=== PATIENT | male | born 1985 | race Caucasian/White ===

== ENCOUNTER 2018-07-03 05:58 | Outpatient (CLI) | payer BC ==
[~2018-07-03] VITALS: Ht 188 cm; Wt 114.9 kg
[~2018-07-03 05:58] MED LIST: AMLO5TAB2 PO; ANTARA PO; ATR20T PO; INSU100I11 SQ; INSU100I16 SQ; MAGN400C PO; MYCO250C4 PO; SLIDING SCALE; TACROLIMUS PO; VALS320T8 PO
[2018-07-03] MEDS ORDERED: OMEG-179 PO (13:29)
[2018-07-03] MEDS ORDERED: MULT-35 PO (13:29)
[2018-07-03] MEDS ORDERED: MYCO250C4 PO (13:29)
[2018-07-03] MEDS ORDERED: INSU100I14 SQ (13:29)
[2018-07-03] MEDS ORDERED: AMLO5TAB9 PO (13:29)
[2018-07-03] MEDS ORDERED: INSU100I29 SQ (13:29)
[2018-07-03] MEDS ORDERED: TACR1CAP8 PO (13:29)
[2018-07-03] MEDS ORDERED: POLY17PO6 PO (13:29)
[2018-07-03] MEDS ORDERED: ATOR40TA70 PO (13:29)
== END 2018-07-03 13:30 | disposition home or self-care (01) ==
LOC: PREOP 05:58
PROVIDERS: ATTEND Surgery
DX: Z01.818 Encounter for other preprocedural examination (principal)

== ENCOUNTER 2018-07-09 09:39 | Day surgery (SDC) | payer BC ==
[~2018-07-09] VITALS: Ht 188 cm; Wt 114.9 kg
[~2018-07-09 09:39] MED LIST changes: +AMLO5TAB9 PO; +ATOR40TA70 PO; +INSU100I14 SQ; +INSU100I29 SQ; +MULT-35 PO; +OMEG-179 PO; +POLY17PO6 PO; +TACR1CAP8 PO
--- OUTSIDE RECORDS SUMMARY | 2018-07-09 09:41 | XMS REPORT | Continuity of Care Document ---
Author Author [facility] Organization [facility] Address Unknown Phone Unavailable Allergies Active Description Code Type Severity Reaction Onset Reported/Identified Relationship to Patient Clinical Status Yes No Known Drug Allergies [id number] Drug Allergy Unknown N/A 07/03/2018 Medications There is no data. Problems Date Dx Coded Attending Type Code Diagnosis Diagnosed By 11/02/2017 MICHEAL LOUIS Ot 571.8 CHRONIC LIVER DIS NEC 11/02/2017 MICHEAL LOUIS RIGGING MAN Ot 599.70 HEMATURIA, UNSPECIFIED 11/02/2017 MICHEAL LOUIS RIGGING MAN Ot 789.04 ABDOMINAL PAIN, LEFT LOWER QUADRANT 11/02/2017 MICHEAL LOUIS RIGGING MAN Ot V42.0 KIDNEY TRANSPLANT STATUS 07/03/2018 ALEXANDRIA CORTES, MATTHEW Esposito Ot Z01.818 ENCOUNTER FOR OTHER PREPROCEDURAL EXAMIN 07/04/2018 ALEX[place]RI[place] CORTES, MATTHEW Esposito Ot Z01.818 ENCOUNTER FOR OTHER PREPROCEDURAL EXAMIN 07/05/2018 MICHEAL LOUIS Ot 571.8 CHRONIC LIVER DIS NEC 07/05/2018 MICHEAL OLUISP Ot 599.70 HEMATURIA, UNSPECIFIED 07/05/2018 MICHEAL LOUIS RIGGING MAN Ot 789.04 ABDOMINAL PAIN, LEFT LOWER QUADRANT 07/05/2018 MICHEAL LOUIS RIGGING MAN Ot V42.0 KIDNEY TRANSPLANT STATUS Procedures There is no data. Results There is no data. Encounters ACCT No. Visit Date/Time Discharge Status Pt. Type Provider Facility Loc./Unit Complaint [id number] 07/03/2018 05:58:00 07/03/2018 13:30:00 DIS Outpatient MATTHEW IBRAHIM MD [facility] PREOP EGD [id number] 07/30/2013 11:34:00 07/30/2013 23:59:59 CLS Outpatient MICHEAL LOUIS [facility] RAD ABD PAIN [id number] 07/09/2018 11:15:00 PEN Preadmit A[place]RI[place] CORTES, MATTHEW Esposito [facility] ENDO R10.13/K21.0 06/201607/03/2018 10:43:02 07/03/2018 23:59:59 CLS Outpatient Galina Smith
--- NOTE | 2018-07-09 09:50 | Conscious Sedation/ASA ---
Conscious Sedation Pre-Proced Time 09:50 ASA Score 2 For ASA 3 and 4: Consider anesthesia and medical clearance. Also, for patients with a history of failed moderate sedation consider anesthesia. Airway Lungs Heart ASA score ASA 1: a normal healthy patient ASA 2: a patient with a mild systemic disease (mid diabetes, controlled hypertension, obesity ASA 3: a patient with a severe systemic disease that limits activity (angina , COPD, prior Myocardial infarction) ASA 4: a patient with an incapacitating disease that is a constant threat to life (CHF, renal failure) ASA 5: a moribund patient not expected to survive 24 hrs. (ruptured aneurysm) ASA 6: a declared brain patient whose organs are being harvested. For emergent operations, add the letter E after the classification Mallampati Classification Grade 1 Sedation Plan Discussed options with patient/fam The patient is an appropriate candidate to undergo the planned procedure, sedation, and anesthesia. The patient immediately re-assessed prior to indication. MATTHEW IBRAHIM MD Jul 09, 2018 09:50
--- NOTE | 2018-07-09 09:50 | History & Physicial ---
History of Present Illness History of Present Illness Reason for visit/HPI To undergo an upper endoscopy to investigate epigastric pain and symptoms of GERD Date of Admission 07/09/18 Date Seen by a Provider: Jul 09, 2018 Time Seen by a Provider: 09:48 I consulted on this patient on 07/09/18 09:48 Attending Physician Matthew Stout MD Admitting Physician Galina Smith DO Consult Allergies and Home Medications Allergies Coded Allergies: No Known Drug Allergies (Unverified , 07/03/18) Home Medications Amlodipine Besylate 5 Mg Tablet, 5 MG PO DAILY, (Reported) Atorvastatin Calcium 40 Mg Tablet, 40 MG PO HS, (Reported) Insulin Aspart 300 Units/3 Ml Solution, 0-12 UNITS SQ AC, (Reported) Insulin Detemir 100 Unit/1 Ml Insuln.pen, 80 UNIT SQ BID, (Reported) Multivitamin 1 Each Tablet, 1 EACH PO DAILY, (Reported) Mycophenolate Mofetil 250 Mg Capsule, 1,000 MG PO BID, (Reported) [place]-3S/Dha/Epa/Fish Oil 1 Each Capsule, 1 EACH PO DAILY, (Reported) Polyethylene Glycol 3350 17 Gm Powd.pack, 17 GM PO DAILY, (Reported) Tacrolimus 1 Mg Capsule, 2 MG PO BID, (Reported) Patient Home Medication List Home Medication List Reviewed: Yes Past Mxongeq-Hbrook-Zgsxpc Hx Patient Social History Marrital Status: Employed/Student: employed 2nd Hand Smoke Exposure: No Recent Foreign Travel: No Contact w/other who traveled: No Recent Hopitalizations: No Immunizations Up To Date Date of Pneumonia Vaccine: Jun 12, 2008 Date of Influenza Vaccine: Mar 19, 2018 Seasonal Allergies Seasonal Allergies: No Surgeries Yes (KIDNEY TRANSPLANT 2009, LEFT KNEE SURGERY,SHOULDER) Respiratory No Cardiovascular Yes High Cholesterol, Hypertension Neurological No Reproductive System Hx Reproductive Disorders: No Sexually Transmitted Disease: No HIV/AIDS: No Genitourinary Yes (KIDNEY TRANSPLANT) Gastrointestinal Yes Gastroesophageal Reflux, Chronic Constipation Musculoskeletal No Endocrine History of Endocrine Disorders: Yes Endocrine Disorders: Diabetes, Insulin dep HEENT History of HEENT Disorders: No (GLASSES) Loss of Vision: Bilateral Hearing Impairment: Denies Cancer No Psychosocial History of Psychiatric Problem: No Integumentary History of Skin or Integumenta: No Blood Transfusions History of Blood Disorders: No Adverse Reaction to a Blood Tr: No (N/A) Review of Systems Constitutional: no symptoms reported EENTM: no symptoms reported Respiratory: no symptoms reported Cardiovascular: no symptoms reported Gastrointestinal: see HPI Genitourinary: no symptoms reported Skin: no symptoms reported Psychiatric/Neurological: No Symptoms Reported Physical Exam Vital Signs Capillary Refill : Height, Weight, BMI Height: 6'2.00" Weight: 253lbs. 4.0oz. 114.203811ql; 32.5 BMI Method: General Appearance: No Apparent Distress Neck: Normal Inspection Respiratory: Lungs Clear Cardiovascular: Regular Rate, Rhythm Gastrointestinal: Non Tender, Soft Neurologic/Psychiatric: Alert, Oriented x3 Skin: Warm/Dry Assessment/Plan Assessment and Plan Tillmon with epigastric pain and symptoms of reflux. For upper endoscopy. Admission Diagnosis Admission Status: Other (Outpt Proc) MATTHEW STOUT MD Jul 09, 2018 09:50
[2018-07-09] MEDS ORDERED: NS IV 500 ML 500 ML ONE (09:56)
[2018-07-09] MEDS ORDERED: NS IV 500 ML 500 ML IV PRN (10:19)
[2018-07-09 10:22] VITALS: BP 127/96
[2018-07-09] MEDS ORDERED: fentaNYL INJECTION 100 MCG/2 ML AMP ONE (10:29)
[2018-07-09] MEDS ORDERED: fentaNYL INJECTION 100 MCG/2 ML AMP IVP ONE (10:30)
[2018-07-09] MEDS ORDERED: HURRICAINE EXT TUBE (BENZOCAINE) XX PRN (10:30)
[2018-07-09] MEDS ORDERED: MIDAZOLAM 2 MG/2 ML (VERSED) VIAL ONE ×4 (10:30)
[2018-07-09] MEDS ORDERED: MIDAZOLAM 2 MG/2 ML (VERSED) VIAL IVP ONE (10:30)
[2018-07-09] MEDS ORDERED: HURRICAINE EXT TUBE (BENZOCAINE) ONE (10:30)
--- NOTE | 2018-07-09 11:10 | Endo Procedure Record ---
Endo Procedure Report Date of Procedure Last Colonoscopy: No Jul 09, 2018 Surgeon (s) MATTHEW IBRAHIM MD Post Procedure/Op Diagnosis hiatal hernia with grade 2 esophagitis 2 mm ulcer at the distal stomach Duodenitis Procedure Performed EGD with biopsy of gastric ulcer Description of Procedure Anesthesia Type: Conscious Sedation Specimen(s) collected/removed tissue from gastric ulcer Description of the Procedure Indication for the procedure: This gentleman came in for an upper endoscopy to evaluate epigastric pain and symptoms of reflux. Informed consent was obtained after reviewing the procedure in detail. Description of procedure: He was placed in left lateral decubitus position and his vital signs were monitored. Conscious sedation was achieved using Versed and fentanyl. The flexible gastroscope was then introduced down the esophagus, past the stomach, into the proximal duodenum. Findings: Esophagus: A long hiatal hernia with grade 2 esophagitis. There was no stricture. Stomach: A 2 mm ulcer with raised mucosa at the distal stomach. Biopsy was obtained from the edges of the ulcer. Duodenum: Changes of mild duodenitis were found along the first part He tolerated the procedure well and was taken back to the nursing area in a stable condition. Impression: Epigastric pain and symptoms of reflux disease. Grade 2 esophagitis. Gastric ulcer. Histology pending. Note: An ultrasound of the gallbladder has been requested as an outpatient to rule out gallstones. Copy Copies To 1: ELIF CAI XAVIER M MD Jul 09, 2018 11:10
--- NOTE | 2018-07-09 11:11 | Discharge Inst-Simple/Standard ---
Discharge Inst-Standard Discharge Medications New, Converted or Re-Newed RX: Other Patient Instructions/Follow Up Plan of Care/Instructions/FU: please call for Protonix 40 [place] daily for 30 days with 5 refills to his pharmacy. Please schedule a gallbladder ultrasound as an outpatient Activity as Tolerated: Yes Discharge Diet: ADA MATTHEW Gaytan MD Jul 09, 2018 11:11
[2018-07-09 11:35] VITALS: BP 122/71
[2018-07-09 12:05] VITALS: BP 138/98
[2018-07-09 12:22] VITALS: BP 138/98
== END 2018-07-09 12:15 | disposition home or self-care (01) ==
LOC: ENDO 09:39
PROVIDERS: ATTEND Surgery
DX: K21.0 Gastro-esophageal reflux disease with esophagitis (principal); K29.50 Unspecified chronic gastritis without bleeding; K25.9 Gastric ulcer, unspecified as acute or chronic, without hemorrhage or perforation; K29.80 Duodenitis without bleeding; K44.9 Diaphragmatic hernia without obstruction or gangrene; E78.00 Pure hypercholesterolemia, unspecified; I10 Essential (primary) hypertension; K59.09 Other constipation; E11.9 Type 2 diabetes mellitus without complications; Z79.4 Long term (current) use of insulin; Z79.899 Other long term (current) drug therapy

== ENCOUNTER → 2018-07-12 | Outpatient (CLI) | payer BC ==
--- NOTE | 2018-07-12 09:50 | Diagnostic Imaging Report ---
PROCEDURE: US Gallbladder. TECHNIQUE: Multiple real-time grayscale images were obtained over the right upper quadrant in various projections. INDICATION: Right upper quadrant pain. FINDINGS: The liver is normal in size without focal lesions. Common bile duct is not well visualized. There is no intrahepatic biliary ductal dilatation. There is no cholelithiasis, gallbladder wall thickening or pericholecystic fluid. Pancreas is largely obscured by bowel gas. There is atrophy of the right kidney. There is a right renal transplant in the pelvis. There is no ascites. IMPRESSION: Unremarkable right upper quadrant ultrasound apart from nonvisualization of the common bile duct likely due to bowel gas. Atrophy of right kidney with right renal transplant in the pelvis. Dictated by: Dictated on workstation # [id number]
== END ==
LOC: RAD 07:56
PROVIDERS: ATTEND Surgery
DX: N26.1 Atrophy of kidney (terminal) (principal); Z94.0 Kidney transplant status
CPT/HCPCS: 76705

== ENCOUNTER → 2018-09-24 | Outpatient (CLI) | payer BC ==
[2018-09-24 09:35] LABS: CALCIUM 10.7 MG/DL (8.5-10.1); CREATININE SERUM 1.84 MG/DL (0.60-1.30); POTASSIUM 4.1 MMOL/L (3.6-5.0)
== END ==
LOC: LAB 09:06
PROVIDERS: ATTEND Anesthesiology
DX: Z01.812 Encounter for preprocedural laboratory examination (principal)
CPT/HCPCS: 36415; 80048

== ENCOUNTER → 2019-04-12 | Outpatient (CLI) | payer BC ==
[2019-04-12 13:21] LABS: HEMOGLOBIN 16.4 G/DL (13.3-17.7); MEAN PLATELET VOLUME 11.6 FL (7.4-10.4); RED CELL DISTRIBUTION WIDTH 13.7 % (10.0-14.5); WHITE BLOOD COUNT 7.1 10^3/uL (4.3-11.0)
[2019-04-12 13:38] LABS: CALCIUM 9.7 MG/DL (8.5-10.1); CREATININE SERUM 2.2 MG/DL (0.60-1.30); MAGNESIUM 1.8 MG/DL (1.6-2.4); PHOSPHORUS 3.4 MG/DL (2.3-4.7); POTASSIUM 4.9 MMOL/L (3.6-5.0)
== END ==
LOC: LAB 12:21
PROVIDERS: ATTEND Internal Medicine Nephrology
DX: Z48.298 Encounter for aftercare following other organ transplant (principal); Z94.0 Kidney transplant status; Z94.83 Pancreas transplant status; Z79.899 Other long term (current) drug therapy
CPT/HCPCS: 36415; 80048; 83735; 84100; 85027

== ENCOUNTER → 2019-05-20 | Outpatient (CLI) | payer BC ==
[2019-05-20 15:57] LABS: BASOPHILS % (AUTO) 0 % (0-10); EOSINOPHILS # (AUTO) 0.1 10^3/uL (0.0-0.3); EOSINOPHILS % (AUTO) 1 % (0-10); HEMATOCRIT 44 % (40-54); HEMOGLOBIN 15.5 G/DL (13.3-17.7); LYMPHOCYTES # (AUTO) 1.4 X 10^3 (1.0-4.0); LYMPHOCYTES % (AUTO) 13 % (12-44); MEAN CORPUSCULAR HEMOGLOBIN 27 PG (25-34); MEAN CORPUSCULAR HGB CONC 35 G/DL (32-36); MEAN CORPUSCULAR VOLUME 78 FL (80-99); MEAN PLATELET VOLUME 11.6 FL (7.4-10.4); MONOCYTES # (AUTO) 0.8 X 10^3 (0.0-1.0); MONOCYTES % (AUTO) 7 % (0-12); NEUTROPHILS % (AUTO) 79 % (42-75); PLATELET COUNT 189 10^3/uL (130-400); RED CELL DISTRIBUTION WIDTH 13.3 % (10.0-14.5); WHITE BLOOD COUNT 11.3 10^3/uL (4.3-11.0)
[2019-05-20 16:16] LABS: CALCIUM 9.2 MG/DL (8.5-10.1); CREATININE SERUM 2.92 MG/DL (0.60-1.30); POTASSIUM 4.4 MMOL/L (3.6-5.0)
[2019-05-20 16:20] LABS: BILIRUBIN,URINE NEGATIVE (NEGATIVE); CLARITY,URINE CLEAR; COLOR,URINE YELLOW; GLUCOSE, URINE (UA) 1+ (NEGATIVE); KETONES,URINE NEGATIVE (NEGATIVE); LEUKOCYTE ESTERASE ,URINE NEGATIVE (NEGATIVE); NITRITE,URINE NEGATIVE (NEGATIVE); PROTEIN,URINE 3+ (NEGATIVE)
[2019-05-20 16:32] LABS: ERYTHROCYTE SEDIMENTATION RATE 3 MM/HR (0-15)
[2019-05-20 16:37] LABS: AMORPHOUS SEDIMENT,UR MOD AMOR URATES /LPF
[2019-05-20 16:45] LABS: BACTERIA,URINE FEW /HPF
== END ==
LOC: LAB 15:29
PROVIDERS: ATTEND Family Medicine
DX: R10.31 Right lower quadrant pain (principal)
CPT/HCPCS: 36415; 80048; 81000; 85025; 85652; 87088

== ENCOUNTER 2019-08-17 11:30 | Emergency (ER) | payer BC ==
[~2019-08-17] VITALS: Ht 182.8 cm; Wt 118.4 kg
--- NOTE | 2019-08-17 12:29 | Diagnostic Imaging Report ---
INDICATION: Pain and swelling COMPARISON: 08/16/2007 TECHNIQUE: 3 radiographs of the left foot dated 08/27/2019 FINDINGS: No acute fracture or dislocation. No destructive osseous process. Moderate degenerative changes of the 1st MTP joint are noted with joint space narrowing and slight sclerosis of articular surfaces without significant erosive changes. The Lisfranc joint is well aligned. No suspicious radiopaque foreign body. IMPRESSION: No acute osseous abnormality with scattered degenerative changes, greatest involving the 1st MTP joint. Dictated by: Dictated on workstation # [id number]
--- NOTE | 2019-08-17 12:35 | ED Lower Extremity ---
General Chief Complaint: Lower Extremity Stated Complaint: L FOOT PAIN /SWELLING Nursing Triage Note: PT AMB TO RM 8 WITH COMPLAINT OF LEFT FOOT PAIN AFTER STEPPING ON A ROCK MONDAY. Nursing Sepsis Screen: No Definite Risk Source: patient Exam Limitations: no limitations History of Present Illness Date Seen by Provider: Aug 17, 2019 Time Seen by Provider: 12:34 Initial Comments 34-year-old male patient presents with complaints of left foot pain after stepping on a rock on Monday and pain began Monday. Patient does have a history of gout and states this feels similar to his usual gout pain. Patient does have diabetes and states blood sugars have been ranging in the 130-140 range. Also states he has one kidney which is a transplant. Onset: other (Monday onset.) Severity: moderate Pain/Injury Location: left foot Method of Injury: other (see HPI) Modifying Factors: Worse With Movement, Worse With Other (ambulation) Allergies and Home Medications Allergies Coded Allergies: No Known Drug Allergies (Unverified , 07/03/18) Home Medications Amlodipine Besylate 5 Mg Tablet, 5 MG PO DAILY, (Reported) Atorvastatin Calcium 40 Mg Tablet, 40 MG PO HS, (Reported) Hydrocodone/Acetaminophen 1 Each Tablet, 1 TAB PO Q6H PRN for pain Prescribed by: MANOHAR AGUILAR on 08/17/19 1248 Insulin Aspart 300 Units/3 Ml Solution, 0-12 UNITS SQ AC, (Reported) Insulin Detemir 100 Unit/1 Ml Insuln.pen, 80 UNIT SQ BID, (Reported) Multivitamin 1 Each Tablet, 1 EACH PO DAILY, (Reported) Mycophenolate Mofetil 250 Mg Capsule, 1,000 MG PO BID, (Reported) [place]-3S/Dha/Epa/Fish Oil 1 Each Capsule, 1 EACH PO DAILY, (Reported) Polyethylene Glycol 3350 17 Gm Powd.pack, 17 GM PO DAILY, (Reported) Prednisone 20 Mg Tab, 20 MG PO BID Prescribed by: MANOHAR AGUILAR on 08/17/19 1248 Tacrolimus 1 Mg Capsule, 2 MG PO BID, (Reported) Patient Home Medication List Home Medication List Reviewed: Yes Review of Systems Constitutional: No chills, No fever, No malaise EENTM: no symptoms reported Respiratory: no symptoms reported Cardiovascular: no symptoms reported Musculoskeletal: see HPI, joint pain (left foot pain), joint swelling (left foot) Skin: no symptoms reported Psychiatric/Neurological: No Symptoms Reported All Other Systems Reviewed Negative Unless Noted: Yes (Negative excepted noted.) Past Wnmevhv-Dqayma-Tuauiz Hx Past Med/Social Hx: Reviewed Nursing Past Med/Soc Hx Patient Social History Alcohol Use: Denies Use Recreational Drug Use: No Smoking Status: Never a Smoker Type Used: Smokeless Tobacco 2nd Hand Smoke Exposure: No Recent Foreign Travel: No Contact w/Someone Who Travel: No Recent Infectious Disease Expo: No Recent Hopitalizations: No Immunizations Up To Date Tetanus Booster (TDap): Unknown Date of Pneumonia Vaccine: Jun 12, 2008 Date of Influenza Vaccine: Mar 19, 2018 Seasonal Allergies Seasonal Allergies: No Past Medical History Surgeries: Yes (KIDNEY TRANSPLANT 2010, LEFT KNEE SURGERY,SHOULDER) Respiratory: No Cardiac: Yes High Cholesterol, Hypertension Neurological: No Reproductive Disorders: No Sexually Transmitted Disease: No HIV/AIDS: No Genitourinary: Yes (KIDNEY TRANSPLANT) Gastrointestinal: Yes Gastroesophageal Reflux, Chronic Constipation Musculoskeletal: No Endocrine: Yes Diabetes, Insulin dep HEENT: No (GLASSES) Loss of Vision: Bilateral Hearing Impairment: Denies Cancer: No Psychosocial: No Integumentary: No Blood Disorders: No Adverse Reaction/Blood Tranf: No (N/A) Family Medical History Reviewed Nursing Family Hx No Pertinent Family Hx Physical Exam Vital Signs Vital Signs - First Documented 08/17/19 12:08 Temp 35.5 Pulse 84 Resp 18 B/P (MAP) 172/88 (116) Pulse Ox 96 O2 Delivery Room Air Capillary Refill : Less Than 3 Seconds Height, Weight, BMI Height: 6'2.00" Weight: 253lbs. 4.0oz. 114.546173mb; 35.00 BMI Method: General Appearance: WD/WN, no apparent distress Cardiovascular: normal peripheral pulses, regular rate, rhythm, no murmur Respiratory: lungs clear, normal breath sounds, no respiratory distress, no accessory muscle use Legs: bilateral leg non-tender, bilateral leg normal inspection, bilateral leg normal range of motion, bilateral leg no evidence of injury Knees: bilateral knee non-tender, bilateral knee normal inspection, bilateral knee normal range of motion, bilateral knee no evidence of injury; left knee other (well-healed surgical scar to the left anterior knee consistent with past surgical history) Ankles: bilateral ankle non-tender, bilateral ankle normal inspection, bilateral ankle normal range of motion, bilateral ankle no evidence of injury Feet: right foot non-tender, right foot normal inspection; bilateral foot normal range of motion, bilateral foot no evidence of injury; left foot bone tenderness (dorsal left mid foot tenderness), left foot soft tissue tenderness (dorsal left mid foot tenderness), left foot swelling (mild swelling to the dorsal left mid foot) Neurologic/Tendon: normal sensation, normal motor functions, normal tendon functions, responds to pain, no evidence tendon injury Neurologic/Psychiatric: no motor/sensory deficits, alert, normal mood/affect, oriented x 3 Skin: normal color, warm/dry; No cyanosis, No cool, No diaphoresis, No ecchymosis, No mottled Progress/Results/Core Measures Results/Orders My Orders Orders - MANOHAR AGUILAR Foot, Left, 3 Views (08/17/19 12:06) Vital Signs/I&O 08/17/19 12:08 Temp 35.5 Pulse 84 Resp 18 B/P (MAP) 172/88 (116) Pulse Ox 96 O2 Delivery Room Air Blood Pressure Mean: 116 Diagnostic Imaging Diagonstic Imaging: Xray Plain Films/CT/US/NM/MRI: other (foot) Comments FOOT, LEFT, 3 VIEWS INDICATION: Pain and swelling COMPARISON: 08/16/2007 TECHNIQUE: 3 radiographs of the left foot dated 08/27/2019 FINDINGS: No acute fracture or dislocation. No destructive osseous process. Moderate degenerative changes of the 1st MTP joint are noted with joint space narrowing and slight sclerosis of articular surfaces without significant erosive changes. The Lisfranc joint is well aligned. No suspicious radiopaque foreign body. IMPRESSION: No acute osseous abnormality with scattered degenerative changes, greatest involving the 1st MTP joint. Dictated on workstation # [id number] Reviewed: Reviewed by Me (radiology report reviewed by me) Departure Communication (Admissions) Patient seen and evaluated. Plain radiographs of the left foot are negative for acute findings. Patient is driving himself home. We will plan for discharge with prescriptions for prednisone and hydrocodone. Patient to follow-up with his primary care provider if no improvement in symptoms. Impression Primary Impression: Gout of left foot Qualified Codes: M10.472 - Other secondary gout, left ankle and foot Disposition: HOME, SELF-CARE Condition: Improved Departure-Patient Inst. Decision time for Depature: 12:46 Referrals: ELIF CAI DO (PCP/Family) Primary Care Physician Patient Instructions: Gout (DC) Add. Discharge Instructions: All discharge instructions reviewed with patient and/or family. Voiced understanding. Medications as instructed. Tylenol pjhs-[id number]-gymwruz as directed for pain. Elevate the left foot on pillows. Ice pack for 20 minute intervals as needed. Monitor your blood sugars closely. Follow-up with Dr. Cai if no improvement in symptoms. Return to the emergency department for worsened symptoms or any other concerns. Scripts Hydrocodone/Acetaminophen (Hydrocodone/Acetaminophen 5 MG/325 MG TAB) 1 Each Tablet 1 TAB PO Q6H PRN for pain MDD 10 TABS, #10 TAB 0 Refills Prov: MANOHAR AGUILAR 08/17/19 Prednisone (Prednisone) 20 Mg Tab 20 MG PO BID, #10 TAB 0 Refills Prov: MANOHAR AGUILAR 08/17/19 Images Extremities-Lower 1 - Swelling, Tenderness MANOHAR AGUILAR Aug 17, 2019 12:35
[2019-08-17] MEDS ORDERED: PRD20T PO (12:48)
[2019-08-17] MEDS ORDERED: HYDR-4226 PO (12:48)
[2019-08-17 13:02] VITALS: BP 155/87
--- OUTSIDE RECORDS SUMMARY | 2019-08-21 00:05 | XMS REPORT | CCD ---
Author Author Cuauhtemoc Smith D.O. Organization [facility] Address [address] [place] [address] Phone Care Team Providers Care Gis Analyst Name Role Phone [facility] D.O[facility] PP Unavailable CCM Unavailable Summary Purpose Interface Exchange Insurance Providers Payer name Policy type / Coverage type Covered alliance party ID Effective Begin Date Effective End Date Blue Cross Blue Shield Blue Cross/Blue Shield [id number] 2017 Unknown Family History Family History data not found Social History Social History Element Codes Description Effective Dates Tobacco history SNOMED CT: 543659905 Currently uses smokeless to bacco 06/14/2011 Allergies, Adverse Reactions, Alerts Substance Reaction Codes Entered Date Inactivated Date Status * NO KNOWN ENVIRONMENTAL ALLERGIES Unknown 12/02/2010 N o Inactive Date Active * NO KNOWN FOOD ALLERGIES Unknown 12/02/2010 No Inactiv e Date Active * NO KNOWN DRUG ALLERGIES Unknown 12/02/2010 No Inactiv e Date Active Problems Condition Codes Effective Dates Condition Status Diarrhea ICD-9: 787.91 ICD-10: R19.7 05/20/2019 Active Right lower quadrant pain ICD-9: 789.03 ICD-10: R10.31 02/06/2018 Active Chronic kidney disease, stage 3 (moderate) ICD-9: 585. 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, 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 ICD-10: E10.9 06/19/2016 Active Essential (primary) hypertension ICD-9: 401.9 ICD-10: I10 10/31/2013 Active Kidney transplant status ICD-9: V42.0 ICD-10: Z94.0 08/24/2018 Active Mixed hyperlipidemia ICD-9: 272.4 ICD-10: E78.2 07/17/2014 Active Other specified hypothyroidism ICD-9: 244.9 ICD-10: E03.8 02/19/2019 Active Encounter for aftercare following other organ transpla nt ICD-9: V58.44 ICD-10: Z48.298 08/24/2018 Active Other penitentiary (current) drug therapy ICD-9: V58.69 ICD-10: Z79.899 08/24/2018 Active 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 08/24/2018 Active Type 2 diabetes mellitus with other circulatory compli cations ICD-9: 250.80 ICD-10: E11.59 04/05/2017 Active Type 2 diabetes mellitus with diabetic neuropathy, uns pecified ICD-9: 250.60 ICD-10: E11.40 06/23/2015 Active Type 2 diabetes mellitus with hyperglycemia ICD-9: 250 .02 ICD-10: E11.65 05/30/2012 Active Epigastric pain ICD-9: 789.06 ICD-10: R10.13 06/26/2018 Active Slow transit constipation ICD-9: 564.01 ICD-10: K59.01 06/26/2018 Active Abrasion of right hand, initial encounter ICD-9: 914.0 ICD-10: S60.511A 07/27/2017 Active Encounter for general adult medical examination with a bnormal findings ICD-9: V70.0 ICD-10: Z00.01 07/27/2017 Active Tinea pedis ICD-9: 110.4 ICD-10: B35.3 04/05/2017 Active Urinary tract infection, site not specified ICD-9: 599 .0 ICD-10: N39.0 02/15/2016 Active Cramp and spasm ICD-9: 729.82 ICD-10: R25.2 12/02/2015 Active Hematuria, unspecified ICD-9: 599.70 ICD-10: R31.9 07/30/2013 Active Acute sinusitis, unspecified ICD-9: 461.9 ICD-10: J01.90 06/11/2015 Active Otitis media, unspecified, bilateral ICD-9: 382.9 ICD-10: H66.93 06/10/2015 Active 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I ICD-9: 250.00 09/03/2014 Acti ve HYPOTHYROIDISM ICD-9: 244.9 09/03/2014 Active HYPERLIPIDEMIA NEC/NOS ICD-9: 272.4 07/17/2014 Active KIDNEY TRANSPLANT STATUS ICD-9: V42.0 07/17/2014 Active 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 ICD-9: 250.01 10/31/2013 Activ e HYPERTENSION ICD-9: 401.9 10/31/2013 Active Abdominal pain, acute, right lower quadrant ICD-9: 789.03 07/13 Active HEMATURIA NOS ICD-9: 599.70 07/30/2013 Active Anticipatory grieving ICD-9: 309.0 04/29/2013 Active ONYCHOMYCOSIS ICD-9: 110.1 01/01/2013 Active Paronychia ICD-9: 681.9 01/01/2013 Active 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I, UNCONTROLLED ICD-9: 250.02 2011 Active VISUAL DISTURBANCE ICD-9: 368.9 05/21/2012 Active DIZZINESS/VERTIGO ICD-9: 780.4 09/21/2011 Active CEPHALGIA ICD-9: 784.0 06/14/2011 Active PHARYNGITIS, ACUTE ICD-9: 462 03/03/2011 Active Hypertension Unknown 01/27/2011 Active SINUSITIS, ACUTE ICD-9: 461.9 01/27/2011 Active Hyperlipidemia Unknown 12/02/2010 Active Kidney disease Unknown 12/02/2010 Active Medications Medication Codes Instructions Start Date Stop Date Status Fill Instructions Pen Needle 31 gauge x 5/16" RxNorm: DIRECTED 07/29/2019 0 Active Levemir FlexTouch U-100 Insulin 100 unit/mL (3 mL) sub cutaneous pen RxNorm: 227761 INJECT 90 UNITS SUBCUTANEOUSLY TWICE DAILY 07/29/2019 12/11/2019 Active Levemir FlexTouch U-100 Insulin 100 unit/mL (3 mL) sub cutaneous pen RxNorm: 843294 INJECT 90 UNITS SUBCUTANEOUSLY TWICE DAILY 06/25/201907/28 Inactive Prograf 0.5 mg capsule RxNorm: 507896 4 Capsule(s) Oral two skinny es a day 05/20/2019 No Stop Date Active pantoprazole 40 mg tablet,delayed release RxNorm: 040041 1 Tablet(s) Oral QD for stomach 05/20/2019 09/17/2019 Active CellCept 500 mg tablet RxNorm: 925021 2 Tablet(s) Oral two time s a day 05/20/2019 No Stop Date Active cephalexin 500 mg capsule RxNorm: 210388 1 Capsule(s) Oral thre e times a day 05/20/2019 05/19/2019 Inactive cephalexin 500 mg capsule RxNorm: 171245 1 Capsule(s) Oral thre e times a day 05/20/2019 05/26/2019 Inactive Levemir FlexTouch U-100 Insulin 100 unit/mL (3 mL) sub cutaneous pen RxNorm: 373572 INJECT 90 UNITS SUBCUTANEOUSLY TWICE DAILY 05/11/201906/24 Inactive Levemir FlexTouch U-100 Insulin 100 unit/mL (3 mL) sub cutaneous pen RxNorm: 476227 100 Unit(s) Subcutaneous two times a day 03/04/2019 06/02/2019 Inactive Levemir FlexTouch U-100 Insulin 100 unit/mL (3 mL) sub cutaneous pen RxNorm: 154208 90 Unit(s) SQ BID 100 Unit(s) Subcutaneous two times a day 0 03/04/2019 03/04/2019 Inactive amlodipine 5 mg tablet RxNorm: 940343 1 Tablet(s) PO QD for BP 02/1008/24/2019 Active atorvastatin 80 mg tablet RxNorm: 150814 1 Tablet(s) PO QD 02/27/2005/26/2019 Inactive Novolog Flexpen U-100 Insulin aspart 100 unit/mL (3 mL ) subcutaneous RxNorm: 5059420 INJECT SUBCUTANEOUSLY NEEDED PER SLIDING SCALE 02/22/2019 No Stop Date Active Levemir FlexTouch U-100 Insulin 100 unit/mL (3 mL) sub cutaneous pen RxNorm: 745133 90 Unit(s) SQ BID 01/08/2019 03/03/2019 Inactive Levemir FlexTouch U-100 Insulin 100 unit/mL (3 mL) sub cutaneous pen RxNorm: 478147 90 Unit(s) SQ BID 12/04/2018 12/03/2018 Inactive Levemir FlexTouch U-100 Insulin 100 unit/mL (3 mL) sub cutaneous pen RxNorm: 255736 90 Unit(s) SQ BID 12/04/2018 01/07/2019 Inactive Levemir FlexTouch U-100 Insulin 100 unit/mL (3 mL) sub cutaneous pen RxNorm: 402812 70 Unit(s) SQ BID 10/26/2018 12/04/2018 Inactive Levemir FlexTouch U-100 Insulin 100 unit/mL (3 mL) sub cutaneous pen RxNorm: 847453 GIVE 90 UNITS SUBCUTANEOUSLY TWICE DAILY 10/08/2018 10/26/2018 Inactive Levemir FlexTouch U-100 Insulin 100 unit/mL (3 mL) sub cutaneous pen RxNorm: 083659 90 Unit(s) SQ BID 07/30/2018 10/07/2018 Inactive Levemir FlexTouch U-100 Insulin 100 unit/mL (3 mL) sub cutaneous pen RxNorm: 933859 90 Unit(s) SQ BID 07/06/2018 07/29/2018 Inactive Pen Needle 31 gauge x 5/16" RxNorm: USE DIRECTED 03/21/2018 Inactive Levemir FlexTouch U-100 Insulin 100 unit/mL (3 mL) sub cutaneous pen RxNorm: 525790 80 Unit(s) SQ BID 02/15/2018 07/06/2018 Inactive Levemir FlexTouch U-100 Insulin 100 unit/mL (3 mL) sub cutaneous pen RxNorm: 697489 INJECT 105 UNITS SUBCUTANEOUSLY IN THE EVENING 01/24/2018 0 02/15/2018 Inactive Levemir FlexTouch U-100 Insulin 100 unit/mL (3 mL) sub cutaneous pen RxNorm: 755370 INJECT 105 UNITS SUBCUTANEOUSLY IN THE EVENING 12/26/2017 0 01/23/2018 Inactive Novolog Flexpen U-100 Insulin aspart 100 unit/mL (3 mL ) subcutaneous RxNorm: 0609655 INJECT SUBCUTANEOUSLY NEEDED PER SLIDING SCALE 12/25/2017 02/21/2019 Inactive Levemir FlexTouch U-100 Insulin 100 unit/mL (3 mL) sub cutaneous pen RxNorm: 234789 70 Unit(s) SQ BID 11/03/2017 11/03/2017 Inactive Levemir FlexTouch U-100 Insulin 100 unit/mL (3 mL) sub cutaneous pen RxNorm: 721965 105 Unit(s) SQ QPM 11/02/2017 11/02/2017 Inactive Levemir FlexTouch U-100 Insulin 100 unit/mL (3 mL) sub cutaneous pen RxNorm: 264955 105 Unit(s) SQ QPM Needs updated labs 11/01/2017 11/01/2017 Amy ctive Levemir FlexTouch U-100 Insulin 100 unit/mL (3 mL) sub cutaneous pen RxNorm: 325448 Unit(s) 105 Unit(s) SQ QPM 09/18/2017 09/18/2017 Inactive Levemir FlexTouch U-100 Insulin 100 unit/mL (3 mL) sub cutaneous pen RxNorm: 053017 105 Unit(s) SQ QPM 08/07/2017 09/18/2017 Inactive cephalexin 500 mg capsule RxNorm: 700744 1 Capsule(s) PO BID 201708/02/2017 Inactive Levemir FlexTouch U-100 Insulin 100 unit/mL (3 mL) sub cutaneous pen RxNorm: 542655 105 Unit(s) SQ QPM 06/07/2017 06/07/2017 Inactive Levemir FlexTouch 100 unit/mL (3 mL) subcutaneous insulin pe n RxNorm: 258385 105 Unit(s) SQ QPM 05/11/2017 06/07/2017 Inactive Lipitor 40 mg tablet RxNorm: 593272 1 Tablet(s) PO QD 04/05/201703/13 Inactive nystatin 100,000 unit/gram topical ointment RxNorm: 656487 1 Gr am(s) TOP BID 04/05/2017 05/02/2017 Inactive Lipitor 40 mg tablet RxNorm: 925860 1.5 Tablet(s) PO QD 04/05/2017 Inactive Diovan 320 mg tablet RxNorm: 660823 1 Tablet(s) PO QD 04/05/201702/10 Inactive Levemir FlexTouch 100 unit/mL (3 mL) subcutaneous insulin pe n RxNorm: 027142 105 Unit(s) SQ QPM 04/05/2017 04/05/2017 Inactive Levemir FlexTouch 100 unit/mL (3 mL) subcutaneous insulin pe n RxNorm: 064438 90 Unit(s) SQ QPM LAST REFILL UNTIL LABS AND APPOINTMENT!!!! 04/05/2017 Inactive Novolog Flexpen 100 unit/mL subcutaneous RxNorm: 1477075 Unit(s) INJECT SUBCUTANEOUSLY NEEDED PER SLIDING SCALE---NEEDS UPDATED LABS 03/07/2017 12/03/2018 Inactive Levemir FlexTouch 100 unit/mL (3 mL) subcutaneous insulin pe n RxNorm: 010400 90 Unit(s) SQ QPM LAST REFILL UNTIL LABS AND APPOINTMENT!!!! 02/17/2017 Inactive Levemir FlexTouch 100 unit/mL (3 mL) subcutaneous insulin pe n RxNorm: 169261 90 Unit(s) SQ QPM NEEDS FASTING LABS AND APPOINTMENT BEFORE FURTHER REFILLS 12/22/2016 02/17/2017 Inactive Novolog Flexpen U-100 Insulin aspart 100 unit/mL subcutaneou s RxNorm: 6036713 Unit(s) INJECT SUBCUTANEOUSLY NEEDED PER SLIDING SCALE---NEEDS UPDATED LABS 11/28/2016 03/07/2017 Inactive Levemir FlexTouch 100 unit/mL (3 mL) subcutaneous insulin pe n RxNorm: 135964 90 Unit(s) VAG QPM 11/08/2016 12/22/2016 Inactive Levemir FlexTouch 100 unit/mL (3 mL) subcutaneous insulin pe n RxNorm: 822646 90 Unit(s) VAG QPM 11/08/2016 12/21/2016 Inactive Levemir FlexTouch 100 unit/mL (3 mL) subcutaneous insulin pe n RxNorm: 021780 80 Unit(s) VAG QPM 09/05/2016 11/08/2016 Inactive Levemir FlexTouch 100 unit/mL (3 mL) subcutaneous insulin pe n RxNorm: 930251 85 Unit(s) SQ QD 07/22/2016 09/05/2016 Inactive Levemir FlexTouch 100 unit/mL (3 mL) subcutaneous insulin pe n RxNorm: 030471 85 Unit(s) SQ QD 07/04/2016 07/21/2016 Inactive Levemir FlexTouch 100 unit/mL (3 mL) subcutaneous insulin pe n RxNorm: 760942 85 Unit(s) SQ QD 06/14/2016 06/19/2016 Inactive Levemir FlexTouch 100 unit/mL (3 mL) subcutaneous insulin pe n RxNorm: 598378 85 Unit(s) SQ QD 05/03/2016 05/22/2016 Inactive Levemir FlexTouch 100 unit/mL (3 mL) subcutaneous insulin pe n RxNorm: 639351 85 Unit(s) SQ QD 05/03/2016 05/02/2016 Inactive Levemir FlexTouch 100 unit/mL (3 mL) subcutaneous insulin pe n RxNorm: 120915 85 Unit(s) SQ QD 03/14/2016 04/22/2016 Inactive cefuroxime axetil 250 mg tablet RxNorm: 943629 1 Tablet(s) PO BID 0 02/16/2016 02/25/2016 Inactive Levemir FlexTouch 100 unit/mL (3 mL) subcutaneous insulin pe n RxNorm: 384551 85 Unit(s) SQ QD 02/03/2016 03/13/2016 Inactive Levemir FlexTouch 100 unit/mL (3 mL) subcutaneous insulin pe n RxNorm: 404260 85 Unit(s) SQ QD 12/07/2015 02/02/2016 Inactive Pen Needle 31 gauge x 5/16" RxNorm: USE DIRECTED 11/19/201510/2015 Inactive Levemir FlexTouch 100 unit/mL (3 mL) subcutaneous insulin pe n RxNorm: 366933 INJECT 75 UNITS SUBCUTANEOUSLY ONCE DAILY; NEED LABS AND APPT 10/06/2015 12/04/2015 Inactive Novolog Flexpen 100 unit/mL subcutaneous RxNorm: 7335465 INJECT SUBCUTANEOUSLY NEEDED PER SLIDING SCALE 09/15/2015 11/28/2016 Inactive Levemir FlexTouch 100 unit/mL (3 mL) subcutaneous insulin pe n RxNorm: 596693 75 Unit(s) SQ QD Needs lab and appointment 07/13/2015 10/05/2015 Inactive Lyrica 75 mg capsule RxNorm: 729320 1 Capsule(s) PO BID 06/24/2015 Inactive Levemir FlexTouch 100 unit/mL (3 mL) subcutaneous insulin pe n RxNorm: 860047 75 Unit(s) SQ QD Needs lab and appointment 06/23/2015 07/12/2015 Inactive Novolog Flexpen 100 unit/mL subcutaneous RxNorm: 0705455 Unit(s) SQ as needed Sliding scale 06/15/2015 09/14/2015 Inactive Flonase Allergy Relief 50 mcg/actuation nasal spray,suspensi on RxNorm: 2 [place] NASAL QHS 06/11/2015 12/02/2015 Inactive prednisone 20 mg tablet RxNorm: 676745 1 Tablet(s) PO T ID for 3 days then 1 po BID for 3 days then one daily for 3 days 06/11/2015 12/02/2015 Inactiv e cefdinir 300 mg capsule RxNorm: 231331 2 Capsule(s) PO QD 06/11/2015 06/24/2015 Inactive Levemir FlexTouch 100 unit/mL (3 mL) subcutaneous insulin pe n RxNorm: 354795 75 Unit(s) SQ QD Needs lab and appointment 05/29/2015 06/22/2015 Inactive Novolog 100 unit/mL subcutaneous solution RxNorm: 995267 Unit(s) SQ Inject as directed using sliding scale B 05/29/2015 12/03/2018 Inactive Levemir Flexpen 100 unit/mL (3 mL) solution subcutaneo us insulin pen RxNorm: 880466 INJECT 75 UNITS SUBCUTANEOUSLY EVERY DAY 05/11/2015 05/29/2015 Inactive Levemir FlexTouch 100 unit/mL (3 mL) subcutaneous insulin pe n RxNorm: 050957 75 Unit(s) SQ QHS 03/30/2015 12/03/2018 Inactive Levemir FlexTouch 100 unit/mL (3 mL) subcutaneous insulin pe n RxNorm: 607092 75 Unit(s) SQ QHS 03/09/2015 03/29/2015 Inactive Contour Test Strips RxNorm: Miscellaneous 01/27/2015 No Stop Date Ac tive Novolog 100 unit/mL subcutaneous solution RxNorm: 516094 Unit(s) SQ Inject as directed using sliding scale B 01/27/2015 05/29/2015 Inactive Levemir Flexpen 100 unit/mL (3 mL) solution subcutaneo us insulin pen RxNorm: 736632 INJECT 75 UNITS SUBCUTANEOUSLY EVERY DAY 11/05/2014 03/09/2015 Inactive Levemir Flexpen 100 unit/mL (3 mL) solution subcutaneo us insulin pen RxNorm: 856180 INJECT 75 UNITS SUBCUTANEOUSLY EVERY DAY 08/13/2014 10/31/2014 Inactive Novolog 100 unit/mL subcutaneous solution RxNorm: 545342 Unit(s) SQ Inject as directed using sliding scale B 07/15/2014 01/26/2015 Inactive Apidra SoloStar 100 unit/mL subcutaneous insulin pen RxNorm: 107656 Unit(s) SQ INJECT DIRECTED USING SLIDING SCALE B 07/11/2014 07/14/2014 Inactiv e Diovan 320 mg tablet RxNorm: 241976 1 Tablet(s) PO QD 06/10/201405/13 Inactive Apidra SoloStar 100 unit/mL subcutaneous insulin pen RxNorm: 432058 Unit(s) SQ INJECT DIRECTED USING SLIDING SCALE B 04/18/2014 07/10/2014 Inactiv e Levemir Flexpen 100 unit/mL (3 mL) solution subcutaneo us insulin pen RxNorm: 131537 Unit(s) SQ INJECT 75 UNITS SUBCUTANEOUSLY EVERY DAY 02/29/20 14 02/27/2014 Inactive [SAVINGS FOR UNINSURED PATIE NTS -- BIN:[id number], PCN: [id number], Group: [id number], ID# [id number], Process claim through [employer], for questions: . THIS IS NOT INSURANCE.] Apidra SoloStar 100 unit/mL subcutaneous insulin pen RxNorm: 551219 Unit(s) SQ INJECT DIRECTED USING SLIDING SCALE B 09/05/2013 04/17/2014 Inactiv e Pen Needle 31 gauge x 5/16" RxNorm: Miscellaneou s USE DIRECTED WITH LEVEMIR AND APIDRA 08/23/2013 11/18/2015 Inactive Prograf 1 mg capsule RxNorm: 011895 2 Capsule(s) PO BID Generic OK to fill 08/21/2013 05/19/2019 Inactive Diovan 320 mg tablet RxNorm: 179642 1 Tablet(s) PO QD 05/30/201305/12 Inactive fluoxetine 20 mg tablet RxNorm: 092841 1 Tablet(s) PO QAM 05/30/2013 07/31/2013 Inactive fluoxetine 20 mg tablet RxNorm: 408351 1 Tablet(s) PO QAM 04/29/2013 05/29/2013 Inactive amlodipine 5 mg tablet RxNorm: 897378 1 Tablet(s) PO QD 04/29/2013 Inactive ketoconazole 2 % topical cream RxNorm: 926112 Application TOP B ID for 2-4wks 04/29/2013 05/12/2013 Inactive Diovan 320 mg tablet RxNorm: 629402 1 Tablet(s) PO QD 04/29/201305/14 Inactive Apidra SoloStar 100 unit/mL subcutaneous insulin pen RxNorm: 956211 Unit(s) SQ Sliding Scale B 02/19/2013 09/05/2013 Inactive Levemir Flexpen 100 unit/mL (3 mL) solution subcutaneo us insulin pen RxNorm: 126467 Insulin Pen SQ INJECT 75 UNITS SUBCUTANEOUSLY EVERY DAY 01/1002/28/2014 Inactive Septra DS 800 mg-160 mg tablet RxNorm: 870609 1 Tablet(s) PO BI D antibiotic 01/01/2013 01/07/2013 Inactive ketoconazole 2 % topical cream RxNorm: 715937 1 Application TOP BID 01/01/2013 01/14/2013 Inactive Levemir Flexpen 100 unit/mL (3 mL) Sub-Q Insulin Pen RxNorm: 296569 Unit(s) SQ INJECT 75 UNITS SUB-Q ONCE A DAY 12/07/2012 No Stop Date Active Levemir Flexpen 100 unit/mL (3 mL) Sub-Q Insulin Pen RxNorm: 641719 Unit(s) SQ INJECT 75 UNITS SUB-Q ONCE A DAY 10/22/2012 12/07/2012 Inactive Levemir Flexpen 100 unit/mL (3 mL) Sub-Q Insulin Pen RxNorm: 795644 75 Unit(s) SQ QHS 08/20/2012 10/22/2012 Inactive Diovan 320 mg tablet RxNorm: 427096 1 Tablet(s) PO QD 07/30/201204/12 Inactive Levemir Flexpen 100 unit/mL (3 mL) Sub-Q Insulin Pen RxNorm: 151367 Insulin Pen SQ INJECT 75 UNITS SUB-Q ONCE A DAY 07/30/2012 10/21/2012 Inactive Levemir Flexpen 100 unit/mL (3 mL) Sub-Q Insulin Pen RxNorm: 856022 75 Unit(s) SQ QHS 07/30/2012 08/19/2012 Inactive Levemir Flexpen 100 unit/mL (3 mL) Sub-Q Insulin Pen RxNorm: 187621 75 Unit(s) SQ QHS 07/30/2012 07/29/2012 Inactive Diovan 320 mg tablet RxNorm: 685116 1 Tablet(s) PO QD 06/21/201202/2013 Inactive Diovan 320 mg tablet RxNorm: 344496 1 Tablet(s) PO QD 06/21/201202/2013 Inactive Diovan 320 mg tablet RxNorm: 495687 1 Tablet(s) PO QD 06/21/201207/13 Inactive CellCept 250 mg capsule RxNorm: 792829 4 Capsule(s) PO BID 06/14/19 13 05/19/2019 Inactive Prograf 1 mg capsule RxNorm: 440881 2 Capsule(s) PO BID Generic OK to fill 06/14/2012 06/20/2012 Inactive Apidra SoloStar 100 unit/mL Sub-Q Insulin Pen RxNorm: 745150 Unit(s) SQ Sliding Scale B 06/13/2012 12/03/2018 Inactive Levemir Flexpen 100 unit/mL (3 mL) Sub-Q Insulin Pen RxNorm: 405984 75 Unit(s) SQ QD 06/13/2012 No Stop Date Active Apidra SoloStar 100 unit/mL Sub-Q Insulin Pen RxNorm: 364444 Unit(s) SQ Sliding Scale B 06/13/2012 No Stop Date Active One Touch Delica Lancets RxNorm: Miscellaneous 06/13/2012 04/04/2017 Inactive Lipitor 40 mg tablet RxNorm: 881290 1 Tablet(s) PO QD 05/30/201208/10 Inactive Diovan 320 mg tablet RxNorm: 561433 1 Tablet(s) PO QD 05/30/201202/2013 Inactive Tricor 145 mg tablet RxNorm: 832399 1 Tablet(s) PO QD 05/30/201208/10 Inactive Lipitor 20 mg Tab RxNorm: 372417 1 Tablet(s) PO QD 09/12/2011 012 Inactive Synthroid 50 mcg Tab RxNorm: 580483 1 Tablet(s) PO QD 09/12/201111/11 Inactive Diovan 320 mg tablet RxNorm: 491489 1 Tablet(s) PO QD 09/12/201102/11 Inactive amlodipine 5 mg tablet RxNorm: 102599 1 Tablet(s) PO QD 09/12/2011 Inactive Diovan 320 mg Tab RxNorm: 630074 1 Tablet(s) PO QD 06/14/2011 012 Inactive Diovan 160 mg Tab RxNorm: 234270 1 Tablet(s) PO QD 03/03/2011 012 Inactive cefdinir 300 mg Cap RxNorm: 433436 2 Capsule(s) PO QD 01/27/201101/11 Inactive Synthroid 50 mcg Tab RxNorm: 883149 1 Tablet(s) PO QD 12/02/201001/11 Inactive Multivitamin & Mineral Formula Tab RxNorm: 1 Tablet(s) PO QD No St art Active Miralax 17 gram/dose oral powder RxNorm: 850719 PO BID in 6-8 o unces of water No Start Date Active Tylenol Extra Strength 500 mg tablet RxNorm: 258003 Tablet(s) P O as needed No Start Date Active Tricor Oral RxNorm: Oral No Start Date 05/29/2012 Inactive MagOx 400 mg tablet RxNorm: 612246 1 Tablet(s) PO QD No Start Date Inactive sodium bicarbonate Oral RxNorm: Oral No Start Date 06/19/2016 I nactive Fish Oil 1,000 mg capsule RxNorm: 1 Capsule(s) PO QD No Start Date 04/04/2017 Inactive Novofine Misc RxNorm: Miscellaneous No Start Date 06/12/2012 Inactiv e Percocet 5 mg-325 mg tablet RxNorm: 4782796 Tablet(s) PO as need ed Dr Parson No Start Date 04/04/2017 Inactive Contour Test Strips RxNorm: miscellaneous No Start Date 01/26/2015 I nactive Prograf 1 mg capsule RxNorm: 638344 2 Capsule(s) PO BID No Start Da te 06/13/2012 Inactive Zantac 150 mg Tab RxNorm: 231942 Tablet(s) PO PRN No Start Date 12/01 Inactive Levemir FlexTouch 100 unit/mL (3 mL) subcutaneous insulin pe n RxNorm: 857283 75 Unit(s) SQ QHS No Start Date 03/08/2015 Inactive CellCept 250 mg capsule RxNorm: 745353 4 Capsule(s) PO BID No Start Date 06/13/2012 Inactive Novolog 100 unit/mL subcutaneous solution RxNorm: 671987 Unit(s) SQ Inject as directed using sliding scale B No Start Date 07/14/2014 Inactive Novolog Flexpen 100 unit/mL subcutaneous RxNorm: 6548202 Unit(s) SQ as needed Sliding scale No Start Date 06/14/2015 Inactive Apidra SoloStar 100 unit/mL Sub-Q Insulin Pen RxNorm: 045352 Unit(s) SQ Sliding Scale B No Start Date 06/12/2012 Inactive Levemir FlexTouch U-100 Insulin 100 unit/mL (3 mL) sub cutaneous pen RxNorm: 312242 70 Unit(s) SQ BID No Start Date 02/06/2018 Inactive Pen Needle 31 X 5/16" RxNorm: Miscellaneous No Start Date 08/23/2013 Inactive Synthroid 50 mcg Tab RxNorm: 498024 1 Tablet(s) PO QD No Start Date 0 09/11/2011 Inactive Levemir Flexpen 100 unit/mL (3 mL) Sub-Q Insulin Pen RxNorm: 110810 70 Unit(s) SQ QHS No Start Date 07/29/2012 Inactive Levemir FlexTouch U-100 Insulin 100 unit/mL (3 mL) sub cutaneous pen RxNorm: 594524 80 Unit(s) SQ BID No Start Date 02/14/2018 Inactive Levemir FlexTouch 100 unit/mL (3 mL) subcutaneous insulin pe n RxNorm: 685549 80 Unit(s) SQ QPM No Start Date 09/04/2016 Inactive Lipitor 40 mg tablet RxNorm: 989144 1 Tablet(s) PO QD No Start Date 1 Inactive Ultram 50 mg tablet RxNorm: 181084 2 Tablet(s) PO TID as needed for pain No Start Date 06/10/2015 Inactive Prograf 1 mg Cap RxNorm: 321554 2 Capsule(s) PO BID No Start Date 02/2012 Inactive insulin needles (disposable) 32 x 5/16" RxNorm: Miscellaneous for use with flex pen No Start Date 04/04/2017 Inactive Levemir FlexTouch U-100 Insulin 100 unit/mL (3 mL) sub cutaneous pen RxNorm: 531064 90 Unit(s) SQ BID No Start Date 07/05/2018 Inactive Levemir Flexpen 100 unit/mL (3 mL) Sub-Q Insulin Pen RxNorm: 962182 65 Unit(s) SQ QD No Start Date 06/12/2012 Inactive pantoprazole 40 mg tablet,delayed release RxNorm: 525347 1 Tabl et(s) PO QD No Start Date 05/19/2019 Inactive Zithromax Z-Mateus 250 mg Tab RxNorm: 076989 Tablet(s) PO No Start Date 06/13/2011 Inactive as directed Lipitor 20 mg Tab RxNorm: 737001 1 Tablet(s) PO QD No Start Date 06/2011 Inactive One Touch UltraSoft Lancets RxNorm: Miscellaneou s for blood sugar testing as directed No Start Date 06/12/2012 Inactive Fish Oil 1,000 mg Cap RxNorm: 1 Capsule(s) PO QD No Start Date Inactive Medication Administered No Medication Administered data Immunizations Vaccine Codes Date Status Tetanus, Diptheria, Pertussis CVX: 115 07/27/2017 Co mplete Results Observation Observation Code Item Item Code Result Date S ervice Location GLYCOSYLATED HEMOGLOBIN TEST 74763 Hgb A1c 27173-1 13.9 % 0 02/27/2019 Unknown MEAN GLUC 2148392 Calc Mean Gluc 352 mg/dL 02/27/2019 Unkn own MICROALBUMIN URINE RANDOM 58970 U Microalbumin 2259.0 mg /L 02/26/2019 Unknown MICROALBUMIN URINE RANDOM 08618 U Creatinine 143 mg/dL 0 02/26/2019 Unknown MICROALBUMIN URINE RANDOM 26881 ALB/CR Ratio 1579.7 mg/g CR 02/26/2019 Unknown MAGNESIUM 91677 MAGNESIUM 1.4 mEq/L 02/19/2019 Unknown GFR CALC 1737866 GFR Non Afr Amr 37 mL/min 02/19/2019 Unk nown GFR CALC 1298085 GFR Afr Amr 45 mL/min 02/19/2019 Unknown [facility] 50044 Cholesterol 250 mg/dL 02/19/2019 Unkno wn LIP[facility] GROUP 38224 Triglyceride 465 mg/dL 02/19/2019 Unkn own L[facility] GROUP 19035 HDL CHOLESTEROL 30 mg/dL 02/19/2019 U nknown LIP[facility] GROUP 10652 Chol/HDL Ratio 8.33 ratio 02/19/2019 U nknown LIPID GROUP 04489 NON-HDL Chol 220 mg/dL 02/19/2019 Unkn own LIP[facility] GROUP 88778 LDL Cholesterol N/A Trig >400 019 Unknown LIP[facility] GROUP 38326 Fasting Unknown 02/19/2019 Unknown COMPREHENSIVE METABOLIC 38617 AST 20 U/L 2018 Unknown COMPREHENSIVE METABOLIC 09724 ALT 30 U/L 2018 Unknown COMPREHENSIVE METABOLIC 69838 BUN 27 mg/dL 2018 Unknown COMPREHENSIVE METABOLIC 95456 ALBUMIN 3.7 g/dL 2018 Unknown COMPREHENSIVE METABOLIC 21166 CHLORIDE 105 mmol/L 02/19 Unknown COMPREHENSIVE METABOLIC 22824 Bili Total 0.5 mg/dL 02/19 Unknown COMPREHENSIVE METABOLIC 58503 ALK PHOS 79 U/L 2018 Unknown COMPREHENSIVE METABOLIC 16373 SODIUM 137 mmol/L 02/19 Unknown COMPREHENSIVE METABOLIC 22843 CREATININE 2.10 mg/dL 02/10 Unknown COMPREHENSIVE METABOLIC 69771 CALCIUM 9.5 mg/dL 2018 Unknown COMPREHENSIVE METABOLIC 94724 POTASSIUM 4.2 mmol/L 02/19 Unknown COMPREHENSIVE METABOLIC 73879 Total Protein 6.5 g/dL Unknown COMPREHENSIVE METABOLIC 40089 Glucose 202 mg/dL 2018 Unknown COMPREHENSIVE METABOLIC 92224 Bicarbonate 22 mmol/L 02/10 Unknown COMPREHENSIVE METABOLIC 88390 AGAP 10 mmol/L 2018 Unknown LIPID GROUP 86393 Cholesterol 320 mg/dL 08/27/2018 Unkno wn LIPID GROUP 90912 Triglyceride 444 mg/dL 08/27/2018 Unkn own LIPID GROUP 73015 HDL CHOLESTEROL 39 mg/dL 08/27/2018 U nknown LIPID GROUP 58713 Chol/HDL Ratio 8.21 ratio 08/27/2018 U nknown LIPID GROUP 98229 NON-HDL Chol 281 mg/dL 08/27/2018 Unkn own LIPID GROUP 96532 LDL Cholesterol N/A Trig >400 019 Unknown LIPID GROUP 86743 Fasting Unknown 08/27/2018 Unknown PHOSPHORUS [id number] PHOSPHORUS 2.1 mg/dL 08/24/2018 Unknown PROTEIN/CREAT URINE WITH RATIO 25435|98051 U Protein 515 mg/ dL 08/24/2018 Unknown PROTEIN/CREAT URINE WITH RATIO 72035|56216 U Creatinine 116 mg/dL 08/24/2018 Unknown PROTEIN/CREAT URINE WITH RATIO 34335|81176 Prot:Creat Rat 4440 mg/g 08/24/2018 Unknown MAGNESIUM 05013 MAGNESIUM 1.4 mEq/L 08/24/2018 Unknown GFR CALC 1209642 GFR Non Afr Amr 44 mL/min 08/24/2018 Unk nown GFR CALC 9903298 GFR Afr Amr 53 mL/min 08/24/2018 [place] [address] Glucose TNP:Unknown Can shaw Reason 08/24/2018 [place] [address] CREATININE TNP:Unknown Cancel Reason 08/24/2018 [place] [address] BUN TNP:Unknown Can shaw Reason 08/24/2018 [place] [address] SODIUM TNP:Unknown Can shaw Reason 08/24/2018 [place] [address] POTASSIUM TNP:Unknown Cancel Reason 08/24/2018 [place] [address] CHLORIDE TNP:Unknown Can shaw Reason 08/24/2018 [place] [address] Bicarbonate TNP:Unknow n Cancel Reason 08/24/2018 [place] [address] AGAP TNP:Unknown Can shaw Reason 08/24/2018 [place] [address] CALCIUM TNP:Unknown Can shaw Reason 08/24/2018 Unknown COMPREHENSIVE METABOLIC 09035 AST 21 U/L 2018 Unknown COMPREHENSIVE METABOLIC 97449 ALT 35 U/L 2018 Unknown COMPREHENSIVE METABOLIC 40765 BUN 25 mg/dL 2018 Unknown COMPREHENSIVE METABOLIC 85511 ALBUMIN 4.5 g/dL 2018 Unknown COMPREHENSIVE METABOLIC 15335 CHLORIDE 106 mmol/L 08/24 Unknown COMPREHENSIVE METABOLIC 07301 Bili Total 0.4 mg/dL 08/24 Unknown COMPREHENSIVE METABOLIC 09077 ALK PHOS 64 U/L 2018 Unknown COMPREHENSIVE METABOLIC 58100 SODIUM 141 mmol/L 08/24 Unknown COMPREHENSIVE METABOLIC 81289 CREATININE 1.81 mg/dL 08/10 Unknown COMPREHENSIVE METABOLIC 11756 CALCIUM 10.3 mg/dL 08/24 Unknown COMPREHENSIVE METABOLIC 50564 POTASSIUM 3.4 mmol/L 08/24 Unknown COMPREHENSIVE METABOLIC 58463 Total Protein 7.2 g/dL Unknown COMPREHENSIVE METABOLIC 99426 Glucose 101 mg/dL 2018 Unknown COMPREHENSIVE METABOLIC 01430 Bicarbonate 23 mmol/L 08/10 Unknown COMPREHENSIVE METABOLIC 50450 AGAP 12 mmol/L 2018 Unknown UA W/MICR 62747 UA Urine Appear Normal 08/24/2018 Unk nown UA W/MICR 91665 UA Protein 3+ 08/24/2018 Unknown UA W/MICR 16700 UA Hemoglobin Trace 08/24/2018 Unkno wn UA W/MICR 35388 UA Glucose 3+ 08/24/2018 Unknown UA W/MICR 12676 UA Ketones Negative 08/24/2018 Unknown UA W/MICR 80831 UA pH 6.0 08/24/2018 Unknown UA W/MICR 45357 U Spec Hudson 1.025 08/24/2018 Unkn own UA W/MICR 71023 UA Bilirubin Negative 08/24/2018 Unknow n UA W/MICR 16872 UA Leuk Esteras Negative 08/24/2018 Unk nown UA W/MICR 55605 UA Nitrite NEG 08/24/2018 Unknown UA W/MICR 04728 UA WBC/hpf 1 08/24/2018 Unknown UA W/MICR 04267 UA RBC auto 12.9 /uL 08/24/2018 Unknown UA W/MICR 75093 UA RBC hpf 2 08/24/2018 Unknown UA W/MICR 99362 UA WBC auto 5.9 /uL 08/24/2018 Unknown UA W/MICR 81264 UA SQ EPI auto 5.2 /uL 08/24/2018 Unkn own UA W/MICR 06224 UA H Cast auto 0.10 /uL 08/24/2018 Unkn own PROGRAF 0498608 Prograf 7.3 ng/mL 08/24/2018 Unknown MICROALBUMIN URINE RANDOM 12706 U Microalbumin 3485.2 mg /L 08/24/2018 Unknown MICROALBUMIN URINE RANDOM 91024 U Creatinine 116 mg/dL 0 08/24/2018 Unknown MICROALBUMIN URINE RANDOM 31666 ALB/CR Ratio 3004.5 mg/g CR 08/24/2018 Unknown GLYCOSYLATED HEMOGLOBIN TEST 58204 Hgb A1c 20406-7 13.3 % 0 06/29/2018 Unknown MEAN GLUC 0564097 Calc Mean Gluc 335 mg/dL 06/29/2018 Unkn own COMPREHENSIVE METABOLIC 95155 AST 17 U/L 2017 Unknown COMPREHENSIVE METABOLIC 83305 ALT 24 U/L 2017 Unknown COMPREHENSIVE METABOLIC 16637 BUN 24 mg/dL 2017 Unknown COMPREHENSIVE METABOLIC 54139 ALBUMIN 3.9 g/dL 2017 Unknown COMPREHENSIVE METABOLIC 73604 CHLORIDE 108 mmol/L 02/06 Unknown COMPREHENSIVE METABOLIC 02882 Bili Total 0.6 mg/dL 02/06 Unknown COMPREHENSIVE METABOLIC 57014 ALK PHOS 67 U/L 2017 Unknown COMPREHENSIVE METABOLIC 04912 SODIUM 140 mmol/L 02/06 Unknown COMPREHENSIVE METABOLIC 67563 CREATININE 1.75 mg/dL 01/11 Unknown COMPREHENSIVE METABOLIC 65692 CALCIUM 9.6 mg/dL 2017 Unknown COMPREHENSIVE METABOLIC 96744 POTASSIUM 3.8 mmol/L 02/06 Unknown COMPREHENSIVE METABOLIC 59319 Total Protein 7.1 g/dL Unknown COMPREHENSIVE METABOLIC 12953 Glucose 62 mg/dL 2017 Unknown COMPREHENSIVE METABOLIC 18537 Bicarbonate 23 mmol/L 01/11 Unknown COMPREHENSIVE METABOLIC 75361 AGAP 9 mmol/L 2017 Unknown GLYCOSYLATED HEMOGLOBIN TEST 47200 Hgb A1c 48972-9 13.0 % 0 02/06/2018 Unknown GFR CALC 9792668 GFR Non Afr Amr 46 mL/min 02/06/2018 Unk nown GFR CALC 9290530 GFR Afr Amr 55 mL/min 02/06/2018 Unknown MICROALBUMIN URINE RANDOM 24588 U Microalbumin 669.0 mg/ L 02/06/2018 Unknown MICROALBUMIN URINE RANDOM 56068 U Creatinine 92 mg/dL 0 02/06/2018 Unknown MICROALBUMIN URINE RANDOM 72488 ALB/CR Ratio 727.2 mg/gC R 02/06/2018 Unknown MEAN GLUC 0140803 Calc Mean Gluc 326 mg/dL 02/06/2018 Unkn own GLYCOSYLATED HEMOGLOBIN TEST 52703 Hgb A1c 44351-1 14.3 % 0 12/03/2015 Unknown THYROID STIMULATING HORMONE 23904 TSH 1.909 uIU/mL 12/03/2015 Unknown MAGNESIUM 81314 MAGNESIUM 1.5 mEq/L 12/03/2015 Unknown GFR CALC 9217994 GFR Non Afr Amr 39 mL/min 12/03/2015 Unk nown GFR CALC 8853986 GFR Afr Amr 48 mL/min 12/03/2015 Unknown MEAN GLUC 6410660 Mean Glucose 364 mg/dL 12/03/2015 Unknow n COMPREHENSIVE METABOLIC 65960 AST 34 U/L 2015 Unknown COMPREHENSIVE METABOLIC 02010 ALT 78 U/L 2015 Unknown COMPREHENSIVE METABOLIC 48934 BUN 29 mg/dL 2015 Unknown COMPREHENSIVE METABOLIC 42009 ALBUMIN 4.3 g/dL 2015 Unknown COMPREHENSIVE METABOLIC 25192 CHLORIDE 93 mmol/L 2015 Unknown COMPREHENSIVE METABOLIC 75923 Bili Total 0.7 mg/dL 12/02 Unknown COMPREHENSIVE METABOLIC 33239 ALK PHOS 83 U/L 2015 Unknown COMPREHENSIVE METABOLIC 50252 SODIUM 125 mmol/L 12/02 Unknown COMPREHENSIVE METABOLIC 01489 CREATININE 2.01 mg/dL 11/11 Unknown COMPREHENSIVE METABOLIC 86187 CALCIUM 9.8 mg/dL 2015 Unknown COMPREHENSIVE METABOLIC 68117 POTASSIUM 4.3 mmol/L 12/02 Unknown COMPREHENSIVE METABOLIC 64072 Total Protein 7.3 g/dL Unknown COMPREHENSIVE METABOLIC 38071 Glucose 542 mg/dL 2015 Unknown COMPREHENSIVE METABOLIC 34548 Bicarbonate 23 mmol/L 11/11 Unknown COMPREHENSIVE METABOLIC 78314 AGAP 9 mmol/L 2015 Unknown COMPREHENSIVE METABOLIC 44276 AST 31 U/L 2013 Unknown COMPREHENSIVE METABOLIC 25297 ALT 52 IU/L 2013 Unknown COMPREHENSIVE METABOLIC 82923 BUN 26 MG/DL 2013 Unknown COMPREHENSIVE METABOLIC 26565 ALBUMIN 4.9 GM/DL 2013 Unknown COMPREHENSIVE METABOLIC 79668 CHLORIDE 108 MMOL/L 07/30 Unknown COMPREHENSIVE METABOLIC 88482 BILI TOT 0.4 MG/DL 2013 Unknown COMPREHENSIVE METABOLIC 23345 ALK PHOS 68 U/L 2013 Unknown COMPREHENSIVE METABOLIC 18954 SODIUM 138 MMOL/L 07/30 Unknown COMPREHENSIVE METABOLIC 76341 CREATININE 2.02 MG/DL 07/13 Unknown COMPREHENSIVE METABOLIC 44355 CALCIUM 10.3 MG/DL 07/30 Unknown COMPREHENSIVE METABOLIC 48610 POTASSIUM 5.0 MMOL/L 07/30 Unknown COMPREHENSIVE METABOLIC 99306 PROT TOT 7.3 GM/DL 2013 Unknown COMPREHENSIVE METABOLIC 92517 Glucose 89 MG/DL 2013 Unknown COMPREHENSIVE METABOLIC 23270 BICARB 24 MMOL/L 2013 Unknown COMPREHENSIVE METABOLIC 98165 ANION GAP 6 MEQ/L 2013 Unknown GFR CALC 1714203 GFR AA 48.0L ML/MIN 07/30/2013 Unknow n GFR CALC 0745689 GFR NON-AA 40.0L ML/MIN 07/30/2013 Unkno wn COMPLETE BLOOD COUNT 5568524 WBC 7.9 10e9/L 07/30/19 14 Unknown COMPLETE BLOOD COUNT 5577977 RBC 4.94 10e12/L 2013 Unknown COMPLETE BLOOD COUNT 7784650 HGB 14.0 g/dL 4 Unknown COMPLETE BLOOD COUNT 7946061 HCT DET 41.5 % 4 Unknown COMPLETE BLOOD COUNT 8034554 MCV 84.0 fL 4 Unknown COMPLETE BLOOD COUNT 8169992 MCH 28.3 pg 4 Unknown COMPLETE BLOOD COUNT 1217946 MCHC 33.7 g/dL 4 Unknown COMPLETE BLOOD COUNT 3458147 PLT 176 10e9/L 07/30/19 14 Unknown COMPLETE BLOOD COUNT 5153059 MPV 11.8 fL 4 Unknown COMPLETE BLOOD COUNT 5147010 [place] % 75.4 % 4 Unknown COMPLETE BLOOD COUNT 5224565 LY % 13.7 % 4 Unknown COMPLETE BLOOD COUNT 4808566 MON % 8.9 % 4 Unknown COMPLETE BLOOD COUNT 3432015 EOS % 1.7 % 4 Unknown COMPLETE BLOOD COUNT 2836243 BASO % 0.3 % 4 Unknown COMPLETE BLOOD COUNT 3335279 RDW 13.4 % 4 Unknown COMPLETE BLOOD COUNT 8815695 ABS [place]TON 5.96 10e9/L 014 Unknown COMPLETE BLOOD COUNT 4153084 ABS LYMPH 1.08 10e9/L 014 Unknown COMPLETE BLOOD COUNT 3284996 ABS MONO 0.70 10e9/L 014 Unknown COMPLETE BLOOD COUNT 0264373 ABS EOS 0.13 10e9/L 014 Unknown COMPLETE BLOOD COUNT 1404079 ABS BASO 0.02 10e9/L 014 Unknown COMPLETE BLOOD COUNT 9388923 RDW-SD 40.2 fL 4 Unknown C-REACTIVE PROTEIN (CRP) QUANT 35363 CRP 0.2 MG/DL 07/30/2013 Unknown CANCEL 8950544 CANCEL FOOTNOTE 05/23/2012 Unknown PEND CHEM PEND CHEM FOOTNOTE 05/22/2012 Unknown COMPREHENSIVE METABOLIC 54617 AST 61 U/L 2011 Unknown COMPREHENSIVE METABOLIC 22321 ALT 106 U/L 2011 Unknown COMPREHENSIVE METABOLIC 77083 BUN 33 MG/DL 2011 Unknown COMPREHENSIVE METABOLIC 56550 ALBUMIN 5.0 GM/DL 2011 Unknown COMPREHENSIVE METABOLIC 32245 CHLORIDE 89 MMOL/L 2011 Unknown COMPREHENSIVE METABOLIC 19265 BILI TOT 0.6 MG/DL 2011 Unknown COMPREHENSIVE METABOLIC 07042 ALK PHOS 129 U/L 2011 Unknown COMPREHENSIVE METABOLIC 28638 SODIUM 120 MMOL/L 05/21 Unknown COMPREHENSIVE METABOLIC 85192 CREATININE 2.23 MG/DL 05/12 Unknown COMPREHENSIVE METABOLIC 38966 CALCIUM 9.8 MG/DL 2011 Unknown COMPREHENSIVE METABOLIC 24596 POTASSIUM 5.3 MMOL/L 05/21 Unknown COMPREHENSIVE METABOLIC 19466 PROT TOT 7.8 GM/DL 2011 Unknown COMPREHENSIVE METABOLIC 02873 Glucose 789 MG/DL 2011 Unknown COMPREHENSIVE METABOLIC 40716 BICARB 20 MMOL/L 2011 Unknown COMPREHENSIVE METABOLIC 64134 ANION GAP 11 MMOL/L 2011 Unknown GFR CALC 1194340 GFR AA 43.0L ML/MIN 05/21/2012 Unknow n GFR CALC 8086975 GFR NON-AA 36.0L ML/MIN 05/21/2012 Unkno wn THYROID STIMULATING HORMONE 12241 TSH 1.499 uIU/ML 01/27/2011 Unknown FREE T4 41083 FREE T4 1.15 NG/DL 01/27/2011 Unknown Procedures Procedure Codes Date ROUTINE VENIPUNCTURE CPT-4: 21135 02/26/2019 A1C HPLC CPT-4: 78617 02/26/2019 MICROALBUMIN QUANTITATIVE CPT-4: 93682 02/26/2019 ROUTINE VENIPUNCTURE CPT-4: 73856 02/19/2019 METABOLIC PANEL TOTAL CA CPT-4: 63284 02/19/2019 MICROALBUMIN, QUANTITATIVE CPT-4: 49357 02/19/2019 LIPID PANEL CPT-4: 23769 02/19/2019 COMPREHEN METABOLIC PANEL CPT-4: 27748 02/19/2019 ASSAY OF MAGNESIUM CPT-4: 20572 02/19/2019 METABOLIC PANEL TOTAL CA CPT-4: 03716 08/24/2018 COMPREHEN METABOLIC PANEL CPT-4: 77723 08/24/2018 ASSAY OF MAGNESIUM CPT-4: 14104 08/24/2018 MICROALBUMIN QUANTITATIVE CPT-4: 48967 08/24/2018 PROTEIN/CREAT URINE WITH RATIO CPT-4: 06527|88193 9 PHOSPHORUS CPT-4: 7999218 08/24/2018 LIPID PANEL CPT-4: 90175 08/24/2018 ROUTINE VENIPUNCTURE CPT-4: 33892 06/29/2018 A1C HPLC CPT-4: 17419 06/29/2018 URINALYSIS NONAUTO W/O SCOPE CPT-4: 74863 02/06/2018 URINE CULTURE/ COLONY COUNT CPT-4: 78759 02/06/2018 MICROALBUMIN QUANTITATIVE CPT-4: 87156 02/06/2018 ROUTINE VENIPUNCTURE CPT-4: 16792 02/06/2018 COMPREHEN METABOLIC PANEL CPT-4: 26678 02/06/2018 A1C HPLC CPT-4: 43792 02/06/2018 ROUTINE VENIPUNCTURE CPT-4: 18398 11/02/2017 COMPREHEN METABOLIC PANEL CPT-4: 11006 11/02/2017 A1C HPLC CPT-4: 65122 11/02/2017 TDAP VACCINE 7 YRS/> IM CPT-4: 68490 07/27/2017 IMMUNIZATION ADMIN CPT-4: 27870 07/27/2017 URINALYSIS NONAUTO W/O SCOPE CPT-4: 35281 02/16/2016 URINE CULTURE/ COLONY COUNT CPT-4: 19836 02/16/2016 PRESCRIP TRANSMIT VIA ERX SY CPT-4: G8553 02/16/2016 ROUTINE VENIPUNCTURE CPT-4: 92911 12/03/2015 ASSAY THYROID STIM HORMONE CPT-4: 01123 12/03/2015 COMPREHEN METABOLIC PANEL CPT-4: 68807 12/03/2015 A1C HPLC CPT-4: 32176 12/03/2015 ASSAY OF MAGNESIUM CPT-4: 00704 12/03/2015 URINALYSIS NONAUTO W/O SCOPE CPT-4: 81344 12/03/2015 URINE CULTURE/ COLONY COUNT CPT-4: 59806 12/03/2015 URINALYSIS NONAUTO W/O SCOPE CPT-4: 84349 07/30/2013 URINE CULTURE/ COLONY COUNT CPT-4: 62152 07/30/2013 ROUTINE VENIPUNCTURE CPT-4: 84347 07/30/2013 COMPLETE CBC W/AUTO DIFF WBC CPT-4: 91712 07/30/2013 COMPREHEN METABOLIC PANEL CPT-4: 43417 07/30/2013 C-REACTIVE PROTEIN CPT-4: 44242 07/30/2013 ROUTINE VENIPUNCTURE CPT-4: 16343 08/20/2012 ASSAY OF FREE THYROXINE CPT-4: 94586 08/20/2012 ASSAY THYROID STIM HORMONE CPT-4: 15986 08/20/2012 COMPREHEN METABOLIC PANEL CPT-4: 79149 08/20/2012 COMPLETE CBC W/AUTO DIFF WBC CPT-4: 08307 08/20/2012 LIPID PANEL CPT-4: 72195 08/20/2012 A1C GLYCOSYLATED HEMOGLOBIN TEST CPT-4: 15803 013 ASSAY, GLUCOSE, BLOOD QUANT CPT-4: 79677 06/21/2012 ASSAY, GLUCOSE, BLOOD QUANT CPT-4: 21147 05/21/2012 ROUTINE VENIPUNCTURE CPT-4: 15802 05/21/2012 COMPREHEN METABOLIC PANEL CPT-4: 34123 05/21/2012 A1C GLYCOSYLATED HEMOGLOBIN TEST CPT-4: 27632 012 CURRENT SMKLESS TOBACCO USER CPT-4: G8456 06/14/2011 PT VIS DOC USE EHR CER ATCB CPT-4: G8447 06/14/2011 PRESCRIP TRANSMIT VIA ERX SY CPT-4: G8553 06/14/2011 PT VIS DOC USE EHR CER ATCB CPT-4: G8447 03/03/2011 PRESCRIP TRANSMIT VIA ERX SY CPT-4: G8553 03/03/2011 ROUTINE VENIPUNCTURE CPT-4: 14990 01/27/2011 ASSAY OF FREE THYROXINE CPT-4: 78703 01/27/2011 ASSAY THYROID STIM HORMONE CPT-4: 35564 01/27/2011 PT VIS DOC USE EHR CER ATCB CPT-4: G8447 01/27/2011 PRESCRIP TRANSMIT VIA ERX SY CPT-4: G8553 01/27/2011 TOBACCO USE ASSESSED CPT-4: 1000F 12/02/2010 INCOMPLETE DOC PT ON MEDS CPT-4: G8429 12/02/2010 PT VIS DOC USE EHR CER ATCB CPT-4: G8447 12/02/2010 PRESCRIP TRANSMIT VIA ERX SY CPT-4: G8553 12/02/2010 Vital Signs Date Vital 05/20/2019 Blood Pressure 1: 136/92 Code: 8480-6 Heart Rate 1: 80 bpm Respiratory Rate: 20 bpm SpO2: 96% Temperature: 36.8 (C) / 98.2 (F) We ight: 261 lbs 02/26/2019 Blood Pressure 1: 136/94 Code: 8480-6 Heart Rate 1: 76 bpm SpO2: 98% Temperature: 36.8 (C) / 98.2 (F) Weight: 255 lbs 06/26/2018 Blood Pressure 1: 140/90 Code: 8480-6 Heart Rate 1: 83 bpm Respiratory Rate: 18 bpm SpO2: 97% Temperature: 36.4 (C) / 97.5 (F) We ight: 259 lbs 02/06/2018 Blood Pressure 1: 158/90 Code: 8480-6 BMI: 34.3 Code: 32941-3 Heart Rate 1: 78 bpm Height: 6'1" Respiratory Rate: 20 bpm SpO2: 98% Tempera ture: 36.6 (C) / 97.8 (F) Weight: 260 lbs 11/02/2017 Blood Pressure 1: 134/92 Code: 8480-6 BMI: 32.3 Code: 44175-1 Heart Rate 1: 72 bpm Height: 6'1" SpO2: 98% Temperature: 36.4 (C) / 97.5 (F) Weight: 245 lbs 07/27/2017 Blood Pressure 1: 136/64 Code: 8480-6 BMI: 30.9 Code: 18962-4 Heart Rate 1: 78 bpm Height: 6'1" Respiratory Rate: 22 bpm SpO2: 98% Tempera ture: 36.4 (C) / 97.6 (F) Weight: 234 lbs 04/05/2017 Blood Pressure 1: 126/90 Code: 8480-6 BMI: 33.5 Code: 28237-5 Heart Rate 1: 76 bpm Height: 6'1" Respiratory Rate: 20 bpm SpO2: 97% Tempera ture: 37.0 (C) / 98.6 (F) Weight: 254 lbs 06/20/2016 Blood Pressure 1: 122/74 Code: 8480-6 BMI: 35.2 Code: 68236-2 Heart Rate 1: 80 bpm Height: 6'1" Respiratory Rate: 20 bpm SpO2: 97% Tempera ture: 36.9 (C) / 98.5 (F) Weight: 267 lbs 02/16/2016 Blood Pressure 1: 136/82 Code: 8480-6 BMI: 36.4 Code: 08769-2 Heart Rate 1: 66 bpm Height: 6'1" Respiratory Rate: 18 bpm SpO2: 96% Tempera ture: 36.4 (C) / 97.6 (F) Weight: 276 lbs 12/03/2015 Blood Pressure 1: 122/86 Code: 8480-6 BMI: 39.2 Code: 57833-8 Heart Rate 1: 76 bpm Height: 6' Respiratory Rate: 20 bpm Temperature: 37 .1 (C) / 98.7 (F) Weight: 289 lbs 06/24/2015 Blood Pressure 1: 136/84 Code: 8480-6 BMI: 40.7 Code: 07038-1 Heart Rate 1: 84 bpm Height: 6' Respiratory Rate: 20 bpm Temperature: 36 .9 (C) / 98.4 (F) Weight: 300 lbs 06/11/2015 Blood Pressure 1: 160/82 Code: 8480-6 BMI: 40.4 Code: 05587-7 Heart Rate 1: 82 bpm Height: 6' Respiratory Rate: 22 bpm Temperature: 36 .5 (C) / 97.7 (F) Weight: 298 lbs 07/17/2014 Blood Pressure 1: 132/84 Code: 8480-6 BMI: 41.0 Code: 35511-3 Heart Rate 1: 76 bpm Height: 6'1" Respiratory Rate: 20 bpm Temperature: 36 .9 (C) / 98.4 (F) Weight: 311 lbs 10/31/2013 Blood Pressure 1: 132/80 Code: 8480-6 BMI: 41.2 Code: 36137-8 Heart Rate 1: 84 bpm Height: 6'1" Respiratory Rate: 22 bpm Temperature: 36 .1 (C) / 97.0 (F) Weight: 312 lbs 08/01/2013 Blood Pressure 1: 142/86 Code: 8480-6 BMI: 42.4 Code: 36364-3 Heart Rate 1: 84 bpm Height: 6' Respiratory Rate: 20 bpm Temperature: 36 .7 (C) / 98.1 (F) Weight: 313 lbs 07/30/2013 Blood Pressure 1: 128/88 Code: 8480-6 Heart Rate 1: 82 bpm Respiratory Rate: 20 bpm Temperature: 36.7 (C) / 98.0 (F) Weight: 313 lbs 05/30/2013 Blood Pressure 1: 158/102 Code: 8480-6 Heart Rat e 1: 88 bpm Respiratory Rate: 20 bpm Temperature: 36.7 (C) / 98.0 (F) Weight: 309 lbs 04/29/2013 Blood Pressure 1: 156/108 Code: 8480-6 BMI: 41.9 Code: 12339-1 Heart Rate 1: 92 bpm Height: 6' Respiratory Rate: 20 bpm Temperature: 36 .9 (C) / 98.4 (F) Weight: 309 lbs 02/27/2013 Blood Pressure 1: 162/114 Code: 8480-6 BMI: 41.0 Code: 03291-7 Heart Rate 1: 84 bpm Height: 6' Respiratory Rate: 20 bpm Temperature: 36 .7 (C) / 98.0 (F) Weight: 302 lbs 01/01/2013 Blood Pressure 1: 138/86 Code: 8480-6 BMI: 41.0 Code: 47106-1 Heart Rate 1: 76 bpm Height: 6' Respiratory Rate: 20 bpm Temperature: 36 .7 (C) / 98.0 (F) Weight: 302 lbs 11/27/2012 Blood Pressure 1: 136/92 Code: 8480-6 BMI: 41.2 Code: 22095-8 Heart Rate 1: 80 bpm Height: 6' Respiratory Rate: 20 bpm Temperature: 36 .6 (C) / 97.8 (F) Weight: 304 lbs 08/28/2012 Blood Pressure 1: 126/80 Code: 8480-6 BMI: 41.8 Code: 23347-7 Heart Rate 1: 80 bpm Height: 6' Respiratory Rate: 20 bpm Temperature: 36 .4 (C) / 97.6 (F) Weight: 308 lbs 07/03/2012 Blood Pressure 1: 114/80 Code: 8480-6 BMI: 42.3 Code: 94174-5 Heart Rate 1: 72 bpm Height: 6' Respiratory Rate: 20 bpm Temperature: 36 .6 (C) / 97.9 (F) Weight: 312 lbs 06/21/2012 Blood Pressure 1: 152/100 Code: 8480-6 BMI: 43.3 Code: 53883-8 Heart Rate 1: 72 bpm Height: 6' Temperature: 36.8 (C) / 98.2 (F) Weight: 319 lbs 05/30/2012 Blood Pressure 1: 122/78 Code: 8480-6 BMI: 43.0 Code: 83543-0 Heart Rate 1: 72 bpm Height: 6' Respiratory Rate: 20 bpm Temperature: 36 .7 (C) / 98.0 (F) Weight: 317 lbs 05/21/2012 Blood Pressure 1: 126/94 Code: 8480-6 BMI: 44.2 Code: 39032-4 Heart Rate 1: 92 bpm Height: 6' Respiratory Rate: 20 bpm Temperature: 36 .6 (C) / 97.9 (F) Weight: 326 lbs 01/24/2012 Blood Pressure 1: 122/90 Code: 8480-6 BMI: 44.5 Code: 34189-3 Heart Rate 1: 76 bpm Height: 6' Respiratory Rate: 20 bpm Temperature: 36 .8 (C) / 98.2 (F) Weight: 328 lbs 09/21/2011 Blood Pressure 1: 116/80 Code: 8480-6 BMI: 44.1 Code: 63801-5 Heart Rate 1: 92 bpm Height: 6' Respiratory Rate: 20 bpm Temperature: 36 .7 (C) / 98.1 (F) Weight: 325 lbs 09/12/2011 Blood Pressure 1: 166/110 Code: 8480-6 BMI: 45.0 Code: 92623-8 Heart Rate 1: 80 bpm Height: 6' Respiratory Rate: 20 bpm Temperature: 36 .5 (C) / 97.7 (F) Weight: 332 lbs 06/14/2011 Blood Pressure 1: 142/84 Code: 8480-6 BMI: 45.6 Code: 65086-8 Heart Rate 1: 104 bpm Height: 6' Respiratory Rate: 20 bpm Temperature: 36 .4 (C) / 97.5 (F) Weight: 336 lbs 03/03/2011 Blood Pressure 1: 130/96 Code: 8480-6 Heart Rate 1: 86 bpm Temperature: 36.1 (C) / 97.0 (F) Weight: 327 lbs 01/27/2011 Blood Pressure 1: 142/96 Code: 8480-6 BMI: 42.0 Code: 57842-1 Heart Rate 1: 72 bpm Height: 6'2" Respiratory Rate: 20 bpm Temperature: 36 .7 (C) / 98.0 (F) Weight: 327 lbs 12/02/2010 Blood Pressure 1: 134/86 Code: 8480-6 Heart Rate 1: 72 bpm Temperature: 36.7 (C) / 98.1 (F) Weight: 323 lbs Functional Status No Functional Status data Reason For Visit Reason For Visit Effective Dates Notes abdominal pain 05/20/2019 follow up 02/26/2019 Patient needs Diovan HCT refilled lab draw 02/19/2019 lab draw 08/24/2018 lab draw 06/29/2018 constipation 06/26/2018 is going through [facility] les of this lately, was able to have a bm today abdominal pain 02/06/2018 follow up 11/02/2017 diabetes. well man exam (18-39 years) 07/27/2017 Wellness follow up 04/05/2017 Refill Diovan follow up 06/20/2016 blood in urine 02/16/2016 Patient had right [facility] Transplant in 2009- Patient called transplant center and is still waiting on return phone call pain, limb 12/03/2015 foot pain 06/24/2015 well man exam (18-39 years) 06/11/2015 Wellness diabetes mellitus 07/17/2014 follow up 10/31/2013 3 month follow up 08/01/2013 2mo fwup abdominal pain 07/30/2013 follow up 05/30/2013 1mo fwup depression 04/29/2013 Needs medications re filled follow up 02/27/2013 No recent labs due t o work schedule toe pain due to infection 01/01/2013 follow up 11/27/2012 Doing labs next week follow up 08/28/2012 2mo fwup/discuss lab s lab draw 08/20/2012 follow up 07/03/2012 diabetes mellitus 06/21/2012 follow up 05/30/2012 hospital fwup vision change 05/21/2012 follow up 01/24/2012 4mo fwup--due for la bs dizziness 09/21/2011 follow up 09/12/2011 3mo fwup hypothyroid 06/14/2011 high blood pressure 03/03/2011 follow up 01/27/2011 2mo fwup follow up 12/02/2010 Post-op wound 10/20/2009 dexter removal---cl eansed with alcohol, removed dexter x10, tolerated well. 1 staple had already fallen out. 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] Diagnosis: Kidney transplant status[ICD10: Z94.0] Diagnosis: Chronic kidney disease, stage 3 (moderate)[ICD10: N18.3] Diagnosis: Mixed hyperlipidemia[ICD10: E78.2] Galina LEAL BRIANA [facility] CPT-4: 41601 02/26/2019 ([id number]) NURSE/OUTPATIENT VISIT EST Diagnosis: 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, 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] Diagnosis: Essential (primary) hypertension[ICD10: I10] Diagnosis: Other specified hypothyroidism[ICD10: E03.8] Diagnosis: Mixed hyperlipidemia[ICD10: E78.2] Galina WARREN [email or web address] CPT-4: 65484 02/19/2019 ([id number]) NURSE/OUTPATIENT VISIT EST Diagnosis: Kidney transplant status[ICD10: Z94.0] 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] Diagnosis: 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[ICD10: Z79.899] Diagnosis: Encounter for aftercare following other organ transplant[ICD10: Z48.298] Diagnosis: Mixed hyperlipidemia[ICD10: E78.2] Galina LEAL BRIANA [facility] CPT-4: 79013 08/24/2018 ([id number]) NURSE/OUTPATIENT VISIT EST Diagnosis: Type 2 diabetes mellitus with diabetic neuropathy, unspecified[ICD10: E11.40] Diagnosis: Type 2 diabetes mellitus with hyperglycemia[ICD10: E11.65] 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] Diagnosis: Essential (primary) hypertension[ICD10: I10] Galina ASENCIO [email or web address] CPT-4: 36136 06/29/2018 ([id number]) OFFICE/OUTPATIENT VISIT EST Diagnosis: Slow transit constipation[ICD10: K59.01] Diagnosis: Epigastric pain[ICD10: R10.13] Diagnosis: Type 2 diabetes mellitus with hyperglycemia[ICD10: E11.65] Coleen DENNISONQUELINE [facility] CPT-4: 80196 06/26/2018 ([id number]) OFFICE/OUTPATIENT VISIT EST Diagnosis: Right lower quadrant pain[ICD10: R10.31] Diagnosis: Type 2 diabetes mellitus with diabetic neuropathy, unspecified[ICD10: E11.40] Coleen SMITH [employer] [facility] CPT-4: 06959 ([id number]) OFFICE/OUTPATIENT VISIT EST Diagnosis: Type 2 diabetes mellitus with hyperglycemia[ICD10: E11.65] Diagnosis: Mixed hyperlipidemia[ICD10: E78.2] Diagnosis: Essential (primary) hypertension[ICD10: I10] Coleen SMITH [employer] [facility] CPT-4: 45909 11/02/2017 ([id number]) PREV VISIT EST AGE 18-39 Diagnosis: Encounter for general adult medical examination with abnormal findings[ICD10: Z00.01] Diagnosis: Abrasion of right hand, initial encounter[ICD10: S60.511A] 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] Coleen SMITH [employer] [facility] CPT-4: 91082 OFFICE/OUTPATIENT VISIT EST 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] Diagnosis: Tinea pedis[ICD10: B35.3] Coleen ARTEAGA [employer] [facility] CPT-4: 39702 04/05/2017 ([id number]) OFFICE/OUTPATIENT VISIT EST Diagnosis: 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, 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] Diagnosis: Mixed hyperlipidemia[ICD10: E78.2] Diagnosis: Essential (primary) hypertension[ICD10: I10] Galina SMITH [employer] [facility] CPT-4: 06706 06/20/2016 ([id number]) OFFICE/OUTPATIENT VISIT EST Diagnosis: Urinary tract infection, site not specified[ICD10: N39.0] MissyCatrachito SMITH [employer] [facility] CPT-4: 65885 02/16/2016 ([id number]) OFFICE/OUTPATIENT VISIT EST Diagnosis: Type 2 diabetes mellitus with hyperglycemia[ICD10: E11.65] Diagnosis: Cramp and spasm[ICD10: R25.2] Diagnosis: Hematuria, unspecified[ICD10: R31.9] Galina SMITH [facility] CPT-4: 91376 12/03/2015 OFFICE/OUTPATIENT VISIT EST Diagnosis: Type 2 diabetes mellitus with diabetic neuropathy, unspecified[ICD10: E11.40] Alejandra SMITH DO [facility] CPT-4: 22386 06/24/2015 ([id number]) OFFICE/OUTPATIENT VISIT EST Diagnosis: Acute sinusitis, unspecified[ICD10: J01.90] Diagnosis: Otitis media, unspecified, bilateral[ICD10: H66.93] Galina SMITH [facility] CPT-4: 34893 06/11/2015 ([id number]) OFFICE/OUTPATIENT VISIT EST Diagnosis: 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[ICD9: 250.01] Diagnosis: HYPERTENSION[ICD9: 401.9] Diagnosis: HYPERLIPIDEMIA NEC/NOS[ICD9: 272.4] Diagnosis: KIDNEY TRANSPLANT STATUS[ICD9: V42.0] [facility]: 69805 07/17/2014 ([id number]) OFFICE/OUTPATIENT VISIT EST Diagnosis: 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[ICD9: 250.01] Diagnosis: HYPERTENSION[ICD9: 401.9] Galina ARTEAGA [facility] CPT-4: 21498 10/31/2013 ([id number]) OFFICE/OUTPATIENT VISIT EST Diagnosis: 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I[ICD9: 250.00] Diagnosis: HYPERTENSION[ICD9: 401.9] Diagnosis: HYPERLIPIDEMIA NEC/NOS[ICD9: 272.4] Galina LAWTON LUMA Meron [facility] CPT-4: 13721 08/01/2013 OFFICE/OUTPATIENT VISIT EST Diagnosis: HEMATURIA NOS[ICD9: 599.70] Diagnosis: Abdominal pain, acute, right lower quadrant[ICD9: 789.03] Diagnosis: KIDNEY TRANSPLANT STATUS[ICD9: V42.0] Alejandra SMITH [facility] CPT-4: 53634 07/30/2013 ([id number]) OFFICE/OUTPATIENT VISIT EST Diagnosis: Uncontrolled hypertension[ICD9: 401.9] Diagnosis: BRIEF DEPRESSIVE REACT[ICD9: 309.0] Galina MEJIAMary [facility]MA [facility] CPT-4: 34466 05/30/2013 ([id number]) OFFICE/OUTPATIENT VISIT EST Diagnosis: HYPERTENSION[ICD9: 401.9] Diagnosis: Anticipatory grieving[ICD9: 309.0] Galina MEJIAMARILUZ [facility]RIANA [facility] CPT-4: 03004 04/29/2013 ([id number]) OFFICE/OUTPATIENT VISIT EST Diagnosis: 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I, UNCONTROLLED[ICD9: 250.02] Diagnosis: HYPERTENSION[ICD9: 401.9] Diagnosis: HYPOTHYROIDISM[ICD9: 244.9] Diagnosis: KIDNEY TRANSPLANT STATUS[ICD9: V42.0] Galina THRASHER ERLIN SKarol [facility] CPT-4: 24241 02/27/2013 OFFICE/OUTPATIENT VISIT EST Diagnosis: Paronychia[ICD9: 681.9] Diagnosis: ONYCHOMYCOSIS[ICD9: 110.1] Viky ASENCIO S. OR [facility] CPT-[facility]: 66235 01/01/2013 ([id number]) OFFICE/OUTPATIENT VISIT EST Diagnosis: 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I, UNCONTROLLED[ICD9: 250.02] Diagnosis: HYPERLIPIDEMIA NEC/NOS[ICD9: 272.4] Diagnosis: HYPERTENSION[ICD9: 401.9] Diagnosis: KIDNEY TRANSPLANT STATUS[ICD9: V42.0] Diagnosis: HYPOTHYROIDISM[ICD9: 244.9] Galina Cristobal. O RENDER [facility] CPT-4: 28568 11/27/2012 ([id number]) OFFICE/OUTPATIENT VISIT EST Diagnosis: 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I[ICD9: 250.00] Diagnosis: HYPOTHYROIDISM[ICD9: 244.9] Diagnosis: HYPERLIPIDEMIA NEC/NOS[ICD9: 272.4] Diagnosis: HYPERTENSION[ICD9: 401.9] Galina ASENCIO SusuKarol ORE NDER [facility] CPT-4: 57378 08/28/2012 ([id number]) OFFICE/OUTPATIENT VISIT EST Diagnosis: HYPOTHYROIDISM[ICD9: 244.9] Diagnosis: 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I, UNCONTROLLED[ICD9: 250.02] Diagnosis: HYPERLIPIDEMIA NEC/NOS[ICD9: 272.4] Diagnosis: KIDNEY TRANSPLANT STATUS[ICD9: V42.0] Diagnosis: HYPERTENSION[ICD9: 401.9] Galina ARTEAGA [facility] CPT-4: 43115 08/20/2012 OFFICE/OUTPATIENT VISIT EST Diagnosis: 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I, UNCONTROLLED[ICD9: 250.02] Diagnosis: HYPERTENSION[ICD9: 401.9] Galina ARTEAGA [facility] CPT-4: 15596 07/03/2012 OFFICE/OUTPATIENT VISIT EST Diagnosis: 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I, UNCONTROLLED[ICD9: 250.02] Diagnosis: HYPERTENSION[ICD9: 401.9] Galina ARTEAGA [facility] CPT-4: 58076 06/21/2012 OFFICE/OUTPATIENT VISIT EST Diagnosis: 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I, UNCONTROLLED[ICD9: 250.02] Diagnosis: HYPERTENSION[ICD9: 401.9] Diagnosis: HYPERLIPIDEMIA NEC/NOS[ICD9: 272.4] Diagnosis: KIDNEY TRANSPLANT STATUS[ICD9: V42.0] Galina SMITH [facility] CPT-4: 95241 05/30/2012 ([id number]) OFFICE/OUTPATIENT VISIT EST Diagnosis: HYPERTENSION[ICD9: 401.9] Diagnosis: VISUAL DISTURBANCE[ICD9: 368.9] Galina SMITH [facility] CPT-4: 62987 05/21/2012 ([id number]) OFFICE/OUTPATIENT VISIT EST Diagnosis: HYPERTENSION[ICD9: 401.9] Diagnosis: HYPOTHYROIDISM[ICD9: 244.9] Diagnosis: KIDNEY TRANSPLANT STATUS[ICD9: V42.0] Galina SMITH [facility] CPT-4: 50893 01/24/2012 OFFICE/OUTPATIENT VISIT EST Diagnosis: DIZZINESS/VERTIGO[ICD9: 780.4] Diagnosis: HYPERTENSION[ICD9: 401.9] Galina ARTEAGA [facility] CPT-4: 78257 09/21/2011 ([id number]) OFFICE/OUTPATIENT VISIT EST Diagnosis: HYPERTENSION[ICD9: 401.9] Diagnosis: HYPOTHYROIDISM[ICD9: 244.9] Diagnosis: HYPERLIPIDEMIA NEC/NOS[ICD9: 272.4] Diagnosis: KIDNEY TRANSPLANT STATUS[ICD9: V42.0] Galinamarino CristobalKarol LUIS [facility] CPT-4: 79332 09/12/2011 OFFICE/OUTPATIENT VISIT EST Diagnosis: HYPOTHYROIDISM[ICD9: 244.9] Diagnosis: HYPERTENSION[ICD9: 401.9] Diagnosis: CEPHALGIA[ICD9: 784.0] Galina Velascoranjanatorri DENNISONGALINA SusuKarol [facility] CPT-4: 89067 06/14/2011 OFFICE/OUTPATIENT VISIT EST Diagnosis: HYPERTENSION[ICD9: 401.9] Diagnosis: PHARYNGITIS, ACUTE[ICD9: 462] Diagnosis: HYPOTHYROIDISM[ICD9: 244.9] Galina Rodranjanatorri GALINA RIVAS [facility] CPT-4: 17905 03/03/2011 OFFICE/OUTPATIENT VISIT EST Diagnosis: HYPOTHYROIDISM[ICD9: 244.9] Diagnosis: KIDNEY TRANSPLANT STATUS[ICD9: V42.0] Diagnosis: HYPERTENSION[ICD9: 401.9] Diagnosis: SINUSITIS, ACUTE[ICD9: 461.9] Galina Rodranjanatorri DENNISONGALINA SusuKarol [facility] CPT-4: 60337 01/27/2011 ([id number]) OFFICE/OUTPATIENT VISIT EST Galina Rodranjanatorri SnyderERLIN SusuKarol [facility] CPT-4: 00251 12/02/2010 Plan of Care Planned Activity Notes Codes Status Date Visit Diagnosis Plan: Right lower quadrant pain Discus sal: Check Stat UA, CBC, ESR, CMP Stay NPO If WBC or ESR elevated will need to proceed with CT scan of abdomen/pelvis ICD-9 : 789.03 ICD-10 : R10.31 05/20/2019 Appointment: Gal[facility] [phone] [id number] [facility] 05/20/2019 Visit Diagnosis Plan: Essential (primary) hypertension Discussion: Noncompliant Start amlodopine 5mg daily ICD-9 : 401.9 ICD-10 : I10 02/26/2019 Visit Diagnosis Plan: Mixed hyperlipidemia Discussion: Start atorvastatin 80mg daily ICD-9 : 272.4 ICD-10 : E78.2 02/26/2019 Visit Diagnosis Plan: 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, UNCO NTROLLED Discussion: Check HbA1C ICD-9 : 250.03 ICD-10 : E10.9 02/26/2019 Appointment: Galina Smith WPtel: [address] [place] [address] FOLLOW UP 02/26/2019 Patient Education: atorvastatin- [employer] C[employer]on [phone] [email or web address] Completed 02/26/2019 Appointment: Galina Smith WPtel: [address] [place] [address] LAB 02/19/2019 Appointment: Coleen Frey [address] had 2 flat tires this morning. NO SHOW - FORGIVE N 02/19/2019 Appointment: Galina Smith WPtel: [address] [place] [address] LAB 08/24/2018 Appointment: Galina Smith WPtel: [address] [place] [address] LAB 06/29/2018 Visit Diagnosis Plan: Epigastric pain Discussion: will refer to dr. segura for possible hiatal hernia based on symptoms and symptom relief. ICD-9 : 789.06 ICD-10 : R10.13 06/26/2018 Visit Diagnosis Plan: Slow transit constipation Discus sal: continue with miralax bid until symptoms resolve. once resolved, take daily as maintenance. discussed with patient that miralax can take 3-4 days for full effect. if still having issues later this week, call clinic. ICD-9 : 564.01 ICD-10 : K59.01 06/26/2018 Visit Diagnosis Plan: Type 2 diabetes mellitus with hy perglycemia Discussion: informed patient he is due for a1c, cmp but he had labs done in dec at [facility]. will obtain lab results and order additional labs as needed. ICD-9 : 250.02 ICD-10 : E11.65 06/26/2018 Appointment: Coleen Frey [address] [place], [place] [phone] ACUTE ILLNESS 06/26/2018 Visit Diagnosis Plan: Right lower quadrant pain Discus sal: urine to be sent off for culture and will start antibiotics if needed. samples of miralax given to patient and instructed to take daily. discussed with patient that if no improvement with miralax, culture negative, then will need to have updated ultrasound of transplant and patient verbalized understanding. ICD-9 : 789.03 ICD-10 : R10.31 02/06/2018 Visit Diagnosis Plan: Type 2 diabetes me llitus with diabetic neuropathy, unspecified Discussion: cmp, microalbumin, and a1c o rdered to be completed today. ICD-9 : 250.60 ICD-10 : E11.40 02/06/2018 Appointment: Coleen Frey [address] [place] [address] ACUTE ILLNESS 02/06/2018 Patient Education: Patient Medication Summary Completed 02/06/2018 Visit Diagnosis Plan: Type 2 diabetes mellitus with hy perglycemia Discussion: a1c, cmp drawn today. patient only had tea today and was unsweetened. continue with current dose of medications until labs return. patient had just used the restroom so microalbumin will be completed at next visit. follow up in 3 months or sooner if needed. ICD-9 : 250.02 ICD-10 : E11.65 11/02/2017 Visit Diagnosis Plan: Essential (primary) hypertension Discussion: patient had just left the ER due to an injury with someone in his family so elevated bp most likely r/t stress and anxiety. will recheck at next visit but instructed to monitor at home as well and to call us with worsening symptoms. ICD-9 : 401.9 ICD-10 : I10 11/02/2017 Appointment: Coleen Frey [address] [place], [place] [phone] FOLLOW UP 11/02/2017 Patient Education: Patient Medication Summary Completed 11/02/2017 Visit Diagnosis Plan: Abrasion of right hand, initial encounter Discussion: keflex prescribed for infection. instructed patient to call or rtc next week if no improvement. keep area clean and dry. ICD-9 : 914.0 ICD-10 : S60.511A 07/27/2017 Visit Diagnosis Plan: Type 2 diabetes me llitus with other circulatory complications Discussion: instructed to keep an eye on his feet and to keep them clean and dry. assess feet often for abrasions. will review a1c. ICD-9 : 250.80 ICD-10 : E11.59 07/27/2017 Visit Diagnosis Plan: Encounter for [facility] adult medical examination with abnormal findings Discussion: patient deferred influenza v accine at this time, received tdap shot. routine labs performed earlier today so will obtain results from [facility]. ICD-9 : V70.0 ICD-10 : Z00.01 07/27/2017 Appointment: Coleen Frey [address] [place], [place] [phone] Annual Well Visit 07/27/2017 Patient Education: Patient Medication Summary Completed 07/27/2017 Visit Diagnosis Plan: Type 2 diabetes me llitus with other circulatory complications Recommendations: obtain a1c, lipid panel from [facility] from earlier today. follow up in 3 months with labs. check blood sugars in the am while fasting. Based on a1c, instructed patient to increase levemir to 105 units daily. also, to take 1.5 tablets of lipitor to assist with lowering lipid panel. patient has been losing weight throughout the year and is continuing to work on it. ICD-9 : 250.80 ICD-10 : E11.59 04/05/2017 Visit Diagnosis Plan: Tinea pedis Discussion: nystatin ointment ordered to be placed on foot bid for 10 days. instructed to keep feet clean and dry. ICD-9 : 110.4 ICD-10 : B35.3 04/05/2017 Appointment: [facility] [facility] 04/05/2017 Patient Education: Patient Medication Summary Completed 04/05/2017 Patient Education: Patient Medication Summary Completed 04/05/2017 Care Plan: CBC Pending 04/05/2017 Care Plan: LIPID PANEL LOINC : 06066-3 Pending 04/05/2017 Care Plan: COMPREH[place]AB[place] : 18980-4 Pending 04/05/2017 Visit Plan: Patient admits that has not been watching diet--was drinking pop and eating sugar and anything her wanted up until recent shoulder surgery and would not answer question of if was taking his insulin or not Increase levemir to 90 units daily and call in 1 week with fasting blood sugars Has only been doing 5u of novolog with meals because lost sliding scale--new sliding scale given 06/20/2016 Appointment: Galina Smith WPtel: [address] [place] [address] 06/16 lm-sp 06/20 lm ~sl FOLLOW UP 06/20/2016 Patient Education: Patient Medication Summary Completed 06/20/2016 Patient Education: Patient Medication Summary Completed 05/04/2016 Care Plan: COMPREH[place]ABOL[place] PANEL [place] NC : 67818-1 Pending 05/04/2016 Care Plan: CBC Pending 05/04/2016 Care Plan: LIPID PANEL LOINC : 47103-1 Pending 05/04/2016 Care Plan: A1C HPLC LOINC : 40223-3 Pending 05/04/2016 Visit Plan: Discussed with Dr Luis stephens as above while awaiting specialist to return his call Push fluids Follow up celine if not improving 02/16/2016 Appointment: Missy Dc [address] [place] [address] ACUTE ILLNESS 02/16/2016 Patient Education: Patient Medication Summary Completed 02/16/2016 Visit Plan: Check CMP, TSH, HbA1C, magne sium, UA now Hydrate and monitor blood sugar Use powerade zero in conjunction with water to stay hydrated Discussed elevated blood sugar can cause cramping as well 12/03/2015 Appointment: Galina Smith WPtel: [address] [place] [address] ACUTE ILLNESS 12/03/2015 Patient Education: Patient Medication Summary Completed 12/03/2015 Visit Plan: Labs completed this am in [facility] but do not have results yet. Start Lyrica 75mg PO bid Will Call in a week and let know if pain is improved. 06/24/2015 Appointment: Alejandra Billy WPtel: [address] [place] [address] ACUTE ILLNESS 06/24/2015 Patient Education: Patient Medication Summary Completed 06/24/2015 Patient Education: Lyrica - 18+ - No MA [place] Completed 06/24/2015 Visit Plan: Saline nasal flushes prn. Ty lenol/Motrin prn headache. Notify if persists/symptoms worsening. Obtain most recent lab Warned of increased BS with prednisone--has sliding scale to use 06/11/2015 Appointment: Galina Smith WPtel: [address] [place], [place] [phone] 06/10/15 vm cn....06/10/15 appt confirmed cn Cara ual Well Visit 06/11/2015 Patient Education: Patient Medication Summary Completed 06/11/2015 Appointment: Galina Smith WPtel: [address] [place] [address] FOLLOW UP 10/15/2014 Patient Education: Patient Medication Summary Completed 09/03/2014 Care Plan: COMPREH[place]AB[place] : 611[address]-5 Ordered 09/03/2014 Visit Plan: Obtain most recent lab resul ts Will likely need HbA1C and Lipids if were not done Accuchecks q AC and HS 07/17/2014 Appointment: Galina Smith WPtel: [address] [place], [place] [phone] FOLLOW UP 07/17/2014 Patient Education: Patient Medication Summary Completed 07/17/2014 Appointment: Galina Smith WPtel: [address] [place], [place] [phone] 01/29 01/30 NO SHOW FOLLOW UP 01/30/2014 Visit Plan: Check CMP, HbA1C, CBC, Lipid s Pt sees transplant doctor next month Pt is currently just using insulin prn and monitering BS 10/31/2013 Appointment: Galina Smith WPtel: [address] [place], [place] [phone] [place] FOLLOW UP 10/31/2013 Patient Education: Patient Medication Summary Completed 10/31/2013 Visit Plan: Continue current meds and ac uchecks 08/01/2013 Appointment: Galina Smith WPtel: [address] [place], [place] [phone] 07/31 FOLLOW UP 08/01/2013 Patient Education: Patient Medication Summary Completed 08/01/2013 Appointment: Alejandra Billy WPtel: [address] [place] [address] ACUTE ILLNESS 07/30/2013 Patient Education: Patient Medication Summary Completed 07/30/2013 Visit Plan: Restart Diovan--pt says need s PA Continue fluoxetine at 20mg daily 05/30/2013 Appointment: Galina Smith WPtel: [address] [place] [address] FOLLOW UP 05/30/2013 Patient Education: Patient Medication Summary Completed 05/30/2013 Appointment: Galina Smith WPtel: [address] [place] [address] has appt following day FOLLOW UP 3 Visit Plan: Restart Diovan and Amlodopin e as has been out--new rx sent out Trial of Fluoxetine 20mg q AM Stress Reducers 04/29/2013 Appointment: Galina Smith WPtel: [address] [place] [address] 04/26 MOM made appt. confirmed monday ACUTE ILL NESS 04/29/2013 Patient Education: Patient Medication Summary Completed 04/29/2013 Visit Plan: Continue current meds and ac cuchecks Pt going for fasting lab next month 02/27/2013 Appointment: Galina Smith WPtel: [address] [place], [place] [address] FOLLOW UP 02/27/2013 Patient Education: Patient Medication Summary Completed 02/27/2013 Appointment: Viky Acosta WPtel: [address] [place] [address] ACUTE ILLNESS 01/01/2013 Patient Education: Patient Medication Summary Completed 01/01/2013 Visit Plan: Continue current meds Check fasting lab next week 11/27/2012 Appointment: Galina Smith WPtel: [address] [place] [id number] FOLLOW UP 11/27/2012 Patient Education: Patient Medication Summary Completed 11/27/2012 Visit Plan: Lab discussed Continue curre nt meds and accuchecks Pt sees transplant doctor in in October Check fasting lab and fwup in 3mos 08/28/2012 Appointment: Galina Smith WPtel: [address] [place], [place] [phone] 08/27 FOLLOW UP 08/28/2012 Patient Education: Patient Medication Summary Completed 08/28/2012 Appointment: Galina Smith WPtel: [address] [place], [place] [phone] LAB 08/20/2012 Patient Education: Patient Medication Summary Completed 08/20/2012 Visit Plan: Continue levemir at current dose with accuchecks Use apidra with sliding scale Check Chem 7 and HbA1C in 2mos 07/03/2012 Appointment: Galina Smith WPtel: [address] [place], [place] [phone] 07/02 FOLLOW UP 07/03/2012 Patient Education: Patient Medication Summary Completed 07/03/2012 Visit Plan: Decrease Levemir to 70u q PM Use Apidra sliding scale as ordered with meals Explained to pt that BS is not too low, but due to the fact that his body is used to BS of 500-700, low 100s feels low to him Restart Diovan 320mg daily 06/21/2012 Appointment: Galina Smith WPtel: [address] [place], [place] [phone] ACUTE ILLNESS 06/21/2012 Patient Education: Patient Medication Summary Completed 06/21/2012 Visit Plan: Increase Levemir to 75 u sc q PM Continue sliding scale insulin with accuchecks q AC and HS Call in 1wk with BS readings 05/30/2012 Appointment: Galina Smith WPtel: [address] [place], [place] [phone] Hospital Follow Up 05/30/2012 Patient Education: Patient Medication Summary Completed 05/30/2012 Appointment: Galina Smith WPtel: [address] [place], [place] [phone] 05/21 - cancelled appointment for 05/22 because PT was worke d in on 05/21 FOLLOW UP 05/22/2012 Appointment: Galina Smith WPtel: [address] [place], [place] [phone] WORK IN 05/21/2012 Appointment: Galina Smith WPtel: [address] [place], [place] [phone] [place] LAB 05/21/2012 Patient Education: Patient Medication Summary Completed 05/21/2012 Visit Plan: Continue current meds Obtain most recent lab done at [facility] 01/24/2012 Appointment: Galina Smith WPtel: [address] [place], [place] [phone] voicemail FOLLOW UP 01/24/2012 Patient Education: Patient Medication Summary Completed 01/24/2012 Visit Plan: Decrease Norvasc to 2.5mg da anne marie Check CBC, CMP, TSH, Free T4 09/21/2011 Appointment: Galina Smith WPtel: [address] [place], [place] [phone] ACUTE ILLNESS 09/21/2011 Patient Education: Patient Medication Summary Completed 09/21/2011 Visit Plan: Continue Diovan at current d ose Add amlodopine Check Lipids/LFTs with next lab 09/12/2011 Appointment: Galina Smith WPtel: [address] [place], [place] [phone] [place] FOLLOW UP 09/12/2011 Patient Education: Patient Medication Summary Completed 09/12/2011 Visit Plan: Increase Diovan to 320mg po daily Check TSH and Free T4 with kidney lab next week 06/14/2011 Appointment: Galina Smith WPtel: [address] [place], [place] [phone] [place] FOLLOW UP 06/14/2011 Patient Education: Patient Medication Summary Completed 06/14/2011 Visit Plan: Z-pack then new toothebrush Start Diovan 03/03/2011 Appointment: Galina Smith WPtel: [address] [place] [address] ACUTE ILLNESS 03/03/2011 Patient Education: Patient Medication Summary Completed 03/03/2011 Appointment: Galina Smith WPtel: [address] [place] [address] FOLLOW UP 01/27/2011 Patient Education: Patient Medication Summary Completed 01/27/2011 Visit Plan: Continue current meds and pr oceed with lab per kidney transplant doctor Start Synthroid at 50mcg po daily 12/02/2010 Appointment: Galina Smith WPtel: [address] [place] [address] FOLLOW UP 12/02/2010 Patient Education: Patient Medication Summary Completed 12/02/2010 Appointment: Galina Smith WPtel: [address] [place] [address] Suture Removal 10/20/2009 Patient Education: Patient Medication Summary Completed 10/20/2009 Referral: Rudolph Núñez WPtel: [address] [facility] [address] [place], [place] [id number] Referral Initiated Instructions Comment . Patient admits that has not been watch ing diet--was drinking pop and eating sugar and anything her wanted up until recent shoulder surgery and would not answer question of if was taking his insulin or not Increase levemir to 90 units daily and call in 1 week with fasting blood sugars Has only been doing 5u of novolog with meals because lost sliding scale--new sliding scale given . Discussed with Dr Smith Treatment as above while awaiting specialist to return his call Push fluids Follow up celine if not improving . Check CMP, TSH, HbA1C, magnesium, UA n ow Hydrate and monitor blood sugar Use powerade zero in conjunction with water to stay hydrated Discussed elevated blood sugar can cause cramping as well . Labs completed this am in [facility] do not have results yet. Start Lyrica 75mg PO bid Will Call in a week and let know if pain is improved. . Saline nasal flushes prn. Tylenol/Motr in prn headache. Notify if persists/symptoms worsening. Obtain most recent lab Warned of increased BS with prednisone--has sliding scale to use . Obtain most recent lab results Will likely need HbA1C and Lipids if were not done Accuchecks q AC and HS . Check CMP, HbA1C, CBC, Lipids Pt sees transplant doctor next month Pt is currently just using insulin prn and monitering BS . Continue current meds and acuchecks . Restart Diovan--pt says needs PA Continue fluoxetine at 20mg daily . Restart Diovan and Amlodopine as has b een out--new rx sent out Trial of Fluoxetine 20mg q AM Stress Reducers . Continue current meds and accuchecks Pt going for fasting lab next month . Continue current meds Check fasting lab next week . Lab discussed Continue current meds and accuchecks Pt sees transplant doctor in in October Check fasting lab and fwup in 3mos . Continue levemir at current dose with accuchecks Use apidra with sliding scale Check Chem 7 and HbA1C in 2mos . Decrease Levemir to 70u q PM Use Apidra sliding scale as ordered with meals Explained to pt that BS is not too low, but due to the fact that his body is used to BS of 500-700, low 100s feels low to him Restart Diovan 320mg daily . Increase Levemir to 75 u sc q PM Continue sliding scale insulin with accuchecks q AC and HS Call in 1wk with BS readings . Continue current meds Obtain most recent lab done at [facility] . Decrease Norvasc to 2.5mg daily Check CBC, CMP, TSH, Free T4 . Continue Diovan at current dose Add amlodopine Check Lipids/LFTs with next lab . Increase Diovan to 320mg po daily Check TSH and Free T4 with kidney lab next week . Z-pack then new toothebrush Start Diovan . Continue current meds and proceed with lab per kidney transplant doctor Start Synthroid at 50mcg po daily Medical Equipment No Medical Equipment data Health Concerns Section Health Concerns data not found Goals Section Goals data not found Interventions Section Interventions data not found Health Status Evaluations/Outcomes Section Health Status Evaluations/Outcomes data not found Advance Directives No Advance Directive data
--- OUTSIDE RECORDS SUMMARY | 2019-08-21 00:06 | XMS REPORT | CCD ---
Author Author Cuauhtemoc Smith D.O. Organization [facility] Address [address] [place] [address] Phone Care Team Providers Care Field Ring Assembler Name Role Phone Galina Smith D.O., PP Unavailable CCM Unavailable Summary Purpose Interface Exchange Insurance Providers Payer name Policy type / Coverage type Covered democrat ID Effective Begin Date Effective End Date Blue Cross Blue Shield Blue Cross/Blue Shield [id number] 2017 Unknown Family History Family History data not found Social History Social History Element Codes Description Effective Dates Tobacco history SNOMED CT: [id number] Currently uses smokeless to bacco 06/14/2011 Allergies, [...] ICD-9: V58.44 ICD-10: Z48.298 08/24/2018 Active Other senior care (current) drug therapy ICD-9: V58.69 ICD-10: Z79.899 [...] unit/mL (3 mL) sub cutaneous pen RxNorm: 912293 INJECT 90 UNITS SUBCUTANEOUSLY TWICE DAILY 07/29/2019 12/11/2019 Active Levemir FlexTouch U-100 Insulin 100 unit/mL (3 mL) sub cutaneous pen RxNorm: 761193 INJECT 90 UNITS SUBCUTANEOUSLY TWICE DAILY 06/25/201907/28 Inactive Prograf 0.5 mg capsule RxNorm: 903072 4 Capsule(s) Oral two skinny es a day 05/20/2019 No Stop Date Active pantoprazole 40 mg tablet,delayed release RxNorm: 199494 1 Tablet(s) Oral QD for stomach 05/20/2019 09/17/2019 Active CellCept 500 mg tablet RxNorm: 749692 2 Tablet(s) Oral two time s a day 05/20/2019 No Stop Date Active cephalexin 500 mg capsule RxNorm: 808324 1 Capsule(s) Oral thre e times a day 05/20/2019 05/19/2019 Inactive cephalexin 500 mg capsule RxNorm: 929828 1 Capsule(s) Oral thre e times a day 05/20/2019 05/26/2019 Inactive Levemir FlexTouch U-100 Insulin 100 unit/mL (3 mL) sub cutaneous pen RxNorm: 258477 INJECT 90 UNITS SUBCUTANEOUSLY TWICE DAILY 05/11/201906/24 Inactive Levemir FlexTouch U-100 Insulin 100 unit/mL (3 mL) sub cutaneous pen RxNorm: 066606 100 Unit(s) Subcutaneous two times a day 03/04/2019 06/02/2019 Inactive Levemir FlexTouch U-100 Insulin 100 unit/mL (3 mL) sub cutaneous pen RxNorm: 260056 90 Unit(s) SQ BID 100 Unit(s) Subcutaneous two times a day 0 03/04/2019 03/04/2019 Inactive amlodipine 5 mg tablet RxNorm: 139104 1 Tablet(s) PO QD for BP 02/1008/24/2019 Active atorvastatin 80 mg tablet RxNorm: 662891 1 Tablet(s) PO QD 02/27/2005/26/2019 Inactive Novolog Flexpen U-100 Insulin aspart 100 unit/mL (3 mL ) subcutaneous RxNorm: 1220886 INJECT SUBCUTANEOUSLY NEEDED PER SLIDING SCALE 02/22/2019 No Stop Date Active Levemir FlexTouch U-100 Insulin 100 unit/mL (3 mL) sub cutaneous pen RxNorm: 019763 90 Unit(s) SQ BID 01/08/2019 03/03/2019 Inactive Levemir FlexTouch U-100 Insulin 100 unit/mL (3 mL) sub cutaneous pen RxNorm: 512050 90 Unit(s) SQ BID 12/04/2018 12/03/2018 Inactive Levemir FlexTouch U-100 Insulin 100 unit/mL (3 mL) sub cutaneous pen RxNorm: 126270 90 Unit(s) SQ BID 12/04/2018 01/07/2019 Inactive Levemir FlexTouch U-100 Insulin 100 unit/mL (3 mL) sub cutaneous pen RxNorm: 642555 70 Unit(s) SQ BID 10/26/2018 12/04/2018 Inactive Levemir FlexTouch U-100 Insulin 100 unit/mL (3 mL) sub cutaneous pen RxNorm: 027967 GIVE 90 UNITS SUBCUTANEOUSLY TWICE DAILY 10/08/2018 10/26/2018 Inactive Levemir FlexTouch U-100 Insulin 100 unit/mL (3 mL) sub cutaneous pen RxNorm: 943305 90 Unit(s) SQ BID 07/30/2018 10/07/2018 Inactive Levemir FlexTouch U-100 Insulin 100 unit/mL (3 mL) sub cutaneous pen RxNorm: 622826 90 Unit(s) SQ BID 07/06/2018 07/29/2018 Inactive Pen Needle 31 gauge x 5/16" RxNorm: USE DIRECTED 03/21/2018 Inactive Levemir FlexTouch U-100 Insulin 100 unit/mL (3 mL) sub cutaneous pen RxNorm: 908755 80 Unit(s) SQ BID 02/15/2018 07/06/2018 Inactive Levemir FlexTouch U-100 Insulin 100 unit/mL (3 mL) sub cutaneous pen RxNorm: 151839 INJECT 105 UNITS SUBCUTANEOUSLY IN THE EVENING 01/24/2018 0 02/15/2018 Inactive Levemir FlexTouch U-100 Insulin 100 unit/mL (3 mL) sub cutaneous pen RxNorm: 042307 INJECT 105 UNITS SUBCUTANEOUSLY IN THE EVENING 12/26/2017 0 01/23/2018 Inactive Novolog Flexpen U-100 Insulin aspart 100 unit/mL (3 mL ) subcutaneous RxNorm: 5776267 INJECT SUBCUTANEOUSLY NEEDED PER SLIDING SCALE 12/25/2017 02/21/2019 Inactive Levemir FlexTouch U-100 Insulin 100 unit/mL (3 mL) sub cutaneous pen RxNorm: 265734 70 Unit(s) SQ BID 11/03/2017 11/03/2017 Inactive Levemir FlexTouch U-100 Insulin 100 unit/mL (3 mL) sub cutaneous pen RxNorm: 365573 105 Unit(s) SQ QPM 11/02/2017 11/02/2017 Inactive Levemir FlexTouch U-100 Insulin 100 unit/mL (3 mL) sub cutaneous pen RxNorm: 184193 105 Unit(s) SQ QPM Needs updated labs 11/01/2017 11/01/2017 Amy ctive Levemir FlexTouch U-100 Insulin 100 unit/mL (3 mL) sub cutaneous pen RxNorm: 047753 Unit(s) 105 Unit(s) SQ QPM 09/18/2017 09/18/2017 Inactive Levemir FlexTouch U-100 Insulin 100 unit/mL (3 mL) sub cutaneous pen RxNorm: 859030 105 Unit(s) SQ QPM 08/07/2017 09/18/2017 Inactive cephalexin 500 mg capsule RxNorm: 884947 1 Capsule(s) PO BID 201708/02/2017 Inactive Levemir FlexTouch U-100 Insulin 100 unit/mL (3 mL) sub cutaneous pen RxNorm: 171222 105 Unit(s) SQ QPM 06/07/2017 06/07/2017 Inactive Levemir FlexTouch 100 unit/mL (3 mL) subcutaneous insulin pe n RxNorm: 810956 105 Unit(s) SQ QPM 05/11/2017 06/07/2017 Inactive Lipitor 40 mg tablet RxNorm: 315259 1 Tablet(s) PO QD 04/05/201703/13 Inactive nystatin 100,000 unit/gram topical ointment RxNorm: 002391 1 Gr am(s) TOP BID 04/05/2017 05/02/2017 Inactive Lipitor 40 mg tablet RxNorm: 117092 1.5 Tablet(s) PO QD 04/05/2017 Inactive Diovan 320 mg tablet RxNorm: 777196 1 Tablet(s) PO QD 04/05/201702/10 Inactive Levemir FlexTouch 100 unit/mL (3 mL) subcutaneous insulin pe n RxNorm: 455687 105 Unit(s) SQ QPM 04/05/2017 04/05/2017 Inactive Levemir FlexTouch 100 unit/mL (3 mL) subcutaneous insulin pe n RxNorm: 717468 90 Unit(s) SQ QPM LAST REFILL UNTIL LABS AND APPOINTMENT!!!! 04/05/2017 Inactive Novolog Flexpen 100 unit/mL subcutaneous RxNorm: 9227301 Unit(s) INJECT SUBCUTANEOUSLY NEEDED PER SLIDING SCALE---NEEDS UPDATED LABS 03/07/2017 12/03/2018 Inactive Levemir FlexTouch 100 unit/mL (3 mL) subcutaneous insulin pe n RxNorm: 218170 90 Unit(s) SQ QPM LAST REFILL UNTIL LABS AND APPOINTMENT!!!! 02/17/2017 Inactive Levemir FlexTouch 100 unit/mL (3 mL) subcutaneous insulin pe n RxNorm: 975998 90 Unit(s) SQ QPM NEEDS FASTING LABS AND APPOINTMENT BEFORE FURTHER REFILLS 12/22/2016 02/17/2017 Inactive Novolog Flexpen U-100 Insulin aspart 100 unit/mL subcutaneou s RxNorm: 3831744 Unit(s) INJECT SUBCUTANEOUSLY NEEDED PER SLIDING SCALE---NEEDS UPDATED LABS 11/28/2016 03/07/2017 Inactive Levemir FlexTouch 100 unit/mL (3 mL) subcutaneous insulin pe n RxNorm: 200731 90 Unit(s) VAG QPM 11/08/2016 12/22/2016 Inactive Levemir FlexTouch 100 unit/mL (3 mL) subcutaneous insulin pe n RxNorm: 748504 90 Unit(s) VAG QPM 11/08/2016 12/21/2016 Inactive Levemir FlexTouch 100 unit/mL (3 mL) subcutaneous insulin pe n RxNorm: 420041 80 Unit(s) VAG QPM 09/05/2016 11/08/2016 Inactive Levemir FlexTouch 100 unit/mL (3 mL) subcutaneous insulin pe n RxNorm: 500671 85 Unit(s) SQ QD 07/22/2016 09/05/2016 Inactive Levemir FlexTouch 100 unit/mL (3 mL) subcutaneous insulin pe n RxNorm: 620458 85 Unit(s) SQ QD 07/04/2016 07/21/2016 Inactive Levemir FlexTouch 100 unit/mL (3 mL) subcutaneous insulin pe n RxNorm: 815621 85 Unit(s) SQ QD 06/14/2016 06/19/2016 Inactive Levemir FlexTouch 100 unit/mL (3 mL) subcutaneous insulin pe n RxNorm: 604356 85 Unit(s) SQ QD 05/03/2016 05/22/2016 Inactive Levemir FlexTouch 100 unit/mL (3 mL) subcutaneous insulin pe n RxNorm: 271207 85 Unit(s) SQ QD 05/03/2016 05/02/2016 Inactive Levemir FlexTouch 100 unit/mL (3 mL) subcutaneous insulin pe n RxNorm: 216759 85 Unit(s) SQ QD 03/14/2016 04/22/2016 Inactive cefuroxime axetil 250 mg tablet RxNorm: 248854 1 Tablet(s) PO BID 0 02/16/2016 02/25/2016 Inactive Levemir FlexTouch 100 unit/mL (3 mL) subcutaneous insulin pe n RxNorm: 373668 85 Unit(s) SQ QD 02/03/2016 03/13/2016 Inactive Levemir FlexTouch 100 unit/mL (3 mL) subcutaneous insulin pe n RxNorm: 205528 85 Unit(s) SQ QD 12/07/2015 02/02/2016 Inactive Pen Needle 31 gauge x 5/16" RxNorm: USE DIRECTED 11/19/201510/2015 Inactive Levemir FlexTouch 100 unit/mL (3 mL) subcutaneous insulin pe n RxNorm: 847000 INJECT 75 UNITS SUBCUTANEOUSLY ONCE DAILY; NEED LABS AND APPT 10/06/2015 12/04/2015 Inactive Novolog Flexpen 100 unit/mL subcutaneous RxNorm: 7804410 INJECT SUBCUTANEOUSLY NEEDED PER SLIDING SCALE 09/15/2015 11/28/2016 Inactive Levemir FlexTouch 100 unit/mL (3 mL) subcutaneous insulin pe n RxNorm: 631583 75 Unit(s) SQ QD Needs lab and appointment 07/13/2015 10/05/2015 Inactive Lyrica 75 mg capsule RxNorm: 240814 1 Capsule(s) PO BID 06/24/2015 Inactive Levemir FlexTouch 100 unit/mL (3 mL) subcutaneous insulin pe n RxNorm: 335637 75 Unit(s) SQ QD Needs lab and appointment 06/23/2015 07/12/2015 Inactive Novolog Flexpen 100 unit/mL subcutaneous RxNorm: 8511608 Unit(s) SQ as needed Sliding scale 06/15/2015 09/14/2015 Inactive Flonase Allergy Relief 50 mcg/actuation nasal spray,suspensi on RxNorm: 2 [place] NASAL QHS 06/11/2015 12/02/2015 Inactive prednisone 20 mg tablet RxNorm: 582643 1 Tablet(s) PO T ID for 3 days then 1 po BID for 3 days then one daily for 3 days 06/11/2015 12/02/2015 Inactiv e cefdinir 300 mg capsule RxNorm: 685756 2 Capsule(s) PO QD 06/11/2015 06/24/2015 Inactive Levemir FlexTouch 100 unit/mL (3 mL) subcutaneous insulin pe n RxNorm: 202177 75 Unit(s) SQ QD Needs lab and appointment 05/29/2015 06/22/2015 Inactive Novolog 100 unit/mL subcutaneous solution RxNorm: 721559 Unit(s) SQ Inject as directed using sliding scale B 05/29/2015 12/03/2018 Inactive Levemir Flexpen 100 unit/mL (3 mL) solution subcutaneo us insulin pen RxNorm: 598326 INJECT 75 UNITS SUBCUTANEOUSLY EVERY DAY 05/11/2015 05/29/2015 Inactive Levemir FlexTouch 100 unit/mL (3 mL) subcutaneous insulin pe n RxNorm: 752511 75 Unit(s) SQ QHS 03/30/2015 12/03/2018 Inactive Levemir FlexTouch 100 unit/mL (3 mL) subcutaneous insulin pe n RxNorm: 106785 75 Unit(s) SQ QHS 03/09/2015 03/29/2015 Inactive Contour Test Strips RxNorm: Miscellaneous 01/27/2015 No Stop Date Ac tive Novolog 100 unit/mL subcutaneous solution RxNorm: 167778 Unit(s) SQ Inject as directed using sliding scale B 01/27/2015 05/29/2015 Inactive Levemir Flexpen 100 unit/mL (3 mL) solution subcutaneo us insulin pen RxNorm: 783609 INJECT 75 UNITS SUBCUTANEOUSLY EVERY DAY 11/05/2014 03/09/2015 Inactive Levemir Flexpen 100 unit/mL (3 mL) solution subcutaneo us insulin pen RxNorm: 846374 INJECT 75 UNITS SUBCUTANEOUSLY EVERY DAY 08/13/2014 10/31/2014 Inactive Novolog 100 unit/mL subcutaneous solution RxNorm: 444668 Unit(s) SQ Inject as directed using sliding scale B 07/15/2014 01/26/2015 Inactive Apidra SoloStar 100 unit/mL subcutaneous insulin pen RxNorm: 088477 Unit(s) SQ INJECT DIRECTED USING SLIDING SCALE B 07/11/2014 07/14/2014 Inactiv e Diovan 320 mg tablet RxNorm: 696228 1 Tablet(s) PO QD 06/10/201405/13 Inactive Apidra SoloStar 100 unit/mL subcutaneous insulin pen RxNorm: 860740 Unit(s) SQ INJECT DIRECTED USING SLIDING SCALE B 04/18/2014 07/10/2014 Inactiv e Levemir Flexpen 100 unit/mL (3 mL) solution subcutaneo us insulin pen RxNorm: 407529 Unit(s) SQ INJECT 75 UNITS SUBCUTANEOUSLY EVERY DAY 02/29/20 14 02/27/2014 Inactive [SAVINGS FOR UNINSURED PATIE NTS -- BIN:[id number], PCN: [id number], Group: [id number], ID# [id number], Process claim through [employer], for questions: . THIS IS NOT INSURANCE.] Apidra SoloStar 100 unit/mL subcutaneous insulin pen RxNorm: 798791 Unit(s) SQ INJECT DIRECTED USING SLIDING SCALE B 09/05/2013 04/17/2014 Inactiv e Pen Needle 31 gauge x 5/16" RxNorm: Miscellaneou s USE DIRECTED WITH LEVEMIR AND APIDRA 08/23/2013 11/18/2015 Inactive Prograf 1 mg capsule RxNorm: 471670 2 Capsule(s) PO BID Generic OK to fill 08/21/2013 05/19/2019 Inactive Diovan 320 mg tablet RxNorm: 554958 1 Tablet(s) PO QD 05/30/201305/12 Inactive fluoxetine 20 mg tablet RxNorm: 813919 1 Tablet(s) PO QAM 05/30/2013 07/31/2013 Inactive fluoxetine 20 mg tablet RxNorm: 692960 1 Tablet(s) PO QAM 04/29/2013 05/29/2013 Inactive amlodipine 5 mg tablet RxNorm: 641319 1 Tablet(s) PO QD 04/29/2013 Inactive ketoconazole 2 % topical cream RxNorm: 090171 Application TOP B ID for 2-4wks 04/29/2013 05/12/2013 Inactive Diovan 320 mg tablet RxNorm: 960933 1 Tablet(s) PO QD 04/29/201305/14 Inactive Apidra SoloStar 100 unit/mL subcutaneous insulin pen RxNorm: 899708 Unit(s) SQ Sliding Scale B 02/19/2013 09/05/2013 Inactive Levemir Flexpen 100 unit/mL (3 mL) solution subcutaneo us insulin pen RxNorm: 661445 Insulin Pen SQ INJECT 75 UNITS SUBCUTANEOUSLY EVERY DAY 01/1002/28/2014 Inactive Septra DS 800 mg-160 mg tablet RxNorm: 228033 1 Tablet(s) PO BI D antibiotic 01/01/2013 01/07/2013 Inactive ketoconazole 2 % topical cream RxNorm: 446717 1 Application TOP BID 01/01/2013 01/14/2013 Inactive Levemir Flexpen 100 unit/mL (3 mL) Sub-Q Insulin Pen RxNorm: 369896 Unit(s) SQ INJECT 75 UNITS SUB-Q ONCE A DAY 12/07/2012 No Stop Date Active Levemir Flexpen 100 unit/mL (3 mL) Sub-Q Insulin Pen RxNorm: 967186 Unit(s) SQ INJECT 75 UNITS SUB-Q ONCE A DAY 10/22/2012 12/07/2012 Inactive Levemir Flexpen 100 unit/mL (3 mL) Sub-Q Insulin Pen RxNorm: 994553 75 Unit(s) SQ QHS 08/20/2012 10/22/2012 Inactive Diovan 320 mg tablet RxNorm: 733985 1 Tablet(s) PO QD 07/30/201204/12 Inactive Levemir Flexpen 100 unit/mL (3 mL) Sub-Q Insulin Pen RxNorm: 501142 Insulin Pen SQ INJECT 75 UNITS SUB-Q ONCE A DAY 07/30/2012 10/21/2012 Inactive Levemir Flexpen 100 unit/mL (3 mL) Sub-Q Insulin Pen RxNorm: 919798 75 Unit(s) SQ QHS 07/30/2012 08/19/2012 Inactive Levemir Flexpen 100 unit/mL (3 mL) Sub-Q Insulin Pen RxNorm: 303684 75 Unit(s) SQ QHS 07/30/2012 07/29/2012 Inactive Diovan 320 mg tablet RxNorm: 256594 1 Tablet(s) PO QD 06/21/201202/2013 Inactive Diovan 320 mg tablet RxNorm: 612206 1 Tablet(s) PO QD 06/21/201202/2013 Inactive Diovan 320 mg tablet RxNorm: 668942 1 Tablet(s) PO QD 06/21/201207/13 Inactive CellCept 250 mg capsule RxNorm: 053812 4 Capsule(s) PO BID 06/14/19 13 05/19/2019 Inactive Prograf 1 mg capsule RxNorm: 445128 2 Capsule(s) PO BID Generic OK to fill 06/14/2012 06/20/2012 Inactive Apidra SoloStar 100 unit/mL Sub-Q Insulin Pen RxNorm: 352673 Unit(s) SQ Sliding Scale B 06/13/2012 12/03/2018 Inactive Levemir Flexpen 100 unit/mL (3 mL) Sub-Q Insulin Pen RxNorm: 563335 75 Unit(s) SQ QD 06/13/2012 No Stop Date Active Apidra SoloStar 100 unit/mL Sub-Q Insulin Pen RxNorm: 306389 Unit(s) SQ Sliding Scale B 06/13/2012 No Stop Date Active One Touch Delica Lancets RxNorm: Miscellaneous 06/13/2012 04/04/2017 Inactive Lipitor 40 mg tablet RxNorm: 610288 1 Tablet(s) PO QD 05/30/201208/10 Inactive Diovan 320 mg tablet RxNorm: 484696 1 Tablet(s) PO QD 05/30/201202/2013 Inactive Tricor 145 mg tablet RxNorm: 375840 1 Tablet(s) PO QD 05/30/201208/10 Inactive Lipitor 20 mg Tab RxNorm: 224010 1 Tablet(s) PO QD 09/12/2011 012 Inactive Synthroid 50 mcg Tab RxNorm: 250556 1 Tablet(s) PO QD 09/12/201111/11 Inactive Diovan 320 mg tablet RxNorm: 903311 1 Tablet(s) PO QD 09/12/201102/11 Inactive amlodipine 5 mg tablet RxNorm: 211166 1 Tablet(s) PO QD 09/12/2011 Inactive Diovan 320 mg Tab RxNorm: 545850 1 Tablet(s) PO QD 06/14/2011 012 Inactive Diovan 160 mg Tab RxNorm: 980241 1 Tablet(s) PO QD 03/03/2011 012 Inactive cefdinir 300 mg Cap RxNorm: 184658 2 Capsule(s) PO QD 01/27/201101/11 Inactive Synthroid 50 mcg Tab RxNorm: 005538 1 Tablet(s) PO QD 12/02/201001/11 Inactive Multivitamin & Mineral Formula Tab RxNorm: 1 Tablet(s) PO QD No St art Active Miralax 17 gram/dose oral powder RxNorm: 202915 PO BID in 6-8 o unces of water No Start Date Active Tylenol Extra Strength 500 mg tablet RxNorm: 236234 Tablet(s) P O as needed No Start Date Active Tricor Oral RxNorm: Oral No Start Date 05/29/2012 Inactive MagOx 400 mg tablet RxNorm: 003752 1 Tablet(s) PO QD No Start Date Inactive sodium bicarbonate Oral RxNorm: Oral No Start Date 06/19/2016 I nactive Fish Oil 1,000 mg capsule RxNorm: 1 Capsule(s) PO QD No Start Date 04/04/2017 Inactive Novofine Misc RxNorm: Miscellaneous No Start Date 06/12/2012 Inactiv e Percocet 5 mg-325 mg tablet RxNorm: 0595671 Tablet(s) PO as need ed Dr Parson No Start Date 04/04/2017 Inactive Contour Test Strips RxNorm: miscellaneous No Start Date 01/26/2015 I nactive Prograf 1 mg capsule RxNorm: 514452 2 Capsule(s) PO BID No Start Da te 06/13/2012 Inactive Zantac 150 mg Tab RxNorm: 051484 Tablet(s) PO PRN No Start Date 12/01 Inactive Levemir FlexTouch 100 unit/mL (3 mL) subcutaneous insulin pe n RxNorm: 405501 75 Unit(s) SQ QHS No Start Date 03/08/2015 Inactive CellCept 250 mg capsule RxNorm: 607671 4 Capsule(s) PO BID No Start Date 06/13/2012 Inactive Novolog 100 unit/mL subcutaneous solution RxNorm: 205822 Unit(s) SQ Inject as directed using sliding scale B No Start Date 07/14/2014 Inactive Novolog Flexpen 100 unit/mL subcutaneous RxNorm: 7670907 Unit(s) SQ as needed Sliding scale No Start Date 06/14/2015 Inactive Apidra SoloStar 100 unit/mL Sub-Q Insulin Pen RxNorm: 685958 Unit(s) SQ Sliding Scale B No Start Date 06/12/2012 Inactive Levemir FlexTouch U-100 Insulin 100 unit/mL (3 mL) sub cutaneous pen RxNorm: 168168 70 Unit(s) SQ BID No Start Date 02/06/2018 Inactive Pen Needle 31 X 5/16" RxNorm: Miscellaneous No Start Date 08/23/2013 Inactive Synthroid 50 mcg Tab RxNorm: 137026 1 Tablet(s) PO QD No Start Date 0 09/11/2011 Inactive Levemir Flexpen 100 unit/mL (3 mL) Sub-Q Insulin Pen RxNorm: 216393 70 Unit(s) SQ QHS No Start Date 07/29/2012 Inactive Levemir FlexTouch U-100 Insulin 100 unit/mL (3 mL) sub cutaneous pen RxNorm: 905505 80 Unit(s) SQ BID No Start Date 02/14/2018 Inactive Levemir FlexTouch 100 unit/mL (3 mL) subcutaneous insulin pe n RxNorm: 445152 80 Unit(s) SQ QPM No Start Date 09/04/2016 Inactive Lipitor 40 mg tablet RxNorm: 096361 1 Tablet(s) PO QD No Start Date 1 Inactive Ultram 50 mg tablet RxNorm: 163677 2 Tablet(s) PO TID as needed for pain No Start Date 06/10/2015 Inactive Prograf 1 mg Cap RxNorm: 960535 2 Capsule(s) PO BID No Start Date 02/2012 Inactive insulin needles (disposable) 32 x 5/16" RxNorm: Miscellaneous for use with flex pen No Start Date 04/04/2017 Inactive Levemir FlexTouch U-100 Insulin 100 unit/mL (3 mL) sub cutaneous pen RxNorm: 655755 90 Unit(s) SQ BID No Start Date 07/05/2018 Inactive Levemir Flexpen 100 unit/mL (3 mL) Sub-Q Insulin Pen RxNorm: 386178 65 Unit(s) SQ QD No Start Date 06/12/2012 Inactive pantoprazole 40 mg tablet,delayed release RxNorm: 239684 1 Tabl et(s) PO QD No Start Date 05/19/2019 Inactive Zithromax Z-Mateus 250 mg Tab RxNorm: 214591 Tablet(s) PO No Start Date 06/13/2011 Inactive as directed Lipitor 20 mg Tab RxNorm: 352188 1 Tablet(s) PO QD No Start Date [...] Date S ervice Location GLYCOSYLATED HEMOGLOBIN TEST 53572 Hgb A1c 49418-7 13.9 % 0 02/27/2019 Unknown MEAN GLUC 1386520 Calc Mean Gluc 352 mg/dL 02/27/2019 Unkn own MICROALBUMIN URINE RANDOM 25961 U Microalbumin 2259.0 mg /L 02/26/2019 Unknown MICROALBUMIN URINE RANDOM 21970 U Creatinine 143 mg/dL 0 02/26/2019 Unknown MICROALBUMIN URINE RANDOM 26564 ALB/CR Ratio 1579.7 mg/g CR 02/26/2019 Unknown MAGNESIUM 69323 MAGNESIUM 1.4 mEq/L 02/19/2019 Unknown GFR CALC 4464959 GFR Afr Amr 45 mL/min 02/19/2019 Unknown GFR CALC 4235483 GFR Non Afr Amr 37 mL/min 02/19/2019 Unk nown [facility] 76236 Cholesterol 250 mg/dL 02/19/2019 Unkno wn [facility] 52159 Triglyceride 465 mg/dL 02/19/2019 Unkn own [facility] 73305 HDL CHOLESTEROL 30 mg/dL 02/19/2019 U nknown [facility] 86919 Chol/HDL Ratio 8.33 ratio 02/19/2019 U nknown [facility] 47436 NON-HDL Chol 220 mg/dL 02/19/2019 Unkn own [facility] 84371 LDL Cholesterol N/A Trig >400 019 Unknown [facility] 75196 Fasting Unknown 02/19/2019 Unknown COMPREHENSIVE METABOLIC 99469 AST 20 U/L 2018 Unknown COMPREHENSIVE METABOLIC 83813 ALT 30 U/L 2018 Unknown COMPREHENSIVE METABOLIC 40408 BUN 27 mg/dL 2018 Unknown COMPREHENSIVE METABOLIC 96052 ALBUMIN 3.7 g/dL 2018 Unknown COMPREHENSIVE METABOLIC 95409 CHLORIDE 105 mmol/L 02/19 Unknown COMPREHENSIVE METABOLIC 46493 Bili Total 0.5 mg/dL 02/19 Unknown COMPREHENSIVE METABOLIC 86053 ALK PHOS 79 U/L 2018 Unknown COMPREHENSIVE METABOLIC 86317 SODIUM 137 mmol/L 02/19 Unknown COMPREHENSIVE METABOLIC 61151 CREATININE 2.10 mg/dL 02/10 Unknown COMPREHENSIVE METABOLIC 71371 CALCIUM 9.5 mg/dL 2018 Unknown COMPREHENSIVE METABOLIC 88192 POTASSIUM 4.2 mmol/L 02/19 Unknown COMPREHENSIVE METABOLIC 25761 Total Protein 6.5 g/dL Unknown COMPREHENSIVE METABOLIC 97121 Glucose 202 mg/dL 2018 Unknown COMPREHENSIVE METABOLIC 23305 Bicarbonate 22 mmol/L 02/10 Unknown COMPREHENSIVE METABOLIC 85417 AGAP 10 mmol/L 2018 Unknown L[facility] GROUP 25259 Cholesterol 320 mg/dL 08/27/2018 Unkno wn LIPID GROUP 00538 Triglyceride 444 mg/dL 08/27/2018 Unkn own LIPID GROUP 99316 HDL CHOLESTEROL 39 mg/dL 08/27/2018 U nknown LIPID GROUP 32251 Chol/HDL Ratio 8.21 ratio 08/27/2018 U nknown LIPID GROUP 96389 NON-HDL Chol 281 mg/dL 08/27/2018 Unkn own LIPID GROUP 59418 LDL Cholesterol N/A Trig >400 019 Unknown LIP[facility] GROUP 74018 Fasting Unknown 08/27/2018 Unknown PHOSPHORUS 9737924 PHOSPHORUS 2.1 mg/dL 08/24/2018 Unknown PROTEIN/CREAT URINE WITH RATIO 70739|26956 U Protein 515 mg/ dL 08/24/2018 Unknown PROTEIN/CREAT URINE WITH RATIO 45558|39458 U Creatinine 116 mg/dL 08/24/2018 Unknown PROTEIN/CREAT URINE WITH RATIO 57674|00546 Prot:Creat Rat 4440 mg/g 08/24/2018 Unknown MAGNESIUM 64142 MAGNESIUM 1.4 mEq/L 08/24/2018 Unknown GFR CALC 9682094 GFR Afr Amr 53 mL/min 08/24/2018 Unknown GFR CALC 0447474 GFR Non Afr Amr 44 mL/min 08/24/2018 [place] [address] Glucose TNP:Unknown Can shaw Reason 08/24/2018 [place] [address] CREATININE TNP:Unknown Cancel Reason 08/24/2018 [place] [address] BUN TNP:Unknown Can shaw Reason 08/24/2018 [place] [address] SODIUM TNP:Unknown Can shaw Reason 08/24/2018 [place] [address] POTASSIUM TNP:Unknown Cancel Reason 08/24/2018 [place] [address] CHLORIDE TNP:Unknown Can shaw Reason 08/24/2018 [place] [address] Bicarbonate TNP:Unknow n Cancel Reason 08/24/2018 [place] [address] AGAP TNP:Unknown Can shaw Reason 08/24/2018 [place] [address] CALCIUM TNP:Unknown Can shaw Reason 08/24/2018 Unknown COMPREHENSIVE METABOLIC 78006 AST 21 U/L 2018 Unknown COMPREHENSIVE METABOLIC 56884 ALT 35 U/L 2018 Unknown COMPREHENSIVE METABOLIC 25467 BUN 25 mg/dL 2018 Unknown COMPREHENSIVE METABOLIC 55049 ALBUMIN 4.5 g/dL 2018 Unknown COMPREHENSIVE METABOLIC 15522 CHLORIDE 106 mmol/L 08/24 Unknown COMPREHENSIVE METABOLIC 93905 Bili Total 0.4 mg/dL 08/24 Unknown COMPREHENSIVE METABOLIC 61280 ALK PHOS 64 U/L 2018 Unknown COMPREHENSIVE METABOLIC 12490 SODIUM 141 mmol/L 08/24 Unknown COMPREHENSIVE METABOLIC 31364 CREATININE 1.81 mg/dL 08/10 Unknown COMPREHENSIVE METABOLIC 34919 CALCIUM 10.3 mg/dL 08/24 Unknown COMPREHENSIVE METABOLIC 50451 POTASSIUM 3.4 mmol/L 08/24 Unknown COMPREHENSIVE METABOLIC 34620 Total Protein 7.2 g/dL Unknown COMPREHENSIVE METABOLIC 99467 Glucose 101 mg/dL 2018 Unknown COMPREHENSIVE METABOLIC 55043 Bicarbonate 23 mmol/L 08/10 Unknown COMPREHENSIVE METABOLIC 70785 AGAP 12 mmol/L 2018 Unknown UA W/MICR 22305 UA Urine Appear Normal 08/24/2018 Unk nown UA W/MICR 63028 UA Protein 3+ 08/24/2018 Unknown UA W/MICR 07803 UA Hemoglobin Trace 08/24/2018 Unkno wn UA W/MICR 73219 UA Glucose 3+ 08/24/2018 Unknown UA W/MICR 03170 UA Ketones Negative 08/24/2018 Unknown UA W/MICR 90350 UA pH 6.0 08/24/2018 Unknown UA W/MICR 81778 U Spec [place] 1.025 08/24/2018 Unkn own UA W/MICR 02198 UA Bilirubin Negative 08/24/2018 Unknow n UA W/MICR 57877 UA Leuk Esteras Negative 08/24/2018 Unk nown UA W/MICR 60213 UA Nitrite NEG 08/24/2018 Unknown UA W/MICR 34638 UA WBC/hpf 1 08/24/2018 Unknown UA W/MICR 46355 UA RBC auto 12.9 /uL 08/24/2018 Unknown UA W/MICR 55240 UA RBC hpf 2 08/24/2018 Unknown UA W/MICR 77964 UA WBC auto 5.9 /uL 08/24/2018 Unknown UA W/MICR 12526 UA SQ EPI auto 5.2 /uL 08/24/2018 Unkn own UA W/MICR 14116 UA H Cast auto 0.10 /uL 08/24/2018 Unkn own PROGRAF [id number] Prograf 7.3 ng/mL 08/24/2018 Unknown MICROALBUMIN URINE RANDOM 23050 U Microalbumin 3485.2 mg /L 08/24/2018 Unknown MICROALBUMIN URINE RANDOM 02205 U Creatinine 116 mg/dL 0 08/24/2018 Unknown MICROALBUMIN URINE RANDOM 54924 ALB/CR Ratio 3004.5 mg/g CR 08/24/2018 Unknown GLYCOSYLATED HEMOGLOBIN TEST 30040 Hgb A1c 61644-1 13.3 % 0 06/29/2018 Unknown MEAN GLUC [id number] Calc Mean Gluc 335 mg/dL 06/29/2018 Unkn own COMPREHENSIVE METABOLIC 80068 AST 17 U/L 2017 Unknown COMPREHENSIVE METABOLIC 54266 ALT 24 U/L 2017 Unknown COMPREHENSIVE METABOLIC 13074 BUN 24 mg/dL 2017 Unknown COMPREHENSIVE METABOLIC 51044 ALBUMIN 3.9 g/dL 2017 Unknown COMPREHENSIVE METABOLIC 81137 CHLORIDE 108 mmol/L 02/06 Unknown COMPREHENSIVE METABOLIC 44848 Bili Total 0.6 mg/dL 02/06 Unknown COMPREHENSIVE METABOLIC 97460 ALK PHOS 67 U/L 2017 Unknown COMPREHENSIVE METABOLIC 35292 SODIUM 140 mmol/L 02/06 Unknown COMPREHENSIVE METABOLIC 31147 CREATININE 1.75 mg/dL 01/11 Unknown COMPREHENSIVE METABOLIC 49085 CALCIUM 9.6 mg/dL 2017 Unknown COMPREHENSIVE METABOLIC 10553 POTASSIUM 3.8 mmol/L 02/06 Unknown COMPREHENSIVE METABOLIC 30841 Total Protein 7.1 g/dL Unknown COMPREHENSIVE METABOLIC 27083 Glucose 62 mg/dL 2017 Unknown COMPREHENSIVE METABOLIC 54801 Bicarbonate 23 mmol/L 01/11 Unknown COMPREHENSIVE METABOLIC 11356 AGAP 9 mmol/L 2017 Unknown GLYCOSYLATED HEMOGLOBIN TEST 08483 Hgb A1c 52129-8 13.0 % 0 02/06/2018 Unknown GFR CALC [id number] GFR Non Afr Amr 46 mL/min 02/06/2018 Unk nown GFR CALC 0613519 GFR Afr Amr 55 mL/min 02/06/2018 Unknown MICROALBUMIN URINE RANDOM 63699 U Microalbumin 669.0 mg/ L 02/06/2018 Unknown MICROALBUMIN URINE RANDOM 36856 U Creatinine 92 mg/dL 0 02/06/2018 Unknown MICROALBUMIN URINE RANDOM 01176 ALB/CR Ratio 727.2 mg/gC R 02/06/2018 Unknown MEAN GLUC 8107694 Calc Mean Gluc 326 mg/dL 02/06/2018 Unkn own GLYCOSYLATED HEMOGLOBIN TEST 73131 Hgb A1c 46386-0 14.3 % 0 12/03/2015 Unknown THYROID STIMULATING HORMONE 86953 TSH 1.909 uIU/mL 12/03/2015 Unknown MAGNESIUM 78492 MAGNESIUM 1.5 mEq/L 12/03/2015 Unknown GFR CALC 5450008 GFR Non Afr Amr 39 mL/min 12/03/2015 Unk nown GFR CALC 0428794 GFR Afr Amr 48 mL/min 12/03/2015 Unknown MEAN GLUC 9323727 Mean Glucose 364 mg/dL 12/03/2015 Unknow n COMPREHENSIVE METABOLIC 52963 AST 34 U/L 2015 Unknown COMPREHENSIVE METABOLIC 05953 ALT 78 U/L 2015 Unknown COMPREHENSIVE METABOLIC 99846 BUN 29 mg/dL 2015 Unknown COMPREHENSIVE METABOLIC 31038 ALBUMIN 4.3 g/dL 2015 Unknown COMPREHENSIVE METABOLIC 92382 CHLORIDE 93 mmol/L 2015 Unknown COMPREHENSIVE METABOLIC 50077 Bili Total 0.7 mg/dL 12/02 Unknown COMPREHENSIVE METABOLIC 96746 ALK PHOS 83 U/L 2015 Unknown COMPREHENSIVE METABOLIC 66517 SODIUM 125 mmol/L 12/02 Unknown COMPREHENSIVE METABOLIC 75913 CREATININE 2.01 mg/dL 11/11 Unknown COMPREHENSIVE METABOLIC 98945 CALCIUM 9.8 mg/dL 2015 Unknown COMPREHENSIVE METABOLIC 90775 POTASSIUM 4.3 mmol/L 12/02 Unknown COMPREHENSIVE METABOLIC 25481 Total Protein 7.3 g/dL Unknown COMPREHENSIVE METABOLIC 43333 Glucose 542 mg/dL 2015 Unknown COMPREHENSIVE METABOLIC 34999 Bicarbonate 23 mmol/L 11/11 Unknown COMPREHENSIVE METABOLIC 93214 AGAP 9 mmol/L 2015 Unknown COMPREHENSIVE METABOLIC 75299 AST 31 U/L 2013 Unknown COMPREHENSIVE METABOLIC 24094 ALT 52 IU/L 2013 Unknown COMPREHENSIVE METABOLIC 49579 BUN 26 MG/DL 2013 Unknown COMPREHENSIVE METABOLIC 50882 ALBUMIN 4.9 GM/DL 2013 Unknown COMPREHENSIVE METABOLIC 72998 CHLORIDE 108 MMOL/L 07/30 Unknown COMPREHENSIVE METABOLIC 90884 BILI TOT 0.4 MG/DL 2013 Unknown COMPREHENSIVE METABOLIC 17519 ALK PHOS 68 U/L 2013 Unknown COMPREHENSIVE METABOLIC 67460 SODIUM 138 MMOL/L 07/30 Unknown COMPREHENSIVE METABOLIC 08760 CREATININE 2.02 MG/DL 07/13 Unknown COMPREHENSIVE METABOLIC 07743 CALCIUM 10.3 MG/DL 07/30 Unknown COMPREHENSIVE METABOLIC 31593 POTASSIUM 5.0 MMOL/L 07/30 Unknown COMPREHENSIVE METABOLIC 76812 PROT TOT 7.3 GM/DL 2013 Unknown COMPREHENSIVE METABOLIC 70863 Glucose 89 MG/DL 2013 Unknown COMPREHENSIVE METABOLIC 37096 BICARB 24 MMOL/L 2013 Unknown COMPREHENSIVE METABOLIC 63177 ANION GAP 6 MEQ/L 2013 Unknown GFR CALC 4157350 GFR AA 48.0L ML/MIN 07/30/2013 Unknow n GFR CALC 8169716 GFR NON-AA 40.0L ML/MIN 07/30/2013 Unkno wn COMPLETE BLOOD COUNT 0489507 WBC 7.9 10e9/L 07/30/19 14 Unknown COMPLETE BLOOD COUNT 6114529 RBC 4.94 10e12/L 2013 Unknown COMPLETE BLOOD COUNT 1215179 HGB 14.0 g/dL 4 Unknown COMPLETE BLOOD COUNT 2923450 HCT DET 41.5 % 4 Unknown COMPLETE BLOOD COUNT 9413281 MCV 84.0 fL 4 Unknown COMPLETE BLOOD COUNT 0479916 MCH 28.3 pg 4 Unknown COMPLETE BLOOD COUNT 6033023 MCHC 33.7 g/dL 4 Unknown COMPLETE BLOOD COUNT 7395519 PLT 176 10e9/L 07/30/19 14 Unknown COMPLETE BLOOD COUNT 6247761 MPV 11.8 fL 4 Unknown COMPLETE BLOOD COUNT 8478048 CLAYTON % 75.4 % 4 Unknown COMPLETE BLOOD COUNT 5974989 LY % 13.7 % 4 Unknown COMPLETE BLOOD COUNT 9793581 MON % 8.9 % 4 Unknown COMPLETE BLOOD COUNT 8016902 EOS % 1.7 % 4 Unknown COMPLETE BLOOD COUNT 5342399 BASO % 0.3 % 4 Unknown COMPLETE BLOOD COUNT 0065066 RDW 13.4 % 4 Unknown COMPLETE BLOOD COUNT 8258945 ABS CLAYTON 5.96 10e9/L 014 Unknown COMPLETE BLOOD COUNT [id number] ABS LYMPH 1.08 10e9/L 014 Unknown COMPLETE BLOOD COUNT [id number] ABS MONO 0.70 10e9/L 014 Unknown COMPLETE BLOOD COUNT [id number] ABS EOS 0.13 10e9/L 014 Unknown COMPLETE BLOOD COUNT 9753922 ABS BASO 0.02 10e9/L 014 Unknown COMPLETE BLOOD COUNT 9688417 RDW-SD 40.2 fL 4 Unknown C-REACTIVE PROTEIN (CRP) QUANT 50861 CRP 0.2 MG/DL 07/30/2013 Unknown CANCEL 6810035 CANCEL FOOTNOTE 05/23/2012 Unknown PEND CHEM PEND CHEM FOOTNOTE 05/22/2012 Unknown COMPREHENSIVE METABOLIC 90089 AST 61 U/L 2011 Unknown COMPREHENSIVE METABOLIC 69091 ALT 106 U/L 2011 Unknown COMPREHENSIVE METABOLIC 85057 BUN 33 MG/DL 2011 Unknown COMPREHENSIVE METABOLIC 80215 ALBUMIN 5.0 GM/DL 2011 Unknown COMPREHENSIVE METABOLIC 93697 CHLORIDE 89 MMOL/L 2011 Unknown COMPREHENSIVE METABOLIC 28970 BILI TOT 0.6 MG/DL 2011 Unknown COMPREHENSIVE METABOLIC 41267 ALK PHOS 129 U/L 2011 Unknown COMPREHENSIVE METABOLIC 04871 SODIUM 120 MMOL/L 05/21 Unknown COMPREHENSIVE METABOLIC 44461 CREATININE 2.23 MG/DL 05/12 Unknown COMPREHENSIVE METABOLIC 49126 CALCIUM 9.8 MG/DL 2011 Unknown COMPREHENSIVE METABOLIC 05936 POTASSIUM 5.3 MMOL/L 05/21 Unknown COMPREHENSIVE METABOLIC 82685 PROT TOT 7.8 GM/DL 2011 Unknown COMPREHENSIVE METABOLIC 14880 Glucose 789 MG/DL 2011 Unknown COMPREHENSIVE METABOLIC 71675 BICARB 20 MMOL/L 2011 Unknown COMPREHENSIVE METABOLIC 49169 ANION GAP 11 MMOL/L 2011 Unknown GFR CALC 3323198 GFR AA 43.0L ML/MIN 05/21/2012 Unknow n GFR CALC 4511126 GFR NON-AA 36.0L ML/MIN 05/21/2012 Unkno wn THYROID STIMULATING HORMONE 61565 TSH 1.499 uIU/ML 01/27/2011 Unknown FREE T4 84152 FREE T4 1.15 NG/DL 01/27/2011 Unknown Procedures Procedure Codes Date ROUTINE VENIPUNCTURE CPT-4: 68419 02/26/2019 A1C HPLC CPT-4: 96234 02/26/2019 MICROALBUMIN QUANTITATIVE CPT-4: 44891 02/26/2019 ROUTINE VENIPUNCTURE CPT-4: 90546 02/19/2019 METABOLIC PANEL TOTAL CA CPT-4: 98756 02/19/2019 MICROALBUMIN, QUANTITATIVE CPT-4: 23712 02/19/2019 LIPID PANEL CPT-4: 96573 02/19/2019 COMPREHEN METABOLIC PANEL CPT-4: 25053 02/19/2019 ASSAY OF MAGNESIUM CPT-4: 64374 02/19/2019 METABOLIC PANEL TOTAL CA CPT-4: 90755 08/24/2018 COMPREHEN METABOLIC PANEL CPT-4: 25351 08/24/2018 ASSAY OF MAGNESIUM CPT-4: 27948 08/24/2018 MICROALBUMIN QUANTITATIVE CPT-4: 26015 08/24/2018 PROTEIN/CREAT URINE WITH RATIO CPT-4: 26963|48564 9 PHOSPHORUS CPT-4: 8893162 08/24/2018 LIPID PANEL CPT-4: 57944 08/24/2018 ROUTINE VENIPUNCTURE CPT-4: 73926 06/29/2018 A1C HPLC CPT-4: 47949 06/29/2018 URINALYSIS NONAUTO W/O SCOPE CPT-4: 40750 02/06/2018 URINE CULTURE/ COLONY COUNT CPT-4: 28887 02/06/2018 MICROALBUMIN QUANTITATIVE CPT-4: 75595 02/06/2018 ROUTINE VENIPUNCTURE CPT-4: 82942 02/06/2018 COMPREHEN METABOLIC PANEL CPT-4: 21574 02/06/2018 A1C HPLC CPT-4: 52729 02/06/2018 ROUTINE VENIPUNCTURE CPT-4: 41077 11/02/2017 COMPREHEN METABOLIC PANEL CPT-4: 65871 11/02/2017 A1C HPLC CPT-4: 58640 11/02/2017 TDAP VACCINE 7 YRS/> IM CPT-4: 58881 07/27/2017 IMMUNIZATION ADMIN CPT-4: 06835 07/27/2017 URINALYSIS NONAUTO W/O SCOPE CPT-4: 76344 02/16/2016 URINE CULTURE/ COLONY COUNT CPT-4: 47445 02/16/2016 PRESCRIP TRANSMIT VIA ERX SY CPT-4: G8553 02/16/2016 ROUTINE VENIPUNCTURE CPT-4: 65510 12/03/2015 ASSAY THYROID STIM HORMONE CPT-4: 59335 12/03/2015 COMPREHEN METABOLIC PANEL CPT-4: 03340 12/03/2015 A1C HPLC CPT-4: 98613 12/03/2015 ASSAY OF MAGNESIUM CPT-4: 45154 12/03/2015 URINALYSIS NONAUTO W/O SCOPE CPT-4: 16321 12/03/2015 URINE CULTURE/ COLONY COUNT CPT-4: 75639 12/03/2015 URINALYSIS NONAUTO W/O SCOPE CPT-4: 18095 07/30/2013 URINE CULTURE/ COLONY COUNT CPT-4: 13907 07/30/2013 ROUTINE VENIPUNCTURE CPT-4: 63650 07/30/2013 COMPLETE CBC W/AUTO DIFF WBC CPT-4: 80340 07/30/2013 COMPREHEN METABOLIC PANEL CPT-4: 54916 07/30/2013 C-REACTIVE PROTEIN CPT-4: 28308 07/30/2013 ROUTINE VENIPUNCTURE CPT-4: 27862 08/20/2012 ASSAY OF FREE THYROXINE CPT-4: 32866 08/20/2012 ASSAY THYROID STIM HORMONE CPT-4: 56983 08/20/2012 COMPREHEN METABOLIC PANEL CPT-4: 25969 08/20/2012 COMPLETE CBC W/AUTO DIFF WBC CPT-4: 25548 08/20/2012 LIPID PANEL CPT-4: 94431 08/20/2012 A1C GLYCOSYLATED HEMOGLOBIN TEST CPT-4: 93945 013 ASSAY, GLUCOSE, BLOOD QUANT CPT-4: 86764 06/21/2012 ASSAY, GLUCOSE, BLOOD QUANT CPT-4: 87995 05/21/2012 ROUTINE VENIPUNCTURE CPT-4: 64116 05/21/2012 COMPREHEN METABOLIC PANEL CPT-4: 81447 05/21/2012 A1C GLYCOSYLATED HEMOGLOBIN TEST CPT-4: 57832 012 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 SMKLESS 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 USER CPT-4: G8456 06/14/2011 PT VIS DOC USE EHR CER ATCB CPT-4: G8447 06/14/2011 PRESCRIP TRANSMIT VIA ERX SY CPT-4: G8553 06/14/2011 PT VIS DOC USE EHR CER ATCB CPT-4: G8447 03/03/2011 PRESCRIP TRANSMIT VIA ERX SY CPT-4: G8553 03/03/2011 ROUTINE VENIPUNCTURE CPT-4: 31943 01/27/2011 ASSAY OF FREE THYROXINE CPT-4: 77481 01/27/2011 ASSAY THYROID STIM HORMONE CPT-4: 35710 01/27/2011 PT VIS DOC USE EHR CER [...] 1: 158/90 Code: 8480-6 BMI: 34.3 Code: 82508-6 Heart Rate 1: 78 bpm Height: 6'1" Respiratory Rate: 20 bpm SpO2: 98% Tempera ture: 36.6 (C) / 97.8 (F) Weight: 260 lbs 11/02/2017 Blood Pressure 1: 134/92 Code: 8480-6 BMI: 32.3 Code: 89414-9 Heart Rate 1: 72 bpm Height: 6'1" SpO2: 98% Temperature: 36.4 (C) / 97.5 (F) Weight: 245 lbs 07/27/2017 Blood Pressure 1: 136/64 Code: 8480-6 BMI: 30.9 Code: 87521-3 Heart Rate 1: 78 bpm Height: 6'1" Respiratory Rate: 22 bpm SpO2: 98% Tempera ture: 36.4 (C) / 97.6 (F) Weight: 234 lbs 04/05/2017 Blood Pressure 1: 126/90 Code: 8480-6 BMI: 33.5 Code: 09057-0 Heart Rate 1: 76 bpm Height: 6'1" Respiratory Rate: 20 bpm SpO2: 97% Tempera ture: 37.0 (C) / 98.6 (F) Weight: 254 lbs 06/20/2016 Blood Pressure 1: 122/74 Code: 8480-6 BMI: 35.2 Code: 49488-4 Heart Rate 1: 80 bpm Height: 6'1" Respiratory Rate: 20 bpm SpO2: 97% Tempera ture: 36.9 (C) / 98.5 (F) Weight: 267 lbs 02/16/2016 Blood Pressure 1: 136/82 Code: 8480-6 BMI: 36.4 Code: 87118-4 Heart Rate 1: 66 bpm Height: 6'1" Respiratory Rate: 18 bpm SpO2: 96% Tempera ture: 36.4 (C) / 97.6 (F) Weight: 276 lbs 12/03/2015 Blood Pressure 1: 122/86 Code: 8480-6 BMI: 39.2 Code: 29497-9 Heart Rate 1: 76 bpm Height: 6' Respiratory Rate: 20 bpm Temperature: 37 .1 (C) / 98.7 (F) Weight: 289 lbs 06/24/2015 Blood Pressure 1: 136/84 Code: 8480-6 BMI: 40.7 Code: 90301-8 Heart Rate 1: 84 bpm Height: 6' Respiratory Rate: 20 bpm Temperature: 36 .9 (C) / 98.4 (F) Weight: 300 lbs 06/11/2015 Blood Pressure 1: 160/82 Code: 8480-6 BMI: 40.4 Code: 28311-3 Heart Rate 1: 82 bpm Height: 6' Respiratory Rate: 22 bpm Temperature: 36 .5 (C) / 97.7 (F) Weight: 298 lbs 07/17/2014 Blood Pressure 1: 132/84 Code: 8480-6 BMI: 41.0 Code: 34916-0 Heart Rate 1: 76 bpm Height: 6'1" Respiratory Rate: 20 bpm Temperature: 36 .9 (C) / 98.4 (F) Weight: 311 lbs 10/31/2013 Blood Pressure 1: 132/80 Code: 8480-6 BMI: 41.2 Code: 05816-8 Heart Rate 1: 84 bpm Height: 6'1" Respiratory Rate: 22 bpm Temperature: 36 .1 (C) / 97.0 (F) Weight: 312 lbs 08/01/2013 Blood Pressure 1: 142/86 Code: 8480-6 BMI: 42.4 Code: 44402-3 Heart Rate 1: 84 bpm Height: 6' [...] 1: 156/108 Code: 8480-6 BMI: 41.9 Code: 21254-7 Heart Rate 1: 92 bpm Height: 6' Respiratory Rate: 20 bpm Temperature: 36 .9 (C) / 98.4 (F) Weight: 309 lbs 02/27/2013 Blood Pressure 1: 162/114 Code: 8480-6 BMI: 41.0 Code: 10193-7 Heart Rate 1: 84 bpm Height: 6' Respiratory Rate: 20 bpm Temperature: 36 .7 (C) / 98.0 (F) Weight: 302 lbs 01/01/2013 Blood Pressure 1: 138/86 Code: 8480-6 BMI: 41.0 Code: 97198-7 Heart Rate 1: 76 bpm Height: 6' Respiratory Rate: 20 bpm Temperature: 36 .7 (C) / 98.0 (F) Weight: 302 lbs 11/27/2012 Blood Pressure 1: 136/92 Code: 8480-6 BMI: 41.2 Code: 86222-7 Heart Rate 1: 80 bpm Height: 6' Respiratory Rate: 20 bpm Temperature: 36 .6 (C) / 97.8 (F) Weight: 304 lbs 08/28/2012 Blood Pressure 1: 126/80 Code: 8480-6 BMI: 41.8 Code: 92735-2 Heart Rate 1: 80 bpm Height: 6' Respiratory Rate: 20 bpm Temperature: 36 .4 (C) / 97.6 (F) Weight: 308 lbs 07/03/2012 Blood Pressure 1: 114/80 Code: 8480-6 BMI: 42.3 Code: 73525-6 Heart Rate 1: 72 bpm Height: 6' Respiratory Rate: 20 bpm Temperature: 36 .6 (C) / 97.9 (F) Weight: 312 lbs 06/21/2012 Blood Pressure 1: 152/100 Code: 8480-6 BMI: 43.3 Code: 41921-8 Heart Rate 1: 72 bpm Height: 6' Temperature: 36.8 (C) / 98.2 (F) Weight: 319 lbs 05/30/2012 Blood Pressure 1: 122/78 Code: 8480-6 BMI: 43.0 Code: 71050-4 Heart Rate 1: 72 bpm Height: 6' Respiratory Rate: 20 bpm Temperature: 36 .7 (C) / 98.0 (F) Weight: 317 lbs 05/21/2012 Blood Pressure 1: 126/94 Code: 8480-6 BMI: 44.2 Code: 47776-4 Heart Rate 1: 92 bpm Height: 6' Respiratory Rate: 20 bpm Temperature: 36 .6 (C) / 97.9 (F) Weight: 326 lbs 01/24/2012 Blood Pressure 1: 122/90 Code: 8480-6 BMI: 44.5 Code: 17563-7 Heart Rate 1: 76 bpm Height: 6' Respiratory Rate: 20 bpm Temperature: 36 .8 (C) / 98.2 (F) Weight: 328 lbs 09/21/2011 Blood Pressure 1: 116/80 Code: 8480-6 BMI: 44.1 Code: 91148-5 Heart Rate 1: 92 bpm Height: 6' Respiratory Rate: 20 bpm Temperature: 36 .7 (C) / 98.1 (F) Weight: 325 lbs 09/12/2011 Blood Pressure 1: 166/110 Code: 8480-6 BMI: 45.0 Code: 04001-9 Heart Rate 1: 80 bpm Height: 6' Respiratory Rate: 20 bpm Temperature: 36 .5 (C) / 97.7 (F) Weight: 332 lbs 06/14/2011 Blood Pressure 1: 142/84 Code: 8480-6 BMI: 45.6 Code: 84413-1 Heart Rate 1: 104 bpm Height: 6' Respiratory Rate: 20 bpm Temperature: 36 .4 (C) / 97.5 (F) Weight: 336 lbs 03/03/2011 Blood Pressure 1: 130/96 Code: 8480-6 Heart Rate 1: 86 bpm Temperature: 36.1 (C) / 97.0 (F) Weight: 327 lbs 01/27/2011 Blood Pressure 1: 142/96 Code: 8480-6 BMI: 42.0 Code: 85261-0 Heart Rate 1: 72 bpm Height: 6'2" [...] lower quadrant pain[ICD10: R10.31] Galina SMITH DO [facility] CPT-4: 79086 05/20/2019 ([id number]) OFFICE/OUTPATIENT VISIT EST Diagnosis: Essential (primary) hypertension[ICD10: I10] Diagnosis: 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, 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] Diagnosis: Kidney transplant status[ICD10: Z94.0] Diagnosis: Chronic kidney disease, stage 3 (moderate)[ICD10: N18.3] Diagnosis: Mixed hyperlipidemia[ICD10: E78.2] Galina LEAL BRIANA [employer] CPT-4: 51709 02/26/2019 ([id number]) NURSE/OUTPATIENT VISIT EST Diagnosis: 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2] Galina LEAL BRIANA [employer] CPT-4: 15905 08/24/2018 ([id number]) NURSE/OUTPATIENT VISIT EST Diagnosis: Type 2 diabetes mellitus with diabetic neuropathy, unspecified[ICD10: E11.40] Diagnosis: Type 2 diabetes mellitus with hyperglycemia[ICD10: E11.65] 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] Diagnosis: Essential (primary) hypertension[ICD10: I10] Galina ASENCIO [employer] CPT-4: 48625 06/29/2018 ([id number]) OFFICE/OUTPATIENT VISIT EST Diagnosis: Slow transit constipation[ICD10: K59.01] Diagnosis: Epigastric pain[ICD10: R10.13] Diagnosis: Type 2 diabetes mellitus with hyperglycemia[ICD10: E11.65] Coleen DENNISONQUELINE [employer] CPT-4: 78476 06/26/2018 ([id number]) OFFICE/OUTPATIENT VISIT EST Diagnosis: Right lower quadrant pain[ICD10: R10.31] Diagnosis: Type 2 diabetes mellitus with diabetic neuropathy, unspecified[ICD10: E11.40] Coleen SMITH [employer] [facility] CPT-4: 61732 ([id number]) OFFICE/OUTPATIENT VISIT EST Diagnosis: Type 2 diabetes mellitus with hyperglycemia[ICD10: E11.65] Diagnosis: Mixed hyperlipidemia[ICD10: E78.2] Diagnosis: Essential (primary) hypertension[ICD10: I10] Coleen SMITH [employer] [facility] CPT-4: 33075 11/02/2017 ([id number]) PREV VISIT EST AGE 18-39 Diagnosis: Encounter for general adult medical examination with abnormal findings[ICD10: Z00.01] Diagnosis: Abrasion of right hand, initial encounter[ICD10: S60.511A] 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] Coleen SMITH [employer] [facility] CPT-4: 49686 OFFICE/OUTPATIENT VISIT EST 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] Diagnosis: Tinea pedis[ICD10: B35.3] Coleen ARTEAGA [employer] [facility] CPT-4: 54071 04/05/2017 ([id number]) OFFICE/OUTPATIENT VISIT EST Diagnosis: 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, 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] Diagnosis: Mixed hyperlipidemia[ICD10: E78.2] Diagnosis: Essential (primary) hypertension[ICD10: I10] Galina SMITH [employer] [facility] CPT-4: 79837 06/20/2016 ([id number]) OFFICE/OUTPATIENT VISIT EST Diagnosis: Urinary tract infection, site not specified[ICD10: N39.0] MissyCatrachito SMITH [employer] [facility] CPT-4: 28289 02/16/2016 ([id number]) OFFICE/OUTPATIENT VISIT EST Diagnosis: Type 2 diabetes mellitus with hyperglycemia[ICD10: E11.65] Diagnosis: Cramp and spasm[ICD10: R25.2] Diagnosis: Hematuria, unspecified[ICD10: R31.9] Galina SMITH [facility] CPT-4: 01321 12/03/2015 OFFICE/OUTPATIENT VISIT EST Diagnosis: Type 2 diabetes mellitus with diabetic neuropathy, unspecified[ICD10: E11.40] Alejandra SMITH DO [facility] CPT-4: 19042 06/24/2015 ([id number]) OFFICE/OUTPATIENT VISIT EST Diagnosis: Acute sinusitis, unspecified[ICD10: J01.90] Diagnosis: Otitis media, unspecified, bilateral[ICD10: H66.93] Galina SMITH [facility] CPT-4: 76667 06/11/2015 ([id number]) OFFICE/OUTPATIENT VISIT EST Diagnosis: 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[ICD9: 250.01] Diagnosis: HYPERTENSION[ICD9: 401.9] Diagnosis: HYPERLIPIDEMIA NEC/NOS[ICD9: 272.4] Diagnosis: KIDNEY TRANSPLANT STATUS[ICD9: V42.0] [facility] 06282 07/17/2014 ([id number]) OFFICE/OUTPATIENT VISIT EST Diagnosis: 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[ICD9: 250.01] Diagnosis: HYPERTENSION[ICD9: 401.9] Galina ARTEAGA [facility] CPT-4: 88637 10/31/2013 ([id number]) OFFICE/OUTPATIENT VISIT EST Diagnosis: 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I[ICD9: 250.00] Diagnosis: HYPERTENSION[ICD9: 401.9] Diagnosis: HYPERLIPIDEMIA NEC/NOS[ICD9: 272.4] Galina LAWTON LUMA Meron [facility] CPT-[facility]: 20727 08/01/2013 OFFICE/OUTPATIENT VISIT EST Diagnosis: HEMATURIA NOS[ICD9: 599.70] Diagnosis: Abdominal pain, acute, right lower quadrant[ICD9: 789.03] Diagnosis: KIDNEY TRANSPLANT STATUS[ICD9: V42.0] Alejandra SMITH [facility] CPT-4: 10237 07/30/2013 ([id number]) OFFICE/OUTPATIENT VISIT EST Diagnosis: Uncontrolled hypertension[ICD9: 401.9] Diagnosis: BRIEF DEPRESSIVE REACT[ICD9: 309.0] Galina MEJIAMary [facility] CPT-[facility]: 77518 05/30/2013 ([id number]) OFFICE/OUTPATIENT VISIT EST Diagnosis: HYPERTENSION[ICD9: 401.9] Diagnosis: Anticipatory grieving[ICD9: 309.0] Galina MEJIAMARILUZ [facility]ANA [facility] CPT-[facility]: 29928 04/29/2013 ([id number]) OFFICE/OUTPATIENT VISIT EST Diagnosis: 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I, UNCONTROLLED[ICD9: 250.02] Diagnosis: HYPERTENSION[ICD9: 401.9] Diagnosis: HYPOTHYROIDISM[ICD9: 244.9] Diagnosis: KIDNEY TRANSPLANT STATUS[ICD9: V42.0] Galina THRASHER ERLIN [facility]arol [facility] CPT-[facility]: 30177 02/27/2013 OFFICE/OUTPATIENT VISIT EST Diagnosis: Paronychia[ICD9: 681.9] Diagnosis: ONYCHOMYCOSIS[ICD9: 110.1] Viky ASENCIO [facility] CPT-[facility]: 29038 01/01/2013 ([id number]) OFFICE/OUTPATIENT VISIT EST Diagnosis: 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I, UNCONTROLLED[ICD9: 250.02] Diagnosis: HYPERLIPIDEMIA NEC/NOS[ICD9: 272.4] Diagnosis: HYPERTENSION[ICD9: 401.9] Diagnosis: KIDNEY TRANSPLANT STATUS[ICD9: V42.0] Diagnosis: HYPOTHYROIDISM[ICD9: 244.9] Galina Cristobal. O RENDER [facility] CPT-4: 15280 11/27/2012 ([id number]) OFFICE/OUTPATIENT VISIT EST Diagnosis: 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I[ICD9: 250.00] Diagnosis: HYPOTHYROIDISM[ICD9: 244.9] Diagnosis: HYPERLIPIDEMIA NEC/NOS[ICD9: 272.4] Diagnosis: HYPERTENSION[ICD9: 401.9] Galina ASENCIO SusuKarol ORE NDER [facility] CPT-4: 40155 08/28/2012 ([id number]) OFFICE/OUTPATIENT VISIT EST Diagnosis: HYPOTHYROIDISM[ICD9: 244.9] Diagnosis: 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I, UNCONTROLLED[ICD9: 250.02] Diagnosis: HYPERLIPIDEMIA NEC/NOS[ICD9: 272.4] Diagnosis: KIDNEY TRANSPLANT STATUS[ICD9: V42.0] Diagnosis: HYPERTENSION[ICD9: 401.9] Galina ARTEAGA [facility] CPT-4: 40688 08/20/2012 OFFICE/OUTPATIENT VISIT EST Diagnosis: 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I, UNCONTROLLED[ICD9: 250.02] Diagnosis: HYPERTENSION[ICD9: 401.9] Galina ARTEAGA [facility] CPT-4: 78285 07/03/2012 OFFICE/OUTPATIENT VISIT EST Diagnosis: 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I, UNCONTROLLED[ICD9: 250.02] Diagnosis: HYPERTENSION[ICD9: 401.9] Galina ARTEAGA [facility] CPT-4: 01161 06/21/2012 OFFICE/OUTPATIENT VISIT EST Diagnosis: 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I, UNCONTROLLED[ICD9: 250.02] Diagnosis: HYPERTENSION[ICD9: 401.9] Diagnosis: HYPERLIPIDEMIA NEC/NOS[ICD9: 272.4] Diagnosis: KIDNEY TRANSPLANT STATUS[ICD9: V42.0] Galina SMITH [facility] CPT-4: 00782 05/30/2012 ([id number]) OFFICE/OUTPATIENT VISIT EST Diagnosis: HYPERTENSION[ICD9: 401.9] Diagnosis: VISUAL DISTURBANCE[ICD9: 368.9] Galina SMITH [facility] CPT-4: 42004 05/21/2012 ([id number]) OFFICE/OUTPATIENT VISIT EST Diagnosis: HYPERTENSION[ICD9: 401.9] Diagnosis: HYPOTHYROIDISM[ICD9: 244.9] Diagnosis: KIDNEY TRANSPLANT STATUS[ICD9: V42.0] Galina SMITH [facility] CPT-4: 55426 01/24/2012 OFFICE/OUTPATIENT VISIT EST Diagnosis: DIZZINESS/VERTIGO[ICD9: 780.4] Diagnosis: HYPERTENSION[ICD9: 401.9] Galina ARTEAGA [facility] CPT-4: 20581 09/21/2011 ([id number]) OFFICE/OUTPATIENT VISIT EST Diagnosis: HYPERTENSION[ICD9: 401.9] Diagnosis: HYPOTHYROIDISM[ICD9: 244.9] Diagnosis: HYPERLIPIDEMIA NEC/NOS[ICD9: 272.4] Diagnosis: KIDNEY TRANSPLANT STATUS[ICD9: V42.0] Galinamarino CristobalKarol LUIS [facility] CPT-4: 19030 09/12/2011 OFFICE/OUTPATIENT VISIT EST Diagnosis: HYPOTHYROIDISM[ICD9: 244.9] Diagnosis: HYPERTENSION[ICD9: 401.9] Diagnosis: CEPHALGIA[ICD9: 784.0] Galina Velascoranjanatorri DENNISONGALINA SusuKarol [facility] CPT-4: 79293 06/14/2011 OFFICE/OUTPATIENT VISIT EST Diagnosis: HYPERTENSION[ICD9: 401.9] Diagnosis: PHARYNGITIS, ACUTE[ICD9: 462] Diagnosis: HYPOTHYROIDISM[ICD9: 244.9] Galina Rodranjanatorri GALINA RIVAS [facility] CPT-4: 45022 03/03/2011 OFFICE/OUTPATIENT VISIT EST Diagnosis: HYPOTHYROIDISM[ICD9: 244.9] Diagnosis: KIDNEY TRANSPLANT STATUS[ICD9: V42.0] Diagnosis: HYPERTENSION[ICD9: 401.9] Diagnosis: SINUSITIS, ACUTE[ICD9: 461.9] Galina Rodranjanatorri DENNISONGALINA [facility]Karol [facility]: 25056 01/27/2011 ([id number]) OFFICE/OUTPATIENT VISIT EST Galina Rodranjanatorri SnyderERLIN SusuKarol [facility] CPT[facility]: 17446 12/02/2010 Plan of Care Planned Activity Notes Codes Status Date Visit Diagnosis Plan: Right lower quadrant pain Discus sal: Check Stat UA, CBC, ESR, CMP Stay NPO If WBC or ESR elevated will need to proceed with CT scan of abdomen/pelvis ICD-9 : 789.03 ICD-10 : R10.31 05/20/2019 Appointment: Galina Smtih [facility]Ptel[facility] [phone] [id number] [facility] 05/20/2019 Visit Diagnosis Plan: Essential (primary) hypertension Discussion: Noncompliant Start amlodopine 5mg daily ICD-9 : 401.9 ICD-10 : I10 02/26/2019 Visit Diagnosis Plan: Mixed hyperlipidemia Discussion: Start atorvastatin 80mg daily ICD-9 : 272.4 ICD-10 : E78.2 02/26/2019 Visit Diagnosis Plan: 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, UNCO NTROLLED Discussion: Check HbA1C ICD-9 : 250.03 ICD-10 : E10.9 02/26/2019 Appointment: Galina Smith WPtel: [address] [place] [address] FOLLOW UP 02/26/2019 Patient Education: atorvastatin- OptimizeRX Coupon [phone] [email or web address] Completed 02/26/2019 Appointment: Galina Smith WPtel: [address] [place] [address] LAB 02/19/2019 Appointment: Coleen Frey [address] had 2 flat tires this morning. NO SHOW - FORGIVE N 02/19/2019 Appointment: Galina Smith WPtel: [address] [place] [address] LAB 08/24/2018 Appointment: Galina Smith WPtel: [address] [place] [address] LAB 06/29/2018 Visit Diagnosis Plan: Epigastric pain [...] he had labs done in dec at [facility]. will obtain lab results and order additional labs as needed. ICD-9 : 250.02 ICD-10 : E11.65 06/26/2018 Appointment: Coleen Frey [address] [place], [place] [phone] ACUTE ILLNESS 06/26/2018 Visit Diagnosis Plan: Right [...] ICD-10 : E11.40 02/06/2018 Appointment: Coleen Frey [address] [place] [address] ACUTE ILLNESS 02/06/2018 Patient Education: Patient Medication [...] ICD-10 : I10 11/02/2017 Appointment: Coleen Frey [address] [place], [place] [phone] FOLLOW UP 11/02/2017 Patient Education: Patient Medication [...] E11.59 07/27/2017 Visit Diagnosis Plan: Encounter for [facility] adult medical examination with abnormal findings Discussion: patient deferred influenza v accine at this time, received tdap shot. routine labs performed earlier today so will obtain results from [facility]. ICD-9 : V70.0 ICD-10 : Z00.01 07/27/2017 Appointment: Coleen Frey [address] [place], [place] [phone] Annual Well Visit 07/27/2017 Patient Education: Patient [...] : B35.3 04/05/2017 App[facility]ment: [facility] [facility] 04/05/2017 Patient Education: Patient Medication Summary Completed 04/05/2017 Patient Education: Patient Medication Summary Completed 04/05/2017 Care Plan: CBC Pending 04/05/2017 Care Plan: LIPID PANEL LOINC : 33773-7 Pending 04/05/2017 Care Plan: COMPREH[place]AB[place] : 95478-1 Pending 04/05/2017 Visit Plan: Patient admits that [...] scale given 06/20/2016 Appointment: Galina Smith WPtel: [address] [place] [address] 06/16 lm-sp 06/20 lm ~sl FOLLOW UP 06/20/2016 Patient Education: Patient Medication Summary Completed 06/20/2016 Patient Education: Patient Medication Summary Completed 05/04/2016 Care Plan: COMPREH[place]AB[place] : 463[address]-6 Pending 05/04/2016 Care Plan: CBC Pending 05/04/2016 Care Plan: LIPID PANEL LOINC : 28564-1 Pending 05/04/2016 Care Plan: A1C HPLC LOINC : 89004-2 Pending 05/04/2016 Visit Plan: Discussed with Dr Luis stephens as above while awaiting specialist to return his call Push fluids Follow up celine if not improving 02/16/2016 Appointment: Missy Dc [address] [place] [address] ACUTE ILLNESS 02/16/2016 Patient Education: Patient Medication Summary Completed 02/16/2016 Visit Plan: Check CMP, TSH, HbA1C, magne sium, UA now Hydrate and monitor blood sugar Use powerade zero in conjunction with water to stay hydrated Discussed elevated blood sugar can cause cramping as well 12/03/2015 Appointment: Galina Smith WPtel: [address] [place] [address] ACUTE ILLNESS 12/03/2015 Patient Education: Patient Medication Summary Completed 12/03/2015 Visit Plan: Labs completed this am in [place] but do not have results yet. Start Lyrica 75mg PO bid Will Call in a week and let know if pain is improved. 06/24/2015 Appointment: Alejandra Billy WPtel: [address] [place] [address] ACUTE ILLNESS 06/24/2015 Patient Education: Patient Medication Summary Completed 06/24/2015 Patient Education: Lyrica - 18+ - No [place] Completed 06/24/2015 Visit Plan: Saline nasal flushes prn. Ty lenol/Motrin prn headache. Notify if persists/symptoms worsening. Obtain most recent lab Warned of increased BS with prednisone--has sliding scale to use 06/11/2015 Appointment: Galina Smith WPtel: [address] [place], [place] [phone] 06/10/15 vm cn....06/10/15 appt confirmed cn Cara ual Well Visit 06/11/2015 Patient Education: Patient Medication Summary Completed 06/11/2015 Appointment: Galina Smith WPtel: [address] [place] [address] FOLLOW UP 10/15/2014 Patient Education: Patient Medication Summary Completed 09/03/2014 Care Plan: COMPREH[place] : [address]-8 Ordered 09/03/2014 Visit Plan: Obtain most recent lab resul ts Will likely need HbA1C and Lipids if were not done Accuchecks q AC and HS 07/17/2014 Appointment: Galina Smith WPtel: [address] [place], [place] [phone] FOLLOW UP 07/17/2014 Patient Education: Patient Medication Summary Completed 07/17/2014 Appointment: Galina Smith WPtel: [address] [place], [place] [phone] 01/29 01/30 NO SHOW FOLLOW UP 01/30/2014 Visit Plan: Check CMP, HbA1C, CBC, Lipid s Pt sees transplant doctor next month Pt is currently just using insulin prn and monitering BS 10/31/2013 Appointment: Galina Smith WPtel: [address] [place], [place] [phone] US FOLLOW UP 10/31/2013 Patient Education: Patient Medication Summary Completed 10/31/2013 Visit Plan: Continue current meds and ac uchecks 08/01/2013 Appointment: Galina Smith WPtel: [address] [place], [place] [phone] 07/31 FOLLOW UP 08/01/2013 Patient Education: Patient Medication Summary Completed 08/01/2013 Appointment: Alejandra Billy WPtel: [address] [place] [address] ACUTE ILLNESS 07/30/2013 Patient Education: Patient Medication Summary Completed 07/30/2013 Visit Plan: Restart Diovan--pt says need s PA Continue fluoxetine at 20mg daily 05/30/2013 Appointment: Galina Smith WPtel: [address] [place] [address] FOLLOW UP 05/30/2013 Patient Education: Patient Medication Summary Completed 05/30/2013 Appointment: Galina Smith WPtel: [address] [place] [address] has appt following day FOLLOW UP 3 Visit Plan: Restart Diovan and Amlodopin e as has been out--new rx sent out Trial of Fluoxetine 20mg q AM Stress Reducers 04/29/2013 Appointment: Galina Smith WPtel: [address] [place] [address] 04/26 MOM made appt. confirmed monday ACUTE ILL NESS 04/29/2013 Patient Education: Patient Medication Summary Completed 04/29/2013 Visit Plan: Continue current meds and ac cuchecks Pt going for fasting lab next month 02/27/2013 Appointment: Galina Smith WPtel: [address] [place], [place] [phone] FOLLOW UP 02/27/2013 Patient Education: Patient Medication Summary Completed 02/27/2013 Appointment: Viky Acosta WPtel: [address] [place] [address] ACUTE ILLNESS 01/01/2013 Patient Education: Patient Medication Summary Completed 01/01/2013 Visit Plan: Continue current meds Check fasting lab next week 11/27/2012 Appointment: Galina Smith WPtel: [address] [place], [place] [id number] FOLLOW UP 11/27/2012 Patient Education: Patient Medication Summary Completed 11/27/2012 Visit Plan: Lab discussed Continue curre nt meds and accuchecks Pt sees transplant doctor in in October Check fasting lab and fwup in 3mos 08/28/2012 Appointment: Galina Smith WPtel: [address] [place], [place] [phone] 08/27 FOLLOW UP 08/28/2012 Patient Education: Patient Medication Summary Completed 08/28/2012 Appointment: Galina Smith WPtel: [address] [place], [place] [phone] LAB 08/20/2012 Patient Education: Patient Medication Summary Completed 08/20/2012 Visit Plan: Continue levemir at current dose with accuchecks Use apidra with sliding scale Check Chem 7 and HbA1C in 2mos 07/03/2012 Appointment: Galina Smith WPtel: [address] [place], [place] [phone] 07/02 FOLLOW UP 07/03/2012 Patient Education: Patient Medication Summary Completed 07/03/2012 Visit Plan: Decrease Levemir to 70u q PM Use Apidra sliding scale as ordered with meals Explained to pt that BS is not too low, but due to the fact that his body is used to BS of 500-700, low 100s feels low to him Restart Diovan 320mg daily 06/21/2012 Appointment: Galnia Smith WPtel: [address] [place], [place] [phone] ACUTE ILLNESS 06/21/2012 Patient Education: Patient Medication Summary Completed 06/21/2012 Visit Plan: Increase Levemir to 75 u sc q PM Continue sliding scale insulin with accuchecks q AC and HS Call in 1wk with BS readings 05/30/2012 Appointment: Galina Smith WPtel: [address] [place], [place] [phone] Hospital Follow Up 05/30/2012 Patient Education: Patient Medication Summary Completed 05/30/2012 Appointment: Galina Smith WPtel: [address] [place], [place] [phone] 05/21 - cancelled appointment for 05/22 because PT was worke d in on 05/21 FOLLOW UP 05/22/2012 Appointment: Galina Smith WPtel: [address] [place], [place] [phone] WORK IN 05/21/2012 Appointment: Galina Smith WPtel: [address] [place], [place] [phone] US LAB 05/21/2012 Patient Education: Patient Medication Summary Completed 05/21/2012 Visit Plan: Continue current meds Obtain most recent lab done at [facility] 01/24/2012 Appointment: Galina Smith WPtel: [address] [place], [place] [phone] voicemail FOLLOW UP 01/24/2012 Patient Education: Patient Medication Summary Completed 01/24/2012 Visit Plan: Decrease Norvasc to 2.5mg da anne marie Check CBC, CMP, TSH, Free T4 09/21/2011 Appointment: Galina Smith WPtel: [address] [place], [place] [phone] ACUTE ILLNESS 09/21/2011 Patient Education: Patient Medication Summary Completed 09/21/2011 Visit Plan: Continue Diovan at current d ose Add amlodopine Check Lipids/LFTs with next lab 09/12/2011 Appointment: Galnia Smith WPtel: [address] [place], [place] [phone] [place] FOLLOW UP 09/12/2011 Patient Education: Patient Medication Summary Completed 09/12/2011 Visit Plan: Increase Diovan to 320mg po daily Check TSH and Free T4 with kidney lab next week 06/14/2011 Appointment: Galina Smith WPtel: [address] [place], [place] [phone] [place] FOLLOW UP 06/14/2011 Patient Education: Patient Medication Summary Completed 06/14/2011 Visit Plan: Z-pack then new toothebrush Start Diovan 03/03/2011 Appointment: Galina Smith WPtel: [address] [place] [address] ACUTE ILLNESS 03/03/2011 Patient Education: Patient Medication Summary Completed 03/03/2011 Appointment: Galina Smith WPtel: [address] [place] [address] FOLLOW UP 01/27/2011 Patient Education: Patient Medication Summary Completed 01/27/2011 Visit Plan: Continue current meds and pr oceed with lab per kidney transplant doctor Start Synthroid at 50mcg po daily 12/02/2010 Appointment: Galina Smith WPtel: [address] [place] [address] FOLLOW UP 12/02/2010 Patient Education: Patient Medication Summary Completed 12/02/2010 Appointment: Galina Smith WPtel: [address] [place] [address] Suture Removal 10/20/2009 Patient Education: Patient Medication Summary Completed 10/20/2009 Referral: Rudolph Núñez WPtel: [address] [facility] [address] [place], [place] [id number] Referral Initiated Instructions Comment . Patient admits [...] . Labs completed this am [facility] do not have results yet. Start [...] meds Obtain most recent lab done at [facility] . Decrease Norvasc to 2.5mg daily Check [...]
--- OUTSIDE RECORDS SUMMARY | 2019-08-21 00:07 | XMS REPORT | CCD ---
Author Author Cuauhtemoc Smith D.O. Organization [facility] Address [address] [place] [address] Phone Care Team Providers Care Postal Service Clerk Name Role Phone Galina Smith D.O., PP Unavailable CCM Unavailable Summary Purpose Interface Exchange Insurance Providers Payer name Policy type / Coverage type Covered constitution party ID Effective Begin Date Effective End Date Blue Cross Blue Shield Blue Cross/Blue Shield [id number] 2017 Unknown Family History Family History data not found Social History Social History Element Codes Description Effective Dates Tobacco history SNOMED CT: [id number] Currently uses smokeless to bacco 06/14/2011 Allergies, [...] ICD-9: V58.44 ICD-10: Z48.298 08/24/2018 Active Other usp (current) drug therapy ICD-9: V58.69 ICD-10: Z79.899 [...] Start Date Stop Date Status Fill Instructions Levemir FlexTouch U-100 Insulin 100 unit/mL (3 mL) sub cutaneous pen RxNorm: 013619 INJECT 90 UNITS SUBCUTANEOUSLY TWICE DAILY 06/25/2019 07/28/2019 Active Prograf 0.5 mg capsule RxNorm: 711231 4 Capsule(s) Oral two skinny es a day 05/20/2019 No Stop Date Active pantoprazole 40 mg tablet,delayed release RxNorm: 992451 1 Tablet(s) Oral QD for stomach 05/20/2019 09/17/2019 Active CellCept 500 mg tablet RxNorm: 176497 2 Tablet(s) Oral two time s a day 05/20/2019 No Stop Date Active cephalexin 500 mg capsule RxNorm: 915452 1 Capsule(s) Oral thre e times a day 05/20/2019 05/19/2019 Inactive cephalexin 500 mg capsule RxNorm: 448126 1 Capsule(s) Oral thre e times a day 05/20/2019 05/26/2019 Inactive Levemir FlexTouch U-100 Insulin 100 unit/mL (3 mL) sub cutaneous pen RxNorm: 539259 INJECT 90 UNITS SUBCUTANEOUSLY TWICE DAILY 05/11/201906/24 Inactive Levemir FlexTouch U-100 Insulin 100 unit/mL (3 mL) sub cutaneous pen RxNorm: 986838 100 Unit(s) Subcutaneous two times a day 03/04/2019 06/02/2019 Inactive Levemir FlexTouch U-100 Insulin 100 unit/mL (3 mL) sub cutaneous pen RxNorm: 297984 90 Unit(s) SQ BID 100 Unit(s) Subcutaneous two times a day 0 03/04/2019 03/04/2019 Inactive amlodipine 5 mg tablet RxNorm: 846167 1 Tablet(s) PO QD for BP 02/1008/24/2019 Active atorvastatin 80 mg tablet RxNorm: 503093 1 Tablet(s) PO QD 02/27/2005/26/2019 Inactive Novolog Flexpen U-100 Insulin aspart 100 unit/mL (3 mL ) subcutaneous RxNorm: 3377939 INJECT SUBCUTANEOUSLY NEEDED PER SLIDING SCALE 02/22/2019 No Stop Date Active Levemir FlexTouch U-100 Insulin 100 unit/mL (3 mL) sub cutaneous pen RxNorm: 851896 90 Unit(s) SQ BID 01/08/2019 03/03/2019 Inactive Levemir FlexTouch U-100 Insulin 100 unit/mL (3 mL) sub cutaneous pen RxNorm: 675860 90 Unit(s) SQ BID 12/04/2018 12/03/2018 Inactive Levemir FlexTouch U-100 Insulin 100 unit/mL (3 mL) sub cutaneous pen RxNorm: 918756 90 Unit(s) SQ BID 12/04/2018 01/07/2019 Inactive Levemir FlexTouch U-100 Insulin 100 unit/mL (3 mL) sub cutaneous pen RxNorm: 082265 70 Unit(s) SQ BID 10/26/2018 12/04/2018 Inactive Levemir FlexTouch U-100 Insulin 100 unit/mL (3 mL) sub cutaneous pen RxNorm: 362394 GIVE 90 UNITS SUBCUTANEOUSLY TWICE DAILY 10/08/2018 10/26/2018 Inactive Levemir FlexTouch U-100 Insulin 100 unit/mL (3 mL) sub cutaneous pen RxNorm: 830680 90 Unit(s) SQ BID 07/30/2018 10/07/2018 Inactive Levemir FlexTouch U-100 Insulin 100 unit/mL (3 mL) sub cutaneous pen RxNorm: 368113 90 Unit(s) SQ BID 07/06/2018 07/29/2018 Inactive Pen Needle 31 gauge x 5/16" RxNorm: USE DIRECTED 03/21/2018 No Stop Date Active Levemir FlexTouch U-100 Insulin 100 unit/mL (3 mL) sub cutaneous pen RxNorm: 003082 80 Unit(s) SQ BID 02/15/2018 07/06/2018 Inactive Levemir FlexTouch U-100 Insulin 100 unit/mL (3 mL) sub cutaneous pen RxNorm: 469893 INJECT 105 UNITS SUBCUTANEOUSLY IN THE EVENING 01/24/2018 0 02/15/2018 Inactive Levemir FlexTouch U-100 Insulin 100 unit/mL (3 mL) sub cutaneous pen RxNorm: 228477 INJECT 105 UNITS SUBCUTANEOUSLY IN THE EVENING 12/26/2017 0 01/23/2018 Inactive Novolog Flexpen U-100 Insulin aspart 100 unit/mL (3 mL ) subcutaneous RxNorm: 8357663 INJECT SUBCUTANEOUSLY NEEDED PER SLIDING SCALE 12/25/2017 02/21/2019 Inactive Levemir FlexTouch U-100 Insulin 100 unit/mL (3 mL) sub cutaneous pen RxNorm: 049243 70 Unit(s) SQ BID 11/03/2017 11/03/2017 Inactive Levemir FlexTouch U-100 Insulin 100 unit/mL (3 mL) sub cutaneous pen RxNorm: 721625 105 Unit(s) SQ QPM 11/02/2017 11/02/2017 Inactive Levemir FlexTouch U-100 Insulin 100 unit/mL (3 mL) sub cutaneous pen RxNorm: 007409 105 Unit(s) SQ QPM Needs updated labs 11/01/2017 11/01/[address] [place] Levemir FlexTouch U-100 Insulin 100 unit/mL (3 mL) sub cutaneous pen RxNorm: 805932 Unit(s) 105 Unit(s) SQ QPM 09/18/2017 09/18/2017 Inactive Levemir FlexTouch U-100 Insulin 100 unit/mL (3 mL) sub cutaneous pen RxNorm: 641840 105 Unit(s) SQ QPM 08/07/2017 09/18/2017 Inactive cephalexin 500 mg capsule RxNorm: 636046 1 Capsule(s) PO BID 201708/02/2017 Inactive Levemir FlexTouch U-100 Insulin 100 unit/mL (3 mL) sub cutaneous pen RxNorm: 848427 105 Unit(s) SQ QPM 06/07/2017 06/07/2017 Inactive Levemir FlexTouch 100 unit/mL (3 mL) subcutaneous insulin pe n RxNorm: 088698 105 Unit(s) SQ QPM 05/11/2017 06/07/2017 Inactive Lipitor 40 mg tablet RxNorm: 299560 1 Tablet(s) PO QD 04/05/201703/13 Inactive nystatin 100,000 unit/gram topical ointment RxNorm: 383592 1 Gr am(s) TOP BID 04/05/2017 05/02/2017 Inactive Lipitor 40 mg tablet RxNorm: 079490 1.5 Tablet(s) PO QD 04/05/2017 Inactive Diovan 320 mg tablet RxNorm: 842963 1 Tablet(s) PO QD 04/05/201702/10 Inactive Levemir FlexTouch 100 unit/mL (3 mL) subcutaneous insulin pe n RxNorm: 895194 105 Unit(s) SQ QPM 04/05/2017 04/05/2017 Inactive Levemir FlexTouch 100 unit/mL (3 mL) subcutaneous insulin pe n RxNorm: 273436 90 Unit(s) SQ QPM LAST REFILL UNTIL LABS AND APPOINTMENT!!!! 04/05/2017 Inactive Novolog Flexpen 100 unit/mL subcutaneous RxNorm: 1855923 Unit(s) INJECT SUBCUTANEOUSLY NEEDED PER SLIDING SCALE---NEEDS UPDATED LABS 03/07/2017 12/03/2018 Inactive Levemir FlexTouch 100 unit/mL (3 mL) subcutaneous insulin pe n RxNorm: 764825 90 Unit(s) SQ QPM LAST REFILL UNTIL LABS AND APPOINTMENT!!!! 02/17/2017 Inactive Levemir FlexTouch 100 unit/mL (3 mL) subcutaneous insulin pe n RxNorm: 410155 90 Unit(s) SQ QPM NEEDS FASTING LABS AND APPOINTMENT BEFORE FURTHER REFILLS 12/22/2016 02/17/2017 Inactive Novolog Flexpen U-100 Insulin aspart 100 unit/mL subcutaneou s RxNorm: 0323770 Unit(s) INJECT SUBCUTANEOUSLY NEEDED PER SLIDING SCALE---NEEDS UPDATED LABS 11/28/2016 03/07/2017 Inactive Levemir FlexTouch 100 unit/mL (3 mL) subcutaneous insulin pe n RxNorm: 821777 90 Unit(s) VAG QPM 11/08/2016 12/22/2016 Inactive Levemir FlexTouch 100 unit/mL (3 mL) subcutaneous insulin pe n RxNorm: 979130 90 Unit(s) VAG QPM 11/08/2016 12/21/2016 Inactive Levemir FlexTouch 100 unit/mL (3 mL) subcutaneous insulin pe n RxNorm: 662815 80 Unit(s) VAG QPM 09/05/2016 11/08/2016 Inactive Levemir FlexTouch 100 unit/mL (3 mL) subcutaneous insulin pe n RxNorm: 772543 85 Unit(s) SQ QD 07/22/2016 09/05/2016 Inactive Levemir FlexTouch 100 unit/mL (3 mL) subcutaneous insulin pe n RxNorm: 696614 85 Unit(s) SQ QD 07/04/2016 07/21/2016 Inactive Levemir FlexTouch 100 unit/mL (3 mL) subcutaneous insulin pe n RxNorm: 136095 85 Unit(s) SQ QD 06/14/2016 06/19/2016 Inactive Levemir FlexTouch 100 unit/mL (3 mL) subcutaneous insulin pe n RxNorm: 831176 85 Unit(s) SQ QD 05/03/2016 05/22/2016 Inactive Levemir FlexTouch 100 unit/mL (3 mL) subcutaneous insulin pe n RxNorm: 814079 85 Unit(s) SQ QD 05/03/2016 05/02/2016 Inactive Levemir FlexTouch 100 unit/mL (3 mL) subcutaneous insulin pe n RxNorm: 616647 85 Unit(s) SQ QD 03/14/2016 04/22/2016 Inactive cefuroxime axetil 250 mg tablet RxNorm: 948958 1 Tablet(s) PO BID 0 02/16/2016 02/25/2016 Inactive Levemir FlexTouch 100 unit/mL (3 mL) subcutaneous insulin pe n RxNorm: 056009 85 Unit(s) SQ QD 02/03/2016 03/13/2016 Inactive Levemir FlexTouch 100 unit/mL (3 mL) subcutaneous insulin pe n RxNorm: 078285 85 Unit(s) SQ QD 12/07/2015 02/02/2016 Inactive Pen Needle 31 gauge x 5/16" RxNorm: USE DIRECTED 11/19/201510/2015 Inactive Levemir FlexTouch 100 unit/mL (3 mL) subcutaneous insulin pe n RxNorm: 632001 INJECT 75 UNITS SUBCUTANEOUSLY ONCE DAILY; NEED LABS AND APPT 10/06/2015 12/04/2015 Inactive Novolog Flexpen 100 unit/mL subcutaneous RxNorm: 1199888 INJECT SUBCUTANEOUSLY NEEDED PER SLIDING SCALE 09/15/2015 11/28/2016 Inactive Levemir FlexTouch 100 unit/mL (3 mL) subcutaneous insulin pe n RxNorm: 883122 75 Unit(s) SQ QD Needs lab and appointment 07/13/2015 10/05/2015 Inactive Lyrica 75 mg capsule RxNorm: 575999 1 Capsule(s) PO BID 06/24/2015 Inactive Levemir FlexTouch 100 unit/mL (3 mL) subcutaneous insulin pe n RxNorm: 690391 75 Unit(s) SQ QD Needs lab and appointment 06/23/2015 07/12/2015 Inactive Novolog Flexpen 100 unit/mL subcutaneous RxNorm: 4328372 Unit(s) SQ as needed Sliding scale 06/15/2015 09/14/2015 Inactive Flonase Allergy Relief 50 mcg/actuation nasal spray,suspensi on RxNorm: 2 [place] NASAL QHS 06/11/2015 12/02/2015 Inactive prednisone 20 mg tablet RxNorm: 360224 1 Tablet(s) PO T ID for 3 days then 1 po BID for 3 days then one daily for 3 days 06/11/2015 12/02/2015 Inactiv e cefdinir 300 mg capsule RxNorm: 667410 2 Capsule(s) PO QD 06/11/2015 06/24/2015 Inactive Levemir FlexTouch 100 unit/mL (3 mL) subcutaneous insulin pe n RxNorm: 122601 75 Unit(s) SQ QD Needs lab and appointment 05/29/2015 06/22/2015 Inactive Novolog 100 unit/mL subcutaneous solution RxNorm: 613165 Unit(s) SQ Inject as directed using sliding scale B 05/29/2015 12/03/2018 Inactive Levemir Flexpen 100 unit/mL (3 mL) solution subcutaneo us insulin pen RxNorm: 669221 INJECT 75 UNITS SUBCUTANEOUSLY EVERY DAY 05/11/2015 05/29/2015 Inactive Levemir FlexTouch 100 unit/mL (3 mL) subcutaneous insulin pe n RxNorm: 121146 75 Unit(s) SQ QHS 03/30/2015 12/03/2018 Inactive Levemir FlexTouch 100 unit/mL (3 mL) subcutaneous insulin pe n RxNorm: 941673 75 Unit(s) SQ QHS 03/09/2015 03/29/2015 Inactive Contour Test Strips RxNorm: Miscellaneous 01/27/2015 No Stop Date Ac tive Novolog 100 unit/mL subcutaneous solution RxNorm: 882545 Unit(s) SQ Inject as directed using sliding scale B 01/27/2015 05/29/2015 Inactive Levemir Flexpen 100 unit/mL (3 mL) solution subcutaneo us insulin pen RxNorm: 633993 INJECT 75 UNITS SUBCUTANEOUSLY EVERY DAY 11/05/2014 03/09/2015 Inactive Levemir Flexpen 100 unit/mL (3 mL) solution subcutaneo us insulin pen RxNorm: 502759 INJECT 75 UNITS SUBCUTANEOUSLY EVERY DAY 08/13/2014 10/31/2014 Inactive Novolog 100 unit/mL subcutaneous solution RxNorm: 340728 Unit(s) SQ Inject as directed using sliding scale B 07/15/2014 01/26/2015 Inactive Apidra SoloStar 100 unit/mL subcutaneous insulin pen RxNorm: 647064 Unit(s) SQ INJECT DIRECTED USING SLIDING SCALE B 07/11/2014 07/14/2014 Inactiv e Diovan 320 mg tablet RxNorm: 411859 1 Tablet(s) PO QD 06/10/201405/13 Inactive Apidra SoloStar 100 unit/mL subcutaneous insulin pen RxNorm: 308385 Unit(s) SQ INJECT DIRECTED USING SLIDING SCALE B 04/18/2014 07/10/2014 Inactiv e Levemir Flexpen 100 unit/mL (3 mL) solution subcutaneo us insulin pen RxNorm: 846999 Unit(s) SQ INJECT 75 UNITS SUBCUTANEOUSLY EVERY DAY 02/29/20 14 02/27/2014 Inactive [SAVINGS FOR UNINSURED PATIE NTS -- BIN:[id number], PCN: [id number], Group: [id number], ID# [id number], Process claim through [employer], for questions: . THIS IS NOT INSURANCE.] Apidra SoloStar 100 unit/mL subcutaneous insulin pen RxNorm: 217841 Unit(s) SQ INJECT DIRECTED USING SLIDING SCALE B 09/05/2013 04/17/2014 Inactiv e Pen Needle 31 gauge x 5/16" RxNorm: Miscellaneou s USE DIRECTED WITH LEVEMIR AND APIDRA 08/23/2013 11/18/2015 Inactive Prograf 1 mg capsule RxNorm: 365734 2 Capsule(s) PO BID Generic OK to fill 08/21/2013 05/19/2019 Inactive Diovan 320 mg tablet RxNorm: 091687 1 Tablet(s) PO QD 05/30/201305/12 Inactive fluoxetine 20 mg tablet RxNorm: 580733 1 Tablet(s) PO QAM 05/30/2013 07/31/2013 Inactive fluoxetine 20 mg tablet RxNorm: 183321 1 Tablet(s) PO QAM 04/29/2013 05/29/2013 Inactive amlodipine 5 mg tablet RxNorm: 776187 1 Tablet(s) PO QD 04/29/2013 Inactive ketoconazole 2 % topical cream RxNorm: 649056 Application TOP B ID for 2-4wks 04/29/2013 05/12/2013 Inactive Diovan 320 mg tablet RxNorm: 694923 1 Tablet(s) PO QD 04/29/201305/14 Inactive Apidra SoloStar 100 unit/mL subcutaneous insulin pen RxNorm: 317194 Unit(s) SQ Sliding Scale B 02/19/2013 09/05/2013 Inactive Levemir Flexpen 100 unit/mL (3 mL) solution subcutaneo us insulin pen RxNorm: 116926 Insulin Pen SQ INJECT 75 UNITS SUBCUTANEOUSLY EVERY DAY 01/1002/28/2014 Inactive Septra DS 800 mg-160 mg tablet RxNorm: 932081 1 Tablet(s) PO BI D antibiotic 01/01/2013 01/07/2013 Inactive ketoconazole 2 % topical cream RxNorm: 098340 1 Application TOP BID 01/01/2013 01/14/2013 Inactive Levemir Flexpen 100 unit/mL (3 mL) Sub-Q Insulin Pen RxNorm: 046378 Unit(s) SQ INJECT 75 UNITS SUB-Q ONCE A DAY 12/07/2012 No Stop Date Active Levemir Flexpen 100 unit/mL (3 mL) Sub-Q Insulin Pen RxNorm: 351745 Unit(s) SQ INJECT 75 UNITS SUB-Q ONCE A DAY 10/22/2012 12/07/2012 Inactive Levemir Flexpen 100 unit/mL (3 mL) Sub-Q Insulin Pen RxNorm: 200116 75 Unit(s) SQ QHS 08/20/2012 10/22/2012 Inactive Diovan 320 mg tablet RxNorm: 837922 1 Tablet(s) PO QD 07/30/201204/12 Inactive Levemir Flexpen 100 unit/mL (3 mL) Sub-Q Insulin Pen RxNorm: 235022 Insulin Pen SQ INJECT 75 UNITS SUB-Q ONCE A DAY 07/30/2012 10/21/2012 Inactive Levemir Flexpen 100 unit/mL (3 mL) Sub-Q Insulin Pen RxNorm: 074945 75 Unit(s) SQ QHS 07/30/2012 08/19/2012 Inactive Levemir Flexpen 100 unit/mL (3 mL) Sub-Q Insulin Pen RxNorm: 917002 75 Unit(s) SQ QHS 07/30/2012 07/29/2012 Inactive Diovan 320 mg tablet RxNorm: 932173 1 Tablet(s) PO QD 06/21/201202/2013 Inactive Diovan 320 mg tablet RxNorm: 738679 1 Tablet(s) PO QD 06/21/201202/2013 Inactive Diovan 320 mg tablet RxNorm: 431386 1 Tablet(s) PO QD 06/21/201207/13 Inactive CellCept 250 mg capsule RxNorm: 021089 4 Capsule(s) PO BID 06/14/19 13 05/19/2019 Inactive Prograf 1 mg capsule RxNorm: 392461 2 Capsule(s) PO BID Generic OK to fill 06/14/2012 06/20/2012 Inactive Apidra SoloStar 100 unit/mL Sub-Q Insulin Pen RxNorm: 096439 Unit(s) SQ Sliding Scale B 06/13/2012 12/03/2018 Inactive Levemir Flexpen 100 unit/mL (3 mL) Sub-Q Insulin Pen RxNorm: 906431 75 Unit(s) SQ QD 06/13/2012 No Stop Date Active Apidra SoloStar 100 unit/mL Sub-Q Insulin Pen RxNorm: 663516 Unit(s) SQ Sliding Scale B 06/13/2012 No Stop Date Active One Touch Delica Lancets RxNorm: Miscellaneous 06/13/2012 04/04/2017 Inactive Lipitor 40 mg tablet RxNorm: 415376 1 Tablet(s) PO QD 05/30/201208/10 Inactive Diovan 320 mg tablet RxNorm: 347327 1 Tablet(s) PO QD 05/30/201202/2013 Inactive Tricor 145 mg tablet RxNorm: 220878 1 Tablet(s) PO QD 05/30/201208/10 Inactive Lipitor 20 mg Tab RxNorm: 128366 1 Tablet(s) PO QD 09/12/2011 012 Inactive Synthroid 50 mcg Tab RxNorm: 077099 1 Tablet(s) PO QD 09/12/201111/11 Inactive Diovan 320 mg tablet RxNorm: 027289 1 Tablet(s) PO QD 09/12/201102/11 Inactive amlodipine 5 mg tablet RxNorm: 216021 1 Tablet(s) PO QD 09/12/2011 Inactive Diovan 320 mg Tab RxNorm: 648849 1 Tablet(s) PO QD 06/14/2011 012 Inactive Diovan 160 mg Tab RxNorm: 054354 1 Tablet(s) PO QD 03/03/2011 012 Inactive cefdinir 300 mg Cap RxNorm: 495194 2 Capsule(s) PO QD 01/27/201101/11 Inactive Synthroid 50 mcg Tab RxNorm: 853850 1 Tablet(s) PO QD 12/02/2010/2 06/2010 Inactive Multivitamin & Mineral Formula Tab RxNorm: 1 Tablet(s) PO QD No art Active Miralax 17 gram/dose oral powder RxNorm: 024117 PO BID in 6-8 o unces of water No Start Date Active Tylenol Extra Strength 500 mg tablet RxNorm: 621234 Tablet(s) P O as needed No Start Date Active Tricor Oral RxNorm: Oral No Start Date 05/29/2012 Inactive MagOx 400 mg tablet RxNorm: 313881 1 Tablet(s) PO QD No Start Date Inactive sodium bicarbonate Oral RxNorm: Oral No Start Date 06/19/2016 I nactive Fish Oil 1,000 mg capsule RxNorm: 1 Capsule(s) PO QD No Start Date 04/04/2017 Inactive Novofine Misc RxNorm: Miscellaneous No Start Date 06/12/2012 Inactiv e Percocet 5 mg-325 mg tablet RxNorm: 7141644 Tablet(s) PO as need ed Dr Parson No Start Date 04/04/2017 Inactive Contour Test Strips RxNorm: miscellaneous No Start Date 01/26/2015 I nactive Prograf 1 mg capsule RxNorm: 223566 2 Capsule(s) PO BID No Start Da te 06/13/2012 Inactive Zantac 150 mg Tab RxNorm: 802211 Tablet(s) PO PRN No Start Date 12/01 Inactive Levemir FlexTouch 100 unit/mL (3 mL) subcutaneous insulin pe n RxNorm: 786408 75 Unit(s) SQ QHS No Start Date 03/08/2015 Inactive CellCept 250 mg capsule RxNorm: 380503 4 Capsule(s) PO BID No Start Date 06/13/2012 Inactive Novolog 100 unit/mL subcutaneous solution RxNorm: 296661 Unit(s) SQ Inject as directed using sliding scale B No Start Date 07/14/2014 Inactive Novolog Flexpen 100 unit/mL subcutaneous RxNorm: 5145172 Unit(s) SQ as needed Sliding scale No Start Date 06/14/2015 Inactive Apidra SoloStar 100 unit/mL Sub-Q Insulin Pen RxNorm: 369982 Unit(s) SQ Sliding Scale B No Start Date 06/12/2012 Inactive Levemir FlexTouch U-100 Insulin 100 unit/mL (3 mL) sub cutaneous pen RxNorm: 819390 70 Unit(s) SQ BID No Start Date 02/06/2018 Inactive Pen Needle 31 X 5/16" RxNorm: Miscellaneous No Start Date 08/23/2013 Inactive Synthroid 50 mcg Tab RxNorm: 927664 1 Tablet(s) PO QD No Start Date 0 09/11/2011 Inactive Levemir Flexpen 100 unit/mL (3 mL) Sub-Q Insulin Pen RxNorm: 226845 70 Unit(s) SQ QHS No Start Date 07/29/2012 Inactive Levemir FlexTouch U-100 Insulin 100 unit/mL (3 mL) sub cutaneous pen RxNorm: 581594 80 Unit(s) SQ BID No Start Date 02/14/2018 Inactive Levemir FlexTouch 100 unit/mL (3 mL) subcutaneous insulin pe n RxNorm: 941709 80 Unit(s) SQ QPM No Start Date 09/04/2016 Inactive Lipitor 40 mg tablet RxNorm: 323604 1 Tablet(s) PO QD No Start Date 1 Inactive Ultram 50 mg tablet RxNorm: 794793 2 Tablet(s) PO TID as needed for pain No Start Date 06/10/2015 Inactive Prograf 1 mg Cap RxNorm: 924880 2 Capsule(s) PO BID No Start Date 02/2012 Inactive insulin needles (disposable) 32 x 5/16" RxNorm: Miscellaneous for use with flex pen No Start Date 04/04/2017 Inactive Levemir FlexTouch U-100 Insulin 100 unit/mL (3 mL) sub cutaneous pen RxNorm: 316087 90 Unit(s) SQ BID No Start Date 07/05/2018 Inactive Levemir Flexpen 100 unit/mL (3 mL) Sub-Q Insulin Pen RxNorm: 495367 65 Unit(s) SQ QD No Start Date 06/12/2012 Inactive pantoprazole 40 mg tablet,delayed release RxNorm: 172682 1 Tabl et(s) PO QD No Start Date 05/19/2019 Inactive Zithromax Z-Mateus 250 mg Tab RxNorm: 661128 Tablet(s) PO No Start Date 06/13/2011 Inactive as directed Lipitor 20 mg Tab RxNorm: 734724 1 Tablet(s) PO QD No Start Date [...] Date S ervice Location GLYCOSYLATED HEMOGLOBIN TEST 58207 Hgb A1c 85161-9 13.9 % 0 02/27/2019 Unknown MEAN GLUC 5851631 Calc Mean Gluc 352 mg/dL 02/27/2019 Unkn own MICROALBUMIN URINE RANDOM 01646 U Microalbumin 2259.0 mg /L 02/26/2019 Unknown MICROALBUMIN URINE RANDOM 11476 U Creatinine 143 mg/dL 0 02/26/2019 Unknown MICROALBUMIN URINE RANDOM 07032 ALB/CR Ratio 1579.7 mg/g CR 02/26/2019 Unknown MAGNESIUM 66463 MAGNESIUM 1.4 mEq/L 02/19/2019 Unknown GFR CALC 0643768 GFR Non Afr Amr 37 mL/min 02/19/2019 Unk nown GFR CALC 8801984 GFR Afr Amr 45 mL/min 02/19/2019 Unknown [facility] 32736 Cholesterol 250 mg/dL 02/19/2019 Unkno wn LIPID GROUP 86060 Triglyceride 465 mg/dL 02/19/2019 Unkn own L[facility] GROUP 89647 HDL CHOLESTEROL 30 mg/dL 02/19/2019 U nknown L[facility] GROUP 22107 Chol/HDL Ratio 8.33 ratio 02/19/2019 U nknown LIP[facility] GROUP 17346 NON-HDL Chol 220 mg/dL 02/19/2019 Unkn own L[facility] GROUP 88398 LDL Cholesterol N/A Trig >400 019 Unknown LIP[facility] GROUP 61801 Fasting Unknown 02/19/2019 Unknown COMPREHENSIVE METABOLIC 19187 AST 20 U/L 2018 Unknown COMPREHENSIVE METABOLIC 90139 ALT 30 U/L 2018 Unknown COMPREHENSIVE METABOLIC 42658 BUN 27 mg/dL 2018 Unknown COMPREHENSIVE METABOLIC 79905 ALBUMIN 3.7 g/dL 2018 Unknown COMPREHENSIVE METABOLIC 86775 CHLORIDE 105 mmol/L 02/19 Unknown COMPREHENSIVE METABOLIC 05831 Bili Total 0.5 mg/dL 02/19 Unknown COMPREHENSIVE METABOLIC 28938 ALK PHOS 79 U/L 2018 Unknown COMPREHENSIVE METABOLIC 26812 SODIUM 137 mmol/L 02/19 Unknown COMPREHENSIVE METABOLIC 87349 CREATININE 2.10 mg/dL 02/10 Unknown COMPREHENSIVE METABOLIC 14219 CALCIUM 9.5 mg/dL 2018 Unknown COMPREHENSIVE METABOLIC 84853 POTASSIUM 4.2 mmol/L 02/19 Unknown COMPREHENSIVE METABOLIC 47095 Total Protein 6.5 g/dL Unknown COMPREHENSIVE METABOLIC 94015 Glucose 202 mg/dL 2018 Unknown COMPREHENSIVE METABOLIC 16069 Bicarbonate 22 mmol/L 02/10 Unknown COMPREHENSIVE METABOLIC 55214 AGAP 10 mmol/L 2018 Unknown LIPID GROUP 30539 Cholesterol 320 mg/dL 08/27/2018 Unkno wn LIPID GROUP 75033 Triglyceride 444 mg/dL 08/27/2018 Unkn own LIPID GROUP 56541 HDL CHOLESTEROL 39 mg/dL 08/27/2018 U nknown LIPID GROUP 27688 Chol/HDL Ratio 8.21 ratio 08/27/2018 U nknown LIPID GROUP 55340 NON-HDL Chol 281 mg/dL 08/27/2018 Unkn own LIPID GROUP 38821 LDL Cholesterol N/A Trig >400 019 Unknown LIPID GROUP 02901 Fasting Unknown 08/27/2018 Unknown PHOSPHORUS 0537519 PHOSPHORUS 2.1 mg/dL 08/24/2018 Unknown PROTEIN/CREAT URINE WITH RATIO 99983|01076 U Protein 515 mg/ dL 08/24/2018 Unknown PROTEIN/CREAT URINE WITH RATIO 40353|72751 U Creatinine 116 mg/dL 08/24/2018 Unknown PROTEIN/CREAT URINE WITH RATIO 45439|39183 Prot:Creat Rat 4440 mg/g 08/24/2018 Unknown MAGNESIUM 77177 MAGNESIUM 1.4 mEq/L 08/24/2018 Unknown GFR CALC 1062234 GFR Non Afr Amr 44 mL/min 08/24/2018 Unk nown GFR CALC 3593590 GFR Afr Amr 53 mL/min 08/24/2018 [place] [address] Glucose TNP:Unknown Can shaw Reason 08/24/2018 [place] [address] CREATININE TNP:Unknown Cancel Reason 08/24/2018 [place] [address] BUN TNP:Unknown Can shaw Reason 08/24/2018 [place] [address] SODIUM TNP:Unknown Can shaw Reason 08/24/2018 [place] [address] POTASSIUM TNP:Unknown Cancel Reason 08/24/2018 [place] [address] CHLORIDE TNP:Unknown Can shaw Reason 08/24/2018 [place] [address] Bicarbonate TNP:Unknow n Cancel Reason 08/24/2018 [place] [address] AGAP TNP:Unknown Can shaw Reason 08/24/2018 [place] [address] CALCIUM TNP:Unknown Can shaw Reason 08/24/2018 Unknown COMPREHENSIVE METABOLIC 30333 AST 21 U/L 2018 Unknown COMPREHENSIVE METABOLIC 19371 ALT 35 U/L 2018 Unknown COMPREHENSIVE METABOLIC 53583 BUN 25 mg/dL 2018 Unknown COMPREHENSIVE METABOLIC 73042 ALBUMIN 4.5 g/dL 2018 Unknown COMPREHENSIVE METABOLIC 18913 CHLORIDE 106 mmol/L 08/24 Unknown COMPREHENSIVE METABOLIC 83861 Bili Total 0.4 mg/dL 08/24 Unknown COMPREHENSIVE METABOLIC 96687 ALK PHOS 64 U/L 2018 Unknown COMPREHENSIVE METABOLIC 69177 SODIUM 141 mmol/L 08/24 Unknown COMPREHENSIVE METABOLIC 32135 CREATININE 1.81 mg/dL 08/10 Unknown COMPREHENSIVE METABOLIC 12220 CALCIUM 10.3 mg/dL 08/24 Unknown COMPREHENSIVE METABOLIC 64051 POTASSIUM 3.4 mmol/L 08/24 Unknown COMPREHENSIVE METABOLIC 13465 Total Protein 7.2 g/dL Unknown COMPREHENSIVE METABOLIC 30084 Glucose 101 mg/dL 2018 Unknown COMPREHENSIVE METABOLIC 52352 Bicarbonate 23 mmol/L 08/10 Unknown COMPREHENSIVE METABOLIC 50085 AGAP 12 mmol/L 2018 Unknown UA W/MICR 15720 UA Urine Appear Normal 08/24/2018 Unk nown UA W/MICR 12944 UA Protein 3+ 08/24/2018 Unknown UA W/MICR 24134 UA Hemoglobin Trace 08/24/2018 Unkno wn UA W/MICR 87704 UA Glucose 3+ 08/24/2018 Unknown UA W/MICR 66532 UA Ketones Negative 08/24/2018 Unknown UA W/MICR 15392 UA pH 6.0 08/24/2018 Unknown UA W/MICR 44132 U Spec [place] 1.025 08/24/2018 Unkn own UA W/MICR 91526 UA Bilirubin Negative 08/24/2018 Unknow n UA W/MICR 60117 UA Leuk Esteras Negative 08/24/2018 Unk nown UA W/MICR 91474 UA Nitrite NEG 08/24/2018 Unknown UA W/MICR 15036 UA WBC/hpf 1 08/24/2018 Unknown UA W/MICR 57138 UA RBC auto 12.9 /uL 08/24/2018 Unknown UA W/MICR 49181 UA RBC hpf 2 08/24/2018 Unknown UA W/MICR 22608 UA WBC auto 5.9 /uL 08/24/2018 Unknown UA W/MICR 09203 UA SQ EPI auto 5.2 /uL 08/24/2018 Unkn own UA W/MICR 87844 UA H Cast auto 0.10 /uL 08/24/2018 Unkn own PROGRAF [id number] Prograf 7.3 ng/mL 08/24/2018 Unknown MICROALBUMIN URINE RANDOM 77987 U Microalbumin 3485.2 mg /L 08/24/2018 Unknown MICROALBUMIN URINE RANDOM 26273 U Creatinine 116 mg/dL 0 08/24/2018 Unknown MICROALBUMIN URINE RANDOM 70826 ALB/CR Ratio 3004.5 mg/g CR 08/24/2018 Unknown GLYCOSYLATED HEMOGLOBIN TEST 89434 Hgb A1c 06418-5 13.3 % 0 06/29/2018 Unknown MEAN GLUC 0395455 Calc Mean Gluc 335 mg/dL 06/29/2018 Unkn own COMPREHENSIVE METABOLIC 83292 AST 17 U/L 2017 Unknown COMPREHENSIVE METABOLIC 03887 ALT 24 U/L 2017 Unknown COMPREHENSIVE METABOLIC 40948 BUN 24 mg/dL 2017 Unknown COMPREHENSIVE METABOLIC 92678 ALBUMIN 3.9 g/dL 2017 Unknown COMPREHENSIVE METABOLIC 77854 CHLORIDE 108 mmol/L 02/06 Unknown COMPREHENSIVE METABOLIC 97196 Bili Total 0.6 mg/dL 02/06 Unknown COMPREHENSIVE METABOLIC 85220 ALK PHOS 67 U/L 2017 Unknown COMPREHENSIVE METABOLIC 33623 SODIUM 140 mmol/L 02/06 Unknown COMPREHENSIVE METABOLIC 87692 CREATININE 1.75 mg/dL 01/11 Unknown COMPREHENSIVE METABOLIC 29763 CALCIUM 9.6 mg/dL 2017 Unknown COMPREHENSIVE METABOLIC 05641 POTASSIUM 3.8 mmol/L 02/06 Unknown COMPREHENSIVE METABOLIC 38856 Total Protein 7.1 g/dL Unknown COMPREHENSIVE METABOLIC 31472 Glucose 62 mg/dL 2017 Unknown COMPREHENSIVE METABOLIC 09861 Bicarbonate 23 mmol/L 01/11 Unknown COMPREHENSIVE METABOLIC 39622 AGAP 9 mmol/L 2017 Unknown GLYCOSYLATED HEMOGLOBIN TEST 81550 Hgb A1c 29568-2 13.0 % 0 02/06/2018 Unknown GFR CALC 6594040 GFR Non Afr Amr 46 mL/min 02/06/2018 Unk nown GFR CALC 7318692 GFR Afr Amr 55 mL/min 02/06/2018 Unknown MICROALBUMIN URINE RANDOM 92642 U Microalbumin 669.0 mg/ L 02/06/2018 Unknown MICROALBUMIN URINE RANDOM 06032 U Creatinine 92 mg/dL 0 02/06/2018 Unknown MICROALBUMIN URINE RANDOM 73425 ALB/CR Ratio 727.2 mg/gC R 02/06/2018 Unknown MEAN GLUC 3675384 Calc Mean Gluc 326 mg/dL 02/06/2018 Unkn own GLYCOSYLATED HEMOGLOBIN TEST 83452 Hgb A1c 02923-3 14.3 % 0 12/03/2015 Unknown THYROID STIMULATING HORMONE 01204 TSH 1.909 uIU/mL 12/03/2015 Unknown MAGNESIUM 47604 MAGNESIUM 1.5 mEq/L 12/03/2015 Unknown GFR CALC 4975587 GFR Non Afr Amr 39 mL/min 12/03/2015 Unk nown GFR CALC 5945605 GFR Afr Amr 48 mL/min 12/03/2015 Unknown MEAN GLUC 9325898 Mean Glucose 364 mg/dL 12/03/2015 Unknow n COMPREHENSIVE METABOLIC 30065 AST 34 U/L 2015 Unknown COMPREHENSIVE METABOLIC 98628 ALT 78 U/L 2015 Unknown COMPREHENSIVE METABOLIC 44277 BUN 29 mg/dL 2015 Unknown COMPREHENSIVE METABOLIC 46155 ALBUMIN 4.3 g/dL 2015 Unknown COMPREHENSIVE METABOLIC 59521 CHLORIDE 93 mmol/L 2015 Unknown COMPREHENSIVE METABOLIC 10104 Bili Total 0.7 mg/dL 12/02 Unknown COMPREHENSIVE METABOLIC 67050 ALK PHOS 83 U/L 2015 Unknown COMPREHENSIVE METABOLIC 43976 SODIUM 125 mmol/L 12/02 Unknown COMPREHENSIVE METABOLIC 19481 CREATININE 2.01 mg/dL 11/11 Unknown COMPREHENSIVE METABOLIC 35834 CALCIUM 9.8 mg/dL 2015 Unknown COMPREHENSIVE METABOLIC 10901 POTASSIUM 4.3 mmol/L 12/02 Unknown COMPREHENSIVE METABOLIC 36150 Total Protein 7.3 g/dL Unknown COMPREHENSIVE METABOLIC 61638 Glucose 542 mg/dL 2015 Unknown COMPREHENSIVE METABOLIC 83194 Bicarbonate 23 mmol/L 11/11 Unknown COMPREHENSIVE METABOLIC 69592 AGAP 9 mmol/L 2015 Unknown COMPREHENSIVE METABOLIC 90169 AST 31 U/L 2013 Unknown COMPREHENSIVE METABOLIC 30509 ALT 52 IU/L 2013 Unknown COMPREHENSIVE METABOLIC 57558 BUN 26 MG/DL 2013 Unknown COMPREHENSIVE METABOLIC 26121 ALBUMIN 4.9 GM/DL 2013 Unknown COMPREHENSIVE METABOLIC 06624 CHLORIDE 108 MMOL/L 07/30 Unknown COMPREHENSIVE METABOLIC 20054 BILI TOT 0.4 MG/DL 2013 Unknown COMPREHENSIVE METABOLIC 95145 ALK PHOS 68 U/L 2013 Unknown COMPREHENSIVE METABOLIC 18901 SODIUM 138 MMOL/L 07/30 Unknown COMPREHENSIVE METABOLIC 46933 CREATININE 2.02 MG/DL 07/13 Unknown COMPREHENSIVE METABOLIC 69291 CALCIUM 10.3 MG/DL 07/30 Unknown COMPREHENSIVE METABOLIC 14976 POTASSIUM 5.0 MMOL/L 07/30 Unknown COMPREHENSIVE METABOLIC 40279 PROT TOT 7.3 GM/DL 2013 Unknown COMPREHENSIVE METABOLIC 74284 Glucose 89 MG/DL 2013 Unknown COMPREHENSIVE METABOLIC 93535 BICARB 24 MMOL/L 2013 Unknown COMPREHENSIVE METABOLIC 42791 ANION GAP 6 MEQ/L 2013 Unknown GFR CALC 2175254 GFR AA 48.0L ML/MIN 07/30/2013 Unknow n GFR CALC 0655676 GFR NON-AA 40.0L ML/MIN 07/30/2013 Unkno wn COMPLETE BLOOD COUNT 7128054 WBC 7.9 10e9/L 07/30/19 14 Unknown COMPLETE BLOOD COUNT 2383879 RBC 4.94 10e12/L 2013 Unknown COMPLETE BLOOD COUNT 0500617 HGB 14.0 g/dL 4 Unknown COMPLETE BLOOD COUNT 4509999 HCT DET 41.5 % 4 Unknown COMPLETE BLOOD COUNT 0598108 MCV 84.0 fL 4 Unknown COMPLETE BLOOD COUNT 6875087 MCH 28.3 pg 4 Unknown COMPLETE BLOOD COUNT 6444237 MCHC 33.7 g/dL 4 Unknown COMPLETE BLOOD COUNT 7569350 PLT 176 10e9/L 07/30/19 14 Unknown COMPLETE BLOOD COUNT 8298840 MPV 11.8 fL 4 Unknown COMPLETE BLOOD COUNT [id number] CLAYTON % 75.4 % 4 Unknown COMPLETE BLOOD COUNT 8816929 LY % 13.7 % 4 Unknown COMPLETE BLOOD COUNT 2626508 MON % 8.9 % 4 Unknown COMPLETE BLOOD COUNT 4317712 EOS % 1.7 % 4 Unknown COMPLETE BLOOD COUNT 9735061 BASO % 0.3 % 4 Unknown COMPLETE BLOOD COUNT 8974643 RDW 13.4 % 4 Unknown COMPLETE BLOOD COUNT 8777275 ABS CLAYTON 5.96 10e9/L 014 Unknown COMPLETE BLOOD COUNT 2236018 ABS LYMPH 1.08 10e9/L 014 Unknown COMPLETE BLOOD COUNT 4285025 ABS MONO 0.70 10e9/L 014 Unknown COMPLETE BLOOD COUNT 1182769 ABS EOS 0.13 10e9/L 014 Unknown COMPLETE BLOOD COUNT 7921545 ABS BASO 0.02 10e9/L 014 Unknown COMPLETE BLOOD COUNT 2298801 RDW-SD 40.2 fL 4 Unknown C-REACTIVE PROTEIN (CRP) QUANT 58960 CRP 0.2 MG/DL 07/30/2013 Unknown CANCEL 8602017 CANCEL FOOTNOTE 05/23/2012 Unknown PEND CHEM PEND CHEM FOOTNOTE 05/22/2012 Unknown COMPREHENSIVE METABOLIC 03785 AST 61 U/L 2011 Unknown COMPREHENSIVE METABOLIC 90210 ALT 106 U/L 2011 Unknown COMPREHENSIVE METABOLIC 22872 BUN 33 MG/DL 2011 Unknown COMPREHENSIVE METABOLIC 50209 ALBUMIN 5.0 GM/DL 2011 Unknown COMPREHENSIVE METABOLIC 29650 CHLORIDE 89 MMOL/L 2011 Unknown COMPREHENSIVE METABOLIC 54912 BILI TOT 0.6 MG/DL 2011 Unknown COMPREHENSIVE METABOLIC 42422 ALK PHOS 129 U/L 2011 Unknown COMPREHENSIVE METABOLIC 00786 SODIUM 120 MMOL/L 05/21 Unknown COMPREHENSIVE METABOLIC 41825 CREATININE 2.23 MG/DL 05/12 Unknown COMPREHENSIVE METABOLIC 46805 CALCIUM 9.8 MG/DL 2011 Unknown COMPREHENSIVE METABOLIC 37055 POTASSIUM 5.3 MMOL/L 05/21 Unknown COMPREHENSIVE METABOLIC 68604 PROT TOT 7.8 GM/DL 2011 Unknown COMPREHENSIVE METABOLIC 88128 Glucose 789 MG/DL 2011 Unknown COMPREHENSIVE METABOLIC 56149 BICARB 20 MMOL/L 2011 Unknown COMPREHENSIVE METABOLIC 96074 ANION GAP 11 MMOL/L 2011 Unknown GFR CALC 9400626 GFR AA 43.0L ML/MIN 05/21/2012 Unknow n GFR CALC 6711970 GFR NON-AA 36.0L ML/MIN 05/21/2012 Unkno wn THYROID STIMULATING HORMONE 22315 TSH 1.499 uIU/ML 01/27/2011 Unknown FREE T4 88559 FREE T4 1.15 NG/DL 01/27/2011 Unknown Procedures Procedure Codes Date ROUTINE VENIPUNCTURE CPT-4: 02230 02/26/2019 A1C HPLC CPT-4: 67139 02/26/2019 MICROALBUMIN QUANTITATIVE CPT-4: 34073 02/26/2019 ROUTINE VENIPUNCTURE CPT-4: 50874 02/19/2019 METABOLIC PANEL TOTAL CA CPT-4: 50609 02/19/2019 MICROALBUMIN, QUANTITATIVE CPT-4: 02736 02/19/2019 LIPID PANEL CPT-4: 06346 02/19/2019 COMPREHEN METABOLIC PANEL CPT-4: 71535 02/19/2019 ASSAY OF MAGNESIUM CPT-4: 10639 02/19/2019 METABOLIC PANEL TOTAL CA CPT-4: 94032 08/24/2018 COMPREHEN METABOLIC PANEL CPT-4: 80309 08/24/2018 ASSAY OF MAGNESIUM CPT-4: 65391 08/24/2018 MICROALBUMIN QUANTITATIVE CPT-4: 66831 08/24/2018 PROTEIN/CREAT URINE WITH RATIO CPT-4: 39760|57130 9 PHOSPHORUS CPT-4: 6366539 08/24/2018 LIPID PANEL CPT-4: 35894 08/24/2018 ROUTINE VENIPUNCTURE CPT-4: 43395 06/29/2018 A1C HPLC CPT-4: 15518 06/29/2018 URINALYSIS NONAUTO W/O SCOPE CPT-4: 64380 02/06/2018 URINE CULTURE/ COLONY COUNT CPT-4: 22507 02/06/2018 MICROALBUMIN QUANTITATIVE CPT-4: 94255 02/06/2018 ROUTINE VENIPUNCTURE CPT-4: 93153 02/06/2018 COMPREHEN METABOLIC PANEL CPT-4: 60535 02/06/2018 A1C HPLC CPT-4: 81458 02/06/2018 ROUTINE VENIPUNCTURE CPT-4: 19950 11/02/2017 COMPREHEN METABOLIC PANEL CPT-4: 10097 11/02/2017 A1C HPLC CPT-4: 63139 11/02/2017 TDAP VACCINE 7 YRS/> IM CPT-4: 91466 07/27/2017 IMMUNIZATION ADMIN CPT-4: 76038 07/27/2017 URINALYSIS NONAUTO W/O SCOPE CPT-4: 33352 02/16/2016 URINE CULTURE/ COLONY COUNT CPT-4: 78334 02/16/2016 PRESCRIP TRANSMIT VIA ERX SY CPT-4: G8553 02/16/2016 ROUTINE VENIPUNCTURE CPT-4: 63326 12/03/2015 ASSAY THYROID STIM HORMONE CPT-4: 51767 12/03/2015 COMPREHEN METABOLIC PANEL CPT-4: 82256 12/03/2015 A1C HPLC CPT-4: 46906 12/03/2015 ASSAY OF MAGNESIUM CPT-4: 41843 12/03/2015 URINALYSIS NONAUTO W/O SCOPE CPT-4: 24328 12/03/2015 URINE CULTURE/ COLONY COUNT CPT-4: 79145 12/03/2015 URINALYSIS NONAUTO W/O SCOPE CPT-4: 82676 07/30/2013 URINE CULTURE/ COLONY COUNT CPT-4: 77100 07/30/2013 ROUTINE VENIPUNCTURE CPT-4: 30852 07/30/2013 COMPLETE CBC W/AUTO DIFF WBC CPT-4: 12502 07/30/2013 COMPREHEN METABOLIC PANEL CPT-4: 99827 07/30/2013 C-REACTIVE PROTEIN CPT-4: 56915 07/30/2013 ROUTINE VENIPUNCTURE CPT-4: 66833 08/20/2012 ASSAY OF FREE THYROXINE CPT-4: 07150 08/20/2012 ASSAY THYROID STIM HORMONE CPT-4: 63514 08/20/2012 COMPREHEN METABOLIC PANEL CPT-4: 66617 08/20/2012 COMPLETE CBC W/AUTO DIFF WBC CPT-4: 12581 08/20/2012 LIPID PANEL CPT-4: 54970 08/20/2012 A1C GLYCOSYLATED HEMOGLOBIN TEST CPT-4: 01156 013 ASSAY, GLUCOSE, BLOOD QUANT CPT-4: 84260 06/21/2012 ASSAY, GLUCOSE, BLOOD QUANT CPT-4: 33416 05/21/2012 ROUTINE VENIPUNCTURE CPT-4: 40179 05/21/2012 COMPREHEN METABOLIC PANEL CPT-4: 78769 05/21/2012 A1C GLYCOSYLATED HEMOGLOBIN TEST CPT-4: 29221 012 CURRENT SMKLESS TOBACCO USER CPT-4: G8456 06/14/2011 PT VIS DOC USE EHR CER ATCB CPT-4: G8447 06/14/2011 PRESCRIP TRANSMIT VIA ERX SY CPT-4: G8553 06/14/2011 PT VIS DOC USE EHR CER ATCB CPT-4: G8447 03/03/2011 PRESCRIP TRANSMIT VIA ERX SY CPT-4: G8553 03/03/2011 ROUTINE VENIPUNCTURE CPT-4: 22367 01/27/2011 ASSAY OF FREE THYROXINE CPT-4: 06591 01/27/2011 ASSAY THYROID STIM HORMONE CPT-4: 70806 01/27/2011 PT VIS DOC USE EHR CER [...] 1: 158/90 Code: 8480-6 BMI: 34.3 Code: 92317-5 Heart Rate 1: 78 bpm Height: 6'1" Respiratory Rate: 20 bpm SpO2: 98% Tempera ture: 36.6 (C) / 97.8 (F) Weight: 260 lbs 11/02/2017 Blood Pressure 1: 134/92 Code: 8480-6 BMI: 32.3 Code: 22472-6 Heart Rate 1: 72 bpm Height: 6'1" SpO2: 98% Temperature: 36.4 (C) / 97.5 (F) Weight: 245 lbs 07/27/2017 Blood Pressure 1: 136/64 Code: 8480-6 BMI: 30.9 Code: 08315-2 Heart Rate 1: 78 bpm Height: 6'1" Respiratory Rate: 22 bpm SpO2: 98% Tempera ture: 36.4 (C) / 97.6 (F) Weight: 234 lbs 04/05/2017 Blood Pressure 1: 126/90 Code: 8480-6 BMI: 33.5 Code: 30922-3 Heart Rate 1: 76 bpm Height: 6'1" Respiratory Rate: 20 bpm SpO2: 97% Tempera ture: 37.0 (C) / 98.6 (F) Weight: 254 lbs 06/20/2016 Blood Pressure 1: 122/74 Code: 8480-6 BMI: 35.2 Code: 05209-3 Heart Rate 1: 80 bpm Height: 6'1" Respiratory Rate: 20 bpm SpO2: 97% Tempera ture: 36.9 (C) / 98.5 (F) Weight: 267 lbs 02/16/2016 Blood Pressure 1: 136/82 Code: 8480-6 BMI: 36.4 Code: 04014-8 Heart Rate 1: 66 bpm Height: 6'1" Respiratory Rate: 18 bpm SpO2: 96% Tempera ture: 36.4 (C) / 97.6 (F) Weight: 276 lbs 12/03/2015 Blood Pressure 1: 122/86 Code: 8480-6 BMI: 39.2 Code: 65664-5 Heart Rate 1: 76 bpm Height: 6' Respiratory Rate: 20 bpm Temperature: 37 .1 (C) / 98.7 (F) Weight: 289 lbs 06/24/2015 Blood Pressure 1: 136/84 Code: 8480-6 BMI: 40.7 Code: 49301-4 Heart Rate 1: 84 bpm Height: 6' Respiratory Rate: 20 bpm Temperature: 36 .9 (C) / 98.4 (F) Weight: 300 lbs 06/11/2015 Blood Pressure 1: 160/82 Code: 8480-6 BMI: 40.4 Code: 58368-6 Heart Rate 1: 82 bpm Height: 6' Respiratory Rate: 22 bpm Temperature: 36 .5 (C) / 97.7 (F) Weight: 298 lbs 07/17/2014 Blood Pressure 1: 132/84 Code: 8480-6 BMI: 41.0 Code: 05078-0 Heart Rate 1: 76 bpm Height: 6'1" Respiratory Rate: 20 bpm Temperature: 36 .9 (C) / 98.4 (F) Weight: 311 lbs 10/31/2013 Blood Pressure 1: 132/80 Code: 8480-6 BMI: 41.2 Code: 94062-8 Heart Rate 1: 84 bpm Height: 6'1" Respiratory Rate: 22 bpm Temperature: 36 .1 (C) / 97.0 (F) Weight: 312 lbs 08/01/2013 Blood Pressure 1: 142/86 Code: 8480-6 BMI: 42.4 Code: 24884-8 Heart Rate 1: 84 bpm Height: 6' [...] 1: 156/108 Code: 8480-6 BMI: 41.9 Code: 70854-5 Heart Rate 1: 92 bpm Height: 6' Respiratory Rate: 20 bpm Temperature: 36 .9 (C) / 98.4 (F) Weight: 309 lbs 02/27/2013 Blood Pressure 1: 162/114 Code: 8480-6 BMI: 41.0 Code: 21046-8 Heart Rate 1: 84 bpm Height: 6' Respiratory Rate: 20 bpm Temperature: 36 .7 (C) / 98.0 (F) Weight: 302 lbs 01/01/2013 Blood Pressure 1: 138/86 Code: 8480-6 BMI: 41.0 Code: 22873-4 Heart Rate 1: 76 bpm Height: 6' Respiratory Rate: 20 bpm Temperature: 36 .7 (C) / 98.0 (F) Weight: 302 lbs 11/27/2012 Blood Pressure 1: 136/92 Code: 8480-6 BMI: 41.2 Code: 02383-0 Heart Rate 1: 80 bpm Height: 6' Respiratory Rate: 20 bpm Temperature: 36 .6 (C) / 97.8 (F) Weight: 304 lbs 08/28/2012 Blood Pressure 1: 126/80 Code: 8480-6 BMI: 41.8 Code: 90108-1 Heart Rate 1: 80 bpm Height: 6' Respiratory Rate: 20 bpm Temperature: 36 .4 (C) / 97.6 (F) Weight: 308 lbs 07/03/2012 Blood Pressure 1: 114/80 Code: 8480-6 BMI: 42.3 Code: 71610-8 Heart Rate 1: 72 bpm Height: 6' Respiratory Rate: 20 bpm Temperature: 36 .6 (C) / 97.9 (F) Weight: 312 lbs 06/21/2012 Blood Pressure 1: 152/100 Code: 8480-6 BMI: 43.3 Code: 86517-6 Heart Rate 1: 72 bpm Height: 6' Temperature: 36.8 (C) / 98.2 (F) Weight: 319 lbs 05/30/2012 Blood Pressure 1: 122/78 Code: 8480-6 BMI: 43.0 Code: 23523-2 Heart Rate 1: 72 bpm Height: 6' Respiratory Rate: 20 bpm Temperature: 36 .7 (C) / 98.0 (F) Weight: 317 lbs 05/21/2012 Blood Pressure 1: 126/94 Code: 8480-6 BMI: 44.2 Code: 53239-2 Heart Rate 1: 92 bpm Height: 6' Respiratory Rate: 20 bpm Temperature: 36 .6 (C) / 97.9 (F) Weight: 326 lbs 01/24/2012 Blood Pressure 1: 122/90 Code: 8480-6 BMI: 44.5 Code: 75480-2 Heart Rate 1: 76 bpm Height: 6' Respiratory Rate: 20 bpm Temperature: 36 .8 (C) / 98.2 (F) Weight: 328 lbs 09/21/2011 Blood Pressure 1: 116/80 Code: 8480-6 BMI: 44.1 Code: 81130-8 Heart Rate 1: 92 bpm Height: 6' Respiratory Rate: 20 bpm Temperature: 36 .7 (C) / 98.1 (F) Weight: 325 lbs 09/12/2011 Blood Pressure 1: 166/110 Code: 8480-6 BMI: 45.0 Code: 51731-1 Heart Rate 1: 80 bpm Height: 6' Respiratory Rate: 20 bpm Temperature: 36 .5 (C) / 97.7 (F) Weight: 332 lbs 06/14/2011 Blood Pressure 1: 142/84 Code: 8480-6 BMI: 45.6 Code: 71363-9 Heart Rate 1: 104 bpm Height: 6' Respiratory Rate: 20 bpm Temperature: 36 .4 (C) / 97.5 (F) Weight: 336 lbs 03/03/2011 Blood Pressure 1: 130/96 Code: 8480-6 Heart Rate 1: 86 bpm Temperature: 36.1 (C) / 97.0 (F) Weight: 327 lbs 01/27/2011 Blood Pressure 1: 142/96 Code: 8480-6 BMI: 42.0 Code: 88696-6 Heart Rate 1: 72 bpm Height: 6'2" [...] lower quadrant pain[ICD10: R10.31] Galina SMITH DO [facility] CPT-4: 06933 05/20/2019 ([id number]) OFFICE/OUTPATIENT VISIT EST Diagnosis: Essential (primary) hypertension[ICD10: I10] Diagnosis: 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) drug therapy[ICD10: Z79.899] Diagnosis: Encounter for aftercare following other organ transplant[ICD10: Z48.298] Diagnosis: Mixed hyperlipidemia[ICD10: E78.2] Galina WARREN [employer] CPT-4: 00836 08/24/2018 ([id number]) NURSE/OUTPATIENT VISIT EST Diagnosis: Type 2 diabetes mellitus with diabetic neuropathy, unspecified[ICD10: E11.40] Diagnosis: Type 2 diabetes mellitus with hyperglycemia[ICD10: E11.65] 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] Diagnosis: Essential (primary) hypertension[ICD10: I10] Galinamaria luisa Smith GALINA Meron SM[facility] [employer] CPT-4: 64360 06/29/2018 ([id number]) OFFICE/OUTPATIENT VISIT EST Diagnosis: Slow transit constipation[ICD10: K59.01] Diagnosis: Epigastric pain[ICD10: R10.13] Diagnosis: Type 2 diabetes mellitus with hyperglycemia[ICD10: E11.65] Coleen Peacockdi GALINA Meron SMITH [employer] CPT-4: 55013 06/26/2018 ([id number]) OFFICE/OUTPATIENT VISIT EST Diagnosis: Right lower quadrant pain[ICD10: R10.31] Diagnosis: Type 2 diabetes mellitus with diabetic neuropathy, unspecified[ICD10: E11.40] Coleen Tkedith DENNISONQUELINE Meron [facility] [employer] CPT-4: 03550 ([id number]) OFFICE/OUTPATIENT VISIT EST Diagnosis: Type 2 diabetes mellitus with hyperglycemia[ICD10: E11.65] Diagnosis: Mixed hyperlipidemia[ICD10: E78.2] Diagnosis: Essential (primary) hypertension[ICD10: I10] Coleen SMITH [facility] CPT-4: 70014 11/02/2017 ([id number]) PREV VISIT EST AGE 18-39 Diagnosis: Encounter for general adult medical examination with abnormal findings[ICD10: Z00.01] Diagnosis: Abrasion of right hand, initial encounter[ICD10: S60.511A] 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] Coleen SMITH [employer] [facility] CPT-4: 57610 OFFICE/OUTPATIENT VISIT EST 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] Diagnosis: Tinea pedis[ICD10: B35.3] [facility] 82325 04/05/2017 ([id number]) OFFICE/OUTPATIENT VISIT EST Diagnosis: 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, 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] Diagnosis: Mixed hyperlipidemia[ICD10: E78.2] Diagnosis: Essential (primary) hypertension[ICD10: I10] Galina ASENCIO [facility] C[facility]: 06862 06/20/2016 ([id number]) OFFICE/OUTPATIENT VISIT EST Diagnosis: Urinary tract infection, site not specified[ICD10: N39.0] Missy Dao GALINA [facility]Karol [facility] CPT-4: 73025 02/16/2016 ([id number]) OFFICE/OUTPATIENT VISIT EST Diagnosis: Type 2 diabetes mellitus with hyperglycemia[ICD10: E11.65] Diagnosis: Cramp and spasm[ICD10: R25.2] Diagnosis: Hematuria, unspecified[ICD10: R31.9] Galina Chance [facility] CPT-4: 72873 12/03/2015 OFFICE/OUTPATIENT VISIT EST Diagnosis: Type 2 diabetes mellitus with diabetic neuropathy, unspecified[ICD10: E11.40] Alejandrasa Wenceslao SMITH [facility] CPT-4: 66520 06/24/2015 ([id number]) OFFICE/OUTPATIENT VISIT EST Diagnosis: Acute sinusitis, unspecified[ICD10: J01.90] Diagnosis: Otitis media, unspecified, bilateral[ICD10: H66.93] Galina SMITH [facility] CPT-4: 49713 06/11/2015 ([id number]) OFFICE/OUTPATIENT VISIT EST Diagnosis: 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[ICD9: 250.01] Diagnosis: HYPERTENSION[ICD9: 401.9] Diagnosis: HYPERLIPIDEMIA NEC/NOS[ICD9: 272.4] Diagnosis: KIDNEY TRANSPLANT STATUS[ICD9: V42.0] Galina SMITH [facility] CPT-4: 57880 07/17/2014 ([id number]) OFFICE/OUTPATIENT VISIT EST Diagnosis: 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[ICD9: 250.01] Diagnosis: HYPERTENSION[ICD9: 401.9] Galina ARTEAGA [facility] CPT-4: 79697 10/31/2013 ([id number]) OFFICE/OUTPATIENT VISIT EST Diagnosis: 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I[ICD9: 250.00] Diagnosis: HYPERTENSION[ICD9: 401.9] Diagnosis: HYPERLIPIDEMIA NEC/NOS[ICD9: 272.4] Galina SMITH [facility] CPT-4: 64447 08/01/2013 OFFICE/OUTPATIENT VISIT EST Diagnosis: HEMATURIA NOS[ICD9: 599.70] Diagnosis: Abdominal pain, acute, right lower quadrant[ICD9: 789.03] Diagnosis: KIDNEY TRANSPLANT STATUS[ICD9: V42.0] Alejandra SMITH [facility] CPT-4: 03627 07/30/2013 ([id number]) OFFICE/OUTPATIENT VISIT EST Diagnosis: Uncontrolled hypertension[ICD9: 401.9] Diagnosis: BRIEF DEPRESSIVE REACT[ICD9: 309.0] Galina SMITH [facility] CPT-4: 46446 05/30/2013 ([id number]) OFFICE/OUTPATIENT VISIT EST Diagnosis: HYPERTENSION[ICD9: 401.9] Diagnosis: Anticipatory grieving[ICD9: 309.0] Galina MEJIAMARILUZ BRIANA SKarol RODNDER [facility] CPT-4: 76745 04/29/2013 ([id number]) OFFICE/OUTPATIENT VISIT EST Diagnosis: 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I, UNCONTROLLED[ICD9: 250.02] Diagnosis: HYPERTENSION[ICD9: 401.9] Diagnosis: HYPOTHYROIDISM[ICD9: 244.9] Diagnosis: KIDNEY TRANSPLANT STATUS[ICD9: V42.0] Galina THRASHER ERLIN [facility] CPT-[facility]: 05749 02/27/2013 OFFICE/OUTPATIENT VISIT EST Diagnosis: Paronychia[ICD9: 681.9] Diagnosis: ONYCHOMYCOSIS[ICD9: 110.1] [facility]y [facility]: 63657 01/01/2013 ([id number]) OFFICE/OUTPATIENT VISIT EST Diagnosis: 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I, UNCONTROLLED[ICD9: 250.02] Diagnosis: HYPERLIPIDEMIA NEC/NOS[ICD9: 272.4] Diagnosis: HYPERTENSION[ICD9: 401.9] Diagnosis: KIDNEY TRANSPLANT STATUS[ICD9: V42.0] Diagnosis: HYPOTHYROIDISM[ICD9: 244.9] Galina ASENCIO SusuKarol O ROB [facility] CPT-4: 54892 11/27/2012 ([id number]) OFFICE/OUTPATIENT VISIT EST Diagnosis: 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I[ICD9: 250.00] Diagnosis: HYPOTHYROIDISM[ICD9: 244.9] Diagnosis: HYPERLIPIDEMIA NEC/NOS[ICD9: 272.4] Diagnosis: HYPERTENSION[ICD9: 401.9] Galina ASENCIO SusuKarol ORE NDER [facility] CPT-4: 04477 08/28/2012 ([id number]) OFFICE/OUTPATIENT VISIT EST Diagnosis: HYPOTHYROIDISM[ICD9: 244.9] Diagnosis: 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I, UNCONTROLLED[ICD9: 250.02] Diagnosis: HYPERLIPIDEMIA NEC/NOS[ICD9: 272.4] Diagnosis: KIDNEY TRANSPLANT STATUS[ICD9: V42.0] Diagnosis: HYPERTENSION[ICD9: 401.9] Galina ASENCIO SusuKarol ORE NDER [facility] CPT-4: 38940 08/20/2012 OFFICE/OUTPATIENT VISIT EST Diagnosis: 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I, UNCONTROLLED[ICD9: 250.02] Diagnosis: HYPERTENSION[ICD9: 401.9] Galina ARTEAGA [facility] CPT-4: 52722 07/03/2012 OFFICE/OUTPATIENT VISIT EST Diagnosis: 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I, UNCONTROLLED[ICD9: 250.02] Diagnosis: HYPERTENSION[ICD9: 401.9] Galina ARTEAGA [facility] CPT-4: 08687 06/21/2012 OFFICE/OUTPATIENT VISIT EST Diagnosis: 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I, UNCONTROLLED[ICD9: 250.02] Diagnosis: HYPERTENSION[ICD9: 401.9] Diagnosis: HYPERLIPIDEMIA NEC/NOS[ICD9: 272.4] Diagnosis: KIDNEY TRANSPLANT STATUS[ICD9: V42.0] Galina SMITH [facility] CPT-4: 31618 05/30/2012 ([id number]) OFFICE/OUTPATIENT VISIT EST Diagnosis: HYPERTENSION[ICD9: 401.9] Diagnosis: VISUAL DISTURBANCE[ICD9: 368.9] Galina SMITH [facility] CPT-4: 31912 05/21/2012 ([id number]) OFFICE/OUTPATIENT VISIT EST Diagnosis: HYPERTENSION[ICD9: 401.9] Diagnosis: HYPOTHYROIDISM[ICD9: 244.9] Diagnosis: KIDNEY TRANSPLANT STATUS[ICD9: V42.0] Galina SMITH [facility] CPT-4: 02203 01/24/2012 OFFICE/OUTPATIENT VISIT EST Diagnosis: DIZZINESS/VERTIGO[ICD9: 780.4] Diagnosis: HYPERTENSION[ICD9: 401.9] Galina ARTEAGA [facility] CPT-4: 24276 09/21/2011 ([id number]) OFFICE/OUTPATIENT VISIT EST Diagnosis: HYPERTENSION[ICD9: 401.9] Diagnosis: HYPOTHYROIDISM[ICD9: 244.9] Diagnosis: HYPERLIPIDEMIA NEC/NOS[ICD9: 272.4] Diagnosis: KIDNEY TRANSPLANT STATUS[ICD9: V42.0] Galina SMITH [facility] CPT-4: 77001 09/12/2011 OFFICE/OUTPATIENT VISIT EST Diagnosis: HYPOTHYROIDISM[ICD9: 244.9] Diagnosis: HYPERTENSION[ICD9: 401.9] Diagnosis: CEPHALGIA[ICD9: 784.0] Galina Oremateus ASENCIO SusuKarol RICK Augustine [facility] CPT-4: 94206 06/14/2011 OFFICE/OUTPATIENT VISIT EST Diagnosis: HYPERTENSION[ICD9: 401.9] Diagnosis: PHARYNGITIS, ACUTE[ICD9: 462] Diagnosis: HYPOTHYROIDISM[ICD9: 244.9] Galinamaria luisa ASENCIO SusuKarol Dank [facility] CPT-4: 91612 03/03/2011 OFFICE/OUTPATIENT VISIT EST Diagnosis: HYPOTHYROIDISM[ICD9: 244.9] Diagnosis: KIDNEY TRANSPLANT STATUS[ICD9: V42.0] Diagnosis: HYPERTENSION[ICD9: 401.9] Diagnosis: SINUSITIS, ACUTE[ICD9: 461.9] Galina Rodmateus GALINA [facility]: 38637 01/27/2011 ([id number]) OFFICE/OUTPATIENT VISIT EST Galina MCCLELLAN [facility]ol [facility] CPT[facility]: 46700 12/02/2010 Plan of Care Planned Activity Notes Codes Status Date Visit Diagnosis Plan: Right lower quadrant pain Discus sal: Check Stat UA, CBC, ESR, CMP Stay NPO If WBC or ESR elevated will need to proceed with CT scan of abdomen/pelvis ICD-9 : 789.03 ICD-10 : R10.31 05/20/2019 Appointment: Galina Smithl: [address] [facility] [facility] 05/20/2019 Visit Diagnosis Plan: Essential (primary) hypertension Discussion: Noncompliant Start amlodopine 5mg daily ICD-9 : 401.9 ICD-10 : I10 02/26/2019 Visit Diagnosis Plan: Mixed hyperlipidemia Discussion: Start atorvastatin 80mg daily ICD-9 : 272.4 ICD-10 : E78.2 02/26/2019 Visit Diagnosis Plan: 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, UNCO NTROLLED Discussion: Check HbA1C ICD-9 : 250.03 ICD-10 : E10.9 02/26/2019 Appointment: Galina Smithl: [address] [place] [address] FOLLOW UP 02/26/2019 Patient Education: atorvastatin- [employer] C[employer] [id number] [email or web address] Completed 02/26/2019 Appointment: Galina Smith WPtel: [address] [place] [address] [place] LAB 02/19/2019 Appointment: Coleen Frey [facility] [address] [place] [address] [place] had 2 flat tires this morning. NO SHOW - FORGIVE N 02/19/2019 Appointment: Galina Smith WPtel: [address] [facility]66[facility] 08/24/2018 Appointment: Galina Smith WPtel: [address] [place], [place] [id number] 06/29/2018 Visit Diagnosis Plan: Epigastric pain [...] he had labs done in dec at [facility]. will obtain lab results and order additional labs as needed. ICD-9 : 250.02 ICD-10 : E11.65 06/26/2018 Appointment: Coleen Frey [address] ACUTE ILLNESS 06/26/2018 Visit Diagnosis Plan: Right [...] ICD-10 : E11.40 02/06/2018 Appointment: Coleen Frey [address] [place], [place] [id number] ACUTE ILLNESS 02/06/2018 Patient Education: Patient Medication [...] ICD-10 : I10 11/02/2017 Appointment: Coleen Frey [address] [place], [place] [id number] FOLLOW UP 11/02/2017 Patient Education: Patient Medication [...] E11.59 07/27/2017 Visit Diagnosis Plan: Encounter for [facility] adult medical examination with abnormal findings Discussion: patient deferred influenza v accine at this time, received tdap shot. routine labs performed earlier today so will obtain results from [facility]. 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 follow up in [...] ICD-10 : B35.3 04/05/2017 Appointment: Coleen Frey [address] [place], [place] [phone] FOLLOW UP 04/05/2017 Patient Education: Patient Medication Summary Completed 04/05/2017 Patient Education: Patient Medication Summary Completed 04/05/2017 Care Plan: CBC Pending 04/05/2017 Care Plan: LIPID PANEL LOINC : 98636-1 Pending 04/05/2017 Care Plan: COMPREHEN METABOLIC PANEL [place] : 66461-2 Pending 04/05/2017 Visit Plan: Patient admits that [...] scale given 06/20/2016 Appointment: Galina Smith WPtel: [address] [place], [place] [id number] / lm-sp / lm ~sl FOLLOW UP 06/20/2016 Patient Education: Patient Medication Summary Completed 06/20/2016 Patient Education: Patient Medication Summary Completed 05/04/2016 Care Plan: COMPREHEN METABOLIC PANEL [place] : 89851-8 Pending 05/04/2016 Care Plan: CBC Pending 05/04/2016 Care Plan: LIPID PANEL LOINC : 43829-5 Pending 05/04/2016 Care Plan: A1C HPLC LOINC : 90072-9 Pending 05/04/2016 Visit Plan: Discussed with Dr Luis stephens as above while awaiting specialist to return his call Push fluids Follow up celine if not improving 02/16/2016 Appointment: Missy Dc [address] [place] [address] ACUTE ILLNESS 02/16/2016 Patient Education: Patient Medication Summary Completed 02/16/2016 Visit Plan: Check CMP, TSH, HbA1C, magne sium, UA now Hydrate and monitor blood sugar Use powerade zero in conjunction with water to stay hydrated Discussed elevated blood sugar can cause cramping as well 12/03/2015 Appointment: Galina Smith WPtel: [address] [place] [address] ACUTE ILLNESS 12/03/2015 Patient Education: Patient Medication Summary Completed 12/03/2015 Visit Plan: Labs completed this am in [facility] but do not have results yet. Start Lyrica 75mg PO bid Will Call in a week and let know if pain is improved. 06/24/2015 Appointment: Alejandra Billy WPtel: [address] [place], [place] [phone] ACUTE ILLNESS 06/24/2015 Patient Education: Patient Medication Summary Completed 06/24/2015 Patient Education: Lyrica - 18+ - No [place] Completed 06/24/2015 Visit Plan: Saline nasal flushes prn. Ty lenol/Motrin prn headache. Notify if persists/symptoms worsening. Obtain most recent lab Warned of increased BS with prednisone--has sliding scale to use 06/11/2015 Appointment: Galina Smith WPtel: [address] [place], [place] [id number] 06/10/15 vm cn....06/10/15 appt confirmed cn Cara ual Well Visit 06/11/2015 Patient Education: Patient Medication Summary Completed 06/11/2015 Appointment: Galina Smith WPtel: [address] [place], [place] [phone] FOLLOW UP 10/15/2014 Patient Education: Patient Medication Summary Completed 09/03/2014 Care Plan: COM[facility]HEN [facility]ABOLIC [facility]EL [facility] 71857-6 Ordered 09/03/2014 Visit Plan: Obtain most recent lab resul ts Will likely need HbA1C and Lipids if were not done Accuchecks q AC and HS 07/17/2014 Appointment: Galina Smith WPtel: [address] [place], [place] [phone] FOLLOW UP 07/17/2014 Patient Education: Patient Medication Summary Completed 07/17/2014 Appointment: Galina Smith WPtel: [address] [place], [place] [phone] 01/29 01/30 NO SHOW FOLLOW UP 01/30/2014 Visit Plan: Check CMP, HbA1C, CBC, Lipid s Pt sees transplant doctor next month Pt is currently just using insulin prn and monitering BS 10/31/2013 Appointment: Galina Smith WPtel: [address] [place], [place] [phone] FOLLOW UP 10/31/2013 Patient Education: Patient Medication Summary Completed 10/31/2013 Visit Plan: Continue current meds and ac uchecks 08/01/2013 Appointment: Galina Smith WPtel: [address] [place], [place] [phone] 07/31 VM FOLLOW UP 08/01/2013 Patient Education: Patient Medication Summary Completed 08/01/2013 Appointment: Alejandra Billy WPtel: [address] [place], [place] [id number] ACUTE ILLNESS 07/30/2013 Patient Education: Patient Medication Summary Completed 07/30/2013 Visit Plan: Restart Diovan--pt says need s PA Continue fluoxetine at 20mg daily 05/30/2013 Appointment: Galina Smith WPtel: [address] [place] [address] FOLLOW UP 05/30/2013 Patient Education: Patient Medication Summary Completed 05/30/2013 Appointment: Galina Smith WPtel: [address] [place] [address] [place] has appt following day FOLLOW UP 3 Visit Plan: Restart Diovan and Amlodopin e as has been out--new rx sent out Trial of Fluoxetine 20mg q AM Stress Reducers 04/29/2013 Appointment: Galina Smith WPtel: [address] [place] [address] 04/26 MOM made appt. confirmed monday ACUTE ILL NESS 04/29/2013 Patient Education: Patient Medication Summary Completed 04/29/2013 Visit Plan: Continue current meds and ac cuchecks Pt going for fasting lab next month 02/27/2013 Appointment: Galina Smith WPtel: [address] [place] [address] FOLLOW UP 02/27/2013 Patient Education: Patient Medication Summary Completed 02/27/2013 Appointment: Viky Acosta WPtel: [address] [place] [address] ACUTE ILLNESS 01/01/2013 Patient Education: Patient Medication Summary Completed 01/01/2013 Visit Plan: Continue current meds Check fasting lab next week 11/27/2012 Appointment: Galina Smith WPtel: [address] [place] [address] FOLLOW UP 11/27/2012 Patient Education: Patient Medication Summary Completed 11/27/2012 Visit Plan: Lab discussed Continue curre nt meds and accuchecks Pt sees transplant doctor in in October Check fasting lab and fwup in 3mos 08/28/2012 Appointment: Galina Smith WPtel: [address] [place], [place] [phone] 08/27 FOLLOW UP 08/28/2012 Patient Education: Patient Medication Summary Completed 08/28/2012 Appointment: Galina Smith WPtel: [address] [place], [place] [phone] [place] [address] 08/20/2012 Patient Education: Patient Medication Summary Completed 08/20/2012 Visit Plan: Continue levemir at current dose with accuchecks Use apidra with sliding scale Check Chem 7 and HbA1C in 2mos 07/03/2012 Appointment: Galina Smith WPtel: [address] [place] [address] 07/02 FOLLOW UP 07/03/2012 Patient Education: Patient [...] 320mg daily 06/21/2012 Appointment: Galina Smith WPtel: [address] [place] [address] ACUTE ILLNESS 06/21/2012 Patient Education: Patient Medication Summary Completed 06/21/2012 Visit Plan: Increase Levemir to 75 u sc q PM Continue sliding scale insulin with accuchecks q AC and HS Call in 1wk with BS readings 05/30/2012 Appointment: Galina Smith WPtel: [address] [place], [place] [phone] [place] [address] Follow Up 05/30/2012 Patient Education: Patient Medication Summary Completed 05/30/2012 Appointment: Galina Smith WPtel: [address] [place], [place] [phone] 05/21 - cancelled appointment for 05/22 because PT was worke d in on 12/10 FOLLOW UP 05/22/2012 Appointment: Galina Smith WPtel: [address] [place], [place] [phone] [place] WORK IN 05/21/2012 Appointment: Galina Smith WPtel: [address] [place], [place] [phone] [place] LAB 05/21/2012 Patient Education: Patient Medication Summary Completed 05/21/2012 Visit Plan: Continue current meds Obtain most recent lab done at [facility] 01/24/2012 Appointment: Galina Smith WPtel: [address] [place], [place] [id number] voicemail FOLLOW UP 01/24/2012 Patient Education: Patient Medication Summary Completed 01/24/2012 Visit Plan: Decrease Norvasc to 2.5mg da anne marie Check CBC, CMP, TSH, Free T4 09/21/2011 Appointment: Galina Smith WPtel: [address] [place] [address] ACUTE ILLNESS 09/21/2011 Patient Education: Patient Medication Summary Completed 09/21/2011 Visit Plan: Continue Diovan at current d ose Add amlodopine Check Lipids/LFTs with next lab 09/12/2011 Appointment: Galina Smith WPtel: [address] [place] [address] FOLLOW UP 09/12/2011 Patient Education: Patient Medication Summary Completed 09/12/2011 Visit Plan: Increase Diovan to 320mg po daily Check TSH and Free T4 with kidney lab next week 06/14/2011 Appointment: Galina Smith WPtel: [address] [place] [address] [place] FOLLOW UP 06/14/2011 Patient Education: Patient Medication Summary Completed 06/14/2011 Visit Plan: Z-pack then new toothebrush Start Diovan 03/03/2011 Appointment: Galina Smith WPtel: [address] [place] [address] ACUTE ILLNESS 03/03/2011 Patient Education: Patient Medication Summary Completed 03/03/2011 Appointment: Galina Smith WPtel: [address] [place], [place] [phone] FOLLOW UP 01/27/2011 Patient Education: Patient Medication Summary Completed 01/27/2011 Visit Plan: Continue current meds and pr oceed with lab per kidney transplant doctor Start Synthroid at 50mcg po daily 12/02/2010 Appointment: Galina Smith WPtel: [address] [place], [place] [phone] FOLLOW UP 12/02/2010 Patient Education: Patient Medication Summary Completed 12/02/2010 Appointment: Galina Smith WPtel: [address] [place], [place] [phone] Suture Removal 10/20/2009 Patient Education: Patient Medication Summary Completed 10/20/2009 Referral: Rudolph Núñez WPtel: [address] [facility] [address] [id number] [place] Referral Initiated Instructions Comment . Patient admits [...] well . Labs completed this am in [place] do not have results yet. Start Lyrica [...] and accuchecks Pt sees transplant doctor in [place] in October Check fasting lab and fwup [...] meds Obtain most recent lab done at [facility] . Decrease Norvasc to 2.5mg daily Check [...]
--- OUTSIDE RECORDS SUMMARY | 2019-08-21 00:08 | XMS REPORT | CCD ---
Author Author Cuauhtemoc Smith D.O. Organization [facility] Address [address] [place] [address] Phone Care Team Providers Care Plastic Boat Buffer Name Role Phone [facility] D.O., PP Unavailable CCM Unavailable Summary Purpose Interface Exchange Insurance Providers Payer name Policy type / Coverage type Covered democrat ID Effective Begin Date Effective End Date Blue Cross Blue Shield Blue Cross/Blue Shield [id number] 2017 Unknown Family History Family History data not found Social History Social History Element Codes Description Effective Dates Tobacco history SNOMED CT: [id number] Currently uses smokeless to bacco 06/14/2011 Allergies, [...] ICD-9: V58.44 ICD-10: Z48.298 08/24/2018 Active Other group home (current) drug therapy ICD-9: V58.69 ICD-10: Z79.899 [...] Start Date Stop Date Status Fill Instructions cephalexin 500 mg capsule RxNorm: 457871 1 Capsule(s) Oral thre e times a day 05/20/2019 05/26/2019 Active Prograf 0.5 mg capsule RxNorm: 357742 4 Capsule(s) Oral two skinny es a day 05/20/2019 No Stop Date Active pantoprazole 40 mg tablet,delayed release RxNorm: 365838 1 Tablet(s) Oral QD for stomach 05/20/2019 09/17/2019 Active CellCept 500 mg tablet RxNorm: 029043 2 Tablet(s) Oral two time s a day 05/20/2019 No Stop Date Active cephalexin 500 mg capsule RxNorm: 812337 1 Capsule(s) Oral thre e times a day 05/20/2019 05/19/2019 Inactive Levemir FlexTouch U-100 Insulin 100 unit/mL (3 mL) sub cutaneous pen RxNorm: 865741 INJECT 90 UNITS SUBCUTANEOUSLY TWICE DAILY 05/11/[address] op Date Active Levemir FlexTouch U-100 Insulin 100 unit/mL (3 mL) sub cutaneous pen RxNorm: 958859 100 Unit(s) Subcutaneous two times a day 03/04/2019 06/02/2019 Active Levemir FlexTouch U-100 Insulin 100 unit/mL (3 mL) sub cutaneous pen RxNorm: 299477 90 Unit(s) SQ BID 100 Unit(s) Subcutaneous two times a day 0 03/04/2019 03/04/2019 Inactive amlodipine 5 mg tablet RxNorm: 799689 1 Tablet(s) PO QD for BP 02/1008/24/2019 Active atorvastatin 80 mg tablet RxNorm: 326664 1 Tablet(s) PO QD 02/27/2005/26/2019 Active Novolog Flexpen U-100 Insulin aspart 100 unit/mL (3 mL ) subcutaneous RxNorm: 2906867 INJECT SUBCUTANEOUSLY NEEDED PER SLIDING SCALE 02/22/2019 No Stop Date Active Levemir FlexTouch U-100 Insulin 100 unit/mL (3 mL) sub cutaneous pen RxNorm: 714375 90 Unit(s) SQ BID 01/08/2019 03/03/2019 Inactive Levemir FlexTouch U-100 Insulin 100 unit/mL (3 mL) sub cutaneous pen RxNorm: 594832 90 Unit(s) SQ BID 12/04/2018 12/03/2018 Inactive Levemir FlexTouch U-100 Insulin 100 unit/mL (3 mL) sub cutaneous pen RxNorm: 893903 90 Unit(s) SQ BID 12/04/2018 01/07/2019 Inactive Levemir FlexTouch U-100 Insulin 100 unit/mL (3 mL) sub cutaneous pen RxNorm: 080852 70 Unit(s) SQ BID 10/26/2018 12/04/2018 Inactive Levemir FlexTouch U-100 Insulin 100 unit/mL (3 mL) sub cutaneous pen RxNorm: 360654 GIVE 90 UNITS SUBCUTANEOUSLY TWICE DAILY 10/08/2018 10/26/2018 Inactive Levemir FlexTouch U-100 Insulin 100 unit/mL (3 mL) sub cutaneous pen RxNorm: 023920 90 Unit(s) SQ BID 07/30/2018 10/07/2018 Inactive Levemir FlexTouch U-100 Insulin 100 unit/mL (3 mL) sub cutaneous pen RxNorm: 343300 90 Unit(s) SQ BID 07/06/2018 07/29/2018 Inactive Pen Needle 31 gauge x 5/16" RxNorm: USE DIRECTED 03/21/2018 No Stop Date Active Levemir FlexTouch U-100 Insulin 100 unit/mL (3 mL) sub cutaneous pen RxNorm: 715507 80 Unit(s) SQ BID 02/15/2018 07/06/2018 Inactive Levemir FlexTouch U-100 Insulin 100 unit/mL (3 mL) sub cutaneous pen RxNorm: 394746 INJECT 105 UNITS SUBCUTANEOUSLY IN THE EVENING 01/24/2018 0 02/15/2018 Inactive Levemir FlexTouch U-100 Insulin 100 unit/mL (3 mL) sub cutaneous pen RxNorm: 944091 INJECT 105 UNITS SUBCUTANEOUSLY IN THE EVENING 12/26/2017 0 01/23/2018 Inactive Novolog Flexpen U-100 Insulin aspart 100 unit/mL (3 mL ) subcutaneous RxNorm: 3617997 INJECT SUBCUTANEOUSLY NEEDED PER SLIDING SCALE 12/25/2017 02/21/2019 Inactive Levemir FlexTouch U-100 Insulin 100 unit/mL (3 mL) sub cutaneous pen RxNorm: 453130 70 Unit(s) SQ BID 11/03/2017 11/03/2017 Inactive Levemir FlexTouch U-100 Insulin 100 unit/mL (3 mL) sub cutaneous pen RxNorm: 912049 105 Unit(s) SQ QPM 11/02/2017 11/02/2017 Inactive Levemir FlexTouch U-100 Insulin 100 unit/mL (3 mL) sub cutaneous pen RxNorm: 549596 105 Unit(s) SQ QPM Needs updated labs 11/01/2017 11/01/2017 [place] ctive Levemir FlexTouch U-100 Insulin 100 unit/mL (3 mL) sub cutaneous pen RxNorm: 541867 Unit(s) 105 Unit(s) SQ QPM 09/18/2017 09/18/2017 Inactive Levemir FlexTouch U-100 Insulin 100 unit/mL (3 mL) sub cutaneous pen RxNorm: 455125 105 Unit(s) SQ QPM 08/07/2017 09/18/2017 Inactive cephalexin 500 mg capsule RxNorm: 022943 1 Capsule(s) PO BID 201708/02/2017 Inactive Levemir FlexTouch U-100 Insulin 100 unit/mL (3 mL) sub cutaneous pen RxNorm: 016917 105 Unit(s) SQ QPM 06/07/2017 06/07/2017 Inactive Levemir FlexTouch 100 unit/mL (3 mL) subcutaneous insulin pe n RxNorm: 373455 105 Unit(s) SQ QPM 05/11/2017 06/07/2017 Inactive Lipitor 40 mg tablet RxNorm: 115245 1 Tablet(s) PO QD 04/05/201703/13 Inactive nystatin 100,000 unit/gram topical ointment RxNorm: 471391 1 Gr am(s) TOP BID 04/05/2017 05/02/2017 Inactive Lipitor 40 mg tablet RxNorm: 416080 1.5 Tablet(s) PO QD 04/05/2017 Inactive Diovan 320 mg tablet RxNorm: 829863 1 Tablet(s) PO QD 04/05/201702/10 Inactive Levemir FlexTouch 100 unit/mL (3 mL) subcutaneous insulin pe n RxNorm: 092315 105 Unit(s) SQ QPM 04/05/2017 04/05/2017 Inactive Levemir FlexTouch 100 unit/mL (3 mL) subcutaneous insulin pe n RxNorm: 128948 90 Unit(s) SQ QPM LAST REFILL UNTIL LABS AND APPOINTMENT!!!! 04/05/2017 Inactive Novolog Flexpen 100 unit/mL subcutaneous RxNorm: 6500086 Unit(s) INJECT SUBCUTANEOUSLY NEEDED PER SLIDING SCALE---NEEDS UPDATED LABS 03/07/2017 12/03/2018 Inactive Levemir FlexTouch 100 unit/mL (3 mL) subcutaneous insulin pe n RxNorm: 852382 90 Unit(s) SQ QPM LAST REFILL UNTIL LABS AND APPOINTMENT!!!! 02/17/2017 Inactive Levemir FlexTouch 100 unit/mL (3 mL) subcutaneous insulin pe n RxNorm: 495278 90 Unit(s) SQ QPM NEEDS FASTING LABS AND APPOINTMENT BEFORE FURTHER REFILLS 12/22/2016 02/17/2017 Inactive Novolog Flexpen U-100 Insulin aspart 100 unit/mL subcutaneou s RxNorm: 3313586 Unit(s) INJECT SUBCUTANEOUSLY NEEDED PER SLIDING SCALE---NEEDS UPDATED LABS 11/28/2016 03/07/2017 Inactive Levemir FlexTouch 100 unit/mL (3 mL) subcutaneous insulin pe n RxNorm: 506580 90 Unit(s) VAG QPM 11/08/2016 12/22/2016 Inactive Levemir FlexTouch 100 unit/mL (3 mL) subcutaneous insulin pe n RxNorm: 281478 90 Unit(s) VAG QPM 11/08/2016 12/21/2016 Inactive Levemir FlexTouch 100 unit/mL (3 mL) subcutaneous insulin pe n RxNorm: 691431 80 Unit(s) VAG QPM 09/05/2016 11/08/2016 Inactive Levemir FlexTouch 100 unit/mL (3 mL) subcutaneous insulin pe n RxNorm: 851784 85 Unit(s) SQ QD 07/22/2016 09/05/2016 Inactive Levemir FlexTouch 100 unit/mL (3 mL) subcutaneous insulin pe n RxNorm: 210617 85 Unit(s) SQ QD 07/04/2016 07/21/2016 Inactive Levemir FlexTouch 100 unit/mL (3 mL) subcutaneous insulin pe n RxNorm: 142496 85 Unit(s) SQ QD 06/14/2016 06/19/2016 Inactive Levemir FlexTouch 100 unit/mL (3 mL) subcutaneous insulin pe n RxNorm: 634184 85 Unit(s) SQ QD 05/03/2016 05/22/2016 Inactive Levemir FlexTouch 100 unit/mL (3 mL) subcutaneous insulin pe n RxNorm: 952284 85 Unit(s) SQ QD 05/03/2016 05/02/2016 Inactive Levemir FlexTouch 100 unit/mL (3 mL) subcutaneous insulin pe n RxNorm: 641019 85 Unit(s) SQ QD 03/14/2016 04/22/2016 Inactive cefuroxime axetil 250 mg tablet RxNorm: 048568 1 Tablet(s) PO BID 0 02/16/2016 02/25/2016 Inactive Levemir FlexTouch 100 unit/mL (3 mL) subcutaneous insulin pe n RxNorm: 981887 85 Unit(s) SQ QD 02/03/2016 03/13/2016 Inactive Levemir FlexTouch 100 unit/mL (3 mL) subcutaneous insulin pe n RxNorm: 407698 85 Unit(s) SQ QD 12/07/2015 02/02/2016 Inactive Pen Needle 31 gauge x 5/16" RxNorm: USE DIRECTED 11/19/201510/2015 Inactive Levemir FlexTouch 100 unit/mL (3 mL) subcutaneous insulin pe n RxNorm: 384238 INJECT 75 UNITS SUBCUTANEOUSLY ONCE DAILY; NEED LABS AND APPT 10/06/2015 12/04/2015 Inactive Novolog Flexpen 100 unit/mL subcutaneous RxNorm: 3242213 INJECT SUBCUTANEOUSLY NEEDED PER SLIDING SCALE 09/15/2015 11/28/2016 Inactive Levemir FlexTouch 100 unit/mL (3 mL) subcutaneous insulin pe n RxNorm: 937535 75 Unit(s) SQ QD Needs lab and appointment 07/13/2015 10/05/2015 Inactive Lyrica 75 mg capsule RxNorm: 879992 1 Capsule(s) PO BID 06/24/2015 Inactive Levemir FlexTouch 100 unit/mL (3 mL) subcutaneous insulin pe n RxNorm: 089003 75 Unit(s) SQ QD Needs lab and appointment 06/23/2015 07/12/2015 Inactive Novolog Flexpen 100 unit/mL subcutaneous RxNorm: 4322615 Unit(s) SQ as needed Sliding scale 06/15/2015 09/14/2015 Inactive Flonase Allergy Relief 50 mcg/actuation nasal spray,suspensi on RxNorm: 2 [place] NASAL QHS 06/11/2015 12/02/2015 Inactive prednisone 20 mg tablet RxNorm: 300725 1 Tablet(s) PO T ID for 3 days then 1 po BID for 3 days then one daily for 3 days 06/11/2015 12/02/2015 Inactiv e cefdinir 300 mg capsule RxNorm: 945507 2 Capsule(s) PO QD 06/11/2015 06/24/2015 Inactive Levemir FlexTouch 100 unit/mL (3 mL) subcutaneous insulin pe n RxNorm: 392342 75 Unit(s) SQ QD Needs lab and appointment 05/29/2015 06/22/2015 Inactive Novolog 100 unit/mL subcutaneous solution RxNorm: 219534 Unit(s) SQ Inject as directed using sliding scale B 05/29/2015 12/03/2018 Inactive Levemir Flexpen 100 unit/mL (3 mL) solution subcutaneo us insulin pen RxNorm: 985828 INJECT 75 UNITS SUBCUTANEOUSLY EVERY DAY 05/11/2015 05/29/2015 Inactive Levemir FlexTouch 100 unit/mL (3 mL) subcutaneous insulin pe n RxNorm: 431895 75 Unit(s) SQ QHS 03/30/2015 12/03/2018 Inactive Levemir FlexTouch 100 unit/mL (3 mL) subcutaneous insulin pe n RxNorm: 881370 75 Unit(s) SQ QHS 03/09/2015 03/29/2015 Inactive Contour Test Strips RxNorm: Miscellaneous 01/27/2015 No Stop Date Ac tive Novolog 100 unit/mL subcutaneous solution RxNorm: 715471 Unit(s) SQ Inject as directed using sliding scale B 01/27/2015 05/29/2015 Inactive Levemir Flexpen 100 unit/mL (3 mL) solution subcutaneo us insulin pen RxNorm: 375636 INJECT 75 UNITS SUBCUTANEOUSLY EVERY DAY 11/05/2014 03/09/2015 Inactive Levemir Flexpen 100 unit/mL (3 mL) solution subcutaneo us insulin pen RxNorm: 078397 INJECT 75 UNITS SUBCUTANEOUSLY EVERY DAY 08/13/2014 10/31/2014 Inactive Novolog 100 unit/mL subcutaneous solution RxNorm: 996146 Unit(s) SQ Inject as directed using sliding scale B 07/15/2014 01/26/2015 Inactive Apidra SoloStar 100 unit/mL subcutaneous insulin pen RxNorm: 473198 Unit(s) SQ INJECT DIRECTED USING SLIDING SCALE B 07/11/2014 07/14/2014 Inactiv e Diovan 320 mg tablet RxNorm: 275152 1 Tablet(s) PO QD 06/10/201405/13 Inactive Apidra SoloStar 100 unit/mL subcutaneous insulin pen RxNorm: 758361 Unit(s) SQ INJECT DIRECTED USING SLIDING SCALE B 04/18/2014 07/10/2014 Inactiv e Levemir Flexpen 100 unit/mL (3 mL) solution subcutaneo us insulin pen RxNorm: 428664 Unit(s) SQ INJECT 75 UNITS SUBCUTANEOUSLY EVERY DAY 09/02/27/2014 Inactive [SAVINGS FOR UNINSURED PATIE NTS -- BIN:[id number], PCN: [id number], Group: [id number], ID# [id number], Process claim through [employer], for questions: . THIS IS NOT INSURANCE.] Apidra SoloStar 100 unit/mL subcutaneous insulin pen RxNorm: 310565 Unit(s) SQ INJECT DIRECTED USING SLIDING SCALE B 09/05/2013 04/17/2014 Inactiv e Pen Needle 31 gauge x 5/16" RxNorm: Miscellaneou s USE DIRECTED WITH LEVEMIR AND APIDRA 08/23/2013 11/18/2015 Inactive Prograf 1 mg capsule RxNorm: 228291 2 Capsule(s) PO BID Generic OK to fill 08/21/2013 05/19/2019 Inactive Diovan 320 mg tablet RxNorm: 749270 1 Tablet(s) PO QD 05/30/201305/12 Inactive fluoxetine 20 mg tablet RxNorm: 500422 1 Tablet(s) PO QAM 05/30/2013 07/31/2013 Inactive fluoxetine 20 mg tablet RxNorm: 170533 1 Tablet(s) PO QAM 04/29/2013 05/29/2013 Inactive amlodipine 5 mg tablet RxNorm: 193434 1 Tablet(s) PO QD 04/29/2013 Inactive ketoconazole 2 % topical cream RxNorm: 957893 Application TOP B ID for 2-4wks 04/29/2013 05/12/2013 Inactive Diovan 320 mg tablet RxNorm: 156615 1 Tablet(s) PO QD 04/29/201305/14 Inactive Apidra SoloStar 100 unit/mL subcutaneous insulin pen RxNorm: 789336 Unit(s) SQ Sliding Scale B 02/19/2013 09/05/2013 Inactive Levemir Flexpen 100 unit/mL (3 mL) solution subcutaneo us insulin pen RxNorm: 437163 Insulin Pen SQ INJECT 75 UNITS SUBCUTANEOUSLY EVERY DAY 01/1002/28/2014 Inactive Septra DS 800 mg-160 mg tablet RxNorm: 240594 1 Tablet(s) PO BI D antibiotic 01/01/2013 01/07/2013 Inactive ketoconazole 2 % topical cream RxNorm: 182247 1 Application TOP BID 01/01/2013 01/14/2013 Inactive Levemir Flexpen 100 unit/mL (3 mL) Sub-Q Insulin Pen RxNorm: 303954 Unit(s) SQ INJECT 75 UNITS SUB-Q ONCE A DAY 12/07/2012 No Stop Date Active Levemir Flexpen 100 unit/mL (3 mL) Sub-Q Insulin Pen RxNorm: 607855 Unit(s) SQ INJECT 75 UNITS SUB-Q ONCE A DAY 10/22/2012 12/07/2012 Inactive Levemir Flexpen 100 unit/mL (3 mL) Sub-Q Insulin Pen RxNorm: 677673 75 Unit(s) SQ QHS 08/20/2012 10/22/2012 Inactive Diovan 320 mg tablet RxNorm: 083873 1 Tablet(s) PO QD 07/30/201204/12 Inactive Levemir Flexpen 100 unit/mL (3 mL) Sub-Q Insulin Pen RxNorm: 728163 Insulin Pen SQ INJECT 75 UNITS SUB-Q ONCE A DAY 07/30/2012 10/21/2012 Inactive Levemir Flexpen 100 unit/mL (3 mL) Sub-Q Insulin Pen RxNorm: 050193 75 Unit(s) SQ QHS 07/30/2012 08/19/2012 Inactive Levemir Flexpen 100 unit/mL (3 mL) Sub-Q Insulin Pen RxNorm: 546878 75 Unit(s) SQ QHS 07/30/2012 07/29/2012 Inactive Diovan 320 mg tablet RxNorm: 573393 1 Tablet(s) PO QD 06/21/201202/2013 Inactive Diovan 320 mg tablet RxNorm: 599844 1 Tablet(s) PO QD 06/21/201202/2013 Inactive Diovan 320 mg tablet RxNorm: 499681 1 Tablet(s) PO QD 06/21/201207/13 Inactive CellCept 250 mg capsule RxNorm: 010479 4 Capsule(s) PO BID 06/14/19 13 05/19/2019 Inactive Prograf 1 mg capsule RxNorm: 685956 2 Capsule(s) PO BID Generic OK to fill 06/14/2012 06/20/2012 Inactive Apidra SoloStar 100 unit/mL Sub-Q Insulin Pen RxNorm: 118483 Unit(s) SQ Sliding Scale B 06/13/2012 12/03/2018 Inactive Levemir Flexpen 100 unit/mL (3 mL) Sub-Q Insulin Pen RxNorm: 521752 75 Unit(s) SQ QD 06/13/2012 No Stop Date Active Apidra SoloStar 100 unit/mL Sub-Q Insulin Pen RxNorm: 936093 Unit(s) SQ Sliding Scale B 06/13/2012 No Stop Date Active One Touch Delica Lancets RxNorm: Miscellaneous 06/13/2012 04/04/2017 Inactive Lipitor 40 mg tablet RxNorm: 391639 1 Tablet(s) PO QD 05/30/201208/10 Inactive Diovan 320 mg tablet RxNorm: 860482 1 Tablet(s) PO QD 05/30/201202/2013 Inactive Tricor 145 mg tablet RxNorm: 437389 1 Tablet(s) PO QD 05/30/201208/10 Inactive Lipitor 20 mg Tab RxNorm: 489688 1 Tablet(s) PO QD 09/12/2011 012 Inactive Synthroid 50 mcg Tab RxNorm: 683381 1 Tablet(s) PO QD 09/12/201111/11 Inactive Diovan 320 mg tablet RxNorm: 419834 1 Tablet(s) PO QD 09/12/201102/11 Inactive amlodipine 5 mg tablet RxNorm: 053951 1 Tablet(s) PO QD 09/12/2011 Inactive Diovan 320 mg Tab RxNorm: 632771 1 Tablet(s) PO QD 06/14/2011 012 Inactive Diovan 160 mg Tab RxNorm: 303657 1 Tablet(s) PO QD 03/03/2011 012 Inactive cefdinir 300 mg Cap RxNorm: 800752 2 Capsule(s) PO QD 01/27/201101/11 Inactive Synthroid 50 mcg Tab RxNorm: 624913 1 Tablet(s) PO QD 12/02/201001/11 Inactive Multivitamin & Mineral Formula Tab RxNorm: 1 Tablet(s) PO QD No St art Date Active Miralax 17 gram/dose oral powder RxNorm: 590535 PO BID in 6-8 o unces of water No Start Date Active Tylenol Extra Strength 500 mg tablet RxNorm: 176702 Tablet(s) P O as needed No Start Date Active Tricor Oral RxNorm: Oral No Start Date 05/29/2012 Inactive MagOx 400 mg tablet RxNorm: 062623 1 Tablet(s) PO QD No Start Date Inactive sodium bicarbonate Oral RxNorm: Oral No Start Date 06/19/2016 I nactive Fish Oil 1,000 mg capsule RxNorm: 1 Capsule(s) PO QD No Start Date 04/04/2017 Inactive Novofine Misc RxNorm: Miscellaneous No Start Date 06/12/2012 Inactiv e Percocet 5 mg-325 mg tablet RxNorm: 1262039 Tablet(s) PO as need ed Dr Parson No Start Date 04/04/2017 Inactive Contour Test Strips RxNorm: miscellaneous No Start Date 01/26/2015 I nactive Prograf 1 mg capsule RxNorm: 317677 2 Capsule(s) PO BID No Start Da te 06/13/2012 Inactive Zantac 150 mg Tab RxNorm: 278571 Tablet(s) PO PRN No Start Date 12/01 Inactive Levemir FlexTouch 100 unit/mL (3 mL) subcutaneous insulin pe n RxNorm: 031738 75 Unit(s) SQ QHS No Start Date 03/08/2015 Inactive CellCept 250 mg capsule RxNorm: 292112 4 Capsule(s) PO BID No Start Date 06/13/2012 Inactive Novolog 100 unit/mL subcutaneous solution RxNorm: 260911 Unit(s) SQ Inject as directed using sliding scale B No Start Date 07/14/2014 Inactive Novolog Flexpen 100 unit/mL subcutaneous RxNorm: 6128652 Unit(s) SQ as needed Sliding scale No Start Date 06/14/2015 Inactive Apidra SoloStar 100 unit/mL Sub-Q Insulin Pen RxNorm: 764799 Unit(s) SQ Sliding Scale B No Start Date 06/12/2012 Inactive Levemir FlexTouch U-100 Insulin 100 unit/mL (3 mL) sub cutaneous pen RxNorm: 606810 70 Unit(s) SQ BID No Start Date 02/06/2018 Inactive Pen Needle 31 X 5/16" RxNorm: Miscellaneous No Start Date 08/23/2013 Inactive Synthroid 50 mcg Tab RxNorm: 056108 1 Tablet(s) PO QD No Start Date 0 09/11/2011 Inactive Levemir Flexpen 100 unit/mL (3 mL) Sub-Q Insulin Pen RxNorm: 487367 70 Unit(s) SQ QHS No Start Date 07/29/2012 Inactive Levemir FlexTouch U-100 Insulin 100 unit/mL (3 mL) sub cutaneous pen RxNorm: 898976 80 Unit(s) SQ BID No Start Date 02/14/2018 Inactive Levemir FlexTouch 100 unit/mL (3 mL) subcutaneous insulin pe n RxNorm: 113048 80 Unit(s) SQ QPM No Start Date 09/04/2016 Inactive Lipitor 40 mg tablet RxNorm: 208341 1 Tablet(s) PO QD No Start Date 1 Inactive Ultram 50 mg tablet RxNorm: 084339 2 Tablet(s) PO TID as needed for pain No Start Date 06/10/2015 Inactive Prograf 1 mg Cap RxNorm: 319446 2 Capsule(s) PO BID No Start Date 02/2012 Inactive insulin needles (disposable) 32 x 5/16" RxNorm: Miscellaneous for use with flex pen No Start Date 04/04/2017 Inactive Levemir FlexTouch U-100 Insulin 100 unit/mL (3 mL) sub cutaneous pen RxNorm: 992935 90 Unit(s) SQ BID No Start Date 07/05/2018 Inactive Levemir Flexpen 100 unit/mL (3 mL) Sub-Q Insulin Pen RxNorm: 022020 65 Unit(s) SQ QD No Start Date 06/12/2012 Inactive pantoprazole 40 mg tablet,delayed release RxNorm: 390443 1 Tabl et(s) PO QD No Start Date 05/19/2019 Inactive Zithromax Z-Mateus 250 mg Tab RxNorm: 666282 Tablet(s) PO No Start Date 06/13/2011 Inactive as directed Lipitor 20 mg Tab RxNorm: 549359 1 Tablet(s) PO QD No Start Date [...] Code Item Item Code Result Date S vice Location GLYCOSYLATED HEMOGLOBIN TEST 50540 Hgb A1c 62772-4 13.9 % 0 02/27/2019 Unknown MEAN GLUC 4468410 Calc Mean Gluc 352 mg/dL 02/27/2019 Unkn own MICROALBUMIN URINE RANDOM 58038 U Microalbumin 2259.0 mg /L 02/26/2019 Unknown MICROALBUMIN URINE RANDOM 58385 U Creatinine 143 mg/dL 0 02/26/2019 Unknown MICROALBUMIN URINE RANDOM 75983 ALB/CR Ratio 1579.7 mg/g CR 02/26/2019 Unknown MAGNESIUM 69436 MAGNESIUM 1.4 mEq/L 02/19/2019 Unknown GFR CALC 8816788 GFR Non Afr Amr 37 mL/min 02/19/2019 Unk nown GFR CALC 6103627 GFR Afr Amr 45 mL/min 02/19/2019 Unknown [facility] 39240 Cholesterol 250 mg/dL 02/19/2019 Unkno wn LIP[facility] GROUP 65478 Triglyceride 465 mg/dL 02/19/2019 Unkn own [facility] GROUP 73821 HDL CHOLESTEROL 30 mg/dL 02/19/2019 U nknown LIP[facility] GROUP 05996 Chol/HDL Ratio 8.33 ratio 02/19/2019 U nknown L[facility] GROUP 01950 NON-HDL Chol 220 mg/dL 02/19/2019 Unkn own [facility] GROUP 76632 LDL Cholesterol N/A Trig >400 019 Unknown LIP[facility] GROUP 37829 Fasting Unknown 02/19/2019 Unknown COMPREHENSIVE METABOLIC 93602 AST 20 U/L 2018 Unknown COMPREHENSIVE METABOLIC 35655 ALT 30 U/L 2018 Unknown COMPREHENSIVE METABOLIC 53190 BUN 27 mg/dL 2018 Unknown COMPREHENSIVE METABOLIC 99373 ALBUMIN 3.7 g/dL 2018 Unknown COMPREHENSIVE METABOLIC 75490 CHLORIDE 105 mmol/L 02/19 Unknown COMPREHENSIVE METABOLIC 11148 Bili Total 0.5 mg/dL 02/19 Unknown COMPREHENSIVE METABOLIC 66141 ALK PHOS 79 U/L 2018 Unknown COMPREHENSIVE METABOLIC 99648 SODIUM 137 mmol/L 02/19 Unknown COMPREHENSIVE METABOLIC 63168 CREATININE 2.10 mg/dL 02/10 Unknown COMPREHENSIVE METABOLIC 36009 CALCIUM 9.5 mg/dL 2018 Unknown COMPREHENSIVE METABOLIC 79715 POTASSIUM 4.2 mmol/L 02/19 Unknown COMPREHENSIVE METABOLIC 40414 Total Protein 6.5 g/dL Unknown COMPREHENSIVE METABOLIC 83433 Glucose 202 mg/dL 2018 Unknown COMPREHENSIVE METABOLIC 04751 Bicarbonate 22 mmol/L 02/10 Unknown COMPREHENSIVE METABOLIC 47601 AGAP 10 mmol/L 2018 Unknown LIPID GROUP 31429 Cholesterol 320 mg/dL 08/27/2018 Unkno wn LIPID GROUP 61222 Triglyceride 444 mg/dL 08/27/2018 Unkn own LIPID GROUP 88273 HDL CHOLESTEROL 39 mg/dL 08/27/2018 U nknown LIPID GROUP 87143 Chol/HDL Ratio 8.21 ratio 08/27/2018 U nknown LIPID GROUP 62687 NON-HDL Chol 281 mg/dL 08/27/2018 Unkn own LIPID GROUP 60919 LDL Cholesterol N/A Trig >400 019 Unknown LIPID GROUP 54864 Fasting Unknown 08/27/2018 Unknown PHOSPHORUS 2749330 PHOSPHORUS 2.1 mg/dL 08/24/2018 Unknown PROTEIN/CREAT URINE WITH RATIO 46721|88220 U Protein 515 mg/ dL 08/24/2018 Unknown PROTEIN/CREAT URINE WITH RATIO 50207|78937 U Creatinine 116 mg/dL 08/24/2018 Unknown PROTEIN/CREAT URINE WITH RATIO 16178|89215 Prot:Creat Rat 4440 mg/g 08/24/2018 Unknown MAGNESIUM 44163 MAGNESIUM 1.4 mEq/L 08/24/2018 Unknown GFR CALC 6650155 GFR Non Afr Amr 44 mL/min 08/24/2018 Unk nown GFR CALC 8583824 GFR Afr Amr 53 mL/min 08/24/2018 [place] [address] Glucose TNP:Unknown Can shaw Reason 08/24/2018 [place] [address] CREATININE TNP:Unknown Cancel Reason 08/24/2018 [place] [address] BUN TNP:Unknown Can shaw Reason 08/24/2018 [place] [address] SODIUM TNP:Unknown Can shaw Reason 08/24/2018 [place] [address] POTASSIUM TNP:Unknown Cancel Reason 08/24/2018 [place] [address] CHLORIDE TNP:Unknown Can shaw Reason 08/24/2018 [place] [address] Bicarbonate TNP:Unknow n Cancel Reason 08/24/2018 [place] [address] AGAP TNP:Unknown Can shaw Reason 08/24/2018 [place] [address] CALCIUM TNP:Unknown Can shaw Reason 08/24/2018 Unknown COMPREHENSIVE METABOLIC 60248 AST 21 U/L 2018 Unknown COMPREHENSIVE METABOLIC 34842 ALT 35 U/L 2018 Unknown COMPREHENSIVE METABOLIC 63427 BUN 25 mg/dL 2018 Unknown COMPREHENSIVE METABOLIC 07864 ALBUMIN 4.5 g/dL 2018 Unknown COMPREHENSIVE METABOLIC 19748 CHLORIDE 106 mmol/L 08/24 Unknown COMPREHENSIVE METABOLIC 57483 Bili Total 0.4 mg/dL 08/24 Unknown COMPREHENSIVE METABOLIC 82107 ALK PHOS 64 U/L 2018 Unknown COMPREHENSIVE METABOLIC 78087 SODIUM 141 mmol/L 08/24 Unknown COMPREHENSIVE METABOLIC 74564 CREATININE 1.81 mg/dL 08/10 Unknown COMPREHENSIVE METABOLIC 50561 CALCIUM 10.3 mg/dL 08/24 Unknown COMPREHENSIVE METABOLIC 72846 POTASSIUM 3.4 mmol/L 08/24 Unknown COMPREHENSIVE METABOLIC 58852 Total Protein 7.2 g/dL Unknown COMPREHENSIVE METABOLIC 69147 Glucose 101 mg/dL 2018 Unknown COMPREHENSIVE METABOLIC 41155 Bicarbonate 23 mmol/L 08/10 Unknown COMPREHENSIVE METABOLIC 57734 AGAP 12 mmol/L 2018 Unknown UA W/MICR 57826 UA Urine Appear Normal 08/24/2018 Unk nown UA W/MICR 17715 UA Protein 3+ 08/24/2018 Unknown UA W/MICR 41148 UA Hemoglobin Trace 08/24/2018 Unkno wn UA W/MICR 07461 UA Glucose 3+ 08/24/2018 Unknown UA W/MICR 45395 UA Ketones Negative 08/24/2018 Unknown UA W/MICR 20609 UA pH 6.0 08/24/2018 Unknown UA W/MICR 34123 U Spec Sugar Run 1.025 08/24/2018 Unkn own UA W/MICR 42988 UA Bilirubin Negative 08/24/2018 Unknow n UA W/MICR 34479 UA Leuk Esteras Negative 08/24/2018 Unk nown UA W/MICR 98402 UA Nitrite NEG 08/24/2018 Unknown UA W/MICR 04783 UA WBC/hpf 1 08/24/2018 Unknown UA W/MICR 62456 UA RBC auto 12.9 /uL 08/24/2018 Unknown UA W/MICR 03475 UA RBC hpf 2 08/24/2018 Unknown UA W/MICR 04911 UA WBC auto 5.9 /uL 08/24/2018 Unknown UA W/MICR 96578 UA SQ EPI auto 5.2 /uL 08/24/2018 Unkn own UA W/MICR 87985 UA H Cast auto 0.10 /uL 08/24/2018 Unkn own PROGRAF [id number] Prograf 7.3 ng/mL 08/24/2018 Unknown MICROALBUMIN URINE RANDOM 58294 U Microalbumin 3485.2 mg /L 08/24/2018 Unknown MICROALBUMIN URINE RANDOM 75101 U Creatinine 116 mg/dL 0 08/24/2018 Unknown MICROALBUMIN URINE RANDOM 76130 ALB/CR Ratio 3004.5 mg/g CR 08/24/2018 Unknown GLYCOSYLATED HEMOGLOBIN TEST 87817 Hgb A1c 02391-0 13.3 % 0 06/29/2018 Unknown MEAN GLUC [id number] Calc Mean Gluc 335 mg/dL 06/29/2018 Unkn own COMPREHENSIVE METABOLIC 37991 AST 17 U/L 2017 Unknown COMPREHENSIVE METABOLIC 27818 ALT 24 U/L 2017 Unknown COMPREHENSIVE METABOLIC 61284 BUN 24 mg/dL 2017 Unknown COMPREHENSIVE METABOLIC 55812 ALBUMIN 3.9 g/dL 2017 Unknown COMPREHENSIVE METABOLIC 41348 CHLORIDE 108 mmol/L 02/06 Unknown COMPREHENSIVE METABOLIC 92895 Bili Total 0.6 mg/dL 02/06 Unknown COMPREHENSIVE METABOLIC 36312 ALK PHOS 67 U/L 2017 Unknown COMPREHENSIVE METABOLIC 86581 SODIUM 140 mmol/L 02/06 Unknown COMPREHENSIVE METABOLIC 01748 CREATININE 1.75 mg/dL 01/11 Unknown COMPREHENSIVE METABOLIC 03239 CALCIUM 9.6 mg/dL 2017 Unknown COMPREHENSIVE METABOLIC 27953 POTASSIUM 3.8 mmol/L 02/06 Unknown COMPREHENSIVE METABOLIC 37391 Total Protein 7.1 g/dL Unknown COMPREHENSIVE METABOLIC 05197 Glucose 62 mg/dL 2017 Unknown COMPREHENSIVE METABOLIC 06624 Bicarbonate 23 mmol/L 01/11 Unknown COMPREHENSIVE METABOLIC 42995 AGAP 9 mmol/L 2017 Unknown GLYCOSYLATED HEMOGLOBIN TEST 20392 Hgb A1c 01171-1 13.0 % 0 02/06/2018 Unknown GFR CALC 8329736 GFR Non Afr Amr 46 mL/min 02/06/2018 Unk nown GFR CALC 4893734 GFR Afr Amr 55 mL/min 02/06/2018 Unknown MICROALBUMIN URINE RANDOM 37981 U Microalbumin 669.0 mg/ L 02/06/2018 Unknown MICROALBUMIN URINE RANDOM 71660 U Creatinine 92 mg/dL 0 02/06/2018 Unknown MICROALBUMIN URINE RANDOM 02221 ALB/CR Ratio 727.2 mg/gC R 02/06/2018 Unknown MEAN GLUC 7649766 Calc Mean Gluc 326 mg/dL 02/06/2018 Unkn own GLYCOSYLATED HEMOGLOBIN TEST 10409 Hgb A1c 34306-6 14.3 % 0 12/03/2015 Unknown THYROID STIMULATING HORMONE 13515 TSH 1.909 uIU/mL 12/03/2015 Unknown MAGNESIUM 56366 MAGNESIUM 1.5 mEq/L 12/03/2015 Unknown GFR CALC 2203512 GFR Non Afr Amr 39 mL/min 12/03/2015 Unk nown GFR CALC 1016032 GFR Afr Amr 48 mL/min 12/03/2015 Unknown MEAN GLUC 9444082 Mean Glucose 364 mg/dL 12/03/2015 Unknow n COMPREHENSIVE METABOLIC 25143 AST 34 U/L 2015 Unknown COMPREHENSIVE METABOLIC 19757 ALT 78 U/L 2015 Unknown COMPREHENSIVE METABOLIC 19786 BUN 29 mg/dL 2015 Unknown COMPREHENSIVE METABOLIC 93842 ALBUMIN 4.3 g/dL 2015 Unknown COMPREHENSIVE METABOLIC 65769 CHLORIDE 93 mmol/L 2015 Unknown COMPREHENSIVE METABOLIC 36867 Bili Total 0.7 mg/dL 12/02 Unknown COMPREHENSIVE METABOLIC 24999 ALK PHOS 83 U/L 2015 Unknown COMPREHENSIVE METABOLIC 85352 SODIUM 125 mmol/L 12/02 Unknown COMPREHENSIVE METABOLIC 50854 CREATININE 2.01 mg/dL 11/11 Unknown COMPREHENSIVE METABOLIC 70945 CALCIUM 9.8 mg/dL 2015 Unknown COMPREHENSIVE METABOLIC 70697 POTASSIUM 4.3 mmol/L 12/02 Unknown COMPREHENSIVE METABOLIC 92291 Total Protein 7.3 g/dL Unknown COMPREHENSIVE METABOLIC 26714 Glucose 542 mg/dL 2015 Unknown COMPREHENSIVE METABOLIC 50013 Bicarbonate 23 mmol/L 11/11 Unknown COMPREHENSIVE METABOLIC 52196 AGAP 9 mmol/L 2015 Unknown COMPREHENSIVE METABOLIC 95234 AST 31 U/L 2013 Unknown COMPREHENSIVE METABOLIC 99146 ALT 52 IU/L 2013 Unknown COMPREHENSIVE METABOLIC 95403 BUN 26 MG/DL 2013 Unknown COMPREHENSIVE METABOLIC 47530 ALBUMIN 4.9 GM/DL 2013 Unknown COMPREHENSIVE METABOLIC 92514 CHLORIDE 108 MMOL/L 07/30 Unknown COMPREHENSIVE METABOLIC 37943 BILI TOT 0.4 MG/DL 2013 Unknown COMPREHENSIVE METABOLIC 22510 ALK PHOS 68 U/L 2013 Unknown COMPREHENSIVE METABOLIC 85988 SODIUM 138 MMOL/L 07/30 Unknown COMPREHENSIVE METABOLIC 80968 CREATININE 2.02 MG/DL 07/13 Unknown COMPREHENSIVE METABOLIC 23473 CALCIUM 10.3 MG/DL 07/30 Unknown COMPREHENSIVE METABOLIC 60584 POTASSIUM 5.0 MMOL/L 07/30 Unknown COMPREHENSIVE METABOLIC 47691 PROT TOT 7.3 GM/DL 2013 Unknown COMPREHENSIVE METABOLIC 37997 Glucose 89 MG/DL 2013 Unknown COMPREHENSIVE METABOLIC 78552 BICARB 24 MMOL/L 2013 Unknown COMPREHENSIVE METABOLIC 97048 ANION GAP 6 MEQ/L 2013 Unknown GFR CALC 5314975 GFR AA 48.0L ML/MIN 07/30/2013 Unknow n GFR CALC 9490201 GFR NON-AA 40.0L ML/MIN 07/30/2013 Unkno wn COMPLETE BLOOD COUNT 8031662 WBC 7.9 10e9/L 07/30/19 14 Unknown COMPLETE BLOOD COUNT [id number] RBC 4.94 10e12/L 2013 Unknown COMPLETE BLOOD COUNT 7669659 HGB 14.0 g/dL 4 Unknown COMPLETE BLOOD COUNT 9564044 HCT DET 41.5 % 4 Unknown COMPLETE BLOOD COUNT 2648033 MCV 84.0 fL 4 Unknown COMPLETE BLOOD COUNT 4951508 MCH 28.3 pg 4 Unknown COMPLETE BLOOD COUNT 1529671 MCHC 33.7 g/dL 4 Unknown COMPLETE BLOOD COUNT 7520682 PLT 176 10e9/L 07/30/19 14 Unknown COMPLETE BLOOD COUNT 1661202 MPV 11.8 fL 4 Unknown COMPLETE BLOOD COUNT 2363695 CLAYTON % 75.4 % 4 Unknown COMPLETE BLOOD COUNT 5995776 LY % 13.7 % 4 Unknown COMPLETE BLOOD COUNT 0998113 MON % 8.9 % 4 Unknown COMPLETE BLOOD COUNT 6095798 EOS % 1.7 % 4 Unknown COMPLETE BLOOD COUNT 4186352 BASO % 0.3 % 4 Unknown COMPLETE BLOOD COUNT 5834434 RDW 13.4 % 4 Unknown COMPLETE BLOOD COUNT [id number] ABS CLAYTON 5.96 10e9/L 014 Unknown COMPLETE BLOOD COUNT 7885562 ABS LYMPH 1.08 10e9/L 014 Unknown COMPLETE BLOOD COUNT 7650520 ABS MONO 0.70 10e9/L 014 Unknown COMPLETE BLOOD COUNT [id number] ABS EOS 0.13 10e9/L 014 Unknown COMPLETE BLOOD COUNT 8965617 ABS BASO 0.02 10e9/L 014 Unknown COMPLETE BLOOD COUNT [id number] RDW-SD 40.2 fL 4 Unknown C-REACTIVE PROTEIN (CRP) QUANT 16319 CRP 0.2 MG/DL 07/30/2013 Unknown CANCEL 7838186 CANCEL FOOTNOTE 05/23/2012 Unknown PEND CHEM PEND CHEM FOOTNOTE 05/22/2012 Unknown COMPREHENSIVE METABOLIC 00356 AST 61 U/L 2011 Unknown COMPREHENSIVE METABOLIC 62954 ALT 106 U/L 2011 Unknown COMPREHENSIVE METABOLIC 77740 BUN 33 MG/DL 2011 Unknown COMPREHENSIVE METABOLIC 61906 ALBUMIN 5.0 GM/DL 2011 Unknown COMPREHENSIVE METABOLIC 85308 CHLORIDE 89 MMOL/L 2011 Unknown COMPREHENSIVE METABOLIC 79207 BILI TOT 0.6 MG/DL 2011 Unknown COMPREHENSIVE METABOLIC 16504 ALK PHOS 129 U/L 2011 Unknown COMPREHENSIVE METABOLIC 90542 SODIUM 120 MMOL/L 05/21 Unknown COMPREHENSIVE METABOLIC 70534 CREATININE 2.23 MG/DL 05/12 Unknown COMPREHENSIVE METABOLIC 41213 CALCIUM 9.8 MG/DL 2011 Unknown COMPREHENSIVE METABOLIC 15769 POTASSIUM 5.3 MMOL/L 05/21 Unknown COMPREHENSIVE METABOLIC 44626 PROT TOT 7.8 GM/DL 2011 Unknown COMPREHENSIVE METABOLIC 01948 Glucose 789 MG/DL 2011 Unknown COMPREHENSIVE METABOLIC 00081 BICARB 20 MMOL/L 2011 Unknown COMPREHENSIVE METABOLIC 48157 ANION GAP 11 MMOL/L 2011 Unknown GFR CALC 3363684 GFR AA 43.0L ML/MIN 05/21/2012 Unknow n GFR CALC 9637604 GFR NON-AA 36.0L ML/MIN 05/21/2012 Unkno wn THYROID STIMULATING HORMONE 63489 TSH 1.499 uIU/ML 01/27/2011 Unknown FREE T4 80138 FREE T4 1.15 NG/DL 01/27/2011 Unknown Procedures Procedure Codes Date ROUTINE VENIPUNCTURE CPT-4: 58098 02/26/2019 A1C HPLC CPT-4: 09193 02/26/2019 MICROALBUMIN QUANTITATIVE CPT-4: 41254 02/26/2019 ROUTINE VENIPUNCTURE CPT-4: 66630 02/19/2019 METABOLIC PANEL TOTAL CA CPT-4: 74561 02/19/2019 MICROALBUMIN, QUANTITATIVE CPT-4: 88678 02/19/2019 LIPID PANEL CPT-4: 09545 02/19/2019 COMPREHEN METABOLIC PANEL CPT-4: 49434 02/19/2019 ASSAY OF MAGNESIUM CPT-4: 11878 02/19/2019 METABOLIC PANEL TOTAL CA CPT-4: 93794 08/24/2018 COMPREHEN METABOLIC PANEL CPT-4: 19781 08/24/2018 ASSAY OF MAGNESIUM CPT-4: 50796 08/24/2018 MICROALBUMIN QUANTITATIVE CPT-4: 56658 08/24/2018 PROTEIN/CREAT URINE WITH RATIO CPT-4: 28928|63911 9 PHOSPHORUS CPT-4: 8702829 08/24/2018 LIPID PANEL CPT-4: 02304 08/24/2018 ROUTINE VENIPUNCTURE CPT-4: 45497 06/29/2018 A1C HPLC CPT-4: 57495 06/29/2018 URINALYSIS NONAUTO W/O SCOPE CPT-4: 24787 02/06/2018 URINE CULTURE/ COLONY COUNT CPT-4: 04603 02/06/2018 MICROALBUMIN QUANTITATIVE CPT-4: 23774 02/06/2018 ROUTINE VENIPUNCTURE CPT-4: 99562 02/06/2018 COMPREHEN METABOLIC PANEL CPT-4: 21552 02/06/2018 A1C HPLC CPT-4: 71767 02/06/2018 ROUTINE VENIPUNCTURE CPT-4: 62237 11/02/2017 COMPREHEN METABOLIC PANEL CPT-4: 56225 11/02/2017 A1C HPLC CPT-4: 30684 11/02/2017 TDAP VACCINE 7 YRS/> IM CPT-4: 23462 07/27/2017 IMMUNIZATION ADMIN CPT-4: 18595 07/27/2017 URINALYSIS NONAUTO W/O SCOPE CPT-4: 67395 02/16/2016 URINE CULTURE/ COLONY COUNT CPT-4: 10447 02/16/2016 PRESCRIP TRANSMIT VIA ERX SY CPT-4: G8553 02/16/2016 ROUTINE VENIPUNCTURE CPT-4: 25775 12/03/2015 ASSAY THYROID STIM HORMONE CPT-4: 79586 12/03/2015 COMPREHEN METABOLIC PANEL CPT-4: 52516 12/03/2015 A1C HPLC CPT-4: 32373 12/03/2015 ASSAY OF MAGNESIUM CPT-4: 26823 12/03/2015 URINALYSIS NONAUTO W/O SCOPE CPT-4: 80100 12/03/2015 URINE CULTURE/ COLONY COUNT CPT-4: 30376 12/03/2015 URINALYSIS NONAUTO W/O SCOPE CPT-4: 15415 07/30/2013 URINE CULTURE/ COLONY COUNT CPT-4: 90829 07/30/2013 ROUTINE VENIPUNCTURE CPT-4: 18876 07/30/2013 COMPLETE CBC W/AUTO DIFF WBC CPT-4: 10398 07/30/2013 COMPREHEN METABOLIC PANEL CPT-4: 49334 07/30/2013 C-REACTIVE PROTEIN CPT-4: 68735 07/30/2013 ROUTINE VENIPUNCTURE CPT-4: 48696 08/20/2012 ASSAY OF FREE THYROXINE CPT-4: 07973 08/20/2012 ASSAY THYROID STIM HORMONE CPT-4: 20177 08/20/2012 COMPREHEN METABOLIC PANEL CPT-4: 59037 08/20/2012 COMPLETE CBC W/AUTO DIFF WBC CPT-4: 42748 08/20/2012 LIPID PANEL CPT-4: 60024 08/20/2012 A1C GLYCOSYLATED HEMOGLOBIN TEST CPT-4: 13216 013 ASSAY, GLUCOSE, BLOOD QUANT CPT-4: 89983 06/21/2012 ASSAY, GLUCOSE, BLOOD QUANT CPT-4: 10509 05/21/2012 ROUTINE VENIPUNCTURE CPT-4: 13849 05/21/2012 COMPREHEN METABOLIC PANEL CPT-4: 07620 05/21/2012 A1C GLYCOSYLATED HEMOGLOBIN TEST CPT-4: 26200 012 CURRENT SMKLESS TOBACCO USER CPT-4: G8456 06/14/2011 PT VIS DOC USE EHR CER ATCB CPT-4: G8447 06/14/2011 PRESCRIP TRANSMIT VIA ERX SY CPT-4: G8553 06/14/2011 PT VIS DOC USE EHR CER ATCB CPT-4: G8447 03/03/2011 PRESCRIP TRANSMIT VIA ERX SY CPT-4: G8553 03/03/2011 ROUTINE VENIPUNCTURE CPT-4: 09554 01/27/2011 ASSAY OF FREE THYROXINE CPT-4: 20679 01/27/2011 ASSAY THYROID STIM HORMONE CPT-4: 12088 01/27/2011 PT VIS DOC USE EHR CER [...] 1: 158/90 Code: 8480-6 BMI: 34.3 Code: 97407-4 Heart Rate 1: 78 bpm Height: 6'1" Respiratory Rate: 20 bpm SpO2: 98% Tempera ture: 36.6 (C) / 97.8 (F) Weight: 260 lbs 11/02/2017 Blood Pressure 1: 134/92 Code: 8480-6 BMI: 32.3 Code: 07078-7 Heart Rate 1: 72 bpm Height: 6'1" SpO2: 98% Temperature: 36.4 (C) / 97.5 (F) Weight: 245 lbs 07/27/2017 Blood Pressure 1: 136/64 Code: 8480-6 BMI: 30.9 Code: 74038-9 Heart Rate 1: 78 bpm Height: 6'1" Respiratory Rate: 22 bpm SpO2: 98% Tempera ture: 36.4 (C) / 97.6 (F) Weight: 234 lbs 04/05/2017 Blood Pressure 1: 126/90 Code: 8480-6 BMI: 33.5 Code: 79568-5 Heart Rate 1: 76 bpm Height: 6'1" Respiratory Rate: 20 bpm SpO2: 97% Tempera ture: 37.0 (C) / 98.6 (F) Weight: 254 lbs 06/20/2016 Blood Pressure 1: 122/74 Code: 8480-6 BMI: 35.2 Code: 92346-9 Heart Rate 1: 80 bpm Height: 6'1" Respiratory Rate: 20 bpm SpO2: 97% Tempera ture: 36.9 (C) / 98.5 (F) Weight: 267 lbs 02/16/2016 Blood Pressure 1: 136/82 Code: 8480-6 BMI: 36.4 Code: 49273-9 Heart Rate 1: 66 bpm Height: 6'1" Respiratory Rate: 18 bpm SpO2: 96% Tempera ture: 36.4 (C) / 97.6 (F) Weight: 276 lbs 12/03/2015 Blood Pressure 1: 122/86 Code: 8480-6 BMI: 39.2 Code: 96253-3 Heart Rate 1: 76 bpm Height: 6' Respiratory Rate: 20 bpm Temperature: 37 .1 (C) / 98.7 (F) Weight: 289 lbs 06/24/2015 Blood Pressure 1: 136/84 Code: 8480-6 BMI: 40.7 Code: 59891-7 Heart Rate 1: 84 bpm Height: 6' Respiratory Rate: 20 bpm Temperature: 36 .9 (C) / 98.4 (F) Weight: 300 lbs 06/11/2015 Blood Pressure 1: 160/82 Code: 8480-6 BMI: 40.4 Code: 58921-3 Heart Rate 1: 82 bpm Height: 6' Respiratory Rate: 22 bpm Temperature: 36 .5 (C) / 97.7 (F) Weight: 298 lbs 07/17/2014 Blood Pressure 1: 132/84 Code: 8480-6 BMI: 41.0 Code: 66951-8 Heart Rate 1: 76 bpm Height: 6'1" Respiratory Rate: 20 bpm Temperature: 36 .9 (C) / 98.4 (F) Weight: 311 lbs 10/31/2013 Blood Pressure 1: 132/80 Code: 8480-6 BMI: 41.2 Code: 82261-1 Heart Rate 1: 84 bpm Height: 6'1" Respiratory Rate: 22 bpm Temperature: 36 .1 (C) / 97.0 (F) Weight: 312 lbs 08/01/2013 Blood Pressure 1: 142/86 Code: 8480-6 BMI: 42.4 Code: 80114-1 Heart Rate 1: 84 bpm Height: 6' [...] 1: 156/108 Code: 8480-6 BMI: 41.9 Code: 18483-8 Heart Rate 1: 92 bpm Height: 6' Respiratory Rate: 20 bpm Temperature: 36 .9 (C) / 98.4 (F) Weight: 309 lbs 02/27/2013 Blood Pressure 1: 162/114 Code: 8480-6 BMI: 41.0 Code: 86398-0 Heart Rate 1: 84 bpm Height: 6' Respiratory Rate: 20 bpm Temperature: 36 .7 (C) / 98.0 (F) Weight: 302 lbs 01/01/2013 Blood Pressure 1: 138/86 Code: 8480-6 BMI: 41.0 Code: 59306-9 Heart Rate 1: 76 bpm Height: 6' Respiratory Rate: 20 bpm Temperature: 36 .7 (C) / 98.0 (F) Weight: 302 lbs 11/27/2012 Blood Pressure 1: 136/92 Code: 8480-6 BMI: 41.2 Code: 00176-3 Heart Rate 1: 80 bpm Height: 6' Respiratory Rate: 20 bpm Temperature: 36 .6 (C) / 97.8 (F) Weight: 304 lbs 08/28/2012 Blood Pressure 1: 126/80 Code: 8480-6 BMI: 41.8 Code: 69418-0 Heart Rate 1: 80 bpm Height: 6' Respiratory Rate: 20 bpm Temperature: 36 .4 (C) / 97.6 (F) Weight: 308 lbs 07/03/2012 Blood Pressure 1: 114/80 Code: 8480-6 BMI: 42.3 Code: 07371-3 Heart Rate 1: 72 bpm Height: 6' Respiratory Rate: 20 bpm Temperature: 36 .6 (C) / 97.9 (F) Weight: 312 lbs 06/21/2012 Blood Pressure 1: 152/100 Code: 8480-6 BMI: 43.3 Code: 70514-7 Heart Rate 1: 72 bpm Height: 6' Temperature: 36.8 (C) / 98.2 (F) Weight: 319 lbs 05/30/2012 Blood Pressure 1: 122/78 Code: 8480-6 BMI: 43.0 Code: 44298-1 Heart Rate 1: 72 bpm Height: 6' Respiratory Rate: 20 bpm Temperature: 36 .7 (C) / 98.0 (F) Weight: 317 lbs 05/21/2012 Blood Pressure 1: 126/94 Code: 8480-6 BMI: 44.2 Code: 98727-2 Heart Rate 1: 92 bpm Height: 6' Respiratory Rate: 20 bpm Temperature: 36 .6 (C) / 97.9 (F) Weight: 326 lbs 01/24/2012 Blood Pressure 1: 122/90 Code: 8480-6 BMI: 44.5 Code: 39304-5 Heart Rate 1: 76 bpm Height: 6' Respiratory Rate: 20 bpm Temperature: 36 .8 (C) / 98.2 (F) Weight: 328 lbs 09/21/2011 Blood Pressure 1: 116/80 Code: 8480-6 BMI: 44.1 Code: 68533-2 Heart Rate 1: 92 bpm Height: 6' Respiratory Rate: 20 bpm Temperature: 36 .7 (C) / 98.1 (F) Weight: 325 lbs 09/12/2011 Blood Pressure 1: 166/110 Code: 8480-6 BMI: 45.0 Code: 17655-8 Heart Rate 1: 80 bpm Height: 6' Respiratory Rate: 20 bpm Temperature: 36 .5 (C) / 97.7 (F) Weight: 332 lbs 06/14/2011 Blood Pressure 1: 142/84 Code: 8480-6 BMI: 45.6 Code: 83568-7 Heart Rate 1: 104 bpm Height: 6' Respiratory Rate: 20 bpm Temperature: 36 .4 (C) / 97.5 (F) Weight: 336 lbs 03/03/2011 Blood Pressure 1: 130/96 Code: 8480-6 Heart Rate 1: 86 bpm Temperature: 36.1 (C) / 97.0 (F) Weight: 327 lbs 01/27/2011 Blood Pressure 1: 142/96 Code: 8480-6 BMI: 42.0 Code: 53985-2 Heart Rate 1: 72 bpm Height: 6'2" [...] diabetes mellitus 06/21/2012 follow up 05/30/2012 hospital fw vision change 05/21/2012 follow up 01/24/2012 4mo [...] Diagnosis: Right lower quadrant pain[ICD10: R10.31] Galina Chance Suo Yi CPT-4: 22474 05/20/2019 ([id number]) OFFICE/OUTPATIENT VISIT EST Diagnosis: Essential (primary) hypertension[ICD10: I10] Diagnosis: 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, 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] Diagnosis: Kidney transplant status[ICD10: Z94.0] Diagnosis: Chronic kidney disease, stage 3 (moderate)[ICD10: N18.3] Diagnosis: Mixed hyperlipidemia[ICD10: E78.2] Galina Chance Suo Yi CPT-4: 49438 02/26/2019 ([id number]) NURSE/OUTPATIENT VISIT EST Diagnosis: 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, 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] Diagnosis: Essential (primary) hypertension[ICD10: I10] Diagnosis: Other specified hypothyroidism[ICD10: E03.8] Diagnosis: Mixed hyperlipidemia[ICD10: E78.2] Galina SMITH [facility] CPT-4: 15580 02/19/2019 ([id number]) NURSE/OUTPATIENT VISIT EST Diagnosis: Kidney transplant status[ICD10: Z94.0] 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] Diagnosis: Other intermediate manager (current) drug therapy[ICD10: Z79.899] Diagnosis: Encounter for aftercare following other organ transplant[ICD10: Z48.298] Diagnosis: Mixed hyperlipidemia[ICD10: E78.2] Galina WARREN Clar[employer]Karol SMITH [facility] CPT-4: 86936 08/24/2018 ([id number]) NURSE/OUTPATIENT VISIT EST Diagnosis: Type 2 diabetes mellitus with diabetic neuropathy, unspecified[ICD10: E11.40] Diagnosis: Type 2 diabetes mellitus with hyperglycemia[ICD10: E11.65] 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] Diagnosis: Essential (primary) hypertension[ICD10: I10] Galina [facility] CPT-4: 52707 06/29/2018 ([id number]) OFFICE/OUTPATIENT VISIT EST Diagnosis: Slow transit constipation[ICD10: K59.01] Diagnosis: Epigastric pain[ICD10: R10.13] Diagnosis: Type 2 diabetes mellitus with hyperglycemia[ICD10: E11.65] Coleen SMITH [facility] CPT-4: 45288 06/26/2018 ([id number]) OFFICE/OUTPATIENT VISIT EST Diagnosis: Right lower quadrant pain[ICD10: R10.31] Diagnosis: Type 2 diabetes mellitus with diabetic neuropathy, unspecified[ICD10: E11.40] Coleen SMITH [facility] CPT-4: 09375 ([id number]) OFFICE/OUTPATIENT VISIT EST Diagnosis: Type 2 diabetes mellitus with hyperglycemia[ICD10: E11.65] Diagnosis: Mixed hyperlipidemia[ICD10: E78.2] Diagnosis: Essential (primary) hypertension[ICD10: I10] Coleen SMITH 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 CPT-4: 60575 04/05/2017 ([id number]) OFFICE/OUTPATIENT VISIT EST Diagnosis: 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, 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] Diagnosis: Mixed hyperlipidemia[ICD10: E78.2] Diagnosis: Essential (primary) hypertension[ICD10: I10] [facility] 46495 06/20/2016 ([id number]) OFFICE/OUTPATIENT VISIT EST Diagnosis: Urinary tract infection, site not specified[ICD10: N39.0] Missy SMITH [facility] CPT-4: 77521 02/16/2016 ([id number]) OFFICE/OUTPATIENT VISIT EST Diagnosis: Type 2 diabetes mellitus with hyperglycemia[ICD10: E11.65] Diagnosis: Cramp and spasm[ICD10: R25.2] Diagnosis: Hematuria, unspecified[ICD10: R31.9] [facility]: 68520 12/03/2015 OFFICE/OUTPATIENT VISIT EST Diagnosis: Type 2 diabetes mellitus with diabetic neuropathy, unspecified[ICD10: E11.40] Alejandra Billy [facility]: 40573 06/24/2015 ([id number]) OFFICE/OUTPATIENT VISIT EST Diagnosis: Acute sinusitis, unspecified[ICD10: J01.90] Diagnosis: Otitis media, unspecified, bilateral[ICD10: H66.93] Galina DENNISONQUELINE SusuKarol [facility]IS [facility] CPT-4: 91738 06/11/2015 ([id number]) OFFICE/OUTPATIENT VISIT EST Diagnosis: 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[ICD9: 250.01] Diagnosis: HYPERTENSION[ICD9: 401.9] Diagnosis: HYPERLIPIDEMIA NEC/NOS[ICD9: 272.4] Diagnosis: KIDNEY TRANSPLANT STATUS[ICD9: V42.0] Galina KERN SusuKarol [facility] CPT-4: 55163 07/17/2014 ([id number]) OFFICE/OUTPATIENT VISIT EST Diagnosis: 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[ICD9: 250.01] Diagnosis: HYPERTENSION[ICD9: 401.9] Galina Luis DENNISONQUELINE SusuKarol ROD [facility] CPT-4: 71539 10/31/2013 ([id number]) OFFICE/OUTPATIENT VISIT EST Diagnosis: 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I[ICD9: 250.00] Diagnosis: HYPERTENSION[ICD9: 401.9] Diagnosis: HYPERLIPIDEMIA NEC/NOS[ICD9: 272.4] Galina GE SKarol LUIS [employer] CPT-4: 72276 08/01/2013 OFFICE/OUTPATIENT VISIT EST Diagnosis: HEMATURIA NOS[ICD9: 599.70] Diagnosis: Abdominal pain, acute, right lower quadrant[ICD9: 789.03] Diagnosis: KIDNEY TRANSPLANT STATUS[ICD9: V42.0] Alejandra KERN SusuKarol [facility] CPT-4: 02482 07/30/2013 ([id number]) OFFICE/OUTPATIENT VISIT EST Diagnosis: Uncontrolled hypertension[ICD9: 401.9] Diagnosis: BRIEF DEPRESSIVE REACT[ICD9: 309.0] Galina GE SKarol LUIS [employer] CPT-4: 07383 05/30/2013 ([id number]) OFFICE/OUTPATIENT VISIT EST Diagnosis: HYPERTENSION[ICD9: 401.9] Diagnosis: Anticipatory grieving[ICD9: 309.0] Galina WARREN SusuKarol [facility]RA[facility] [employer] CPT-4: 28054 04/29/2013 ([id number]) OFFICE/OUTPATIENT VISIT EST Diagnosis: 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I, UNCONTROLLED[ICD9: 250.02] Diagnosis: HYPERTENSION[ICD9: 401.9] Diagnosis: HYPOTHYROIDISM[ICD9: 244.9] Diagnosis: KIDNEY TRANSPLANT STATUS[ICD9: V42.0] Galina Rodmateus THRASHER ERLIN [facility] CPT-[facility]: 93482 02/27/2013 OFFICE/OUTPATIENT VISIT EST Diagnosis: Paronychia[ICD9: 681.9] Diagnosis: ONYCHOMYCOSIS[ICD9: 110.1] Viky Chance [facility] C[facility]: 38214 01/01/2013 ([id number]) OFFICE/OUTPATIENT VISIT EST Diagnosis: 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I, UNCONTROLLED[ICD9: 250.02] Diagnosis: HYPERLIPIDEMIA NEC/NOS[ICD9: 272.4] Diagnosis: HYPERTENSION[ICD9: 401.9] Diagnosis: KIDNEY TRANSPLANT STATUS[ICD9: V42.0] Diagnosis: HYPOTHYROIDISM[ICD9: 244.9] Galina ASENCIO SusuKarol O [facility] CPT-4: 53131 11/27/2012 ([id number]) OFFICE/OUTPATIENT VISIT EST Diagnosis: 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I[ICD9: 250.00] Diagnosis: HYPOTHYROIDISM[ICD9: 244.9] Diagnosis: HYPERLIPIDEMIA NEC/NOS[ICD9: 272.4] Diagnosis: HYPERTENSION[ICD9: 401.9] Galina Chance [facility] CPT-4: 50803 08/28/2012 ([id number]) OFFICE/OUTPATIENT VISIT EST Diagnosis: HYPOTHYROIDISM[ICD9: 244.9] Diagnosis: 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I, UNCONTROLLED[ICD9: 250.02] Diagnosis: HYPERLIPIDEMIA NEC/NOS[ICD9: 272.4] Diagnosis: KIDNEY TRANSPLANT STATUS[ICD9: V42.0] Diagnosis: HYPERTENSION[ICD9: 401.9] Galina Chance [facility] CPT-4: 10126 08/20/2012 OFFICE/OUTPATIENT VISIT EST Diagnosis: 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I, UNCONTROLLED[ICD9: 250.02] Diagnosis: HYPERTENSION[ICD9: 401.9] Galina Chance [facility] CPT-4: 58025 07/03/2012 OFFICE/OUTPATIENT VISIT EST Diagnosis: 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I, UNCONTROLLED[ICD9: 250.02] Diagnosis: HYPERTENSION[ICD9: 401.9] Galina [facility] CPT-4: 47529 06/21/2012 OFFICE/OUTPATIENT VISIT EST Diagnosis: 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I, UNCONTROLLED[ICD9: 250.02] Diagnosis: HYPERTENSION[ICD9: 401.9] Diagnosis: HYPERLIPIDEMIA NEC/NOS[ICD9: 272.4] Diagnosis: KIDNEY TRANSPLANT STATUS[ICD9: V42.0] [facility] 92786 05/30/2012 ([id number]) OFFICE/OUTPATIENT VISIT EST Diagnosis: HYPERTENSION[ICD9: 401.9] Diagnosis: VISUAL DISTURBANCE[ICD9: 368.9] [facility] 62685 05/21/2012 ([id number]) OFFICE/OUTPATIENT VISIT EST Diagnosis: HYPERTENSION[ICD9: 401.9] Diagnosis: HYPOTHYROIDISM[ICD9: 244.9] Diagnosis: KIDNEY TRANSPLANT STATUS[ICD9: V42.0] [facility]: 05984 01/24/2012 OFFICE/OUTPATIENT VISIT EST Diagnosis: DIZZINESS/VERTIGO[ICD9: 780.4] Diagnosis: HYPERTENSION[ICD9: 401.9] [facility] CPT[facility]: 67858 09/21/2011 ([id number]) OFFICE/OUTPATIENT VISIT EST Diagnosis: HYPERTENSION[ICD9: 401.9] Diagnosis: HYPOTHYROIDISM[ICD9: 244.9] Diagnosis: HYPERLIPIDEMIA NEC/NOS[ICD9: 272.4] Diagnosis: KIDNEY TRANSPLANT STATUS[ICD9: V42.0] [facility] 17095 09/12/2011 OFFICE/OUTPATIENT VISIT EST Diagnosis: HYPOTHYROIDISM[ICD9: 244.9] Diagnosis: HYPERTENSION[ICD9: 401.9] Diagnosis: CEPHALGIA[ICD9: 784.0] Galina Augustine DO [facility] CPT-4: 96509 06/14/2011 OFFICE/OUTPATIENT VISIT EST Diagnosis: HYPERTENSION[ICD9: 401.9] Diagnosis: PHARYNGITIS, ACUTE[ICD9: 462] Diagnosis: HYPOTHYROIDISM[ICD9: 244.9] Galina DENNISONQUEMARINO RIVAS DO [facility] CPT-4: 30645 03/03/2011 OFFICE/OUTPATIENT VISIT EST Diagnosis: HYPOTHYROIDISM[ICD9: 244.9] Diagnosis: KIDNEY TRANSPLANT STATUS[ICD9: V42.0] Diagnosis: HYPERTENSION[ICD9: 401.9] Diagnosis: SINUSITIS, ACUTE[ICD9: 461.9] Galina SMITH [facility] CPT-4: 13064 01/27/2011 ([id number]) OFFICE/OUTPATIENT VISIT EST Galinamarino MCCLELLNA SKarol BERNAL Noxilizer [facility] CPT-4: 17153 12/02/2010 Plan of Care Planned Activity Notes Codes Status Date Visit Diagnosis Plan: Right lower quadrant pain Discus sal: Check Stat UA, CBC, ESR, CMP Stay NPO If WBC or ESR elevated will need to proceed with CT scan of abdomen/pelvis ICD-9 : 789.03 ICD-10 : R10.31 05/20/2019 Appointment: Galina Smith WPtel: [id number] [facility] ILLNESS 05/20/2019 Visit Diagnosis Plan: 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, UNCO NTROLLED Discussion: Check HbA1C ICD-9 : 250.03 ICD-10 : E10.9 02/26/2019 Visit Diagnosis Plan: Essential (primary) hypertension Discussion: Noncompliant Start amlodopine 5mg daily ICD-9 : 401.9 ICD-10 : I10 02/26/2019 Visit Diagnosis Plan: Mixed hyperlipidemia Discussion: Start atorvastatin 80mg daily ICD-9 : 272.4 ICD-10 : E78.2 02/26/2019 Appointment: Galina Smith [facility]el[facility] [phone] [id number] FO[facility] UP 02/26/2019 Patient Education: atorvastatin- Optimize[employer] Coupon [phone] [email or web address] Completed 02/26/2019 Appointment: Galina Smith WPtel: [address] [place] [address] LAB 02/19/2019 Appointment: Coleen Frey [address] [place] [address] had 2 flat tires this morning. NO SHOW - FORGIVE N 02/19/2019 Appointment: Galina Smith WPtel: [address] [place] [address] LAB 08/24/2018 Appointment: Galina Smith WPtel: [address] [place] [address] LAB 06/29/2018 Visit Diagnosis Plan: Epigastric pain [...] he had labs done in dec at [facility]. will obtain lab results and order additional labs as needed. ICD-9 : 250.02 ICD-10 : E11.65 06/26/2018 Appointment: Coleen Frey [address] [place] [address] ACUTE ILLNESS 06/26/2018 Visit Diagnosis Plan: Type 2 diabetes me llitus with diabetic neuropathy, unspecified Discussion: cmp, microalbumin, and a1c o rdered to be completed today. ICD-9 : 250.60 ICD-10 : E11.40 02/06/2018 Visit Diagnosis Plan: Right lower quadrant pain [...] ICD-9 : 789.03 ICD-10 : R10.31 02/06/2018 Appointment: Coleen Frey [address] [place], [place] [phone] ACUTE ILLNESS 02/06/2018 Patient Education: Patient Medication [...] ICD-10 : I10 11/02/2017 Appointment: Coleen Frey [address] [place], [place] [phone] FOLLOW UP 11/02/2017 Patient Education: Patient Medication [...] E11.59 07/27/2017 Visit Diagnosis Plan: Encounter for [facility] adult medical examination with abnormal findings Discussion: patient deferred influenza v accine at this time, received tdap shot. routine labs performed earlier today so will obtain results from gabriel osorio. ICD-9 : V70.0 ICD-10 : Z00.01 07/27/2017 Appointment: Coleen Frey [address] [place], [place] [phone] Annual Well Visit 07/27/2017 Patient Education: Patient Medication Summary Completed 07/27/2017 Visit Diagnosis Plan: Tinea pedis Discussion: nystatin ointment ordered to be placed on foot bid for 10 days. instructed to keep feet clean and dry. ICD-9 : 110.4 ICD-10 : B35.3 04/05/2017 Visit Diagnosis Plan: Type 2 diabetes me [...] ICD-9 : 250.80 ICD-10 : E11.59 04/05/2017 Appointment: [facility]rey [address] [facility] FO[facility] 04/05/2017 Patient Education: Patient Medication Summary Completed 04/05/2017 Patient Education: Patient Medication Summary Completed 04/05/2017 Care Plan: CBC Pending 04/05/2017 Care Plan: LIPID PANEL LOINC : 20313-3 Pending 04/05/2017 Care Plan: COM[place] : 66455-5 Pending 04/05/2017 Visit Plan: Patient admits that [...] scale given 06/20/2016 Appointment: Galina Smith WPtel: [phone] [id number] [place] 06/16 lm-sp 06/20 lm ~sl FOLLOW UP 06/20/2016 Patient Education: Patient Medication Summary Completed 06/20/2016 Patient Education: Patient Medication Summary Completed 05/04/2016 Care Plan: COMPREH[place]AB[place] : 26689-5 Pending 05/04/2016 Care Plan: CBC Pending 05/04/2016 Care Plan: LIPID PANEL LOINC : 42021-3 Pending 05/04/2016 Care Plan: A1C HPLC LOINC : 70135-9 Pending 05/04/2016 Visit Plan: Discussed with Dr Luis stephens as above while awaiting specialist to return his call Push fluids Follow up celine if not improving 02/16/2016 Appointment: Missy Dc [address] [place] [address] ACUTE ILLNESS 02/16/2016 Patient Education: Patient Medication Summary Completed 02/16/2016 Visit Plan: Check CMP, TSH, HbA1C, magne sium, UA now Hydrate and monitor blood sugar Use powerade zero in conjunction with water to stay hydrated Discussed elevated blood sugar can cause cramping as well 12/03/2015 Appointment: Galina Smith WPtel: [address] [place] [address] ACUTE ILLNESS 12/03/2015 Patient Education: Patient Medication Summary Completed 12/03/2015 Visit Plan: Labs completed this am in [facility] but do not have results yet. Start Lyrica 75mg PO bid Will Call in a week and let know if pain is improved. 06/24/2015 Appointment: Alejandra Billy WPtel: [address] [place] [address] ACUTE ILLNESS 06/24/2015 Patient Education: Patient Medication Summary Completed 06/24/2015 Patient Education: Lyrica - 18+ - No MA NE Completed 06/24/2015 Visit Plan: Saline nasal flushes prn. Ty lenol/Motrin prn headache. Notify if persists/symptoms worsening. Obtain most recent lab Warned of increased BS with prednisone--has sliding scale to use 06/11/2015 Appointment: Galina Smith WPtel: [address] [place] [address] 06/10/15 vm cn....06/10/15 appt confirmed cn Cara ual Well Visit 06/11/2015 Patient Education: Patient Medication Summary Completed 06/11/2015 Appointment: Galina Smith WPtel: [address] [place] [address] FOLLOW UP 10/15/2014 Patient Education: Patient Medication Summary Completed 09/03/2014 Care Plan: COMPREH[place] : 65[address]-9 Ordered 09/03/2014 Visit Plan: Obtain most recent lab resul ts Will likely need HbA1C and Lipids if were not done Accuchecks q AC and HS 07/17/2014 Appointment: Galina Smith WPtel: [address] [place] [address] FOLLOW UP 07/17/2014 Patient Education: Patient Medication Summary Completed 07/17/2014 Appointment: Galina Smith WPtel: [address] [place] [address] 01/29 01/30 NO SHOW FOLLOW UP 01/30/2014 Visit Plan: Check CMP, HbA1C, CBC, Lipid s Pt sees transplant doctor next month Pt is currently just using insulin prn and monitering BS 10/31/2013 Appointment: Galina Smith WPtel: [address] [place] [address] FOLLOW UP 10/31/2013 Patient Education: Patient Medication Summary Completed 10/31/2013 Visit Plan: Continue current meds and ac uchecks 08/01/2013 Appointment: Galina Smith WPtel: [address] [place], [place] [phone] 07/31 VM FOLLOW UP 08/01/2013 Patient Education: Patient Medication Summary Completed 08/01/2013 Appointment: Alejandra Billy WPtel: [address] [place] [address] ACUTE ILLNESS 07/30/2013 Patient Education: Patient Medication Summary Completed 07/30/2013 Visit Plan: Restart Diovan--pt says need s PA Continue fluoxetine at 20mg daily 05/30/2013 Appointment: Galina Smith WPtel: [address] [place], [place] [phone] FOLLOW UP 05/30/2013 Patient Education: Patient Medication Summary Completed 05/30/2013 Appointment: Galina Smith WPtel: [address] [place], [place] [phone] [place] has appt following day FOLLOW UP 3 Visit Plan: Restart Diovan and Amlodopin e as has been out--new rx sent out Trial of Fluoxetine 20mg q AM Stress [employer]ucers 04/29/2013 Appointment: Galina Smith WPtel: [address] [place] [address] 04/26 MOM made appt. confirmed monday ACUTE ILL NESS 04/29/2013 Patient Education: Patient Medication Summary Completed 04/29/2013 Visit Plan: Continue current meds and ac cuchecks Pt going for fasting lab next month 02/27/2013 Appointment: Galina Smith WPtel: [address] [place], [place] [phone] FOLLOW UP 02/27/2013 Patient Education: Patient Medication Summary Completed 02/27/2013 Appointment: Viky Acosta WPtel: [address] [place], [place] [phone] ACUTE ILLNESS 01/01/2013 Patient Education: Patient Medication Summary Completed 01/01/2013 Visit Plan: Continue current meds Check fasting lab next week 11/27/2012 Appointment: Galina Smith WPtel: [address] [place], [place] [phone] FOLLOW UP 11/27/2012 Patient Education: Patient Medication Summary Completed 11/27/2012 Visit Plan: Lab discussed Continue curre nt meds and accuchecks Pt sees transplant doctor in in October Check fasting lab and fwup in 3mos 08/28/2012 Appointment: Galina Smith WPtel: [address] [place], [place] [phone] 08/27 FOLLOW UP 08/28/2012 Patient Education: Patient Medication Summary Completed 08/28/2012 Appointment: Galina Smith WPtel: [address] [place], [place] [phone] [facility] 08/20/2012 Patient Education: Patient Medication Summary Completed 08/20/2012 Visit Plan: Continue levemir at current dose with accuchecks Use apidra with sliding scale Check Chem 7 and HbA1C in 2mos 07/03/2012 Appointment: Galina Smith WPtel: [address] [place], [place] [phone] 07/02 FOLLOW UP 07/03/2012 Patient Education: Patient [...] 320mg daily 06/21/2012 Appointment: Galina Smith WPtel: [address] [place], [place] [phone] ACUTE ILLNESS 06/21/2012 Patient Education: Patient Medication Summary Completed 06/21/2012 Visit Plan: Increase Levemir to 75 u sc q PM Continue sliding scale insulin with accuchecks q AC and HS Call in 1wk with BS readings 05/30/2012 Appointment: Galina Smith WPtel: [address] [place], [place] [phone] [place] [address] Follow Up 05/30/2012 Patient Education: Patient Medication Summary Completed 05/30/2012 Appointment: Galina Smith WPtel: [address] [place], [place] [phone] 05/21 - cancelled appointment for 05/22 because PT was worke d in on 05/21 FOLLOW UP 05/22/2012 Appointment: Galina Smith WPtel: [address] [place], [place] [phone] WORK IN 05/21/2012 Appointment: Galina Smith WPtel: [address] [place] [address] [place] LAB 05/21/2012 Patient Education: Patient Medication Summary Completed 05/21/2012 Visit Plan: Continue current meds Obtain most recent lab done at [facility] 01/24/2012 Appointment: Galina Smith WPtel: [address] [place] [address] voicemail FOLLOW UP 01/24/2012 Patient Education: Patient Medication Summary Completed 01/24/2012 Visit Plan: Decrease Norvasc to 2.5mg da anne marie Check CBC, CMP, TSH, Free T4 09/21/2011 Appointment: Galina Smith WPtel: [address] [place] [address] ACUTE ILLNESS 09/21/2011 Patient Education: Patient Medication Summary Completed 09/21/2011 Visit Plan: Continue Diovan at current d ose Add amlodopine Check Lipids/LFTs with next lab 09/12/2011 Appointment: Galina Smith WPtel: [address] [place] [address] FOLLOW UP 09/12/2011 Patient Education: Patient Medication Summary Completed 09/12/2011 Visit Plan: Increase Diovan to 320mg po daily Check TSH and Free T4 with kidney lab next week 06/14/2011 Appointment: Galina Smith WPtel: [address] [place] [address] FOLLOW UP 06/14/2011 Patient Education: Patient Medication Summary Completed 06/14/2011 Visit Plan: Z-pack then new toothebrush Start Diovan 03/03/2011 Appointment: Galina Smith WPtel: [address] [place] [address] ACUTE ILLNESS 03/03/2011 Patient Education: Patient Medication Summary Completed 03/03/2011 Appointment: Galina Smith WPtel: [address] [place], [place] [phone] [place] FOLLOW UP 01/27/2011 Patient Education: Patient Medication Summary Completed 01/27/2011 Visit Plan: Continue current meds and pr oceed with lab per kidney transplant doctor Start Synthroid at 50mcg po daily 12/02/2010 Appointment: Gal[facility] Smith [facility]el[facility] [id number] FO[facility] UP 12/02/2010 Patient Education: Patient Medication Summary Completed 12/02/2010 Appointment: Galina Smith WPtel: [phone] [facility] Suture Removal 10/20/2009 Patient Education: Patient Medication Summary Completed 10/20/2009 Referral: Rudolph Núñez WPtel: [address] [id number] [place] Referral Initiated Instructions Comment . Patient [...] well . Labs completed this am in [facility] do not have results yet. Start Lyrica [...] . Restart Diovan and Amlodopine as has loki castaneda out--new rx sent out Trial of Fluoxetine [...] meds Obtain most recent lab done at [facility] . Decrease Norvasc to 2.5mg daily Check [...]
--- OUTSIDE RECORDS SUMMARY | 2019-08-21 00:09 | XMS REPORT | CCD ---
Author Author Cuauhtemoc Smith D.O. Organization [facility] Address [address] [place] [address] Phone Care Team Providers Care Soil Conservationist Name Role Phone [facility] D.O., PP Unavailable CCM Unavailable Summary Purpose Interface Exchange Insurance Providers Payer name Policy type / Coverage type Covered alliance party ID Effective Begin Date Effective End Date Blue Cross Blue Shield Blue Cross/Blue Shield [id number] 2017 Unknown Family History Family History data not found Social History Social History Element Codes Description Effective Dates Tobacco history SNOMED CT: [id number] Currently uses smokeless to bacco 06/14/2011 Allergies, [...] ICD-9: V58.44 ICD-10: Z48.298 08/24/2018 Active Other shelter (current) drug therapy ICD-9: V58.69 ICD-10: Z79.899 [...] Fill Instructions cephalexin 500 mg capsule RxNorm: 232162 1 Capsule(s) Oral thre e times a day 05/20/2019 05/26/2019 Active Prograf 0.5 mg capsule RxNorm: 191800 4 Capsule(s) Oral two skinny es a day 05/20/2019 No Stop Date Active pantoprazole 40 mg tablet,delayed release RxNorm: 945460 1 Tablet(s) Oral QD for stomach 05/20/2019 09/17/2019 Active CellCept 500 mg tablet RxNorm: 043880 2 Tablet(s) Oral two time s a day 05/20/2019 No Stop Date Active cephalexin 500 mg capsule RxNorm: 282040 1 Capsule(s) Oral thre e times a day 05/20/2019 05/19/2019 Inactive Levemir FlexTouch U-100 Insulin 100 unit/mL (3 mL) sub cutaneous pen RxNorm: 968739 INJECT 90 UNITS SUBCUTANEOUSLY TWICE DAILY 05/11/[address] op Date Active Levemir FlexTouch U-100 Insulin 100 unit/mL (3 mL) sub cutaneous pen RxNorm: 628375 100 Unit(s) Subcutaneous two times a day 03/04/2019 06/02/2019 Active Levemir FlexTouch U-100 Insulin 100 unit/mL (3 mL) sub cutaneous pen RxNorm: 578547 90 Unit(s) SQ BID 100 Unit(s) Subcutaneous two times a day 0 03/04/2019 03/04/2019 Inactive amlodipine 5 mg tablet RxNorm: 694323 1 Tablet(s) PO QD for BP 02/1008/24/2019 Active atorvastatin 80 mg tablet RxNorm: 022497 1 Tablet(s) PO QD 02/27/2005/26/2019 Active Novolog Flexpen U-100 Insulin aspart 100 unit/mL (3 mL ) subcutaneous RxNorm: 8844735 INJECT SUBCUTANEOUSLY NEEDED PER SLIDING SCALE 02/22/2019 No Stop Date Active Levemir FlexTouch U-100 Insulin 100 unit/mL (3 mL) sub cutaneous pen RxNorm: 740281 90 Unit(s) SQ BID 01/08/2019 03/03/2019 Inactive Levemir FlexTouch U-100 Insulin 100 unit/mL (3 mL) sub cutaneous pen RxNorm: 378303 90 Unit(s) SQ BID 12/04/2018 12/03/2018 Inactive Levemir FlexTouch U-100 Insulin 100 unit/mL (3 mL) sub cutaneous pen RxNorm: 141423 90 Unit(s) SQ BID 12/04/2018 01/07/2019 Inactive Levemir FlexTouch U-100 Insulin 100 unit/mL (3 mL) sub cutaneous pen RxNorm: 566432 70 Unit(s) SQ BID 10/26/2018 12/04/2018 Inactive Levemir FlexTouch U-100 Insulin 100 unit/mL (3 mL) sub cutaneous pen RxNorm: 182525 GIVE 90 UNITS SUBCUTANEOUSLY TWICE DAILY 10/08/2018 10/26/2018 Inactive Levemir FlexTouch U-100 Insulin 100 unit/mL (3 mL) sub cutaneous pen RxNorm: 104220 90 Unit(s) SQ BID 07/30/2018 10/07/2018 Inactive Levemir FlexTouch U-100 Insulin 100 unit/mL (3 mL) sub cutaneous pen RxNorm: 189480 90 Unit(s) SQ BID 07/06/2018 07/29/2018 Inactive Pen Needle 31 gauge x 5/16" RxNorm: USE DIRECTED 03/21/2018 No Stop Date Active Levemir FlexTouch U-100 Insulin 100 unit/mL (3 mL) sub cutaneous pen RxNorm: 791937 80 Unit(s) SQ BID 02/15/2018 07/06/2018 Inactive Levemir FlexTouch U-100 Insulin 100 unit/mL (3 mL) sub cutaneous pen RxNorm: 896332 INJECT 105 UNITS SUBCUTANEOUSLY IN THE EVENING 01/24/2018 0 02/15/2018 Inactive Levemir FlexTouch U-100 Insulin 100 unit/mL (3 mL) sub cutaneous pen RxNorm: 609121 INJECT 105 UNITS SUBCUTANEOUSLY IN THE EVENING 12/26/2017 0 01/23/2018 Inactive Novolog Flexpen U-100 Insulin aspart 100 unit/mL (3 mL ) subcutaneous RxNorm: 0776127 INJECT SUBCUTANEOUSLY NEEDED PER SLIDING SCALE 12/25/2017 02/21/2019 Inactive Levemir FlexTouch U-100 Insulin 100 unit/mL (3 mL) sub cutaneous pen RxNorm: 758222 70 Unit(s) SQ BID 11/03/2017 11/03/2017 Inactive Levemir FlexTouch U-100 Insulin 100 unit/mL (3 mL) sub cutaneous pen RxNorm: 894294 105 Unit(s) SQ QPM 11/02/2017 11/02/2017 Inactive Levemir FlexTouch U-100 Insulin 100 unit/mL (3 mL) sub cutaneous pen RxNorm: 437048 105 Unit(s) SQ QPM Needs updated labs 11/01/2017 11/01/2017 [place] [facility] Levemir FlexTouch U-100 Insulin 100 unit/mL (3 mL) sub cutaneous pen RxNorm: 521959 Unit(s) 105 Unit(s) SQ QPM 09/18/2017 09/18/2017 Inactive Levemir FlexTouch U-100 Insulin 100 unit/mL (3 mL) sub cutaneous pen RxNorm: 924953 105 Unit(s) SQ QPM 08/07/2017 09/18/2017 Inactive cephalexin 500 mg capsule RxNorm: 747813 1 Capsule(s) PO BID 201708/02/2017 Inactive Levemir FlexTouch U-100 Insulin 100 unit/mL (3 mL) sub cutaneous pen RxNorm: 204371 105 Unit(s) SQ QPM 06/07/2017 06/07/2017 Inactive Levemir FlexTouch 100 unit/mL (3 mL) subcutaneous insulin pe n RxNorm: 007207 105 Unit(s) SQ QPM 05/11/2017 06/07/2017 Inactive Lipitor 40 mg tablet RxNorm: 038150 1 Tablet(s) PO QD 04/05/201703/13 Inactive nystatin 100,000 unit/gram topical ointment RxNorm: 234686 1 Gr am(s) TOP BID 04/05/2017 05/02/2017 Inactive Lipitor 40 mg tablet RxNorm: 984095 1.5 Tablet(s) PO QD 04/05/2017 Inactive Diovan 320 mg tablet RxNorm: 806829 1 Tablet(s) PO QD 04/05/201702/10 Inactive Levemir FlexTouch 100 unit/mL (3 mL) subcutaneous insulin pe n RxNorm: 851913 105 Unit(s) SQ QPM 04/05/2017 04/05/2017 Inactive Levemir FlexTouch 100 unit/mL (3 mL) subcutaneous insulin pe n RxNorm: 691455 90 Unit(s) SQ QPM LAST REFILL UNTIL LABS AND APPOINTMENT!!!! 04/05/2017 Inactive Novolog Flexpen 100 unit/mL subcutaneous RxNorm: 9240514 Unit(s) INJECT SUBCUTANEOUSLY NEEDED PER SLIDING SCALE---NEEDS UPDATED LABS 03/07/2017 12/03/2018 Inactive Levemir FlexTouch 100 unit/mL (3 mL) subcutaneous insulin pe n RxNorm: 522528 90 Unit(s) SQ QPM LAST REFILL UNTIL LABS AND APPOINTMENT!!!! 02/17/2017 Inactive Levemir FlexTouch 100 unit/mL (3 mL) subcutaneous insulin pe n RxNorm: 058645 90 Unit(s) SQ QPM NEEDS FASTING LABS AND APPOINTMENT BEFORE FURTHER REFILLS 12/22/2016 02/17/2017 Inactive Novolog Flexpen U-100 Insulin aspart 100 unit/mL subcutaneou s RxNorm: 6216293 Unit(s) INJECT SUBCUTANEOUSLY NEEDED PER SLIDING SCALE---NEEDS UPDATED LABS 11/28/2016 03/07/2017 Inactive Levemir FlexTouch 100 unit/mL (3 mL) subcutaneous insulin pe n RxNorm: 004953 90 Unit(s) VAG QPM 11/08/2016 12/22/2016 Inactive Levemir FlexTouch 100 unit/mL (3 mL) subcutaneous insulin pe n RxNorm: 146893 90 Unit(s) VAG QPM 11/08/2016 12/21/2016 Inactive Levemir FlexTouch 100 unit/mL (3 mL) subcutaneous insulin pe n RxNorm: 737125 80 Unit(s) VAG QPM 09/05/2016 11/08/2016 Inactive Levemir FlexTouch 100 unit/mL (3 mL) subcutaneous insulin pe n RxNorm: 766780 85 Unit(s) SQ QD 07/22/2016 09/05/2016 Inactive Levemir FlexTouch 100 unit/mL (3 mL) subcutaneous insulin pe n RxNorm: 181007 85 Unit(s) SQ QD 07/04/2016 07/21/2016 Inactive Levemir FlexTouch 100 unit/mL (3 mL) subcutaneous insulin pe n RxNorm: 533440 85 Unit(s) SQ QD 06/14/2016 06/19/2016 Inactive Levemir FlexTouch 100 unit/mL (3 mL) subcutaneous insulin pe n RxNorm: 923899 85 Unit(s) SQ QD 05/03/2016 05/22/2016 Inactive Levemir FlexTouch 100 unit/mL (3 mL) subcutaneous insulin pe n RxNorm: 784356 85 Unit(s) SQ QD 05/03/2016 05/02/2016 Inactive Levemir FlexTouch 100 unit/mL (3 mL) subcutaneous insulin pe n RxNorm: 345328 85 Unit(s) SQ QD 03/14/2016 04/22/2016 Inactive cefuroxime axetil 250 mg tablet RxNorm: 374980 1 Tablet(s) PO BID 0 02/16/2016 02/25/2016 Inactive Levemir FlexTouch 100 unit/mL (3 mL) subcutaneous insulin pe n RxNorm: 333131 85 Unit(s) SQ QD 02/03/2016 03/13/2016 Inactive Levemir FlexTouch 100 unit/mL (3 mL) subcutaneous insulin pe n RxNorm: 527789 85 Unit(s) SQ QD 12/07/2015 02/02/2016 Inactive Pen Needle 31 gauge x 5/16" RxNorm: USE DIRECTED 11/19/201510/2015 Inactive Levemir FlexTouch 100 unit/mL (3 mL) subcutaneous insulin pe n RxNorm: 391680 INJECT 75 UNITS SUBCUTANEOUSLY ONCE DAILY; NEED LABS AND APPT 10/06/2015 12/04/2015 Inactive Novolog Flexpen 100 unit/mL subcutaneous RxNorm: 8243969 INJECT SUBCUTANEOUSLY NEEDED PER SLIDING SCALE 09/15/2015 11/28/2016 Inactive Levemir FlexTouch 100 unit/mL (3 mL) subcutaneous insulin pe n RxNorm: 099698 75 Unit(s) SQ QD Needs lab and appointment 07/13/2015 10/05/2015 Inactive Lyrica 75 mg capsule RxNorm: 518303 1 Capsule(s) PO BID 06/24/2015 Inactive Levemir FlexTouch 100 unit/mL (3 mL) subcutaneous insulin pe n RxNorm: 833620 75 Unit(s) SQ QD Needs lab and appointment 06/23/2015 07/12/2015 Inactive Novolog Flexpen 100 unit/mL subcutaneous RxNorm: 6083549 Unit(s) SQ as needed Sliding scale 06/15/2015 09/14/2015 Inactive Flonase Allergy Relief 50 mcg/actuation nasal spray,suspensi on RxNorm: 2 [place] NASAL QHS 06/11/2015 12/02/2015 Inactive prednisone 20 mg tablet RxNorm: 589033 1 Tablet(s) PO T ID for 3 days then 1 po BID for 3 days then one daily for 3 days 06/11/2015 12/02/2015 Inactiv e cefdinir 300 mg capsule RxNorm: 608331 2 Capsule(s) PO QD 06/11/2015 06/24/2015 Inactive Levemir FlexTouch 100 unit/mL (3 mL) subcutaneous insulin pe n RxNorm: 322322 75 Unit(s) SQ QD Needs lab and appointment 05/29/2015 06/22/2015 Inactive Novolog 100 unit/mL subcutaneous solution RxNorm: 163177 Unit(s) SQ Inject as directed using sliding scale B 05/29/2015 12/03/2018 Inactive Levemir Flexpen 100 unit/mL (3 mL) solution subcutaneo us insulin pen RxNorm: 799022 INJECT 75 UNITS SUBCUTANEOUSLY EVERY DAY 05/11/2015 05/29/2015 Inactive Levemir FlexTouch 100 unit/mL (3 mL) subcutaneous insulin pe n RxNorm: 180569 75 Unit(s) SQ QHS 03/30/2015 12/03/2018 Inactive Levemir FlexTouch 100 unit/mL (3 mL) subcutaneous insulin pe n RxNorm: 071812 75 Unit(s) SQ QHS 03/09/2015 03/29/2015 Inactive Contour Test Strips RxNorm: Miscellaneous 01/27/2015 No Stop Date Ac tive Novolog 100 unit/mL subcutaneous solution RxNorm: 974015 Unit(s) SQ Inject as directed using sliding scale B 01/27/2015 05/29/2015 Inactive Levemir Flexpen 100 unit/mL (3 mL) solution subcutaneo us insulin pen RxNorm: 184269 INJECT 75 UNITS SUBCUTANEOUSLY EVERY DAY 11/05/2014 03/09/2015 Inactive Levemir Flexpen 100 unit/mL (3 mL) solution subcutaneo us insulin pen RxNorm: 407743 INJECT 75 UNITS SUBCUTANEOUSLY EVERY DAY 08/13/2014 10/31/2014 Inactive Novolog 100 unit/mL subcutaneous solution RxNorm: 238358 Unit(s) SQ Inject as directed using sliding scale B 07/15/2014 01/26/2015 Inactive Apidra SoloStar 100 unit/mL subcutaneous insulin pen RxNorm: 532696 Unit(s) SQ INJECT DIRECTED USING SLIDING SCALE B 07/11/2014 07/14/2014 Inactiv e Diovan 320 mg tablet RxNorm: 181270 1 Tablet(s) PO QD 06/10/201405/13 Inactive Apidra SoloStar 100 unit/mL subcutaneous insulin pen RxNorm: 869079 Unit(s) SQ INJECT DIRECTED USING SLIDING SCALE B 04/18/2014 07/10/2014 Inactiv e Levemir Flexpen 100 unit/mL (3 mL) solution subcutaneo us insulin pen RxNorm: 249557 Unit(s) SQ INJECT 75 UNITS SUBCUTANEOUSLY EVERY DAY 09/02/27/2014 Inactive [SAVINGS FOR UNINSURED PATIE NTS -- BIN:[id number], PCN: [id number], Group: [id number], ID# [id number], Process claim through medidametrics, for questions: . THIS IS NOT INSURANCE.] Apidra SoloStar 100 unit/mL subcutaneous insulin pen RxNorm: 783901 Unit(s) SQ INJECT DIRECTED USING SLIDING SCALE B 09/05/2013 04/17/2014 Inactiv e Pen Needle 31 gauge x 5/16" RxNorm: Miscellaneou s USE DIRECTED WITH LEVEMIR AND APIDRA 08/23/2013 11/18/2015 Inactive Prograf 1 mg capsule RxNorm: 746705 2 Capsule(s) PO BID Generic OK to fill 08/21/2013 05/19/2019 Inactive Diovan 320 mg tablet RxNorm: 363646 1 Tablet(s) PO QD 05/30/201305/12 Inactive fluoxetine 20 mg tablet RxNorm: 245856 1 Tablet(s) PO QAM 05/30/2013 07/31/2013 Inactive fluoxetine 20 mg tablet RxNorm: 881302 1 Tablet(s) PO QAM 04/29/2013 05/29/2013 Inactive amlodipine 5 mg tablet RxNorm: 400179 1 Tablet(s) PO QD 04/29/2013 Inactive ketoconazole 2 % topical cream RxNorm: 543522 Application TOP B ID for 2-4wks 04/29/2013 05/12/2013 Inactive Diovan 320 mg tablet RxNorm: 121441 1 Tablet(s) PO QD 04/29/201305/14 Inactive Apidra SoloStar 100 unit/mL subcutaneous insulin pen RxNorm: 358566 Unit(s) SQ Sliding Scale B 02/19/2013 09/05/2013 Inactive Levemir Flexpen 100 unit/mL (3 mL) solution subcutaneo us insulin pen RxNorm: 876983 Insulin Pen SQ INJECT 75 UNITS SUBCUTANEOUSLY EVERY DAY 01/1002/28/2014 Inactive Septra DS 800 mg-160 mg tablet RxNorm: 221864 1 Tablet(s) PO BI D antibiotic 01/01/2013 01/07/2013 Inactive ketoconazole 2 % topical cream RxNorm: 792318 1 Application TOP BID 01/01/2013 01/14/2013 Inactive Levemir Flexpen 100 unit/mL (3 mL) Sub-Q Insulin Pen RxNorm: 706748 Unit(s) SQ INJECT 75 UNITS SUB-Q ONCE A DAY 12/07/2012 No Stop Date Active Levemir Flexpen 100 unit/mL (3 mL) Sub-Q Insulin Pen RxNorm: 317829 Unit(s) SQ INJECT 75 UNITS SUB-Q ONCE A DAY 10/22/2012 12/07/2012 Inactive Levemir Flexpen 100 unit/mL (3 mL) Sub-Q Insulin Pen RxNorm: 076857 75 Unit(s) SQ QHS 08/20/2012 10/22/2012 Inactive Diovan 320 mg tablet RxNorm: 334342 1 Tablet(s) PO QD 07/30/201204/12 Inactive Levemir Flexpen 100 unit/mL (3 mL) Sub-Q Insulin Pen RxNorm: 495124 Insulin Pen SQ INJECT 75 UNITS SUB-Q ONCE A DAY 07/30/2012 10/21/2012 Inactive Levemir Flexpen 100 unit/mL (3 mL) Sub-Q Insulin Pen RxNorm: 694977 75 Unit(s) SQ QHS 07/30/2012 08/19/2012 Inactive Levemir Flexpen 100 unit/mL (3 mL) Sub-Q Insulin Pen RxNorm: 561149 75 Unit(s) SQ QHS 07/30/2012 07/29/2012 Inactive Diovan 320 mg tablet RxNorm: 022522 1 Tablet(s) PO QD 06/21/201202/2013 Inactive Diovan 320 mg tablet RxNorm: 932755 1 Tablet(s) PO QD 06/21/201202/2013 Inactive Diovan 320 mg tablet RxNorm: 914729 1 Tablet(s) PO QD 06/21/201207/13 Inactive CellCept 250 mg capsule RxNorm: 826983 4 Capsule(s) PO BID 06/14/19 13 05/19/2019 Inactive Prograf 1 mg capsule RxNorm: 492160 2 Capsule(s) PO BID Generic OK to fill 06/14/2012 06/20/2012 Inactive Apidra SoloStar 100 unit/mL Sub-Q Insulin Pen RxNorm: 198337 Unit(s) SQ Sliding Scale B 06/13/2012 12/03/2018 Inactive Levemir Flexpen 100 unit/mL (3 mL) Sub-Q Insulin Pen RxNorm: 338138 75 Unit(s) SQ QD 06/13/2012 No Stop Date Active Apidra SoloStar 100 unit/mL Sub-Q Insulin Pen RxNorm: 879510 Unit(s) SQ Sliding Scale B 06/13/2012 No Stop Date Active One Touch Delica Lancets RxNorm: Miscellaneous 06/13/2012 04/04/2017 Inactive Lipitor 40 mg tablet RxNorm: 670962 1 Tablet(s) PO QD 05/30/201208/10 Inactive Diovan 320 mg tablet RxNorm: 009596 1 Tablet(s) PO QD 05/30/201202/2013 Inactive Tricor 145 mg tablet RxNorm: 974920 1 Tablet(s) PO QD 05/30/201208/10 Inactive Lipitor 20 mg Tab RxNorm: 365766 1 Tablet(s) PO QD 09/12/2011 012 Inactive Synthroid 50 mcg Tab RxNorm: 729322 1 Tablet(s) PO QD 09/12/201111/11 Inactive Diovan 320 mg tablet RxNorm: 535704 1 Tablet(s) PO QD 09/12/201102/11 Inactive amlodipine 5 mg tablet RxNorm: 944518 1 Tablet(s) PO QD 09/12/2011 Inactive Diovan 320 mg Tab RxNorm: 023982 1 Tablet(s) PO QD 06/14/2011 012 Inactive Diovan 160 mg Tab RxNorm: 667321 1 Tablet(s) PO QD 03/03/2011 012 Inactive cefdinir 300 mg Cap RxNorm: 737220 2 Capsule(s) PO QD 01/27/201101/11 Inactive Synthroid 50 mcg Tab RxNorm: 082778 1 Tablet(s) PO QD 12/02/201001/11 Inactive Multivitamin & Mineral Formula Tab RxNorm: 1 Tablet(s) PO QD No St art Date Active Miralax 17 gram/dose oral powder RxNorm: 759711 PO BID in 6-8 o unces of water No Start Date Active Tylenol Extra Strength 500 mg tablet RxNorm: 182091 Tablet(s) P O as needed No Start Date Active Tricor Oral RxNorm: Oral No Start Date 05/29/2012 Inactive MagOx 400 mg tablet RxNorm: 524207 1 Tablet(s) PO QD No Start Date Inactive sodium bicarbonate Oral RxNorm: Oral No Start Date 06/19/2016 I nactive Fish Oil 1,000 mg capsule RxNorm: 1 Capsule(s) PO QD No Start Date 04/04/2017 Inactive Novofine Misc RxNorm: Miscellaneous No Start Date 06/12/2012 Inactiv e Percocet 5 mg-325 mg tablet RxNorm: 5244480 Tablet(s) PO as need ed Dr Parson No Start Date 04/04/2017 Inactive Contour Test Strips RxNorm: miscellaneous No Start Date 01/26/2015 I nactive Prograf 1 mg capsule RxNorm: 383258 2 Capsule(s) PO BID No Start Da te 06/13/2012 Inactive Zantac 150 mg Tab RxNorm: 787784 Tablet(s) PO PRN No Start Date 12/01 Inactive Levemir FlexTouch 100 unit/mL (3 mL) subcutaneous insulin pe n RxNorm: 511438 75 Unit(s) SQ QHS No Start Date 03/08/2015 Inactive CellCept 250 mg capsule RxNorm: 277400 4 Capsule(s) PO BID No Start Date 06/13/2012 Inactive Novolog 100 unit/mL subcutaneous solution RxNorm: 182141 Unit(s) SQ Inject as directed using sliding scale B No Start Date 07/14/2014 Inactive Novolog Flexpen 100 unit/mL subcutaneous RxNorm: 0413343 Unit(s) SQ as needed Sliding scale No Start Date 06/14/2015 Inactive Apidra SoloStar 100 unit/mL Sub-Q Insulin Pen RxNorm: 653434 Unit(s) SQ Sliding Scale B No Start Date 06/12/2012 Inactive Levemir FlexTouch U-100 Insulin 100 unit/mL (3 mL) sub cutaneous pen RxNorm: 144139 70 Unit(s) SQ BID No Start Date 02/06/2018 Inactive Pen Needle 31 X 5/16" RxNorm: Miscellaneous No Start Date 08/23/2013 Inactive Synthroid 50 mcg Tab RxNorm: 982610 1 Tablet(s) PO QD No Start Date 0 09/11/2011 Inactive Levemir Flexpen 100 unit/mL (3 mL) Sub-Q Insulin Pen RxNorm: 875542 70 Unit(s) SQ QHS No Start Date 07/29/2012 Inactive Levemir FlexTouch U-100 Insulin 100 unit/mL (3 mL) sub cutaneous pen RxNorm: 569036 80 Unit(s) SQ BID No Start Date 02/14/2018 Inactive Levemir FlexTouch 100 unit/mL (3 mL) subcutaneous insulin pe n RxNorm: 701497 80 Unit(s) SQ QPM No Start Date 09/04/2016 Inactive Lipitor 40 mg tablet RxNorm: 315575 1 Tablet(s) PO QD No Start Date 1 Inactive Ultram 50 mg tablet RxNorm: 151875 2 Tablet(s) PO TID as needed for pain No Start Date 06/10/2015 Inactive Prograf 1 mg Cap RxNorm: 315395 2 Capsule(s) PO BID No Start Date 02/2012 Inactive insulin needles (disposable) 32 x 5/16" RxNorm: Miscellaneous for use with flex pen No Start Date 04/04/2017 Inactive Levemir FlexTouch U-100 Insulin 100 unit/mL (3 mL) sub cutaneous pen RxNorm: 306587 90 Unit(s) SQ BID No Start Date 07/05/2018 Inactive Levemir Flexpen 100 unit/mL (3 mL) Sub-Q Insulin Pen RxNorm: 159950 65 Unit(s) SQ QD No Start Date 06/12/2012 Inactive pantoprazole 40 mg tablet,delayed release RxNorm: 120507 1 Tabl et(s) PO QD No Start Date 05/19/2019 Inactive Zithromax Z-Mateus 250 mg Tab RxNorm: 894780 Tablet(s) PO No Start Date 06/13/2011 Inactive as directed Lipitor 20 mg Tab RxNorm: 084065 1 Tablet(s) PO QD No Start Date [...] Date S vice Location GLYCOSYLATED HEMOGLOBIN TEST 33854 Hgb A1c 31290-7 13.9 % 0 02/27/2019 Unknown MEAN GLUC 9547719 Calc Mean Gluc 352 mg/dL 02/27/2019 Unkn own MICROALBUMIN URINE RANDOM 54372 U Microalbumin 2259.0 mg /L 02/26/2019 Unknown MICROALBUMIN URINE RANDOM 56119 U Creatinine 143 mg/dL 0 02/26/2019 Unknown MICROALBUMIN URINE RANDOM 24316 ALB/CR Ratio 1579.7 mg/g CR 02/26/2019 Unknown MAGNESIUM 72551 MAGNESIUM 1.4 mEq/L 02/19/2019 Unknown GFR CALC 3938504 GFR Non Afr Amr 37 mL/min 02/19/2019 Unk nown GFR CALC 1089025 GFR Afr Amr 45 mL/min 02/19/2019 Unknown LIPID GROUP 69396 Cholesterol 250 mg/dL 02/19/2019 Unkno wn LIPID GROUP 14623 Triglyceride 465 mg/dL 02/19/2019 Unkn own LIPID GROUP 24700 HDL CHOLESTEROL 30 mg/dL 02/19/2019 U nknown LIPID GROUP 94305 Chol/HDL Ratio 8.33 ratio 02/19/2019 U nknown LIPID GROUP 41744 NON-HDL Chol 220 mg/dL 02/19/2019 Unkn own LIPID GROUP 60885 LDL Cholesterol N/A Trig >400 019 Unknown LIPID GROUP 73835 Fasting Unknown 02/19/2019 Unknown COMPREHENSIVE METABOLIC 69599 AST 20 U/L 2018 Unknown COMPREHENSIVE METABOLIC 74303 ALT 30 U/L 2018 Unknown COMPREHENSIVE METABOLIC 03135 BUN 27 mg/dL 2018 Unknown COMPREHENSIVE METABOLIC 01829 ALBUMIN 3.7 g/dL 2018 Unknown COMPREHENSIVE METABOLIC 71697 CHLORIDE 105 mmol/L 02/19 Unknown COMPREHENSIVE METABOLIC 29373 Bili Total 0.5 mg/dL 02/19 Unknown COMPREHENSIVE METABOLIC 00585 ALK PHOS 79 U/L 2018 Unknown COMPREHENSIVE METABOLIC 91564 SODIUM 137 mmol/L 02/19 Unknown COMPREHENSIVE METABOLIC 36141 CREATININE 2.10 mg/dL 02/10 Unknown COMPREHENSIVE METABOLIC 88164 CALCIUM 9.5 mg/dL 2018 Unknown COMPREHENSIVE METABOLIC 53516 POTASSIUM 4.2 mmol/L 02/19 Unknown COMPREHENSIVE METABOLIC 21925 Total Protein 6.5 g/dL Unknown COMPREHENSIVE METABOLIC 43042 Glucose 202 mg/dL 2018 Unknown COMPREHENSIVE METABOLIC 33935 Bicarbonate 22 mmol/L 02/10 Unknown COMPREHENSIVE METABOLIC 37064 AGAP 10 mmol/L 2018 Unknown LIPID GROUP 66164 Cholesterol 320 mg/dL 08/27/2018 Unkno wn LIPID GROUP 24029 Triglyceride 444 mg/dL 08/27/2018 Unkn own LIPID GROUP 55968 HDL CHOLESTEROL 39 mg/dL 08/27/2018 U nknown LIPID GROUP 18654 Chol/HDL Ratio 8.21 ratio 08/27/2018 U nknown LIPID GROUP 93890 NON-HDL Chol 281 mg/dL 08/27/2018 Unkn own LIPID GROUP 26658 LDL Cholesterol N/A Trig >400 019 Unknown LIPID GROUP 28330 Fasting Unknown 08/27/2018 Unknown PHOSPHORUS 5642402 PHOSPHORUS 2.1 mg/dL 08/24/2018 Unknown PROTEIN/CREAT URINE WITH RATIO 42232|42500 U Protein 515 mg/ dL 08/24/2018 Unknown PROTEIN/CREAT URINE WITH RATIO 82979|50633 U Creatinine 116 mg/dL 08/24/2018 Unknown PROTEIN/CREAT URINE WITH RATIO 16906|02164 Prot:Creat Rat 4440 mg/g 08/24/2018 Unknown MAGNESIUM 53500 MAGNESIUM 1.4 mEq/L 08/24/2018 Unknown GFR CALC 6300112 GFR Afr Amr 53 mL/min 08/24/2018 Unknown GFR CALC 0820256 GFR Non Afr Amr 44 mL/min 08/24/2018 [place] [address] Glucose TNP:Unknown Can shaw Reason 08/24/2018 [place] [address] CREATININE TNP:Unknown Cancel Reason 08/24/2018 [place] [address] BUN TNP:Unknown Can shaw Reason 08/24/2018 [place] [address] SODIUM TNP:Unknown Can shaw Reason 08/24/2018 [place] [address] POTASSIUM TNP:Unknown Cancel Reason 08/24/2018 [place] [address] CHLORIDE TNP:Unknown Can shaw Reason 08/24/2018 [place] [address] Bicarbonate TNP:Unknow n Cancel Reason 08/24/2018 [place] [address] AGAP TNP:Unknown Can shaw Reason 08/24/2018 [place] [address] CALCIUM TNP:Unknown Can shaw Reason 08/24/2018 Unknown COMPREHENSIVE METABOLIC 08298 AST 21 U/L 2018 Unknown COMPREHENSIVE METABOLIC 45338 ALT 35 U/L 2018 Unknown COMPREHENSIVE METABOLIC 20438 BUN 25 mg/dL 2018 Unknown COMPREHENSIVE METABOLIC 44932 ALBUMIN 4.5 g/dL 2018 Unknown COMPREHENSIVE METABOLIC 05964 CHLORIDE 106 mmol/L 08/24 Unknown COMPREHENSIVE METABOLIC 21203 Bili Total 0.4 mg/dL 08/24 Unknown COMPREHENSIVE METABOLIC 74970 ALK PHOS 64 U/L 2018 Unknown COMPREHENSIVE METABOLIC 48038 SODIUM 141 mmol/L 08/24 Unknown COMPREHENSIVE METABOLIC 37925 CREATININE 1.81 mg/dL 08/10 Unknown COMPREHENSIVE METABOLIC 30519 CALCIUM 10.3 mg/dL 08/24 Unknown COMPREHENSIVE METABOLIC 38607 POTASSIUM 3.4 mmol/L 08/24 Unknown COMPREHENSIVE METABOLIC 03195 Total Protein 7.2 g/dL Unknown COMPREHENSIVE METABOLIC 34101 Glucose 101 mg/dL 2018 Unknown COMPREHENSIVE METABOLIC 57205 Bicarbonate 23 mmol/L 08/10 Unknown COMPREHENSIVE METABOLIC 47325 AGAP 12 mmol/L 2018 Unknown UA W/MICR 08738 UA Urine Appear Normal 08/24/2018 Unk nown UA W/MICR 66822 UA Protein 3+ 08/24/2018 Unknown UA W/MICR 29145 UA Hemoglobin Trace 08/24/2018 Unkno wn UA W/MICR 27921 UA Glucose 3+ 08/24/2018 Unknown UA W/MICR 12866 UA Ketones Negative 08/24/2018 Unknown UA W/MICR 27053 UA pH 6.0 08/24/2018 Unknown UA W/MICR 78948 U Spec [place] 1.025 08/24/2018 Unkn own UA W/MICR 74959 UA Bilirubin Negative 08/24/2018 Unknow n UA W/MICR 30145 UA Leuk Esteras Negative 08/24/2018 Unk nown UA W/MICR 15145 UA Nitrite NEG 08/24/2018 Unknown UA W/MICR 24137 UA RBC auto 12.9 /uL 08/24/2018 Unknown UA W/MICR 18965 UA WBC/hpf 1 08/24/2018 Unknown UA W/MICR 28009 UA RBC hpf 2 08/24/2018 Unknown UA W/MICR 91783 UA WBC auto 5.9 /uL 08/24/2018 Unknown UA W/MICR 52903 UA SQ EPI auto 5.2 /uL 08/24/2018 Unkn own UA W/MICR 26015 UA H Cast auto 0.10 /uL 08/24/2018 Unkn own PROGRAF [id number] Prograf 7.3 ng/mL 08/24/2018 Unknown MICROALBUMIN URINE RANDOM 07290 U Microalbumin 3485.2 mg /L 08/24/2018 Unknown MICROALBUMIN URINE RANDOM 81725 U Creatinine 116 mg/dL 0 08/24/2018 Unknown MICROALBUMIN URINE RANDOM 37527 ALB/CR Ratio 3004.5 mg/g CR 08/24/2018 Unknown GLYCOSYLATED HEMOGLOBIN TEST 91739 Hgb A1c 68566-3 13.3 % 0 06/29/2018 Unknown MEAN GLUC [id number] Calc Mean Gluc 335 mg/dL 06/29/2018 Unkn own COMPREHENSIVE METABOLIC 85830 AST 17 U/L 2017 Unknown COMPREHENSIVE METABOLIC 46091 ALT 24 U/L 2017 Unknown COMPREHENSIVE METABOLIC 29629 BUN 24 mg/dL 2017 Unknown COMPREHENSIVE METABOLIC 96351 ALBUMIN 3.9 g/dL 2017 Unknown COMPREHENSIVE METABOLIC 92628 CHLORIDE 108 mmol/L 02/06 Unknown COMPREHENSIVE METABOLIC 66026 Bili Total 0.6 mg/dL 02/06 Unknown COMPREHENSIVE METABOLIC 12191 ALK PHOS 67 U/L 2017 Unknown COMPREHENSIVE METABOLIC 80155 SODIUM 140 mmol/L 02/06 Unknown COMPREHENSIVE METABOLIC 42935 CREATININE 1.75 mg/dL 01/11 Unknown COMPREHENSIVE METABOLIC 21242 CALCIUM 9.6 mg/dL 2017 Unknown COMPREHENSIVE METABOLIC 02093 POTASSIUM 3.8 mmol/L 02/06 Unknown COMPREHENSIVE METABOLIC 15027 Total Protein 7.1 g/dL Unknown COMPREHENSIVE METABOLIC 10449 Glucose 62 mg/dL 2017 Unknown COMPREHENSIVE METABOLIC 18154 Bicarbonate 23 mmol/L 01/11 Unknown COMPREHENSIVE METABOLIC 84878 AGAP 9 mmol/L 2017 Unknown GLYCOSYLATED HEMOGLOBIN TEST 46713 Hgb A1c 15353-7 13.0 % 0 02/06/2018 Unknown GFR CALC 7410939 GFR Non Afr Amr 46 mL/min 02/06/2018 Unk nown GFR CALC 1208653 GFR Afr Amr 55 mL/min 02/06/2018 Unknown MICROALBUMIN URINE RANDOM 41524 U Microalbumin 669.0 mg/ L 02/06/2018 Unknown MICROALBUMIN URINE RANDOM 64296 U Creatinine 92 mg/dL 0 02/06/2018 Unknown MICROALBUMIN URINE RANDOM 78573 ALB/CR Ratio 727.2 mg/gC R 02/06/2018 Unknown MEAN GLUC 1255373 Calc Mean Gluc 326 mg/dL 02/06/2018 Unkn own GLYCOSYLATED HEMOGLOBIN TEST 74831 Hgb A1c 66503-6 14.3 % 0 12/03/2015 Unknown THYROID STIMULATING HORMONE 12126 TSH 1.909 uIU/mL 12/03/2015 Unknown MAGNESIUM 94976 MAGNESIUM 1.5 mEq/L 12/03/2015 Unknown GFR CALC 8143968 GFR Non Afr Amr 39 mL/min 12/03/2015 Unk nown GFR CALC 9459434 GFR Afr Amr 48 mL/min 12/03/2015 Unknown MEAN GLUC 7498509 Mean Glucose 364 mg/dL 12/03/2015 Unknow n COMPREHENSIVE METABOLIC 72977 AST 34 U/L 2015 Unknown COMPREHENSIVE METABOLIC 77353 ALT 78 U/L 2015 Unknown COMPREHENSIVE METABOLIC 74817 BUN 29 mg/dL 2015 Unknown COMPREHENSIVE METABOLIC 05154 ALBUMIN 4.3 g/dL 2015 Unknown COMPREHENSIVE METABOLIC 54083 CHLORIDE 93 mmol/L 2015 Unknown COMPREHENSIVE METABOLIC 42929 Bili Total 0.7 mg/dL 12/02 Unknown COMPREHENSIVE METABOLIC 02109 ALK PHOS 83 U/L 2015 Unknown COMPREHENSIVE METABOLIC 62953 SODIUM 125 mmol/L 12/02 Unknown COMPREHENSIVE METABOLIC 54035 CREATININE 2.01 mg/dL 11/11 Unknown COMPREHENSIVE METABOLIC 88778 CALCIUM 9.8 mg/dL 2015 Unknown COMPREHENSIVE METABOLIC 53704 POTASSIUM 4.3 mmol/L 12/02 Unknown COMPREHENSIVE METABOLIC 67876 Total Protein 7.3 g/dL Unknown COMPREHENSIVE METABOLIC 36106 Glucose 542 mg/dL 2015 Unknown COMPREHENSIVE METABOLIC 17077 Bicarbonate 23 mmol/L 11/11 Unknown COMPREHENSIVE METABOLIC 68882 AGAP 9 mmol/L 2015 Unknown COMPREHENSIVE METABOLIC 49395 AST 31 U/L 2013 Unknown COMPREHENSIVE METABOLIC 14970 ALT 52 IU/L 2013 Unknown COMPREHENSIVE METABOLIC 56311 BUN 26 MG/DL 2013 Unknown COMPREHENSIVE METABOLIC 08543 ALBUMIN 4.9 GM/DL 2013 Unknown COMPREHENSIVE METABOLIC 38289 CHLORIDE 108 MMOL/L 07/30 Unknown COMPREHENSIVE METABOLIC 66706 BILI TOT 0.4 MG/DL 2013 Unknown COMPREHENSIVE METABOLIC 87440 ALK PHOS 68 U/L 2013 Unknown COMPREHENSIVE METABOLIC 01630 SODIUM 138 MMOL/L 07/30 Unknown COMPREHENSIVE METABOLIC 41632 CREATININE 2.02 MG/DL 07/13 Unknown COMPREHENSIVE METABOLIC 08769 CALCIUM 10.3 MG/DL 07/30 Unknown COMPREHENSIVE METABOLIC 63061 POTASSIUM 5.0 MMOL/L 07/30 Unknown COMPREHENSIVE METABOLIC 84873 PROT TOT 7.3 GM/DL 2013 Unknown COMPREHENSIVE METABOLIC 14216 Glucose 89 MG/DL 2013 Unknown COMPREHENSIVE METABOLIC 03155 BICARB 24 MMOL/L 2013 Unknown COMPREHENSIVE METABOLIC 99648 ANION GAP 6 MEQ/L 2013 Unknown GFR CALC 8320640 GFR AA 48.0L ML/MIN 07/30/2013 Unknow n GFR CALC 3736869 GFR NON-AA 40.0L ML/MIN 07/30/2013 Unkno wn COMPLETE BLOOD COUNT 1914704 WBC 7.9 10e9/L 07/30/19 14 Unknown COMPLETE BLOOD COUNT 5200059 RBC 4.94 10e12/L 2013 Unknown COMPLETE BLOOD COUNT 0661790 HGB 14.0 g/dL 4 Unknown COMPLETE BLOOD COUNT 4301362 HCT DET 41.5 % 4 Unknown COMPLETE BLOOD COUNT 4223442 MCV 84.0 fL 4 Unknown COMPLETE BLOOD COUNT 2683316 MCH 28.3 pg 4 Unknown COMPLETE BLOOD COUNT 8258587 MCHC 33.7 g/dL 4 Unknown COMPLETE BLOOD COUNT 5411641 PLT 176 10e9/L 07/30/19 14 Unknown COMPLETE BLOOD COUNT 1711318 MPV 11.8 fL 4 Unknown COMPLETE BLOOD COUNT [id number] CLAYTON % 75.4 % 4 Unknown COMPLETE BLOOD COUNT 1526443 LY % 13.7 % 4 Unknown COMPLETE BLOOD COUNT 5560475 MON % 8.9 % 4 Unknown COMPLETE BLOOD COUNT 7844378 EOS % 1.7 % 4 Unknown COMPLETE BLOOD COUNT [id number] BASO % 0.3 % 4 Unknown COMPLETE BLOOD COUNT 4196352 RDW 13.4 % 4 Unknown COMPLETE BLOOD COUNT 7101495 ABS CLAYTON 5.96 10e9/L 014 Unknown COMPLETE BLOOD COUNT 3148148 ABS LYMPH 1.08 10e9/L 014 Unknown COMPLETE BLOOD COUNT 4772784 ABS MONO 0.70 10e9/L 014 Unknown COMPLETE BLOOD COUNT [id number] ABS EOS 0.13 10e9/L 014 Unknown COMPLETE BLOOD COUNT [id number] ABS BASO 0.02 10e9/L 014 Unknown COMPLETE BLOOD COUNT 8372355 RDW-SD 40.2 fL 4 Unknown C-REACTIVE PROTEIN (CRP) QUANT 29830 CRP 0.2 MG/DL 07/30/2013 Unknown CANCEL 4776630 CANCEL FOOTNOTE 05/23/2012 Unknown PEND CHEM PEND CHEM FOOTNOTE 05/22/2012 Unknown COMPREHENSIVE METABOLIC 07591 AST 61 U/L 2011 Unknown COMPREHENSIVE METABOLIC 55737 ALT 106 U/L 2011 Unknown COMPREHENSIVE METABOLIC 15652 BUN 33 MG/DL 2011 Unknown COMPREHENSIVE METABOLIC 50063 ALBUMIN 5.0 GM/DL 2011 Unknown COMPREHENSIVE METABOLIC 67412 CHLORIDE 89 MMOL/L 2011 Unknown COMPREHENSIVE METABOLIC 52888 BILI TOT 0.6 MG/DL 2011 Unknown COMPREHENSIVE METABOLIC 82121 ALK PHOS 129 U/L 2011 Unknown COMPREHENSIVE METABOLIC 38043 SODIUM 120 MMOL/L 05/21 Unknown COMPREHENSIVE METABOLIC 45692 CREATININE 2.23 MG/DL 05/12 Unknown COMPREHENSIVE METABOLIC 66221 CALCIUM 9.8 MG/DL 2011 Unknown COMPREHENSIVE METABOLIC 87148 POTASSIUM 5.3 MMOL/L 05/21 Unknown COMPREHENSIVE METABOLIC 06581 PROT TOT 7.8 GM/DL 2011 Unknown COMPREHENSIVE METABOLIC 49543 Glucose 789 MG/DL 2011 Unknown COMPREHENSIVE METABOLIC 89467 BICARB 20 MMOL/L 2011 Unknown COMPREHENSIVE METABOLIC 25528 ANION GAP 11 MMOL/L 2011 Unknown GFR CALC 8269755 GFR AA 43.0L ML/MIN 05/21/2012 Unknow n GFR CALC 7128475 GFR NON-AA 36.0L ML/MIN 05/21/2012 Unkno wn THYROID STIMULATING HORMONE 10956 TSH 1.499 uIU/ML 01/27/2011 Unknown FREE T4 63206 FREE T4 1.15 NG/DL 01/27/2011 Unknown Procedures Procedure Codes Date ROUTINE VENIPUNCTURE CPT-4: 44540 02/26/2019 A1C HPLC CPT-4: 74432 02/26/2019 MICROALBUMIN QUANTITATIVE CPT-4: 20839 02/26/2019 ROUTINE VENIPUNCTURE CPT-4: 15290 02/19/2019 METABOLIC PANEL TOTAL CA CPT-4: 01893 02/19/2019 MICROALBUMIN, QUANTITATIVE CPT-4: 65552 02/19/2019 LIPID PANEL CPT-4: 93110 02/19/2019 COMPREHEN METABOLIC PANEL CPT-4: 88237 02/19/2019 ASSAY OF MAGNESIUM CPT-4: 48346 02/19/2019 METABOLIC PANEL TOTAL CA CPT-4: 51319 08/24/2018 COMPREHEN METABOLIC PANEL CPT-4: 58893 08/24/2018 ASSAY OF MAGNESIUM CPT-4: 94059 08/24/2018 MICROALBUMIN QUANTITATIVE CPT-4: 86958 08/24/2018 PROTEIN/CREAT URINE WITH RATIO CPT-4: 06987|95777 9 PHOSPHORUS CPT-4: 7896308 08/24/2018 LIPID PANEL CPT-4: 20242 08/24/2018 ROUTINE VENIPUNCTURE CPT-4: 96141 06/29/2018 A1C HPLC CPT-4: 56695 06/29/2018 URINALYSIS NONAUTO W/O SCOPE CPT-4: 04067 02/06/2018 URINE CULTURE/ COLONY COUNT CPT-4: 19171 02/06/2018 MICROALBUMIN QUANTITATIVE CPT-4: 69519 02/06/2018 ROUTINE VENIPUNCTURE CPT-4: 51368 02/06/2018 COMPREHEN METABOLIC PANEL CPT-4: 15844 02/06/2018 A1C HPLC CPT-4: 11759 02/06/2018 ROUTINE VENIPUNCTURE CPT-4: 65051 11/02/2017 COMPREHEN METABOLIC PANEL CPT-4: 88954 11/02/2017 A1C HPLC CPT-4: 24152 11/02/2017 TDAP VACCINE 7 YRS/> IM CPT-4: 72383 07/27/2017 IMMUNIZATION ADMIN CPT-4: 42334 07/27/2017 URINALYSIS NONAUTO W/O SCOPE CPT-4: 82118 02/16/2016 URINE CULTURE/ COLONY COUNT CPT-4: 45617 02/16/2016 PRESCRIP TRANSMIT VIA ERX SY CPT-4: G8553 02/16/2016 ROUTINE VENIPUNCTURE CPT-4: 53381 12/03/2015 ASSAY THYROID STIM HORMONE CPT-4: 46120 12/03/2015 COMPREHEN METABOLIC PANEL CPT-4: 28026 12/03/2015 A1C HPLC CPT-4: 05847 12/03/2015 ASSAY OF MAGNESIUM CPT-4: 23326 12/03/2015 URINALYSIS NONAUTO W/O SCOPE CPT-4: 56584 12/03/2015 URINE CULTURE/ COLONY COUNT CPT-4: 64147 12/03/2015 URINALYSIS NONAUTO W/O SCOPE CPT-4: 75908 07/30/2013 URINE CULTURE/ COLONY COUNT CPT-4: 07867 07/30/2013 ROUTINE VENIPUNCTURE CPT-4: 94393 07/30/2013 COMPLETE CBC W/AUTO DIFF WBC CPT-4: 04509 07/30/2013 COMPREHEN METABOLIC PANEL CPT-4: 12285 07/30/2013 C-REACTIVE PROTEIN CPT-4: 44851 07/30/2013 ROUTINE VENIPUNCTURE CPT-4: 31284 08/20/2012 ASSAY OF FREE THYROXINE CPT-4: 63561 08/20/2012 ASSAY THYROID STIM HORMONE CPT-4: 77949 08/20/2012 COMPREHEN METABOLIC PANEL CPT-4: 57434 08/20/2012 COMPLETE CBC W/AUTO DIFF WBC CPT-4: 93757 08/20/2012 LIPID PANEL CPT-4: 49763 08/20/2012 A1C GLYCOSYLATED HEMOGLOBIN TEST CPT-4: 19288 013 ASSAY, GLUCOSE, BLOOD QUANT CPT-4: 36272 06/21/2012 ASSAY, GLUCOSE, BLOOD QUANT CPT-4: 17835 05/21/2012 ROUTINE VENIPUNCTURE CPT-4: 81966 05/21/2012 COMPREHEN METABOLIC PANEL CPT-4: 59658 05/21/2012 A1C GLYCOSYLATED HEMOGLOBIN TEST CPT-4: 94892 012 CURRENT SMKLESS TOBACCO USER CPT-4: G8456 06/14/2011 PT VIS DOC USE EHR CER ATCB CPT-4: G8447 06/14/2011 PRESCRIP TRANSMIT VIA ERX SY CPT-4: G8553 06/14/2011 PT VIS DOC USE EHR CER ATCB CPT-4: G8447 03/03/2011 PRESCRIP TRANSMIT VIA ERX SY CPT-4: G8553 03/03/2011 ROUTINE VENIPUNCTURE CPT-4: 10861 01/27/2011 ASSAY OF FREE THYROXINE CPT-4: 93827 01/27/2011 ASSAY THYROID STIM HORMONE CPT-4: 36555 01/27/2011 PT VIS DOC USE EHR CER [...] 1: 158/90 Code: 8480-6 BMI: 34.3 Code: 00890-8 Heart Rate 1: 78 bpm Height: 6'1" Respiratory Rate: 20 bpm SpO2: 98% Tempera ture: 36.6 (C) / 97.8 (F) Weight: 260 lbs 11/02/2017 Blood Pressure 1: 134/92 Code: 8480-6 BMI: 32.3 Code: 77942-6 Heart Rate 1: 72 bpm Height: 6'1" SpO2: 98% Temperature: 36.4 (C) / 97.5 (F) Weight: 245 lbs 07/27/2017 Blood Pressure 1: 136/64 Code: 8480-6 BMI: 30.9 Code: 02867-7 Heart Rate 1: 78 bpm Height: 6'1" Respiratory Rate: 22 bpm SpO2: 98% Tempera ture: 36.4 (C) / 97.6 (F) Weight: 234 lbs 04/05/2017 Blood Pressure 1: 126/90 Code: 8480-6 BMI: 33.5 Code: 02678-3 Heart Rate 1: 76 bpm Height: 6'1" Respiratory Rate: 20 bpm SpO2: 97% Tempera ture: 37.0 (C) / 98.6 (F) Weight: 254 lbs 06/20/2016 Blood Pressure 1: 122/74 Code: 8480-6 BMI: 35.2 Code: 61302-0 Heart Rate 1: 80 bpm Height: 6'1" Respiratory Rate: 20 bpm SpO2: 97% Tempera ture: 36.9 (C) / 98.5 (F) Weight: 267 lbs 02/16/2016 Blood Pressure 1: 136/82 Code: 8480-6 BMI: 36.4 Code: 12035-6 Heart Rate 1: 66 bpm Height: 6'1" Respiratory Rate: 18 bpm SpO2: 96% Tempera ture: 36.4 (C) / 97.6 (F) Weight: 276 lbs 12/03/2015 Blood Pressure 1: 122/86 Code: 8480-6 BMI: 39.2 Code: 68860-1 Heart Rate 1: 76 bpm Height: 6' Respiratory Rate: 20 bpm Temperature: 37 .1 (C) / 98.7 (F) Weight: 289 lbs 06/24/2015 Blood Pressure 1: 136/84 Code: 8480-6 BMI: 40.7 Code: 86605-9 Heart Rate 1: 84 bpm Height: 6' Respiratory Rate: 20 bpm Temperature: 36 .9 (C) / 98.4 (F) Weight: 300 lbs 06/11/2015 Blood Pressure 1: 160/82 Code: 8480-6 BMI: 40.4 Code: 63621-4 Heart Rate 1: 82 bpm Height: 6' Respiratory Rate: 22 bpm Temperature: 36 .5 (C) / 97.7 (F) Weight: 298 lbs 07/17/2014 Blood Pressure 1: 132/84 Code: 8480-6 BMI: 41.0 Code: 95291-7 Heart Rate 1: 76 bpm Height: 6'1" Respiratory Rate: 20 bpm Temperature: 36 .9 (C) / 98.4 (F) Weight: 311 lbs 10/31/2013 Blood Pressure 1: 132/80 Code: 8480-6 BMI: 41.2 Code: 83529-9 Heart Rate 1: 84 bpm Height: 6'1" Respiratory Rate: 22 bpm Temperature: 36 .1 (C) / 97.0 (F) Weight: 312 lbs 08/01/2013 Blood Pressure 1: 142/86 Code: 8480-6 BMI: 42.4 Code: 57469-8 Heart Rate 1: 84 bpm Height: 6' [...] 1: 156/108 Code: 8480-6 BMI: 41.9 Code: 89398-5 Heart Rate 1: 92 bpm Height: 6' Respiratory Rate: 20 bpm Temperature: 36 .9 (C) / 98.4 (F) Weight: 309 lbs 02/27/2013 Blood Pressure 1: 162/114 Code: 8480-6 BMI: 41.0 Code: 18170-9 Heart Rate 1: 84 bpm Height: 6' Respiratory Rate: 20 bpm Temperature: 36 .7 (C) / 98.0 (F) Weight: 302 lbs 01/01/2013 Blood Pressure 1: 138/86 Code: 8480-6 BMI: 41.0 Code: 05001-2 Heart Rate 1: 76 bpm Height: 6' Respiratory Rate: 20 bpm Temperature: 36 .7 (C) / 98.0 (F) Weight: 302 lbs 11/27/2012 Blood Pressure 1: 136/92 Code: 8480-6 BMI: 41.2 Code: 81491-2 Heart Rate 1: 80 bpm Height: 6' Respiratory Rate: 20 bpm Temperature: 36 .6 (C) / 97.8 (F) Weight: 304 lbs 08/28/2012 Blood Pressure 1: 126/80 Code: 8480-6 BMI: 41.8 Code: 48891-1 Heart Rate 1: 80 bpm Height: 6' Respiratory Rate: 20 bpm Temperature: 36 .4 (C) / 97.6 (F) Weight: 308 lbs 07/03/2012 Blood Pressure 1: 114/80 Code: 8480-6 BMI: 42.3 Code: 67152-9 Heart Rate 1: 72 bpm Height: 6' Respiratory Rate: 20 bpm Temperature: 36 .6 (C) / 97.9 (F) Weight: 312 lbs 06/21/2012 Blood Pressure 1: 152/100 Code: 8480-6 BMI: 43.3 Code: 72274-1 Heart Rate 1: 72 bpm Height: 6' Temperature: 36.8 (C) / 98.2 (F) Weight: 319 lbs 05/30/2012 Blood Pressure 1: 122/78 Code: 8480-6 BMI: 43.0 Code: 09183-2 Heart Rate 1: 72 bpm Height: 6' Respiratory Rate: 20 bpm Temperature: 36 .7 (C) / 98.0 (F) Weight: 317 lbs 05/21/2012 Blood Pressure 1: 126/94 Code: 8480-6 BMI: 44.2 Code: 79932-6 Heart Rate 1: 92 bpm Height: 6' Respiratory Rate: 20 bpm Temperature: 36 .6 (C) / 97.9 (F) Weight: 326 lbs 01/24/2012 Blood Pressure 1: 122/90 Code: 8480-6 BMI: 44.5 Code: 70429-9 Heart Rate 1: 76 bpm Height: 6' Respiratory Rate: 20 bpm Temperature: 36 .8 (C) / 98.2 (F) Weight: 328 lbs 09/21/2011 Blood Pressure 1: 116/80 Code: 8480-6 BMI: 44.1 Code: 88564-6 Heart Rate 1: 92 bpm Height: 6' Respiratory Rate: 20 bpm Temperature: 36 .7 (C) / 98.1 (F) Weight: 325 lbs 09/12/2011 Blood Pressure 1: 166/110 Code: 8480-6 BMI: 45.0 Code: 05542-6 Heart Rate 1: 80 bpm Height: 6' Respiratory Rate: 20 bpm Temperature: 36 .5 (C) / 97.7 (F) Weight: 332 lbs 06/14/2011 Blood Pressure 1: 142/84 Code: 8480-6 BMI: 45.6 Code: 90502-0 Heart Rate 1: 104 bpm Height: 6' Respiratory Rate: 20 bpm Temperature: 36 .4 (C) / 97.5 (F) Weight: 336 lbs 03/03/2011 Blood Pressure 1: 130/96 Code: 8480-6 Heart Rate 1: 86 bpm Temperature: 36.1 (C) / 97.0 (F) Weight: 327 lbs 01/27/2011 Blood Pressure 1: 142/96 Code: 8480-6 BMI: 42.0 Code: 56750-7 Heart Rate 1: 72 bpm Height: 6'2" [...] Right lower quadrant pain[ICD10: R10.31] Galina [employer] CPT-4: 03322 05/20/2019 ([id number]) OFFICE/OUTPATIENT VISIT EST Diagnosis: Essential (primary) hypertension[ICD10: I10] Diagnosis: 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, 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] Diagnosis: Kidney transplant status[ICD10: Z94.0] Diagnosis: Chronic kidney disease, stage 3 (moderate)[ICD10: N18.3] Diagnosis: Mixed hyperlipidemia[ICD10: E78.2] Galina [employer] CPT-4: 01194 02/26/2019 ([id number]) NURSE/OUTPATIENT VISIT EST Diagnosis: 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, 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] Diagnosis: Essential (primary) hypertension[ICD10: I10] Diagnosis: Other specified hypothyroidism[ICD10: E03.8] Diagnosis: Mixed hyperlipidemia[ICD10: E78.2] Galina SMITH [employer] CPT-4: 59343 02/19/2019 ([id number]) NURSE/OUTPATIENT VISIT EST Diagnosis: Kidney transplant status[ICD10: Z94.0] 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] Diagnosis: Other legal word processor (current) drug therapy[ICD10: Z79.899] Diagnosis: Encounter for aftercare following other organ transplant[ICD10: Z48.298] Diagnosis: Mixed hyperlipidemia[ICD10: E78.2] Galina WARREN [employer] SMITH [employer] CPT-4: 31127 08/24/2018 ([id number]) NURSE/OUTPATIENT VISIT EST Diagnosis: Type 2 diabetes mellitus with diabetic neuropathy, unspecified[ICD10: E11.40] Diagnosis: Type 2 diabetes mellitus with hyperglycemia[ICD10: E11.65] 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] Diagnosis: Essential (primary) hypertension[ICD10: I10] Galina [employer] CPT-4: 82562 06/29/2018 ([id number]) OFFICE/OUTPATIENT VISIT EST Diagnosis: Slow transit constipation[ICD10: K59.01] Diagnosis: Epigastric pain[ICD10: R10.13] Diagnosis: Type 2 diabetes mellitus with hyperglycemia[ICD10: E11.65] Coleen SMITH [employer] CPT-4: 88221 06/26/2018 ([id number]) OFFICE/OUTPATIENT VISIT EST Diagnosis: Right lower quadrant pain[ICD10: R10.31] Diagnosis: Type 2 diabetes mellitus with diabetic neuropathy, unspecified[ICD10: E11.40] Coleen SMITH [employer] CPT-4: 22580 ([id number]) OFFICE/OUTPATIENT VISIT EST Diagnosis: Type 2 diabetes mellitus with hyperglycemia[ICD10: E11.65] Diagnosis: Mixed hyperlipidemia[ICD10: E78.2] Diagnosis: Essential (primary) hypertension[ICD10: I10] Coleen SMITH [facility] CPT-4: 59460 11/02/2017 ([id number]) PREV VISIT EST AGE 18-39 Diagnosis: Encounter for general adult medical examination with abnormal findings[ICD10: Z00.01] Diagnosis: Abrasion of right hand, initial encounter[ICD10: S60.511A] 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] Coleen SMITH [facility] CPT-4: 65095 OFFICE/OUTPATIENT VISIT EST 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] Diagnosis: Tinea pedis[ICD10: B35.3] Coleen ARTEAGA [facility] CPT-4: 17445 04/05/2017 ([id number]) OFFICE/OUTPATIENT VISIT EST Diagnosis: 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, 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] Diagnosis: Mixed hyperlipidemia[ICD10: E78.2] Diagnosis: Essential (primary) hypertension[ICD10: I10] [facility]: 41874 06/20/2016 ([id number]) OFFICE/OUTPATIENT VISIT EST Diagnosis: Urinary tract infection, site not specified[ICD10: N39.0] Missy SMITH [facility] CPT-4: 79697 02/16/2016 ([id number]) OFFICE/OUTPATIENT VISIT EST Diagnosis: Type 2 diabetes mellitus with hyperglycemia[ICD10: E11.65] Diagnosis: Cramp and spasm[ICD10: R25.2] Diagnosis: Hematuria, unspecified[ICD10: R31.9] [facility] CPT-[facility]: 60584 12/03/2015 OFFICE/OUTPATIENT VISIT EST Diagnosis: Type 2 diabetes mellitus with diabetic neuropathy, unspecified[ICD10: E11.40] Alejandra Billy [facility] CPT-4: 72361 06/24/2015 ([id number]) OFFICE/OUTPATIENT VISIT EST Diagnosis: Acute sinusitis, unspecified[ICD10: J01.90] Diagnosis: Otitis media, unspecified, bilateral[ICD10: H66.93] Galina DENNISONQUELINE SusuKarol LUIS [facility] CPT-4: 74456 06/11/2015 ([id number]) OFFICE/OUTPATIENT VISIT EST Diagnosis: 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[ICD9: 250.01] Diagnosis: HYPERTENSION[ICD9: 401.9] Diagnosis: HYPERLIPIDEMIA NEC/NOS[ICD9: 272.4] Diagnosis: KIDNEY TRANSPLANT STATUS[ICD9: V42.0] Galina KERN SusuKarol LUIS [facility] CPT-4: 10970 07/17/2014 ([id number]) OFFICE/OUTPATIENT VISIT EST Diagnosis: 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[ICD9: 250.01] Diagnosis: HYPERTENSION[ICD9: 401.9] Galina Luis DENNISONQUELINE SusuKarol ROD ARTEAGA [facility] CPT-4: 98377 10/31/2013 ([id number]) OFFICE/OUTPATIENT VISIT EST Diagnosis: 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I[ICD9: 250.00] Diagnosis: HYPERTENSION[ICD9: 401.9] Diagnosis: HYPERLIPIDEMIA NEC/NOS[ICD9: 272.4] Galina GE SKarol LUIS [facility] CPT-4: 26128 08/01/2013 OFFICE/OUTPATIENT VISIT EST Diagnosis: HEMATURIA NOS[ICD9: 599.70] Diagnosis: Abdominal pain, acute, right lower quadrant[ICD9: 789.03] Diagnosis: KIDNEY TRANSPLANT STATUS[ICD9: V42.0] Alejandra KERN SusuKarol LUIS [facility] CPT-4: 00066 07/30/2013 ([id number]) OFFICE/OUTPATIENT VISIT EST Diagnosis: Uncontrolled hypertension[ICD9: 401.9] Diagnosis: BRIEF DEPRESSIVE REACT[ICD9: 309.0] Galina GE SKarol LUIS [employer] [facility] CPT-4: 09508 05/30/2013 ([id number]) OFFICE/OUTPATIENT VISIT EST Diagnosis: HYPERTENSION[ICD9: 401.9] Diagnosis: Anticipatory grieving[ICD9: 309.0] Galina WARREN SusuKarol RODNDSHRAVAN [employer] [facility] CPT-4: 26863 04/29/2013 ([id number]) OFFICE/OUTPATIENT VISIT EST Diagnosis: 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I, UNCONTROLLED[ICD9: 250.02] Diagnosis: HYPERTENSION[ICD9: 401.9] Diagnosis: HYPOTHYROIDISM[ICD9: 244.9] Diagnosis: KIDNEY TRANSPLANT STATUS[ICD9: V42.0] Galina Rodmateus THRASHER ELRIN [facility] CPT-[facility]: 30247 02/27/2013 OFFICE/OUTPATIENT VISIT EST Diagnosis: Paronychia[ICD9: 681.9] Diagnosis: ONYCHOMYCOSIS[ICD9: 110.1] Viky Chance [facility] CPT-[facility]: 75661 01/01/2013 ([id number]) OFFICE/OUTPATIENT VISIT EST Diagnosis: 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I, UNCONTROLLED[ICD9: 250.02] Diagnosis: HYPERLIPIDEMIA NEC/NOS[ICD9: 272.4] Diagnosis: HYPERTENSION[ICD9: 401.9] Diagnosis: KIDNEY TRANSPLANT STATUS[ICD9: V42.0] Diagnosis: HYPOTHYROIDISM[ICD9: 244.9] Galina ASENCIO SusuKarol [facility] CPT-4: 43456 11/27/2012 ([id number]) OFFICE/OUTPATIENT VISIT EST Diagnosis: 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I[ICD9: 250.00] Diagnosis: HYPOTHYROIDISM[ICD9: 244.9] Diagnosis: HYPERLIPIDEMIA NEC/NOS[ICD9: 272.4] Diagnosis: HYPERTENSION[ICD9: 401.9] Galina Chance ROD NDER [facility] CPT-4: 36090 08/28/2012 ([id number]) OFFICE/OUTPATIENT VISIT EST Diagnosis: HYPOTHYROIDISM[ICD9: 244.9] Diagnosis: 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I, UNCONTROLLED[ICD9: 250.02] Diagnosis: HYPERLIPIDEMIA NEC/NOS[ICD9: 272.4] Diagnosis: KIDNEY TRANSPLANT STATUS[ICD9: V42.0] Diagnosis: HYPERTENSION[ICD9: 401.9] Galina Chance ROD NDER [facility] CPT-4: 79250 08/20/2012 OFFICE/OUTPATIENT VISIT EST Diagnosis: 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I, UNCONTROLLED[ICD9: 250.02] Diagnosis: HYPERTENSION[ICD9: 401.9] Galina Chance ROD NDER [facility] CPT-4: 95131 07/03/2012 OFFICE/OUTPATIENT VISIT EST Diagnosis: 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I, UNCONTROLLED[ICD9: 250.02] Diagnosis: HYPERTENSION[ICD9: 401.9] Galina ARTEAGA [facility] CPT-4: 01759 06/21/2012 OFFICE/OUTPATIENT VISIT EST Diagnosis: 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I, UNCONTROLLED[ICD9: 250.02] Diagnosis: HYPERTENSION[ICD9: 401.9] Diagnosis: HYPERLIPIDEMIA NEC/NOS[ICD9: 272.4] Diagnosis: KIDNEY TRANSPLANT STATUS[ICD9: V42.0] [facility] 808[facility] 05/30/2012 ([id number]) OFFICE/OUTPATIENT VISIT EST Diagnosis: HYPERTENSION[ICD9: 401.9] Diagnosis: VISUAL DISTURBANCE[ICD9: 368.9] [facility] 81509 05/21/2012 ([id number]) OFFICE/OUTPATIENT VISIT EST Diagnosis: HYPERTENSION[ICD9: 401.9] Diagnosis: HYPOTHYROIDISM[ICD9: 244.9] Diagnosis: KIDNEY TRANSPLANT STATUS[ICD9: V42.0] [facility] 67941 01/24/2012 OFFICE/OUTPATIENT VISIT EST Diagnosis: DIZZINESS/VERTIGO[ICD9: 780.4] Diagnosis: HYPERTENSION[ICD9: 401.9] Galina VELASCO [facility] CPT-4: 55184 09/21/2011 ([id number]) OFFICE/OUTPATIENT VISIT EST Diagnosis: HYPERTENSION[ICD9: 401.9] Diagnosis: HYPOTHYROIDISM[ICD9: 244.9] Diagnosis: HYPERLIPIDEMIA NEC/NOS[ICD9: 272.4] Diagnosis: KIDNEY TRANSPLANT STATUS[ICD9: V42.0] [facility] 34076 09/12/2011 OFFICE/OUTPATIENT VISIT EST Diagnosis: HYPOTHYROIDISM[ICD9: 244.9] Diagnosis: HYPERTENSION[ICD9: 401.9] Diagnosis: CEPHALGIA[ICD9: 784.0] Galina CristobalKarol RICK R DO [facility] CPT-4: 23275 06/14/2011 OFFICE/OUTPATIENT VISIT EST Diagnosis: HYPERTENSION[ICD9: 401.9] Diagnosis: PHARYNGITIS, ACUTE[ICD9: 462] Diagnosis: HYPOTHYROIDISM[ICD9: 244.9] Galina DENNISONQUEMARINO RIVAS DO [facility] CPT-4: 24338 03/03/2011 OFFICE/OUTPATIENT VISIT EST Diagnosis: HYPOTHYROIDISM[ICD9: 244.9] Diagnosis: KIDNEY TRANSPLANT STATUS[ICD9: V42.0] Diagnosis: HYPERTENSION[ICD9: 401.9] Diagnosis: SINUSITIS, ACUTE[ICD9: 461.9] Galina CristobalKarol LUIS [facility] CPT-4: 71822 01/27/2011 ([id number]) OFFICE/OUTPATIENT VISIT EST Galina Oreranjanashravan MCCLELLAN SKarol DOLORES [employer] [facility] CPT-4: 43140 12/02/2010 Plan of Care Planned Activity Notes Codes Status Date Visit Diagnosis Plan: Right lower quadrant pain Discus sal: Check Stat UA, CBC, ESR, CMP Stay NPO If WBC or ESR elevated will need to proceed with CT scan of abdomen/pelvis ICD-9 : 789.03 ICD-10 : R10.31 05/20/2019 Appointment: Galina Smith [facility]Ptel[phone] [id number] [facility] 05/20/2019 Visit Diagnosis Plan: Essential (primary) hypertension Discussion: Noncompliant Start amlodopine 5mg daily ICD-9 : 401.9 ICD-10 : I10 02/26/2019 Visit Diagnosis Plan: Mixed hyperlipidemia Discussion: Start atorvastatin 80mg daily ICD-9 : 272.4 ICD-10 : E78.2 02/26/2019 Visit Diagnosis Plan: 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 NO SHOW - FORGIVE N 02/19/2019 Appointment: Galina Smith WPtel: [address] [place] [address] LAB 08/24/2018 Appointment: Galina Smith WPtel: [address] [place] [address] LAB 06/29/2018 Visit Diagnosis Plan: Epigastric pain [...] he had labs done in dec at [facility]. will obtain lab results and order additional labs as needed. ICD-9 : 250.02 ICD-10 : E11.65 06/26/2018 Appointment: Coleen Frey [address] [place] [address] ACUTE ILLNESS 06/26/2018 Visit Diagnosis Plan: Right [...] ICD-10 : E11.40 02/06/2018 Appointment: Coleen Frey [address] [place], [place] [phone] ACUTE ILLNESS 02/06/2018 Patient Education: Patient Medication [...] ICD-10 : I10 11/02/2017 Appointment: Coleen Frey [address] [place], [place] [phone] FOLLOW UP 11/02/2017 Patient Education: Patient Medication [...] E11.59 07/27/2017 Visit Diagnosis Plan: Encounter for [facility] adult medical examination with abnormal findings Discussion: patient deferred influenza v accine at this time, received tdap shot. routine labs performed earlier today so will obtain results from gabriel osorio. ICD-9 : V70.0 ICD-10 : Z00.01 07/27/2017 Appointment: Coleen Frey [address] [place], [place] [phone] Annual Well Visit 07/27/2017 Patient Education: Patient [...] : B35.3 04/05/2017 Appointment: [facility]rey [address] [facility] [facility] 04/05/2017 Patient Education: Patient Medication Summary Completed 04/05/2017 Patient Education: Patient Medication Summary Completed 04/05/2017 Care Plan: CBC Pending 04/05/2017 Care Plan: LIPID PANEL LOINC : 69581-8 Pending 04/05/2017 Care Plan: COMPREH[place]AB[place] : [address]4546-1 Pending 04/05/2017 Visit Plan: Patient admits that [...] Appointment: Galina Smith WPtel: [phone] [id number] 06/16 lm-sp 06/20 lm ~sl FOLLOW UP 06/20/2016 Patient Education: Patient Medication Summary Completed 06/20/2016 Patient Education: Patient Medication Summary Completed 05/04/2016 Care Plan: COMPREH[place]AB[place] : 63235-7 Pending 05/04/2016 Care Plan: CBC Pending 05/04/2016 Care Plan: LIPID PANEL LOINC : 33290-0 Pending 05/04/2016 Care Plan: A1C HPLC LOINC : 77928-1 Pending 05/04/2016 Visit Plan: Discussed with Dr Luis stephens as above while awaiting specialist to return his call Push fluids Follow up celine if not improving 02/16/2016 Appointment: Missy Dc [address] [place] [address] ACUTE ILLNESS 02/16/2016 Patient Education: Patient Medication Summary Completed 02/16/2016 Visit Plan: Check CMP, TSH, HbA1C, magne sium, UA now Hydrate and monitor blood sugar Use powerade zero in conjunction with water to stay hydrated Discussed elevated blood sugar can cause cramping as well 12/03/2015 Appointment: Galina Smith WPtel: [address] [place] [address] ACUTE ILLNESS 12/03/2015 Patient Education: Patient Medication Summary Completed 12/03/2015 Visit Plan: Labs completed this am in [facility] but do not have results yet. Start Lyrica 75mg PO bid Will Call in a week and let know if pain is improved. 06/24/2015 Appointment: Alejandra Billy WPtel: [address] [place] [address] ACUTE ILLNESS 06/24/2015 Patient Education: Patient Medication Summary Completed 06/24/2015 Patient Education: Lyrica - 18+ - No MA NE Completed 06/24/2015 Visit Plan: Saline nasal flushes prn. Ty lenol/Motrin prn headache. Notify if persists/symptoms worsening. Obtain most recent lab Warned of increased BS with prednisone--has sliding scale to use 06/11/2015 Appointment: Galina Smith WPtel: [address] [place] [address] 06/10/15 vm cn....06/10/15 appt confirmed cn Cara ual Well Visit 06/11/2015 Patient Education: Patient Medication Summary Completed 06/11/2015 Appointment: Galina Smith WPtel: [address] [place] [address] FOLLOW UP 10/15/2014 Patient Education: Patient Medication Summary Completed 09/03/2014 Care Plan: COMPREH[place]AB[place] : [address]-2 Ordered 09/03/2014 Visit Plan: Obtain most recent lab resul ts Will likely need HbA1C and Lipids if were not done Accuchecks q AC and HS 07/17/2014 Appointment: Galina Smith WPtel: [address] [place] [address] FOLLOW UP 07/17/2014 Patient Education: Patient Medication Summary Completed 07/17/2014 Appointment: Galina Smith WPtel: [address] [place] [address] 01/29 01/30 NO SHOW FOLLOW UP 01/30/2014 Visit Plan: Check CMP, HbA1C, CBC, Lipid s Pt sees transplant doctor next month Pt is currently just using insulin prn and monitering BS 10/31/2013 Appointment: Galina Smith WPtel: [address] [place] [address] FOLLOW UP 10/31/2013 Patient Education: Patient Medication Summary Completed 10/31/2013 Visit Plan: Continue current meds and ac uchecks 08/01/2013 Appointment: Galina Smith WPtel: [address] [place], [place] [phone] 07/31 VM FOLLOW UP 08/01/2013 Patient Education: Patient Medication Summary Completed 08/01/2013 Appointment: Alejandra Billy WPtel: [address] [place] [address] ACUTE ILLNESS 07/30/2013 Patient Education: Patient Medication Summary Completed 07/30/2013 Visit Plan: Restart Diovan--pt says need s PA Continue fluoxetine at 20mg daily 05/30/2013 Appointment: Galina Smith WPtel: [address] [place], [place] [phone] FOLLOW UP 05/30/2013 Patient Education: Patient Medication Summary Completed 05/30/2013 Appointment: Galina Smith WPtel: [address] [place], [place] [phone] [place] has appt following day FOLLOW UP 3 Visit Plan: Restart Diovan and Amlodopin e as has been out--new rx sent out Trial of Fluoxetine 20mg q AM Stress [employer]ucers 04/29/2013 Appointment: Galina Smith WPtel: [address] [place] [address] 04/26 MOM made appt. confirmed monday ACUTE ILL NESS 04/29/2013 Patient Education: Patient Medication Summary Completed 04/29/2013 Visit Plan: Continue current meds and ac cuchecks Pt going for fasting lab next month 02/27/2013 Appointment: Galina Smith WPtel: [address] [place], [place] [phone] 02/27/2013 Patient Education: Patient Medication Summary Completed 02/27/2013 Appointment: Viky Acosta WPtel: [address] [place], [place] [phone] 01/01/2013 Patient Education: Patient Medication Summary Completed 01/01/2013 Visit Plan: Continue current meds Check fasting lab next week 11/27/2012 Appointment: Galina Smith WPtel: [address] [place], [place] [phone] FOLLOW UP 11/27/2012 Patient Education: Patient Medication Summary Completed 11/27/2012 Visit Plan: Lab discussed Continue curre nt meds and accuchecks Pt sees transplant doctor in in October Check fasting lab and fwup in 3mos 08/28/2012 Appointment: Galina Smith WPtel: [address] [place], [place] [phone] 08/27 FOLLOW UP 08/28/2012 Patient Education: Patient Medication Summary Completed 08/28/2012 Appointment: Galina Smith WPtel: [address] [place], [place] [phone] [facility] 08/20/2012 Patient Education: Patient Medication Summary Completed 08/20/2012 Visit Plan: Continue levemir at current dose with accuchecks Use apidra with sliding scale Check Chem 7 and HbA1C in 2mos 07/03/2012 Appointment: Galina Smith WPtel: [address] [place], [place] [phone] 07/02 FOLLOW UP 07/03/2012 Patient Education: Patient [...] 320mg daily 06/21/2012 Appointment: Galina Smith WPtel: [address] [place], [place] [phone] ACUTE ILLNESS 06/21/2012 Patient Education: Patient Medication Summary Completed 06/21/2012 Visit Plan: Increase Levemir to 75 u sc q PM Continue sliding scale insulin with accuchecks q AC and HS Call in 1wk with BS readings 05/30/2012 Appointment: Galina Smith WPtel: [address] [place], [place] [phone] [place] [address] Follow Up 05/30/2012 Patient Education: Patient Medication Summary Completed 05/30/2012 Appointment: Galina Smith WPtel: [address] [place], [place] [phone] 05/21 - cancelled appointment for 05/22 because PT was worke d in on 05/21 FOLLOW UP 05/22/2012 Appointment: Galina Smith WPtel: [address] [place], [place] [phone] WORK IN 05/21/2012 Appointment: Galina Smith WPtel: [address] [place] [address] [place] LAB 05/21/2012 Patient Education: Patient Medication Summary Completed 05/21/2012 Visit Plan: Continue current meds Obtain most recent lab done at [facility] 01/24/2012 Appointment: Galina Smith WPtel: [address] [place] [address] voicemail FOLLOW UP 01/24/2012 Patient Education: Patient Medication Summary Completed 01/24/2012 Visit Plan: Decrease Norvasc to 2.5mg da anne marie Check CBC, CMP, TSH, Free T4 09/21/2011 Appointment: Galina Smith WPtel: [address] [place] [address] ACUTE ILLNESS 09/21/2011 Patient Education: Patient Medication Summary Completed 09/21/2011 Visit Plan: Continue Diovan at current d ose Add amlodopine Check Lipids/LFTs with next lab 09/12/2011 Appointment: Galina Smith WPtel: [address] [place] [address] FOLLOW UP 09/12/2011 Patient Education: Patient Medication Summary Completed 09/12/2011 Visit Plan: Increase Diovan to 320mg po daily Check TSH and Free T4 with kidney lab next week 06/14/2011 Appointment: Galina Smith WPtel: [address] [place] [address] FOLLOW UP 06/14/2011 Patient Education: Patient Medication Summary Completed 06/14/2011 Visit Plan: Z-pack then new toothebrush Start Diovan 03/03/2011 Appointment: Galina Smith WPtel: [address] [place] [address] ACUTE ILLNESS 03/03/2011 Patient Education: Patient Medication Summary Completed 03/03/2011 Appointment: Galina Smith WPtel: [address] [place], [place] [phone] [place] FOLLOW UP 01/27/2011 Patient Education: Patient Medication Summary Completed 01/27/2011 Visit Plan: Continue current meds and pr oceed with lab per kidney transplant doctor Start Synthroid at 50mcg po daily 12/02/2010 Appointment: Gal[facility] Smith [facility]Ptel[facility] [phone] [facility] [facility] 12/02/2010 Patient Education: Patient Medication Summary Completed 12/02/2010 Appointment: Galina Smith WPtel: [phone] [facility] Suture Removal 10/20/2009 Patient Education: Patient Medication Summary Completed 10/20/2009 Referral: Rudolph Núñez WPtel: [address] [id number] [place] Referral Initiated Instructions Comment . Patient [...] well . [facility] completed [facility] do not have results yet. Start [...] meds Obtain most recent lab done at [facility] . Decrease Norvasc to 2.5mg daily [...]
--- OUTSIDE RECORDS SUMMARY | 2019-08-21 00:10 | XMS REPORT | CCD ---
Author Author Cuauhtemoc Smith D.O. Organization [facility] Address [address] [place] [address] Phone Care Team Providers Care Carpenter'S Assistant Name Role Phone Galina Smith D.O., PP Unavailable CCM Unavailable Summary Purpose Interface Exchange Insurance Providers Payer name Policy type / Coverage type Covered libertarian ID Effective Begin Date Effective End Date Blue Cross Blue Shield Blue Cross/Blue Shield [id number] 2017 Unknown Family History Family History data not found Social History Social History Element Codes Description Effective Dates Tobacco history SNOMED CT: [id number] Currently uses smokeless to bacco 06/14/2011 Allergies, [...] ICD-9: V58.44 ICD-10: Z48.298 08/24/2018 Active Other custodial (current) drug therapy ICD-9: V58.69 ICD-10: Z79.899 [...] Fill Instructions cephalexin 500 mg capsule RxNorm: 048016 1 Capsule(s) Oral thre e times a day 05/20/2019 05/26/2019 Active Prograf 0.5 mg capsule RxNorm: 118041 4 Capsule(s) Oral two skinny es a day 05/20/2019 No Stop Date Active pantoprazole 40 mg tablet,delayed release RxNorm: 096016 1 Tablet(s) Oral QD for stomach 05/20/2019 09/17/2019 Active CellCept 500 mg tablet RxNorm: 850704 2 Tablet(s) Oral two time s a day 05/20/2019 No Stop Date Active cephalexin 500 mg capsule RxNorm: 053117 1 Capsule(s) Oral thre e times a day 05/20/2019 05/19/2019 Inactive Levemir FlexTouch U-100 Insulin 100 unit/mL (3 mL) sub cutaneous pen RxNorm: 914997 INJECT 90 UNITS SUBCUTANEOUSLY TWICE DAILY 05/11/[address] op Date Active Levemir FlexTouch U-100 Insulin 100 unit/mL (3 mL) sub cutaneous pen RxNorm: 633563 100 Unit(s) Subcutaneous two times a day 03/04/2019 06/02/2019 Active Levemir FlexTouch U-100 Insulin 100 unit/mL (3 mL) sub cutaneous pen RxNorm: 129693 90 Unit(s) SQ BID 100 Unit(s) Subcutaneous two times a day 0 03/04/2019 03/04/2019 Inactive amlodipine 5 mg tablet RxNorm: 660819 1 Tablet(s) PO QD for BP 02/1008/24/2019 Active atorvastatin 80 mg tablet RxNorm: 622311 1 Tablet(s) PO QD 02/27/2005/26/2019 Active Novolog Flexpen U-100 Insulin aspart 100 unit/mL (3 mL ) subcutaneous RxNorm: 1251194 INJECT SUBCUTANEOUSLY NEEDED PER SLIDING SCALE 02/22/2019 No Stop Date Active Levemir FlexTouch U-100 Insulin 100 unit/mL (3 mL) sub cutaneous pen RxNorm: 325939 90 Unit(s) SQ BID 01/08/2019 03/03/2019 Inactive Levemir FlexTouch U-100 Insulin 100 unit/mL (3 mL) sub cutaneous pen RxNorm: 666764 90 Unit(s) SQ BID 12/04/2018 12/03/2018 Inactive Levemir FlexTouch U-100 Insulin 100 unit/mL (3 mL) sub cutaneous pen RxNorm: 160451 90 Unit(s) SQ BID 12/04/2018 01/07/2019 Inactive Levemir FlexTouch U-100 Insulin 100 unit/mL (3 mL) sub cutaneous pen RxNorm: 393527 70 Unit(s) SQ BID 10/26/2018 12/04/2018 Inactive Levemir FlexTouch U-100 Insulin 100 unit/mL (3 mL) sub cutaneous pen RxNorm: 809734 GIVE 90 UNITS SUBCUTANEOUSLY TWICE DAILY 10/08/2018 10/26/2018 Inactive Levemir FlexTouch U-100 Insulin 100 unit/mL (3 mL) sub cutaneous pen RxNorm: 427913 90 Unit(s) SQ BID 07/30/2018 10/07/2018 Inactive Levemir FlexTouch U-100 Insulin 100 unit/mL (3 mL) sub cutaneous pen RxNorm: 897447 90 Unit(s) SQ BID 07/06/2018 07/29/2018 Inactive Pen Needle 31 gauge x 5/16" RxNorm: USE DIRECTED 03/21/2018 No Stop Date Active Levemir FlexTouch U-100 Insulin 100 unit/mL (3 mL) sub cutaneous pen RxNorm: 138521 80 Unit(s) SQ BID 02/15/2018 07/06/2018 Inactive Levemir FlexTouch U-100 Insulin 100 unit/mL (3 mL) sub cutaneous pen RxNorm: 545061 INJECT 105 UNITS SUBCUTANEOUSLY IN THE EVENING 01/24/2018 0 02/15/2018 Inactive Levemir FlexTouch U-100 Insulin 100 unit/mL (3 mL) sub cutaneous pen RxNorm: 900517 INJECT 105 UNITS SUBCUTANEOUSLY IN THE EVENING 12/26/2017 0 01/23/2018 Inactive Novolog Flexpen U-100 Insulin aspart 100 unit/mL (3 mL ) subcutaneous RxNorm: 3591544 INJECT SUBCUTANEOUSLY NEEDED PER SLIDING SCALE 12/25/2017 02/21/2019 Inactive Levemir FlexTouch U-100 Insulin 100 unit/mL (3 mL) sub cutaneous pen RxNorm: 524900 70 Unit(s) SQ BID 11/03/2017 11/03/2017 Inactive Levemir FlexTouch U-100 Insulin 100 unit/mL (3 mL) sub cutaneous pen RxNorm: 972276 105 Unit(s) SQ QPM 11/02/2017 11/02/2017 Inactive Levemir FlexTouch U-100 Insulin 100 unit/mL (3 mL) sub cutaneous pen RxNorm: 496197 105 Unit(s) SQ QPM Needs updated labs 11/01/2017 11/01/2017 [place] Levemir FlexTouch U-100 Insulin 100 unit/mL (3 mL) sub cutaneous pen RxNorm: 077159 Unit(s) 105 Unit(s) SQ QPM 09/18/2017 09/18/2017 Inactive Levemir FlexTouch U-100 Insulin 100 unit/mL (3 mL) sub cutaneous pen RxNorm: 260119 105 Unit(s) SQ QPM 08/07/2017 09/18/2017 Inactive cephalexin 500 mg capsule RxNorm: 319235 1 Capsule(s) PO BID 201708/02/2017 Inactive Levemir FlexTouch U-100 Insulin 100 unit/mL (3 mL) sub cutaneous pen RxNorm: 587896 105 Unit(s) SQ QPM 06/07/2017 06/07/2017 Inactive Levemir FlexTouch 100 unit/mL (3 mL) subcutaneous insulin pe n RxNorm: 976301 105 Unit(s) SQ QPM 05/11/2017 06/07/2017 Inactive Lipitor 40 mg tablet RxNorm: 031188 1 Tablet(s) PO QD 04/05/201703/13 Inactive nystatin 100,000 unit/gram topical ointment RxNorm: 667063 1 Gr am(s) TOP BID 04/05/2017 05/02/2017 Inactive Lipitor 40 mg tablet RxNorm: 674720 1.5 Tablet(s) PO QD 04/05/2017 Inactive Diovan 320 mg tablet RxNorm: 976818 1 Tablet(s) PO QD 04/05/201702/10 Inactive Levemir FlexTouch 100 unit/mL (3 mL) subcutaneous insulin pe n RxNorm: 953351 105 Unit(s) SQ QPM 04/05/2017 04/05/2017 Inactive Levemir FlexTouch 100 unit/mL (3 mL) subcutaneous insulin pe n RxNorm: 333488 90 Unit(s) SQ QPM LAST REFILL UNTIL LABS AND APPOINTMENT!!!! 04/05/2017 Inactive Novolog Flexpen 100 unit/mL subcutaneous RxNorm: 1603236 Unit(s) INJECT SUBCUTANEOUSLY NEEDED PER SLIDING SCALE---NEEDS UPDATED LABS 03/07/2017 12/03/2018 Inactive Levemir FlexTouch 100 unit/mL (3 mL) subcutaneous insulin pe n RxNorm: 812359 90 Unit(s) SQ QPM LAST REFILL UNTIL LABS AND APPOINTMENT!!!! 02/17/2017 Inactive Levemir FlexTouch 100 unit/mL (3 mL) subcutaneous insulin pe n RxNorm: 752961 90 Unit(s) SQ QPM NEEDS FASTING LABS AND APPOINTMENT BEFORE FURTHER REFILLS 12/22/2016 02/17/2017 Inactive Novolog Flexpen U-100 Insulin aspart 100 unit/mL subcutaneou s RxNorm: 4125357 Unit(s) INJECT SUBCUTANEOUSLY NEEDED PER SLIDING SCALE---NEEDS UPDATED LABS 11/28/2016 03/07/2017 Inactive Levemir FlexTouch 100 unit/mL (3 mL) subcutaneous insulin pe n RxNorm: 059886 90 Unit(s) VAG QPM 11/08/2016 12/22/2016 Inactive Levemir FlexTouch 100 unit/mL (3 mL) subcutaneous insulin pe n RxNorm: 928304 90 Unit(s) VAG QPM 11/08/2016 12/21/2016 Inactive Levemir FlexTouch 100 unit/mL (3 mL) subcutaneous insulin pe n RxNorm: 957936 80 Unit(s) VAG QPM 09/05/2016 11/08/2016 Inactive Levemir FlexTouch 100 unit/mL (3 mL) subcutaneous insulin pe n RxNorm: 310462 85 Unit(s) SQ QD 07/22/2016 09/05/2016 Inactive Levemir FlexTouch 100 unit/mL (3 mL) subcutaneous insulin pe n RxNorm: 098093 85 Unit(s) SQ QD 07/04/2016 07/21/2016 Inactive Levemir FlexTouch 100 unit/mL (3 mL) subcutaneous insulin pe n RxNorm: 165651 85 Unit(s) SQ QD 06/14/2016 06/19/2016 Inactive Levemir FlexTouch 100 unit/mL (3 mL) subcutaneous insulin pe n RxNorm: 054137 85 Unit(s) SQ QD 05/03/2016 05/22/2016 Inactive Levemir FlexTouch 100 unit/mL (3 mL) subcutaneous insulin pe n RxNorm: 261311 85 Unit(s) SQ QD 05/03/2016 05/02/2016 Inactive Levemir FlexTouch 100 unit/mL (3 mL) subcutaneous insulin pe n RxNorm: 455622 85 Unit(s) SQ QD 03/14/2016 04/22/2016 Inactive cefuroxime axetil 250 mg tablet RxNorm: 003709 1 Tablet(s) PO BID 0 02/16/2016 02/25/2016 Inactive Levemir FlexTouch 100 unit/mL (3 mL) subcutaneous insulin pe n RxNorm: 537822 85 Unit(s) SQ QD 02/03/2016 03/13/2016 Inactive Levemir FlexTouch 100 unit/mL (3 mL) subcutaneous insulin pe n RxNorm: 342197 85 Unit(s) SQ QD 12/07/2015 02/02/2016 Inactive Pen Needle 31 gauge x 5/16" RxNorm: USE DIRECTED 11/19/201510/2015 Inactive Levemir FlexTouch 100 unit/mL (3 mL) subcutaneous insulin pe n RxNorm: 228576 INJECT 75 UNITS SUBCUTANEOUSLY ONCE DAILY; NEED LABS AND APPT 10/06/2015 12/04/2015 Inactive Novolog Flexpen 100 unit/mL subcutaneous RxNorm: 2581092 INJECT SUBCUTANEOUSLY NEEDED PER SLIDING SCALE 09/15/2015 11/28/2016 Inactive Levemir FlexTouch 100 unit/mL (3 mL) subcutaneous insulin pe n RxNorm: 933268 75 Unit(s) SQ QD Needs lab and appointment 07/13/2015 10/05/2015 Inactive Lyrica 75 mg capsule RxNorm: 068019 1 Capsule(s) PO BID 06/24/2015 Inactive Levemir FlexTouch 100 unit/mL (3 mL) subcutaneous insulin pe n RxNorm: 539504 75 Unit(s) SQ QD Needs lab and appointment 06/23/2015 07/12/2015 Inactive Novolog Flexpen 100 unit/mL subcutaneous RxNorm: 2713798 Unit(s) SQ as needed Sliding scale 06/15/2015 09/14/2015 Inactive Flonase Allergy Relief 50 mcg/actuation nasal spray,suspensi on RxNorm: 2 [place] NASAL QHS 06/11/2015 12/02/2015 Inactive prednisone 20 mg tablet RxNorm: 326849 1 Tablet(s) PO T ID for 3 days then 1 po BID for 3 days then one daily for 3 days 06/11/2015 12/02/2015 Inactiv e cefdinir 300 mg capsule RxNorm: 627776 2 Capsule(s) PO QD 06/11/2015 06/24/2015 Inactive Levemir FlexTouch 100 unit/mL (3 mL) subcutaneous insulin pe n RxNorm: 696639 75 Unit(s) SQ QD Needs lab and appointment 05/29/2015 06/22/2015 Inactive Novolog 100 unit/mL subcutaneous solution RxNorm: 958749 Unit(s) SQ Inject as directed using sliding scale B 05/29/2015 12/03/2018 Inactive Levemir Flexpen 100 unit/mL (3 mL) solution subcutaneo us insulin pen RxNorm: 969785 INJECT 75 UNITS SUBCUTANEOUSLY EVERY DAY 05/11/2015 05/29/2015 Inactive Levemir FlexTouch 100 unit/mL (3 mL) subcutaneous insulin pe n RxNorm: 528865 75 Unit(s) SQ QHS 03/30/2015 12/03/2018 Inactive Levemir FlexTouch 100 unit/mL (3 mL) subcutaneous insulin pe n RxNorm: 108016 75 Unit(s) SQ QHS 03/09/2015 03/29/2015 Inactive Contour Test Strips RxNorm: Miscellaneous 01/27/2015 No Stop Date Ac tive Novolog 100 unit/mL subcutaneous solution RxNorm: 196923 Unit(s) SQ Inject as directed using sliding scale B 01/27/2015 05/29/2015 Inactive Levemir Flexpen 100 unit/mL (3 mL) solution subcutaneo us insulin pen RxNorm: 173985 INJECT 75 UNITS SUBCUTANEOUSLY EVERY DAY 11/05/2014 03/09/2015 Inactive Levemir Flexpen 100 unit/mL (3 mL) solution subcutaneo us insulin pen RxNorm: 558044 INJECT 75 UNITS SUBCUTANEOUSLY EVERY DAY 08/13/2014 10/31/2014 Inactive Novolog 100 unit/mL subcutaneous solution RxNorm: 432229 Unit(s) SQ Inject as directed using sliding scale B 07/15/2014 01/26/2015 Inactive Apidra SoloStar 100 unit/mL subcutaneous insulin pen RxNorm: 304271 Unit(s) SQ INJECT DIRECTED USING SLIDING SCALE B 07/11/2014 07/14/2014 Inactiv e Diovan 320 mg tablet RxNorm: 915060 1 Tablet(s) PO QD 06/10/201405/13 Inactive Apidra SoloStar 100 unit/mL subcutaneous insulin pen RxNorm: 851603 Unit(s) SQ INJECT DIRECTED USING SLIDING SCALE B 04/18/2014 07/10/2014 Inactiv e Levemir Flexpen 100 unit/mL (3 mL) solution subcutaneo us insulin pen RxNorm: 606253 Unit(s) SQ INJECT 75 UNITS SUBCUTANEOUSLY EVERY DAY 09/02/27/2014 Inactive [SAVINGS FOR UNINSURED PATIE NTS -- BIN:[id number], PCN: [id number], Group: [id number], ID# [id number], Process claim through [employer], for questions: . THIS IS NOT INSURANCE.] Apidra SoloStar 100 unit/mL subcutaneous insulin pen RxNorm: 685473 Unit(s) SQ INJECT DIRECTED USING SLIDING SCALE B 09/05/2013 04/17/2014 Inactiv e Pen Needle 31 gauge x 5/16" RxNorm: Miscellaneou s USE DIRECTED WITH LEVEMIR AND APIDRA 08/23/2013 11/18/2015 Inactive Prograf 1 mg capsule RxNorm: 273992 2 Capsule(s) PO BID Generic OK to fill 08/21/2013 05/19/2019 Inactive Diovan 320 mg tablet RxNorm: 323928 1 Tablet(s) PO QD 05/30/201305/12 Inactive fluoxetine 20 mg tablet RxNorm: 810542 1 Tablet(s) PO QAM 05/30/2013 07/31/2013 Inactive fluoxetine 20 mg tablet RxNorm: 248931 1 Tablet(s) PO QAM 04/29/2013 05/29/2013 Inactive amlodipine 5 mg tablet RxNorm: 167644 1 Tablet(s) PO QD 04/29/2013 Inactive ketoconazole 2 % topical cream RxNorm: 282199 Application TOP B ID for 2-4wks 04/29/2013 05/12/2013 Inactive Diovan 320 mg tablet RxNorm: 687744 1 Tablet(s) PO QD 04/29/201305/14 Inactive Apidra SoloStar 100 unit/mL subcutaneous insulin pen RxNorm: 818650 Unit(s) SQ Sliding Scale B 02/19/2013 09/05/2013 Inactive Levemir Flexpen 100 unit/mL (3 mL) solution subcutaneo us insulin pen RxNorm: 181005 Insulin Pen SQ INJECT 75 UNITS SUBCUTANEOUSLY EVERY DAY 01/1002/28/2014 Inactive Septra DS 800 mg-160 mg tablet RxNorm: 282266 1 Tablet(s) PO BI D antibiotic 01/01/2013 01/07/2013 Inactive ketoconazole 2 % topical cream RxNorm: 364170 1 Application TOP BID 01/01/2013 01/14/2013 Inactive Levemir Flexpen 100 unit/mL (3 mL) Sub-Q Insulin Pen RxNorm: 638660 Unit(s) SQ INJECT 75 UNITS SUB-Q ONCE A DAY 12/07/2012 No Stop Date Active Levemir Flexpen 100 unit/mL (3 mL) Sub-Q Insulin Pen RxNorm: 950851 Unit(s) SQ INJECT 75 UNITS SUB-Q ONCE A DAY 10/22/2012 12/07/2012 Inactive Levemir Flexpen 100 unit/mL (3 mL) Sub-Q Insulin Pen RxNorm: 252579 75 Unit(s) SQ QHS 08/20/2012 10/22/2012 Inactive Diovan 320 mg tablet RxNorm: 624284 1 Tablet(s) PO QD 07/30/201204/12 Inactive Levemir Flexpen 100 unit/mL (3 mL) Sub-Q Insulin Pen RxNorm: 690969 Insulin Pen SQ INJECT 75 UNITS SUB-Q ONCE A DAY 07/30/2012 10/21/2012 Inactive Levemir Flexpen 100 unit/mL (3 mL) Sub-Q Insulin Pen RxNorm: 283944 75 Unit(s) SQ QHS 07/30/2012 08/19/2012 Inactive Levemir Flexpen 100 unit/mL (3 mL) Sub-Q Insulin Pen RxNorm: 106611 75 Unit(s) SQ QHS 07/30/2012 07/29/2012 Inactive Diovan 320 mg tablet RxNorm: 637263 1 Tablet(s) PO QD 06/21/201202/2013 Inactive Diovan 320 mg tablet RxNorm: 465970 1 Tablet(s) PO QD 06/21/201202/2013 Inactive Diovan 320 mg tablet RxNorm: 387474 1 Tablet(s) PO QD 06/21/201207/13 Inactive CellCept 250 mg capsule RxNorm: 521447 4 Capsule(s) PO BID 06/14/19 13 05/19/2019 Inactive Prograf 1 mg capsule RxNorm: 356942 2 Capsule(s) PO BID Generic OK to fill 06/14/2012 06/20/2012 Inactive Apidra SoloStar 100 unit/mL Sub-Q Insulin Pen RxNorm: 152101 Unit(s) SQ Sliding Scale B 06/13/2012 12/03/2018 Inactive Levemir Flexpen 100 unit/mL (3 mL) Sub-Q Insulin Pen RxNorm: 464917 75 Unit(s) SQ QD 06/13/2012 No Stop Date Active Apidra SoloStar 100 unit/mL Sub-Q Insulin Pen RxNorm: 506573 Unit(s) SQ Sliding Scale B 06/13/2012 No Stop Date Active One Touch Delica Lancets RxNorm: Miscellaneous 06/13/2012 04/04/2017 Inactive Lipitor 40 mg tablet RxNorm: 319222 1 Tablet(s) PO QD 05/30/201208/10 Inactive Diovan 320 mg tablet RxNorm: 215777 1 Tablet(s) PO QD 05/30/201202/2013 Inactive Tricor 145 mg tablet RxNorm: 844814 1 Tablet(s) PO QD 05/30/201208/10 Inactive Lipitor 20 mg Tab RxNorm: 574109 1 Tablet(s) PO QD 09/12/2011 012 Inactive Synthroid 50 mcg Tab RxNorm: 223486 1 Tablet(s) PO QD 09/12/201111/11 Inactive Diovan 320 mg tablet RxNorm: 110982 1 Tablet(s) PO QD 09/12/201102/11 Inactive amlodipine 5 mg tablet RxNorm: 385409 1 Tablet(s) PO QD 09/12/2011 Inactive Diovan 320 mg Tab RxNorm: 657804 1 Tablet(s) PO QD 06/14/2011 012 Inactive Diovan 160 mg Tab RxNorm: 563773 1 Tablet(s) PO QD 03/03/2011 012 Inactive cefdinir 300 mg Cap RxNorm: 090313 2 Capsule(s) PO QD 01/27/201101/11 Inactive Synthroid 50 mcg Tab RxNorm: 023708 1 Tablet(s) PO QD 12/02/201001/11 Inactive Multivitamin & Mineral Formula Tab RxNorm: 1 Tablet(s) PO QD No St art Date Active Miralax 17 gram/dose oral powder RxNorm: 954713 PO BID in 6-8 o unces of water No Start Date Active Tylenol Extra Strength 500 mg tablet RxNorm: 484460 Tablet(s) P O as needed No Start Date Active Tricor Oral RxNorm: Oral No Start Date 05/29/2012 Inactive MagOx 400 mg tablet RxNorm: 363259 1 Tablet(s) PO QD No Start Date Inactive sodium bicarbonate Oral RxNorm: Oral No Start Date 06/19/2016 I nactive Fish Oil 1,000 mg capsule RxNorm: 1 Capsule(s) PO QD No Start Date 04/04/2017 Inactive Novofine Misc RxNorm: Miscellaneous No Start Date 06/12/2012 Inactiv e Percocet 5 mg-325 mg tablet RxNorm: 7703857 Tablet(s) PO as need ed Dr Parson No Start Date 04/04/2017 Inactive Contour Test Strips RxNorm: miscellaneous No Start Date 01/26/2015 I nactive Prograf 1 mg capsule RxNorm: 806700 2 Capsule(s) PO BID No Start Da te 06/13/2012 Inactive Zantac 150 mg Tab RxNorm: 248612 Tablet(s) PO PRN No Start Date 12/01 Inactive Levemir FlexTouch 100 unit/mL (3 mL) subcutaneous insulin pe n RxNorm: 397960 75 Unit(s) SQ QHS No Start Date 03/08/2015 Inactive CellCept 250 mg capsule RxNorm: 266515 4 Capsule(s) PO BID No Start Date 06/13/2012 Inactive Novolog 100 unit/mL subcutaneous solution RxNorm: 883784 Unit(s) SQ Inject as directed using sliding scale B No Start Date 07/14/2014 Inactive Novolog Flexpen 100 unit/mL subcutaneous RxNorm: 1307732 Unit(s) SQ as needed Sliding scale No Start Date 06/14/2015 Inactive Apidra SoloStar 100 unit/mL Sub-Q Insulin Pen RxNorm: 543646 Unit(s) SQ Sliding Scale B No Start Date 06/12/2012 Inactive Levemir FlexTouch U-100 Insulin 100 unit/mL (3 mL) sub cutaneous pen RxNorm: 947206 70 Unit(s) SQ BID No Start Date 02/06/2018 Inactive Pen Needle 31 X 5/16" RxNorm: Miscellaneous No Start Date 08/23/2013 Inactive Synthroid 50 mcg Tab RxNorm: 114929 1 Tablet(s) PO QD No Start Date 0 09/11/2011 Inactive Levemir Flexpen 100 unit/mL (3 mL) Sub-Q Insulin Pen RxNorm: 223337 70 Unit(s) SQ QHS No Start Date 07/29/2012 Inactive Levemir FlexTouch U-100 Insulin 100 unit/mL (3 mL) sub cutaneous pen RxNorm: 618527 80 Unit(s) SQ BID No Start Date 02/14/2018 Inactive Levemir FlexTouch 100 unit/mL (3 mL) subcutaneous insulin pe n RxNorm: 074750 80 Unit(s) SQ QPM No Start Date 09/04/2016 Inactive Lipitor 40 mg tablet RxNorm: 244716 1 Tablet(s) PO QD No Start Date 1 Inactive Ultram 50 mg tablet RxNorm: 161746 2 Tablet(s) PO TID as needed for pain No Start Date 06/10/2015 Inactive Prograf 1 mg Cap RxNorm: 065697 2 Capsule(s) PO BID No Start Date 02/2012 Inactive insulin needles (disposable) 32 x 5/16" RxNorm: Miscellaneous for use with flex pen No Start Date 04/04/2017 Inactive Levemir FlexTouch U-100 Insulin 100 unit/mL (3 mL) sub cutaneous pen RxNorm: 206642 90 Unit(s) SQ BID No Start Date 07/05/2018 Inactive Levemir Flexpen 100 unit/mL (3 mL) Sub-Q Insulin Pen RxNorm: 966360 65 Unit(s) SQ QD No Start Date 06/12/2012 Inactive pantoprazole 40 mg tablet,delayed release RxNorm: 699804 1 Tabl et(s) PO QD No Start Date 05/19/2019 Inactive Zithromax Z-Mateus 250 mg Tab RxNorm: 297336 Tablet(s) PO No Start Date 06/13/2011 Inactive as directed Lipitor 20 mg Tab RxNorm: 348451 1 Tablet(s) PO QD No Start Date [...] Date S vice Location GLYCOSYLATED HEMOGLOBIN TEST 45761 Hgb A1c 86246-7 13.9 % 0 02/27/2019 Unknown MEAN GLUC 0009488 Calc Mean Gluc 352 mg/dL 02/27/2019 Unkn own MICROALBUMIN URINE RANDOM 62174 U Microalbumin 2259.0 mg /L 02/26/2019 Unknown MICROALBUMIN URINE RANDOM 82182 U Creatinine 143 mg/dL 0 02/26/2019 Unknown MICROALBUMIN URINE RANDOM 46161 ALB/CR Ratio 1579.7 mg/g CR 02/26/2019 Unknown MAGNESIUM 10187 MAGNESIUM 1.4 mEq/L 02/19/2019 Unknown GFR CALC 2202469 GFR Non Afr Amr 37 mL/min 02/19/2019 Unk nown GFR CALC 0470479 GFR Afr Amr 45 mL/min 02/19/2019 Unknown LIPID GROUP 79901 Cholesterol 250 mg/dL 02/19/2019 Unkno wn LIPID GROUP 53000 Triglyceride 465 mg/dL 02/19/2019 Unkn own LIPID GROUP 86234 HDL CHOLESTEROL 30 mg/dL 02/19/2019 U nknown LIPID GROUP 83638 Chol/HDL Ratio 8.33 ratio 02/19/2019 U nknown LIPID GROUP 68584 NON-HDL Chol 220 mg/dL 02/19/2019 Unkn own LIPID GROUP 78118 LDL Cholesterol N/A Trig >400 019 Unknown LIPID GROUP 96240 Fasting Unknown 02/19/2019 Unknown COMPREHENSIVE METABOLIC 25155 AST 20 U/L 2018 Unknown COMPREHENSIVE METABOLIC 03196 ALT 30 U/L 2018 Unknown COMPREHENSIVE METABOLIC 24317 BUN 27 mg/dL 2018 Unknown COMPREHENSIVE METABOLIC 79942 ALBUMIN 3.7 g/dL 2018 Unknown COMPREHENSIVE METABOLIC 78468 CHLORIDE 105 mmol/L 02/19 Unknown COMPREHENSIVE METABOLIC 48265 Bili Total 0.5 mg/dL 02/19 Unknown COMPREHENSIVE METABOLIC 83244 ALK PHOS 79 U/L 2018 Unknown COMPREHENSIVE METABOLIC 24539 SODIUM 137 mmol/L 02/19 Unknown COMPREHENSIVE METABOLIC 33538 CREATININE 2.10 mg/dL 02/10 Unknown COMPREHENSIVE METABOLIC 26264 CALCIUM 9.5 mg/dL 2018 Unknown COMPREHENSIVE METABOLIC 48929 POTASSIUM 4.2 mmol/L 02/19 Unknown COMPREHENSIVE METABOLIC 71608 Total Protein 6.5 g/dL Unknown COMPREHENSIVE METABOLIC 44268 Glucose 202 mg/dL 2018 Unknown COMPREHENSIVE METABOLIC 61657 Bicarbonate 22 mmol/L 02/10 Unknown COMPREHENSIVE METABOLIC 28959 AGAP 10 mmol/L 2018 Unknown LIPID GROUP 72025 Cholesterol 320 mg/dL 08/27/2018 Unkno wn LIPID GROUP 11624 Triglyceride 444 mg/dL 08/27/2018 Unkn own LIPID GROUP 32832 HDL CHOLESTEROL 39 mg/dL 08/27/2018 U nknown LIPID GROUP 90308 Chol/HDL Ratio 8.21 ratio 08/27/2018 U nknown LIPID GROUP 62736 NON-HDL Chol 281 mg/dL 08/27/2018 Unkn own LIPID GROUP 69495 LDL Cholesterol N/A Trig >400 019 Unknown LIPID GROUP 20474 Fasting Unknown 08/27/2018 Unknown PHOSPHORUS [id number] PHOSPHORUS 2.1 mg/dL 08/24/2018 Unknown PROTEIN/CREAT URINE WITH RATIO 96495|20076 U Protein 515 mg/ dL 08/24/2018 Unknown PROTEIN/CREAT URINE WITH RATIO 17251|58369 U Creatinine 116 mg/dL 08/24/2018 Unknown PROTEIN/CREAT URINE WITH RATIO 96838|91568 Prot:Creat Rat 4440 mg/g 08/24/2018 Unknown MAGNESIUM 22113 MAGNESIUM 1.4 mEq/L 08/24/2018 Unknown GFR CALC 9845937 GFR Non Afr Amr 44 mL/min 08/24/2018 Unk nown GFR CALC 1611724 GFR Afr Amr 53 mL/min 08/24/2018 [place] [address] Glucose TNP:Unknown Can shaw Reason 08/24/2018 [place] [address] CREATININE TNP:Unknown Cancel Reason 08/24/2018 [place] [address] BUN TNP:Unknown Can shaw Reason 08/24/2018 [place] [address] SODIUM TNP:Unknown Can shaw Reason 08/24/2018 [place] [address] POTASSIUM TNP:Unknown Cancel Reason 08/24/2018 [place] [address] CHLORIDE TNP:Unknown Can shaw Reason 08/24/2018 [place] [address] Bicarbonate TNP:Unknow n Cancel Reason 08/24/2018 [place] [address] AGAP TNP:Unknown Can shaw Reason 08/24/2018 [place] [address] CALCIUM TNP:Unknown Can shaw Reason 08/24/2018 Unknown COMPREHENSIVE METABOLIC 45212 AST 21 U/L 2018 Unknown COMPREHENSIVE METABOLIC 44099 ALT 35 U/L 2018 Unknown COMPREHENSIVE METABOLIC 26526 BUN 25 mg/dL 2018 Unknown COMPREHENSIVE METABOLIC 21510 ALBUMIN 4.5 g/dL 2018 Unknown COMPREHENSIVE METABOLIC 24489 CHLORIDE 106 mmol/L 08/24 Unknown COMPREHENSIVE METABOLIC 06071 Bili Total 0.4 mg/dL 08/24 Unknown COMPREHENSIVE METABOLIC 74327 ALK PHOS 64 U/L 2018 Unknown COMPREHENSIVE METABOLIC 17455 SODIUM 141 mmol/L 08/24 Unknown COMPREHENSIVE METABOLIC 96046 CREATININE 1.81 mg/dL 08/10 Unknown COMPREHENSIVE METABOLIC 11681 CALCIUM 10.3 mg/dL 08/24 Unknown COMPREHENSIVE METABOLIC 85710 POTASSIUM 3.4 mmol/L 08/24 Unknown COMPREHENSIVE METABOLIC 14647 Total Protein 7.2 g/dL Unknown COMPREHENSIVE METABOLIC 25049 Glucose 101 mg/dL 2018 Unknown COMPREHENSIVE METABOLIC 73524 Bicarbonate 23 mmol/L 08/10 Unknown COMPREHENSIVE METABOLIC 65878 AGAP 12 mmol/L 2018 Unknown UA W/MICR 68132 UA Urine Appear Normal 08/24/2018 Unk nown UA W/MICR 85008 UA Protein 3+ 08/24/2018 Unknown UA W/MICR 53165 UA Hemoglobin Trace 08/24/2018 Unkno wn UA W/MICR 01467 UA Glucose 3+ 08/24/2018 Unknown UA W/MICR 91690 UA Ketones Negative 08/24/2018 Unknown UA W/MICR 23334 UA pH 6.0 08/24/2018 Unknown UA W/MICR 35368 U Spec [place] 1.025 08/24/2018 Unkn own UA W/MICR 09706 UA Bilirubin Negative 08/24/2018 Unknow n UA W/MICR 31193 UA Leuk Esteras Negative 08/24/2018 Unk nown UA W/MICR 76085 UA Nitrite NEG 08/24/2018 Unknown UA W/MICR 70559 UA WBC/hpf 1 08/24/2018 Unknown UA W/MICR 59937 UA RBC auto 12.9 /uL 08/24/2018 Unknown UA W/MICR 97407 UA RBC hpf 2 08/24/2018 Unknown UA W/MICR 18414 UA WBC auto 5.9 /uL 08/24/2018 Unknown UA W/MICR 32964 UA SQ EPI auto 5.2 /uL 08/24/2018 Unkn own UA W/MICR 92992 UA H Cast auto 0.10 /uL 08/24/2018 Unkn own PROGRAF [id number] Prograf 7.3 ng/mL 08/24/2018 Unknown MICROALBUMIN URINE RANDOM 85085 U Microalbumin 3485.2 mg /L 08/24/2018 Unknown MICROALBUMIN URINE RANDOM 38727 U Creatinine 116 mg/dL 0 08/24/2018 Unknown MICROALBUMIN URINE RANDOM 39258 ALB/CR Ratio 3004.5 mg/g CR 08/24/2018 Unknown GLYCOSYLATED HEMOGLOBIN TEST 78020 Hgb A1c 00255-2 13.3 % 0 06/29/2018 Unknown MEAN GLUC [id number] Calc Mean Gluc 335 mg/dL 06/29/2018 Unkn own COMPREHENSIVE METABOLIC 66374 AST 17 U/L 2017 Unknown COMPREHENSIVE METABOLIC 38738 ALT 24 U/L 2017 Unknown COMPREHENSIVE METABOLIC 80792 BUN 24 mg/dL 2017 Unknown COMPREHENSIVE METABOLIC 80817 ALBUMIN 3.9 g/dL 2017 Unknown COMPREHENSIVE METABOLIC 39026 CHLORIDE 108 mmol/L 02/06 Unknown COMPREHENSIVE METABOLIC 67933 Bili Total 0.6 mg/dL 02/06 Unknown COMPREHENSIVE METABOLIC 83616 ALK PHOS 67 U/L 2017 Unknown COMPREHENSIVE METABOLIC 01126 SODIUM 140 mmol/L 02/06 Unknown COMPREHENSIVE METABOLIC 97247 CREATININE 1.75 mg/dL 01/11 Unknown COMPREHENSIVE METABOLIC 15401 CALCIUM 9.6 mg/dL 2017 Unknown COMPREHENSIVE METABOLIC 83251 POTASSIUM 3.8 mmol/L 02/06 Unknown COMPREHENSIVE METABOLIC 94445 Total Protein 7.1 g/dL Unknown COMPREHENSIVE METABOLIC 76964 Glucose 62 mg/dL 2017 Unknown COMPREHENSIVE METABOLIC 06072 Bicarbonate 23 mmol/L 01/11 Unknown COMPREHENSIVE METABOLIC 64575 AGAP 9 mmol/L 2017 Unknown GLYCOSYLATED HEMOGLOBIN TEST 00514 Hgb A1c 53593-2 13.0 % 0 02/06/2018 Unknown GFR CALC 6132105 GFR Non Afr Amr 46 mL/min 02/06/2018 Unk nown GFR CALC 5881166 GFR Afr Amr 55 mL/min 02/06/2018 Unknown MICROALBUMIN URINE RANDOM 49384 U Microalbumin 669.0 mg/ L 02/06/2018 Unknown MICROALBUMIN URINE RANDOM 72167 U Creatinine 92 mg/dL 0 02/06/2018 Unknown MICROALBUMIN URINE RANDOM 21906 ALB/CR Ratio 727.2 mg/gC R 02/06/2018 Unknown MEAN GLUC 6380986 Calc Mean Gluc 326 mg/dL 02/06/2018 Unkn own GLYCOSYLATED HEMOGLOBIN TEST 30828 Hgb A1c 47077-0 14.3 % 0 12/03/2015 Unknown THYROID STIMULATING HORMONE 02864 TSH 1.909 uIU/mL 12/03/2015 Unknown MAGNESIUM 81506 MAGNESIUM 1.5 mEq/L 12/03/2015 Unknown GFR CALC 6715101 GFR Non Afr Amr 39 mL/min 12/03/2015 Unk nown GFR CALC 3233034 GFR Afr Amr 48 mL/min 12/03/2015 Unknown MEAN GLUC 3312295 Mean Glucose 364 mg/dL 12/03/2015 Unknow n COMPREHENSIVE METABOLIC 03189 AST 34 U/L 2015 Unknown COMPREHENSIVE METABOLIC 56293 ALT 78 U/L 2015 Unknown COMPREHENSIVE METABOLIC 62369 BUN 29 mg/dL 2015 Unknown COMPREHENSIVE METABOLIC 64387 ALBUMIN 4.3 g/dL 2015 Unknown COMPREHENSIVE METABOLIC 81902 CHLORIDE 93 mmol/L 2015 Unknown COMPREHENSIVE METABOLIC 29348 Bili Total 0.7 mg/dL 12/02 Unknown COMPREHENSIVE METABOLIC 17251 ALK PHOS 83 U/L 2015 Unknown COMPREHENSIVE METABOLIC 51406 SODIUM 125 mmol/L 12/02 Unknown COMPREHENSIVE METABOLIC 49963 CREATININE 2.01 mg/dL 11/11 Unknown COMPREHENSIVE METABOLIC 28895 CALCIUM 9.8 mg/dL 2015 Unknown COMPREHENSIVE METABOLIC 81698 POTASSIUM 4.3 mmol/L 12/02 Unknown COMPREHENSIVE METABOLIC 45700 Total Protein 7.3 g/dL Unknown COMPREHENSIVE METABOLIC 36063 Glucose 542 mg/dL 2015 Unknown COMPREHENSIVE METABOLIC 56658 Bicarbonate 23 mmol/L 11/11 Unknown COMPREHENSIVE METABOLIC 34363 AGAP 9 mmol/L 2015 Unknown COMPREHENSIVE METABOLIC 31996 AST 31 U/L 2013 Unknown COMPREHENSIVE METABOLIC 87036 ALT 52 IU/L 2013 Unknown COMPREHENSIVE METABOLIC 97433 BUN 26 MG/DL 2013 Unknown COMPREHENSIVE METABOLIC 19485 ALBUMIN 4.9 GM/DL 2013 Unknown COMPREHENSIVE METABOLIC 89652 CHLORIDE 108 MMOL/L 07/30 Unknown COMPREHENSIVE METABOLIC 20879 BILI TOT 0.4 MG/DL 2013 Unknown COMPREHENSIVE METABOLIC 51021 ALK PHOS 68 U/L 2013 Unknown COMPREHENSIVE METABOLIC 48362 SODIUM 138 MMOL/L 07/30 Unknown COMPREHENSIVE METABOLIC 29393 CREATININE 2.02 MG/DL 07/13 Unknown COMPREHENSIVE METABOLIC 29442 CALCIUM 10.3 MG/DL 07/30 Unknown COMPREHENSIVE METABOLIC 30572 POTASSIUM 5.0 MMOL/L 07/30 Unknown COMPREHENSIVE METABOLIC 64178 PROT TOT 7.3 GM/DL 2013 Unknown COMPREHENSIVE METABOLIC 14259 Glucose 89 MG/DL 2013 Unknown COMPREHENSIVE METABOLIC 28714 BICARB 24 MMOL/L 2013 Unknown COMPREHENSIVE METABOLIC 28558 ANION GAP 6 MEQ/L 2013 Unknown GFR CALC 8054055 GFR AA 48.0L ML/MIN 07/30/2013 Unknow n GFR CALC 3596334 GFR NON-AA 40.0L ML/MIN 07/30/2013 Unkno wn COMPLETE BLOOD COUNT 4889277 WBC 7.9 10e9/L 07/30/19 14 Unknown COMPLETE BLOOD COUNT 0688730 RBC 4.94 10e12/L 2013 Unknown COMPLETE BLOOD COUNT 4866287 HGB 14.0 g/dL 4 Unknown COMPLETE BLOOD COUNT 1831001 HCT DET 41.5 % 4 Unknown COMPLETE BLOOD COUNT 2042993 MCV 84.0 fL 4 Unknown COMPLETE BLOOD COUNT 5097644 MCH 28.3 pg 4 Unknown COMPLETE BLOOD COUNT 1045479 MCHC 33.7 g/dL 4 Unknown COMPLETE BLOOD COUNT 7659685 PLT 176 10e9/L 07/30/19 14 Unknown COMPLETE BLOOD COUNT 6422046 MPV 11.8 fL 4 Unknown COMPLETE BLOOD COUNT 4041925 CLAYTON % 75.4 % 4 Unknown COMPLETE BLOOD COUNT 2520920 LY % 13.7 % 4 Unknown COMPLETE BLOOD COUNT 1281782 MON % 8.9 % 4 Unknown COMPLETE BLOOD COUNT 9051616 EOS % 1.7 % 4 Unknown COMPLETE BLOOD COUNT 5322598 BASO % 0.3 % 4 Unknown COMPLETE BLOOD COUNT 2390890 RDW 13.4 % 4 Unknown COMPLETE BLOOD COUNT 2273068 ABS CLAYTON 5.96 10e9/L 014 Unknown COMPLETE BLOOD COUNT 6309869 ABS LYMPH 1.08 10e9/L 014 Unknown COMPLETE BLOOD COUNT 3900546 ABS MONO 0.70 10e9/L 014 Unknown COMPLETE BLOOD COUNT 1769206 ABS EOS 0.13 10e9/L 014 Unknown COMPLETE BLOOD COUNT 4633069 ABS BASO 0.02 10e9/L 014 Unknown COMPLETE BLOOD COUNT 4748212 RDW-SD 40.2 fL 4 Unknown C-REACTIVE PROTEIN (CRP) QUANT 14926 CRP 0.2 MG/DL 07/30/2013 Unknown CANCEL 6487562 CANCEL FOOTNOTE 05/23/2012 Unknown PEND CHEM PEND CHEM FOOTNOTE 05/22/2012 Unknown COMPREHENSIVE METABOLIC 64039 AST 61 U/L 2011 Unknown COMPREHENSIVE METABOLIC 02385 ALT 106 U/L 2011 Unknown COMPREHENSIVE METABOLIC 51675 BUN 33 MG/DL 2011 Unknown COMPREHENSIVE METABOLIC 12847 ALBUMIN 5.0 GM/DL 2011 Unknown COMPREHENSIVE METABOLIC 98316 CHLORIDE 89 MMOL/L 2011 Unknown COMPREHENSIVE METABOLIC 26115 BILI TOT 0.6 MG/DL 2011 Unknown COMPREHENSIVE METABOLIC 45245 ALK PHOS 129 U/L 2011 Unknown COMPREHENSIVE METABOLIC 64858 SODIUM 120 MMOL/L 05/21 Unknown COMPREHENSIVE METABOLIC 45619 CREATININE 2.23 MG/DL 05/12 Unknown COMPREHENSIVE METABOLIC 64504 CALCIUM 9.8 MG/DL 2011 Unknown COMPREHENSIVE METABOLIC 20867 POTASSIUM 5.3 MMOL/L 05/21 Unknown COMPREHENSIVE METABOLIC 48946 PROT TOT 7.8 GM/DL 2011 Unknown COMPREHENSIVE METABOLIC 57512 Glucose 789 MG/DL 2011 Unknown COMPREHENSIVE METABOLIC 09061 BICARB 20 MMOL/L 2011 Unknown COMPREHENSIVE METABOLIC 36807 ANION GAP 11 MMOL/L 2011 Unknown GFR CALC 7933102 GFR AA 43.0L ML/MIN 05/21/2012 Unknow n GFR CALC 7270280 GFR NON-AA 36.0L ML/MIN 05/21/2012 Unkno wn THYROID STIMULATING HORMONE 02648 TSH 1.499 uIU/ML 01/27/2011 Unknown FREE T4 21818 FREE T4 1.15 NG/DL 01/27/2011 Unknown Procedures Procedure Codes Date ROUTINE VENIPUNCTURE CPT-4: 17810 02/26/2019 A1C HPLC CPT-4: 89827 02/26/2019 MICROALBUMIN QUANTITATIVE CPT-4: 32817 02/26/2019 ROUTINE VENIPUNCTURE CPT-4: 62712 02/19/2019 METABOLIC PANEL TOTAL CA CPT-4: 50451 02/19/2019 MICROALBUMIN, QUANTITATIVE CPT-4: 66994 02/19/2019 LIPID PANEL CPT-4: 04816 02/19/2019 COMPREHEN METABOLIC PANEL CPT-4: 57084 02/19/2019 ASSAY OF MAGNESIUM CPT-4: 41119 02/19/2019 METABOLIC PANEL TOTAL CA CPT-4: 32522 08/24/2018 COMPREHEN METABOLIC PANEL CPT-4: 00440 08/24/2018 ASSAY OF MAGNESIUM CPT-4: 35510 08/24/2018 MICROALBUMIN QUANTITATIVE CPT-4: 64899 08/24/2018 PROTEIN/CREAT URINE WITH RATIO CPT-4: 53980|83914 9 PHOSPHORUS CPT-4: 9962317 08/24/2018 LIPID PANEL CPT-4: 06201 08/24/2018 ROUTINE VENIPUNCTURE CPT-4: 07487 06/29/2018 A1C HPLC CPT-4: 51668 06/29/2018 URINALYSIS NONAUTO W/O SCOPE CPT-4: 62969 02/06/2018 URINE CULTURE/ COLONY COUNT CPT-4: 83539 02/06/2018 MICROALBUMIN QUANTITATIVE CPT-4: 80842 02/06/2018 ROUTINE VENIPUNCTURE CPT-4: 31714 02/06/2018 COMPREHEN METABOLIC PANEL CPT-4: 67870 02/06/2018 A1C HPLC CPT-4: 79943 02/06/2018 ROUTINE VENIPUNCTURE CPT-4: 31312 11/02/2017 COMPREHEN METABOLIC PANEL CPT-4: 44272 11/02/2017 A1C HPLC CPT-4: 30134 11/02/2017 TDAP VACCINE 7 YRS/> IM CPT-4: 44272 07/27/2017 IMMUNIZATION ADMIN CPT-4: 50921 07/27/2017 URINALYSIS NONAUTO W/O SCOPE CPT-4: 75102 02/16/2016 URINE CULTURE/ COLONY COUNT CPT-4: 77167 02/16/2016 PRESCRIP TRANSMIT VIA ERX SY CPT-4: G8553 02/16/2016 ROUTINE VENIPUNCTURE CPT-4: 07824 12/03/2015 ASSAY THYROID STIM HORMONE CPT-4: 44420 12/03/2015 COMPREHEN METABOLIC PANEL CPT-4: 43266 12/03/2015 A1C HPLC CPT-4: 32780 12/03/2015 ASSAY OF MAGNESIUM CPT-4: 84473 12/03/2015 URINALYSIS NONAUTO W/O SCOPE CPT-4: 35988 12/03/2015 URINE CULTURE/ COLONY COUNT CPT-4: 43757 12/03/2015 URINALYSIS NONAUTO W/O SCOPE CPT-4: 44095 07/30/2013 URINE CULTURE/ COLONY COUNT CPT-4: 05352 07/30/2013 ROUTINE VENIPUNCTURE CPT-4: 91899 07/30/2013 COMPLETE CBC W/AUTO DIFF WBC CPT-4: 58395 07/30/2013 COMPREHEN METABOLIC PANEL CPT-4: 98697 07/30/2013 C-REACTIVE PROTEIN CPT-4: 21813 07/30/2013 ROUTINE VENIPUNCTURE CPT-4: 64232 08/20/2012 ASSAY OF FREE THYROXINE CPT-4: 68945 08/20/2012 ASSAY THYROID STIM HORMONE CPT-4: 89267 08/20/2012 COMPREHEN METABOLIC PANEL CPT-4: 68088 08/20/2012 COMPLETE CBC W/AUTO DIFF WBC CPT-4: 26209 08/20/2012 LIPID PANEL CPT-4: 72225 08/20/2012 A1C GLYCOSYLATED HEMOGLOBIN TEST CPT-4: 30661 013 ASSAY, GLUCOSE, BLOOD QUANT CPT-4: 45783 06/21/2012 ASSAY, GLUCOSE, BLOOD QUANT CPT-4: 41751 05/21/2012 ROUTINE VENIPUNCTURE CPT-4: 83378 05/21/2012 COMPREHEN METABOLIC PANEL CPT-4: 65265 05/21/2012 A1C GLYCOSYLATED HEMOGLOBIN TEST CPT-4: 78361 012 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 SMKLESS 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 USER CPT-4: G8456 06/14/2011 PT VIS DOC USE EHR CER ATCB CPT-4: G8447 06/14/2011 PRESCRIP TRANSMIT VIA ERX SY CPT-4: G8553 06/14/2011 PT VIS DOC USE EHR CER ATCB CPT-4: G8447 03/03/2011 PRESCRIP TRANSMIT VIA ERX SY CPT-4: G8553 03/03/2011 ROUTINE VENIPUNCTURE CPT-4: 60896 01/27/2011 ASSAY OF FREE THYROXINE CPT-4: 12420 01/27/2011 ASSAY THYROID STIM HORMONE CPT-4: 65804 01/27/2011 PT VIS DOC USE EHR CER [...] 1: 158/90 Code: 8480-6 BMI: 34.3 Code: 60997-3 Heart Rate 1: 78 bpm Height: 6'1" Respiratory Rate: 20 bpm SpO2: 98% Tempera ture: 36.6 (C) / 97.8 (F) Weight: 260 lbs 11/02/2017 Blood Pressure 1: 134/92 Code: 8480-6 BMI: 32.3 Code: 28529-1 Heart Rate 1: 72 bpm Height: 6'1" SpO2: 98% Temperature: 36.4 (C) / 97.5 (F) Weight: 245 lbs 07/27/2017 Blood Pressure 1: 136/64 Code: 8480-6 BMI: 30.9 Code: 76503-2 Heart Rate 1: 78 bpm Height: 6'1" Respiratory Rate: 22 bpm SpO2: 98% Tempera ture: 36.4 (C) / 97.6 (F) Weight: 234 lbs 04/05/2017 Blood Pressure 1: 126/90 Code: 8480-6 BMI: 33.5 Code: 22566-8 Heart Rate 1: 76 bpm Height: 6'1" Respiratory Rate: 20 bpm SpO2: 97% Tempera ture: 37.0 (C) / 98.6 (F) Weight: 254 lbs 06/20/2016 Blood Pressure 1: 122/74 Code: 8480-6 BMI: 35.2 Code: 97983-6 Heart Rate 1: 80 bpm Height: 6'1" Respiratory Rate: 20 bpm SpO2: 97% Tempera ture: 36.9 (C) / 98.5 (F) Weight: 267 lbs 02/16/2016 Blood Pressure 1: 136/82 Code: 8480-6 BMI: 36.4 Code: 51142-2 Heart Rate 1: 66 bpm Height: 6'1" Respiratory Rate: 18 bpm SpO2: 96% Tempera ture: 36.4 (C) / 97.6 (F) Weight: 276 lbs 12/03/2015 Blood Pressure 1: 122/86 Code: 8480-6 BMI: 39.2 Code: 46933-3 Heart Rate 1: 76 bpm Height: 6' Respiratory Rate: 20 bpm Temperature: 37 .1 (C) / 98.7 (F) Weight: 289 lbs 06/24/2015 Blood Pressure 1: 136/84 Code: 8480-6 BMI: 40.7 Code: 14168-1 Heart Rate 1: 84 bpm Height: 6' Respiratory Rate: 20 bpm Temperature: 36 .9 (C) / 98.4 (F) Weight: 300 lbs 06/11/2015 Blood Pressure 1: 160/82 Code: 8480-6 BMI: 40.4 Code: 33269-6 Heart Rate 1: 82 bpm Height: 6' Respiratory Rate: 22 bpm Temperature: 36 .5 (C) / 97.7 (F) Weight: 298 lbs 07/17/2014 Blood Pressure 1: 132/84 Code: 8480-6 BMI: 41.0 Code: 13804-2 Heart Rate 1: 76 bpm Height: 6'1" Respiratory Rate: 20 bpm Temperature: 36 .9 (C) / 98.4 (F) Weight: 311 lbs 10/31/2013 Blood Pressure 1: 132/80 Code: 8480-6 BMI: 41.2 Code: 88112-2 Heart Rate 1: 84 bpm Height: 6'1" Respiratory Rate: 22 bpm Temperature: 36 .1 (C) / 97.0 (F) Weight: 312 lbs 08/01/2013 Blood Pressure 1: 142/86 Code: 8480-6 BMI: 42.4 Code: 24809-2 Heart Rate 1: 84 bpm Height: 6' [...] 1: 156/108 Code: 8480-6 BMI: 41.9 Code: 36549-1 Heart Rate 1: 92 bpm Height: 6' Respiratory Rate: 20 bpm Temperature: 36 .9 (C) / 98.4 (F) Weight: 309 lbs 02/27/2013 Blood Pressure 1: 162/114 Code: 8480-6 BMI: 41.0 Code: 04131-0 Heart Rate 1: 84 bpm Height: 6' Respiratory Rate: 20 bpm Temperature: 36 .7 (C) / 98.0 (F) Weight: 302 lbs 01/01/2013 Blood Pressure 1: 138/86 Code: 8480-6 BMI: 41.0 Code: 94824-5 Heart Rate 1: 76 bpm Height: 6' Respiratory Rate: 20 bpm Temperature: 36 .7 (C) / 98.0 (F) Weight: 302 lbs 11/27/2012 Blood Pressure 1: 136/92 Code: 8480-6 BMI: 41.2 Code: 74354-7 Heart Rate 1: 80 bpm Height: 6' Respiratory Rate: 20 bpm Temperature: 36 .6 (C) / 97.8 (F) Weight: 304 lbs 08/28/2012 Blood Pressure 1: 126/80 Code: 8480-6 BMI: 41.8 Code: 29278-9 Heart Rate 1: 80 bpm Height: 6' Respiratory Rate: 20 bpm Temperature: 36 .4 (C) / 97.6 (F) Weight: 308 lbs 07/03/2012 Blood Pressure 1: 114/80 Code: 8480-6 BMI: 42.3 Code: 54074-6 Heart Rate 1: 72 bpm Height: 6' Respiratory Rate: 20 bpm Temperature: 36 .6 (C) / 97.9 (F) Weight: 312 lbs 06/21/2012 Blood Pressure 1: 152/100 Code: 8480-6 BMI: 43.3 Code: 50322-2 Heart Rate 1: 72 bpm Height: 6' Temperature: 36.8 (C) / 98.2 (F) Weight: 319 lbs 05/30/2012 Blood Pressure 1: 122/78 Code: 8480-6 BMI: 43.0 Code: 87489-3 Heart Rate 1: 72 bpm Height: 6' Respiratory Rate: 20 bpm Temperature: 36 .7 (C) / 98.0 (F) Weight: 317 lbs 05/21/2012 Blood Pressure 1: 126/94 Code: 8480-6 BMI: 44.2 Code: 43656-9 Heart Rate 1: 92 bpm Height: 6' Respiratory Rate: 20 bpm Temperature: 36 .6 (C) / 97.9 (F) Weight: 326 lbs 01/24/2012 Blood Pressure 1: 122/90 Code: 8480-6 BMI: 44.5 Code: 74450-6 Heart Rate 1: 76 bpm Height: 6' Respiratory Rate: 20 bpm Temperature: 36 .8 (C) / 98.2 (F) Weight: 328 lbs 09/21/2011 Blood Pressure 1: 116/80 Code: 8480-6 BMI: 44.1 Code: 07965-0 Heart Rate 1: 92 bpm Height: 6' Respiratory Rate: 20 bpm Temperature: 36 .7 (C) / 98.1 (F) Weight: 325 lbs 09/12/2011 Blood Pressure 1: 166/110 Code: 8480-6 BMI: 45.0 Code: 96811-6 Heart Rate 1: 80 bpm Height: 6' Respiratory Rate: 20 bpm Temperature: 36 .5 (C) / 97.7 (F) Weight: 332 lbs 06/14/2011 Blood Pressure 1: 142/84 Code: 8480-6 BMI: 45.6 Code: 30771-0 Heart Rate 1: 104 bpm Height: 6' Respiratory Rate: 20 bpm Temperature: 36 .4 (C) / 97.5 (F) Weight: 336 lbs 03/03/2011 Blood Pressure 1: 130/96 Code: 8480-6 Heart Rate 1: 86 bpm Temperature: 36.1 (C) / 97.0 (F) Weight: 327 lbs 01/27/2011 Blood Pressure 1: 142/96 Code: 8480-6 BMI: 42.0 Code: 59288-3 Heart Rate 1: 72 bpm Height: 6'2" [...] Right lower quadrant pain[ICD10: R10.31] Galina Chance [employer] CPT-4: 70839 05/20/2019 ([id number]) OFFICE/OUTPATIENT VISIT EST Diagnosis: Essential (primary) hypertension[ICD10: I10] Diagnosis: 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, 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] Diagnosis: Kidney transplant status[ICD10: Z94.0] Diagnosis: Chronic kidney disease, stage 3 (moderate)[ICD10: N18.3] Diagnosis: Mixed hyperlipidemia[ICD10: E78.2] Galina Chance [employer] CPT-4: 90460 02/26/2019 ([id number]) NURSE/OUTPATIENT VISIT EST Diagnosis: 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, 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] Diagnosis: Essential (primary) hypertension[ICD10: I10] Diagnosis: Other specified hypothyroidism[ICD10: E03.8] Diagnosis: Mixed hyperlipidemia[ICD10: E78.2] Galina SMITH [employer] CPT-4: 43401 02/19/2019 ([id number]) NURSE/OUTPATIENT VISIT EST Diagnosis: Kidney transplant status[ICD10: Z94.0] 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] 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] Diagnosis: Encounter for aftercare following other organ transplant[ICD10: Z48.298] Diagnosis: Mixed hyperlipidemia[ICD10: E78.2] Galina WARREN [employer] SM[employer] CPT-4: 07021 08/24/2018 ([id number]) NURSE/OUTPATIENT VISIT EST Diagnosis: Type 2 diabetes mellitus with diabetic neuropathy, unspecified[ICD10: E11.40] Diagnosis: Type 2 diabetes mellitus with hyperglycemia[ICD10: E11.65] 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] Diagnosis: Essential (primary) hypertension[ICD10: I10] Galina [employer] CPT-4: 19673 06/29/2018 ([id number]) OFFICE/OUTPATIENT VISIT EST Diagnosis: Slow transit constipation[ICD10: K59.01] Diagnosis: Epigastric pain[ICD10: R10.13] Diagnosis: Type 2 diabetes mellitus with hyperglycemia[ICD10: E11.65] Coleen SMITH [employer] CPT-4: 33591 06/26/2018 ([id number]) OFFICE/OUTPATIENT VISIT EST Diagnosis: Right lower quadrant pain[ICD10: R10.31] Diagnosis: Type 2 diabetes mellitus with diabetic neuropathy, unspecified[ICD10: E11.40] Coleen SMITH [employer] CPT-4: 18982 ([id number]) OFFICE/OUTPATIENT VISIT EST Diagnosis: Type 2 diabetes mellitus with hyperglycemia[ICD10: E11.65] Diagnosis: Mixed hyperlipidemia[ICD10: E78.2] Diagnosis: Essential (primary) hypertension[ICD10: I10] Coleen SMITH [facility] CPT-4: 53132 11/02/2017 ([id number]) PREV VISIT EST AGE 18-39 Diagnosis: Encounter for general adult medical examination with abnormal findings[ICD10: Z00.01] Diagnosis: Abrasion of right hand, initial encounter[ICD10: S60.511A] 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] Coleen SMITH [facility] CPT-4: 87177 OFFICE/OUTPATIENT VISIT EST 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] Diagnosis: Tinea pedis[ICD10: B35.3] Coleen ARTEAGA [facility] CPT-4: 70036 04/05/2017 ([id number]) OFFICE/OUTPATIENT VISIT EST Diagnosis: 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, 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] Diagnosis: Mixed hyperlipidemia[ICD10: E78.2] Diagnosis: Essential (primary) hypertension[ICD10: I10] [facility]: 62958 06/20/2016 ([id number]) OFFICE/OUTPATIENT VISIT EST Diagnosis: Urinary tract infection, site not specified[ICD10: N39.0] Missy SMITH [facility] CPT-4: 55139 02/16/2016 ([id number]) OFFICE/OUTPATIENT VISIT EST Diagnosis: Type 2 diabetes mellitus with hyperglycemia[ICD10: E11.65] Diagnosis: Cramp and spasm[ICD10: R25.2] Diagnosis: Hematuria, unspecified[ICD10: R31.9] Gal[facility] CPT-4: 90092 12/03/2015 OFFICE/OUTPATIENT VISIT EST Diagnosis: Type 2 diabetes mellitus with diabetic neuropathy, unspecified[ICD10: E11.40] Alejandra Billy GALINA [facility] CPT-4: 46716 06/24/2015 ([id number]) OFFICE/OUTPATIENT VISIT EST Diagnosis: Acute sinusitis, unspecified[ICD10: J01.90] Diagnosis: Otitis media, unspecified, bilateral[ICD10: H66.93] Galina DENNISONQUELINE SusuKarol LUIS [facility] CPT-4: 41191 06/11/2015 ([id number]) OFFICE/OUTPATIENT VISIT EST Diagnosis: 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[ICD9: 250.01] Diagnosis: HYPERTENSION[ICD9: 401.9] Diagnosis: HYPERLIPIDEMIA NEC/NOS[ICD9: 272.4] Diagnosis: KIDNEY TRANSPLANT STATUS[ICD9: V42.0] Galina KERN [employer] LUIS [facility] CPT-4: 42111 07/17/2014 ([id number]) OFFICE/OUTPATIENT VISIT EST Diagnosis: 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[ICD9: 250.01] Diagnosis: HYPERTENSION[ICD9: 401.9] Galina Luis DENNISONQUELINE SusuKarol ROD ARTEAGA [facility] CPT-4: 37322 10/31/2013 ([id number]) OFFICE/OUTPATIENT VISIT EST Diagnosis: 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I[ICD9: 250.00] Diagnosis: HYPERTENSION[ICD9: 401.9] Diagnosis: HYPERLIPIDEMIA NEC/NOS[ICD9: 272.4] Galina GE SKarol LUIS [employer] [facility] CPT-4: 02454 08/01/2013 OFFICE/OUTPATIENT VISIT EST Diagnosis: HEMATURIA NOS[ICD9: 599.70] Diagnosis: Abdominal pain, acute, right lower quadrant[ICD9: 789.03] Diagnosis: KIDNEY TRANSPLANT STATUS[ICD9: V42.0] Alejandra KERN [employer] LUIS [facility] CPT-4: 69117 07/30/2013 ([id number]) OFFICE/OUTPATIENT VISIT EST Diagnosis: Uncontrolled hypertension[ICD9: 401.9] Diagnosis: BRIEF DEPRESSIVE REACT[ICD9: 309.0] Galina GE SKarol LUIS [employer] [facility] CPT-4: 93855 05/30/2013 ([id number]) OFFICE/OUTPATIENT VISIT EST Diagnosis: HYPERTENSION[ICD9: 401.9] Diagnosis: Anticipatory grieving[ICD9: 309.0] Galina WARREN SuusKarol RODNDSHRAVAN [employer] [facility] CPT-4: 06754 04/29/2013 ([id number]) OFFICE/OUTPATIENT VISIT EST Diagnosis: 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I, UNCONTROLLED[ICD9: 250.02] Diagnosis: HYPERTENSION[ICD9: 401.9] Diagnosis: HYPOTHYROIDISM[ICD9: 244.9] Diagnosis: KIDNEY TRANSPLANT STATUS[ICD9: V42.0] Galina Rodmateus THRSAHER ERLIN [facility] CPT-[facility]: 06995 02/27/2013 OFFICE/OUTPATIENT VISIT EST Diagnosis: Paronychia[ICD9: 681.9] Diagnosis: ONYCHOMYCOSIS[ICD9: 110.1] Viky Chance [facility]IA [facility] CPT-4: 94103 01/01/2013 ([id number]) OFFICE/OUTPATIENT VISIT EST Diagnosis: 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I, UNCONTROLLED[ICD9: 250.02] Diagnosis: HYPERLIPIDEMIA NEC/NOS[ICD9: 272.4] Diagnosis: HYPERTENSION[ICD9: 401.9] Diagnosis: KIDNEY TRANSPLANT STATUS[ICD9: V42.0] Diagnosis: HYPOTHYROIDISM[ICD9: 244.9] Galina ASENCIO SusuKarlo O [facility] CPT-4: 70739 11/27/2012 ([id number]) OFFICE/OUTPATIENT VISIT EST Diagnosis: 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I[ICD9: 250.00] Diagnosis: HYPOTHYROIDISM[ICD9: 244.9] Diagnosis: HYPERLIPIDEMIA NEC/NOS[ICD9: 272.4] Diagnosis: HYPERTENSION[ICD9: 401.9] Galina Chance ROD NDER [facility] CPT-4: 44393 08/28/2012 ([id number]) OFFICE/OUTPATIENT VISIT EST Diagnosis: HYPOTHYROIDISM[ICD9: 244.9] Diagnosis: 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I, UNCONTROLLED[ICD9: 250.02] Diagnosis: HYPERLIPIDEMIA NEC/NOS[ICD9: 272.4] Diagnosis: KIDNEY TRANSPLANT STATUS[ICD9: V42.0] Diagnosis: HYPERTENSION[ICD9: 401.9] Galina Chance ROD NDER [facility] CPT-4: 24698 08/20/2012 OFFICE/OUTPATIENT VISIT EST Diagnosis: 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I, UNCONTROLLED[ICD9: 250.02] Diagnosis: HYPERTENSION[ICD9: 401.9] Galina Chance ROD [facility] CPT-4: 91067 07/03/2012 OFFICE/OUTPATIENT VISIT EST Diagnosis: 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I, UNCONTROLLED[ICD9: 250.02] Diagnosis: HYPERTENSION[ICD9: 401.9] Galina ARTEAGA [facility] CPT-4: 35452 06/21/2012 OFFICE/OUTPATIENT VISIT EST Diagnosis: 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I, UNCONTROLLED[ICD9: 250.02] Diagnosis: HYPERTENSION[ICD9: 401.9] Diagnosis: HYPERLIPIDEMIA NEC/NOS[ICD9: 272.4] Diagnosis: KIDNEY TRANSPLANT STATUS[ICD9: V42.0] [facility] 37405 05/30/2012 ([id number]) OFFICE/OUTPATIENT VISIT EST Diagnosis: HYPERTENSION[ICD9: 401.9] Diagnosis: VISUAL DISTURBANCE[ICD9: 368.9] [facility] 20824 05/21/2012 ([id number]) OFFICE/OUTPATIENT VISIT EST Diagnosis: HYPERTENSION[ICD9: 401.9] Diagnosis: HYPOTHYROIDISM[ICD9: 244.9] Diagnosis: KIDNEY TRANSPLANT STATUS[ICD9: V42.0] [facility] 01451 01/24/2012 OFFICE/OUTPATIENT VISIT EST Diagnosis: DIZZINESS/VERTIGO[ICD9: 780.4] Diagnosis: HYPERTENSION[ICD9: 401.9] Galina ROD [facility] CPT-4: 23436 09/21/2011 ([id number]) OFFICE/OUTPATIENT VISIT EST Diagnosis: HYPERTENSION[ICD9: 401.9] Diagnosis: HYPOTHYROIDISM[ICD9: 244.9] Diagnosis: HYPERLIPIDEMIA NEC/NOS[ICD9: 272.4] Diagnosis: KIDNEY TRANSPLANT STATUS[ICD9: V42.0] [facility]: 01694 09/12/2011 OFFICE/OUTPATIENT VISIT EST Diagnosis: HYPOTHYROIDISM[ICD9: 244.9] Diagnosis: HYPERTENSION[ICD9: 401.9] Diagnosis: CEPHALGIA[ICD9: 784.0] Galina Augustine DO [facility] CPT-4: 91379 06/14/2011 OFFICE/OUTPATIENT VISIT EST Diagnosis: HYPERTENSION[ICD9: 401.9] Diagnosis: PHARYNGITIS, ACUTE[ICD9: 462] Diagnosis: HYPOTHYROIDISM[ICD9: 244.9] Galina RIVAS DO [facility] CPT-4: 36221 03/03/2011 OFFICE/OUTPATIENT VISIT EST Diagnosis: HYPOTHYROIDISM[ICD9: 244.9] Diagnosis: KIDNEY TRANSPLANT STATUS[ICD9: V42.0] Diagnosis: HYPERTENSION[ICD9: 401.9] Diagnosis: SINUSITIS, ACUTE[ICD9: 461.9] Galina SMITH [facility] CPT-4: 09051 01/27/2011 ([id number]) OFFICE/OUTPATIENT VISIT EST Galina [facility] CPT-4: 01707 12/02/2010 Plan of Care Planned Activity Notes Codes Status Date Visit Diagnosis Plan: Right lower quadrant pain Discus sal: Check Stat UA, CBC, ESR, CMP Stay NPO If WBC or ESR elevated will need to proceed with CT scan of abdomen/pelvis ICD-9 : 789.03 ICD-10 : R10.31 05/20/2019 Visit Diagnosis Plan: Essential (primary) hypertension Discussion: Noncompliant Start amlodopine 5mg daily ICD-9 : 401.9 ICD-10 : I10 02/26/2019 Visit Diagnosis Plan: Mixed hyperlipidemia Discussion: Start atorvastatin 80mg daily ICD-9 : 272.4 ICD-10 : E78.2 02/26/2019 Visit Diagnosis Plan: 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 NO SHOW - FORGIVE N 02/19/2019 Appointment: Galina Smith WPtel: [address] [place], [place] [phone] LAB 08/24/2018 Appointment: Galina Smith WPtel: [phone] [facility]66[facility] LAB 06/29/2018 Visit Diagnosis Plan: Epigastric pain [...] he had labs done in dec at [facility]. will obtain lab results and order additional labs as needed. ICD-9 : 250.02 ICD-10 : E11.65 06/26/2018 Appointment: Coleen Frey [address] [place], [place] [phone] ACUTE ILLNESS 06/26/2018 Visit Diagnosis Plan: Right [...] ICD-10 : E11.40 02/06/2018 Appointment: Coleen Frey [address] [place], [place] [phone] ACUTE ILLNESS 02/06/2018 Patient Education: Patient Medication [...] ICD-10 : I10 11/02/2017 Appointment: Coleen Frey [address] [facility] FOLLOW UP 11/02/2017 Patient Education: Patient Medication [...] E11.59 07/27/2017 Visit Diagnosis Plan: Encounter for [facility] adult medical examination with abnormal findings Discussion: patient deferred influenza v accine at this time, received tdap shot. routine labs performed earlier today so will obtain results from gabriel osorio. 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 follow up in [...] : B35.3 04/05/2017 Appointment: Coleen Frey [address] [facility] FOLLOW UP 04/05/2017 Patient Education: Patient Medication Summary Completed 04/05/2017 Patient Education: Patient Medication Summary Completed 04/05/2017 Care Plan: CBC Pending 04/05/2017 Care Plan: LIPID PANEL LOINC : 51169-6 Pending 04/05/2017 Care Plan: COMPREHEN METABOLIC PANEL [place] : 27909-9 Pending 04/05/2017 Visit Plan: Patient admits that [...] given 06/20/2016 Appointment: Galina Smith WPtel: [phone] [facility] [facility] [id number] 06/16 lm-sp 06/20 lm ~sl FOLLOW UP 06/20/2016 Patient Education: Patient Medication Summary Completed 06/20/2016 Patient Education: Patient Medication Summary Completed 05/04/2016 Care Plan: COMPREHEN METABOLIC PANEL NAMITA NC : 98842-7 Pending 05/04/2016 Care Plan: CBC Pending 05/04/2016 Care Plan: LIPID PANEL LOINC : 97483-3 Pending 05/04/2016 Care Plan: A1C HPLC LOINC : 85643-6 Pending 05/04/2016 Visit Plan: Discussed with Dr Luis stephens as above while awaiting specialist to return his call Push fluids Follow up celine if not improving 02/16/2016 Appointment: Dao Missy [address] [place] [address] ACUTE ILLNESS 02/16/2016 Patient Education: Patient Medication Summary Completed 02/16/2016 Visit Plan: Check CMP, TSH, HbA1C, magne sium, UA now Hydrate and monitor blood sugar Use powerade zero in conjunction with water to stay hydrated Discussed elevated blood sugar can cause cramping as well 12/03/2015 Appointment: Galina Smith WPtel: [address] [place] [address] ACUTE ILLNESS 12/03/2015 Patient Education: Patient Medication Summary Completed 12/03/2015 Visit Plan: Labs completed this am in [facility] but do not have results yet. Start Lyrica 75mg PO bid Will Call in a week and let know if pain is improved. 06/24/2015 Appointment: Alejandra Billy WPtel: [address] [place] [address] ACUTE ILLNESS 06/24/2015 Patient Education: Patient Medication Summary Completed 06/24/2015 Patient Education: Lyrica - 18+ - No MA NE Completed 06/24/2015 Visit Plan: Saline nasal flushes prn. Ty lenol/Motrin prn headache. Notify if persists/symptoms worsening. Obtain most recent lab Warned of increased BS with prednisone--has sliding scale to use 06/11/2015 Appointment: Galina Smith WPtel: [address] [place] [address] 06/10/15 vm cn....06/10/15 appt confirmed ophelia Marroquin ual Well Visit 06/11/2015 Patient Education: Patient Medication Summary Completed 06/11/2015 Appointment: Galina Smith WPtel: [address] [place] [address] FOLLOW UP 10/15/2014 Patient Education: Patient Medication Summary Completed 09/03/2014 Care Plan: [place] : 31[address]-1 Ordered 09/03/2014 Visit Plan: Obtain most recent lab resul ts Will likely need HbA1C and Lipids if were not done Accuchecks q AC and HS 07/17/2014 Appointment: Galina Smith WPtel: [address] [place], [place] [phone] FOLLOW UP 07/17/2014 Patient Education: Patient Medication Summary Completed 07/17/2014 Appointment: Galina Smith WPtel: [address] [place] [address] 01/29 01/30 NO SHOW FOLLOW UP 01/30/2014 Visit Plan: Check CMP, HbA1C, CBC, Lipid s Pt sees transplant doctor next month Pt is currently just using insulin prn and monitering BS 10/31/2013 Appointment: Galina Smith WPtel: [address] [place] [address] FOLLOW UP 10/31/2013 Patient Education: Patient Medication Summary Completed 10/31/2013 Visit Plan: Continue current meds and ac uchecks 08/01/2013 Appointment: Galina Smith WPtel: [address] [place], [place] [phone] 07/31 FOLLOW UP 08/01/2013 Patient Education: Patient Medication Summary Completed 08/01/2013 Appointment: Alejandra Billy WPtel: [address] [place], [place] [phone] ACUTE ILLNESS 07/30/2013 Patient Education: Patient Medication Summary Completed 07/30/2013 Visit Plan: Restart Diovan--pt says need s PA Continue fluoxetine at 20mg daily 05/30/2013 Appointment: Galina Smith WPtel: [address] [place], [place] [phone] FOLLOW UP 05/30/2013 Patient Education: Patient Medication Summary Completed 05/30/2013 Appointment: Galina Smith WPtel: [address] [place] [address] [place] has appt following day FOLLOW UP 3 Visit Plan: Restart Diovan and Amlodopin e as has been out--new rx sent out Trial of Fluoxetine 20mg q AM Stress Reducers 04/29/2013 Appointment: Galina Smith WPtel: [address] [place] [address] 04/26 MOM made appt. confirmed monday ACUTE ILL NESS 04/29/2013 Patient Education: Patient Medication Summary Completed 04/29/2013 Visit Plan: Continue current meds and ac cuchecks Pt going for fasting lab next month 02/27/2013 Appointment: Galina Smith WPtel: [address] [place] [address] FOLLOW UP 02/27/2013 Patient Education: Patient Medication Summary Completed 02/27/2013 Appointment: Viky Acosta WPtel: [address] [place] [address] ACUTE ILLNESS 01/01/2013 Patient Education: Patient Medication Summary Completed 01/01/2013 Visit Plan: Continue current meds Check fasting lab next week 11/27/2012 Appointment: Galina Smith WPtel: [address] [place] [address] FOLLOW UP 11/27/2012 Patient Education: Patient Medication Summary Completed 11/27/2012 Visit Plan: Lab discussed Continue curre nt meds and accuchecks Pt sees transplant doctor in in October Check fasting lab and fwup in 3mos 08/28/2012 Appointment: Galina Smith WPtel: [address] [place] [address] 08/27 FOLLOW UP 08/28/2012 Patient Education: Patient Medication Summary Completed 08/28/2012 Appointment: Galina Smith WPtel: [address] [place], [place] [phone] LAB 08/20/2012 Patient Education: Patient Medication Summary Completed 08/20/2012 Visit Plan: Continue levemir at current dose with accuchecks Use apidra with sliding scale Check Chem 7 and HbA1C in 2mos 07/03/2012 Appointment: Galina Smithtel: [address] [place], [place] [phone] 07/02 FOLLOW UP 07/03/2012 Patient Education: Patient [...] 320mg daily 06/21/2012 Appointment: Galina Smith WPtel: [address] [place] [address] ACUTE ILLNESS 06/21/2012 Patient Education: Patient Medication Summary Completed 06/21/2012 Visit Plan: Increase Levemir to 75 u sc q PM Continue sliding scale insulin with accuchecks q AC and HS Call in 1wk with BS readings 05/30/2012 Appointment: Galina Smithtel: [address] [place], [place] [phone] [place] [address] Follow Up 05/30/2012 Patient Education: Patient Medication Summary Completed 05/30/2012 Appointment: Galina Smith WPtel: [address] [place], [place] [phone] 05/21 - cancelled appointment for 05/22 because PT was worke d in on 05/21 FOLLOW UP 05/22/2012 Appointment: Galina Smith WPtel: [address] [place], [place] [phone] WORK IN 05/21/2012 Appointment: Galina Smith WPtel: [address] [place], [place] [phone] LAB 05/21/2012 Patient Education: Patient Medication Summary Completed 05/21/2012 Visit Plan: Continue current meds Obtain most recent lab done at [facility] 01/24/2012 Appointment: Galina Smith WPtel: [address] [place] [address] voicemail FOLLOW UP 01/24/2012 Patient Education: Patient Medication Summary Completed 01/24/2012 Visit Plan: Decrease Norvasc to 2.5mg da anne marie Check CBC, CMP, TSH, Free T4 09/21/2011 Appointment: Galina Smith WPtel: [address] [place] [address] ACUTE ILLNESS 09/21/2011 Patient Education: Patient Medication Summary Completed 09/21/2011 Visit Plan: Continue Diovan at current d ose Add amlodopine Check Lipids/LFTs with next lab 09/12/2011 Appointment: Galina Smith WPtel: [address] [place] [address] FOLLOW UP 09/12/2011 Patient Education: Patient Medication Summary Completed 09/12/2011 Visit Plan: Increase Diovan to 320mg po daily Check TSH and Free T4 with kidney lab next week 06/14/2011 Appointment: Galina Smith WPtel: [address] [place] [address] FOLLOW UP 06/14/2011 Patient Education: Patient Medication Summary Completed 06/14/2011 Visit Plan: Z-pack then new toothebrush Start Diovan 03/03/2011 Appointment: Galina Smith WPtel: [address] [place] [address] ACUTE ILLNESS 03/03/2011 Patient Education: Patient Medication Summary Completed 03/03/2011 Appointment: Galina Smith WPtel: [address] [place] [address] FOLLOW UP 01/27/2011 Patient Education: Patient Medication Summary Completed 01/27/2011 Visit Plan: Continue current meds and pr oceed with lab per kidney [place] doctor [place] [facility] [place] 12/02/2010 App[facility]ment: Gal[facility]el[facility] [address] [facility] [facility] 12/02/2010 Patient Education: Patient Medication Summary Completed 12/02/2010 Appointment: Galina Smith WPtel: [phone] [facility] [place] S[facility] Removal 10/20/2009 Patient Education: Patient Medication Summary Completed 10/20/2009 Referral: Rudolph Núñez WPtel: [address] [id number] [place] Referral Initiated Instructions Comment . Patient [...] well . Labs completed this am in [facility] do not have results yet. Start [...] meds Obtain most recent lab done at [facility] . Decrease Norvasc to 2.5mg [...]
--- OUTSIDE RECORDS SUMMARY | 2019-08-21 00:11 | XMS REPORT | CCD ---
Author Author Cuauhtemoc Smith D.O. Organization [facility] Address [address] [place] [address] Phone Care Team Providers Care Back Panel Padder Name Role Phone Galina Smith D.O., PP Unavailable CCM Unavailable Summary Purpose Interface Exchange Insurance Providers Payer name Policy type / Coverage type Covered alliance party ID Effective Begin Date Effective End Date Blue Cross Blue Shield Blue Cross/Blue Shield [id number] 2017 Unknown Family History Family History data not found Social History Social History Element Codes Description Effective Dates Tobacco history SNOMED CT: 877191520 Currently uses smokeless to bacco 06/14/2011 Allergies, [...] ICD-9: V58.44 ICD-10: Z48.298 08/24/2018 Active Other alf (current) drug therapy ICD-9: V58.69 ICD-10: Z79.899 [...] Fill Instructions cephalexin 500 mg capsule RxNorm: 610647 1 Capsule(s) Oral thre e times a day 05/20/2019 05/26/2019 Active Prograf 0.5 mg capsule RxNorm: 838373 4 Capsule(s) Oral two skinny es a day 05/20/2019 No Stop Date Active pantoprazole 40 mg tablet,delayed release RxNorm: 314063 1 Tablet(s) Oral QD for stomach 05/20/2019 09/17/2019 Active CellCept 500 mg tablet RxNorm: 711925 2 Tablet(s) Oral two time s a day 05/20/2019 No Stop Date Active cephalexin 500 mg capsule RxNorm: 833050 1 Capsule(s) Oral thre e times a day 05/20/2019 05/19/2019 Inactive Levemir FlexTouch U-100 Insulin 100 unit/mL (3 mL) sub cutaneous pen RxNorm: 281920 INJECT 90 UNITS SUBCUTANEOUSLY TWICE DAILY 05/11/[address] op Date Active Levemir FlexTouch U-100 Insulin 100 unit/mL (3 mL) sub cutaneous pen RxNorm: 884594 100 Unit(s) Subcutaneous two times a day 03/04/2019 06/02/2019 Active Levemir FlexTouch U-100 Insulin 100 unit/mL (3 mL) sub cutaneous pen RxNorm: 598860 90 Unit(s) SQ BID 100 Unit(s) Subcutaneous two times a day 0 03/04/2019 03/04/2019 Inactive amlodipine 5 mg tablet RxNorm: 676811 1 Tablet(s) PO QD for BP 02/1008/24/2019 Active atorvastatin 80 mg tablet RxNorm: 634916 1 Tablet(s) PO QD 02/27/2005/26/2019 Active Novolog Flexpen U-100 Insulin aspart 100 unit/mL (3 mL ) subcutaneous RxNorm: 1049209 INJECT SUBCUTANEOUSLY NEEDED PER SLIDING SCALE 02/22/2019 No Stop Date Active Levemir FlexTouch U-100 Insulin 100 unit/mL (3 mL) sub cutaneous pen RxNorm: 698773 90 Unit(s) SQ BID 01/08/2019 03/03/2019 Inactive Levemir FlexTouch U-100 Insulin 100 unit/mL (3 mL) sub cutaneous pen RxNorm: 607297 90 Unit(s) SQ BID 12/04/2018 12/03/2018 Inactive Levemir FlexTouch U-100 Insulin 100 unit/mL (3 mL) sub cutaneous pen RxNorm: 863728 90 Unit(s) SQ BID 12/04/2018 01/07/2019 Inactive Levemir FlexTouch U-100 Insulin 100 unit/mL (3 mL) sub cutaneous pen RxNorm: 281355 70 Unit(s) SQ BID 10/26/2018 12/04/2018 Inactive Levemir FlexTouch U-100 Insulin 100 unit/mL (3 mL) sub cutaneous pen RxNorm: 092646 GIVE 90 UNITS SUBCUTANEOUSLY TWICE DAILY 10/08/2018 10/26/2018 Inactive Levemir FlexTouch U-100 Insulin 100 unit/mL (3 mL) sub cutaneous pen RxNorm: 970860 90 Unit(s) SQ BID 07/30/2018 10/07/2018 Inactive Levemir FlexTouch U-100 Insulin 100 unit/mL (3 mL) sub cutaneous pen RxNorm: 360313 90 Unit(s) SQ BID 07/06/2018 07/29/2018 Inactive Pen Needle 31 gauge x 5/16" RxNorm: USE DIRECTED 03/21/2018 No Stop Date Active Levemir FlexTouch U-100 Insulin 100 unit/mL (3 mL) sub cutaneous pen RxNorm: 328873 80 Unit(s) SQ BID 02/15/2018 07/06/2018 Inactive Levemir FlexTouch U-100 Insulin 100 unit/mL (3 mL) sub cutaneous pen RxNorm: 909733 INJECT 105 UNITS SUBCUTANEOUSLY IN THE EVENING 01/24/2018 0 02/15/2018 Inactive Levemir FlexTouch U-100 Insulin 100 unit/mL (3 mL) sub cutaneous pen RxNorm: 079955 INJECT 105 UNITS SUBCUTANEOUSLY IN THE EVENING 12/26/2017 0 01/23/2018 Inactive Novolog Flexpen U-100 Insulin aspart 100 unit/mL (3 mL ) subcutaneous RxNorm: 3098288 INJECT SUBCUTANEOUSLY NEEDED PER SLIDING SCALE 12/25/2017 02/21/2019 Inactive Levemir FlexTouch U-100 Insulin 100 unit/mL (3 mL) sub cutaneous pen RxNorm: 943903 70 Unit(s) SQ BID 11/03/2017 11/03/2017 Inactive Levemir FlexTouch U-100 Insulin 100 unit/mL (3 mL) sub cutaneous pen RxNorm: 935488 105 Unit(s) SQ QPM 11/02/2017 11/02/2017 Inactive Levemir FlexTouch U-100 Insulin 100 unit/mL (3 mL) sub cutaneous pen RxNorm: 324618 105 Unit(s) SQ QPM Needs updated labs 11/01/2017 11/01/2017 [place] Levemir FlexTouch U-100 Insulin 100 unit/mL (3 mL) sub cutaneous pen RxNorm: 818121 Unit(s) 105 Unit(s) SQ QPM 09/18/2017 09/18/2017 Inactive Levemir FlexTouch U-100 Insulin 100 unit/mL (3 mL) sub cutaneous pen RxNorm: 522269 105 Unit(s) SQ QPM 08/07/2017 09/18/2017 Inactive cephalexin 500 mg capsule RxNorm: 477675 1 Capsule(s) PO BID 201708/02/2017 Inactive Levemir FlexTouch U-100 Insulin 100 unit/mL (3 mL) sub cutaneous pen RxNorm: 892667 105 Unit(s) SQ QPM 06/07/2017 06/07/2017 Inactive Levemir FlexTouch 100 unit/mL (3 mL) subcutaneous insulin pe n RxNorm: 608602 105 Unit(s) SQ QPM 05/11/2017 06/07/2017 Inactive Lipitor 40 mg tablet RxNorm: 432607 1 Tablet(s) PO QD 04/05/201703/13 Inactive nystatin 100,000 unit/gram topical ointment RxNorm: 320901 1 Gr am(s) TOP BID 04/05/2017 05/02/2017 Inactive Lipitor 40 mg tablet RxNorm: 267575 1.5 Tablet(s) PO QD 04/05/2017 Inactive Diovan 320 mg tablet RxNorm: 788058 1 Tablet(s) PO QD 04/05/201702/10 Inactive Levemir FlexTouch 100 unit/mL (3 mL) subcutaneous insulin pe n RxNorm: 809299 105 Unit(s) SQ QPM 04/05/2017 04/05/2017 Inactive Levemir FlexTouch 100 unit/mL (3 mL) subcutaneous insulin pe n RxNorm: 255815 90 Unit(s) SQ QPM LAST REFILL UNTIL LABS AND APPOINTMENT!!!! 04/05/2017 Inactive Novolog Flexpen 100 unit/mL subcutaneous RxNorm: 0716016 Unit(s) INJECT SUBCUTANEOUSLY NEEDED PER SLIDING SCALE---NEEDS UPDATED LABS 03/07/2017 12/03/2018 Inactive Levemir FlexTouch 100 unit/mL (3 mL) subcutaneous insulin pe n RxNorm: 587747 90 Unit(s) SQ QPM LAST REFILL UNTIL LABS AND APPOINTMENT!!!! 02/17/2017 Inactive Levemir FlexTouch 100 unit/mL (3 mL) subcutaneous insulin pe n RxNorm: 082509 90 Unit(s) SQ QPM NEEDS FASTING LABS AND APPOINTMENT BEFORE FURTHER REFILLS 12/22/2016 02/17/2017 Inactive Novolog Flexpen U-100 Insulin aspart 100 unit/mL subcutaneou s RxNorm: 6586744 Unit(s) INJECT SUBCUTANEOUSLY NEEDED PER SLIDING SCALE---NEEDS UPDATED LABS 11/28/2016 03/07/2017 Inactive Levemir FlexTouch 100 unit/mL (3 mL) subcutaneous insulin pe n RxNorm: 291351 90 Unit(s) VAG QPM 11/08/2016 12/22/2016 Inactive Levemir FlexTouch 100 unit/mL (3 mL) subcutaneous insulin pe n RxNorm: 654416 90 Unit(s) VAG QPM 11/08/2016 12/21/2016 Inactive Levemir FlexTouch 100 unit/mL (3 mL) subcutaneous insulin pe n RxNorm: 200932 80 Unit(s) VAG QPM 09/05/2016 11/08/2016 Inactive Levemir FlexTouch 100 unit/mL (3 mL) subcutaneous insulin pe n RxNorm: 783702 85 Unit(s) SQ QD 07/22/2016 09/05/2016 Inactive Levemir FlexTouch 100 unit/mL (3 mL) subcutaneous insulin pe n RxNorm: 333289 85 Unit(s) SQ QD 07/04/2016 07/21/2016 Inactive Levemir FlexTouch 100 unit/mL (3 mL) subcutaneous insulin pe n RxNorm: 423414 85 Unit(s) SQ QD 06/14/2016 06/19/2016 Inactive Levemir FlexTouch 100 unit/mL (3 mL) subcutaneous insulin pe n RxNorm: 155467 85 Unit(s) SQ QD 05/03/2016 05/22/2016 Inactive Levemir FlexTouch 100 unit/mL (3 mL) subcutaneous insulin pe n RxNorm: 116172 85 Unit(s) SQ QD 05/03/2016 05/02/2016 Inactive Levemir FlexTouch 100 unit/mL (3 mL) subcutaneous insulin pe n RxNorm: 868663 85 Unit(s) SQ QD 03/14/2016 04/22/2016 Inactive cefuroxime axetil 250 mg tablet RxNorm: 770350 1 Tablet(s) PO BID 0 02/16/2016 02/25/2016 Inactive Levemir FlexTouch 100 unit/mL (3 mL) subcutaneous insulin pe n RxNorm: 062533 85 Unit(s) SQ QD 02/03/2016 03/13/2016 Inactive Levemir FlexTouch 100 unit/mL (3 mL) subcutaneous insulin pe n RxNorm: 805041 85 Unit(s) SQ QD 12/07/2015 02/02/2016 Inactive Pen Needle 31 gauge x 5/16" RxNorm: USE DIRECTED 11/19/201510/2015 Inactive Levemir FlexTouch 100 unit/mL (3 mL) subcutaneous insulin pe n RxNorm: 640397 INJECT 75 UNITS SUBCUTANEOUSLY ONCE DAILY; NEED LABS AND APPT 10/06/2015 12/04/2015 Inactive Novolog Flexpen 100 unit/mL subcutaneous RxNorm: 6129508 INJECT SUBCUTANEOUSLY NEEDED PER SLIDING SCALE 09/15/2015 11/28/2016 Inactive Levemir FlexTouch 100 unit/mL (3 mL) subcutaneous insulin pe n RxNorm: 892075 75 Unit(s) SQ QD Needs lab and appointment 07/13/2015 10/05/2015 Inactive Lyrica 75 mg capsule RxNorm: 552680 1 Capsule(s) PO BID 06/24/2015 Inactive Levemir FlexTouch 100 unit/mL (3 mL) subcutaneous insulin pe n RxNorm: 686289 75 Unit(s) SQ QD Needs lab and appointment 06/23/2015 07/12/2015 Inactive Novolog Flexpen 100 unit/mL subcutaneous RxNorm: 5900348 Unit(s) SQ as needed Sliding scale 06/15/2015 09/14/2015 Inactive Flonase Allergy Relief 50 mcg/actuation nasal spray,suspensi on RxNorm: 2 Grant NASAL QHS 06/11/2015 12/02/2015 Inactive prednisone 20 mg tablet RxNorm: 406021 1 Tablet(s) PO T ID for 3 days then 1 po BID for 3 days then one daily for 3 days 06/11/2015 12/02/2015 Inactiv e cefdinir 300 mg capsule RxNorm: 710405 2 Capsule(s) PO QD 06/11/2015 06/24/2015 Inactive Levemir FlexTouch 100 unit/mL (3 mL) subcutaneous insulin pe n RxNorm: 092173 75 Unit(s) SQ QD Needs lab and appointment 05/29/2015 06/22/2015 Inactive Novolog 100 unit/mL subcutaneous solution RxNorm: 286752 Unit(s) SQ Inject as directed using sliding scale B 05/29/2015 12/03/2018 Inactive Levemir Flexpen 100 unit/mL (3 mL) solution subcutaneo us insulin pen RxNorm: 300424 INJECT 75 UNITS SUBCUTANEOUSLY EVERY DAY 05/11/2015 05/29/2015 Inactive Levemir FlexTouch 100 unit/mL (3 mL) subcutaneous insulin pe n RxNorm: 137119 75 Unit(s) SQ QHS 03/30/2015 12/03/2018 Inactive Levemir FlexTouch 100 unit/mL (3 mL) subcutaneous insulin pe n RxNorm: 994760 75 Unit(s) SQ QHS 03/09/2015 03/29/2015 Inactive Contour Test Strips RxNorm: Miscellaneous 01/27/2015 No Stop Date Ac tive Novolog 100 unit/mL subcutaneous solution RxNorm: 852471 Unit(s) SQ Inject as directed using sliding scale B 01/27/2015 05/29/2015 Inactive Levemir Flexpen 100 unit/mL (3 mL) solution subcutaneo us insulin pen RxNorm: 657475 INJECT 75 UNITS SUBCUTANEOUSLY EVERY DAY 11/05/2014 03/09/2015 Inactive Levemir Flexpen 100 unit/mL (3 mL) solution subcutaneo us insulin pen RxNorm: 360691 INJECT 75 UNITS SUBCUTANEOUSLY EVERY DAY 08/13/2014 10/31/2014 Inactive Novolog 100 unit/mL subcutaneous solution RxNorm: 305920 Unit(s) SQ Inject as directed using sliding scale B 07/15/2014 01/26/2015 Inactive Apidra SoloStar 100 unit/mL subcutaneous insulin pen RxNorm: 124229 Unit(s) SQ INJECT DIRECTED USING SLIDING SCALE B 07/11/2014 07/14/2014 Inactiv e Diovan 320 mg tablet RxNorm: 055976 1 Tablet(s) PO QD 06/10/201405/13 Inactive Apidra SoloStar 100 unit/mL subcutaneous insulin pen RxNorm: 649123 Unit(s) SQ INJECT DIRECTED USING SLIDING SCALE B 04/18/2014 07/10/2014 Inactiv e Levemir Flexpen 100 unit/mL (3 mL) solution subcutaneo us insulin pen RxNorm: 863831 Unit(s) SQ INJECT 75 UNITS SUBCUTANEOUSLY EVERY DAY 09/02/27/2014 Inactive [SAVINGS FOR UNINSURED PATIE NTS -- BIN:[id number], PCN: [id number], Group: [id number], ID# [id number], Process claim through [employer], for questions: . THIS IS NOT INSURANCE.] Apidra SoloStar 100 unit/mL subcutaneous insulin pen RxNorm: 755616 Unit(s) SQ INJECT DIRECTED USING SLIDING SCALE B 09/05/2013 04/17/2014 Inactiv e Pen Needle 31 gauge x 5/16" RxNorm: Miscellaneou s USE DIRECTED WITH LEVEMIR AND APIDRA 08/23/2013 11/18/2015 Inactive Prograf 1 mg capsule RxNorm: 725473 2 Capsule(s) PO BID Generic OK to fill 08/21/2013 05/19/2019 Inactive Diovan 320 mg tablet RxNorm: 893191 1 Tablet(s) PO QD 05/30/201305/12 Inactive fluoxetine 20 mg tablet RxNorm: 535031 1 Tablet(s) PO QAM 05/30/2013 07/31/2013 Inactive fluoxetine 20 mg tablet RxNorm: 117246 1 Tablet(s) PO QAM 04/29/2013 05/29/2013 Inactive amlodipine 5 mg tablet RxNorm: 821215 1 Tablet(s) PO QD 04/29/2013 Inactive ketoconazole 2 % topical cream RxNorm: 944070 Application TOP B ID for 2-4wks 04/29/2013 05/12/2013 Inactive Diovan 320 mg tablet RxNorm: 610347 1 Tablet(s) PO QD 04/29/201305/14 Inactive Apidra SoloStar 100 unit/mL subcutaneous insulin pen RxNorm: 451478 Unit(s) SQ Sliding Scale B 02/19/2013 09/05/2013 Inactive Levemir Flexpen 100 unit/mL (3 mL) solution subcutaneo us insulin pen RxNorm: 189776 Insulin Pen SQ INJECT 75 UNITS SUBCUTANEOUSLY EVERY DAY 01/1002/28/2014 Inactive Septra DS 800 mg-160 mg tablet RxNorm: 228974 1 Tablet(s) PO BI D antibiotic 01/01/2013 01/07/2013 Inactive ketoconazole 2 % topical cream RxNorm: 727262 1 Application TOP BID 01/01/2013 01/14/2013 Inactive Levemir Flexpen 100 unit/mL (3 mL) Sub-Q Insulin Pen RxNorm: 486007 Unit(s) SQ INJECT 75 UNITS SUB-Q ONCE A DAY 12/07/2012 No Stop Date Active Levemir Flexpen 100 unit/mL (3 mL) Sub-Q Insulin Pen RxNorm: 812746 Unit(s) SQ INJECT 75 UNITS SUB-Q ONCE A DAY 10/22/2012 12/07/2012 Inactive Levemir Flexpen 100 unit/mL (3 mL) Sub-Q Insulin Pen RxNorm: 566093 75 Unit(s) SQ QHS 08/20/2012 10/22/2012 Inactive Diovan 320 mg tablet RxNorm: 020139 1 Tablet(s) PO QD 07/30/201204/12 Inactive Levemir Flexpen 100 unit/mL (3 mL) Sub-Q Insulin Pen RxNorm: 876630 Insulin Pen SQ INJECT 75 UNITS SUB-Q ONCE A DAY 07/30/2012 10/21/2012 Inactive Levemir Flexpen 100 unit/mL (3 mL) Sub-Q Insulin Pen RxNorm: 215141 75 Unit(s) SQ QHS 07/30/2012 08/19/2012 Inactive Levemir Flexpen 100 unit/mL (3 mL) Sub-Q Insulin Pen RxNorm: 007313 75 Unit(s) SQ QHS 07/30/2012 07/29/2012 Inactive Diovan 320 mg tablet RxNorm: 287980 1 Tablet(s) PO QD 06/21/201202/2013 Inactive Diovan 320 mg tablet RxNorm: 605614 1 Tablet(s) PO QD 06/21/201202/2013 Inactive Diovan 320 mg tablet RxNorm: 961642 1 Tablet(s) PO QD 06/21/201207/13 Inactive CellCept 250 mg capsule RxNorm: 173097 4 Capsule(s) PO BID 06/14/19 13 05/19/2019 Inactive Prograf 1 mg capsule RxNorm: 019360 2 Capsule(s) PO BID Generic OK to fill 06/14/2012 06/20/2012 Inactive Apidra SoloStar 100 unit/mL Sub-Q Insulin Pen RxNorm: 928482 Unit(s) SQ Sliding Scale B 06/13/2012 12/03/2018 Inactive Levemir Flexpen 100 unit/mL (3 mL) Sub-Q Insulin Pen RxNorm: 666180 75 Unit(s) SQ QD 06/13/2012 No Stop Date Active Apidra SoloStar 100 unit/mL Sub-Q Insulin Pen RxNorm: 401425 Unit(s) SQ Sliding Scale B 06/13/2012 No Stop Date Active One Touch Delica Lancets RxNorm: Miscellaneous 06/13/2012 04/04/2017 Inactive Lipitor 40 mg tablet RxNorm: 785078 1 Tablet(s) PO QD 05/30/201208/10 Inactive Diovan 320 mg tablet RxNorm: 046313 1 Tablet(s) PO QD 05/30/201202/2013 Inactive Tricor 145 mg tablet RxNorm: 210399 1 Tablet(s) PO QD 05/30/201208/10 Inactive Lipitor 20 mg Tab RxNorm: 034205 1 Tablet(s) PO QD 09/12/2011 012 Inactive Synthroid 50 mcg Tab RxNorm: 428138 1 Tablet(s) PO QD 09/12/201111/11 Inactive Diovan 320 mg tablet RxNorm: 502087 1 Tablet(s) PO QD 09/12/201102/11 Inactive amlodipine 5 mg tablet RxNorm: 514541 1 Tablet(s) PO QD 09/12/2011 Inactive Diovan 320 mg Tab RxNorm: 887945 1 Tablet(s) PO QD 06/14/2011 012 Inactive Diovan 160 mg Tab RxNorm: 475116 1 Tablet(s) PO QD 03/03/2011 012 Inactive cefdinir 300 mg Cap RxNorm: 067207 2 Capsule(s) PO QD 01/27/201101/11 Inactive Synthroid 50 mcg Tab RxNorm: 015778 1 Tablet(s) PO QD 12/02/201001/11 Inactive Multivitamin & Mineral Formula Tab RxNorm: 1 Tablet(s) PO QD No St art Date Active Miralax 17 gram/dose oral powder RxNorm: 778532 PO BID in 6-8 o unces of water No Start Date Active Tylenol Extra Strength 500 mg tablet RxNorm: 556001 Tablet(s) P O as needed No Start Date Active Tricor Oral RxNorm: Oral No Start Date 05/29/2012 Inactive MagOx 400 mg tablet RxNorm: 892121 1 Tablet(s) PO QD No Start Date Inactive sodium bicarbonate Oral RxNorm: Oral No Start Date 06/19/2016 I nactive Fish Oil 1,000 mg capsule RxNorm: 1 Capsule(s) PO QD No Start Date 04/04/2017 Inactive Novofine Misc RxNorm: Miscellaneous No Start Date 06/12/2012 Inactiv e Percocet 5 mg-325 mg tablet RxNorm: 4481840 Tablet(s) PO as need ed Dr Parson No Start Date 04/04/2017 Inactive Contour Test Strips RxNorm: miscellaneous No Start Date 01/26/2015 I nactive Prograf 1 mg capsule RxNorm: 399548 2 Capsule(s) PO BID No Start Da te 06/13/2012 Inactive Zantac 150 mg Tab RxNorm: 739356 Tablet(s) PO PRN No Start Date 12/01 Inactive Levemir FlexTouch 100 unit/mL (3 mL) subcutaneous insulin pe n RxNorm: 655370 75 Unit(s) SQ QHS No Start Date 03/08/2015 Inactive CellCept 250 mg capsule RxNorm: 707554 4 Capsule(s) PO BID No Start Date 06/13/2012 Inactive Novolog 100 unit/mL subcutaneous solution RxNorm: 958834 Unit(s) SQ Inject as directed using sliding scale B No Start Date 07/14/2014 Inactive Novolog Flexpen 100 unit/mL subcutaneous RxNorm: 1440791 Unit(s) SQ as needed Sliding scale No Start Date 06/14/2015 Inactive Apidra SoloStar 100 unit/mL Sub-Q Insulin Pen RxNorm: 296134 Unit(s) SQ Sliding Scale B No Start Date 06/12/2012 Inactive Levemir FlexTouch U-100 Insulin 100 unit/mL (3 mL) sub cutaneous pen RxNorm: 322736 70 Unit(s) SQ BID No Start Date 02/06/2018 Inactive Pen Needle 31 X 5/16" RxNorm: Miscellaneous No Start Date 08/23/2013 Inactive Synthroid 50 mcg Tab RxNorm: 453106 1 Tablet(s) PO QD No Start Date 0 09/11/2011 Inactive Levemir Flexpen 100 unit/mL (3 mL) Sub-Q Insulin Pen RxNorm: 773433 70 Unit(s) SQ QHS No Start Date 07/29/2012 Inactive Levemir FlexTouch U-100 Insulin 100 unit/mL (3 mL) sub cutaneous pen RxNorm: 370233 80 Unit(s) SQ BID No Start Date 02/14/2018 Inactive Levemir FlexTouch 100 unit/mL (3 mL) subcutaneous insulin pe n RxNorm: 552596 80 Unit(s) SQ QPM No Start Date 09/04/2016 Inactive Lipitor 40 mg tablet RxNorm: 680080 1 Tablet(s) PO QD No Start Date 1 Inactive Ultram 50 mg tablet RxNorm: 409732 2 Tablet(s) PO TID as needed for pain No Start Date 06/10/2015 Inactive Prograf 1 mg Cap RxNorm: 098335 2 Capsule(s) PO BID No Start Date 02/2012 Inactive insulin needles (disposable) 32 x 5/16" RxNorm: Miscellaneous for use with flex pen No Start Date 04/04/2017 Inactive Levemir FlexTouch U-100 Insulin 100 unit/mL (3 mL) sub cutaneous pen RxNorm: 348647 90 Unit(s) SQ BID No Start Date 07/05/2018 Inactive Levemir Flexpen 100 unit/mL (3 mL) Sub-Q Insulin Pen RxNorm: 612779 65 Unit(s) SQ QD No Start Date 06/12/2012 Inactive pantoprazole 40 mg tablet,delayed release RxNorm: 734332 1 Tabl et(s) PO QD No Start Date 05/19/2019 Inactive Zithromax Z-Mateus 250 mg Tab RxNorm: 641830 Tablet(s) PO No Start Date 06/13/2011 Inactive as directed Lipitor 20 mg Tab RxNorm: 676927 1 Tablet(s) PO QD No Start Date [...] Date S vice Location GLYCOSYLATED HEMOGLOBIN TEST 56294 Hgb A1c 35304-4 13.9 % 0 02/27/2019 Unknown MEAN GLUC 4809043 Calc Mean Gluc 352 mg/dL 02/27/2019 Unkn own MICROALBUMIN URINE RANDOM 14479 U Microalbumin 2259.0 mg /L 02/26/2019 Unknown MICROALBUMIN URINE RANDOM 96815 U Creatinine 143 mg/dL 0 02/26/2019 Unknown MICROALBUMIN URINE RANDOM 31844 ALB/CR Ratio 1579.7 mg/g CR 02/26/2019 Unknown MAGNESIUM 34459 MAGNESIUM 1.4 mEq/L 02/19/2019 Unknown GFR CALC 3160689 GFR Non Afr Amr 37 mL/min 02/19/2019 Unk nown GFR CALC 5451676 GFR Afr Amr 45 mL/min 02/19/2019 Unknown LIPID GROUP 58100 Cholesterol 250 mg/dL 02/19/2019 Unkno wn LIPID GROUP 18560 Triglyceride 465 mg/dL 02/19/2019 Unkn own LIPID GROUP 55638 HDL CHOLESTEROL 30 mg/dL 02/19/2019 U nknown LIPID GROUP 86277 Chol/HDL Ratio 8.33 ratio 02/19/2019 U nknown LIPID GROUP 20732 NON-HDL Chol 220 mg/dL 02/19/2019 Unkn own LIPID GROUP 72096 LDL Cholesterol N/A Trig >400 019 Unknown LIPID GROUP 80802 Fasting Unknown 02/19/2019 Unknown COMPREHENSIVE METABOLIC 32310 AST 20 U/L 2018 Unknown COMPREHENSIVE METABOLIC 44350 ALT 30 U/L 2018 Unknown COMPREHENSIVE METABOLIC 06870 BUN 27 mg/dL 2018 Unknown COMPREHENSIVE METABOLIC 96264 ALBUMIN 3.7 g/dL 2018 Unknown COMPREHENSIVE METABOLIC 11936 CHLORIDE 105 mmol/L 02/19 Unknown COMPREHENSIVE METABOLIC 34058 Bili Total 0.5 mg/dL 02/19 Unknown COMPREHENSIVE METABOLIC 19472 ALK PHOS 79 U/L 2018 Unknown COMPREHENSIVE METABOLIC 61433 SODIUM 137 mmol/L 02/19 Unknown COMPREHENSIVE METABOLIC 86946 CREATININE 2.10 mg/dL 02/10 Unknown COMPREHENSIVE METABOLIC 26165 CALCIUM 9.5 mg/dL 2018 Unknown COMPREHENSIVE METABOLIC 76577 POTASSIUM 4.2 mmol/L 02/19 Unknown COMPREHENSIVE METABOLIC 22278 Total Protein 6.5 g/dL Unknown COMPREHENSIVE METABOLIC 58531 Glucose 202 mg/dL 2018 Unknown COMPREHENSIVE METABOLIC 52156 Bicarbonate 22 mmol/L 02/10 Unknown COMPREHENSIVE METABOLIC 92865 AGAP 10 mmol/L 2018 Unknown LIPID GROUP 56679 Cholesterol 320 mg/dL 08/27/2018 Unkno wn LIPID GROUP 32807 Triglyceride 444 mg/dL 08/27/2018 Unkn own LIPID GROUP 66769 HDL CHOLESTEROL 39 mg/dL 08/27/2018 U nknown LIPID GROUP 27781 Chol/HDL Ratio 8.21 ratio 08/27/2018 U nknown LIPID GROUP 15624 NON-HDL Chol 281 mg/dL 08/27/2018 Unkn own LIPID GROUP 21287 LDL Cholesterol N/A Trig >400 019 Unknown LIPID GROUP 41056 Fasting Unknown 08/27/2018 Unknown PHOSPHORUS 5407788 PHOSPHORUS 2.1 mg/dL 08/24/2018 Unknown PROTEIN/CREAT URINE WITH RATIO 66921|45068 U Protein 515 mg/ dL 08/24/2018 Unknown PROTEIN/CREAT URINE WITH RATIO 41441|31725 U Creatinine 116 mg/dL 08/24/2018 Unknown PROTEIN/CREAT URINE WITH RATIO 58890|60204 Prot:Creat Rat 4440 mg/g 08/24/2018 Unknown MAGNESIUM 02649 MAGNESIUM 1.4 mEq/L 08/24/2018 Unknown GFR CALC 6976844 GFR Non Afr Amr 44 mL/min 08/24/2018 Unk nown GFR CALC 8555744 GFR Afr Amr 53 mL/min 08/24/2018 [place] [address] Glucose TNP:Unknown Can shaw Reason 08/24/2018 [place] [address] CREATININE TNP:Unknown Cancel Reason 08/24/2018 [place] [address] BUN TNP:Unknown Can shaw Reason 08/24/2018 [place] [address] SODIUM TNP:Unknown Can shaw Reason 08/24/2018 [place] [address] POTASSIUM TNP:Unknown Cancel Reason 08/24/2018 [place] [address] CHLORIDE TNP:Unknown Can shaw Reason 08/24/2018 [place] [address] Bicarbonate TNP:Unknow n Cancel Reason 08/24/2018 [place] [address] AGAP TNP:Unknown Can shaw Reason 08/24/2018 [place] [address] CALCIUM TNP:Unknown Can shaw Reason 08/24/2018 Unknown COMPREHENSIVE METABOLIC 54639 AST 21 U/L 2018 Unknown COMPREHENSIVE METABOLIC 58583 ALT 35 U/L 2018 Unknown COMPREHENSIVE METABOLIC 25130 BUN 25 mg/dL 2018 Unknown COMPREHENSIVE METABOLIC 96528 ALBUMIN 4.5 g/dL 2018 Unknown COMPREHENSIVE METABOLIC 32630 CHLORIDE 106 mmol/L 08/24 Unknown COMPREHENSIVE METABOLIC 74689 Bili Total 0.4 mg/dL 08/24 Unknown COMPREHENSIVE METABOLIC 81082 ALK PHOS 64 U/L 2018 Unknown COMPREHENSIVE METABOLIC 30289 SODIUM 141 mmol/L 08/24 Unknown COMPREHENSIVE METABOLIC 80116 CREATININE 1.81 mg/dL 08/10 Unknown COMPREHENSIVE METABOLIC 53599 CALCIUM 10.3 mg/dL 08/24 Unknown COMPREHENSIVE METABOLIC 13957 POTASSIUM 3.4 mmol/L 08/24 Unknown COMPREHENSIVE METABOLIC 13741 Total Protein 7.2 g/dL Unknown COMPREHENSIVE METABOLIC 92850 Glucose 101 mg/dL 2018 Unknown COMPREHENSIVE METABOLIC 97838 Bicarbonate 23 mmol/L 08/10 Unknown COMPREHENSIVE METABOLIC 81013 AGAP 12 mmol/L 2018 Unknown UA W/MICR 29542 UA Urine Appear Normal 08/24/2018 Unk nown UA W/MICR 11199 UA Protein 3+ 08/24/2018 Unknown UA W/MICR 29546 UA Hemoglobin Trace 08/24/2018 Unkno wn UA W/MICR 91521 UA Glucose 3+ 08/24/2018 Unknown UA W/MICR 86286 UA Ketones Negative 08/24/2018 Unknown UA W/MICR 04234 UA pH 6.0 08/24/2018 Unknown UA W/MICR 07985 U Spec [place] 1.025 08/24/2018 Unkn own UA W/MICR 15244 UA Bilirubin Negative 08/24/2018 Unknow n UA W/MICR 00479 UA Leuk Esteras Negative 08/24/2018 Unk nown UA W/MICR 41367 UA Nitrite NEG 08/24/2018 Unknown UA W/MICR 20625 UA WBC/hpf 1 08/24/2018 Unknown UA W/MICR 78283 UA RBC auto 12.9 /uL 08/24/2018 Unknown UA W/MICR 53197 UA RBC hpf 2 08/24/2018 Unknown UA W/MICR 82672 UA WBC auto 5.9 /uL 08/24/2018 Unknown UA W/MICR 50549 UA SQ EPI auto 5.2 /uL 08/24/2018 Unkn own UA W/MICR 20768 UA H Cast auto 0.10 /uL 08/24/2018 Unkn own PROGRAF [id number] Prograf 7.3 ng/mL 08/24/2018 Unknown MICROALBUMIN URINE RANDOM 64217 U Microalbumin 3485.2 mg /L 08/24/2018 Unknown MICROALBUMIN URINE RANDOM 73722 U Creatinine 116 mg/dL 0 08/24/2018 Unknown MICROALBUMIN URINE RANDOM 38057 ALB/CR Ratio 3004.5 mg/g CR 08/24/2018 Unknown GLYCOSYLATED HEMOGLOBIN TEST 82121 Hgb A1c 62722-8 13.3 % 0 06/29/2018 Unknown MEAN GLUC 5660603 Calc Mean Gluc 335 mg/dL 06/29/2018 Unkn own COMPREHENSIVE METABOLIC 35768 AST 17 U/L 2017 Unknown COMPREHENSIVE METABOLIC 22656 ALT 24 U/L 2017 Unknown COMPREHENSIVE METABOLIC 15226 BUN 24 mg/dL 2017 Unknown COMPREHENSIVE METABOLIC 02641 ALBUMIN 3.9 g/dL 2017 Unknown COMPREHENSIVE METABOLIC 47280 CHLORIDE 108 mmol/L 02/06 Unknown COMPREHENSIVE METABOLIC 58179 Bili Total 0.6 mg/dL 02/06 Unknown COMPREHENSIVE METABOLIC 72430 ALK PHOS 67 U/L 2017 Unknown COMPREHENSIVE METABOLIC 49891 SODIUM 140 mmol/L 02/06 Unknown COMPREHENSIVE METABOLIC 02795 CREATININE 1.75 mg/dL 01/11 Unknown COMPREHENSIVE METABOLIC 96449 CALCIUM 9.6 mg/dL 2017 Unknown COMPREHENSIVE METABOLIC 35502 POTASSIUM 3.8 mmol/L 02/06 Unknown COMPREHENSIVE METABOLIC 34940 Total Protein 7.1 g/dL Unknown COMPREHENSIVE METABOLIC 58080 Glucose 62 mg/dL 2017 Unknown COMPREHENSIVE METABOLIC 12741 Bicarbonate 23 mmol/L 01/11 Unknown COMPREHENSIVE METABOLIC 26305 AGAP 9 mmol/L 2017 Unknown GLYCOSYLATED HEMOGLOBIN TEST 84291 Hgb A1c 16905-5 13.0 % 0 02/06/2018 Unknown GFR CALC 9894045 GFR Non Afr Amr 46 mL/min 02/06/2018 Unk nown GFR CALC 4718095 GFR Afr Amr 55 mL/min 02/06/2018 Unknown MICROALBUMIN URINE RANDOM 59106 U Microalbumin 669.0 mg/ L 02/06/2018 Unknown MICROALBUMIN URINE RANDOM 19843 U Creatinine 92 mg/dL 0 02/06/2018 Unknown MICROALBUMIN URINE RANDOM 15022 ALB/CR Ratio 727.2 mg/gC R 02/06/2018 Unknown MEAN GLUC 6653871 Calc Mean Gluc 326 mg/dL 02/06/2018 Unkn own GLYCOSYLATED HEMOGLOBIN TEST 19960 Hgb A1c 60458-0 14.3 % 0 12/03/2015 Unknown THYROID STIMULATING HORMONE 32939 TSH 1.909 uIU/mL 12/03/2015 Unknown MAGNESIUM 53592 MAGNESIUM 1.5 mEq/L 12/03/2015 Unknown GFR CALC 1555744 GFR Non Afr Amr 39 mL/min 12/03/2015 Unk nown GFR CALC 2853161 GFR Afr Amr 48 mL/min 12/03/2015 Unknown MEAN GLUC 5117642 Mean Glucose 364 mg/dL 12/03/2015 Unknow n COMPREHENSIVE METABOLIC 56017 AST 34 U/L 2015 Unknown COMPREHENSIVE METABOLIC 40952 ALT 78 U/L 2015 Unknown COMPREHENSIVE METABOLIC 24509 BUN 29 mg/dL 2015 Unknown COMPREHENSIVE METABOLIC 26285 ALBUMIN 4.3 g/dL 2015 Unknown COMPREHENSIVE METABOLIC 23226 CHLORIDE 93 mmol/L 2015 Unknown COMPREHENSIVE METABOLIC 65334 Bili Total 0.7 mg/dL 12/02 Unknown COMPREHENSIVE METABOLIC 48043 ALK PHOS 83 U/L 2015 Unknown COMPREHENSIVE METABOLIC 94843 SODIUM 125 mmol/L 12/02 Unknown COMPREHENSIVE METABOLIC 28573 CREATININE 2.01 mg/dL 11/11 Unknown COMPREHENSIVE METABOLIC 20890 CALCIUM 9.8 mg/dL 2015 Unknown COMPREHENSIVE METABOLIC 72373 POTASSIUM 4.3 mmol/L 12/02 Unknown COMPREHENSIVE METABOLIC 17612 Total Protein 7.3 g/dL Unknown COMPREHENSIVE METABOLIC 61218 Glucose 542 mg/dL 2015 Unknown COMPREHENSIVE METABOLIC 23842 Bicarbonate 23 mmol/L 11/11 Unknown COMPREHENSIVE METABOLIC 49882 AGAP 9 mmol/L 2015 Unknown COMPREHENSIVE METABOLIC 64373 AST 31 U/L 2013 Unknown COMPREHENSIVE METABOLIC 81936 ALT 52 IU/L 2013 Unknown COMPREHENSIVE METABOLIC 31064 BUN 26 MG/DL 2013 Unknown COMPREHENSIVE METABOLIC 12830 ALBUMIN 4.9 GM/DL 2013 Unknown COMPREHENSIVE METABOLIC 48955 CHLORIDE 108 MMOL/L 07/30 Unknown COMPREHENSIVE METABOLIC 91690 BILI TOT 0.4 MG/DL 2013 Unknown COMPREHENSIVE METABOLIC 80520 ALK PHOS 68 U/L 2013 Unknown COMPREHENSIVE METABOLIC 07566 SODIUM 138 MMOL/L 07/30 Unknown COMPREHENSIVE METABOLIC 49025 CREATININE 2.02 MG/DL 07/13 Unknown COMPREHENSIVE METABOLIC 53302 CALCIUM 10.3 MG/DL 07/30 Unknown COMPREHENSIVE METABOLIC 11048 POTASSIUM 5.0 MMOL/L 07/30 Unknown COMPREHENSIVE METABOLIC 90546 PROT TOT 7.3 GM/DL 2013 Unknown COMPREHENSIVE METABOLIC 08867 Glucose 89 MG/DL 2013 Unknown COMPREHENSIVE METABOLIC 01335 BICARB 24 MMOL/L 2013 Unknown COMPREHENSIVE METABOLIC 27933 ANION GAP 6 MEQ/L 2013 Unknown GFR CALC 4838446 GFR AA 48.0L ML/MIN 07/30/2013 Unknow n GFR CALC 6810077 GFR NON-AA 40.0L ML/MIN 07/30/2013 Unkno wn COMPLETE BLOOD COUNT 9054379 WBC 7.9 10e9/L 07/30/19 14 Unknown COMPLETE BLOOD COUNT 2425063 RBC 4.94 10e12/L 2013 Unknown COMPLETE BLOOD COUNT 2162194 HGB 14.0 g/dL 4 Unknown COMPLETE BLOOD COUNT 6329773 HCT DET 41.5 % 4 Unknown COMPLETE BLOOD COUNT 6368543 MCV 84.0 fL 4 Unknown COMPLETE BLOOD COUNT 8433373 MCH 28.3 pg 4 Unknown COMPLETE BLOOD COUNT 6028355 MCHC 33.7 g/dL 4 Unknown COMPLETE BLOOD COUNT 9536929 PLT 176 10e9/L 07/30/19 14 Unknown COMPLETE BLOOD COUNT 7491588 MPV 11.8 fL 4 Unknown COMPLETE BLOOD COUNT 8137328 CLAYTON % 75.4 % 4 Unknown COMPLETE BLOOD COUNT 7292592 LY % 13.7 % 4 Unknown COMPLETE BLOOD COUNT 4210964 MON % 8.9 % 4 Unknown COMPLETE BLOOD COUNT 9539533 EOS % 1.7 % 4 Unknown COMPLETE BLOOD COUNT 2213398 BASO % 0.3 % 4 Unknown COMPLETE BLOOD COUNT 1022487 RDW 13.4 % 4 Unknown COMPLETE BLOOD COUNT 1303634 ABS CLAYTON 5.96 10e9/L 014 Unknown COMPLETE BLOOD COUNT 2294957 ABS LYMPH 1.08 10e9/L 014 Unknown COMPLETE BLOOD COUNT 1880473 ABS MONO 0.70 10e9/L 014 Unknown COMPLETE BLOOD COUNT 4546214 ABS EOS 0.13 10e9/L 014 Unknown COMPLETE BLOOD COUNT 2851733 ABS BASO 0.02 10e9/L 014 Unknown COMPLETE BLOOD COUNT 1183166 RDW-SD 40.2 fL 4 Unknown C-REACTIVE PROTEIN (CRP) QUANT 26270 CRP 0.2 MG/DL 07/30/2013 Unknown CANCEL 2255713 CANCEL FOOTNOTE 05/23/2012 Unknown PEND CHEM PEND CHEM FOOTNOTE 05/22/2012 Unknown COMPREHENSIVE METABOLIC 70082 AST 61 U/L 2011 Unknown COMPREHENSIVE METABOLIC 51285 ALT 106 U/L 2011 Unknown COMPREHENSIVE METABOLIC 62944 BUN 33 MG/DL 2011 Unknown COMPREHENSIVE METABOLIC 98741 ALBUMIN 5.0 GM/DL 2011 Unknown COMPREHENSIVE METABOLIC 36267 CHLORIDE 89 MMOL/L 2011 Unknown COMPREHENSIVE METABOLIC 85378 BILI TOT 0.6 MG/DL 2011 Unknown COMPREHENSIVE METABOLIC 63339 ALK PHOS 129 U/L 2011 Unknown COMPREHENSIVE METABOLIC 22627 SODIUM 120 MMOL/L 05/21 Unknown COMPREHENSIVE METABOLIC 87778 CREATININE 2.23 MG/DL 05/12 Unknown COMPREHENSIVE METABOLIC 82908 CALCIUM 9.8 MG/DL 2011 Unknown COMPREHENSIVE METABOLIC 69465 POTASSIUM 5.3 MMOL/L 05/21 Unknown COMPREHENSIVE METABOLIC 32836 PROT TOT 7.8 GM/DL 2011 Unknown COMPREHENSIVE METABOLIC 62080 Glucose 789 MG/DL 2011 Unknown COMPREHENSIVE METABOLIC 51558 BICARB 20 MMOL/L 2011 Unknown COMPREHENSIVE METABOLIC 72448 ANION GAP 11 MMOL/L 2011 Unknown GFR CALC 9479074 GFR AA 43.0L ML/MIN 05/21/2012 Unknow n GFR CALC 6159104 GFR NON-AA 36.0L ML/MIN 05/21/2012 Unkno wn THYROID STIMULATING HORMONE 52470 TSH 1.499 uIU/ML 01/27/2011 Unknown FREE T4 73292 FREE T4 1.15 NG/DL 01/27/2011 Unknown Procedures Procedure Codes Date ROUTINE VENIPUNCTURE CPT-4: 30409 02/26/2019 A1C HPLC CPT-4: 85347 02/26/2019 MICROALBUMIN QUANTITATIVE CPT-4: 55175 02/26/2019 ROUTINE VENIPUNCTURE CPT-4: 82729 02/19/2019 METABOLIC PANEL TOTAL CA CPT-4: 80596 02/19/2019 MICROALBUMIN, QUANTITATIVE CPT-4: 04855 02/19/2019 LIPID PANEL CPT-4: 26111 02/19/2019 COMPREHEN METABOLIC PANEL CPT-4: 15807 02/19/2019 ASSAY OF MAGNESIUM CPT-4: 82915 02/19/2019 METABOLIC PANEL TOTAL CA CPT-4: 36120 08/24/2018 COMPREHEN METABOLIC PANEL CPT-4: 54826 08/24/2018 ASSAY OF MAGNESIUM CPT-4: 16212 08/24/2018 MICROALBUMIN QUANTITATIVE CPT-4: 19472 08/24/2018 PROTEIN/CREAT URINE WITH RATIO CPT-4: 49279|42235 9 PHOSPHORUS CPT-4: 9371857 08/24/2018 LIPID PANEL CPT-4: 33993 08/24/2018 ROUTINE VENIPUNCTURE CPT-4: 82245 06/29/2018 A1C HPLC CPT-4: 63054 06/29/2018 URINALYSIS NONAUTO W/O SCOPE CPT-4: 60622 02/06/2018 URINE CULTURE/ COLONY COUNT CPT-4: 83095 02/06/2018 MICROALBUMIN QUANTITATIVE CPT-4: 88524 02/06/2018 ROUTINE VENIPUNCTURE CPT-4: 62939 02/06/2018 COMPREHEN METABOLIC PANEL CPT-4: 16388 02/06/2018 A1C HPLC CPT-4: 36520 02/06/2018 ROUTINE VENIPUNCTURE CPT-4: 44409 11/02/2017 COMPREHEN METABOLIC PANEL CPT-4: 58954 11/02/2017 A1C HPLC CPT-4: 20872 11/02/2017 TDAP VACCINE 7 YRS/> IM CPT-4: 61870 07/27/2017 IMMUNIZATION ADMIN CPT-4: 65768 07/27/2017 URINALYSIS NONAUTO W/O SCOPE CPT-4: 20234 02/16/2016 URINE CULTURE/ COLONY COUNT CPT-4: 03423 02/16/2016 PRESCRIP TRANSMIT VIA ERX SY CPT-4: G8553 02/16/2016 ROUTINE VENIPUNCTURE CPT-4: 45978 12/03/2015 ASSAY THYROID STIM HORMONE CPT-4: 58216 12/03/2015 COMPREHEN METABOLIC PANEL CPT-4: 43661 12/03/2015 A1C HPLC CPT-4: 16528 12/03/2015 ASSAY OF MAGNESIUM CPT-4: 88651 12/03/2015 URINALYSIS NONAUTO W/O SCOPE CPT-4: 42429 12/03/2015 URINE CULTURE/ COLONY COUNT CPT-4: 84712 12/03/2015 URINALYSIS NONAUTO W/O SCOPE CPT-4: 82770 07/30/2013 URINE CULTURE/ COLONY COUNT CPT-4: 20467 07/30/2013 ROUTINE VENIPUNCTURE CPT-4: 46516 07/30/2013 COMPLETE CBC W/AUTO DIFF WBC CPT-4: 55964 07/30/2013 COMPREHEN METABOLIC PANEL CPT-4: 92723 07/30/2013 C-REACTIVE PROTEIN CPT-4: 19087 07/30/2013 ROUTINE VENIPUNCTURE CPT-4: 13538 08/20/2012 ASSAY OF FREE THYROXINE CPT-4: 45143 08/20/2012 ASSAY THYROID STIM HORMONE CPT-4: 49407 08/20/2012 COMPREHEN METABOLIC PANEL CPT-4: 78886 08/20/2012 COMPLETE CBC W/AUTO DIFF WBC CPT-4: 83913 08/20/2012 LIPID PANEL CPT-4: 86218 08/20/2012 A1C GLYCOSYLATED HEMOGLOBIN TEST CPT-4: 26308 013 ASSAY, GLUCOSE, BLOOD QUANT CPT-4: 31271 06/21/2012 ASSAY, GLUCOSE, BLOOD QUANT CPT-4: 59011 05/21/2012 ROUTINE VENIPUNCTURE CPT-4: 63910 05/21/2012 COMPREHEN METABOLIC PANEL CPT-4: 05653 05/21/2012 A1C GLYCOSYLATED HEMOGLOBIN TEST CPT-4: 85288 012 CURRENT SMKLESS TOBACCO USER CPT-4: G8456 06/14/2011 PT VIS DOC USE EHR CER ATCB CPT-4: G8447 06/14/2011 PRESCRIP TRANSMIT VIA ERX SY CPT-4: G8553 06/14/2011 PT VIS DOC USE EHR CER ATCB CPT-4: G8447 03/03/2011 PRESCRIP TRANSMIT VIA ERX SY CPT-4: G8553 03/03/2011 ROUTINE VENIPUNCTURE CPT-4: 99107 01/27/2011 ASSAY OF FREE THYROXINE CPT-4: 00394 01/27/2011 ASSAY THYROID STIM HORMONE CPT-4: 10929 01/27/2011 PT VIS DOC USE EHR CER [...] 1: 158/90 Code: 8480-6 BMI: 34.3 Code: 39933-6 Heart Rate 1: 78 bpm Height: 6'1" Respiratory Rate: 20 bpm SpO2: 98% Tempera ture: 36.6 (C) / 97.8 (F) Weight: 260 lbs 11/02/2017 Blood Pressure 1: 134/92 Code: 8480-6 BMI: 32.3 Code: 27488-1 Heart Rate 1: 72 bpm Height: 6'1" SpO2: 98% Temperature: 36.4 (C) / 97.5 (F) Weight: 245 lbs 07/27/2017 Blood Pressure 1: 136/64 Code: 8480-6 BMI: 30.9 Code: 18471-8 Heart Rate 1: 78 bpm Height: 6'1" Respiratory Rate: 22 bpm SpO2: 98% Tempera ture: 36.4 (C) / 97.6 (F) Weight: 234 lbs 04/05/2017 Blood Pressure 1: 126/90 Code: 8480-6 BMI: 33.5 Code: 83590-6 Heart Rate 1: 76 bpm Height: 6'1" Respiratory Rate: 20 bpm SpO2: 97% Tempera ture: 37.0 (C) / 98.6 (F) Weight: 254 lbs 06/20/2016 Blood Pressure 1: 122/74 Code: 8480-6 BMI: 35.2 Code: 32713-7 Heart Rate 1: 80 bpm Height: 6'1" Respiratory Rate: 20 bpm SpO2: 97% Tempera ture: 36.9 (C) / 98.5 (F) Weight: 267 lbs 02/16/2016 Blood Pressure 1: 136/82 Code: 8480-6 BMI: 36.4 Code: 88191-8 Heart Rate 1: 66 bpm Height: 6'1" Respiratory Rate: 18 bpm SpO2: 96% Tempera ture: 36.4 (C) / 97.6 (F) Weight: 276 lbs 12/03/2015 Blood Pressure 1: 122/86 Code: 8480-6 BMI: 39.2 Code: 07127-2 Heart Rate 1: 76 bpm Height: 6' Respiratory Rate: 20 bpm Temperature: 37 .1 (C) / 98.7 (F) Weight: 289 lbs 06/24/2015 Blood Pressure 1: 136/84 Code: 8480-6 BMI: 40.7 Code: 11148-7 Heart Rate 1: 84 bpm Height: 6' Respiratory Rate: 20 bpm Temperature: 36 .9 (C) / 98.4 (F) Weight: 300 lbs 06/11/2015 Blood Pressure 1: 160/82 Code: 8480-6 BMI: 40.4 Code: 04915-5 Heart Rate 1: 82 bpm Height: 6' Respiratory Rate: 22 bpm Temperature: 36 .5 (C) / 97.7 (F) Weight: 298 lbs 07/17/2014 Blood Pressure 1: 132/84 Code: 8480-6 BMI: 41.0 Code: 25766-8 Heart Rate 1: 76 bpm Height: 6'1" Respiratory Rate: 20 bpm Temperature: 36 .9 (C) / 98.4 (F) Weight: 311 lbs 10/31/2013 Blood Pressure 1: 132/80 Code: 8480-6 BMI: 41.2 Code: 89453-7 Heart Rate 1: 84 bpm Height: 6'1" Respiratory Rate: 22 bpm Temperature: 36 .1 (C) / 97.0 (F) Weight: 312 lbs 08/01/2013 Blood Pressure 1: 142/86 Code: 8480-6 BMI: 42.4 Code: 63488-4 Heart Rate 1: 84 bpm Height: 6' [...] 1: 156/108 Code: 8480-6 BMI: 41.9 Code: 75600-3 Heart Rate 1: 92 bpm Height: 6' Respiratory Rate: 20 bpm Temperature: 36 .9 (C) / 98.4 (F) Weight: 309 lbs 02/27/2013 Blood Pressure 1: 162/114 Code: 8480-6 BMI: 41.0 Code: 17435-2 Heart Rate 1: 84 bpm Height: 6' Respiratory Rate: 20 bpm Temperature: 36 .7 (C) / 98.0 (F) Weight: 302 lbs 01/01/2013 Blood Pressure 1: 138/86 Code: 8480-6 BMI: 41.0 Code: 38843-1 Heart Rate 1: 76 bpm Height: 6' Respiratory Rate: 20 bpm Temperature: 36 .7 (C) / 98.0 (F) Weight: 302 lbs 11/27/2012 Blood Pressure 1: 136/92 Code: 8480-6 BMI: 41.2 Code: 47333-4 Heart Rate 1: 80 bpm Height: 6' Respiratory Rate: 20 bpm Temperature: 36 .6 (C) / 97.8 (F) Weight: 304 lbs 08/28/2012 Blood Pressure 1: 126/80 Code: 8480-6 BMI: 41.8 Code: 72100-1 Heart Rate 1: 80 bpm Height: 6' Respiratory Rate: 20 bpm Temperature: 36 .4 (C) / 97.6 (F) Weight: 308 lbs 07/03/2012 Blood Pressure 1: 114/80 Code: 8480-6 BMI: 42.3 Code: 01865-0 Heart Rate 1: 72 bpm Height: 6' Respiratory Rate: 20 bpm Temperature: 36 .6 (C) / 97.9 (F) Weight: 312 lbs 06/21/2012 Blood Pressure 1: 152/100 Code: 8480-6 BMI: 43.3 Code: 21689-3 Heart Rate 1: 72 bpm Height: 6' Temperature: 36.8 (C) / 98.2 (F) Weight: 319 lbs 05/30/2012 Blood Pressure 1: 122/78 Code: 8480-6 BMI: 43.0 Code: 35772-0 Heart Rate 1: 72 bpm Height: 6' Respiratory Rate: 20 bpm Temperature: 36 .7 (C) / 98.0 (F) Weight: 317 lbs 05/21/2012 Blood Pressure 1: 126/94 Code: 8480-6 BMI: 44.2 Code: 46688-4 Heart Rate 1: 92 bpm Height: 6' Respiratory Rate: 20 bpm Temperature: 36 .6 (C) / 97.9 (F) Weight: 326 lbs 01/24/2012 Blood Pressure 1: 122/90 Code: 8480-6 BMI: 44.5 Code: 14322-4 Heart Rate 1: 76 bpm Height: 6' Respiratory Rate: 20 bpm Temperature: 36 .8 (C) / 98.2 (F) Weight: 328 lbs 09/21/2011 Blood Pressure 1: 116/80 Code: 8480-6 BMI: 44.1 Code: 42531-4 Heart Rate 1: 92 bpm Height: 6' Respiratory Rate: 20 bpm Temperature: 36 .7 (C) / 98.1 (F) Weight: 325 lbs 09/12/2011 Blood Pressure 1: 166/110 Code: 8480-6 BMI: 45.0 Code: 13260-1 Heart Rate 1: 80 bpm Height: 6' Respiratory Rate: 20 bpm Temperature: 36 .5 (C) / 97.7 (F) Weight: 332 lbs 06/14/2011 Blood Pressure 1: 142/84 Code: 8480-6 BMI: 45.6 Code: 23842-5 Heart Rate 1: 104 bpm Height: 6' Respiratory Rate: 20 bpm Temperature: 36 .4 (C) / 97.5 (F) Weight: 336 lbs 03/03/2011 Blood Pressure 1: 130/96 Code: 8480-6 Heart Rate 1: 86 bpm Temperature: 36.1 (C) / 97.0 (F) Weight: 327 lbs 01/27/2011 Blood Pressure 1: 142/96 Code: 8480-6 BMI: 42.0 Code: 42180-4 Heart Rate 1: 72 bpm Height: 6'2" [...] Right lower quadrant pain[ICD10: R10.31] [facility] CPT[facility]: 86891 05/20/2019 ([id number]) OFFICE/OUTPATIENT VISIT EST Diagnosis: Essential (primary) hypertension[ICD10: I10] Diagnosis: 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, 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] Diagnosis: Kidney transplant status[ICD10: Z94.0] Diagnosis: Chronic kidney disease, stage 3 (moderate)[ICD10: N18.3] Diagnosis: Mixed hyperlipidemia[ICD10: E78.2] [facility] CPT-4: 14225 02/26/2019 ([id number]) NURSE/OUTPATIENT VISIT EST Diagnosis: 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, 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] Diagnosis: Essential (primary) hypertension[ICD10: I10] Diagnosis: Other specified hypothyroidism[ICD10: E03.8] Diagnosis: Mixed hyperlipidemia[ICD10: E78.2] Galina SMITH [employer] CPT-4: 29708 02/19/2019 ([id number]) NURSE/OUTPATIENT VISIT EST Diagnosis: Kidney transplant status[ICD10: Z94.0] 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] Diagnosis: Other manager terminal (current) drug therapy[ICD10: Z79.899] Diagnosis: Encounter for aftercare following other organ transplant[ICD10: Z48.298] Diagnosis: Mixed hyperlipidemia[ICD10: E78.2] Galina WARREN SAFCellKarol SMITH [employer] CPT-4: 28057 08/24/2018 ([id number]) NURSE/OUTPATIENT VISIT EST Diagnosis: Type 2 diabetes mellitus with diabetic neuropathy, unspecified[ICD10: E11.40] Diagnosis: Type 2 diabetes mellitus with hyperglycemia[ICD10: E11.65] 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] Diagnosis: Essential (primary) hypertension[ICD10: I10] Galina [employer] CPT-4: 55392 06/29/2018 ([id number]) OFFICE/OUTPATIENT VISIT EST Diagnosis: Slow transit constipation[ICD10: K59.01] Diagnosis: Epigastric pain[ICD10: R10.13] Diagnosis: Type 2 diabetes mellitus with hyperglycemia[ICD10: E11.65] Coleen SMITH [employer] CPT-4: 27306 06/26/2018 ([id number]) OFFICE/OUTPATIENT VISIT EST Diagnosis: Right lower quadrant pain[ICD10: R10.31] Diagnosis: Type 2 diabetes mellitus with diabetic neuropathy, unspecified[ICD10: E11.40] Coleen SMITH [employer] CPT-4: 65398 ([id number]) OFFICE/OUTPATIENT VISIT EST Diagnosis: Type 2 diabetes mellitus with hyperglycemia[ICD10: E11.65] Diagnosis: Mixed hyperlipidemia[ICD10: E78.2] Diagnosis: Essential (primary) hypertension[ICD10: I10] Coleen SMITH [facility] CPT-4: 63099 11/02/2017 ([id number]) PREV VISIT EST AGE 18-39 Diagnosis: Encounter for general adult medical examination with abnormal findings[ICD10: Z00.01] Diagnosis: Abrasion of right hand, initial encounter[ICD10: S60.511A] 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] Coleen SMITH [facility] CPT-4: 68234 OFFICE/OUTPATIENT VISIT EST 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] Diagnosis: Tinea pedis[ICD10: B35.3] Coleen ARTEAGA [facility] CPT-4: 64120 04/05/2017 ([id number]) OFFICE/OUTPATIENT VISIT EST Diagnosis: 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, 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] Diagnosis: Mixed hyperlipidemia[ICD10: E78.2] Diagnosis: Essential (primary) hypertension[ICD10: I10] [facility] 05322 06/20/2016 ([id number]) OFFICE/OUTPATIENT VISIT EST Diagnosis: Urinary tract infection, site not specified[ICD10: N39.0] Missy SMITH [facility] CPT-4: 10806 02/16/2016 ([id number]) OFFICE/OUTPATIENT VISIT EST Diagnosis: Type 2 diabetes mellitus with hyperglycemia[ICD10: E11.65] Diagnosis: Cramp and spasm[ICD10: R25.2] Diagnosis: Hematuria, unspecified[ICD10: R31.9] [facility]: 36845 12/03/2015 OFFICE/OUTPATIENT VISIT EST Diagnosis: Type 2 diabetes mellitus with diabetic neuropathy, unspecified[ICD10: E11.40] Alejandra Billy GALINA [facility] C[facility]: 01316 06/24/2015 ([id number]) OFFICE/OUTPATIENT VISIT EST Diagnosis: Acute sinusitis, unspecified[ICD10: J01.90] Diagnosis: Otitis media, unspecified, bilateral[ICD10: H66.93] Galina DENNISONQUELINE SusuKarol LUIS [facility] CPT-4: 34596 06/11/2015 ([id number]) OFFICE/OUTPATIENT VISIT EST Diagnosis: 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[ICD9: 250.01] Diagnosis: HYPERTENSION[ICD9: 401.9] Diagnosis: HYPERLIPIDEMIA NEC/NOS[ICD9: 272.4] Diagnosis: KIDNEY TRANSPLANT STATUS[ICD9: V42.0] Galina KERN SusuKarol LUIS [facility] CPT-4: 98780 07/17/2014 ([id number]) OFFICE/OUTPATIENT VISIT EST Diagnosis: 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[ICD9: 250.01] Diagnosis: HYPERTENSION[ICD9: 401.9] Galina Luis DENNISONQUELINE SusuKarol ROD ARTEAGA [facility] CPT-4: 45214 10/31/2013 ([id number]) OFFICE/OUTPATIENT VISIT EST Diagnosis: 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I[ICD9: 250.00] Diagnosis: HYPERTENSION[ICD9: 401.9] Diagnosis: HYPERLIPIDEMIA NEC/NOS[ICD9: 272.4] Galina GE SKarol LUIS [facility] CPT-4: 79784 08/01/2013 OFFICE/OUTPATIENT VISIT EST Diagnosis: HEMATURIA NOS[ICD9: 599.70] Diagnosis: Abdominal pain, acute, right lower quadrant[ICD9: 789.03] Diagnosis: KIDNEY TRANSPLANT STATUS[ICD9: V42.0] Alejandra KERN SusuKarol LUIS [facility] CPT-4: 78847 07/30/2013 ([id number]) OFFICE/OUTPATIENT VISIT EST Diagnosis: Uncontrolled hypertension[ICD9: 401.9] Diagnosis: BRIEF DEPRESSIVE REACT[ICD9: 309.0] Galina GE SKarol LUIS [facility] CPT-4: 10613 05/30/2013 ([id number]) OFFICE/OUTPATIENT VISIT EST Diagnosis: HYPERTENSION[ICD9: 401.9] Diagnosis: Anticipatory grieving[ICD9: 309.0] Galina WARREN SusuKarol RODNDSHRAVAN [facility] CPT-4: 89217 04/29/2013 ([id number]) OFFICE/OUTPATIENT VISIT EST Diagnosis: 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I, UNCONTROLLED[ICD9: 250.02] Diagnosis: HYPERTENSION[ICD9: 401.9] Diagnosis: HYPOTHYROIDISM[ICD9: 244.9] Diagnosis: KIDNEY TRANSPLANT STATUS[ICD9: V42.0] Galina Rodmateus THRASHER ERLIN SusuKarol [facility] CPT-[facility]: 08530 02/27/2013 OFFICE/OUTPATIENT VISIT EST Diagnosis: Paronychia[ICD9: 681.9] Diagnosis: ONYCHOMYCOSIS[ICD9: 110.1] Viky Chance MARIA [facility] C[facility]: 44361 01/01/2013 ([id number]) OFFICE/OUTPATIENT VISIT EST Diagnosis: 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I, UNCONTROLLED[ICD9: 250.02] Diagnosis: HYPERLIPIDEMIA NEC/NOS[ICD9: 272.4] Diagnosis: HYPERTENSION[ICD9: 401.9] Diagnosis: KIDNEY TRANSPLANT STATUS[ICD9: V42.0] Diagnosis: HYPOTHYROIDISM[ICD9: 244.9] Galina ASENCIO SusuKarol O [facility] CPT-4: 82869 11/27/2012 ([id number]) OFFICE/OUTPATIENT VISIT EST Diagnosis: 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I[ICD9: 250.00] Diagnosis: HYPOTHYROIDISM[ICD9: 244.9] Diagnosis: HYPERLIPIDEMIA NEC/NOS[ICD9: 272.4] Diagnosis: HYPERTENSION[ICD9: 401.9] Galina Chance ROD NDER [facility] CPT-4: 04221 08/28/2012 ([id number]) OFFICE/OUTPATIENT VISIT EST Diagnosis: HYPOTHYROIDISM[ICD9: 244.9] Diagnosis: 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I, UNCONTROLLED[ICD9: 250.02] Diagnosis: HYPERLIPIDEMIA NEC/NOS[ICD9: 272.4] Diagnosis: KIDNEY TRANSPLANT STATUS[ICD9: V42.0] Diagnosis: HYPERTENSION[ICD9: 401.9] Galina Chance [facility] CPT-4: 28370 08/20/2012 OFFICE/OUTPATIENT VISIT EST Diagnosis: 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I, UNCONTROLLED[ICD9: 250.02] Diagnosis: HYPERTENSION[ICD9: 401.9] Galina Chance [facility] CPT-4: 71544 07/03/2012 OFFICE/OUTPATIENT VISIT EST Diagnosis: 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I, UNCONTROLLED[ICD9: 250.02] Diagnosis: HYPERTENSION[ICD9: 401.9] Galina ARTEAGA [facility] CPT-4: 40060 06/21/2012 OFFICE/OUTPATIENT VISIT EST Diagnosis: 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I, UNCONTROLLED[ICD9: 250.02] Diagnosis: HYPERTENSION[ICD9: 401.9] Diagnosis: HYPERLIPIDEMIA NEC/NOS[ICD9: 272.4] Diagnosis: KIDNEY TRANSPLANT STATUS[ICD9: V42.0] [facility] 45563 05/30/2012 ([id number]) OFFICE/OUTPATIENT VISIT EST Diagnosis: HYPERTENSION[ICD9: 401.9] Diagnosis: VISUAL DISTURBANCE[ICD9: 368.9] [facility]: 19174 05/21/2012 ([id number]) OFFICE/OUTPATIENT VISIT EST Diagnosis: HYPERTENSION[ICD9: 401.9] Diagnosis: HYPOTHYROIDISM[ICD9: 244.9] Diagnosis: KIDNEY TRANSPLANT STATUS[ICD9: V42.0] [facility]: 83095 01/24/2012 OFFICE/OUTPATIENT VISIT EST Diagnosis: DIZZINESS/VERTIGO[ICD9: 780.4] Diagnosis: HYPERTENSION[ICD9: 401.9] Galina [facility] CPT-4: 52347 09/21/2011 ([id number]) OFFICE/OUTPATIENT VISIT EST Diagnosis: HYPERTENSION[ICD9: 401.9] Diagnosis: HYPOTHYROIDISM[ICD9: 244.9] Diagnosis: HYPERLIPIDEMIA NEC/NOS[ICD9: 272.4] Diagnosis: KIDNEY TRANSPLANT STATUS[ICD9: V42.0] [facility] 55040 09/12/2011 OFFICE/OUTPATIENT VISIT EST Diagnosis: HYPOTHYROIDISM[ICD9: 244.9] Diagnosis: HYPERTENSION[ICD9: 401.9] Diagnosis: CEPHALGIA[ICD9: 784.0] Galina Augustine DO [facility] CPT-4: 96788 06/14/2011 OFFICE/OUTPATIENT VISIT EST Diagnosis: HYPERTENSION[ICD9: 401.9] Diagnosis: PHARYNGITIS, ACUTE[ICD9: 462] Diagnosis: HYPOTHYROIDISM[ICD9: 244.9] Galina RIVAS DO [facility] CPT-4: 58243 03/03/2011 OFFICE/OUTPATIENT VISIT EST Diagnosis: HYPOTHYROIDISM[ICD9: 244.9] Diagnosis: KIDNEY TRANSPLANT STATUS[ICD9: V42.0] Diagnosis: HYPERTENSION[ICD9: 401.9] Diagnosis: SINUSITIS, ACUTE[ICD9: 461.9] Galina SMITH [facility] CPT-4: 37736 01/27/2011 ([id number]) OFFICE/OUTPATIENT VISIT EST Galina SMITH [facility] CPT-4: 31364 12/02/2010 Plan of Care Planned Activity Notes Codes Status Date Visit Diagnosis Plan: Right lower quadrant pain Discus sal: Check Stat UA, CBC, ESR, CMP Stay NPO If WBC or ESR elevated will need to proceed with CT scan of abdomen/pelvis ICD-9 : 789.03 ICD-10 : R10.31 05/20/2019 Visit Diagnosis Plan: 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, UNCO NTROLLED Discussion: Check HbA1C ICD-9 : 250.03 ICD-10 : E10.9 02/26/2019 Visit Diagnosis Plan: Essential (primary) hypertension Discussion: Noncompliant Start amlodopine 5mg daily ICD-9 : 401.9 ICD-10 : I10 02/26/2019 Visit Diagnosis Plan: Mixed hyperlipidemia Discussion: Start atorvastatin 80mg daily ICD-9 : 272.4 ICD-10 : E78.2 02/26/2019 Appointment: Galina Smith [facility]Ptel[facility] [phone] [facility] FO[facility] 02/26/2019 Patient Education: atorvastatin- OptimizeRX Coupon [phone] [email or web address] Completed 02/26/2019 Appointment: Galina Smith WPtel: [address] [place], [place] [phone] [place] LAB 02/19/2019 Appointment: Coleen Frey [address] [place] [address] had 2 flat tires this morning. NO SHOW - FORGIVE N 02/19/2019 Appointment: Galina Smith WPtel: [address] [place], [place] [phone] LAB 08/24/2018 Appointment: Galina Smith WPtel: [address] [place], [place] [address] LAB 06/29/2018 Visit Diagnosis Plan: Epigastric [...] he had labs done in dec at [facility]. will obtain lab results and order additional labs as needed. ICD-9 : 250.02 ICD-10 : E11.65 06/26/2018 Appointment: Coleen Frey [address] [place], [place] [phone] ACUTE ILLNESS 06/26/2018 Visit Diagnosis Plan: Type [...] ICD-10 : R10.31 02/06/2018 Appointment: Coleen Frey [address] [facility] ACUTE ILLNESS 02/06/2018 Patient Education: Patient Medication [...] : I10 11/02/2017 Appointment: Coleen Frey [address] [facility] FOLLOW UP 11/02/2017 Patient Education: [...] E11.59 07/27/2017 Visit Diagnosis Plan: Encounter for [facility] adult medical examination with abnormal findings Discussion: patient deferred influenza v accine at this time, received tdap shot. routine labs performed earlier today so will obtain results from gabriel osorio. ICD-9 : V70.0 ICD-10 : Z00.01 07/27/2017 Appointment: Coleen Frey [address] [facility] Annual Well Visit 07/27/2017 Patient Education: Patient Medication Summary Completed 07/27/2017 Visit Diagnosis Plan: Tinea pedis Discussion: nystatin ointment ordered to be placed on foot bid for 10 days. instructed to keep feet clean and dry. 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 follow up in [...] : E11.59 04/05/2017 Appointment: [facility]rey [facility] FO[facility] UP 04/05/2017 Patient Education: Patient Medication Summary Completed 04/05/2017 Patient Education: Patient Medication Summary Completed 04/05/2017 Care Plan: CBC Pending 04/05/2017 Care Plan: LIPID PANEL LOINC : 01297-9 Pending 04/05/2017 Care Plan: COMPREH[place]AB[place] : 74904-9 Pending 04/05/2017 Visit Plan: Patient admits that [...] given 06/20/2016 Appointment: Galina Smith [facility]el[phone] [id number] 06/16 lm-sp 06/20 lm ~sl FOLLOW UP 06/20/2016 Patient Education: Patient Medication Summary Completed 06/20/2016 Patient Education: Patient Medication Summary Completed 05/04/2016 Care Plan: COM[place]AB[place] : 30811-7 Pending 05/04/2016 Care Plan: CBC Pending 05/04/2016 Care Plan: LIPID PANEL LOINC : 89402-4 Pending 05/04/2016 Care Plan: A1C HPLC LOINC : 50517-7 Pending 05/04/2016 Visit Plan: Discussed with Dr Luis stephens as above while awaiting specialist to return his call Push fluids Follow up celine if not improving 02/16/2016 Appointment: Dao Missy [address] [place] [address] ACUTE ILLNESS 02/16/2016 Patient Education: Patient Medication Summary Completed 02/16/2016 Visit Plan: Check CMP, TSH, HbA1C, magne sium, UA now Hydrate and monitor blood sugar Use powerade zero in conjunction with water to stay hydrated Discussed elevated blood sugar can cause cramping as well 12/03/2015 Appointment: Galina Smith WPtel: [address] [place] [address] ACUTE ILLNESS 12/03/2015 Patient Education: Patient Medication Summary Completed 12/03/2015 Visit Plan: Labs completed this am in [facility] but do not have results yet. Start Lyrica 75mg PO bid Will Call in a week and let know if pain is improved. 06/24/2015 Appointment: Alejandra Billy WPtel: [address] [place] [address] ACUTE ILLNESS 06/24/2015 Patient Education: Patient Medication Summary Completed 06/24/2015 Patient Education: Lyrica - 18+ - No MA NE Completed 06/24/2015 Visit Plan: Saline nasal flushes prn. Ty lenol/Motrin prn headache. Notify if persists/symptoms worsening. Obtain most recent lab Warned of increased BS with prednisone--has sliding scale to use 06/11/2015 Appointment: Galina Smith WPtel: [address] [place] [address] 06/10/15 vm cn....06/10/15 appt confirmed ophelia Marroquin ual Well Visit 06/11/2015 Patient Education: Patient Medication Summary Completed 06/11/2015 Appointment: Galina Smith WPtel: [address] [place] [address] FOLLOW UP 10/15/2014 Patient Education: Patient Medication Summary Completed 09/03/2014 Care Plan: [place] : [address]-1 Ordered 09/03/2014 Visit Plan: Obtain most recent lab resul ts Will likely need HbA1C and Lipids if were not done Accuchecks q AC and HS 07/17/2014 Appointment: Galina Smith WPtel: [address] [place], [place] [address] FOLLOW UP 07/17/2014 Patient Education: Patient Medication Summary Completed 07/17/2014 Appointment: Galina Smith WPtel: [address] [place] [address] 01/29 01/30 NO SHOW FOLLOW UP 01/30/2014 Visit Plan: Check CMP, HbA1C, CBC, Lipid s Pt sees transplant doctor next month Pt is currently just using insulin prn and monitering BS 10/31/2013 Appointment: Galina Smith WPtel: [address] [place] [address] FOLLOW UP 10/31/2013 Patient Education: Patient Medication Summary Completed 10/31/2013 Visit Plan: Continue current meds and ac uchecks 08/01/2013 Appointment: Galina Smith WPtel: [address] [place], [place] [phone] 07/31 FOLLOW UP 08/01/2013 Patient Education: Patient Medication Summary Completed 08/01/2013 Appointment: Alejandra Billy WPtel: [address] [place], [place] [phone] ACUTE ILLNESS 07/30/2013 Patient Education: Patient Medication Summary Completed 07/30/2013 Visit Plan: Restart Diovan--pt says need s PA Continue fluoxetine at 20mg daily 05/30/2013 Appointment: Galina Smith WPtel: [address] [place], [place] [phone] FOLLOW UP 05/30/2013 Patient Education: Patient Medication Summary Completed 05/30/2013 Appointment: Galina Smith WPtel: [address] [place] [address] [place] has appt following day FOLLOW UP 3 Visit Plan: Restart Diovan and Amlodopin e as has been out--new rx sent out Trial of Fluoxetine 20mg q AM Stress Reducers 04/29/2013 Appointment: Galina Smith WPtel: [address] [place] [address] 04/26 MOM made appt. confirmed monday ACUTE ILL NESS 04/29/2013 Patient Education: Patient Medication Summary Completed 04/29/2013 Visit Plan: Continue current meds and ac cuchecks Pt going for fasting lab next month 02/27/2013 Appointment: Galina Smith WPtel: [address] [place] [address] FOLLOW UP 02/27/2013 Patient Education: Patient Medication Summary Completed 02/27/2013 Appointment: Viky Acosta WPtel: [address] [place] [address] ACUTE ILLNESS 01/01/2013 Patient Education: Patient Medication Summary Completed 01/01/2013 Visit Plan: Continue current meds Check fasting lab next week 11/27/2012 Appointment: Galina Smith WPtel: [address] [place] [address] FOLLOW UP 11/27/2012 Patient Education: Patient Medication Summary Completed 11/27/2012 Visit Plan: Lab discussed Continue curre nt meds and accuchecks Pt sees transplant doctor in in October Check fasting lab and fwup in 3mos 08/28/2012 Appointment: Galina Smith WPtel: [address] [place] [address] 08/27 FOLLOW UP 08/28/2012 Patient Education: Patient Medication Summary Completed 08/28/2012 Appointment: Galina Smith WPtel: [address] [place], [place] [phone] LAB 08/20/2012 Patient Education: Patient Medication Summary Completed 08/20/2012 Visit Plan: Continue levemir at current dose with accuchecks Use apidra with sliding scale Check Chem 7 and HbA1C in 2mos 07/03/2012 Appointment: Galina Smithtel: [address] [place], [place] [phone] 07/02 FOLLOW UP 07/03/2012 Patient Education: [...] 320mg daily 06/21/2012 Appointment: Galina Smith WPtel: [address] [place] [address] ACUTE ILLNESS 06/21/2012 Patient Education: Patient Medication Summary Completed 06/21/2012 Visit Plan: Increase Levemir to 75 u sc q PM Continue sliding scale insulin with accuchecks q AC and HS Call in 1wk with BS readings 05/30/2012 Appointment: Galina Smithtel: [address] [place], [place] [phone] [place] [address] Follow Up 05/30/2012 Patient Education: Patient Medication Summary Completed 05/30/2012 Appointment: Galina Smith WPtel: [address] [place], [place] [phone] 05/21 - cancelled appointment for 05/22 because PT was worke d in on 05/21 FOLLOW UP 05/22/2012 Appointment: Galina Smith WPtel: [address] [place], [place] [phone] WORK IN 05/21/2012 Appointment: Galina Smith WPtel: [address] [place], [place] [phone] LAB 05/21/2012 Patient Education: Patient Medication Summary Completed 05/21/2012 Visit Plan: Continue current meds Obtain most recent lab done at [facility] 01/24/2012 Appointment: Galina Smith WPtel: [address] [place] [address] voicemail FOLLOW UP 01/24/2012 Patient Education: Patient Medication Summary Completed 01/24/2012 Visit Plan: Decrease Norvasc to 2.5mg da anne marie Check CBC, CMP, TSH, Free T4 09/21/2011 Appointment: Galina Smith WPtel: [address] [place] [address] ACUTE ILLNESS 09/21/2011 Patient Education: Patient Medication Summary Completed 09/21/2011 Visit Plan: Continue Diovan at current d ose Add amlodopine Check Lipids/LFTs with next lab 09/12/2011 Appointment: Galina Smith WPtel: [address] [place] [address] FOLLOW UP 09/12/2011 Patient Education: Patient Medication Summary Completed 09/12/2011 Visit Plan: Increase Diovan to 320mg po daily Check TSH and Free T4 with kidney lab next week 06/14/2011 Appointment: Galina Smith WPtel: [address] [place] [address] FOLLOW UP 06/14/2011 Patient Education: Patient Medication Summary Completed 06/14/2011 Visit Plan: Z-pack then new toothebrush Start Diovan 03/03/2011 Appointment: Galina Smith WPtel: [address] [place] [address] ACUTE ILLNESS 03/03/2011 Patient Education: Patient Medication Summary Completed 03/03/2011 Appointment: Galina Smith WPtel: [address] [place] [address] FOLLOW UP 01/27/2011 Patient Education: Patient Medication Summary Completed 01/27/2011 Visit Plan: Continue current meds and pr oceed with lab per kidney transplant doctor Start Synthroid [facility] [place] daily 12/02/2010 Appointment: Gal[facility]Ptel[facility] [phone] [facility] [facility] 12/02/2010 Patient Education: Patient Medication Summary Completed 12/02/2010 Appointment: Galina Smith WPtel: [phone] [facility] [facility] Suture Removal 10/20/2009 Patient Education: Patient Medication Summary Completed 10/20/2009 Referral: Rudolph Núñez WPtel: [address] [id number] [place] Referral Initiated Instructions Comment . Patient [...] well . Labs completed this am in [facility] do not have results yet. Start [...] meds Obtain most recent lab done at [facility] . Decrease Norvasc to 2.5mg daily [...]
--- OUTSIDE RECORDS SUMMARY | 2019-08-21 00:12 | XMS REPORT | CCD ---
Author Author Cuauhtemoc Smith D.O. Organization [facility] Address [address] [place] [address] Phone Care Team Providers Care Coding Tech Name Role Phone [facility] D.O., PP Unavailable CCM Unavailable Summary Purpose Interface Exchange Insurance Providers Payer name Policy type / Coverage type Covered alliance party ID Effective Begin Date Effective End Date Blue Cross Blue Shield Blue Cross/Blue Shield [id number] 2017 Unknown Family History Family History data not found Social History Social History Element Codes Description Effective Dates Tobacco history SNOMED CT: [id number] Currently uses smokeless to bacco 06/14/2011 Allergies, [...] Fill Instructions cephalexin 500 mg capsule RxNorm: 715890 1 Capsule(s) Oral thre e times a day 05/20/2019 05/26/2019 Active Prograf 0.5 mg capsule RxNorm: 426025 4 Capsule(s) Oral two skinny es a day 05/20/2019 No Stop Date Active pantoprazole 40 mg tablet,delayed release RxNorm: 163565 1 Tablet(s) Oral QD for stomach 05/20/2019 09/17/2019 Active CellCept 500 mg tablet RxNorm: 541570 2 Tablet(s) Oral two time s a day 05/20/2019 No Stop Date Active cephalexin 500 mg capsule RxNorm: 603440 1 Capsule(s) Oral thre e times a day 05/20/2019 05/19/2019 Inactive Levemir FlexTouch U-100 Insulin 100 unit/mL (3 mL) sub cutaneous pen RxNorm: 642117 INJECT 90 UNITS SUBCUTANEOUSLY TWICE DAILY 05/11/[address] op Date Active Levemir FlexTouch U-100 Insulin 100 unit/mL (3 mL) sub cutaneous pen RxNorm: 927121 100 Unit(s) Subcutaneous two times a day 03/04/2019 06/02/2019 Active Levemir FlexTouch U-100 Insulin 100 unit/mL (3 mL) sub cutaneous pen RxNorm: 253800 90 Unit(s) SQ BID 100 Unit(s) Subcutaneous two times a day 0 03/04/2019 03/04/2019 Inactive amlodipine 5 mg tablet RxNorm: 156411 1 Tablet(s) PO QD for BP 02/1008/24/2019 Active atorvastatin 80 mg tablet RxNorm: 937199 1 Tablet(s) PO QD 02/27/2005/26/2019 Active Novolog Flexpen U-100 Insulin aspart 100 unit/mL (3 mL ) subcutaneous RxNorm: 1095868 INJECT SUBCUTANEOUSLY NEEDED PER SLIDING SCALE 02/22/2019 No Stop Date Active Levemir FlexTouch U-100 Insulin 100 unit/mL (3 mL) sub cutaneous pen RxNorm: 230113 90 Unit(s) SQ BID 01/08/2019 03/03/2019 Inactive Levemir FlexTouch U-100 Insulin 100 unit/mL (3 mL) sub cutaneous pen RxNorm: 150610 90 Unit(s) SQ BID 12/04/2018 12/03/2018 Inactive Levemir FlexTouch U-100 Insulin 100 unit/mL (3 mL) sub cutaneous pen RxNorm: 087954 90 Unit(s) SQ BID 12/04/2018 01/07/2019 Inactive Levemir FlexTouch U-100 Insulin 100 unit/mL (3 mL) sub cutaneous pen RxNorm: 763107 70 Unit(s) SQ BID 10/26/2018 12/04/2018 Inactive Levemir FlexTouch U-100 Insulin 100 unit/mL (3 mL) sub cutaneous pen RxNorm: 947345 GIVE 90 UNITS SUBCUTANEOUSLY TWICE DAILY 10/08/2018 10/26/2018 Inactive Levemir FlexTouch U-100 Insulin 100 unit/mL (3 mL) sub cutaneous pen RxNorm: 590348 90 Unit(s) SQ BID 07/30/2018 10/07/2018 Inactive Levemir FlexTouch U-100 Insulin 100 unit/mL (3 mL) sub cutaneous pen RxNorm: 470318 90 Unit(s) SQ BID 07/06/2018 07/29/2018 Inactive Pen Needle 31 gauge x 5/16" RxNorm: USE DIRECTED 03/21/2018 No Stop Date Active Levemir FlexTouch U-100 Insulin 100 unit/mL (3 mL) sub cutaneous pen RxNorm: 364829 80 Unit(s) SQ BID 02/15/2018 07/06/2018 Inactive Levemir FlexTouch U-100 Insulin 100 unit/mL (3 mL) sub cutaneous pen RxNorm: 462762 INJECT 105 UNITS SUBCUTANEOUSLY IN THE EVENING 01/24/2018 0 02/15/2018 Inactive Levemir FlexTouch U-100 Insulin 100 unit/mL (3 mL) sub cutaneous pen RxNorm: 629601 INJECT 105 UNITS SUBCUTANEOUSLY IN THE EVENING 12/26/2017 0 01/23/2018 Inactive Novolog Flexpen U-100 Insulin aspart 100 unit/mL (3 mL ) subcutaneous RxNorm: 6264793 INJECT SUBCUTANEOUSLY NEEDED PER SLIDING SCALE 12/25/2017 02/21/2019 Inactive Levemir FlexTouch U-100 Insulin 100 unit/mL (3 mL) sub cutaneous pen RxNorm: 127168 70 Unit(s) SQ BID 11/03/2017 11/03/2017 Inactive Levemir FlexTouch U-100 Insulin 100 unit/mL (3 mL) sub cutaneous pen RxNorm: 962126 105 Unit(s) SQ QPM 11/02/2017 11/02/2017 Inactive Levemir FlexTouch U-100 Insulin 100 unit/mL (3 mL) sub cutaneous pen RxNorm: 469812 105 Unit(s) SQ QPM Needs updated labs 11/01/2017 11/01/[address] [place] [address] Levemir FlexTouch U-100 Insulin 100 unit/mL (3 mL) sub cutaneous pen RxNorm: 834447 Unit(s) 105 Unit(s) SQ QPM 09/18/2017 09/18/2017 Inactive Levemir FlexTouch U-100 Insulin 100 unit/mL (3 mL) sub cutaneous pen RxNorm: 446322 105 Unit(s) SQ QPM 08/07/2017 09/18/2017 Inactive cephalexin 500 mg capsule RxNorm: 903907 1 Capsule(s) PO BID 201708/02/2017 Inactive Levemir FlexTouch U-100 Insulin 100 unit/mL (3 mL) sub cutaneous pen RxNorm: 324199 105 Unit(s) SQ QPM 06/07/2017 06/07/2017 Inactive Levemir FlexTouch 100 unit/mL (3 mL) subcutaneous insulin pe n RxNorm: 739634 105 Unit(s) SQ QPM 05/11/2017 06/07/2017 Inactive Lipitor 40 mg tablet RxNorm: 809497 1 Tablet(s) PO QD 04/05/201703/13 Inactive nystatin 100,000 unit/gram topical ointment RxNorm: 500201 1 Gr am(s) TOP BID 04/05/2017 05/02/2017 Inactive Lipitor 40 mg tablet RxNorm: 710505 1.5 Tablet(s) PO QD 04/05/2017 Inactive Diovan 320 mg tablet RxNorm: 764649 1 Tablet(s) PO QD 04/05/201702/10 Inactive Levemir FlexTouch 100 unit/mL (3 mL) subcutaneous insulin pe n RxNorm: 059272 105 Unit(s) SQ QPM 04/05/2017 04/05/2017 Inactive Levemir FlexTouch 100 unit/mL (3 mL) subcutaneous insulin pe n RxNorm: 034460 90 Unit(s) SQ QPM LAST REFILL UNTIL LABS AND APPOINTMENT!!!! 04/05/2017 Inactive Novolog Flexpen 100 unit/mL subcutaneous RxNorm: 9258207 Unit(s) INJECT SUBCUTANEOUSLY NEEDED PER SLIDING SCALE---NEEDS UPDATED LABS 03/07/2017 12/03/2018 Inactive Levemir FlexTouch 100 unit/mL (3 mL) subcutaneous insulin pe n RxNorm: 022969 90 Unit(s) SQ QPM LAST REFILL UNTIL LABS AND APPOINTMENT!!!! 02/17/2017 Inactive Levemir FlexTouch 100 unit/mL (3 mL) subcutaneous insulin pe n RxNorm: 826421 90 Unit(s) SQ QPM NEEDS FASTING LABS AND APPOINTMENT BEFORE FURTHER REFILLS 12/22/2016 02/17/2017 Inactive Novolog Flexpen U-100 Insulin aspart 100 unit/mL subcutaneou s RxNorm: 2001459 Unit(s) INJECT SUBCUTANEOUSLY NEEDED PER SLIDING SCALE---NEEDS UPDATED LABS 11/28/2016 03/07/2017 Inactive Levemir FlexTouch 100 unit/mL (3 mL) subcutaneous insulin pe n RxNorm: 876101 90 Unit(s) VAG QPM 11/08/2016 12/22/2016 Inactive Levemir FlexTouch 100 unit/mL (3 mL) subcutaneous insulin pe n RxNorm: 069627 90 Unit(s) VAG QPM 11/08/2016 12/21/2016 Inactive Levemir FlexTouch 100 unit/mL (3 mL) subcutaneous insulin pe n RxNorm: 250071 80 Unit(s) VAG QPM 09/05/2016 11/08/2016 Inactive Levemir FlexTouch 100 unit/mL (3 mL) subcutaneous insulin pe n RxNorm: 326832 85 Unit(s) SQ QD 07/22/2016 09/05/2016 Inactive Levemir FlexTouch 100 unit/mL (3 mL) subcutaneous insulin pe n RxNorm: 268166 85 Unit(s) SQ QD 07/04/2016 07/21/2016 Inactive Levemir FlexTouch 100 unit/mL (3 mL) subcutaneous insulin pe n RxNorm: 199929 85 Unit(s) SQ QD 06/14/2016 06/19/2016 Inactive Levemir FlexTouch 100 unit/mL (3 mL) subcutaneous insulin pe n RxNorm: 075552 85 Unit(s) SQ QD 05/03/2016 05/22/2016 Inactive Levemir FlexTouch 100 unit/mL (3 mL) subcutaneous insulin pe n RxNorm: 854731 85 Unit(s) SQ QD 05/03/2016 05/02/2016 Inactive Levemir FlexTouch 100 unit/mL (3 mL) subcutaneous insulin pe n RxNorm: 263289 85 Unit(s) SQ QD 03/14/2016 04/22/2016 Inactive cefuroxime axetil 250 mg tablet RxNorm: 575082 1 Tablet(s) PO BID 0 02/16/2016 02/25/2016 Inactive Levemir FlexTouch 100 unit/mL (3 mL) subcutaneous insulin pe n RxNorm: 079659 85 Unit(s) SQ QD 02/03/2016 03/13/2016 Inactive Levemir FlexTouch 100 unit/mL (3 mL) subcutaneous insulin pe n RxNorm: 546925 85 Unit(s) SQ QD 12/07/2015 02/02/2016 Inactive Pen Needle 31 gauge x 5/16" RxNorm: USE DIRECTED 11/19/201510/2015 Inactive Levemir FlexTouch 100 unit/mL (3 mL) subcutaneous insulin pe n RxNorm: 257718 INJECT 75 UNITS SUBCUTANEOUSLY ONCE DAILY; NEED LABS AND APPT 10/06/2015 12/04/2015 Inactive Novolog Flexpen 100 unit/mL subcutaneous RxNorm: 9759713 INJECT SUBCUTANEOUSLY NEEDED PER SLIDING SCALE 09/15/2015 11/28/2016 Inactive Levemir FlexTouch 100 unit/mL (3 mL) subcutaneous insulin pe n RxNorm: 631880 75 Unit(s) SQ QD Needs lab and appointment 07/13/2015 10/05/2015 Inactive Lyrica 75 mg capsule RxNorm: 341883 1 Capsule(s) PO BID 06/24/2015 Inactive Levemir FlexTouch 100 unit/mL (3 mL) subcutaneous insulin pe n RxNorm: 444265 75 Unit(s) SQ QD Needs lab and appointment 06/23/2015 07/12/2015 Inactive Novolog Flexpen 100 unit/mL subcutaneous RxNorm: 3501915 Unit(s) SQ as needed Sliding scale 06/15/2015 09/14/2015 Inactive Flonase Allergy Relief 50 mcg/actuation nasal spray,suspensi on RxNorm: 2 Gile NASAL QHS 06/11/2015 12/02/2015 Inactive prednisone 20 mg tablet RxNorm: 731563 1 Tablet(s) PO T ID for 3 days then 1 po BID for 3 days then one daily for 3 days 06/11/2015 12/02/2015 Inactiv e cefdinir 300 mg capsule RxNorm: 187872 2 Capsule(s) PO QD 06/11/2015 06/24/2015 Inactive Levemir FlexTouch 100 unit/mL (3 mL) subcutaneous insulin pe n RxNorm: 019193 75 Unit(s) SQ QD Needs lab and appointment 05/29/2015 06/22/2015 Inactive Novolog 100 unit/mL subcutaneous solution RxNorm: 954058 Unit(s) SQ Inject as directed using sliding scale B 05/29/2015 12/03/2018 Inactive Levemir Flexpen 100 unit/mL (3 mL) solution subcutaneo us insulin pen RxNorm: 622204 INJECT 75 UNITS SUBCUTANEOUSLY EVERY DAY 05/11/2015 05/29/2015 Inactive Levemir FlexTouch 100 unit/mL (3 mL) subcutaneous insulin pe n RxNorm: 108915 75 Unit(s) SQ QHS 03/30/2015 12/03/2018 Inactive Levemir FlexTouch 100 unit/mL (3 mL) subcutaneous insulin pe n RxNorm: 363472 75 Unit(s) SQ QHS 03/09/2015 03/29/2015 Inactive Contour Test Strips RxNorm: Miscellaneous 01/27/2015 No Stop Date Ac tive Novolog 100 unit/mL subcutaneous solution RxNorm: 471752 Unit(s) SQ Inject as directed using sliding scale B 01/27/2015 05/29/2015 Inactive Levemir Flexpen 100 unit/mL (3 mL) solution subcutaneo us insulin pen RxNorm: 448271 INJECT 75 UNITS SUBCUTANEOUSLY EVERY DAY 11/05/2014 03/09/2015 Inactive Levemir Flexpen 100 unit/mL (3 mL) solution subcutaneo us insulin pen RxNorm: 836508 INJECT 75 UNITS SUBCUTANEOUSLY EVERY DAY 08/13/2014 10/31/2014 Inactive Novolog 100 unit/mL subcutaneous solution RxNorm: 183184 Unit(s) SQ Inject as directed using sliding scale B 07/15/2014 01/26/2015 Inactive Apidra SoloStar 100 unit/mL subcutaneous insulin pen RxNorm: 119043 Unit(s) SQ INJECT DIRECTED USING SLIDING SCALE B 07/11/2014 07/14/2014 Inactiv e Diovan 320 mg tablet RxNorm: 224384 1 Tablet(s) PO QD 06/10/201405/13 Inactive Apidra SoloStar 100 unit/mL subcutaneous insulin pen RxNorm: 062980 Unit(s) SQ INJECT DIRECTED USING SLIDING SCALE B 04/18/2014 07/10/2014 Inactiv e Levemir Flexpen 100 unit/mL (3 mL) solution subcutaneo us insulin pen RxNorm: 022405 Unit(s) SQ INJECT 75 UNITS SUBCUTANEOUSLY EVERY DAY 09/02/27/2014 Inactive [SAVINGS FOR UNINSURED PATIE NTS -- BIN:[id number], PCN: [id number], Group: [id number], ID# [id number], Process claim through [employer], for questions: . THIS IS NOT INSURANCE.] Apidra SoloStar 100 unit/mL subcutaneous insulin pen RxNorm: 756914 Unit(s) SQ INJECT DIRECTED USING SLIDING SCALE B 09/05/2013 04/17/2014 Inactiv e Pen Needle 31 gauge x 5/16" RxNorm: Miscellaneou s USE DIRECTED WITH LEVEMIR AND APIDRA 08/23/2013 11/18/2015 Inactive Prograf 1 mg capsule RxNorm: 213523 2 Capsule(s) PO BID Generic OK to fill 08/21/2013 05/19/2019 Inactive Diovan 320 mg tablet RxNorm: 695150 1 Tablet(s) PO QD 05/30/201305/12 Inactive fluoxetine 20 mg tablet RxNorm: 809201 1 Tablet(s) PO QAM 05/30/2013 07/31/2013 Inactive fluoxetine 20 mg tablet RxNorm: 484680 1 Tablet(s) PO QAM 04/29/2013 05/29/2013 Inactive amlodipine 5 mg tablet RxNorm: 593858 1 Tablet(s) PO QD 04/29/2013 Inactive ketoconazole 2 % topical cream RxNorm: 906900 Application TOP B ID for 2-4wks 04/29/2013 05/12/2013 Inactive Diovan 320 mg tablet RxNorm: 067680 1 Tablet(s) PO QD 04/29/201305/14 Inactive Apidra SoloStar 100 unit/mL subcutaneous insulin pen RxNorm: 754139 Unit(s) SQ Sliding Scale B 02/19/2013 09/05/2013 Inactive Levemir Flexpen 100 unit/mL (3 mL) solution subcutaneo us insulin pen RxNorm: 479520 Insulin Pen SQ INJECT 75 UNITS SUBCUTANEOUSLY EVERY DAY 01/1002/28/2014 Inactive Septra DS 800 mg-160 mg tablet RxNorm: 638505 1 Tablet(s) PO BI D antibiotic 01/01/2013 01/07/2013 Inactive ketoconazole 2 % topical cream RxNorm: 513727 1 Application TOP BID 01/01/2013 01/14/2013 Inactive Levemir Flexpen 100 unit/mL (3 mL) Sub-Q Insulin Pen RxNorm: 367090 Unit(s) SQ INJECT 75 UNITS SUB-Q ONCE A DAY 12/07/2012 No Stop Date Active Levemir Flexpen 100 unit/mL (3 mL) Sub-Q Insulin Pen RxNorm: 616186 Unit(s) SQ INJECT 75 UNITS SUB-Q ONCE A DAY 10/22/2012 12/07/2012 Inactive Levemir Flexpen 100 unit/mL (3 mL) Sub-Q Insulin Pen RxNorm: 788597 75 Unit(s) SQ QHS 08/20/2012 10/22/2012 Inactive Diovan 320 mg tablet RxNorm: 546633 1 Tablet(s) PO QD 07/30/201204/12 Inactive Levemir Flexpen 100 unit/mL (3 mL) Sub-Q Insulin Pen RxNorm: 324714 Insulin Pen SQ INJECT 75 UNITS SUB-Q ONCE A DAY 07/30/2012 10/21/2012 Inactive Levemir Flexpen 100 unit/mL (3 mL) Sub-Q Insulin Pen RxNorm: 854093 75 Unit(s) SQ QHS 07/30/2012 08/19/2012 Inactive Levemir Flexpen 100 unit/mL (3 mL) Sub-Q Insulin Pen RxNorm: 487651 75 Unit(s) SQ QHS 07/30/2012 07/29/2012 Inactive Diovan 320 mg tablet RxNorm: 616528 1 Tablet(s) PO QD 06/21/201202/2013 Inactive Diovan 320 mg tablet RxNorm: 397101 1 Tablet(s) PO QD 06/21/201202/2013 Inactive Diovan 320 mg tablet RxNorm: 789579 1 Tablet(s) PO QD 06/21/201207/13 Inactive CellCept 250 mg capsule RxNorm: 256637 4 Capsule(s) PO BID 06/14/19 13 05/19/2019 Inactive Prograf 1 mg capsule RxNorm: 605649 2 Capsule(s) PO BID Generic OK to fill 06/14/2012 06/20/2012 Inactive Apidra SoloStar 100 unit/mL Sub-Q Insulin Pen RxNorm: 395744 Unit(s) SQ Sliding Scale B 06/13/2012 12/03/2018 Inactive Levemir Flexpen 100 unit/mL (3 mL) Sub-Q Insulin Pen RxNorm: 860169 75 Unit(s) SQ QD 06/13/2012 No Stop Date Active Apidra SoloStar 100 unit/mL Sub-Q Insulin Pen RxNorm: 102348 Unit(s) SQ Sliding Scale B 06/13/2012 No Stop Date Active One Touch Delica Lancets RxNorm: Miscellaneous 06/13/2012 04/04/2017 Inactive Lipitor 40 mg tablet RxNorm: 504634 1 Tablet(s) PO QD 05/30/201208/10 Inactive Diovan 320 mg tablet RxNorm: 909100 1 Tablet(s) PO QD 05/30/201202/2013 Inactive Tricor 145 mg tablet RxNorm: 847950 1 Tablet(s) PO QD 05/30/201208/10 Inactive Lipitor 20 mg Tab RxNorm: 469645 1 Tablet(s) PO QD 09/12/2011 012 Inactive Synthroid 50 mcg Tab RxNorm: 693784 1 Tablet(s) PO QD 09/12/201111/11 Inactive Diovan 320 mg tablet RxNorm: 387538 1 Tablet(s) PO QD 09/12/201102/11 Inactive amlodipine 5 mg tablet RxNorm: 535951 1 Tablet(s) PO QD 09/12/2011 Inactive Diovan 320 mg Tab RxNorm: 880492 1 Tablet(s) PO QD 06/14/2011 012 Inactive Diovan 160 mg Tab RxNorm: 871740 1 Tablet(s) PO QD 03/03/2011 012 Inactive cefdinir 300 mg Cap RxNorm: 785558 2 Capsule(s) PO QD 01/27/201101/11 Inactive Synthroid 50 mcg Tab RxNorm: 598037 1 Tablet(s) PO QD 12/02/201001/11 Inactive Multivitamin & Mineral Formula Tab RxNorm: 1 Tablet(s) PO QD No St art Date Active Miralax 17 gram/dose oral powder RxNorm: 640661 PO BID in 6-8 o unces of water No Start Date Active Tylenol Extra Strength 500 mg tablet RxNorm: 007863 Tablet(s) P O as needed No Start Date Active Tricor Oral RxNorm: Oral No Start Date 05/29/2012 Inactive MagOx 400 mg tablet RxNorm: 490959 1 Tablet(s) PO QD No Start Date Inactive sodium bicarbonate Oral RxNorm: Oral No Start Date 06/19/2016 I nactive Fish Oil 1,000 mg capsule RxNorm: 1 Capsule(s) PO QD No Start Date 04/04/2017 Inactive Novofine Misc RxNorm: Miscellaneous No Start Date 06/12/2012 Inactiv e Percocet 5 mg-325 mg tablet RxNorm: 1920126 Tablet(s) PO as need ed Dr Parson No Start Date 04/04/2017 Inactive Contour Test Strips RxNorm: miscellaneous No Start Date 01/26/2015 I nactive Prograf 1 mg capsule RxNorm: 942163 2 Capsule(s) PO BID No Start Da te 06/13/2012 Inactive Zantac 150 mg Tab RxNorm: 853001 Tablet(s) PO PRN No Start Date 12/01 Inactive Levemir FlexTouch 100 unit/mL (3 mL) subcutaneous insulin pe n RxNorm: 963433 75 Unit(s) SQ QHS No Start Date 03/08/2015 Inactive CellCept 250 mg capsule RxNorm: 225217 4 Capsule(s) PO BID No Start Date 06/13/2012 Inactive Novolog 100 unit/mL subcutaneous solution RxNorm: 202608 Unit(s) SQ Inject as directed using sliding scale B No Start Date 07/14/2014 Inactive Novolog Flexpen 100 unit/mL subcutaneous RxNorm: 4145958 Unit(s) SQ as needed Sliding scale No Start Date 06/14/2015 Inactive Apidra SoloStar 100 unit/mL Sub-Q Insulin Pen RxNorm: 782687 Unit(s) SQ Sliding Scale B No Start Date 06/12/2012 Inactive Levemir FlexTouch U-100 Insulin 100 unit/mL (3 mL) sub cutaneous pen RxNorm: 412429 70 Unit(s) SQ BID No Start Date 02/06/2018 Inactive Pen Needle 31 X 5/16" RxNorm: Miscellaneous No Start Date 08/23/2013 Inactive Synthroid 50 mcg Tab RxNorm: 353325 1 Tablet(s) PO QD No Start Date 0 09/11/2011 Inactive Levemir Flexpen 100 unit/mL (3 mL) Sub-Q Insulin Pen RxNorm: 704270 70 Unit(s) SQ QHS No Start Date 07/29/2012 Inactive Levemir FlexTouch U-100 Insulin 100 unit/mL (3 mL) sub cutaneous pen RxNorm: 012800 80 Unit(s) SQ BID No Start Date 02/14/2018 Inactive Levemir FlexTouch 100 unit/mL (3 mL) subcutaneous insulin pe n RxNorm: 465641 80 Unit(s) SQ QPM No Start Date 09/04/2016 Inactive Lipitor 40 mg tablet RxNorm: 375157 1 Tablet(s) PO QD No Start Date 1 Inactive Ultram 50 mg tablet RxNorm: 048070 2 Tablet(s) PO TID as needed for pain No Start Date 06/10/2015 Inactive Prograf 1 mg Cap RxNorm: 185488 2 Capsule(s) PO BID No Start Date 02/2012 Inactive insulin needles (disposable) 32 x 5/16" RxNorm: Miscellaneous for use with flex pen No Start Date 04/04/2017 Inactive Levemir FlexTouch U-100 Insulin 100 unit/mL (3 mL) sub cutaneous pen RxNorm: 100497 90 Unit(s) SQ BID No Start Date 07/05/2018 Inactive Levemir Flexpen 100 unit/mL (3 mL) Sub-Q Insulin Pen RxNorm: 822491 65 Unit(s) SQ QD No Start Date 06/12/2012 Inactive pantoprazole 40 mg tablet,delayed release RxNorm: 689014 1 Tabl et(s) PO QD No Start Date 05/19/2019 Inactive Zithromax Z-Mateus 250 mg Tab RxNorm: 232846 Tablet(s) PO No Start Date 06/13/2011 Inactive as directed Lipitor 20 mg Tab RxNorm: 144079 1 Tablet(s) PO QD No Start Date [...] Date S vice Location GLYCOSYLATED HEMOGLOBIN TEST 90183 Hgb A1c 54164-2 13.9 % 0 02/27/2019 Unknown MEAN GLUC 4793493 Calc Mean Gluc 352 mg/dL 02/27/2019 Unkn own MICROALBUMIN URINE RANDOM 81767 U Microalbumin 2259.0 mg /L 02/26/2019 Unknown MICROALBUMIN URINE RANDOM 49468 U Creatinine 143 mg/dL 0 02/26/2019 Unknown MICROALBUMIN URINE RANDOM 00559 ALB/CR Ratio 1579.7 mg/g CR 02/26/2019 Unknown MAGNESIUM 97675 MAGNESIUM 1.4 mEq/L 02/19/2019 Unknown GFR CALC 5040499 GFR Non Afr Amr 37 mL/min 02/19/2019 Unk nown GFR CALC 0080888 GFR Afr Amr 45 mL/min 02/19/2019 Unknown LIPID GROUP 04113 Cholesterol 250 mg/dL 02/19/2019 Unkno wn LIPID GROUP 24905 Triglyceride 465 mg/dL 02/19/2019 Unkn own LIPID GROUP 32534 HDL CHOLESTEROL 30 mg/dL 02/19/2019 U nknown LIPID GROUP 18414 Chol/HDL Ratio 8.33 ratio 02/19/2019 U nknown LIPID GROUP 01961 NON-HDL Chol 220 mg/dL 02/19/2019 Unkn own LIPID GROUP 80820 LDL Cholesterol N/A Trig >400 019 Unknown LIPID GROUP 85506 Fasting Unknown 02/19/2019 Unknown COMPREHENSIVE METABOLIC 71473 AST 20 U/L 2018 Unknown COMPREHENSIVE METABOLIC 77231 ALT 30 U/L 2018 Unknown COMPREHENSIVE METABOLIC 74647 BUN 27 mg/dL 2018 Unknown COMPREHENSIVE METABOLIC 77141 ALBUMIN 3.7 g/dL 2018 Unknown COMPREHENSIVE METABOLIC 95189 CHLORIDE 105 mmol/L 02/19 Unknown COMPREHENSIVE METABOLIC 63940 Bili Total 0.5 mg/dL 02/19 Unknown COMPREHENSIVE METABOLIC 98442 ALK PHOS 79 U/L 2018 Unknown COMPREHENSIVE METABOLIC 48276 SODIUM 137 mmol/L 02/19 Unknown COMPREHENSIVE METABOLIC 37457 CREATININE 2.10 mg/dL 02/10 Unknown COMPREHENSIVE METABOLIC 62573 CALCIUM 9.5 mg/dL 2018 Unknown COMPREHENSIVE METABOLIC 11266 POTASSIUM 4.2 mmol/L 02/19 Unknown COMPREHENSIVE METABOLIC 12274 Total Protein 6.5 g/dL Unknown COMPREHENSIVE METABOLIC 22360 Glucose 202 mg/dL 2018 Unknown COMPREHENSIVE METABOLIC 12692 Bicarbonate 22 mmol/L 02/10 Unknown COMPREHENSIVE METABOLIC 56279 AGAP 10 mmol/L 2018 Unknown LIPID GROUP 27523 Cholesterol 320 mg/dL 08/27/2018 Unkno wn LIPID GROUP 38203 Triglyceride 444 mg/dL 08/27/2018 Unkn own LIPID GROUP 13736 HDL CHOLESTEROL 39 mg/dL 08/27/2018 U nknown LIPID GROUP 29805 Chol/HDL Ratio 8.21 ratio 08/27/2018 U nknown LIPID GROUP 03133 NON-HDL Chol 281 mg/dL 08/27/2018 Unkn own LIPID GROUP 58616 LDL Cholesterol N/A Trig >400 019 Unknown LIPID GROUP 40034 Fasting Unknown 08/27/2018 Unknown PHOSPHORUS 6320210 PHOSPHORUS 2.1 mg/dL 08/24/2018 Unknown PROTEIN/CREAT URINE WITH RATIO 85992|61049 U Protein 515 mg/ dL 08/24/2018 Unknown PROTEIN/CREAT URINE WITH RATIO 15727|31857 U Creatinine 116 mg/dL 08/24/2018 Unknown PROTEIN/CREAT URINE WITH RATIO 71758|92202 Prot:Creat Rat 4440 mg/g 08/24/2018 Unknown MAGNESIUM 46624 MAGNESIUM 1.4 mEq/L 08/24/2018 Unknown GFR CALC 1845731 GFR Non Afr Amr 44 mL/min 08/24/2018 Unk nown GFR CALC 0428168 GFR Afr Amr 53 mL/min 08/24/2018 [place] [address] Glucose TNP:Unknown Can shaw Reason 08/24/2018 [place] [address] CREATININE TNP:Unknown Cancel Reason 08/24/2018 [place] [address] BUN TNP:Unknown Can shaw Reason 08/24/2018 [place] [address] SODIUM TNP:Unknown Can shaw Reason 08/24/2018 [place] [address] POTASSIUM TNP:Unknown Cancel Reason 08/24/2018 [place] [address] CHLORIDE TNP:Unknown Can shaw Reason 08/24/2018 [place] [address] Bicarbonate TNP:Unknow n Cancel Reason 08/24/2018 [place] [address] AGAP TNP:Unknown Can shaw Reason 08/24/2018 [place] [address] CALCIUM TNP:Unknown Can shaw Reason 08/24/2018 Unknown COMPREHENSIVE METABOLIC 76982 AST 21 U/L 2018 Unknown COMPREHENSIVE METABOLIC 89366 ALT 35 U/L 2018 Unknown COMPREHENSIVE METABOLIC 74991 BUN 25 mg/dL 2018 Unknown COMPREHENSIVE METABOLIC 93303 ALBUMIN 4.5 g/dL 2018 Unknown COMPREHENSIVE METABOLIC 53047 CHLORIDE 106 mmol/L 08/24 Unknown COMPREHENSIVE METABOLIC 68824 Bili Total 0.4 mg/dL 08/24 Unknown COMPREHENSIVE METABOLIC 85575 ALK PHOS 64 U/L 2018 Unknown COMPREHENSIVE METABOLIC 03677 SODIUM 141 mmol/L 08/24 Unknown COMPREHENSIVE METABOLIC 94351 CREATININE 1.81 mg/dL 08/10 Unknown COMPREHENSIVE METABOLIC 27803 CALCIUM 10.3 mg/dL 08/24 Unknown COMPREHENSIVE METABOLIC 70506 POTASSIUM 3.4 mmol/L 08/24 Unknown COMPREHENSIVE METABOLIC 31578 Total Protein 7.2 g/dL Unknown COMPREHENSIVE METABOLIC 14018 Glucose 101 mg/dL 2018 Unknown COMPREHENSIVE METABOLIC 83541 Bicarbonate 23 mmol/L 08/10 Unknown COMPREHENSIVE METABOLIC 18077 AGAP 12 mmol/L 2018 Unknown UA W/MICR 03447 UA Urine Appear Normal 08/24/2018 Unk nown UA W/MICR 67129 UA Protein 3+ 08/24/2018 Unknown UA W/MICR 97998 UA Hemoglobin Trace 08/24/2018 Unkno wn UA W/MICR 40992 UA Glucose 3+ 08/24/2018 Unknown UA W/MICR 76016 UA Ketones Negative 08/24/2018 Unknown UA W/MICR 52994 UA pH 6.0 08/24/2018 Unknown UA W/MICR 22659 U Spec [place] 1.025 08/24/2018 Unkn own UA W/MICR 23019 UA Bilirubin Negative 08/24/2018 Unknow n UA W/MICR 40265 UA Leuk Esteras Negative 08/24/2018 Unk nown UA W/MICR 79966 UA Nitrite NEG 08/24/2018 Unknown UA W/MICR 41847 UA WBC/hpf 1 08/24/2018 Unknown UA W/MICR 91296 UA RBC auto 12.9 /uL 08/24/2018 Unknown UA W/MICR 50483 UA RBC hpf 2 08/24/2018 Unknown UA W/MICR 96925 UA WBC auto 5.9 /uL 08/24/2018 Unknown UA W/MICR 87566 UA SQ EPI auto 5.2 /uL 08/24/2018 Unkn own UA W/MICR 82997 UA H Cast auto 0.10 /uL 08/24/2018 Unkn own PROGRAF [id number] Prograf 7.3 ng/mL 08/24/2018 Unknown MICROALBUMIN URINE RANDOM 71719 U Microalbumin 3485.2 mg /L 08/24/2018 Unknown MICROALBUMIN URINE RANDOM 84785 U Creatinine 116 mg/dL 0 08/24/2018 Unknown MICROALBUMIN URINE RANDOM 87440 ALB/CR Ratio 3004.5 mg/g CR 08/24/2018 Unknown GLYCOSYLATED HEMOGLOBIN TEST 93227 Hgb A1c 78973-2 13.3 % 0 06/29/2018 Unknown MEAN GLUC [id number] Calc Mean Gluc 335 mg/dL 06/29/2018 Unkn own COMPREHENSIVE METABOLIC 59666 AST 17 U/L 2017 Unknown COMPREHENSIVE METABOLIC 03475 ALT 24 U/L 2017 Unknown COMPREHENSIVE METABOLIC 45396 BUN 24 mg/dL 2017 Unknown COMPREHENSIVE METABOLIC 89024 ALBUMIN 3.9 g/dL 2017 Unknown COMPREHENSIVE METABOLIC 58920 CHLORIDE 108 mmol/L 02/06 Unknown COMPREHENSIVE METABOLIC 61552 Bili Total 0.6 mg/dL 02/06 Unknown COMPREHENSIVE METABOLIC 94486 ALK PHOS 67 U/L 2017 Unknown COMPREHENSIVE METABOLIC 17201 SODIUM 140 mmol/L 02/06 Unknown COMPREHENSIVE METABOLIC 68136 CREATININE 1.75 mg/dL 01/11 Unknown COMPREHENSIVE METABOLIC 79983 CALCIUM 9.6 mg/dL 2017 Unknown COMPREHENSIVE METABOLIC 94826 POTASSIUM 3.8 mmol/L 02/06 Unknown COMPREHENSIVE METABOLIC 88288 Total Protein 7.1 g/dL Unknown COMPREHENSIVE METABOLIC 09523 Glucose 62 mg/dL 2017 Unknown COMPREHENSIVE METABOLIC 09438 Bicarbonate 23 mmol/L 01/11 Unknown COMPREHENSIVE METABOLIC 35240 AGAP 9 mmol/L 2017 Unknown GLYCOSYLATED HEMOGLOBIN TEST 31669 Hgb A1c 32049-8 13.0 % 0 02/06/2018 Unknown GFR CALC [id number] GFR Non Afr Amr 46 mL/min 02/06/2018 Unk nown GFR CALC 5198550 GFR Afr Amr 55 mL/min 02/06/2018 Unknown MICROALBUMIN URINE RANDOM 03081 U Microalbumin 669.0 mg/ L 02/06/2018 Unknown MICROALBUMIN URINE RANDOM 07416 U Creatinine 92 mg/dL 0 02/06/2018 Unknown MICROALBUMIN URINE RANDOM 96143 ALB/CR Ratio 727.2 mg/gC R 02/06/2018 Unknown MEAN GLUC 2695909 Calc Mean Gluc 326 mg/dL 02/06/2018 Unkn own GLYCOSYLATED HEMOGLOBIN TEST 62213 Hgb A1c 75807-1 14.3 % 0 12/03/2015 Unknown THYROID STIMULATING HORMONE 46800 TSH 1.909 uIU/mL 12/03/2015 Unknown MAGNESIUM 49899 MAGNESIUM 1.5 mEq/L 12/03/2015 Unknown GFR CALC 0168061 GFR Non Afr Amr 39 mL/min 12/03/2015 Unk nown GFR CALC 4468983 GFR Afr Amr 48 mL/min 12/03/2015 Unknown MEAN GLUC 6357588 Mean Glucose 364 mg/dL 12/03/2015 Unknow n COMPREHENSIVE METABOLIC 67559 AST 34 U/L 2015 Unknown COMPREHENSIVE METABOLIC 33465 ALT 78 U/L 2015 Unknown COMPREHENSIVE METABOLIC 55821 BUN 29 mg/dL 2015 Unknown COMPREHENSIVE METABOLIC 72362 ALBUMIN 4.3 g/dL 2015 Unknown COMPREHENSIVE METABOLIC 97792 CHLORIDE 93 mmol/L 2015 Unknown COMPREHENSIVE METABOLIC 35107 Bili Total 0.7 mg/dL 12/02 Unknown COMPREHENSIVE METABOLIC 95422 ALK PHOS 83 U/L 2015 Unknown COMPREHENSIVE METABOLIC 30155 SODIUM 125 mmol/L 12/02 Unknown COMPREHENSIVE METABOLIC 77756 CREATININE 2.01 mg/dL 11/11 Unknown COMPREHENSIVE METABOLIC 39604 CALCIUM 9.8 mg/dL 2015 Unknown COMPREHENSIVE METABOLIC 54950 POTASSIUM 4.3 mmol/L 12/02 Unknown COMPREHENSIVE METABOLIC 44500 Total Protein 7.3 g/dL Unknown COMPREHENSIVE METABOLIC 16057 Glucose 542 mg/dL 2015 Unknown COMPREHENSIVE METABOLIC 52931 Bicarbonate 23 mmol/L 11/11 Unknown COMPREHENSIVE METABOLIC 90435 AGAP 9 mmol/L 2015 Unknown COMPREHENSIVE METABOLIC 98962 AST 31 U/L 2013 Unknown COMPREHENSIVE METABOLIC 79159 ALT 52 IU/L 2013 Unknown COMPREHENSIVE METABOLIC 33442 BUN 26 MG/DL 2013 Unknown COMPREHENSIVE METABOLIC 79385 ALBUMIN 4.9 GM/DL 2013 Unknown COMPREHENSIVE METABOLIC 89274 CHLORIDE 108 MMOL/L 07/30 Unknown COMPREHENSIVE METABOLIC 17390 BILI TOT 0.4 MG/DL 2013 Unknown COMPREHENSIVE METABOLIC 03809 ALK PHOS 68 U/L 2013 Unknown COMPREHENSIVE METABOLIC 44062 SODIUM 138 MMOL/L 07/30 Unknown COMPREHENSIVE METABOLIC 97570 CREATININE 2.02 MG/DL 07/13 Unknown COMPREHENSIVE METABOLIC 31574 CALCIUM 10.3 MG/DL 07/30 Unknown COMPREHENSIVE METABOLIC 48527 POTASSIUM 5.0 MMOL/L 07/30 Unknown COMPREHENSIVE METABOLIC 73259 PROT TOT 7.3 GM/DL 2013 Unknown COMPREHENSIVE METABOLIC 11957 Glucose 89 MG/DL 2013 Unknown COMPREHENSIVE METABOLIC 96518 BICARB 24 MMOL/L 2013 Unknown COMPREHENSIVE METABOLIC 25943 ANION GAP 6 MEQ/L 2013 Unknown GFR CALC 4040368 GFR AA 48.0L ML/MIN 07/30/2013 Unknow n GFR CALC 6567355 GFR NON-AA 40.0L ML/MIN 07/30/2013 Unkno wn COMPLETE BLOOD COUNT 9343881 WBC 7.9 10e9/L 07/30/19 14 Unknown COMPLETE BLOOD COUNT 1351659 RBC 4.94 10e12/L 2013 Unknown COMPLETE BLOOD COUNT 9862141 HGB 14.0 g/dL 4 Unknown COMPLETE BLOOD COUNT 9577459 HCT DET 41.5 % 4 Unknown COMPLETE BLOOD COUNT 0377489 MCV 84.0 fL 4 Unknown COMPLETE BLOOD COUNT 0252896 MCH 28.3 pg 4 Unknown COMPLETE BLOOD COUNT 5707700 MCHC 33.7 g/dL 4 Unknown COMPLETE BLOOD COUNT 0439191 PLT 176 10e9/L 07/30/19 14 Unknown COMPLETE BLOOD COUNT [id number] MPV 11.8 fL 4 Unknown COMPLETE BLOOD COUNT 4637952 CLAYTON % 75.4 % 4 Unknown COMPLETE BLOOD COUNT 6421735 LY % 13.7 % 4 Unknown COMPLETE BLOOD COUNT 0706078 MON % 8.9 % 4 Unknown COMPLETE BLOOD COUNT [id number] EOS % 1.7 % 4 Unknown COMPLETE BLOOD COUNT 1384953 BASO % 0.3 % 4 Unknown COMPLETE BLOOD COUNT 1529844 RDW 13.4 % 4 Unknown COMPLETE BLOOD COUNT 7363876 ABS CLAYTON 5.96 10e9/L 014 Unknown COMPLETE BLOOD COUNT [id number] ABS LYMPH 1.08 10e9/L 014 Unknown COMPLETE BLOOD COUNT [id number] ABS MONO 0.70 10e9/L 014 Unknown COMPLETE BLOOD COUNT [id number] ABS EOS 0.13 10e9/L 014 Unknown COMPLETE BLOOD COUNT 5672011 ABS BASO 0.02 10e9/L 014 Unknown COMPLETE BLOOD COUNT [id number] RDW-SD 40.2 fL 4 Unknown C-REACTIVE PROTEIN (CRP) QUANT 24366 CRP 0.2 MG/DL 07/30/2013 Unknown CANCEL 0925691 CANCEL FOOTNOTE 05/23/2012 Unknown PEND CHEM PEND CHEM FOOTNOTE 05/22/2012 Unknown COMPREHENSIVE METABOLIC 96325 AST 61 U/L 2011 Unknown COMPREHENSIVE METABOLIC 57328 ALT 106 U/L 2011 Unknown COMPREHENSIVE METABOLIC 63021 BUN 33 MG/DL 2011 Unknown COMPREHENSIVE METABOLIC 71835 ALBUMIN 5.0 GM/DL 2011 Unknown COMPREHENSIVE METABOLIC 32717 CHLORIDE 89 MMOL/L 2011 Unknown COMPREHENSIVE METABOLIC 34668 BILI TOT 0.6 MG/DL 2011 Unknown COMPREHENSIVE METABOLIC 02065 ALK PHOS 129 U/L 2011 Unknown COMPREHENSIVE METABOLIC 16102 SODIUM 120 MMOL/L 05/21 Unknown COMPREHENSIVE METABOLIC 22309 CREATININE 2.23 MG/DL 05/12 Unknown COMPREHENSIVE METABOLIC 36029 CALCIUM 9.8 MG/DL 2011 Unknown COMPREHENSIVE METABOLIC 43062 POTASSIUM 5.3 MMOL/L 05/21 Unknown COMPREHENSIVE METABOLIC 59797 PROT TOT 7.8 GM/DL 2011 Unknown COMPREHENSIVE METABOLIC 82506 Glucose 789 MG/DL 2011 Unknown COMPREHENSIVE METABOLIC 20507 BICARB 20 MMOL/L 2011 Unknown COMPREHENSIVE METABOLIC 99345 ANION GAP 11 MMOL/L 2011 Unknown GFR CALC 0599797 GFR AA 43.0L ML/MIN 05/21/2012 Unknow n GFR CALC 9073061 GFR NON-AA 36.0L ML/MIN 05/21/2012 Unkno wn THYROID STIMULATING HORMONE 27116 TSH 1.499 uIU/ML 01/27/2011 Unknown FREE T4 91790 FREE T4 1.15 NG/DL 01/27/2011 Unknown Procedures Procedure Codes Date ROUTINE VENIPUNCTURE CPT-4: 21448 02/26/2019 A1C HPLC CPT-4: 17596 02/26/2019 MICROALBUMIN QUANTITATIVE CPT-4: 52093 02/26/2019 ROUTINE VENIPUNCTURE CPT-4: 30066 02/19/2019 METABOLIC PANEL TOTAL CA CPT-4: 30511 02/19/2019 MICROALBUMIN, QUANTITATIVE CPT-4: 54926 02/19/2019 LIPID PANEL CPT-4: 87854 02/19/2019 COMPREHEN METABOLIC PANEL CPT-4: 80613 02/19/2019 ASSAY OF MAGNESIUM CPT-4: 70232 02/19/2019 METABOLIC PANEL TOTAL CA CPT-4: 52521 08/24/2018 COMPREHEN METABOLIC PANEL CPT-4: 59543 08/24/2018 ASSAY OF MAGNESIUM CPT-4: 18366 08/24/2018 MICROALBUMIN QUANTITATIVE CPT-4: 61028 08/24/2018 PROTEIN/CREAT URINE WITH RATIO CPT-4: 65663|51995 9 PHOSPHORUS CPT-4: 4370196 08/24/2018 LIPID PANEL CPT-4: 36939 08/24/2018 ROUTINE VENIPUNCTURE CPT-4: 19224 06/29/2018 A1C HPLC CPT-4: 24344 06/29/2018 URINALYSIS NONAUTO W/O SCOPE CPT-4: 72129 02/06/2018 URINE CULTURE/ COLONY COUNT CPT-4: 27987 02/06/2018 MICROALBUMIN QUANTITATIVE CPT-4: 11428 02/06/2018 ROUTINE VENIPUNCTURE CPT-4: 40813 02/06/2018 COMPREHEN METABOLIC PANEL CPT-4: 42956 02/06/2018 A1C HPLC CPT-4: 95456 02/06/2018 ROUTINE VENIPUNCTURE CPT-4: 03771 11/02/2017 COMPREHEN METABOLIC PANEL CPT-4: 24996 11/02/2017 A1C HPLC CPT-4: 37024 11/02/2017 TDAP VACCINE 7 YRS/> IM CPT-4: 94733 07/27/2017 IMMUNIZATION ADMIN CPT-4: 81056 07/27/2017 URINALYSIS NONAUTO W/O SCOPE CPT-4: 92268 02/16/2016 URINE CULTURE/ COLONY COUNT CPT-4: 58658 02/16/2016 PRESCRIP TRANSMIT VIA ERX SY CPT-4: G8553 02/16/2016 ROUTINE VENIPUNCTURE CPT-4: 41264 12/03/2015 ASSAY THYROID STIM HORMONE CPT-4: 66384 12/03/2015 COMPREHEN METABOLIC PANEL CPT-4: 30981 12/03/2015 A1C HPLC CPT-4: 80760 12/03/2015 ASSAY OF MAGNESIUM CPT-4: 39583 12/03/2015 URINALYSIS NONAUTO W/O SCOPE CPT-4: 31453 12/03/2015 URINE CULTURE/ COLONY COUNT CPT-4: 76474 12/03/2015 URINALYSIS NONAUTO W/O SCOPE CPT-4: 17957 07/30/2013 URINE CULTURE/ COLONY COUNT CPT-4: 77646 07/30/2013 ROUTINE VENIPUNCTURE CPT-4: 21587 07/30/2013 COMPLETE CBC W/AUTO DIFF WBC CPT-4: 91556 07/30/2013 COMPREHEN METABOLIC PANEL CPT-4: 28418 07/30/2013 C-REACTIVE PROTEIN CPT-4: 54631 07/30/2013 ROUTINE VENIPUNCTURE CPT-4: 71330 08/20/2012 ASSAY OF FREE THYROXINE CPT-4: 17653 08/20/2012 ASSAY THYROID STIM HORMONE CPT-4: 46766 08/20/2012 COMPREHEN METABOLIC PANEL CPT-4: 13219 08/20/2012 COMPLETE CBC W/AUTO DIFF WBC CPT-4: 56329 08/20/2012 LIPID PANEL CPT-4: 58352 08/20/2012 A1C GLYCOSYLATED HEMOGLOBIN TEST CPT-4: 18114 013 ASSAY, GLUCOSE, BLOOD QUANT CPT-4: 14274 06/21/2012 ASSAY, GLUCOSE, BLOOD QUANT CPT-4: 26417 05/21/2012 ROUTINE VENIPUNCTURE CPT-4: 25753 05/21/2012 COMPREHEN METABOLIC PANEL CPT-4: 12111 05/21/2012 A1C GLYCOSYLATED HEMOGLOBIN TEST CPT-4: 30594 012 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 SMKLESS 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 USER CPT-4: G8456 06/14/2011 PT VIS DOC USE EHR CER ATCB CPT-4: G8447 06/14/2011 PRESCRIP TRANSMIT VIA ERX SY CPT-4: G8553 06/14/2011 PT VIS DOC USE EHR CER ATCB CPT-4: G8447 03/03/2011 PRESCRIP TRANSMIT VIA ERX SY CPT-4: G8553 03/03/2011 ROUTINE VENIPUNCTURE CPT-4: 45818 01/27/2011 ASSAY OF FREE THYROXINE CPT-4: 89686 01/27/2011 ASSAY THYROID STIM HORMONE CPT-4: 63089 01/27/2011 PT VIS DOC USE EHR CER ATCB CPT-4: G8447 01/27/2011 PRESCRIP TRANSMIT VIA ERX SY CPT-4: G8553 01/27/2011 TOBACCO USE ASSESSED CPT-4: 1000F 12/02/2010 INCOMPLETE DOC PT ON MEDS CPT-4: G8429 12/02/2010 PT VIS DOC USE EHR CER ATCB CPT-4: G8447 12/02/2010 PRESCRIP TRANSMIT VIA ERX SY CPT-4: G8553 12/02/2010 Vital Signs Date Vital 02/26/2019 Blood Pressure 1: 136/94 Code: 8480-6 Heart Rate 1: 76 bpm SpO2: 98% Temperature: 36.8 (C) / 98.2 (F) Weight: 255 lbs 06/26/2018 Blood Pressure 1: 140/90 Code: 8480-6 Heart Rate 1: 83 bpm Respiratory Rate: 18 bpm SpO2: 97% Temperature: 36.4 (C) / 97.5 (F) We ight: 259 lbs 02/06/2018 Blood Pressure 1: 158/90 Code: 8480-6 BMI: 34.3 Code: 39059-8 Heart Rate 1: 78 bpm Height: 6'1" Respiratory Rate: 20 bpm SpO2: 98% Tempera ture: 36.6 (C) / 97.8 (F) Weight: 260 lbs 11/02/2017 Blood Pressure 1: 134/92 Code: 8480-6 BMI: 32.3 Code: 25083-3 Heart Rate 1: 72 bpm Height: 6'1" SpO2: 98% Temperature: 36.4 (C) / 97.5 (F) Weight: 245 lbs 07/27/2017 Blood Pressure 1: 136/64 Code: 8480-6 BMI: 30.9 Code: 83702-4 Heart Rate 1: 78 bpm Height: 6'1" Respiratory Rate: 22 bpm SpO2: 98% Tempera ture: 36.4 (C) / 97.6 (F) Weight: 234 lbs 04/05/2017 Blood Pressure 1: 126/90 Code: 8480-6 BMI: 33.5 Code: 86362-7 Heart Rate 1: 76 bpm Height: 6'1" Respiratory Rate: 20 bpm SpO2: 97% Tempera ture: 37.0 (C) / 98.6 (F) Weight: 254 lbs 06/20/2016 Blood Pressure 1: 122/74 Code: 8480-6 BMI: 35.2 Code: 13373-0 Heart Rate 1: 80 bpm Height: 6'1" Respiratory Rate: 20 bpm SpO2: 97% Tempera ture: 36.9 (C) / 98.5 (F) Weight: 267 lbs 02/16/2016 Blood Pressure 1: 136/82 Code: 8480-6 BMI: 36.4 Code: 70859-1 Heart Rate 1: 66 bpm Height: 6'1" Respiratory Rate: 18 bpm SpO2: 96% Tempera ture: 36.4 (C) / 97.6 (F) Weight: 276 lbs 12/03/2015 Blood Pressure 1: 122/86 Code: 8480-6 BMI: 39.2 Code: 15495-7 Heart Rate 1: 76 bpm Height: 6' Respiratory Rate: 20 bpm Temperature: 37 .1 (C) / 98.7 (F) Weight: 289 lbs 06/24/2015 Blood Pressure 1: 136/84 Code: 8480-6 BMI: 40.7 Code: 20061-2 Heart Rate 1: 84 bpm Height: 6' Respiratory Rate: 20 bpm Temperature: 36 .9 (C) / 98.4 (F) Weight: 300 lbs 06/11/2015 Blood Pressure 1: 160/82 Code: 8480-6 BMI: 40.4 Code: 02380-8 Heart Rate 1: 82 bpm Height: 6' Respiratory Rate: 22 bpm Temperature: 36 .5 (C) / 97.7 (F) Weight: 298 lbs 07/17/2014 Blood Pressure 1: 132/84 Code: 8480-6 BMI: 41.0 Code: 12665-9 Heart Rate 1: 76 bpm Height: 6'1" Respiratory Rate: 20 bpm Temperature: 36 .9 (C) / 98.4 (F) Weight: 311 lbs 10/31/2013 Blood Pressure 1: 132/80 Code: 8480-6 BMI: 41.2 Code: 27833-1 Heart Rate 1: 84 bpm Height: 6'1" Respiratory Rate: 22 bpm Temperature: 36 .1 (C) / 97.0 (F) Weight: 312 lbs 08/01/2013 Blood Pressure 1: 142/86 Code: 8480-6 BMI: 42.4 Code: 80601-0 Heart Rate 1: 84 bpm Height: 6' [...] 1: 156/108 Code: 8480-6 BMI: 41.9 Code: 68010-7 Heart Rate 1: 92 bpm Height: 6' Respiratory Rate: 20 bpm Temperature: 36 .9 (C) / 98.4 (F) Weight: 309 lbs 02/27/2013 Blood Pressure 1: 162/114 Code: 8480-6 BMI: 41.0 Code: 82369-4 Heart Rate 1: 84 bpm Height: 6' Respiratory Rate: 20 bpm Temperature: 36 .7 (C) / 98.0 (F) Weight: 302 lbs 01/01/2013 Blood Pressure 1: 138/86 Code: 8480-6 BMI: 41.0 Code: 48150-5 Heart Rate 1: 76 bpm Height: 6' Respiratory Rate: 20 bpm Temperature: 36 .7 (C) / 98.0 (F) Weight: 302 lbs 11/27/2012 Blood Pressure 1: 136/92 Code: 8480-6 BMI: 41.2 Code: 03589-8 Heart Rate 1: 80 bpm Height: 6' Respiratory Rate: 20 bpm Temperature: 36 .6 (C) / 97.8 (F) Weight: 304 lbs 08/28/2012 Blood Pressure 1: 126/80 Code: 8480-6 BMI: 41.8 Code: 70640-6 Heart Rate 1: 80 bpm Height: 6' Respiratory Rate: 20 bpm Temperature: 36 .4 (C) / 97.6 (F) Weight: 308 lbs 07/03/2012 Blood Pressure 1: 114/80 Code: 8480-6 BMI: 42.3 Code: 22402-1 Heart Rate 1: 72 bpm Height: 6' Respiratory Rate: 20 bpm Temperature: 36 .6 (C) / 97.9 (F) Weight: 312 lbs 06/21/2012 Blood Pressure 1: 152/100 Code: 8480-6 BMI: 43.3 Code: 35655-3 Heart Rate 1: 72 bpm Height: 6' Temperature: 36.8 (C) / 98.2 (F) Weight: 319 lbs 05/30/2012 Blood Pressure 1: 122/78 Code: 8480-6 BMI: 43.0 Code: 17182-5 Heart Rate 1: 72 bpm Height: 6' Respiratory Rate: 20 bpm Temperature: 36 .7 (C) / 98.0 (F) Weight: 317 lbs 05/21/2012 Blood Pressure 1: 126/94 Code: 8480-6 BMI: 44.2 Code: 29637-2 Heart Rate 1: 92 bpm Height: 6' Respiratory Rate: 20 bpm Temperature: 36 .6 (C) / 97.9 (F) Weight: 326 lbs 01/24/2012 Blood Pressure 1: 122/90 Code: 8480-6 BMI: 44.5 Code: 92303-5 Heart Rate 1: 76 bpm Height: 6' Respiratory Rate: 20 bpm Temperature: 36 .8 (C) / 98.2 (F) Weight: 328 lbs 09/21/2011 Blood Pressure 1: 116/80 Code: 8480-6 BMI: 44.1 Code: 41330-2 Heart Rate 1: 92 bpm Height: 6' Respiratory Rate: 20 bpm Temperature: 36 .7 (C) / 98.1 (F) Weight: 325 lbs 09/12/2011 Blood Pressure 1: 166/110 Code: 8480-6 BMI: 45.0 Code: 79820-4 Heart Rate 1: 80 bpm Height: 6' Respiratory Rate: 20 bpm Temperature: 36 .5 (C) / 97.7 (F) Weight: 332 lbs 06/14/2011 Blood Pressure 1: 142/84 Code: 8480-6 BMI: 45.6 Code: 44261-5 Heart Rate 1: 104 bpm Height: 6' Respiratory Rate: 20 bpm Temperature: 36 .4 (C) / 97.5 (F) Weight: 336 lbs 03/03/2011 Blood Pressure 1: 130/96 Code: 8480-6 Heart Rate 1: 86 bpm Temperature: 36.1 (C) / 97.0 (F) Weight: 327 lbs 01/27/2011 Blood Pressure 1: 142/96 Code: 8480-6 BMI: 42.0 Code: 01502-1 Heart Rate 1: 72 bpm Height: 6'2" Respiratory Rate: 20 bpm Temperature: 36 .7 (C) / 98.0 (F) Weight: 327 lbs 12/02/2010 Blood Pressure 1: 134/86 Code: 8480-6 Heart Rate 1: 72 bpm Temperature: 36.7 (C) / 98.1 (F) Weight: 323 lbs Functional Status No Functional Status data Reason For Visit Reason For Visit Effective Dates Notes follow up 02/26/2019 Patient needs Diovan HCT [...] Codes Date () OFFICE/OUTPATIENT VISIT EST Diagnosis: Essential (primary) hypertension[ICD10: I10] Diagnosis: 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, 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] Diagnosis: Kidney transplant status[ICD10: Z94.0] Diagnosis: Chronic kidney disease, stage 3 (moderate)[ICD10: N18.3] Diagnosis: Mixed hyperlipidemia[ICD10: E78.2] Galina LEAL Keelvar CPT-4: 74048 02/26/2019 ([id number]) NURSE/OUTPATIENT VISIT EST Diagnosis: 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, 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] Diagnosis: Essential (primary) hypertension[ICD10: I10] Diagnosis: Other specified hypothyroidism[ICD10: E03.8] Diagnosis: Mixed hyperlipidemia[ICD10: E78.2] Galina LEAL Keelvar CPT-4: 80754 02/19/2019 ([id number]) NURSE/OUTPATIENT VISIT EST Diagnosis: Kidney transplant status[ICD10: Z94.0] 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] 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] Diagnosis: Encounter for aftercare following other organ transplant[ICD10: Z48.298] Diagnosis: Mixed hyperlipidemia[ICD10: E78.2] Galina SMITH [employer] CPT-4: 04537 08/24/2018 ([id number]) NURSE/OUTPATIENT VISIT EST Diagnosis: Type 2 diabetes mellitus with diabetic neuropathy, unspecified[ICD10: E11.40] Diagnosis: Type 2 diabetes mellitus with hyperglycemia[ICD10: E11.65] 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] Diagnosis: Essential (primary) hypertension[ICD10: I10] Galina SMITH DO [employer] CPT-4: 90016 06/29/2018 ([id number]) OFFICE/OUTPATIENT VISIT EST Diagnosis: Slow transit constipation[ICD10: K59.01] Diagnosis: Epigastric pain[ICD10: R10.13] Diagnosis: Type 2 diabetes mellitus with hyperglycemia[ICD10: E11.65] Coleen SMITH [employer] CPT-4: 89517 06/26/2018 ([id number]) OFFICE/OUTPATIENT VISIT EST Diagnosis: Right lower quadrant pain[ICD10: R10.31] Diagnosis: Type 2 diabetes mellitus with diabetic neuropathy, unspecified[ICD10: E11.40] Coleen SMITH [employer] CPT-4: 97795 ([id number]) OFFICE/OUTPATIENT VISIT EST Diagnosis: Type 2 diabetes mellitus with hyperglycemia[ICD10: E11.65] Diagnosis: Mixed hyperlipidemia[ICD10: E78.2] Diagnosis: Essential (primary) hypertension[ICD10: I10] Coleen SMITH [employer] CPT-4: 52485 11/02/2017 ([id number]) PREV VISIT EST AGE 18-39 Diagnosis: Encounter for general adult medical examination with abnormal findings[ICD10: Z00.01] Diagnosis: Abrasion of right hand, initial encounter[ICD10: S60.511A] 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] Coleen SMITH [employer] CPT-4: 43488 OFFICE/OUTPATIENT VISIT EST 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] Diagnosis: Tinea pedis[ICD10: B35.3] Coleen Frey GALINA SusuKarol [facility] CPT-4: 70755 04/05/2017 ([id number]) OFFICE/OUTPATIENT VISIT EST Diagnosis: 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, 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] Diagnosis: Mixed hyperlipidemia[ICD10: E78.2] Diagnosis: Essential (primary) hypertension[ICD10: I10] Galina ASENCIO SusuKarol [facility] CPT-4: 84204 06/20/2016 ([id number]) OFFICE/OUTPATIENT VISIT EST Diagnosis: Urinary tract infection, site not specified[ICD10: N39.0] Missy Dc GALINA Chance [facility] CPT-4: 99459 02/16/2016 ([id number]) OFFICE/OUTPATIENT VISIT EST Diagnosis: Type 2 diabetes mellitus with hyperglycemia[ICD10: E11.65] Diagnosis: Cramp and spasm[ICD10: R25.2] Diagnosis: Hematuria, unspecified[ICD10: R31.9] [facility] C[facility]: 43892 12/03/2015 OFFICE/OUTPATIENT VISIT EST Diagnosis: Type 2 diabetes mellitus with diabetic neuropathy, unspecified[ICD10: E11.40] Alejandra [facility] CPT-4: 21206 06/24/2015 ([id number]) OFFICE/OUTPATIENT VISIT EST Diagnosis: Acute sinusitis, unspecified[ICD10: J01.90] Diagnosis: Otitis media, unspecified, bilateral[ICD10: H66.93] Galina [facility] CPT-[facility]: 65138 06/11/2015 ([id number]) OFFICE/OUTPATIENT VISIT EST Diagnosis: 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[ICD9: 250.01] Diagnosis: HYPERTENSION[ICD9: 401.9] Diagnosis: HYPERLIPIDEMIA NEC/NOS[ICD9: 272.4] Diagnosis: KIDNEY TRANSPLANT STATUS[ICD9: V42.0] Galina Chance [facility] CPT-4: 94508 07/17/2014 ([id number]) OFFICE/OUTPATIENT VISIT EST Diagnosis: 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[ICD9: 250.01] Diagnosis: HYPERTENSION[ICD9: 401.9] Galina ASENCIO SusuKarol [facility] CPT-4: 20939 10/31/2013 ([id number]) OFFICE/OUTPATIENT VISIT EST Diagnosis: 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I[ICD9: 250.00] Diagnosis: HYPERTENSION[ICD9: 401.9] Diagnosis: HYPERLIPIDEMIA NEC/NOS[ICD9: 272.4] Galina GE SKarol [facility] CPT-4: 99831 08/01/2013 OFFICE/OUTPATIENT VISIT EST Diagnosis: HEMATURIA NOS[ICD9: 599.70] Diagnosis: Abdominal pain, acute, right lower quadrant[ICD9: 789.03] Diagnosis: KIDNEY TRANSPLANT STATUS[ICD9: V42.0] Alejandra KERN SusuKarol [facility] CPT-4: 65553 07/30/2013 ([id number]) OFFICE/OUTPATIENT VISIT EST Diagnosis: Uncontrolled hypertension[ICD9: 401.9] Diagnosis: BRIEF DEPRESSIVE REACT[ICD9: 309.0] Galina GE SKarol [facility] CPT-4: 91755 05/30/2013 ([id number]) OFFICE/OUTPATIENT VISIT EST Diagnosis: HYPERTENSION[ICD9: 401.9] Diagnosis: Anticipatory grieving[ICD9: 309.0] Galina WARREN SusuKarol [facility] CPT-4: 75346 04/29/2013 ([id number]) OFFICE/OUTPATIENT VISIT EST Diagnosis: 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I, UNCONTROLLED[ICD9: 250.02] Diagnosis: HYPERTENSION[ICD9: 401.9] Diagnosis: HYPOTHYROIDISM[ICD9: 244.9] Diagnosis: KIDNEY TRANSPLANT STATUS[ICD9: V42.0] Galina KERN SusuKarol [facility] CPT-4: 30308 02/27/2013 OFFICE/OUTPATIENT VISIT EST Diagnosis: Paronychia[ICD9: 681.9] Diagnosis: ONYCHOMYCOSIS[ICD9: 110.1] Viky MEJIALINE Meron [facility] CPT-4: 44946 01/01/2013 ([id number]) OFFICE/OUTPATIENT VISIT EST Diagnosis: 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I, UNCONTROLLED[ICD9: 250.02] Diagnosis: HYPERLIPIDEMIA NEC/NOS[ICD9: 272.4] Diagnosis: HYPERTENSION[ICD9: 401.9] Diagnosis: KIDNEY TRANSPLANT STATUS[ICD9: V42.0] Diagnosis: HYPOTHYROIDISM[ICD9: 244.9] Galina Rodranjanashravan GALINA Meron [facility] CPT-4: 22843 11/27/2012 ([id number]) OFFICE/OUTPATIENT VISIT EST Diagnosis: 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I[ICD9: 250.00] Diagnosis: HYPOTHYROIDISM[ICD9: 244.9] Diagnosis: HYPERLIPIDEMIA NEC/NOS[ICD9: 272.4] Diagnosis: HYPERTENSION[ICD9: 401.9] Galina Rodranjanashravan GALINA SusuKarol [facility] CPT-4: 62120 08/28/2012 ([id number]) OFFICE/OUTPATIENT VISIT EST Diagnosis: HYPOTHYROIDISM[ICD9: 244.9] Diagnosis: 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I, UNCONTROLLED[ICD9: 250.02] Diagnosis: HYPERLIPIDEMIA NEC/NOS[ICD9: 272.4] Diagnosis: KIDNEY TRANSPLANT STATUS[ICD9: V42.0] Diagnosis: HYPERTENSION[ICD9: 401.9] Galina Velascoranjanashravan [facility] CPT-4: 99845 08/20/2012 OFFICE/OUTPATIENT VISIT EST Diagnosis: 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I, UNCONTROLLED[ICD9: 250.02] Diagnosis: HYPERTENSION[ICD9: 401.9] Galina ASENCIO [facility] CPT-4: 38334 07/03/2012 OFFICE/OUTPATIENT VISIT EST Diagnosis: 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I, UNCONTROLLED[ICD9: 250.02] Diagnosis: HYPERTENSION[ICD9: 401.9] Galina Bernalshravan GALINA [facility]uKarol [facility] CPT-4: 44226 06/21/2012 OFFICE/OUTPATIENT VISIT EST Diagnosis: 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I, UNCONTROLLED[ICD9: 250.02] Diagnosis: HYPERTENSION[ICD9: 401.9] Diagnosis: HYPERLIPIDEMIA NEC/NOS[ICD9: 272.4] Diagnosis: KIDNEY TRANSPLANT STATUS[ICD9: V42.0] Galina SMITH [facility] CPT-4: 27300 05/30/2012 ([id number]) OFFICE/OUTPATIENT VISIT EST Diagnosis: HYPERTENSION[ICD9: 401.9] Diagnosis: VISUAL DISTURBANCE[ICD9: 368.9] Galina SMITH [facility] CPT-4: 32599 05/21/2012 ([id number]) OFFICE/OUTPATIENT VISIT EST Diagnosis: HYPERTENSION[ICD9: 401.9] Diagnosis: HYPOTHYROIDISM[ICD9: 244.9] Diagnosis: KIDNEY TRANSPLANT STATUS[ICD9: V42.0] [facility] 83233 01/24/2012 OFFICE/OUTPATIENT VISIT EST Diagnosis: DIZZINESS/VERTIGO[ICD9: 780.4] Diagnosis: HYPERTENSION[ICD9: 401.9] Galina VELASCO [facility] CPT-4: 40088 09/21/2011 ([id number]) OFFICE/OUTPATIENT VISIT EST Diagnosis: HYPERTENSION[ICD9: 401.9] Diagnosis: HYPOTHYROIDISM[ICD9: 244.9] Diagnosis: HYPERLIPIDEMIA NEC/NOS[ICD9: 272.4] Diagnosis: KIDNEY TRANSPLANT STATUS[ICD9: V42.0] [facility]: 31467 09/12/2011 OFFICE/OUTPATIENT VISIT EST Diagnosis: HYPOTHYROIDISM[ICD9: 244.9] Diagnosis: HYPERTENSION[ICD9: 401.9] Diagnosis: CEPHALGIA[ICD9: 784.0] Galina Augustine [facility] CPT-4: 58428 06/14/2011 OFFICE/OUTPATIENT VISIT EST Diagnosis: HYPERTENSION[ICD9: 401.9] Diagnosis: PHARYNGITIS, ACUTE[ICD9: 462] Diagnosis: HYPOTHYROIDISM[ICD9: 244.9] Galina MEJIALINE SKarol Dank [facility] CPT-4: 32383 03/03/2011 OFFICE/OUTPATIENT VISIT EST Diagnosis: HYPOTHYROIDISM[ICD9: 244.9] Diagnosis: KIDNEY TRANSPLANT STATUS[ICD9: V42.0] Diagnosis: HYPERTENSION[ICD9: 401.9] Diagnosis: SINUSITIS, ACUTE[ICD9: 461.9] Galina Luis GALINA SMITH DO [employer] CPT-4: 61408 01/27/2011 ([id number]) OFFICE/OUTPATIENT VISIT EST Galina Rodchandler SMITH DO [employer] CPT-4: [id number] 12/02/2010 Plan of Care Planned Activity Notes Codes Status Date Visit Diagnosis Plan: 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, UNCO NTROLLED Discussion: Check HbA1C ICD-9 : 250.03 ICD-10 : E10.9 02/26/2019 Visit Diagnosis Plan: Essential (primary) hypertension Discussion: Noncompliant Start amlodopine 5mg daily ICD-9 : 401.9 ICD-10 : I10 02/26/2019 Visit Diagnosis Plan: Mixed hyperlipidemia Discussion: Start atorvastatin 80mg daily ICD-9 : 272.4 ICD-10 : E78.2 02/26/2019 Appointment: Galina Smith WPtel: [address] [place] [address] FOLLOW UP 02/26/2019 Patient Education: atorvastatin- Opt[employer] Coupon [phone] [email or web address] Completed 02/26/2019 Appointment: Galina Smith WPtel: [address] [place] [address] [place] LAB 02/19/2019 Appointment: Coleen Frey [address] [place] [address] US had 2 flat tires this morning. NO SHOW - FORGIVE N 02/19/2019 Appointment: Galina Smith WPtel: [address] [place] [address] LAB 08/24/2018 Appointment: Galina Smith WPtel: [address] [place] [address] [place] LAB 06/29/2018 Visit Diagnosis Plan: Epigastric pain [...] cmp but he had labs done in [facility] [place] [place]. will obtain lab results and order additional labs as needed. ICD-9 : 250.02 ICD-10 : E11.65 06/26/2018 Appointment: Coleen Frey [address] [place], [place] [phone] ACUTE ILLNESS 06/26/2018 Visit Diagnosis Plan: Type [...] ICD-10 : R10.31 02/06/2018 Appointment: Coleen Frey [address] [place], [place] [phone] ACUTE ILLNESS 02/06/2018 Patient Education: Patient Medication [...] ICD-10 : I10 11/02/2017 Appointment: Coleen Frey [address] [place], [place] [phone] [place] FOLLOW UP 11/02/2017 Patient Education: Patient Medication [...] E11.59 07/27/2017 Visit Diagnosis Plan: Encounter for [facility] medical examination with abnormal findings Discussion: patient deferred influenza v accine at this time, received tdap shot. routine labs performed earlier today so will obtain results from [facility]. ICD-9 : V70.0 ICD-10 : Z00.01 07/27/2017 Appointment: Coleen Frey [address] [place], [place] [id number] Annual Well Visit 07/27/2017 Patient Education: Patient [...] : E11.59 04/05/2017 App[facility]ment[id number] FO[facility] 04/05/2017 Patient Education: Patient Medication Summary Completed 04/05/2017 Patient Education: Patient Medication Summary Completed 04/05/2017 Care Plan: CBC Pending 04/05/2017 Care Plan: LIPID PANEL LOINC : 76529-6 Pending 04/05/2017 Care Plan: COMPREH[place]ABOL[place] : 60921-8 Pending 04/05/2017 Visit Plan: Patient admits that [...] scale given 06/20/2016 Appointment: Galina Smith WPtel: [address] [place], [place] [phone] 06/16 lm-sp 06/20 lm ~sl FOLLOW UP 06/20/2016 Patient Education: Patient Medication Summary Completed 06/20/2016 Patient Education: Patient Medication Summary Completed 05/04/2016 Care Plan: COMPREHEN METABOLIC PANEL [place]AMITA NC : 04609-5 Pending 05/04/2016 Care Plan: CBC Pending 05/04/2016 Care Plan: LIPID PANEL LOINC : 22857-7 Pending 05/04/2016 Care Plan: A1C HPLC LOINC : 62757-4 Pending 05/04/2016 Visit Plan: Discussed with Dr Luis stephens as above while awaiting specialist to return his call Push fluids Follow up celine if not improving 02/16/2016 Appointment: Missy Dc [address] [id number] ACUTE ILLNESS 02/16/2016 Patient Education: Patient Medication Summary Completed 02/16/2016 Visit Plan: Check CMP, TSH, HbA1C, magne sium, UA now Hydrate and monitor blood sugar Use powerade zero in conjunction with water to stay hydrated Discussed elevated blood sugar can cause cramping as well 12/03/2015 Appointment: Galina Smith WPtel: [address] [place], [place] [phone] ACUTE ILLNESS 12/03/2015 Patient Education: Patient Medication Summary Completed 12/03/2015 Visit Plan: Labs completed this am in [place] [facility] but do not have results yet. Start Lyrica 75mg PO bid Will Call in a week and let know if pain is improved. 06/24/2015 Appointment: Alejandra Billy WPtel: [address] [place] [address] ACUTE ILLNESS 06/24/2015 Patient Education: Patient Medication Summary Completed 06/24/2015 Patient Education: Lyrica - 18+ - No MA NE Completed 06/24/2015 Visit Plan: Saline nasal flushes prn. Ty lenol/Motrin prn headache. Notify if persists/symptoms worsening. Obtain most recent lab Warned of increased BS with prednisone--has sliding scale to use 06/11/2015 Appointment: Galina Smith WPtel: [address] [place], [place] [phone] 06/10/15 cn....06/10/15 appt confirmed cn Cara ual Well Visit 06/11/2015 Patient Education: Patient Medication Summary Completed 06/11/2015 Appointment: Galina Smith WPtel: [address] [place], [place] [phone] FOLLOW UP 10/15/2014 Patient Education: Patient Medication Summary Completed 09/03/2014 Care Plan: COMPREHEN METABOLIC PANEL [place]AMITA NC : 39488-8 Ordered 09/03/2014 Visit Plan: Obtain most recent lab resul ts Will likely need HbA1C and Lipids if were not done Accuchecks q AC and HS 07/17/2014 Appointment: Galina Smith WPtel: [address] [place], [place] [phone] [place] FOLLOW UP 07/17/2014 Patient Education: Patient Medication Summary Completed 07/17/2014 Appointment: Galina Smith WPtel: [address] [place], [place] [phone] 01/29 01/30 NO SHOW FOLLOW UP 01/30/2014 Visit Plan: Check CMP, HbA1C, CBC, Lipid s Pt sees transplant doctor next month Pt is currently just using insulin prn and monitering BS 10/31/2013 Appointment: Galina Smith WPtel: [address] [place], [place] [phone] FOLLOW UP 10/31/2013 Patient Education: Patient Medication Summary Completed 10/31/2013 Visit Plan: Continue current meds and ac uchecks 08/01/2013 Appointment: Galina Smith WPtel: [address] [place] [address] 07/31 FOLLOW UP 08/01/2013 Patient Education: Patient Medication Summary Completed 08/01/2013 Appointment: Alejandra Billy WPtel: [address] [place] [address] ACUTE ILLNESS 07/30/2013 Patient Education: Patient Medication Summary Completed 07/30/2013 Visit Plan: Restart Diovan--pt says need s PA Continue fluoxetine at 20mg daily 05/30/2013 Appointment: Galina Smith WPtel: [address] [place] [address] FOLLOW UP 05/30/2013 Patient Education: Patient Medication Summary Completed 05/30/2013 Appointment: Galina Smith WPtel: [address] [place] [address] [place] has appt following day FOLLOW UP 3 Visit Plan: Restart Diovan and Amlodopin e as has been out--new rx sent out Trial of Fluoxetine 20mg q AM Stress Reducers 04/29/2013 Appointment: Galina Smith WPtel: [address] [place] [address] 04/26 MOM made appt. confirmed monday ACUTE ILL NESS 04/29/2013 Patient Education: Patient Medication Summary Completed 04/29/2013 Visit Plan: Continue current meds and ac cuchecks Pt going for fasting lab next month 02/27/2013 Appointment: Galina Smith WPtel: [address] [place], [place] [phone] FOLLOW UP 02/27/2013 Patient Education: Patient Medication Summary Completed 02/27/2013 Appointment: Viky Acosta WPtel: [address] [place], [place] [phone] ACUTE ILLNESS 01/01/2013 Patient Education: Patient Medication Summary Completed 01/01/2013 Visit Plan: Continue current meds Check fasting lab next week 11/27/2012 Appointment: Galina Smith WPtel: [address] [place], [place] [phone] FOLLOW UP 11/27/2012 Patient Education: Patient Medication Summary Completed 11/27/2012 Visit Plan: Lab discussed Continue curre nt meds and accuchecks Pt sees transplant doctor in in October Check fasting lab and fwup in 3mos 08/28/2012 Appointment: Galina Smith WPtel: [address] [place], [place] [phone] 08/27 vm FOLLOW UP 08/28/2012 Patient Education: Patient Medication Summary Completed 08/28/2012 Appointment: Galina Smith WPtel: [address] [place], [place] [phone] US LAB 08/20/2012 Patient Education: Patient Medication Summary Completed 08/20/2012 Visit Plan: Continue levemir at current dose with accuchecks Use apidra with sliding scale Check Chem 7 and HbA1C in 2mos 07/03/2012 Appointment: Galina Smith WPtel: [address] [place], [place] [phone] 07/02 vm FOLLOW UP 07/03/2012 Patient Education: Patient Medication [...] 320mg daily 06/21/2012 Appointment: Galina Smith WPtel: [address] [place] [address] ACUTE ILLNESS 06/21/2012 Patient Education: Patient Medication Summary Completed 06/21/2012 Visit Plan: Increase Levemir to 75 u sc q PM Continue sliding scale insulin with accuchecks q AC and HS Call in 1wk with BS readings 05/30/2012 Appointment: Galina Smith WPtel: [address] [place] [address] Hospital Follow Up 05/30/2012 Patient Education: Patient Medication Summary Completed 05/30/2012 Appointment: Galina Smith WPtel: [address] [place] [address] 05/21 - cancelled appointment for 05/22 because PT was worke d in on 05/21 FOLLOW UP 05/22/2012 Appointment: Galina Smith WPtel: [address] [place] [address] WORK IN 05/21/2012 Appointment: Galina Smith WPtel: [address] [place] [address] LAB 05/21/2012 Patient Education: Patient Medication Summary Completed 05/21/2012 Visit Plan: Continue current meds Obtain most recent lab done at [facility] 01/24/2012 Appointment: Galina Smith WPtel: [address] [place] [address] voicemail FOLLOW UP 01/24/2012 Patient Education: Patient Medication Summary Completed 01/24/2012 Visit Plan: Decrease Norvasc to 2.5mg da anne marie Check CBC, CMP, TSH, Free T4 09/21/2011 Appointment: Galina Smith WPtel: [address] [place] [address] ACUTE ILLNESS 09/21/2011 Patient Education: Patient Medication Summary Completed 09/21/2011 Visit Plan: Continue Diovan at current d ose Add amlodopine Check Lipids/LFTs with next lab 09/12/2011 Appointment: Galina Smith WPtel: [address] [place], [place] [phone] FOLLOW UP 09/12/2011 Patient Education: Patient Medication Summary Completed 09/12/2011 Visit Plan: Increase Diovan to 320mg po daily Check TSH and Free T4 with kidney lab next week 06/14/2011 Appointment: Galina Smith WPtel: [address] [place], [place] [phone] FOLLOW UP 06/14/2011 Patient Education: Patient Medication Summary Completed 06/14/2011 Visit Plan: Z-pack then new toothebrush Start Diovan 03/03/2011 Appointment: Galina Smith WPtel: [address] [place] [address] ACUTE ILLNESS 03/03/2011 Patient Education: Patient Medication Summary Completed 03/03/2011 Appointment: Galina Smith WPtel: [address] [place] [address] FOLLOW UP 01/27/2011 Patient Education: Patient Medication Summary Completed 01/27/2011 Visit Plan: Continue current meds and pr oceed with lab per kidney transplant doctor Start Synthroid at 50mcg po daily 12/02/2010 Appointment: Galina Smith WPtel: [address] [place], [place] [phone] FOLLOW UP 12/02/2010 Patient Education: Patient Medication Summary Completed 12/02/2010 Appointment: Galina Smith WPtel: [address] [place], [place] [phone] Suture Removal 10/20/2009 Patient Education: Patient Medication Summary Completed 10/20/2009 Referral: Rudolph Núñez WPtel: [phone] [id number] [place] Referral Initiated Instructions Comment . Patient [...] well . Labs completed this am in [facility] do not have results yet. Start Lyrica [...] meds Obtain most recent lab done at [facility] . Decrease Norvasc to 2.5mg [...]
--- OUTSIDE RECORDS SUMMARY | 2019-08-21 00:14 | XMS REPORT | CCD ---
Author Author Cuauhtemoc Smith D.O. Organization [facility] Address [address] [place] [address] Phone Care Team Providers Care Crayon Sorting Machine Feeder Name Role Phone Galina Smith D.O., PP Unavailable CCM Unavailable Summary Purpose Interface Exchange Insurance Providers Payer name Policy type / Coverage type Covered democrat ID Effective Begin Date Effective End Date Blue Cross Blue Shield Blue Cross/Bl ue Shield [id number] 2017 Un known Family History Family History data not found Social History Social History Element Codes Description Effective Dates Tobacco history SNOMED CT: 405998537 Currently uses smokeless tobacco 06/14/2011 Allergies, Adverse Reactions, Alerts Substance Reaction Codes Entered Date Inactivated Date Status * NO KNOWN ENVIRONME NTAL ALLERGIES Unknown 12/02/2010 No Inactive Date Active * NO KNOWN FOOD JC RGIES Unknown 12/02/2010 No Inactive Date Active * NO KNOWN DRUG JC RGIES Unknown 12/02/2010 No Inactive Date Active Past Medical History Illness Codes Condition Status Onset Date Resolved Date Chronic kidney disea se, stage 3 (moderate) ICD-9: 585.3 ICD-10: N18.3 Active 02/26/2019 Unknown 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, 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 ICD-10: E10.9 Active 06/19/2016 Unknown Essential (primary) hypertension ICD-9: 401.9 ICD-10: I10 Active 10/31/[address] atus ICD-9: V42.0 ICD-10: Z94.0 Active 08/24/2018 Unknown Mixed hyperlipidemia ICD-9: 272.4 ICD-10: E78.2 Active 07/17/2014 Unknown Other specified hypo thyroidism ICD-9: 244.9 ICD-10: E03.8 Active 02/19/2019 Unknown Encounter for afterc are following other organ transplant ICD-9: V58.44 ICD-10: Z48.298 Active 08/24/2018 Unknown Other termination clerk (cur rent) drug therapy ICD-9: V58.69 ICD-10: Z79.899 Active 08/24/2018 Unknown 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 Active 08/24/2018 Unknown Type 2 diabetes sol itus with hyperglycemia ICD-9: 250.02 ICD-10: E11.65 Active 05/30/2012 Unknown 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 ICD-9: 250.80 ICD-10: E11.59 Active 04/05/2017 Unknown Type 2 diabetes sol itus with diabetic neuropathy, unspecified ICD-9: 250.60 ICD-10: E11.40 Active 06/23/2015 Unknown Epigastric pain ICD-9: 789.06 ICD-10: R10.13 Active 06/26/2018 Unknown Slow transit constip ation ICD-9: 564.01 ICD-10: K59.01 Active 06/26/2018 Unknown Right lower quadrant pain ICD-9: 789.03 ICD-10: R10.31 Active 02/06/2018 Unknown Abrasion of right reaves nd, initial encounter ICD-9: 914.0 ICD-10: S60.511A Active 07/27/2017 Unknown Encounter for genera l adult medical examination with abnormal findings ICD-9: V70.0 ICD-10: Z00.01 Active 07/27/2017 Unknown Tinea pedis ICD-9: 110.4 ICD-10: B35.3 Active 04/05/2017 Unknown Urinary tract infect ion, site not specified ICD-9: 599.0 ICD-10: N39.0 Active 02/15/2016 Unknown Cramp and spasm ICD-9: 729.82 ICD-10: R25.2 Active 12/02/2015 Unknown Hematuria, unspecified ICD-9: 599.70 ICD-10: R31.9 Active 07/30/2013 Unknown Acute sinusitis, uns pecified ICD-9: 461.9 ICD-10: J01.90 Active 06/11/2015 Unknown Otitis media, unspec ified, bilateral ICD-9: 382.9 ICD-10: H66.93 Active 06/10/2015 Unknown 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I ICD-9: 250.00 Active Unknown HYPOTHYROIDISM ICD-9: 244.9 Active 09/03/2014 Unknown HYPERLIPIDEMIA NEC/NOS ICD-9: 272.4 Active 07/17/[address] ATUS ICD-9: V42.0 Active 10/2014 Unknown 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 ICD-9: 250.01 Active Unknown HYPERTENSION ICD-9: 401.9 Active 10/31/2013 Unknown Abdominal pain, acut e, right lower quadrant ICD-9: 789.03 Active 07/30/2013 Unknown HEMATURIA NOS ICD-9: 599.70 Active 07/30/2013 Unknown Anticipatory grieving ICD-9: 309.0 Active 04/29/2013 Unknown ONYCHOMYCOSIS ICD-9: 110.1 Active 01/01/2013 Unknown Paronychia ICD-9: 681.9 Active 01/01/2013 Unknow n 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I, UNCONTROLLED ICD-9: 250.02 Active 05/30/2012 Unknown VISUAL DISTURBANCE ICD- 9: 368.9 Active 05/21/2012 Unknown DIZZINESS/VERTIGO ICD-9: 780.4 Active 09/21/2011 Unknown CEPHALGIA ICD-9: 784.0 Active 06/14/2011 Unknow n PHARYNGITIS, ACUTE ICD- 9: 462 Active 03/03/2011 Unknown Hypertension Unknown Active 01/27/2011 Unknow n SINUSITIS, ACUTE ICD-9: 461.9 Active 01/27/2011 Unknown Hyperlipidemia Unknown Active 12/02/2010 Unknow n Kidney disease Unknown Active 12/02/2010 Unknow n Problems Condition Codes Effectiv e Dates Condition Status Chronic kidney disea se, stage 3 (moderate) ICD-9: 585.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, 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 ICD-10: E10.9 06/19/2016 Active Essential (primary) hypertension ICD-9: 401.9 ICD-10: I10 10/31/[address] atus ICD-9: V42.0 ICD-10: Z94.0 08/24/2018 Active Mixed hyperlipidemia ICD-9: 272.4 ICD-10: E78.2 07/17/2014 Active Other specified hypo thyroidism ICD-9: 244.9 ICD-10: E03.8 02/19/2019 Active Encounter for afterc are following other organ transplant ICD-9: V58.44 ICD-10: Z48.298 08/24/2018 Active Other termination clerk (cur rent) drug therapy ICD-9: V58.69 ICD-10: Z79.899 08/24/2018 Active 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 08/24/2018 Active Type 2 diabetes sol itus with hyperglycemia ICD-9: 250.02 ICD-10: E11.65 05/30/2012 Active 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 ICD-9: 250.80 ICD-10: E11.59 04/05/2017 Active Type 2 diabetes sol itus with diabetic neuropathy, unspecified ICD-9: 250.60 ICD-10: E11.40 06/23/2015 Active Epigastric pain ICD-9: 789.06 ICD-10: R10.13 06/26/2018 Active Slow transit constip ation ICD-9: 564.01 ICD-10: K59.01 06/26/2018 Active Right lower quadrant pain ICD-9: 789.03 ICD-10: R10.31 02/06/2018 Active Abrasion of right reaves nd, initial encounter ICD-9: 914.0 ICD-10: S60.511A 07/27/2017 Active Encounter for genera l adult medical examination with abnormal findings ICD-9: V70.0 ICD-10: Z00.01 07/27/2017 Active Tinea pedis ICD-9: 110.4 ICD-10: B35.3 04/05/2017 Active Urinary tract infect ion, site not specified ICD-9: 599.0 ICD-10: N39.0 02/15/2016 Active Cramp and spasm ICD-9: 729.82 ICD-10: R25.2 12/02/2015 Active Hematuria, unspecified ICD-9: 599.70 ICD-10: R31.9 07/30/2013 Active Acute sinusitis, uns pecified ICD-9: 461.9 ICD-10: J01.90 06/11/2015 Active Otitis media, unspec ified, bilateral ICD-9: 382.9 ICD-10: H66.93 06/10/2015 Active 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I ICD-9: 250.00 09/03/2014 Active HYPOTHYROIDISM ICD-9: 244.9 09/03/2014 Active HYPERLIPIDEMIA NEC/NOS ICD-9: 272.4 07/17/[address] ATUS ICD-9: V42.0 07/17/2014 Active 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 ICD-9: 250.01 10/31/2013 Active HYPERTENSION ICD-9: 401.9 10/31/2013 Active Abdominal pain, acut e, right lower quadrant ICD-9: 789.03 07/30/2013 Active HEMATURIA NOS ICD-9: 599.70 07/30/2013 Active Anticipatory grieving ICD-9: 309.0 04/29/2013 Active ONYCHOMYCOSIS ICD-9: 110.1 01/01/2013 Active Paronychia ICD-9: 681.9 01/01/2013 Active 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I, UNCONTROLLED ICD-9: 250.02 05/30/2012 Active VISUAL DISTURBANCE ICD- 9: 368.9 05/21/2012 Active DIZZINESS/VERTIGO ICD-9: 780.4 09/21/2011 Active CEPHALGIA ICD-9: 784.0 06/14/2011 Active PHARYNGITIS, ACUTE ICD- 9: 462 03/03/2011 Active Hypertension Unknown 01/27/2011 Active SINUSITIS, ACUTE ICD-9: 461.9 01/27/2011 Active Hyperlipidemia Unknown 12/02/2010 Active Kidney disease Unknown 12/02/2010 Active Medications Medication Codes Instruc tions Start Date Stop Date Sta tus Fill Instructions amlodipine 5 mg tablet RxNorm: 866299 1 Tablet(s) PO QD for BP 02/26/2019 08/24/2019 Active atorvastatin 80 mg t ablet RxNorm: 161574 1 Tablet(s) PO QD 02/26/2019 05/26/2019 Active Novolog Flexpen U-10 0 Insulin aspart 100 unit/mL (3 mL) subcutaneous RxNorm: 8942844 INJECT SUBCUTANEOUSLY NEEDED PER SLIDING SCALE 02/22/2019 No Stop Date Active Levemir FlexTouch U- 100 Insulin 100 unit/mL (3 mL) subcutaneous pen RxNorm: 235568 90 Unit(s) SQ BID 01/08/2019 04/07/2019 Active Levemir FlexTouch U- 100 Insulin 100 unit/mL (3 mL) subcutaneous pen RxNorm: 515109 90 Unit(s) SQ BID 12/04/2018 12/03/2018 Inactive Levemir FlexTouch U- 100 Insulin 100 unit/mL (3 mL) subcutaneous pen RxNorm: 689260 90 Unit(s) SQ BID 12/04/2018 01/07/2019 Inactive Levemir FlexTouch U- 100 Insulin 100 unit/mL (3 mL) subcutaneous pen RxNorm: 876773 70 Unit(s) SQ BID 10/26/2018 12/04/2018 Inactive Levemir FlexTouch U- 100 Insulin 100 unit/mL (3 mL) subcutaneous pen RxNorm: 576425 GIVE 90 UNITS SUBCUTANEOUSLY TWICE DAILY 10/08/2018 10/26/2018 Inactive Levemir FlexTouch U- 100 Insulin 100 unit/mL (3 mL) subcutaneous pen RxNorm: 243603 90 Unit(s) SQ BID 07/30/2018 10/07/2018 Inactive Levemir FlexTouch U- 100 Insulin 100 unit/mL (3 mL) subcutaneous pen RxNorm: 015264 90 Unit(s) SQ BID 07/06/2018 07/29/2018 Inactive Pen Needle 31 gauge x 5/16" RxNorm: USE DIRECTED 03/21/2018 No Stop Date Active Levemir FlexTouch U- 100 Insulin 100 unit/mL (3 mL) subcutaneous pen RxNorm: 765656 80 Unit(s) SQ BID 02/15/2018 07/06/2018 Inactive Levemir FlexTouch U- 100 Insulin 100 unit/mL (3 mL) subcutaneous pen RxNorm: 735342 INJECT 105 UNITS SUBCUTANEOUSLY IN THE EVENING 01/24/2018 02/15/2018 Inactive Levemir FlexTouch U- 100 Insulin 100 unit/mL (3 mL) subcutaneous pen RxNorm: 392448 INJECT 105 UNITS SUBCUTANEOUSLY IN THE EVENING 12/26/2017 01/23/2018 Inactive Novolog Flexpen U-10 0 Insulin aspart 100 unit/mL (3 mL) subcutaneous RxNorm: 6497760 INJECT SUBCUTANEOUSLY NEEDED PER SLIDING SCALE 12/25/2017 02/21/2019 Inactive Levemir FlexTouch U- 100 Insulin 100 unit/mL (3 mL) subcutaneous pen RxNorm: 936020 70 Unit(s) SQ BID 11/03/2017 11/03/2017 Inactive Levemir FlexTouch U- 100 Insulin 100 unit/mL (3 mL) subcutaneous pen RxNorm: 840499 105 Unit(s) SQ QPM 11/02/2017 11/02/2017 Inactive Levemir FlexTouch U- 100 Insulin 100 unit/mL (3 mL) subcutaneous pen RxNorm: 058032 105 Unit(s) SQ QPM Needs updated labs 11/01/2017 11/01/2017 Inactive Levemir FlexTouch U- 100 Insulin 100 unit/mL (3 mL) subcutaneous pen RxNorm: 868715 Unit(s) 105 Unit(s) SQ QPM 09/18/2017 09/18/2017 Inactive Levemir FlexTouch U- 100 Insulin 100 unit/mL (3 mL) subcutaneous pen RxNorm: 449280 105 Unit(s) SQ QPM 08/07/2017 09/18/2017 Inactive cephalexin 500 mg ca psule RxNorm: 890391 1 Capsule(s) PO BID 07/27/2017 08/02/2017 Inactive Levemir FlexTouch U- 100 Insulin 100 unit/mL (3 mL) subcutaneous pen RxNorm: 702385 105 Unit(s) SQ QPM 06/07/2017 06/07/2017 Inactive Levemir FlexTouch 10 0 unit/mL (3 mL) subcutaneous insulin pen RxNorm: 228911 105 Unit(s) SQ QPM 05/11/2017 06/07/2017 Inactive Lipitor 40 mg tablet RxNorm: 016993 1 Tablet(s) PO QD 04/05/2017 04/04/2017 Inactive nystatin 100,000 uni t/gram topical ointment RxNorm: 022675 1 Gram(s) TOP BID 04/05/2017 05/02/2017 In active Lipitor 40 mg tablet RxNorm: 069166 1.5 Tablet(s) PO QD 04/05/2017 02/25/2019 Inactive Diovan 320 mg tablet RxNorm: 004889 1 Tablet(s) PO QD 04/05/2017 02/25/2019 Inactive Levemir FlexTouch 10 0 unit/mL (3 mL) subcutaneous insulin pen RxNorm: 547390 105 Unit(s) SQ QPM 04/05/2017 04/05/2017 Inactive Levemir FlexTouch 10 0 unit/mL (3 mL) subcutaneous insulin pen RxNorm: 272063 90 Unit(s) SQ QPM LAST REFILL UNTIL LABS AND APPOINTMENT!!!! 04/05/2017 05/11/2017 Inactive Novolog Flexpen 100 unit/mL subcutaneous RxNorm: 1497973 Unit(s) INJECT SUBCU TANEOUSLY NEEDED PER SLIDING SCALE---NEEDS UPDATED LABS 03/07/2017 12/03/2018 Inactive Levemir FlexTouch 10 0 unit/mL (3 mL) subcutaneous insulin pen RxNorm: 770983 90 Unit(s) SQ QPM LAST REFILL UNTIL LABS AND APPOINTMENT!!!! 02/17/2017 03/18/2017 Inactive Levemir FlexTouch 10 0 unit/mL (3 mL) subcutaneous insulin pen RxNorm: 696200 90 Unit(s) SQ QPM NEEDS FASTING LABS AND APPOINTMENT BEFORE FURTHER REFILLS 12/22/2016 02/17/2017 In active Novolog Flexpen U-10 0 Insulin aspart 100 unit/mL subcutaneous RxNorm: 0697667 Unit(s) INJECT SUBCUTANEOUSLY NEEDED PER SLIDING SCALE---NEEDS UPDATED LABS 11/28/2016 03/07/2017 Inactive Levemir FlexTouch 10 0 unit/mL (3 mL) subcutaneous insulin pen RxNorm: 847598 90 Unit(s) VAG QPM 11/08/2016 12/22/2016 Inactive Levemir FlexTouch 10 0 unit/mL (3 mL) subcutaneous insulin pen RxNorm: 075794 90 Unit(s) VAG QPM 11/08/2016 12/21/2016 Inactive Levemir FlexTouch 10 0 unit/mL (3 mL) subcutaneous insulin pen RxNorm: 490849 80 Unit(s) VAG QPM 09/05/2016 11/08/2016 Inactive Levemir FlexTouch 10 0 unit/mL (3 mL) subcutaneous insulin pen RxNorm: 798433 85 Unit(s) SQ QD 07/22/2016 09/05/2016 Inactive Levemir FlexTouch 10 0 unit/mL (3 mL) subcutaneous insulin pen RxNorm: 977809 85 Unit(s) SQ QD 07/04/2016 07/21/2016 Inactive Levemir FlexTouch 10 0 unit/mL (3 mL) subcutaneous insulin pen RxNorm: 776126 85 Unit(s) SQ QD 06/14/2016 06/19/2016 Inactive Levemir FlexTouch 10 0 unit/mL (3 mL) subcutaneous insulin pen RxNorm: 050022 85 Unit(s) SQ QD 05/03/2016 05/22/2016 Inactive Levemir FlexTouch 10 0 unit/mL (3 mL) subcutaneous insulin pen RxNorm: 328041 85 Unit(s) SQ QD 05/03/2016 05/02/2016 Inactive Levemir FlexTouch 10 0 unit/mL (3 mL) subcutaneous insulin pen RxNorm: 421806 85 Unit(s) SQ QD 03/14/2016 04/22/2016 Inactive cefuroxime axetil 25 0 mg tablet RxNorm: 023339 1 Tablet(s) PO BID 02/16/2016 02/25/2016 Inactive Levemir FlexTouch 10 0 unit/mL (3 mL) subcutaneous insulin pen RxNorm: 300322 85 Unit(s) SQ QD 02/03/2016 03/13/2016 Inactive Levemir FlexTouch 10 0 unit/mL (3 mL) subcutaneous insulin pen RxNorm: 691583 85 Unit(s) SQ QD 12/07/2015 02/02/2016 Inactive Pen Needle 31 gauge x 5/16" RxNorm: USE DIRECTED 11/19/2015 05/16/2016 Inactive Levemir FlexTouch 10 0 unit/mL (3 mL) subcutaneous insulin pen RxNorm: 056020 INJECT 75 UNITS SUBCUTANEOUSLY ONCE DAILY; NEED LABS AND APPT 10/06/2015 12/04/2015 Inactive Novolog Flexpen 100 unit/mL subcutaneous RxNorm: 3640501 INJECT SUBCUTANEOUSL Y NEEDED PER SLIDING SCALE 09/15/2015 11/28/2016 Inactive Levemir FlexTouch 10 0 unit/mL (3 mL) subcutaneous insulin pen RxNorm: 774821 75 Unit(s) SQ QD Needs lab and appointment 07/13/2015 10/05/2015 Inactive Lyrica 75 mg capsule RxNorm: 286938 1 Capsule(s) PO BID 06/24/2015 07/23/2015 Inactive Levemir FlexTouch 10 0 unit/mL (3 mL) subcutaneous insulin pen RxNorm: 237744 75 Unit(s) SQ QD Needs lab and appointment 06/23/2015 07/12/2015 Inactive Novolog Flexpen 100 unit/mL subcutaneous RxNorm: 1577526 Unit(s) SQ as needed Sliding scale 06/15/2015 09/14/2015 Inactive Flonase Allergy Reli ef 50 mcg/actuation nasal spray,suspension RxNorm: 2 Cadet NASAL QHS 06/11/2015 12/02/2015 Inactive prednisone 20 mg tablet RxNorm: 085115 1 Tablet(s) PO TID for 3 days then 1 po BID for 3 days then one daily for 3 days 06/11/2015 12/02/2015 Inactive cefdinir 300 mg capsule RxNorm: 373276 2 Capsule(s) PO QD 06/11/2015 06/24/2015 Inactive Levemir FlexTouch 10 0 unit/mL (3 mL) subcutaneous insulin pen RxNorm: 299248 75 Unit(s) SQ QD Needs lab and appointment 05/29/2015 06/22/2015 Inactive Novolog 100 unit/mL subcutaneous solution RxNorm: 268315 Unit(s) SQ Inject as directed using sliding scale B 05/29/2015 12/03/2018 Inactive Levemir Flexpen 100 unit/mL (3 mL) solution subcutaneous insulin pen RxNorm: 101601 INJECT 75 UNITS SUBCUTANEOUSLY EVERY DAY 05/11/2015 05/29/2015 Inactive Levemir FlexTouch 10 0 unit/mL (3 mL) subcutaneous insulin pen RxNorm: 178471 75 Unit(s) SQ QHS 03/30/2015 12/03/2018 Inactive Levemir FlexTouch 10 0 unit/mL (3 mL) subcutaneous insulin pen RxNorm: 227182 75 Unit(s) SQ QHS 03/09/2015 03/29/2015 Inactive Contour Test Strips RxNorm: Miscellaneous 01/27/2015 No Stop Date Active Novolog 100 unit/mL subcutaneous solution RxNorm: 705918 Unit(s) SQ Inject as directed using sliding scale B 01/27/2015 05/29/2015 Inactive Levemir Flexpen 100 unit/mL (3 mL) solution subcutaneous insulin pen RxNorm: 007665 INJECT 75 UNITS SUBCUTANEOUSLY EVERY DAY 11/05/2014 03/09/2015 Inactive Levemir Flexpen 100 unit/mL (3 mL) solution subcutaneous insulin pen RxNorm: 523566 INJECT 75 UNITS SUBCUTANEOUSLY EVERY DAY 08/13/2014 10/31/2014 Inactive Novolog 100 unit/mL subcutaneous solution RxNorm: 269511 Unit(s) SQ Inject as directed using sliding scale B 07/15/2014 01/26/2015 Inactive Apidra SoloStar 100 unit/mL subcutaneous insulin pen RxNorm: 702896 Unit(s) SQ INJECT DIRECTED USING SLIDING SCALE B 07/11/2014 07/14/2014 Inactive Diovan 320 mg tablet RxNorm: 207995 1 Tablet(s) PO QD 06/10/2014 06/04/2015 Inactive Apidra SoloStar 100 unit/mL subcutaneous insulin pen RxNorm: 596213 Unit(s) SQ INJECT DIRECTED USING SLIDING SCALE B 04/18/2014 07/10/2014 Inactive Levemir Flexpen 100 unit/mL (3 mL) solution subcutaneous insulin pen RxNorm: 720254 Unit(s) SQ INJECT 75 UNITS SUBCUTANEOUSLY EVERY DAY 02/28/2014 02/27/2014 Inactive [SAVINGS FOR UNINSURED PATIENTS -- BIN:[id number], PCN: [id number], Group: [facility], ID# [id number], Process claim through [employer], for questions: . THIS IS NOT INSURANCE.] Apidra SoloStar 100 unit/mL subcutaneous insulin pen RxNorm: 563076 Unit(s) SQ INJECT DIRECTED USING SLIDING SCALE B 09/05/2013 04/17/2014 Inactive Pen Needle 31 gauge x 5/16" RxNorm: Miscellaneous USE DIRECT ED WITH LEVEMIR AND APIDRA 08/23/2013 11/18/2015 Inactive Prograf 1 mg capsule RxNorm: 156215 2 Capsule(s) PO BID Generic OK to fill 08/21/2013 No Stop Date Active Diovan 320 mg tablet RxNorm: 593940 1 Tablet(s) PO QD 05/30/2013 05/24/2014 Inactive fluoxetine 20 mg tablet RxNorm: 924931 1 Tablet(s) PO QAM 05/30/2013 07/31/2013 Inactive fluoxetine 20 mg tablet RxNorm: 455011 1 Tablet(s) PO QAM 04/29/2013 05/29/2013 Inactive amlodipine 5 mg tablet RxNorm: 567710 1 Tablet(s) PO QD 04/29/2013 02/25/2019 Inactive ketoconazole 2 % top ical cream RxNorm: 576938 Application TOP BID f or 2-4wks 04/29/2013 05/12/2013 In active Diovan 320 mg tablet RxNorm: 635527 1 Tablet(s) PO QD 04/29/2013 06/10/2014 Inactive Apidra SoloStar 100 unit/mL subcutaneous insulin pen RxNorm: 891483 Unit(s) SQ Sliding Scale B 02/19/2013 09/05/2013 Inactive Levemir Flexpen 100 unit/mL (3 mL) solution subcutaneous insulin pen RxNorm: 560073 Insulin Pen SQ INJECT 75 UNITS SUBCUTANEOUSLY EVERY DA Y 01/21/2013 02/28/2014 Inactive Septra DS 800 mg-160 mg tablet RxNorm: 324146 1 Tablet(s) PO BID an tibiotic 01/01/2013 01/07/2013 In active ketoconazole 2 % top ical cream RxNorm: 380475 1 Application TOP BID 01/01/2013 01/14/2013 Inactive Levemir Flexpen 100 unit/mL (3 mL) Sub-Q Insulin Pen RxNorm: 655597 Unit(s) SQ INJECT 75 UNITS SUB-Q ONCE A DAY 12/07/2012 No Stop Date Active Levemir Flexpen 100 unit/mL (3 mL) Sub-Q Insulin Pen RxNorm: 834956 Unit(s) SQ INJECT 75 UNITS SUB-Q ONCE A DAY 10/22/2012 12/07/2012 Inactive Levemir Flexpen 100 unit/mL (3 mL) Sub-Q Insulin Pen RxNorm: 979374 75 Unit(s) SQ QHS 08/20/2012 10/22/2012 Inactive Diovan 320 mg tablet RxNorm: 623017 1 Tablet(s) PO QD 07/30/2012 04/28/2013 Inactive Levemir Flexpen 100 unit/mL (3 mL) Sub-Q Insulin Pen RxNorm: 638882 Insulin Pen SQ INJECT 75 UNITS SUB-Q ONCE A DAY 07/30/2012 10/21/2012 Inactive Levemir Flexpen 100 unit/mL (3 mL) Sub-Q Insulin Pen RxNorm: 229626 75 Unit(s) SQ QHS 07/30/2012 08/19/2012 Inactive Levemir Flexpen 100 unit/mL (3 mL) Sub-Q Insulin Pen RxNorm: 383860 75 Unit(s) SQ QHS 07/30/2012 07/29/2012 Inactive Diovan 320 mg tablet RxNorm: 796972 1 Tablet(s) PO QD 06/21/2012 06/20/2012 Inactive Diovan 320 mg tablet RxNorm: 594613 1 Tablet(s) PO QD 06/21/2012 06/20/2012 Inactive Diovan 320 mg tablet RxNorm: 549810 1 Tablet(s) PO QD 06/21/2012 07/29/2012 Inactive CellCept 250 mg capsule RxNorm: 285548 4 Capsule(s) PO BID 06/14/2012 06/20/2012 Inactive Prograf 1 mg capsule RxNorm: 503097 2 Capsule(s) PO BID Generic OK to fill 06/14/2012 06/20/2012 In active Apidra SoloStar 100 unit/mL Sub-Q Insulin Pen RxNorm: 922118 Unit(s) SQ Sliding Sc supriya B 06/13/2012 12/03/2018 Inactive Levemir Flexpen 100 unit/mL (3 mL) Sub-Q Insulin Pen RxNorm: 310437 75 Unit(s) SQ QD 06/13/2012 No Stop Date Active Apidra SoloStar 100 unit/mL Sub-Q Insulin Pen RxNorm: 750896 Unit(s) SQ Sliding Sc supriya B 06/13/2012 No Stop Date Active One Touch Delica Adeel cets RxNorm: Miscellaneous 0 06/13/2012 04/04/2017 Inactive Lipitor 40 mg tablet RxNorm: 919864 1 Tablet(s) PO QD 05/30/2012 08/27/2012 Inactive Diovan 320 mg tablet RxNorm: 449374 1 Tablet(s) PO QD 05/30/2012 06/20/2012 Inactive Tricor 145 mg tablet RxNorm: 455697 1 Tablet(s) PO QD 05/30/2012 08/27/2012 Inactive Lipitor 20 mg Tab RxNorm: 687636 1 Tablet(s) PO QD 09/12/2011 05/29/2012 Inactive Synthroid 50 mcg Tab RxNorm: 935003 1 Tablet(s) PO QD 09/12/2011 12/02/2015 Inactive Diovan 320 mg tablet RxNorm: 653414 1 Tablet(s) PO QD 09/12/2011 03/09/2012 Inactive amlodipine 5 mg tablet RxNorm: 980846 1 Tablet(s) PO QD 09/12/2011 03/09/2012 Inactive Diovan 320 mg Tab RxNorm: 830272 1 Tablet(s) PO QD 06/14/2011 09/11/2011 Inactive Diovan 160 mg Tab RxNorm: 000115 1 Tablet(s) PO QD 03/03/2011 06/13/2011 Inactive cefdinir 300 mg Cap RxNorm: 107976 2 Capsule(s) PO QD 01/27/2011 02/05/2011 Inactive Synthroid 50 mcg Tab RxNorm: 453984 1 Tablet(s) PO QD 12/02/2010 01/30/2011 Inactive Multivitamin & [place] al Formula Tab RxNorm: 1 Tablet(s) PO QD No Start Date Active Miralax 17 gram/dose oral powder RxNorm: 060466 PO BID in 6-8 ounces of water No Start Date Active Tylenol Extra Streng th 500 mg tablet RxNorm: 416147 Tablet(s) PO as neede d No Start Date Active pantoprazole 40 mg t ablet,delayed release RxNorm: 128669 1 Tablet(s) PO QD No Start Date Active Tricor Oral RxNorm: Oral No Start Date 05/29 Inactive MagOx 400 mg tablet RxNorm: 757099 1 Tablet(s) PO QD No Start Date 06/19/2016 Inactive sodium bicarbonate Oral RxNorm: Oral No Start Date 06/19/2016 Inactive Fish Oil 1,000 mg ca psule RxNorm: 1 Capsule(s) PO QD No Start Date 04/04/2017 Inactive Novofine Misc RxNorm: Miscellaneous No Start Date 06/12/2012 Inactive Percocet 5 mg-325 mg tablet RxNorm: 7174315 Tablet(s) PO as need ed Dr Parson No Start Date 04/04/2017 Inactive Contour Test Strips RxNorm: miscellaneous No Start Date 01/26/2015 Inactive Prograf 1 mg capsule RxNorm: 397979 2 Capsule(s) PO BID No Start Date 06/13/2012 Inactive Zantac 150 mg Tab RxNorm: 185221 Tablet(s) PO PRN No Start Date 12/02/2015 Inactive Levemir FlexTouch 10 0 unit/mL (3 mL) subcutaneous insulin pen RxNorm: 869021 75 Unit(s) SQ QHS No Start Date 03/08/2015 Inactive CellCept 250 mg capsule RxNorm: 032881 4 Capsule(s) PO BID No Start Date 06/13/2012 Inactive Novolog 100 unit/mL subcutaneous solution RxNorm: 060352 Unit(s) SQ Inject as directed using sliding scale B No Start Date 07/14/2014 Inactive Novolog Flexpen 100 unit/mL subcutaneous RxNorm: 8002215 Unit(s) SQ as needed Sliding scale No Start Date 06/14/2015 Inactive Apidra SoloStar 100 unit/mL Sub-Q Insulin Pen RxNorm: 161606 Unit(s) SQ Sliding Sc supriya B No Start Date 06/12/2012 Inactive Levemir FlexTouch U- 100 Insulin 100 unit/mL (3 mL) subcutaneous pen RxNorm: 056316 70 Unit(s) SQ BID No Start Date 02/06/2018 Inactive Pen Needle 31 X 5/16" RxNorm: Miscellaneous No Start Date 08/23/2013 Inactive Synthroid 50 mcg Tab RxNorm: 067879 1 Tablet(s) PO QD No Start Date 09/11/2011 Inactive Levemir Flexpen 100 unit/mL (3 mL) Sub-Q Insulin Pen RxNorm: 174678 70 Unit(s) SQ QHS No Start Date 07/29/2012 Inactive Levemir FlexTouch U- 100 Insulin 100 unit/mL (3 mL) subcutaneous pen RxNorm: 283029 80 Unit(s) SQ BID No Start Date 02/14/2018 Inactive Levemir FlexTouch 10 0 unit/mL (3 mL) subcutaneous insulin pen RxNorm: 466914 80 Unit(s) SQ QPM No Start Date 09/04/2016 Inactive Lipitor 40 mg tablet RxNorm: 221645 1 Tablet(s) PO QD No Start Date 04/04/2017 Inactive Ultram 50 mg tablet RxNorm: 982935 2 Tablet(s) PO TID as needed for pain No Start Date 06/10/2015 Inactive Prograf 1 mg Cap RxNorm: 225237 2 Capsule(s) PO BID No Start Date 05/20/2012 Inactive insulin needles (dis posable) 32 x 5/16" RxNorm: Miscellaneous for use with flex pen No Start Date 04/04/2017 Inactive Levemir FlexTouch U- 100 Insulin 100 unit/mL (3 mL) subcutaneous pen RxNorm: 018577 90 Unit(s) SQ BID No Start Date 07/05/2018 Inactive Levemir Flexpen 100 unit/mL (3 mL) Sub-Q Insulin Pen RxNorm: 040431 65 Unit(s) SQ QD No Start Date 06/12/2012 Inactive Zithromax Z-Mateus 250 mg Tab RxNorm: 566898 Tablet(s) PO No Start Date 06/13/2011 Inactive as directed Lipitor 20 mg Tab RxNorm: 731032 1 Tablet(s) PO QD No Start Date 09/11/2011 Inactive One Touch UltraSoft Lancets RxNorm: Miscellaneous for blood sug ar testing as directed No Start Date 06/12/2012 Inactive Fish Oil 1,000 mg Cap RxNorm: 1 Capsule(s) PO QD No Start Date 12/02/2015 Inactive Medication Administered No Medication Administered data Immunizations Vaccine Codes Date Status Tetanus, Diptheria, Pertussis CVX: 115 07/27/2017 completed Assessments Condition Codes Effectiv e Dates Essential (primary) hypertension ICD -10: I10 ICD-9: 401.9 02/26/2019 Chronic kidney disease, stage 3 (moderate) ICD-10: N18.3 ICD-9: 585.3 02/26/2019 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, UNCONTROLLED ICD-10: E10.9 ICD-9: 250.03 02/26/2019 Mixed hyperlipidemia ICD-10: E78.2 ICD-9: 272.4 02/26/2019 Kidney transplant status ICD-10: Z94 .0 ICD-9: V42.0 02/26/2019 Other specified hypothyroidism ICD-1 0: E03.8 ICD-9: 244.9 02/19/2019 Encounter for aftercare following other organ transpla nt ICD- 10: Z48.298 ICD-9: V58.44 08/24/2018 Other fci (current) drug therapy ICD-10: Z79.899 ICD-9: V58.69 08/24/2018 Pancreas transplant status ICD-10: Z 94.83 ICD-9: V42.83 08/24/2018 Type 2 diabetes mellitus with diabetic n europathy, unspecified ICD-10: E11.40 ICD-9: 250.60 06/29/2018 Type 2 diabetes mellitus with hyperglycemia ICD-10: E11.65 ICD-9: 250.02 06/29/2018 Type 2 diabetes mellitus with other circulatory compli cations ICD-10: E11.59 ICD-9: 250.80 06/29/2018 Slow transit constipation ICD-10: K5 9.01 ICD-9: 564.01 06/26/2018 Epigastric pain ICD-10: R10.13 ICD-9: 789.06 06/26/2018 Right lower quadrant pain ICD-10: R1 0.31 ICD-9: 789.03 02/06/2018 Encounter for general adult medical exam ination with abnormal findings ICD-10: Z00.01 ICD-9: V70.0 07/27/2017 Abrasion of right hand, initial encounter ICD-10: S60.511A ICD-9: 914.0 07/27/2017 Tinea pedis ICD-10: B35.3 ICD-9: 110.4 04/05/2017 Urinary tract infection, site not specified ICD-10: N39.0 ICD-9: 599.0 02/16/2016 Hematuria, unspecified ICD-10: R31.9 ICD-9: 599.70 12/03/2015 Cramp and spasm ICD-10: R25.2 ICD-9: 729.82 12/03/2015 Otitis media, unspecified, bilateral ICD-10: H66.93 ICD-9: 382.9 06/11/2015 Acute sinusitis, unspecified ICD-10: J01.90 ICD-9: 461.9 06/11/2015 HYPERLIPIDEMIA NEC/NOS ICD-9: 272.4 09/03/2014 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I ICD-9: 250.00 09/03/2014 HYPOTHYROIDISM ICD-9: 244.9 09/03/2014 HYPERTENSION ICD-9: 401.9 09/03/2014 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 ICD-9: 250.01 07/17/2014 KIDNEY TRANSPLANT STATUS ICD-9: V42.0 07/17/2014 HEMATURIA NOS ICD-9: 599.70 07/30/2013 Abdominal pain, acute, right lower quadrant ICD-9: 789.03 07/30/2013 BRIEF DEPRESSIVE REACT ICD-9: 309.0 05/30/2013 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I, UNCONTROLLED ICD-9: 250.02 02/27/2013 ONYCHOMYCOSIS ICD-9: 110.1 01/01/2013 Paronychia ICD-9: 681.9 01/01/2013 VISUAL DISTURBANCE ICD-9: 368.9 05/21/2012 DIZZINESS/VERTIGO ICD-9: 780.4 09/21/2011 CEPHALGIA ICD-9: 784.0 0 06/14/2011 PHARYNGITIS, ACUTE ICD-9: 462 03/03/2011 SINUSITIS, ACUTE ICD-9: 461.9 01/27/2011 Reason For Visit Reason For Visit Effective Dates Notes follow up 02/26/2019 Pat ient needs Diovan HCT refilled lab draw 02/19/2019 lab draw 08/24/2018 lab draw 06/29/2018 constipation 06/26/2018 is going through cycles of this lately, was able to have a bm today abdominal pain 02/06/2018 follow up 11/02/2017 stephanie padron. well man exam (18-39 years) 07/27/2017 Wellness follow up 04/05/2017 Ref ill Diovan follow up 06/20/2016 blood in urine 02/16/2016 Patient had right Kidney Transplant in 2009- Patient called transplant center and is still waiting on return phone call pain, limb 12/03/2015 foot pain 06/24/2015 well man exam (18-39 years) 06/11/2015 Wellness diabetes mellitus 07/17/2014 follow up 10/31/2013 3 m onth follow up 08/01/2013 2mo fwup abdominal pain 07/30/2013 follow up 05/30/2013 1mo fwup depression 04/29/2013 Ne eds medications refilled follow up 02/27/2013 No recent labs due to work schedule toe pain due to infection 01/01/2013 follow up 11/27/2012 Doi ng labs next week follow up 08/28/2012 2mo fwup/discuss labs lab draw 08/20/2012 follow up 07/03/2012 diabetes mellitus 06/21/2012 follow up 05/30/2012 hos pital fwup vision change 05/21/2012 follow up 01/24/2012 4mo fwup--due for labs dizziness 09/21/2011 follow up 09/12/2011 3mo fwup hypothyroid 06/14/2011 high blood pressure 03/03/2011 follow up 01/27/2011 2mo fwup follow up 12/02/2010 Post-op wound 10/20/2009 dexter removal---cleansed with alcohol, removed dexter x10, tolerated well. 1 staple had already fallen out. surger 10/07/09 Results Observation Observation Code Item Item Code Result Date MICROALBUMIN URINE RANDOM 19535 U Microalbumin 2259.0 mg/L 02/26/2019 MICROALBUMIN URINE RANDOM 21171 U Creatinine 143 mg/dL 02/26/2019 MICROALBUMIN URINE RANDOM 07659 ALB/CR Ratio 1579.7 mg/gCR 02/27/20 19 MAGNESIUM 64151 MAGNESIUM 1.4 mEq/L 02/19/2019 GFR CALC 6776205 GFR Non Afr Amr 37 mL/min 02/19/2019 GFR CALC 8193679 GFR Afr Amr 45 mL/min 02/19/2019 LIPID GROUP 85680 Choles terol 250 mg/dL 02/19/2019 LIPID GROUP 30657 Trigly ceride 465 mg/dL 02/19/2019 LIPID GROUP 65396 HDL CH OLESTEROL 30 mg/dL 02/19/2019 LIPID GROUP 46809 Chol/H DL Ratio 8.33 ratio 02/19/2019 LIPID GROUP 55223 NON-HD L Chol 220 mg/dL 02/19/2019 LIPID GROUP 68201 LDL Ch olesterol N/A Trig >400 019 LIPID GROUP 22037 Fasting Unknown 02/19/2019 COMPREHENSIVE METABOLIC 95250 AST 20 U/L 02/19/2019 COMPREHENSIVE METABOLIC 98970 ALT 30 U/L 02/19/2019 COMPREHENSIVE METABOLIC 54444 BUN 27 mg/dL 02/19/2019 COMPREHENSIVE METABOLIC 77927 ALBUMIN 3.7 g/dL 02/19/2019 COMPREHENSIVE METABOLIC 85785 CHLORIDE 105 mmol/L 02/19/2019 COMPREHENSIVE METABOLIC 02309 Bili Total 0.5 mg/dL 02/19/2019 COMPREHENSIVE METABOLIC 19817 ALK PHOS 79 U/L 02/19/2019 COMPREHENSIVE METABOLIC 56366 SODIUM 137 mmol/L 02/19/2019 COMPREHENSIVE METABOLIC 15173 CREATININE 2.10 mg/dL 02/19/2019 COMPREHENSIVE METABOLIC 28092 CALCIUM 9.5 mg/dL 02/19/2019 COMPREHENSIVE METABOLIC 65038 POTASSIUM 4.2 mmol/L 02/19/2019 COMPREHENSIVE METABOLIC 54002 Total Protein 6.5 g/dL 02/19/2019 COMPREHENSIVE METABOLIC 17696 Glucose 202 mg/dL 02/19/2019 COMPREHENSIVE METABOLIC 37946 Bicarbonate 22 mmol/L 02/19/2019 COMPREHENSIVE METABOLIC 79220 AGAP 10 mmol/L 02/19/2019 LIPID GROUP 93356 Choles terol 320 mg/dL 08/27/2018 LIPID GROUP 61047 Trigly ceride 444 mg/dL 08/27/2018 LIPID GROUP 91138 HDL CH OLESTEROL 39 mg/dL 08/27/2018 LIPID GROUP 13194 Chol/H DL Ratio 8.21 ratio 08/27/2018 LIPID GROUP 18066 NON-HD L Chol 281 mg/dL 08/27/2018 LIPID GROUP 05776 LDL Ch olesterol N/A Trig >400 019 LIPID GROUP 94784 Fasting Unknown 08/27/2018 PHOSPHORUS 9041243 PHOSP HORUS 2.1 mg/dL 08/24/2018 PROTEIN/CREAT URINE WITH RATIO 78794|01316 U Protein 515 mg/dL 08/24/2018 PROTEIN/CREAT URINE WITH RATIO 03728|14320 U Creatinine 116 mg/dL 08/24/2018 PROTEIN/CREAT URINE WITH RATIO 73202|08040 Prot:Creat Rat 4440 mg/g 08/24/2018 MAGNESIUM 03625 MAGNESIUM 1.4 mEq/L 08/24/2018 GFR CALC 4536718 GFR Non Afr Amr 44 mL/min 08/24/2018 GFR CALC 4200068 GFR Afr Amr 53 mL/min 08/24/2018 [place] [address] Glucose TNP:Unknown Cancel Reason 08/24/2018 [place] [address] CREATININE TNP:Unknown Cancel Reason 08/24/2018 [place] [address] BUN TNP:Unknown Cancel Reason 08/24/2018 [place] [address] SODIUM TNP:Unknown Cancel Reason 08/24/2018 [place] [address] POTASSIUM TNP:Unknown Cancel Reason 08/24/2018 [place] [address] CHLORIDE TNP:Unknown Cancel Reason 08/24/2018 [place] [address] Bicarbonate TNP:Unknown Cancel Reason 08/24/2018 [place] [address] AGAP TNP:Unknown Cancel Reason 08/24/2018 [place] [address] CALCIUM TNP:Unknown Cancel Reason 08/24/2018 COMPREHENSIVE METABOLIC 19634 AST 21 U/L 08/24/2018 COMPREHENSIVE METABOLIC 13978 ALT 35 U/L 08/24/2018 COMPREHENSIVE METABOLIC 59431 BUN 25 mg/dL 08/24/2018 COMPREHENSIVE METABOLIC 78601 ALBUMIN 4.5 g/dL 08/24/2018 COMPREHENSIVE METABOLIC 86286 CHLORIDE 106 mmol/L 08/24/2018 COMPREHENSIVE METABOLIC 00831 Bili Total 0.4 mg/dL 08/24/2018 COMPREHENSIVE METABOLIC 93102 ALK PHOS 64 U/L 08/24/2018 COMPREHENSIVE METABOLIC 58833 SODIUM 141 mmol/L 08/24/2018 COMPREHENSIVE METABOLIC 85482 CREATININE 1.81 mg/dL 08/24/2018 COMPREHENSIVE METABOLIC 75466 CALCIUM 10.3 mg/dL 08/24/2018 COMPREHENSIVE METABOLIC 54200 POTASSIUM 3.4 mmol/L 08/24/2018 COMPREHENSIVE METABOLIC 73469 Total Protein 7.2 g/dL 08/24/2018 COMPREHENSIVE METABOLIC 41810 Glucose 101 mg/dL 08/24/2018 COMPREHENSIVE METABOLIC 78843 Bicarbonate 23 mmol/L 08/24/2018 COMPREHENSIVE METABOLIC 79595 AGAP 12 mmol/L 08/24/2018 UA W/MICR 52458 UA Urine Appear Normal 08/24/2018 UA W/MICR 36527 UA Prote in 3+ 08/24/2018 UA W/MICR 12347 UA Hemog lobin Trace 08/24/2018 UA W/MICR 97867 UA Gluco se 3+ 08/24/2018 UA W/MICR 06711 UA [place] es Negative 08/24/2018 UA W/MICR 97706 UA pH 6.0 08/24/2018 UA W/MICR 07400 U Spec G ravity 1.025 08/24/2018 UA W/MICR 50055 UA Bilir ubin Negative 08/24/2018 UA W/MICR 73656 UA Leuk Esteras Negative 08/24/2018 UA W/MICR 17446 UA Nitri te NEG 08/24/2018 UA W/MICR 74536 UA WBC/h pf 1 08/24/2018 UA W/MICR 61296 UA RBC a uto 12.9 /uL 08/24/2018 UA W/MICR 68922 UA RBC h pf 2 08/24/2018 UA W/MICR 09352 UA WBC a uto 5.9 /uL 08/24/2018 UA W/MICR 93635 UA SQ EP I auto 5.2 /uL 08/24/2018 UA W/MICR 93455 UA H Jamil t auto 0.10 /uL 08/24/2018 PROGRAF 8529077 Prograf 7.3 ng/mL 08/24/2018 MICROALBUMIN URINE RANDOM 22472 U Microalbumin 3485.2 mg/L 08/24/2018 MICROALBUMIN URINE RANDOM 99916 U Creatinine 116 mg/dL 08/24/2018 MICROALBUMIN URINE RANDOM 57704 ALB/CR Ratio 3004.5 mg/gCR 08/25/19 19 GLYCOSYLATED HEMOGLOBIN TEST 17386 Hgb A1c 60732-8 13.3 % 9 MEAN GLUC Calc M sherron Gluc 335 mg/dL 06/29/2018 COMPREHENSIVE METABOLIC 74273 AST 17 U/L 02/06/2018 COMPREHENSIVE METABOLIC 29522 ALT 24 U/L 02/06/2018 COMPREHENSIVE METABOLIC 26726 BUN 24 mg/dL 02/06/2018 COMPREHENSIVE METABOLIC 50363 ALBUMIN 3.9 g/dL 02/06/2018 COMPREHENSIVE METABOLIC 25078 CHLORIDE 108 mmol/L 02/06/2018 COMPREHENSIVE METABOLIC 09050 Bili Total 0.6 mg/dL 02/06/2018 COMPREHENSIVE METABOLIC 53701 ALK PHOS 67 U/L 02/06/2018 COMPREHENSIVE METABOLIC 61366 SODIUM 140 mmol/L 02/06/2018 COMPREHENSIVE METABOLIC 34449 CREATININE 1.75 mg/dL 02/06/2018 COMPREHENSIVE METABOLIC 12940 CALCIUM 9.6 mg/dL 02/06/2018 COMPREHENSIVE METABOLIC 36240 POTASSIUM 3.8 mmol/L 02/06/2018 COMPREHENSIVE METABOLIC 97756 Total Protein 7.1 g/dL 02/06/2018 COMPREHENSIVE METABOLIC 71581 Glucose 62 mg/dL 02/06/2018 COMPREHENSIVE METABOLIC 52451 Bicarbonate 23 mmol/L 02/06/2018 COMPREHENSIVE METABOLIC 91260 AGAP 9 mmol/L 02/06/2018 GLYCOSYLATED HEMOGLOBIN TEST 98436 Hgb A1c 56727-4 13.0 % 8 GFR CALC 0647495 GFR Non Afr Amr 46 mL/min 02/06/2018 GFR CALC 9019205 GFR Afr Amr 55 mL/min 02/06/2018 MICROALBUMIN URINE RANDOM 15004 U Microalbumin 669.0 mg/L 02/06/2018 MICROALBUMIN URINE RANDOM 37933 U Creatinine 92 mg/dL 02/06/2018 MICROALBUMIN URINE RANDOM 18347 ALB/CR Ratio 727.2 mg/gCR 8 MEAN GLUC Calc M sherron Gluc 326 mg/dL 02/06/2018 GLYCOSYLATED HEMOGLOBIN TEST 98220 Hgb A1c 89721-8 14.3 % 6 THYROID STIMULATING HORMONE 65230 TSH 1.909 uIU/mL 6 MAGNESIUM 22397 MAGNESIUM 1.5 mEq/L 12/03/2015 GFR CALC 0612214 GFR Non Afr Amr 39 mL/min 12/03/2015 GFR CALC 9967601 GFR Afr Amr 48 mL/min 12/03/2015 MEAN GLUC 3716048 Mean G lucose 364 mg/dL 12/03/2015 COMPREHENSIVE METABOLIC 70667 AST 34 U/L 12/03/2015 COMPREHENSIVE METABOLIC 42045 ALT 78 U/L 12/03/2015 COMPREHENSIVE METABOLIC 90366 BUN 29 mg/dL 12/03/2015 COMPREHENSIVE METABOLIC 12397 ALBUMIN 4.3 g/dL 12/03/2015 COMPREHENSIVE METABOLIC 39468 CHLORIDE 93 mmol/L 12/03/2015 COMPREHENSIVE METABOLIC 75082 Bili Total 0.7 mg/dL 12/03/2015 COMPREHENSIVE METABOLIC 61690 ALK PHOS 83 U/L 12/03/2015 COMPREHENSIVE METABOLIC 49797 SODIUM 125 mmol/L 12/03/2015 COMPREHENSIVE METABOLIC 47844 CREATININE 2.01 mg/dL 12/03/2015 COMPREHENSIVE METABOLIC 77464 CALCIUM 9.8 mg/dL 12/03/2015 COMPREHENSIVE METABOLIC 02806 POTASSIUM 4.3 mmol/L 12/03/2015 COMPREHENSIVE METABOLIC 80543 Total Protein 7.3 g/dL 12/03/2015 COMPREHENSIVE METABOLIC 59418 Glucose 542 mg/dL 12/03/2015 COMPREHENSIVE METABOLIC 53978 Bicarbonate 23 mmol/L 12/03/2015 COMPREHENSIVE METABOLIC 76737 AGAP 9 mmol/L 12/03/2015 COMPREHENSIVE METABOLIC 80916 AST 31 U/L 07/30/2013 COMPREHENSIVE METABOLIC 80615 ALT 52 IU/L 07/30/2013 COMPREHENSIVE METABOLIC 51384 BUN 26 MG/DL 07/30/2013 COMPREHENSIVE METABOLIC 27765 ALBUMIN 4.9 GM/DL 07/30/2013 COMPREHENSIVE METABOLIC 03280 CHLORIDE 108 MMOL/L 07/30/2013 COMPREHENSIVE METABOLIC 49357 BILI TOT 0.4 MG/DL 07/30/2013 COMPREHENSIVE METABOLIC 19482 ALK PHOS 68 U/L 07/30/2013 COMPREHENSIVE METABOLIC 40749 SODIUM 138 MMOL/L 07/30/2013 COMPREHENSIVE METABOLIC 67710 CREATININE 2.02 MG/DL 07/30/2013 COMPREHENSIVE METABOLIC 40778 CALCIUM 10.3 MG/DL 07/30/2013 COMPREHENSIVE METABOLIC 61074 POTASSIUM 5.0 MMOL/L 07/30/2013 COMPREHENSIVE METABOLIC 66722 PROT TOT 7.3 GM/DL 07/30/2013 COMPREHENSIVE METABOLIC 71514 Glucose 89 MG/DL 07/30/2013 COMPREHENSIVE METABOLIC 07204 BICARB 24 MMOL/L 07/30/2013 COMPREHENSIVE METABOLIC 20741 ANION GAP 6 MEQ/L 07/30/2013 GFR CALC 6496862 GFR AA 48.0L ML/MIN 07/30/2013 GFR CALC 8824124 GFR NON -AA 40.0L ML/MIN 4 COMPLETE BLOOD COUNT 8940713 WBC 7.9 10e9/L 07/30/2013 COMPLETE BLOOD COUNT 7000849 RBC 4.94 10e12/L 4 COMPLETE BLOOD COUNT 4635759 HGB 14.0 g/dL 07/30/2013 COMPLETE BLOOD COUNT 3763975 HCT DET 41.5 % 07/30/2013 COMPLETE BLOOD COUNT 4443461 MCV 84.0 fL 07/30/2013 COMPLETE BLOOD COUNT 2287377 MCH 28.3 pg 07/30/2013 COMPLETE BLOOD COUNT 5440960 MCHC 33.7 g/dL 07/30/2013 COMPLETE BLOOD COUNT 0073464 PLT 176 10e9/L 07/30/2013 COMPLETE BLOOD COUNT 3482561 MPV 11.8 fL 07/30/2013 COMPLETE BLOOD COUNT 7936957 CLAYTON % 75.4 % 07/30/2013 COMPLETE BLOOD COUNT 8553608 LY % 13.7 % 07/30/2013 COMPLETE BLOOD COUNT 3841858 MON % 8.9 % 07/30/2013 COMPLETE BLOOD COUNT 7510384 EOS % 1.7 % 07/30/2013 COMPLETE BLOOD COUNT 2763649 BASO % 0.3 % 07/30/2013 COMPLETE BLOOD COUNT 6990088 RDW 13.4 % 07/30/2013 COMPLETE BLOOD COUNT 0012931 ABS CLAYTON 5.96 10e9/L 07/30/2013 COMPLETE BLOOD COUNT 8222346 ABS LYMPH 1.08 10e9/L 07/30/2013 COMPLETE BLOOD COUNT 4997481 ABS MONO 0.70 10e9/L 07/30/2013 COMPLETE BLOOD COUNT 7360412 ABS EOS 0.13 10e9/L 07/30/2013 COMPLETE BLOOD COUNT 4391384 ABS BASO 0.02 10e9/L 07/30/2013 COMPLETE BLOOD COUNT 4124392 RDW-SD 40.2 fL 07/30/2013 C-REACTIVE PROTEIN (CRP) QUANT 26132 CRP 0.2 MG/DL 07/30/2013 CANCEL 9748521 CANCEL FOOTNOTE 05/23/2012 PEND CHEM 1070719 PEND C HEM FOOTNOTE 05/22/2012 COMPREHENSIVE METABOLIC 76848 AST 61 U/L 05/21/2012 COMPREHENSIVE METABOLIC 89119 ALT 106 U/L 05/21/2012 COMPREHENSIVE METABOLIC 81753 BUN 33 MG/DL 05/21/2012 COMPREHENSIVE METABOLIC 91784 ALBUMIN 5.0 GM/DL 05/21/2012 COMPREHENSIVE METABOLIC 30666 CHLORIDE 89 MMOL/L 05/21/2012 COMPREHENSIVE METABOLIC 80055 BILI TOT 0.6 MG/DL 05/21/2012 COMPREHENSIVE METABOLIC 79932 ALK PHOS 129 U/L 05/21/2012 COMPREHENSIVE METABOLIC 03943 SODIUM 120 MMOL/L 05/21/2012 COMPREHENSIVE METABOLIC 83499 CREATININE 2.23 MG/DL 05/21/2012 COMPREHENSIVE METABOLIC 55001 CALCIUM 9.8 MG/DL 05/21/2012 COMPREHENSIVE METABOLIC 12282 POTASSIUM 5.3 MMOL/L 05/21/2012 COMPREHENSIVE METABOLIC 77332 PROT TOT 7.8 GM/DL 05/21/2012 COMPREHENSIVE METABOLIC 80065 Glucose 789 MG/DL 05/21/2012 COMPREHENSIVE METABOLIC 52914 BICARB 20 MMOL/L 05/21/2012 COMPREHENSIVE METABOLIC 10905 ANION GAP 11 MMOL/L 05/21/2012 GFR CALC 2800621 GFR AA 43.0L ML/MIN 05/21/2012 GFR CALC 4015447 GFR NON -AA 36.0L ML/MIN 2 THYROID STIMULATING HORMONE 03677 TSH 1.499 uIU/ML 1 FREE T4 78441 FREE T4 1.15 NG/DL 01/27/2011 Review of Systems System Result Effective Dates Cardiovascular No arrhythmia 02/26/2019 Cardiovascular No chest pain/pressure 02/26/2019 Cardiovascular No edema 02/26/2019 Cardiovascular No exercise intolerance 02/26/2019 Cardiovascular No orthopnea 02/26/2019 Cardiovascular No palpitations 02/26/2019 Cardiovascular hypertension 02/26/2019 Constitutional No fever 06/26/2018 Constitutional No fatigue 06/26/2018 Constitutional No chills 06/26/2018 Gastrointestinal abdominal pain 06/26/2018 Gastrointestinal constipation 06/26/2018 Gastrointestinal No nausea 06/26/2018 Gastrointestinal No vomiting 06/26/2018 Gastrointestinal gas and bloating 06/26/2018 Constitutional No fatigue 02/06/2018 Constitutional No fever 02/06/2018 Constitutional No chills 02/06/2018 Gastrointestinal abdominal pain 02/06/2018 Gastrointestinal constipation 02/06/2018 Dermatologic No rash Genitourinary/Nephrology chronic shanelle al failure 02/06/2018 Constitutional No fatigue 11/02/2017 Constitutional No fever 11/02/2017 Gastrointestinal No abdominal pain 11/02/2017 Gastrointestinal No constipation 11/02/2017 Gastrointestinal No diarrhea 11/02/2017 Musculoskeletal No myalgias 11/02/2017 Endocrine diabetes mellitus type 2 11/02/2017 Constitutional No fever 07/27/2017 Constitutional No fatigue 07/27/2017 Constitutional No chills 07/27/2017 Eyes No visual disturbance 07/27/2017 Eyes No vision change Ears/Nose/Throat/Neck No headache 07/27/2017 Cardiovascular No chest pain/pressure 07/27/2017 Cardiovascular No fatigue 07/27/2017 Cardiovascular No hypertension 07/27/2017 Respiratory No cough Gastrointestinal No abdominal pain 07/27/2017 Gastrointestinal No constipation 07/27/2017 Gastrointestinal No diarrhea 07/27/2017 Genitourinary/Nephrology No anuria/oliguri a 07/27/2017 Genitourinary/Nephrology No dysuria 07/27/2017 Musculoskeletal No myalgias 07/27/2017 Dermatologic No rash Neurologic No alteration of consciousness 07/27/2017 Neurologic No headache 0 07/27/2017 Psychiatric No anxiety 0 07/27/2017 Psychiatric No stress Psychiatric No suicidality 07/27/2017 Endocrine diabetes mellitus type 2 07/27/2017 Allergy/Immunology No food allergy 07/27/2017 Constitutional weight loss 07/27/2017 Dermatologic sores 07/27 Dermatologic tinea 04/05 Endocrine diabetes mellitus type 2 04/05/2017 Endocrine No goiter /0 02/2017 Endocrine No hyperglycemia 06/20/2016 Endocrine No hypoglycemia 06/20/2016 Endocrine diabetes mellitus type 1 06/20/2016 Endocrine hyperlipidemia 06/20/2016 Cardiovascular hypertension 06/20/2016 Constitutional No night sweats 02/16/2016 Constitutional No anorexia 02/16/2016 Constitutional No chills 02/16/2016 Constitutional No fatigue 02/16/2016 Constitutional No fever 02/16/2016 Cardiovascular No arrhythmia 02/16/2016 Cardiovascular No chest pain/pressure 02/16/2016 Cardiovascular No edema 02/16/2016 Cardiovascular No exercise intolerance 02/16/2016 Cardiovascular No orthopnea 02/16/2016 Cardiovascular No palpitations 02/16/2016 Respiratory No asthma Respiratory No cough 11/2015 Respiratory No dyspnea 0 02/16/2016 Respiratory No pleuritic pain 02/16/2016 Respiratory No productive sputum 02/16/2016 Respiratory No wheezing 02/16/2016 Gastrointestinal No hemorrhoids 02/16/2016 Gastrointestinal No hepatitis 02/16/2016 Gastrointestinal abdominal pain 02/16/2016 Gastrointestinal No constipation 02/16/2016 Gastrointestinal No diarrhea 02/16/2016 Gastrointestinal No gastroesophageal reflu x 02/16/2016 Gastrointestinal No melena 02/16/2016 Gastrointestinal No nausea 02/16/2016 Gastrointestinal No vomiting 02/16/2016 Genitourinary/Nephrology dysuria 02/16/2016 Genitourinary/Nephrology No flank pain 02/16/2016 Genitourinary/Nephrology hematuria 02/16/2016 Genitourinary/Nephrology No pelvic pain 02/16/2016 Genitourinary/Nephrology No urinary urgenc y 02/16/2016 Genitourinary/Nephrology No urinary frequency 02/16/2016 Genitourinary/Nephrology No urinary incontinence 02/16/2016 Dermatologic No rash 11/2015 Dermatologic No scar 11/2015 Hematologic/Lymphatic No abnormal ec chymoses 02/16/2016 Hematologic/Lymphatic No petechiae 02/16/2016 Hematologic/Lymphatic No abnormal bl eeding and bruising 02/16/2016 Hematologic/Lymphatic No anemia 02/16/2016 Hematologic/Lymphatic No lymph node enlargement/mass 02/16/2016 Genitourinary/Nephrology No penile p ain and discharge 02/16/2016 Endocrine diabetes mellitus type 2 12/03/2015 Endocrine hyperglycemia 12/03/2015 Musculoskeletal myalgias 12/03/2015 Musculoskeletal muscle spasm 12/03/2015 Neurologic pain, limb Neurologic paresthesia 0 06/24/2015 Neurologic gait abnormality 06/24/2015 Endocrine diabetes mellitus type 2 06/24/2015 Constitutional fatigue 1 Ears/Nose/Throat/Neck sinus congestion 06/11/2015 Ears/Nose/Throat/Neck sinusitis 06/11/2015 Respiratory No asthma Respiratory cough 2014 Respiratory No dyspnea 1 Respiratory No pleuritic pain 06/11/2015 Respiratory No productive sputum 06/11/2015 Respiratory No wheezing 06/11/2015 Neurologic headache 05/14 Ears/Nose/Throat/Neck hearing loss 06/11/2015 Ears/Nose/Throat/Neck No otalgia 06/11/2015 Constitutional No night sweats 07/17/2014 Constitutional No fatigue 07/17/2014 Constitutional No fever 07/17/2014 Constitutional No insomnia 07/17/2014 Constitutional No weight loss 07/17/2014 Ears/Nose/Throat/Neck No hearing loss 07/17/2014 Ears/Nose/Throat/Neck No nasal discharge 07/17/2014 Ears/Nose/Throat/Neck No sinus congestion 07/17/2014 Ears/Nose/Throat/Neck No sore throat 07/17/2014 Cardiovascular No arrhythmia 07/17/2014 Cardiovascular No chest pain/pressure 07/17/2014 Cardiovascular No edema 07/17/2014 Cardiovascular No exercise intolerance 07/17/2014 Cardiovascular No orthopnea 07/17/2014 Cardiovascular No palpitations 07/17/2014 Respiratory No asthma Respiratory No cough 10/2014 Respiratory No dyspnea 0 07/17/2014 Respiratory No pleuritic pain 07/17/2014 Respiratory No productive sputum 07/17/2014 Respiratory No wheezing 07/17/2014 Gastrointestinal No hemorrhoids 07/17/2014 Gastrointestinal No hepatitis 07/17/2014 Gastrointestinal No abdominal pain 07/17/2014 Gastrointestinal No constipation 07/17/2014 Gastrointestinal No diarrhea 07/17/2014 Gastrointestinal No gastroesophageal reflu x 07/17/2014 Gastrointestinal No melena 07/17/2014 Gastrointestinal No nausea 07/17/2014 Gastrointestinal No vomiting 07/17/2014 Musculoskeletal No muscle weakness 07/17/2014 Musculoskeletal No myalgias 07/17/2014 Musculoskeletal No stiffness 07/17/2014 Musculoskeletal No swelling 07/17/2014 Neurologic No dizziness 07/17/2014 Neurologic No headache 0 07/17/2014 Neurologic No neck pain 07/17/2014 Neurologic No syncope Psychiatric No anxiety 0 07/17/2014 Psychiatric No depression 07/17/2014 Endocrine diabetes mellitus type 2 08/01/2013 Gastrointestinal abdominal pain 08/01/2013 Gastrointestinal No nausea 07/30/2013 Gastrointestinal No diarrhea 07/30/2013 Genitourinary/Nephrology No testicular william n 07/30/2013 Genitourinary/Nephrology hematuria 07/30/2013 Constitutional No fever 07/30/2013 Genitourinary/Nephrology acute renal failure 07/30/2013 Genitourinary/Nephrology No chronic renal failure 07/30/2013 Cardiovascular hypertension 05/30/2013 Psychiatric stress 05/30 Psychiatric stress 04/29 Psychiatric depression 1 06/29/2012 Cardiovascular hypertension 04/29/2013 Cardiovascular hypertension 02/27/2013 Endocrine diabetes mellitus type 2 02/27/2013 Respiratory No asthma Respiratory No cough Respiratory No dyspnea 0 02/27/2013 Respiratory No pleuritic pain 02/27/2013 Respiratory No productive sputum 02/27/2013 Respiratory No wheezing 02/27/2013 Gastrointestinal No hemorrhoids 02/27/2013 Gastrointestinal No hepatitis 02/27/2013 Gastrointestinal No abdominal pain 02/27/2013 Gastrointestinal No constipation 02/27/2013 Gastrointestinal No diarrhea 02/27/2013 Gastrointestinal No gastroesophageal reflu x 02/27/2013 Gastrointestinal No melena 02/27/2013 Gastrointestinal No nausea 02/27/2013 Gastrointestinal No vomiting 02/27/2013 Genitourinary/Nephrology No dysuria 02/27/2013 Genitourinary/Nephrology No nocturia 02/27/2013 Genitourinary/Nephrology No urinary incontinence 02/27/2013 Musculoskeletal No muscle weakness 02/27/2013 Musculoskeletal No myalgias 02/27/2013 Musculoskeletal No stiffness 02/27/2013 Musculoskeletal No swelling 02/27/2013 Dermatologic No rash Dermatologic No scar Neurologic No dizziness 02/27/2013 Neurologic No headache 0 02/27/2013 Neurologic No neck pain 02/27/2013 Neurologic No syncope Psychiatric No anxiety 0 02/27/2013 Psychiatric No depression 02/27/2013 Constitutional No fever 01/01/2013 Constitutional No recent illness 01/01/2013 Dermatologic sores 01/01 Cardiovascular hypertension 11/27/2012 Respiratory No asthma Respiratory No cough Respiratory No dyspnea 0 11/27/2012 Respiratory No pleuritic pain 11/27/2012 Respiratory No productive sputum 11/27/2012 Respiratory No wheezing 11/27/2012 Endocrine diabetes mellitus type 2 11/27/2012 Gastrointestinal No hemorrhoids 11/27/2012 Gastrointestinal No hepatitis 11/27/2012 Gastrointestinal No abdominal pain 11/27/2012 Gastrointestinal No constipation 11/27/2012 Gastrointestinal No diarrhea 11/27/2012 Gastrointestinal No gastroesophageal reflu x 11/27/2012 Gastrointestinal No melena 11/27/2012 Gastrointestinal No nausea 11/27/2012 Gastrointestinal No vomiting 11/27/2012 Genitourinary/Nephrology No dysuria 11/27/2012 Genitourinary/Nephrology No nocturia 11/27/2012 Genitourinary/Nephrology No urinary incontinence 11/27/2012 Musculoskeletal No muscle weakness 11/27/2012 Musculoskeletal No myalgias 11/27/2012 Musculoskeletal No stiffness 11/27/2012 Musculoskeletal No swelling 11/27/2012 Dermatologic No rash Dermatologic No scar Neurologic No dizziness 11/27/2012 Neurologic No headache 0 11/27/2012 Neurologic No neck pain 11/27/2012 Neurologic No syncope Psychiatric No anxiety 0 11/27/2012 Psychiatric No depression 11/27/2012 Endocrine hypothyroid Musculoskeletal joint complaint 08/28/2012 Cardiovascular hypertension 08/28/2012 Endocrine hyperlipidemia 08/28/2012 Cardiovascular hypertension 07/03/2012 Endocrine diabetes mellitus type 2 07/03/2012 Endocrine diabetes mellitus type 2 06/21/2012 Cardiovascular hypertension 06/21/2012 Psychiatric stress 06/21 Psychiatric anxiety 06/12 Cardiovascular hypertension 05/30/2012 Endocrine diabetes mellitus type 2 05/30/2012 Eyes vision change 05/30 Eyes visual disturbance 05/30/2012 Eyes vision change 05/21 Cardiovascular hypertension 01/24/2012 Respiratory No asthma Respiratory No pleuritic pain 01/24/2012 Respiratory No productive sputum 01/24/2012 Respiratory No cough Respiratory No dyspnea 0 01/24/2012 Respiratory No wheezing 01/24/2012 Gastrointestinal No hemorrhoids 01/24/2012 Gastrointestinal No hepatitis 01/24/2012 Gastrointestinal No abdominal pain 01/24/2012 Gastrointestinal No constipation 01/24/2012 Gastrointestinal No diarrhea 01/24/2012 Gastrointestinal No gastroesophageal reflu x 01/24/2012 Gastrointestinal No melena 01/24/2012 Gastrointestinal No nausea 01/24/2012 Gastrointestinal No vomiting 01/24/2012 Genitourinary/Nephrology No dysuria 01/24/2012 Genitourinary/Nephrology No nocturia 01/24/2012 Genitourinary/Nephrology No urinary incontinence 01/24/2012 Musculoskeletal No muscle weakness 01/24/2012 Musculoskeletal No myalgias 01/24/2012 Musculoskeletal No stiffness 01/24/2012 Musculoskeletal No swelling 01/24/2012 Dermatologic No rash Dermatologic No scar Neurologic No dizziness 01/24/2012 Neurologic No headache 0 01/24/2012 Neurologic No neck pain 01/24/2012 Neurologic No syncope Psychiatric No anxiety 0 01/24/2012 Psychiatric No depression 01/24/2012 Endocrine No goiter 01/10 Endocrine No hyperglycemia 01/24/2012 Endocrine No hypoglycemia 01/24/2012 Ears/Nose/Throat/Neck No hearing loss 01/24/2012 Ears/Nose/Throat/Neck No nasal discharge 01/24/2012 Ears/Nose/Throat/Neck No sinus congestion 01/24/2012 Ears/Nose/Throat/Neck No sore throat 01/24/2012 Eyes vision change 01/23 Eyes visual disturbance 01/24/2012 Gastrointestinal nausea 09/21/2011 Gastrointestinal vomiting 09/21/2011 Neurologic dizziness 04/2012 Cardiovascular hypertension 09/12/2011 Endocrine hyperlipidemia 09/12/2011 Respiratory No asthma Respiratory No pleuritic pain 09/12/2011 Respiratory No productive sputum 09/12/2011 Respiratory No cough 07/2011 Respiratory No dyspnea 0 09/12/2011 Respiratory No wheezing 09/12/2011 Gastrointestinal No hemorrhoids 09/12/2011 Gastrointestinal No hepatitis 09/12/2011 Gastrointestinal No abdominal pain 09/12/2011 Gastrointestinal No constipation 09/12/2011 Gastrointestinal No diarrhea 09/12/2011 Gastrointestinal No gastroesophageal reflu x 09/12/2011 Gastrointestinal No melena 09/12/2011 Gastrointestinal No nausea 09/12/2011 Gastrointestinal No vomiting 09/12/2011 Genitourinary/Nephrology No dysuria 09/12/2011 Genitourinary/Nephrology No nocturia 09/12/2011 Genitourinary/Nephrology No urinary incontinence 09/12/2011 Musculoskeletal No muscle weakness 09/12/2011 Musculoskeletal No myalgias 09/12/2011 Musculoskeletal No stiffness 09/12/2011 Musculoskeletal No swelling 09/12/2011 Dermatologic No rash 07/2011 Dermatologic No scar 07/2011 Neurologic No dizziness 09/12/2011 Neurologic No headache 0 09/12/2011 Neurologic No neck pain 09/12/2011 Neurologic No syncope Neurologic headache 01/0 08/2011 Cardiovascular hypertension 06/14/2011 Constitutional fatigue 0 06/14/2011 Endocrine hypothyroid Constitutional No night sweats 03/03/2011 Constitutional No fatigue 03/03/2011 Constitutional No fever 03/03/2011 Constitutional No insomnia 03/03/2011 Constitutional No weight loss 03/03/2011 Cardiovascular hypertension 03/03/2011 Respiratory No asthma Respiratory No pleuritic pain 03/03/2011 Respiratory No productive sputum 03/03/2011 Respiratory No cough Respiratory No dyspnea 0 03/03/2011 Respiratory No wheezing 03/03/2011 Gastrointestinal No hemorrhoids 03/03/2011 Gastrointestinal No hepatitis 03/03/2011 Gastrointestinal No abdominal pain 03/03/2011 Gastrointestinal No constipation 03/03/2011 Gastrointestinal No diarrhea 03/03/2011 Gastrointestinal No gastroesophageal reflu x 03/03/2011 Gastrointestinal No melena 03/03/2011 Gastrointestinal No nausea 03/03/2011 Gastrointestinal No vomiting 03/03/2011 Genitourinary/Nephrology No dysuria 03/03/2011 Genitourinary/Nephrology No nocturia 03/03/2011 Genitourinary/Nephrology No urinary incontinence 03/03/2011 Musculoskeletal No muscle weakness 03/03/2011 Musculoskeletal No myalgias 03/03/2011 Musculoskeletal No stiffness 03/03/2011 Musculoskeletal No swelling 03/03/2011 Neurologic headache 01/10 Cardiovascular hypertension 01/27/2011 Endocrine hypothyroid Cardiovascular No orthopnea 12/02/2010 Cardiovascular No palpitations 12/02/2010 Cardiovascular hypertension 12/02/2010 Respiratory No asthma Respiratory No pleuritic pain 12/02/2010 Respiratory No productive sputum 12/02/2010 Respiratory No cough Respiratory No dyspnea 0 12/02/2010 Respiratory No wheezing 12/02/2010 Gastrointestinal No hemorrhoids 12/02/2010 Gastrointestinal No hepatitis 12/02/2010 Gastrointestinal No abdominal pain 12/02/2010 Gastrointestinal No constipation 12/02/2010 Gastrointestinal No diarrhea 12/02/2010 Gastrointestinal No gastroesophageal reflu x 12/02/2010 Gastrointestinal No melena 12/02/2010 Gastrointestinal No nausea 12/02/2010 Gastrointestinal No vomiting 12/02/2010 Genitourinary/Nephrology No dysuria 12/02/2010 Genitourinary/Nephrology No nocturia 12/02/2010 Genitourinary/Nephrology No urinary incontinence 12/02/2010 Musculoskeletal No muscle weakness 12/02/2010 Musculoskeletal No myalgias 12/02/2010 Musculoskeletal No stiffness 12/02/2010 Musculoskeletal No swelling 12/02/2010 Dermatologic No rash Dermatologic No scar Constitutional No fatigue 12/02/2010 Constitutional weight gain/obesity 12/02/2010 Cardiovascular No arrhythmia 12/02/2010 Cardiovascular No chest pain/pressure 12/02/2010 Cardiovascular No edema 12/02/2010 Cardiovascular No exercise intolerance 12/02/2010 Neurologic No dizziness 12/02/2010 Neurologic No headache 0 12/02/2010 Neurologic No neck pain 12/02/2010 Neurologic No syncope Psychiatric No anxiety 0 12/02/2010 Psychiatric No depression 12/02/2010 Physical Exam Exam Name System Name It em Name Status Result Effective Dates Notes Full Exam - General Constitutional general appearance Overall: well nourished 02/26/2019 None Full Exam - General Constitutional general appearance Overall: well developed 02/26/2019 None Full Exam - General Constitutional general appearance Overall: in no acute distress 02/26/2019 None Full Exam - General Neurologic mental status Overall: alert 9 None Full Exam - General Neurologic mental status Overall: oriented 02/26/2019 None Full Exam - General Psychiatric mood and affect Overall: normal mood and affect 02/26/2019 None Full Exam - General Respiratory auscultation Overall: breath sounds clear bilater ally 02/26/2019 None Full Exam - General Cardiovascular auscultation of heart Overall: regular rate 02/26/2019 None Full Exam - General Cardiovascular auscultation of heart Overall: normal heart sounds 02/26/2019 None Full Exam - General Cardiovascular extremities Overall: no clubbing 02/26/2019 None Full Exam - General Cardiovascular extremities Overall: No edema 02/26/2019 None Full Exam - General Cardiovascular extremities Overall: No cyanosis 02/26/2019 None Full Exam - General Constitutional general appearance Overall: well nourished 06/26/2018 None Full Exam - General Constitutional general appearance Overall: in no acute distress 06/26/2018 None Full Exam - General Cardiovascular auscultation of heart Overall: regular rate 06/26/2018 None Full Exam - General Cardiovascular auscultation of heart Overall: no murmurs 06/26/2018 None Full Exam - General Respiratory respiratory effort/rhythm Overall: no retractions 06/26/2018 None Full Exam - General Respiratory respiratory effort/rhythm Overall: normal rate 06/26/2018 None Full Exam - General Respiratory auscultation Overall: breath sounds clear bilater ally 06/26/2018 None Full Exam - General Abdomen abdominal exam Overall: soft 06/26/2018 None Full Exam - General Abdomen abdominal exam Overall: no masses 06/26/2018 None Full Exam - General Abdomen abdominal exam Overall: normal bowel sounds 06/26/2018 None Full Exam - General Abdomen abdominal exam Epigastric: tender to palpation 06/26/2018 None Full Exam - General Abdomen abdominal exam Left lower quadrant: tender to palpa tion 06/26/2018 None Full Exam - General Abdomen abdominal exam Left upper quadrant: tender to palpa tion 06/26/2018 None Full Exam - General Psychiatric orientation/consciousness Overall: oriented to person, place and time 06/26/2018 None Full Exam - General Psychiatric behavior/psychomotor activity Overall: no tics, normal psychomotor activity 06/26/2018 None Full Exam - General Psychiatric mood and affect Overall: normal mood and affect 06/26/2018 None Full Exam - General Psychiatric appearance Overall: well-groomed, good eye cont act 06/26/2018 None Full Exam - General Constitutional general appearance Overall: well nourished 02/06/2018 None Full Exam - General Constitutional general appearance Overall: in no acute distress 02/06/2018 None Full Exam - General Respiratory percussion Overall: benign percussion 02/06/2018 None Full Exam - General Respiratory respiratory effort/rhythm Overall: no retractions 02/06/2018 None Full Exam - General Respiratory respiratory effort/rhythm Overall: normal rate 02/06/2018 None Full Exam - General Respiratory auscultation Overall: breath sounds clear bilater ally 02/06/2018 None Full Exam - General Cardiovascular auscultation of heart Overall: regular rate 02/06/2018 None Full Exam - General Cardiovascular auscultation of heart Overall: no murmurs 02/06/2018 None Full Exam - General Abdomen abdominal exam Overall: soft 02/06/2018 None Full Exam - General Abdomen abdominal exam Overall: no masses 02/06/2018 None Full Exam - General Abdomen abdominal exam Overall: normal bowel sounds 02/06/2018 None Full Exam - General Abdomen abdominal exam Right lower quadrant: tender to palp ation 02/06/2018 None Full Exam - General Neurologic mental status Overall: alert 8 None Full Exam - General Neurologic mental status Overall: oriented 02/06/2018 None Full Exam - General Constitutional general appearance Overall: well nourished 11/02/2017 None Full Exam - General Constitutional general appearance Overall: in no acute distress 11/02/2017 None Full Exam - General Cardiovascular auscultation of heart Overall: regular rate 11/02/2017 None Full Exam - General Cardiovascular auscultation of heart Overall: no murmurs 11/02/2017 None Full Exam - General Respiratory respiratory effort/rhythm Overall: no retractions 11/02/2017 None Full Exam - General Respiratory respiratory effort/rhythm Overall: normal rate 11/02/2017 None Full Exam - General Respiratory auscultation Overall: breath sounds clear bilater ally 11/02/2017 None Full Exam - General Psychiatric orientation/consciousness Overall: oriented to person, place and time 11/02/2017 None Full Exam - General Psychiatric behavior/psychomotor activity Overall: no tics, normal psychomotor activity 11/02/2017 None Full Exam - General Psychiatric mood and affect Overall: normal mood and affect 11/02/2017 None Full Exam - General Constitutional general appearance Overall: well nourished 07/27/2017 None Full Exam - General Constitutional general appearance Overall: in no acute distress 07/27/2017 None Full Exam - General Constitutional general appearance Development: well developed 07/27/2017 None Full Exam - General Constitutional general appearance Development: appears stated age 0207/27/2017 None Full Exam - General Constitutional general appearance Stature/Body Habitus: normal body habitus 07/27/2017 None Full Exam - General Constitutional general appearance Nourishment: well nourished 07/27/2017 None Full Exam - General Constitutional general appearance Evidence of Distress: in no acute distress 07/27/2017 None Full Exam - General Eyes pupils and irises Overall: pupils equal, round, reacti ve to light and accomodation 07/27/2017 None Full Exam - General Eyes conjunctiva/eyelids Overall: conjunctiva clear 07/27/2017 None Full Exam - General Eyes conjunctiva/eyelids Overall: cornea clear 07/27/2017 None Full Exam - General Eyes conjunctiva/eyelids Overall: eyelids normal 07/27/2017 None Full Exam - General Psychiatric orientation/consciousness Overall: oriented to person, place and time 07/27/2017 None Full Exam - General Psychiatric behavior/psychomotor activity Overall: no tics, normal psychomotor activity 07/27/2017 None Full Exam - General Psychiatric mood and affect Overall: normal mood and affect 07/27/2017 None Full Exam - General Psychiatric appearance Overall: well-groomed, good eye cont act 07/27/2017 None Full Exam - General Psychiatric speech Overall: normal quality, no aphasia 07/27/2017 None Full Exam - General Psychiatric speech Overall: normal quality, quantity, r ate 07/27/2017 None Full Exam - General Psychiatric attention Overall: normal digit recall and num jordi repeating 07/27/2017 None Full Exam - General Psychiatric thought Overall: normal form and content 07/27/2017 None Full Exam - General Neurologic sensation Overall: intact to touch, pin, vibra tion, proprioception 07/27/2017 None Full Exam - General Neurologic mental status Overall: alert 8 None Full Exam - General Neurologic mental status Overall: oriented 07/27/2017 None Full Exam - General Neurologic deep tendon reflexes Right (graded 0-4+ with 2+ being normal) : patella: weak but chronic due to no ligaments. 07/27/2017 None Full Exam - General Neurologic gait Overall: no ataxia, no unsteadiness 07/27/2017 None Full Exam - General Neurologic coordination Overall: no dysdiadochokinesis, no d ysmetria 07/27/2017 None Full Exam - General Neurologic coordination Overall: no tremors 07/27/2017 None Full Exam - General Neurologic cranial nerves Overall: cranial nerves 1-12 intact 07/27/2017 None Full Exam - General Neurologic motor Overall: normal bulk, tone 07/27/2017 None Full Exam - General Musculoskeletal gait and station Overall: normal gait 07/27/2017 None Full Exam - General Musculoskeletal gait and station Overall: normal station 07/27/2017 None Full Exam - General Musculoskeletal spine, ribs and pelvis Overall: good posture 07/27/2017 None Full Exam - General Musculoskeletal spine, ribs and pelvis Overall: ribs benign 07/27/2017 None Full Exam - General Musculoskeletal left lower extremity Overall: normal LLE bulk and tone 07/27/2017 None Full Exam - General Musculoskeletal left lower extremity Overall: full strength in LLE 07/27/2017 None Full Exam - General Musculoskeletal right lower extremity Overall: full strength in RLE 07/27/2017 None Full Exam - General Musculoskeletal right lower extremity Overall: normal RLE bulk and tone 07/27/2017 None Full Exam - General Musculoskeletal left upper extremity Overall: full strength in LUE 07/27/2017 None Full Exam - General Musculoskeletal left upper extremity Overall: normal LUE bulk and tone 07/27/2017 None Full Exam - General Musculoskeletal right upper extremity Overall: full strength in RUE 07/27/2017 None Full Exam - General Musculoskeletal right upper extremity Overall: normal RUE bulk and tone 07/27/2017 None Full Exam - General Musculoskeletal digits and nails Overall: no clubbing 07/27/2017 None Full Exam - General Musculoskeletal digits and nails Overall: digits benign 07/27/2017 None Full Exam - General Musculoskeletal head and neck Overall: head atraumatic 07/27/2017 None Full Exam - General Musculoskeletal head and neck Overall: TMJ benign 07/27/2017 None Full Exam - General Lymphatic neck nodes Overall: anterior cervical chain kassie ign 07/27/2017 None Full Exam - General Lymphatic neck nodes Overall: posterior cervical chain be nign 07/27/2017 None Full Exam - General Abdomen abdominal exam Overall: no tenderness 07/27/2017 None Full Exam - General Abdomen abdominal exam Overall: soft 07/27/2017 None Full Exam - General Abdomen abdominal exam Overall: no masses 07/27/2017 None Full Exam - General Abdomen abdominal exam Overall: normal bowel sounds 07/27/2017 None Full Exam - General Abdomen liver and spleen exam Overall: no hepatosplenomegaly 07/27/2017 None Full Exam - General Cardiovascular auscultation of heart Overall: regular rate 07/27/2017 None Full Exam - General Cardiovascular auscultation of heart Overall: no murmurs 07/27/2017 None Full Exam - General Cardiovascular inspection of carotid pulses Overall: strong, bilaterally equal, no bruits 07/27/2017 None Full Exam - General Cardiovascular palpation of heart Overall: apical impulse location normal 07/27/2017 None Full Exam - General Cardiovascular palpation of heart Overall: no heave/lift 07/27/2017 None Full Exam - General Cardiovascular inspection of abdominal aorta Overall: normal diameter 07/27/2017 None Full Exam - General Cardiovascular inspection of pedal pulses Overall: strong, equal bilaterally 07/27/2017 None Full Exam - General Cardiovascular extremities Overall: no clubbing 07/27/2017 None Full Exam - General Cardiovascular extremities Overall: No edema 07/27/2017 None Full Exam - General Cardiovascular extremities Overall: No cyanosis 07/27/2017 None Full Exam - General Respiratory respiratory effort/rhythm Overall: no retractions 07/27/2017 None Full Exam - General Respiratory respiratory effort/rhythm Overall: normal rate 07/27/2017 None Full Exam - General Respiratory auscultation Overall: breath sounds clear bilater ally 07/27/2017 None Full Exam - General Respiratory palpation of chest Overall: normal excursion, no pain 07/27/2017 None Full Exam - General Respiratory percussion Overall: benign percussion 07/27/2017 None Full Exam - General Neck thyroid Overall: normal size None Full Exam - General Neck thyroid Overall: normal consistency 07/27/2017 None Full Exam - General Neck thyroid Overall: nontender 07/27 None Full Exam - General Neck thyroid Overall: no mass lesions 07/27/2017 None Full Exam - General Ears/Nose/Throat oral cavity/pharynx/larynx Overall: oral mucosa clear 07/27/2017 None Full Exam - General Ears/Nose/Throat oral cavity/pharynx/larynx Overall: oropharyngeal mucosa clear 07/27/2017 None Full Exam - General Ears/Nose/Throat lips/teeth/gingiva Overall: benign lips 07/27/2017 None Full Exam - General Ears/Nose/Throat lips/teeth/gingiva Overall: normal dentition 07/27/2017 None Full Exam - General Ears/Nose/Throat lips/teeth/gingiva Overall: benign gingiva 07/27/2017 None Full Exam - General Ears/Nose/Throat lips/teeth/gingiva Overall: no masses 07/27/2017 None Full Exam - General Ears/Nose/Throat internal nose Overall: bilateral nasal cavities clear 07/27/2017 None Full Exam - General Ears/Nose/Throat internal nose Overall: septum midline 07/27/2017 None Full Exam - General Ears/Nose/Throat internal nose Overall: turbinates benign 07/27/2017 None Full Exam - General Ears/Nose/Throat hearing assessment Overall: hearing intact bilaterally 07/27/2017 due to hearing aids. Full Exam - General Ears/Nose/Throat external nose Overall: benign appearance 07/27/2017 None Full Exam - General Ears/Nose/Throat external nose Overall: no masses 07/27/2017 None Full Exam - General Ears/Nose/Throat external nose Overall: non-tender 07/27/2017 None Full Exam - General Ears/Nose/Throat external ear Overall: normal appearance 07/27/2017 None Full Exam - General Ears/Nose/Throat external ear Overall: no masses 07/27/2017 None Full Exam - General Ears/Nose/Throat external ear Overall: normal mastoids 07/27/2017 None Full Exam - General Ears/Nose/Throat otoscopic exam Left tympanic membrane: tympanosclerosis 07/27/2017 None Full Exam - General Ears/Nose/Throat otoscopic exam Right tympanic membrane: tympanosclerosis 07/27/2017 None Full Exam - General Integument inspection of skin Location: right hand 07/27/2017 pinky finger to palm side. 3x3 mm open a venancio with purulent drainge with erythema around site. Full Exam - General Constitutional general appearance Overall: well nourished 04/05/2017 None Full Exam - General Constitutional general appearance Overall: in no acute distress 04/05/2017 None Full Exam - General Neurologic sensation Overall: intact to touch, pin, vibra tion, proprioception 04/05/2017 diabetic foot exam wnl using monofilament. sensation, color, pulses, temperature all wnl. Full Exam - General Respiratory respiratory effort/rhythm Overall: no retractions 04/05/2017 None Full Exam - General Respiratory respiratory effort/rhythm Overall: normal rate 04/05/2017 None Full Exam - General Respiratory auscultation Overall: breath sounds clear bilater ally 04/05/2017 None Full Exam - General Cardiovascular auscultation of heart Overall: regular rate 04/05/2017 None Full Exam - General Cardiovascular auscultation of heart Overall: no murmurs 04/05/2017 None Full Exam - General Ears/Nose/Throat otoscopic exam Left tympanic membrane: tympanosclerosis 04/05/2017 None Full Exam - General Ears/Nose/Throat otoscopic exam Right tympanic membrane: tympanosclerosis 04/05/2017 None Full Exam - General Constitutional general appearance Overall: well nourished 06/20/2016 None Full Exam - General Constitutional general appearance Overall: well developed 06/20/2016 None Full Exam - General Constitutional general appearance Overall: in no acute distress 06/20/2016 None Full Exam - General Neurologic mental status Overall: alert 7 None Full Exam - General Neurologic mental status Overall: oriented 06/20/2016 None Full Exam - General Psychiatric mood and affect Overall: normal mood and affect 06/20/2016 None Full Exam - General Respiratory auscultation Overall: breath sounds clear bilater ally 06/20/2016 None Full Exam - General Cardiovascular auscultation of heart Overall: regular rate 06/20/2016 None Full Exam - General Cardiovascular auscultation of heart Overall: normal heart sounds 06/20/2016 None Full Exam - General Cardiovascular extremities Overall: no clubbing 06/20/2016 None Full Exam - General Cardiovascular extremities Overall: No edema 06/20/2016 None Full Exam - General Cardiovascular extremities Overall: No cyanosis 06/20/2016 None Full Exam - General Constitutional general appearance Overall: well nourished 02/16/2016 None Full Exam - General Constitutional general appearance Overall: well developed 02/16/2016 None Full Exam - General Constitutional general appearance Overall: in no acute distress 02/16/2016 None Full Exam - General Respiratory auscultation Overall: breath sounds clear bilater ally 02/16/2016 None Full Exam - General Cardiovascular auscultation of heart Overall: regular rate 02/16/2016 None Full Exam - General Cardiovascular auscultation of heart Overall: normal heart sounds 02/16/2016 None Full Exam - General Abdomen abdominal exam Overall: no tenderness 02/16/2016 None Full Exam - General Abdomen abdominal exam Overall: soft 02/16/2016 None Full Exam - General Abdomen abdominal exam Overall: no masses 02/16/2016 None Full Exam - General Abdomen abdominal exam Overall: normal bowel sounds 02/16/2016 None Full Exam - General Integument inspection of skin Overall: no rash, lesions 02/16/2016 None Full Exam - General Neurologic mental status Overall: alert 6 None Full Exam - General Neurologic mental status Overall: oriented 02/16/2016 None Full Exam - General Constitutional general appearance Overall: well nourished 12/03/2015 None Full Exam - General Constitutional general appearance Overall: well developed 12/03/2015 None Full Exam - General Constitutional general appearance Overall: in no acute distress 12/03/2015 None Full Exam - General Neurologic mental status Overall: alert 6 None Full Exam - General Neurologic mental status Overall: oriented 12/03/2015 None Full Exam - General Psychiatric mood and affect Overall: normal mood and affect 12/03/2015 None Full Exam - General Respiratory auscultation Overall: breath sounds clear bilater ally 12/03/2015 None Full Exam - General Cardiovascular auscultation of heart Overall: regular rate 12/03/2015 None Full Exam - General Cardiovascular auscultation of heart Overall: normal heart sounds 12/03/2015 None Full Exam - General Cardiovascular auscultation of heart S3 (ventricular gallop): present 12/03/2015 None Full Exam - General Cardiovascular auscultation of heart Murmur: previously known murmur unchanged 12/03/2015 None Full Exam - General Cardiovascular extremities Overall: no clubbing 12/03/2015 None Full Exam - General Cardiovascular extremities Overall: No edema 12/03/2015 None Full Exam - General Cardiovascular extremities Overall: No cyanosis 12/03/2015 None Full Exam - General Cardiovascular extremities Cold: toes 06/24/2015 None Full Exam - General Neurologic sensation Touch: (specify location of deficit): light touch - anterior-lateral aspect of both feet. 06/24/2015 None Full Exam - General Neurologic sensation Touch: (specify location of deficit): decreased 06/24/2015 None Full Exam - General Musculoskeletal right lower extremity Palpation - right foot: a normal exam 06/24/2015 None Full Exam - General Musculoskeletal right lower extremity ROM - right foot: a normal exam 06/24/2015 None Full Exam - General Musculoskeletal right lower extremity Stability - right foot: a normal exam 06/24/2015 None Full Exam - General Musculoskeletal left lower extremity ROM - left foot: a normal exam 06/24/2015 None Full Exam - General Musculoskeletal left lower extremity Palpation - left foot: a normal exam 06/24/2015 None Full Exam - General Musculoskeletal left lower extremity Inspection - left foot: a normal exam 06/24/2015 None Full Exam - General Musculoskeletal right lower extremity Inspection - right foot: a normal exam 06/24/2015 None Full Exam - General Musculoskeletal left lower extremity Stability - left foot: a normal exam 06/24/2015 None Full Exam - General Constitutional general appearance Nourishment: obese 06/24/2015 None Full Exam - General Constitutional general appearance Overall: well developed 06/24/2015 None Full Exam - General Constitutional general appearance Overall: in no acute distress 06/24/2015 None Full Exam - General Respiratory auscultation Overall: breath sounds clear bilater ally 06/24/2015 None Full Exam - General Psychiatric mood and affect Overall: normal mood and affect 06/24/2015 None Full Exam - General Neurologic mental status Overall: alert 6 None Full Exam - General Neurologic mental status Overall: oriented 06/24/2015 None Full Exam - General Constitutional general appearance Overall: well nourished 06/11/2015 None Full Exam - General Constitutional general appearance Overall: well developed 06/11/2015 None Full Exam - General Constitutional general appearance Overall: in no acute distress 06/11/2015 None Full Exam - General Ears/Nose/Throat otoscopic exam Overall: external auditory canals clear 06/11/2015 None Full Exam - General Ears/Nose/Throat otoscopic exam Left tympanic membrane: air- fluid level 06/11/2015 None Full Exam - General Ears/Nose/Throat otoscopic exam Right tympanic membrane: air- fluid level 06/11/2015 None Full Exam - General Ears/Nose/Throat internal nose Turbinates: erythema 06/11/2015 None Full Exam - General Ears/Nose/Throat internal nose Turbinates: hypertrophy 06/11/2015 None Full Exam - General Ears/Nose/Throat internal nose Drainage: cloudy 06/11/2015 None Full Exam - General Ears/Nose/Throat oral cavity/pharynx/larynx Oropharynx: postnasal drainage 06/11/2015 None Full Exam - General Neck inspection of neck Overall: normal size 06/11/2015 None Full Exam - General Neck inspection of neck Overall: no masses 06/11/2015 None Full Exam - General Respiratory auscultation Overall: breath sounds clear bilater ally 06/11/2015 None Full Exam - General Cardiovascular auscultation of heart Overall: regular rate 06/11/2015 None Full Exam - General Cardiovascular auscultation of heart Overall: normal heart sounds 06/11/2015 None Full Exam - General Cardiovascular auscultation of heart Overall: no murmurs 06/11/2015 None Full Exam - General Lymphatic neck nodes Left anterior cervical chain: shotty 06/11/2015 None Full Exam - General Lymphatic neck nodes Left anterior cervical chain: tender 06/11/2015 None Full Exam - General Lymphatic neck nodes Right anterior cervical chain: shott y 06/11/2015 None Full Exam - General Lymphatic neck nodes Right anterior cervical chain: tende r 06/11/2015 None Full Exam - General Neurologic mental status Overall: alert 5 None Full Exam - General Neurologic mental status Overall: oriented 06/11/2015 None Full Exam - General Psychiatric mood and affect Overall: normal mood and affect 06/11/2015 None Full Exam - General Ears/Nose/Throat otoscopic exam Left tympanic membrane: erythematous 06/11/2015 None Full Exam - General Ears/Nose/Throat otoscopic exam Right tympanic membrane: erythematous 06/11/2015 None Full Exam - General Constitutional general appearance Overall: well nourished 07/17/2014 None Full Exam - General Constitutional general appearance Overall: well developed 07/17/2014 None Full Exam - General Constitutional general appearance Overall: in no acute distress 07/17/2014 None Full Exam - General Ears/Nose/Throat otoscopic exam Left tympanic membrane: a normal exam 07/17/2014 None Full Exam - General Ears/Nose/Throat otoscopic exam Right tympanic membrane: a normal exam 07/17/2014 None Full Exam - General Ears/Nose/Throat internal nose Turbinates: erythema 07/17/2014 None Full Exam - General Ears/Nose/Throat oral cavity/pharynx/larynx Oropharynx: a normal exam 07/17/2014 None Full Exam - General Respiratory auscultation Overall: breath sounds clear bilater ally 07/17/2014 None Full Exam - General Cardiovascular auscultation of heart Overall: regular rate 07/17/2014 None Full Exam - General Cardiovascular auscultation of heart Overall: normal heart sounds 07/17/2014 None Full Exam - General Cardiovascular auscultation of heart Overall: no murmurs 07/17/2014 None Full Exam - General Neck thyroid Overall: normal size 10/2014 None Full Exam - General Neck thyroid Overall: nontender 07/17 None Full Exam - General Neck thyroid Overall: no mass lesions 07/17/2014 None Full Exam - General Neck thyroid Overall: normal consistency 07/17/2014 None Full Exam - General Psychiatric mood and affect Overall: normal mood and affect 07/17/2014 None Full Exam - General Neurologic mental status Overall: alert 5 None Full Exam - General Neurologic mental status Overall: oriented 07/17/2014 None Full Exam - General Cardiovascular extremities Overall: no clubbing 07/17/2014 None Full Exam - General Cardiovascular extremities Overall: No edema 07/17/2014 None Full Exam - General Cardiovascular extremities Overall: No cyanosis 07/17/2014 None Full Exam - General Constitutional general appearance Overall: well nourished 10/31/2013 None Full Exam - General Constitutional general appearance Overall: well developed 10/31/2013 None Full Exam - General Constitutional general appearance Overall: in no acute distress 10/31/2013 None Full Exam - General Neurologic mental status Overall: alert 4 None Full Exam - General Neurologic mental status Overall: oriented 10/31/2013 None Full Exam - General Psychiatric mood and affect Overall: normal mood and affect 10/31/2013 None Full Exam - General Respiratory auscultation Overall: breath sounds clear bilater ally 10/31/2013 None Full Exam - General Cardiovascular auscultation of heart Overall: regular rate 10/31/2013 None Full Exam - General Cardiovascular auscultation of heart Overall: normal heart sounds 10/31/2013 None Full Exam - General Cardiovascular auscultation of heart S3 (ventricular gallop): present 10/31/2013 None Full Exam - General Cardiovascular extremities Overall: no clubbing 10/31/2013 None Full Exam - General Cardiovascular extremities Overall: No edema 10/31/2013 None Full Exam - General Cardiovascular extremities Overall: No cyanosis 10/31/2013 None Full Exam - General Constitutional general appearance Overall: well nourished 08/01/2013 None Full Exam - General Constitutional general appearance Overall: well developed 08/01/2013 None Full Exam - General Constitutional general appearance Overall: in no acute distress 08/01/2013 None Full Exam - General Neurologic mental status Overall: alert 4 None Full Exam - General Neurologic mental status Overall: oriented 08/01/2013 None Full Exam - General Psychiatric mood and affect Overall: normal mood and affect 08/01/2013 None Full Exam - General Respiratory auscultation Overall: breath sounds clear bilater ally 08/01/2013 None Full Exam - General Cardiovascular auscultation of heart Overall: regular rate 08/01/2013 None Full Exam - General Cardiovascular auscultation of heart Overall: normal heart sounds 08/01/2013 None Full Exam - General Cardiovascular auscultation of heart S3 (ventricular gallop): present 08/01/2013 None Full Exam - General Cardiovascular auscultation of heart Murmur: previously known murmur unchanged 08/01/2013 None Full Exam - General Cardiovascular extremities Overall: no clubbing 08/01/2013 None Full Exam - General Cardiovascular extremities Overall: No edema 08/01/2013 None Full Exam - General Cardiovascular extremities Overall: No cyanosis 08/01/2013 None Full Exam - General Abdomen abdominal exam Overall: no masses 08/01/2013 None Full Exam - General Abdomen abdominal exam Overall: normal bowel sounds 08/01/2013 None Full Exam - General Abdomen abdominal exam Overall: soft 08/01/2013 None Full Exam - General Constitutional general appearance Overall: well developed 07/30/2013 None Full Exam - General Constitutional general appearance Overall: in no acute distress 07/30/2013 None Full Exam - General Constitutional general appearance Nourishment: obese 07/30/2013 None Full Exam - General Ears/Nose/Throat external ear Overall: normal appearance 07/30/2013 None Full Exam - General Abdomen abdominal exam Overall: soft 07/30/2013 None Full Exam - General Abdomen abdominal exam Overall: no masses 07/30/2013 None Full Exam - General Abdomen abdominal exam Right lower quadrant: tender to palp ation 07/30/2013 None Full Exam - General Psychiatric orientation/consciousness Overall: oriented to person, place and time 07/30/2013 None Full Exam - General Respiratory auscultation Overall: breath sounds clear bilater ally 07/30/2013 None Full Exam - General Lymphatic neck nodes Overall: anterior cervical chain kassie ign 07/30/2013 None Full Exam - General Lymphatic neck nodes Overall: posterior cervical chain be nign 07/30/2013 None Full Exam - General Abdomen abdominal exam Contour: rounded 014 None Full Exam - General Abdomen abdominal exam Skin: presence of a scar 07/30/2013 Rt. side of abdomen Full Exam - General Cardiovascular auscultation of heart Overall: regular rate 07/30/2013 None Full Exam - General Cardiovascular auscultation of heart Overall: normal heart sounds 07/30/2013 None Full Exam - General Constitutional general appearance Overall: well nourished 05/30/2013 None Full Exam - General Constitutional general appearance Overall: in no acute distress 05/30/2013 None Full Exam - General Constitutional general appearance Overall: well developed 05/30/2013 None Full Exam - General Neurologic mental status Overall: alert 3 None Full Exam - General Neurologic mental status Overall: oriented 05/30/2013 None Full Exam - General Psychiatric mood and affect Overall: normal mood and affect 05/30/2013 None Full Exam - General Respiratory auscultation Overall: breath sounds clear bilater ally 05/30/2013 None Full Exam - General Cardiovascular auscultation of heart Overall: regular rate 05/30/2013 None Full Exam - General Cardiovascular auscultation of heart Overall: normal heart sounds 05/30/2013 None Full Exam - General Cardiovascular auscultation of heart S3 (ventricular gallop): present 05/30/2013 None Full Exam - General Cardiovascular extremities Overall: no clubbing 05/30/2013 None Full Exam - General Cardiovascular extremities Overall: No edema 05/30/2013 None Full Exam - General Cardiovascular extremities Overall: No cyanosis 05/30/2013 None Full Exam - General Constitutional general appearance Overall: well nourished 04/29/2013 None Full Exam - General Constitutional general appearance Overall: well developed 04/29/2013 None Full Exam - General Constitutional general appearance Overall: in no acute distress 04/29/2013 None Full Exam - General Neurologic mental status Overall: alert 3 None Full Exam - General Neurologic mental status Overall: oriented 04/29/2013 None Full Exam - General Psychiatric mood and affect Mood: depressed 04/29/2013 None Full Exam - General Psychiatric mood and affect Affect: flat 04/29/2013 None Full Exam - General Psychiatric mood and affect Affect: constricted 04/29/2013 None Full Exam - General Respiratory auscultation Overall: breath sounds clear bilater ally 04/29/2013 None Full Exam - General Cardiovascular auscultation of heart Overall: regular rate 04/29/2013 None Full Exam - General Cardiovascular auscultation of heart Overall: normal heart sounds 04/29/2013 None Full Exam - General Cardiovascular auscultation of heart S3 (ventricular gallop): present 04/29/2013 None Full Exam - General Constitutional general appearance Overall: well nourished 02/27/2013 None Full Exam - General Constitutional general appearance Overall: well developed 02/27/2013 None Full Exam - General Constitutional general appearance Overall: in no acute distress 02/27/2013 None Full Exam - General Neurologic mental status Overall: alert 3 None Full Exam - General Neurologic mental status Overall: oriented 02/27/2013 None Full Exam - General Psychiatric mood and affect Overall: normal mood and affect 02/27/2013 None Full Exam - General Respiratory auscultation Overall: breath sounds clear bilater ally 02/27/2013 None Full Exam - General Cardiovascular auscultation of heart Overall: regular rate 02/27/2013 None Full Exam - General Cardiovascular auscultation of heart Overall: normal heart sounds 02/27/2013 None Full Exam - General Cardiovascular auscultation of heart S3 (ventricular gallop): present 02/27/2013 None Full Exam - General Cardiovascular auscultation of heart Murmur: previously known murmur unchanged 02/27/2013 None Full Exam - General Constitutional general appearance Nourishment: obese 01/01/2013 None Full Exam - General Constitutional general appearance Overall: well developed 01/01/2013 None Full Exam - General Constitutional general appearance Overall: in no acute distress 01/01/2013 None Full Exam - General Respiratory auscultation Overall: breath sounds clear bilater ally 01/01/2013 None Full Exam - General Respiratory respiratory effort/rhythm Overall: no retractions 01/01/2013 None Full Exam - General Respiratory respiratory effort/rhythm Overall: normal rate 01/01/2013 None Full Exam - General Cardiovascular auscultation of heart Overall: regular rate 01/01/2013 None Full Exam - General Cardiovascular auscultation of heart Overall: normal heart sounds 01/01/2013 None Full Exam - General Integument inspection of skin Dermatitis: erythema 01/01/2013 around nail bed of right great toe Full Exam - General Integument inspection of skin Dermatitis: dryness/flaking 01/01/2013 dry, red irritated skin b etween toes Full Exam - General Integument inspection of skin Dermatitis: thickened 01/01/2013 rt great toe nail is yell owed/thickened and fluoresces with olivares lamp Full Exam - General Psychiatric orientation/consciousness Overall: oriented to person, place and time 01/01/2013 None Full Exam - General Constitutional general appearance Overall: well nourished 11/27/2012 None Full Exam - General Constitutional general appearance Overall: well developed 11/27/2012 None Full Exam - General Constitutional general appearance Overall: in no acute distress 11/27/2012 None Full Exam - General Neurologic mental status Overall: alert 3 None Full Exam - General Neurologic mental status Overall: oriented 11/27/2012 None Full Exam - General Psychiatric mood and affect Overall: normal mood and affect 11/27/2012 None Full Exam - General Respiratory auscultation Overall: breath sounds clear bilater ally 11/27/2012 None Full Exam - General Cardiovascular auscultation of heart Overall: regular rate 11/27/2012 None Full Exam - General Cardiovascular auscultation of heart Overall: normal heart sounds 11/27/2012 None Full Exam - General Cardiovascular auscultation of heart S3 (ventricular gallop): present 11/27/2012 None Full Exam - General Cardiovascular auscultation of heart Murmur: previously known murmur unchanged 11/27/2012 None Full Exam - General Cardiovascular extremities Overall: no clubbing 11/27/2012 None Full Exam - General Cardiovascular extremities Overall: No edema 11/27/2012 None Full Exam - General Cardiovascular extremities Overall: No cyanosis 11/27/2012 None Full Exam - General Abdomen abdominal exam Overall: no masses 11/27/2012 None Full Exam - General Abdomen abdominal exam Overall: no tenderness 11/27/2012 None Full Exam - General Abdomen abdominal exam Overall: normal bowel sounds 11/27/2012 None Full Exam - General Abdomen abdominal exam Overall: soft 11/27/2012 None Full Exam - General Constitutional general appearance Overall: well nourished 08/28/2012 None Full Exam - General Constitutional general appearance Overall: well developed 08/28/2012 None Full Exam - General Constitutional general appearance Overall: in no acute distress 08/28/2012 None Full Exam - General Neurologic mental status Overall: alert 3 None Full Exam - General Neurologic mental status Overall: oriented 08/28/2012 None Full Exam - General Psychiatric mood and affect Overall: normal mood and affect 08/28/2012 None Full Exam - General Abdomen abdominal exam Overall: no masses 08/28/2012 None Full Exam - General Abdomen abdominal exam Overall: no tenderness 08/28/2012 None Full Exam - General Abdomen abdominal exam Overall: normal bowel sounds 08/28/2012 None Full Exam - General Abdomen abdominal exam Overall: soft 08/28/2012 None Full Exam - General Respiratory auscultation Overall: breath sounds clear bilater ally 08/28/2012 None Full Exam - General Cardiovascular auscultation of heart Overall: normal heart sounds 08/28/2012 None Full Exam - General Cardiovascular auscultation of heart Overall: regular rate 08/28/2012 None Full Exam - General Cardiovascular auscultation of heart S3 (ventricular gallop): present 08/28/2012 None Full Exam - General Cardiovascular auscultation of heart Murmur: previously known murmur unchanged 08/28/2012 None Full Exam - General Cardiovascular extremities Overall: no clubbing 08/28/2012 None Full Exam - General Cardiovascular extremities Overall: No edema 08/28/2012 None Full Exam - General Cardiovascular extremities Overall: No cyanosis 08/28/2012 None Full Exam - General Constitutional general appearance Overall: in no acute distress 07/03/2012 None Full Exam - General Constitutional general appearance Overall: well developed 07/03/2012 None Full Exam - General Constitutional general appearance Overall: well nourished 07/03/2012 None Full Exam - General Neurologic mental status Overall: alert 3 None Full Exam - General Neurologic mental status Overall: oriented 07/03/2012 None Full Exam - General Psychiatric mood and affect Overall: normal mood and affect 07/03/2012 None Full Exam - General Constitutional general appearance Overall: well nourished 06/21/2012 None Full Exam - General Constitutional general appearance Overall: well developed 06/21/2012 None Full Exam - General Constitutional general appearance Overall: in no acute distress 06/21/2012 None Full Exam - General Neurologic mental status Overall: alert 3 None Full Exam - General Neurologic mental status Overall: oriented 06/21/2012 None Full Exam - General Psychiatric mood and affect Overall: normal mood and affect 06/21/2012 None Full Exam - General Respiratory auscultation Overall: breath sounds clear bilater ally 06/21/2012 None Full Exam - General Cardiovascular auscultation of heart Overall: regular rate 06/21/2012 None Full Exam - General Cardiovascular auscultation of heart Overall: normal heart sounds 06/21/2012 None Full Exam - General Cardiovascular auscultation of heart S3 (ventricular gallop): present 06/21/2012 None Full Exam - General Cardiovascular extremities Overall: no clubbing 06/21/2012 None Full Exam - General Cardiovascular extremities Overall: No edema 06/21/2012 None Full Exam - General Cardiovascular extremities Overall: No cyanosis 06/21/2012 None Full Exam - General Constitutional general appearance Overall: well nourished 05/30/2012 None Full Exam - General Constitutional general appearance Overall: in no acute distress 05/30/2012 None Full Exam - General Constitutional general appearance Overall: well developed 05/30/2012 None Full Exam - General Neurologic mental status Overall: alert 2 None Full Exam - General Neurologic mental status Overall: oriented 05/30/2012 None Full Exam - General Psychiatric mood and affect Overall: normal mood and affect 05/30/2012 None Full Exam - General Respiratory auscultation Overall: breath sounds clear bilater ally 05/30/2012 None Full Exam - General Cardiovascular auscultation of heart Overall: regular rate 05/30/2012 None Full Exam - General Cardiovascular auscultation of heart Overall: normal heart sounds 05/30/2012 None Full Exam - General Cardiovascular auscultation of heart Overall: no murmurs 05/30/2012 None Full Exam - General Integument inspection of skin Location: right arm 05/30/2012 forearm sore healing Full Exam - General Constitutional general appearance Overall: well nourished 05/21/2012 None Full Exam - General Constitutional general appearance Overall: well developed 05/21/2012 None Full Exam - General Constitutional general appearance Overall: in no acute distress 05/21/2012 None Full Exam - General Respiratory auscultation Overall: breath sounds clear bilater ally 05/21/2012 None Full Exam - General Cardiovascular auscultation of heart Overall: regular rate 05/21/2012 None Full Exam - General Cardiovascular auscultation of heart Overall: normal heart sounds 05/21/2012 None Full Exam - General Cardiovascular auscultation of heart S3 (ventricular gallop): present 05/21/2012 None Full Exam - General Cardiovascular auscultation of heart Murmur: previously known murmur unchanged 05/21/2012 None Full Exam - General Neurologic mental status Overall: alert 2 None Full Exam - General Neurologic mental status Overall: oriented 05/21/2012 None Full Exam - General Neurologic deep tendon reflexes Overall: deep tendon reflexes intact 05/21/2012 None Full Exam - General Psychiatric mood and affect Overall: normal mood and affect 05/21/2012 None Full Exam - General Constitutional general appearance Overall: well nourished 01/24/2012 None Full Exam - General Constitutional general appearance Overall: well developed 01/24/2012 None Full Exam - General Constitutional general appearance Overall: in no acute distress 01/24/2012 None Full Exam - General Neurologic mental status Overall: alert 2 None Full Exam - General Neurologic mental status Overall: oriented 01/24/2012 None Full Exam - General Psychiatric mood and affect Overall: normal mood and affect 01/24/2012 None Full Exam - General Respiratory auscultation Overall: breath sounds clear bilater ally 01/24/2012 None Full Exam - General Cardiovascular auscultation of heart Overall: regular rate 01/24/2012 None Full Exam - General Cardiovascular auscultation of heart Overall: normal heart sounds 01/24/2012 None Full Exam - General Cardiovascular auscultation of heart S3 (ventricular gallop): present 01/24/2012 None Full Exam - General Cardiovascular auscultation of heart Murmur: previously known murmur unchanged 01/24/2012 None Full Exam - General Constitutional general appearance Overall: well nourished 09/21/2011 None Full Exam - General Constitutional general appearance Overall: well developed 09/21/2011 None Full Exam - General Constitutional general appearance Overall: in no acute distress 09/21/2011 None Full Exam - General Neurologic mental status Overall: alert 2 None Full Exam - General Neurologic mental status Overall: oriented 09/21/2011 None Full Exam - General Psychiatric mood and affect Overall: normal mood and affect 09/21/2011 None Full Exam - General Respiratory auscultation Right upper lung field: a normal exa m 09/21/2011 None Full Exam - General Respiratory auscultation Right middle lung field: a normal ex am 09/21/2011 None Full Exam - General Respiratory auscultation Right lower lung field: a normal exa m 09/21/2011 None Full Exam - General Respiratory auscultation Left lower lung field: a normal exam 09/21/2011 None Full Exam - General Respiratory auscultation Overall: breath sounds clear bilater ally 09/21/2011 None Full Exam - General Respiratory auscultation Left upper lung field: a normal exam 09/21/2011 None Full Exam - General Respiratory auscultation Diffuse: a normal exam 09/21/2011 None Full Exam - General Cardiovascular auscultation of heart Overall: no murmurs 09/21/2011 None Full Exam - General Cardiovascular auscultation of heart Overall: regular rate 09/21/2011 None Full Exam - General Cardiovascular auscultation of heart Overall: normal heart sounds 09/21/2011 None Full Exam - General Cardiovascular auscultation of heart S1: a normal exam 09/21/2011 None Full Exam - General Cardiovascular auscultation of heart S2: a normal exam 09/21/2011 None Full Exam - General Cardiovascular auscultation of heart Rhythm: regular rhythm 09/21/2011 None Full Exam - General Cardiovascular auscultation of heart Rate: regular rate 09/21/2011 None Full Exam - General Cardiovascular auscultation of heart S3 (ventricular gallop): present 09/21/2011 None Full Exam - General Cardiovascular extremities Overall: no clubbing 09/21/2011 None Full Exam - General Cardiovascular extremities Overall: No edema 09/21/2011 None Full Exam - General Cardiovascular extremities Overall: No cyanosis 09/21/2011 None Full Exam - General Constitutional general appearance Overall: well nourished 09/12/2011 None Full Exam - General Constitutional general appearance Overall: well developed 09/12/2011 None Full Exam - General Constitutional general appearance Overall: in no acute distress 09/12/2011 None Full Exam - General Neurologic mental status Overall: alert 2 None Full Exam - General Neurologic mental status Overall: oriented 09/12/2011 None Full Exam - General Psychiatric mood and affect Overall: normal mood and affect 09/12/2011 None Full Exam - General Respiratory auscultation Right upper lung field: a normal exa m 09/12/2011 None Full Exam - General Respiratory auscultation Right middle lung field: a normal ex am 09/12/2011 None Full Exam - General Respiratory auscultation Right lower lung field: a normal exa m 09/12/2011 None Full Exam - General Respiratory auscultation Left lower lung field: a normal exam 09/12/2011 None Full Exam - General Respiratory auscultation Overall: breath sounds clear bilater ally 09/12/2011 None Full Exam - General Respiratory auscultation Left upper lung field: a normal exam 09/12/2011 None Full Exam - General Respiratory auscultation Diffuse: a normal exam 09/12/2011 None Full Exam - General Cardiovascular auscultation of heart Overall: no murmurs 09/12/2011 None Full Exam - General Cardiovascular auscultation of heart Overall: regular rate 09/12/2011 None Full Exam - General Cardiovascular auscultation of heart Overall: normal heart sounds 09/12/2011 None Full Exam - General Cardiovascular auscultation of heart S1: a normal exam 09/12/2011 None Full Exam - General Cardiovascular auscultation of heart S2: a normal exam 09/12/2011 None Full Exam - General Cardiovascular auscultation of heart Rhythm: regular rhythm 09/12/2011 None Full Exam - General Cardiovascular auscultation of heart Rate: regular rate 09/12/2011 None Full Exam - General Cardiovascular auscultation of heart S3 (ventricular gallop): present 09/12/2011 None Full Exam - General Cardiovascular extremities Overall: no clubbing 09/12/2011 None Full Exam - General Cardiovascular extremities Overall: No edema 09/12/2011 None Full Exam - General Cardiovascular extremities Overall: No cyanosis 09/12/2011 None Full Exam - General Cardiovascular extremities Overall: no clubbing 06/14/2011 None Full Exam - General Cardiovascular extremities Overall: No edema 06/14/2011 None Full Exam - General Cardiovascular extremities Overall: No cyanosis 06/14/2011 None Full Exam - General Abdomen abdominal exam Overall: no masses 06/14/2011 None Full Exam - General Abdomen abdominal exam Overall: no tenderness 06/14/2011 None Full Exam - General Abdomen abdominal exam Overall: normal bowel sounds 06/14/2011 None Full Exam - General Abdomen abdominal exam Overall: soft 06/14/2011 None Full Exam - General Ears/Nose/Throat otoscopic exam Overall: external auditory canals clear 06/14/2011 None Full Exam - General Ears/Nose/Throat otoscopic exam Overall: tympanic membranes clear 06/14/2011 None Full Exam - General Ears/Nose/Throat internal nose Turbinates: hypertrophy 06/14/2011 None Full Exam - General Ears/Nose/Throat oral cavity/pharynx/larynx Overall: oral mucosa clear 06/14/2011 None Full Exam - General Respiratory auscultation Left lower lung field: a normal exam 06/14/2011 None Full Exam - General Respiratory auscultation Overall: breath sounds clear bilater ally 06/14/2011 None Full Exam - General Respiratory auscultation Left upper lung field: a normal exam 06/14/2011 None Full Exam - General Respiratory auscultation Diffuse: a normal exam 06/14/2011 None Full Exam - General Cardiovascular auscultation of heart Overall: no murmurs 06/14/2011 None Full Exam - General Cardiovascular auscultation of heart Overall: regular rate 06/14/2011 None Full Exam - General Cardiovascular auscultation of heart Overall: normal heart sounds 06/14/2011 None Full Exam - General Cardiovascular auscultation of heart S1: a normal exam 06/14/2011 None Full Exam - General Cardiovascular auscultation of heart S2: a normal exam 06/14/2011 None Full Exam - General Cardiovascular auscultation of heart Rhythm: regular rhythm 06/14/2011 None Full Exam - General Cardiovascular auscultation of heart Rate: regular rate 06/14/2011 None Full Exam - General Cardiovascular auscultation of heart S3 (ventricular gallop): present 06/14/2011 None Full Exam - General Neurologic mental status Overall: alert 2 None Full Exam - General Neurologic mental status Overall: oriented 06/14/2011 None Full Exam - General Psychiatric mood and affect Overall: normal mood and affect 06/14/2011 None Full Exam - General Constitutional general appearance Overall: in no acute distress 06/14/2011 None Full Exam - General Constitutional general appearance Overall: well developed 06/14/2011 None Full Exam - General Constitutional general appearance Overall: well nourished 06/14/2011 None Full Exam - General Respiratory auscultation Right upper lung field: a normal exa m 06/14/2011 None Full Exam - General Respiratory auscultation Right middle lung field: a normal ex am 06/14/2011 None Full Exam - General Respiratory auscultation Right lower lung field: a normal exa m 06/14/2011 None Full Exam - General Cardiovascular extremities Edema present: non-pitting 03/03/2011 None Full Exam - General Neurologic mental status Overall: alert 1 None Full Exam - General Neurologic mental status Overall: oriented 03/03/2011 None Full Exam - General Psychiatric mood and affect Overall: normal mood and affect 03/03/2011 None Full Exam - General Respiratory auscultation Right lower lung field: a normal exa m 03/03/2011 None Full Exam - General Respiratory auscultation Left lower lung field: a normal exam 03/03/2011 None Full Exam - General Respiratory auscultation Overall: breath sounds clear bilater ally 03/03/2011 None Full Exam - General Respiratory auscultation Left upper lung field: a normal exam 03/03/2011 None Full Exam - General Respiratory auscultation Diffuse: a normal exam 03/03/2011 None Full Exam - General Cardiovascular auscultation of heart Overall: no murmurs 03/03/2011 None Full Exam - General Cardiovascular auscultation of heart Overall: regular rate 03/03/2011 None Full Exam - General Cardiovascular auscultation of heart Overall: normal heart sounds 03/03/2011 None Full Exam - General Cardiovascular auscultation of heart S1: a normal exam 03/03/2011 None Full Exam - General Cardiovascular auscultation of heart S2: a normal exam 03/03/2011 None Full Exam - General Cardiovascular auscultation of heart Rhythm: regular rhythm 03/03/2011 None Full Exam - General Cardiovascular auscultation of heart Rate: regular rate 03/03/2011 None Full Exam - General Cardiovascular auscultation of heart S3 (ventricular gallop): present 03/03/2011 None Full Exam - General Cardiovascular extremities Overall: no clubbing 03/03/2011 None Full Exam - General Cardiovascular extremities Overall: No cyanosis 03/03/2011 None Full Exam - General Constitutional general appearance Overall: in no acute distress 03/03/2011 None Full Exam - General Constitutional general appearance Overall: well developed 03/03/2011 None Full Exam - General Constitutional general appearance Overall: well nourished 03/03/2011 None Full Exam - General Ears/Nose/Throat otoscopic exam Overall: external auditory canals clear 03/03/2011 None Full Exam - General Ears/Nose/Throat otoscopic exam Overall: tympanic membranes clear 03/03/2011 None Full Exam - General Ears/Nose/Throat internal nose Overall: bilateral nasal cavities clear 03/03/2011 None Full Exam - General Ears/Nose/Throat oral cavity/pharynx/larynx Overall: oral mucosa clear 03/03/2011 None Full Exam - General Respiratory auscultation Right upper lung field: a normal exa m 03/03/2011 None Full Exam - General Respiratory auscultation Right middle lung field: a normal ex am 03/03/2011 None Full Exam - General Constitutional general appearance Overall: in no acute distress 01/27/2011 None Full Exam - General Constitutional general appearance Overall: well developed 01/27/2011 None Full Exam - General Constitutional general appearance Overall: well nourished 01/27/2011 None Full Exam - General Neurologic mental status Overall: alert 1 None Full Exam - General Neurologic mental status Overall: oriented 01/27/2011 None Full Exam - General Psychiatric mood and affect Overall: normal mood and affect 01/27/2011 None Full Exam - General Respiratory auscultation Right upper lung field: a normal exa m 01/27/2011 None Full Exam - General Respiratory auscultation Right middle lung field: a normal ex am 01/27/2011 None Full Exam - General Respiratory auscultation Right lower lung field: a normal exa m 01/27/2011 None Full Exam - General Respiratory auscultation Left lower lung field: a normal exam 01/27/2011 None Full Exam - General Respiratory auscultation Overall: breath sounds clear bilater ally 01/27/2011 None Full Exam - General Respiratory auscultation Left upper lung field: a normal exam 01/27/2011 None Full Exam - General Respiratory auscultation Diffuse: a normal exam 01/27/2011 None Full Exam - General Cardiovascular auscultation of heart Overall: no murmurs 01/27/2011 None Full Exam - General Cardiovascular auscultation of heart Overall: regular rate 01/27/2011 None Full Exam - General Cardiovascular auscultation of heart Overall: normal heart sounds 01/27/2011 None Full Exam - General Cardiovascular auscultation of heart S1: a normal exam 01/27/2011 None Full Exam - General Cardiovascular auscultation of heart S2: a normal exam 01/27/2011 None Full Exam - General Cardiovascular auscultation of heart Rhythm: regular rhythm 01/27/2011 None Full Exam - General Cardiovascular auscultation of heart Rate: regular rate 01/27/2011 None Full Exam - General Cardiovascular auscultation of heart S3 (ventricular gallop): present 01/27/2011 None Full Exam - General Ears/Nose/Throat otoscopic exam Overall: external auditory canals clear 01/27/2011 None Full Exam - General Ears/Nose/Throat otoscopic exam Overall: tympanic membranes clear 01/27/2011 None Full Exam - General Ears/Nose/Throat internal nose Turbinates: erythema 01/27/2011 None Full Exam - General Ears/Nose/Throat internal nose Turbinates: hypertrophy 01/27/2011 None Full Exam - General Ears/Nose/Throat oral cavity/pharynx/larynx Overall: oral mucosa clear 01/27/2011 None Full Exam - General Constitutional general appearance Overall: well nourished 12/02/2010 None Full Exam - General Constitutional general appearance Overall: well developed 12/02/2010 None Full Exam - General Constitutional general appearance Overall: in no acute distress 12/02/2010 None Full Exam - General Neurologic mental status Overall: alert 1 None Full Exam - General Neurologic mental status Overall: oriented 12/02/2010 None Full Exam - General Psychiatric mood and affect Overall: normal mood and affect 12/02/2010 None Full Exam - General Respiratory auscultation Overall: breath sounds clear bilater ally 12/02/2010 None Full Exam - General Respiratory auscultation Diffuse: a normal exam 12/02/2010 None Full Exam - General Respiratory auscultation Left upper lung field: a normal exam 12/02/2010 None Full Exam - General Respiratory auscultation Left lower lung field: a normal exam 12/02/2010 None Full Exam - General Respiratory auscultation Right upper lung field: a normal exa m 12/02/2010 None Full Exam - General Respiratory auscultation Right middle lung field: a normal ex am 12/02/2010 None Full Exam - General Respiratory auscultation Right lower lung field: a normal exa m 12/02/2010 None Full Exam - General Cardiovascular auscultation of heart Overall: regular rate 12/02/2010 None Full Exam - General Cardiovascular auscultation of heart Overall: normal heart sounds 12/02/2010 None Full Exam - General Cardiovascular auscultation of heart Overall: no murmurs 12/02/2010 None Full Exam - General Cardiovascular auscultation of heart Rate: regular rate 12/02/2010 None Full Exam - General Cardiovascular auscultation of heart Rhythm: regular rhythm 12/02/2010 None Full Exam - General Cardiovascular auscultation of heart S1: a normal exam 12/02/2010 None Full Exam - General Cardiovascular auscultation of heart S2: a normal exam 12/02/2010 None Full Exam - General Cardiovascular auscultation of heart S3 (ventricular gallop): present 12/02/2010 None Full Exam - General Cardiovascular extremities Overall: no clubbing 12/02/2010 None Full Exam - General Cardiovascular extremities Overall: No edema 12/02/2010 None Full Exam - General Cardiovascular extremities Overall: No cyanosis 12/02/2010 None Procedures Procedure Codes Date ROUTINE VENIPUNCTURE CPT-4: 43034 02/26/2019 A1C HPLC CPT-4: 60793 02/26/2019 MICROALBUMIN QUANTIT ATIVE CPT-4: 27927 02/26/2019 ROUTINE VENIPUNCTURE CPT-4: 20709 02/19/2019 METABOLIC PANEL TOTA L CA CPT-4: 34274 02/19/2019 MICROALBUMIN, QUANTI TATIVE CPT-4: 68856 02/19/2019 LIPID PANEL CPT-4: 56224 02/19/2019 COMPREHEN METABOLIC PANEL CPT-4: 47862 02/19/2019 ASSAY OF MAGNESIUM CPT- 4: 64655 02/19/2019 METABOLIC PANEL TOTA L CA CPT-4: 16638 08/24/2018 COMPREHEN METABOLIC PANEL CPT-4: 97564 08/24/2018 ASSAY OF MAGNESIUM CPT- 4: 75872 08/24/2018 MICROALBUMIN QUANTIT ATIVE CPT-4: 83484 08/24/2018 PROTEIN/CREAT URINE WITH RATIO CPT-4: 24685|83055 08/24/2018 PHOSPHORUS CPT-4: 8090406 08/24/2018 LIPID PANEL CPT-4: 39421 08/24/2018 ROUTINE VENIPUNCTURE CPT-4: 39409 06/29/2018 A1C HPLC CPT-4: 55463 06/29/2018 URINALYSIS NONAUTO W /O SCOPE CPT-4: 93372 02/06/2018 URINE CULTURE/ COLON Y COUNT CPT-4: 60555 02/06/2018 MICROALBUMIN QUANTIT ATIVE CPT-4: 14443 02/06/2018 ROUTINE VENIPUNCTURE CPT-4: 20148 02/06/2018 COMPREHEN METABOLIC PANEL CPT-4: 69878 02/06/2018 A1C HPLC CPT-4: 59145 02/06/2018 ROUTINE VENIPUNCTURE CPT-4: 20689 11/02/2017 COMPREHEN METABOLIC PANEL CPT-4: 21655 11/02/2017 A1C HPLC CPT-4: 04422 11/02/2017 TDAP VACCINE 7 YRS/> IM CPT-4: 69425 07/27/2017 IMMUNIZATION ADMIN CPT- 4: 73364 07/27/2017 URINALYSIS NONAUTO W /O SCOPE CPT-4: 05469 02/16/2016 URINE CULTURE/ COLON Y COUNT CPT-4: 78880 02/16/2016 PRESCRIP TRANSMIT A ERX SY CPT-4: G8553 02/16/2016 ROUTINE VENIPUNCTURE CPT-4: 86503 12/03/2015 ASSAY THYROID STIM H ORMONE CPT-4: 28056 12/03/2015 COMPREHEN METABOLIC PANEL CPT-4: 47068 12/03/2015 A1C HPLC CPT-4: 77928 12/03/2015 ASSAY OF MAGNESIUM CPT- 4: 97976 12/03/2015 URINALYSIS NONAUTO W /O SCOPE CPT-4: 82380 12/03/2015 URINE CULTURE/ COLON Y COUNT CPT-4: 87320 12/03/2015 URINALYSIS NONAUTO W /O SCOPE CPT-4: 56806 07/30/2013 URINE CULTURE/ COLON Y COUNT CPT-4: 98017 07/30/2013 ROUTINE VENIPUNCTURE CPT-4: 56744 07/30/2013 COMPLETE CBC W/AUTO DIFF WBC CPT-4: 05850 07/30/2013 COMPREHEN METABOLIC PANEL CPT-4: 89280 07/30/2013 C-REACTIVE PROTEIN CPT- 4: 55990 07/30/2013 ROUTINE VENIPUNCTURE CPT-4: 97761 08/20/2012 ASSAY OF FREE THYROXINE CPT-4: 94360 08/20/2012 ASSAY THYROID STIM H ORMONE CPT-4: 60522 08/20/2012 COMPREHEN METABOLIC PANEL CPT-4: 44761 08/20/2012 COMPLETE CBC W/AUTO DIFF WBC CPT-4: 15514 08/20/2012 LIPID PANEL CPT-4: 95535 08/20/2012 A1C GLYCOSYLATED HEM OGLOBIN TEST CPT-4: 51728 08/20/2012 ASSAY, GLUCOSE, BLOO D QUANT CPT-4: 99608 06/21/2012 ASSAY, GLUCOSE, BLOO D QUANT CPT-4: 27741 05/21/2012 ROUTINE VENIPUNCTURE CPT-4: 80433 05/21/2012 COMPREHEN METABOLIC PANEL CPT-4: 72942 05/21/2012 A1C GLYCOSYLATED HEM OGLOBIN TEST CPT-4: 36017 05/21/2012 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 CPT-4: G8456 06/14/2011 PT VIS DOC USE EHR C ER ATCB CPT-4: G8447 06/14/2011 PRESCRIP TRANSMIT A ERX SY CPT-4: G8553 06/14/2011 PT VIS DOC USE EHR C ER ATCB CPT-4: G8447 03/03/2011 PRESCRIP TRANSMIT A ERX SY CPT-4: G8553 03/03/2011 ROUTINE VENIPUNCTURE CPT-4: 05658 01/27/2011 ASSAY OF FREE THYROXINE CPT-4: 18078 01/27/2011 ASSAY THYROID STIM H ORMONE CPT-4: 35148 01/27/2011 PT VIS DOC USE EHR C ER ATCB CPT-4: G8447 01/27/2011 PRESCRIP TRANSMIT A ERX SY CPT-4: G8553 01/27/2011 TOBACCO USE ASSESSED CPT-4: 1000F 12/02/2010 INCOMPLETE DOC PT ON MEDS CPT-4: G8429 12/02/2010 PT VIS DOC USE EHR C ER ATCB CPT-4: G8447 12/02/2010 PRESCRIP TRANSMIT A ERX SY CPT-4: G8553 12/02/2010 Vital Signs Date Vital 02/26/2019 Blood Pressure 1: 136/94 Code: 8480-6 Heart Rate 1: 76 bpm SpO2: 98% Temperature: 36.8 (C ) / 98.2 (F) Weight: 255 lbs 06/26/2018 Blood Pressure 1: 140/90 Code: 8480-6 Heart Rate 1: 83 bpm Respiratory Rate: 18 bpm SpO2: 97% Temperature: 36.4 (C ) / 97.5 (F) Weight: 259 lbs 02/06/2018 Blood Pressure 1: 158/90 Code: 8480-6 BMI: 34.3 Code: 01228-8 Heart Rate 1: 78 bpm Height: 6'1" Respiratory Rate: 20 bpm SpO2: 98% Temperature: 36.6 (C ) / 97.8 (F) Weight: 260 lbs 11/02/2017 Blood Pressure 1: 134/92 Code: 8480-6 BMI: 32.3 Code: 65522-9 Heart Rate 1: 72 bpm Height: 6'1" SpO2: 98% Temperature: 36.4 (C ) / 97.5 (F) Weight: 245 lbs 07/27/2017 Blood Pressure 1: 136/64 Code: 8480-6 BMI: 30.9 Code: 34708-8 Heart Rate 1: 78 bpm Height: 6'1" Respiratory Rate: 22 bpm SpO2: 98% Temperature: 36.4 (C ) / 97.6 (F) Weight: 234 lbs 04/05/2017 Blood Pressure 1: 126/90 Code: 8480-6 BMI: 33.5 Code: 91982-4 Heart Rate 1: 76 bpm Height: 6'1" Respiratory Rate: 20 bpm SpO2: 97% Temperature: 37.0 (C ) / 98.6 (F) Weight: 254 lbs 06/20/2016 Blood Pressure 1: 122/74 Code: 8480-6 BMI: 35.2 Code: 73241-3 Heart Rate 1: 80 bpm Height: 6'1" Respiratory Rate: 20 bpm SpO2: 97% Temperature: 36.9 (C ) / 98.5 (F) Weight: 267 lbs 02/16/2016 Blood Pressure 1: 136/82 Code: 8480-6 BMI: 36.4 Code: 42467-9 Heart Rate 1: 66 bpm Height: 6'1" Respiratory Rate: 18 bpm SpO2: 96% Temperature: 36.4 (C ) / 97.6 (F) Weight: 276 lbs 12/03/2015 Blood Pressure 1: 122/86 Code: 8480-6 BMI: 39.2 Code: 28525-9 Heart Rate 1: 76 bpm Height: 6' Respiratory Rate: 20 bpm Temperature: 37.1 (C ) / 98.7 (F) Weight: 289 lbs 06/24/2015 Blood Pressure 1: 136/84 Code: 8480-6 BMI: 40.7 Code: 55234-9 Heart Rate 1: 84 bpm Height: 6' Respiratory Rate: 20 bpm Temperature: 36.9 (C ) / 98.4 (F) Weight: 300 lbs 06/11/2015 Blood Pressure 1: 160/82 Code: 8480-6 BMI: 40.4 Code: 09576-0 Heart Rate 1: 82 bpm Height: 6' Respiratory Rate: 22 bpm Temperature: 36.5 (C ) / 97.7 (F) Weight: 298 lbs 07/17/2014 Blood Pressure 1: 132/84 Code: 8480-6 BMI: 41.0 Code: 79009-8 Heart Rate 1: 76 bpm Height: 6'1" Respiratory Rate: 20 bpm Temperature: 36.9 (C ) / 98.4 (F) Weight: 311 lbs 10/31/2013 Blood Pressure 1: 132/80 Code: 8480-6 BMI: 41.2 Code: 49035-4 Heart Rate 1: 84 bpm Height: 6'1" Respiratory Rate: 22 bpm Temperature: 36.1 (C ) / 97.0 (F) Weight: 312 lbs 08/01/2013 Blood Pressure 1: 142/86 Code: 8480-6 BMI: 42.4 Code: 05691-4 Heart Rate 1: 84 bpm Height: 6' Respiratory Rate: 20 bpm Temperature: 36.7 (C ) / 98.1 (F) Weight: 313 lbs 07/30/2013 Blood Pressure 1: 128/88 Code: 8480-6 Heart Rate 1: 82 bpm Respiratory Rate: 20 bpm Temperature: 36.7 (C) / 98.0 (F) Weight: 313 lbs 05/30/2013 Blood Pressure 1: 158/102 Code: 8480-6 Heart Rate 1: 88 bpm Respiratory Rate: 20 bpm Temperature: 36.7 (C) / 98.0 (F) Weight: 309 lbs 04/29/2013 Blood Pressure 1: 156/108 Code: 8480-6 BMI: 41.9 Code: 32814-3 Heart Rate 1: 92 bpm Height: 6' Respiratory Rate: 20 bpm Temperature: 36.9 (C ) / 98.4 (F) Weight: 309 lbs 02/27/2013 Blood Pressure 1: 162/114 Code: 8480-6 BMI: 41.0 Code: 73221-4 Heart Rate 1: 84 bpm Height: 6' Respiratory Rate: 20 bpm Temperature: 36.7 (C ) / 98.0 (F) Weight: 302 lbs 01/01/2013 Blood Pressure 1: 138/86 Code: 8480-6 BMI: 41.0 Code: 81166-6 Heart Rate 1: 76 bpm Height: 6' Respiratory Rate: 20 bpm Temperature: 36.7 (C ) / 98.0 (F) Weight: 302 lbs 11/27/2012 Blood Pressure 1: 136/92 Code: 8480-6 BMI: 41.2 Code: 62860-5 Heart Rate 1: 80 bpm Height: 6' Respiratory Rate: 20 bpm Temperature: 36.6 (C ) / 97.8 (F) Weight: 304 lbs 08/28/2012 Blood Pressure 1: 126/80 Code: 8480-6 BMI: 41.8 Code: 33079-5 Heart Rate 1: 80 bpm Height: 6' Respiratory Rate: 20 bpm Temperature: 36.4 (C ) / 97.6 (F) Weight: 308 lbs 07/03/2012 Blood Pressure 1: 114/80 Code: 8480-6 BMI: 42.3 Code: 78818-8 Heart Rate 1: 72 bpm Height: 6' Respiratory Rate: 20 bpm Temperature: 36.6 (C ) / 97.9 (F) Weight: 312 lbs 06/21/2012 Blood Pressure 1: 152/100 Code: 8480-6 BMI: 43.3 Code: 75689-6 Heart Rate 1: 72 bpm Height: 6' Temperature: 36.8 (C ) / 98.2 (F) Weight: 319 lbs 05/30/2012 Blood Pressure 1: 122 Code: 8480-6 BMI: 43.0 Code: 64852-4 Heart Rate 1: 72 bpm Height: 6' Respiratory Rate: 20 bpm Temperature: 36.7 (C ) / 98.0 (F) Weight: 317 lbs 05/21/2012 Blood Pressure 1: 126/94 Code: 8480-6 BMI: 44.2 Code: 61975-0 Heart Rate 1: 92 bpm Height: 6' Respiratory Rate: 20 bpm Temperature: 36.6 (C ) / 97.9 (F) Weight: 326 lbs 01/24/2012 Blood Pressure 1: 122/90 Code: 8480-6 BMI: 44.5 Code: 23388-7 Heart Rate 1: 76 bpm Height: 6' Respiratory Rate: 20 bpm Temperature: 36.8 (C ) / 98.2 (F) Weight: 328 lbs 09/21/2011 Blood Pressure 1: 116/80 Code: 8480-6 BMI: 44.1 Code: 69129-2 Heart Rate 1: 92 bpm Height: 6' Respiratory Rate: 20 bpm Temperature: 36.7 (C ) / 98.1 (F) Weight: 325 lbs 09/12/2011 Blood Pressure 1: 166/110 Code: 8480-6 BMI: 45.0 Code: 38735-9 Heart Rate 1: 80 bpm Height: 6' Respiratory Rate: 20 bpm Temperature: 36.5 (C ) / 97.7 (F) Weight: 332 lbs 06/14/2011 Blood Pressure 1: 142/84 Code: 8480-6 BMI: 45.6 Code: 00793-1 Heart Rate 1: 104 bpm Height: 6' Respiratory Rate: 20 bpm Temperature: 36.4 (C ) / 97.5 (F) Weight: 336 lbs 03/03/2011 Blood Pressure 1: 130/96 Code: 8480-6 Heart Rate 1: 86 bpm Temperature: 36.1 (C) / 97.0 (F) Weight: 327 lbs 01/27/2011 Blood Pressure 1: 142/96 Code: 8480-6 BMI: 42.0 Code: 42773-7 Heart Rate 1: 72 bpm Height: 6'2" Respiratory Rate: 20 bpm Temperature: 36.7 (C ) / 98.0 (F) Weight: 327 lbs 12/02/2010 Blood Pressure 1: 134/86 Code: 8480-6 Heart Rate 1: 72 bpm Temperature: 36.7 (C) / 98.1 (F) Weight: 323 lbs Functional Status No Functional Status data History of Present Illness Symptom Name Status Resu lt Effective Date Notes Quality chronic 02/26/2019 None Blood glucose levels 1 50-160's 02/26/2019 None Glucose monitoring fas ting 02/26/2019 None Glucose monitoring bed time 02/26/2019 None Labs TOTAL CHOL;250 02/26/2019 None Labs TG;465 02/26/2019 None Labs LDL;>400 TG 02/26/2019 None Labs HDL: 30 02/26/2019 None Labs RATIO; 8.33 02/26/2019 None Quality chronic 02/26/2019 None Quality decreased HDL 02/26/2019 None Quality increased chol esterol 02/26/2019 None Quality increased TG 02/26/2019 None Quality chronic 02/26/2019 None Onset and Resolution o ngoing 02/26/2019 None Onset and Resolution o ngoing 02/26/2019 has been out of diovan fo r sometime Quality worsening 02/26/2019 has not been taking meds for a while Quality intermittent 06/26/2018 None Quality worsening 06/26/2018 None abdominal pain Location diffusely 02/06/2018 None abdominal pain Quality a cute 02/06/2018 None abdominal pain Quality c ramping 02/06/2018 None abdominal pain Quality s harp 02/06/2018 None abdominal pain Quality i ntermittent 02/06/2018 improves after bowel move ment or passing flatus. abdominal pain Onset and Resolution gradual in onset 02/06/2018 None abdominal pain Onset of Symptom 2 weeks ago 02/06/2018 None constipation Quality acu te 02/06/2018 None constipation Quality int ermittent 02/06/2018 None constipation Quality soft 02/06/2018 None constipation Onset and Resolution ongoing 02/06/2018 None constipation Onset and Resolution gradual in onset 02/06/2018 None well man exam (18-39 years) Immunizations tetanus-diphtheria booster 07/27/2017 None well man exam (18-39 years) Reproduc tive System Development normal development 07/27/2017 None well man exam (18-39 years) Reproduc tive System Development normal puberty 07/27/2017 None well man exam (18-39 years) Reproduc tive System Development normal genitalia 07/27/2017 None well man exam (18-39 years) Nutritio n and Exercise normal weight 07/27/2017 None well man exam (18-39 years) Nutritio n and Exercise balanced nutrition 07/27/2017 None well man exam (18-39 years) Nutritio n and Exercise regular diet 07/27/2017 None well man exam (18-39 years) Nutritio n and Exercise minimal exercise 07/27/2017 None well man exam (18-39 years) Lifestyle no history of physical abuse 07/27/2017 None well man exam (18-39 years) Lifestyle no history of sexual abuse 07/27/2017 None well man exam (18-39 years) Lifestyle no history of verbal abuse 07/27/2017 None well man exam (18-39 years) Lifestyle regular seatbelt use 07/27/2017 None well man exam (18-39 years) Lifestyle family supportive of relationship 07/27/2017 None well man exam (18-39 years) Lifestyle satisfactory work experience 07/27/2017 None well man exam (18-39 years) Lifestyle normal sleep patterns 07/27/2017 None well man exam (18-39 years) Lifestyle normal amount of stress 07/27/2017 None well man exam (18-39 years) Lifestyle satisfactory marriage/partner relationship 07/27/2017 None well man exam (18-39 years) Cardiova scular Risk Factors diabetes mellitus 07/27/2017 None well man exam (18-39 years) Cardiova scular Risk Factors family history of cardiovascular disease 07/27/2017 None well man exam (18-39 years) Cardiova scular Risk Factors hypertension 07/27/2017 None well man exam (18-39 years) Cardiova scular Risk Factors dyslipidemia 07/27/2017 None well man exam (18-39 years) Cardiova scular Risk Factors obesity 07/27/2017 None well man exam (18-39 years) Cardiova scular Risk Factors lifestyle 07/27/2017 Non e well man exam (18-39 years) Sexual Activit y is sexually active 07/27/2017 None well man exam (18-39 years) Sexual Activit y experiences sexual satisfaction 07/27/2017 None well man exam (18-39 years) Sexual Activit y is monogamous 07/27/2017 None well man exam (18-39 years) Control none 07/27/2017 None well man exam (18-39 years) Health Guidanc e HIV precautions 07/27/2017 None well man exam (18-39 years) Health Guidanc e tobacco, drugs and alcohol avoidance 07/27/2017 chews tobacco well man exam (18-39 years) Health Guidanc e cholesterol level and lipid panel 07/27/2017 None well man exam (18-39 years) Health Guidanc e regular exercise 07/27/2017 None well man exam (18-39 years) Health Guidanc e safety belt use 07/27/2017 None well man exam (18-39 years) Health Guidanc e helmet use 07/27/2017 None well man exam (18-39 years) Health Guidanc e hearing loss prevention 07/27/2017 None well man exam (18-39 years) Health Guidanc e limiting UV/sun exposure 07/27/2017 None well man exam (18-39 years) Health Guidanc e suicide prevention 07/27/2017 None well man exam (18-39 years) Health Guidanc e depression symptoms 07/27/2017 None diabetes mellitus Blood glucose levels 200's 04/05/2017 None diabetes mellitus Glucose monitoring daily 04/05/2017 None hypertension Quality chr onic 04/05/2017 None hypertension Quality marky jessica hypertension 04/05/2017 None hyperlipidemia Labs HDL: 27 04/05/2017 None hyperlipidemia Labs TG;5 24 04/05/2017 None hyperlipidemia Labs TOTA L CHOL: 261 04/05/2017 None diabetes mellitus Quality chronic 06/20/2016 None hypertension Quality chr onic 06/20/2016 None hypertension Quality marky lopez hypertension 06/20/2016 None hypertension Quality sta ble 06/20/2016 None hypertension Alleviating Factors medication 06/20/2016 None hyperlipidemia Labs TOTA L CHOL;264 06/20/2016 None hyperlipidemia Labs TG;6 30 06/20/2016 None hyperlipidemia Labs LDL; high TG 06/20/2016 None hyperlipidemia Labs HDL: 25 06/20/2016 None hyperlipidemia Quality c hronic 06/20/2016 None hyperlipidemia Quality i ncreased cholesterol 06/20/2016 None hyperlipidemia Quality i ncreased TG 06/20/2016 None hyperlipidemia Quality d ecreased HDL 06/20/2016 None diabetes mellitus Test results HgbA1c level 17.1 06/20/2016 Last labs from 05/04/16 joint complaint Location on the right shoulder 06/20/2016 June 02--for labral and rotator cuff tear diabetes mellitus Quality improving 06/20/2016 since 1 week prior to jake abdullahi dysuria Quality burning 02/16/2016 None dysuria Quality acute 02/16/2016 None dysuria Quality aching 02/16/2016 None dysuria Onset and Resolution gradual in onset 02/16/2016 None dysuria Onset of Symptom 5-6 days ago 02/16/2016 None dysuria Quality worsening 02/16/2016 None pain, limb Location on b oth legs 12/03/2015 None pain, limb Quality cramp ing 12/03/2015 None pain, limb Quality inter mittent. 12/03/2015 Patient says it seems to happen after using the Novolog pen pain, limb Onset and Resolution ongoing 12/03/2015 None diabetes mellitus Quality worsening 12/03/2015 None diabetes mellitus Glucose monitoring daily 12/03/2015 up to 8 times a day since has been cramping diabetes mellitus Test results Fingerstick blood sugar 180 to 300 12/03/2015 None foot pain Location on el th sides 06/24/2015 None foot pain Quality sharp pain 06/24/2015 None foot pain Quality throbb ing 06/24/2015 None foot pain Quality numbne ss 06/24/2015 None foot pain Quality tingli ng 06/24/2015 None foot pain Onset and Resolution ongoing 06/24/2015 None foot pain Quality recurr ent 06/24/2015 None sinusitis Location diffu sely 06/11/2015 None sinusitis Quality acute 06/11/2015 None sinusitis Quality fullne ss 06/11/2015 None sinusitis Quality green 06/11/2015 None sinusitis Quality pain 06/11/2015 None sinusitis Quality pressu re 06/11/2015 None sinusitis Onset and Resolution ongoing 06/11/2015 None sinusitis Onset of Symptom 2 weeks ago 06/11/2015 None headache Location diffus alma delia 06/11/2015 None headache Quality acute 06/11/2015 None headache Quality aching 06/11/2015 None headache Onset of Symptom 1 weeks ago 06/11/2015 None cough Location in the th roat 06/11/2015 None cough Quality acute 06/11/2015 None cough Quality dry 06/11/2015 None cough Quality hacking 06/11/2015 None cough Onset and Resolution ongoing 06/11/2015 None cough Onset of Symptom 2 weeks ago 06/11/2015 None otalgia Location on both sides 06/11/2015 None otalgia Quality acute 06/11/2015 None otalgia Quality pressure 06/11/2015 None otalgia Onset of Symptom 1 week ago 06/11/2015 None sinus congestion Location on both sides 06/11/2015 None sinus congestion Quality acute 06/11/2015 None sinus congestion Quality pressure 06/11/2015 None sinus pain Location diff usely 06/11/2015 None sinus pain Quality acute 06/11/2015 None diabetes mellitus Blood glucose levels between 70 and 120 07/17/2014 None diabetes mellitus Glucose monitoring two to three times daily 07/17/2014 None abdominal pain Location in the RUQ 10/31/2013 None abdominal pain Radiating the back 10/31/2013 None abdominal pain Onset and Resolution resolved 10/31/2013 None diabetes mellitus Glucose monitoring twice daily 10/31/2013 None diabetes mellitus Blood glucose levels between 60 and 120 10/31/2013 None diabetes mellitus Glucose monitoring twice daily 08/01/2013 None diabetes mellitus Blood glucose levels 110- 120's 08/01/2013 None abdominal pain Onset and Resolution resolved 08/01/2013 had good results with salbador alax abdominal pain Location in the RLQ 07/30/2013 None abdominal pain Quality s harp 07/30/2013 None abdominal pain Quality i ntermittent 07/30/2013 None abdominal pain Onset of Symptom 1 days ago 07/30/2013 None depression Quality impro ving 05/30/2013 Currently taking fluoxeti ne 20mg hypertension Onset and Resolution ongoing 05/30/2013 Didn't get Diovan because wasn't covered depression Onset and Resolution ongoing 04/29/2013 Never been on medications depression Quality worse minnie 04/29/2013 None depression Quality acute 04/29/2013 just lost uncle hypertension Quality chr onic 04/29/2013 None hypertension Quality con stant 04/29/2013 None hypertension Onset and Resolution ongoing 04/29/2013 None hypertension Quality sta ble 04/29/2013 None hypertension Onset of Symptom during childhood 04/29/2013 None diabetes mellitus Glucose monitoring three times daily 02/27/2013 None diabetes mellitus Blood glucose levels between 115-125 02/27/2013 None hyperlipidemia Quality s table 02/27/2013 None hyperlipidemia Onset and Resolution ongoing 02/27/2013 None hypertension Onset and Resolution ongoing 02/27/2013 None hypertension Onset of Symptom during childhood 02/27/2013 None toe pain due to infection Location on the right great toe 01/01/2013 None toe pain due to infection Onset of Symptom 1 1/2 weeks ago 01/01/2013 None diabetes mellitus Glucose monitoring three times daily 11/27/2012 None diabetes mellitus Blood glucose levels between 60 and 120 11/27/2012 Has had one reading in 130's chronic renal failure Quality stable 11/27/2012 None chronic renal failure Onset and Resolution ongoing 11/27/2012 None cellulitis Location on t he left arm 11/27/2012 in elbow--seen in Urgent care in [place] and started on abx cellulitis Onset and Resolution resolved 11/27/2012 None diabetes mellitus Glucose monitoring four times daily 08/28/2012 None diabetes mellitus Blood glucose levels 110's 08/28/2012 None hypertension Quality sta ble 08/28/2012 None hypertension Quality imp roving 08/28/2012 None diabetes mellitus Test results HgbA1c level 6.1 08/28/2012 None hyperlipidemia Onset and Resolution ongoing 08/28/2012 None hyperlipidemia Quality i mproving 08/28/2012 None joint complaint Quality acute 08/28/2012 came down on left knee wr jerrica playing basketball diabetes mellitus Glucose monitoring before meals 07/03/2012 None diabetes mellitus Glucose monitoring bedtime 07/03/2012 None diabetes mellitus Blood glucose levels averaging 120's or less 07/03/2012 None hypertension Quality sta ble 07/03/2012 None diabetes mellitus Glucose monitoring four times daily 06/21/2012 None diabetes mellitus Blood glucose levels greater than 120 06/21/2012 Has been feeling shakey since earlier this morning hypertension Onset and Resolution ongoing 06/21/2012 been out of [facility] didn't have diabetes mellitus Blood glucose levels 240- 300's 05/30/2012 None diabetes mellitus Glucose monitoring four times daily 05/30/2012 None sores Location-Major on the right arm 05/30/2012 None sores Color red 05/30/2012 None sores Quality improving since starting antibiotics 05/30/2012 None hypertension Quality sta ble 05/30/2012 None vision change Quality im proving 05/30/2012 since BS has came down vision change Location i n both eyes 05/21/2012 None vision change Quality bl urred vision 05/21/2012 None vision change Onset and Resolution ongoing since kidney medicine changed to generics 05/21/2012 None vision change Onset of Symptom 3 weeks ago 05/21/2012 None hypertension Quality chr onic 05/21/2012 None hypertension Onset and Resolution ongoing 05/21/2012 None hypertension Quality wor sening 05/21/2012 past week dizziness Quality improv ing 01/24/2012 None hypertension Quality sta ble 01/24/2012 None fatigue Quality chronic 01/24/2012 None fatigue Onset and Resolution ongoing 01/24/2012 None dizziness Quality lighth eadedness 09/21/2011 hearing a swooshing sound in ears dizziness Quality sense of room spinning 09/21/2011 None dizziness Onset of Symptom 3 days ago 09/21/2011 None vomiting Quality acute 09/21/2011 every night this week hypertension Onset and Resolution ongoing 09/12/2011 None hypothyroid Onset and Resolution ongoing 09/12/2011 None hyperlipidemia Onset and Resolution ongoing 09/12/2011 None hypertension Quality sta ble 06/14/2011 None hypothyroid Onset and Resolution ongoing 06/14/2011 None headache Quality tension 06/14/2011 daily at work hypertension Quality marky jessica hypertension 03/03/2011 None hypertension Onset and Resolution ongoing 03/03/2011 None sore throat Location on both sides 03/03/2011 None sore throat Quality inte rmittent 03/03/2011 None sore throat Quality burn ing 03/03/2011 None sore throat Quality dull 03/03/2011 None sore throat Quality achi ng 03/03/2011 None sore throat Onset and Resolution ongoing 03/03/2011 None sore throat Onset and Resolution gradual in onset 03/03/2011 None sore throat Onset of Symptom 1 weeks ago 03/03/2011 None sore throat Limitation on Activities does not limit oral intake 03/03/2011 None sore throat Frequency of Episodes increasing 03/03/2011 pt states that sore throa t comes and goes since last week. hypothyroid Onset and Resolution ongoing 01/27/2011 None headache Quality intermi ttent 01/27/2011 None headache Quality pressure 01/27/2011 to forehead follow up Reason thyroid studies 12/02/2010 None chronic renal failure Quality improving 12/02/2010 had kidney transplant on October 28, 2009 weight gain/obesity Quality worsening 12/02/2010 None Advance Directives No Advance Directive data Encounters Encounter Performer Loca tion Codes Date ([id number]) OFFICE/OUTPA TIENT VISIT EST Diagnosis: Essential (primary) hypertension[ICD10: I10] Diagnosis: 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, 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] Diagnosis: Kidney transplant status[ICD10: Z94.0] Diagnosis: Chronic kidney disease, stage 3 (moderate)[ICD10: N18.3] Diagnosis: Mixed hyperlipidemia[ICD10: E78.2] Galina Chance [employer] CPT-4: 30332 02/26/2019 ([id number]) NURSE/OUTPAT IENT VISIT EST Diagnosis: 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, 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] Diagnosis: Essential (primary) hypertension[ICD10: I10] Diagnosis: Other specified hypothyroidism[ICD10: E03.8] Diagnosis: Mixed hyperlipidemia[ICD10: E78.2] Galina Chance [facility] CPT-4: 05622 02/19/2019 ([id number]) NURSE/OUTPAT IENT VISIT EST Diagnosis: Kidney transplant status[ICD10: Z94.0] 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] Diagnosis: Other fci (current) drug therapy[ICD10: Z79.899] Diagnosis: Encounter for aftercare following other organ transplant[ICD10: Z48.298] Diagnosis: Mixed hyperlipidemia[ICD10: E78.2] Galina ARTEAGA [email or web address] CPT-4: 62941 08/24/2018 ([id number]) NURSE/OUTPAT IENT VISIT EST Diagnosis: Type 2 diabetes mellitus with diabetic neuropathy, unspecified[ICD10: E11.40] Diagnosis: Type 2 diabetes mellitus with hyperglycemia[ICD10: E11.65] 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] Diagnosis: Essential (primary) hypertension[ICD10: I10] Galina ARTEAGA [email or web address] CPT-4: 99160 06/29/2018 ([id number]) OFFICE/OUTPA TIENT VISIT EST Diagnosis: Slow transit constipation[ICD10: K59.01] Diagnosis: Epigastric pain[ICD10: R10.13] Diagnosis: Type 2 diabetes mellitus with hyperglycemia[ICD10: E11.65] Coleen SMITH [email or web address] CPT-4: 90155 06/26/2018 ([id number]) OFFICE/OUTPA TIENT VISIT EST Diagnosis: Right lower quadrant pain[ICD10: R10.31] Diagnosis: Type 2 diabetes mellitus with diabetic neuropathy, unspecified[ICD10: E11.40] Coleen SMITH [email or web address] CPT-4: 12271 02/06/2018 ([id number]) OFFICE/OUTPA TIENT VISIT EST Diagnosis: Type 2 diabetes mellitus with hyperglycemia[ICD10: E11.65] Diagnosis: Mixed hyperlipidemia[ICD10: E78.2] Diagnosis: Essential (primary) hypertension[ICD10: I10] Coleen CHENEY [email or web address] CPT-4: 85714 11/02/2017 ([id number]) PREV VISIT E ST AGE 18-39 Diagnosis: Encounter for general adult medical examination with abnormal findings[ICD10: Z00.01] Diagnosis: Abrasion of right hand, initial encounter[ICD10: S60.511A] 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] Coleen SMITH [email or web address] CPT-4: 22885 07/27/2017 OFFICE/OUTPATIENT SIT EST 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] Diagnosis: Tinea pedis[ICD10: B35.3] Coleen [facility]JIALINE [facility] C[facility]: 98513 04/05/2017 ([id number]) OFFICE/OUTPA TIENT VISIT EST Diagnosis: 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, 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] Diagnosis: Mixed hyperlipidemia[ICD10: E78.2] Diagnosis: Essential (primary) hypertension[ICD10: I10] Galina Luis GALINA Meron [facility] CPT-4: 71265 06/20/2016 ([id number]) OFFICE/OUTPA TIENT VISIT EST Diagnosis: Urinary tract infection, site not specified[ICD10: N39.0] Missy DENNISONQUELINE [facility] CPT[facility]: 29065 02/16/2016 ([id number]) OFFICE/OUTPA TIENT VISIT EST Diagnosis: Type 2 diabetes mellitus with hyperglycemia[ICD10: E11.65] Diagnosis: Cramp and spasm[ICD10: R25.2] Diagnosis: Hematuria, unspecified[ICD10: R31.9] Galina Rodabrilshravan GALINA SusuKarol [facility] CPT-4: 27359 12/03/2015 OFFICE/OUTPATIENT SIT EST Diagnosis: Type 2 diabetes mellitus with diabetic neuropathy, unspecified[ICD10: E11.40] Alejandra DENNISONQUELINE [facility]: 24095 06/24/2015 ([id number]) OFFICE/OUTPA TIENT VISIT EST Diagnosis: Acute sinusitis, unspecified[ICD10: J01.90] Diagnosis: Otitis media, unspecified, bilateral[ICD10: H66.93] Galina ASENCIO SusuKarol [facility] CPT-4: 50455 06/11/2015 ([id number]) OFFICE/OUTPA TIENT VISIT EST Diagnosis: 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[ICD9: 250.01] Diagnosis: HYPERTENSION[ICD9: 401.9] Diagnosis: HYPERLIPIDEMIA NEC/NOS[ICD9: 272.4] Diagnosis: KIDNEY TRANSPLANT STATUS[ICD9: V42.0] Galina ROD NDER DO [facility] CPT-4: 76666 07/17/2014 ([id number]) OFFICE/OUTPA TIENT VISIT EST Diagnosis: 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[ICD9: 250.01] Diagnosis: HYPERTENSION[ICD9: 401.9] Galina SMITH [facility] CPT-4: 63030 10/31/2013 ([id number]) OFFICE/OUTPA TIENT VISIT EST Diagnosis: 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I[ICD9: 250.00] Diagnosis: HYPERTENSION[ICD9: 401.9] Diagnosis: HYPERLIPIDEMIA NEC/NOS[ICD9: 272.4] Galina ROD NDER [facility] CPT-4: 17611 08/01/2013 OFFICE/OUTPATIENT SIT EST Diagnosis: HEMATURIA NOS[ICD9: 599.70] Diagnosis: Abdominal pain, acute, right lower quadrant[ICD9: 789.03] Diagnosis: KIDNEY TRANSPLANT STATUS[ICD9: V42.0] Alejandra Santiagoleonelwill GALINA RIVAS DO [facility] CPT-4: 03176 07/30/2013 ([id number]) OFFICE/OUTPA TIENT VISIT EST Diagnosis: Uncontrolled hypertension[ICD9: 401.9] Diagnosis: BRIEF DEPRESSIVE REACT[ICD9: 309.0] Galina ROD NDER DO [facility] CPT-4: 10635 05/30/2013 ([id number]) OFFICE/OUTPA TIENT VISIT EST Diagnosis: HYPERTENSION[ICD9: 401.9] Diagnosis: Anticipatory grieving[ICD9: 309.0] Galina ROD NDER DO [facility] CPT-4: 29815 04/29/2013 ([id number]) OFFICE/OUTPA TIENT VISIT EST Diagnosis: 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I, UNCONTROLLED[ICD9: 250.02] Diagnosis: HYPERTENSION[ICD9: 401.9] Diagnosis: HYPOTHYROIDISM[ICD9: 244.9] Diagnosis: KIDNEY TRANSPLANT STATUS[ICD9: V42.0] Galina ROD NDER DO [facility] CPT-4: 89515 02/27/2013 OFFICE/OUTPATIENT SIT EST Diagnosis: Paronychia[ICD9: 681.9] Diagnosis: ONYCHOMYCOSIS[ICD9: 110.1] Viky Acosta GALINA SusuKarol LUIS [employer] [facility] CPT-4: 51120 01/01/2013 ([id number]) OFFICE/OUTPA TIENT VISIT EST Diagnosis: 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I, UNCONTROLLED[ICD9: 250.02] Diagnosis: HYPERLIPIDEMIA NEC/NOS[ICD9: 272.4] Diagnosis: HYPERTENSION[ICD9: 401.9] Diagnosis: KIDNEY TRANSPLANT STATUS[ICD9: V42.0] Diagnosis: HYPOTHYROIDISM[ICD9: 244.9] Galina Bernalshravan GALINA SusuKarol LUIS [employer] [facility] CPT-4: 17009 11/27/2012 ([id number]) OFFICE/OUTPA TIENT VISIT EST Diagnosis: 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I[ICD9: 250.00] Diagnosis: HYPOTHYROIDISM[ICD9: 244.9] Diagnosis: HYPERLIPIDEMIA NEC/NOS[ICD9: 272.4] Diagnosis: HYPERTENSION[ICD9: 401.9] Galina ASENCIO SusuKarol LUIS [employer] [facility] CPT-4: 67687 08/28/2012 ([id number]) OFFICE/OUTPA TIENT VISIT EST Diagnosis: HYPOTHYROIDISM[ICD9: 244.9] Diagnosis: 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I, UNCONTROLLED[ICD9: 250.02] Diagnosis: HYPERLIPIDEMIA NEC/NOS[ICD9: 272.4] Diagnosis: KIDNEY TRANSPLANT STATUS[ICD9: V42.0] Diagnosis: HYPERTENSION[ICD9: 401.9] Galina ASENCIO SusuKarol RODABRILSHRAVAN [employer] [facility] CPT-4: 14035 08/20/2012 OFFICE/OUTPATIENT SIT EST Diagnosis: 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I, UNCONTROLLED[ICD9: 250.02] Diagnosis: HYPERTENSION[ICD9: 401.9] Galina ASENCIO SusuKaorl RODABRILSHRAVAN [employer] [facility] CPT-4: 18928 07/03/2012 OFFICE/OUTPATIENT SIT EST Diagnosis: 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I, UNCONTROLLED[ICD9: 250.02] Diagnosis: HYPERTENSION[ICD9: 401.9] Galina ASENCIO SusuKarol RODABRILSHRAVAN [employer] [facility] CPT-4: 28427 06/21/2012 OFFICE/OUTPATIENT SIT EST Diagnosis: 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I, UNCONTROLLED[ICD9: 250.02] Diagnosis: HYPERTENSION[ICD9: 401.9] Diagnosis: HYPERLIPIDEMIA NEC/NOS[ICD9: 272.4] Diagnosis: KIDNEY TRANSPLANT STATUS[ICD9: V42.0] Galina ARTEAGA [facility] CPT-4: 46947 05/30/2012 ([id number]) OFFICE/OUTPA TIENT VISIT EST Diagnosis: HYPERTENSION[ICD9: 401.9] Diagnosis: VISUAL DISTURBANCE[ICD9: 368.9] Galina SMITH [facility] CPT-4: 68021 05/21/2012 ([id number]) OFFICE/OUTPA TIENT VISIT EST Diagnosis: HYPERTENSION[ICD9: 401.9] Diagnosis: HYPOTHYROIDISM[ICD9: 244.9] Diagnosis: KIDNEY TRANSPLANT STATUS[ICD9: V42.0] Galina ARTEAGA [facility] CPT-4: 47716 01/24/2012 OFFICE/OUTPATIENT SIT EST Diagnosis: DIZZINESS/VERTIGO[ICD9: 780.4] Diagnosis: HYPERTENSION[ICD9: 401.9] Galina SMITH [facility] CPT-4: 99681 09/21/2011 ([id number]) OFFICE/OUTPA TIENT VISIT EST Diagnosis: HYPERTENSION[ICD9: 401.9] Diagnosis: HYPOTHYROIDISM[ICD9: 244.9] Diagnosis: HYPERLIPIDEMIA NEC/NOS[ICD9: 272.4] Diagnosis: KIDNEY TRANSPLANT STATUS[ICD9: V42.0] Galina ARTEAGA [facility] CPT-4: 61727 09/12/2011 OFFICE/OUTPATIENT SIT EST Diagnosis: HYPOTHYROIDISM[ICD9: 244.9] Diagnosis: HYPERTENSION[ICD9: 401.9] Diagnosis: CEPHALGIA[ICD9: 784.0] Galina SMITH [facility] CPT-4: 40805 06/14/2011 OFFICE/OUTPATIENT SIT EST Diagnosis: HYPERTENSION[ICD9: 401.9] Diagnosis: PHARYNGITIS, ACUTE[ICD9: 462] Diagnosis: HYPOTHYROIDISM[ICD9: 244.9] Galina BERNALER DO [employer] CPT-4: 73792 03/03/2011 OFFICE/OUTPATIENT SIT EST Diagnosis: HYPOTHYROIDISM[ICD9: 244.9] Diagnosis: KIDNEY TRANSPLANT STATUS[ICD9: V42.0] Diagnosis: HYPERTENSION[ICD9: 401.9] Diagnosis: SINUSITIS, ACUTE[ICD9: 461.9] Galina SMITH DO [employer] CPT-4: 69722 01/27/2011 ([id number]) OFFICE/OUTPA TIENT VISIT EST Galina ARTEAGA DO [employer] CPT-4: 03002 12/02/2010 Plan of Care Planned Activity Notes C odes Status Date Visit Diagnosis Plan: Mixed hyperlipidemia Discussion: Start atorvastatin 80mg daily ICD-9 : 272.4 ICD-10 : E78.2 02/26/2019 Visit Diagnosis Plan: Essential (primary) hypertension Discussion: Noncompliant Start amlodopine 5mg daily ICD-9 : 401.9 ICD-10 : I10 02/26/2019 Visit Diagnosis Plan: DM W/O COMPLICATIO N TYPE I, UNCONTROLLED Discussion: Check HbA1C ICD-9 : 250.03 ICD-10 : E10.9 02/26/2019 Patient Education: atorvastatin- [employer] Coupon [phone] [id number] [email or web address] Completed 02/26/2019 Appointment: Galina Smith WPtel: [address] [place] [address] LAB 02/19/2019 Appointment: Coleen Frey [address] [place] [address] [place] had 2 flat tires this morning. NO SHOW - FORGIVEN 02/19/2019 Appointment: Galina Smith WPtel: [address] [place] [address] LAB 08/24/2018 Appointment: Galina Smith WPtel: [address] [place] [address] LAB 06/29/2018 Visit Diagnosis Plan: Epigastric pain Discussion: will refer to dr. segura for possible hiatal hernia based on symptoms and symptom relief. ICD-9 : 789.06 ICD-10 : R10.13 06/26/2018 Visit Diagnosis Plan: Slow transit constipation Discussion: continue with miralax bid until symptoms resolve. once resolved, take daily as maintenance. discussed with patient that miralax can take 3-4 days for full effect. if still having issues later this week, call clinic. ICD-9 : 564.01 ICD-10 : K59.01 06/26/2018 Visit Diagnosis Plan: Type 2 diabetes me llitus with hyperglycemia Discussion: informed patient he is due f or a1c, cmp but he had labs done in [facility]. will obtain lab results and order additional labs as needed. ICD-9 : 250.02 ICD-10 : E11.65 06/26/2018 Appointment: Coleen Frey [address] [place] [address] ACUTE ILLNESS 06/26/2018 Visit Diagnosis Plan: Type 2 diabetes me llitus with diabetic neuropathy, unspecified Discussion: cmp, microalbumin, and a1c o rdered to be completed today. ICD-9 : 250.60 ICD-10 : E11.40 02/06/2018 Visit Diagnosis Plan: Right lower quadrant pain Discussion: urine to be sent off for culture and will start antibiotics if needed. samples of miralax given to patient and instructed to take daily. discussed with patient that if no improvement with miralax, culture negative, then will need to have updated ultrasound of transplant and patient verbalized understanding. ICD-9 : 789.03 ICD-10 : R10.31 02/06/2018 Appointment: Coleen Frey [address] [place], [place] [id number] ACUTE ILLNESS 02/06/2018 Patient Education: Patient Medication Summary Completed 02/06/2018 Visit Diagnosis Plan: Essential (primary) hypertension Discussion: patient had just left the ER due to an injury with someone in his family so elevated bp most likely r/t stress and anxiety. will recheck at next visit but instructed to monitor at home as well and to call us with worsening symptoms. ICD-9 : 401.9 ICD-10 : I10 11/02/2017 Visit Diagnosis Plan: Type 2 diabetes me llitus with hyperglycemia Discussion: a1c, cmp drawn today. patien t only had tea today and was unsweetened. continue with current dose of medications until labs return. patient had just used the restroom so microalbumin will be completed at next visit. follow up in 3 months or sooner if needed. ICD-9 : 250.02 ICD-10 : E11.65 11/02/2017 Appointment: Coleen Frey [address] [place] [address] FOLLOW UP 11/02/2017 Patient Education: Patient Medication Summary Completed 11/02/2017 Visit Diagnosis Plan: Abrasion of right hand, initial encounter Discussion: keflex prescribed for infect ion. instructed patient to call or rtc next week if no improvement. keep area clean and dry. ICD-9 : 914.0 ICD-10 : S60.511A 07/27/2017 Visit Diagnosis Plan: Encounter for [facility] adult medical examination with abnormal findings Discussion: patient deferred influenza vaccine at this time, received tdap shot. routine labs performed earlier today so will obtain results from [facility]. ICD-9 : V70.0 ICD-10 : Z00.01 07/27/2017 Visit Diagnosis Plan: Type 2 diabetes me llitus with other circulatory complications Discussion: instructed to keep an eye on his feet and to keep them clean and dry. assess feet often for abrasions. will review a1c. ICD-9 : 250.80 ICD-10 : E11.59 07/27/2017 Appointment: Coleen Frey [address] [place], [place] [id number] Annual Well Visit 07/27/2017 Patient Education: Patient [...] E11.59 04/05/2017 Visit Diagnosis Plan: Tinea pedis Di scussion: nystatin ointment ordered to be placed on foot bid for 10 days. instructed to keep feet clean and dry. ICD-9 : 110.4 ICD-10 : B35.3 04/05/2017 Appointment: Coleen Frey [address] [place], [place] [address] FOLLOW UP 04/05/2017 Patient Education: Patient Medication Summary Completed 04/05/2017 Patient Education: Patient Medication Summary Completed 04/05/2017 Care Plan: CBC Pending 04/05/2017 Care Plan: LIPID PANEL LOINC : 14498-3 Pending 04/05/2017 Care Plan: COMPREHEN METABOLIC PANEL LOINC : 09538-6 Pending 04/05/2017 Visit Plan: Patient admits that has not been watching diet--was drinking pop and eating sugar and anything her wanted up until recent shoulder surgery and would not answer question of if was taking his insulin or n ot Increase levemir to 90 units daily and call in 1 week with fasting blood sugars Has only been doing 5u of novolog with meals because lost sliding scale--new sliding scale given 06/20/2016 Appointment: Galina Smith WPtel: [address] [place], [place] [id number] 06/16 lm-sp 06/20 lm ~sl FOLLOW UP 06/20/2016 Patient Education: Patient Medication Summary Completed 06/20/2016 Patient Education: Patient Medication Summary Completed 05/04/2016 Care Plan: COMPREHEN METABOLIC PANEL LOINC : 65068-6 Pending 05/04/2016 Care Plan: CBC Pending 05/04/2016 Care Plan: LIPID PANEL LOINC : 20547-2 Pending 05/04/2016 Care Plan: A1C HPLC LO INC : 24791-9 Pending 05/04/2016 Visit Plan: Discussed with Dr Bernal er Treatment as above while awaiting specialist to return his call Push fluids Follow up celine if not improving 02/16/2016 Visit Plan: Discussed with Dr Bernal er Treatment as above while awaiting specialist to return his call Push fluids Follow up celine if not improving 02/16/2016 Appointment: Missy Dc [address] [facility] ACUTE ILLNESS 02/16/2016 Patient Education: Patient Medication Summary Completed 02/16/2016 Visit Plan: Check CMP, TSH, HbA1C, magnesium, UA now Hydrate and monitor blood sugar Use powerade zero in conjunction with water to stay hydrated Discussed elevated blood sugar can cause cramping as well 12/03/2015 Visit Plan: Check CMP, TSH, HbA1C, magnesium, UA now Hydrate and monitor blood sugar Use powerade zero in conjunction with water to stay hydrated Discussed elevated blood sugar can cause cramping as well 12/03/2015 Appointment: Galina Smith WPtel: [address] [place] [address] ACUTE ILLNESS 12/03/2015 Patient Education: Patient Medication Summary Completed 12/03/2015 Visit Plan: Labs completed this am in [place] but do not have results yet. Start Lyrica 75mg PO bid Will Call in a week and let know if pain is improved. 06/24/2015 Visit Plan: Labs completed this am in [place] but do not have results yet. Start Lyrica 75mg PO bid Will Call in a week and let know if pain is improved. 06/24/2015 Appointment: Alejandra Billy WPtel: [address] [place] [address] ACUTE ILLNESS 06/24/2015 Patient Education: Patient Medication Summary Completed 06/24/2015 Patient Education: Lyrica - 18+ - No MA NE Completed 06/24/2015 Visit Plan: Saline nasal flushes pr n. Tylenol/Motrin prn headache. Notify if persists/symptoms worsening. Obtain most recent lab Warned of increased BS with prednisone--has sliding scale to use 06/11/2015 Appointment: Galina Smith WPtel: [address] [place], [place] [phone] 06/10/15 cn....06/10/15 appt ky jacinto Annual Well Visit 05/14 Patient Education: Patient Medication Summary Completed 06/11/2015 Appointment: Galina Smith WPtel: [address] [place], [place] [phone] FOLLOW UP 10/15/2014 Patient Education: Patient Medication Summary Completed 09/03/2014 Care Plan: COMPREHEN METABOLIC PANEL LOINC : 90638-5 Ordered 09/03/2014 Visit Plan: Obtain most recent lab results Will likely need HbA1C and Lipids if were not done Accuchecks q AC and HS 07/17/2014 Appointment: Galina Smith WPtel: [address] [place] [address] FOLLOW UP 07/17/2014 Patient Education: Patient Medication Summary Completed 07/17/2014 Appointment: Galina Smith WPtel: [address] [place] [address] 01/29 vm 01/30 NO SHOW FOLLOW UP 01/30/2014 Visit Plan: Check CMP, HbA1C, CBC, Lipids Pt sees transplant doctor next month Pt is currently just using insulin prn and monitering BS 10/31/2013 Appointment: Galina Smith WPtel: [address] [place] [address] FOLLOW UP 10/31/2013 Patient Education: Patient Medication Summary Completed 10/31/2013 Visit Plan: Continue current meds a nd acuchecks 08/01/2013 Appointment: Galina Smith WPtel: [address] [place] [address] 07/31 VM FOLLOW UP 08/01/2013 Patient Education: Patient Medication Summary Completed 08/01/2013 Visit Plan: CBC, CMP, CRP To [facility] for CT abdomen/Pelvis w/o contrast 07/30/2013 Appointment: Alejandra Billy WPtel: [address] [place] [address] ACUTE ILLNESS 07/30/2013 Patient Education: Patient Medication Summary Completed 07/30/2013 Visit Plan: Restart Diovan--pt says needs PA Continue fluoxetine at 20mg daily 05/30/2013 Appointment: Galina Smith WPtel: [address] [place] [address] FOLLOW UP 05/30/2013 Patient Education: Patient Medication Summary Completed 05/30/2013 Appointment: Galina Smith WPtel: [address] [place], [place] [phone] [place] has appt following day FOLLOW UP 05/29/2013 Visit Plan: Restart Diovan and Amlo dopine as has been out--new rx sent out Trial of Fluoxetine 20mg q AM Stress Reducers 04/29/2013 Appointment: Galina Smith WPtel: [address] [place] [address] 04/26 MOM made appt. confirmed monday ACUTE ILLNESS 04/29/2013 Patient Education: Patient Medication Summary Completed 04/29/2013 Visit Plan: Continue current meds a nd accuchecks Pt going for fasting lab next month 02/27/2013 Appointment: Galina Smith WPtel: [address] [place] [address] FOLLOW UP 02/27/2013 Patient Education: Patient Medication Summary Completed 02/27/2013 Appointment: Viky Acosta WPtel: [address] [place] [address] ACUTE ILLNESS 01/01/2013 Patient Education: Patient Medication Summary Completed 01/01/2013 Visit Plan: Continue current meds C heck fasting lab next week 11/27/2012 Appointment: Galina Smith WPtel: [address] [place] [address] FOLLOW UP 11/27/2012 Patient Education: Patient Medication Summary Completed 11/27/2012 Visit Plan: Lab discussed Continue current meds and accuchecks Pt sees transplant doctor in in October Check fasting lab and fwup in 3mos 08/28/2012 Appointment: Galina Smith WPtel: [address] [place] [address] 08/27 FOLLOW UP 08/28/2012 Patient Education: Patient Medication Summary Completed 08/28/2012 Appointment: Galina Smith WPtel: [address] [place], [place] [phone] [place] LAB 08/20/2012 Patient Education: Patient Medication Summary Completed 08/20/2012 Visit Plan: Continue levemir at cur rent dose with accuchecks Use apidra with sliding scale Check Chem 7 and HbA1C in 2mos 07/03/2012 Appointment: Galina Smithtel: [address] [place] [address] 07/02 FOLLOW UP 07/03/2012 Patient Education: Patient [...] 320mg daily 06/21/2012 Appointment: Galina Smith WPtel: [address] [place] [address] ACUTE ILLNESS 06/21/2012 Patient Education: Patient Medication Summary Completed 06/21/2012 Visit Plan: Increase Levemir to 75 u sc q PM Continue sliding scale insulin with accuchecks q AC and HS Call in 1wk with BS readings 05/30/2012 Appointment: Galina Smith WPtel: [address] [place] [address] Follow Up 05/30/2012 Patient Education: Patient Medication Summary Completed 05/30/2012 Appointment: Galina Smithtel: [address] [place], [place] [phone] 05/21 - cancelled appointment for 05/22 because PT was worked in on 05/21 FOLLOW UP 05/22/2012 Visit Plan: Obtain lab done last mo from [facility] See optometry for dilated eye exam and eye pressures today May need CT head pending results of eye evaluation 05/21/2012 Appointment: Galina Smithtel: [address] [place] [address] WORK IN 05/21/2012 Appointment: Galina Smith WPtel: [address] [place] [address] LAB 05/21/2012 Patient Education: Patient Medication Summary Completed 05/21/2012 Visit Plan: Continue current meds O btain most recent lab done at [facility] See eye doctor today for dilated exam and eye pressures May need CT head pending dilated eye exam results 01/24/2012 Visit Plan: Continue current meds O btain most recent lab done at [facility] 01/24/2012 Visit Plan: Continue current meds C heck CBC, CMP, TSH, Free T4 01/24/2012 Appointment: Galina Smith WPtel: [address] [place] [address] [employer] FOLLOW UP 01/24/2012 Patient Education: Patient Medication Summary Completed 01/24/2012 Visit Plan: Decrease Norvasc to 2.5 mg daily Check CBC, CMP, TSH, Free T4 09/21/2011 Appointment: Galina Smith WPtel: [address] [place] [address] ACUTE ILLNESS 09/21/2011 Patient Education: Patient Medication Summary Completed 09/21/2011 Visit Plan: Continue Diovan at curr ent dose Add amlodopine Check Lipids/LFTs with next lab 09/12/2011 Appointment: Galina Smithtel: [address] [place] [address] FOLLOW UP 09/12/2011 Patient Education: Patient Medication Summary Completed 09/12/2011 Visit Plan: Increase Diovan to 320m g po daily Check TSH and Free T4 with kidney lab next week 06/14/2011 Appointment: Galina Smith WPtel: [address] [place], [place] [address] FOLLOW UP 06/14/2011 Patient Education: Patient Medication Summary Completed 06/14/2011 Visit Plan: Z-pack then new tootheb ivory Start Diovan 03/03/2011 Appointment: Galina Smith WPtel: [address] [place] [address] ACUTE ILLNESS 03/03/2011 Patient Education: Patient Medication Summary Completed 03/03/2011 Visit Plan: Check TSH, Free T4 toda y Pt will moniter BP at home See if treatment of sinuses helps headaches 01/27/2011 Appointment: [facility] [facility] [place] FO[facility] 01/27/2011 Patient Education: Patient Medication Summary Completed 01/27/2011 Visit Plan: Continue current meds a nd proceed with lab per kidney transplant doctor Start Synthroid at 50mcg po daily 12/02/2010 Appointment: [facility] [facility] [facility] 12/02/2010 Patient Education: Patient Medication Summary Completed 12/02/2010 Appointment: Galina Smith WPtel: [phone] [facility] [place] Suture Removal 10/20/2009 Patient Education: Patient Medication Summary Completed 10/20/2009 Instructions Comment . Decrease Levemir t o 70u q PM Use Apidra sliding scale as ordered with meals Explained to pt that BS is not too low, but due to the fact that his body is used to BS of 500-700, low 100s feels low to him Restart Diovan 320mg daily . Restart Diovan--pt says needs PA Continue fluoxetine at 20mg daily . Decrease Norvasc t o 2.5mg daily Check CBC, CMP, TSH, Free T4 . Continue levemir a t current dose with accuchecks Use apidra with sliding scale Check Chem 7 and HbA1C in 2mos . Check CMP, HbA1C, CBC, Lipids Pt sees transplant doctor next month Pt is currently just using insulin prn and monitering BS . Obtain lab done [facility] from [facility] See optometry for dilated eye exam and eye pressures today May need CT head pending results of eye evaluation . Z-pack then new to [place] Start Diovan . Continue Diovan at current dose Add amlodopine Check Lipids/LFTs with next lab . Obtain most recent lab results Will likely need HbA1C and Lipids if were not done Accuchecks q AC and HS . Continue current m eds Check fasting lab next week . Continue current m eds and proceed with lab per kidney transplant doctor Start Synthroid at 50mcg po daily . Discussed with Dr Smith Treatment as above while awaiting specialist to return his call Push fluids Follow up celine if not improving . Discussed with Dr Smith Treatment as above while awaiting specialist to return his call Push fluids Follow up celine if not improving . Continue current m eds Obtain most recent lab done at [facility] See eye doctor today for dilated exam and eye pressures May need CT head pending dilated eye exam results . Continue current m eds Obtain most recent lab done at [facility] . Continue current m eds Check CBC, CMP, TSH, Free T4 . Continue current m eds and accuchecks Pt going for fasting lab next month . Check TSH, Free T4 today Pt will moniter BP at home See if treatment of sinuses helps headaches . CBC, CMP, CRP To [facility] for CT abdomen/Pelvis w/o contrast . Saline nasal flush es prn. Tylenol/Motrin prn headache. Notify if persists/symptoms worsening. Obtain most recent lab Warned of increased BS with prednisone--has sliding scale to use . Patient admits grace t has not been watching diet--was drinking pop [...] lost sliding scale--new sliding scale given . Check CMP, TSH, Hb A1C, magnesium, UA now Hydrate and monitor blood sugar Use powerade zero in conjunction with water to stay hydrated Discussed elevated blood sugar can cause cramping as well . Check CMP, TSH, Hb A1C, magnesium, UA now Hydrate and monitor blood sugar Use powerade zero in conjunction with water to stay hydrated Discussed elevated blood sugar can cause cramping as well . Continue current m eds and acuchecks . Increase Levemir t o 75 u sc q PM Continue sliding scale insulin with accuchecks q AC and HS Call in 1wk with BS readings . Increase Diovan to 320mg po daily Check TSH and Free T4 with kidney lab next week . Lab discussed Continue current meds and accuchecks Pt sees transplant doctor in in October Check fasting lab and fwup in 3mos . Labs completed thi s am in [facility] but do not have results yet. Start Lyrica 75mg PO bid Will Call in a week and let know if pain is improved. . Labs completed thi s am in [place] but do not have results yet. Start Lyrica 75mg PO bid Will Call in a week and let know if pain is improved. . Restart Diovan and Amlodopine as has been out--new rx sent out Trial of Fluoxetine 20mg q AM Stress Reducers
--- OUTSIDE RECORDS SUMMARY | 2019-08-21 00:17 | XMS REPORT | CCD ---
Author Author Cuauhtemoc Smith D.O. Organization GALINA SMITH DO [facility] Address [address] [place] [address] Phone Care Team Providers Care Infectious Disease Technician Name Role Phone Galina Smith D.O., PP Unavailable CCM Unavailable Summary Purpose Interface Exchange Insurance Providers Payer name Policy type / Coverage type Covered constitution party ID Effective Begin Date Effective End Date Blue Cross Blue Shield Blue Cross/Bl ue Shield [id number] 2017 Un known Family History Family History data not found Social History Social History Element Codes Description Effective Dates Tobacco history SNOMED CT: 185167064 Currently uses smokeless tobacco 06/14/2011 Allergies, Adverse [...] V58.44 ICD-10: Z48.298 Active 08/24/2018 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 ICD-9: V58.69 ICD-10: [...] ICD-9: V58.44 ICD-10: Z48.298 08/24/2018 Active 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 ICD-9: V58.69 ICD-10: [...] Fill Instructions amlodipine 5 mg tablet RxNorm: 694563 1 Tablet(s) PO QD for BP 02/26/2019 08/24/2019 Active atorvastatin 80 mg t ablet RxNorm: 451196 1 Tablet(s) PO QD 02/26/2019 05/26/2019 Active Novolog Flexpen U-10 0 Insulin aspart 100 unit/mL (3 mL) subcutaneous RxNorm: 3249530 INJECT SUBCUTANEOUSLY NEEDED PER SLIDING SCALE 02/22/2019 No Stop Date Active Levemir FlexTouch U- 100 Insulin 100 unit/mL (3 mL) subcutaneous pen RxNorm: 712079 90 Unit(s) SQ BID 01/08/2019 04/07/2019 Active Levemir FlexTouch U- 100 Insulin 100 unit/mL (3 mL) subcutaneous pen RxNorm: 887584 90 Unit(s) SQ BID 12/04/2018 12/03/2018 Inactive Levemir FlexTouch U- 100 Insulin 100 unit/mL (3 mL) subcutaneous pen RxNorm: 731594 90 Unit(s) SQ BID 12/04/2018 01/07/2019 Inactive Levemir FlexTouch U- 100 Insulin 100 unit/mL (3 mL) subcutaneous pen RxNorm: 246423 70 Unit(s) SQ BID 10/26/2018 12/04/2018 Inactive Levemir FlexTouch U- 100 Insulin 100 unit/mL (3 mL) subcutaneous pen RxNorm: 120123 GIVE 90 UNITS SUBCUTANEOUSLY TWICE DAILY 10/08/2018 10/26/2018 Inactive Levemir FlexTouch U- 100 Insulin 100 unit/mL (3 mL) subcutaneous pen RxNorm: 055604 90 Unit(s) SQ BID 07/30/2018 10/07/2018 Inactive Levemir FlexTouch U- 100 Insulin 100 unit/mL (3 mL) subcutaneous pen RxNorm: 957778 90 Unit(s) SQ BID 07/06/2018 07/29/2018 Inactive Pen Needle 31 gauge x 5/16" RxNorm: USE DIRECTED 03/21/2018 No Stop Date Active Levemir FlexTouch U- 100 Insulin 100 unit/mL (3 mL) subcutaneous pen RxNorm: 583513 80 Unit(s) SQ BID 02/15/2018 07/06/2018 Inactive Levemir FlexTouch U- 100 Insulin 100 unit/mL (3 mL) subcutaneous pen RxNorm: 478365 INJECT 105 UNITS SUBCUTANEOUSLY IN THE EVENING 01/24/2018 02/15/2018 Inactive Levemir FlexTouch U- 100 Insulin 100 unit/mL (3 mL) subcutaneous pen RxNorm: 846005 INJECT 105 UNITS SUBCUTANEOUSLY IN THE EVENING 12/26/2017 01/23/2018 Inactive Novolog Flexpen U-10 0 Insulin aspart 100 unit/mL (3 mL) subcutaneous RxNorm: 8647874 INJECT SUBCUTANEOUSLY NEEDED PER SLIDING SCALE 12/25/2017 02/21/2019 Inactive Levemir FlexTouch U- 100 Insulin 100 unit/mL (3 mL) subcutaneous pen RxNorm: 396735 70 Unit(s) SQ BID 11/03/2017 11/03/2017 Inactive Levemir FlexTouch U- 100 Insulin 100 unit/mL (3 mL) subcutaneous pen RxNorm: 734145 105 Unit(s) SQ QPM 11/02/2017 11/02/2017 Inactive Levemir FlexTouch U- 100 Insulin 100 unit/mL (3 mL) subcutaneous pen RxNorm: 876801 105 Unit(s) SQ QPM Needs updated labs 11/01/2017 11/01/2017 Inactive Levemir FlexTouch U- 100 Insulin 100 unit/mL (3 mL) subcutaneous pen RxNorm: 086877 Unit(s) 105 Unit(s) SQ QPM 09/18/2017 09/18/2017 Inactive Levemir FlexTouch U- 100 Insulin 100 unit/mL (3 mL) subcutaneous pen RxNorm: 692848 105 Unit(s) SQ QPM 08/07/2017 09/18/2017 Inactive cephalexin 500 mg ca psule RxNorm: 339857 1 Capsule(s) PO BID 07/27/2017 08/02/2017 Inactive Levemir FlexTouch U- 100 Insulin 100 unit/mL (3 mL) subcutaneous pen RxNorm: 214477 105 Unit(s) SQ QPM 06/07/2017 06/07/2017 Inactive Levemir FlexTouch 10 0 unit/mL (3 mL) subcutaneous insulin pen RxNorm: 447298 105 Unit(s) SQ QPM 05/11/2017 06/07/2017 Inactive Lipitor 40 mg tablet RxNorm: 895861 1 Tablet(s) PO QD 04/05/2017 04/04/2017 Inactive nystatin 100,000 uni t/gram topical ointment RxNorm: 916441 1 Gram(s) TOP BID 04/05/2017 05/02/2017 In active Lipitor 40 mg tablet RxNorm: 464072 1.5 Tablet(s) PO QD 04/05/2017 02/25/2019 Inactive Diovan 320 mg tablet RxNorm: 828492 1 Tablet(s) PO QD 04/05/2017 02/25/2019 Inactive Levemir FlexTouch 10 0 unit/mL (3 mL) subcutaneous insulin pen RxNorm: 959810 105 Unit(s) SQ QPM 04/05/2017 04/05/2017 Inactive Levemir FlexTouch 10 0 unit/mL (3 mL) subcutaneous insulin pen RxNorm: 671570 90 Unit(s) SQ QPM LAST REFILL UNTIL LABS AND APPOINTMENT!!!! 04/05/2017 05/11/2017 Inactive Novolog Flexpen 100 unit/mL subcutaneous RxNorm: 8860137 Unit(s) INJECT SUBCU TANEOUSLY NEEDED PER SLIDING SCALE---NEEDS UPDATED LABS 03/07/2017 12/03/2018 Inactive Levemir FlexTouch 10 0 unit/mL (3 mL) subcutaneous insulin pen RxNorm: 707607 90 Unit(s) SQ QPM LAST REFILL UNTIL LABS AND APPOINTMENT!!!! 02/17/2017 03/18/2017 Inactive Levemir FlexTouch 10 0 unit/mL (3 mL) subcutaneous insulin pen RxNorm: 593601 90 Unit(s) SQ QPM NEEDS FASTING LABS AND APPOINTMENT BEFORE FURTHER REFILLS 12/22/2016 02/17/2017 In active Novolog Flexpen U-10 0 Insulin aspart 100 unit/mL subcutaneous RxNorm: 7486304 Unit(s) INJECT SUBCUTANEOUSLY NEEDED PER SLIDING SCALE---NEEDS UPDATED LABS 11/28/2016 03/07/2017 Inactive Levemir FlexTouch 10 0 unit/mL (3 mL) subcutaneous insulin pen RxNorm: 921891 90 Unit(s) VAG QPM 11/08/2016 12/22/2016 Inactive Levemir FlexTouch 10 0 unit/mL (3 mL) subcutaneous insulin pen RxNorm: 820205 90 Unit(s) VAG QPM 11/08/2016 12/21/2016 Inactive Levemir FlexTouch 10 0 unit/mL (3 mL) subcutaneous insulin pen RxNorm: 599619 80 Unit(s) VAG QPM 09/05/2016 11/08/2016 Inactive Levemir FlexTouch 10 0 unit/mL (3 mL) subcutaneous insulin pen RxNorm: 576659 85 Unit(s) SQ QD 07/22/2016 09/05/2016 Inactive Levemir FlexTouch 10 0 unit/mL (3 mL) subcutaneous insulin pen RxNorm: 750795 85 Unit(s) SQ QD 07/04/2016 07/21/2016 Inactive Levemir FlexTouch 10 0 unit/mL (3 mL) subcutaneous insulin pen RxNorm: 107566 85 Unit(s) SQ QD 06/14/2016 06/19/2016 Inactive Levemir FlexTouch 10 0 unit/mL (3 mL) subcutaneous insulin pen RxNorm: 540342 85 Unit(s) SQ QD 05/03/2016 05/22/2016 Inactive Levemir FlexTouch 10 0 unit/mL (3 mL) subcutaneous insulin pen RxNorm: 485077 85 Unit(s) SQ QD 05/03/2016 05/02/2016 Inactive Levemir FlexTouch 10 0 unit/mL (3 mL) subcutaneous insulin pen RxNorm: 977124 85 Unit(s) SQ QD 03/14/2016 04/22/2016 Inactive cefuroxime axetil 25 0 mg tablet RxNorm: 016577 1 Tablet(s) PO BID 02/16/2016 02/25/2016 Inactive Levemir FlexTouch 10 0 unit/mL (3 mL) subcutaneous insulin pen RxNorm: 416182 85 Unit(s) SQ QD 02/03/2016 03/13/2016 Inactive Levemir FlexTouch 10 0 unit/mL (3 mL) subcutaneous insulin pen RxNorm: 907619 85 Unit(s) SQ QD 12/07/2015 02/02/2016 Inactive Pen Needle 31 gauge x 5/16" RxNorm: USE DIRECTED 11/19/2015 05/16/2016 Inactive Levemir FlexTouch 10 0 unit/mL (3 mL) subcutaneous insulin pen RxNorm: 253116 INJECT 75 UNITS SUBCUTANEOUSLY ONCE DAILY; NEED LABS AND APPT 10/06/2015 12/04/2015 Inactive Novolog Flexpen 100 unit/mL subcutaneous RxNorm: 3329781 INJECT SUBCUTANEOUSL Y NEEDED PER SLIDING SCALE 09/15/2015 11/28/2016 Inactive Levemir FlexTouch 10 0 unit/mL (3 mL) subcutaneous insulin pen RxNorm: 107763 75 Unit(s) SQ QD Needs lab and appointment 07/13/2015 10/05/2015 Inactive Lyrica 75 mg capsule RxNorm: 607992 1 Capsule(s) PO BID 06/24/2015 07/23/2015 Inactive Levemir FlexTouch 10 0 unit/mL (3 mL) subcutaneous insulin pen RxNorm: 156394 75 Unit(s) SQ QD Needs lab and appointment 06/23/2015 07/12/2015 Inactive Novolog Flexpen 100 unit/mL subcutaneous RxNorm: 8921303 Unit(s) SQ as needed Sliding scale 06/15/2015 09/14/2015 Inactive Flonase Allergy Reli ef 50 mcg/actuation nasal spray,suspension RxNorm: 2 [place] NASAL QHS 06/11/2015 12/02/2015 Inactive prednisone 20 mg tablet RxNorm: 671838 1 Tablet(s) PO TID for 3 days then 1 po BID for 3 days then one daily for 3 days 06/11/2015 12/02/2015 Inactive cefdinir 300 mg capsule RxNorm: 590953 2 Capsule(s) PO QD 06/11/2015 06/24/2015 Inactive Levemir FlexTouch 10 0 unit/mL (3 mL) subcutaneous insulin pen RxNorm: 249219 75 Unit(s) SQ QD Needs lab and appointment 05/29/2015 06/22/2015 Inactive Novolog 100 unit/mL subcutaneous solution RxNorm: 040556 Unit(s) SQ Inject as directed using sliding scale B 05/29/2015 12/03/2018 Inactive Levemir Flexpen 100 unit/mL (3 mL) solution subcutaneous insulin pen RxNorm: 593822 INJECT 75 UNITS SUBCUTANEOUSLY EVERY DAY 05/11/2015 05/29/2015 Inactive Levemir FlexTouch 10 0 unit/mL (3 mL) subcutaneous insulin pen RxNorm: 775211 75 Unit(s) SQ QHS 03/30/2015 12/03/2018 Inactive Levemir FlexTouch 10 0 unit/mL (3 mL) subcutaneous insulin pen RxNorm: 617194 75 Unit(s) SQ QHS 03/09/2015 03/29/2015 Inactive Contour Test Strips RxNorm: Miscellaneous 01/27/2015 No Stop Date Active Novolog 100 unit/mL subcutaneous solution RxNorm: 704465 Unit(s) SQ Inject as directed using sliding scale B 01/27/2015 05/29/2015 Inactive Levemir Flexpen 100 unit/mL (3 mL) solution subcutaneous insulin pen RxNorm: 200327 INJECT 75 UNITS SUBCUTANEOUSLY EVERY DAY 11/05/2014 03/09/2015 Inactive Levemir Flexpen 100 unit/mL (3 mL) solution subcutaneous insulin pen RxNorm: 752829 INJECT 75 UNITS SUBCUTANEOUSLY EVERY DAY 08/13/2014 10/31/2014 Inactive Novolog 100 unit/mL subcutaneous solution RxNorm: 721469 Unit(s) SQ Inject as directed using sliding scale B 07/15/2014 01/26/2015 Inactive Apidra SoloStar 100 unit/mL subcutaneous insulin pen RxNorm: 588174 Unit(s) SQ INJECT DIRECTED USING SLIDING SCALE B 07/11/2014 07/14/2014 Inactive Diovan 320 mg tablet RxNorm: 000279 1 Tablet(s) PO QD 06/10/2014 06/04/2015 Inactive Apidra SoloStar 100 unit/mL subcutaneous insulin pen RxNorm: 668539 Unit(s) SQ INJECT DIRECTED USING SLIDING SCALE B 04/18/2014 07/10/2014 Inactive Levemir Flexpen 100 unit/mL (3 mL) solution subcutaneous insulin pen RxNorm: 971468 Unit(s) SQ INJECT 75 UNITS SUBCUTANEOUSLY EVERY DAY 02/28/2014 02/27/2014 Inactive [SAVINGS FOR UNINSURED PATIENTS -- BIN:[id number], PCN: [email or web address], Group: [facility], ID# [id number], Process claim through [employer], for questions: . THIS IS NOT INSURANCE.] Apidra SoloStar 100 unit/mL subcutaneous insulin pen RxNorm: 974113 Unit(s) SQ INJECT DIRECTED USING SLIDING SCALE B 09/05/2013 04/17/2014 Inactive Pen Needle 31 gauge x 5/16" RxNorm: Miscellaneous USE DIRECT ED WITH LEVEMIR AND APIDRA 08/23/2013 11/18/2015 Inactive Prograf 1 mg capsule RxNorm: 639829 2 Capsule(s) PO BID Generic OK to fill 08/21/2013 No Stop Date Active Diovan 320 mg tablet RxNorm: 632594 1 Tablet(s) PO QD 05/30/2013 05/24/2014 Inactive fluoxetine 20 mg tablet RxNorm: 123718 1 Tablet(s) PO QAM 05/30/2013 07/31/2013 Inactive fluoxetine 20 mg tablet RxNorm: 745017 1 Tablet(s) PO QAM 04/29/2013 05/29/2013 Inactive amlodipine 5 mg tablet RxNorm: 254623 1 Tablet(s) PO QD 04/29/2013 02/25/2019 Inactive ketoconazole 2 % top ical cream RxNorm: 822170 Application TOP BID f or 2-4wks 04/29/2013 05/12/2013 In active Diovan 320 mg tablet RxNorm: 281389 1 Tablet(s) PO QD 04/29/2013 06/10/2014 Inactive Apidra SoloStar 100 unit/mL subcutaneous insulin pen RxNorm: 111787 Unit(s) SQ Sliding Scale B 02/19/2013 09/05/2013 Inactive Levemir Flexpen 100 unit/mL (3 mL) solution subcutaneous insulin pen RxNorm: 730561 Insulin Pen SQ INJECT 75 UNITS SUBCUTANEOUSLY EVERY DA Y 01/21/2013 02/28/2014 Inactive Septra DS 800 mg-160 mg tablet RxNorm: 123150 1 Tablet(s) PO BID an tibiotic 01/01/2013 01/07/2013 In active ketoconazole 2 % top ical cream RxNorm: 369918 1 Application TOP BID 01/01/2013 01/14/2013 Inactive Levemir Flexpen 100 unit/mL (3 mL) Sub-Q Insulin Pen RxNorm: 327029 Unit(s) SQ INJECT 75 UNITS SUB-Q ONCE A DAY 12/07/2012 No Stop Date Active Levemir Flexpen 100 unit/mL (3 mL) Sub-Q Insulin Pen RxNorm: 641796 Unit(s) SQ INJECT 75 UNITS SUB-Q ONCE A DAY 10/22/2012 12/07/2012 Inactive Levemir Flexpen 100 unit/mL (3 mL) Sub-Q Insulin Pen RxNorm: 677182 75 Unit(s) SQ QHS 08/20/2012 10/22/2012 Inactive Diovan 320 mg tablet RxNorm: 366131 1 Tablet(s) PO QD 07/30/2012 04/28/2013 Inactive Levemir Flexpen 100 unit/mL (3 mL) Sub-Q Insulin Pen RxNorm: 294667 Insulin Pen SQ INJECT 75 UNITS SUB-Q ONCE A DAY 07/30/2012 10/21/2012 Inactive Levemir Flexpen 100 unit/mL (3 mL) Sub-Q Insulin Pen RxNorm: 738419 75 Unit(s) SQ QHS 07/30/2012 08/19/2012 Inactive Levemir Flexpen 100 unit/mL (3 mL) Sub-Q Insulin Pen RxNorm: 019554 75 Unit(s) SQ QHS 07/30/2012 07/29/2012 Inactive Diovan 320 mg tablet RxNorm: 852693 1 Tablet(s) PO QD 06/21/2012 06/20/2012 Inactive Diovan 320 mg tablet RxNorm: 592863 1 Tablet(s) PO QD 06/21/2012 06/20/2012 Inactive Diovan 320 mg tablet RxNorm: 960751 1 Tablet(s) PO QD 06/21/2012 07/29/2012 Inactive CellCept 250 mg capsule RxNorm: 624935 4 Capsule(s) PO BID 06/14/2012 06/20/2012 Inactive Prograf 1 mg capsule RxNorm: 190758 2 Capsule(s) PO BID Generic OK to fill 06/14/2012 06/20/2012 In active Apidra SoloStar 100 unit/mL Sub-Q Insulin Pen RxNorm: 062580 Unit(s) SQ Sliding Sc supriya B 06/13/2012 12/03/2018 Inactive Levemir Flexpen 100 unit/mL (3 mL) Sub-Q Insulin Pen RxNorm: 147455 75 Unit(s) SQ QD 06/13/2012 No Stop Date Active Apidra SoloStar 100 unit/mL Sub-Q Insulin Pen RxNorm: 498391 Unit(s) SQ Sliding Sc supriya B 06/13/2012 No Stop Date Active One Touch Delica Adeel cets RxNorm: Miscellaneous 0 06/13/2012 04/04/2017 Inactive Lipitor 40 mg tablet RxNorm: 431190 1 Tablet(s) PO QD 05/30/2012 08/27/2012 Inactive Diovan 320 mg tablet RxNorm: 910509 1 Tablet(s) PO QD 05/30/2012 06/20/2012 Inactive Tricor 145 mg tablet RxNorm: 796482 1 Tablet(s) PO QD 05/30/2012 08/27/2012 Inactive Lipitor 20 mg Tab RxNorm: 810176 1 Tablet(s) PO QD 09/12/2011 05/29/2012 Inactive Synthroid 50 mcg Tab RxNorm: 807821 1 Tablet(s) PO QD 09/12/2011 12/02/2015 Inactive Diovan 320 mg tablet RxNorm: 073989 1 Tablet(s) PO QD 09/12/2011 03/09/2012 Inactive amlodipine 5 mg tablet RxNorm: 755009 1 Tablet(s) PO QD 09/12/2011 03/09/2012 Inactive Diovan 320 mg Tab RxNorm: 110137 1 Tablet(s) PO QD 06/14/2011 09/11/2011 Inactive Diovan 160 mg Tab RxNorm: 675780 1 Tablet(s) PO QD 03/03/2011 06/13/2011 Inactive cefdinir 300 mg Cap RxNorm: 094529 2 Capsule(s) PO QD 01/27/2011 02/05/2011 Inactive Synthroid 50 mcg Tab RxNorm: 922629 1 Tablet(s) PO QD 12/02/2010 01/30/2011 Inactive Multivitamin & [place] al Formula Tab RxNorm: 1 Tablet(s) PO QD No Start Date Active Miralax 17 gram/dose oral powder RxNorm: 902337 PO BID in 6-8 ounces of water No Start Date Active Tylenol Extra Streng th 500 mg tablet RxNorm: 951335 Tablet(s) PO as neede d No Start Date Active pantoprazole 40 mg t ablet,delayed release RxNorm: 211511 1 Tablet(s) PO QD No Start Date Active Tricor Oral RxNorm: Oral No Start Date 05/29 Inactive MagOx 400 mg tablet RxNorm: 029908 1 Tablet(s) PO QD No Start Date 06/19/2016 Inactive sodium bicarbonate Oral RxNorm: Oral No Start Date 06/19/2016 Inactive Fish Oil 1,000 mg ca psule RxNorm: 1 Capsule(s) PO QD No Start Date 04/04/2017 Inactive Novofine Misc RxNorm: Miscellaneous No Start Date 06/12/2012 Inactive Percocet 5 mg-325 mg tablet RxNorm: 7730348 Tablet(s) PO as need ed Dr Parson No Start Date 04/04/2017 Inactive Contour Test Strips RxNorm: miscellaneous No Start Date 01/26/2015 Inactive Prograf 1 mg capsule RxNorm: 924456 2 Capsule(s) PO BID No Start Date 06/13/2012 Inactive Zantac 150 mg Tab RxNorm: 922973 Tablet(s) PO PRN No Start Date 12/02/2015 Inactive Levemir FlexTouch 10 0 unit/mL (3 mL) subcutaneous insulin pen RxNorm: 411764 75 Unit(s) SQ QHS No Start Date 03/08/2015 Inactive CellCept 250 mg capsule RxNorm: 380620 4 Capsule(s) PO BID No Start Date 06/13/2012 Inactive Novolog 100 unit/mL subcutaneous solution RxNorm: 830239 Unit(s) SQ Inject as directed using sliding scale B No Start Date 07/14/2014 Inactive Novolog Flexpen 100 unit/mL subcutaneous RxNorm: 7968229 Unit(s) SQ as needed Sliding scale No Start Date 06/14/2015 Inactive Apidra SoloStar 100 unit/mL Sub-Q Insulin Pen RxNorm: 455573 Unit(s) SQ Sliding Sc supriya B No Start Date 06/12/2012 Inactive Levemir FlexTouch U- 100 Insulin 100 unit/mL (3 mL) subcutaneous pen RxNorm: 461030 70 Unit(s) SQ BID No Start Date 02/06/2018 Inactive Pen Needle 31 X 5/16" RxNorm: Miscellaneous No Start Date 08/23/2013 Inactive Synthroid 50 mcg Tab RxNorm: 076602 1 Tablet(s) PO QD No Start Date 09/11/2011 Inactive Levemir Flexpen 100 unit/mL (3 mL) Sub-Q Insulin Pen RxNorm: 393326 70 Unit(s) SQ QHS No Start Date 07/29/2012 Inactive Levemir FlexTouch U- 100 Insulin 100 unit/mL (3 mL) subcutaneous pen RxNorm: 700859 80 Unit(s) SQ BID No Start Date 02/14/2018 Inactive Levemir FlexTouch 10 0 unit/mL (3 mL) subcutaneous insulin pen RxNorm: 322300 80 Unit(s) SQ QPM No Start Date 09/04/2016 Inactive Lipitor 40 mg tablet RxNorm: 336846 1 Tablet(s) PO QD No Start Date 04/04/2017 Inactive Ultram 50 mg tablet RxNorm: 604630 2 Tablet(s) PO TID as needed for pain No Start Date 06/10/2015 Inactive Prograf 1 mg Cap RxNorm: 982594 2 Capsule(s) PO BID No Start Date 05/20/2012 Inactive insulin needles (dis posable) 32 x 5/16" RxNorm: Miscellaneous for use with flex pen No Start Date 04/04/2017 Inactive Levemir FlexTouch U- 100 Insulin 100 unit/mL (3 mL) subcutaneous pen RxNorm: 550443 90 Unit(s) SQ BID No Start Date 07/05/2018 Inactive Levemir Flexpen 100 unit/mL (3 mL) Sub-Q Insulin Pen RxNorm: 320253 65 Unit(s) SQ QD No Start Date 06/12/2012 Inactive Zithromax Z-Mateus 250 mg Tab RxNorm: 644168 Tablet(s) PO No Start Date 06/13/2011 Inactive as directed Lipitor 20 mg Tab RxNorm: 559762 1 Tablet(s) PO QD No Start Date [...] ICD- 10: Z48.298 ICD-9: V58.44 08/24/2018 Other [facility] (current[facility] drug therapy ICD-10: Z79.899 ICD-9: V58.69 [...] Observation Code Item Item Code Result Date MAGNESIUM 71010 MAGNESIUM 1.4 mEq/L 02/19/2019 GFR CALC 5001078 GFR Non Afr Amr 37 mL/min 02/19/2019 GFR CALC 6646084 GFR Afr Amr 45 mL/min 02/19/2019 L[facility] GROUP 37731 Choles terol 250 mg/dL 02/19/2019 L[facility] GROUP 50017 Trigly ceride 465 mg/dL 02/19/2019 [facility] GROUP 64377 HDL CH OLESTEROL 30 mg/dL 02/19/2019 [facility] GROUP 27358 Chol/H DL Ratio 8.33 ratio 02/19/2019 [facility] GROUP 08272 NON-HD L Chol 220 mg/dL 02/19/2019 L[facility] GROUP 33658 LDL Ch olesterol N/A Trig >400 019 LIP[facility] GROUP 76215 Fasting Unknown 02/19/2019 COMPREHENSIVE METABOLIC 59074 AST 20 U/L 02/19/2019 COMPREHENSIVE METABOLIC 95320 ALT 30 U/L 02/19/2019 COMPREHENSIVE METABOLIC 40185 BUN 27 mg/dL 02/19/2019 COMPREHENSIVE METABOLIC 33315 ALBUMIN 3.7 g/dL 02/19/2019 COMPREHENSIVE METABOLIC 92465 CHLORIDE 105 mmol/L 02/19/2019 COMPREHENSIVE METABOLIC 99108 Bili Total 0.5 mg/dL 02/19/2019 COMPREHENSIVE METABOLIC 87498 ALK PHOS 79 U/L 02/19/2019 COMPREHENSIVE METABOLIC 59924 SODIUM 137 mmol/L 02/19/2019 COMPREHENSIVE METABOLIC 15495 CREATININE 2.10 mg/dL 02/19/2019 COMPREHENSIVE METABOLIC 35297 CALCIUM 9.5 mg/dL 02/19/2019 COMPREHENSIVE METABOLIC 04133 POTASSIUM 4.2 mmol/L 02/19/2019 COMPREHENSIVE METABOLIC 45638 Total Protein 6.5 g/dL 02/19/2019 COMPREHENSIVE METABOLIC 25410 Glucose 202 mg/dL 02/19/2019 COMPREHENSIVE METABOLIC 51080 Bicarbonate 22 mmol/L 02/19/2019 COMPREHENSIVE METABOLIC 57952 AGAP 10 mmol/L 02/19/2019 LIPID GROUP 96090 Choles terol 320 mg/dL 08/27/2018 LIPID GROUP 00922 Trigly ceride 444 mg/dL 08/27/2018 LIPID GROUP 51603 HDL CH OLESTEROL 39 mg/dL 08/27/2018 LIPID GROUP 63138 Chol/H DL Ratio 8.21 ratio 08/27/2018 LIPID GROUP 86127 NON-HD L Chol 281 mg/dL 08/27/2018 LIP[facility] GROUP 94270 LDL Ch olesterol N/A Trig >400 019 LIP[facility] GROUP 49208 Fasting Unknown 08/27/2018 PHOSPHORUS 5829846 PHOSP HORUS 2.1 mg/dL 08/24/2018 PROTEIN/CREAT URINE WITH RATIO 11171|61385 U Protein 515 mg/dL 08/24/2018 PROTEIN/CREAT URINE WITH RATIO 06719|28137 U Creatinine 116 mg/dL 08/24/2018 PROTEIN/CREAT URINE WITH RATIO 85787|37115 Prot:Creat Rat 4440 mg/g 08/24/2018 MAGNESIUM 27533 MAGNESIUM 1.4 mEq/L 08/24/2018 GFR CALC 7461033 GFR Non Afr Amr 44 mL/min 08/24/2018 GFR CALC 4306098 GFR Afr Amr 53 mL/min 08/24/2018 [place] [address] Glucose TNP:Unknown Cancel Reason 08/24/2018 [place] [address] CREATININE TNP:Unknown Cancel Reason 08/24/2018 [place] [address] BUN TNP:Unknown Cancel Reason 08/24/2018 [place] [address] SODIUM TNP:Unknown Cancel Reason 08/24/2018 [place] [address] POTASSIUM TNP:Unknown Cancel Reason 08/24/2018 [place] [address] CHLORIDE TNP:Unknown Cancel Reason 08/24/2018 [place] [address] Bicarbonate TNP:Unknown Cancel Reason 08/24/2018 [place] [address] AGAP TNP:Unknown Cancel Reason 08/24/2018 [place] [address] CALCIUM TNP:Unknown Cancel Reason 08/24/2018 COMPREHENSIVE METABOLIC 16471 AST 21 U/L 08/24/2018 COMPREHENSIVE METABOLIC 91809 ALT 35 U/L 08/24/2018 COMPREHENSIVE METABOLIC 54805 BUN 25 mg/dL 08/24/2018 COMPREHENSIVE METABOLIC 46806 ALBUMIN 4.5 g/dL 08/24/2018 COMPREHENSIVE METABOLIC 46600 CHLORIDE 106 mmol/L 08/24/2018 COMPREHENSIVE METABOLIC 63632 Bili Total 0.4 mg/dL 08/24/2018 COMPREHENSIVE METABOLIC 40620 ALK PHOS 64 U/L 08/24/2018 COMPREHENSIVE METABOLIC 81058 SODIUM 141 mmol/L 08/24/2018 COMPREHENSIVE METABOLIC 17225 CREATININE 1.81 mg/dL 08/24/2018 COMPREHENSIVE METABOLIC 43598 CALCIUM 10.3 mg/dL 08/24/2018 COMPREHENSIVE METABOLIC 07429 POTASSIUM 3.4 mmol/L 08/24/2018 COMPREHENSIVE METABOLIC 58143 Total Protein 7.2 g/dL 08/24/2018 COMPREHENSIVE METABOLIC 21261 Glucose 101 mg/dL 08/24/2018 COMPREHENSIVE METABOLIC 19188 Bicarbonate 23 mmol/L 08/24/2018 COMPREHENSIVE METABOLIC 48460 AGAP 12 mmol/L 08/24/2018 UA W/MICR 78254 UA Urine Appear Normal 08/24/2018 UA W/MICR 42755 UA Prote in 3+ 08/24/2018 UA W/MICR 69851 UA Hemog lobin Trace 08/24/2018 UA W/MICR 52910 UA Gluco se 3+ 08/24/2018 UA W/MICR 86741 UA [place] es Negative 08/24/2018 UA W/MICR 85548 UA pH 6.0 08/24/2018 UA W/MICR 77076 U Spec G ravity 1.025 08/24/2018 UA W/MICR 69394 UA Bilir ubin Negative 08/24/2018 UA W/MICR 24357 UA Leuk Esteras Negative 08/24/2018 UA W/MICR 82024 UA Nitri te NEG 08/24/2018 UA W/MICR 86185 UA WBC/h pf 1 08/24/2018 UA W/MICR 72340 UA RBC a uto 12.9 /uL 08/24/2018 UA W/MICR 99611 UA RBC h pf 2 08/24/2018 UA W/MICR 05435 UA WBC a uto 5.9 /uL 08/24/2018 UA W/MICR 66859 UA SQ EP I auto 5.2 /uL 08/24/2018 UA W/MICR 17739 UA H Jamil t auto 0.10 /uL 08/24/2018 PROGRAF 6373829 Prograf 7.3 ng/mL 08/24/2018 MICROALBUMIN URINE RANDOM 69385 U Microalbumin 3485.2 mg/L 08/24/2018 MICROALBUMIN URINE RANDOM 03243 U Creatinine 116 mg/dL 08/24/2018 MICROALBUMIN URINE RANDOM 65765 ALB/CR Ratio 3004.5 mg/gCR 08/25/19 19 GLYCOSYLATED HEMOGLOBIN TEST 99976 Hgb A1c 67566-7 13.3 % 9 MEAN GLUC Calc M sherron Gluc 335 mg/dL 06/29/2018 COMPREHENSIVE METABOLIC 73959 AST 17 U/L 02/06/2018 COMPREHENSIVE METABOLIC 25254 ALT 24 U/L 02/06/2018 COMPREHENSIVE METABOLIC 09607 BUN 24 mg/dL 02/06/2018 COMPREHENSIVE METABOLIC 29713 ALBUMIN 3.9 g/dL 02/06/2018 COMPREHENSIVE METABOLIC 17340 CHLORIDE 108 mmol/L 02/06/2018 COMPREHENSIVE METABOLIC 96075 Bili Total 0.6 mg/dL 02/06/2018 COMPREHENSIVE METABOLIC 07946 ALK PHOS 67 U/L 02/06/2018 COMPREHENSIVE METABOLIC 54071 SODIUM 140 mmol/L 02/06/2018 COMPREHENSIVE METABOLIC 44163 CREATININE 1.75 mg/dL 02/06/2018 COMPREHENSIVE METABOLIC 77845 CALCIUM 9.6 mg/dL 02/06/2018 COMPREHENSIVE METABOLIC 13440 POTASSIUM 3.8 mmol/L 02/06/2018 COMPREHENSIVE METABOLIC 40335 Total Protein 7.1 g/dL 02/06/2018 COMPREHENSIVE METABOLIC 65941 Glucose 62 mg/dL 02/06/2018 COMPREHENSIVE METABOLIC 37222 Bicarbonate 23 mmol/L 02/06/2018 COMPREHENSIVE METABOLIC 89670 AGAP 9 mmol/L 02/06/2018 GLYCOSYLATED HEMOGLOBIN TEST 30050 Hgb A1c 06969-6 13.0 % 8 GFR CALC 0010913 GFR Non Afr Amr 46 mL/min 02/06/2018 GFR CALC 1610295 GFR Afr Amr 55 mL/min 02/06/2018 MICROALBUMIN URINE RANDOM 16860 U Microalbumin 669.0 mg/L 02/06/2018 MICROALBUMIN URINE RANDOM 26688 U Creatinine 92 mg/dL 02/06/2018 MICROALBUMIN URINE RANDOM 98446 ALB/CR Ratio 727.2 mg/gCR 8 MEAN GLUC Calc M sherron Gluc 326 mg/dL 02/06/2018 GLYCOSYLATED HEMOGLOBIN TEST 61496 Hgb A1c 01760-2 14.3 % 6 THYROID STIMULATING HORMONE 89895 TSH 1.909 uIU/mL 6 MAGNESIUM 56461 MAGNESIUM 1.5 mEq/L 12/03/2015 GFR CALC 9203719 GFR Non Afr Amr 39 mL/min 12/03/2015 GFR CALC 6774963 GFR Afr Amr 48 mL/min 12/03/2015 MEAN GLUC 1997061 Mean G lucose 364 mg/dL 12/03/2015 COMPREHENSIVE METABOLIC 85431 AST 34 U/L 12/03/2015 COMPREHENSIVE METABOLIC 21768 ALT 78 U/L 12/03/2015 COMPREHENSIVE METABOLIC 78536 BUN 29 mg/dL 12/03/2015 COMPREHENSIVE METABOLIC 01132 ALBUMIN 4.3 g/dL 12/03/2015 COMPREHENSIVE METABOLIC 90819 CHLORIDE 93 mmol/L 12/03/2015 COMPREHENSIVE METABOLIC 34296 Bili Total 0.7 mg/dL 12/03/2015 COMPREHENSIVE METABOLIC 27226 ALK PHOS 83 U/L 12/03/2015 COMPREHENSIVE METABOLIC 97593 SODIUM 125 mmol/L 12/03/2015 COMPREHENSIVE METABOLIC 20901 CREATININE 2.01 mg/dL 12/03/2015 COMPREHENSIVE METABOLIC 65188 CALCIUM 9.8 mg/dL 12/03/2015 COMPREHENSIVE METABOLIC 85722 POTASSIUM 4.3 mmol/L 12/03/2015 COMPREHENSIVE METABOLIC 69379 Total Protein 7.3 g/dL 12/03/2015 COMPREHENSIVE METABOLIC 06685 Glucose 542 mg/dL 12/03/2015 COMPREHENSIVE METABOLIC 82537 Bicarbonate 23 mmol/L 12/03/2015 COMPREHENSIVE METABOLIC 16909 AGAP 9 mmol/L 12/03/2015 COMPREHENSIVE METABOLIC 32307 AST 31 U/L 07/30/2013 COMPREHENSIVE METABOLIC 66987 ALT 52 IU/L 07/30/2013 COMPREHENSIVE METABOLIC 07369 BUN 26 MG/DL 07/30/2013 COMPREHENSIVE METABOLIC 42199 ALBUMIN 4.9 GM/DL 07/30/2013 COMPREHENSIVE METABOLIC 08395 CHLORIDE 108 MMOL/L 07/30/2013 COMPREHENSIVE METABOLIC 03145 BILI TOT 0.4 MG/DL 07/30/2013 COMPREHENSIVE METABOLIC 74128 ALK PHOS 68 U/L 07/30/2013 COMPREHENSIVE METABOLIC 48991 SODIUM 138 MMOL/L 07/30/2013 COMPREHENSIVE METABOLIC 76097 CREATININE 2.02 MG/DL 07/30/2013 COMPREHENSIVE METABOLIC 72018 CALCIUM 10.3 MG/DL 07/30/2013 COMPREHENSIVE METABOLIC 72480 POTASSIUM 5.0 MMOL/L 07/30/2013 COMPREHENSIVE METABOLIC 27482 PROT TOT 7.3 GM/DL 07/30/2013 COMPREHENSIVE METABOLIC 16008 Glucose 89 MG/DL 07/30/2013 COMPREHENSIVE METABOLIC 09015 BICARB 24 MMOL/L 07/30/2013 COMPREHENSIVE METABOLIC 88941 ANION GAP 6 MEQ/L 07/30/2013 GFR CALC 3014274 GFR AA 48.0L ML/MIN 07/30/2013 GFR CALC 8691230 GFR NON -AA 40.0L ML/MIN 4 COMPLETE BLOOD COUNT 1221621 WBC 7.9 10e9/L 07/30/2013 COMPLETE BLOOD COUNT 9642264 RBC 4.94 10e12/L 4 COMPLETE BLOOD COUNT 2401344 HGB 14.0 g/dL 07/30/2013 COMPLETE BLOOD COUNT 1250863 HCT DET 41.5 % 07/30/2013 COMPLETE BLOOD COUNT 6521402 MCV 84.0 fL 07/30/2013 COMPLETE BLOOD COUNT 1892658 MCH 28.3 pg 07/30/2013 COMPLETE BLOOD COUNT 4924873 MCHC 33.7 g/dL 07/30/2013 COMPLETE BLOOD COUNT 8737196 PLT 176 10e9/L 07/30/2013 COMPLETE BLOOD COUNT 8711066 MPV 11.8 fL 07/30/2013 COMPLETE BLOOD COUNT 7665963 CLAYTON % 75.4 % 07/30/2013 COMPLETE BLOOD COUNT 7480474 LY % 13.7 % 07/30/2013 COMPLETE BLOOD COUNT 8691057 MON % 8.9 % 07/30/2013 COMPLETE BLOOD COUNT 8241769 EOS % 1.7 % 07/30/2013 COMPLETE BLOOD COUNT 5182510 BASO % 0.3 % 07/30/2013 COMPLETE BLOOD COUNT 2349497 RDW 13.4 % 07/30/2013 COMPLETE BLOOD COUNT 8615918 ABS CLAYTON 5.96 10e9/L 07/30/2013 COMPLETE BLOOD COUNT 3274901 ABS LYMPH 1.08 10e9/L 07/30/2013 COMPLETE BLOOD COUNT 2888445 ABS MONO 0.70 10e9/L 07/30/2013 COMPLETE BLOOD COUNT 3420715 ABS EOS 0.13 10e9/L 07/30/2013 COMPLETE BLOOD COUNT 2550359 ABS BASO 0.02 10e9/L 07/30/2013 COMPLETE BLOOD COUNT 1144784 RDW-SD 40.2 fL 07/30/2013 C-REACTIVE PROTEIN (CRP) QUANT 55667 CRP 0.2 MG/DL 07/30/2013 CANCEL 1534885 CANCEL FOOTNOTE 05/23/2012 PEND CHEM PEND C HEM FOOTNOTE 05/22/2012 COMPREHENSIVE METABOLIC 31738 AST 61 U/L 05/21/2012 COMPREHENSIVE METABOLIC 95441 ALT 106 U/L 05/21/2012 COMPREHENSIVE METABOLIC 59078 BUN 33 MG/DL 05/21/2012 COMPREHENSIVE METABOLIC 59077 ALBUMIN 5.0 GM/DL 05/21/2012 COMPREHENSIVE METABOLIC 33158 CHLORIDE 89 MMOL/L 05/21/2012 COMPREHENSIVE METABOLIC 45139 BILI TOT 0.6 MG/DL 05/21/2012 COMPREHENSIVE METABOLIC 83244 ALK PHOS 129 U/L 05/21/2012 COMPREHENSIVE METABOLIC 19331 SODIUM 120 MMOL/L 05/21/2012 COMPREHENSIVE METABOLIC 46046 CREATININE 2.23 MG/DL 05/21/2012 COMPREHENSIVE METABOLIC 27792 CALCIUM 9.8 MG/DL 05/21/2012 COMPREHENSIVE METABOLIC 11274 POTASSIUM 5.3 MMOL/L 05/21/2012 COMPREHENSIVE METABOLIC 99485 PROT TOT 7.8 GM/DL 05/21/2012 COMPREHENSIVE METABOLIC 95045 Glucose 789 MG/DL 05/21/2012 COMPREHENSIVE METABOLIC 79981 BICARB 20 MMOL/L 05/21/2012 COMPREHENSIVE METABOLIC 78220 ANION GAP 11 MMOL/L 05/21/2012 GFR CALC 1133612 GFR AA 43.0L ML/MIN 05/21/2012 GFR CALC 4319154 GFR NON -AA 36.0L ML/MIN 2 THYROID STIMULATING HORMONE 60576 TSH 1.499 uIU/ML 1 FREE T4 14453 FREE T4 1.15 NG/DL 01/27/2011 Review of [...] mellitus type 2 04/05/2017 Endocrine No goiter 0 02/2017 Endocrine No hyperglycemia 06/20/2016 Endocrine No [...] Procedures Procedure Codes Date ROUTINE VENIPUNCTURE CPT-4: 48004 02/26/2019 A1C HPLC CPT-4: 98995 02/26/2019 MICROALBUMIN QUANTIT ATIVE CPT-4: 92219 02/26/2019 ROUTINE VENIPUNCTURE CPT-4: 25252 02/19/2019 METABOLIC PANEL TOTA L CA CPT-4: 27655 02/19/2019 MICROALBUMIN, QUANTI TATIVE CPT-4: 20621 02/19/2019 LIPID PANEL CPT-4: 67999 02/19/2019 COMPREHEN METABOLIC PANEL CPT-4: 84978 02/19/2019 ASSAY OF MAGNESIUM CPT- 4: 60319 02/19/2019 METABOLIC PANEL TOTA L CA CPT-4: 88597 08/24/2018 COMPREHEN METABOLIC PANEL CPT-4: 21555 08/24/2018 ASSAY OF MAGNESIUM CPT- 4: 99834 08/24/2018 MICROALBUMIN QUANTIT ATIVE CPT-4: 67995 08/24/2018 PROTEIN/CREAT URINE WITH RATIO CPT-4: 06726|02090 08/24/2018 PHOSPHORUS CPT-4: 6911627 08/24/2018 LIPID PANEL CPT-4: 06329 08/24/2018 ROUTINE VENIPUNCTURE CPT-4: 08583 06/29/2018 A1C HPLC CPT-4: 18605 06/29/2018 URINALYSIS NONAUTO W /O SCOPE CPT-4: 03309 02/06/2018 URINE CULTURE/ COLON Y COUNT CPT-4: 74194 02/06/2018 MICROALBUMIN QUANTIT ATIVE CPT-4: 44607 02/06/2018 ROUTINE VENIPUNCTURE CPT-4: 28176 02/06/2018 COMPREHEN METABOLIC PANEL CPT-4: 01468 02/06/2018 A1C HPLC CPT-4: 87476 02/06/2018 ROUTINE VENIPUNCTURE CPT-4: 01724 11/02/2017 COMPREHEN METABOLIC PANEL CPT-4: 57878 11/02/2017 A1C HPLC CPT-4: 48274 11/02/2017 TDAP VACCINE 7 YRS/> IM CPT-4: 07880 07/27/2017 IMMUNIZATION ADMIN CPT- 4: 68766 07/27/2017 URINALYSIS NONAUTO W /O SCOPE CPT-4: 89320 02/16/2016 URINE CULTURE/ COLON Y COUNT CPT-4: 62387 02/16/2016 PRESCRIP TRANSMIT A ERX SY CPT-4: G8553 02/16/2016 ROUTINE VENIPUNCTURE CPT-4: 52286 12/03/2015 ASSAY THYROID STIM H ORMONE CPT-4: 50603 12/03/2015 COMPREHEN METABOLIC PANEL CPT-4: 14855 12/03/2015 A1C HPLC CPT-4: 54964 12/03/2015 ASSAY OF MAGNESIUM CPT- 4: 77384 12/03/2015 URINALYSIS NONAUTO W /O SCOPE CPT-4: 77275 12/03/2015 URINE CULTURE/ COLON Y COUNT CPT-4: 18391 12/03/2015 URINALYSIS NONAUTO W /O SCOPE CPT-4: 93124 07/30/2013 URINE CULTURE/ COLON Y COUNT CPT-4: 31264 07/30/2013 ROUTINE VENIPUNCTURE CPT-4: 78906 07/30/2013 COMPLETE CBC W/AUTO DIFF WBC CPT-4: 57197 07/30/2013 COMPREHEN METABOLIC PANEL CPT-4: 96821 07/30/2013 C-REACTIVE PROTEIN CPT- 4: 23263 07/30/2013 ROUTINE VENIPUNCTURE CPT-4: 63179 08/20/2012 ASSAY OF FREE THYROXINE CPT-4: 65761 08/20/2012 ASSAY THYROID STIM H ORMONE CPT-4: 18089 08/20/2012 COMPREHEN METABOLIC PANEL CPT-4: 19245 08/20/2012 COMPLETE CBC W/AUTO DIFF WBC CPT-4: 21152 08/20/2012 LIPID PANEL CPT-4: 03418 08/20/2012 A1C GLYCOSYLATED HEM OGLOBIN TEST CPT-4: 03522 08/20/2012 ASSAY, GLUCOSE, BLOO D QUANT CPT-4: 16987 06/21/2012 ASSAY, GLUCOSE, BLOO D QUANT CPT-4: 41604 05/21/2012 ROUTINE VENIPUNCTURE CPT-4: 27798 05/21/2012 COMPREHEN METABOLIC PANEL CPT-4: 43800 05/21/2012 A1C GLYCOSYLATED HEM OGLOBIN TEST CPT-4: 27518 05/21/2012 CURRENT SMKL[employer] [employer] USER CPT-4: G8456 06/14/2011 PT VIS DOC USE EHR C ER ATCB CPT-4: G8447 06/14/2011 PRESCRIP TRANSMIT A ERX SY CPT-4: G8553 06/14/2011 PT VIS DOC USE EHR C ER ATCB CPT-4: G8447 03/03/2011 PRESCRIP TRANSMIT A ERX SY CPT-4: G8553 03/03/2011 ROUTINE VENIPUNCTURE CPT-4: 07384 01/27/2011 ASSAY OF FREE THYROXINE CPT-4: 05048 01/27/2011 ASSAY THYROID STIM H ORMONE CPT-4: 04745 01/27/2011 PT VIS DOC USE EHR C [...] 1: 158/90 Code: 8480-6 BMI: 34.3 Code: 24862-2 Heart Rate 1: 78 bpm Height: 6'1" Respiratory Rate: 20 bpm SpO2: 98% Temperature: 36.6 (C ) / 97.8 (F) Weight: 260 lbs 11/02/2017 Blood Pressure 1: 134/92 Code: 8480-6 BMI: 32.3 Code: 91602-2 Heart Rate 1: 72 bpm Height: 6'1" SpO2: 98% Temperature: 36.4 (C ) / 97.5 (F) Weight: 245 lbs 07/27/2017 Blood Pressure 1: 136/64 Code: 8480-6 BMI: 30.9 Code: 62115-9 Heart Rate 1: 78 bpm Height: 6'1" Respiratory Rate: 22 bpm SpO2: 98% Temperature: 36.4 (C ) / 97.6 (F) Weight: 234 lbs 04/05/2017 Blood Pressure 1: 126/90 Code: 8480-6 BMI: 33.5 Code: 60686-4 Heart Rate 1: 76 bpm Height: 6'1" Respiratory Rate: 20 bpm SpO2: 97% Temperature: 37.0 (C ) / 98.6 (F) Weight: 254 lbs 06/20/2016 Blood Pressure 1: 122/74 Code: 8480-6 BMI: 35.2 Code: 79685-0 Heart Rate 1: 80 bpm Height: 6'1" Respiratory Rate: 20 bpm SpO2: 97% Temperature: 36.9 (C ) / 98.5 (F) Weight: 267 lbs 02/16/2016 Blood Pressure 1: 136/82 Code: 8480-6 BMI: 36.4 Code: 79553-8 Heart Rate 1: 66 bpm Height: 6'1" Respiratory Rate: 18 bpm SpO2: 96% Temperature: 36.4 (C ) / 97.6 (F) Weight: 276 lbs 12/03/2015 Blood Pressure 1: 122/86 Code: 8480-6 BMI: 39.2 Code: 69482-1 Heart Rate 1: 76 bpm Height: 6' Respiratory Rate: 20 bpm Temperature: 37.1 (C ) / 98.7 (F) Weight: 289 lbs 06/24/2015 Blood Pressure 1: 136/84 Code: 8480-6 BMI: 40.7 Code: 76564-2 Heart Rate 1: 84 bpm Height: 6' Respiratory Rate: 20 bpm Temperature: 36.9 (C ) / 98.4 (F) Weight: 300 lbs 06/11/2015 Blood Pressure 1: 160/82 Code: 8480-6 BMI: 40.4 Code: 31428-9 Heart Rate 1: 82 bpm Height: 6' Respiratory Rate: 22 bpm Temperature: 36.5 (C ) / 97.7 (F) Weight: 298 lbs 07/17/2014 Blood Pressure 1: 132/84 Code: 8480-6 BMI: 41.0 Code: 87867-8 Heart Rate 1: 76 bpm Height: 6'1" Respiratory Rate: 20 bpm Temperature: 36.9 (C ) / 98.4 (F) Weight: 311 lbs 10/31/2013 Blood Pressure 1: 132/80 Code: 8480-6 BMI: 41.2 Code: 52850-0 Heart Rate 1: 84 bpm Height: 6'1" Respiratory Rate: 22 bpm Temperature: 36.1 (C ) / 97.0 (F) Weight: 312 lbs 08/01/2013 Blood Pressure 1: 142/86 Code: 8480-6 BMI: 42.4 Code: 74608-5 Heart Rate 1: 84 bpm Height: 6' [...] 1: 156/108 Code: 8480-6 BMI: 41.9 Code: 29006-1 Heart Rate 1: 92 bpm Height: 6' Respiratory Rate: 20 bpm Temperature: 36.9 (C ) / 98.4 (F) Weight: 309 lbs 02/27/2013 Blood Pressure 1: 162/114 Code: 8480-6 BMI: 41.0 Code: 91486-9 Heart Rate 1: 84 bpm Height: 6' Respiratory Rate: 20 bpm Temperature: 36.7 (C ) / 98.0 (F) Weight: 302 lbs 01/01/2013 Blood Pressure 1: 138/86 Code: 8480-6 BMI: 41.0 Code: 12734-5 Heart Rate 1: 76 bpm Height: 6' Respiratory Rate: 20 bpm Temperature: 36.7 (C ) / 98.0 (F) Weight: 302 lbs 11/27/2012 Blood Pressure 1: 136/92 Code: 8480-6 BMI: 41.2 Code: 38177-9 Heart Rate 1: 80 bpm Height: 6' Respiratory Rate: 20 bpm Temperature: 36.6 (C ) / 97.8 (F) Weight: 304 lbs 08/28/2012 Blood Pressure 1: 126/80 Code: 8480-6 BMI: 41.8 Code: 41097-2 Heart Rate 1: 80 bpm Height: 6' Respiratory Rate: 20 bpm Temperature: 36.4 (C ) / 97.6 (F) Weight: 308 lbs 07/03/2012 Blood Pressure 1: 114/80 Code: 8480-6 BMI: 42.3 Code: 47056-2 Heart Rate 1: 72 bpm Height: 6' Respiratory Rate: 20 bpm Temperature: 36.6 (C ) / 97.9 (F) Weight: 312 lbs 06/21/2012 Blood Pressure 1: 152/100 Code: 8480-6 BMI: 43.3 Code: 17460-7 Heart Rate 1: 72 bpm Height: 6' Temperature: 36.8 (C ) / 98.2 (F) Weight: 319 lbs 05/30/2012 Blood Pressure 1: 122/78 Code: 8480-6 BMI: 43.0 Code: 78360-9 Heart Rate 1: 72 bpm Height: 6' Respiratory Rate: 20 bpm Temperature: 36.7 (C ) / 98.0 (F) Weight: 317 lbs 05/21/2012 Blood Pressure 1: 126/94 Code: 8480-6 BMI: 44.2 Code: 53111-2 Heart Rate 1: 92 bpm Height: 6' Respiratory Rate: 20 bpm Temperature: 36.6 (C ) / 97.9 (F) Weight: 326 lbs 01/24/2012 Blood Pressure 1: 122/90 Code: 8480-6 BMI: 44.5 Code: 45588-7 Heart Rate 1: 76 bpm Height: 6' Respiratory Rate: 20 bpm Temperature: 36.8 (C ) / 98.2 (F) Weight: 328 lbs 09/21/2011 Blood Pressure 1: 116/80 Code: 8480-6 BMI: 44.1 Code: 04184-4 Heart Rate 1: 92 bpm Height: 6' Respiratory Rate: 20 bpm Temperature: 36.7 (C ) / 98.1 (F) Weight: 325 lbs 09/12/2011 Blood Pressure 1: 166/110 Code: 8480-6 BMI: 45.0 Code: 01892-6 Heart Rate 1: 80 bpm Height: 6' Respiratory Rate: 20 bpm Temperature: 36.5 (C ) / 97.7 (F) Weight: 332 lbs 06/14/2011 Blood Pressure 1: 142/84 Code: 8480-6 BMI: 45.6 Code: 75372-3 Heart Rate 1: 104 bpm Height: 6' Respiratory Rate: 20 bpm Temperature: 36.4 (C ) / 97.5 (F) Weight: 336 lbs 03/03/2011 Blood Pressure 1: 130/96 Code: 8480-6 Heart Rate 1: 86 bpm Temperature: 36.1 (C) / 97.0 (F) Weight: 327 lbs 01/27/2011 Blood Pressure 1: 142/96 Code: 8480-6 BMI: 42.0 Code: 86250-1 Heart Rate 1: 72 bpm Height: 6'2" [...] chr onic 06/20/2016 None hypertension Quality marky jessica hypertension 06/20/2016 None hypertension Quality sta ble [...] 11/27/2012 in elbow--seen in Urgent care in [place] and started on abx cellulitis Onset and [...] and Resolution ongoing 06/21/2012 been out of [facility] didn't have diabetes mellitus Blood glucose [...] Encounters Encounter Performer Loca tion Codes Date ([id number]) OFFICE/OUTPA TIENT VISIT EST Diagnosis: Essential (primary) hypertension[ICD10: I10] Diagnosis: 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, 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] Diagnosis: Kidney transplant status[ICD10: Z94.0] Diagnosis: Chronic kidney disease, stage 3 (moderate)[ICD10: N18.3] Diagnosis: Mixed hyperlipidemia[ICD10: E78.2] Galina ASENCIO PartschannelKarol [employer] CPT-4: 46351 02/26/2019 ([id number]) NURSE/OUTPAT IENT VISIT EST Diagnosis: 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, 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] Diagnosis: Essential (primary) hypertension[ICD10: I10] Diagnosis: Other specified hypothyroidism[ICD10: E03.8] Diagnosis: Mixed hyperlipidemia[ICD10: E78.2] Galina Chance [employer] CPT-4: 53817 02/19/2019 ([id number]) NURSE/OUTPAT IENT VISIT EST Diagnosis: Kidney transplant status[ICD10: Z94.0] 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] Diagnosis: Other [facility] (current[facility] drug therapy[ICD10: Z79.899] Diagnosis: Encounter for aftercare following other organ transplant[ICD10: Z48.298] Diagnosis: Mixed hyperlipidemia[ICD10: E78.2] Galina Chance [employer] CPT-4: 08835 08/24/2018 ([id number]) NURSE/OUTPAT IENT VISIT EST Diagnosis: Type 2 diabetes mellitus with diabetic neuropathy, unspecified[ICD10: E11.40] Diagnosis: Type 2 diabetes mellitus with hyperglycemia[ICD10: E11.65] 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] Diagnosis: Essential (primary) hypertension[ICD10: I10] Galina ARTEAGA [facility] CPT-4: 56472 06/29/2018 ([id number]) OFFICE/OUTPA TIENT VISIT EST Diagnosis: Slow transit constipation[ICD10: K59.01] Diagnosis: Epigastric pain[ICD10: R10.13] Diagnosis: Type 2 diabetes mellitus with hyperglycemia[ICD10: E11.65] Coleen SMITH [facility] CPT-4: 27451 06/26/2018 ([id number]) OFFICE/OUTPA TIENT VISIT EST Diagnosis: Right lower quadrant pain[ICD10: R10.31] Diagnosis: Type 2 diabetes mellitus with diabetic neuropathy, unspecified[ICD10: E11.40] Coleen SMITH [facility] CPT-4: 00112 02/06/2018 ([id number]) OFFICE/OUTPA TIENT VISIT EST Diagnosis: Type 2 diabetes mellitus with hyperglycemia[ICD10: E11.65] Diagnosis: Mixed hyperlipidemia[ICD10: E78.2] Diagnosis: Essential (primary) hypertension[ICD10: I10] Coleen CHENEY [facility] CPT-4: 96270 11/02/2017 ([id number]) PREV VISIT E ST AGE 18-39 Diagnosis: Encounter for general adult medical examination with abnormal findings[ICD10: Z00.01] Diagnosis: Abrasion of right hand, initial encounter[ICD10: S60.511A] 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] Coleen SMITH [facility] CPT-4: 30910 07/27/2017 OFFICE/OUTPATIENT SIT EST 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] Diagnosis: Tinea pedis[ICD10: B35.3] Coleen SMITH [facility] CPT-4: 71630 04/05/2017 ([id number]) OFFICE/OUTPA TIENT VISIT EST Diagnosis: 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, 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] Diagnosis: Mixed hyperlipidemia[ICD10: E78.2] Diagnosis: Essential (primary) hypertension[ICD10: I10] Galina [facility] CPT-4: 93228 06/20/2016 ([id number]) OFFICE/OUTPA TIENT VISIT EST Diagnosis: Urinary tract infection, site not specified[ICD10: N39.0] Missy SMITH [facility] CPT-4: 89741 02/16/2016 ([id number]) OFFICE/OUTPA TIENT VISIT EST Diagnosis: Type 2 diabetes mellitus with hyperglycemia[ICD10: E11.65] Diagnosis: Cramp and spasm[ICD10: R25.2] Diagnosis: Hematuria, unspecified[ICD10: R31.9] Galina [facility] CPT-4: 45691 12/03/2015 OFFICE/OUTPATIENT SIT EST Diagnosis: Type 2 diabetes mellitus with diabetic neuropathy, unspecified[ICD10: E11.40] Alejandra Billy GALINA SMITH [facility] CPT-4: 21166 06/24/2015 ([id number]) OFFICE/OUTPA TIENT VISIT EST Diagnosis: Acute sinusitis, unspecified[ICD10: J01.90] Diagnosis: Otitis media, unspecified, bilateral[ICD10: H66.93] Galina ROD [facility] CPT-4: 37659 06/11/2015 ([id number]) OFFICE/OUTPA TIENT VISIT EST Diagnosis: 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[ICD9: 250.01] Diagnosis: HYPERTENSION[ICD9: 401.9] Diagnosis: HYPERLIPIDEMIA NEC/NOS[ICD9: 272.4] Diagnosis: KIDNEY TRANSPLANT STATUS[ICD9: V42.0] Galina ARTEAGA [facility] CPT-4: 82726 07/17/2014 ([id number]) OFFICE/OUTPA TIENT VISIT EST Diagnosis: 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[ICD9: 250.01] Diagnosis: HYPERTENSION[ICD9: 401.9] Galina SMITH [facility] CPT-4: 64977 10/31/2013 ([id number]) OFFICE/OUTPA TIENT VISIT EST Diagnosis: 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I[ICD9: 250.00] Diagnosis: HYPERTENSION[ICD9: 401.9] Diagnosis: HYPERLIPIDEMIA NEC/NOS[ICD9: 272.4] Galina CASANOVAR [facility] CPT-4: 32412 08/01/2013 OFFICE/OUTPATIENT SIT EST Diagnosis: HEMATURIA NOS[ICD9: 599.70] Diagnosis: Abdominal pain, acute, right lower quadrant[ICD9: 789.03] Diagnosis: KIDNEY TRANSPLANT STATUS[ICD9: V42.0] Alejandra Billy GALINA RIVAS [facility] CPT-4: 28412 07/30/2013 ([id number]) OFFICE/OUTPA TIENT VISIT EST Diagnosis: Uncontrolled hypertension[ICD9: 401.9] Diagnosis: BRIEF DEPRESSIVE REACT[ICD9: 309.0] Galina CASANOVAR [facility] CPT-4: 09909 05/30/2013 ([id number]) OFFICE/OUTPA TIENT VISIT EST Diagnosis: HYPERTENSION[ICD9: 401.9] Diagnosis: Anticipatory grieving[ICD9: 309.0] Galina CASANOVAR [facility] CPT-4: 96870 04/29/2013 ([id number]) OFFICE/OUTPA TIENT VISIT EST Diagnosis: 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I, UNCONTROLLED[ICD9: 250.02] Diagnosis: HYPERTENSION[ICD9: 401.9] Diagnosis: HYPOTHYROIDISM[ICD9: 244.9] Diagnosis: KIDNEY TRANSPLANT STATUS[ICD9: V42.0] Galina CASANOVAR [facility] CPT-4: 70202 02/27/2013 OFFICE/OUTPATIENT SIT EST Diagnosis: Paronychia[ICD9: 681.9] Diagnosis: ONYCHOMYCOSIS[ICD9: 110.1] Viky Acosta GALINA SMITH [facility] CPT-4: 94567 01/01/2013 ([id number]) OFFICE/OUTPA TIENT VISIT EST Diagnosis: 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I, UNCONTROLLED[ICD9: 250.02] Diagnosis: HYPERLIPIDEMIA NEC/NOS[ICD9: 272.4] Diagnosis: HYPERTENSION[ICD9: 401.9] Diagnosis: KIDNEY TRANSPLANT STATUS[ICD9: V42.0] Diagnosis: HYPOTHYROIDISM[ICD9: 244.9] Galina SMITH [facility] CPT-4: 05759 11/27/2012 ([id number]) OFFICE/OUTPA TIENT VISIT EST Diagnosis: 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I[ICD9: 250.00] Diagnosis: HYPOTHYROIDISM[ICD9: 244.9] Diagnosis: HYPERLIPIDEMIA NEC/NOS[ICD9: 272.4] Diagnosis: HYPERTENSION[ICD9: 401.9] Galina MEJIALINE Meron SMITH [facility] CPT-4: 15124 08/28/2012 ([id number]) OFFICE/OUTPA TIENT VISIT EST Diagnosis: HYPOTHYROIDISM[ICD9: 244.9] Diagnosis: 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I, UNCONTROLLED[ICD9: 250.02] Diagnosis: HYPERLIPIDEMIA NEC/NOS[ICD9: 272.4] Diagnosis: KIDNEY TRANSPLANT STATUS[ICD9: V42.0] Diagnosis: HYPERTENSION[ICD9: 401.9] Galina MEJIALINE Meron SMITH [facility] CPT-4: 56916 08/20/2012 OFFICE/OUTPATIENT SIT EST Diagnosis: 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I, UNCONTROLLED[ICD9: 250.02] Diagnosis: HYPERTENSION[ICD9: 401.9] Galina Luis GALINA Meron SMITH [facility] CPT-4: 74720 07/03/2012 OFFICE/OUTPATIENT SIT EST Diagnosis: 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I, UNCONTROLLED[ICD9: 250.02] Diagnosis: HYPERTENSION[ICD9: 401.9] Galina Rodranjanatorri GALINA SusuKarol LUIS [facility] CPT-4: 41968 06/21/2012 OFFICE/OUTPATIENT SIT EST Diagnosis: 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I, UNCONTROLLED[ICD9: 250.02] Diagnosis: HYPERTENSION[ICD9: 401.9] Diagnosis: HYPERLIPIDEMIA NEC/NOS[ICD9: 272.4] Diagnosis: KIDNEY TRANSPLANT STATUS[ICD9: V42.0] Galina ARTEAGA [facility] CPT-4: 63519 05/30/2012 ([id number]) OFFICE/OUTPA TIENT VISIT EST Diagnosis: HYPERTENSION[ICD9: 401.9] Diagnosis: VISUAL DISTURBANCE[ICD9: 368.9] Galina SMITH [facility] CPT-4: 75098 05/21/2012 ([id number]) OFFICE/OUTPA TIENT VISIT EST Diagnosis: HYPERTENSION[ICD9: 401.9] Diagnosis: HYPOTHYROIDISM[ICD9: 244.9] Diagnosis: KIDNEY TRANSPLANT STATUS[ICD9: V42.0] Galina ARTEAGA [facility] CPT-4: 87059 01/24/2012 OFFICE/OUTPATIENT SIT EST Diagnosis: DIZZINESS/VERTIGO[ICD9: 780.4] Diagnosis: HYPERTENSION[ICD9: 401.9] Galina SMITH [facility] CPT-4: 03308 09/21/2011 ([id number]) OFFICE/OUTPA TIENT VISIT EST Diagnosis: HYPERTENSION[ICD9: 401.9] Diagnosis: HYPOTHYROIDISM[ICD9: 244.9] Diagnosis: HYPERLIPIDEMIA NEC/NOS[ICD9: 272.4] Diagnosis: KIDNEY TRANSPLANT STATUS[ICD9: V42.0] Galina ARTEAGA [facility] CPT-4: 83741 09/12/2011 OFFICE/OUTPATIENT SIT EST Diagnosis: HYPOTHYROIDISM[ICD9: 244.9] Diagnosis: HYPERTENSION[ICD9: 401.9] Diagnosis: CEPHALGIA[ICD9: 784.0] Galina SMITH [facility] CPT-4: 07646 06/14/2011 OFFICE/OUTPATIENT SIT EST Diagnosis: HYPERTENSION[ICD9: 401.9] Diagnosis: PHARYNGITIS, ACUTE[ICD9: 462] Diagnosis: HYPOTHYROIDISM[ICD9: 244.9] Galina SMITH [facility] CPT-4: 71804 03/03/2011 OFFICE/OUTPATIENT SIT EST Diagnosis: HYPOTHYROIDISM[ICD9: 244.9] Diagnosis: KIDNEY TRANSPLANT STATUS[ICD9: V42.0] Diagnosis: HYPERTENSION[ICD9: 401.9] Diagnosis: SINUSITIS, ACUTE[ICD9: 461.9] Galina SMITH [facility] CPT-4: 89906 01/27/2011 ([id number]) OFFICE/OUTPA TIENT VISIT EST Galina ARTEAGA [facility] CPT-4: 31251 12/02/2010 Plan of Care Planned Activity Notes [...] E10.9 02/26/2019 Patient Education: atorvastatin- Optimize[employer] Coupon [id number] [email or web address] Completed 02/26/2019 Appointment: Galina Smith WPtel: [address] [place] [address] LAB 02/19/2019 Appointment: Coleen Frey [address] [address] [place] had 2 flat tires this morning. NO SHOW - FORGIVEN 02/19/2019 Appointment: Galina Smith WPtel: [address] [place] [address] LAB 08/24/2018 Appointment: Galina Smith WPtel: [address] [place] [address] [place] LAB 06/29/2018 Visit Diagnosis Plan: Epigastric [...] cmp but he had labs done in [facility]. will obtain lab results and order additional labs as needed. ICD-9 : 250.02 ICD-10 : E11.65 06/26/2018 Appointment: Coleen Frey [address] [place] [place] [id number] 06/26/2018 Visit Diagnosis Plan: Type [...] ICD-10 : R10.31 02/06/2018 Appointment: Coleen Frey [address] [place], [place] [id number] ACUTE ILLNESS 02/06/2018 Patient Education: Patient Medication [...] with hyperglycemia Discussion: a1c, cmp drawn today. jacob cassidy only had tea today and was unsweetened. continue with current dose of medications until labs return. patient had just used the restroom so microalbumin will be completed at next visit. follow up in 3 months or sooner if needed. ICD-9 : 250.02 ICD-10 : E11.65 11/02/2017 Appointment: Coleen Frey [address] [facility] [place] FOLLOW UP 11/02/2017 Patient Education: Patient Medication Summary Completed 11/02/2017 Visit Diagnosis Plan: Abrasion of right hand, initial encounter Discussion: keflex prescribed for infect ion. instructed patient to call or rtc next week if no improvement. keep area clean and dry. ICD-9 : 914.0 ICD-10 : S60.511A 07/27/2017 Visit Diagnosis Plan: Encounter for [facility] adult medical examination with abnormal findings [...] ICD-10 : E11.59 07/27/2017 Appointment: Coleen Frey 504 [facility] Annual Well Visit 07/27/2017 Patient Education: Patient [...] : B35.3 04/05/2017 Appointment: Coleen Frey 504 [facility] FOLLOW UP 04/05/2017 Patient Education: Patient Medication Summary Completed 04/05/2017 Patient Education: Patient Medication Summary Completed 04/05/2017 Care Plan: CBC Pending 04/05/2017 Care Plan: LIPID PANEL LOINC : 74076-4 Pending 04/05/2017 Care Plan: COMPREHEN METABOLIC PANEL LOINC : 98809-7 Pending 04/05/2017 Visit Plan: Patient admits that [...] scale--new sliding scale given 06/20/2016 Appointment: Galina Smithtel: [facility] 06/16 lm-sp 06/20 lm ~sl FOLLOW UP 06/20/2016 Patient Education: Patient Medication Summary Completed 06/20/2016 Patient Education: Patient Medication Summary Completed 05/04/2016 Care Plan: COMPREHEN METABOLIC PANEL LOINC : 90670-9 Pending 05/04/2016 Care Plan: CBC Pending 05/04/2016 Care Plan: LIPID PANEL LOINC : 26105-7 Pending 05/04/2016 Care Plan: A1C HPLC LO INC : 17226-8 Pending 05/04/2016 Visit Plan: Discussed with Dr Norwood er Treatment as above while awaiting specialist to return his call Push fluids Follow up celine if not improving 02/16/2016 Visit Plan: Discussed with Dr Norwood er Treatment as above while awaiting specialist to return his call Push fluids Follow up celine if not improving 02/16/2016 [facility]ment[facility] [facility] 02/16/2016 Patient Education: Patient Medication [...] cause cramping as well 12/03/2015 Appointment: Galina Smithl: [address] [place] [address] ACUTE ILLNESS 12/03/2015 Patient Education: Patient Medication Summary Completed 12/03/2015 Visit Plan: Labs completed this am in [place] but do not have results yet. Start Lyrica 75mg PO bid Will Call in a week and let know if pain is improved. 06/24/2015 Visit Plan: Labs completed this am in [place] but do not have results yet. Start Lyrica 75mg PO bid Will Call in a week and let know if pain is improved. 06/24/2015 Appointment: Alejandra Billy WPtel: [address] [place] [address] ACUTE ILLNESS 06/24/2015 Patient Education: Patient Medication Summary Completed 06/24/2015 Patient Education: Lyrica - 18+ - No MA NE Completed 06/24/2015 Visit Plan: Saline nasal flushes pr n. Tylenol/Motrin prn headache. Notify if persists/symptoms worsening. Obtain most recent lab Warned of increased BS with prednisone--has sliding scale to use 06/11/2015 Appointment: Galina Smith WPtel: [address] [place] [address] 06/10/15 cn....06/10/15 appt ky jacinto Annual Well Visit 05/14 Patient Education: Patient Medication Summary Completed 06/11/2015 Appointment: Galina Smith WPtel: [address] [place], [place] [address] [place] FOLLOW UP 10/15/2014 Patient Education: Patient Medication Summary Completed 09/03/2014 Care Plan: COMPREHEN METABOLIC PANEL LOINC : 67959-8 Ordered 09/03/2014 Visit Plan: Obtain most recent lab results Will likely need HbA1C and Lipids if were not done Accuchecks q AC and HS 07/17/2014 Appointment: Galina Smith WPtel: [address] [place] [address] FOLLOW UP 07/17/2014 Patient Education: Patient Medication Summary Completed 07/17/2014 Appointment: Galina Smith WPtel: [address] [place] [address] 01/29 01/30 NO SHOW FOLLOW UP 01/30/2014 Visit Plan: Check CMP, HbA1C, CBC, Lipids Pt sees transplant doctor next month Pt is currently just using insulin prn and monitering BS 10/31/2013 Appointment: Galina Smith WPtel: [address] [place] [address] FOLLOW UP 10/31/2013 Patient Education: Patient Medication Summary Completed 10/31/2013 Visit Plan: Continue current meds a nd acuchecks 08/01/2013 Appointment: Galina Smith WPtel: [address] [place] [address] 07/31 FOLLOW UP 08/01/2013 Patient Education: Patient Medication Summary Completed 08/01/2013 Visit Plan: CBC, CMP, CRP To [facility] for CT abdomen/Pelvis w/o contrast 07/30/2013 Appointment: Alejandra Billy WPtel: [address] [place] [address] ACUTE ILLNESS 07/30/2013 Patient Education: Patient Medication Summary Completed 07/30/2013 Visit Plan: Restart Diovan--pt says needs PA Continue fluoxetine at 20mg daily 05/30/2013 Appointment: Galina Smith WPtel: [address] [place] [address] FOLLOW UP 05/30/2013 Patient Education: Patient Medication Summary Completed 05/30/2013 Appointment: Galina Smith WPtel: [address] [place] [address] has appt following day FOLLOW UP 05/29/2013 Visit Plan: Restart Diovan and Amlo dopine as has been out--new rx sent out Trial of Fluoxetine 20mg q AM Stress Reducers 04/29/2013 Appointment: Galina Smith WPtel: [address] [place], [place] [id number] 04/26 MOM made appt. confirmed monday ACUTE ILLNESS 04/29/2013 Patient Education: Patient Medication Summary Completed 04/29/2013 Visit Plan: Continue current meds a nd accuchecks Pt going for fasting lab next month 02/27/2013 Appointment: Galina Smith WPtel: [address] [place], [place] [id number] FOLLOW UP 02/27/2013 Patient Education: Patient Medication Summary Completed 02/27/2013 Appointment: Viky Acosta WPtel: [address] [place], [place] [id number] ACUTE ILLNESS 01/01/2013 Patient Education: Patient Medication Summary Completed 01/01/2013 Visit Plan: Continue current meds C heck fasting lab next week 11/27/2012 Appointment: Galina Smith WPtel: [address] [place], [place] [phone] FOLLOW UP 11/27/2012 Patient Education: Patient Medication Summary Completed 11/27/2012 Visit Plan: Lab discussed Continue current meds and accuchecks Pt sees transplant doctor in in October Check fasting lab and fwup in 3mos 08/28/2012 Appointment: Galina Smith WPtel: [address] [place], [place] [phone] 08/27 FOLLOW UP 08/28/2012 Patient Education: Patient Medication Summary Completed 08/28/2012 Appointment: Galina Smith WPtel: [address] [place], [place] [address] [place] LAB 08/20/2012 Patient Education: Patient Medication Summary Completed 08/20/2012 Visit Plan: Continue levemir at cur rent dose with accuchecks Use apidra with sliding scale Check Chem 7 and HbA1C in 2mos 07/03/2012 Appointment: Galina Smith WPtel: [address] [place], [place] [phone] 07/02 vm FOLLOW UP 07/03/2012 Patient Education: [...] 320mg daily 06/21/2012 Appointment: Galina Smith WPtel: [address] [place] [address] ACUTE ILLNESS 06/21/2012 Patient Education: Patient Medication Summary Completed 06/21/2012 Visit Plan: Increase Levemir to 75 u sc q PM Continue sliding scale insulin with accuchecks q AC and HS Call in 1wk with BS readings 05/30/2012 Appointment: Galina Smith WPtel: [address] [place] [address] Follow Up 05/30/2012 Patient Education: Patient Medication Summary Completed 05/30/2012 Appointment: Galina Smith WPtel: [address] [place] [address] 05/21 - cancelled appointment for 05/22 because PT was worked in on 05/21 FOLLOW UP 05/22/2012 Visit Plan: Obtain lab done last mo from [facility] See optometry for dilated eye exam and eye pressures today May need CT head pending results of eye evaluation 05/21/2012 Appointment: Galina Smith WPtel: [address] [place], [place] [id number] WORK IN 05/21/2012 Appointment: Galina Smith WPtel: [address] [place] [address] LAB 05/21/2012 Patient Education: Patient Medication Summary Completed 05/21/2012 Visit Plan: Continue current meds O btain most recent lab done at [facility] See eye doctor today for dilated exam and eye pressures May need CT head pending dilated eye exam results 01/24/2012 Visit Plan: Continue current meds O btain most recent lab done at [facility] 01/24/2012 Visit Plan: Continue current meds C heck CBC, CMP, TSH, Free T4 01/24/2012 Appointment: Galina Smithtel: [address] [place] [address] voicemail FOLLOW UP 01/24/2012 Patient Education: Patient Medication Summary Completed 01/24/2012 Visit Plan: Decrease Norvasc to 2.5 mg daily Check CBC, CMP, TSH, Free T4 09/21/2011 Appointment: Galina Smith WPtel: [address] [place] [address] ACUTE ILLNESS 09/21/2011 Patient Education: Patient Medication Summary Completed 09/21/2011 Visit Plan: Continue Diovan at curr ent dose Add amlodopine Check Lipids/LFTs with next lab 09/12/2011 Appointment: Galina Smithtel: [address] [place], [place] [phone] FOLLOW UP 09/12/2011 Patient Education: Patient Medication Summary Completed 09/12/2011 Visit Plan: Increase Diovan to 320m g po daily Check TSH and Free T4 with kidney lab next week 06/14/2011 Appointment: Galina Smithtel: [address] [place], [place] [phone] FOLLOW UP 06/14/2011 Patient Education: Patient Medication Summary Completed 06/14/2011 Visit Plan: Z-pack then new tootheb ivory Start Diovan 03/03/2011 Appointment: Galina Smith WPtel: [address] [place], [place] [phone] ACUTE ILLNESS 03/03/2011 Patient Education: Patient Medication Summary Completed 03/03/2011 Visit Plan: Check TSH, Free T4 toda y Pt will moniter BP at home See if treatment of sinuses helps headaches 01/27/2011 Appointment: Galina Smith WPtel: [address] [place], [place] [phone] FOLLOW UP 01/27/2011 Patient Education: Patient Medication Summary Completed 01/27/2011 Visit Plan: Continue current meds a nd proceed with lab per kidney transplant doctor Start Synthroid at 50mcg po daily 12/02/2010 Appointment: Galina Smith [facility]Ptel: [facility] [facility] [facility] FOLLOW UP 12/02/2010 Patient Education: Patient Medication Summary Completed 12/02/2010 Appointment: Galina Smith WPtel: [address] [facility] [facility] Suture Removal 10/20/2009 Patient Education: [...] BS . Obtain lab done [facility] from [facility] See optometry for dilated eye exam and [...] Obtain most recent lab done at [facility] See eye doctor today for dilated exam and eye pressures May need CT head pending dilated eye exam results . Continue current eds Obtain most recent lab done at [facility] . Continue current m eds Check CBC, CMP, TSH, Free T4 . Continue current m eds and accuchecks Pt going for fasting lab next month . Check TSH, Free T4 today Pt will moniter BP at home See if treatment of sinuses helps headaches . CBC, CMP, CRP To [facility] for CT abdomen/Pelvis w/o contrast . Saline [...] . Labs completed thi s am in [facility] but do not have results yet. Start Lyrica 75mg PO bid Will Call in a week and let know if pain is improved. . Labs completed thi s am in [facility] but do not have results yet. Start Lyrica 75mg PO bid Will Call in a week and let know if pain is improved. . Restart Diovan and Amlodopine as has been out--new rx sent out Trial of Fluoxetine 20mg q AM Stress Reducers
--- OUTSIDE RECORDS SUMMARY | 2019-08-21 00:19 | XMS REPORT | CCD ---
Author Author Cuauhtemoc Smith D.O. Organization [facility]ALINA SM[facility] DO [facility] Address [address] [place] [address] Phone Care Team Providers Care Regulatory Affairs Consultant Name Role Phone Galina Smith D.O., PP Unavailable CCM Unavailable Summary Purpose Interface Exchange Insurance Providers Payer name Policy type / Coverage type Covered constitution party ID Effective Begin Date Effective End Date Blue Cross Blue Shield Blue Cross/Bl ue Shield [id number] 2017 Un known Family History Family History data not found Social History Social History Element Codes Description Effective Dates Tobacco history SNOMED CT: 010916407 Currently uses smokeless tobacco 06/14/2011 Allergies, Adverse [...] V58.44 ICD-10: Z48.298 Active 08/24/2018 Unknown 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 ICD-9: V58.69 ICD-10: [...] ICD-9: V58.44 ICD-10: Z48.298 08/24/2018 Active 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 ICD-9: V58.69 ICD-10: [...] Fill Instructions amlodipine 5 mg tablet RxNorm: 211717 1 Tablet(s) PO QD for BP 02/26/2019 08/24/2019 Active atorvastatin 80 mg t ablet RxNorm: 086202 1 Tablet(s) PO QD 02/26/2019 05/26/2019 Active Novolog Flexpen U-10 0 Insulin aspart 100 unit/mL (3 mL) subcutaneous RxNorm: 6819615 INJECT SUBCUTANEOUSLY NEEDED PER SLIDING SCALE 02/22/2019 No Stop Date Active Levemir FlexTouch U- 100 Insulin 100 unit/mL (3 mL) subcutaneous pen RxNorm: 062160 90 Unit(s) SQ BID 01/08/2019 04/07/2019 Active Levemir FlexTouch U- 100 Insulin 100 unit/mL (3 mL) subcutaneous pen RxNorm: 308101 90 Unit(s) SQ BID 12/04/2018 12/03/2018 Inactive Levemir FlexTouch U- 100 Insulin 100 unit/mL (3 mL) subcutaneous pen RxNorm: 597748 90 Unit(s) SQ BID 12/04/2018 01/07/2019 Inactive Levemir FlexTouch U- 100 Insulin 100 unit/mL (3 mL) subcutaneous pen RxNorm: 302955 70 Unit(s) SQ BID 10/26/2018 12/04/2018 Inactive Levemir FlexTouch U- 100 Insulin 100 unit/mL (3 mL) subcutaneous pen RxNorm: 721117 GIVE 90 UNITS SUBCUTANEOUSLY TWICE DAILY 10/08/2018 10/26/2018 Inactive Levemir FlexTouch U- 100 Insulin 100 unit/mL (3 mL) subcutaneous pen RxNorm: 628549 90 Unit(s) SQ BID 07/30/2018 10/07/2018 Inactive Levemir FlexTouch U- 100 Insulin 100 unit/mL (3 mL) subcutaneous pen RxNorm: 396093 90 Unit(s) SQ BID 07/06/2018 07/29/2018 Inactive Pen Needle 31 gauge x 5/16" RxNorm: USE DIRECTED 03/21/2018 No Stop Date Active Levemir FlexTouch U- 100 Insulin 100 unit/mL (3 mL) subcutaneous pen RxNorm: 042317 80 Unit(s) SQ BID 02/15/2018 07/06/2018 Inactive Levemir FlexTouch U- 100 Insulin 100 unit/mL (3 mL) subcutaneous pen RxNorm: 154524 INJECT 105 UNITS SUBCUTANEOUSLY IN THE EVENING 01/24/2018 02/15/2018 Inactive Levemir FlexTouch U- 100 Insulin 100 unit/mL (3 mL) subcutaneous pen RxNorm: 489341 INJECT 105 UNITS SUBCUTANEOUSLY IN THE EVENING 12/26/2017 01/23/2018 Inactive Novolog Flexpen U-10 0 Insulin aspart 100 unit/mL (3 mL) subcutaneous RxNorm: 9613616 INJECT SUBCUTANEOUSLY NEEDED PER SLIDING SCALE 12/25/2017 02/21/2019 Inactive Levemir FlexTouch U- 100 Insulin 100 unit/mL (3 mL) subcutaneous pen RxNorm: 241257 70 Unit(s) SQ BID 11/03/2017 11/03/2017 Inactive Levemir FlexTouch U- 100 Insulin 100 unit/mL (3 mL) subcutaneous pen RxNorm: 342855 105 Unit(s) SQ QPM 11/02/2017 11/02/2017 Inactive Levemir FlexTouch U- 100 Insulin 100 unit/mL (3 mL) subcutaneous pen RxNorm: 061565 105 Unit(s) SQ QPM Needs updated labs 11/01/2017 11/01/2017 Inactive Levemir FlexTouch U- 100 Insulin 100 unit/mL (3 mL) subcutaneous pen RxNorm: 479985 Unit(s) 105 Unit(s) SQ QPM 09/18/2017 09/18/2017 Inactive Levemir FlexTouch U- 100 Insulin 100 unit/mL (3 mL) subcutaneous pen RxNorm: 298258 105 Unit(s) SQ QPM 08/07/2017 09/18/2017 Inactive cephalexin 500 mg ca psule RxNorm: 063551 1 Capsule(s) PO BID 07/27/2017 08/02/2017 Inactive Levemir FlexTouch U- 100 Insulin 100 unit/mL (3 mL) subcutaneous pen RxNorm: 204878 105 Unit(s) SQ QPM 06/07/2017 06/07/2017 Inactive Levemir FlexTouch 10 0 unit/mL (3 mL) subcutaneous insulin pen RxNorm: 570280 105 Unit(s) SQ QPM 05/11/2017 06/07/2017 Inactive Lipitor 40 mg tablet RxNorm: 265153 1 Tablet(s) PO QD 04/05/2017 04/04/2017 Inactive nystatin 100,000 uni t/gram topical ointment RxNorm: 011587 1 Gram(s) TOP BID 04/05/2017 05/02/2017 In active Lipitor 40 mg tablet RxNorm: 252755 1.5 Tablet(s) PO QD 04/05/2017 02/25/2019 Inactive Diovan 320 mg tablet RxNorm: 310093 1 Tablet(s) PO QD 04/05/2017 02/25/2019 Inactive Levemir FlexTouch 10 0 unit/mL (3 mL) subcutaneous insulin pen RxNorm: 432406 105 Unit(s) SQ QPM 04/05/2017 04/05/2017 Inactive Levemir FlexTouch 10 0 unit/mL (3 mL) subcutaneous insulin pen RxNorm: 150714 90 Unit(s) SQ QPM LAST REFILL UNTIL LABS AND APPOINTMENT!!!! 04/05/2017 05/11/2017 Inactive Novolog Flexpen 100 unit/mL subcutaneous RxNorm: 5467045 Unit(s) INJECT SUBCU TANEOUSLY NEEDED PER SLIDING SCALE---NEEDS UPDATED LABS 03/07/2017 12/03/2018 Inactive Levemir FlexTouch 10 0 unit/mL (3 mL) subcutaneous insulin pen RxNorm: 451631 90 Unit(s) SQ QPM LAST REFILL UNTIL LABS AND APPOINTMENT!!!! 02/17/2017 03/18/2017 Inactive Levemir FlexTouch 10 0 unit/mL (3 mL) subcutaneous insulin pen RxNorm: 510906 90 Unit(s) SQ QPM NEEDS FASTING LABS AND APPOINTMENT BEFORE FURTHER REFILLS 12/22/2016 02/17/2017 In active Novolog Flexpen U-10 0 Insulin aspart 100 unit/mL subcutaneous RxNorm: 3294101 Unit(s) INJECT SUBCUTANEOUSLY NEEDED PER SLIDING SCALE---NEEDS UPDATED LABS 11/28/2016 03/07/2017 Inactive Levemir FlexTouch 10 0 unit/mL (3 mL) subcutaneous insulin pen RxNorm: 197117 90 Unit(s) VAG QPM 11/08/2016 12/22/2016 Inactive Levemir FlexTouch 10 0 unit/mL (3 mL) subcutaneous insulin pen RxNorm: 912686 90 Unit(s) VAG QPM 11/08/2016 12/21/2016 Inactive Levemir FlexTouch 10 0 unit/mL (3 mL) subcutaneous insulin pen RxNorm: 755185 80 Unit(s) VAG QPM 09/05/2016 11/08/2016 Inactive Levemir FlexTouch 10 0 unit/mL (3 mL) subcutaneous insulin pen RxNorm: 992789 85 Unit(s) SQ QD 07/22/2016 09/05/2016 Inactive Levemir FlexTouch 10 0 unit/mL (3 mL) subcutaneous insulin pen RxNorm: 167019 85 Unit(s) SQ QD 07/04/2016 07/21/2016 Inactive Levemir FlexTouch 10 0 unit/mL (3 mL) subcutaneous insulin pen RxNorm: 849021 85 Unit(s) SQ QD 06/14/2016 06/19/2016 Inactive Levemir FlexTouch 10 0 unit/mL (3 mL) subcutaneous insulin pen RxNorm: 116175 85 Unit(s) SQ QD 05/03/2016 05/22/2016 Inactive Levemir FlexTouch 10 0 unit/mL (3 mL) subcutaneous insulin pen RxNorm: 046026 85 Unit(s) SQ QD 05/03/2016 05/02/2016 Inactive Levemir FlexTouch 10 0 unit/mL (3 mL) subcutaneous insulin pen RxNorm: 426293 85 Unit(s) SQ QD 03/14/2016 04/22/2016 Inactive cefuroxime axetil 25 0 mg tablet RxNorm: 527015 1 Tablet(s) PO BID 02/16/2016 02/25/2016 Inactive Levemir FlexTouch 10 0 unit/mL (3 mL) subcutaneous insulin pen RxNorm: 186801 85 Unit(s) SQ QD 02/03/2016 03/13/2016 Inactive Levemir FlexTouch 10 0 unit/mL (3 mL) subcutaneous insulin pen RxNorm: 856539 85 Unit(s) SQ QD 12/07/2015 02/02/2016 Inactive Pen Needle 31 gauge x 5/16" RxNorm: USE DIRECTED 11/19/2015 05/16/2016 Inactive Levemir FlexTouch 10 0 unit/mL (3 mL) subcutaneous insulin pen RxNorm: 218295 INJECT 75 UNITS SUBCUTANEOUSLY ONCE DAILY; NEED LABS AND APPT 10/06/2015 12/04/2015 Inactive Novolog Flexpen 100 unit/mL subcutaneous RxNorm: 3081830 INJECT SUBCUTANEOUSL Y NEEDED PER SLIDING SCALE 09/15/2015 11/28/2016 Inactive Levemir FlexTouch 10 0 unit/mL (3 mL) subcutaneous insulin pen RxNorm: 796975 75 Unit(s) SQ QD Needs lab and appointment 07/13/2015 10/05/2015 Inactive Lyrica 75 mg capsule RxNorm: 965436 1 Capsule(s) PO BID 06/24/2015 07/23/2015 Inactive Levemir FlexTouch 10 0 unit/mL (3 mL) subcutaneous insulin pen RxNorm: 211916 75 Unit(s) SQ QD Needs lab and appointment 06/23/2015 07/12/2015 Inactive Novolog Flexpen 100 unit/mL subcutaneous RxNorm: 0122772 Unit(s) SQ as needed Sliding scale 06/15/2015 09/14/2015 Inactive Flonase Allergy Reli ef 50 mcg/actuation nasal spray,suspension RxNorm: 2 [place] NASAL QHS 06/11/2015 12/02/2015 Inactive prednisone 20 mg tablet RxNorm: 684952 1 Tablet(s) PO TID for 3 days then 1 po BID for 3 days then one daily for 3 days 06/11/2015 12/02/2015 Inactive cefdinir 300 mg capsule RxNorm: 077892 2 Capsule(s) PO QD 06/11/2015 06/24/2015 Inactive Levemir FlexTouch 10 0 unit/mL (3 mL) subcutaneous insulin pen RxNorm: 060207 75 Unit(s) SQ QD Needs lab and appointment 05/29/2015 06/22/2015 Inactive Novolog 100 unit/mL subcutaneous solution RxNorm: 658571 Unit(s) SQ Inject as directed using sliding scale B 05/29/2015 12/03/2018 Inactive Levemir Flexpen 100 unit/mL (3 mL) solution subcutaneous insulin pen RxNorm: 971847 INJECT 75 UNITS SUBCUTANEOUSLY EVERY DAY 05/11/2015 05/29/2015 Inactive Levemir FlexTouch 10 0 unit/mL (3 mL) subcutaneous insulin pen RxNorm: 662025 75 Unit(s) SQ QHS 03/30/2015 12/03/2018 Inactive Levemir FlexTouch 10 0 unit/mL (3 mL) subcutaneous insulin pen RxNorm: 643071 75 Unit(s) SQ QHS 03/09/2015 03/29/2015 Inactive Contour Test Strips RxNorm: Miscellaneous 01/27/2015 No Stop Date Active Novolog 100 unit/mL subcutaneous solution RxNorm: 739040 Unit(s) SQ Inject as directed using sliding scale B 01/27/2015 05/29/2015 Inactive Levemir Flexpen 100 unit/mL (3 mL) solution subcutaneous insulin pen RxNorm: 038166 INJECT 75 UNITS SUBCUTANEOUSLY EVERY DAY 11/05/2014 03/09/2015 Inactive Levemir Flexpen 100 unit/mL (3 mL) solution subcutaneous insulin pen RxNorm: 029747 INJECT 75 UNITS SUBCUTANEOUSLY EVERY DAY 08/13/2014 10/31/2014 Inactive Novolog 100 unit/mL subcutaneous solution RxNorm: 934309 Unit(s) SQ Inject as directed using sliding scale B 07/15/2014 01/26/2015 Inactive Apidra SoloStar 100 unit/mL subcutaneous insulin pen RxNorm: 706631 Unit(s) SQ INJECT DIRECTED USING SLIDING SCALE B 07/11/2014 07/14/2014 Inactive Diovan 320 mg tablet RxNorm: 646042 1 Tablet(s) PO QD 06/10/2014 06/04/2015 Inactive Apidra SoloStar 100 unit/mL subcutaneous insulin pen RxNorm: 576750 Unit(s) SQ INJECT DIRECTED USING SLIDING SCALE B 04/18/2014 07/10/2014 Inactive Levemir Flexpen 100 unit/mL (3 mL) solution subcutaneous insulin pen RxNorm: 237965 Unit(s) SQ INJECT 75 UNITS SUBCUTANEOUSLY EVERY DAY 02/28/2014 02/27/2014 Inactive [SAVINGS FOR UNINSURED PATIENTS -- BIN:[id number], PCN: [id number], Group: [facility], ID# [id number], Process claim through [employer], for questions: . THIS IS NOT INSURANCE.] Apidra SoloStar 100 unit/mL subcutaneous insulin pen RxNorm: 894045 Unit(s) SQ INJECT DIRECTED USING SLIDING SCALE B 09/05/2013 04/17/2014 Inactive Pen Needle 31 gauge x 5/16" RxNorm: Miscellaneous USE DIRECT ED WITH LEVEMIR AND APIDRA 08/23/2013 11/18/2015 Inactive Prograf 1 mg capsule RxNorm: 368582 2 Capsule(s) PO BID Generic OK to fill 08/21/2013 No Stop Date Active Diovan 320 mg tablet RxNorm: 938838 1 Tablet(s) PO QD 05/30/2013 05/24/2014 Inactive fluoxetine 20 mg tablet RxNorm: 105595 1 Tablet(s) PO QAM 05/30/2013 07/31/2013 Inactive fluoxetine 20 mg tablet RxNorm: 002662 1 Tablet(s) PO QAM 04/29/2013 05/29/2013 Inactive amlodipine 5 mg tablet RxNorm: 196861 1 Tablet(s) PO QD 04/29/2013 02/25/2019 Inactive ketoconazole 2 % top ical cream RxNorm: 559845 Application TOP BID f or 2-4wks 04/29/2013 05/12/2013 In active Diovan 320 mg tablet RxNorm: 359541 1 Tablet(s) PO QD 04/29/2013 06/10/2014 Inactive Apidra SoloStar 100 unit/mL subcutaneous insulin pen RxNorm: 721565 Unit(s) SQ Sliding Scale B 02/19/2013 09/05/2013 Inactive Levemir Flexpen 100 unit/mL (3 mL) solution subcutaneous insulin pen RxNorm: 309057 Insulin Pen SQ INJECT 75 UNITS SUBCUTANEOUSLY EVERY DA Y 01/21/2013 02/28/2014 Inactive Septra DS 800 mg-160 mg tablet RxNorm: 955787 1 Tablet(s) PO BID an tibiotic 01/01/2013 01/07/2013 In active ketoconazole 2 % top ical cream RxNorm: 945483 1 Application TOP BID 01/01/2013 01/14/2013 Inactive Levemir Flexpen 100 unit/mL (3 mL) Sub-Q Insulin Pen RxNorm: 426828 Unit(s) SQ INJECT 75 UNITS SUB-Q ONCE A DAY 12/07/2012 No Stop Date Active Levemir Flexpen 100 unit/mL (3 mL) Sub-Q Insulin Pen RxNorm: 649946 Unit(s) SQ INJECT 75 UNITS SUB-Q ONCE A DAY 10/22/2012 12/07/2012 Inactive Levemir Flexpen 100 unit/mL (3 mL) Sub-Q Insulin Pen RxNorm: 487315 75 Unit(s) SQ QHS 08/20/2012 10/22/2012 Inactive Diovan 320 mg tablet RxNorm: 377604 1 Tablet(s) PO QD 07/30/2012 04/28/2013 Inactive Levemir Flexpen 100 unit/mL (3 mL) Sub-Q Insulin Pen RxNorm: 168394 Insulin Pen SQ INJECT 75 UNITS SUB-Q ONCE A DAY 07/30/2012 10/21/2012 Inactive Levemir Flexpen 100 unit/mL (3 mL) Sub-Q Insulin Pen RxNorm: 990483 75 Unit(s) SQ QHS 07/30/2012 08/19/2012 Inactive Levemir Flexpen 100 unit/mL (3 mL) Sub-Q Insulin Pen RxNorm: 153829 75 Unit(s) SQ QHS 07/30/2012 07/29/2012 Inactive Diovan 320 mg tablet RxNorm: 878179 1 Tablet(s) PO QD 06/21/2012 06/20/2012 Inactive Diovan 320 mg tablet RxNorm: 121075 1 Tablet(s) PO QD 06/21/2012 06/20/2012 Inactive Diovan 320 mg tablet RxNorm: 367479 1 Tablet(s) PO QD 06/21/2012 07/29/2012 Inactive CellCept 250 mg capsule RxNorm: 783626 4 Capsule(s) PO BID 06/14/2012 06/20/2012 Inactive Prograf 1 mg capsule RxNorm: 703007 2 Capsule(s) PO BID Generic OK to fill 06/14/2012 06/20/2012 In active Apidra SoloStar 100 unit/mL Sub-Q Insulin Pen RxNorm: 921174 Unit(s) SQ Sliding Sc supriya B 06/13/2012 12/03/2018 Inactive Levemir Flexpen 100 unit/mL (3 mL) Sub-Q Insulin Pen RxNorm: 992686 75 Unit(s) SQ QD 06/13/2012 No Stop Date Active Apidra SoloStar 100 unit/mL Sub-Q Insulin Pen RxNorm: 876136 Unit(s) SQ Sliding Sc supriya B 06/13/2012 No Stop Date Active One Touch Delica Adeel cets RxNorm: Miscellaneous 0 06/13/2012 04/04/2017 Inactive Lipitor 40 mg tablet RxNorm: 689129 1 Tablet(s) PO QD 05/30/2012 08/27/2012 Inactive Diovan 320 mg tablet RxNorm: 415788 1 Tablet(s) PO QD 05/30/2012 06/20/2012 Inactive Tricor 145 mg tablet RxNorm: 133231 1 Tablet(s) PO QD 05/30/2012 08/27/2012 Inactive Lipitor 20 mg Tab RxNorm: 974985 1 Tablet(s) PO QD 09/12/2011 05/29/2012 Inactive Synthroid 50 mcg Tab RxNorm: 178483 1 Tablet(s) PO QD 09/12/2011 12/02/2015 Inactive Diovan 320 mg tablet RxNorm: 184206 1 Tablet(s) PO QD 09/12/2011 03/09/2012 Inactive amlodipine 5 mg tablet RxNorm: 463681 1 Tablet(s) PO QD 09/12/2011 03/09/2012 Inactive Diovan 320 mg Tab RxNorm: 741860 1 Tablet(s) PO QD 06/14/2011 09/11/2011 Inactive Diovan 160 mg Tab RxNorm: 959710 1 Tablet(s) PO QD 03/03/2011 06/13/2011 Inactive cefdinir 300 mg Cap RxNorm: 273925 2 Capsule(s) PO QD 01/27/2011 02/05/2011 Inactive Synthroid 50 mcg Tab RxNorm: 320776 1 Tablet(s) PO QD 12/02/2010 01/30/2011 Inactive Multivitamin & Purvis al Formula Tab RxNorm: 1 Tablet(s) PO QD No Start Date Active Miralax 17 gram/dose oral powder RxNorm: 765234 PO BID in 6-8 ounces of water No Start Date Active Tylenol Extra Streng th 500 mg tablet RxNorm: 727441 Tablet(s) PO as neede d No Start Date Active pantoprazole 40 mg t ablet,delayed release RxNorm: 592197 1 Tablet(s) PO QD No Start Date Active Tricor Oral RxNorm: Oral No Start Date 05/29 Inactive MagOx 400 mg tablet RxNorm: 741070 1 Tablet(s) PO QD No Start Date 06/19/2016 Inactive sodium bicarbonate Oral RxNorm: Oral No Start Date 06/19/2016 Inactive Fish Oil 1,000 mg ca psule RxNorm: 1 Capsule(s) PO QD No Start Date 04/04/2017 Inactive Novofine Misc RxNorm: Miscellaneous No Start Date 06/12/2012 Inactive Percocet 5 mg-325 mg tablet RxNorm: 2664306 Tablet(s) PO as need ed Dr Parson No Start Date 04/04/2017 Inactive Contour Test Strips RxNorm: miscellaneous No Start Date 01/26/2015 Inactive Prograf 1 mg capsule RxNorm: 864159 2 Capsule(s) PO BID No Start Date 06/13/2012 Inactive Zantac 150 mg Tab RxNorm: 674702 Tablet(s) PO PRN No Start Date 12/02/2015 Inactive Levemir FlexTouch 10 0 unit/mL (3 mL) subcutaneous insulin pen RxNorm: 703126 75 Unit(s) SQ QHS No Start Date 03/08/2015 Inactive CellCept 250 mg capsule RxNorm: 008759 4 Capsule(s) PO BID No Start Date 06/13/2012 Inactive Novolog 100 unit/mL subcutaneous solution RxNorm: 687358 Unit(s) SQ Inject as directed using sliding scale B No Start Date 07/14/2014 Inactive Novolog Flexpen 100 unit/mL subcutaneous RxNorm: 2285969 Unit(s) SQ as needed Sliding scale No Start Date 06/14/2015 Inactive Apidra SoloStar 100 unit/mL Sub-Q Insulin Pen RxNorm: 013808 Unit(s) SQ Sliding Sc supriya B No Start Date 06/12/2012 Inactive Levemir FlexTouch U- 100 Insulin 100 unit/mL (3 mL) subcutaneous pen RxNorm: 473648 70 Unit(s) SQ BID No Start Date 02/06/2018 Inactive Pen Needle 31 X 5/16" RxNorm: Miscellaneous No Start Date 08/23/2013 Inactive Synthroid 50 mcg Tab RxNorm: 979106 1 Tablet(s) PO QD No Start Date 09/11/2011 Inactive Levemir Flexpen 100 unit/mL (3 mL) Sub-Q Insulin Pen RxNorm: 778599 70 Unit(s) SQ QHS No Start Date 07/29/2012 Inactive Levemir FlexTouch U- 100 Insulin 100 unit/mL (3 mL) subcutaneous pen RxNorm: 274865 80 Unit(s) SQ BID No Start Date 02/14/2018 Inactive Levemir FlexTouch 10 0 unit/mL (3 mL) subcutaneous insulin pen RxNorm: 149207 80 Unit(s) SQ QPM No Start Date 09/04/2016 Inactive Lipitor 40 mg tablet RxNorm: 789724 1 Tablet(s) PO QD No Start Date 04/04/2017 Inactive Ultram 50 mg tablet RxNorm: 377596 2 Tablet(s) PO TID as needed for pain No Start Date 06/10/2015 Inactive Prograf 1 mg Cap RxNorm: 849645 2 Capsule(s) PO BID No Start Date 05/20/2012 Inactive insulin needles (dis posable) 32 x 5/16" RxNorm: Miscellaneous for use with flex pen No Start Date 04/04/2017 Inactive Levemir FlexTouch U- 100 Insulin 100 unit/mL (3 mL) subcutaneous pen RxNorm: 840998 90 Unit(s) SQ BID No Start Date 07/05/2018 Inactive Levemir Flexpen 100 unit/mL (3 mL) Sub-Q Insulin Pen RxNorm: 621082 65 Unit(s) SQ QD No Start Date 06/12/2012 Inactive Zithromax Z-Mateus 250 mg Tab RxNorm: 616767 Tablet(s) PO No Start Date 06/13/2011 Inactive as directed Lipitor 20 mg Tab RxNorm: 299801 1 Tablet(s) PO QD No Start Date [...] ICD- 10: Z48.298 ICD-9: V58.44 08/24/2018 Other assisted (current) drug therapy ICD-10: Z79.899 ICD-9: V58.69 [...] Code Item Item Code Result Date MAGNESIUM 15823 MAGNESIUM 1.4 mEq/L 02/19/2019 GFR CALC 2335370 GFR Non Afr Amr 37 mL/min 02/19/2019 GFR CALC 0018061 GFR Afr Amr 45 mL/min 02/19/2019 LIPID GROUP 71350 Choles terol 250 mg/dL 02/19/2019 LIPID GROUP 02233 Trigly ceride 465 mg/dL 02/19/2019 LIPID GROUP 01375 HDL CH OLESTEROL 30 mg/dL 02/19/2019 LIPID GROUP 63971 Chol/H DL Ratio 8.33 ratio 02/19/2019 LIPID GROUP 74448 NON-HD L Chol 220 mg/dL 02/19/2019 LIPID GROUP 88294 LDL Ch olesterol N/A Trig >400 019 LIPID GROUP 39399 Fasting Unknown 02/19/2019 COMPREHENSIVE METABOLIC 86228 AST 20 U/L 02/19/2019 COMPREHENSIVE METABOLIC 83815 ALT 30 U/L 02/19/2019 COMPREHENSIVE METABOLIC 42127 BUN 27 mg/dL 02/19/2019 COMPREHENSIVE METABOLIC 08554 ALBUMIN 3.7 g/dL 02/19/2019 COMPREHENSIVE METABOLIC 20577 CHLORIDE 105 mmol/L 02/19/2019 COMPREHENSIVE METABOLIC 35258 Bili Total 0.5 mg/dL 02/19/2019 COMPREHENSIVE METABOLIC 42935 ALK PHOS 79 U/L 02/19/2019 COMPREHENSIVE METABOLIC 66314 SODIUM 137 mmol/L 02/19/2019 COMPREHENSIVE METABOLIC 78958 CREATININE 2.10 mg/dL 02/19/2019 COMPREHENSIVE METABOLIC 81113 CALCIUM 9.5 mg/dL 02/19/2019 COMPREHENSIVE METABOLIC 05961 POTASSIUM 4.2 mmol/L 02/19/2019 COMPREHENSIVE METABOLIC 51459 Total Protein 6.5 g/dL 02/19/2019 COMPREHENSIVE METABOLIC 47614 Glucose 202 mg/dL 02/19/2019 COMPREHENSIVE METABOLIC 74012 Bicarbonate 22 mmol/L 02/19/2019 COMPREHENSIVE METABOLIC 72644 AGAP 10 mmol/L 02/19/2019 LIPID GROUP 01760 Choles terol 320 mg/dL 08/27/2018 LIPID GROUP 37640 Trigly ceride 444 mg/dL 08/27/2018 LIPID GROUP 61049 HDL CH OLESTEROL 39 mg/dL 08/27/2018 LIPID GROUP 26959 Chol/H DL Ratio 8.21 ratio 08/27/2018 LIPID GROUP 85346 NON-HD L Chol 281 mg/dL 08/27/2018 LIPID GROUP 65995 LDL Ch olesterol N/A Trig >400 019 LIPID GROUP 40916 Fasting Unknown 08/27/2018 PHOSPHORUS 4593014 PHOSP HORUS 2.1 mg/dL 08/24/2018 PROTEIN/CREAT URINE WITH RATIO 21738|64838 U Protein 515 mg/dL 08/24/2018 PROTEIN/CREAT URINE WITH RATIO 26823|43855 U Creatinine 116 mg/dL 08/24/2018 PROTEIN/CREAT URINE WITH RATIO 37968|66725 Prot:Creat Rat 4440 mg/g 08/24/2018 MAGNESIUM 61386 MAGNESIUM 1.4 mEq/L 08/24/2018 GFR CALC 0834364 GFR Non Afr Amr 44 mL/min 08/24/2018 GFR CALC 7186445 GFR Afr Amr 53 mL/min 08/24/2018 [place] [address] Glucose TNP:Unknown Cancel Reason 08/24/2018 [place] [address] CREATININE TNP:Unknown Cancel Reason 08/24/2018 [place] [address] BUN TNP:Unknown Cancel Reason 08/24/2018 [place] [address] SODIUM TNP:Unknown Cancel Reason 08/24/2018 [place] [address] POTASSIUM TNP:Unknown Cancel Reason 08/24/2018 [place] [address] CHLORIDE TNP:Unknown Cancel Reason 08/24/2018 [place] [address] Bicarbonate TNP:Unknown Cancel Reason 08/24/2018 [place] [address] AGAP TNP:Unknown Cancel Reason 08/24/2018 [place] [address] CALCIUM TNP:Unknown Cancel Reason 08/24/2018 COMPREHENSIVE METABOLIC 14007 AST 21 U/L 08/24/2018 COMPREHENSIVE METABOLIC 34420 ALT 35 U/L 08/24/2018 COMPREHENSIVE METABOLIC 90118 BUN 25 mg/dL 08/24/2018 COMPREHENSIVE METABOLIC 26865 ALBUMIN 4.5 g/dL 08/24/2018 COMPREHENSIVE METABOLIC 21186 CHLORIDE 106 mmol/L 08/24/2018 COMPREHENSIVE METABOLIC 56228 Bili Total 0.4 mg/dL 08/24/2018 COMPREHENSIVE METABOLIC 31139 ALK PHOS 64 U/L 08/24/2018 COMPREHENSIVE METABOLIC 22758 SODIUM 141 mmol/L 08/24/2018 COMPREHENSIVE METABOLIC 52644 CREATININE 1.81 mg/dL 08/24/2018 COMPREHENSIVE METABOLIC 90369 CALCIUM 10.3 mg/dL 08/24/2018 COMPREHENSIVE METABOLIC 05934 POTASSIUM 3.4 mmol/L 08/24/2018 COMPREHENSIVE METABOLIC 52521 Total Protein 7.2 g/dL 08/24/2018 COMPREHENSIVE METABOLIC 19331 Glucose 101 mg/dL 08/24/2018 COMPREHENSIVE METABOLIC 15883 Bicarbonate 23 mmol/L 08/24/2018 COMPREHENSIVE METABOLIC 75160 AGAP 12 mmol/L 08/24/2018 UA W/MICR 28286 UA Urine Appear Normal 08/24/2018 UA W/MICR 67296 UA Prote in 3+ 08/24/2018 UA W/MICR 08041 UA Hemog lobin Trace 08/24/2018 UA W/MICR 55555 UA Gluco se 3+ 08/24/2018 UA W/MICR 98898 UA [place] es Negative 08/24/2018 UA W/MICR 19434 UA pH 6.0 08/24/2018 UA W/MICR 32215 U Spec G ravity 1.025 08/24/2018 UA W/MICR 54702 UA Bilir ubin Negative 08/24/2018 UA W/MICR 17057 UA Leuk Esteras Negative 08/24/2018 UA W/MICR 48016 UA Nitri te NEG 08/24/2018 UA W/MICR 43941 UA WBC/h pf 1 08/24/2018 UA W/MICR 70464 UA RBC a uto 12.9 /uL 08/24/2018 UA W/MICR 18239 UA RBC h pf 2 08/24/2018 UA W/MICR 80559 UA WBC a uto 5.9 /uL 08/24/2018 UA W/MICR 57014 UA SQ EP I auto 5.2 /uL 08/24/2018 UA W/MICR 75278 UA H Jamil t auto 0.10 /uL 08/24/2018 PROGRAF 8761689 Prograf 7.3 ng/mL 08/24/2018 MICROALBUMIN URINE RANDOM 88397 U Microalbumin 3485.2 mg/L 08/24/2018 MICROALBUMIN URINE RANDOM 91931 U Creatinine 116 mg/dL 08/24/2018 MICROALBUMIN URINE RANDOM 71024 ALB/CR Ratio 3004.5 mg/gCR 08/25/19 19 GLYCOSYLATED HEMOGLOBIN TEST 27195 Hgb A1c 17325-7 13.3 % 9 MEAN GLUC Calc M sherron Gluc 335 mg/dL 06/29/2018 COMPREHENSIVE METABOLIC 76572 AST 17 U/L 02/06/2018 COMPREHENSIVE METABOLIC 94535 ALT 24 U/L 02/06/2018 COMPREHENSIVE METABOLIC 85553 BUN 24 mg/dL 02/06/2018 COMPREHENSIVE METABOLIC 02506 ALBUMIN 3.9 g/dL 02/06/2018 COMPREHENSIVE METABOLIC 41189 CHLORIDE 108 mmol/L 02/06/2018 COMPREHENSIVE METABOLIC 16135 Bili Total 0.6 mg/dL 02/06/2018 COMPREHENSIVE METABOLIC 55015 ALK PHOS 67 U/L 02/06/2018 COMPREHENSIVE METABOLIC 20093 SODIUM 140 mmol/L 02/06/2018 COMPREHENSIVE METABOLIC 68562 CREATININE 1.75 mg/dL 02/06/2018 COMPREHENSIVE METABOLIC 39066 CALCIUM 9.6 mg/dL 02/06/2018 COMPREHENSIVE METABOLIC 22786 POTASSIUM 3.8 mmol/L 02/06/2018 COMPREHENSIVE METABOLIC 06387 Total Protein 7.1 g/dL 02/06/2018 COMPREHENSIVE METABOLIC 32524 Glucose 62 mg/dL 02/06/2018 COMPREHENSIVE METABOLIC 60843 Bicarbonate 23 mmol/L 02/06/2018 COMPREHENSIVE METABOLIC 96078 AGAP 9 mmol/L 02/06/2018 GLYCOSYLATED HEMOGLOBIN TEST 36682 Hgb A1c 10228-1 13.0 % 8 GFR CALC 7975245 GFR Non Afr Amr 46 mL/min 02/06/2018 GFR CALC 2590223 GFR Afr Amr 55 mL/min 02/06/2018 MICROALBUMIN URINE RANDOM 34232 U Microalbumin 669.0 mg/L 02/06/2018 MICROALBUMIN URINE RANDOM 69447 U Creatinine 92 mg/dL 02/06/2018 MICROALBUMIN URINE RANDOM 90598 ALB/CR Ratio 727.2 mg/gCR 8 MEAN GLUC Calc M sherron Gluc 326 mg/dL 02/06/2018 GLYCOSYLATED HEMOGLOBIN TEST 53637 Hgb A1c 80369-7 14.3 % 6 THYROID STIMULATING HORMONE 62607 TSH 1.909 uIU/mL 6 MAGNESIUM 05602 MAGNESIUM 1.5 mEq/L 12/03/2015 GFR CALC 0766224 GFR Non Afr Amr 39 mL/min 12/03/2015 GFR CALC 8711177 GFR Afr Amr 48 mL/min 12/03/2015 MEAN GLUC 5193725 Mean G lucose 364 mg/dL 12/03/2015 COMPREHENSIVE METABOLIC 32535 AST 34 U/L 12/03/2015 COMPREHENSIVE METABOLIC 48686 ALT 78 U/L 12/03/2015 COMPREHENSIVE METABOLIC 75376 BUN 29 mg/dL 12/03/2015 COMPREHENSIVE METABOLIC 17253 ALBUMIN 4.3 g/dL 12/03/2015 COMPREHENSIVE METABOLIC 34414 CHLORIDE 93 mmol/L 12/03/2015 COMPREHENSIVE METABOLIC 79803 Bili Total 0.7 mg/dL 12/03/2015 COMPREHENSIVE METABOLIC 60955 ALK PHOS 83 U/L 12/03/2015 COMPREHENSIVE METABOLIC 83874 SODIUM 125 mmol/L 12/03/2015 COMPREHENSIVE METABOLIC 72375 CREATININE 2.01 mg/dL 12/03/2015 COMPREHENSIVE METABOLIC 92110 CALCIUM 9.8 mg/dL 12/03/2015 COMPREHENSIVE METABOLIC 76715 POTASSIUM 4.3 mmol/L 12/03/2015 COMPREHENSIVE METABOLIC 72980 Total Protein 7.3 g/dL 12/03/2015 COMPREHENSIVE METABOLIC 50700 Glucose 542 mg/dL 12/03/2015 COMPREHENSIVE METABOLIC 66495 Bicarbonate 23 mmol/L 12/03/2015 COMPREHENSIVE METABOLIC 45518 AGAP 9 mmol/L 12/03/2015 COMPREHENSIVE METABOLIC 89842 AST 31 U/L 07/30/2013 COMPREHENSIVE METABOLIC 21675 ALT 52 IU/L 07/30/2013 COMPREHENSIVE METABOLIC 18667 BUN 26 MG/DL 07/30/2013 COMPREHENSIVE METABOLIC 83430 ALBUMIN 4.9 GM/DL 07/30/2013 COMPREHENSIVE METABOLIC 05120 CHLORIDE 108 MMOL/L 07/30/2013 COMPREHENSIVE METABOLIC 24216 BILI TOT 0.4 MG/DL 07/30/2013 COMPREHENSIVE METABOLIC 35188 ALK PHOS 68 U/L 07/30/2013 COMPREHENSIVE METABOLIC 68528 SODIUM 138 MMOL/L 07/30/2013 COMPREHENSIVE METABOLIC 50979 CREATININE 2.02 MG/DL 07/30/2013 COMPREHENSIVE METABOLIC 24537 CALCIUM 10.3 MG/DL 07/30/2013 COMPREHENSIVE METABOLIC 49059 POTASSIUM 5.0 MMOL/L 07/30/2013 COMPREHENSIVE METABOLIC 21854 PROT TOT 7.3 GM/DL 07/30/2013 COMPREHENSIVE METABOLIC 73227 Glucose 89 MG/DL 07/30/2013 COMPREHENSIVE METABOLIC 16092 BICARB 24 MMOL/L 07/30/2013 COMPREHENSIVE METABOLIC 42952 ANION GAP 6 MEQ/L 07/30/2013 GFR CALC 2610914 GFR AA 48.0L ML/MIN 07/30/2013 GFR CALC 6223422 GFR NON -AA 40.0L ML/MIN 4 COMPLETE BLOOD COUNT 5996569 WBC 7.9 10e9/L 07/30/2013 COMPLETE BLOOD COUNT 6297398 RBC 4.94 10e12/L 4 COMPLETE BLOOD COUNT 8061675 HGB 14.0 g/dL 07/30/2013 COMPLETE BLOOD COUNT 2833721 HCT DET 41.5 % 07/30/2013 COMPLETE BLOOD COUNT 9442674 MCV 84.0 fL 07/30/2013 COMPLETE BLOOD COUNT 3525276 MCH 28.3 pg 07/30/2013 COMPLETE BLOOD COUNT 4922407 MCHC 33.7 g/dL 07/30/2013 COMPLETE BLOOD COUNT 6272627 PLT 176 10e9/L 07/30/2013 COMPLETE BLOOD COUNT 7847978 MPV 11.8 fL 07/30/2013 COMPLETE BLOOD COUNT 4481053 CLAYTON % 75.4 % 07/30/2013 COMPLETE BLOOD COUNT 8585357 LY % 13.7 % 07/30/2013 COMPLETE BLOOD COUNT 9561098 MON % 8.9 % 07/30/2013 COMPLETE BLOOD COUNT 2089628 EOS % 1.7 % 07/30/2013 COMPLETE BLOOD COUNT 9259393 BASO % 0.3 % 07/30/2013 COMPLETE BLOOD COUNT 8598798 RDW 13.4 % 07/30/2013 COMPLETE BLOOD COUNT 8896034 ABS CLAYTON 5.96 10e9/L 07/30/2013 COMPLETE BLOOD COUNT 5326264 ABS LYMPH 1.08 10e9/L 07/30/2013 COMPLETE BLOOD COUNT 2369279 ABS MONO 0.70 10e9/L 07/30/2013 COMPLETE BLOOD COUNT 2683967 ABS EOS 0.13 10e9/L 07/30/2013 COMPLETE BLOOD COUNT 6655299 ABS BASO 0.02 10e9/L 07/30/2013 COMPLETE BLOOD COUNT 1065487 RDW-SD 40.2 fL 07/30/2013 C-REACTIVE PROTEIN (CRP) QUANT 00438 CRP 0.2 MG/DL 07/30/2013 CANCEL 8077650 CANCEL FOOTNOTE 05/23/2012 PEND CHEM PEND C HEM FOOTNOTE 05/22/2012 COMPREHENSIVE METABOLIC 82961 AST 61 U/L 05/21/2012 COMPREHENSIVE METABOLIC 81429 ALT 106 U/L 05/21/2012 COMPREHENSIVE METABOLIC 20819 BUN 33 MG/DL 05/21/2012 COMPREHENSIVE METABOLIC 37376 ALBUMIN 5.0 GM/DL 05/21/2012 COMPREHENSIVE METABOLIC 19366 CHLORIDE 89 MMOL/L 05/21/2012 COMPREHENSIVE METABOLIC 45954 BILI TOT 0.6 MG/DL 05/21/2012 COMPREHENSIVE METABOLIC 73728 ALK PHOS 129 U/L 05/21/2012 COMPREHENSIVE METABOLIC 18118 SODIUM 120 MMOL/L 05/21/2012 COMPREHENSIVE METABOLIC 33828 CREATININE 2.23 MG/DL 05/21/2012 COMPREHENSIVE METABOLIC 49282 CALCIUM 9.8 MG/DL 05/21/2012 COMPREHENSIVE METABOLIC 08483 POTASSIUM 5.3 MMOL/L 05/21/2012 COMPREHENSIVE METABOLIC 33409 PROT TOT 7.8 GM/DL 05/21/2012 COMPREHENSIVE METABOLIC 33561 Glucose 789 MG/DL 05/21/2012 COMPREHENSIVE METABOLIC 48118 BICARB 20 MMOL/L 05/21/2012 COMPREHENSIVE METABOLIC 00341 ANION GAP 11 MMOL/L 05/21/2012 GFR CALC 9221593 GFR AA 43.0L ML/MIN 05/21/2012 GFR CALC 7497264 GFR NON -AA 36.0L ML/MIN 2 THYROID STIMULATING HORMONE 27114 TSH 1.499 uIU/ML 1 FREE T4 77807 FREE T4 1.15 NG/DL 01/27/2011 Review of [...] Procedures Procedure Codes Date ROUTINE VENIPUNCTURE CPT-4: 59322 02/19/2019 METABOLIC PANEL TOTA L CA CPT-4: 88962 02/19/2019 MICROALBUMIN, QUANTI TATIVE CPT-4: 82709 02/19/2019 LIPID PANEL CPT-4: 79883 02/19/2019 COMPREHEN METABOLIC PANEL CPT-4: 83629 02/19/2019 ASSAY OF MAGNESIUM CPT- 4: 23296 02/19/2019 METABOLIC PANEL TOTA L CA CPT-4: 44298 08/24/2018 COMPREHEN METABOLIC PANEL CPT-4: 05642 08/24/2018 ASSAY OF MAGNESIUM CPT- 4: 20169 08/24/2018 MICROALBUMIN QUANTIT ATIVE CPT-4: 80159 08/24/2018 PROTEIN/CREAT URINE WITH RATIO CPT-4: 12984|36287 08/24/2018 PHOSPHORUS CPT-4: 7214458 08/24/2018 LIPID PANEL CPT-4: 09061 08/24/2018 ROUTINE VENIPUNCTURE CPT-4: 82338 06/29/2018 A1C HPLC CPT-4: 87067 06/29/2018 URINALYSIS NONAUTO W /O SCOPE CPT-4: 81941 02/06/2018 URINE CULTURE/ COLON Y COUNT CPT-4: 87208 02/06/2018 MICROALBUMIN QUANTIT ATIVE CPT-4: 54565 02/06/2018 ROUTINE VENIPUNCTURE CPT-4: 33464 02/06/2018 COMPREHEN METABOLIC PANEL CPT-4: 59322 02/06/2018 A1C HPLC CPT-4: 12653 02/06/2018 ROUTINE VENIPUNCTURE CPT-4: 83197 11/02/2017 COMPREHEN METABOLIC PANEL CPT-4: 15698 11/02/2017 A1C HPLC CPT-4: 76520 11/02/2017 TDAP VACCINE 7 YRS/> IM CPT-4: 21753 07/27/2017 IMMUNIZATION ADMIN CPT- 4: 77735 07/27/2017 URINALYSIS NONAUTO W /O SCOPE CPT-4: 95700 02/16/2016 URINE CULTURE/ COLON Y COUNT CPT-4: 65997 02/16/2016 PRESCRIP TRANSMIT A ERX SY CPT-4: G8553 02/16/2016 ROUTINE VENIPUNCTURE CPT-4: 07911 12/03/2015 ASSAY THYROID STIM H ORMONE CPT-4: 18083 12/03/2015 COMPREHEN METABOLIC PANEL CPT-4: 46376 12/03/2015 A1C HPLC CPT-4: 58312 12/03/2015 ASSAY OF MAGNESIUM CPT- 4: 48140 12/03/2015 URINALYSIS NONAUTO W /O SCOPE CPT-4: 42827 12/03/2015 URINE CULTURE/ COLON Y COUNT CPT-4: 01771 12/03/2015 URINALYSIS NONAUTO W /O SCOPE CPT-4: 01746 07/30/2013 URINE CULTURE/ COLON Y COUNT CPT-4: 02790 07/30/2013 ROUTINE VENIPUNCTURE CPT-4: 27600 07/30/2013 COMPLETE CBC W/AUTO DIFF WBC CPT-4: 86494 07/30/2013 COMPREHEN METABOLIC PANEL CPT-4: 96355 07/30/2013 C-REACTIVE PROTEIN CPT- 4: 09211 07/30/2013 ROUTINE VENIPUNCTURE CPT-4: 55095 08/20/2012 ASSAY OF FREE THYROXINE CPT-4: 71972 08/20/2012 ASSAY THYROID STIM H ORMONE CPT-4: 61364 08/20/2012 COMPREHEN METABOLIC PANEL CPT-4: 11419 08/20/2012 COMPLETE CBC W/AUTO DIFF WBC CPT-4: 23767 08/20/2012 LIPID PANEL CPT-4: 46313 08/20/2012 A1C GLYCOSYLATED HEM OGLOBIN TEST CPT-4: 66602 08/20/2012 ASSAY, GLUCOSE, BLOO D QUANT CPT-4: 83618 06/21/2012 ASSAY, GLUCOSE, BLOO D QUANT CPT-4: 92265 05/21/2012 ROUTINE VENIPUNCTURE CPT-4: 95278 05/21/2012 COMPREHEN METABOLIC PANEL CPT-4: 64312 05/21/2012 A1C GLYCOSYLATED HEM OGLOBIN TEST CPT-4: 61558 05/21/2012 CURRENT SMKLESS [employer] USER CPT-4: G8456 06/14/2011 PT VIS DOC USE EHR C ER ATCB CPT-4: G8447 06/14/2011 PRESCRIP TRANSMIT A ERX SY CPT-4: G8553 06/14/2011 PT VIS DOC USE EHR C ER ATCB CPT-4: G8447 03/03/2011 PRESCRIP TRANSMIT A ERX SY CPT-4: G8553 03/03/2011 ROUTINE VENIPUNCTURE CPT-4: 10192 01/27/2011 ASSAY OF FREE THYROXINE CPT-4: 15737 01/27/2011 ASSAY THYROID STIM H ORMONE CPT-4: 85927 01/27/2011 PT VIS DOC USE EHR C [...] 1: 158/90 Code: 8480-6 BMI: 34.3 Code: 76777-8 Heart Rate 1: 78 bpm Height: 6'1" Respiratory Rate: 20 bpm SpO2: 98% Temperature: 36.6 (C ) / 97.8 (F) Weight: 260 lbs 11/02/2017 Blood Pressure 1: 134/92 Code: 8480-6 BMI: 32.3 Code: 03611-0 Heart Rate 1: 72 bpm Height: 6'1" SpO2: 98% Temperature: 36.4 (C ) / 97.5 (F) Weight: 245 lbs 07/27/2017 Blood Pressure 1: 136/64 Code: 8480-6 BMI: 30.9 Code: 00830-0 Heart Rate 1: 78 bpm Height: 6'1" Respiratory Rate: 22 bpm SpO2: 98% Temperature: 36.4 (C ) / 97.6 (F) Weight: 234 lbs 04/05/2017 Blood Pressure 1: 126/90 Code: 8480-6 BMI: 33.5 Code: 21329-5 Heart Rate 1: 76 bpm Height: 6'1" Respiratory Rate: 20 bpm SpO2: 97% Temperature: 37.0 (C ) / 98.6 (F) Weight: 254 lbs 06/20/2016 Blood Pressure 1: 122/74 Code: 8480-6 BMI: 35.2 Code: 02742-8 Heart Rate 1: 80 bpm Height: 6'1" Respiratory Rate: 20 bpm SpO2: 97% Temperature: 36.9 (C ) / 98.5 (F) Weight: 267 lbs 02/16/2016 Blood Pressure 1: 136/82 Code: 8480-6 BMI: 36.4 Code: 44225-3 Heart Rate 1: 66 bpm Height: 6'1" Respiratory Rate: 18 bpm SpO2: 96% Temperature: 36.4 (C ) / 97.6 (F) Weight: 276 lbs 12/03/2015 Blood Pressure 1: 122/86 Code: 8480-6 BMI: 39.2 Code: 18004-9 Heart Rate 1: 76 bpm Height: 6' Respiratory Rate: 20 bpm Temperature: 37.1 (C ) / 98.7 (F) Weight: 289 lbs 06/24/2015 Blood Pressure 1: 136/84 Code: 8480-6 BMI: 40.7 Code: 08605-6 Heart Rate 1: 84 bpm Height: 6' Respiratory Rate: 20 bpm Temperature: 36.9 (C ) / 98.4 (F) Weight: 300 lbs 06/11/2015 Blood Pressure 1: 160/82 Code: 8480-6 BMI: 40.4 Code: 30848-7 Heart Rate 1: 82 bpm Height: 6' Respiratory Rate: 22 bpm Temperature: 36.5 (C ) / 97.7 (F) Weight: 298 lbs 07/17/2014 Blood Pressure 1: 132/84 Code: 8480-6 BMI: 41.0 Code: 96369-4 Heart Rate 1: 76 bpm Height: 6'1" Respiratory Rate: 20 bpm Temperature: 36.9 (C ) / 98.4 (F) Weight: 311 lbs 10/31/2013 Blood Pressure 1: 132/80 Code: 8480-6 BMI: 41.2 Code: 60627-0 Heart Rate 1: 84 bpm Height: 6'1" Respiratory Rate: 22 bpm Temperature: 36.1 (C ) / 97.0 (F) Weight: 312 lbs 08/01/2013 Blood Pressure 1: 142/86 Code: 8480-6 BMI: 42.4 Code: 48787-9 Heart Rate 1: 84 bpm Height: 6' [...] 1: 156/108 Code: 8480-6 BMI: 41.9 Code: 75968-5 Heart Rate 1: 92 bpm Height: 6' Respiratory Rate: 20 bpm Temperature: 36.9 (C ) / 98.4 (F) Weight: 309 lbs 02/27/2013 Blood Pressure 1: 162/114 Code: 8480-6 BMI: 41.0 Code: 78269-1 Heart Rate 1: 84 bpm Height: 6' Respiratory Rate: 20 bpm Temperature: 36.7 (C ) / 98.0 (F) Weight: 302 lbs 01/01/2013 Blood Pressure 1: 138/86 Code: 8480-6 BMI: 41.0 Code: 42276-9 Heart Rate 1: 76 bpm Height: 6' Respiratory Rate: 20 bpm Temperature: 36.7 (C ) / 98.0 (F) Weight: 302 lbs 11/27/2012 Blood Pressure 1: 136/92 Code: 8480-6 BMI: 41.2 Code: 21025-0 Heart Rate 1: 80 bpm Height: 6' Respiratory Rate: 20 bpm Temperature: 36.6 (C ) / 97.8 (F) Weight: 304 lbs 08/28/2012 Blood Pressure 1: 126/80 Code: 8480-6 BMI: 41.8 Code: 32193-6 Heart Rate 1: 80 bpm Height: 6' Respiratory Rate: 20 bpm Temperature: 36.4 (C ) / 97.6 (F) Weight: 308 lbs 07/03/2012 Blood Pressure 1: 114/80 Code: 8480-6 BMI: 42.3 Code: 21502-0 Heart Rate 1: 72 bpm Height: 6' Respiratory Rate: 20 bpm Temperature: 36.6 (C ) / 97.9 (F) Weight: 312 lbs 06/21/2012 Blood Pressure 1: 152/100 Code: 8480-6 BMI: 43.3 Code: 33132-4 Heart Rate 1: 72 bpm Height: 6' Temperature: 36.8 (C ) / 98.2 (F) Weight: 319 lbs 05/30/2012 Blood Pressure 1: 122/78 Code: 8480-6 BMI: 43.0 Code: 97807-9 Heart Rate 1: 72 bpm Height: 6' Respiratory Rate: 20 bpm Temperature: 36.7 (C ) / 98.0 (F) Weight: 317 lbs 05/21/2012 Blood Pressure 1: 126/94 Code: 8480-6 BMI: 44.2 Code: 75625-0 Heart Rate 1: 92 bpm Height: 6' Respiratory Rate: 20 bpm Temperature: 36.6 (C ) / 97.9 (F) Weight: 326 lbs 01/24/2012 Blood Pressure 1: 122/90 Code: 8480-6 BMI: 44.5 Code: 31928-8 Heart Rate 1: 76 bpm Height: 6' Respiratory Rate: 20 bpm Temperature: 36.8 (C ) / 98.2 (F) Weight: 328 lbs 09/21/2011 Blood Pressure 1: 116/80 Code: 8480-6 BMI: 44.1 Code: 24466-3 Heart Rate 1: 92 bpm Height: 6' Respiratory Rate: 20 bpm Temperature: 36.7 (C ) / 98.1 (F) Weight: 325 lbs 09/12/2011 Blood Pressure 1: 166/110 Code: 8480-6 BMI: 45.0 Code: 21703-6 Heart Rate 1: 80 bpm Height: 6' Respiratory Rate: 20 bpm Temperature: 36.5 (C ) / 97.7 (F) Weight: 332 lbs 06/14/2011 Blood Pressure 1: 142/84 Code: 8480-6 BMI: 45.6 Code: 05101-7 Heart Rate 1: 104 bpm Height: 6' Respiratory Rate: 20 bpm Temperature: 36.4 (C ) / 97.5 (F) Weight: 336 lbs 03/03/2011 Blood Pressure 1: 130/96 Code: 8480-6 Heart Rate 1: 86 bpm Temperature: 36.1 (C) / 97.0 (F) Weight: 327 lbs 01/27/2011 Blood Pressure 1: 142/96 Code: 8480-6 BMI: 42.0 Code: 67716-4 Heart Rate 1: 72 bpm Height: 6'2" [...] 11/27/2012 in elbow--seen in Urgent care in [place] and started on abx cellulitis Onset and [...] and Resolution ongoing 06/21/[facility]'t have [facility] mellitus Blood glucose [...] Encounters Encounter Performer Loca tion Codes Date ([id number]) OFFICE/OUTPA TIENT VISIT EST Diagnosis: Essential (primary) hypertension[ICD10: I10] Diagnosis: 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, 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] Diagnosis: Kidney transplant status[ICD10: Z94.0] Diagnosis: Chronic kidney disease, stage 3 (moderate)[ICD10: N18.3] Diagnosis: Mixed hyperlipidemia[ICD10: E78.2] Galina ASENCIO [facility] [employer] CPT-4: 11676 02/26/2019 ([id number]) NURSE/OUTPAT IENT VISIT EST Diagnosis: 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, 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] Diagnosis: Essential (primary) hypertension[ICD10: I10] Diagnosis: Other specified hypothyroidism[ICD10: E03.8] Diagnosis: Mixed hyperlipidemia[ICD10: E78.2] Galina Chance [employer] CPT-4: 46751 02/19/2019 ([id number]) NURSE/OUTPAT IENT VISIT EST Diagnosis: Kidney transplant status[ICD10: Z94.0] 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] 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[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: Z79.899] Diagnosis: Encounter for aftercare following other organ transplant[ICD10: Z48.298] Diagnosis: Mixed hyperlipidemia[ICD10: E78.2] Galina Chance [facility] [employer] CPT-4: 46664 08/24/2018 ([id number]) NURSE/OUTPAT IENT VISIT EST Diagnosis: Type 2 diabetes mellitus with diabetic neuropathy, unspecified[ICD10: E11.40] Diagnosis: Type 2 diabetes mellitus with hyperglycemia[ICD10: E11.65] 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] Diagnosis: Essential (primary) hypertension[ICD10: I10] Galina ARTEAGA [employer] CPT-4: 58674 06/29/2018 ([id number]) OFFICE/OUTPA TIENT VISIT EST Diagnosis: Slow transit constipation[ICD10: K59.01] Diagnosis: Epigastric pain[ICD10: R10.13] Diagnosis: Type 2 diabetes mellitus with hyperglycemia[ICD10: E11.65] Coleen SMITH [employer] CPT-4: 88570 06/26/2018 ([id number]) OFFICE/OUTPA TIENT VISIT EST Diagnosis: Right lower quadrant pain[ICD10: R10.31] Diagnosis: Type 2 diabetes mellitus with diabetic neuropathy, unspecified[ICD10: E11.40] Coleen SMITH [employer] CPT-4: 67472 02/06/2018 ([id number]) OFFICE/OUTPA TIENT VISIT EST Diagnosis: Type 2 diabetes mellitus with hyperglycemia[ICD10: E11.65] Diagnosis: Mixed hyperlipidemia[ICD10: E78.2] Diagnosis: Essential (primary) hypertension[ICD10: I10] Coleen CHENEY [employer] CPT-4: 63722 11/02/2017 ([id number]) PREV VISIT E ST AGE 18-39 Diagnosis: Encounter for general adult medical examination with abnormal findings[ICD10: Z00.01] Diagnosis: Abrasion of right hand, initial encounter[ICD10: S60.511A] 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 CPT-4: 81188 06/20/2016 ([id number]) OFFICE/OUTPA TIENT VISIT EST Diagnosis: Urinary tract infection, site not specified[ICD10: N39.0] Missy SMITH [facility] CPT-4: 10778 02/16/2016 ([id number]) OFFICE/OUTPA TIENT VISIT EST Diagnosis: Type 2 diabetes mellitus with hyperglycemia[ICD10: E11.65] Diagnosis: Cramp and spasm[ICD10: R25.2] Diagnosis: Hematuria, unspecified[ICD10: R31.9] Galina ARTEAGA [facility] CPT-4: 54174 12/03/2015 OFFICE/OUTPATIENT SIT EST Diagnosis: Type 2 diabetes mellitus with diabetic neuropathy, unspecified[ICD10: E11.40] Alejandra Billy GALINA SMITH [facility] CPT-4: 21566 06/24/2015 ([id number]) OFFICE/OUTPA TIENT VISIT EST Diagnosis: Acute sinusitis, unspecified[ICD10: J01.90] Diagnosis: Otitis media, unspecified, bilateral[ICD10: H66.93] Galina ROD [facility] CPT-4: 07951 06/11/2015 ([id number]) OFFICE/OUTPA TIENT VISIT EST Diagnosis: 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[ICD9: 250.01] Diagnosis: HYPERTENSION[ICD9: 401.9] Diagnosis: HYPERLIPIDEMIA NEC/NOS[ICD9: 272.4] Diagnosis: KIDNEY TRANSPLANT STATUS[ICD9: V42.0] [facility] CPT-4: 10111 07/17/2014 ([id number]) OFFICE/OUTPA TIENT VISIT EST Diagnosis: 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[ICD9: 250.01] Diagnosis: HYPERTENSION[ICD9: 401.9] Galina SMITH [facility] CPT-4: 41131 10/31/2013 ([id number]) OFFICE/OUTPA TIENT VISIT EST Diagnosis: 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I[ICD9: 250.00] Diagnosis: HYPERTENSION[ICD9: 401.9] Diagnosis: HYPERLIPIDEMIA NEC/NOS[ICD9: 272.4] [facility] CPT-4: 95657 08/01/2013 OFFICE/OUTPATIENT SIT EST Diagnosis: HEMATURIA NOS[ICD9: 599.70] Diagnosis: Abdominal pain, acute, right lower quadrant[ICD9: 789.03] Diagnosis: KIDNEY TRANSPLANT STATUS[ICD9: V42.0] Alejandra GuptaMargaritashannan GALINA Meron O [facility] CPT-4: 20931 07/30/2013 ([id number]) OFFICE/OUTPA TIENT VISIT EST Diagnosis: Uncontrolled hypertension[ICD9: 401.9] Diagnosis: BRIEF DEPRESSIVE REACT[ICD9: 309.0] Galina Luis MEJIALINE SusuKarol [facility] CPT-4: 06265 05/30/2013 ([id number]) OFFICE/OUTPA TIENT VISIT EST Diagnosis: HYPERTENSION[ICD9: 401.9] Diagnosis: Anticipatory grieving[ICD9: 309.0] Galina Luis GALINA SusuKarol [facility] CPT-4: 73950 04/29/2013 ([id number]) OFFICE/OUTPA TIENT VISIT EST Diagnosis: 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I, UNCONTROLLED[ICD9: 250.02] Diagnosis: HYPERTENSION[ICD9: 401.9] Diagnosis: HYPOTHYROIDISM[ICD9: 244.9] Diagnosis: KIDNEY TRANSPLANT STATUS[ICD9: V42.0] Galina Rodranjanatorri GALINA [facility]Karol [facility] CPT-4: 16960 02/27/2013 OFFICE/OUTPATIENT SIT EST Diagnosis: Paronychia[ICD9: 681.9] Diagnosis: ONYCHOMYCOSIS[ICD9: 110.1] Viky ASENCIO [facility] CPT-4: 95494 01/01/2013 ([id number]) OFFICE/OUTPA TIENT VISIT EST Diagnosis: 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I, UNCONTROLLED[ICD9: 250.02] Diagnosis: HYPERLIPIDEMIA NEC/NOS[ICD9: 272.4] Diagnosis: HYPERTENSION[ICD9: 401.9] Diagnosis: KIDNEY TRANSPLANT STATUS[ICD9: V42.0] Diagnosis: HYPOTHYROIDISM[ICD9: 244.9] Galina SMITH [facility] CPT-4: 63162 11/27/2012 ([id number]) OFFICE/OUTPA TIENT VISIT EST Diagnosis: 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I[ICD9: 250.00] Diagnosis: HYPOTHYROIDISM[ICD9: 244.9] Diagnosis: HYPERLIPIDEMIA NEC/NOS[ICD9: 272.4] Diagnosis: HYPERTENSION[ICD9: 401.9] Galina SMITH [facility] CPT-4: 82195 08/28/2012 ([id number]) OFFICE/OUTPA TIENT VISIT EST Diagnosis: HYPOTHYROIDISM[ICD9: 244.9] Diagnosis: 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I, UNCONTROLLED[ICD9: 250.02] Diagnosis: HYPERLIPIDEMIA NEC/NOS[ICD9: 272.4] Diagnosis: KIDNEY TRANSPLANT STATUS[ICD9: V42.0] Diagnosis: HYPERTENSION[ICD9: 401.9] Galina SMITH [facility] CPT-4: 74950 08/20/2012 OFFICE/OUTPATIENT SIT EST Diagnosis: 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I, UNCONTROLLED[ICD9: 250.02] Diagnosis: HYPERTENSION[ICD9: 401.9] Galina SMITH [facility] CPT-4: 65777 07/03/2012 OFFICE/OUTPATIENT SIT EST Diagnosis: 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I, UNCONTROLLED[ICD9: 250.02] Diagnosis: HYPERTENSION[ICD9: 401.9] Galina SMITH [facility] CPT-4: 28111 06/21/2012 OFFICE/OUTPATIENT SIT EST Diagnosis: 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I, UNCONTROLLED[ICD9: 250.02] Diagnosis: HYPERTENSION[ICD9: 401.9] Diagnosis: HYPERLIPIDEMIA NEC/NOS[ICD9: 272.4] Diagnosis: KIDNEY TRANSPLANT STATUS[ICD9: V42.0] Galina ARTEAGA [employer] [facility] CPT-4: 58223 05/30/2012 ([id number]) OFFICE/OUTPA TIENT VISIT EST Diagnosis: HYPERTENSION[ICD9: 401.9] Diagnosis: VISUAL DISTURBANCE[ICD9: 368.9] Galina SMITH DO [facility] CPT-4: 28043 05/21/2012 ([id number]) OFFICE/OUTPA TIENT VISIT EST Diagnosis: HYPERTENSION[ICD9: 401.9] Diagnosis: HYPOTHYROIDISM[ICD9: 244.9] Diagnosis: KIDNEY TRANSPLANT STATUS[ICD9: V42.0] Galina ARTEAGA [facility] CPT-4: 55905 01/24/2012 OFFICE/OUTPATIENT SIT EST Diagnosis: DIZZINESS/VERTIGO[ICD9: 780.4] Diagnosis: HYPERTENSION[ICD9: 401.9] Galina SMITH [facility] CPT-4: 16928 09/21/2011 ([id number]) OFFICE/OUTPA TIENT VISIT EST Diagnosis: HYPERTENSION[ICD9: 401.9] Diagnosis: HYPOTHYROIDISM[ICD9: 244.9] Diagnosis: HYPERLIPIDEMIA NEC/NOS[ICD9: 272.4] Diagnosis: KIDNEY TRANSPLANT STATUS[ICD9: V42.0] Galina [facility] CPT-4: 68814 09/12/2011 OFFICE/OUTPATIENT SIT EST Diagnosis: HYPOTHYROIDISM[ICD9: 244.9] Diagnosis: HYPERTENSION[ICD9: 401.9] Diagnosis: CEPHALGIA[ICD9: 784.0] Galina SMITH [facility] CPT-4: 46156 06/14/2011 OFFICE/OUTPATIENT SIT EST Diagnosis: HYPERTENSION[ICD9: 401.9] Diagnosis: PHARYNGITIS, ACUTE[ICD9: 462] Diagnosis: HYPOTHYROIDISM[ICD9: 244.9] Galina SMITH [facility] CPT-4: 61095 03/03/2011 OFFICE/OUTPATIENT SIT EST Diagnosis: HYPOTHYROIDISM[ICD9: 244.9] Diagnosis: KIDNEY TRANSPLANT STATUS[ICD9: V42.0] Diagnosis: HYPERTENSION[ICD9: 401.9] Diagnosis: SINUSITIS, ACUTE[ICD9: 461.9] Galina SMITH [facility] CPT-4: 17552 01/27/2011 ([id number]) OFFICE/OUTPA TIENT VISIT EST [facility]ina [facility] CPT-4: 09377 12/02/2010 Plan of Care Planned Activity Notes C odes Status Date Visit Diagnosis Plan: Essential (primary) hypertension Discussion: Noncompliant Start amlodopine 5mg daily ICD-9 : 401.9 ICD-10 : I10 02/26/2019 Visit Diagnosis Plan: Mixed hyperlipidemia Discussion: Start atorvastatin 80mg daily ICD-9 : 272.4 ICD-10 : E78.2 02/26/2019 Visit Diagnosis Plan: DM W/O COMPLICATIO N TYPE I, UNCONTROLLED Discussion: Check HbA1C ICD-9 : 250.03 ICD-10 : E10.9 02/26/2019 Patient Education: atorvastatin- [employer] Coupon [phone] [email or web address] Completed 02/26/2019 Appointment: Galina Smith WPtel: [address] [place] [address] LAB 02/19/2019 Appointment: Coleen Frey [address] [place] [address] had 2 flat tires this morning. NO SHOW - FORGIVEN 02/19/2019 Appointment: Galina Smith WPtel: [address] [place] [address] LAB 08/24/2018 Appointment: Galina Smith WPtel: [address] [place] [address] LAB 06/29/2018 Visit Diagnosis Plan: Epigastric pain [...] he had labs done in dec at [facility]. will obtain lab results and order additional labs as needed. ICD-9 : 250.02 ICD-10 : E11.65 06/26/2018 Appointment: Coleen Frey [address] [facility] ACUTE ILLNESS 06/26/2018 Visit Diagnosis Plan: Right [...] ICD-10 : E11.40 02/06/2018 Appointment: Coleen Frey [address] [facility] ACUTE ILLNESS 02/06/2018 Patient Education: Patient [...] : I10 11/02/2017 Appointment: Coleen Frey [address] [facility] FOLLOW UP 11/02/2017 Patient Education: Patient Medication [...] E11.59 07/27/2017 Visit Diagnosis Plan: Encounter for [facility] adult medical examination with abnormal findings Discussion: patient deferred influenza vaccine at this time, received tdap shot. routine labs performed earlier today so will obtain results from [facility]. ICD-9 : V70.0 ICD-10 : Z00.01 07/27/2017 Appointment: Coleen Frey [address] [place], [place] [id number] Annual Well Visit 07/27/2017 Patient Education: Patient [...] ICD-10 : B35.3 04/05/2017 Appointment: Coleen Frey [address] [place], [place] [phone] FOLLOW UP 04/05/2017 Patient Education: Patient Medication Summary Completed 04/05/2017 Patient Education: Patient Medication Summary Completed 04/05/2017 Care Plan: CBC Pending 04/05/2017 Care Plan: LIPID PANEL LOINC : 75944-9 Pending 04/05/2017 Care Plan: COMPREHEN METABOLIC PANEL LOINC : 12041-8 Pending 04/05/2017 Visit Plan: Patient admits that [...] given 06/20/2016 Appointment: Galina Smith [facility]el[phone] [id number] 06/16 lm-sp 06/20 lm ~sl FOLLOW UP 06/20/2016 Patient Education: Patient Medication Summary Completed 06/20/2016 Patient Education: Patient Medication Summary Completed 05/04/2016 Care Plan: COMPREHEN METABOLIC PANEL LOINC : 08938-1 Pending 05/04/2016 Care Plan: CBC Pending 05/04/2016 Care Plan: LIPID PANEL LOINC : 60548-0 Pending 05/04/2016 Care Plan: A1C HPLC LO INC : 01511-9 Pending 05/04/2016 Visit Plan: Discussed with Dr Norwood er Treatment as above while awaiting specialist to return his call Push fluids Follow up celine if not improving 02/16/2016 Visit Plan: Discussed with Dr Norwood er Treatment as above while awaiting specialist to return his call Push fluids Follow up celine if not improving 02/16/2016 Appointment: Missy Dc [phone] [id number] ACUTE ILLNESS 02/16/2016 Patient Education: Patient Medication [...] as well 12/03/2015 Appointment: Galina Smith WPtel: [phone] [id number] [place] 12/03/2015 Patient Education: Patient Medication [...] is improved. 06/24/2015 Appointment: Alejandra Billy WPtel: [address] [place] [address] ACUTE ILLNESS 06/24/2015 Patient Education: Patient Medication Summary Completed 06/24/2015 Patient Education: Lyrica - 18+ - No MA NE Completed 06/24/2015 Visit Plan: Saline nasal flushes pr n. Tylenol/Motrin prn headache. Notify if persists/symptoms worsening. Obtain most recent lab Warned of increased BS with prednisone--has sliding scale to use 06/11/2015 Appointment: Galina Smith WPtel: [address] [place] [address] 06/10/15 cn....06/10/15 appt confirmjeremy sylvester cn Annual Well Visit 05/14 Patient Education: Patient Medication Summary Completed 06/11/2015 Appointment: Galina Smith WPtel: [address] [place], [place] [phone] FOLLOW UP 10/15/2014 Patient Education: Patient Medication Summary Completed 09/03/2014 Care Plan: COMPREHEN METABOLIC PANEL LOINC : 07227-7 Ordered 09/03/2014 Visit Plan: Obtain most recent lab results Will likely need HbA1C and Lipids if were not done Accuchecks q AC and HS 07/17/2014 Appointment: Galina Smith WPtel: [address] [place], [place] [address] US FOLLOW UP 07/17/2014 Patient Education: Patient Medication Summary Completed 07/17/2014 Appointment: Galina Smith WPtel: [address] [place], [place] [address] 01/29 vm 01/30 NO SHOW FOLLOW UP 01/30/2014 Visit Plan: Check CMP, HbA1C, CBC, Lipids Pt sees transplant doctor next month Pt is currently just using insulin prn and monitering BS 10/31/2013 Appointment: Galina Smith WPtel: [address] [place], [place] [phone] FOLLOW UP 10/31/2013 Patient Education: Patient Medication Summary Completed 10/31/2013 Visit Plan: Continue current meds a nd acuchecks 08/01/2013 Appointment: Galina Smith WPtel: [address] [place], [place] [phone] 07/31 FOLLOW UP 08/01/2013 Patient Education: Patient Medication Summary Completed 08/01/2013 Visit Plan: CBC, CMP, CRP To [facility] abdomen/Pelvis w/o contrast 07/30/2013 Appointment: Alejandra Billy WPtel: [address] [place] [address] ACUTE ILLNESS 07/30/2013 Patient Education: Patient Medication Summary Completed 07/30/2013 Visit Plan: Restart Ken--pt says needs PA Continue fluoxetine at 20mg daily 05/30/2013 Appointment: Galina Smith WPtel: [address] [place], [place] [phone] FOLLOW UP 05/30/2013 Patient Education: Patient Medication Summary Completed 05/30/2013 Appointment: Galina Smith WPtel: [address] [place], [place] [phone] [place] has appt following day FOLLOW UP 05/29/2013 Visit Plan: Restart Ken and Amlo dopine as has been out--new rx sent out Trial of Fluoxetine 20mg q AM Stress Reducers 04/29/2013 Appointment: Galina Smith WPtel: [address] [place], [place] [phone] 04/26 MOM made appt. confirmed monday ACUTE ILLNESS 04/29/2013 Patient Education: Patient Medication Summary Completed 04/29/2013 Visit Plan: Continue current meds a nd accuchecks Pt going for fasting lab next month 02/27/2013 Appointment: Galina Smith WPtel: [address] [place] [address] FOLLOW UP 02/27/2013 Patient Education: Patient Medication Summary Completed 02/27/2013 Appointment: Viky Acosta WPtel: [address] [place] [address] ACUTE ILLNESS 01/01/2013 Patient Education: Patient Medication Summary Completed 01/01/2013 Visit Plan: Continue current meds C heck fasting lab next week 11/27/2012 Appointment: Galina Smith WPtel: [address] [place] [address] FOLLOW UP 11/27/2012 Patient Education: Patient Medication Summary Completed 11/27/2012 Visit Plan: Lab discussed Continue current meds and accuchecks Pt sees transplant doctor in in October Check fasting lab and fwup in 3mos 08/28/2012 Appointment: Galina Smith WPtel: [address] [place] [address] 08/27 FOLLOW UP 08/28/2012 Patient Education: Patient Medication Summary Completed 08/28/2012 Appointment: Galina Smith WPtel: [address] [place], [place] [phone] 08/20/2012 Patient Education: Patient Medication Summary Completed 08/20/2012 Visit Plan: Continue levemir at cur rent dose with accuchecks Use apidra with sliding scale Check Chem 7 and HbA1C in 2mos 07/03/2012 Appointment: Galina Smith WPtel: [address] [place], [place] [phone] 07/02 FOLLOW UP 07/03/2012 Patient Education: Patient [...] 320mg daily 06/21/2012 Appointment: Galina Smith WPtel: [address] [place] [address] ACUTE ILLNESS 06/21/2012 Patient Education: Patient Medication Summary Completed 06/21/2012 Visit Plan: Increase Levemir to 75 u sc q PM Continue sliding scale insulin with accuchecks q AC and HS Call in 1wk with BS readings 05/30/2012 Appointment: Galina Smith WPtel: [address] [place] [address] Hospital Follow Up 05/30/2012 Patient Education: Patient Medication Summary Completed 05/30/2012 Appointment: Galina Smtih WPtel: [address] [place] [address] 05/21 - cancelled appointment for 05/22 because PT was worked in on 05/21 FOLLOW UP 05/22/2012 Visit Plan: Obtain lab done last mo from [facility] See optometry for dilated eye exam and eye pressures today May need CT head pending results of eye evaluation 05/21/2012 Appointment: Galina Smith WPtel: [address] [place] [address] WORK IN 05/21/2012 Appointment: Galina Smith WPtel: [address] [place] [address] US LAB 05/21/2012 Patient Education: Patient Medication [...] Free T4 01/24/2012 Appointment: Galina Smith WPtel: [address] [place] [address] voicemail FOLLOW UP 01/24/2012 Patient Education: Patient Medication Summary Completed 01/24/2012 Visit Plan: Decrease Norvasc to 2.5 mg daily Check CBC, CMP, TSH, Free T4 09/21/2011 Appointment: Galina Smith WPtel: [address] [place] [address] ACUTE ILLNESS 09/21/2011 Patient Education: Patient Medication Summary Completed 09/21/2011 Visit Plan: Continue Diovan at curr ent dose Add amlodopine Check Lipids/LFTs with next lab 09/12/2011 Appointment: Galina Smith WPtel: [address] [place] [address] FOLLOW UP 09/12/2011 Patient Education: Patient Medication Summary Completed 09/12/2011 Visit Plan: Increase Diovan to 320m g po daily Check TSH and Free T4 with kidney lab next week 06/14/2011 Appointment: Galina Smith WPtel: [address] [place] [address] FOLLOW UP 06/14/2011 Patient Education: Patient Medication Summary Completed 06/14/2011 Visit Plan: Z-pack then new tootheb ivory Start Diovan 03/03/2011 Appointment: Galina Smith WPtel: [address] [place] [address] ACUTE ILLNESS 03/03/2011 Patient Education: Patient Medication Summary Completed 03/03/2011 Visit Plan: Check TSH, Free T4 toda y Pt will moniter BP at home See if treatment of sinuses helps headaches 01/27/2011 Appointment: Galina Smith WPtel: [address] [place] [address] FOLLOW UP 01/27/2011 Patient Education: Patient Medication Summary Completed 01/27/2011 Visit Plan: Continue current meds a nd proceed with lab per kidney transplant doctor Start Synthroid at 50mcg po daily 12/02/2010 Appointment: [id number] FOLLOW UP 12/02/2010 Patient Education: Patient Medication Summary Completed 12/02/2010 Appointment: Galina Smith WPtel: [id number] US Suture Removal 10/20/2009 Patient Education: Patient [...] BS . [facility] helps headaches . CBC, CMP, CRP [facility] abdomen/Pelvis w/o contrast . Saline [...] . Labs completed thi s am in [facility] but do not have results yet. Start Lyrica 75mg PO bid Will Call in a week and let know if pain is improved. . Labs completed thi s am in [facility] but do not have results yet. Start Lyrica 75mg PO bid Will Call in a week and let know if pain is improved. . Restart Diovan and Amlodopine as has been out--new rx sent out Trial of Fluoxetine 20mg q AM Stress Reducers
--- OUTSIDE RECORDS SUMMARY | 2019-08-21 00:21 | XMS REPORT | CCD ---
Author Author Cuauhtemoc Smith D.O. Organization [facility] Address [address] [place] [address] Phone Care Team Providers Care Pressure Test Operator Name Role Phone Galina Smith D.O., PP Unavailable CCM Unavailable Summary Purpose Interface Exchange Insurance Providers Payer name Policy type / Coverage type Covered alliance party ID Effective Begin Date Effective End Date Blue Cross Blue Shield Blue Cross/Bl ue Shield [id number] 2017 Un known Family History Family History data not found Social History Social History Element Codes Description Effective Dates Tobacco history SNOMED CT: 634382552 Currently uses smokeless tobacco 06/14/2011 Allergies, Adverse [...] V58.44 ICD-10: Z48.298 Active 08/24/2018 Unknown Other superintendent terminal (cur rent) drug therapy ICD-9: V58.69 ICD-10: [...] ICD-9: V58.44 ICD-10: Z48.298 08/24/2018 Active Other superintendent terminal (cur rent) drug therapy ICD-9: V58.69 ICD-10: [...] Fill Instructions amlodipine 5 mg tablet RxNorm: 396878 1 Tablet(s) PO QD for BP 02/26/2019 08/24/2019 Active atorvastatin 80 mg t ablet RxNorm: 094844 1 Tablet(s) PO QD 02/26/2019 05/26/2019 Active Novolog Flexpen U-10 0 Insulin aspart 100 unit/mL (3 mL) subcutaneous RxNorm: 8128349 INJECT SUBCUTANEOUSLY NEEDED PER SLIDING SCALE 02/22/2019 No Stop Date Active Levemir FlexTouch U- 100 Insulin 100 unit/mL (3 mL) subcutaneous pen RxNorm: 068507 90 Unit(s) SQ BID 01/08/2019 04/07/2019 Active Levemir FlexTouch U- 100 Insulin 100 unit/mL (3 mL) subcutaneous pen RxNorm: 361544 90 Unit(s) SQ BID 12/04/2018 12/03/2018 Inactive Levemir FlexTouch U- 100 Insulin 100 unit/mL (3 mL) subcutaneous pen RxNorm: 816431 90 Unit(s) SQ BID 12/04/2018 01/07/2019 Inactive Levemir FlexTouch U- 100 Insulin 100 unit/mL (3 mL) subcutaneous pen RxNorm: 958647 70 Unit(s) SQ BID 10/26/2018 12/04/2018 Inactive Levemir FlexTouch U- 100 Insulin 100 unit/mL (3 mL) subcutaneous pen RxNorm: 072521 GIVE 90 UNITS SUBCUTANEOUSLY TWICE DAILY 10/08/2018 10/26/2018 Inactive Levemir FlexTouch U- 100 Insulin 100 unit/mL (3 mL) subcutaneous pen RxNorm: 654254 90 Unit(s) SQ BID 07/30/2018 10/07/2018 Inactive Levemir FlexTouch U- 100 Insulin 100 unit/mL (3 mL) subcutaneous pen RxNorm: 908130 90 Unit(s) SQ BID 07/06/2018 07/29/2018 Inactive Pen Needle 31 gauge x 5/16" RxNorm: USE DIRECTED 03/21/2018 No Stop Date Active Levemir FlexTouch U- 100 Insulin 100 unit/mL (3 mL) subcutaneous pen RxNorm: 657943 80 Unit(s) SQ BID 02/15/2018 07/06/2018 Inactive Levemir FlexTouch U- 100 Insulin 100 unit/mL (3 mL) subcutaneous pen RxNorm: 578169 INJECT 105 UNITS SUBCUTANEOUSLY IN THE EVENING 01/24/2018 02/15/2018 Inactive Levemir FlexTouch U- 100 Insulin 100 unit/mL (3 mL) subcutaneous pen RxNorm: 086313 INJECT 105 UNITS SUBCUTANEOUSLY IN THE EVENING 12/26/2017 01/23/2018 Inactive Novolog Flexpen U-10 0 Insulin aspart 100 unit/mL (3 mL) subcutaneous RxNorm: 6481745 INJECT SUBCUTANEOUSLY NEEDED PER SLIDING SCALE 12/25/2017 02/21/2019 Inactive Levemir FlexTouch U- 100 Insulin 100 unit/mL (3 mL) subcutaneous pen RxNorm: 101012 70 Unit(s) SQ BID 11/03/2017 11/03/2017 Inactive Levemir FlexTouch U- 100 Insulin 100 unit/mL (3 mL) subcutaneous pen RxNorm: 977112 105 Unit(s) SQ QPM 11/02/2017 11/02/2017 Inactive Levemir FlexTouch U- 100 Insulin 100 unit/mL (3 mL) subcutaneous pen RxNorm: 873714 105 Unit(s) SQ QPM Needs updated labs 11/01/2017 11/01/2017 Inactive Levemir FlexTouch U- 100 Insulin 100 unit/mL (3 mL) subcutaneous pen RxNorm: 391981 Unit(s) 105 Unit(s) SQ QPM 09/18/2017 09/18/2017 Inactive Levemir FlexTouch U- 100 Insulin 100 unit/mL (3 mL) subcutaneous pen RxNorm: 720571 105 Unit(s) SQ QPM 08/07/2017 09/18/2017 Inactive cephalexin 500 mg ca psule RxNorm: 249976 1 Capsule(s) PO BID 07/27/2017 08/02/2017 Inactive Levemir FlexTouch U- 100 Insulin 100 unit/mL (3 mL) subcutaneous pen RxNorm: 799195 105 Unit(s) SQ QPM 06/07/2017 06/07/2017 Inactive Levemir FlexTouch 10 0 unit/mL (3 mL) subcutaneous insulin pen RxNorm: 841980 105 Unit(s) SQ QPM 05/11/2017 06/07/2017 Inactive Lipitor 40 mg tablet RxNorm: 744662 1 Tablet(s) PO QD 04/05/2017 04/04/2017 Inactive nystatin 100,000 uni t/gram topical ointment RxNorm: 872776 1 Gram(s) TOP BID 04/05/2017 05/02/2017 In active Lipitor 40 mg tablet RxNorm: 508069 1.5 Tablet(s) PO QD 04/05/2017 02/25/2019 Inactive Diovan 320 mg tablet RxNorm: 288162 1 Tablet(s) PO QD 04/05/2017 02/25/2019 Inactive Levemir FlexTouch 10 0 unit/mL (3 mL) subcutaneous insulin pen RxNorm: 536579 105 Unit(s) SQ QPM 04/05/2017 04/05/2017 Inactive Levemir FlexTouch 10 0 unit/mL (3 mL) subcutaneous insulin pen RxNorm: 835931 90 Unit(s) SQ QPM LAST REFILL UNTIL LABS AND APPOINTMENT!!!! 04/05/2017 05/11/2017 Inactive Novolog Flexpen 100 unit/mL subcutaneous RxNorm: 3956743 Unit(s) INJECT SUBCU TANEOUSLY NEEDED PER SLIDING SCALE---NEEDS UPDATED LABS 03/07/2017 12/03/2018 Inactive Levemir FlexTouch 10 0 unit/mL (3 mL) subcutaneous insulin pen RxNorm: 028544 90 Unit(s) SQ QPM LAST REFILL UNTIL LABS AND APPOINTMENT!!!! 02/17/2017 03/18/2017 Inactive Levemir FlexTouch 10 0 unit/mL (3 mL) subcutaneous insulin pen RxNorm: 458474 90 Unit(s) SQ QPM NEEDS FASTING LABS AND APPOINTMENT BEFORE FURTHER REFILLS 12/22/2016 02/17/2017 In active Novolog Flexpen U-10 0 Insulin aspart 100 unit/mL subcutaneous RxNorm: 4329397 Unit(s) INJECT SUBCUTANEOUSLY NEEDED PER SLIDING SCALE---NEEDS UPDATED LABS 11/28/2016 03/07/2017 Inactive Levemir FlexTouch 10 0 unit/mL (3 mL) subcutaneous insulin pen RxNorm: 657703 90 Unit(s) VAG QPM 11/08/2016 12/22/2016 Inactive Levemir FlexTouch 10 0 unit/mL (3 mL) subcutaneous insulin pen RxNorm: 543304 90 Unit(s) VAG QPM 11/08/2016 12/21/2016 Inactive Levemir FlexTouch 10 0 unit/mL (3 mL) subcutaneous insulin pen RxNorm: 395862 80 Unit(s) VAG QPM 09/05/2016 11/08/2016 Inactive Levemir FlexTouch 10 0 unit/mL (3 mL) subcutaneous insulin pen RxNorm: 030023 85 Unit(s) SQ QD 07/22/2016 09/05/2016 Inactive Levemir FlexTouch 10 0 unit/mL (3 mL) subcutaneous insulin pen RxNorm: 002056 85 Unit(s) SQ QD 07/04/2016 07/21/2016 Inactive Levemir FlexTouch 10 0 unit/mL (3 mL) subcutaneous insulin pen RxNorm: 316429 85 Unit(s) SQ QD 06/14/2016 06/19/2016 Inactive Levemir FlexTouch 10 0 unit/mL (3 mL) subcutaneous insulin pen RxNorm: 555703 85 Unit(s) SQ QD 05/03/2016 05/22/2016 Inactive Levemir FlexTouch 10 0 unit/mL (3 mL) subcutaneous insulin pen RxNorm: 609242 85 Unit(s) SQ QD 05/03/2016 05/02/2016 Inactive Levemir FlexTouch 10 0 unit/mL (3 mL) subcutaneous insulin pen RxNorm: 472520 85 Unit(s) SQ QD 03/14/2016 04/22/2016 Inactive cefuroxime axetil 25 0 mg tablet RxNorm: 223427 1 Tablet(s) PO BID 02/16/2016 02/25/2016 Inactive Levemir FlexTouch 10 0 unit/mL (3 mL) subcutaneous insulin pen RxNorm: 306052 85 Unit(s) SQ QD 02/03/2016 03/13/2016 Inactive Levemir FlexTouch 10 0 unit/mL (3 mL) subcutaneous insulin pen RxNorm: 497981 85 Unit(s) SQ QD 12/07/2015 02/02/2016 Inactive Pen Needle 31 gauge x 5/16" RxNorm: USE DIRECTED 11/19/2015 05/16/2016 Inactive Levemir FlexTouch 10 0 unit/mL (3 mL) subcutaneous insulin pen RxNorm: 099958 INJECT 75 UNITS SUBCUTANEOUSLY ONCE DAILY; NEED LABS AND APPT 10/06/2015 12/04/2015 Inactive Novolog Flexpen 100 unit/mL subcutaneous RxNorm: 3132770 INJECT SUBCUTANEOUSL Y NEEDED PER SLIDING SCALE 09/15/2015 11/28/2016 Inactive Levemir FlexTouch 10 0 unit/mL (3 mL) subcutaneous insulin pen RxNorm: 949116 75 Unit(s) SQ QD Needs lab and appointment 07/13/2015 10/05/2015 Inactive Lyrica 75 mg capsule RxNorm: 011809 1 Capsule(s) PO BID 06/24/2015 07/23/2015 Inactive Levemir FlexTouch 10 0 unit/mL (3 mL) subcutaneous insulin pen RxNorm: 833783 75 Unit(s) SQ QD Needs lab and appointment 06/23/2015 07/12/2015 Inactive Novolog Flexpen 100 unit/mL subcutaneous RxNorm: 2962713 Unit(s) SQ as needed Sliding scale 06/15/2015 09/14/2015 Inactive Flonase Allergy Reli ef 50 mcg/actuation nasal spray,suspension RxNorm: 2 [place] NASAL QHS 06/11/2015 12/02/2015 Inactive prednisone 20 mg tablet RxNorm: 960891 1 Tablet(s) PO TID for 3 days then 1 po BID for 3 days then one daily for 3 days 06/11/2015 12/02/2015 Inactive cefdinir 300 mg capsule RxNorm: 064997 2 Capsule(s) PO QD 06/11/2015 06/24/2015 Inactive Levemir FlexTouch 10 0 unit/mL (3 mL) subcutaneous insulin pen RxNorm: 084373 75 Unit(s) SQ QD Needs lab and appointment 05/29/2015 06/22/2015 Inactive Novolog 100 unit/mL subcutaneous solution RxNorm: 584899 Unit(s) SQ Inject as directed using sliding scale B 05/29/2015 12/03/2018 Inactive Levemir Flexpen 100 unit/mL (3 mL) solution subcutaneous insulin pen RxNorm: 850414 INJECT 75 UNITS SUBCUTANEOUSLY EVERY DAY 05/11/2015 05/29/2015 Inactive Levemir FlexTouch 10 0 unit/mL (3 mL) subcutaneous insulin pen RxNorm: 006630 75 Unit(s) SQ QHS 03/30/2015 12/03/2018 Inactive Levemir FlexTouch 10 0 unit/mL (3 mL) subcutaneous insulin pen RxNorm: 669766 75 Unit(s) SQ QHS 03/09/2015 03/29/2015 Inactive Contour Test Strips RxNorm: Miscellaneous 01/27/2015 No Stop Date Active Novolog 100 unit/mL subcutaneous solution RxNorm: 950377 Unit(s) SQ Inject as directed using sliding scale B 01/27/2015 05/29/2015 Inactive Levemir Flexpen 100 unit/mL (3 mL) solution subcutaneous insulin pen RxNorm: 607451 INJECT 75 UNITS SUBCUTANEOUSLY EVERY DAY 11/05/2014 03/09/2015 Inactive Levemir Flexpen 100 unit/mL (3 mL) solution subcutaneous insulin pen RxNorm: 320853 INJECT 75 UNITS SUBCUTANEOUSLY EVERY DAY 08/13/2014 10/31/2014 Inactive Novolog 100 unit/mL subcutaneous solution RxNorm: 865710 Unit(s) SQ Inject as directed using sliding scale B 07/15/2014 01/26/2015 Inactive Apidra SoloStar 100 unit/mL subcutaneous insulin pen RxNorm: 804783 Unit(s) SQ INJECT DIRECTED USING SLIDING SCALE B 07/11/2014 07/14/2014 Inactive Diovan 320 mg tablet RxNorm: 655081 1 Tablet(s) PO QD 06/10/2014 06/04/2015 Inactive Apidra SoloStar 100 unit/mL subcutaneous insulin pen RxNorm: 852546 Unit(s) SQ INJECT DIRECTED USING SLIDING SCALE B 04/18/2014 07/10/2014 Inactive Levemir Flexpen 100 unit/mL (3 mL) solution subcutaneous insulin pen RxNorm: 552263 Unit(s) SQ INJECT 75 UNITS SUBCUTANEOUSLY EVERY DAY 02/28/2014 02/27/2014 Inactive [SAVINGS FOR UNINSURED PATIENTS -- BIN:[id number], PCN: [id number], Group: [facility], ID# [id number], Process claim through [employer], for questions: . THIS IS NOT INSURANCE.] Apidra SoloStar 100 unit/mL subcutaneous insulin pen RxNorm: 846833 Unit(s) SQ INJECT DIRECTED USING SLIDING SCALE B 09/05/2013 04/17/2014 Inactive Pen Needle 31 gauge x 5/16" RxNorm: Miscellaneous USE DIRECT ED WITH LEVEMIR AND APIDRA 08/23/2013 11/18/2015 Inactive Prograf 1 mg capsule RxNorm: 620916 2 Capsule(s) PO BID Generic OK to fill 08/21/2013 No Stop Date Active Diovan 320 mg tablet RxNorm: 816362 1 Tablet(s) PO QD 05/30/2013 05/24/2014 Inactive fluoxetine 20 mg tablet RxNorm: 749871 1 Tablet(s) PO QAM 05/30/2013 07/31/2013 Inactive fluoxetine 20 mg tablet RxNorm: 535048 1 Tablet(s) PO QAM 04/29/2013 05/29/2013 Inactive amlodipine 5 mg tablet RxNorm: 977415 1 Tablet(s) PO QD 04/29/2013 02/25/2019 Inactive ketoconazole 2 % top ical cream RxNorm: 272373 Application TOP BID f or 2-4wks 04/29/2013 05/12/2013 In active Diovan 320 mg tablet RxNorm: 630797 1 Tablet(s) PO QD 04/29/2013 06/10/2014 Inactive Apidra SoloStar 100 unit/mL subcutaneous insulin pen RxNorm: 315839 Unit(s) SQ Sliding Scale B 02/19/2013 09/05/2013 Inactive Levemir Flexpen 100 unit/mL (3 mL) solution subcutaneous insulin pen RxNorm: 363401 Insulin Pen SQ INJECT 75 UNITS SUBCUTANEOUSLY EVERY DA Y 01/21/2013 02/28/2014 Inactive Septra DS 800 mg-160 mg tablet RxNorm: 774941 1 Tablet(s) PO BID an tibiotic 01/01/2013 01/07/2013 In active ketoconazole 2 % top ical cream RxNorm: 703988 1 Application TOP BID 01/01/2013 01/14/2013 Inactive Levemir Flexpen 100 unit/mL (3 mL) Sub-Q Insulin Pen RxNorm: 723041 Unit(s) SQ INJECT 75 UNITS SUB-Q ONCE A DAY 12/07/2012 No Stop Date Active Levemir Flexpen 100 unit/mL (3 mL) Sub-Q Insulin Pen RxNorm: 680524 Unit(s) SQ INJECT 75 UNITS SUB-Q ONCE A DAY 10/22/2012 12/07/2012 Inactive Levemir Flexpen 100 unit/mL (3 mL) Sub-Q Insulin Pen RxNorm: 438660 75 Unit(s) SQ QHS 08/20/2012 10/22/2012 Inactive Diovan 320 mg tablet RxNorm: 958510 1 Tablet(s) PO QD 07/30/2012 04/28/2013 Inactive Levemir Flexpen 100 unit/mL (3 mL) Sub-Q Insulin Pen RxNorm: 874620 Insulin Pen SQ INJECT 75 UNITS SUB-Q ONCE A DAY 07/30/2012 10/21/2012 Inactive Levemir Flexpen 100 unit/mL (3 mL) Sub-Q Insulin Pen RxNorm: 834497 75 Unit(s) SQ QHS 07/30/2012 08/19/2012 Inactive Levemir Flexpen 100 unit/mL (3 mL) Sub-Q Insulin Pen RxNorm: 218256 75 Unit(s) SQ QHS 07/30/2012 07/29/2012 Inactive Diovan 320 mg tablet RxNorm: 496105 1 Tablet(s) PO QD 06/21/2012 06/20/2012 Inactive Diovan 320 mg tablet RxNorm: 936273 1 Tablet(s) PO QD 06/21/2012 06/20/2012 Inactive Diovan 320 mg tablet RxNorm: 463957 1 Tablet(s) PO QD 06/21/2012 07/29/2012 Inactive CellCept 250 mg capsule RxNorm: 363707 4 Capsule(s) PO BID 06/14/2012 06/20/2012 Inactive Prograf 1 mg capsule RxNorm: 032878 2 Capsule(s) PO BID Generic OK to fill 06/14/2012 06/20/2012 In active Apidra SoloStar 100 unit/mL Sub-Q Insulin Pen RxNorm: 514894 Unit(s) SQ Sliding Sc supriya B 06/13/2012 12/03/2018 Inactive Levemir Flexpen 100 unit/mL (3 mL) Sub-Q Insulin Pen RxNorm: 989187 75 Unit(s) SQ QD 06/13/2012 No Stop Date Active Apidra SoloStar 100 unit/mL Sub-Q Insulin Pen RxNorm: 509355 Unit(s) SQ Sliding Sc supriya B 06/13/2012 No Stop Date Active One Touch Delica Adeel cets RxNorm: Miscellaneous 0 06/13/2012 04/04/2017 Inactive Lipitor 40 mg tablet RxNorm: 901519 1 Tablet(s) PO QD 05/30/2012 08/27/2012 Inactive Diovan 320 mg tablet RxNorm: 301774 1 Tablet(s) PO QD 05/30/2012 06/20/2012 Inactive Tricor 145 mg tablet RxNorm: 785937 1 Tablet(s) PO QD 05/30/2012 08/27/2012 Inactive Lipitor 20 mg Tab RxNorm: 187334 1 Tablet(s) PO QD 09/12/2011 05/29/2012 Inactive Synthroid 50 mcg Tab RxNorm: 428644 1 Tablet(s) PO QD 09/12/2011 12/02/2015 Inactive Diovan 320 mg tablet RxNorm: 619886 1 Tablet(s) PO QD 09/12/2011 03/09/2012 Inactive amlodipine 5 mg tablet RxNorm: 049208 1 Tablet(s) PO QD 09/12/2011 03/09/2012 Inactive Diovan 320 mg Tab RxNorm: 180240 1 Tablet(s) PO QD 06/14/2011 09/11/2011 Inactive Diovan 160 mg Tab RxNorm: 330822 1 Tablet(s) PO QD 03/03/2011 06/13/2011 Inactive cefdinir 300 mg Cap RxNorm: 262817 2 Capsule(s) PO QD 01/27/2011 02/05/2011 Inactive Synthroid 50 mcg Tab RxNorm: 212508 1 Tablet(s) PO QD 12/02/2010 01/30/2011 Inactive Multivitamin & [place] al Formula Tab RxNorm: 1 Tablet(s) PO QD No Start Date Active Miralax 17 gram/dose oral powder RxNorm: 754963 PO BID in 6-8 ounces of water No Start Date Active Tylenol Extra Streng th 500 mg tablet RxNorm: 943150 Tablet(s) PO as neede d No Start Date Active pantoprazole 40 mg t ablet,delayed release RxNorm: 696658 1 Tablet(s) PO QD No Start Date Active Tricor Oral RxNorm: Oral No Start Date 05/29 Inactive MagOx 400 mg tablet RxNorm: 733899 1 Tablet(s) PO QD No Start Date 06/19/2016 Inactive sodium bicarbonate Oral RxNorm: Oral No Start Date 06/19/2016 Inactive Fish Oil 1,000 mg ca psule RxNorm: 1 Capsule(s) PO QD No Start Date 04/04/2017 Inactive Novofine Misc RxNorm: Miscellaneous No Start Date 06/12/2012 Inactive Percocet 5 mg-325 mg tablet RxNorm: 3658678 Tablet(s) PO as need ed Dr Parson No Start Date 04/04/2017 Inactive Contour Test Strips RxNorm: miscellaneous No Start Date 01/26/2015 Inactive Prograf 1 mg capsule RxNorm: 645709 2 Capsule(s) PO BID No Start Date 06/13/2012 Inactive Zantac 150 mg Tab RxNorm: 866925 Tablet(s) PO PRN No Start Date 12/02/2015 Inactive Levemir FlexTouch 10 0 unit/mL (3 mL) subcutaneous insulin pen RxNorm: 398564 75 Unit(s) SQ QHS No Start Date 03/08/2015 Inactive CellCept 250 mg capsule RxNorm: 323429 4 Capsule(s) PO BID No Start Date 06/13/2012 Inactive Novolog 100 unit/mL subcutaneous solution RxNorm: 246250 Unit(s) SQ Inject as directed using sliding scale B No Start Date 07/14/2014 Inactive Novolog Flexpen 100 unit/mL subcutaneous RxNorm: 2275613 Unit(s) SQ as needed Sliding scale No Start Date 06/14/2015 Inactive Apidra SoloStar 100 unit/mL Sub-Q Insulin Pen RxNorm: 065049 Unit(s) SQ Sliding Sc supriya B No Start Date 06/12/2012 Inactive Levemir FlexTouch U- 100 Insulin 100 unit/mL (3 mL) subcutaneous pen RxNorm: 786745 70 Unit(s) SQ BID No Start Date 02/06/2018 Inactive Pen Needle 31 X 5/16" RxNorm: Miscellaneous No Start Date 08/23/2013 Inactive Synthroid 50 mcg Tab RxNorm: 965439 1 Tablet(s) PO QD No Start Date 09/11/2011 Inactive Levemir Flexpen 100 unit/mL (3 mL) Sub-Q Insulin Pen RxNorm: 945324 70 Unit(s) SQ QHS No Start Date 07/29/2012 Inactive Levemir FlexTouch U- 100 Insulin 100 unit/mL (3 mL) subcutaneous pen RxNorm: 616807 80 Unit(s) SQ BID No Start Date 02/14/2018 Inactive Levemir FlexTouch 10 0 unit/mL (3 mL) subcutaneous insulin pen RxNorm: 821295 80 Unit(s) SQ QPM No Start Date 09/04/2016 Inactive Lipitor 40 mg tablet RxNorm: 256382 1 Tablet(s) PO QD No Start Date 04/04/2017 Inactive Ultram 50 mg tablet RxNorm: 286096 2 Tablet(s) PO TID as needed for pain No Start Date 06/10/2015 Inactive Prograf 1 mg Cap RxNorm: 507047 2 Capsule(s) PO BID No Start Date 05/20/2012 Inactive insulin needles (dis posable) 32 x 5/16" RxNorm: Miscellaneous for use with flex pen No Start Date 04/04/2017 Inactive Levemir FlexTouch U- 100 Insulin 100 unit/mL (3 mL) subcutaneous pen RxNorm: 904953 90 Unit(s) SQ BID No Start Date 07/05/2018 Inactive Levemir Flexpen 100 unit/mL (3 mL) Sub-Q Insulin Pen RxNorm: 392891 65 Unit(s) SQ QD No Start Date 06/12/2012 Inactive Zithromax Z-Mateus 250 mg Tab RxNorm: 585926 Tablet(s) PO No Start Date 06/13/2011 Inactive as directed Lipitor 20 mg Tab RxNorm: 172280 1 Tablet(s) PO QD No Start Date [...] ICD- 10: Z48.298 ICD-9: V58.44 08/24/2018 Other half-way (current) drug therapy ICD-10: Z79.899 ICD-9: V58.69 [...] Code Item Item Code Result Date MAGNESIUM 22950 MAGNESIUM 1.4 mEq/L 02/19/2019 GFR CALC 1788278 GFR Non Afr Amr 37 mL/min 02/19/2019 GFR CALC 2530123 GFR Afr Amr 45 mL/min 02/19/2019 LIPID GROUP 09959 Choles terol 250 mg/dL 02/19/2019 LIPID GROUP 18118 Trigly ceride 465 mg/dL 02/19/2019 LIPID GROUP 25728 HDL CH OLESTEROL 30 mg/dL 02/19/2019 LIPID GROUP 18233 Chol/H DL Ratio 8.33 ratio 02/19/2019 LIPID GROUP 99432 NON-HD L Chol 220 mg/dL 02/19/2019 LIPID GROUP 32296 LDL Ch olesterol N/A Trig >400 019 LIPID GROUP 74398 Fasting Unknown 02/19/2019 COMPREHENSIVE METABOLIC 32865 AST 20 U/L 02/19/2019 COMPREHENSIVE METABOLIC 27545 ALT 30 U/L 02/19/2019 COMPREHENSIVE METABOLIC 98694 BUN 27 mg/dL 02/19/2019 COMPREHENSIVE METABOLIC 78295 ALBUMIN 3.7 g/dL 02/19/2019 COMPREHENSIVE METABOLIC 74739 CHLORIDE 105 mmol/L 02/19/2019 COMPREHENSIVE METABOLIC 19508 Bili Total 0.5 mg/dL 02/19/2019 COMPREHENSIVE METABOLIC 59679 ALK PHOS 79 U/L 02/19/2019 COMPREHENSIVE METABOLIC 60202 SODIUM 137 mmol/L 02/19/2019 COMPREHENSIVE METABOLIC 45723 CREATININE 2.10 mg/dL 02/19/2019 COMPREHENSIVE METABOLIC 17670 CALCIUM 9.5 mg/dL 02/19/2019 COMPREHENSIVE METABOLIC 86474 POTASSIUM 4.2 mmol/L 02/19/2019 COMPREHENSIVE METABOLIC 23294 Total Protein 6.5 g/dL 02/19/2019 COMPREHENSIVE METABOLIC 48220 Glucose 202 mg/dL 02/19/2019 COMPREHENSIVE METABOLIC 02242 Bicarbonate 22 mmol/L 02/19/2019 COMPREHENSIVE METABOLIC 57587 AGAP 10 mmol/L 02/19/2019 LIPID GROUP 65937 Choles terol 320 mg/dL 08/27/2018 LIPID GROUP 12845 Trigly ceride 444 mg/dL 08/27/2018 LIPID GROUP 06720 HDL CH OLESTEROL 39 mg/dL 08/27/2018 LIPID GROUP 93485 Chol/H DL Ratio 8.21 ratio 08/27/2018 LIPID GROUP 75541 NON-HD L Chol 281 mg/dL 08/27/2018 LIPID GROUP 32329 LDL Ch olesterol N/A Trig >400 019 LIPID GROUP 86830 Fasting Unknown 08/27/2018 PHOSPHORUS 6185920 PHOSP HORUS 2.1 mg/dL 08/24/2018 PROTEIN/CREAT URINE WITH RATIO 82005|86079 U Protein 515 mg/dL 08/24/2018 PROTEIN/CREAT URINE WITH RATIO 46417|74443 U Creatinine 116 mg/dL 08/24/2018 PROTEIN/CREAT URINE WITH RATIO 15134|80908 Prot:Creat Rat 4440 mg/g 08/24/2018 MAGNESIUM 93593 MAGNESIUM 1.4 mEq/L 08/24/2018 GFR CALC 4625543 GFR Non Afr Amr 44 mL/min 08/24/2018 GFR CALC 7432432 GFR Afr Amr 53 mL/min 08/24/2018 [place] [address] Glucose TNP:Unknown Cancel Reason 08/24/2018 [place] [address] CREATININE TNP:Unknown Cancel Reason 08/24/2018 [place] [address] BUN TNP:Unknown Cancel Reason 08/24/2018 [place] [address] SODIUM TNP:Unknown Cancel Reason 08/24/2018 [place] [address] POTASSIUM TNP:Unknown Cancel Reason 08/24/2018 [place] [address] CHLORIDE TNP:Unknown Cancel Reason 08/24/2018 [place] [address] Bicarbonate TNP:Unknown Cancel Reason 08/24/2018 [place] [address] AGAP TNP:Unknown Cancel Reason 08/24/2018 [place] [address] CALCIUM TNP:Unknown Cancel Reason 08/24/2018 COMPREHENSIVE METABOLIC 64700 AST 21 U/L 08/24/2018 COMPREHENSIVE METABOLIC 92192 ALT 35 U/L 08/24/2018 COMPREHENSIVE METABOLIC 45583 BUN 25 mg/dL 08/24/2018 COMPREHENSIVE METABOLIC 78419 ALBUMIN 4.5 g/dL 08/24/2018 COMPREHENSIVE METABOLIC 76196 CHLORIDE 106 mmol/L 08/24/2018 COMPREHENSIVE METABOLIC 43345 Bili Total 0.4 mg/dL 08/24/2018 COMPREHENSIVE METABOLIC 42761 ALK PHOS 64 U/L 08/24/2018 COMPREHENSIVE METABOLIC 63943 SODIUM 141 mmol/L 08/24/2018 COMPREHENSIVE METABOLIC 52409 CREATININE 1.81 mg/dL 08/24/2018 COMPREHENSIVE METABOLIC 19583 CALCIUM 10.3 mg/dL 08/24/2018 COMPREHENSIVE METABOLIC 45717 POTASSIUM 3.4 mmol/L 08/24/2018 COMPREHENSIVE METABOLIC 82106 Total Protein 7.2 g/dL 08/24/2018 COMPREHENSIVE METABOLIC 01539 Glucose 101 mg/dL 08/24/2018 COMPREHENSIVE METABOLIC 77808 Bicarbonate 23 mmol/L 08/24/2018 COMPREHENSIVE METABOLIC 21918 AGAP 12 mmol/L 08/24/2018 UA W/MICR 09207 UA Urine Appear Normal 08/24/2018 UA W/MICR 21861 UA Prote in 3+ 08/24/2018 UA W/MICR 55138 UA Hemog lobin Trace 08/24/2018 UA W/MICR 20922 UA Gluco se 3+ 08/24/2018 UA W/MICR 19977 UA [place] es Negative 08/24/2018 UA W/MICR 21135 UA pH 6.0 08/24/2018 UA W/MICR 45675 U Spec G ravity 1.025 08/24/2018 UA W/MICR 63648 UA Bilir ubin Negative 08/24/2018 UA W/MICR 26559 UA Leuk Esteras Negative 08/24/2018 UA W/MICR 64532 UA Nitri te NEG 08/24/2018 UA W/MICR 30395 UA WBC/h pf 1 08/24/2018 UA W/MICR 91396 UA RBC a uto 12.9 /uL 08/24/2018 UA W/MICR 67888 UA RBC h pf 2 08/24/2018 UA W/MICR 78457 UA WBC a uto 5.9 /uL 08/24/2018 UA W/MICR 49880 UA SQ EP I auto 5.2 /uL 08/24/2018 UA W/MICR 78483 UA H Jamil t auto 0.10 /uL 08/24/2018 PROGRAF 7843839 Prograf 7.3 ng/mL 08/24/2018 MICROALBUMIN URINE RANDOM 96854 U Microalbumin 3485.2 mg/L 08/24/2018 MICROALBUMIN URINE RANDOM 66833 U Creatinine 116 mg/dL 08/24/2018 MICROALBUMIN URINE RANDOM 62378 ALB/CR Ratio 3004.5 mg/gCR 08/25/19 19 GLYCOSYLATED HEMOGLOBIN TEST 36046 Hgb A1c 88056-9 13.3 % 9 MEAN GLUC Calc M sherron Gluc 335 mg/dL 06/29/2018 COMPREHENSIVE METABOLIC 30801 AST 17 U/L 02/06/2018 COMPREHENSIVE METABOLIC 68625 ALT 24 U/L 02/06/2018 COMPREHENSIVE METABOLIC 58807 BUN 24 mg/dL 02/06/2018 COMPREHENSIVE METABOLIC 01494 ALBUMIN 3.9 g/dL 02/06/2018 COMPREHENSIVE METABOLIC 76368 CHLORIDE 108 mmol/L 02/06/2018 COMPREHENSIVE METABOLIC 12771 Bili Total 0.6 mg/dL 02/06/2018 COMPREHENSIVE METABOLIC 84061 ALK PHOS 67 U/L 02/06/2018 COMPREHENSIVE METABOLIC 54276 SODIUM 140 mmol/L 02/06/2018 COMPREHENSIVE METABOLIC 21372 CREATININE 1.75 mg/dL 02/06/2018 COMPREHENSIVE METABOLIC 42285 CALCIUM 9.6 mg/dL 02/06/2018 COMPREHENSIVE METABOLIC 53540 POTASSIUM 3.8 mmol/L 02/06/2018 COMPREHENSIVE METABOLIC 77492 Total Protein 7.1 g/dL 02/06/2018 COMPREHENSIVE METABOLIC 24695 Glucose 62 mg/dL 02/06/2018 COMPREHENSIVE METABOLIC 52106 Bicarbonate 23 mmol/L 02/06/2018 COMPREHENSIVE METABOLIC 70177 AGAP 9 mmol/L 02/06/2018 GLYCOSYLATED HEMOGLOBIN TEST 98846 Hgb A1c 26587-3 13.0 % 8 GFR CALC 5448532 GFR Non Afr Amr 46 mL/min 02/06/2018 GFR CALC 9820225 GFR Afr Amr 55 mL/min 02/06/2018 MICROALBUMIN URINE RANDOM 73181 U Microalbumin 669.0 mg/L 02/06/2018 MICROALBUMIN URINE RANDOM 42581 U Creatinine 92 mg/dL 02/06/2018 MICROALBUMIN URINE RANDOM 32898 ALB/CR Ratio 727.2 mg/gCR 8 MEAN GLUC Calc M sherron Gluc 326 mg/dL 02/06/2018 GLYCOSYLATED HEMOGLOBIN TEST 52569 Hgb A1c 05622-1 14.3 % 6 THYROID STIMULATING HORMONE 86757 TSH 1.909 uIU/mL 6 MAGNESIUM 21743 MAGNESIUM 1.5 mEq/L 12/03/2015 GFR CALC 1398965 GFR Non Afr Amr 39 mL/min 12/03/2015 GFR CALC 9244482 GFR Afr Amr 48 mL/min 12/03/2015 MEAN GLUC 4334608 Mean G lucose 364 mg/dL 12/03/2015 COMPREHENSIVE METABOLIC 49557 AST 34 U/L 12/03/2015 COMPREHENSIVE METABOLIC 34183 ALT 78 U/L 12/03/2015 COMPREHENSIVE METABOLIC 76690 BUN 29 mg/dL 12/03/2015 COMPREHENSIVE METABOLIC 21985 ALBUMIN 4.3 g/dL 12/03/2015 COMPREHENSIVE METABOLIC 68135 CHLORIDE 93 mmol/L 12/03/2015 COMPREHENSIVE METABOLIC 06645 Bili Total 0.7 mg/dL 12/03/2015 COMPREHENSIVE METABOLIC 85786 ALK PHOS 83 U/L 12/03/2015 COMPREHENSIVE METABOLIC 41354 SODIUM 125 mmol/L 12/03/2015 COMPREHENSIVE METABOLIC 70992 CREATININE 2.01 mg/dL 12/03/2015 COMPREHENSIVE METABOLIC 81313 CALCIUM 9.8 mg/dL 12/03/2015 COMPREHENSIVE METABOLIC 99443 POTASSIUM 4.3 mmol/L 12/03/2015 COMPREHENSIVE METABOLIC 13264 Total Protein 7.3 g/dL 12/03/2015 COMPREHENSIVE METABOLIC 94993 Glucose 542 mg/dL 12/03/2015 COMPREHENSIVE METABOLIC 11287 Bicarbonate 23 mmol/L 12/03/2015 COMPREHENSIVE METABOLIC 42994 AGAP 9 mmol/L 12/03/2015 COMPREHENSIVE METABOLIC 09188 AST 31 U/L 07/30/2013 COMPREHENSIVE METABOLIC 07792 ALT 52 IU/L 07/30/2013 COMPREHENSIVE METABOLIC 43349 BUN 26 MG/DL 07/30/2013 COMPREHENSIVE METABOLIC 60016 ALBUMIN 4.9 GM/DL 07/30/2013 COMPREHENSIVE METABOLIC 50099 CHLORIDE 108 MMOL/L 07/30/2013 COMPREHENSIVE METABOLIC 55776 BILI TOT 0.4 MG/DL 07/30/2013 COMPREHENSIVE METABOLIC 96889 ALK PHOS 68 U/L 07/30/2013 COMPREHENSIVE METABOLIC 34612 SODIUM 138 MMOL/L 07/30/2013 COMPREHENSIVE METABOLIC 56463 CREATININE 2.02 MG/DL 07/30/2013 COMPREHENSIVE METABOLIC 50412 CALCIUM 10.3 MG/DL 07/30/2013 COMPREHENSIVE METABOLIC 16526 POTASSIUM 5.0 MMOL/L 07/30/2013 COMPREHENSIVE METABOLIC 28468 PROT TOT 7.3 GM/DL 07/30/2013 COMPREHENSIVE METABOLIC 22854 Glucose 89 MG/DL 07/30/2013 COMPREHENSIVE METABOLIC 52512 BICARB 24 MMOL/L 07/30/2013 COMPREHENSIVE METABOLIC 22847 ANION GAP 6 MEQ/L 07/30/2013 GFR CALC 9229443 GFR AA 48.0L ML/MIN 07/30/2013 GFR CALC 6715244 GFR NON -AA 40.0L ML/MIN 4 COMPLETE BLOOD COUNT 4293424 WBC 7.9 10e9/L 07/30/2013 COMPLETE BLOOD COUNT 8158295 RBC 4.94 10e12/L 4 COMPLETE BLOOD COUNT 3304488 HGB 14.0 g/dL 07/30/2013 COMPLETE BLOOD COUNT 0588603 HCT DET 41.5 % 07/30/2013 COMPLETE BLOOD COUNT 0856238 MCV 84.0 fL 07/30/2013 COMPLETE BLOOD COUNT 4581042 MCH 28.3 pg 07/30/2013 COMPLETE BLOOD COUNT 5706166 MCHC 33.7 g/dL 07/30/2013 COMPLETE BLOOD COUNT 8291785 PLT 176 10e9/L 07/30/2013 COMPLETE BLOOD COUNT 6632544 MPV 11.8 fL 07/30/2013 COMPLETE BLOOD COUNT 3797672 CLAYTON % 75.4 % 07/30/2013 COMPLETE BLOOD COUNT 2614244 LY % 13.7 % 07/30/2013 COMPLETE BLOOD COUNT 5099275 MON % 8.9 % 07/30/2013 COMPLETE BLOOD COUNT 3505039 EOS % 1.7 % 07/30/2013 COMPLETE BLOOD COUNT 1644064 BASO % 0.3 % 07/30/2013 COMPLETE BLOOD COUNT 4936642 RDW 13.4 % 07/30/2013 COMPLETE BLOOD COUNT 4722940 ABS CLAYTON 5.96 10e9/L 07/30/2013 COMPLETE BLOOD COUNT 1180241 ABS LYMPH 1.08 10e9/L 07/30/2013 COMPLETE BLOOD COUNT 6218295 ABS MONO 0.70 10e9/L 07/30/2013 COMPLETE BLOOD COUNT 9173699 ABS EOS 0.13 10e9/L 07/30/2013 COMPLETE BLOOD COUNT 3439947 ABS BASO 0.02 10e9/L 07/30/2013 COMPLETE BLOOD COUNT 4084288 RDW-SD 40.2 fL 07/30/2013 C-REACTIVE PROTEIN (CRP) QUANT 12258 CRP 0.2 MG/DL 07/30/2013 CANCEL 4671206 CANCEL FOOTNOTE 05/23/2012 PEND CHEM PEND C HEM FOOTNOTE 05/22/2012 COMPREHENSIVE METABOLIC 41966 AST 61 U/L 05/21/2012 COMPREHENSIVE METABOLIC 08264 ALT 106 U/L 05/21/2012 COMPREHENSIVE METABOLIC 83937 BUN 33 MG/DL 05/21/2012 COMPREHENSIVE METABOLIC 90057 ALBUMIN 5.0 GM/DL 05/21/2012 COMPREHENSIVE METABOLIC 20061 CHLORIDE 89 MMOL/L 05/21/2012 COMPREHENSIVE METABOLIC 74849 BILI TOT 0.6 MG/DL 05/21/2012 COMPREHENSIVE METABOLIC 84923 ALK PHOS 129 U/L 05/21/2012 COMPREHENSIVE METABOLIC 89505 SODIUM 120 MMOL/L 05/21/2012 COMPREHENSIVE METABOLIC 67638 CREATININE 2.23 MG/DL 05/21/2012 COMPREHENSIVE METABOLIC 42400 CALCIUM 9.8 MG/DL 05/21/2012 COMPREHENSIVE METABOLIC 66751 POTASSIUM 5.3 MMOL/L 05/21/2012 COMPREHENSIVE METABOLIC 89665 PROT TOT 7.8 GM/DL 05/21/2012 COMPREHENSIVE METABOLIC 95870 Glucose 789 MG/DL 05/21/2012 COMPREHENSIVE METABOLIC 69780 BICARB 20 MMOL/L 05/21/2012 COMPREHENSIVE METABOLIC 09031 ANION GAP 11 MMOL/L 05/21/2012 GFR CALC 8568422 GFR AA 43.0L ML/MIN 05/21/2012 GFR CALC 8614796 GFR NON -AA 36.0L ML/MIN 2 THYROID STIMULATING HORMONE 05561 TSH 1.499 uIU/ML 1 FREE T4 75267 FREE T4 1.15 NG/DL 01/27/2011 Review of [...] Procedures Procedure Codes Date ROUTINE VENIPUNCTURE CPT-4: 62890 02/19/2019 METABOLIC PANEL TOTA L CA CPT-4: 08485 02/19/2019 MICROALBUMIN, QUANTI TATIVE CPT-4: 36845 02/19/2019 LIPID PANEL CPT-4: 58182 02/19/2019 COMPREHEN METABOLIC PANEL CPT-4: 29354 02/19/2019 ASSAY OF MAGNESIUM CPT- 4: 94408 02/19/2019 METABOLIC PANEL TOTA L CA CPT-4: 24767 08/24/2018 COMPREHEN METABOLIC PANEL CPT-4: 24556 08/24/2018 ASSAY OF MAGNESIUM CPT- 4: 15230 08/24/2018 MICROALBUMIN QUANTIT ATIVE CPT-4: 71738 08/24/2018 PROTEIN/CREAT URINE WITH RATIO CPT-4: 28120|62034 08/24/2018 PHOSPHORUS CPT-4: 0011195 08/24/2018 LIPID PANEL CPT-4: 89084 08/24/2018 ROUTINE VENIPUNCTURE CPT-4: 98816 06/29/2018 A1C HPLC CPT-4: 98283 06/29/2018 URINALYSIS NONAUTO W /O SCOPE CPT-4: 04489 02/06/2018 URINE CULTURE/ COLON Y COUNT CPT-4: 51791 02/06/2018 MICROALBUMIN QUANTIT ATIVE CPT-4: 64715 02/06/2018 ROUTINE VENIPUNCTURE CPT-4: 81823 02/06/2018 COMPREHEN METABOLIC PANEL CPT-4: 94072 02/06/2018 A1C HPLC CPT-4: 88999 02/06/2018 ROUTINE VENIPUNCTURE CPT-4: 24580 11/02/2017 COMPREHEN METABOLIC PANEL CPT-4: 02460 11/02/2017 A1C HPLC CPT-4: 79734 11/02/2017 TDAP VACCINE 7 YRS/> IM CPT-4: 38611 07/27/2017 IMMUNIZATION ADMIN CPT- 4: 90148 07/27/2017 URINALYSIS NONAUTO W /O SCOPE CPT-4: 50561 02/16/2016 URINE CULTURE/ COLON Y COUNT CPT-4: 89481 02/16/2016 PRESCRIP TRANSMIT A ERX SY CPT-4: G8553 02/16/2016 ROUTINE VENIPUNCTURE CPT-4: 99407 12/03/2015 ASSAY THYROID STIM H ORMONE CPT-4: 64130 12/03/2015 COMPREHEN METABOLIC PANEL CPT-4: 83991 12/03/2015 A1C HPLC CPT-4: 24887 12/03/2015 ASSAY OF MAGNESIUM CPT- 4: 79974 12/03/2015 URINALYSIS NONAUTO W /O SCOPE CPT-4: 33428 12/03/2015 URINE CULTURE/ COLON Y COUNT CPT-4: 24606 12/03/2015 URINALYSIS NONAUTO W /O SCOPE CPT-4: 76433 07/30/2013 URINE CULTURE/ COLON Y COUNT CPT-4: 00651 07/30/2013 ROUTINE VENIPUNCTURE CPT-4: 31479 07/30/2013 COMPLETE CBC W/AUTO DIFF WBC CPT-4: 90854 07/30/2013 COMPREHEN METABOLIC PANEL CPT-4: 29483 07/30/2013 C-REACTIVE PROTEIN CPT- 4: 98921 07/30/2013 ROUTINE VENIPUNCTURE CPT-4: 55835 08/20/2012 ASSAY OF FREE THYROXINE CPT-4: 18995 08/20/2012 ASSAY THYROID STIM H ORMONE CPT-4: 38379 08/20/2012 COMPREHEN METABOLIC PANEL CPT-4: 24750 08/20/2012 COMPLETE CBC W/AUTO DIFF WBC CPT-4: 24914 08/20/2012 LIPID PANEL CPT-4: 29714 08/20/2012 A1C GLYCOSYLATED HEM OGLOBIN TEST CPT-4: 36831 08/20/2012 ASSAY, GLUCOSE, BLOO D QUANT CPT-4: 67315 06/21/2012 ASSAY, GLUCOSE, BLOO D QUANT CPT-4: 68628 05/21/2012 ROUTINE VENIPUNCTURE CPT-4: 07175 05/21/2012 COMPREHEN METABOLIC PANEL CPT-4: 24063 05/21/2012 A1C GLYCOSYLATED HEM OGLOBIN TEST CPT-4: 60074 05/21/2012 CURRENT [employer] US[employer] CPT-4: G8456 06/14/2011 PT VIS DOC USE EHR C ER ATCB CPT-4: G8447 06/14/2011 PRESCRIP TRANSMIT A ERX SY CPT-4: G8553 06/14/2011 PT VIS DOC USE EHR C ER ATCB CPT-4: G8447 03/03/2011 PRESCRIP TRANSMIT A ERX SY CPT-4: G8553 03/03/2011 ROUTINE VENIPUNCTURE CPT-4: 46335 01/27/2011 ASSAY OF FREE THYROXINE CPT-4: 68206 01/27/2011 ASSAY THYROID STIM H ORMONE CPT-4: 59427 01/27/2011 PT VIS DOC USE EHR C [...] 1: 158/90 Code: 8480-6 BMI: 34.3 Code: 74620-3 Heart Rate 1: 78 bpm Height: 6'1" Respiratory Rate: 20 bpm SpO2: 98% Temperature: 36.6 (C ) / 97.8 (F) Weight: 260 lbs 11/02/2017 Blood Pressure 1: 134/92 Code: 8480-6 BMI: 32.3 Code: 40912-1 Heart Rate 1: 72 bpm Height: 6'1" SpO2: 98% Temperature: 36.4 (C ) / 97.5 (F) Weight: 245 lbs 07/27/2017 Blood Pressure 1: 136/64 Code: 8480-6 BMI: 30.9 Code: 36240-1 Heart Rate 1: 78 bpm Height: 6'1" Respiratory Rate: 22 bpm SpO2: 98% Temperature: 36.4 (C ) / 97.6 (F) Weight: 234 lbs 04/05/2017 Blood Pressure 1: 126/90 Code: 8480-6 BMI: 33.5 Code: 41498-5 Heart Rate 1: 76 bpm Height: 6'1" Respiratory Rate: 20 bpm SpO2: 97% Temperature: 37.0 (C ) / 98.6 (F) Weight: 254 lbs 06/20/2016 Blood Pressure 1: 122/74 Code: 8480-6 BMI: 35.2 Code: 74115-3 Heart Rate 1: 80 bpm Height: 6'1" Respiratory Rate: 20 bpm SpO2: 97% Temperature: 36.9 (C ) / 98.5 (F) Weight: 267 lbs 02/16/2016 Blood Pressure 1: 136/82 Code: 8480-6 BMI: 36.4 Code: 47954-1 Heart Rate 1: 66 bpm Height: 6'1" Respiratory Rate: 18 bpm SpO2: 96% Temperature: 36.4 (C ) / 97.6 (F) Weight: 276 lbs 12/03/2015 Blood Pressure 1: 122/86 Code: 8480-6 BMI: 39.2 Code: 21457-4 Heart Rate 1: 76 bpm Height: 6' Respiratory Rate: 20 bpm Temperature: 37.1 (C ) / 98.7 (F) Weight: 289 lbs 06/24/2015 Blood Pressure 1: 136/84 Code: 8480-6 BMI: 40.7 Code: 43032-6 Heart Rate 1: 84 bpm Height: 6' Respiratory Rate: 20 bpm Temperature: 36.9 (C ) / 98.4 (F) Weight: 300 lbs 06/11/2015 Blood Pressure 1: 160/82 Code: 8480-6 BMI: 40.4 Code: 94754-9 Heart Rate 1: 82 bpm Height: 6' Respiratory Rate: 22 bpm Temperature: 36.5 (C ) / 97.7 (F) Weight: 298 lbs 07/17/2014 Blood Pressure 1: 132/84 Code: 8480-6 BMI: 41.0 Code: 83327-6 Heart Rate 1: 76 bpm Height: 6'1" Respiratory Rate: 20 bpm Temperature: 36.9 (C ) / 98.4 (F) Weight: 311 lbs 10/31/2013 Blood Pressure 1: 132/80 Code: 8480-6 BMI: 41.2 Code: 03298-2 Heart Rate 1: 84 bpm Height: 6'1" Respiratory Rate: 22 bpm Temperature: 36.1 (C ) / 97.0 (F) Weight: 312 lbs 08/01/2013 Blood Pressure 1: 142/86 Code: 8480-6 BMI: 42.4 Code: 72419-6 Heart Rate 1: 84 bpm Height: 6' [...] 1: 156/108 Code: 8480-6 BMI: 41.9 Code: 31653-6 Heart Rate 1: 92 bpm Height: 6' Respiratory Rate: 20 bpm Temperature: 36.9 (C ) / 98.4 (F) Weight: 309 lbs 02/27/2013 Blood Pressure 1: 162/114 Code: 8480-6 BMI: 41.0 Code: 37324-7 Heart Rate 1: 84 bpm Height: 6' Respiratory Rate: 20 bpm Temperature: 36.7 (C ) / 98.0 (F) Weight: 302 lbs 01/01/2013 Blood Pressure 1: 138/86 Code: 8480-6 BMI: 41.0 Code: 34662-8 Heart Rate 1: 76 bpm Height: 6' Respiratory Rate: 20 bpm Temperature: 36.7 (C ) / 98.0 (F) Weight: 302 lbs 11/27/2012 Blood Pressure 1: 136/92 Code: 8480-6 BMI: 41.2 Code: 95151-1 Heart Rate 1: 80 bpm Height: 6' Respiratory Rate: 20 bpm Temperature: 36.6 (C ) / 97.8 (F) Weight: 304 lbs 08/28/2012 Blood Pressure 1: 126/80 Code: 8480-6 BMI: 41.8 Code: 24569-0 Heart Rate 1: 80 bpm Height: 6' Respiratory Rate: 20 bpm Temperature: 36.4 (C ) / 97.6 (F) Weight: 308 lbs 07/03/2012 Blood Pressure 1: 114/80 Code: 8480-6 BMI: 42.3 Code: 15005-3 Heart Rate 1: 72 bpm Height: 6' Respiratory Rate: 20 bpm Temperature: 36.6 (C ) / 97.9 (F) Weight: 312 lbs 06/21/2012 Blood Pressure 1: 152/100 Code: 8480-6 BMI: 43.3 Code: 87694-2 Heart Rate 1: 72 bpm Height: 6' Temperature: 36.8 (C ) / 98.2 (F) Weight: 319 lbs 05/30/2012 Blood Pressure 1: 122/78 Code: 8480-6 BMI: 43.0 Code: 19168-0 Heart Rate 1: 72 bpm Height: 6' Respiratory Rate: 20 bpm Temperature: 36.7 (C ) / 98.0 (F) Weight: 317 lbs 05/21/2012 Blood Pressure 1: 126/94 Code: 8480-6 BMI: 44.2 Code: 27527-3 Heart Rate 1: 92 bpm Height: 6' Respiratory Rate: 20 bpm Temperature: 36.6 (C ) / 97.9 (F) Weight: 326 lbs 01/24/2012 Blood Pressure 1: 122/90 Code: 8480-6 BMI: 44.5 Code: 83945-2 Heart Rate 1: 76 bpm Height: 6' Respiratory Rate: 20 bpm Temperature: 36.8 (C ) / 98.2 (F) Weight: 328 lbs 09/21/2011 Blood Pressure 1: 116/80 Code: 8480-6 BMI: 44.1 Code: 30957-1 Heart Rate 1: 92 bpm Height: 6' Respiratory Rate: 20 bpm Temperature: 36.7 (C ) / 98.1 (F) Weight: 325 lbs 09/12/2011 Blood Pressure 1: 166/110 Code: 8480-6 BMI: 45.0 Code: 12219-3 Heart Rate 1: 80 bpm Height: 6' Respiratory Rate: 20 bpm Temperature: 36.5 (C ) / 97.7 (F) Weight: 332 lbs 06/14/2011 Blood Pressure 1: 142/84 Code: 8480-6 BMI: 45.6 Code: 25234-4 Heart Rate 1: 104 bpm Height: 6' Respiratory Rate: 20 bpm Temperature: 36.4 (C ) / 97.5 (F) Weight: 336 lbs 03/03/2011 Blood Pressure 1: 130/96 Code: 8480-6 Heart Rate 1: 86 bpm Temperature: 36.1 (C) / 97.0 (F) Weight: 327 lbs 01/27/2011 Blood Pressure 1: 142/96 Code: 8480-6 BMI: 42.0 Code: 26378-3 Heart Rate 1: 72 bpm Height: 6'2" [...] 11/27/2012 in elbow--seen in Urgent care in [place] and started on abx cellulitis Onset and [...] and Resolution ongoing 06/21/2012 [facility] didn't have diabetes mellitus Blood [...] Encounters Encounter Performer Loca tion Codes Date ([id number]) OFFICE/OUTPA TIENT VISIT EST Diagnosis: Essential (primary) hypertension[ICD10: I10] Diagnosis: 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, 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] Diagnosis: Kidney transplant status[ICD10: Z94.0] Diagnosis: Chronic kidney disease, stage 3 (moderate)[ICD10: N18.3] Diagnosis: Mixed hyperlipidemia[ICD10: E78.2] Galina ASENCIO SusuKarol [facility] CPT-4: 01635 02/26/2019 ([id number]) NURSE/OUTPAT IENT VISIT EST Diagnosis: 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, 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] Diagnosis: Essential (primary) hypertension[ICD10: I10] Diagnosis: Other specified hypothyroidism[ICD10: E03.8] Diagnosis: Mixed hyperlipidemia[ICD10: E78.2] Galina Chance [facility] CPT-4: 93555 02/19/2019 ([id number]) NURSE/OUTPAT IENT VISIT EST Diagnosis: Kidney transplant status[ICD10: Z94.0] 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] Diagnosis: Other superintendent terminal (current) drug therapy[ICD10: Z79.899] Diagnosis: Encounter for aftercare following other organ transplant[ICD10: Z48.298] Diagnosis: Mixed hyperlipidemia[ICD10: E78.2] Galina Chance [facility] CPT-4: 13932 08/24/2018 ([id number]) NURSE/OUTPAT IENT VISIT EST Diagnosis: Type 2 diabetes mellitus with diabetic neuropathy, unspecified[ICD10: E11.40] Diagnosis: Type 2 diabetes mellitus with hyperglycemia[ICD10: E11.65] 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] Diagnosis: Essential (primary) hypertension[ICD10: I10] Galina ARTEAGA [employer] CPT-4: 27295 06/29/2018 ([id number]) OFFICE/OUTPA TIENT VISIT EST Diagnosis: Slow transit constipation[ICD10: K59.01] Diagnosis: Epigastric pain[ICD10: R10.13] Diagnosis: Type 2 diabetes mellitus with hyperglycemia[ICD10: E11.65] Coleen SMITH [employer] CPT-4: 00339 06/26/2018 ([id number]) OFFICE/OUTPA TIENT VISIT EST Diagnosis: Right lower quadrant pain[ICD10: R10.31] Diagnosis: Type 2 diabetes mellitus with diabetic neuropathy, unspecified[ICD10: E11.40] Coleen SMITH [employer] CPT-4: 63520 02/06/2018 ([id number]) OFFICE/OUTPA TIENT VISIT EST Diagnosis: Type 2 diabetes mellitus with hyperglycemia[ICD10: E11.65] Diagnosis: Mixed hyperlipidemia[ICD10: E78.2] Diagnosis: Essential (primary) hypertension[ICD10: I10] Coleen CHENEY [employer] CPT-4: 41856 11/02/2017 ([id number]) PREV VISIT E ST AGE 18-39 Diagnosis: Encounter for general adult medical examination with abnormal findings[ICD10: Z00.01] Diagnosis: Abrasion of right hand, initial encounter[ICD10: S60.511A] 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] Coleen SMITH [employer] CPT-4: 50534 07/27/2017 OFFICE/OUTPATIENT SIT EST 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] Diagnosis: Tinea pedis[ICD10: B35.3] Coleen SMITH [employer] CPT-4: 25656 04/05/2017 ([id number]) OFFICE/OUTPA TIENT VISIT EST Diagnosis: 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, 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] Diagnosis: Mixed hyperlipidemia[ICD10: E78.2] Diagnosis: Essential (primary) hypertension[ICD10: I10] Galina ARTEAGA [facility] CPT-4: 61575 06/20/2016 ([id number]) OFFICE/OUTPA TIENT VISIT EST Diagnosis: Urinary tract infection, site not specified[ICD10: N39.0] Missy SMITH [facility] CPT-4: 25095 02/16/2016 ([id number]) OFFICE/OUTPA TIENT VISIT EST Diagnosis: Type 2 diabetes mellitus with hyperglycemia[ICD10: E11.65] Diagnosis: Cramp and spasm[ICD10: R25.2] Diagnosis: Hematuria, unspecified[ICD10: R31.9] Galina ARTEAGA [facility] CPT-4: 90119 12/03/2015 OFFICE/OUTPATIENT SIT EST Diagnosis: Type 2 diabetes mellitus with diabetic neuropathy, unspecified[ICD10: E11.40] Alejandra Billy GALINA SMITH [facility] CPT-4: 77764 06/24/2015 ([id number]) OFFICE/OUTPA TIENT VISIT EST Diagnosis: Acute sinusitis, unspecified[ICD10: J01.90] Diagnosis: Otitis media, unspecified, bilateral[ICD10: H66.93] Galina ROD [facility] CPT-4: 14570 06/11/2015 ([id number]) OFFICE/OUTPA TIENT VISIT EST Diagnosis: 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[ICD9: 250.01] Diagnosis: HYPERTENSION[ICD9: 401.9] Diagnosis: HYPERLIPIDEMIA NEC/NOS[ICD9: 272.4] Diagnosis: KIDNEY TRANSPLANT STATUS[ICD9: V42.0] [facility] CPT-4: 15295 07/17/2014 ([id number]) OFFICE/OUTPA TIENT VISIT EST Diagnosis: 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[ICD9: 250.01] Diagnosis: HYPERTENSION[ICD9: 401.9] Galina SMITH [facility] CPT-4: 74320 10/31/2013 ([id number]) OFFICE/OUTPA TIENT VISIT EST Diagnosis: 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I[ICD9: 250.00] Diagnosis: HYPERTENSION[ICD9: 401.9] Diagnosis: HYPERLIPIDEMIA NEC/NOS[ICD9: 272.4] Galina ROD [facility] CPT-4: 55112 08/01/2013 OFFICE/OUTPATIENT SIT EST Diagnosis: HEMATURIA NOS[ICD9: 599.70] Diagnosis: Abdominal pain, acute, right lower quadrant[ICD9: 789.03] Diagnosis: KIDNEY TRANSPLANT STATUS[ICD9: V42.0] Alejandra GuptaMargaritashannan GALINA Meron O [facility] CPT-4: 44376 07/30/2013 ([id number]) OFFICE/OUTPA TIENT VISIT EST Diagnosis: Uncontrolled hypertension[ICD9: 401.9] Diagnosis: BRIEF DEPRESSIVE REACT[ICD9: 309.0] Galina Luis MEJIALINE SusuKarol ROD [facility] CPT-4: 28120 05/30/2013 ([id number]) OFFICE/OUTPA TIENT VISIT EST Diagnosis: HYPERTENSION[ICD9: 401.9] Diagnosis: Anticipatory grieving[ICD9: 309.0] Galina Luis GALINA SusuKarol ROD [facility] CPT-4: 17320 04/29/2013 ([id number]) OFFICE/OUTPA TIENT VISIT EST Diagnosis: 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I, UNCONTROLLED[ICD9: 250.02] Diagnosis: HYPERTENSION[ICD9: 401.9] Diagnosis: HYPOTHYROIDISM[ICD9: 244.9] Diagnosis: KIDNEY TRANSPLANT STATUS[ICD9: V42.0] Galina Rodranjanatorri GALINA SusuKarol ROD [facility] CPT-4: 39660 02/27/2013 OFFICE/OUTPATIENT SIT EST Diagnosis: Paronychia[ICD9: 681.9] Diagnosis: ONYCHOMYCOSIS[ICD9: 110.1] Viky [facility]IO [facility] CPT-4: 11740 01/01/2013 ([id number]) OFFICE/OUTPA TIENT VISIT EST Diagnosis: 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I, UNCONTROLLED[ICD9: 250.02] Diagnosis: HYPERLIPIDEMIA NEC/NOS[ICD9: 272.4] Diagnosis: HYPERTENSION[ICD9: 401.9] Diagnosis: KIDNEY TRANSPLANT STATUS[ICD9: V42.0] Diagnosis: HYPOTHYROIDISM[ICD9: 244.9] Galina SMITH [facility] CPT-4: 80832 11/27/2012 ([id number]) OFFICE/OUTPA TIENT VISIT EST Diagnosis: 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I[ICD9: 250.00] Diagnosis: HYPOTHYROIDISM[ICD9: 244.9] Diagnosis: HYPERLIPIDEMIA NEC/NOS[ICD9: 272.4] Diagnosis: HYPERTENSION[ICD9: 401.9] Galina SMITH [facility] CPT-4: 98334 08/28/2012 ([id number]) OFFICE/OUTPA TIENT VISIT EST Diagnosis: HYPOTHYROIDISM[ICD9: 244.9] Diagnosis: 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I, UNCONTROLLED[ICD9: 250.02] Diagnosis: HYPERLIPIDEMIA NEC/NOS[ICD9: 272.4] Diagnosis: KIDNEY TRANSPLANT STATUS[ICD9: V42.0] Diagnosis: HYPERTENSION[ICD9: 401.9] Galina SMITH [facility] CPT-4: 60993 08/20/2012 OFFICE/OUTPATIENT SIT EST Diagnosis: 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I, UNCONTROLLED[ICD9: 250.02] Diagnosis: HYPERTENSION[ICD9: 401.9] Galina SMITH [facility] CPT-4: 34608 07/03/2012 OFFICE/OUTPATIENT SIT EST Diagnosis: 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I, UNCONTROLLED[ICD9: 250.02] Diagnosis: HYPERTENSION[ICD9: 401.9] Galina SMITH [facility] CPT-4: 56045 06/21/2012 OFFICE/OUTPATIENT SIT EST Diagnosis: 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I, UNCONTROLLED[ICD9: 250.02] Diagnosis: HYPERTENSION[ICD9: 401.9] Diagnosis: HYPERLIPIDEMIA NEC/NOS[ICD9: 272.4] Diagnosis: KIDNEY TRANSPLANT STATUS[ICD9: V42.0] Galina ARTEAGA [place] [facility] CPT-4: 16548 05/30/2012 ([id number]) OFFICE/OUTPA TIENT VISIT EST Diagnosis: HYPERTENSION[ICD9: 401.9] Diagnosis: VISUAL DISTURBANCE[ICD9: 368.9] Galina SMITH DO [facility] CPT-4: 16892 05/21/2012 ([id number]) OFFICE/OUTPA TIENT VISIT EST Diagnosis: HYPERTENSION[ICD9: 401.9] Diagnosis: HYPOTHYROIDISM[ICD9: 244.9] Diagnosis: KIDNEY TRANSPLANT STATUS[ICD9: V42.0] Galina ARTEAGA [facility] CPT-4: 42765 01/24/2012 OFFICE/OUTPATIENT SIT EST Diagnosis: DIZZINESS/VERTIGO[ICD9: 780.4] Diagnosis: HYPERTENSION[ICD9: 401.9] Galina SMITH [facility] CPT-4: 10205 09/21/2011 ([id number]) OFFICE/OUTPA TIENT VISIT EST Diagnosis: HYPERTENSION[ICD9: 401.9] Diagnosis: HYPOTHYROIDISM[ICD9: 244.9] Diagnosis: HYPERLIPIDEMIA NEC/NOS[ICD9: 272.4] Diagnosis: KIDNEY TRANSPLANT STATUS[ICD9: V42.0] Galina [facility] CPT-4: 42030 09/12/2011 OFFICE/OUTPATIENT SIT EST Diagnosis: HYPOTHYROIDISM[ICD9: 244.9] Diagnosis: HYPERTENSION[ICD9: 401.9] Diagnosis: CEPHALGIA[ICD9: 784.0] Galina SMITH [facility] CPT-4: 97403 06/14/2011 OFFICE/OUTPATIENT SIT EST Diagnosis: HYPERTENSION[ICD9: 401.9] Diagnosis: PHARYNGITIS, ACUTE[ICD9: 462] Diagnosis: HYPOTHYROIDISM[ICD9: 244.9] Galina SMITH [facility] CPT-4: 22580 03/03/2011 OFFICE/OUTPATIENT SIT EST Diagnosis: HYPOTHYROIDISM[ICD9: 244.9] Diagnosis: KIDNEY TRANSPLANT STATUS[ICD9: V42.0] Diagnosis: HYPERTENSION[ICD9: 401.9] Diagnosis: SINUSITIS, ACUTE[ICD9: 461.9] Galina SMITH [facility] CPT-4: 29092 01/27/2011 ([id number]) OFFICE/OUTPA TIENT VISIT EST Galina [facility] CPT-4: 10912 12/02/2010 Plan of Care Planned Activity Notes [...] E10.9 02/26/2019 Patient Education: atorvastatin- OptimizeRX Coupon [id number] [email or web address]/[email or web address] Completed 02/26/2019 Appointment: Galina Smith WPtel: [address] [place] [address] LAB 02/19/2019 Appointment: Coleen Frey [address] [place] [address] had 2 flat tires this morning. NO SHOW - FORGIVEN 02/19/2019 Appointment: Galina Smith WPtel: [address] [place] [address] LAB 08/24/2018 Appointment: Galina Smith WPtel: [address] [place] [address] LAB 06/29/2018 Visit Diagnosis Plan: Epigastric pain [...] he had labs done in dec at [facility]. will obtain lab results and order additional labs as needed. ICD-9 : 250.02 ICD-10 : E11.65 06/26/2018 Appointment: Coleen Frey [address] [facility] ACUTE ILLNESS 06/26/2018 Visit Diagnosis Plan: Type [...] : R10.31 02/06/2018 Appointment: Coleen Frey [address] [facility] ACUTE ILLNESS 02/06/2018 Patient Education: [...] : E11.65 11/02/2017 Appointment: Coleen Frey [address] [facility] FOLLOW UP 11/02/2017 Patient Education: Patient Medication Summary Completed 11/02/2017 Visit Diagnosis Plan: Abrasion of right hand, initial encounter Discussion: keflex prescribed for infect ion. instructed patient to call or rtc next week if no improvement. keep area clean and dry. ICD-9 : 914.0 ICD-10 : S60.511A 07/27/2017 Visit Diagnosis Plan: Encounter for [facility] adult medical examination with abnormal findings Discussion: [...] ICD-10 : E11.59 07/27/2017 Appointment: Coleen Frey [address] [place], [place] [address] Annual Well Visit 07/27/2017 Patient Education: Patient [...] ICD-10 : B35.3 04/05/2017 Appointment: Coleen Frey [address] [place], [place] [id number] FOLLOW UP 04/05/2017 Patient Education: Patient Medication Summary Completed 04/05/2017 Patient Education: Patient Medication Summary Completed 04/05/2017 Care Plan: CBC Pending 04/05/2017 Care Plan: LIPID PANEL LOINC : [id number] Pending 04/05/2017 Care Plan: COMPREHEN METABOLIC PANEL LOINC : [phone] Pending 04/05/2017 Visit Plan: Patient admits that [...] given 06/20/2016 App[facility]ment: Galina [facility] [phone] [id number] 06/16 lm-sp 06/20 lm ~sl FOLLOW UP 06/20/2016 Patient Education: Patient Medication Summary Completed 06/20/2016 Patient Education: Patient Medication Summary Completed 05/04/2016 Care Plan: COMPREHEN METABOLIC PANEL LOINC : 63776-0 Pending 05/04/2016 Care Plan: CBC Pending 05/04/2016 Care Plan: LIPID PANEL LOINC : 98261-8 Pending 05/04/2016 Care Plan: A1C HPLC LO INC : 19524-3 Pending 05/04/2016 Visit Plan: Discussed with Dr Norwood er Treatment as above while awaiting specialist to return his call Push fluids Follow up celine if not improving 02/16/2016 Visit Plan: Discussed with Dr Norwood er Treatment as above while awaiting specialist to return his call Push fluids Follow up celine if not improving 02/16/2016 Appointment: Missy Dc [phone] [facility] ACUTE ILLNESS 02/16/2016 Patient Education: Patient Medication [...] well 12/03/2015 Appointment: Galina Smith [facility]Ptel[facility] [phone] [id number] [facility] 12/03/2015 Patient Education: Patient Medication [...] is improved. 06/24/2015 Appointment: Alejandra Billy WPtel: [address] [place] [address] ACUTE ILLNESS 06/24/2015 Patient Education: Patient Medication Summary Completed 06/24/2015 Patient Education: Lyrica - 18+ - No MA NE Completed 06/24/2015 Visit Plan: Saline nasal flushes pr n. Tylenol/Motrin prn headache. Notify if persists/symptoms worsening. Obtain most recent lab Warned of increased BS with prednisone--has sliding scale to use 06/11/2015 Appointment: Galina Smith WPtel: [address] [place] [address] 06/10/15 cn....06/10/15 appt confirmjeremy sylvester cn Annual Well Visit 05/14 Patient Education: Patient Medication Summary Completed 06/11/2015 Appointment: Galina Smith WPtel: [address] [place], [place] [phone] FOLLOW UP 10/15/2014 Patient Education: Patient Medication Summary Completed 09/03/2014 Care Plan: COMPREHEN METABOLIC PANEL LOINC : 37817-2 Ordered 09/03/2014 Visit Plan: Obtain most recent lab results Will likely need HbA1C and Lipids if were not done Accuchecks q AC and HS 07/17/2014 Appointment: Galina Smith WPtel: [address] [place], [place] [phone] US FOLLOW UP 07/17/2014 Patient Education: Patient Medication Summary Completed 07/17/2014 Appointment: Galina Smith WPtel: [address] [place], [place] [phone] 01/29 vm 01/30 NO SHOW FOLLOW UP 01/30/2014 Visit Plan: Check CMP, HbA1C, CBC, Lipids Pt sees transplant doctor next month Pt is currently just using insulin prn and monitering BS 10/31/2013 Appointment: Galina Smith WPtel: [address] [place], [place] [phone] FOLLOW UP 10/31/2013 Patient Education: Patient Medication Summary Completed 10/31/2013 Visit Plan: Continue current meds a nd acuchecks 08/01/2013 Appointment: Galina Smith WPtel: [address] [place], [place] [phone] 07/31 FOLLOW UP 08/01/2013 Patient Education: Patient Medication Summary Completed 08/01/2013 Visit Plan: CBC, CMP, CRP To [facility] for CT abdomen/Pelvis w/o contrast 07/30/2013 Appointment: Alejandra Billy WPtel: [address] [place] [address] ACUTE ILLNESS 07/30/2013 Patient Education: Patient Medication Summary Completed 07/30/2013 Visit Plan: Restart Ken--pt says needs PA Continue fluoxetine at 20mg daily 05/30/2013 Appointment: Galina Smith WPtel: [address] [place], [place] [phone] FOLLOW UP 05/30/2013 Patient Education: Patient Medication Summary Completed 05/30/2013 Appointment: Galina Smith WPtel: [address] [place], [place] [phone] [place] has appt following day FOLLOW UP 05/29/2013 Visit Plan: Restart Ken and Amlo dopine as has been out--new rx sent out Trial of Fluoxetine 20mg q AM Stress Reducers 04/29/2013 Appointment: Galina Smith WPtel: [address] [place], [place] [phone] 04/26 MOM made appt. confirmed monday ACUTE ILLNESS 04/29/2013 Patient Education: Patient Medication Summary Completed 04/29/2013 Visit Plan: Continue current meds a nd accuchecks Pt going for fasting lab next month 02/27/2013 Appointment: Galina Smith WPtel: [address] [place] [address] FOLLOW UP 02/27/2013 Patient Education: Patient Medication Summary Completed 02/27/2013 Appointment: Viky Acosta WPtel: [address] [place] [address] ACUTE ILLNESS 01/01/2013 Patient Education: Patient Medication Summary Completed 01/01/2013 Visit Plan: Continue current meds C heck fasting lab next week 11/27/2012 Appointment: Galina Smith WPtel: [address] [place] [address] FOLLOW UP 11/27/2012 Patient Education: Patient Medication Summary Completed 11/27/2012 Visit Plan: Lab discussed Continue current meds and accuchecks Pt sees transplant doctor in in October Check fasting lab and fwup in 3mos 08/28/2012 Appointment: Galina Smith WPtel: [address] [place] [address] 08/27 FOLLOW UP 08/28/2012 Patient Education: Patient Medication Summary Completed 08/28/2012 Appointment: Galina Smith WPtel: [address] [place], [place] [phone] 08/20/2012 Patient Education: Patient Medication Summary Completed 08/20/2012 Visit Plan: Continue levemir at cur rent dose with accuchecks Use apidra with sliding scale Check Chem 7 and HbA1C in 2mos 07/03/2012 Appointment: Galina Smith WPtel: [address] [place], [place] [phone] 07/02 FOLLOW UP 07/03/2012 Patient Education: Patient [...] 320mg daily 06/21/2012 Appointment: Galina Smith WPtel: [address] [place] [address] ACUTE ILLNESS 06/21/2012 Patient Education: Patient Medication Summary Completed 06/21/2012 Visit Plan: Increase Levemir to 75 u sc q PM Continue sliding scale insulin with accuchecks q AC and HS Call in 1wk with BS readings 05/30/2012 Appointment: Galina Smith WPtel: [address] [place] [address] Hospital Follow Up 05/30/2012 Patient Education: Patient Medication Summary Completed 05/30/2012 Appointment: Galina Smith WPtel: [address] [place] [address] 05/21 - cancelled appointment for 05/22 because PT was worked in on 05/21 FOLLOW UP 05/22/2012 Visit Plan: Obtain lab done last mo from [facility] See optometry for dilated eye exam and eye pressures today May need CT head pending results of eye evaluation 05/21/2012 Appointment: Galina Smith WPtel: [address] [place] [address] WORK IN 05/21/2012 Appointment: Galina Smith WPtel: [address] [place] [address] US LAB 05/21/2012 Patient Education: Patient Medication Summary Completed 05/21/2012 Visit Plan: Continue current meds O btain most recent lab done at [facility] See eye doctor today for dilated exam and eye pressures May need CT head pending dilated eye exam results 01/24/2012 Visit Plan: Continue current meds O btain most recent lab done at [facility] 01/24/2012 Visit Plan: Continue current meds C heck CBC, CMP, TSH, Free T4 01/24/2012 Appointment: Galina Smith WPtel: [address] [place] [address] voicemail FOLLOW UP 01/24/2012 Patient Education: Patient Medication Summary Completed 01/24/2012 Visit Plan: Decrease Norvasc to 2.5 mg daily Check CBC, CMP, TSH, Free T4 09/21/2011 Appointment: Galina Smith WPtel: [address] [place] [address] ACUTE ILLNESS 09/21/2011 Patient Education: Patient Medication Summary Completed 09/21/2011 Visit Plan: Continue Diovan at curr ent dose Add amlodopine Check Lipids/LFTs with next lab 09/12/2011 Appointment: Galina Smith WPtel: [address] [place] [address] FOLLOW UP 09/12/2011 Patient Education: Patient Medication Summary Completed 09/12/2011 Visit Plan: Increase Diovan to 320m g po daily Check TSH and Free T4 with kidney lab next week 06/14/2011 Appointment: Galina Smith WPtel: [address] [place] [address] FOLLOW UP 06/14/2011 Patient Education: Patient Medication Summary Completed 06/14/2011 Visit Plan: Z-pack then new tootheb ivory Start Diovan 03/03/2011 Appointment: Galina Smith WPtel: [address] [place] [address] ACUTE ILLNESS 03/03/2011 Patient Education: Patient Medication Summary Completed 03/03/2011 Visit Plan: Check TSH, Free T4 toda y Pt will moniter BP at home See if treatment of sinuses helps headaches 01/27/2011 Appointment: Galina Smith WPtel: [address] [place] [address] FOLLOW UP 01/27/2011 Patient Education: Patient Medication Summary Completed 01/27/2011 Visit Plan: Continue current meds a nd proceed with lab per kidney transplant doctor Start Synthroid at 50mcg po daily 12/02/2010 [facility]ment[id number] [facility] FOLLOW UP 12/02/2010 Patient Education: Patient Medication Summary Completed 12/02/2010 [facility]ment: [id number] [facility] Suture Removal 10/20/2009 Patient Education: Patient [...] Obtain lab done la [facility] mo from [facility] See optometry for dilated eye exam [...] eds Obtain most recent lab done at [facility] See eye doctor today for dilated exam and eye pressures May need CT head pending dilated eye exam results . Continue current m eds Obtain most recent lab done at [facility] . Continue current m eds Check CBC, CMP, TSH, Free T4 . Continue current m eds and accuchecks Pt going for fasting lab next month . Check TSH, Free T4 today Pt will moniter BP at home See if treatment of sinuses helps headaches . CBC, CMP, CRP To [facility] for CT abdomen/Pelvis w/o contrast . Saline [...] . Labs completed thi s am in [facility] but do not have results yet. Start Lyrica 75mg PO bid Will Call in a week and let know if pain is improved. . Labs completed thi s am in [facility] but do not have results yet. Start Lyrica 75mg PO bid Will Call in a week and let know if pain is improved. . Restart Diovan and Amlodopine as has been out--new rx sent out Trial of Fluoxetine 20mg q AM Stress Reducers
--- OUTSIDE RECORDS SUMMARY | 2019-08-21 00:23 | XMS REPORT | CCD ---
Author Author Cuauhtemoc Smith D.O. Organization [facility] Address [address] [place] [address] Phone Care Team Providers Care Mail Inserter Name Role Phone Galina Smith D.O., PP Unavailable CCM Unavailable Summary Purpose Interface Exchange Insurance Providers Payer name Policy type / Coverage type Covered democrat ID Effective Begin Date Effective End Date Blue Cross Blue Shield Blue Cross/Bl ue Shield [id number] 2017 Un known Family History Family History data not found Social History Social History Element Codes Description Effective Dates Tobacco history SNOMED CT: [id number] Currently uses smokeless tobacco 06/14/2011 Allergies, Adverse [...] Codes Condition Status Onset Date Resolved Date 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, 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 ICD-10: E10.9 Active 06/19/2016 Unknown Essential (primary) hypertension ICD-9: 401.9 ICD-10: I10 Active 10/31/2013 Unknown Mixed hyperlipidemia ICD-9: 272.4 ICD-10: E78.2 Active 07/17/2014 Unknown Other specified hypo thyroidism ICD-9: 244.9 ICD-10: E03.8 Active 02/19/2019 Unknown Encounter for afterc are following other organ transplant ICD-9: V58.44 ICD-10: Z48.298 Active 08/24/[address] [facility] ICD-9: V42.0 ICD-10: Z94.0 Active 08/24/2018 Unknown 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 [...] Condition Codes Effectiv e Dates Condition Status 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, 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 ICD-10: E10.9 06/19/2016 Active Essential (primary) hypertension ICD-9: 401.9 ICD-10: I10 10/31/2013 Active Mixed hyperlipidemia ICD-9: 272.4 ICD-10: E78.2 07/17/2014 Active Other specified hypo thyroidism ICD-9: 244.9 ICD-10: E03.8 02/19/2019 Active Encounter for afterc are following other organ transplant ICD-9: V58.44 ICD-10: Z48.298 08/24/[address] [facility] ICD-9: V42.0 ICD-10: Z94.0 08/24/2018 Active 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) [...] Date Stop Date Sta tus Fill Instructions Novolog Flexpen U-10 0 Insulin aspart 100 unit/mL (3 mL) subcutaneous RxNorm: 1640282 INJECT SUBCUTANEOUSLY NEEDED PER SLIDING SCALE 02/22/2019 No Stop Date Active Levemir FlexTouch U- 100 Insulin 100 unit/mL (3 mL) subcutaneous pen RxNorm: 622883 90 Unit(s) SQ BID 01/08/2019 04/07/2019 Active Levemir FlexTouch U- 100 Insulin 100 unit/mL (3 mL) subcutaneous pen RxNorm: 838252 90 Unit(s) SQ BID 12/04/2018 12/03/2018 Inactive Levemir FlexTouch U- 100 Insulin 100 unit/mL (3 mL) subcutaneous pen RxNorm: 274234 90 Unit(s) SQ BID 12/04/2018 01/07/2019 Inactive Levemir FlexTouch U- 100 Insulin 100 unit/mL (3 mL) subcutaneous pen RxNorm: 488627 70 Unit(s) SQ BID 10/26/2018 12/04/2018 Inactive Levemir FlexTouch U- 100 Insulin 100 unit/mL (3 mL) subcutaneous pen RxNorm: 433511 GIVE 90 UNITS SUBCUTANEOUSLY TWICE DAILY 10/08/2018 10/26/2018 Inactive Levemir FlexTouch U- 100 Insulin 100 unit/mL (3 mL) subcutaneous pen RxNorm: 588693 90 Unit(s) SQ BID 07/30/2018 10/07/2018 Inactive Levemir FlexTouch U- 100 Insulin 100 unit/mL (3 mL) subcutaneous pen RxNorm: 452101 90 Unit(s) SQ BID 07/06/2018 07/29/2018 Inactive Pen Needle 31 gauge x 5/16" RxNorm: USE DIRECTED 03/21/2018 No Stop Date Active Levemir FlexTouch U- 100 Insulin 100 unit/mL (3 mL) subcutaneous pen RxNorm: 424051 80 Unit(s) SQ BID 02/15/2018 07/06/2018 Inactive Levemir FlexTouch U- 100 Insulin 100 unit/mL (3 mL) subcutaneous pen RxNorm: 621982 INJECT 105 UNITS SUBCUTANEOUSLY IN THE EVENING 01/24/2018 02/15/2018 Inactive Levemir FlexTouch U- 100 Insulin 100 unit/mL (3 mL) subcutaneous pen RxNorm: 186232 INJECT 105 UNITS SUBCUTANEOUSLY IN THE EVENING 12/26/2017 01/23/2018 Inactive Novolog Flexpen U-10 0 Insulin aspart 100 unit/mL (3 mL) subcutaneous RxNorm: 0010380 INJECT SUBCUTANEOUSLY NEEDED PER SLIDING SCALE 12/25/2017 02/21/2019 Inactive Levemir FlexTouch U- 100 Insulin 100 unit/mL (3 mL) subcutaneous pen RxNorm: 782024 70 Unit(s) SQ BID 11/03/2017 11/03/2017 Inactive Levemir FlexTouch U- 100 Insulin 100 unit/mL (3 mL) subcutaneous pen RxNorm: 459939 105 Unit(s) SQ QPM 11/02/2017 11/02/2017 Inactive Levemir FlexTouch U- 100 Insulin 100 unit/mL (3 mL) subcutaneous pen RxNorm: 377396 105 Unit(s) SQ QPM Needs updated labs 11/01/2017 11/01/2017 Inactive Levemir FlexTouch U- 100 Insulin 100 unit/mL (3 mL) subcutaneous pen RxNorm: 705897 Unit(s) 105 Unit(s) SQ QPM 09/18/2017 09/18/2017 Inactive Levemir FlexTouch U- 100 Insulin 100 unit/mL (3 mL) subcutaneous pen RxNorm: 439877 105 Unit(s) SQ QPM 08/07/2017 09/18/2017 Inactive cephalexin 500 mg ca psule RxNorm: 946726 1 Capsule(s) PO BID 07/27/2017 08/02/2017 Inactive Levemir FlexTouch U- 100 Insulin 100 unit/mL (3 mL) subcutaneous pen RxNorm: 243495 105 Unit(s) SQ QPM 06/07/2017 06/07/2017 Inactive Levemir FlexTouch 10 0 unit/mL (3 mL) subcutaneous insulin pen RxNorm: 916616 105 Unit(s) SQ QPM 05/11/2017 06/07/2017 Inactive Lipitor 40 mg tablet RxNorm: 865913 1.5 Tablet(s) PO QD 04/05/2017 10/01/2017 Inactive Diovan 320 mg tablet RxNorm: 199702 1 Tablet(s) PO QD 04/05/2017 03/30/2018 Inactive Lipitor 40 mg tablet RxNorm: 164252 1 Tablet(s) PO QD 04/05/2017 04/04/2017 Inactive nystatin 100,000 uni t/gram topical ointment RxNorm: 615499 1 Gram(s) TOP BID 04/05/2017 05/02/2017 In active Levemir FlexTouch 10 0 unit/mL (3 mL) subcutaneous insulin pen RxNorm: 409954 105 Unit(s) SQ QPM 04/05/2017 04/05/2017 Inactive Levemir FlexTouch 10 0 unit/mL (3 mL) subcutaneous insulin pen RxNorm: 980475 90 Unit(s) SQ QPM LAST REFILL UNTIL LABS AND APPOINTMENT!!!! 04/05/2017 05/11/2017 Inactive Novolog Flexpen 100 unit/mL subcutaneous RxNorm: 9909345 Unit(s) INJECT SUBCU TANEOUSLY NEEDED PER SLIDING SCALE---NEEDS UPDATED LABS 03/07/2017 12/03/2018 Inactive Levemir FlexTouch 10 0 unit/mL (3 mL) subcutaneous insulin pen RxNorm: 780526 90 Unit(s) SQ QPM LAST REFILL UNTIL LABS AND APPOINTMENT!!!! 02/17/2017 03/18/2017 Inactive Levemir FlexTouch 10 0 unit/mL (3 mL) subcutaneous insulin pen RxNorm: 372824 90 Unit(s) SQ QPM NEEDS FASTING LABS AND APPOINTMENT BEFORE FURTHER REFILLS 12/22/2016 02/17/2017 In active Novolog Flexpen U-10 0 Insulin aspart 100 unit/mL subcutaneous RxNorm: 1006339 Unit(s) INJECT SUBCUTANEOUSLY NEEDED PER SLIDING SCALE---NEEDS UPDATED LABS 11/28/2016 03/07/2017 Inactive Levemir FlexTouch 10 0 unit/mL (3 mL) subcutaneous insulin pen RxNorm: 429655 90 Unit(s) VAG QPM 11/08/2016 12/22/2016 Inactive Levemir FlexTouch 10 0 unit/mL (3 mL) subcutaneous insulin pen RxNorm: 503069 90 Unit(s) VAG QPM 11/08/2016 12/21/2016 Inactive Levemir FlexTouch 10 0 unit/mL (3 mL) subcutaneous insulin pen RxNorm: 091460 80 Unit(s) VAG QPM 09/05/2016 11/08/2016 Inactive Levemir FlexTouch 10 0 unit/mL (3 mL) subcutaneous insulin pen RxNorm: 097939 85 Unit(s) SQ QD 07/22/2016 09/05/2016 Inactive Levemir FlexTouch 10 0 unit/mL (3 mL) subcutaneous insulin pen RxNorm: 962673 85 Unit(s) SQ QD 07/04/2016 07/21/2016 Inactive Levemir FlexTouch 10 0 unit/mL (3 mL) subcutaneous insulin pen RxNorm: 525604 85 Unit(s) SQ QD 06/14/2016 06/19/2016 Inactive Levemir FlexTouch 10 0 unit/mL (3 mL) subcutaneous insulin pen RxNorm: 863179 85 Unit(s) SQ QD 05/03/2016 05/22/2016 Inactive Levemir FlexTouch 10 0 unit/mL (3 mL) subcutaneous insulin pen RxNorm: 921468 85 Unit(s) SQ QD 05/03/2016 05/02/2016 Inactive Levemir FlexTouch 10 0 unit/mL (3 mL) subcutaneous insulin pen RxNorm: 452742 85 Unit(s) SQ QD 03/14/2016 04/22/2016 Inactive cefuroxime axetil 25 0 mg tablet RxNorm: 258745 1 Tablet(s) PO BID 02/16/2016 02/25/2016 Inactive Levemir FlexTouch 10 0 unit/mL (3 mL) subcutaneous insulin pen RxNorm: 226528 85 Unit(s) SQ QD 02/03/2016 03/13/2016 Inactive Levemir FlexTouch 10 0 unit/mL (3 mL) subcutaneous insulin pen RxNorm: 210109 85 Unit(s) SQ QD 12/07/2015 02/02/2016 Inactive Pen Needle 31 gauge x 5/16" RxNorm: USE DIRECTED 11/19/2015 05/16/2016 Inactive Levemir FlexTouch 10 0 unit/mL (3 mL) subcutaneous insulin pen RxNorm: 293863 INJECT 75 UNITS SUBCUTANEOUSLY ONCE DAILY; NEED LABS AND APPT 10/06/2015 12/04/2015 Inactive Novolog Flexpen 100 unit/mL subcutaneous RxNorm: 0893720 INJECT SUBCUTANEOUSL Y NEEDED PER SLIDING SCALE 09/15/2015 11/28/2016 Inactive Levemir FlexTouch 10 0 unit/mL (3 mL) subcutaneous insulin pen RxNorm: 688831 75 Unit(s) SQ QD Needs lab and appointment 07/13/2015 10/05/2015 Inactive Lyrica 75 mg capsule RxNorm: 192523 1 Capsule(s) PO BID 06/24/2015 07/23/2015 Inactive Levemir FlexTouch 10 0 unit/mL (3 mL) subcutaneous insulin pen RxNorm: 520876 75 Unit(s) SQ QD Needs lab and appointment 06/23/2015 07/12/2015 Inactive Novolog Flexpen 100 unit/mL subcutaneous RxNorm: 6001129 Unit(s) SQ as needed Sliding scale 06/15/2015 09/14/2015 Inactive Flonase Allergy Reli ef 50 mcg/actuation nasal spray,suspension RxNorm: 2 [place] NASAL QHS 06/11/2015 12/02/2015 Inactive prednisone 20 mg tablet RxNorm: 082566 1 Tablet(s) PO TID for 3 days then 1 po BID for 3 days then one daily for 3 days 06/11/2015 12/02/2015 Inactive cefdinir 300 mg capsule RxNorm: 992494 2 Capsule(s) PO QD 06/11/2015 06/24/2015 Inactive Levemir FlexTouch 10 0 unit/mL (3 mL) subcutaneous insulin pen RxNorm: 335780 75 Unit(s) SQ QD Needs lab and appointment 05/29/2015 06/22/2015 Inactive Novolog 100 unit/mL subcutaneous solution RxNorm: 272351 Unit(s) SQ Inject as directed using sliding scale B 05/29/2015 12/03/2018 Inactive Levemir Flexpen 100 unit/mL (3 mL) solution subcutaneous insulin pen RxNorm: 849904 INJECT 75 UNITS SUBCUTANEOUSLY EVERY DAY 05/11/2015 05/29/2015 Inactive Levemir FlexTouch 10 0 unit/mL (3 mL) subcutaneous insulin pen RxNorm: 690745 75 Unit(s) SQ QHS 03/30/2015 12/03/2018 Inactive Levemir FlexTouch 10 0 unit/mL (3 mL) subcutaneous insulin pen RxNorm: 091153 75 Unit(s) SQ QHS 03/09/2015 03/29/2015 Inactive Contour Test Strips RxNorm: Miscellaneous 01/27/2015 No Stop Date Active Novolog 100 unit/mL subcutaneous solution RxNorm: 225939 Unit(s) SQ Inject as directed using sliding scale B 01/27/2015 05/29/2015 Inactive Levemir Flexpen 100 unit/mL (3 mL) solution subcutaneous insulin pen RxNorm: 855906 INJECT 75 UNITS SUBCUTANEOUSLY EVERY DAY 11/05/2014 03/09/2015 Inactive Levemir Flexpen 100 unit/mL (3 mL) solution subcutaneous insulin pen RxNorm: 334401 INJECT 75 UNITS SUBCUTANEOUSLY EVERY DAY 08/13/2014 10/31/2014 Inactive Novolog 100 unit/mL subcutaneous solution RxNorm: 789429 Unit(s) SQ Inject as directed using sliding scale B 07/15/2014 01/26/2015 Inactive Apidra SoloStar 100 unit/mL subcutaneous insulin pen RxNorm: 589570 Unit(s) SQ INJECT DIRECTED USING SLIDING SCALE B 07/11/2014 07/14/2014 Inactive Diovan 320 mg tablet RxNorm: 749332 1 Tablet(s) PO QD 06/10/2014 06/04/2015 Inactive Apidra SoloStar 100 unit/mL subcutaneous insulin pen RxNorm: 979917 Unit(s) SQ INJECT DIRECTED USING SLIDING SCALE B 04/18/2014 07/10/2014 Inactive Levemir Flexpen 100 unit/mL (3 mL) solution subcutaneous insulin pen RxNorm: 220755 Unit(s) SQ INJECT 75 UNITS SUBCUTANEOUSLY EVERY DAY 02/28/2014 02/27/2014 Inactive [SAVINGS FOR UNINSURED PATIENTS -- BIN:[id number], PCN: [id number], Group: [id number], ID# [id number], Process claim through [employer], for questions: . THIS IS NOT INSURANCE.] Apidra SoloStar 100 unit/mL subcutaneous insulin pen RxNorm: 398813 Unit(s) SQ INJECT DIRECTED USING SLIDING SCALE B 09/05/2013 04/17/2014 Inactive Pen Needle 31 gauge x 5/16" RxNorm: Miscellaneous USE DIRECT ED WITH LEVEMIR AND APIDRA 08/23/2013 11/18/2015 Inactive Prograf 1 mg capsule RxNorm: 237075 2 Capsule(s) PO BID Generic OK to fill 08/21/2013 No Stop Date Active Diovan 320 mg tablet RxNorm: 700510 1 Tablet(s) PO QD 05/30/2013 05/24/2014 Inactive fluoxetine 20 mg tablet RxNorm: 251788 1 Tablet(s) PO QAM 05/30/2013 07/31/2013 Inactive amlodipine 5 mg tablet RxNorm: 283624 1 Tablet(s) PO QD 04/29/2013 04/23/2014 Inactive fluoxetine 20 mg tablet RxNorm: 583165 1 Tablet(s) PO QAM 04/29/2013 05/29/2013 Inactive ketoconazole 2 % top ical cream RxNorm: 688273 Application TOP BID f or 2-4wks 04/29/2013 05/12/2013 In active Diovan 320 mg tablet RxNorm: 986780 1 Tablet(s) PO QD 04/29/2013 06/10/2014 Inactive Apidra SoloStar 100 unit/mL subcutaneous insulin pen RxNorm: 345550 Unit(s) SQ Sliding Scale B 02/19/2013 09/05/2013 Inactive Levemir Flexpen 100 unit/mL (3 mL) solution subcutaneous insulin pen RxNorm: 079805 Insulin Pen SQ INJECT 75 UNITS SUBCUTANEOUSLY EVERY DA Y 01/21/2013 02/28/2014 Inactive Septra DS 800 mg-160 mg tablet RxNorm: 156775 1 Tablet(s) PO BID an tibiotic 01/01/2013 01/07/2013 In active ketoconazole 2 % top ical cream RxNorm: 986210 1 Application TOP BID 01/01/2013 01/14/2013 Inactive Levemir Flexpen 100 unit/mL (3 mL) Sub-Q Insulin Pen RxNorm: 757039 Unit(s) SQ INJECT 75 UNITS SUB-Q ONCE A DAY 12/07/2012 No Stop Date Active Levemir Flexpen 100 unit/mL (3 mL) Sub-Q Insulin Pen RxNorm: 708918 Unit(s) SQ INJECT 75 UNITS SUB-Q ONCE A DAY 10/22/2012 12/07/2012 Inactive Levemir Flexpen 100 unit/mL (3 mL) Sub-Q Insulin Pen RxNorm: 484025 75 Unit(s) SQ QHS 08/20/2012 10/22/2012 Inactive Diovan 320 mg tablet RxNorm: 750013 1 Tablet(s) PO QD 07/30/2012 04/28/2013 Inactive Levemir Flexpen 100 unit/mL (3 mL) Sub-Q Insulin Pen RxNorm: 080535 Insulin Pen SQ INJECT 75 UNITS SUB-Q ONCE A DAY 07/30/2012 10/21/2012 Inactive Levemir Flexpen 100 unit/mL (3 mL) Sub-Q Insulin Pen RxNorm: 591550 75 Unit(s) SQ QHS 07/30/2012 08/19/2012 Inactive Levemir Flexpen 100 unit/mL (3 mL) Sub-Q Insulin Pen RxNorm: 798069 75 Unit(s) SQ QHS 07/30/2012 07/29/2012 Inactive Diovan 320 mg tablet RxNorm: 866703 1 Tablet(s) PO QD 06/21/2012 06/20/2012 Inactive Diovan 320 mg tablet RxNorm: 435932 1 Tablet(s) PO QD 06/21/2012 06/20/2012 Inactive Diovan 320 mg tablet RxNorm: 729198 1 Tablet(s) PO QD 06/21/2012 07/29/2012 Inactive CellCept 250 mg capsule RxNorm: 780592 4 Capsule(s) PO BID 06/14/2012 06/20/2012 Inactive Prograf 1 mg capsule RxNorm: 703091 2 Capsule(s) PO BID Generic OK to fill 06/14/2012 06/20/2012 In active Apidra SoloStar 100 unit/mL Sub-Q Insulin Pen RxNorm: 558617 Unit(s) SQ Sliding Sc supriya B 06/13/2012 12/03/2018 Inactive Levemir Flexpen 100 unit/mL (3 mL) Sub-Q Insulin Pen RxNorm: 910138 75 Unit(s) SQ QD 06/13/2012 No Stop Date Active Apidra SoloStar 100 unit/mL Sub-Q Insulin Pen RxNorm: 120540 Unit(s) SQ Sliding Sc supriya B 06/13/2012 No Stop Date Active One Touch Delkaren Adeel cets RxNorm: Miscellaneous 0 06/13/2012 04/04/2017 Inactive Lipitor 40 mg tablet RxNorm: 613097 1 Tablet(s) PO QD 05/30/2012 08/27/2012 Inactive Diovan 320 mg tablet RxNorm: 280713 1 Tablet(s) PO QD 05/30/2012 06/20/2012 Inactive Tricor 145 mg tablet RxNorm: 295804 1 Tablet(s) PO QD 05/30/2012 08/27/2012 Inactive Lipitor 20 mg Tab RxNorm: 386138 1 Tablet(s) PO QD 09/12/2011 05/29/2012 Inactive Synthroid 50 mcg Tab RxNorm: 745025 1 Tablet(s) PO QD 09/12/2011 12/02/2015 Inactive Diovan 320 mg tablet RxNorm: 204749 1 Tablet(s) PO QD 09/12/2011 03/09/2012 Inactive amlodipine 5 mg tablet RxNorm: 064230 1 Tablet(s) PO QD 09/12/2011 03/09/2012 Inactive Diovan 320 mg Tab RxNorm: 972157 1 Tablet(s) PO QD 06/14/2011 09/11/2011 Inactive Diovan 160 mg Tab RxNorm: 337148 1 Tablet(s) PO QD 03/03/2011 06/13/2011 Inactive cefdinir 300 mg Cap RxNorm: 898395 2 Capsule(s) PO QD 01/27/2011 02/05/2011 Inactive Synthroid 50 mcg Tab RxNorm: 983445 1 Tablet(s) PO QD 12/02/2010 01/30/2011 Inactive Multivitamin & Returns Clerk al Formula Tab RxNorm: 1 Tablet(s) PO QD No Start Date Active Miralax 17 gram/dose oral powder RxNorm: 423383 PO BID in 6-8 ounces of water No Start Date Active Tylenol Extra Streng th 500 mg tablet RxNorm: 486068 Tablet(s) PO as neede d No Start Date Active Tricor Oral RxNorm: Oral No Start Date 05/29 Inactive MagOx 400 mg tablet RxNorm: 388357 1 Tablet(s) PO QD No Start Date 06/19/2016 Inactive sodium bicarbonate Oral RxNorm: Oral No Start Date 06/19/2016 Inactive Fish Oil 1,000 mg ca psule RxNorm: 1 Capsule(s) PO QD No Start Date 04/04/2017 Inactive Novofine Misc RxNorm: Miscellaneous No Start Date 06/12/2012 Inactive Percocet 5 mg-325 mg tablet RxNorm: 2151536 Tablet(s) PO as need ed Dr Parson No Start Date 04/04/2017 Inactive Contour Test Strips RxNorm: miscellaneous No Start Date 01/26/2015 Inactive Prograf 1 mg capsule RxNorm: 345108 2 Capsule(s) PO BID No Start Date 06/13/2012 Inactive Zantac 150 mg Tab RxNorm: 440060 Tablet(s) PO PRN No Start Date 12/02/2015 Inactive Levemir FlexTouch 10 0 unit/mL (3 mL) subcutaneous insulin pen RxNorm: 340268 75 Unit(s) SQ QHS No Start Date 03/08/2015 Inactive CellCept 250 mg capsule RxNorm: 190539 4 Capsule(s) PO BID No Start Date 06/13/2012 Inactive Novolog 100 unit/mL subcutaneous solution RxNorm: 908159 Unit(s) SQ Inject as directed using sliding scale B No Start Date 07/14/2014 Inactive Novolog Flexpen 100 unit/mL subcutaneous RxNorm: 1929555 Unit(s) SQ as needed Sliding scale No Start Date 06/14/2015 Inactive Apidra SoloStar 100 unit/mL Sub-Q Insulin Pen RxNorm: 590676 Unit(s) SQ Sliding Sc supriya B No Start Date 06/12/2012 Inactive Levemir FlexTouch U- 100 Insulin 100 unit/mL (3 mL) subcutaneous pen RxNorm: 943802 70 Unit(s) SQ BID No Start Date 02/06/2018 Inactive Pen Needle 31 X 5/16" RxNorm: Miscellaneous No Start Date 08/23/2013 Inactive Synthroid 50 mcg Tab RxNorm: 435942 1 Tablet(s) PO QD No Start Date 09/11/2011 Inactive Levemir Flexpen 100 unit/mL (3 mL) Sub-Q Insulin Pen RxNorm: 804278 70 Unit(s) SQ QHS No Start Date 07/29/2012 Inactive Levemir FlexTouch U- 100 Insulin 100 unit/mL (3 mL) subcutaneous pen RxNorm: 243642 80 Unit(s) SQ BID No Start Date 02/14/2018 Inactive Levemir FlexTouch 10 0 unit/mL (3 mL) subcutaneous insulin pen RxNorm: 999833 80 Unit(s) SQ QPM No Start Date 09/04/2016 Inactive Lipitor 40 mg tablet RxNorm: 481725 1 Tablet(s) PO QD No Start Date 04/04/2017 Inactive Ultram 50 mg tablet RxNorm: 533962 2 Tablet(s) PO TID as needed for pain No Start Date 06/10/2015 Inactive Prograf 1 mg Cap RxNorm: 591665 2 Capsule(s) PO BID No Start Date 05/20/2012 Inactive insulin needles (dis posable) 32 x 5/16" RxNorm: Miscellaneous for use with flex pen No Start Date 04/04/2017 Inactive Levemir FlexTouch U- 100 Insulin 100 unit/mL (3 mL) subcutaneous pen RxNorm: 508963 90 Unit(s) SQ BID No Start Date 07/05/2018 Inactive Levemir Flexpen 100 unit/mL (3 mL) Sub-Q Insulin Pen RxNorm: 130492 65 Unit(s) SQ QD No Start Date 06/12/2012 Inactive Zithromax Z-Mateus 250 mg Tab RxNorm: 063725 Tablet(s) PO No Start Date 06/13/2011 Inactive as directed Lipitor 20 mg Tab RxNorm: 625833 1 Tablet(s) PO QD No Start Date [...] completed Assessments Condition Codes Effectiv e Dates 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, UNCONTROLLED ICD-10: E10.9 ICD-9: 250.03 02/19/2019 Essential (primary) hypertension ICD -10: I10 ICD-9: 401.9 02/19/2019 Mixed hyperlipidemia ICD-10: E78.2 ICD-9: 272.4 02/19/2019 Other specified hypothyroidism ICD-1 0: E03.8 ICD-9: 244.9 02/19/2019 Kidney transplant status ICD-10: Z94 .0 ICD-9: V42.0 08/24/2018 Encounter for aftercare following other organ transpla nt ICD- 10: Z48.298 ICD-9: V58.44 08/24/2018 Other fdc (current) drug therapy ICD-10: Z79.899 ICD-9: V58.69 [...] Visit Reason For Visit Effective Dates Notes lab draw 02/19/2019 lab draw 08/24/2018 lab draw 06/29/2018 constipation 06/26/2018 is going through cycles of this lately, was able to have a bm today abdominal pain 02/06/2018 follow up 11/02/2017 stephanie alexisaac. well man exam (18-39 years) 07/27/2017 Wellness [...] Code Item Item Code Result Date MAGNESIUM 38555 MAGNESIUM 1.4 mEq/L 02/19/2019 GFR CALC 9234627 GFR Non Afr Amr 37 mL/min 02/19/2019 GFR CALC 7155802 GFR Afr Amr 45 mL/min 02/19/2019 LIPID GROUP 16168 Choles terol 250 mg/dL 02/19/2019 LIPID GROUP 67480 Trigly ceride 465 mg/dL 02/19/2019 LIPID GROUP 34066 HDL CH OLESTEROL 30 mg/dL 02/19/2019 LIPID GROUP 61414 Chol/H DL Ratio 8.33 ratio 02/19/2019 LIPID GROUP 44036 NON-HD L Chol 220 mg/dL 02/19/2019 LIPID GROUP 78595 LDL Ch olesterol N/A Trig >400 019 LIPID GROUP 82268 Fasting Unknown 02/19/2019 COMPREHENSIVE METABOLIC 16000 AST 20 U/L 02/19/2019 COMPREHENSIVE METABOLIC 51294 ALT 30 U/L 02/19/2019 COMPREHENSIVE METABOLIC 90928 BUN 27 mg/dL 02/19/2019 COMPREHENSIVE METABOLIC 91467 ALBUMIN 3.7 g/dL 02/19/2019 COMPREHENSIVE METABOLIC 61708 CHLORIDE 105 mmol/L 02/19/2019 COMPREHENSIVE METABOLIC 36571 Bili Total 0.5 mg/dL 02/19/2019 COMPREHENSIVE METABOLIC 74495 ALK PHOS 79 U/L 02/19/2019 COMPREHENSIVE METABOLIC 06327 SODIUM 137 mmol/L 02/19/2019 COMPREHENSIVE METABOLIC 55473 CREATININE 2.10 mg/dL 02/19/2019 COMPREHENSIVE METABOLIC 93608 CALCIUM 9.5 mg/dL 02/19/2019 COMPREHENSIVE METABOLIC 47539 POTASSIUM 4.2 mmol/L 02/19/2019 COMPREHENSIVE METABOLIC 86227 Total Protein 6.5 g/dL 02/19/2019 COMPREHENSIVE METABOLIC 56199 Glucose 202 mg/dL 02/19/2019 COMPREHENSIVE METABOLIC 35468 Bicarbonate 22 mmol/L 02/19/2019 COMPREHENSIVE METABOLIC 70435 AGAP 10 mmol/L 02/19/2019 LIPID GROUP 02397 Choles terol 320 mg/dL 08/27/2018 LIPID GROUP 82861 Trigly ceride 444 mg/dL 08/27/2018 LIPID GROUP 25400 HDL CH OLESTEROL 39 mg/dL 08/27/2018 LIPID GROUP 20259 Chol/H DL Ratio 8.21 ratio 08/27/2018 LIPID GROUP 92015 NON-HD L Chol 281 mg/dL 08/27/2018 LIPID GROUP 77766 LDL Ch olesterol N/A Trig >400 019 LIPID GROUP 40407 Fasting Unknown 08/27/2018 PHOSPHORUS 1984752 PHOSP HORUS 2.1 mg/dL 08/24/2018 PROTEIN/CREAT URINE WITH RATIO 08259|95959 U Protein 515 mg/dL 08/24/2018 PROTEIN/CREAT URINE WITH RATIO 41360|12607 U Creatinine 116 mg/dL 08/24/2018 PROTEIN/CREAT URINE WITH RATIO 00212|13683 Prot:Creat Rat 4440 mg/g 08/24/2018 MAGNESIUM 78918 MAGNESIUM 1.4 mEq/L 08/24/2018 GFR CALC 6417892 GFR Non Afr Amr 44 mL/min 08/24/2018 GFR CALC 7686612 GFR Afr Amr 53 mL/min 08/24/2018 [place] [address] Glucose TNP:Unknown Cancel Reason 08/24/2018 [place] [address] CREATININE TNP:Unknown Cancel Reason 08/24/2018 [place] [address] BUN TNP:Unknown Cancel Reason 08/24/2018 [place] [address] SODIUM TNP:Unknown Cancel Reason 08/24/2018 [place] [address] POTASSIUM TNP:Unknown Cancel Reason 08/24/2018 [place] [address] CHLORIDE TNP:Unknown Cancel Reason 08/24/2018 [place] [address] Bicarbonate TNP:Unknown Cancel Reason 08/24/2018 [place] [address] AGAP TNP:Unknown Cancel Reason 08/24/2018 [place] [address] CALCIUM TNP:Unknown Cancel Reason 08/24/2018 COMPREHENSIVE METABOLIC 22606 AST 21 U/L 08/24/2018 COMPREHENSIVE METABOLIC 62870 ALT 35 U/L 08/24/2018 COMPREHENSIVE METABOLIC 49818 BUN 25 mg/dL 08/24/2018 COMPREHENSIVE METABOLIC 04691 ALBUMIN 4.5 g/dL 08/24/2018 COMPREHENSIVE METABOLIC 70723 CHLORIDE 106 mmol/L 08/24/2018 COMPREHENSIVE METABOLIC 37759 Bili Total 0.4 mg/dL 08/24/2018 COMPREHENSIVE METABOLIC 39841 ALK PHOS 64 U/L 08/24/2018 COMPREHENSIVE METABOLIC 37016 SODIUM 141 mmol/L 08/24/2018 COMPREHENSIVE METABOLIC 68711 CREATININE 1.81 mg/dL 08/24/2018 COMPREHENSIVE METABOLIC 15850 CALCIUM 10.3 mg/dL 08/24/2018 COMPREHENSIVE METABOLIC 52120 POTASSIUM 3.4 mmol/L 08/24/2018 COMPREHENSIVE METABOLIC 66374 Total Protein 7.2 g/dL 08/24/2018 COMPREHENSIVE METABOLIC 91441 Glucose 101 mg/dL 08/24/2018 COMPREHENSIVE METABOLIC 12387 Bicarbonate 23 mmol/L 08/24/2018 COMPREHENSIVE METABOLIC 51083 AGAP 12 mmol/L 08/24/2018 UA W/MICR 48847 UA Urine Appear Normal 08/24/2018 UA W/MICR 58692 UA Prote in 3+ 08/24/2018 UA W/MICR 51827 UA Hemog lobin Trace 08/24/2018 UA W/MICR 41538 UA Gluco se 3+ 08/24/2018 UA W/MICR 69246 UA [place] es Negative 08/24/2018 UA W/MICR 47989 UA pH 6.0 08/24/2018 UA W/MICR 24911 U Spec G ravity 1.025 08/24/2018 UA W/MICR 50959 UA Bilir ubin Negative 08/24/2018 UA W/MICR 33646 UA Leuk Esteras Negative 08/24/2018 UA W/MICR 15103 UA Nitri te NEG 08/24/2018 UA W/MICR 51184 UA WBC/h pf 1 08/24/2018 UA W/MICR 20705 UA RBC a uto 12.9 /uL 08/24/2018 UA W/MICR 63673 UA RBC h pf 2 08/24/2018 UA W/MICR 54921 UA WBC a uto 5.9 /uL 08/24/2018 UA W/MICR 51006 UA SQ EP I auto 5.2 /uL 08/24/2018 UA W/MICR 85989 UA H Jamil t auto 0.10 /uL 08/24/2018 PROGRAF [id number] Prograf 7.3 ng/mL 08/24/2018 MICROALBUMIN URINE RANDOM 73397 U Microalbumin 3485.2 mg/L 08/24/2018 MICROALBUMIN URINE RANDOM 90233 U Creatinine 116 mg/dL 08/24/2018 MICROALBUMIN URINE RANDOM [address] ALB/CR Ratio 3004.5 mg/gCR 08/25/19 19 GLYCOSYLATED HEMOGLOBIN TEST 01209 Hgb A1c 79043-5 13.3 % 9 MEAN GLUC 3673540 Calc M sherron Gluc 335 mg/dL 06/29/2018 COMPREHENSIVE METABOLIC 72231 AST 17 U/L 02/06/2018 COMPREHENSIVE METABOLIC 41875 ALT 24 U/L 02/06/2018 COMPREHENSIVE METABOLIC 92654 BUN 24 mg/dL 02/06/2018 COMPREHENSIVE METABOLIC 12638 ALBUMIN 3.9 g/dL 02/06/2018 COMPREHENSIVE METABOLIC 31567 CHLORIDE 108 mmol/L 02/06/2018 COMPREHENSIVE METABOLIC 17269 Bili Total 0.6 mg/dL 02/06/2018 COMPREHENSIVE METABOLIC 38303 ALK PHOS 67 U/L 02/06/2018 COMPREHENSIVE METABOLIC 08678 SODIUM 140 mmol/L 02/06/2018 COMPREHENSIVE METABOLIC 95910 CREATININE 1.75 mg/dL 02/06/2018 COMPREHENSIVE METABOLIC 91117 CALCIUM 9.6 mg/dL 02/06/2018 COMPREHENSIVE METABOLIC 13417 POTASSIUM 3.8 mmol/L 02/06/2018 COMPREHENSIVE METABOLIC 24440 Total Protein 7.1 g/dL 02/06/2018 COMPREHENSIVE METABOLIC 42355 Glucose 62 mg/dL 02/06/2018 COMPREHENSIVE METABOLIC 58462 Bicarbonate 23 mmol/L 02/06/2018 COMPREHENSIVE METABOLIC 80929 AGAP 9 mmol/L 02/06/2018 GLYCOSYLATED HEMOGLOBIN TEST 42973 Hgb A1c 68411-3 13.0 % 8 GFR CALC 2897293 GFR Non Afr Amr 46 mL/min 02/06/2018 GFR CALC 4851595 GFR Afr Amr 55 mL/min 02/06/2018 MICROALBUMIN URINE RANDOM 46894 U Microalbumin 669.0 mg/L 02/06/2018 MICROALBUMIN URINE RANDOM 11358 U Creatinine 92 mg/dL 02/06/2018 MICROALBUMIN URINE RANDOM 13476 ALB/CR Ratio 727.2 mg/gCR 8 MEAN GLUC Calc M sherron Gluc 326 mg/dL 02/06/2018 GLYCOSYLATED HEMOGLOBIN TEST 20112 Hgb A1c 07679-9 14.3 % 6 THYROID STIMULATING HORMONE 56836 TSH 1.909 uIU/mL 6 MAGNESIUM 90050 MAGNESIUM 1.5 mEq/L 12/03/2015 GFR CALC 8573369 GFR Non Afr Amr 39 mL/min 12/03/2015 GFR CALC 0312498 GFR Afr Amr 48 mL/min 12/03/2015 MEAN GLUC Mean G lucose 364 mg/dL 12/03/2015 COMPREHENSIVE METABOLIC 35842 AST 34 U/L 12/03/2015 COMPREHENSIVE METABOLIC 18716 ALT 78 U/L 12/03/2015 COMPREHENSIVE METABOLIC 91225 BUN 29 mg/dL 12/03/2015 COMPREHENSIVE METABOLIC 96927 ALBUMIN 4.3 g/dL 12/03/2015 COMPREHENSIVE METABOLIC 08799 CHLORIDE 93 mmol/L 12/03/2015 COMPREHENSIVE METABOLIC 33363 Bili Total 0.7 mg/dL 12/03/2015 COMPREHENSIVE METABOLIC 58078 ALK PHOS 83 U/L 12/03/2015 COMPREHENSIVE METABOLIC 37034 SODIUM 125 mmol/L 12/03/2015 COMPREHENSIVE METABOLIC 80457 CREATININE 2.01 mg/dL 12/03/2015 COMPREHENSIVE METABOLIC 39220 CALCIUM 9.8 mg/dL 12/03/2015 COMPREHENSIVE METABOLIC 75509 POTASSIUM 4.3 mmol/L 12/03/2015 COMPREHENSIVE METABOLIC 33434 Total Protein 7.3 g/dL 12/03/2015 COMPREHENSIVE METABOLIC 49273 Glucose 542 mg/dL 12/03/2015 COMPREHENSIVE METABOLIC 50647 Bicarbonate 23 mmol/L 12/03/2015 COMPREHENSIVE METABOLIC 45933 AGAP 9 mmol/L 12/03/2015 COMPREHENSIVE METABOLIC 53624 AST 31 U/L 07/30/2013 COMPREHENSIVE METABOLIC 41959 ALT 52 IU/L 07/30/2013 COMPREHENSIVE METABOLIC 63894 BUN 26 MG/DL 07/30/2013 COMPREHENSIVE METABOLIC 12584 ALBUMIN 4.9 GM/DL 07/30/2013 COMPREHENSIVE METABOLIC 17445 CHLORIDE 108 MMOL/L 07/30/2013 COMPREHENSIVE METABOLIC 50097 BILI TOT 0.4 MG/DL 07/30/2013 COMPREHENSIVE METABOLIC 72876 ALK PHOS 68 U/L 07/30/2013 COMPREHENSIVE METABOLIC 81665 SODIUM 138 MMOL/L 07/30/2013 COMPREHENSIVE METABOLIC 24047 CREATININE 2.02 MG/DL 07/30/2013 COMPREHENSIVE METABOLIC 25473 CALCIUM 10.3 MG/DL 07/30/2013 COMPREHENSIVE METABOLIC 20847 POTASSIUM 5.0 MMOL/L 07/30/2013 COMPREHENSIVE METABOLIC 17951 PROT TOT 7.3 GM/DL 07/30/2013 COMPREHENSIVE METABOLIC 98699 Glucose 89 MG/DL 07/30/2013 COMPREHENSIVE METABOLIC 19543 BICARB 24 MMOL/L 07/30/2013 COMPREHENSIVE METABOLIC 41533 ANION GAP 6 MEQ/L 07/30/2013 GFR CALC 9105710 GFR AA 48.0L ML/MIN 07/30/2013 GFR CALC 3420970 GFR NON -AA 40.0L ML/MIN 4 COMPLETE BLOOD COUNT 3552360 WBC 7.9 10e9/L 07/30/2013 COMPLETE BLOOD COUNT 3832661 RBC 4.94 10e12/L 4 COMPLETE BLOOD COUNT 2034858 HGB 14.0 g/dL 07/30/2013 COMPLETE BLOOD COUNT 7604790 HCT DET 41.5 % 07/30/2013 COMPLETE BLOOD COUNT 6117677 MCV 84.0 fL 07/30/2013 COMPLETE BLOOD COUNT 3974607 MCH 28.3 pg 07/30/2013 COMPLETE BLOOD COUNT 3320990 MCHC 33.7 g/dL 07/30/2013 COMPLETE BLOOD COUNT 8201184 PLT 176 10e9/L 07/30/2013 COMPLETE BLOOD COUNT 5446609 MPV 11.8 fL 07/30/2013 COMPLETE BLOOD COUNT 6337250 CLAYTON % 75.4 % 07/30/2013 COMPLETE BLOOD COUNT 0388073 LY % 13.7 % 07/30/2013 COMPLETE BLOOD COUNT 3130137 MON % 8.9 % 07/30/2013 COMPLETE BLOOD COUNT 1692736 EOS % 1.7 % 07/30/2013 COMPLETE BLOOD COUNT 9278223 BASO % 0.3 % 07/30/2013 COMPLETE BLOOD COUNT 4647706 RDW 13.4 % 07/30/2013 COMPLETE BLOOD COUNT 3165347 ABS CLAYTON 5.96 10e9/L 07/30/2013 COMPLETE BLOOD COUNT 8375028 ABS LYMPH 1.08 10e9/L 07/30/2013 COMPLETE BLOOD COUNT 2390761 ABS MONO 0.70 10e9/L 07/30/2013 COMPLETE BLOOD COUNT 5791154 ABS EOS 0.13 10e9/L 07/30/2013 COMPLETE BLOOD COUNT 0716646 ABS BASO 0.02 10e9/L 07/30/2013 COMPLETE BLOOD COUNT 0796807 RDW-SD 40.2 fL 07/30/2013 C-REACTIVE PROTEIN (CRP) QUANT 90422 CRP 0.2 MG/DL 07/30/2013 CANCEL 6813995 CANCEL FOOTNOTE 05/23/2012 PEND CHEM PEND C HEM FOOTNOTE 05/22/2012 COMPREHENSIVE METABOLIC 60754 AST 61 U/L 05/21/2012 COMPREHENSIVE METABOLIC 86483 ALT 106 U/L 05/21/2012 COMPREHENSIVE METABOLIC 88300 BUN 33 MG/DL 05/21/2012 COMPREHENSIVE METABOLIC 25119 ALBUMIN 5.0 GM/DL 05/21/2012 COMPREHENSIVE METABOLIC 93828 CHLORIDE 89 MMOL/L 05/21/2012 COMPREHENSIVE METABOLIC 74473 BILI TOT 0.6 MG/DL 05/21/2012 COMPREHENSIVE METABOLIC 30484 ALK PHOS 129 U/L 05/21/2012 COMPREHENSIVE METABOLIC 84618 SODIUM 120 MMOL/L 05/21/2012 COMPREHENSIVE METABOLIC 61127 CREATININE 2.23 MG/DL 05/21/2012 COMPREHENSIVE METABOLIC 24776 CALCIUM 9.8 MG/DL 05/21/2012 COMPREHENSIVE METABOLIC 22629 POTASSIUM 5.3 MMOL/L 05/21/2012 COMPREHENSIVE METABOLIC 95632 PROT TOT 7.8 GM/DL 05/21/2012 COMPREHENSIVE METABOLIC 24886 Glucose 789 MG/DL 05/21/2012 COMPREHENSIVE METABOLIC 06963 BICARB 20 MMOL/L 05/21/2012 COMPREHENSIVE METABOLIC 11707 ANION GAP 11 MMOL/L 05/21/2012 GFR CALC 8546293 GFR AA 43.0L ML/MIN 05/21/2012 GFR CALC 6304237 GFR NON -AA 36.0L ML/MIN 2 THYROID STIMULATING HORMONE 34406 TSH 1.499 uIU/ML 1 FREE T4 25802 FREE T4 1.15 NG/DL 01/27/2011 Review of Systems System Result Effective Dates Constitutional No fever 06/26/2018 Constitutional No fatigue [...] mellitus type 2 04/05/2017 Endocrine No goiter 01/0 02/2017 Endocrine No hyperglycemia 06/20/2016 Endocrine No [...] - General Neurologic mental status Overall: alert 201 3 None Full Exam - General Neurologic [...] Procedures Procedure Codes Date ROUTINE VENIPUNCTURE CPT-4: 19530 02/19/2019 METABOLIC PANEL TOTA L CA CPT-4: 33989 02/19/2019 MICROALBUMIN, QUANTI TATIVE CPT-4: 31380 02/19/2019 LIPID PANEL CPT-4: 41325 02/19/2019 COMPREHEN METABOLIC PANEL CPT-4: 79171 02/19/2019 ASSAY OF MAGNESIUM CPT- 4: 21771 02/19/2019 METABOLIC PANEL TOTA L CA CPT-4: 72826 08/24/2018 COMPREHEN METABOLIC PANEL CPT-4: 53164 08/24/2018 ASSAY OF MAGNESIUM CPT- 4: 43027 08/24/2018 MICROALBUMIN QUANTIT ATIVE CPT-4: 18171 08/24/2018 PROTEIN/CREAT URINE WITH RATIO CPT-4: 04512|73267 08/24/2018 PHOSPHORUS CPT-4: 1264811 08/24/2018 LIPID PANEL CPT-4: 20046 08/24/2018 ROUTINE VENIPUNCTURE CPT-4: 11351 06/29/2018 A1C HPLC CPT-4: 54772 06/29/2018 URINALYSIS NONAUTO W /O SCOPE CPT-4: 45794 02/06/2018 URINE CULTURE/ COLON Y COUNT CPT-4: 81706 02/06/2018 MICROALBUMIN QUANTIT ATIVE CPT-4: 42102 02/06/2018 ROUTINE VENIPUNCTURE CPT-4: 20120 02/06/2018 COMPREHEN METABOLIC PANEL CPT-4: 30766 02/06/2018 A1C HPLC CPT-4: 63821 02/06/2018 ROUTINE VENIPUNCTURE CPT-4: 56003 11/02/2017 COMPREHEN METABOLIC PANEL CPT-4: 93613 11/02/2017 A1C HPLC CPT-4: 84488 11/02/2017 TDAP VACCINE 7 YRS/> IM CPT-4: 87455 07/27/2017 IMMUNIZATION ADMIN CPT- 4: 68849 07/27/2017 URINALYSIS NONAUTO W /O SCOPE CPT-4: 60785 02/16/2016 URINE CULTURE/ COLON Y COUNT CPT-4: 27488 02/16/2016 PRESCRIP TRANSMIT A ERX SY CPT-4: G8553 02/16/2016 ROUTINE VENIPUNCTURE CPT-4: 54708 12/03/2015 ASSAY THYROID STIM H ORMONE CPT-4: 80034 12/03/2015 COMPREHEN METABOLIC PANEL CPT-4: 64389 12/03/2015 A1C HPLC CPT-4: 00691 12/03/2015 ASSAY OF MAGNESIUM CPT- 4: 83318 12/03/2015 URINALYSIS NONAUTO W /O SCOPE CPT-4: 04976 12/03/2015 URINE CULTURE/ COLON Y COUNT CPT-4: 13473 12/03/2015 URINALYSIS NONAUTO W /O SCOPE CPT-4: 17676 07/30/2013 URINE CULTURE/ COLON Y COUNT CPT-4: 17939 07/30/2013 ROUTINE VENIPUNCTURE CPT-4: 73294 07/30/2013 COMPLETE CBC W/AUTO DIFF WBC CPT-4: 95516 07/30/2013 COMPREHEN METABOLIC PANEL CPT-4: 92713 07/30/2013 C-REACTIVE PROTEIN CPT- 4: 07677 07/30/2013 ROUTINE VENIPUNCTURE CPT-4: 76977 08/20/2012 ASSAY OF FREE THYROXINE CPT-4: 56636 08/20/2012 ASSAY THYROID STIM H ORMONE CPT-4: 76592 08/20/2012 COMPREHEN METABOLIC PANEL CPT-4: 35739 08/20/2012 COMPLETE CBC W/AUTO DIFF WBC CPT-4: 65101 08/20/2012 LIPID PANEL CPT-4: 85411 08/20/2012 A1C GLYCOSYLATED HEM OGLOBIN TEST CPT-4: 43312 08/20/2012 ASSAY, GLUCOSE, BLOO D QUANT CPT-4: 89363 06/21/2012 ASSAY, GLUCOSE, BLOO D QUANT CPT-4: 98415 05/21/2012 ROUTINE VENIPUNCTURE CPT-4: 98902 05/21/2012 COMPREHEN METABOLIC PANEL CPT-4: 21325 05/21/2012 A1C GLYCOSYLATED HEM OGLOBIN TEST CPT-4: 46012 05/21/2012 CURRENT SMKLESS [employer]BA [employer]OGRAPH[employer]OO[employer] 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 CPT-4: G8456 06/14/2011 PT VIS DOC USE EHR C ER ATCB CPT-4: G8447 06/14/2011 PRESCRIP TRANSMIT A ERX SY CPT-4: G8553 06/14/2011 PT VIS DOC USE EHR C ER ATCB CPT-4: G8447 03/03/2011 PRESCRIP TRANSMIT A ERX SY CPT-4: G8553 03/03/2011 ROUTINE VENIPUNCTURE CPT-4: 47822 01/27/2011 ASSAY OF FREE THYROXINE CPT-4: 35695 01/27/2011 ASSAY THYROID STIM H ORMONE CPT-4: 41595 01/27/2011 PT VIS DOC USE EHR C ER ATCB CPT-4: G8447 01/27/2011 PRESCRIP TRANSMIT A ERX SY CPT-4: G8553 01/27/2011 TOBACCO USE ASSESSED CPT-4: 1000F 12/02/2010 INCOMPLETE DOC PT ON MEDS CPT-4: G8429 12/02/2010 PT VIS DOC USE EHR C ER ATCB CPT-4: G8447 12/02/2010 PRESCRIP TRANSMIT A ERX SY CPT-4: G8553 12/02/2010 Vital Signs Date Vital 06/26/2018 Blood Pressure 1: 140/90 Code: 8480-6 Heart Rate 1: 83 bpm Respiratory Rate: 18 bpm SpO2: 97% Temperature: 36.4 (C ) / 97.5 (F) Weight: 259 lbs 02/06/2018 Blood Pressure 1: 158/90 Code: 8480-6 BMI: 34.3 Code: 91123-8 Heart Rate 1: 78 bpm Height: 6'1" Respiratory Rate: 20 bpm SpO2: 98% Temperature: 36.6 (C ) / 97.8 (F) Weight: 260 lbs 11/02/2017 Blood Pressure 1: 134/92 Code: 8480-6 BMI: 32.3 Code: 41918-9 Heart Rate 1: 72 bpm Height: 6'1" SpO2: 98% Temperature: 36.4 (C ) / 97.5 (F) Weight: 245 lbs 07/27/2017 Blood Pressure 1: 136/64 Code: 8480-6 BMI: 30.9 Code: 23767-6 Heart Rate 1: 78 bpm Height: 6'1" Respiratory Rate: 22 bpm SpO2: 98% Temperature: 36.4 (C ) / 97.6 (F) Weight: 234 lbs 04/05/2017 Blood Pressure 1: 126/90 Code: 8480-6 BMI: 33.5 Code: 01278-4 Heart Rate 1: 76 bpm Height: 6'1" Respiratory Rate: 20 bpm SpO2: 97% Temperature: 37.0 (C ) / 98.6 (F) Weight: 254 lbs 06/20/2016 Blood Pressure 1: 122/74 Code: 8480-6 BMI: 35.2 Code: 09408-7 Heart Rate 1: 80 bpm Height: 6'1" Respiratory Rate: 20 bpm SpO2: 97% Temperature: 36.9 (C ) / 98.5 (F) Weight: 267 lbs 02/16/2016 Blood Pressure 1: 136/82 Code: 8480-6 BMI: 36.4 Code: 28423-1 Heart Rate 1: 66 bpm Height: 6'1" Respiratory Rate: 18 bpm SpO2: 96% Temperature: 36.4 (C ) / 97.6 (F) Weight: 276 lbs 12/03/2015 Blood Pressure 1: 122/86 Code: 8480-6 BMI: 39.2 Code: 73061-8 Heart Rate 1: 76 bpm Height: 6' Respiratory Rate: 20 bpm Temperature: 37.1 (C ) / 98.7 (F) Weight: 289 lbs 06/24/2015 Blood Pressure 1: 136/84 Code: 8480-6 BMI: 40.7 Code: 70603-3 Heart Rate 1: 84 bpm Height: 6' Respiratory Rate: 20 bpm Temperature: 36.9 (C ) / 98.4 (F) Weight: 300 lbs 06/11/2015 Blood Pressure 1: 160/82 Code: 8480-6 BMI: 40.4 Code: 61614-8 Heart Rate 1: 82 bpm Height: 6' Respiratory Rate: 22 bpm Temperature: 36.5 (C ) / 97.7 (F) Weight: 298 lbs 07/17/2014 Blood Pressure 1: 132/84 Code: 8480-6 BMI: 41.0 Code: 15978-7 Heart Rate 1: 76 bpm Height: 6'1" Respiratory Rate: 20 bpm Temperature: 36.9 (C ) / 98.4 (F) Weight: 311 lbs 10/31/2013 Blood Pressure 1: 132/80 Code: 8480-6 BMI: 41.2 Code: 05314-7 Heart Rate 1: 84 bpm Height: 6'1" Respiratory Rate: 22 bpm Temperature: 36.1 (C ) / 97.0 (F) Weight: 312 lbs 08/01/2013 Blood Pressure 1: 142/86 Code: 8480-6 BMI: 42.4 Code: 26493-5 Heart Rate 1: 84 bpm Height: 6' [...] 1: 156/108 Code: 8480-6 BMI: 41.9 Code: 86850-6 Heart Rate 1: 92 bpm Height: 6' Respiratory Rate: 20 bpm Temperature: 36.9 (C ) / 98.4 (F) Weight: 309 lbs 02/27/2013 Blood Pressure 1: 162/114 Code: 8480-6 BMI: 41.0 Code: 56420-3 Heart Rate 1: 84 bpm Height: 6' Respiratory Rate: 20 bpm Temperature: 36.7 (C ) / 98.0 (F) Weight: 302 lbs 01/01/2013 Blood Pressure 1: 138/86 Code: 8480-6 BMI: 41.0 Code: 97291-7 Heart Rate 1: 76 bpm Height: 6' Respiratory Rate: 20 bpm Temperature: 36.7 (C ) / 98.0 (F) Weight: 302 lbs 11/27/2012 Blood Pressure 1: 136/92 Code: 8480-6 BMI: 41.2 Code: 43925-6 Heart Rate 1: 80 bpm Height: 6' Respiratory Rate: 20 bpm Temperature: 36.6 (C ) / 97.8 (F) Weight: 304 lbs 08/28/2012 Blood Pressure 1: 126/80 Code: 8480-6 BMI: 41.8 Code: 85763-4 Heart Rate 1: 80 bpm Height: 6' Respiratory Rate: 20 bpm Temperature: 36.4 (C ) / 97.6 (F) Weight: 308 lbs 07/03/2012 Blood Pressure 1: 114/80 Code: 8480-6 BMI: 42.3 Code: 74719-9 Heart Rate 1: 72 bpm Height: 6' Respiratory Rate: 20 bpm Temperature: 36.6 (C ) / 97.9 (F) Weight: 312 lbs 06/21/2012 Blood Pressure 1: 152/100 Code: 8480-6 BMI: 43.3 Code: 92436-3 Heart Rate 1: 72 bpm Height: 6' Temperature: 36.8 (C ) / 98.2 (F) Weight: 319 lbs 05/30/2012 Blood Pressure 1: 122/78 Code: 8480-6 BMI: 43.0 Code: 75499-6 Heart Rate 1: 72 bpm Height: 6' Respiratory Rate: 20 bpm Temperature: 36.7 (C ) / 98.0 (F) Weight: 317 lbs 05/21/2012 Blood Pressure 1: 126/94 Code: 8480-6 BMI: 44.2 Code: 73718-7 Heart Rate 1: 92 bpm Height: 6' Respiratory Rate: 20 bpm Temperature: 36.6 (C ) / 97.9 (F) Weight: 326 lbs 01/24/2012 Blood Pressure 1: 122/90 Code: 8480-6 BMI: 44.5 Code: 18413-9 Heart Rate 1: 76 bpm Height: 6' Respiratory Rate: 20 bpm Temperature: 36.8 (C ) / 98.2 (F) Weight: 328 lbs 09/21/2011 Blood Pressure 1: 116/80 Code: 8480-6 BMI: 44.1 Code: 45268-0 Heart Rate 1: 92 bpm Height: 6' Respiratory Rate: 20 bpm Temperature: 36.7 (C ) / 98.1 (F) Weight: 325 lbs 09/12/2011 Blood Pressure 1: 166/110 Code: 8480-6 BMI: 45.0 Code: 79146-4 Heart Rate 1: 80 bpm Height: 6' Respiratory Rate: 20 bpm Temperature: 36.5 (C ) / 97.7 (F) Weight: 332 lbs 06/14/2011 Blood Pressure 1: 142/84 Code: 8480-6 BMI: 45.6 Code: 70157-6 Heart Rate 1: 104 bpm Height: 6' Respiratory Rate: 20 bpm Temperature: 36.4 (C ) / 97.5 (F) Weight: 336 lbs 03/03/2011 Blood Pressure 1: 130/96 Code: 8480-6 Heart Rate 1: 86 bpm Temperature: 36.1 (C) / 97.0 (F) Weight: 327 lbs 01/27/2011 Blood Pressure 1: 142/96 Code: 8480-6 BMI: 42.0 Code: 17752-7 Heart Rate 1: 72 bpm Height: 6'2" Respiratory Rate: 20 bpm Temperature: 36.7 (C ) / 98.0 (F) Weight: 327 lbs 12/02/2010 Blood Pressure 1: 134/86 Code: 8480-6 Heart Rate 1: 72 bpm Temperature: 36.7 (C) / 98.1 (F) Weight: 323 lbs Functional Status No Functional Status data History of Present Illness Symptom Name Status Resu lt Effective Date Notes Quality intermittent 06/26/2018 None Quality worsening 06/26/2018 [...] chr onic 04/05/2017 None hypertension Quality marky lopez hypertension 04/05/2017 None hyperlipidemia Labs HDL: 27 [...] 300 12/03/2015 None foot pain Location on le th sides 06/24/2015 None foot pain Quality [...] 11/27/2012 in elbow--seen in Urgent care in [place] and started on abx cellulitis Onset and [...] and Resolution ongoing 06/21/2012 been out of [facility] didn't have diabetes mellitus Blood glucose [...] Encounters Encounter Performer Loca tion Codes Date ([id number]) NURSE/OUTPAT IENT VISIT EST Diagnosis: 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, 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] Diagnosis: Essential (primary) hypertension[ICD10: I10] Diagnosis: Other specified hypothyroidism[ICD10: E03.8] Diagnosis: Mixed hyperlipidemia[ICD10: E78.2] Galina LAGUERRE CPT-4: 63361 02/19/2019 ([id number]) NURSE/OUTPAT IENT VISIT EST Diagnosis: Kidney transplant status[ICD10: Z94.0] 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] Diagnosis: Other fdc (current) drug therapy[ICD10: Z79.899] Diagnosis: Encounter for aftercare following other organ transplant[ICD10: Z48.298] Diagnosis: Mixed hyperlipidemia[ICD10: E78.2] Galina ARTEAGA [employer] CPT-4: 26841 08/24/2018 ([id number]) NURSE/OUTPAT IENT VISIT EST Diagnosis: Type 2 diabetes mellitus with diabetic neuropathy, unspecified[ICD10: E11.40] Diagnosis: Type 2 diabetes mellitus with hyperglycemia[ICD10: E11.65] 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] Diagnosis: Essential (primary) hypertension[ICD10: I10] Galina ARTEAGA [employer] CPT-4: 90589 06/29/2018 ([id number]) OFFICE/OUTPA TIENT VISIT EST Diagnosis: Slow transit constipation[ICD10: K59.01] Diagnosis: Epigastric pain[ICD10: R10.13] Diagnosis: Type 2 diabetes mellitus with hyperglycemia[ICD10: E11.65] Coleen SMITH [employer] CPT-4: 89667 06/26/2018 ([id number]) OFFICE/OUTPA TIENT VISIT EST Diagnosis: Right lower quadrant pain[ICD10: R10.31] Diagnosis: Type 2 diabetes mellitus with diabetic neuropathy, unspecified[ICD10: E11.40] Coleen SMITH [employer] CPT-4: 56347 02/06/2018 ([id number]) OFFICE/OUTPA TIENT VISIT EST Diagnosis: Type 2 diabetes mellitus with hyperglycemia[ICD10: E11.65] Diagnosis: Mixed hyperlipidemia[ICD10: E78.2] Diagnosis: Essential (primary) hypertension[ICD10: I10] Coleen CHENEY [employer] CPT-4: 95005 11/02/2017 ([id number]) PREV VISIT E ST AGE 18-39 Diagnosis: Encounter for general adult medical examination with abnormal findings[ICD10: Z00.01] Diagnosis: Abrasion of right hand, initial encounter[ICD10: S60.511A] 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] Coleen SMITH [facility] CPT-4: 46605 07/27/2017 OFFICE/OUTPATIENT SIT EST 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] Diagnosis: Tinea pedis[ICD10: B35.3] Coleen SMITH [facility] CPT-4: 80769 04/05/2017 ([id number]) OFFICE/OUTPA TIENT VISIT EST Diagnosis: 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, 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] Diagnosis: Mixed hyperlipidemia[ICD10: E78.2] Diagnosis: Essential (primary) hypertension[ICD10: I10] Galina MEJIALINE Meron ARTEAGA [facility] CPT-4: 31997 06/20/2016 ([id number]) OFFICE/OUTPA TIENT VISIT EST Diagnosis: Urinary tract infection, site not specified[ICD10: N39.0] Missy Dc GALINA Meron SMITH [facility] CPT-4: 06675 02/16/2016 ([id number]) OFFICE/OUTPA TIENT VISIT EST Diagnosis: Type 2 diabetes mellitus with hyperglycemia[ICD10: E11.65] Diagnosis: Cramp and spasm[ICD10: R25.2] Diagnosis: Hematuria, unspecified[ICD10: R31.9] Galina Luis MEJIALINE Meron [facility] CPT-4: 14502 12/03/2015 OFFICE/OUTPATIENT SIT EST Diagnosis: Type 2 diabetes mellitus with diabetic neuropathy, unspecified[ICD10: E11.40] Alejandra Billy GALINA SMITH [facility] CPT-4: 43307 06/24/2015 ([id number]) OFFICE/OUTPA TIENT VISIT EST Diagnosis: Acute sinusitis, unspecified[ICD10: J01.90] Diagnosis: Otitis media, unspecified, bilateral[ICD10: H66.93] Galina Luis GALINA Meron [facility] CPT-4: 66949 06/11/2015 ([id number]) OFFICE/OUTPA TIENT VISIT EST Diagnosis: 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[ICD9: 250.01] Diagnosis: HYPERTENSION[ICD9: 401.9] Diagnosis: HYPERLIPIDEMIA NEC/NOS[ICD9: 272.4] Diagnosis: KIDNEY TRANSPLANT STATUS[ICD9: V42.0] Galina ARTEAGA [facility] CPT-4: 84753 07/17/2014 ([id number]) OFFICE/OUTPA TIENT VISIT EST Diagnosis: 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[ICD9: 250.01] Diagnosis: HYPERTENSION[ICD9: 401.9] Galina SMITH [facility] CPT-4: 95664 10/31/2013 ([id number]) OFFICE/OUTPA TIENT VISIT EST Diagnosis: 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I[ICD9: 250.00] Diagnosis: HYPERTENSION[ICD9: 401.9] Diagnosis: HYPERLIPIDEMIA NEC/NOS[ICD9: 272.4] Galina CASANOVAR [facility] CPT-4: 68246 08/01/2013 OFFICE/OUTPATIENT SIT EST Diagnosis: HEMATURIA NOS[ICD9: 599.70] Diagnosis: Abdominal pain, acute, right lower quadrant[ICD9: 789.03] Diagnosis: KIDNEY TRANSPLANT STATUS[ICD9: V42.0] Alejandra Santiagoleonelwill GALINA RIVAS [facility] CPT-4: 63835 07/30/2013 ([id number]) OFFICE/OUTPA TIENT VISIT EST Diagnosis: Uncontrolled hypertension[ICD9: 401.9] Diagnosis: BRIEF DEPRESSIVE REACT[ICD9: 309.0] Galina CASANOVAR [facility] CPT-4: 54085 05/30/2013 ([id number]) OFFICE/OUTPA TIENT VISIT EST Diagnosis: HYPERTENSION[ICD9: 401.9] Diagnosis: Anticipatory grieving[ICD9: 309.0] Galina ROD NDER [employer] [facility] CPT-4: 15267 04/29/2013 ([id number]) OFFICE/OUTPA TIENT VISIT EST Diagnosis: 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I, UNCONTROLLED[ICD9: 250.02] Diagnosis: HYPERTENSION[ICD9: 401.9] Diagnosis: HYPOTHYROIDISM[ICD9: 244.9] Diagnosis: KIDNEY TRANSPLANT STATUS[ICD9: V42.0] Galina ASENCIO SusuKarol MARCEL ARTEAGA [facility] CPT-4: 54147 02/27/2013 OFFICE/OUTPATIENT SIT EST Diagnosis: Paronychia[ICD9: 681.9] Diagnosis: ONYCHOMYCOSIS[ICD9: 110.1] Viky DENNISONQUELINE SusuKarol [facility] CPT-4: 26902 01/01/2013 ([id number]) OFFICE/OUTPA TIENT VISIT EST Diagnosis: 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I, UNCONTROLLED[ICD9: 250.02] Diagnosis: HYPERLIPIDEMIA NEC/NOS[ICD9: 272.4] Diagnosis: HYPERTENSION[ICD9: 401.9] Diagnosis: KIDNEY TRANSPLANT STATUS[ICD9: V42.0] Diagnosis: HYPOTHYROIDISM[ICD9: 244.9] Galina ASENCIO SusuKarol [facility] CPT-4: 73286 11/27/2012 ([id number]) OFFICE/OUTPA TIENT VISIT EST Diagnosis: 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I[ICD9: 250.00] Diagnosis: HYPOTHYROIDISM[ICD9: 244.9] Diagnosis: HYPERLIPIDEMIA NEC/NOS[ICD9: 272.4] Diagnosis: HYPERTENSION[ICD9: 401.9] Galina Chance [facility] CPT-4: 98466 08/28/2012 ([id number]) OFFICE/OUTPA TIENT VISIT EST Diagnosis: HYPOTHYROIDISM[ICD9: 244.9] Diagnosis: 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I, UNCONTROLLED[ICD9: 250.02] Diagnosis: HYPERLIPIDEMIA NEC/NOS[ICD9: 272.4] Diagnosis: KIDNEY TRANSPLANT STATUS[ICD9: V42.0] Diagnosis: HYPERTENSION[ICD9: 401.9] Galina Chance [facility] CPT-4: 58757 08/20/2012 OFFICE/OUTPATIENT SIT EST Diagnosis: 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I, UNCONTROLLED[ICD9: 250.02] Diagnosis: HYPERTENSION[ICD9: 401.9] Galina Chance [facility] CPT-4: 49761 07/03/2012 OFFICE/OUTPATIENT SIT EST Diagnosis: 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I, UNCONTROLLED[ICD9: 250.02] Diagnosis: HYPERTENSION[ICD9: 401.9] Galina SMITH [facility] CPT-4: 60622 06/21/2012 OFFICE/OUTPATIENT SIT EST Diagnosis: 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I, UNCONTROLLED[ICD9: 250.02] Diagnosis: HYPERTENSION[ICD9: 401.9] Diagnosis: HYPERLIPIDEMIA NEC/NOS[ICD9: 272.4] Diagnosis: KIDNEY TRANSPLANT STATUS[ICD9: V42.0] Galina [facility] CPT-4: 11552 05/30/2012 ([id number]) OFFICE/OUTPA TIENT VISIT EST Diagnosis: HYPERTENSION[ICD9: 401.9] Diagnosis: VISUAL DISTURBANCE[ICD9: 368.9] Galina SMITH [facility] CPT-4: 50056 05/21/2012 ([id number]) OFFICE/OUTPA TIENT VISIT EST Diagnosis: HYPERTENSION[ICD9: 401.9] Diagnosis: HYPOTHYROIDISM[ICD9: 244.9] Diagnosis: KIDNEY TRANSPLANT STATUS[ICD9: V42.0] Galina [facility] CPT-4: 97877 01/24/2012 OFFICE/OUTPATIENT SIT EST Diagnosis: DIZZINESS/VERTIGO[ICD9: 780.4] Diagnosis: HYPERTENSION[ICD9: 401.9] Galina [facility] CPT-4: 04456 09/21/2011 ([id number]) OFFICE/OUTPA TIENT VISIT EST Diagnosis: HYPERTENSION[ICD9: 401.9] Diagnosis: HYPOTHYROIDISM[ICD9: 244.9] Diagnosis: HYPERLIPIDEMIA NEC/NOS[ICD9: 272.4] Diagnosis: KIDNEY TRANSPLANT STATUS[ICD9: V42.0] Galina [facility] CPT-4: 93038 09/12/2011 OFFICE/OUTPATIENT SIT EST Diagnosis: HYPOTHYROIDISM[ICD9: 244.9] Diagnosis: HYPERTENSION[ICD9: 401.9] Diagnosis: CEPHALGIA[ICD9: 784.0] Galina SMITH [facility] CPT-4: 46868 06/14/2011 OFFICE/OUTPATIENT SIT EST Diagnosis: HYPERTENSION[ICD9: 401.9] Diagnosis: PHARYNGITIS, ACUTE[ICD9: 462] Diagnosis: HYPOTHYROIDISM[ICD9: 244.9] Galina SMITH DO [employer] CPT-4: 36790 03/03/2011 OFFICE/OUTPATIENT SIT EST Diagnosis: HYPOTHYROIDISM[ICD9: 244.9] Diagnosis: KIDNEY TRANSPLANT STATUS[ICD9: V42.0] Diagnosis: HYPERTENSION[ICD9: 401.9] Diagnosis: SINUSITIS, ACUTE[ICD9: 461.9] Galinamarino SMITH DO [employer] CPT-4: 18784 01/27/2011 ([id number]) OFFICE/OUTPA TIENT VISIT EST Galina ARTEAGA [employer] CPT-4: 19251 12/02/2010 Plan of Care Planned Activity Notes C odes Status Date Appointment: Galina Smith WPtel: [address] [place] [address] LAB 02/19/2019 Appointment: Coleen Frey [address] had 2 flat tires this morning. NO SHOW - FORGIVEN 02/19/2019 Appointment: Galina Smith WPtel: [address] [place] [address] LAB 08/24/2018 Appointment: Galina Smith WPtel: [address] [place] [address] LAB 06/29/2018 Visit Diagnosis Plan: Epigastric pain [...] he had labs done in dec at [facility]. will obtain lab results and order additional labs as needed. ICD-9 : 250.02 ICD-10 : E11.65 06/26/2018 Appointment: Coleen Frey [address] [place], [place] [id number] ACUTE ILLNESS 06/26/2018 Visit Diagnosis [...] ICD-10 : R10.31 02/06/2018 Appointment: Coleen Frey [address] [place], [place] [phone] ACUTE ILLNESS 02/06/2018 Patient Education: Patient Medication [...] ICD-10 : E11.65 11/02/2017 Appointment: Coleen Frey [address] [place], [place] [phone] FOLLOW UP 11/02/2017 Patient Education: Patient Medication Summary Completed 11/02/2017 Visit Diagnosis Plan: Abrasion of right hand, initial encounter Discussion: keflex prescribed for infect ion. instructed patient to call or rtc next week if no improvement. keep area clean and dry. ICD-9 : 914.0 ICD-10 : S60.511A 07/27/2017 Visit Diagnosis Plan: Encounter for [facility] adult medical examination with abnormal [...] : E11.59 07/27/2017 Appointment: Coleen Frey [address] [place], [place] [phone] Annual Well Visit 07/27/2017 Patient Education: Patient [...] : B35.3 04/05/2017 App[facility]ment[id number] [facility] 04/05/2017 Patient Education: Patient Medication Summary Completed 04/05/2017 Patient Education: Patient Medication Summary Completed 04/05/2017 Care Plan: CBC Pending 04/05/2017 Care Plan: LIPID PANEL LOINC : 22895-3 Pending 04/05/2017 Care Plan: COMPREHEN METABOLIC PANEL LOINC : 98029-1 Pending 04/05/2017 Visit Plan: Patient admits that [...] scale given 06/20/2016 Appointment: Galina Smith WPtel: [address] [place], [place] [phone] 06/16 lm-sp 06/20 lm ~sl FOLLOW UP 06/20/2016 Patient Education: Patient Medication Summary Completed 06/20/2016 Patient Education: Patient Medication Summary Completed 05/04/2016 Care Plan: COMPREHEN METABOLIC PANEL LOINC : 59317-5 Pending 05/04/2016 Care Plan: CBC Pending 05/04/2016 Care Plan: LIPID PANEL LOINC : 66823-9 Pending 05/04/2016 Care Plan: A1C HPLC LO INC : 37925-9 Pending 05/04/2016 Visit Plan: Discussed with Dr Norwood er Treatment as above while awaiting specialist to return his call Push fluids Follow up celine if not improving 02/16/2016 Visit Plan: Discussed with Dr Norwood er Treatment as above while awaiting specialist to return his call Push fluids Follow up celine if not improving 02/16/2016 Appointment: Missy Dc [address] ACUTE ILLNESS 02/16/2016 Patient Education: Patient Medication [...] as well 12/03/2015 Appointment: Galina Smith WPtel: [address] [place], [place] [phone] ACUTE ILLNESS 12/03/2015 Patient Education: Patient Medication [...] is improved. 06/24/2015 Appointment: Alejandra Billy WPtel: [address] [place], [place] [id number] ACUTE ILLNESS 06/24/2015 Patient Education: Patient Medication Summary Completed 06/24/2015 Patient Education: Lyrica - 18+ - No MA NE Completed 06/24/2015 Visit Plan: Saline nasal flushes pr n. Tylenol/Motrin prn headache. Notify if persists/symptoms worsening. Obtain most recent lab Warned of increased BS with prednisone--has sliding scale to use 06/11/2015 Appointment: Galina Smith WPtel: [address] [place] [address] 06/10/15 cn....06/10/15 appt confirme d cn Annual Well Visit 05/14 Patient Education: Patient Medication Summary Completed 06/11/2015 Appointment: Galina Smith WPtel: [address] [place], [place] [phone] FOLLOW UP 10/15/2014 Patient Education: Patient Medication Summary Completed 09/03/2014 Care Plan: COMPREHEN METABOLIC PANEL LOINC : 74026-0 Ordered 09/03/2014 Visit Plan: Obtain most recent lab results Will likely need HbA1C and Lipids if were not done Accuchecks q AC and HS 07/17/2014 Appointment: Galina Smith WPtel: [address] [place], [place] [phone] FOLLOW UP 07/17/2014 Patient Education: Patient Medication Summary Completed 07/17/2014 Appointment: Galina Smith WPtel: [address] [place], [place] [phone] 01/29 01/30 NO SHOW FOLLOW UP 01/30/2014 Visit Plan: Check CMP, HbA1C, CBC, Lipids Pt sees transplant doctor next month Pt is currently just using insulin prn and monitering BS 10/31/2013 Appointment: Galina Smith WPtel: [address] [place] [address] FOLLOW UP 10/31/2013 Patient Education: Patient Medication Summary Completed 10/31/2013 Visit Plan: Continue current meds a nd acuchecks 08/01/2013 Appointment: Galina Smith WPtel: [address] [place] [address] 07/31 FOLLOW UP 08/01/2013 Patient Education: Patient Medication Summary Completed 08/01/2013 Visit Plan: CBC, CMP, CRP To [facility] for [facility] abdomen/Pelvis w/o contrast 07/30/2013 Appointment: Alejandra Billy WPtel: [address] [place] [address] ACUTE ILLNESS 07/30/2013 Patient Education: Patient Medication Summary Completed 07/30/2013 Visit Plan: Restart Diovan--pt says needs PA Continue fluoxetine at 20mg daily 05/30/2013 Appointment: Galina Smith WPtel: [address] [place] [address] FOLLOW UP 05/30/2013 Patient Education: Patient Medication Summary Completed 05/30/2013 Appointment: Galina Smith WPtel: [address] [place] [address] [place] has appt following day FOLLOW UP 05/29/2013 Visit Plan: Restart Diovan and Amlo dopine as has been out--new rx sent out Trial of Fluoxetine 20mg q AM [employer] 04/29/2013 Appointment: Galina Smith WPtel: [address] [place] [address] 04/26 MOM made appt. confirmed monday ACUTE ILLNESS 04/29/2013 Patient Education: Patient Medication Summary Completed 04/29/2013 Visit Plan: Continue current meds a nd accuchecks Pt going for fasting lab next month 02/27/2013 Appointment: Galina Smith WPtel: [address] [place], [place] [phone] FOLLOW UP 02/27/2013 Patient Education: Patient Medication Summary Completed 02/27/2013 Appointment: Viky Acosta WPtel: [address] [place], [place] [phone] ACUTE ILLNESS 01/01/2013 Patient Education: Patient Medication Summary Completed 01/01/2013 Visit Plan: Continue current meds C heck fasting lab next week 11/27/2012 Appointment: Galina Smith WPtel: [address] [place] [address] FOLLOW UP 11/27/2012 Patient Education: Patient Medication Summary Completed 11/27/2012 Visit Plan: Lab discussed Continue current meds and accuchecks Pt sees transplant doctor in in October Check fasting lab and fwup in os 08/28/2012 Appointment: Galina Smith WPtel: [address] [place], [place] [phone] 08/27 FOLLOW UP 08/28/2012 Patient Education: Patient Medication Summary Completed 08/28/2012 Appointment: Galina Smith WPtel: [address] [place], [place] [phone] LAB 08/20/2012 Patient Education: Patient Medication Summary Completed 08/20/2012 Visit Plan: Continue levemir at cur rent dose with accuchecks Use apidra with sliding scale Check Chem 7 and HbA1C in 2mos 07/03/2012 Appointment: Galina Smith WPtel: [address] [place], [place] [phone] 07/02 vm FOLLOW UP 07/03/2012 Patient Education: [...] 320mg daily 06/21/2012 Appointment: Galina Smith WPtel: [address] [place], [place] [phone] ACUTE ILLNESS 06/21/2012 Patient Education: Patient Medication Summary Completed 06/21/2012 Visit Plan: Increase Levemir to 75 u sc q PM Continue sliding scale insulin with accuchecks q AC and HS Call in 1wk with BS readings 05/30/2012 Appointment: Galina Smith WPtel: [address] [place], [place] [phone] Hospital Follow Up 05/30/2012 Patient Education: Patient Medication Summary Completed 05/30/2012 Appointment: Galina Smith WPtel: [address] [place], [place] [phone] 05/21 - cancelled appointment for 05/22 because PT was worked in on 05/21 FOLLOW UP 05/22/2012 Visit Plan: Obtain lab done last mo from [facility] See optometry for dilated eye exam and eye pressures today May need CT head pending results of eye evaluation 05/21/2012 Appointment: Galina Smith WPtel: [address] [place], [place] [phone] WORK IN 05/21/2012 Appointment: Galina Smith WPtel: [address] [place], [place] [phone] [place] LAB 05/21/2012 Patient Education: Patient Medication Summary Completed 05/21/2012 Visit Plan: Continue current meds O btain most recent lab done at [facility] See eye doctor today for dilated exam and eye pressures May need CT head pending dilated eye exam results 01/24/2012 Visit Plan: Continue current meds O btain most recent lab done at [facility] 01/24/2012 Visit Plan: Continue current meds C heck CBC, CMP, TSH, Free T4 01/24/2012 Appointment: Galina Smith WPtel: [address] [place], [place] [phone] FOLLOW UP 01/24/2012 Patient Education: Patient Medication Summary Completed 01/24/2012 Visit Plan: Decrease Norvasc to 2.5 mg daily Check CBC, CMP, TSH, Free T4 09/21/2011 Appointment: Galina Smith WPtel: [address] [place], [place] [phone] ACUTE ILLNESS 09/21/2011 Patient Education: Patient Medication Summary Completed 09/21/2011 Visit Plan: Continue Diovan at curr ent dose Add amlodopine Check Lipids/LFTs with next lab 09/12/2011 Appointment: Galina Smith WPtel: [address] [place] [address] FOLLOW UP 09/12/2011 Patient Education: Patient Medication Summary Completed 09/12/2011 Visit Plan: Increase Diovan to 320m g po daily Check TSH and Free T4 with kidney lab next week 06/14/2011 Appointment: Galina Smith WPtel: [address] [place] [address] FOLLOW UP 06/14/2011 Patient Education: Patient Medication Summary Completed 06/14/2011 Visit Plan: Z-pack then new tootheb ivory Start Diovan 03/03/2011 Appointment: Galina Smith WPtel: [address] [place] [address] ACUTE ILLNESS 03/03/2011 Patient Education: Patient Medication Summary Completed 03/03/2011 Visit Plan: Check TSH, Free T4 toda y Pt will moniter BP at home See if treatment of sinuses helps headaches 01/27/2011 Appointment: Galina Smith WPtel: [address] [place], [place] [phone] FOLLOW UP 01/27/2011 Patient Education: Patient Medication Summary Completed 01/27/2011 Visit Plan: Continue current meds a nd proceed with lab per kidney transplant doctor Start Synthroid at 50mcg po daily 12/02/2010 Appointment: Galina Smith WPtel: [address] [place] [address] FOLLOW UP 12/02/2010 Patient Education: Patient Medication Summary Completed 12/02/2010 Appointment: Galina Smith WPtel: [phone] [id number] [place] Suture Removal 10/20/2009 Patient Education: Patient [...] Obtain lab done la [facility] mo from [facility] See optometry for dilated eye exam [...] eds Obtain most recent lab done at [facility] See eye doctor today for dilated exam and eye pressures May need CT head pending dilated eye exam results . Continue current m eds Obtain most recent lab done at [facility] . Continue current m eds Check CBC, CMP, TSH, Free T4 . Continue current m eds and accuchecks Pt going for fasting lab next month . Check TSH, Free T4 today Pt will moniter BP at home See if treatment of sinuses helps headaches . CBC, CMP, CRP To [facility] for CT abdomen/Pelvis w/o contrast . Saline [...] . Labs completed thi s am in [facility] but do not have results yet. Start Lyrica 75mg PO bid Will Call in a week and let know if pain is improved. . Labs completed thi s am in [facility] but do not have results yet. Start Lyrica 75mg PO bid Will Call in a week and let know if pain is improved. . Restart Diovan and Amlodopine as has been out--new rx sent out Trial of Fluoxetine 20mg q AM Stress Reducers
--- OUTSIDE RECORDS SUMMARY | 2019-08-21 00:25 | XMS REPORT | CCD ---
Author Author Cuauhtemoc Smith D.O. Organization [facility] Address [address] [place] [address] Phone Care Team Providers Care Casing Material Weigher Name Role Phone Galina Smith D.O., PP Unavailable CCM Unavailable Summary Purpose Interface Exchange Insurance Providers Payer name Policy type / Coverage type Covered republican ID Effective Begin Date Effective End Date Blue Cross Blue Shield Blue Cross/Bl ue Shield [id number] 2017 Un known Family History Family History data not found Social History Social History Element Codes Description Effective Dates Tobacco history SNOMED CT: [id number] Currently uses smokeless tobacco 06/14/2011 Allergies, Adverse [...] V42.0 ICD-10: Z94.0 Active 08/24/2018 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 ICD-9: V58.69 [...] ICD-9: V42.0 ICD-10: Z94.0 08/24/2018 Active 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 ICD-9: V58.69 [...] aspart 100 unit/mL (3 mL) subcutaneous RxNorm: 2656367 INJECT SUBCUTANEOUSLY NEEDED PER SLIDING SCALE 02/22/2019 No Stop Date Active Levemir FlexTouch U- 100 Insulin 100 unit/mL (3 mL) subcutaneous pen RxNorm: 912215 90 Unit(s) SQ BID 01/08/2019 04/07/2019 Active Levemir FlexTouch U- 100 Insulin 100 unit/mL (3 mL) subcutaneous pen RxNorm: 058298 90 Unit(s) SQ BID 12/04/2018 12/03/2018 Inactive Levemir FlexTouch U- 100 Insulin 100 unit/mL (3 mL) subcutaneous pen RxNorm: 376316 90 Unit(s) SQ BID 12/04/2018 01/07/2019 Inactive Levemir FlexTouch U- 100 Insulin 100 unit/mL (3 mL) subcutaneous pen RxNorm: 841426 70 Unit(s) SQ BID 10/26/2018 12/04/2018 Inactive Levemir FlexTouch U- 100 Insulin 100 unit/mL (3 mL) subcutaneous pen RxNorm: 295644 GIVE 90 UNITS SUBCUTANEOUSLY TWICE DAILY 10/08/2018 10/26/2018 Inactive Levemir FlexTouch U- 100 Insulin 100 unit/mL (3 mL) subcutaneous pen RxNorm: 237624 90 Unit(s) SQ BID 07/30/2018 10/07/2018 Inactive Levemir FlexTouch U- 100 Insulin 100 unit/mL (3 mL) subcutaneous pen RxNorm: 453324 90 Unit(s) SQ BID 07/06/2018 07/29/2018 Inactive Pen Needle 31 gauge x 5/16" RxNorm: USE DIRECTED 03/21/2018 No Stop Date Active Levemir FlexTouch U- 100 Insulin 100 unit/mL (3 mL) subcutaneous pen RxNorm: 670645 80 Unit(s) SQ BID 02/15/2018 07/06/2018 Inactive Levemir FlexTouch U- 100 Insulin 100 unit/mL (3 mL) subcutaneous pen RxNorm: 570860 INJECT 105 UNITS SUBCUTANEOUSLY IN THE EVENING 01/24/2018 02/15/2018 Inactive Levemir FlexTouch U- 100 Insulin 100 unit/mL (3 mL) subcutaneous pen RxNorm: 412328 INJECT 105 UNITS SUBCUTANEOUSLY IN THE EVENING 12/26/2017 01/23/2018 Inactive Novolog Flexpen U-10 0 Insulin aspart 100 unit/mL (3 mL) subcutaneous RxNorm: 9911902 INJECT SUBCUTANEOUSLY NEEDED PER SLIDING SCALE 12/25/2017 02/21/2019 Inactive Levemir FlexTouch U- 100 Insulin 100 unit/mL (3 mL) subcutaneous pen RxNorm: 885358 70 Unit(s) SQ BID 11/03/2017 11/03/2017 Inactive Levemir FlexTouch U- 100 Insulin 100 unit/mL (3 mL) subcutaneous pen RxNorm: 217276 105 Unit(s) SQ QPM 11/02/2017 11/02/2017 Inactive Levemir FlexTouch U- 100 Insulin 100 unit/mL (3 mL) subcutaneous pen RxNorm: 355252 105 Unit(s) SQ QPM Needs updated labs 11/01/2017 11/01/2017 Inactive Levemir FlexTouch U- 100 Insulin 100 unit/mL (3 mL) subcutaneous pen RxNorm: 760943 Unit(s) 105 Unit(s) SQ QPM 09/18/2017 09/18/2017 Inactive Levemir FlexTouch U- 100 Insulin 100 unit/mL (3 mL) subcutaneous pen RxNorm: 872812 105 Unit(s) SQ QPM 08/07/2017 09/18/2017 Inactive cephalexin 500 mg ca psule RxNorm: 827983 1 Capsule(s) PO BID 07/27/2017 08/02/2017 Inactive Levemir FlexTouch U- 100 Insulin 100 unit/mL (3 mL) subcutaneous pen RxNorm: 671241 105 Unit(s) SQ QPM 06/07/2017 06/07/2017 Inactive Levemir FlexTouch 10 0 unit/mL (3 mL) subcutaneous insulin pen RxNorm: 214813 105 Unit(s) SQ QPM 05/11/2017 06/07/2017 Inactive Lipitor 40 mg tablet RxNorm: 527909 1.5 Tablet(s) PO QD 04/05/2017 10/01/2017 Inactive Diovan 320 mg tablet RxNorm: 784199 1 Tablet(s) PO QD 04/05/2017 03/30/2018 Inactive Lipitor 40 mg tablet RxNorm: 413828 1 Tablet(s) PO QD 04/05/2017 04/04/2017 Inactive nystatin 100,000 uni t/gram topical ointment RxNorm: 497668 1 Gram(s) TOP BID 04/05/2017 05/02/2017 In active Levemir FlexTouch 10 0 unit/mL (3 mL) subcutaneous insulin pen RxNorm: 309467 105 Unit(s) SQ QPM 04/05/2017 04/05/2017 Inactive Levemir FlexTouch 10 0 unit/mL (3 mL) subcutaneous insulin pen RxNorm: 124539 90 Unit(s) SQ QPM LAST REFILL UNTIL LABS AND APPOINTMENT!!!! 04/05/2017 05/11/2017 Inactive Novolog Flexpen 100 unit/mL subcutaneous RxNorm: 1463066 Unit(s) INJECT SUBCU TANEOUSLY NEEDED PER SLIDING SCALE---NEEDS UPDATED LABS 03/07/2017 12/03/2018 Inactive Levemir FlexTouch 10 0 unit/mL (3 mL) subcutaneous insulin pen RxNorm: 703440 90 Unit(s) SQ QPM LAST REFILL UNTIL LABS AND APPOINTMENT!!!! 02/17/2017 03/18/2017 Inactive Levemir FlexTouch 10 0 unit/mL (3 mL) subcutaneous insulin pen RxNorm: 089762 90 Unit(s) SQ QPM NEEDS FASTING LABS AND APPOINTMENT BEFORE FURTHER REFILLS 12/22/2016 02/17/2017 In active Novolog Flexpen U-10 0 Insulin aspart 100 unit/mL subcutaneous RxNorm: 0638925 Unit(s) INJECT SUBCUTANEOUSLY NEEDED PER SLIDING SCALE---NEEDS UPDATED LABS 11/28/2016 03/07/2017 Inactive Levemir FlexTouch 10 0 unit/mL (3 mL) subcutaneous insulin pen RxNorm: 651066 90 Unit(s) VAG QPM 11/08/2016 12/22/2016 Inactive Levemir FlexTouch 10 0 unit/mL (3 mL) subcutaneous insulin pen RxNorm: 359565 90 Unit(s) VAG QPM 11/08/2016 12/21/2016 Inactive Levemir FlexTouch 10 0 unit/mL (3 mL) subcutaneous insulin pen RxNorm: 423157 80 Unit(s) VAG QPM 09/05/2016 11/08/2016 Inactive Levemir FlexTouch 10 0 unit/mL (3 mL) subcutaneous insulin pen RxNorm: 857120 85 Unit(s) SQ QD 07/22/2016 09/05/2016 Inactive Levemir FlexTouch 10 0 unit/mL (3 mL) subcutaneous insulin pen RxNorm: 422775 85 Unit(s) SQ QD 07/04/2016 07/21/2016 Inactive Levemir FlexTouch 10 0 unit/mL (3 mL) subcutaneous insulin pen RxNorm: 747890 85 Unit(s) SQ QD 06/14/2016 06/19/2016 Inactive Levemir FlexTouch 10 0 unit/mL (3 mL) subcutaneous insulin pen RxNorm: 611398 85 Unit(s) SQ QD 05/03/2016 05/22/2016 Inactive Levemir FlexTouch 10 0 unit/mL (3 mL) subcutaneous insulin pen RxNorm: 195113 85 Unit(s) SQ QD 05/03/2016 05/02/2016 Inactive Levemir FlexTouch 10 0 unit/mL (3 mL) subcutaneous insulin pen RxNorm: 749374 85 Unit(s) SQ QD 03/14/2016 04/22/2016 Inactive cefuroxime axetil 25 0 mg tablet RxNorm: 067514 1 Tablet(s) PO BID 02/16/2016 02/25/2016 Inactive Levemir FlexTouch 10 0 unit/mL (3 mL) subcutaneous insulin pen RxNorm: 000798 85 Unit(s) SQ QD 02/03/2016 03/13/2016 Inactive Levemir FlexTouch 10 0 unit/mL (3 mL) subcutaneous insulin pen RxNorm: 641399 85 Unit(s) SQ QD 12/07/2015 02/02/2016 Inactive Pen Needle 31 gauge x 5/16" RxNorm: USE DIRECTED 11/19/2015 05/16/2016 Inactive Levemir FlexTouch 10 0 unit/mL (3 mL) subcutaneous insulin pen RxNorm: 588293 INJECT 75 UNITS SUBCUTANEOUSLY ONCE DAILY; NEED LABS AND APPT 10/06/2015 12/04/2015 Inactive Novolog Flexpen 100 unit/mL subcutaneous RxNorm: 5209586 INJECT SUBCUTANEOUSL Y NEEDED PER SLIDING SCALE 09/15/2015 11/28/2016 Inactive Levemir FlexTouch 10 0 unit/mL (3 mL) subcutaneous insulin pen RxNorm: 702259 75 Unit(s) SQ QD Needs lab and appointment 07/13/2015 10/05/2015 Inactive Lyrica 75 mg capsule RxNorm: 405326 1 Capsule(s) PO BID 06/24/2015 07/23/2015 Inactive Levemir FlexTouch 10 0 unit/mL (3 mL) subcutaneous insulin pen RxNorm: 429710 75 Unit(s) SQ QD Needs lab and appointment 06/23/2015 07/12/2015 Inactive Novolog Flexpen 100 unit/mL subcutaneous RxNorm: 7909484 Unit(s) SQ as needed Sliding scale 06/15/2015 09/14/2015 Inactive Flonase Allergy Reli ef 50 mcg/actuation nasal spray,suspension RxNorm: 2 Manning NASAL QHS 06/11/2015 12/02/2015 Inactive prednisone 20 mg tablet RxNorm: 882954 1 Tablet(s) PO TID for 3 days then 1 po BID for 3 days then one daily for 3 days 06/11/2015 12/02/2015 Inactive cefdinir 300 mg capsule RxNorm: 009678 2 Capsule(s) PO QD 06/11/2015 06/24/2015 Inactive Levemir FlexTouch 10 0 unit/mL (3 mL) subcutaneous insulin pen RxNorm: 604344 75 Unit(s) SQ QD Needs lab and appointment 05/29/2015 06/22/2015 Inactive Novolog 100 unit/mL subcutaneous solution RxNorm: 109344 Unit(s) SQ Inject as directed using sliding scale B 05/29/2015 12/03/2018 Inactive Levemir Flexpen 100 unit/mL (3 mL) solution subcutaneous insulin pen RxNorm: 251488 INJECT 75 UNITS SUBCUTANEOUSLY EVERY DAY 05/11/2015 05/29/2015 Inactive Levemir FlexTouch 10 0 unit/mL (3 mL) subcutaneous insulin pen RxNorm: 009812 75 Unit(s) SQ QHS 03/30/2015 12/03/2018 Inactive Levemir FlexTouch 10 0 unit/mL (3 mL) subcutaneous insulin pen RxNorm: 256174 75 Unit(s) SQ QHS 03/09/2015 03/29/2015 Inactive Contour Test Strips RxNorm: Miscellaneous 01/27/2015 No Stop Date Active Novolog 100 unit/mL subcutaneous solution RxNorm: 500194 Unit(s) SQ Inject as directed using sliding scale B 01/27/2015 05/29/2015 Inactive Levemir Flexpen 100 unit/mL (3 mL) solution subcutaneous insulin pen RxNorm: 465392 INJECT 75 UNITS SUBCUTANEOUSLY EVERY DAY 11/05/2014 03/09/2015 Inactive Levemir Flexpen 100 unit/mL (3 mL) solution subcutaneous insulin pen RxNorm: 618123 INJECT 75 UNITS SUBCUTANEOUSLY EVERY DAY 08/13/2014 10/31/2014 Inactive Novolog 100 unit/mL subcutaneous solution RxNorm: 320857 Unit(s) SQ Inject as directed using sliding scale B 07/15/2014 01/26/2015 Inactive Apidra SoloStar 100 unit/mL subcutaneous insulin pen RxNorm: 839971 Unit(s) SQ INJECT DIRECTED USING SLIDING SCALE B 07/11/2014 07/14/2014 Inactive Diovan 320 mg tablet RxNorm: 299212 1 Tablet(s) PO QD 06/10/2014 06/04/2015 Inactive Apidra SoloStar 100 unit/mL subcutaneous insulin pen RxNorm: 797976 Unit(s) SQ INJECT DIRECTED USING SLIDING SCALE B 04/18/2014 07/10/2014 Inactive Levemir Flexpen 100 unit/mL (3 mL) solution subcutaneous insulin pen RxNorm: 669931 Unit(s) SQ INJECT 75 UNITS SUBCUTANEOUSLY EVERY DAY 02/28/2014 02/27/2014 Inactive [SAVINGS FOR UNINSURED PATIENTS -- BIN:[id number], PCN: [id number], Group: [id number], ID# [id number], Process claim through [employer], for questions: . THIS IS NOT INSURANCE.] Apidra SoloStar 100 unit/mL subcutaneous insulin pen RxNorm: 275582 Unit(s) SQ INJECT DIRECTED USING SLIDING SCALE B 09/05/2013 04/17/2014 Inactive Pen Needle 31 gauge x 5/16" RxNorm: Miscellaneous USE DIRECT ED WITH LEVEMIR AND APIDRA 08/23/2013 11/18/2015 Inactive Prograf 1 mg capsule RxNorm: 444181 2 Capsule(s) PO BID Generic OK to fill 08/21/2013 No Stop Date Active Diovan 320 mg tablet RxNorm: 584306 1 Tablet(s) PO QD 05/30/2013 05/24/2014 Inactive fluoxetine 20 mg tablet RxNorm: 219126 1 Tablet(s) PO QAM 05/30/2013 07/31/2013 Inactive amlodipine 5 mg tablet RxNorm: 641936 1 Tablet(s) PO QD 04/29/2013 04/23/2014 Inactive fluoxetine 20 mg tablet RxNorm: 258131 1 Tablet(s) PO QAM 04/29/2013 05/29/2013 Inactive ketoconazole 2 % top ical cream RxNorm: 786413 Application TOP BID f or 2-4wks 04/29/2013 05/12/2013 In active Diovan 320 mg tablet RxNorm: 429984 1 Tablet(s) PO QD 04/29/2013 06/10/2014 Inactive Apidra SoloStar 100 unit/mL subcutaneous insulin pen RxNorm: 054061 Unit(s) SQ Sliding Scale B 02/19/2013 09/05/2013 Inactive Levemir Flexpen 100 unit/mL (3 mL) solution subcutaneous insulin pen RxNorm: 358712 Insulin Pen SQ INJECT 75 UNITS SUBCUTANEOUSLY EVERY DA Y 01/21/2013 02/28/2014 Inactive Septra DS 800 mg-160 mg tablet RxNorm: 696228 1 Tablet(s) PO BID an tibiotic 01/01/2013 01/07/2013 In active ketoconazole 2 % top ical cream RxNorm: 396955 1 Application TOP BID 01/01/2013 01/14/2013 Inactive Levemir Flexpen 100 unit/mL (3 mL) Sub-Q Insulin Pen RxNorm: 462946 Unit(s) SQ INJECT 75 UNITS SUB-Q ONCE A DAY 12/07/2012 No Stop Date Active Levemir Flexpen 100 unit/mL (3 mL) Sub-Q Insulin Pen RxNorm: 150792 Unit(s) SQ INJECT 75 UNITS SUB-Q ONCE A DAY 10/22/2012 12/07/2012 Inactive Levemir Flexpen 100 unit/mL (3 mL) Sub-Q Insulin Pen RxNorm: 823954 75 Unit(s) SQ QHS 08/20/2012 10/22/2012 Inactive Diovan 320 mg tablet RxNorm: 523519 1 Tablet(s) PO QD 07/30/2012 04/28/2013 Inactive Levemir Flexpen 100 unit/mL (3 mL) Sub-Q Insulin Pen RxNorm: 363677 Insulin Pen SQ INJECT 75 UNITS SUB-Q ONCE A DAY 07/30/2012 10/21/2012 Inactive Levemir Flexpen 100 unit/mL (3 mL) Sub-Q Insulin Pen RxNorm: 756934 75 Unit(s) SQ QHS 07/30/2012 08/19/2012 Inactive Levemir Flexpen 100 unit/mL (3 mL) Sub-Q Insulin Pen RxNorm: 841228 75 Unit(s) SQ QHS 07/30/2012 07/29/2012 Inactive Diovan 320 mg tablet RxNorm: 757633 1 Tablet(s) PO QD 06/21/2012 06/20/2012 Inactive Diovan 320 mg tablet RxNorm: 145541 1 Tablet(s) PO QD 06/21/2012 06/20/2012 Inactive Diovan 320 mg tablet RxNorm: 845056 1 Tablet(s) PO QD 06/21/2012 07/29/2012 Inactive CellCept 250 mg capsule RxNorm: 995922 4 Capsule(s) PO BID 06/14/2012 06/20/2012 Inactive Prograf 1 mg capsule RxNorm: 648448 2 Capsule(s) PO BID Generic OK to fill 06/14/2012 06/20/2012 In active Apidra SoloStar 100 unit/mL Sub-Q Insulin Pen RxNorm: 758650 Unit(s) SQ Sliding Sc supriya B 06/13/2012 12/03/2018 Inactive Levemir Flexpen 100 unit/mL (3 mL) Sub-Q Insulin Pen RxNorm: 709880 75 Unit(s) SQ QD 06/13/2012 No Stop Date Active Apidra SoloStar 100 unit/mL Sub-Q Insulin Pen RxNorm: 924923 Unit(s) SQ Sliding Sc supriya B 06/13/2012 No Stop Date Active One Touch Delkaren Adeel cets RxNorm: Miscellaneous 0 06/13/2012 04/04/2017 Inactive Lipitor 40 mg tablet RxNorm: 881700 1 Tablet(s) PO QD 05/30/2012 08/27/2012 Inactive Diovan 320 mg tablet RxNorm: 516105 1 Tablet(s) PO QD 05/30/2012 06/20/2012 Inactive Tricor 145 mg tablet RxNorm: 490032 1 Tablet(s) PO QD 05/30/2012 08/27/2012 Inactive Lipitor 20 mg Tab RxNorm: 098668 1 Tablet(s) PO QD 09/12/2011 05/29/2012 Inactive Synthroid 50 mcg Tab RxNorm: 692517 1 Tablet(s) PO QD 09/12/2011 12/02/2015 Inactive Diovan 320 mg tablet RxNorm: 559640 1 Tablet(s) PO QD 09/12/2011 03/09/2012 Inactive amlodipine 5 mg tablet RxNorm: 540669 1 Tablet(s) PO QD 09/12/2011 03/09/2012 Inactive Diovan 320 mg Tab RxNorm: 861367 1 Tablet(s) PO QD 06/14/2011 09/11/2011 Inactive Diovan 160 mg Tab RxNorm: 597078 1 Tablet(s) PO QD 03/03/2011 06/13/2011 Inactive cefdinir 300 mg Cap RxNorm: 890744 2 Capsule(s) PO QD 01/27/2011 02/05/2011 Inactive Synthroid 50 mcg Tab RxNorm: 852068 1 Tablet(s) PO QD 12/02/2010 01/30/2011 Inactive Multivitamin & Icu Registered Nurse al Formula Tab RxNorm: 1 Tablet(s) PO QD No Start Date Active Miralax 17 gram/dose oral powder RxNorm: 051605 PO BID in 6-8 ounces of water No Start Date Active Tylenol Extra Streng th 500 mg tablet RxNorm: 449546 Tablet(s) PO as neede d No Start Date Active Tricor Oral RxNorm: Oral No Start Date 05/29 Inactive MagOx 400 mg tablet RxNorm: 470194 1 Tablet(s) PO QD No Start Date 06/19/2016 Inactive sodium bicarbonate Oral RxNorm: Oral No Start Date 06/19/2016 Inactive Fish Oil 1,000 mg ca psule RxNorm: 1 Capsule(s) PO QD No Start Date 04/04/2017 Inactive Novofine Misc RxNorm: Miscellaneous No Start Date 06/12/2012 Inactive Percocet 5 mg-325 mg tablet RxNorm: 9790754 Tablet(s) PO as need ed Dr Parson No Start Date 04/04/2017 Inactive Contour Test Strips RxNorm: miscellaneous No Start Date 01/26/2015 Inactive Prograf 1 mg capsule RxNorm: 142186 2 Capsule(s) PO BID No Start Date 06/13/2012 Inactive Zantac 150 mg Tab RxNorm: 716028 Tablet(s) PO PRN No Start Date 12/02/2015 Inactive Levemir FlexTouch 10 0 unit/mL (3 mL) subcutaneous insulin pen RxNorm: 800980 75 Unit(s) SQ QHS No Start Date 03/08/2015 Inactive CellCept 250 mg capsule RxNorm: 962460 4 Capsule(s) PO BID No Start Date 06/13/2012 Inactive Novolog 100 unit/mL subcutaneous solution RxNorm: 176509 Unit(s) SQ Inject as directed using sliding scale B No Start Date 07/14/2014 Inactive Novolog Flexpen 100 unit/mL subcutaneous RxNorm: 0799396 Unit(s) SQ as needed Sliding scale No Start Date 06/14/2015 Inactive Apidra SoloStar 100 unit/mL Sub-Q Insulin Pen RxNorm: 780880 Unit(s) SQ Sliding Sc supriya B No Start Date 06/12/2012 Inactive Levemir FlexTouch U- 100 Insulin 100 unit/mL (3 mL) subcutaneous pen RxNorm: 729605 70 Unit(s) SQ BID No Start Date 02/06/2018 Inactive Pen Needle 31 X 5/16" RxNorm: Miscellaneous No Start Date 08/23/2013 Inactive Synthroid 50 mcg Tab RxNorm: 578431 1 Tablet(s) PO QD No Start Date 09/11/2011 Inactive Levemir Flexpen 100 unit/mL (3 mL) Sub-Q Insulin Pen RxNorm: 435326 70 Unit(s) SQ QHS No Start Date 07/29/2012 Inactive Levemir FlexTouch U- 100 Insulin 100 unit/mL (3 mL) subcutaneous pen RxNorm: 622434 80 Unit(s) SQ BID No Start Date 02/14/2018 Inactive Levemir FlexTouch 10 0 unit/mL (3 mL) subcutaneous insulin pen RxNorm: 867387 80 Unit(s) SQ QPM No Start Date 09/04/2016 Inactive Lipitor 40 mg tablet RxNorm: 626601 1 Tablet(s) PO QD No Start Date 04/04/2017 Inactive Ultram 50 mg tablet RxNorm: 410016 2 Tablet(s) PO TID as needed for pain No Start Date 06/10/2015 Inactive Prograf 1 mg Cap RxNorm: 466081 2 Capsule(s) PO BID No Start Date 05/20/2012 Inactive insulin needles (dis posable) 32 x 5/16" RxNorm: Miscellaneous for use with flex pen No Start Date 04/04/2017 Inactive Levemir FlexTouch U- 100 Insulin 100 unit/mL (3 mL) subcutaneous pen RxNorm: 098305 90 Unit(s) SQ BID No Start Date 07/05/2018 Inactive Levemir Flexpen 100 unit/mL (3 mL) Sub-Q Insulin Pen RxNorm: 333154 65 Unit(s) SQ QD No Start Date 06/12/2012 Inactive Zithromax Z-Mateus 250 mg Tab RxNorm: 080494 Tablet(s) PO No Start Date 06/13/2011 Inactive as directed Lipitor 20 mg Tab RxNorm: 402314 1 Tablet(s) PO QD No Start Date [...] ICD- 10: Z48.298 ICD-9: V58.44 08/24/2018 Other jail (current) drug therapy ICD-10: Z79.899 ICD-9: V58.69 [...] Code Item Item Code Result Date MAGNESIUM 08385 MAGNESIUM 1.4 mEq/L 02/19/2019 GFR CALC 5967794 GFR Non Afr Amr 37 mL/min 02/19/2019 GFR CALC 0684298 GFR Afr Amr 45 mL/min 02/19/2019 LIPID GROUP 26862 Choles terol 250 mg/dL 02/19/2019 LIPID GROUP 79442 Trigly ceride 465 mg/dL 02/19/2019 LIPID GROUP 51828 HDL CH OLESTEROL 30 mg/dL 02/19/2019 LIPID GROUP 16751 Chol/H DL Ratio 8.33 ratio 02/19/2019 LIPID GROUP 26937 NON-HD L Chol 220 mg/dL 02/19/2019 LIPID GROUP 25142 LDL Ch olesterol N/A Trig >400 019 LIPID GROUP 94367 Fasting Unknown 02/19/2019 COMPREHENSIVE METABOLIC 71931 AST 20 U/L 02/19/2019 COMPREHENSIVE METABOLIC 08401 ALT 30 U/L 02/19/2019 COMPREHENSIVE METABOLIC 60451 BUN 27 mg/dL 02/19/2019 COMPREHENSIVE METABOLIC 10127 ALBUMIN 3.7 g/dL 02/19/2019 COMPREHENSIVE METABOLIC 97065 CHLORIDE 105 mmol/L 02/19/2019 COMPREHENSIVE METABOLIC 95701 Bili Total 0.5 mg/dL 02/19/2019 COMPREHENSIVE METABOLIC 97722 ALK PHOS 79 U/L 02/19/2019 COMPREHENSIVE METABOLIC 78427 SODIUM 137 mmol/L 02/19/2019 COMPREHENSIVE METABOLIC 82263 CREATININE 2.10 mg/dL 02/19/2019 COMPREHENSIVE METABOLIC 15946 CALCIUM 9.5 mg/dL 02/19/2019 COMPREHENSIVE METABOLIC 16301 POTASSIUM 4.2 mmol/L 02/19/2019 COMPREHENSIVE METABOLIC 70299 Total Protein 6.5 g/dL 02/19/2019 COMPREHENSIVE METABOLIC 34538 Glucose 202 mg/dL 02/19/2019 COMPREHENSIVE METABOLIC 45665 Bicarbonate 22 mmol/L 02/19/2019 COMPREHENSIVE METABOLIC 65327 AGAP 10 mmol/L 02/19/2019 LIPID GROUP 08578 Choles terol 320 mg/dL 08/27/2018 LIPID GROUP 48931 Trigly ceride 444 mg/dL 08/27/2018 LIPID GROUP 29461 HDL CH OLESTEROL 39 mg/dL 08/27/2018 LIPID GROUP 98861 Chol/H DL Ratio 8.21 ratio 08/27/2018 LIPID GROUP 36469 NON-HD L Chol 281 mg/dL 08/27/2018 LIPID GROUP 19311 LDL Ch olesterol N/A Trig >400 019 LIPID GROUP 59257 Fasting Unknown 08/27/2018 PHOSPHORUS 4549821 PHOSP HORUS 2.1 mg/dL 08/24/2018 PROTEIN/CREAT URINE WITH RATIO 53861|76498 U Protein 515 mg/dL 08/24/2018 PROTEIN/CREAT URINE WITH RATIO 02538|43542 U Creatinine 116 mg/dL 08/24/2018 PROTEIN/CREAT URINE WITH RATIO 25997|97065 Prot:Creat Rat 4440 mg/g 08/24/2018 MAGNESIUM 36581 MAGNESIUM 1.4 mEq/L 08/24/2018 GFR CALC 6951261 GFR Non Afr Amr 44 mL/min 08/24/2018 GFR CALC 0068586 GFR Afr Amr 53 mL/min 08/24/2018 [place] [address] Glucose TNP:Unknown Cancel Reason 08/24/2018 [place] [address] CREATININE TNP:Unknown Cancel Reason 08/24/2018 [place] [address] BUN TNP:Unknown Cancel Reason 08/24/2018 [place] [address] SODIUM TNP:Unknown Cancel Reason 08/24/2018 [place] [address] POTASSIUM TNP:Unknown Cancel Reason 08/24/2018 [place] [address] CHLORIDE TNP:Unknown Cancel Reason 08/24/2018 [place] [address] Bicarbonate TNP:Unknown Cancel Reason 08/24/2018 [place] [address] AGAP TNP:Unknown Cancel Reason 08/24/2018 [place] [address] CALCIUM TNP:Unknown Cancel Reason 08/24/2018 COMPREHENSIVE METABOLIC 40857 AST 21 U/L 08/24/2018 COMPREHENSIVE METABOLIC 23864 ALT 35 U/L 08/24/2018 COMPREHENSIVE METABOLIC 92872 BUN 25 mg/dL 08/24/2018 COMPREHENSIVE METABOLIC 13179 ALBUMIN 4.5 g/dL 08/24/2018 COMPREHENSIVE METABOLIC 35175 CHLORIDE 106 mmol/L 08/24/2018 COMPREHENSIVE METABOLIC 09202 Bili Total 0.4 mg/dL 08/24/2018 COMPREHENSIVE METABOLIC 09950 ALK PHOS 64 U/L 08/24/2018 COMPREHENSIVE METABOLIC 03084 SODIUM 141 mmol/L 08/24/2018 COMPREHENSIVE METABOLIC 74453 CREATININE 1.81 mg/dL 08/24/2018 COMPREHENSIVE METABOLIC 72323 CALCIUM 10.3 mg/dL 08/24/2018 COMPREHENSIVE METABOLIC 62881 POTASSIUM 3.4 mmol/L 08/24/2018 COMPREHENSIVE METABOLIC 54847 Total Protein 7.2 g/dL 08/24/2018 COMPREHENSIVE METABOLIC 66585 Glucose 101 mg/dL 08/24/2018 COMPREHENSIVE METABOLIC 63930 Bicarbonate 23 mmol/L 08/24/2018 COMPREHENSIVE METABOLIC 07401 AGAP 12 mmol/L 08/24/2018 UA W/MICR 01642 UA Urine Appear Normal 08/24/2018 UA W/MICR 14382 UA Prote in 3+ 08/24/2018 UA W/MICR 53260 UA Hemog lobin Trace 08/24/2018 UA W/MICR 63088 UA Gluco se 3+ 08/24/2018 UA W/MICR 89218 UA [place] es Negative 08/24/2018 UA W/MICR 02345 UA pH 6.0 08/24/2018 UA W/MICR 76324 U Spec G ravity 1.025 08/24/2018 UA W/MICR 86379 UA Bilir ubin Negative 08/24/2018 UA W/MICR 30454 UA Leuk Esteras Negative 08/24/2018 UA W/MICR 89947 UA Nitri te NEG 08/24/2018 UA W/MICR 99767 UA WBC/h pf 1 08/24/2018 UA W/MICR 75117 UA RBC a uto 12.9 /uL 08/24/2018 UA W/MICR 83400 UA RBC h pf 2 08/24/2018 UA W/MICR 10506 UA WBC a uto 5.9 /uL 08/24/2018 UA W/MICR 12860 UA SQ EP I auto 5.2 /uL 08/24/2018 UA W/MICR 42070 UA H Jamil t auto 0.10 /uL 08/24/2018 PROGRAF 4611068 Prograf 7.3 ng/mL 08/24/2018 MICROALBUMIN URINE RANDOM 51968 U Microalbumin 3485.2 mg/L 08/24/2018 MICROALBUMIN URINE RANDOM 30145 U Creatinine 116 mg/dL 08/24/2018 MICROALBUMIN URINE RANDOM 83830 ALB/CR Ratio 3004.5 mg/gCR 08/25/19 19 GLYCOSYLATED HEMOGLOBIN TEST 20495 Hgb A1c 32070-2 13.3 % 9 MEAN GLUC 1457989 Calc M sherron Gluc 335 mg/dL 06/29/2018 COMPREHENSIVE METABOLIC 13817 AST 17 U/L 02/06/2018 COMPREHENSIVE METABOLIC 08739 ALT 24 U/L 02/06/2018 COMPREHENSIVE METABOLIC 60832 BUN 24 mg/dL 02/06/2018 COMPREHENSIVE METABOLIC 44807 ALBUMIN 3.9 g/dL 02/06/2018 COMPREHENSIVE METABOLIC 45154 CHLORIDE 108 mmol/L 02/06/2018 COMPREHENSIVE METABOLIC 12595 Bili Total 0.6 mg/dL 02/06/2018 COMPREHENSIVE METABOLIC 02257 ALK PHOS 67 U/L 02/06/2018 COMPREHENSIVE METABOLIC 41460 SODIUM 140 mmol/L 02/06/2018 COMPREHENSIVE METABOLIC 24796 CREATININE 1.75 mg/dL 02/06/2018 COMPREHENSIVE METABOLIC 68569 CALCIUM 9.6 mg/dL 02/06/2018 COMPREHENSIVE METABOLIC 08353 POTASSIUM 3.8 mmol/L 02/06/2018 COMPREHENSIVE METABOLIC 93420 Total Protein 7.1 g/dL 02/06/2018 COMPREHENSIVE METABOLIC 83879 Glucose 62 mg/dL 02/06/2018 COMPREHENSIVE METABOLIC 85340 Bicarbonate 23 mmol/L 02/06/2018 COMPREHENSIVE METABOLIC 97218 AGAP 9 mmol/L 02/06/2018 GLYCOSYLATED HEMOGLOBIN TEST 24632 Hgb A1c 79627-6 13.0 % 8 GFR CALC 3729481 GFR Non Afr Amr 46 mL/min 02/06/2018 GFR CALC 3903334 GFR Afr Amr 55 mL/min 02/06/2018 MICROALBUMIN URINE RANDOM 09344 U Microalbumin 669.0 mg/L 02/06/2018 MICROALBUMIN URINE RANDOM 69850 U Creatinine 92 mg/dL 02/06/2018 MICROALBUMIN URINE RANDOM 39142 ALB/CR Ratio 727.2 mg/gCR 8 MEAN GLUC Calc M sherron Gluc 326 mg/dL 02/06/2018 GLYCOSYLATED HEMOGLOBIN TEST 10621 Hgb A1c 88756-7 14.3 % 6 THYROID STIMULATING HORMONE 03688 TSH 1.909 uIU/mL 6 MAGNESIUM 25731 MAGNESIUM 1.5 mEq/L 12/03/2015 GFR CALC 5995863 GFR Non Afr Amr 39 mL/min 12/03/2015 GFR CALC 1917453 GFR Afr Amr 48 mL/min 12/03/2015 MEAN GLUC Mean G lucose 364 mg/dL 12/03/2015 COMPREHENSIVE METABOLIC 23504 AST 34 U/L 12/03/2015 COMPREHENSIVE METABOLIC 06771 ALT 78 U/L 12/03/2015 COMPREHENSIVE METABOLIC 00401 BUN 29 mg/dL 12/03/2015 COMPREHENSIVE METABOLIC 43767 ALBUMIN 4.3 g/dL 12/03/2015 COMPREHENSIVE METABOLIC 51246 CHLORIDE 93 mmol/L 12/03/2015 COMPREHENSIVE METABOLIC 31308 Bili Total 0.7 mg/dL 12/03/2015 COMPREHENSIVE METABOLIC 43191 ALK PHOS 83 U/L 12/03/2015 COMPREHENSIVE METABOLIC 85300 SODIUM 125 mmol/L 12/03/2015 COMPREHENSIVE METABOLIC 55724 CREATININE 2.01 mg/dL 12/03/2015 COMPREHENSIVE METABOLIC 82945 CALCIUM 9.8 mg/dL 12/03/2015 COMPREHENSIVE METABOLIC 35107 POTASSIUM 4.3 mmol/L 12/03/2015 COMPREHENSIVE METABOLIC 47219 Total Protein 7.3 g/dL 12/03/2015 COMPREHENSIVE METABOLIC 44957 Glucose 542 mg/dL 12/03/2015 COMPREHENSIVE METABOLIC 11419 Bicarbonate 23 mmol/L 12/03/2015 COMPREHENSIVE METABOLIC 25041 AGAP 9 mmol/L 12/03/2015 COMPREHENSIVE METABOLIC 22005 AST 31 U/L 07/30/2013 COMPREHENSIVE METABOLIC 19148 ALT 52 IU/L 07/30/2013 COMPREHENSIVE METABOLIC 90242 BUN 26 MG/DL 07/30/2013 COMPREHENSIVE METABOLIC 70251 ALBUMIN 4.9 GM/DL 07/30/2013 COMPREHENSIVE METABOLIC 79669 CHLORIDE 108 MMOL/L 07/30/2013 COMPREHENSIVE METABOLIC 68684 BILI TOT 0.4 MG/DL 07/30/2013 COMPREHENSIVE METABOLIC 07473 ALK PHOS 68 U/L 07/30/2013 COMPREHENSIVE METABOLIC 03212 SODIUM 138 MMOL/L 07/30/2013 COMPREHENSIVE METABOLIC 96703 CREATININE 2.02 MG/DL 07/30/2013 COMPREHENSIVE METABOLIC 68530 CALCIUM 10.3 MG/DL 07/30/2013 COMPREHENSIVE METABOLIC 54384 POTASSIUM 5.0 MMOL/L 07/30/2013 COMPREHENSIVE METABOLIC 49178 PROT TOT 7.3 GM/DL 07/30/2013 COMPREHENSIVE METABOLIC 50363 Glucose 89 MG/DL 07/30/2013 COMPREHENSIVE METABOLIC 18794 BICARB 24 MMOL/L 07/30/2013 COMPREHENSIVE METABOLIC 90649 ANION GAP 6 MEQ/L 07/30/2013 GFR CALC 2005845 GFR AA 48.0L ML/MIN 07/30/2013 GFR CALC 4384469 GFR NON -AA 40.0L ML/MIN 4 COMPLETE BLOOD COUNT 7485926 WBC 7.9 10e9/L 07/30/2013 COMPLETE BLOOD COUNT 1259566 RBC 4.94 10e12/L 4 COMPLETE BLOOD COUNT 9545325 HGB 14.0 g/dL 07/30/2013 COMPLETE BLOOD COUNT 2791242 HCT DET 41.5 % 07/30/2013 COMPLETE BLOOD COUNT 3823824 MCV 84.0 fL 07/30/2013 COMPLETE BLOOD COUNT 0155019 MCH 28.3 pg 07/30/2013 COMPLETE BLOOD COUNT 0953474 MCHC 33.7 g/dL 07/30/2013 COMPLETE BLOOD COUNT 6176259 PLT 176 10e9/L 07/30/2013 COMPLETE BLOOD COUNT 9232508 MPV 11.8 fL 07/30/2013 COMPLETE BLOOD COUNT 6236971 CLAYTON % 75.4 % 07/30/2013 COMPLETE BLOOD COUNT 6780368 LY % 13.7 % 07/30/2013 COMPLETE BLOOD COUNT 9542085 MON % 8.9 % 07/30/2013 COMPLETE BLOOD COUNT 8346670 EOS % 1.7 % 07/30/2013 COMPLETE BLOOD COUNT 0858034 BASO % 0.3 % 07/30/2013 COMPLETE BLOOD COUNT 9332970 RDW 13.4 % 07/30/2013 COMPLETE BLOOD COUNT 0189059 ABS CLAYTON 5.96 10e9/L 07/30/2013 COMPLETE BLOOD COUNT 7386865 ABS LYMPH 1.08 10e9/L 07/30/2013 COMPLETE BLOOD COUNT 3454533 ABS MONO 0.70 10e9/L 07/30/2013 COMPLETE BLOOD COUNT 3789021 ABS EOS 0.13 10e9/L 07/30/2013 COMPLETE BLOOD COUNT 3766926 ABS BASO 0.02 10e9/L 07/30/2013 COMPLETE BLOOD COUNT 6381775 RDW-SD 40.2 fL 07/30/2013 C-REACTIVE PROTEIN (CRP) QUANT 59359 CRP 0.2 MG/DL 07/30/2013 CANCEL 4606791 CANCEL FOOTNOTE 05/23/2012 PEND CHEM PEND C HEM FOOTNOTE 05/22/2012 COMPREHENSIVE METABOLIC 04248 AST 61 U/L 05/21/2012 COMPREHENSIVE METABOLIC 31434 ALT 106 U/L 05/21/2012 COMPREHENSIVE METABOLIC 66334 BUN 33 MG/DL 05/21/2012 COMPREHENSIVE METABOLIC 38416 ALBUMIN 5.0 GM/DL 05/21/2012 COMPREHENSIVE METABOLIC 43309 CHLORIDE 89 MMOL/L 05/21/2012 COMPREHENSIVE METABOLIC 38603 BILI TOT 0.6 MG/DL 05/21/2012 COMPREHENSIVE METABOLIC 31715 ALK PHOS 129 U/L 05/21/2012 COMPREHENSIVE METABOLIC 45259 SODIUM 120 MMOL/L 05/21/2012 COMPREHENSIVE METABOLIC 69626 CREATININE 2.23 MG/DL 05/21/2012 COMPREHENSIVE METABOLIC 99048 CALCIUM 9.8 MG/DL 05/21/2012 COMPREHENSIVE METABOLIC 62842 POTASSIUM 5.3 MMOL/L 05/21/2012 COMPREHENSIVE METABOLIC 19295 PROT TOT 7.8 GM/DL 05/21/2012 COMPREHENSIVE METABOLIC 40245 Glucose 789 MG/DL 05/21/2012 COMPREHENSIVE METABOLIC 54527 BICARB 20 MMOL/L 05/21/2012 COMPREHENSIVE METABOLIC 26934 ANION GAP 11 MMOL/L 05/21/2012 GFR CALC 8263410 GFR AA 43.0L ML/MIN 05/21/2012 GFR CALC 6029153 GFR NON -AA 36.0L ML/MIN 2 THYROID STIMULATING HORMONE 76563 TSH 1.499 uIU/ML 1 FREE T4 57935 FREE T4 1.15 NG/DL 01/27/2011 Review of [...] Procedures Procedure Codes Date ROUTINE VENIPUNCTURE CPT-4: 00601 02/19/2019 METABOLIC PANEL TOTA L CA CPT-4: 14170 02/19/2019 MICROALBUMIN, QUANTI TATIVE CPT-4: 20212 02/19/2019 LIPID PANEL CPT-4: 43133 02/19/2019 COMPREHEN METABOLIC PANEL CPT-4: 38617 02/19/2019 ASSAY OF MAGNESIUM CPT- 4: 00731 02/19/2019 METABOLIC PANEL TOTA L CA CPT-4: 33254 08/24/2018 COMPREHEN METABOLIC PANEL CPT-4: 89649 08/24/2018 ASSAY OF MAGNESIUM CPT- 4: 59197 08/24/2018 MICROALBUMIN QUANTIT ATIVE CPT-4: 74799 08/24/2018 PROTEIN/CREAT URINE WITH RATIO CPT-4: 67307|48417 08/24/2018 PHOSPHORUS CPT-4: 1345384 08/24/2018 LIPID PANEL CPT-4: 57130 08/24/2018 ROUTINE VENIPUNCTURE CPT-4: 51145 06/29/2018 A1C HPLC CPT-4: 16670 06/29/2018 URINALYSIS NONAUTO W /O SCOPE CPT-4: 69535 02/06/2018 URINE CULTURE/ COLON Y COUNT CPT-4: 69872 02/06/2018 MICROALBUMIN QUANTIT ATIVE CPT-4: 33303 02/06/2018 ROUTINE VENIPUNCTURE CPT-4: 17707 02/06/2018 COMPREHEN METABOLIC PANEL CPT-4: 96923 02/06/2018 A1C HPLC CPT-4: 32746 02/06/2018 ROUTINE VENIPUNCTURE CPT-4: 84769 11/02/2017 COMPREHEN METABOLIC PANEL CPT-4: 96693 11/02/2017 A1C HPLC CPT-4: 30933 11/02/2017 TDAP VACCINE 7 YRS/> IM CPT-4: 11762 07/27/2017 IMMUNIZATION ADMIN CPT- 4: 91651 07/27/2017 URINALYSIS NONAUTO W /O SCOPE CPT-4: 65112 02/16/2016 URINE CULTURE/ COLON Y COUNT CPT-4: 52662 02/16/2016 PRESCRIP TRANSMIT A ERX SY CPT-4: G8553 02/16/2016 ROUTINE VENIPUNCTURE CPT-4: 38570 12/03/2015 ASSAY THYROID STIM H ORMONE CPT-4: 39094 12/03/2015 COMPREHEN METABOLIC PANEL CPT-4: 18652 12/03/2015 A1C HPLC CPT-4: 80361 12/03/2015 ASSAY OF MAGNESIUM CPT- 4: 67179 12/03/2015 URINALYSIS NONAUTO W /O SCOPE CPT-4: 55843 12/03/2015 URINE CULTURE/ COLON Y COUNT CPT-4: 82844 12/03/2015 URINALYSIS NONAUTO W /O SCOPE CPT-4: 64729 07/30/2013 URINE CULTURE/ COLON Y COUNT CPT-4: 14648 07/30/2013 ROUTINE VENIPUNCTURE CPT-4: 48452 07/30/2013 COMPLETE CBC W/AUTO DIFF WBC CPT-4: 15005 07/30/2013 COMPREHEN METABOLIC PANEL CPT-4: 16503 07/30/2013 C-REACTIVE PROTEIN CPT- 4: 68842 07/30/2013 ROUTINE VENIPUNCTURE CPT-4: 79751 08/20/2012 ASSAY OF FREE THYROXINE CPT-4: 35542 08/20/2012 ASSAY THYROID STIM H ORMONE CPT-4: 70290 08/20/2012 COMPREHEN METABOLIC PANEL CPT-4: 59093 08/20/2012 COMPLETE CBC W/AUTO DIFF WBC CPT-4: 59049 08/20/2012 LIPID PANEL CPT-4: 29917 08/20/2012 A1C GLYCOSYLATED HEM OGLOBIN TEST CPT-4: 44347 08/20/2012 ASSAY, GLUCOSE, BLOO D QUANT CPT-4: 23358 06/21/2012 ASSAY, GLUCOSE, BLOO D QUANT CPT-4: 26578 05/21/2012 ROUTINE VENIPUNCTURE CPT-4: 37320 05/21/2012 COMPREHEN METABOLIC PANEL CPT-4: 31497 05/21/2012 A1C GLYCOSYLATED HEM OGLOBIN TEST CPT-4: 31178 05/21/2012 CURRENT [employer] USER CPT-4: G8456 06/14/2011 PT VIS DOC USE EHR C ER ATCB CPT-4: G8447 06/14/2011 PRESCRIP TRANSMIT A ERX SY CPT-4: G8553 06/14/2011 PT VIS DOC USE EHR C ER ATCB CPT-4: G8447 03/03/2011 PRESCRIP TRANSMIT A ERX SY CPT-4: G8553 03/03/2011 ROUTINE VENIPUNCTURE CPT-4: 34526 01/27/2011 ASSAY OF FREE THYROXINE CPT-4: 59040 01/27/2011 ASSAY THYROID STIM H ORMONE CPT-4: 64404 01/27/2011 PT VIS DOC USE EHR C [...] 1: 158/90 Code: 8480-6 BMI: 34.3 Code: 26446-6 Heart Rate 1: 78 bpm Height: 6'1" Respiratory Rate: 20 bpm SpO2: 98% Temperature: 36.6 (C ) / 97.8 (F) Weight: 260 lbs 11/02/2017 Blood Pressure 1: 134/92 Code: 8480-6 BMI: 32.3 Code: 65442-9 Heart Rate 1: 72 bpm Height: 6'1" SpO2: 98% Temperature: 36.4 (C ) / 97.5 (F) Weight: 245 lbs 07/27/2017 Blood Pressure 1: 136/64 Code: 8480-6 BMI: 30.9 Code: 38979-1 Heart Rate 1: 78 bpm Height: 6'1" Respiratory Rate: 22 bpm SpO2: 98% Temperature: 36.4 (C ) / 97.6 (F) Weight: 234 lbs 04/05/2017 Blood Pressure 1: 126/90 Code: 8480-6 BMI: 33.5 Code: 25458-2 Heart Rate 1: 76 bpm Height: 6'1" Respiratory Rate: 20 bpm SpO2: 97% Temperature: 37.0 (C ) / 98.6 (F) Weight: 254 lbs 06/20/2016 Blood Pressure 1: 122/74 Code: 8480-6 BMI: 35.2 Code: 66941-3 Heart Rate 1: 80 bpm Height: 6'1" Respiratory Rate: 20 bpm SpO2: 97% Temperature: 36.9 (C ) / 98.5 (F) Weight: 267 lbs 02/16/2016 Blood Pressure 1: 136/82 Code: 8480-6 BMI: 36.4 Code: 97130-6 Heart Rate 1: 66 bpm Height: 6'1" Respiratory Rate: 18 bpm SpO2: 96% Temperature: 36.4 (C ) / 97.6 (F) Weight: 276 lbs 12/03/2015 Blood Pressure 1: 122/86 Code: 8480-6 BMI: 39.2 Code: 02305-6 Heart Rate 1: 76 bpm Height: 6' Respiratory Rate: 20 bpm Temperature: 37.1 (C ) / 98.7 (F) Weight: 289 lbs 06/24/2015 Blood Pressure 1: 136/84 Code: 8480-6 BMI: 40.7 Code: 13549-1 Heart Rate 1: 84 bpm Height: 6' Respiratory Rate: 20 bpm Temperature: 36.9 (C ) / 98.4 (F) Weight: 300 lbs 06/11/2015 Blood Pressure 1: 160/82 Code: 8480-6 BMI: 40.4 Code: 01840-9 Heart Rate 1: 82 bpm Height: 6' Respiratory Rate: 22 bpm Temperature: 36.5 (C ) / 97.7 (F) Weight: 298 lbs 07/17/2014 Blood Pressure 1: 132/84 Code: 8480-6 BMI: 41.0 Code: 25964-9 Heart Rate 1: 76 bpm Height: 6'1" Respiratory Rate: 20 bpm Temperature: 36.9 (C ) / 98.4 (F) Weight: 311 lbs 10/31/2013 Blood Pressure 1: 132/80 Code: 8480-6 BMI: 41.2 Code: 70280-5 Heart Rate 1: 84 bpm Height: 6'1" Respiratory Rate: 22 bpm Temperature: 36.1 (C ) / 97.0 (F) Weight: 312 lbs 08/01/2013 Blood Pressure 1: 142/86 Code: 8480-6 BMI: 42.4 Code: 50920-3 Heart Rate 1: 84 bpm Height: 6' [...] 1: 156/108 Code: 8480-6 BMI: 41.9 Code: 70999-4 Heart Rate 1: 92 bpm Height: 6' Respiratory Rate: 20 bpm Temperature: 36.9 (C ) / 98.4 (F) Weight: 309 lbs 02/27/2013 Blood Pressure 1: 162/114 Code: 8480-6 BMI: 41.0 Code: 21455-7 Heart Rate 1: 84 bpm Height: 6' Respiratory Rate: 20 bpm Temperature: 36.7 (C ) / 98.0 (F) Weight: 302 lbs 01/01/2013 Blood Pressure 1: 138/86 Code: 8480-6 BMI: 41.0 Code: 11723-5 Heart Rate 1: 76 bpm Height: 6' Respiratory Rate: 20 bpm Temperature: 36.7 (C ) / 98.0 (F) Weight: 302 lbs 11/27/2012 Blood Pressure 1: 136/92 Code: 8480-6 BMI: 41.2 Code: 13841-6 Heart Rate 1: 80 bpm Height: 6' Respiratory Rate: 20 bpm Temperature: 36.6 (C ) / 97.8 (F) Weight: 304 lbs 08/28/2012 Blood Pressure 1: 126/80 Code: 8480-6 BMI: 41.8 Code: 56573-1 Heart Rate 1: 80 bpm Height: 6' Respiratory Rate: 20 bpm Temperature: 36.4 (C ) / 97.6 (F) Weight: 308 lbs 07/03/2012 Blood Pressure 1: 114/80 Code: 8480-6 BMI: 42.3 Code: 11799-3 Heart Rate 1: 72 bpm Height: 6' Respiratory Rate: 20 bpm Temperature: 36.6 (C ) / 97.9 (F) Weight: 312 lbs 06/21/2012 Blood Pressure 1: 152/100 Code: 8480-6 BMI: 43.3 Code: 79521-2 Heart Rate 1: 72 bpm Height: 6' Temperature: 36.8 (C ) / 98.2 (F) Weight: 319 lbs 05/30/2012 Blood Pressure 1: 122/78 Code: 8480-6 BMI: 43.0 Code: 80669-5 Heart Rate 1: 72 bpm Height: 6' Respiratory Rate: 20 bpm Temperature: 36.7 (C ) / 98.0 (F) Weight: 317 lbs 05/21/2012 Blood Pressure 1: 126/94 Code: 8480-6 BMI: 44.2 Code: 69588-5 Heart Rate 1: 92 bpm Height: 6' Respiratory Rate: 20 bpm Temperature: 36.6 (C ) / 97.9 (F) Weight: 326 lbs 01/24/2012 Blood Pressure 1: 122/90 Code: 8480-6 BMI: 44.5 Code: 00282-8 Heart Rate 1: 76 bpm Height: 6' Respiratory Rate: 20 bpm Temperature: 36.8 (C ) / 98.2 (F) Weight: 328 lbs 09/21/2011 Blood Pressure 1: 116/80 Code: 8480-6 BMI: 44.1 Code: 36621-8 Heart Rate 1: 92 bpm Height: 6' Respiratory Rate: 20 bpm Temperature: 36.7 (C ) / 98.1 (F) Weight: 325 lbs 09/12/2011 Blood Pressure 1: 166/110 Code: 8480-6 BMI: 45.0 Code: 19499-4 Heart Rate 1: 80 bpm Height: 6' Respiratory Rate: 20 bpm Temperature: 36.5 (C ) / 97.7 (F) Weight: 332 lbs 06/14/2011 Blood Pressure 1: 142/84 Code: 8480-6 BMI: 45.6 Code: 65853-5 Heart Rate 1: 104 bpm Height: 6' Respiratory Rate: 20 bpm Temperature: 36.4 (C ) / 97.5 (F) Weight: 336 lbs 03/03/2011 Blood Pressure 1: 130/96 Code: 8480-6 Heart Rate 1: 86 bpm Temperature: 36.1 (C) / 97.0 (F) Weight: 327 lbs 01/27/2011 Blood Pressure 1: 142/96 Code: 8480-6 BMI: 42.0 Code: 03816-1 Heart Rate 1: 72 bpm Height: 6'2" [...] 11/27/2012 in elbow--seen in Urgent care in [place] and started on abx cellulitis Onset and [...] and Resolution ongoing 06/21/2012 been out of [facility] didn't have diabetes mellitus Blood glucose [...] 06/14/2011 daily at work hypertension Quality marky jessiac hypertension 03/03/2011 None hypertension Onset and Resolution [...] Encounters Encounter Performer Loca tion Codes Date ([id number]) NURSE/OUTPAT IENT VISIT EST Diagnosis: 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, 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] Diagnosis: Essential (primary) hypertension[ICD10: I10] Diagnosis: Other specified hypothyroidism[ICD10: E03.8] Diagnosis: Mixed hyperlipidemia[ICD10: E78.2] Galina LAGUERRE CPT-4: 78896 02/19/2019 ([id number]) NURSE/OUTPAT IENT VISIT EST Diagnosis: Kidney transplant status[ICD10: Z94.0] 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] Diagnosis: Other jail (current) drug therapy[ICD10: Z79.899] Diagnosis: Encounter for aftercare following other organ transplant[ICD10: Z48.298] Diagnosis: Mixed hyperlipidemia[ICD10: E78.2] Galina ARTEAGA [employer] CPT-4: 87331 08/24/2018 ([id number]) NURSE/OUTPAT IENT VISIT EST Diagnosis: Type 2 diabetes mellitus with diabetic neuropathy, unspecified[ICD10: E11.40] Diagnosis: Type 2 diabetes mellitus with hyperglycemia[ICD10: E11.65] 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] Diagnosis: Essential (primary) hypertension[ICD10: I10] Galina ARTEAGA [employer] CPT-4: 92763 06/29/2018 ([id number]) OFFICE/OUTPA TIENT VISIT EST Diagnosis: Slow transit constipation[ICD10: K59.01] Diagnosis: Epigastric pain[ICD10: R10.13] Diagnosis: Type 2 diabetes mellitus with hyperglycemia[ICD10: E11.65] Coleen SMITH [employer] CPT-4: 27906 06/26/2018 ([id number]) OFFICE/OUTPA TIENT VISIT EST Diagnosis: Right lower quadrant pain[ICD10: R10.31] Diagnosis: Type 2 diabetes mellitus with diabetic neuropathy, unspecified[ICD10: E11.40] Coleen SMITH [employer] CPT-4: 82039 02/06/2018 ([id number]) OFFICE/OUTPA TIENT VISIT EST Diagnosis: Type 2 diabetes mellitus with hyperglycemia[ICD10: E11.65] Diagnosis: Mixed hyperlipidemia[ICD10: E78.2] Diagnosis: Essential (primary) hypertension[ICD10: I10] Coleen CHENEY [employer] CPT-4: 79215 11/02/2017 ([id number]) PREV VISIT E ST AGE 18-39 Diagnosis: Encounter for general adult medical examination with abnormal findings[ICD10: Z00.01] Diagnosis: Abrasion of right hand, initial encounter[ICD10: S60.511A] 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] Coleen SMITH [facility] CPT-4: 58217 07/27/2017 OFFICE/OUTPATIENT SIT EST 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] Diagnosis: Tinea pedis[ICD10: B35.3] Coleen SMITH [facility] CPT-4: 33662 04/05/2017 ([id number]) OFFICE/OUTPA TIENT VISIT EST Diagnosis: 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, 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] Diagnosis: Mixed hyperlipidemia[ICD10: E78.2] Diagnosis: Essential (primary) hypertension[ICD10: I10] Galina MEJIALINE Meron ARTEAGA [facility] CPT-4: 01798 06/20/2016 ([id number]) OFFICE/OUTPA TIENT VISIT EST Diagnosis: Urinary tract infection, site not specified[ICD10: N39.0] Missy Dc GALINA Meron SMITH [facility] CPT-4: 48356 02/16/2016 ([id number]) OFFICE/OUTPA TIENT VISIT EST Diagnosis: Type 2 diabetes mellitus with hyperglycemia[ICD10: E11.65] Diagnosis: Cramp and spasm[ICD10: R25.2] Diagnosis: Hematuria, unspecified[ICD10: R31.9] Galina Luis MEJIALINE Meron ARTEAGA [facility] CPT-4: 12226 12/03/2015 OFFICE/OUTPATIENT SIT EST Diagnosis: Type 2 diabetes mellitus with diabetic neuropathy, unspecified[ICD10: E11.40] Alejandra Billy GALINA SMITH [facility] CPT-4: 36744 06/24/2015 ([id number]) OFFICE/OUTPA TIENT VISIT EST Diagnosis: Acute sinusitis, unspecified[ICD10: J01.90] Diagnosis: Otitis media, unspecified, bilateral[ICD10: H66.93] Galina Luis GALINA Meron ARTEAGA [facility] CPT-4: 24118 06/11/2015 ([id number]) OFFICE/OUTPA TIENT VISIT EST Diagnosis: 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[ICD9: 250.01] Diagnosis: HYPERTENSION[ICD9: 401.9] Diagnosis: HYPERLIPIDEMIA NEC/NOS[ICD9: 272.4] Diagnosis: KIDNEY TRANSPLANT STATUS[ICD9: V42.0] Galina ARTEAGA [facility] CPT-4: 68089 07/17/2014 ([id number]) OFFICE/OUTPA TIENT VISIT EST Diagnosis: 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[ICD9: 250.01] Diagnosis: HYPERTENSION[ICD9: 401.9] Galina SMITH [facility] CPT-4: 97617 10/31/2013 ([id number]) OFFICE/OUTPA TIENT VISIT EST Diagnosis: 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I[ICD9: 250.00] Diagnosis: HYPERTENSION[ICD9: 401.9] Diagnosis: HYPERLIPIDEMIA NEC/NOS[ICD9: 272.4] Galina CASANOVAR [facility] CPT-4: 13574 08/01/2013 OFFICE/OUTPATIENT SIT EST Diagnosis: HEMATURIA NOS[ICD9: 599.70] Diagnosis: Abdominal pain, acute, right lower quadrant[ICD9: 789.03] Diagnosis: KIDNEY TRANSPLANT STATUS[ICD9: V42.0] Alejandra Santiagoleonelwill GALINA RIVAS [facility] CPT-4: 50952 07/30/2013 ([id number]) OFFICE/OUTPA TIENT VISIT EST Diagnosis: Uncontrolled hypertension[ICD9: 401.9] Diagnosis: BRIEF DEPRESSIVE REACT[ICD9: 309.0] Galina CASANOVAR [facility] CPT-4: 31329 05/30/2013 ([id number]) OFFICE/OUTPA TIENT VISIT EST Diagnosis: HYPERTENSION[ICD9: 401.9] Diagnosis: Anticipatory grieving[ICD9: 309.0] Galina ROD NDER [employer] [facility] CPT-4: 52902 04/29/2013 ([id number]) OFFICE/OUTPA TIENT VISIT EST Diagnosis: DM W/O COMPLICATION TYPE II, UNCONTROLLED[ICD9: 250.02] Diagnosis: HYPERTENSION[ICD9: 401.9] Diagnosis: HYPOTHYROIDISM[ICD9: 244.9] Diagnosis: KIDNEY TRANSPLANT STATUS[ICD9: V42.0] Galina ASENCIO SusuKarol MARCEL ARTEAGA [facility] CPT-4: 94488 02/27/2013 OFFICE/OUTPATIENT SIT EST Diagnosis: Paronychia[ICD9: 681.9] Diagnosis: ONYCHOMYCOSIS[ICD9: 110.1] Viky DENNISONQUELINE SusuKarol LUIS [facility] CPT-4: 46151 01/01/2013 ([id number]) OFFICE/OUTPA TIENT VISIT EST Diagnosis: DM W/O COMPLICATION TYPE II, UNCONTROLLED[ICD9: 250.02] Diagnosis: HYPERLIPIDEMIA NEC/NOS[ICD9: 272.4] Diagnosis: HYPERTENSION[ICD9: 401.9] Diagnosis: KIDNEY TRANSPLANT STATUS[ICD9: V42.0] Diagnosis: HYPOTHYROIDISM[ICD9: 244.9] Galina ASENCIO SusuKarol LUIS [facility] CPT-4: 25297 11/27/2012 ([id number]) OFFICE/OUTPA TIENT VISIT EST Diagnosis: DM W/O COMPLICATION TYPE II[ICD9: 250.00] Diagnosis: HYPOTHYROIDISM[ICD9: 244.9] Diagnosis: HYPERLIPIDEMIA NEC/NOS[ICD9: 272.4] Diagnosis: HYPERTENSION[ICD9: 401.9] Galina Chance MARCELABRILSHRAVAN [facility] CPT-4: 62909 08/28/2012 ([id number]) OFFICE/OUTPA TIENT VISIT EST Diagnosis: HYPOTHYROIDISM[ICD9: 244.9] Diagnosis: DM W/O COMPLICATION TYPE II, UNCONTROLLED[ICD9: 250.02] Diagnosis: HYPERLIPIDEMIA NEC/NOS[ICD9: 272.4] Diagnosis: KIDNEY TRANSPLANT STATUS[ICD9: V42.0] Diagnosis: HYPERTENSION[ICD9: 401.9] Galina Chance LUIS [facility] CPT-4: 49874 08/20/2012 OFFICE/OUTPATIENT SIT EST Diagnosis: DM W/O COMPLICATION TYPE II, UNCONTROLLED[ICD9: 250.02] Diagnosis: HYPERTENSION[ICD9: 401.9] Galina Chance LUIS [facility] CPT-4: 16066 07/03/2012 OFFICE/OUTPATIENT SIT EST Diagnosis: DM W/O COMPLICATION TYPE II, UNCONTROLLED[ICD9: 250.02] Diagnosis: HYPERTENSION[ICD9: 401.9] Galina SMITH [facility] CPT-4: 04092 06/21/2012 OFFICE/OUTPATIENT SIT EST Diagnosis: DM W/O COMPLICATION TYPE II, UNCONTROLLED[ICD9: 250.02] Diagnosis: HYPERTENSION[ICD9: 401.9] Diagnosis: HYPERLIPIDEMIA NEC/NOS[ICD9: 272.4] Diagnosis: KIDNEY TRANSPLANT STATUS[ICD9: V42.0] Galina ARTEAGA [facility] CPT-4: 02787 05/30/2012 ([id number]) OFFICE/OUTPA TIENT VISIT EST Diagnosis: HYPERTENSION[ICD9: 401.9] Diagnosis: VISUAL DISTURBANCE[ICD9: 368.9] Galina SMITH [facility] CPT-4: 86583 05/21/2012 ([id number]) OFFICE/OUTPA TIENT VISIT EST Diagnosis: HYPERTENSION[ICD9: 401.9] Diagnosis: HYPOTHYROIDISM[ICD9: 244.9] Diagnosis: KIDNEY TRANSPLANT STATUS[ICD9: V42.0] Galina ARTEAGA [facility] CPT-4: 86143 01/24/2012 OFFICE/OUTPATIENT SIT EST Diagnosis: DIZZINESS/VERTIGO[ICD9: 780.4] Diagnosis: HYPERTENSION[ICD9: 401.9] Galina SMITH [facility] CPT-4: 15325 09/21/2011 ([id number]) OFFICE/OUTPA TIENT VISIT EST Diagnosis: HYPERTENSION[ICD9: 401.9] Diagnosis: HYPOTHYROIDISM[ICD9: 244.9] Diagnosis: HYPERLIPIDEMIA NEC/NOS[ICD9: 272.4] Diagnosis: KIDNEY TRANSPLANT STATUS[ICD9: V42.0] Galina ARTEAGA [facility] CPT-4: 17533 09/12/2011 OFFICE/OUTPATIENT SIT EST Diagnosis: HYPOTHYROIDISM[ICD9: 244.9] Diagnosis: HYPERTENSION[ICD9: 401.9] Diagnosis: CEPHALGIA[ICD9: 784.0] Galina SMITH [facility] CPT-4: 49073 06/14/2011 OFFICE/OUTPATIENT SIT EST Diagnosis: HYPERTENSION[ICD9: 401.9] Diagnosis: PHARYNGITIS, ACUTE[ICD9: 462] Diagnosis: HYPOTHYROIDISM[ICD9: 244.9] Galina SMITH DO [employer] CPT-4: 50456 03/03/2011 OFFICE/OUTPATIENT SIT EST Diagnosis: HYPOTHYROIDISM[ICD9: 244.9] Diagnosis: KIDNEY TRANSPLANT STATUS[ICD9: V42.0] Diagnosis: HYPERTENSION[ICD9: 401.9] Diagnosis: SINUSITIS, ACUTE[ICD9: 461.9] Galinamarino SMITH DO [employer] CPT-4: 71884 01/27/2011 ([id number]) OFFICE/OUTPA TIENT VISIT EST Galina ARTEAGA [employer] CPT-4: 37010 12/02/2010 Plan of Care Planned Activity Notes C odes Status Date Appointment: Galina Smith WPtel: [address] [place] [address] LAB 02/19/2019 Appointment: Coleen Frey [address] had 2 flat tires this morning. NO SHOW - FORGIVEN 02/19/2019 Appointment: Galina Smith WPtel: [address] [place] [address] LAB 08/24/2018 Appointment: Galina Smith WPtel: [address] [place] [address] LAB 06/29/2018 Visit Diagnosis Plan: Epigastric pain [...] he had labs done in dec at [facility]. will obtain lab results and order additional labs as needed. ICD-9 : 250.02 ICD-10 : E11.65 06/26/2018 Appointment: Coleen Frey [address] [place], [place] [phone] ACUTE ILLNESS 06/26/2018 Visit [...] ICD-10 : R10.31 02/06/2018 Appointment: Coleen Frey [address] [place], [place] [phone] ACUTE ILLNESS 02/06/2018 Patient Education: Patient Medication [...] ICD-10 : E11.65 11/02/2017 Appointment: Coleen Frey [address] [place], [place] [phone] FOLLOW UP 11/02/2017 Patient Education: Patient Medication Summary Completed 11/02/2017 Visit Diagnosis Plan: Abrasion of right hand, initial encounter Discussion: keflex prescribed for infect ion. instructed patient to call or rtc next week if no improvement. keep area clean and dry. ICD-9 : 914.0 ICD-10 : S60.511A 07/27/2017 Visit Diagnosis Plan: Encounter for [facility] adult medical examination with abnormal findings [...] ICD-10 : E11.59 07/27/2017 Appointment: Coleen Frey [address] [place], [place] [phone] Annual Well Visit 07/27/2017 Patient Education: Patient [...] : B35.3 04/05/2017 [id number] 04/05/2017 Patient Education: Patient Medication Summary Completed 04/05/2017 Patient Education: Patient Medication Summary Completed 04/05/2017 Care Plan: CBC Pending 04/05/2017 Care Plan: LIPID PANEL LOINC : 54867-8 Pending 04/05/2017 Care Plan: COMPREHEN METABOLIC PANEL LOINC : 11820-3 Pending 04/05/2017 Visit Plan: Patient admits that [...] scale given 06/20/2016 Appointment: Galina Smith WPtel: [address] [place], [place] [phone] 06/16 lm-sp 06/20 lm ~sl FOLLOW UP 06/20/2016 Patient Education: Patient Medication Summary Completed 06/20/2016 Patient Education: Patient Medication Summary Completed 05/04/2016 Care Plan: COMPREHEN METABOLIC PANEL LOINC : 34749-5 Pending 05/04/2016 Care Plan: CBC Pending 05/04/2016 Care Plan: LIPID PANEL LOINC : 55022-1 Pending 05/04/2016 Care Plan: A1C HPLC LO INC : 87219-1 Pending 05/04/2016 Visit Plan: Discussed with Dr Norwood er Treatment as above while awaiting specialist to return his call Push fluids Follow up celine if not improving 02/16/2016 Visit Plan: Discussed with Dr Norwood er Treatment as above while awaiting specialist to return his call Push fluids Follow up celine if not improving 02/16/2016 Appointment: Missy Dc [address] ACUTE ILLNESS 02/16/2016 Patient Education: Patient [...] as well 12/03/2015 Appointment: Galina Smith WPtel: [address] [place], [place] [phone] ACUTE ILLNESS 12/03/2015 Patient Education: Patient Medication [...] is improved. 06/24/2015 Appointment: Alejandra Billy WPtel: [address] [place], [place] [phone] ACUTE ILLNESS 06/24/2015 Patient Education: Patient Medication Summary Completed 06/24/2015 Patient Education: Lyrica - 18+ - No MA NE Completed 06/24/2015 Visit Plan: Saline nasal flushes pr n. Tylenol/Motrin prn headache. Notify if persists/symptoms worsening. Obtain most recent lab Warned of increased BS with prednisone--has sliding scale to use 06/11/2015 Appointment: Galina Smith WPtel: [address] [place] [address] 06/10/15 cn....06/10/15 appt confirme d cn Annual Well Visit 05/14 Patient Education: Patient Medication Summary Completed 06/11/2015 Appointment: Galina Smith WPtel: [address] [place], [place] [phone] FOLLOW UP 10/15/2014 Patient Education: Patient Medication Summary Completed 09/03/2014 Care Plan: COMPREHEN METABOLIC PANEL LOINC : 43231-7 Ordered 09/03/2014 Visit Plan: Obtain most recent lab results Will likely need HbA1C and Lipids if were not done Accuchecks q AC and HS 07/17/2014 Appointment: Galina Smith WPtel: [address] [place], [place] [phone] FOLLOW UP 07/17/2014 Patient Education: Patient Medication Summary Completed 07/17/2014 Appointment: Galina Smith WPtel: [address] [place], [place] [phone] 01/29 01/30 NO SHOW FOLLOW UP 01/30/2014 Visit Plan: Check CMP, HbA1C, CBC, Lipids Pt sees transplant doctor next month Pt is currently just using insulin prn and monitering BS 10/31/2013 Appointment: Galina Smith WPtel: [address] [place] [address] FOLLOW UP 10/31/2013 Patient Education: Patient Medication Summary Completed 10/31/2013 Visit Plan: Continue current meds a nd acuchecks 08/01/2013 Appointment: Galina Smith WPtel: [address] [place] [address] 07/31 FOLLOW UP 08/01/2013 Patient Education: Patient Medication Summary Completed 08/01/2013 Visit Plan: CBC, CMP, CRP To [facility] for CT abdomen/Pelvis w/o contrast 07/30/2013 Appointment: Alejandra Billy WPtel: [address] [place] [address] ACUTE ILLNESS 07/30/2013 Patient Education: Patient Medication Summary Completed 07/30/2013 Visit Plan: Restart Diovan--pt says needs PA Continue fluoxetine at 20mg daily 05/30/2013 Appointment: Galina Smith WPtel: [address] [place] [address] FOLLOW UP 05/30/2013 Patient Education: Patient Medication Summary Completed 05/30/2013 Appointment: Galina Smith WPtel: [address] [place] [address] [place] has appt following day FOLLOW UP 05/29/2013 Visit Plan: Restart Diovan and Amlo dopine as has been out--new rx sent out Trial of Fluoxetine 20mg q AM Stress Reducers 04/29/2013 Appointment: Galina Smith WPtel: [address] [place] [address] 04/26 MOM made appt. confirmed monday ACUTE ILLNESS 04/29/2013 Patient Education: Patient Medication Summary Completed 04/29/2013 Visit Plan: Continue current meds a nd accuchecks Pt going for fasting lab next month 02/27/2013 Appointment: Galina Smith WPtel: [address] [place], [place] [phone] FOLLOW UP 02/27/2013 Patient Education: Patient Medication Summary Completed 02/27/2013 Appointment: Viky Acosta WPtel: [address] [place], [place] [phone] ACUTE ILLNESS 01/01/2013 Patient Education: Patient Medication Summary Completed 01/01/2013 Visit Plan: Continue current meds C heck fasting lab next week 11/27/2012 Appointment: Galina Smith WPtel: [address] [place] [address] FOLLOW UP 11/27/2012 Patient Education: Patient Medication Summary Completed 11/27/2012 Visit Plan: Lab discussed Continue current meds and accuchecks Pt sees transplant doctor in in October Check fasting lab and fwup in os 08/28/2012 Appointment: Galina Smith WPtel: [address] [place], [place] [phone] 08/27 FOLLOW UP 08/28/2012 Patient Education: Patient Medication Summary Completed 08/28/2012 Appointment: Galina Smith WPtel: [address] [place], [place] [phone] LAB 08/20/2012 Patient Education: Patient Medication Summary Completed 08/20/2012 Visit Plan: Continue levemir at cur rent dose with accuchecks Use apidra with sliding scale Check Chem 7 and HbA1C in 2mos 07/03/2012 Appointment: Galina Smith WPtel: [address] [place], [place] [phone] 07/02 vm FOLLOW UP 07/03/2012 Patient Education: [...] 320mg daily 06/21/2012 Appointment: Galina Smith WPtel: [address] [place], [place] [phone] ACUTE ILLNESS 06/21/2012 Patient Education: Patient Medication Summary Completed 06/21/2012 Visit Plan: Increase Levemir to 75 u sc q PM Continue sliding scale insulin with accuchecks q AC and HS Call in 1wk with BS readings 05/30/2012 Appointment: Galina Smith WPtel: [address] [place], [place] [phone] Hospital Follow Up 05/30/2012 Patient Education: Patient Medication Summary Completed 05/30/2012 Appointment: Galina Smith WPtel: [address] [place], [place] [phone] 05/21 - cancelled appointment for 05/22 because PT was worked in on 05/21 FOLLOW UP 05/22/2012 Visit Plan: Obtain lab done last mo from [facility] See optometry for dilated eye exam and eye pressures today May need CT head pending results of eye evaluation 05/21/2012 Appointment: Galina Smith WPtel: [address] [place], [place] [phone] WORK IN 05/21/2012 Appointment: Galina Smith WPtel: [address] [place], [place] [phone] [place] LAB 05/21/2012 Patient Education: Patient Medication Summary Completed 05/21/2012 Visit Plan: Continue current meds O btain most recent lab done at [facility] See eye doctor today for dilated exam and eye pressures May need CT head pending dilated eye exam results 01/24/2012 Visit Plan: Continue current meds O btain most recent lab done at [facility] 01/24/2012 Visit Plan: Continue current meds C heck CBC, CMP, TSH, Free T4 01/24/2012 Appointment: Galina Smith WPtel: [address] [place], [place] [phone] FOLLOW UP 01/24/2012 Patient Education: Patient Medication Summary Completed 01/24/2012 Visit Plan: Decrease Norvasc to 2.5 mg daily Check CBC, CMP, TSH, Free T4 09/21/2011 Appointment: Galina Smith WPtel: [address] [place], [place] [phone] ACUTE ILLNESS 09/21/2011 Patient Education: Patient Medication Summary Completed 09/21/2011 Visit Plan: Continue Diovan at curr ent dose Add amlodopine Check Lipids/LFTs with next lab 09/12/2011 Appointment: Galina Smith WPtel: [address] [place] [address] FOLLOW UP 09/12/2011 Patient Education: Patient Medication Summary Completed 09/12/2011 Visit Plan: Increase Diovan to 320m g po daily Check TSH and Free T4 with kidney lab next week 06/14/2011 Appointment: Galina Smith WPtel: [address] [place] [address] FOLLOW UP 06/14/2011 Patient Education: Patient Medication Summary Completed 06/14/2011 Visit Plan: Z-pack then new tootheb ivory Start Diovan 03/03/2011 Appointment: Galina Smith WPtel: [address] [place] [address] ACUTE ILLNESS 03/03/2011 Patient Education: Patient Medication Summary Completed 03/03/2011 Visit Plan: Check TSH, Free T4 toda y Pt will moniter BP at home See if treatment of sinuses helps headaches 01/27/2011 Appointment: Galina Smith WPtel: [address] [place], [place] [phone] FOLLOW UP 01/27/2011 Patient Education: Patient Medication Summary Completed 01/27/2011 Visit Plan: Continue current meds a nd proceed with lab per kidney transplant doctor Start Synthroid at 50mcg po daily 12/02/2010 Appointment: Galina Smith WPtel: [address] [place] [address] FOLLOW UP 12/02/2010 Patient Education: Patient Medication [...] lab done la [facility] mo from [facility] See optometry for dilated eye exam and [...] Obtain most recent lab done at [facility] See eye doctor today for dilated exam and eye pressures May need CT head pending dilated eye exam results . Continue current m eds Obtain most recent lab done at [facility] . Continue current m eds Check CBC, CMP, TSH, Free T4 . Continue current m eds and accuchecks Pt going for fasting lab next month . Check TSH, Free T4 today Pt will moniter BP at home See if treatment of sinuses helps headaches . CBC, CMP, CRP To [facility] for CT abdomen/Pelvis w/o contrast . [...] . Labs completed thi s am in [facility] but do not have results yet. Start Lyrica 75mg PO bid Will Call in a week and let know if pain is improved. . Labs completed thi s am in [facility] but do not have results yet. Start Lyrica 75mg PO bid Will Call in a week and let know if pain is improved. . Restart Diovan and Amlodopine as has been out--new rx sent out Trial of Fluoxetine 20mg q AM Stress Reducers
--- OUTSIDE RECORDS SUMMARY | 2019-08-21 00:28 | XMS REPORT | CCD ---
Author Author Cuauhtemoc Smith D.O. Organization [facility]INA [facility] DO [facility] Address [address] [place] [address] Phone Care Team Providers Care Machine Tool Technology Instructor Name Role Phone Galina Smith D.O., PP Unavailable CCM Unavailable Summary Purpose Interface Exchange Insurance Providers Payer name Policy type / Coverage type Covered alliance party ID Effective Begin Date Effective End Date Blue Cross Blue Shield Blue Cross/Bl ue Shield [id number] 2017 Un known Family History Family History data not found Social History Social History Element Codes Description Effective Dates Tobacco history SNOMED CT: [id number] Currently uses smokeless tobacco 06/14/2011 Allergies, Adverse [...] V42.0 ICD-10: Z94.0 Active 08/24/2018 Unknown 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 ICD-9: V58.69 ICD-10: [...] ICD-9: V42.0 ICD-10: Z94.0 08/24/2018 Active 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 ICD-9: V58.69 ICD-10: [...] aspart 100 unit/mL (3 mL) subcutaneous RxNorm: 5352752 INJECT SUBCUTANEOUSLY NEEDED PER SLIDING SCALE 02/22/2019 No Stop Date Active Levemir FlexTouch U- 100 Insulin 100 unit/mL (3 mL) subcutaneous pen RxNorm: 239607 90 Unit(s) SQ BID 01/08/2019 04/07/2019 Active Levemir FlexTouch U- 100 Insulin 100 unit/mL (3 mL) subcutaneous pen RxNorm: 621442 90 Unit(s) SQ BID 12/04/2018 12/03/2018 Inactive Levemir FlexTouch U- 100 Insulin 100 unit/mL (3 mL) subcutaneous pen RxNorm: 958990 90 Unit(s) SQ BID 12/04/2018 01/07/2019 Inactive Levemir FlexTouch U- 100 Insulin 100 unit/mL (3 mL) subcutaneous pen RxNorm: 718196 70 Unit(s) SQ BID 10/26/2018 12/04/2018 Inactive Levemir FlexTouch U- 100 Insulin 100 unit/mL (3 mL) subcutaneous pen RxNorm: 001338 GIVE 90 UNITS SUBCUTANEOUSLY TWICE DAILY 10/08/2018 10/26/2018 Inactive Levemir FlexTouch U- 100 Insulin 100 unit/mL (3 mL) subcutaneous pen RxNorm: 000193 90 Unit(s) SQ BID 07/30/2018 10/07/2018 Inactive Levemir FlexTouch U- 100 Insulin 100 unit/mL (3 mL) subcutaneous pen RxNorm: 648252 90 Unit(s) SQ BID 07/06/2018 07/29/2018 Inactive Pen Needle 31 gauge x 5/16" RxNorm: USE DIRECTED 03/21/2018 No Stop Date Active Levemir FlexTouch U- 100 Insulin 100 unit/mL (3 mL) subcutaneous pen RxNorm: 124073 80 Unit(s) SQ BID 02/15/2018 07/06/2018 Inactive Levemir FlexTouch U- 100 Insulin 100 unit/mL (3 mL) subcutaneous pen RxNorm: 293698 INJECT 105 UNITS SUBCUTANEOUSLY IN THE EVENING 01/24/2018 02/15/2018 Inactive Levemir FlexTouch U- 100 Insulin 100 unit/mL (3 mL) subcutaneous pen RxNorm: 029340 INJECT 105 UNITS SUBCUTANEOUSLY IN THE EVENING 12/26/2017 01/23/2018 Inactive Novolog Flexpen U-10 0 Insulin aspart 100 unit/mL (3 mL) subcutaneous RxNorm: 4078079 INJECT SUBCUTANEOUSLY NEEDED PER SLIDING SCALE 12/25/2017 02/21/2019 Inactive Levemir FlexTouch U- 100 Insulin 100 unit/mL (3 mL) subcutaneous pen RxNorm: 458978 70 Unit(s) SQ BID 11/03/2017 11/03/2017 Inactive Levemir FlexTouch U- 100 Insulin 100 unit/mL (3 mL) subcutaneous pen RxNorm: 455757 105 Unit(s) SQ QPM 11/02/2017 11/02/2017 Inactive Levemir FlexTouch U- 100 Insulin 100 unit/mL (3 mL) subcutaneous pen RxNorm: 050834 105 Unit(s) SQ QPM Needs updated labs 11/01/2017 11/01/2017 Inactive Levemir FlexTouch U- 100 Insulin 100 unit/mL (3 mL) subcutaneous pen RxNorm: 153538 Unit(s) 105 Unit(s) SQ QPM 09/18/2017 09/18/2017 Inactive Levemir FlexTouch U- 100 Insulin 100 unit/mL (3 mL) subcutaneous pen RxNorm: 901468 105 Unit(s) SQ QPM 08/07/2017 09/18/2017 Inactive cephalexin 500 mg ca psule RxNorm: 756861 1 Capsule(s) PO BID 07/27/2017 08/02/2017 Inactive Levemir FlexTouch U- 100 Insulin 100 unit/mL (3 mL) subcutaneous pen RxNorm: 203136 105 Unit(s) SQ QPM 06/07/2017 06/07/2017 Inactive Levemir FlexTouch 10 0 unit/mL (3 mL) subcutaneous insulin pen RxNorm: 685637 105 Unit(s) SQ QPM 05/11/2017 06/07/2017 Inactive Lipitor 40 mg tablet RxNorm: 394603 1.5 Tablet(s) PO QD 04/05/2017 10/01/2017 Inactive Diovan 320 mg tablet RxNorm: 807053 1 Tablet(s) PO QD 04/05/2017 03/30/2018 Inactive Lipitor 40 mg tablet RxNorm: 575605 1 Tablet(s) PO QD 04/05/2017 04/04/2017 Inactive nystatin 100,000 uni t/gram topical ointment RxNorm: 817552 1 Gram(s) TOP BID 04/05/2017 05/02/2017 In active Levemir FlexTouch 10 0 unit/mL (3 mL) subcutaneous insulin pen RxNorm: 852839 105 Unit(s) SQ QPM 04/05/2017 04/05/2017 Inactive Levemir FlexTouch 10 0 unit/mL (3 mL) subcutaneous insulin pen RxNorm: 994584 90 Unit(s) SQ QPM LAST REFILL UNTIL LABS AND APPOINTMENT!!!! 04/05/2017 05/11/2017 Inactive Novolog Flexpen 100 unit/mL subcutaneous RxNorm: 0337636 Unit(s) INJECT SUBCU TANEOUSLY NEEDED PER SLIDING SCALE---NEEDS UPDATED LABS 03/07/2017 12/03/2018 Inactive Levemir FlexTouch 10 0 unit/mL (3 mL) subcutaneous insulin pen RxNorm: 894144 90 Unit(s) SQ QPM LAST REFILL UNTIL LABS AND APPOINTMENT!!!! 02/17/2017 03/18/2017 Inactive Levemir FlexTouch 10 0 unit/mL (3 mL) subcutaneous insulin pen RxNorm: 026615 90 Unit(s) SQ QPM NEEDS FASTING LABS AND APPOINTMENT BEFORE FURTHER REFILLS 12/22/2016 02/17/2017 In active Novolog Flexpen U-10 0 Insulin aspart 100 unit/mL subcutaneous RxNorm: 9982995 Unit(s) INJECT SUBCUTANEOUSLY NEEDED PER SLIDING SCALE---NEEDS UPDATED LABS 11/28/2016 03/07/2017 Inactive Levemir FlexTouch 10 0 unit/mL (3 mL) subcutaneous insulin pen RxNorm: 349557 90 Unit(s) VAG QPM 11/08/2016 12/22/2016 Inactive Levemir FlexTouch 10 0 unit/mL (3 mL) subcutaneous insulin pen RxNorm: 863987 90 Unit(s) VAG QPM 11/08/2016 12/21/2016 Inactive Levemir FlexTouch 10 0 unit/mL (3 mL) subcutaneous insulin pen RxNorm: 751600 80 Unit(s) VAG QPM 09/05/2016 11/08/2016 Inactive Levemir FlexTouch 10 0 unit/mL (3 mL) subcutaneous insulin pen RxNorm: 820699 85 Unit(s) SQ QD 07/22/2016 09/05/2016 Inactive Levemir FlexTouch 10 0 unit/mL (3 mL) subcutaneous insulin pen RxNorm: 119102 85 Unit(s) SQ QD 07/04/2016 07/21/2016 Inactive Levemir FlexTouch 10 0 unit/mL (3 mL) subcutaneous insulin pen RxNorm: 167512 85 Unit(s) SQ QD 06/14/2016 06/19/2016 Inactive Levemir FlexTouch 10 0 unit/mL (3 mL) subcutaneous insulin pen RxNorm: 937302 85 Unit(s) SQ QD 05/03/2016 05/22/2016 Inactive Levemir FlexTouch 10 0 unit/mL (3 mL) subcutaneous insulin pen RxNorm: 450266 85 Unit(s) SQ QD 05/03/2016 05/02/2016 Inactive Levemir FlexTouch 10 0 unit/mL (3 mL) subcutaneous insulin pen RxNorm: 486974 85 Unit(s) SQ QD 03/14/2016 04/22/2016 Inactive cefuroxime axetil 25 0 mg tablet RxNorm: 746230 1 Tablet(s) PO BID 02/16/2016 02/25/2016 Inactive Levemir FlexTouch 10 0 unit/mL (3 mL) subcutaneous insulin pen RxNorm: 409549 85 Unit(s) SQ QD 02/03/2016 03/13/2016 Inactive Levemir FlexTouch 10 0 unit/mL (3 mL) subcutaneous insulin pen RxNorm: 802745 85 Unit(s) SQ QD 12/07/2015 02/02/2016 Inactive Pen Needle 31 gauge x 5/16" RxNorm: USE DIRECTED 11/19/2015 05/16/2016 Inactive Levemir FlexTouch 10 0 unit/mL (3 mL) subcutaneous insulin pen RxNorm: 640481 INJECT 75 UNITS SUBCUTANEOUSLY ONCE DAILY; NEED LABS AND APPT 10/06/2015 12/04/2015 Inactive Novolog Flexpen 100 unit/mL subcutaneous RxNorm: 6128069 INJECT SUBCUTANEOUSL Y NEEDED PER SLIDING SCALE 09/15/2015 11/28/2016 Inactive Levemir FlexTouch 10 0 unit/mL (3 mL) subcutaneous insulin pen RxNorm: 903543 75 Unit(s) SQ QD Needs lab and appointment 07/13/2015 10/05/2015 Inactive Lyrica 75 mg capsule RxNorm: 312299 1 Capsule(s) PO BID 06/24/2015 07/23/2015 Inactive Levemir FlexTouch 10 0 unit/mL (3 mL) subcutaneous insulin pen RxNorm: 751864 75 Unit(s) SQ QD Needs lab and appointment 06/23/2015 07/12/2015 Inactive Novolog Flexpen 100 unit/mL subcutaneous RxNorm: 7394513 Unit(s) SQ as needed Sliding scale 06/15/2015 09/14/2015 Inactive Flonase Allergy Reli ef 50 mcg/actuation nasal spray,suspension RxNorm: 2 [place] NASAL QHS 06/11/2015 12/02/2015 Inactive prednisone 20 mg tablet RxNorm: 394612 1 Tablet(s) PO TID for 3 days then 1 po BID for 3 days then one daily for 3 days 06/11/2015 12/02/2015 Inactive cefdinir 300 mg capsule RxNorm: 187875 2 Capsule(s) PO QD 06/11/2015 06/24/2015 Inactive Levemir FlexTouch 10 0 unit/mL (3 mL) subcutaneous insulin pen RxNorm: 032878 75 Unit(s) SQ QD Needs lab and appointment 05/29/2015 06/22/2015 Inactive Novolog 100 unit/mL subcutaneous solution RxNorm: 199226 Unit(s) SQ Inject as directed using sliding scale B 05/29/2015 12/03/2018 Inactive Levemir Flexpen 100 unit/mL (3 mL) solution subcutaneous insulin pen RxNorm: 661188 INJECT 75 UNITS SUBCUTANEOUSLY EVERY DAY 05/11/2015 05/29/2015 Inactive Levemir FlexTouch 10 0 unit/mL (3 mL) subcutaneous insulin pen RxNorm: 460599 75 Unit(s) SQ QHS 03/30/2015 12/03/2018 Inactive Levemir FlexTouch 10 0 unit/mL (3 mL) subcutaneous insulin pen RxNorm: 792317 75 Unit(s) SQ QHS 03/09/2015 03/29/2015 Inactive Contour Test Strips RxNorm: Miscellaneous 01/27/2015 No Stop Date Active Novolog 100 unit/mL subcutaneous solution RxNorm: 522365 Unit(s) SQ Inject as directed using sliding scale B 01/27/2015 05/29/2015 Inactive Levemir Flexpen 100 unit/mL (3 mL) solution subcutaneous insulin pen RxNorm: 516396 INJECT 75 UNITS SUBCUTANEOUSLY EVERY DAY 11/05/2014 03/09/2015 Inactive Levemir Flexpen 100 unit/mL (3 mL) solution subcutaneous insulin pen RxNorm: 853079 INJECT 75 UNITS SUBCUTANEOUSLY EVERY DAY 08/13/2014 10/31/2014 Inactive Novolog 100 unit/mL subcutaneous solution RxNorm: 353957 Unit(s) SQ Inject as directed using sliding scale B 07/15/2014 01/26/2015 Inactive Apidra SoloStar 100 unit/mL subcutaneous insulin pen RxNorm: 532819 Unit(s) SQ INJECT DIRECTED USING SLIDING SCALE B 07/11/2014 07/14/2014 Inactive Diovan 320 mg tablet RxNorm: 991131 1 Tablet(s) PO QD 06/10/2014 06/04/2015 Inactive Apidra SoloStar 100 unit/mL subcutaneous insulin pen RxNorm: 889612 Unit(s) SQ INJECT DIRECTED USING SLIDING SCALE B 04/18/2014 07/10/2014 Inactive Levemir Flexpen 100 unit/mL (3 mL) solution subcutaneous insulin pen RxNorm: 009365 Unit(s) SQ INJECT 75 UNITS SUBCUTANEOUSLY EVERY DAY 02/28/2014 02/27/2014 Inactive [SAVINGS FOR UNINSURED PATIENTS -- BIN:[id number], PCN: [id number], Group: [id number], ID# [id number], Process claim through [employer], for questions: . THIS IS NOT INSURANCE.] Apidra SoloStar 100 unit/mL subcutaneous insulin pen RxNorm: 549411 Unit(s) SQ INJECT DIRECTED USING SLIDING SCALE B 09/05/2013 04/17/2014 Inactive Pen Needle 31 gauge x 5/16" RxNorm: Miscellaneous USE DIRECT ED WITH LEVEMIR AND APIDRA 08/23/2013 11/18/2015 Inactive Prograf 1 mg capsule RxNorm: 002844 2 Capsule(s) PO BID Generic OK to fill 08/21/2013 No Stop Date Active Diovan 320 mg tablet RxNorm: 648718 1 Tablet(s) PO QD 05/30/2013 05/24/2014 Inactive fluoxetine 20 mg tablet RxNorm: 655353 1 Tablet(s) PO QAM 05/30/2013 07/31/2013 Inactive amlodipine 5 mg tablet RxNorm: 030152 1 Tablet(s) PO QD 04/29/2013 04/23/2014 Inactive fluoxetine 20 mg tablet RxNorm: 466288 1 Tablet(s) PO QAM 04/29/2013 05/29/2013 Inactive ketoconazole 2 % top ical cream RxNorm: 209867 Application TOP BID f or 2-4wks 04/29/2013 05/12/2013 In active Diovan 320 mg tablet RxNorm: 723887 1 Tablet(s) PO QD 04/29/2013 06/10/2014 Inactive Apidra SoloStar 100 unit/mL subcutaneous insulin pen RxNorm: 823042 Unit(s) SQ Sliding Scale B 02/19/2013 09/05/2013 Inactive Levemir Flexpen 100 unit/mL (3 mL) solution subcutaneous insulin pen RxNorm: 572491 Insulin Pen SQ INJECT 75 UNITS SUBCUTANEOUSLY EVERY DA Y 01/21/2013 02/28/2014 Inactive Septra DS 800 mg-160 mg tablet RxNorm: 308906 1 Tablet(s) PO BID an tibiotic 01/01/2013 01/07/2013 In active ketoconazole 2 % top ical cream RxNorm: 310057 1 Application TOP BID 01/01/2013 01/14/2013 Inactive Levemir Flexpen 100 unit/mL (3 mL) Sub-Q Insulin Pen RxNorm: 294313 Unit(s) SQ INJECT 75 UNITS SUB-Q ONCE A DAY 12/07/2012 No Stop Date Active Levemir Flexpen 100 unit/mL (3 mL) Sub-Q Insulin Pen RxNorm: 171667 Unit(s) SQ INJECT 75 UNITS SUB-Q ONCE A DAY 10/22/2012 12/07/2012 Inactive Levemir Flexpen 100 unit/mL (3 mL) Sub-Q Insulin Pen RxNorm: 397452 75 Unit(s) SQ QHS 08/20/2012 10/22/2012 Inactive Diovan 320 mg tablet RxNorm: 982932 1 Tablet(s) PO QD 07/30/2012 04/28/2013 Inactive Levemir Flexpen 100 unit/mL (3 mL) Sub-Q Insulin Pen RxNorm: 170096 Insulin Pen SQ INJECT 75 UNITS SUB-Q ONCE A DAY 07/30/2012 10/21/2012 Inactive Levemir Flexpen 100 unit/mL (3 mL) Sub-Q Insulin Pen RxNorm: 367393 75 Unit(s) SQ QHS 07/30/2012 08/19/2012 Inactive Levemir Flexpen 100 unit/mL (3 mL) Sub-Q Insulin Pen RxNorm: 888273 75 Unit(s) SQ QHS 07/30/2012 07/29/2012 Inactive Diovan 320 mg tablet RxNorm: 342347 1 Tablet(s) PO QD 06/21/2012 06/20/2012 Inactive Diovan 320 mg tablet RxNorm: 952549 1 Tablet(s) PO QD 06/21/2012 06/20/2012 Inactive Diovan 320 mg tablet RxNorm: 565423 1 Tablet(s) PO QD 06/21/2012 07/29/2012 Inactive CellCept 250 mg capsule RxNorm: 846840 4 Capsule(s) PO BID 06/14/2012 06/20/2012 Inactive Prograf 1 mg capsule RxNorm: 634049 2 Capsule(s) PO BID Generic OK to fill 06/14/2012 06/20/2012 In active Apidra SoloStar 100 unit/mL Sub-Q Insulin Pen RxNorm: 355514 Unit(s) SQ Sliding Sc supriya B 06/13/2012 12/03/2018 Inactive Levemir Flexpen 100 unit/mL (3 mL) Sub-Q Insulin Pen RxNorm: 633534 75 Unit(s) SQ QD 06/13/2012 No Stop Date Active Apidra SoloStar 100 unit/mL Sub-Q Insulin Pen RxNorm: 264923 Unit(s) SQ Sliding Sc supriya B 06/13/2012 No Stop Date Active One Touch Delkaren Adeel cets RxNorm: Miscellaneous 0 06/13/2012 04/04/2017 Inactive Lipitor 40 mg tablet RxNorm: 310484 1 Tablet(s) PO QD 05/30/2012 08/27/2012 Inactive Diovan 320 mg tablet RxNorm: 099213 1 Tablet(s) PO QD 05/30/2012 06/20/2012 Inactive Tricor 145 mg tablet RxNorm: 268867 1 Tablet(s) PO QD 05/30/2012 08/27/2012 Inactive Lipitor 20 mg Tab RxNorm: 688787 1 Tablet(s) PO QD 09/12/2011 05/29/2012 Inactive Synthroid 50 mcg Tab RxNorm: 830499 1 Tablet(s) PO QD 09/12/2011 12/02/2015 Inactive Diovan 320 mg tablet RxNorm: 066004 1 Tablet(s) PO QD 09/12/2011 03/09/2012 Inactive amlodipine 5 mg tablet RxNorm: 422157 1 Tablet(s) PO QD 09/12/2011 03/09/2012 Inactive Diovan 320 mg Tab RxNorm: 475862 1 Tablet(s) PO QD 06/14/2011 09/11/2011 Inactive Diovan 160 mg Tab RxNorm: 723805 1 Tablet(s) PO QD 03/03/2011 06/13/2011 Inactive cefdinir 300 mg Cap RxNorm: 756027 2 Capsule(s) PO QD 01/27/2011 02/05/2011 Inactive Synthroid 50 mcg Tab RxNorm: 633589 1 Tablet(s) PO QD 12/02/2010 01/30/2011 Inactive Multivitamin & Academic Registrar al Formula Tab RxNorm: 1 Tablet(s) PO QD No Start Date Active Miralax 17 gram/dose oral powder RxNorm: 932358 PO BID in 6-8 ounces of water No Start Date Active Tylenol Extra Streng th 500 mg tablet RxNorm: 761126 Tablet(s) PO as neede d No Start Date Active Tricor Oral RxNorm: Oral No Start Date 05/29 Inactive MagOx 400 mg tablet RxNorm: 775011 1 Tablet(s) PO QD No Start Date 06/19/2016 Inactive sodium bicarbonate Oral RxNorm: Oral No Start Date 06/19/2016 Inactive Fish Oil 1,000 mg ca psule RxNorm: 1 Capsule(s) PO QD No Start Date 04/04/2017 Inactive Novofine Misc RxNorm: Miscellaneous No Start Date 06/12/2012 Inactive Percocet 5 mg-325 mg tablet RxNorm: 4533579 Tablet(s) PO as need ed Dr Parson No Start Date 04/04/2017 Inactive Contour Test Strips RxNorm: miscellaneous No Start Date 01/26/2015 Inactive Prograf 1 mg capsule RxNorm: 944283 2 Capsule(s) PO BID No Start Date 06/13/2012 Inactive Zantac 150 mg Tab RxNorm: 509168 Tablet(s) PO PRN No Start Date 12/02/2015 Inactive Levemir FlexTouch 10 0 unit/mL (3 mL) subcutaneous insulin pen RxNorm: 955399 75 Unit(s) SQ QHS No Start Date 03/08/2015 Inactive CellCept 250 mg capsule RxNorm: 251230 4 Capsule(s) PO BID No Start Date 06/13/2012 Inactive Novolog 100 unit/mL subcutaneous solution RxNorm: 717328 Unit(s) SQ Inject as directed using sliding scale B No Start Date 07/14/2014 Inactive Novolog Flexpen 100 unit/mL subcutaneous RxNorm: 7000667 Unit(s) SQ as needed Sliding scale No Start Date 06/14/2015 Inactive Apidra SoloStar 100 unit/mL Sub-Q Insulin Pen RxNorm: 977034 Unit(s) SQ Sliding Sc supriya B No Start Date 06/12/2012 Inactive Levemir FlexTouch U- 100 Insulin 100 unit/mL (3 mL) subcutaneous pen RxNorm: 569170 70 Unit(s) SQ BID No Start Date 02/06/2018 Inactive Pen Needle 31 X 5/16" RxNorm: Miscellaneous No Start Date 08/23/2013 Inactive Synthroid 50 mcg Tab RxNorm: 961956 1 Tablet(s) PO QD No Start Date 09/11/2011 Inactive Levemir Flexpen 100 unit/mL (3 mL) Sub-Q Insulin Pen RxNorm: 642177 70 Unit(s) SQ QHS No Start Date 07/29/2012 Inactive Levemir FlexTouch U- 100 Insulin 100 unit/mL (3 mL) subcutaneous pen RxNorm: 033411 80 Unit(s) SQ BID No Start Date 02/14/2018 Inactive Levemir FlexTouch 10 0 unit/mL (3 mL) subcutaneous insulin pen RxNorm: 965425 80 Unit(s) SQ QPM No Start Date 09/04/2016 Inactive Lipitor 40 mg tablet RxNorm: 052560 1 Tablet(s) PO QD No Start Date 04/04/2017 Inactive Ultram 50 mg tablet RxNorm: 997643 2 Tablet(s) PO TID as needed for pain No Start Date 06/10/2015 Inactive Prograf 1 mg Cap RxNorm: 513033 2 Capsule(s) PO BID No Start Date 05/20/2012 Inactive insulin needles (dis posable) 32 x 5/16" RxNorm: Miscellaneous for use with flex pen No Start Date 04/04/2017 Inactive Levemir FlexTouch U- 100 Insulin 100 unit/mL (3 mL) subcutaneous pen RxNorm: 133229 90 Unit(s) SQ BID No Start Date 07/05/2018 Inactive Levemir Flexpen 100 unit/mL (3 mL) Sub-Q Insulin Pen RxNorm: 391614 65 Unit(s) SQ QD No Start Date 06/12/2012 Inactive Zithromax Z-Mateus 250 mg Tab RxNorm: 234417 Tablet(s) PO No Start Date 06/13/2011 Inactive as directed Lipitor 20 mg Tab RxNorm: 967219 1 Tablet(s) PO QD No Start Date [...] ICD- 10: Z48.298 ICD-9: V58.44 08/24/2018 Other m[facility] (current) drug therapy ICD-10: Z79.899 ICD-9: V58.69 [...] Code Item Item Code Result Date MAGNESIUM 96658 MAGNESIUM 1.4 mEq/L 02/19/2019 GFR CALC 4507610 GFR Non Afr Amr 37 mL/min 02/19/2019 GFR CALC 8976989 GFR Afr Amr 45 mL/min 02/19/2019 LIPID GROUP 33905 Choles terol 250 mg/dL 02/19/2019 LIPID GROUP 81603 Trigly ceride 465 mg/dL 02/19/2019 LIPID GROUP 05414 HDL CH OLESTEROL 30 mg/dL 02/19/2019 LIPID GROUP 26303 Chol/H DL Ratio 8.33 ratio 02/19/2019 LIPID GROUP 46348 NON-HD L Chol 220 mg/dL 02/19/2019 LIPID GROUP 09669 LDL Ch olesterol N/A Trig >400 019 LIPID GROUP 22351 Fasting Unknown 02/19/2019 COMPREHENSIVE METABOLIC 71342 AST 20 U/L 02/19/2019 COMPREHENSIVE METABOLIC 74146 ALT 30 U/L 02/19/2019 COMPREHENSIVE METABOLIC 15678 BUN 27 mg/dL 02/19/2019 COMPREHENSIVE METABOLIC 58451 ALBUMIN 3.7 g/dL 02/19/2019 COMPREHENSIVE METABOLIC 82088 CHLORIDE 105 mmol/L 02/19/2019 COMPREHENSIVE METABOLIC 74331 Bili Total 0.5 mg/dL 02/19/2019 COMPREHENSIVE METABOLIC 30676 ALK PHOS 79 U/L 02/19/2019 COMPREHENSIVE METABOLIC 78101 SODIUM 137 mmol/L 02/19/2019 COMPREHENSIVE METABOLIC 68918 CREATININE 2.10 mg/dL 02/19/2019 COMPREHENSIVE METABOLIC 52518 CALCIUM 9.5 mg/dL 02/19/2019 COMPREHENSIVE METABOLIC 31744 POTASSIUM 4.2 mmol/L 02/19/2019 COMPREHENSIVE METABOLIC 05025 Total Protein 6.5 g/dL 02/19/2019 COMPREHENSIVE METABOLIC 48823 Glucose 202 mg/dL 02/19/2019 COMPREHENSIVE METABOLIC 63088 Bicarbonate 22 mmol/L 02/19/2019 COMPREHENSIVE METABOLIC 56491 AGAP 10 mmol/L 02/19/2019 LIPID GROUP 63402 Choles terol 320 mg/dL 08/27/2018 LIPID GROUP 47090 Trigly ceride 444 mg/dL 08/27/2018 LIPID GROUP 05728 HDL CH OLESTEROL 39 mg/dL 08/27/2018 LIPID GROUP 35873 Chol/H DL Ratio 8.21 ratio 08/27/2018 LIPID GROUP 25573 NON-HD L Chol 281 mg/dL 08/27/2018 LIPID GROUP 00008 LDL Ch olesterol N/A Trig >400 019 LIPID GROUP 22531 Fasting Unknown 08/27/2018 PHOSPHORUS 4641673 PHOSP HORUS 2.1 mg/dL 08/24/2018 PROTEIN/CREAT URINE WITH RATIO 30884|80649 U Protein 515 mg/dL 08/24/2018 PROTEIN/CREAT URINE WITH RATIO 95017|17762 U Creatinine 116 mg/dL 08/24/2018 PROTEIN/CREAT URINE WITH RATIO 10451|37437 Prot:Creat Rat 4440 mg/g 08/24/2018 MAGNESIUM 65507 MAGNESIUM 1.4 mEq/L 08/24/2018 GFR CALC 4663110 GFR Non Afr Amr 44 mL/min 08/24/2018 GFR CALC 6463159 GFR Afr Amr 53 mL/min 08/24/2018 [place] [address] Glucose TNP:Unknown Cancel Reason 08/24/2018 [place] [address] CREATININE TNP:Unknown Cancel Reason 08/24/2018 [place] [address] BUN TNP:Unknown Cancel Reason 08/24/2018 [place] [address] SODIUM TNP:Unknown Cancel Reason 08/24/2018 [place] [address] POTASSIUM TNP:Unknown Cancel Reason 08/24/2018 [place] [address] CHLORIDE TNP:Unknown Cancel Reason 08/24/2018 [place] [address] Bicarbonate TNP:Unknown Cancel Reason 08/24/2018 [place] [address] AGAP TNP:Unknown Cancel Reason 08/24/2018 [place] [address] CALCIUM TNP:Unknown Cancel Reason 08/24/2018 COMPREHENSIVE METABOLIC 86803 AST 21 U/L 08/24/2018 COMPREHENSIVE METABOLIC 98741 ALT 35 U/L 08/24/2018 COMPREHENSIVE METABOLIC 11210 BUN 25 mg/dL 08/24/2018 COMPREHENSIVE METABOLIC 30498 ALBUMIN 4.5 g/dL 08/24/2018 COMPREHENSIVE METABOLIC 63436 CHLORIDE 106 mmol/L 08/24/2018 COMPREHENSIVE METABOLIC 52266 Bili Total 0.4 mg/dL 08/24/2018 COMPREHENSIVE METABOLIC 71234 ALK PHOS 64 U/L 08/24/2018 COMPREHENSIVE METABOLIC 51118 SODIUM 141 mmol/L 08/24/2018 COMPREHENSIVE METABOLIC 16098 CREATININE 1.81 mg/dL 08/24/2018 COMPREHENSIVE METABOLIC 39813 CALCIUM 10.3 mg/dL 08/24/2018 COMPREHENSIVE METABOLIC 82151 POTASSIUM 3.4 mmol/L 08/24/2018 COMPREHENSIVE METABOLIC 61733 Total Protein 7.2 g/dL 08/24/2018 COMPREHENSIVE METABOLIC 73860 Glucose 101 mg/dL 08/24/2018 COMPREHENSIVE METABOLIC 85511 Bicarbonate 23 mmol/L 08/24/2018 COMPREHENSIVE METABOLIC 45473 AGAP 12 mmol/L 08/24/2018 UA W/MICR 73934 UA Urine Appear Normal 08/24/2018 UA W/MICR 89375 UA Prote in 3+ 08/24/2018 UA W/MICR 77452 UA Hemog lobin Trace 08/24/2018 UA W/MICR 90816 UA Gluco se 3+ 08/24/2018 UA W/MICR 38408 UA [place] es Negative 08/24/2018 UA W/MICR 58489 UA pH 6.0 08/24/2018 UA W/MICR 12006 U Spec G ravity 1.025 08/24/2018 UA W/MICR 04768 UA Bilir ubin Negative 08/24/2018 UA W/MICR 34925 UA Leuk Esteras Negative 08/24/2018 UA W/MICR 83444 UA Nitri te NEG 08/24/2018 UA W/MICR 44831 UA WBC/h pf 1 08/24/2018 UA W/MICR 06401 UA RBC a uto 12.9 /uL 08/24/2018 UA W/MICR 14957 UA RBC h pf 2 08/24/2018 UA W/MICR 60315 UA WBC a uto 5.9 /uL 08/24/2018 UA W/MICR 67353 UA SQ EP I auto 5.2 /uL 08/24/2018 UA W/MICR 30795 UA H Jamil t auto 0.10 /uL 08/24/2018 PROGRAF 6964575 Prograf 7.3 ng/mL 08/24/2018 MICROALBUMIN URINE RANDOM 06638 U Microalbumin 3485.2 mg/L 08/24/2018 MICROALBUMIN URINE RANDOM 67038 U Creatinine 116 mg/dL 08/24/2018 MICROALBUMIN URINE RANDOM 35759 ALB/CR Ratio 3004.5 mg/gCR 08/25/19 19 GLYCOSYLATED HEMOGLOBIN TEST 22988 Hgb A1c 37955-8 13.3 % 9 MEAN GLUC 5734168 Calc M sherron Gluc 335 mg/dL 06/29/2018 COMPREHENSIVE METABOLIC 89635 AST 17 U/L 02/06/2018 COMPREHENSIVE METABOLIC 76607 ALT 24 U/L 02/06/2018 COMPREHENSIVE METABOLIC 44562 BUN 24 mg/dL 02/06/2018 COMPREHENSIVE METABOLIC 65591 ALBUMIN 3.9 g/dL 02/06/2018 COMPREHENSIVE METABOLIC 08348 CHLORIDE 108 mmol/L 02/06/2018 COMPREHENSIVE METABOLIC 77372 Bili Total 0.6 mg/dL 02/06/2018 COMPREHENSIVE METABOLIC 72345 ALK PHOS 67 U/L 02/06/2018 COMPREHENSIVE METABOLIC 94456 SODIUM 140 mmol/L 02/06/2018 COMPREHENSIVE METABOLIC 08427 CREATININE 1.75 mg/dL 02/06/2018 COMPREHENSIVE METABOLIC 16239 CALCIUM 9.6 mg/dL 02/06/2018 COMPREHENSIVE METABOLIC 82623 POTASSIUM 3.8 mmol/L 02/06/2018 COMPREHENSIVE METABOLIC 51717 Total Protein 7.1 g/dL 02/06/2018 COMPREHENSIVE METABOLIC 60516 Glucose 62 mg/dL 02/06/2018 COMPREHENSIVE METABOLIC 72341 Bicarbonate 23 mmol/L 02/06/2018 COMPREHENSIVE METABOLIC 44328 AGAP 9 mmol/L 02/06/2018 GLYCOSYLATED HEMOGLOBIN TEST 33663 Hgb A1c 95213-7 13.0 % 8 GFR CALC 1172665 GFR Non Afr Amr 46 mL/min 02/06/2018 GFR CALC 8452925 GFR Afr Amr 55 mL/min 02/06/2018 MICROALBUMIN URINE RANDOM 97842 U Microalbumin 669.0 mg/L 02/06/2018 MICROALBUMIN URINE RANDOM 86553 U Creatinine 92 mg/dL 02/06/2018 MICROALBUMIN URINE RANDOM 05383 ALB/CR Ratio 727.2 mg/gCR 8 MEAN GLUC Calc M sherron Gluc 326 mg/dL 02/06/2018 GLYCOSYLATED HEMOGLOBIN TEST 24728 Hgb A1c 45102-4 14.3 % 6 THYROID STIMULATING HORMONE 89586 TSH 1.909 uIU/mL 6 MAGNESIUM 28760 MAGNESIUM 1.5 mEq/L 12/03/2015 GFR CALC 7438814 GFR Afr Amr 48 mL/min 12/03/2015 GFR CALC 8804454 GFR Non Afr Amr 39 mL/min 12/03/2015 MEAN GLUC Mean G lucose 364 mg/dL 12/03/2015 COMPREHENSIVE METABOLIC 77076 AST 34 U/L 12/03/2015 COMPREHENSIVE METABOLIC 95141 ALT 78 U/L 12/03/2015 COMPREHENSIVE METABOLIC 47795 BUN 29 mg/dL 12/03/2015 COMPREHENSIVE METABOLIC 60147 ALBUMIN 4.3 g/dL 12/03/2015 COMPREHENSIVE METABOLIC 59622 CHLORIDE 93 mmol/L 12/03/2015 COMPREHENSIVE METABOLIC 74697 Bili Total 0.7 mg/dL 12/03/2015 COMPREHENSIVE METABOLIC 84411 ALK PHOS 83 U/L 12/03/2015 COMPREHENSIVE METABOLIC 37854 SODIUM 125 mmol/L 12/03/2015 COMPREHENSIVE METABOLIC 02676 CREATININE 2.01 mg/dL 12/03/2015 COMPREHENSIVE METABOLIC 33052 CALCIUM 9.8 mg/dL 12/03/2015 COMPREHENSIVE METABOLIC 12098 POTASSIUM 4.3 mmol/L 12/03/2015 COMPREHENSIVE METABOLIC 44847 Total Protein 7.3 g/dL 12/03/2015 COMPREHENSIVE METABOLIC 46876 Glucose 542 mg/dL 12/03/2015 COMPREHENSIVE METABOLIC 51625 Bicarbonate 23 mmol/L 12/03/2015 COMPREHENSIVE METABOLIC 69941 AGAP 9 mmol/L 12/03/2015 COMPREHENSIVE METABOLIC 26958 AST 31 U/L 07/30/2013 COMPREHENSIVE METABOLIC 41521 ALT 52 IU/L 07/30/2013 COMPREHENSIVE METABOLIC 10016 BUN 26 MG/DL 07/30/2013 COMPREHENSIVE METABOLIC 94443 ALBUMIN 4.9 GM/DL 07/30/2013 COMPREHENSIVE METABOLIC 53306 CHLORIDE 108 MMOL/L 07/30/2013 COMPREHENSIVE METABOLIC 84962 BILI TOT 0.4 MG/DL 07/30/2013 COMPREHENSIVE METABOLIC 08656 ALK PHOS 68 U/L 07/30/2013 COMPREHENSIVE METABOLIC 46174 SODIUM 138 MMOL/L 07/30/2013 COMPREHENSIVE METABOLIC 78069 CREATININE 2.02 MG/DL 07/30/2013 COMPREHENSIVE METABOLIC 83666 CALCIUM 10.3 MG/DL 07/30/2013 COMPREHENSIVE METABOLIC 08830 POTASSIUM 5.0 MMOL/L 07/30/2013 COMPREHENSIVE METABOLIC 58830 PROT TOT 7.3 GM/DL 07/30/2013 COMPREHENSIVE METABOLIC 95383 Glucose 89 MG/DL 07/30/2013 COMPREHENSIVE METABOLIC 22018 BICARB 24 MMOL/L 07/30/2013 COMPREHENSIVE METABOLIC 09266 ANION GAP 6 MEQ/L 07/30/2013 GFR CALC 9691064 GFR AA 48.0L ML/MIN 07/30/2013 GFR CALC 3615565 GFR NON -AA 40.0L ML/MIN 4 COMPLETE BLOOD COUNT 2619840 WBC 7.9 10e9/L 07/30/2013 COMPLETE BLOOD COUNT 8191820 RBC 4.94 10e12/L 4 COMPLETE BLOOD COUNT 5710553 HGB 14.0 g/dL 07/30/2013 COMPLETE BLOOD COUNT 8575287 HCT DET 41.5 % 07/30/2013 COMPLETE BLOOD COUNT 2523380 MCV 84.0 fL 07/30/2013 COMPLETE BLOOD COUNT 1770359 MCH 28.3 pg 07/30/2013 COMPLETE BLOOD COUNT 6017301 MCHC 33.7 g/dL 07/30/2013 COMPLETE BLOOD COUNT 2539281 PLT 176 10e9/L 07/30/2013 COMPLETE BLOOD COUNT 7607362 MPV 11.8 fL 07/30/2013 COMPLETE BLOOD COUNT 5926772 CLAYTON % 75.4 % 07/30/2013 COMPLETE BLOOD COUNT 8141271 LY % 13.7 % 07/30/2013 COMPLETE BLOOD COUNT 2913546 MON % 8.9 % 07/30/2013 COMPLETE BLOOD COUNT 6839677 EOS % 1.7 % 07/30/2013 COMPLETE BLOOD COUNT 4221482 BASO % 0.3 % 07/30/2013 COMPLETE BLOOD COUNT 8322537 RDW 13.4 % 07/30/2013 COMPLETE BLOOD COUNT 1820357 ABS CLAYTON 5.96 10e9/L 07/30/2013 COMPLETE BLOOD COUNT 9891474 ABS LYMPH 1.08 10e9/L 07/30/2013 COMPLETE BLOOD COUNT 1416154 ABS MONO 0.70 10e9/L 07/30/2013 COMPLETE BLOOD COUNT 5329789 ABS EOS 0.13 10e9/L 07/30/2013 COMPLETE BLOOD COUNT 9380375 ABS BASO 0.02 10e9/L 07/30/2013 COMPLETE BLOOD COUNT 4454444 RDW-SD 40.2 fL 07/30/2013 C-REACTIVE PROTEIN (CRP) QUANT 45109 CRP 0.2 MG/DL 07/30/2013 CANCEL 6640862 CANCEL FOOTNOTE 05/23/2012 PEND CHEM PEND C HEM FOOTNOTE 05/22/2012 COMPREHENSIVE METABOLIC 43073 AST 61 U/L 05/21/2012 COMPREHENSIVE METABOLIC 42393 ALT 106 U/L 05/21/2012 COMPREHENSIVE METABOLIC 04433 BUN 33 MG/DL 05/21/2012 COMPREHENSIVE METABOLIC 42650 ALBUMIN 5.0 GM/DL 05/21/2012 COMPREHENSIVE METABOLIC 08298 CHLORIDE 89 MMOL/L 05/21/2012 COMPREHENSIVE METABOLIC 58770 BILI TOT 0.6 MG/DL 05/21/2012 COMPREHENSIVE METABOLIC 42222 ALK PHOS 129 U/L 05/21/2012 COMPREHENSIVE METABOLIC 17327 SODIUM 120 MMOL/L 05/21/2012 COMPREHENSIVE METABOLIC 79158 CREATININE 2.23 MG/DL 05/21/2012 COMPREHENSIVE METABOLIC 56002 CALCIUM 9.8 MG/DL 05/21/2012 COMPREHENSIVE METABOLIC 61102 POTASSIUM 5.3 MMOL/L 05/21/2012 COMPREHENSIVE METABOLIC 08600 PROT TOT 7.8 GM/DL 05/21/2012 COMPREHENSIVE METABOLIC 59491 Glucose 789 MG/DL 05/21/2012 COMPREHENSIVE METABOLIC 07678 BICARB 20 MMOL/L 05/21/2012 COMPREHENSIVE METABOLIC 39764 ANION GAP 11 MMOL/L 05/21/2012 GFR CALC 9491636 GFR AA 43.0L ML/MIN 05/21/2012 GFR CALC 4524433 GFR NON -AA 36.0L ML/MIN 2 THYROID STIMULATING HORMONE 45001 TSH 1.499 uIU/ML 1 FREE T4 57404 FREE T4 1.15 NG/DL 01/27/2011 Review of [...] Procedures Procedure Codes Date ROUTINE VENIPUNCTURE CPT-4: 10873 02/19/2019 METABOLIC PANEL TOTA L CA CPT-4: 04291 02/19/2019 MICROALBUMIN, QUANTI TATIVE CPT-4: 88786 02/19/2019 LIPID PANEL CPT-4: 67694 02/19/2019 COMPREHEN METABOLIC PANEL CPT-4: 69062 02/19/2019 ASSAY OF MAGNESIUM CPT- 4: 70646 02/19/2019 METABOLIC PANEL TOTA L CA CPT-4: 98068 08/24/2018 COMPREHEN METABOLIC PANEL CPT-4: 71861 08/24/2018 ASSAY OF MAGNESIUM CPT- 4: 92528 08/24/2018 MICROALBUMIN QUANTIT ATIVE CPT-4: 81607 08/24/2018 PROTEIN/CREAT URINE WITH RATIO CPT-4: 24522|08254 08/24/2018 PHOSPHORUS CPT-4: 6969102 08/24/2018 LIPID PANEL CPT-4: 59607 08/24/2018 ROUTINE VENIPUNCTURE CPT-4: 80993 06/29/2018 A1C HPLC CPT-4: 79197 06/29/2018 URINALYSIS NONAUTO W /O SCOPE CPT-4: 66498 02/06/2018 URINE CULTURE/ COLON Y COUNT CPT-4: 39895 02/06/2018 MICROALBUMIN QUANTIT ATIVE CPT-4: 55488 02/06/2018 ROUTINE VENIPUNCTURE CPT-4: 76958 02/06/2018 COMPREHEN METABOLIC PANEL CPT-4: 90717 02/06/2018 A1C HPLC CPT-4: 60148 02/06/2018 ROUTINE VENIPUNCTURE CPT-4: 79513 11/02/2017 COMPREHEN METABOLIC PANEL CPT-4: 81983 11/02/2017 A1C HPLC CPT-4: 64969 11/02/2017 TDAP VACCINE 7 YRS/> IM CPT-4: 89133 07/27/2017 IMMUNIZATION ADMIN CPT- 4: 97587 07/27/2017 URINALYSIS NONAUTO W /O SCOPE CPT-4: 96831 02/16/2016 URINE CULTURE/ COLON Y COUNT CPT-4: 21153 02/16/2016 PRESCRIP TRANSMIT A ERX SY CPT-4: G8553 02/16/2016 ROUTINE VENIPUNCTURE CPT-4: 71047 12/03/2015 ASSAY THYROID STIM H ORMONE CPT-4: 17433 12/03/2015 COMPREHEN METABOLIC PANEL CPT-4: 96728 12/03/2015 A1C HPLC CPT-4: 55465 12/03/2015 ASSAY OF MAGNESIUM CPT- 4: 78528 12/03/2015 URINALYSIS NONAUTO W /O SCOPE CPT-4: 93036 12/03/2015 URINE CULTURE/ COLON Y COUNT CPT-4: 41116 12/03/2015 URINALYSIS NONAUTO W /O SCOPE CPT-4: 23607 07/30/2013 URINE CULTURE/ COLON Y COUNT CPT-4: 97623 07/30/2013 ROUTINE VENIPUNCTURE CPT-4: 72841 07/30/2013 COMPLETE CBC W/AUTO DIFF WBC CPT-4: 86212 07/30/2013 COMPREHEN METABOLIC PANEL CPT-4: 04122 07/30/2013 C-REACTIVE PROTEIN CPT- 4: 18310 07/30/2013 ROUTINE VENIPUNCTURE CPT-4: 68245 08/20/2012 ASSAY OF FREE THYROXINE CPT-4: 05999 08/20/2012 ASSAY THYROID STIM H ORMONE CPT-4: 84276 08/20/2012 COMPREHEN METABOLIC PANEL CPT-4: 87027 08/20/2012 COMPLETE CBC W/AUTO DIFF WBC CPT-4: 55747 08/20/2012 LIPID PANEL CPT-4: 27156 08/20/2012 A1C GLYCOSYLATED HEM OGLOBIN TEST CPT-4: 33197 08/20/2012 ASSAY, GLUCOSE, BLOO D QUANT CPT-4: 55151 06/21/2012 ASSAY, GLUCOSE, BLOO D QUANT CPT-4: 61906 05/21/2012 ROUTINE VENIPUNCTURE CPT-4: 09850 05/21/2012 COMPREHEN METABOLIC PANEL CPT-4: 08063 05/21/2012 A1C GLYCOSYLATED HEM OGLOBIN TEST CPT-4: 31508 05/21/2012 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 CPT-4: G8456 06/14/2011 PT VIS DOC USE EHR C ER ATCB CPT-4: G8447 06/14/2011 PRESCRIP TRANSMIT A ERX SY CPT-4: G8553 06/14/2011 PT VIS DOC USE EHR C ER ATCB CPT-4: G8447 03/03/2011 PRESCRIP TRANSMIT A ERX SY CPT-4: G8553 03/03/2011 ROUTINE VENIPUNCTURE CPT-4: 93916 01/27/2011 ASSAY OF FREE THYROXINE CPT-4: 02106 01/27/2011 ASSAY THYROID STIM H ORMONE CPT-4: 80286 01/27/2011 PT VIS DOC USE EHR C [...] 1: 158/90 Code: 8480-6 BMI: 34.3 Code: 89362-9 Heart Rate 1: 78 bpm Height: 6'1" Respiratory Rate: 20 bpm SpO2: 98% Temperature: 36.6 (C ) / 97.8 (F) Weight: 260 lbs 11/02/2017 Blood Pressure 1: 134/92 Code: 8480-6 BMI: 32.3 Code: 82807-9 Heart Rate 1: 72 bpm Height: 6'1" SpO2: 98% Temperature: 36.4 (C ) / 97.5 (F) Weight: 245 lbs 07/27/2017 Blood Pressure 1: 136/64 Code: 8480-6 BMI: 30.9 Code: 91913-2 Heart Rate 1: 78 bpm Height: 6'1" Respiratory Rate: 22 bpm SpO2: 98% Temperature: 36.4 (C ) / 97.6 (F) Weight: 234 lbs 04/05/2017 Blood Pressure 1: 126/90 Code: 8480-6 BMI: 33.5 Code: 22035-3 Heart Rate 1: 76 bpm Height: 6'1" Respiratory Rate: 20 bpm SpO2: 97% Temperature: 37.0 (C ) / 98.6 (F) Weight: 254 lbs 06/20/2016 Blood Pressure 1: 122/74 Code: 8480-6 BMI: 35.2 Code: 43113-2 Heart Rate 1: 80 bpm Height: 6'1" Respiratory Rate: 20 bpm SpO2: 97% Temperature: 36.9 (C ) / 98.5 (F) Weight: 267 lbs 02/16/2016 Blood Pressure 1: 136/82 Code: 8480-6 BMI: 36.4 Code: 68545-0 Heart Rate 1: 66 bpm Height: 6'1" Respiratory Rate: 18 bpm SpO2: 96% Temperature: 36.4 (C ) / 97.6 (F) Weight: 276 lbs 12/03/2015 Blood Pressure 1: 122/86 Code: 8480-6 BMI: 39.2 Code: 68623-2 Heart Rate 1: 76 bpm Height: 6' Respiratory Rate: 20 bpm Temperature: 37.1 (C ) / 98.7 (F) Weight: 289 lbs 06/24/2015 Blood Pressure 1: 136/84 Code: 8480-6 BMI: 40.7 Code: 98326-4 Heart Rate 1: 84 bpm Height: 6' Respiratory Rate: 20 bpm Temperature: 36.9 (C ) / 98.4 (F) Weight: 300 lbs 06/11/2015 Blood Pressure 1: 160/82 Code: 8480-6 BMI: 40.4 Code: 64211-4 Heart Rate 1: 82 bpm Height: 6' Respiratory Rate: 22 bpm Temperature: 36.5 (C ) / 97.7 (F) Weight: 298 lbs 07/17/2014 Blood Pressure 1: 132/84 Code: 8480-6 BMI: 41.0 Code: 67680-2 Heart Rate 1: 76 bpm Height: 6'1" Respiratory Rate: 20 bpm Temperature: 36.9 (C ) / 98.4 (F) Weight: 311 lbs 10/31/2013 Blood Pressure 1: 132/80 Code: 8480-6 BMI: 41.2 Code: 37728-0 Heart Rate 1: 84 bpm Height: 6'1" Respiratory Rate: 22 bpm Temperature: 36.1 (C ) / 97.0 (F) Weight: 312 lbs 08/01/2013 Blood Pressure 1: 142/86 Code: 8480-6 BMI: 42.4 Code: 48213-1 Heart Rate 1: 84 bpm Height: 6' [...] 1: 156/108 Code: 8480-6 BMI: 41.9 Code: 22891-1 Heart Rate 1: 92 bpm Height: 6' Respiratory Rate: 20 bpm Temperature: 36.9 (C ) / 98.4 (F) Weight: 309 lbs 02/27/2013 Blood Pressure 1: 162/114 Code: 8480-6 BMI: 41.0 Code: 72016-5 Heart Rate 1: 84 bpm Height: 6' Respiratory Rate: 20 bpm Temperature: 36.7 (C ) / 98.0 (F) Weight: 302 lbs 01/01/2013 Blood Pressure 1: 138/86 Code: 8480-6 BMI: 41.0 Code: 77037-5 Heart Rate 1: 76 bpm Height: 6' Respiratory Rate: 20 bpm Temperature: 36.7 (C ) / 98.0 (F) Weight: 302 lbs 11/27/2012 Blood Pressure 1: 136/92 Code: 8480-6 BMI: 41.2 Code: 77978-5 Heart Rate 1: 80 bpm Height: 6' Respiratory Rate: 20 bpm Temperature: 36.6 (C ) / 97.8 (F) Weight: 304 lbs 08/28/2012 Blood Pressure 1: 126/80 Code: 8480-6 BMI: 41.8 Code: 74469-9 Heart Rate 1: 80 bpm Height: 6' Respiratory Rate: 20 bpm Temperature: 36.4 (C ) / 97.6 (F) Weight: 308 lbs 07/03/2012 Blood Pressure 1: 114/80 Code: 8480-6 BMI: 42.3 Code: 80956-2 Heart Rate 1: 72 bpm Height: 6' Respiratory Rate: 20 bpm Temperature: 36.6 (C ) / 97.9 (F) Weight: 312 lbs 06/21/2012 Blood Pressure 1: 152/100 Code: 8480-6 BMI: 43.3 Code: 92498-5 Heart Rate 1: 72 bpm Height: 6' Temperature: 36.8 (C ) / 98.2 (F) Weight: 319 lbs 05/30/2012 Blood Pressure 1: 122/78 Code: 8480-6 BMI: 43.0 Code: 42477-9 Heart Rate 1: 72 bpm Height: 6' Respiratory Rate: 20 bpm Temperature: 36.7 (C ) / 98.0 (F) Weight: 317 lbs 05/21/2012 Blood Pressure 1: 126/94 Code: 8480-6 BMI: 44.2 Code: 04172-8 Heart Rate 1: 92 bpm Height: 6' Respiratory Rate: 20 bpm Temperature: 36.6 (C ) / 97.9 (F) Weight: 326 lbs 01/24/2012 Blood Pressure 1: 122/90 Code: 8480-6 BMI: 44.5 Code: 79536-8 Heart Rate 1: 76 bpm Height: 6' Respiratory Rate: 20 bpm Temperature: 36.8 (C ) / 98.2 (F) Weight: 328 lbs 09/21/2011 Blood Pressure 1: 116/80 Code: 8480-6 BMI: 44.1 Code: 92660-7 Heart Rate 1: 92 bpm Height: 6' Respiratory Rate: 20 bpm Temperature: 36.7 (C ) / 98.1 (F) Weight: 325 lbs 09/12/2011 Blood Pressure 1: 166/110 Code: 8480-6 BMI: 45.0 Code: 31126-5 Heart Rate 1: 80 bpm Height: 6' Respiratory Rate: 20 bpm Temperature: 36.5 (C ) / 97.7 (F) Weight: 332 lbs 06/14/2011 Blood Pressure 1: 142/84 Code: 8480-6 BMI: 45.6 Code: 67448-3 Heart Rate 1: 104 bpm Height: 6' Respiratory Rate: 20 bpm Temperature: 36.4 (C ) / 97.5 (F) Weight: 336 lbs 03/03/2011 Blood Pressure 1: 130/96 Code: 8480-6 Heart Rate 1: 86 bpm Temperature: 36.1 (C) / 97.0 (F) Weight: 327 lbs 01/27/2011 Blood Pressure 1: 142/96 Code: 8480-6 BMI: 42.0 Code: 28290-8 Heart Rate 1: 72 bpm Height: 6'2" [...] and Resolution ongoing 06/21/2012 been out of [place] didn't have diabetes mellitus Blood glucose [...] Encounters Encounter Performer Loca tion Codes Date ([id number]) NURSE/OUTPAT IENT VISIT EST Diagnosis: 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, 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] Diagnosis: Essential (primary) hypertension[ICD10: I10] Diagnosis: Other specified hypothyroidism[ICD10: E03.8] Diagnosis: Mixed hyperlipidemia[ICD10: E78.2] Galina LAGUERRE CPT-4: 36843 02/19/2019 ([id number]) NURSE/OUTPAT IENT VISIT EST Diagnosis: Kidney transplant status[ICD10: Z94.0] 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] Diagnosis: Other mcc (current) drug therapy[ICD10: Z79.899] Diagnosis: Encounter for aftercare following other organ transplant[ICD10: Z48.298] Diagnosis: Mixed hyperlipidemia[ICD10: E78.2] Galina ARTEAGA [employer] CPT-4: 96554 08/24/2018 ([id number]) NURSE/OUTPAT IENT VISIT EST Diagnosis: Type 2 diabetes mellitus with diabetic neuropathy, unspecified[ICD10: E11.40] Diagnosis: Type 2 diabetes mellitus with hyperglycemia[ICD10: E11.65] 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] Diagnosis: Essential (primary) hypertension[ICD10: I10] Galina ARTEAGA [employer] CPT-4: 87917 06/29/2018 ([id number]) OFFICE/OUTPA TIENT VISIT EST Diagnosis: Slow transit constipation[ICD10: K59.01] Diagnosis: Epigastric pain[ICD10: R10.13] Diagnosis: Type 2 diabetes mellitus with hyperglycemia[ICD10: E11.65] Coleen SMITH [employer] CPT-4: 30805 06/26/2018 ([id number]) OFFICE/OUTPA TIENT VISIT EST Diagnosis: Right lower quadrant pain[ICD10: R10.31] Diagnosis: Type 2 diabetes mellitus with diabetic neuropathy, unspecified[ICD10: E11.40] Coleen SMITH [employer] CPT-4: 64258 02/06/2018 ([id number]) OFFICE/OUTPA TIENT VISIT EST Diagnosis: Type 2 diabetes mellitus with hyperglycemia[ICD10: E11.65] Diagnosis: Mixed hyperlipidemia[ICD10: E78.2] Diagnosis: Essential (primary) hypertension[ICD10: I10] Coleen CHENEY [employer] CPT-4: 93877 11/02/2017 ([id number]) PREV VISIT E ST AGE 18-39 Diagnosis: Encounter for general adult medical examination with abnormal findings[ICD10: Z00.01] Diagnosis: Abrasion of right hand, initial encounter[ICD10: S60.511A] 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] Coleen SMITH [facility] CPT-4: 10391 07/27/2017 OFFICE/OUTPATIENT SIT EST 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] Diagnosis: Tinea pedis[ICD10: B35.3] Coleen SMITH [facility] CPT-4: 34533 04/05/2017 ([id number]) OFFICE/OUTPA TIENT VISIT EST Diagnosis: DM W/O COMPLICATION TYPE I, 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] Diagnosis: Mixed hyperlipidemia[ICD10: E78.2] Diagnosis: Essential (primary) hypertension[ICD10: I10] Galina MEJIALINE Meron ARTEAGA [facility] CPT-4: 78914 06/20/2016 ([id number]) OFFICE/OUTPA TIENT VISIT EST Diagnosis: Urinary tract infection, site not specified[ICD10: N39.0] Missy Dc GALINA Meron SMITH [facility] CPT-4: 00393 02/16/2016 ([id number]) OFFICE/OUTPA TIENT VISIT EST Diagnosis: Type 2 diabetes mellitus with hyperglycemia[ICD10: E11.65] Diagnosis: Cramp and spasm[ICD10: R25.2] Diagnosis: Hematuria, unspecified[ICD10: R31.9] Galina Luis MEJIALINE Meron ARTEAGA [facility] CPT-4: 82936 12/03/2015 OFFICE/OUTPATIENT SIT EST Diagnosis: Type 2 diabetes mellitus with diabetic neuropathy, unspecified[ICD10: E11.40] Alejandra Billy GALINA SMITH [facility] CPT-4: 56620 06/24/2015 ([id number]) OFFICE/OUTPA TIENT VISIT EST Diagnosis: Acute sinusitis, unspecified[ICD10: J01.90] Diagnosis: Otitis media, unspecified, bilateral[ICD10: H66.93] Galina Luis GALINA Meron ARTEAGA [facility] CPT-4: 82398 06/11/2015 ([id number]) OFFICE/OUTPA TIENT VISIT EST Diagnosis: DM W/O COMPLICATION TYPE I[ICD9: 250.01] Diagnosis: HYPERTENSION[ICD9: 401.9] Diagnosis: HYPERLIPIDEMIA NEC/NOS[ICD9: 272.4] Diagnosis: KIDNEY TRANSPLANT STATUS[ICD9: V42.0] Galina ARTEAGA [facility] CPT-4: 18755 07/17/2014 ([id number]) OFFICE/OUTPA TIENT VISIT EST Diagnosis: DM W/O COMPLICATION TYPE I[ICD9: 250.01] Diagnosis: HYPERTENSION[ICD9: 401.9] Galina SMITH [facility] CPT-4: 81384 10/31/2013 ([id number]) OFFICE/OUTPA TIENT VISIT EST Diagnosis: DM W/O COMPLICATION TYPE II[ICD9: 250.00] Diagnosis: HYPERTENSION[ICD9: 401.9] Diagnosis: HYPERLIPIDEMIA NEC/NOS[ICD9: 272.4] Galina CASANOVAR [facility] CPT-4: 03530 08/01/2013 OFFICE/OUTPATIENT SIT EST Diagnosis: HEMATURIA NOS[ICD9: 599.70] Diagnosis: Abdominal pain, acute, right lower quadrant[ICD9: 789.03] Diagnosis: KIDNEY TRANSPLANT STATUS[ICD9: V42.0] Alejandra Santiagoleonelwill AGLINA RIVAS [facility] CPT-4: 53563 07/30/2013 ([id number]) OFFICE/OUTPA TIENT VISIT EST Diagnosis: Uncontrolled hypertension[ICD9: 401.9] Diagnosis: BRIEF DEPRESSIVE REACT[ICD9: 309.0] Galina CASANOVAR [facility] CPT-4: 34924 05/30/2013 ([id number]) OFFICE/OUTPA TIENT VISIT EST Diagnosis: HYPERTENSION[ICD9: 401.9] Diagnosis: Anticipatory grieving[ICD9: 309.0] Galina ROD NDER [employer] [facility] CPT-4: 73590 04/29/2013 ([id number]) OFFICE/OUTPA TIENT VISIT EST Diagnosis: DM W/O COMPLICATION TYPE II, UNCONTROLLED[ICD9: 250.02] Diagnosis: HYPERTENSION[ICD9: 401.9] Diagnosis: HYPOTHYROIDISM[ICD9: 244.9] Diagnosis: KIDNEY TRANSPLANT STATUS[ICD9: V42.0] Galina ASENCIO SusuKarol MARCEL ARTEAGA [facility] CPT-4: 42260 02/27/2013 OFFICE/OUTPATIENT SIT EST Diagnosis: Paronychia[ICD9: 681.9] Diagnosis: ONYCHOMYCOSIS[ICD9: 110.1] Viky DENNISONQUELINE SusuKarol LUIS [facility] CPT-4: 47386 01/01/2013 ([id number]) OFFICE/OUTPA TIENT VISIT EST Diagnosis: DM W/O COMPLICATION TYPE II, UNCONTROLLED[ICD9: 250.02] Diagnosis: HYPERLIPIDEMIA NEC/NOS[ICD9: 272.4] Diagnosis: HYPERTENSION[ICD9: 401.9] Diagnosis: KIDNEY TRANSPLANT STATUS[ICD9: V42.0] Diagnosis: HYPOTHYROIDISM[ICD9: 244.9] Galina ASENCIO SusuKarol LUIS [facility] CPT-4: 08057 11/27/2012 ([id number]) OFFICE/OUTPA TIENT VISIT EST Diagnosis: DM W/O COMPLICATION TYPE II[ICD9: 250.00] Diagnosis: HYPOTHYROIDISM[ICD9: 244.9] Diagnosis: HYPERLIPIDEMIA NEC/NOS[ICD9: 272.4] Diagnosis: HYPERTENSION[ICD9: 401.9] Galina Chance MARCELABRILSHRAVAN [facility] CPT-4: 41889 08/28/2012 ([id number]) OFFICE/OUTPA TIENT VISIT EST Diagnosis: HYPOTHYROIDISM[ICD9: 244.9] Diagnosis: DM W/O COMPLICATION TYPE II, UNCONTROLLED[ICD9: 250.02] Diagnosis: HYPERLIPIDEMIA NEC/NOS[ICD9: 272.4] Diagnosis: KIDNEY TRANSPLANT STATUS[ICD9: V42.0] Diagnosis: HYPERTENSION[ICD9: 401.9] Galina Chance LUIS [facility] CPT-4: 01947 08/20/2012 OFFICE/OUTPATIENT SIT EST Diagnosis: DM W/O COMPLICATION TYPE II, UNCONTROLLED[ICD9: 250.02] Diagnosis: HYPERTENSION[ICD9: 401.9] Galina Chance LUIS [facility] CPT-4: 78859 07/03/2012 OFFICE/OUTPATIENT SIT EST Diagnosis: DM W/O COMPLICATION TYPE II, UNCONTROLLED[ICD9: 250.02] Diagnosis: HYPERTENSION[ICD9: 401.9] Galina SMITH [facility] CPT-4: 30949 06/21/2012 OFFICE/OUTPATIENT SIT EST Diagnosis: DM W/O COMPLICATION TYPE II, UNCONTROLLED[ICD9: 250.02] Diagnosis: HYPERTENSION[ICD9: 401.9] Diagnosis: HYPERLIPIDEMIA NEC/NOS[ICD9: 272.4] Diagnosis: KIDNEY TRANSPLANT STATUS[ICD9: V42.0] Galina ARTEAGA [facility] CPT-4: 45318 05/30/2012 ([id number]) OFFICE/OUTPA TIENT VISIT EST Diagnosis: HYPERTENSION[ICD9: 401.9] Diagnosis: VISUAL DISTURBANCE[ICD9: 368.9] Galina SMITH [facility] CPT-4: 66188 05/21/2012 ([id number]) OFFICE/OUTPA TIENT VISIT EST Diagnosis: HYPERTENSION[ICD9: 401.9] Diagnosis: HYPOTHYROIDISM[ICD9: 244.9] Diagnosis: KIDNEY TRANSPLANT STATUS[ICD9: V42.0] Galina ARTEAGA [facility] CPT-4: 04290 01/24/2012 OFFICE/OUTPATIENT SIT EST Diagnosis: DIZZINESS/VERTIGO[ICD9: 780.4] Diagnosis: HYPERTENSION[ICD9: 401.9] Galina SMITH [facility] CPT-4: 58883 09/21/2011 ([id number]) OFFICE/OUTPA TIENT VISIT EST Diagnosis: HYPERTENSION[ICD9: 401.9] Diagnosis: HYPOTHYROIDISM[ICD9: 244.9] Diagnosis: HYPERLIPIDEMIA NEC/NOS[ICD9: 272.4] Diagnosis: KIDNEY TRANSPLANT STATUS[ICD9: V42.0] Galina ARTEAGA [facility] CPT-4: 22738 09/12/2011 OFFICE/OUTPATIENT SIT EST Diagnosis: HYPOTHYROIDISM[ICD9: 244.9] Diagnosis: HYPERTENSION[ICD9: 401.9] Diagnosis: CEPHALGIA[ICD9: 784.0] Galina SMITH [facility] CPT-4: 86400 06/14/2011 OFFICE/OUTPATIENT SIT EST Diagnosis: HYPERTENSION[ICD9: 401.9] Diagnosis: PHARYNGITIS, ACUTE[ICD9: 462] Diagnosis: HYPOTHYROIDISM[ICD9: 244.9] Galina SMITH DO [employer] CPT-4: 02801 03/03/2011 OFFICE/OUTPATIENT SIT EST Diagnosis: HYPOTHYROIDISM[ICD9: 244.9] Diagnosis: KIDNEY TRANSPLANT STATUS[ICD9: V42.0] Diagnosis: HYPERTENSION[ICD9: 401.9] Diagnosis: SINUSITIS, ACUTE[ICD9: 461.9] Galinamarino SMITH DO [employer] CPT-4: 06602 01/27/2011 ([id number]) OFFICE/OUTPA TIENT VISIT EST Galina ARTEAGA [employer] CPT-4: 97245 12/02/2010 Plan of Care Planned Activity Notes C odes Status Date Appointment: Galina Smith WPtel: [address] [place] [address] LAB 02/19/2019 Appointment: Coleen Frey [address] had 2 flat tires this morning. NO SHOW - FORGIVEN 02/19/2019 Appointment: Galina Smith WPtel: [address] [place] [address] LAB 08/24/2018 Appointment: Galina Smith WPtel: [address] [place] [address] LAB 06/29/2018 Visit Diagnosis Plan: Epigastric pain [...] he had labs done in dec at [facility]. will obtain lab results and order additional labs as needed. ICD-9 : 250.02 ICD-10 : E11.65 06/26/2018 Appointment: Coleen Frey [address] [place], [place] [id number] ACUTE ILLNESS 06/26/2018 Visit Diagnosis Plan: Type [...] ICD-10 : R10.31 02/06/2018 Appointment: Coleen Frey [address] [place], [place] [id number] ACUTE ILLNESS 02/06/2018 Patient Education: Patient Medication [...] ICD-10 : E11.65 11/02/2017 Appointment: Coleen Frey [address] [place], [place] [id number] FOLLOW UP 11/02/2017 Patient Education: Patient Medication Summary Completed 11/02/2017 Visit Diagnosis Plan: Abrasion of right hand, initial encounter Discussion: keflex prescribed for infect ion. instructed patient to call or rtc next week if no improvement. keep area clean and dry. ICD-9 : 914.0 ICD-10 : S60.511A 07/27/2017 Visit Diagnosis Plan: Encounter for [facility] adult medical examination with abnormal findings Discussion: [...] ICD-10 : E11.59 07/27/2017 Appointment: Coleen Frey [address] [place], [place] [id number] Annual Well Visit 07/27/2017 Patient Education: Patient [...] : B35.3 04/05/2017 Appointment: [id number] [facility] 04/05/2017 Patient Education: Patient Medication Summary Completed 04/05/2017 Patient Education: Patient Medication Summary Completed 04/05/2017 Care Plan: CBC Pending 04/05/2017 Care Plan: LIPID PANEL LOINC : 74679-9 Pending 04/05/2017 Care Plan: COMPREHEN METABOLIC PANEL LOINC : 51041-4 Pending 04/05/2017 Visit Plan: Patient admits that [...] scale given 06/20/2016 Appointment: Galina Smith WPtel: [address] [place], [place] [id number] 06/16 lm-sp 06/20 lm ~sl FOLLOW UP 06/20/2016 Patient Education: Patient Medication Summary Completed 06/20/2016 Patient Education: Patient Medication Summary Completed 05/04/2016 Care Plan: COMPREHEN METABOLIC PANEL LOINC : 34149-1 Pending 05/04/2016 Care Plan: CBC Pending 05/04/2016 Care Plan: LIPID PANEL LOINC : 34769-4 Pending 05/04/2016 Care Plan: A1C HPLC LO INC : 89356-4 Pending 05/04/2016 Visit Plan: Discussed with Dr Norwood er Treatment as above while awaiting specialist to return his call Push fluids Follow up celine if not improving 02/16/2016 Visit Plan: Discussed with Dr Norwood er Treatment as above while awaiting specialist to return his call Push fluids Follow up celine if not improving 02/16/2016 Appointment: Missy Dc [phone] ACUTE ILLNESS 02/16/2016 Patient Education: Patient [...] as well 12/03/2015 Appointment: Galina Smith WPtel: [address] [place], [place] [phone] ACUTE ILLNESS 12/03/2015 Patient Education: Patient Medication [...] improved. 06/24/2015 Appointment: Alejandra Billy WPtel: [address] [place], [place] [id number] ACUTE ILLNESS 06/24/2015 Patient Education: Patient Medication Summary Completed 06/24/2015 Patient Education: Lyrica - 18+ - No MA NE Completed 06/24/2015 Visit Plan: Saline nasal flushes pr n. Tylenol/Motrin prn headache. Notify if persists/symptoms worsening. Obtain most recent lab Warned of increased BS with prednisone--has sliding scale to use 06/11/2015 Appointment: Galina Smith WPtel: [address] [place] [address] 06/10/15 cn....06/10/15 appt confirme d cn Annual Well Visit 05/14 Patient Education: Patient Medication Summary Completed 06/11/2015 Appointment: Galina Smith WPtel: [address] [place], [place] [phone] FOLLOW UP 10/15/2014 Patient Education: Patient Medication Summary Completed 09/03/2014 Care Plan: COMPREHEN METABOLIC PANEL LOINC : 56187-6 Ordered 09/03/2014 Visit Plan: Obtain most recent lab results Will likely need HbA1C and Lipids if were not done Accuchecks q AC and HS 07/17/2014 Appointment: Galina Smith WPtel: [address] [place], [place] [id number] FOLLOW UP 07/17/2014 Patient Education: Patient Medication Summary Completed 07/17/2014 Appointment: Galina Smith WPtel: [address] [place], [place] [id number] 01/29 01/30 NO SHOW FOLLOW UP 01/30/2014 Visit Plan: Check CMP, HbA1C, CBC, Lipids Pt sees transplant doctor next month Pt is currently just using insulin prn and monitering BS 10/31/2013 Appointment: Galina Smith WPtel: [address] [place] [address] FOLLOW UP 10/31/2013 Patient Education: Patient Medication Summary Completed 10/31/2013 Visit Plan: Continue current meds a nd acuchecks 08/01/2013 Appointment: Galina Smith WPtel: [address] [place] [address] 07/31 FOLLOW UP 08/01/2013 Patient Education: Patient Medication Summary Completed 08/01/2013 Visit Plan: CBC, CMP, CRP To [facility] for CT abdomen/Pelvis w/o contrast 07/30/2013 Appointment: Alejandra Billy WPtel: [address] [place] [address] ACUTE ILLNESS 07/30/2013 Patient Education: Patient Medication Summary Completed 07/30/2013 Visit Plan: Restart Diovan--pt says needs PA Continue fluoxetine at 20mg daily 05/30/2013 Appointment: Galina Smith WPtel: [address] [place] [address] FOLLOW UP 05/30/2013 Patient Education: Patient Medication Summary Completed 05/30/2013 Appointment: Galina Smith WPtel: [address] [place] [address] [place] has appt following day FOLLOW UP 05/29/2013 Visit Plan: Restart Diovan and Amlo dopine as has been out--new rx sent out Trial of Fluoxetine 20mg q AM Stress Reducers 04/29/2013 Appointment: Galina Smith WPtel: [address] [place] [address] 04/26 MOM made appt. confirmed monday ACUTE ILLNESS 04/29/2013 Patient Education: Patient Medication Summary Completed 04/29/2013 Visit Plan: Continue current meds a nd accuchecks Pt going for fasting lab next month 02/27/2013 Appointment: Galina Smith WPtel: [address] [place], [place] [phone] FOLLOW UP 02/27/2013 Patient Education: Patient Medication Summary Completed 02/27/2013 Appointment: Viky Acosta WPtel: [address] [place], [place] [id number] ACUTE ILLNESS 01/01/2013 Patient Education: Patient Medication Summary Completed 01/01/2013 Visit Plan: Continue current meds C heck fasting lab next week 11/27/2012 Appointment: Galina Smith WPtel: [address] [place] [address] FOLLOW UP 11/27/2012 Patient Education: Patient Medication Summary Completed 11/27/2012 Visit Plan: Lab discussed Continue current meds and accuchecks Pt sees transplant doctor in in October Check fasting lab and fwup in os 08/28/2012 Appointment: Galina Smith WPtel: [address] [place], [place] [phone] 08/27 FOLLOW UP 08/28/2012 Patient Education: Patient Medication Summary Completed 08/28/2012 Appointment: Galina Smith WPtel: [address] [place], [place] [phone] LAB 08/20/2012 Patient Education: Patient Medication Summary Completed 08/20/2012 Visit Plan: Continue levemir at cur rent dose with accuchecks Use apidra with sliding scale Check Chem 7 and HbA1C in 2mos 07/03/2012 Appointment: Galina Smith WPtel: [address] [place], [place] [phone] 07/02 vm FOLLOW UP 07/03/2012 Patient Education: [...] 320mg daily 06/21/2012 Appointment: Galina Smith WPtel: [address] [place], [place] [id number] ACUTE ILLNESS 06/21/2012 Patient Education: Patient Medication Summary Completed 06/21/2012 Visit Plan: Increase Levemir to 75 u sc q PM Continue sliding scale insulin with accuchecks q AC and HS Call in 1wk with BS readings 05/30/2012 Appointment: Galina Smith WPtel: [address] [place], [place] [id number] Hospital Follow Up 05/30/2012 Patient Education: Patient Medication Summary Completed 05/30/2012 Appointment: Galina Smith WPtel: [address] [place], [place] [id number] 05/21 - cancelled appointment for 05/22 because PT was worked in on 05/21 FOLLOW UP 05/22/2012 Visit Plan: Obtain lab done last mo from [facility] See optometry for dilated eye exam and eye pressures today May need CT head pending results of eye evaluation 05/21/2012 Appointment: Galina Smith WPtel: [address] [place], [place] [id number] WORK IN 05/21/2012 Appointment: Galina Smith WPtel: [address] [place], [place] [id number] LAB 05/21/2012 Patient Education: Patient Medication Summary Completed 05/21/2012 Visit Plan: Continue current meds O btain most recent lab done at [facility] 01/24/2012 Visit Plan: Continue current meds O btain most recent lab done at [facility] See eye doctor today for dilated exam and eye pressures May need CT head pending dilated eye exam results 01/24/2012 Visit Plan: Continue current meds C heck CBC, CMP, TSH, Free T4 01/24/2012 Appointment: Galina Smith WPtel: [address] [place] [address] FOLLOW UP 01/24/2012 Patient Education: Patient Medication Summary Completed 01/24/2012 Visit Plan: Decrease Norvasc to 2.5 mg daily Check CBC, CMP, TSH, Free T4 09/21/2011 Appointment: Galina Smith WPtel: [address] [place], [place] [id number] ACUTE ILLNESS 09/21/2011 Patient Education: Patient Medication Summary Completed 09/21/2011 Visit Plan: Continue Diovan at curr ent dose Add amlodopine Check Lipids/LFTs with next lab 09/12/2011 Appointment: Galina Smith WPtel: [address] [place] [address] FOLLOW UP 09/12/2011 Patient Education: Patient Medication Summary Completed 09/12/2011 Visit Plan: Increase Diovan to 320m g po daily Check TSH and Free T4 with kidney lab next week 06/14/2011 Appointment: Galina Smith WPtel: [address] [place] [address] FOLLOW UP 06/14/2011 Patient Education: Patient Medication Summary Completed 06/14/2011 Visit Plan: Z-pack then new tootheb ivory Start Diovan 03/03/2011 Appointment: Galina Smith WPtel: [address] [place] [address] ACUTE ILLNESS 03/03/2011 Patient Education: Patient Medication Summary Completed 03/03/2011 Visit Plan: Check TSH, Free T4 toda y Pt will moniter BP at home See if treatment of sinuses helps headaches 01/27/2011 Appointment: Galina Smith WPtel: [address] [place], [place] [id number] FOLLOW UP 01/27/2011 Patient Education: Patient Medication Summary Completed 01/27/2011 Visit Plan: Continue current meds a nd proceed with lab per kidney transplant doctor Start Synthroid at 50mcg po daily 12/02/2010 Appointment: Galina Smith WPtel: [address] [place] [address] FOLLOW UP 12/02/2010 Patient Education: Patient Medication [...] to him Restart Diovan 320mg daily . Continue levemir a t current dose with accuchecks Use apidra with sliding scale Check Chem 7 and HbA1C in 2mos . Obtain lab done la [facility] mo from [facility] See optometry for dilated eye exam and eye pressures today May need CT head pending results of eye evaluation . Check CMP, HbA1C, CBC, Lipids Pt sees transplant doctor next month Pt is currently just using insulin prn and monitering BS . Decrease Norvasc t o 2.5mg daily Check CBC, CMP, TSH, Free T4 . Restart Diovan--pt says needs PA Continue fluoxetine at 20mg daily . Continue current m eds Obtain most recent lab done at [facility] . Continue current m eds Obtain most recent lab done at [facility] See eye doctor today for dilated exam and eye pressures May need CT head pending dilated eye exam results . Discussed with Dr Smith Treatment as above while awaiting specialist to return his call Push fluids Follow up celine if not improving . Discussed with Dr Smith Treatment as above while awaiting specialist to return his call Push fluids Follow up celine if not improving . Continue current m eds and proceed with lab per kidney transplant doctor Start Synthroid at 50mcg po daily . Continue current m eds Check fasting lab next week . Obtain most recent lab results Will likely need HbA1C and Lipids if were not done Accuchecks q AC and HS . Continue Diovan at current dose Add amlodopine Check Lipids/LFTs with next lab . Z-pack then new to [place] Start Diovan . Continue current m eds Check CBC, CMP, TSH, Free T4 . Check TSH, Free T4 today Pt will moniter BP at home See if treatment of sinuses helps headaches . Patient admits grace t has not [...] . Labs completed thi s am in [facility] but do not have results yet. Start Lyrica 75mg PO bid Will Call in a week and let know if pain is improved. . Continue current m eds and accuchecks Pt going for fasting lab next month . CBC, CMP, CRP To [facility] for CT abdomen/Pelvis w/o contrast . Saline nasal flush es prn. Tylenol/Motrin prn headache. Notify if persists/symptoms worsening. Obtain most recent lab Warned of increased BS with prednisone--has sliding scale to use . Labs completed thi s am in [facility] but do not have results yet. Start Lyrica 75mg PO bid Will Call in a week and let know if pain is improved. . Restart Diovan and Amlodopine as has been out--new rx sent out Trial of Fluoxetine 20mg q AM Stress Reducers
--- OUTSIDE RECORDS SUMMARY | 2019-08-21 00:30 | XMS REPORT | CCD ---
Author Author Cuauhtemoc Smith D.O. Organization [facility] Address [address] [place] [address] Phone Care Team Providers Care Cheese Grader Name Role Phone Galina Smith D.O., PP Unavailable CCM Unavailable Summary Purpose Interface Exchange Insurance Providers Payer name Policy type / Coverage type Covered libertarian ID Effective Begin Date Effective End Date Blue Cross Blue Shield Blue Cross/Bl ue Shield [id number] 2017 Un known Family History Family History data not found Social History Social History Element Codes Description Effective Dates Tobacco history SNOMED CT: 619305478 Currently uses smokeless tobacco 06/14/2011 Allergies, Adverse [...] V42.0 ICD-10: Z94.0 Active 08/24/2018 Unknown 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 ICD-9: V58.69 ICD-10: [...] ICD-9: V42.0 ICD-10: Z94.0 08/24/2018 Active 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 ICD-9: V58.69 ICD-10: [...] Date Stop Date Sta tus Fill Instructions Levemir FlexTouch U- 100 Insulin 100 unit/mL (3 mL) subcutaneous pen RxNorm: 597123 90 Unit(s) SQ BID 01/08/2019 04/07/2019 Active Levemir FlexTouch U- 100 Insulin 100 unit/mL (3 mL) subcutaneous pen RxNorm: 091674 90 Unit(s) SQ BID 12/04/2018 12/03/2018 Inactive Levemir FlexTouch U- 100 Insulin 100 unit/mL (3 mL) subcutaneous pen RxNorm: 766217 90 Unit(s) SQ BID 12/04/2018 01/07/2019 Inactive Levemir FlexTouch U- 100 Insulin 100 unit/mL (3 mL) subcutaneous pen RxNorm: 699714 70 Unit(s) SQ BID 10/26/2018 12/04/2018 Inactive Levemir FlexTouch U- 100 Insulin 100 unit/mL (3 mL) subcutaneous pen RxNorm: 933592 GIVE 90 UNITS SUBCUTANEOUSLY TWICE DAILY 10/08/2018 10/26/2018 Inactive Levemir FlexTouch U- 100 Insulin 100 unit/mL (3 mL) subcutaneous pen RxNorm: 933882 90 Unit(s) SQ BID 07/30/2018 10/07/2018 Inactive Levemir FlexTouch U- 100 Insulin 100 unit/mL (3 mL) subcutaneous pen RxNorm: 191715 90 Unit(s) SQ BID 07/06/2018 07/29/2018 Inactive Pen Needle 31 gauge x 5/16" RxNorm: USE DIRECTED 03/21/2018 No Stop Date Active Levemir FlexTouch U- 100 Insulin 100 unit/mL (3 mL) subcutaneous pen RxNorm: 970283 80 Unit(s) SQ BID 02/15/2018 07/06/2018 Inactive Levemir FlexTouch U- 100 Insulin 100 unit/mL (3 mL) subcutaneous pen RxNorm: 219399 INJECT 105 UNITS SUBCUTANEOUSLY IN THE EVENING 01/24/2018 02/15/2018 Inactive Levemir FlexTouch U- 100 Insulin 100 unit/mL (3 mL) subcutaneous pen RxNorm: 920771 INJECT 105 UNITS SUBCUTANEOUSLY IN THE EVENING 12/26/2017 01/23/2018 Inactive Novolog Flexpen U-10 0 Insulin aspart 100 unit/mL subcutaneous RxNorm: 5497966 INJECT SUBCUTANEOUSLY NEEDED PER SLIDING SCALE 12/25/2017 No Stop Date Active Levemir FlexTouch U- 100 Insulin 100 unit/mL (3 mL) subcutaneous pen RxNorm: 477640 70 Unit(s) SQ BID 11/03/2017 11/03/2017 Inactive Levemir FlexTouch U- 100 Insulin 100 unit/mL (3 mL) subcutaneous pen RxNorm: 535143 105 Unit(s) SQ QPM 11/02/2017 11/02/2017 Inactive Levemir FlexTouch U- 100 Insulin 100 unit/mL (3 mL) subcutaneous pen RxNorm: 389098 105 Unit(s) SQ QPM Needs updated labs 11/01/2017 11/01/2017 Inactive Levemir FlexTouch U- 100 Insulin 100 unit/mL (3 mL) subcutaneous pen RxNorm: 186482 Unit(s) 105 Unit(s) SQ QPM 09/18/2017 09/18/2017 Inactive Levemir FlexTouch U- 100 Insulin 100 unit/mL (3 mL) subcutaneous pen RxNorm: 357298 105 Unit(s) SQ QPM 08/07/2017 09/18/2017 Inactive cephalexin 500 mg ca psule RxNorm: 759691 1 Capsule(s) PO BID 07/27/2017 08/02/2017 Inactive Levemir FlexTouch U- 100 Insulin 100 unit/mL (3 mL) subcutaneous pen RxNorm: 664293 105 Unit(s) SQ QPM 06/07/2017 06/07/2017 Inactive Levemir FlexTouch 10 0 unit/mL (3 mL) subcutaneous insulin pen RxNorm: 995154 105 Unit(s) SQ QPM 05/11/2017 06/07/2017 Inactive Lipitor 40 mg tablet RxNorm: 114466 1.5 Tablet(s) PO QD 04/05/2017 10/01/2017 Inactive Diovan 320 mg tablet RxNorm: 846739 1 Tablet(s) PO QD 04/05/2017 03/30/2018 Inactive Lipitor 40 mg tablet RxNorm: 885747 1 Tablet(s) PO QD 04/05/2017 04/04/2017 Inactive nystatin 100,000 uni t/gram topical ointment RxNorm: 445496 1 Gram(s) TOP BID 04/05/2017 05/02/2017 In active Levemir FlexTouch 10 0 unit/mL (3 mL) subcutaneous insulin pen RxNorm: 320394 105 Unit(s) SQ QPM 04/05/2017 04/05/2017 Inactive Levemir FlexTouch 10 0 unit/mL (3 mL) subcutaneous insulin pen RxNorm: 776794 90 Unit(s) SQ QPM LAST REFILL UNTIL LABS AND APPOINTMENT!!!! 04/05/2017 05/11/2017 Inactive Novolog Flexpen 100 unit/mL subcutaneous RxNorm: 6737683 Unit(s) INJECT SUBCU TANEOUSLY NEEDED PER SLIDING SCALE---NEEDS UPDATED LABS 03/07/2017 12/03/2018 Inactive Levemir FlexTouch 10 0 unit/mL (3 mL) subcutaneous insulin pen RxNorm: 022398 90 Unit(s) SQ QPM LAST REFILL UNTIL LABS AND APPOINTMENT!!!! 02/17/2017 03/18/2017 Inactive Levemir FlexTouch 10 0 unit/mL (3 mL) subcutaneous insulin pen RxNorm: 576739 90 Unit(s) SQ QPM NEEDS FASTING LABS AND APPOINTMENT BEFORE FURTHER REFILLS 12/22/2016 02/17/2017 In active Novolog Flexpen U-10 0 Insulin aspart 100 unit/mL subcutaneous RxNorm: 5842806 Unit(s) INJECT SUBCUTANEOUSLY NEEDED PER SLIDING SCALE---NEEDS UPDATED LABS 11/28/2016 03/07/2017 Inactive Levemir FlexTouch 10 0 unit/mL (3 mL) subcutaneous insulin pen RxNorm: 987969 90 Unit(s) VAG QPM 11/08/2016 12/22/2016 Inactive Levemir FlexTouch 10 0 unit/mL (3 mL) subcutaneous insulin pen RxNorm: 440379 90 Unit(s) VAG QPM 11/08/2016 12/21/2016 Inactive Levemir FlexTouch 10 0 unit/mL (3 mL) subcutaneous insulin pen RxNorm: 612742 80 Unit(s) VAG QPM 09/05/2016 11/08/2016 Inactive Levemir FlexTouch 10 0 unit/mL (3 mL) subcutaneous insulin pen RxNorm: 084447 85 Unit(s) SQ QD 07/22/2016 09/05/2016 Inactive Levemir FlexTouch 10 0 unit/mL (3 mL) subcutaneous insulin pen RxNorm: 487903 85 Unit(s) SQ QD 07/04/2016 07/21/2016 Inactive Levemir FlexTouch 10 0 unit/mL (3 mL) subcutaneous insulin pen RxNorm: 545978 85 Unit(s) SQ QD 06/14/2016 06/19/2016 Inactive Levemir FlexTouch 10 0 unit/mL (3 mL) subcutaneous insulin pen RxNorm: 178727 85 Unit(s) SQ QD 05/03/2016 05/22/2016 Inactive Levemir FlexTouch 10 0 unit/mL (3 mL) subcutaneous insulin pen RxNorm: 999822 85 Unit(s) SQ QD 05/03/2016 05/02/2016 Inactive Levemir FlexTouch 10 0 unit/mL (3 mL) subcutaneous insulin pen RxNorm: 839329 85 Unit(s) SQ QD 03/14/2016 04/22/2016 Inactive cefuroxime axetil 25 0 mg tablet RxNorm: 902651 1 Tablet(s) PO BID 02/16/2016 02/25/2016 Inactive Levemir FlexTouch 10 0 unit/mL (3 mL) subcutaneous insulin pen RxNorm: 765417 85 Unit(s) SQ QD 02/03/2016 03/13/2016 Inactive Levemir FlexTouch 10 0 unit/mL (3 mL) subcutaneous insulin pen RxNorm: 107023 85 Unit(s) SQ QD 12/07/2015 02/02/2016 Inactive Pen Needle 31 gauge x 5/16" RxNorm: USE DIRECTED 11/19/2015 05/16/2016 Inactive Levemir FlexTouch 10 0 unit/mL (3 mL) subcutaneous insulin pen RxNorm: 212777 INJECT 75 UNITS SUBCUTANEOUSLY ONCE DAILY; NEED LABS AND APPT 10/06/2015 12/04/2015 Inactive Novolog Flexpen 100 unit/mL subcutaneous RxNorm: 7125131 INJECT SUBCUTANEOUSL Y NEEDED PER SLIDING SCALE 09/15/2015 11/28/2016 Inactive Levemir FlexTouch 10 0 unit/mL (3 mL) subcutaneous insulin pen RxNorm: 678850 75 Unit(s) SQ QD Needs lab and appointment 07/13/2015 10/05/2015 Inactive Lyrica 75 mg capsule RxNorm: 789141 1 Capsule(s) PO BID 06/24/2015 07/23/2015 Inactive Levemir FlexTouch 10 0 unit/mL (3 mL) subcutaneous insulin pen RxNorm: 438279 75 Unit(s) SQ QD Needs lab and appointment 06/23/2015 07/12/2015 Inactive Novolog Flexpen 100 unit/mL subcutaneous RxNorm: 9317215 Unit(s) SQ as needed Sliding scale 06/15/2015 09/14/2015 Inactive Flonase Allergy Reli ef 50 mcg/actuation nasal spray,suspension RxNorm: 2 [place] NASAL QHS 06/11/2015 12/02/2015 Inactive prednisone 20 mg tablet RxNorm: 916739 1 Tablet(s) PO TID for 3 days then 1 po BID for 3 days then one daily for 3 days 06/11/2015 12/02/2015 Inactive cefdinir 300 mg capsule RxNorm: 228893 2 Capsule(s) PO QD 06/11/2015 06/24/2015 Inactive Levemir FlexTouch 10 0 unit/mL (3 mL) subcutaneous insulin pen RxNorm: 883728 75 Unit(s) SQ QD Needs lab and appointment 05/29/2015 06/22/2015 Inactive Novolog 100 unit/mL subcutaneous solution RxNorm: 515880 Unit(s) SQ Inject as directed using sliding scale B 05/29/2015 12/03/2018 Inactive Levemir Flexpen 100 unit/mL (3 mL) solution subcutaneous insulin pen RxNorm: 865605 INJECT 75 UNITS SUBCUTANEOUSLY EVERY DAY 05/11/2015 05/29/2015 Inactive Levemir FlexTouch 10 0 unit/mL (3 mL) subcutaneous insulin pen RxNorm: 932047 75 Unit(s) SQ QHS 03/30/2015 12/03/2018 Inactive Levemir FlexTouch 10 0 unit/mL (3 mL) subcutaneous insulin pen RxNorm: 932132 75 Unit(s) SQ QHS 03/09/2015 03/29/2015 Inactive Contour Test Strips RxNorm: Miscellaneous 01/27/2015 No Stop Date Active Novolog 100 unit/mL subcutaneous solution RxNorm: 195493 Unit(s) SQ Inject as directed using sliding scale B 01/27/2015 05/29/2015 Inactive Levemir Flexpen 100 unit/mL (3 mL) solution subcutaneous insulin pen RxNorm: 331167 INJECT 75 UNITS SUBCUTANEOUSLY EVERY DAY 11/05/2014 03/09/2015 Inactive Levemir Flexpen 100 unit/mL (3 mL) solution subcutaneous insulin pen RxNorm: 751377 INJECT 75 UNITS SUBCUTANEOUSLY EVERY DAY 08/13/2014 10/31/2014 Inactive Novolog 100 unit/mL subcutaneous solution RxNorm: 423986 Unit(s) SQ Inject as directed using sliding scale B 07/15/2014 01/26/2015 Inactive Apidra SoloStar 100 unit/mL subcutaneous insulin pen RxNorm: 554807 Unit(s) SQ INJECT DIRECTED USING SLIDING SCALE B 07/11/2014 07/14/2014 Inactive Diovan 320 mg tablet RxNorm: 777179 1 Tablet(s) PO QD 06/10/2014 06/04/2015 Inactive Apidra SoloStar 100 unit/mL subcutaneous insulin pen RxNorm: 123362 Unit(s) SQ INJECT DIRECTED USING SLIDING SCALE B 04/18/2014 07/10/2014 Inactive Levemir Flexpen 100 unit/mL (3 mL) solution subcutaneous insulin pen RxNorm: 544108 Unit(s) SQ INJECT 75 UNITS SUBCUTANEOUSLY EVERY DAY 02/28/2014 02/27/2014 Inactive [SAVINGS FOR UNINSURED PATIENTS -- BIN:[id number], PCN: [id number], Group: [id number], ID# [id number], Process claim through [employer], for questions: . THIS IS NOT INSURANCE.] Apidra SoloStar 100 unit/mL subcutaneous insulin pen RxNorm: 158455 Unit(s) SQ INJECT DIRECTED USING SLIDING SCALE B 09/05/2013 04/17/2014 Inactive Pen Needle 31 gauge x 5/16" RxNorm: Miscellaneous USE DIRECT ED WITH LEVEMIR AND APIDRA 08/23/2013 11/18/2015 Inactive Prograf 1 mg capsule RxNorm: 537779 2 Capsule(s) PO BID Generic OK to fill 08/21/2013 No Stop Date Active Diovan 320 mg tablet RxNorm: 862053 1 Tablet(s) PO QD 05/30/2013 05/24/2014 Inactive fluoxetine 20 mg tablet RxNorm: 458366 1 Tablet(s) PO QAM 05/30/2013 07/31/2013 Inactive amlodipine 5 mg tablet RxNorm: 015189 1 Tablet(s) PO QD 04/29/2013 04/23/2014 Inactive fluoxetine 20 mg tablet RxNorm: 889111 1 Tablet(s) PO QAM 04/29/2013 05/29/2013 Inactive ketoconazole 2 % top ical cream RxNorm: 305344 Application TOP BID f or 2-4wks 04/29/2013 05/12/2013 In active Diovan 320 mg tablet RxNorm: 352424 1 Tablet(s) PO QD 04/29/2013 06/10/2014 Inactive Apidra SoloStar 100 unit/mL subcutaneous insulin pen RxNorm: 441558 Unit(s) SQ Sliding Scale B 02/19/2013 09/05/2013 Inactive Levemir Flexpen 100 unit/mL (3 mL) solution subcutaneous insulin pen RxNorm: 771708 Insulin Pen SQ INJECT 75 UNITS SUBCUTANEOUSLY EVERY DA Y 01/21/2013 02/28/2014 Inactive Septra DS 800 mg-160 mg tablet RxNorm: 409145 1 Tablet(s) PO BID an tibiotic 01/01/2013 01/07/2013 In active ketoconazole 2 % top ical cream RxNorm: 633730 1 Application TOP BID 01/01/2013 01/14/2013 Inactive Levemir Flexpen 100 unit/mL (3 mL) Sub-Q Insulin Pen RxNorm: 022955 Unit(s) SQ INJECT 75 UNITS SUB-Q ONCE A DAY 12/07/2012 No Stop Date Active Levemir Flexpen 100 unit/mL (3 mL) Sub-Q Insulin Pen RxNorm: 262537 Unit(s) SQ INJECT 75 UNITS SUB-Q ONCE A DAY 10/22/2012 12/07/2012 Inactive Levemir Flexpen 100 unit/mL (3 mL) Sub-Q Insulin Pen RxNorm: 791844 75 Unit(s) SQ QHS 08/20/2012 10/22/2012 Inactive Diovan 320 mg tablet RxNorm: 368423 1 Tablet(s) PO QD 07/30/2012 04/28/2013 Inactive Levemir Flexpen 100 unit/mL (3 mL) Sub-Q Insulin Pen RxNorm: 629114 Insulin Pen SQ INJECT 75 UNITS SUB-Q ONCE A DAY 07/30/2012 10/21/2012 Inactive Levemir Flexpen 100 unit/mL (3 mL) Sub-Q Insulin Pen RxNorm: 726199 75 Unit(s) SQ QHS 07/30/2012 08/19/2012 Inactive Levemir Flexpen 100 unit/mL (3 mL) Sub-Q Insulin Pen RxNorm: 807668 75 Unit(s) SQ QHS 07/30/2012 07/29/2012 Inactive Diovan 320 mg tablet RxNorm: 067671 1 Tablet(s) PO QD 06/21/2012 06/20/2012 Inactive Diovan 320 mg tablet RxNorm: 291792 1 Tablet(s) PO QD 06/21/2012 06/20/2012 Inactive Diovan 320 mg tablet RxNorm: 613765 1 Tablet(s) PO QD 06/21/2012 07/29/2012 Inactive CellCept 250 mg capsule RxNorm: 478407 4 Capsule(s) PO BID 06/14/2012 06/20/2012 Inactive Prograf 1 mg capsule RxNorm: 502614 2 Capsule(s) PO BID Generic OK to fill 06/14/2012 06/20/2012 In active Apidra SoloStar 100 unit/mL Sub-Q Insulin Pen RxNorm: 550234 Unit(s) SQ Sliding Sc supriya B 06/13/2012 12/03/2018 Inactive Levemir Flexpen 100 unit/mL (3 mL) Sub-Q Insulin Pen RxNorm: 888875 75 Unit(s) SQ QD 06/13/2012 No Stop Date Active Apidra SoloStar 100 unit/mL Sub-Q Insulin Pen RxNorm: 541250 Unit(s) SQ Sliding Sc supriya B 06/13/2012 No Stop Date Active One Touch Delkaren Adeel cets RxNorm: Miscellaneous 0 06/13/2012 04/04/2017 Inactive Lipitor 40 mg tablet RxNorm: 706256 1 Tablet(s) PO QD 05/30/2012 08/27/2012 Inactive Diovan 320 mg tablet RxNorm: 749700 1 Tablet(s) PO QD 05/30/2012 06/20/2012 Inactive Tricor 145 mg tablet RxNorm: 709517 1 Tablet(s) PO QD 05/30/2012 08/27/2012 Inactive Lipitor 20 mg Tab RxNorm: 757747 1 Tablet(s) PO QD 09/12/2011 05/29/2012 Inactive Synthroid 50 mcg Tab RxNorm: 493023 1 Tablet(s) PO QD 09/12/2011 12/02/2015 Inactive Diovan 320 mg tablet RxNorm: 157856 1 Tablet(s) PO QD 09/12/2011 03/09/2012 Inactive amlodipine 5 mg tablet RxNorm: 557525 1 Tablet(s) PO QD 09/12/2011 03/09/2012 Inactive Diovan 320 mg Tab RxNorm: 348970 1 Tablet(s) PO QD 06/14/2011 09/11/2011 Inactive Diovan 160 mg Tab RxNorm: 563242 1 Tablet(s) PO QD 03/03/2011 06/13/2011 Inactive cefdinir 300 mg Cap RxNorm: 364982 2 Capsule(s) PO QD 01/27/2011 02/05/2011 Inactive Synthroid 50 mcg Tab RxNorm: 706653 1 Tablet(s) PO QD 12/02/2010 01/30/2011 Inactive Multivitamin & [place] Formula Tab RxNorm: 1 Tablet(s) PO QD No Start Date Active Miralax 17 gram/dose oral powder RxNorm: 554745 PO BID in 6-8 ounces of water No Start Date Active Tylenol Extra Streng th 500 mg tablet RxNorm: 451479 Tablet(s) PO as neede d No Start Date Active Tricor Oral RxNorm: Oral No Start Date 05/29 Inactive MagOx 400 mg tablet RxNorm: 947617 1 Tablet(s) PO QD No Start Date 06/19/2016 Inactive sodium bicarbonate Oral RxNorm: Oral No Start Date 06/19/2016 Inactive Fish Oil 1,000 mg ca psule RxNorm: 1 Capsule(s) PO QD No Start Date 04/04/2017 Inactive Novofine Misc RxNorm: Miscellaneous No Start Date 06/12/2012 Inactive Percocet 5 mg-325 mg tablet RxNorm: 5816706 Tablet(s) PO as need ed Dr Parson No Start Date 04/04/2017 Inactive Contour Test Strips RxNorm: miscellaneous No Start Date 01/26/2015 Inactive Prograf 1 mg capsule RxNorm: 838175 2 Capsule(s) PO BID No Start Date 06/13/2012 Inactive Zantac 150 mg Tab RxNorm: 210149 Tablet(s) PO PRN No Start Date 12/02/2015 Inactive Levemir FlexTouch 10 0 unit/mL (3 mL) subcutaneous insulin pen RxNorm: 953731 75 Unit(s) SQ QHS No Start Date 03/08/2015 Inactive CellCept 250 mg capsule RxNorm: 976571 4 Capsule(s) PO BID No Start Date 06/13/2012 Inactive Novolog 100 unit/mL subcutaneous solution RxNorm: 110804 Unit(s) SQ Inject as directed using sliding scale B No Start Date 07/14/2014 Inactive Novolog Flexpen 100 unit/mL subcutaneous RxNorm: 0768006 Unit(s) SQ as needed Sliding scale No Start Date 06/14/2015 Inactive Apidra SoloStar 100 unit/mL Sub-Q Insulin Pen RxNorm: 895323 Unit(s) SQ Sliding Sc supriya B No Start Date 06/12/2012 Inactive Levemir FlexTouch U- 100 Insulin 100 unit/mL (3 mL) subcutaneous pen RxNorm: 664027 70 Unit(s) SQ BID No Start Date 02/06/2018 Inactive Pen Needle 31 X 5/16" RxNorm: Miscellaneous No Start Date 08/23/2013 Inactive Synthroid 50 mcg Tab RxNorm: 515918 1 Tablet(s) PO QD No Start Date 09/11/2011 Inactive Levemir Flexpen 100 unit/mL (3 mL) Sub-Q Insulin Pen RxNorm: 972946 70 Unit(s) SQ QHS No Start Date 07/29/2012 Inactive Levemir FlexTouch U- 100 Insulin 100 unit/mL (3 mL) subcutaneous pen RxNorm: 467772 80 Unit(s) SQ BID No Start Date 02/14/2018 Inactive Levemir FlexTouch 10 0 unit/mL (3 mL) subcutaneous insulin pen RxNorm: 578563 80 Unit(s) SQ QPM No Start Date 09/04/2016 Inactive Lipitor 40 mg tablet RxNorm: 986042 1 Tablet(s) PO QD No Start Date 04/04/2017 Inactive Ultram 50 mg tablet RxNorm: 851650 2 Tablet(s) PO TID as needed for pain No Start Date 06/10/2015 Inactive Prograf 1 mg Cap RxNorm: 996523 2 Capsule(s) PO BID No Start Date 05/20/2012 Inactive insulin needles (dis posable) 32 x 5/16" RxNorm: Miscellaneous for use with flex pen No Start Date 04/04/2017 Inactive Levemir FlexTouch U- 100 Insulin 100 unit/mL (3 mL) subcutaneous pen RxNorm: 606401 90 Unit(s) SQ BID No Start Date 07/05/2018 Inactive Levemir Flexpen 100 unit/mL (3 mL) Sub-Q Insulin Pen RxNorm: 687101 65 Unit(s) SQ QD No Start Date 06/12/2012 Inactive Zithromax Z-Mateus 250 mg Tab RxNorm: 388930 Tablet(s) PO No Start Date 06/13/2011 Inactive as directed Lipitor 20 mg Tab RxNorm: 552271 1 Tablet(s) PO QD No Start Date [...] Code Item Item Code Result Date MAGNESIUM 08664 MAGNESIUM 1.4 mEq/L 02/19/2019 GFR CALC 6448557 GFR Non Afr Amr 37 mL/min 02/19/2019 GFR CALC 1159657 GFR Afr Amr 45 mL/min 02/19/2019 COMPREHENSIVE METABOLIC 32594 AST 20 U/L 02/19/2019 COMPREHENSIVE METABOLIC 72515 ALT 30 U/L 02/19/2019 COMPREHENSIVE METABOLIC 75991 BUN 27 mg/dL 02/19/2019 COMPREHENSIVE METABOLIC 69795 ALBUMIN 3.7 g/dL 02/19/2019 COMPREHENSIVE METABOLIC 16668 CHLORIDE 105 mmol/L 02/19/2019 COMPREHENSIVE METABOLIC 97620 Bili Total 0.5 mg/dL 02/19/2019 COMPREHENSIVE METABOLIC 34760 ALK PHOS 79 U/L 02/19/2019 COMPREHENSIVE METABOLIC 76557 SODIUM 137 mmol/L 02/19/2019 COMPREHENSIVE METABOLIC 14945 CREATININE 2.10 mg/dL 02/19/2019 COMPREHENSIVE METABOLIC 24966 CALCIUM 9.5 mg/dL 02/19/2019 COMPREHENSIVE METABOLIC 61097 POTASSIUM 4.2 mmol/L 02/19/2019 COMPREHENSIVE METABOLIC 85897 Total Protein 6.5 g/dL 02/19/2019 COMPREHENSIVE METABOLIC 44786 Glucose 202 mg/dL 02/19/2019 COMPREHENSIVE METABOLIC 53129 Bicarbonate 22 mmol/L 02/19/2019 COMPREHENSIVE METABOLIC 95067 AGAP 10 mmol/L 02/19/2019 LIPID GROUP 16646 Choles terol 320 mg/dL 08/27/2018 LIPID GROUP 48381 Trigly ceride 444 mg/dL 08/27/2018 LIPID GROUP 05234 HDL CH OLESTEROL 39 mg/dL 08/27/2018 LIPID GROUP 34178 Chol/H DL Ratio 8.21 ratio 08/27/2018 LIPID GROUP 82963 NON-HD L Chol 281 mg/dL 08/27/2018 LIPID GROUP 63814 LDL Ch olesterol N/A Trig >400 019 LIPID GROUP 97602 Fasting Unknown 08/27/2018 PHOSPHORUS 7688719 PHOSP HORUS 2.1 mg/dL 08/24/2018 PROTEIN/CREAT URINE WITH RATIO 40831|89997 U Protein 515 mg/dL 08/24/2018 PROTEIN/CREAT URINE WITH RATIO 68103|79854 U Creatinine 116 mg/dL 08/24/2018 PROTEIN/CREAT URINE WITH RATIO 21510|82723 Prot:Creat Rat 4440 mg/g 08/24/2018 MAGNESIUM 26248 MAGNESIUM 1.4 mEq/L 08/24/2018 GFR CALC 6752924 GFR Non Afr Amr 44 mL/min 08/24/2018 GFR CALC 0146429 GFR Afr Amr 53 mL/min 08/24/2018 [place] [address] Glucose TNP:Unknown Cancel Reason 08/24/2018 [place] [address] CREATININE TNP:Unknown Cancel Reason 08/24/2018 [place] [address] BUN TNP:Unknown Cancel Reason 08/24/2018 [place] [address] SODIUM TNP:Unknown Cancel Reason 08/24/2018 [place] [address] POTASSIUM TNP:Unknown Cancel Reason 08/24/2018 [place] [address] CHLORIDE TNP:Unknown Cancel Reason 08/24/2018 [place] [address] Bicarbonate TNP:Unknown Cancel Reason 08/24/2018 [place] [address] AGAP TNP:Unknown Cancel Reason 08/24/2018 [place] [address] CALCIUM TNP:Unknown Cancel Reason 08/24/2018 COMPREHENSIVE METABOLIC 06758 AST 21 U/L 08/24/2018 COMPREHENSIVE METABOLIC 07342 ALT 35 U/L 08/24/2018 COMPREHENSIVE METABOLIC 07929 BUN 25 mg/dL 08/24/2018 COMPREHENSIVE METABOLIC 32744 ALBUMIN 4.5 g/dL 08/24/2018 COMPREHENSIVE METABOLIC 39764 CHLORIDE 106 mmol/L 08/24/2018 COMPREHENSIVE METABOLIC 19720 Bili Total 0.4 mg/dL 08/24/2018 COMPREHENSIVE METABOLIC 84892 ALK PHOS 64 U/L 08/24/2018 COMPREHENSIVE METABOLIC 29434 SODIUM 141 mmol/L 08/24/2018 COMPREHENSIVE METABOLIC 96043 CREATININE 1.81 mg/dL 08/24/2018 COMPREHENSIVE METABOLIC 25728 CALCIUM 10.3 mg/dL 08/24/2018 COMPREHENSIVE METABOLIC 39130 POTASSIUM 3.4 mmol/L 08/24/2018 COMPREHENSIVE METABOLIC 88875 Total Protein 7.2 g/dL 08/24/2018 COMPREHENSIVE METABOLIC 31841 Glucose 101 mg/dL 08/24/2018 COMPREHENSIVE METABOLIC 97378 Bicarbonate 23 mmol/L 08/24/2018 COMPREHENSIVE METABOLIC 78737 AGAP 12 mmol/L 08/24/2018 UA W/MICR 05745 UA Urine Appear Normal 08/24/2018 UA W/MICR 82074 UA Prote in 3+ 08/24/2018 UA W/MICR 55150 UA Hemog lobin Trace 08/24/2018 UA W/MICR 14721 UA Gluco se 3+ 08/24/2018 UA W/MICR 52944 UA [place] es Negative 08/24/2018 UA W/MICR 44521 UA pH 6.0 08/24/2018 UA W/MICR 48298 U Spec G ravity 1.025 08/24/2018 UA W/MICR 50761 UA Bilir ubin Negative 08/24/2018 UA W/MICR 99358 UA Leuk Esteras Negative 08/24/2018 UA W/MICR 70260 UA Nitri te NEG 08/24/2018 UA W/MICR 20161 UA WBC/h pf 1 08/24/2018 UA W/MICR 22221 UA RBC a uto 12.9 /uL 08/24/2018 UA W/MICR 77164 UA RBC h pf 2 08/24/2018 UA W/MICR 89016 UA WBC a uto 5.9 /uL 08/24/2018 UA W/MICR 74048 UA SQ EP I auto 5.2 /uL 08/24/2018 UA W/MICR 81958 UA H Jamil t auto 0.10 /uL 08/24/2018 PROGRAF 9619534 Prograf 7.3 ng/mL 08/24/2018 MICROALBUMIN URINE RANDOM 62125 U Microalbumin 3485.2 mg/L 08/24/2018 MICROALBUMIN URINE RANDOM 38184 U Creatinine 116 mg/dL 08/24/2018 MICROALBUMIN URINE RANDOM 76998 ALB/CR Ratio 3004.5 mg/gCR 08/25/19 19 GLYCOSYLATED HEMOGLOBIN TEST 66817 Hgb A1c 00891-6 13.3 % 9 MEAN GLUC 7005439 Calc M sherron Gluc 335 mg/dL 06/29/2018 COMPREHENSIVE METABOLIC 51471 AST 17 U/L 02/06/2018 COMPREHENSIVE METABOLIC 79455 ALT 24 U/L 02/06/2018 COMPREHENSIVE METABOLIC 96470 BUN 24 mg/dL 02/06/2018 COMPREHENSIVE METABOLIC 26900 ALBUMIN 3.9 g/dL 02/06/2018 COMPREHENSIVE METABOLIC 94740 CHLORIDE 108 mmol/L 02/06/2018 COMPREHENSIVE METABOLIC 92008 Bili Total 0.6 mg/dL 02/06/2018 COMPREHENSIVE METABOLIC 15468 ALK PHOS 67 U/L 02/06/2018 COMPREHENSIVE METABOLIC 81987 SODIUM 140 mmol/L 02/06/2018 COMPREHENSIVE METABOLIC 53872 CREATININE 1.75 mg/dL 02/06/2018 COMPREHENSIVE METABOLIC 19269 CALCIUM 9.6 mg/dL 02/06/2018 COMPREHENSIVE METABOLIC 27621 POTASSIUM 3.8 mmol/L 02/06/2018 COMPREHENSIVE METABOLIC 73957 Total Protein 7.1 g/dL 02/06/2018 COMPREHENSIVE METABOLIC 19943 Glucose 62 mg/dL 02/06/2018 COMPREHENSIVE METABOLIC 14760 Bicarbonate 23 mmol/L 02/06/2018 COMPREHENSIVE METABOLIC 04643 AGAP 9 mmol/L 02/06/2018 GLYCOSYLATED HEMOGLOBIN TEST 44471 Hgb A1c 73755-1 13.0 % 8 GFR CALC 6119978 GFR Non Afr Amr 46 mL/min 02/06/2018 GFR CALC 0314299 GFR Afr Amr 55 mL/min 02/06/2018 MICROALBUMIN URINE RANDOM 76712 U Microalbumin 669.0 mg/L 02/06/2018 MICROALBUMIN URINE RANDOM 75116 U Creatinine 92 mg/dL 02/06/2018 MICROALBUMIN URINE RANDOM 38214 ALB/CR Ratio 727.2 mg/gCR 8 MEAN GLUC Calc M sherron Gluc 326 mg/dL 02/06/2018 GLYCOSYLATED HEMOGLOBIN TEST 56181 Hgb A1c 67804-6 14.3 % 6 THYROID STIMULATING HORMONE 27293 TSH 1.909 uIU/mL 6 MAGNESIUM 80369 MAGNESIUM 1.5 mEq/L 12/03/2015 GFR CALC 4702607 GFR Non Afr Amr 39 mL/min 12/03/2015 GFR CALC 4576816 GFR Afr Amr 48 mL/min 12/03/2015 MEAN GLUC Mean G lucose 364 mg/dL 12/03/2015 COMPREHENSIVE METABOLIC 34468 AST 34 U/L 12/03/2015 COMPREHENSIVE METABOLIC 15140 ALT 78 U/L 12/03/2015 COMPREHENSIVE METABOLIC 37203 BUN 29 mg/dL 12/03/2015 COMPREHENSIVE METABOLIC 87121 ALBUMIN 4.3 g/dL 12/03/2015 COMPREHENSIVE METABOLIC 28226 CHLORIDE 93 mmol/L 12/03/2015 COMPREHENSIVE METABOLIC 15230 Bili Total 0.7 mg/dL 12/03/2015 COMPREHENSIVE METABOLIC 93092 ALK PHOS 83 U/L 12/03/2015 COMPREHENSIVE METABOLIC 93467 SODIUM 125 mmol/L 12/03/2015 COMPREHENSIVE METABOLIC 84729 CREATININE 2.01 mg/dL 12/03/2015 COMPREHENSIVE METABOLIC 64774 CALCIUM 9.8 mg/dL 12/03/2015 COMPREHENSIVE METABOLIC 78729 POTASSIUM 4.3 mmol/L 12/03/2015 COMPREHENSIVE METABOLIC 72570 Total Protein 7.3 g/dL 12/03/2015 COMPREHENSIVE METABOLIC 52543 Glucose 542 mg/dL 12/03/2015 COMPREHENSIVE METABOLIC 31280 Bicarbonate 23 mmol/L 12/03/2015 COMPREHENSIVE METABOLIC 93673 AGAP 9 mmol/L 12/03/2015 COMPREHENSIVE METABOLIC 80240 AST 31 U/L 07/30/2013 COMPREHENSIVE METABOLIC 96743 ALT 52 IU/L 07/30/2013 COMPREHENSIVE METABOLIC 52898 BUN 26 MG/DL 07/30/2013 COMPREHENSIVE METABOLIC 40430 ALBUMIN 4.9 GM/DL 07/30/2013 COMPREHENSIVE METABOLIC 43650 CHLORIDE 108 MMOL/L 07/30/2013 COMPREHENSIVE METABOLIC 15006 BILI TOT 0.4 MG/DL 07/30/2013 COMPREHENSIVE METABOLIC 11845 ALK PHOS 68 U/L 07/30/2013 COMPREHENSIVE METABOLIC 10388 SODIUM 138 MMOL/L 07/30/2013 COMPREHENSIVE METABOLIC 96807 CREATININE 2.02 MG/DL 07/30/2013 COMPREHENSIVE METABOLIC 30181 CALCIUM 10.3 MG/DL 07/30/2013 COMPREHENSIVE METABOLIC 78504 POTASSIUM 5.0 MMOL/L 07/30/2013 COMPREHENSIVE METABOLIC 01647 PROT TOT 7.3 GM/DL 07/30/2013 COMPREHENSIVE METABOLIC 69477 Glucose 89 MG/DL 07/30/2013 COMPREHENSIVE METABOLIC 98481 BICARB 24 MMOL/L 07/30/2013 COMPREHENSIVE METABOLIC 11542 ANION GAP 6 MEQ/L 07/30/2013 GFR CALC 4640022 GFR AA 48.0L ML/MIN 07/30/2013 GFR CALC GFR NON -AA 40.0L ML/MIN 4 COMPLETE BLOOD COUNT 2603104 WBC 7.9 10e9/L 07/30/2013 COMPLETE BLOOD COUNT 6581127 RBC 4.94 10e12/L 4 COMPLETE BLOOD COUNT 3568072 HGB 14.0 g/dL 07/30/2013 COMPLETE BLOOD COUNT 8884310 HCT DET 41.5 % 07/30/2013 COMPLETE BLOOD COUNT 9648103 MCV 84.0 fL 07/30/2013 COMPLETE BLOOD COUNT 4228164 MCH 28.3 pg 07/30/2013 COMPLETE BLOOD COUNT 7483615 MCHC 33.7 g/dL 07/30/2013 COMPLETE BLOOD COUNT 6670716 PLT 176 10e9/L 07/30/2013 COMPLETE BLOOD COUNT 9606677 MPV 11.8 fL 07/30/2013 COMPLETE BLOOD COUNT 5461521 CLAYTON % 75.4 % 07/30/2013 COMPLETE BLOOD COUNT 6876496 LY % 13.7 % 07/30/2013 COMPLETE BLOOD COUNT 3497972 MON % 8.9 % 07/30/2013 COMPLETE BLOOD COUNT 4418663 EOS % 1.7 % 07/30/2013 COMPLETE BLOOD COUNT 5135364 BASO % 0.3 % 07/30/2013 COMPLETE BLOOD COUNT 6980554 RDW 13.4 % 07/30/2013 COMPLETE BLOOD COUNT 5863870 ABS CLAYTON 5.96 10e9/L 07/30/2013 COMPLETE BLOOD COUNT 2735824 ABS LYMPH 1.08 10e9/L 07/30/2013 COMPLETE BLOOD COUNT 6107190 ABS MONO 0.70 10e9/L 07/30/2013 COMPLETE BLOOD COUNT 0771172 ABS EOS 0.13 10e9/L 07/30/2013 COMPLETE BLOOD COUNT 3580692 ABS BASO 0.02 10e9/L 07/30/2013 COMPLETE BLOOD COUNT 2119399 RDW-SD 40.2 fL 07/30/2013 C-REACTIVE PROTEIN (CRP) QUANT 68737 CRP 0.2 MG/DL 07/30/2013 CANCEL 7818054 CANCEL FOOTNOTE 05/23/2012 PEND CHEM PEND C HEM FOOTNOTE 05/22/2012 COMPREHENSIVE METABOLIC 64221 AST 61 U/L 05/21/2012 COMPREHENSIVE METABOLIC 12896 ALT 106 U/L 05/21/2012 COMPREHENSIVE METABOLIC 80576 BUN 33 MG/DL 05/21/2012 COMPREHENSIVE METABOLIC 45650 ALBUMIN 5.0 GM/DL 05/21/2012 COMPREHENSIVE METABOLIC 65995 CHLORIDE 89 MMOL/L 05/21/2012 COMPREHENSIVE METABOLIC 13881 BILI TOT 0.6 MG/DL 05/21/2012 COMPREHENSIVE METABOLIC 02049 ALK PHOS 129 U/L 05/21/2012 COMPREHENSIVE METABOLIC 47901 SODIUM 120 MMOL/L 05/21/2012 COMPREHENSIVE METABOLIC 94646 CREATININE 2.23 MG/DL 05/21/2012 COMPREHENSIVE METABOLIC 17203 CALCIUM 9.8 MG/DL 05/21/2012 COMPREHENSIVE METABOLIC 13016 POTASSIUM 5.3 MMOL/L 05/21/2012 COMPREHENSIVE METABOLIC 98156 PROT TOT 7.8 GM/DL 05/21/2012 COMPREHENSIVE METABOLIC 77182 Glucose 789 MG/DL 05/21/2012 COMPREHENSIVE METABOLIC 58084 BICARB 20 MMOL/L 05/21/2012 COMPREHENSIVE METABOLIC 88660 ANION GAP 11 MMOL/L 05/21/2012 GFR CALC 9095436 GFR AA 43.0L ML/MIN 05/21/2012 GFR CALC 6807116 GFR NON -AA 36.0L ML/MIN 2 THYROID STIMULATING HORMONE 07970 TSH 1.499 uIU/ML 1 FREE T4 68001 FREE T4 1.15 NG/DL 01/27/2011 Review of [...] Procedures Procedure Codes Date ROUTINE VENIPUNCTURE CPT-4: 77148 02/19/2019 METABOLIC PANEL TOTA L CA CPT-4: 75250 02/19/2019 MICROALBUMIN, QUANTI TATIVE CPT-4: 83980 02/19/2019 LIPID PANEL CPT-4: 89229 02/19/2019 COMPREHEN METABOLIC PANEL CPT-4: 39934 02/19/2019 ASSAY OF MAGNESIUM CPT- 4: 65463 02/19/2019 METABOLIC PANEL TOTA L CA CPT-4: 43418 08/24/2018 COMPREHEN METABOLIC PANEL CPT-4: 46374 08/24/2018 ASSAY OF MAGNESIUM CPT- 4: 73429 08/24/2018 MICROALBUMIN QUANTIT ATIVE CPT-4: 90014 08/24/2018 PROTEIN/CREAT URINE WITH RATIO CPT-4: 70878|75702 08/24/2018 PHOSPHORUS CPT-4: 4557211 08/24/2018 LIPID PANEL CPT-4: 16091 08/24/2018 ROUTINE VENIPUNCTURE CPT-4: 01520 06/29/2018 A1C HPLC CPT-4: 35851 06/29/2018 URINALYSIS NONAUTO W /O SCOPE CPT-4: 47796 02/06/2018 URINE CULTURE/ COLON Y COUNT CPT-4: 93454 02/06/2018 MICROALBUMIN QUANTIT ATIVE CPT-4: 26433 02/06/2018 ROUTINE VENIPUNCTURE CPT-4: 26645 02/06/2018 COMPREHEN METABOLIC PANEL CPT-4: 81228 02/06/2018 A1C HPLC CPT-4: 52386 02/06/2018 ROUTINE VENIPUNCTURE CPT-4: 42129 11/02/2017 COMPREHEN METABOLIC PANEL CPT-4: 35583 11/02/2017 A1C HPLC CPT-4: 92216 11/02/2017 TDAP VACCINE 7 YRS/> IM CPT-4: 45926 07/27/2017 IMMUNIZATION ADMIN CPT- 4: 79921 07/27/2017 URINALYSIS NONAUTO W /O SCOPE CPT-4: 57569 02/16/2016 URINE CULTURE/ COLON Y COUNT CPT-4: 39704 02/16/2016 PRESCRIP TRANSMIT A ERX SY CPT-4: G8553 02/16/2016 ROUTINE VENIPUNCTURE CPT-4: 77878 12/03/2015 ASSAY THYROID STIM H ORMONE CPT-4: 42855 12/03/2015 COMPREHEN METABOLIC PANEL CPT-4: 90728 12/03/2015 A1C HPLC CPT-4: 07996 12/03/2015 ASSAY OF MAGNESIUM CPT- 4: 17164 12/03/2015 URINALYSIS NONAUTO W /O SCOPE CPT-4: 06343 12/03/2015 URINE CULTURE/ COLON Y COUNT CPT-4: 56519 12/03/2015 URINALYSIS NONAUTO W /O SCOPE CPT-4: 03217 07/30/2013 URINE CULTURE/ COLON Y COUNT CPT-4: 99484 07/30/2013 ROUTINE VENIPUNCTURE CPT-4: 79299 07/30/2013 COMPLETE CBC W/AUTO DIFF WBC CPT-4: 18218 07/30/2013 COMPREHEN METABOLIC PANEL CPT-4: 47637 07/30/2013 C-REACTIVE PROTEIN CPT- 4: 42134 07/30/2013 ROUTINE VENIPUNCTURE CPT-4: 72805 08/20/2012 ASSAY OF FREE THYROXINE CPT-4: 63170 08/20/2012 ASSAY THYROID STIM H ORMONE CPT-4: 63757 08/20/2012 COMPREHEN METABOLIC PANEL CPT-4: 74833 08/20/2012 COMPLETE CBC W/AUTO DIFF WBC CPT-4: 91034 08/20/2012 LIPID PANEL CPT-4: 71144 08/20/2012 A1C GLYCOSYLATED HEM OGLOBIN TEST CPT-4: 32045 08/20/2012 ASSAY, GLUCOSE, BLOO D QUANT CPT-4: 57116 06/21/2012 ASSAY, GLUCOSE, BLOO D QUANT CPT-4: 44661 05/21/2012 ROUTINE VENIPUNCTURE CPT-4: 29444 05/21/2012 COMPREHEN METABOLIC PANEL CPT-4: 97568 05/21/2012 A1C GLYCOSYLATED HEM OGLOBIN TEST CPT-4: 17426 05/21/2012 CURRENT [employer] USER CPT-4: G8456 06/14/2011 PT VIS DOC USE EHR C ER ATCB CPT-4: G8447 06/14/2011 PRESCRIP TRANSMIT A ERX SY CPT-4: G8553 06/14/2011 PT VIS DOC USE EHR C ER ATCB CPT-4: G8447 03/03/2011 PRESCRIP TRANSMIT A ERX SY CPT-4: G8553 03/03/2011 ROUTINE VENIPUNCTURE CPT-4: 01693 01/27/2011 ASSAY OF FREE THYROXINE CPT-4: 57119 01/27/2011 ASSAY THYROID STIM H ORMONE CPT-4: 71628 01/27/2011 PT VIS DOC USE EHR C [...] 1: 158/90 Code: 8480-6 BMI: 34.3 Code: 18792-6 Heart Rate 1: 78 bpm Height: 6'1" Respiratory Rate: 20 bpm SpO2: 98% Temperature: 36.6 (C ) / 97.8 (F) Weight: 260 lbs 11/02/2017 Blood Pressure 1: 134/92 Code: 8480-6 BMI: 32.3 Code: 37911-3 Heart Rate 1: 72 bpm Height: 6'1" SpO2: 98% Temperature: 36.4 (C ) / 97.5 (F) Weight: 245 lbs 07/27/2017 Blood Pressure 1: 136/64 Code: 8480-6 BMI: 30.9 Code: 49263-6 Heart Rate 1: 78 bpm Height: 6'1" Respiratory Rate: 22 bpm SpO2: 98% Temperature: 36.4 (C ) / 97.6 (F) Weight: 234 lbs 04/05/2017 Blood Pressure 1: 126/90 Code: 8480-6 BMI: 33.5 Code: 57116-1 Heart Rate 1: 76 bpm Height: 6'1" Respiratory Rate: 20 bpm SpO2: 97% Temperature: 37.0 (C ) / 98.6 (F) Weight: 254 lbs 06/20/2016 Blood Pressure 1: 122/74 Code: 8480-6 BMI: 35.2 Code: 35402-5 Heart Rate 1: 80 bpm Height: 6'1" Respiratory Rate: 20 bpm SpO2: 97% Temperature: 36.9 (C ) / 98.5 (F) Weight: 267 lbs 02/16/2016 Blood Pressure 1: 136/82 Code: 8480-6 BMI: 36.4 Code: 43104-1 Heart Rate 1: 66 bpm Height: 6'1" Respiratory Rate: 18 bpm SpO2: 96% Temperature: 36.4 (C ) / 97.6 (F) Weight: 276 lbs 12/03/2015 Blood Pressure 1: 122/86 Code: 8480-6 BMI: 39.2 Code: 93621-4 Heart Rate 1: 76 bpm Height: 6' Respiratory Rate: 20 bpm Temperature: 37.1 (C ) / 98.7 (F) Weight: 289 lbs 06/24/2015 Blood Pressure 1: 136/84 Code: 8480-6 BMI: 40.7 Code: 02888-8 Heart Rate 1: 84 bpm Height: 6' Respiratory Rate: 20 bpm Temperature: 36.9 (C ) / 98.4 (F) Weight: 300 lbs 06/11/2015 Blood Pressure 1: 160/82 Code: 8480-6 BMI: 40.4 Code: 76527-1 Heart Rate 1: 82 bpm Height: 6' Respiratory Rate: 22 bpm Temperature: 36.5 (C ) / 97.7 (F) Weight: 298 lbs 07/17/2014 Blood Pressure 1: 132/84 Code: 8480-6 BMI: 41.0 Code: 41359-9 Heart Rate 1: 76 bpm Height: 6'1" Respiratory Rate: 20 bpm Temperature: 36.9 (C ) / 98.4 (F) Weight: 311 lbs 10/31/2013 Blood Pressure 1: 132/80 Code: 8480-6 BMI: 41.2 Code: 09635-3 Heart Rate 1: 84 bpm Height: 6'1" Respiratory Rate: 22 bpm Temperature: 36.1 (C ) / 97.0 (F) Weight: 312 lbs 08/01/2013 Blood Pressure 1: 142/86 Code: 8480-6 BMI: 42.4 Code: 32742-8 Heart Rate 1: 84 bpm Height: 6' [...] 1: 156/108 Code: 8480-6 BMI: 41.9 Code: 64348-6 Heart Rate 1: 92 bpm Height: 6' Respiratory Rate: 20 bpm Temperature: 36.9 (C ) / 98.4 (F) Weight: 309 lbs 02/27/2013 Blood Pressure 1: 162/114 Code: 8480-6 BMI: 41.0 Code: 37558-0 Heart Rate 1: 84 bpm Height: 6' Respiratory Rate: 20 bpm Temperature: 36.7 (C ) / 98.0 (F) Weight: 302 lbs 01/01/2013 Blood Pressure 1: 138/86 Code: 8480-6 BMI: 41.0 Code: 34362-4 Heart Rate 1: 76 bpm Height: 6' Respiratory Rate: 20 bpm Temperature: 36.7 (C ) / 98.0 (F) Weight: 302 lbs 11/27/2012 Blood Pressure 1: 136/92 Code: 8480-6 BMI: 41.2 Code: 99638-7 Heart Rate 1: 80 bpm Height: 6' Respiratory Rate: 20 bpm Temperature: 36.6 (C ) / 97.8 (F) Weight: 304 lbs 08/28/2012 Blood Pressure 1: 126/80 Code: 8480-6 BMI: 41.8 Code: 71675-3 Heart Rate 1: 80 bpm Height: 6' Respiratory Rate: 20 bpm Temperature: 36.4 (C ) / 97.6 (F) Weight: 308 lbs 07/03/2012 Blood Pressure 1: 114/80 Code: 8480-6 BMI: 42.3 Code: 62031-7 Heart Rate 1: 72 bpm Height: 6' Respiratory Rate: 20 bpm Temperature: 36.6 (C ) / 97.9 (F) Weight: 312 lbs 06/21/2012 Blood Pressure 1: 152/100 Code: 8480-6 BMI: 43.3 Code: 47619-5 Heart Rate 1: 72 bpm Height: 6' Temperature: 36.8 (C ) / 98.2 (F) Weight: 319 lbs 05/30/2012 Blood Pressure 1: 122/78 Code: 8480-6 BMI: 43.0 Code: 51941-3 Heart Rate 1: 72 bpm Height: 6' Respiratory Rate: 20 bpm Temperature: 36.7 (C ) / 98.0 (F) Weight: 317 lbs 05/21/2012 Blood Pressure 1: 126/94 Code: 8480-6 BMI: 44.2 Code: 17814-9 Heart Rate 1: 92 bpm Height: 6' Respiratory Rate: 20 bpm Temperature: 36.6 (C ) / 97.9 (F) Weight: 326 lbs 01/24/2012 Blood Pressure 1: 122/90 Code: 8480-6 BMI: 44.5 Code: 15926-3 Heart Rate 1: 76 bpm Height: 6' Respiratory Rate: 20 bpm Temperature: 36.8 (C ) / 98.2 (F) Weight: 328 lbs 09/21/2011 Blood Pressure 1: 116/80 Code: 8480-6 BMI: 44.1 Code: 68786-3 Heart Rate 1: 92 bpm Height: 6' Respiratory Rate: 20 bpm Temperature: 36.7 (C ) / 98.1 (F) Weight: 325 lbs 09/12/2011 Blood Pressure 1: 166/110 Code: 8480-6 BMI: 45.0 Code: 87729-8 Heart Rate 1: 80 bpm Height: 6' Respiratory Rate: 20 bpm Temperature: 36.5 (C ) / 97.7 (F) Weight: 332 lbs 06/14/2011 Blood Pressure 1: 142/84 Code: 8480-6 BMI: 45.6 Code: 85341-3 Heart Rate 1: 104 bpm Height: 6' Respiratory Rate: 20 bpm Temperature: 36.4 (C ) / 97.5 (F) Weight: 336 lbs 03/03/2011 Blood Pressure 1: 130/96 Code: 8480-6 Heart Rate 1: 86 bpm Temperature: 36.1 (C) / 97.0 (F) Weight: 327 lbs 01/27/2011 Blood Pressure 1: 142/96 Code: 8480-6 BMI: 42.0 Code: 09959-8 Heart Rate 1: 72 bpm Height: 6'2" [...] Resolution ongoing 06/21/2012 been out of [facility] didn't have diabetes mellitus Blood [...] Encounters Encounter Performer Loca tion Codes Date ([id number]) NURSE/OUTPAT IENT VISIT EST Diagnosis: 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, 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] Diagnosis: Essential (primary) hypertension[ICD10: I10] Diagnosis: Other specified hypothyroidism[ICD10: E03.8] Diagnosis: Mixed hyperlipidemia[ICD10: E78.2] Galina ROD [facility] CPT-4: 59443 02/19/2019 ([id number]) NURSE/OUTPAT IENT VISIT EST Diagnosis: Kidney transplant status[ICD10: Z94.0] 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] Diagnosis: Other fci (current) drug therapy[ICD10: Z79.899] Diagnosis: Encounter for aftercare following other organ transplant[ICD10: Z48.298] Diagnosis: Mixed hyperlipidemia[ICD10: E78.2] Galina ROD [email or web address] [facility] CPT-4: 72196 08/24/2018 ([id number]) NURSE/OUTPAT IENT VISIT EST Diagnosis: Type 2 diabetes mellitus with diabetic neuropathy, unspecified[ICD10: E11.40] Diagnosis: Type 2 diabetes mellitus with hyperglycemia[ICD10: E11.65] 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] Diagnosis: Essential (primary) hypertension[ICD10: I10] Galina ARTEAGA I[facility] CPT-4: 49624 06/29/2018 ([id number]) OFFICE/OUTPA TIENT VISIT EST Diagnosis: Slow transit constipation[ICD10: K59.01] Diagnosis: Epigastric pain[ICD10: R10.13] Diagnosis: Type 2 diabetes mellitus with hyperglycemia[ICD10: E11.65] Coleen SMITH DO [employer] CPT-4: 11249 06/26/2018 ([id number]) OFFICE/OUTPA TIENT VISIT EST Diagnosis: Right lower quadrant pain[ICD10: R10.31] Diagnosis: Type 2 diabetes mellitus with diabetic neuropathy, unspecified[ICD10: E11.40] Coleen SMITH DO [employer] CPT-4: 89335 02/06/2018 ([id number]) OFFICE/OUTPA TIENT VISIT EST Diagnosis: Type 2 diabetes mellitus with hyperglycemia[ICD10: E11.65] Diagnosis: Mixed hyperlipidemia[ICD10: E78.2] Diagnosis: Essential (primary) hypertension[ICD10: I10] Coleen CHENEY IEV CPT-4: 53746 11/02/2017 ([id number]) PREV VISIT E ST AGE 18-39 Diagnosis: Encounter for general adult medical examination with abnormal findings[ICD10: Z00.01] Diagnosis: Abrasion of right hand, initial encounter[ICD10: S60.511A] 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] Coleen SMITH I[facility] CPT-4: 69709 07/27/2017 OFFICE/OUTPATIENT SIT EST 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] Diagnosis: Tinea pedis[ICD10: B35.3] Coleen SMITH DO [employer] CPT-4: 68142 04/05/2017 ([id number]) OFFICE/OUTPA TIENT VISIT EST Diagnosis: DM W/O COMPLICATION TYPE I, 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] Diagnosis: Mixed hyperlipidemia[ICD10: E78.2] Diagnosis: Essential (primary) hypertension[ICD10: I10] Galina ARTEAGA [facility] CPT-4: 63278 06/20/2016 ([id number]) OFFICE/OUTPA TIENT VISIT EST Diagnosis: Urinary tract infection, site not specified[ICD10: N39.0] Missy SMITH [facility] CPT-4: 81702 02/16/2016 ([id number]) OFFICE/OUTPA TIENT VISIT EST Diagnosis: Type 2 diabetes mellitus with hyperglycemia[ICD10: E11.65] Diagnosis: Cramp and spasm[ICD10: R25.2] Diagnosis: Hematuria, unspecified[ICD10: R31.9] Galina ARTEAGA [facility] CPT-4: 35957 12/03/2015 OFFICE/OUTPATIENT SIT EST Diagnosis: Type 2 diabetes mellitus with diabetic neuropathy, unspecified[ICD10: E11.40] Alejandra Billy GALINA SMITH [facility] CPT-4: 91449 06/24/2015 ([id number]) OFFICE/OUTPA TIENT VISIT EST Diagnosis: Acute sinusitis, unspecified[ICD10: J01.90] Diagnosis: Otitis media, unspecified, bilateral[ICD10: H66.93] Galina ARTEAGA [facility] CPT-4: 45619 06/11/2015 ([id number]) OFFICE/OUTPA TIENT VISIT EST Diagnosis: DM W/O COMPLICATION TYPE I[ICD9: 250.01] Diagnosis: HYPERTENSION[ICD9: 401.9] Diagnosis: HYPERLIPIDEMIA NEC/NOS[ICD9: 272.4] Diagnosis: KIDNEY TRANSPLANT STATUS[ICD9: V42.0] Galina ARTEAGA [employer] [facility] CPT-4: 17600 07/17/2014 ([id number]) OFFICE/OUTPA TIENT VISIT EST Diagnosis: DM W/O COMPLICATION TYPE I[ICD9: 250.01] Diagnosis: HYPERTENSION[ICD9: 401.9] Galina SMITH [facility] CPT-4: 81267 10/31/2013 ([id number]) OFFICE/OUTPA TIENT VISIT EST Diagnosis: DM W/O COMPLICATION TYPE II[ICD9: 250.00] Diagnosis: HYPERTENSION[ICD9: 401.9] Diagnosis: HYPERLIPIDEMIA NEC/NOS[ICD9: 272.4] Galina ROD NDER [facility] CPT-4: 98161 08/01/2013 OFFICE/OUTPATIENT SIT EST Diagnosis: HEMATURIA NOS[ICD9: 599.70] Diagnosis: Abdominal pain, acute, right lower quadrant[ICD9: 789.03] Diagnosis: KIDNEY TRANSPLANT STATUS[ICD9: V42.0] Alejandra GuptaMargaritashannan Weems [facility] CPT-4: 00815 07/30/2013 ([id number]) OFFICE/OUTPA TIENT VISIT EST Diagnosis: Uncontrolled hypertension[ICD9: 401.9] Diagnosis: BRIEF DEPRESSIVE REACT[ICD9: 309.0] Galina ROD [facility] CPT-4: 57522 05/30/2013 ([id number]) OFFICE/OUTPA TIENT VISIT EST Diagnosis: HYPERTENSION[ICD9: 401.9] Diagnosis: Anticipatory grieving[ICD9: 309.0] Galina ROD [facility] CPT-4: 46189 04/29/2013 ([id number]) OFFICE/OUTPA TIENT VISIT EST Diagnosis: DM W/O COMPLICATION TYPE II, UNCONTROLLED[ICD9: 250.02] Diagnosis: HYPERTENSION[ICD9: 401.9] Diagnosis: HYPOTHYROIDISM[ICD9: 244.9] Diagnosis: KIDNEY TRANSPLANT STATUS[ICD9: V42.0] [facility] CPT-4: 48250 02/27/2013 OFFICE/OUTPATIENT SIT EST Diagnosis: Paronychia[ICD9: 681.9] Diagnosis: ONYCHOMYCOSIS[ICD9: 110.1] Viky Acosta [facility] CPT-[facility]: 26819 01/01/2013 ([id number]) OFFICE/OUTPA TIENT VISIT EST Diagnosis: DM W/O COMPLICATION TYPE II, UNCONTROLLED[ICD9: 250.02] Diagnosis: HYPERLIPIDEMIA NEC/NOS[ICD9: 272.4] Diagnosis: HYPERTENSION[ICD9: 401.9] Diagnosis: KIDNEY TRANSPLANT STATUS[ICD9: V42.0] Diagnosis: HYPOTHYROIDISM[ICD9: 244.9] Galina SMITH [facility] CPT-4: 18699 11/27/2012 ([id number]) OFFICE/OUTPA TIENT VISIT EST Diagnosis: DM W/O COMPLICATION TYPE II[ICD9: 250.00] Diagnosis: HYPOTHYROIDISM[ICD9: 244.9] Diagnosis: HYPERLIPIDEMIA NEC/NOS[ICD9: 272.4] Diagnosis: HYPERTENSION[ICD9: 401.9] Galina SMITH [facility] CPT-4: 19081 08/28/2012 ([id number]) OFFICE/OUTPA TIENT VISIT EST Diagnosis: HYPOTHYROIDISM[ICD9: 244.9] Diagnosis: DM W/O COMPLICATION TYPE II, UNCONTROLLED[ICD9: 250.02] Diagnosis: HYPERLIPIDEMIA NEC/NOS[ICD9: 272.4] Diagnosis: KIDNEY TRANSPLANT STATUS[ICD9: V42.0] Diagnosis: HYPERTENSION[ICD9: 401.9] Galina SMITH [facility] CPT-4: 72036 08/20/2012 OFFICE/OUTPATIENT SIT EST Diagnosis: DM W/O COMPLICATION TYPE II, UNCONTROLLED[ICD9: 250.02] Diagnosis: HYPERTENSION[ICD9: 401.9] Galina SMITH [facility] CPT-4: 95212 07/03/2012 OFFICE/OUTPATIENT SIT EST Diagnosis: DM W/O COMPLICATION TYPE II, UNCONTROLLED[ICD9: 250.02] Diagnosis: HYPERTENSION[ICD9: 401.9] Galina SMITH [facility] CPT-4: 75600 06/21/2012 OFFICE/OUTPATIENT SIT EST Diagnosis: DM W/O COMPLICATION TYPE II, UNCONTROLLED[ICD9: 250.02] Diagnosis: HYPERTENSION[ICD9: 401.9] Diagnosis: HYPERLIPIDEMIA NEC/NOS[ICD9: 272.4] Diagnosis: KIDNEY TRANSPLANT STATUS[ICD9: V42.0] Galina ARTEAGA [facility] CPT-4: 60963 05/30/2012 ([id number]) OFFICE/OUTPA TIENT VISIT EST Diagnosis: HYPERTENSION[ICD9: 401.9] Diagnosis: VISUAL DISTURBANCE[ICD9: 368.9] Galina SMITH [facility] CPT-4: 49185 05/21/2012 ([id number]) OFFICE/OUTPA TIENT VISIT EST Diagnosis: HYPERTENSION[ICD9: 401.9] Diagnosis: HYPOTHYROIDISM[ICD9: 244.9] Diagnosis: KIDNEY TRANSPLANT STATUS[ICD9: V42.0] Galina ARTEAGA DO [facility] CPT-4: 91390 01/24/2012 OFFICE/OUTPATIENT SIT EST Diagnosis: DIZZINESS/VERTIGO[ICD9: 780.4] Diagnosis: HYPERTENSION[ICD9: 401.9] Galina SMITH [facility] CPT-4: 18892 09/21/2011 ([id number]) OFFICE/OUTPA TIENT VISIT EST Diagnosis: HYPERTENSION[ICD9: 401.9] Diagnosis: HYPOTHYROIDISM[ICD9: 244.9] Diagnosis: HYPERLIPIDEMIA NEC/NOS[ICD9: 272.4] Diagnosis: KIDNEY TRANSPLANT STATUS[ICD9: V42.0] Galina ARTEAGA [facility] CPT-4: 83587 09/12/2011 OFFICE/OUTPATIENT SIT EST Diagnosis: HYPOTHYROIDISM[ICD9: 244.9] Diagnosis: HYPERTENSION[ICD9: 401.9] Diagnosis: CEPHALGIA[ICD9: 784.0] Galina SMITH [facility] CPT-4: 99195 06/14/2011 OFFICE/OUTPATIENT SIT EST Diagnosis: HYPERTENSION[ICD9: 401.9] Diagnosis: PHARYNGITIS, ACUTE[ICD9: 462] Diagnosis: HYPOTHYROIDISM[ICD9: 244.9] Galina SMITH [facility] CPT-4: 02247 03/03/2011 OFFICE/OUTPATIENT SIT EST Diagnosis: HYPOTHYROIDISM[ICD9: 244.9] Diagnosis: KIDNEY TRANSPLANT STATUS[ICD9: V42.0] Diagnosis: HYPERTENSION[ICD9: 401.9] Diagnosis: SINUSITIS, ACUTE[ICD9: 461.9] Galina SMITH [facility] CPT-4: 29308 01/27/2011 ([id number]) OFFICE/OUTPA TIENT VISIT EST Galina ARTEAGA [facility] CPT-4: 57611 12/02/2010 Plan of Care Planned Activity Notes C odes Status Date Appointment: Cucotorri Galina S. WPtel: [phone] [id number] US LAB 08/24/2018 Appointment: [facility] [phone] [id number] [facility] 06/29/2018 Visit Diagnosis Plan: Epigastric [...] he had labs done in dec at [facility]. will obtain lab results and order additional labs as needed. ICD-9 : 250.02 ICD-10 : E11.65 06/26/2018 Appointment: Coleen Frey [address] [place] [address] ACUTE ILLNESS 06/26/2018 Visit Diagnosis Plan: Type [...] ICD-10 : R10.31 02/06/2018 Appointment: Coleen Frey [address] [place], [place] [address] ACUTE ILLNESS 02/06/2018 Patient Education: Patient Medication [...] ICD-10 : E11.65 11/02/2017 Appointment: Coleen Frey [address] [place], [place] [id number] FOLLOW UP 11/02/2017 Patient Education: Patient Medication Summary Completed 11/02/2017 Visit Diagnosis Plan: Abrasion of right hand, initial encounter Discussion: keflex prescribed for infect ion. instructed patient to call or rtc next week if no improvement. keep area clean and dry. ICD-9 : 914.0 ICD-10 : S60.511A 07/27/2017 Visit Diagnosis Plan: Encounter for [facility] medical examination with abnormal findings Discussion: [...] : E11.59 07/27/2017 Appointment: Coleen Frey [address] [place], [place] [id number] [id number] Annual Well Visit 07/27/2017 Patient Education: Patient [...] ICD-10 : B35.3 04/05/2017 Appointment: Coleen Frey [address] [place], [place] [id number] FOLLOW UP 04/05/2017 Patient Education: Patient Medication Summary Completed 04/05/2017 Patient Education: Patient Medication Summary Completed 04/05/2017 Care Plan: CBC Pending 04/05/2017 Care Plan: LIPID PANEL LOINC : 98943-1 Pending 04/05/2017 Care Plan: COMPREHEN METABOLIC PANEL LOINC : 39129-1 Pending 04/05/2017 Visit Plan: Patient admits that [...] given 06/20/2016 App[facility]ment[id number] [facility]/16 lm-sp 06/20 lm ~sl FOLLOW UP 06/20/2016 Patient Education: Patient Medication Summary Completed 06/20/2016 Patient Education: Patient Medication Summary Completed 05/04/2016 Care Plan: COMPREHEN METABOLIC PANEL LOINC : 98873-1 Pending 05/04/2016 Care Plan: CBC Pending 05/04/2016 Care Plan: LIPID PANEL LOINC : 18673-4 Pending 05/04/2016 Care Plan: A1C HPLC LO INC : 22916-2 Pending 05/04/2016 Visit Plan: Discussed with Dr Norwood er Treatment as above while awaiting specialist to return his call Push fluids Follow up celine if not improving 02/16/2016 Visit Plan: Discussed with Dr Norwood er Treatment as above while awaiting specialist to return his call Push fluids Follow up celine if not improving 02/16/2016 Appointment: Missy Dc [address] [place] [address] ACUTE ILLNESS 02/16/2016 Patient Education: Patient Medication [...] as well 12/03/2015 Appointment: Galina Smith WPtel: [address] [place] [address] ACUTE ILLNESS 12/03/2015 Patient Education: Patient Medication Summary Completed 12/03/2015 Visit Plan: Labs completed this am in [facility] but do not have results yet. Start Lyrica 75mg PO bid Will Call in a week and let know if pain is improved. 06/24/2015 Visit Plan: Labs completed this am in [facility] but do not have results yet. Start Lyrica 75mg PO bid Will Call in a week and let know if pain is improved. 06/24/2015 Appointment: Alejandra Billy WPtel: [address] [place], [place] [id number] ACUTE ILLNESS 06/24/2015 Patient Education: Patient Medication Summary Completed 06/24/2015 Patient Education: Lyrica - 18+ - No MA NE Completed 06/24/2015 Visit Plan: Saline nasal flushes pr n. Tylenol/Motrin prn headache. Notify if persists/symptoms worsening. Obtain most recent lab Warned of increased BS with prednisone--has sliding scale to use 06/11/2015 Appointment: Galina Smith WPtel: [address] [place], [place] [phone] 06/10/15 cn....06/10/15 appt confirme d cn Annual Well Visit 05/14 Patient Education: Patient Medication Summary Completed 06/11/2015 Appointment: Galina Smith WPtel: [address] [place] [address] FOLLOW UP 10/15/2014 Patient Education: Patient Medication Summary Completed 09/03/2014 Care Plan: COMPREHEN METABOLIC PANEL LOINC : 45964-8 Ordered 09/03/2014 Visit Plan: Obtain most recent lab results Will likely need HbA1C and Lipids if were not done Accuchecks q AC and HS 07/17/2014 Appointment: Galina Smith WPtel: [address] [place] [address] FOLLOW UP 07/17/2014 Patient Education: Patient Medication Summary Completed 07/17/2014 Appointment: Galina Smith WPtel: [address] [place] [address] 01/29 01/30 NO SHOW FOLLOW UP 01/30/2014 Visit Plan: Check CMP, HbA1C, CBC, Lipids Pt sees transplant doctor next month Pt is currently just using insulin prn and monitering BS 10/31/2013 Appointment: Galina Smith WPtel: [address] [place] [address] FOLLOW UP 10/31/2013 Patient Education: Patient Medication Summary Completed 10/31/2013 Visit Plan: Continue current meds a nd acuchecks 08/01/2013 Appointment: Galina Smith WPtel: [address] [place], [place] [id number] 07/31 VM FOLLOW UP 08/01/2013 Patient Education: Patient Medication Summary Completed 08/01/2013 Visit Plan: CBC, CMP, CRP To [facility] for CT abdomen/Pelvis w/o contrast 07/30/2013 Appointment: Alejandra Billy WPtel: [address] [place] [address] ACUTE ILLNESS 07/30/2013 Patient Education: Patient Medication Summary Completed 07/30/2013 Visit Plan: Restart Diovan--pt says needs PA Continue fluoxetine at 20mg daily 05/30/2013 Appointment: Galina Smith WPtel: [address] [place] [address] FOLLOW UP 05/30/2013 Patient Education: Patient Medication Summary Completed 05/30/2013 Appointment: Galina Smith WPtel: [address] [place] [address] [place] has appt following day FOLLOW UP 05/29/2013 Visit Plan: Restart Diovan and Amlo dopine as has been out--new rx sent out Trial of Fluoxetine 20mg q AM Stress Reducers 04/29/2013 Appointment: Galina Smith WPtel: [address] [place] [address] 04/26 MOM made appt. confirmed monday ACUTE ILLNESS 04/29/2013 Patient Education: Patient Medication Summary Completed 04/29/2013 Visit Plan: Continue current meds a nd accuchecks Pt going for fasting lab next month 02/27/2013 Appointment: Galina Smith WPtel: [address] [place] [address] FOLLOW UP 02/27/2013 Patient Education: Patient Medication Summary Completed 02/27/2013 Appointment: Viky Acosta WPtel: [address] [place] [address] ACUTE ILLNESS 01/01/2013 Patient Education: Patient Medication Summary Completed 01/01/2013 Visit Plan: Continue current meds C heck fasting lab next week 11/27/2012 Appointment: Galina Smith WPtel: [address] [place] [address] FOLLOW UP 11/27/2012 Patient Education: Patient Medication Summary Completed 11/27/2012 Visit Plan: Lab discussed Continue current meds and accuchecks Pt sees transplant doctor in in October Check fasting lab and fwup in 3mos 08/28/2012 Appointment: Galina Smith WPtel: [address] [place], [place] [id number] 08/27 FOLLOW UP 08/28/2012 Patient Education: Patient Medication Summary Completed 08/28/2012 Appointment: Galina Smith WPtel: [address] [place], [place] [id number] LAB 08/20/2012 Patient Education: Patient Medication Summary Completed 08/20/2012 Visit Plan: Continue levemir at cur rent dose with accuchecks Use apidra with sliding scale Check Chem 7 and HbA1C in 2mos 07/03/2012 Appointment: Galina Smith WPtel: [address] [place], [place] [phone] 07/02 FOLLOW UP 07/03/2012 Patient Education: Patient [...] 320mg daily 06/21/2012 Appointment: Galina Smith WPtel: [address] [place], [place] [id number] ACUTE ILLNESS 06/21/2012 Patient Education: Patient Medication Summary Completed 06/21/2012 Visit Plan: Increase Levemir to 75 u sc q PM Continue sliding scale insulin with accuchecks q AC and HS Call in 1wk with BS readings 05/30/2012 Appointment: Galina Smith WPtel: [address] [place], [place] [id number] [facility] Follow Up 05/30/2012 Patient Education: Patient Medication Summary Completed 05/30/2012 Appointment: Galina Smith WPtel: [address] [place], [place] [phone] 05/21 - cancelled appointment for 05/22 because PT was worked in on 05/21 FOLLOW UP 05/22/2012 Visit Plan: Obtain lab done last mo from [facility] See optometry for dilated eye exam and eye pressures today May need CT head pending results of eye evaluation 05/21/2012 Appointment: Galina Smith WPtel: [address] [place], [place] [phone] WORK IN 05/21/2012 Appointment: Galina Smith WPtel: [address] [place], [place] [phone] US LAB 05/21/2012 Patient Education: Patient Medication Summary Completed 05/21/2012 Visit Plan: Continue current meds O btain most recent lab done at [facility] See eye doctor today for dilated exam and eye pressures May need CT head pending dilated eye exam results 01/24/2012 Visit Plan: Continue current meds O btain most recent lab done at [facility] 01/24/2012 Visit Plan: Continue current meds C heck CBC, CMP, TSH, Free T4 01/24/2012 Appointment: Galina Smith WPtel: [address] [place] [address] voicemail FOLLOW UP 01/24/2012 Patient Education: Patient Medication Summary Completed 01/24/2012 Visit Plan: Decrease Norvasc to 2.5 mg daily Check CBC, CMP, TSH, Free T4 09/21/2011 Appointment: Galina Smith WPtel: [address] [place], [place] [id number] ACUTE ILLNESS 09/21/2011 Patient Education: Patient Medication Summary Completed 09/21/2011 Visit Plan: Continue Diovan at curr ent dose Add amlodopine Check Lipids/LFTs with next lab 09/12/2011 Appointment: Galina Smith WPtel: [address] [place], [place] [phone] [place] FOLLOW UP 09/12/2011 Patient Education: Patient Medication Summary Completed 09/12/2011 Visit Plan: Increase Diovan to 320m g po daily Check TSH and Free T4 with kidney lab next week 06/14/2011 Appointment: Galina Smith WPtel: [address] [place], [place] [id number] [place] FOLLOW UP 06/14/2011 Patient Education: Patient Medication Summary Completed 06/14/2011 Visit Plan: Z-pack then new tootheb ivory Start Diovan 03/03/2011 Appointment: Galina Smithtel: [address] [place], [place] [phone] ACUTE ILLNESS 03/03/2011 Patient Education: Patient Medication Summary Completed 03/03/2011 Visit Plan: Check TSH, Free T4 toda y Pt will moniter BP at home See if treatment of sinuses helps headaches 01/27/2011 Appointment: Galina Smith WPtel: [address] [place], [place] [id number] FOLLOW UP 01/27/2011 Patient Education: Patient Medication Summary Completed 01/27/2011 Visit Plan: Continue current meds a nd proceed with lab per kidney transplant doctor Start Synthroid at 50mcg po daily 12/02/2010 Appointment: Galina Smith WPtel: [address] [place], [place] [phone] FOLLOW UP 12/02/2010 Patient Education: Patient Medication Summary Completed 12/02/2010 Appointment: Galina Smith WPtel: [address] [place], [place] [id number] Suture Removal 10/20/2009 Patient Education: Patient Medication [...] and monitering BS . Obtain lab done [facility] from [facility] See optometry for dilated eye [...] celine if not improving . Continue current eds Obtain most recent lab done at [facility] See eye doctor today for dilated exam and eye pressures May need CT head pending dilated eye exam results . Continue current m eds Obtain most recent lab done at [facility] . Continue current eds Check CBC, CMP, TSH, Free T4 . Continue current eds and accuchecks Pt going for fasting lab next month . Check TSH, Free T4 today Pt will moniter BP at home See if treatment of sinuses helps headaches . CBC, CMP, CRP To [facility] for CT abdomen/Pelvis w/o contrast . Saline [...] . Labs completed thi s am in [facility] but do not have results yet. Start Lyrica 75mg PO bid Will Call in a week and let know if pain is improved. . Labs completed thi s am in [facility] but do not have results yet. Start Lyrica 75mg PO bid Will Call in a week and let know if pain is improved. . Restart Diovan and Amlodopine as has been out--new rx sent out Trial of Fluoxetine 20mg q AM Stress Reducers
--- OUTSIDE RECORDS SUMMARY | 2019-08-21 00:32 | XMS REPORT | CCD ---
Author Author Cuauhtemoc Smith D.O. Organization [facility] Address [address] [place] [address] Phone Care Team Providers Care Fitter Tacker Name Role Phone Galina Smith D.O., PP Unavailable CCM Unavailable Summary Purpose Interface Exchange Insurance Providers Payer name Policy type / Coverage type Covered libertarian ID Effective Begin Date Effective End Date Blue Cross Blue Shield Blue Cross/Bl ue Shield [id number] 2017 Un known Family History Family History data not found Social History Social History Element Codes Description Effective Dates Tobacco history SNOMED CT: [id number] Currently uses smokeless tobacco 06/14/2011 Allergies, Adverse [...] 100 unit/mL (3 mL) subcutaneous pen RxNorm: 189031 90 Unit(s) SQ BID 01/08/2019 04/07/2019 Active Levemir FlexTouch U- 100 Insulin 100 unit/mL (3 mL) subcutaneous pen RxNorm: 981929 90 Unit(s) SQ BID 12/04/2018 12/03/2018 Inactive Levemir FlexTouch U- 100 Insulin 100 unit/mL (3 mL) subcutaneous pen RxNorm: 674355 90 Unit(s) SQ BID 12/04/2018 01/07/2019 Inactive Levemir FlexTouch U- 100 Insulin 100 unit/mL (3 mL) subcutaneous pen RxNorm: 407461 70 Unit(s) SQ BID 10/26/2018 12/04/2018 Inactive Levemir FlexTouch U- 100 Insulin 100 unit/mL (3 mL) subcutaneous pen RxNorm: 374866 GIVE 90 UNITS SUBCUTANEOUSLY TWICE DAILY 10/08/2018 10/26/2018 Inactive Levemir FlexTouch U- 100 Insulin 100 unit/mL (3 mL) subcutaneous pen RxNorm: 128734 90 Unit(s) SQ BID 07/30/2018 10/07/2018 Inactive Levemir FlexTouch U- 100 Insulin 100 unit/mL (3 mL) subcutaneous pen RxNorm: 444750 90 Unit(s) SQ BID 07/06/2018 07/29/2018 Inactive Pen Needle 31 gauge x 5/16" RxNorm: USE DIRECTED 03/21/2018 No Stop Date Active Levemir FlexTouch U- 100 Insulin 100 unit/mL (3 mL) subcutaneous pen RxNorm: 882741 80 Unit(s) SQ BID 02/15/2018 07/06/2018 Inactive Levemir FlexTouch U- 100 Insulin 100 unit/mL (3 mL) subcutaneous pen RxNorm: 048609 INJECT 105 UNITS SUBCUTANEOUSLY IN THE EVENING 01/24/2018 02/15/2018 Inactive Levemir FlexTouch U- 100 Insulin 100 unit/mL (3 mL) subcutaneous pen RxNorm: 507099 INJECT 105 UNITS SUBCUTANEOUSLY IN THE EVENING 12/26/2017 01/23/2018 Inactive Novolog Flexpen U-10 0 Insulin aspart 100 unit/mL subcutaneous RxNorm: 5455088 INJECT SUBCUTANEOUSLY NEEDED PER SLIDING SCALE 12/25/2017 No Stop Date Active Levemir FlexTouch U- 100 Insulin 100 unit/mL (3 mL) subcutaneous pen RxNorm: 060070 70 Unit(s) SQ BID 11/03/2017 11/03/2017 Inactive Levemir FlexTouch U- 100 Insulin 100 unit/mL (3 mL) subcutaneous pen RxNorm: 579248 105 Unit(s) SQ QPM 11/02/2017 11/02/2017 Inactive Levemir FlexTouch U- 100 Insulin 100 unit/mL (3 mL) subcutaneous pen RxNorm: 068537 105 Unit(s) SQ QPM Needs updated labs 11/01/2017 11/01/2017 Inactive Levemir FlexTouch U- 100 Insulin 100 unit/mL (3 mL) subcutaneous pen RxNorm: 608224 Unit(s) 105 Unit(s) SQ QPM 09/18/2017 09/18/2017 Inactive Levemir FlexTouch U- 100 Insulin 100 unit/mL (3 mL) subcutaneous pen RxNorm: 982136 105 Unit(s) SQ QPM 08/07/2017 09/18/2017 Inactive cephalexin 500 mg ca psule RxNorm: 787267 1 Capsule(s) PO BID 07/27/2017 08/02/2017 Inactive Levemir FlexTouch U- 100 Insulin 100 unit/mL (3 mL) subcutaneous pen RxNorm: 366492 105 Unit(s) SQ QPM 06/07/2017 06/07/2017 Inactive Levemir FlexTouch 10 0 unit/mL (3 mL) subcutaneous insulin pen RxNorm: 483906 105 Unit(s) SQ QPM 05/11/2017 06/07/2017 Inactive Lipitor 40 mg tablet RxNorm: 877257 1.5 Tablet(s) PO QD 04/05/2017 10/01/2017 Inactive Diovan 320 mg tablet RxNorm: 543877 1 Tablet(s) PO QD 04/05/2017 03/30/2018 Inactive Lipitor 40 mg tablet RxNorm: 539548 1 Tablet(s) PO QD 04/05/2017 04/04/2017 Inactive nystatin 100,000 uni t/gram topical ointment RxNorm: 920536 1 Gram(s) TOP BID 04/05/2017 05/02/2017 In active Levemir FlexTouch 10 0 unit/mL (3 mL) subcutaneous insulin pen RxNorm: 457615 105 Unit(s) SQ QPM 04/05/2017 04/05/2017 Inactive Levemir FlexTouch 10 0 unit/mL (3 mL) subcutaneous insulin pen RxNorm: 403542 90 Unit(s) SQ QPM LAST REFILL UNTIL LABS AND APPOINTMENT!!!! 04/05/2017 05/11/2017 Inactive Novolog Flexpen 100 unit/mL subcutaneous RxNorm: 6553894 Unit(s) INJECT SUBCU TANEOUSLY NEEDED PER SLIDING SCALE---NEEDS UPDATED LABS 03/07/2017 12/03/2018 Inactive Levemir FlexTouch 10 0 unit/mL (3 mL) subcutaneous insulin pen RxNorm: 808097 90 Unit(s) SQ QPM LAST REFILL UNTIL LABS AND APPOINTMENT!!!! 02/17/2017 03/18/2017 Inactive Levemir FlexTouch 10 0 unit/mL (3 mL) subcutaneous insulin pen RxNorm: 504176 90 Unit(s) SQ QPM NEEDS FASTING LABS AND APPOINTMENT BEFORE FURTHER REFILLS 12/22/2016 02/17/2017 In active Novolog Flexpen U-10 0 Insulin aspart 100 unit/mL subcutaneous RxNorm: 5681540 Unit(s) INJECT SUBCUTANEOUSLY NEEDED PER SLIDING SCALE---NEEDS UPDATED LABS 11/28/2016 03/07/2017 Inactive Levemir FlexTouch 10 0 unit/mL (3 mL) subcutaneous insulin pen RxNorm: 597351 90 Unit(s) VAG QPM 11/08/2016 12/22/2016 Inactive Levemir FlexTouch 10 0 unit/mL (3 mL) subcutaneous insulin pen RxNorm: 348843 90 Unit(s) VAG QPM 11/08/2016 12/21/2016 Inactive Levemir FlexTouch 10 0 unit/mL (3 mL) subcutaneous insulin pen RxNorm: 388579 80 Unit(s) VAG QPM 09/05/2016 11/08/2016 Inactive Levemir FlexTouch 10 0 unit/mL (3 mL) subcutaneous insulin pen RxNorm: 629185 85 Unit(s) SQ QD 07/22/2016 09/05/2016 Inactive Levemir FlexTouch 10 0 unit/mL (3 mL) subcutaneous insulin pen RxNorm: 462893 85 Unit(s) SQ QD 07/04/2016 07/21/2016 Inactive Levemir FlexTouch 10 0 unit/mL (3 mL) subcutaneous insulin pen RxNorm: 456469 85 Unit(s) SQ QD 06/14/2016 06/19/2016 Inactive Levemir FlexTouch 10 0 unit/mL (3 mL) subcutaneous insulin pen RxNorm: 118507 85 Unit(s) SQ QD 05/03/2016 05/22/2016 Inactive Levemir FlexTouch 10 0 unit/mL (3 mL) subcutaneous insulin pen RxNorm: 491949 85 Unit(s) SQ QD 05/03/2016 05/02/2016 Inactive Levemir FlexTouch 10 0 unit/mL (3 mL) subcutaneous insulin pen RxNorm: 652819 85 Unit(s) SQ QD 03/14/2016 04/22/2016 Inactive cefuroxime axetil 25 0 mg tablet RxNorm: 169864 1 Tablet(s) PO BID 02/16/2016 02/25/2016 Inactive Levemir FlexTouch 10 0 unit/mL (3 mL) subcutaneous insulin pen RxNorm: 418531 85 Unit(s) SQ QD 02/03/2016 03/13/2016 Inactive Levemir FlexTouch 10 0 unit/mL (3 mL) subcutaneous insulin pen RxNorm: 628828 85 Unit(s) SQ QD 12/07/2015 02/02/2016 Inactive Pen Needle 31 gauge x 5/16" RxNorm: USE DIRECTED 11/19/2015 05/16/2016 Inactive Levemir FlexTouch 10 0 unit/mL (3 mL) subcutaneous insulin pen RxNorm: 779803 INJECT 75 UNITS SUBCUTANEOUSLY ONCE DAILY; NEED LABS AND APPT 10/06/2015 12/04/2015 Inactive Novolog Flexpen 100 unit/mL subcutaneous RxNorm: 1003951 INJECT SUBCUTANEOUSL Y NEEDED PER SLIDING SCALE 09/15/2015 11/28/2016 Inactive Levemir FlexTouch 10 0 unit/mL (3 mL) subcutaneous insulin pen RxNorm: 804915 75 Unit(s) SQ QD Needs lab and appointment 07/13/2015 10/05/2015 Inactive Lyrica 75 mg capsule RxNorm: 900332 1 Capsule(s) PO BID 06/24/2015 07/23/2015 Inactive Levemir FlexTouch 10 0 unit/mL (3 mL) subcutaneous insulin pen RxNorm: 599461 75 Unit(s) SQ QD Needs lab and appointment 06/23/2015 07/12/2015 Inactive Novolog Flexpen 100 unit/mL subcutaneous RxNorm: 7159592 Unit(s) SQ as needed Sliding scale 06/15/2015 09/14/2015 Inactive Flonase Allergy Reli ef 50 mcg/actuation nasal spray,suspension RxNorm: 2 [place] NASAL QHS 06/11/2015 12/02/2015 Inactive prednisone 20 mg tablet RxNorm: 685468 1 Tablet(s) PO TID for 3 days then 1 po BID for 3 days then one daily for 3 days 06/11/2015 12/02/2015 Inactive cefdinir 300 mg capsule RxNorm: 238962 2 Capsule(s) PO QD 06/11/2015 06/24/2015 Inactive Levemir FlexTouch 10 0 unit/mL (3 mL) subcutaneous insulin pen RxNorm: 444972 75 Unit(s) SQ QD Needs lab and appointment 05/29/2015 06/22/2015 Inactive Novolog 100 unit/mL subcutaneous solution RxNorm: 177738 Unit(s) SQ Inject as directed using sliding scale B 05/29/2015 12/03/2018 Inactive Levemir Flexpen 100 unit/mL (3 mL) solution subcutaneous insulin pen RxNorm: 691246 INJECT 75 UNITS SUBCUTANEOUSLY EVERY DAY 05/11/2015 05/29/2015 Inactive Levemir FlexTouch 10 0 unit/mL (3 mL) subcutaneous insulin pen RxNorm: 410890 75 Unit(s) SQ QHS 03/30/2015 12/03/2018 Inactive Levemir FlexTouch 10 0 unit/mL (3 mL) subcutaneous insulin pen RxNorm: 554889 75 Unit(s) SQ QHS 03/09/2015 03/29/2015 Inactive Contour Test Strips RxNorm: Miscellaneous 01/27/2015 No Stop Date Active Novolog 100 unit/mL subcutaneous solution RxNorm: 700289 Unit(s) SQ Inject as directed using sliding scale B 01/27/2015 05/29/2015 Inactive Levemir Flexpen 100 unit/mL (3 mL) solution subcutaneous insulin pen RxNorm: 863252 INJECT 75 UNITS SUBCUTANEOUSLY EVERY DAY 11/05/2014 03/09/2015 Inactive Levemir Flexpen 100 unit/mL (3 mL) solution subcutaneous insulin pen RxNorm: 804309 INJECT 75 UNITS SUBCUTANEOUSLY EVERY DAY 08/13/2014 10/31/2014 Inactive Novolog 100 unit/mL subcutaneous solution RxNorm: 223650 Unit(s) SQ Inject as directed using sliding scale B 07/15/2014 01/26/2015 Inactive Apidra SoloStar 100 unit/mL subcutaneous insulin pen RxNorm: 251995 Unit(s) SQ INJECT DIRECTED USING SLIDING SCALE B 07/11/2014 07/14/2014 Inactive Diovan 320 mg tablet RxNorm: 571045 1 Tablet(s) PO QD 06/10/2014 06/04/2015 Inactive Apidra SoloStar 100 unit/mL subcutaneous insulin pen RxNorm: 555109 Unit(s) SQ INJECT DIRECTED USING SLIDING SCALE B 04/18/2014 07/10/2014 Inactive Levemir Flexpen 100 unit/mL (3 mL) solution subcutaneous insulin pen RxNorm: 298993 Unit(s) SQ INJECT 75 UNITS SUBCUTANEOUSLY EVERY DAY 02/28/2014 02/27/2014 Inactive [SAVINGS FOR UNINSURED PATIENTS -- BIN:[id number], PCN: [id number], Group: [id number], ID# [id number], Process claim through [employer], for questions: . THIS IS NOT INSURANCE.] Apidra SoloStar 100 unit/mL subcutaneous insulin pen RxNorm: 527382 Unit(s) SQ INJECT DIRECTED USING SLIDING SCALE B 09/05/2013 04/17/2014 Inactive Pen Needle 31 gauge x 5/16" RxNorm: Miscellaneous USE DIRECT ED WITH LEVEMIR AND APIDRA 08/23/2013 11/18/2015 Inactive Prograf 1 mg capsule RxNorm: 784187 2 Capsule(s) PO BID Generic OK to fill 08/21/2013 No Stop Date Active Diovan 320 mg tablet RxNorm: 414138 1 Tablet(s) PO QD 05/30/2013 05/24/2014 Inactive fluoxetine 20 mg tablet RxNorm: 861375 1 Tablet(s) PO QAM 05/30/2013 07/31/2013 Inactive amlodipine 5 mg tablet RxNorm: 057063 1 Tablet(s) PO QD 04/29/2013 04/23/2014 Inactive fluoxetine 20 mg tablet RxNorm: 001326 1 Tablet(s) PO QAM 04/29/2013 05/29/2013 Inactive ketoconazole 2 % top ical cream RxNorm: 837586 Application TOP BID f or 2-4wks 04/29/2013 05/12/2013 In active Diovan 320 mg tablet RxNorm: 061813 1 Tablet(s) PO QD 04/29/2013 06/10/2014 Inactive Apidra SoloStar 100 unit/mL subcutaneous insulin pen RxNorm: 092980 Unit(s) SQ Sliding Scale B 02/19/2013 09/05/2013 Inactive Levemir Flexpen 100 unit/mL (3 mL) solution subcutaneous insulin pen RxNorm: 577447 Insulin Pen SQ INJECT 75 UNITS SUBCUTANEOUSLY EVERY DA Y 01/21/2013 02/28/2014 Inactive Septra DS 800 mg-160 mg tablet RxNorm: 503566 1 Tablet(s) PO BID an tibiotic 01/01/2013 01/07/2013 In active ketoconazole 2 % top ical cream RxNorm: 055432 1 Application TOP BID 01/01/2013 01/14/2013 Inactive Levemir Flexpen 100 unit/mL (3 mL) Sub-Q Insulin Pen RxNorm: 859484 Unit(s) SQ INJECT 75 UNITS SUB-Q ONCE A DAY 12/07/2012 No Stop Date Active Levemir Flexpen 100 unit/mL (3 mL) Sub-Q Insulin Pen RxNorm: 685855 Unit(s) SQ INJECT 75 UNITS SUB-Q ONCE A DAY 10/22/2012 12/07/2012 Inactive Levemir Flexpen 100 unit/mL (3 mL) Sub-Q Insulin Pen RxNorm: 647844 75 Unit(s) SQ QHS 08/20/2012 10/22/2012 Inactive Diovan 320 mg tablet RxNorm: 288659 1 Tablet(s) PO QD 07/30/2012 04/28/2013 Inactive Levemir Flexpen 100 unit/mL (3 mL) Sub-Q Insulin Pen RxNorm: 071783 Insulin Pen SQ INJECT 75 UNITS SUB-Q ONCE A DAY 07/30/2012 10/21/2012 Inactive Levemir Flexpen 100 unit/mL (3 mL) Sub-Q Insulin Pen RxNorm: 214638 75 Unit(s) SQ QHS 07/30/2012 08/19/2012 Inactive Levemir Flexpen 100 unit/mL (3 mL) Sub-Q Insulin Pen RxNorm: 969327 75 Unit(s) SQ QHS 07/30/2012 07/29/2012 Inactive Diovan 320 mg tablet RxNorm: 666302 1 Tablet(s) PO QD 06/21/2012 06/20/2012 Inactive Diovan 320 mg tablet RxNorm: 278526 1 Tablet(s) PO QD 06/21/2012 06/20/2012 Inactive Diovan 320 mg tablet RxNorm: 847283 1 Tablet(s) PO QD 06/21/2012 07/29/2012 Inactive CellCept 250 mg capsule RxNorm: 891594 4 Capsule(s) PO BID 06/14/2012 06/20/2012 Inactive Prograf 1 mg capsule RxNorm: 459740 2 Capsule(s) PO BID Generic OK to fill 06/14/2012 06/20/2012 In active Apidra SoloStar 100 unit/mL Sub-Q Insulin Pen RxNorm: 956179 Unit(s) SQ Sliding Sc supriya B 06/13/2012 12/03/2018 Inactive Levemir Flexpen 100 unit/mL (3 mL) Sub-Q Insulin Pen RxNorm: 780538 75 Unit(s) SQ QD 06/13/2012 No Stop Date Active Apidra SoloStar 100 unit/mL Sub-Q Insulin Pen RxNorm: 970542 Unit(s) SQ Sliding Sc supriya B 06/13/2012 No Stop Date Active One Touch Delkaren Adeel cets RxNorm: Miscellaneous 0 06/13/2012 04/04/2017 Inactive Lipitor 40 mg tablet RxNorm: 958498 1 Tablet(s) PO QD 05/30/2012 08/27/2012 Inactive Diovan 320 mg tablet RxNorm: 229238 1 Tablet(s) PO QD 05/30/2012 06/20/2012 Inactive Tricor 145 mg tablet RxNorm: 722521 1 Tablet(s) PO QD 05/30/2012 08/27/2012 Inactive Lipitor 20 mg Tab RxNorm: 356155 1 Tablet(s) PO QD 09/12/2011 05/29/2012 Inactive Synthroid 50 mcg Tab RxNorm: 374231 1 Tablet(s) PO QD 09/12/2011 12/02/2015 Inactive Diovan 320 mg tablet RxNorm: 724544 1 Tablet(s) PO QD 09/12/2011 03/09/2012 Inactive amlodipine 5 mg tablet RxNorm: 372457 1 Tablet(s) PO QD 09/12/2011 03/09/2012 Inactive Diovan 320 mg Tab RxNorm: 539074 1 Tablet(s) PO QD 06/14/2011 09/11/2011 Inactive Diovan 160 mg Tab RxNorm: 842855 1 Tablet(s) PO QD 03/03/2011 06/13/2011 Inactive cefdinir 300 mg Cap RxNorm: 756319 2 Capsule(s) PO QD 01/27/2011 02/05/2011 Inactive Synthroid 50 mcg Tab RxNorm: 025773 1 Tablet(s) PO QD 12/02/2010 01/30/2011 Inactive Multivitamin & [place] al Formula Tab RxNorm: 1 Tablet(s) PO QD No Start Date Active Miralax 17 gram/dose oral powder RxNorm: 261489 PO BID in 6-8 ounces of water No Start Date Active Tylenol Extra Streng th 500 mg tablet RxNorm: 163306 Tablet(s) PO as neede d No Start Date Active Tricor Oral RxNorm: Oral No Start Date 05/29 Inactive MagOx 400 mg tablet RxNorm: 758577 1 Tablet(s) PO QD No Start Date 06/19/2016 Inactive sodium bicarbonate Oral RxNorm: Oral No Start Date 06/19/2016 Inactive Fish Oil 1,000 mg ca psule RxNorm: 1 Capsule(s) PO QD No Start Date 04/04/2017 Inactive Novofine Misc RxNorm: Miscellaneous No Start Date 06/12/2012 Inactive Percocet 5 mg-325 mg tablet RxNorm: 8775055 Tablet(s) PO as need ed Dr Parson No Start Date 04/04/2017 Inactive Contour Test Strips RxNorm: miscellaneous No Start Date 01/26/2015 Inactive Prograf 1 mg capsule RxNorm: 390765 2 Capsule(s) PO BID No Start Date 06/13/2012 Inactive Zantac 150 mg Tab RxNorm: 113179 Tablet(s) PO PRN No Start Date 12/02/2015 Inactive Levemir FlexTouch 10 0 unit/mL (3 mL) subcutaneous insulin pen RxNorm: 185971 75 Unit(s) SQ QHS No Start Date 03/08/2015 Inactive CellCept 250 mg capsule RxNorm: 151146 4 Capsule(s) PO BID No Start Date 06/13/2012 Inactive Novolog 100 unit/mL subcutaneous solution RxNorm: 790817 Unit(s) SQ Inject as directed using sliding scale B No Start Date 07/14/2014 Inactive Novolog Flexpen 100 unit/mL subcutaneous RxNorm: 7430466 Unit(s) SQ as needed Sliding scale No Start Date 06/14/2015 Inactive Apidra SoloStar 100 unit/mL Sub-Q Insulin Pen RxNorm: 443267 Unit(s) SQ Sliding Sc supriya B No Start Date 06/12/2012 Inactive Levemir FlexTouch U- 100 Insulin 100 unit/mL (3 mL) subcutaneous pen RxNorm: 364275 70 Unit(s) SQ BID No Start Date 02/06/2018 Inactive Pen Needle 31 X 5/16" RxNorm: Miscellaneous No Start Date 08/23/2013 Inactive Synthroid 50 mcg Tab RxNorm: 142661 1 Tablet(s) PO QD No Start Date 09/11/2011 Inactive Levemir Flexpen 100 unit/mL (3 mL) Sub-Q Insulin Pen RxNorm: 153367 70 Unit(s) SQ QHS No Start Date 07/29/2012 Inactive Levemir FlexTouch U- 100 Insulin 100 unit/mL (3 mL) subcutaneous pen RxNorm: 556359 80 Unit(s) SQ BID No Start Date 02/14/2018 Inactive Levemir FlexTouch 10 0 unit/mL (3 mL) subcutaneous insulin pen RxNorm: 922557 80 Unit(s) SQ QPM No Start Date 09/04/2016 Inactive Lipitor 40 mg tablet RxNorm: 284865 1 Tablet(s) PO QD No Start Date 04/04/2017 Inactive Ultram 50 mg tablet RxNorm: 958139 2 Tablet(s) PO TID as needed for pain No Start Date 06/10/2015 Inactive Prograf 1 mg Cap RxNorm: 857326 2 Capsule(s) PO BID No Start Date 05/20/2012 Inactive insulin needles (dis posable) 32 x 5/16" RxNorm: Miscellaneous for use with flex pen No Start Date 04/04/2017 Inactive Levemir FlexTouch U- 100 Insulin 100 unit/mL (3 mL) subcutaneous pen RxNorm: 108148 90 Unit(s) SQ BID No Start Date 07/05/2018 Inactive Levemir Flexpen 100 unit/mL (3 mL) Sub-Q Insulin Pen RxNorm: 850783 65 Unit(s) SQ QD No Start Date 06/12/2012 Inactive Zithromax Z-Mateus 250 mg Tab RxNorm: 058597 Tablet(s) PO No Start Date 06/13/2011 Inactive as directed Lipitor 20 mg Tab RxNorm: 939419 1 Tablet(s) PO QD No Start Date [...] ICD- 10: Z48.298 ICD-9: V58.44 08/24/2018 Other detention (current) drug therapy ICD-10: Z79.899 ICD-9: V58.69 [...] Observation Code Item Item Code Result Date [facility] 59447 Choles terol 320 mg/dL 08/27/2018 [facility] 77240 Trigly ceride 444 mg/dL 08/27/2018 [facility] 73378 HDL CH OLESTEROL 39 mg/dL 08/27/2018 [facility] 95690 Chol/H DL Ratio 8.21 ratio 08/27/2018 [facility] 69829 NON-HD L Chol 281 mg/dL 08/27/2018 [facility] 62032 LDL Ch olesterol N/A Trig >400 019 [facility] 76846 Fasting Unknown 08/27/2018 PHOSPHORUS 5958437 PHOSP HORUS 2.1 mg/dL 08/24/2018 PROTEIN/CREAT URINE WITH RATIO 75085|45740 U Protein 515 mg/dL 08/24/2018 PROTEIN/CREAT URINE WITH RATIO 15280|88497 U Creatinine 116 mg/dL 08/24/2018 PROTEIN/CREAT URINE WITH RATIO 54114|13523 Prot:Creat Rat 4440 mg/g 08/24/2018 MAGNESIUM 58965 MAGNESIUM 1.4 mEq/L 08/24/2018 GFR CALC 8036522 GFR Non Afr Amr 44 mL/min 08/24/2018 GFR CALC 9018602 GFR Afr Amr 53 mL/min 08/24/2018 [place] [address] Glucose TNP:Unknown Cancel Reason 08/24/2018 [place] [address] CREATININE TNP:Unknown Cancel Reason 08/24/2018 [place] [address] BUN TNP:Unknown Cancel Reason 08/24/2018 [place] [address] SODIUM TNP:Unknown Cancel Reason 08/24/2018 [place] [address] POTASSIUM TNP:Unknown Cancel Reason 08/24/2018 [place] [address] CHLORIDE TNP:Unknown Cancel Reason 08/24/2018 [place] [address] Bicarbonate TNP:Unknown Cancel Reason 08/24/2018 [place] [address] AGAP TNP:Unknown Cancel Reason 08/24/2018 [place] [address] CALCIUM TNP:Unknown Cancel Reason 08/24/2018 COMPREHENSIVE METABOLIC 87436 AST 21 U/L 08/24/2018 COMPREHENSIVE METABOLIC 15913 ALT 35 U/L 08/24/2018 COMPREHENSIVE METABOLIC 98409 BUN 25 mg/dL 08/24/2018 COMPREHENSIVE METABOLIC 36686 ALBUMIN 4.5 g/dL 08/24/2018 COMPREHENSIVE METABOLIC 82098 CHLORIDE 106 mmol/L 08/24/2018 COMPREHENSIVE METABOLIC 20688 Bili Total 0.4 mg/dL 08/24/2018 COMPREHENSIVE METABOLIC 62634 ALK PHOS 64 U/L 08/24/2018 COMPREHENSIVE METABOLIC 07304 SODIUM 141 mmol/L 08/24/2018 COMPREHENSIVE METABOLIC 18107 CREATININE 1.81 mg/dL 08/24/2018 COMPREHENSIVE METABOLIC 19381 CALCIUM 10.3 mg/dL 08/24/2018 COMPREHENSIVE METABOLIC 66444 POTASSIUM 3.4 mmol/L 08/24/2018 COMPREHENSIVE METABOLIC 20064 Total Protein 7.2 g/dL 08/24/2018 COMPREHENSIVE METABOLIC 15808 Glucose 101 mg/dL 08/24/2018 COMPREHENSIVE METABOLIC 15242 Bicarbonate 23 mmol/L 08/24/2018 COMPREHENSIVE METABOLIC 72230 AGAP 12 mmol/L 08/24/2018 UA W/MICR 84604 UA Urine Appear Normal 08/24/2018 UA W/MICR 12267 UA Prote in 3+ 08/24/2018 UA W/MICR 19151 UA Hemog lobin Trace 08/24/2018 UA W/MICR 55200 UA Gluco se 3+ 08/24/2018 UA W/MICR 33933 UA [place] es Negative 08/24/2018 UA W/MICR 20212 UA pH 6.0 08/24/2018 UA W/MICR 95934 U Spec G ravity 1.025 08/24/2018 UA W/MICR 96045 UA Bilir ubin Negative 08/24/2018 UA W/MICR 23306 UA Leuk Esteras Negative 08/24/2018 UA W/MICR 86717 UA Nitri te NEG 08/24/2018 UA W/MICR 56127 UA WBC/h pf 1 08/24/2018 UA W/MICR 48371 UA RBC a uto 12.9 /uL 08/24/2018 UA W/MICR 06431 UA RBC h pf 2 08/24/2018 UA W/MICR 75987 UA WBC a uto 5.9 /uL 08/24/2018 UA W/MICR 11086 UA SQ EP I auto 5.2 /uL 08/24/2018 UA W/MICR 84696 UA H Jamil t auto 0.10 /uL 08/24/2018 PROGRAF 7789738 Prograf 7.3 ng/mL 08/24/2018 MICROALBUMIN URINE RANDOM 03279 U Microalbumin 3485.2 mg/L 08/24/2018 MICROALBUMIN URINE RANDOM 43166 U Creatinine 116 mg/dL 08/24/2018 MICROALBUMIN URINE RANDOM 08360 ALB/CR Ratio 3004.5 mg/gCR 08/25/19 19 GLYCOSYLATED HEMOGLOBIN TEST 69517 Hgb A1c 69535-5 13.3 % 9 MEAN GLUC 7566323 Calc M sherron Gluc 335 mg/dL 06/29/2018 COMPREHENSIVE METABOLIC 50412 AST 17 U/L 02/06/2018 COMPREHENSIVE METABOLIC 31178 ALT 24 U/L 02/06/2018 COMPREHENSIVE METABOLIC 96036 BUN 24 mg/dL 02/06/2018 COMPREHENSIVE METABOLIC 17963 ALBUMIN 3.9 g/dL 02/06/2018 COMPREHENSIVE METABOLIC 91556 CHLORIDE 108 mmol/L 02/06/2018 COMPREHENSIVE METABOLIC 92121 Bili Total 0.6 mg/dL 02/06/2018 COMPREHENSIVE METABOLIC 12861 ALK PHOS 67 U/L 02/06/2018 COMPREHENSIVE METABOLIC 45160 SODIUM 140 mmol/L 02/06/2018 COMPREHENSIVE METABOLIC 49963 CREATININE 1.75 mg/dL 02/06/2018 COMPREHENSIVE METABOLIC 79561 CALCIUM 9.6 mg/dL 02/06/2018 COMPREHENSIVE METABOLIC 30424 POTASSIUM 3.8 mmol/L 02/06/2018 COMPREHENSIVE METABOLIC 66486 Total Protein 7.1 g/dL 02/06/2018 COMPREHENSIVE METABOLIC 26873 Glucose 62 mg/dL 02/06/2018 COMPREHENSIVE METABOLIC 04217 Bicarbonate 23 mmol/L 02/06/2018 COMPREHENSIVE METABOLIC 93326 AGAP 9 mmol/L 02/06/2018 GLYCOSYLATED HEMOGLOBIN TEST 24647 Hgb A1c 13225-1 13.0 % 8 GFR CALC 8026400 GFR Non Afr Amr 46 mL/min 02/06/2018 GFR CALC 0048970 GFR Afr Amr 55 mL/min 02/06/2018 MICROALBUMIN URINE RANDOM 14404 U Microalbumin 669.0 mg/L 02/06/2018 MICROALBUMIN URINE RANDOM 85952 U Creatinine 92 mg/dL 02/06/2018 MICROALBUMIN URINE RANDOM 19673 ALB/CR Ratio 727.2 mg/gCR 8 MEAN GLUC Calc M sehrron Gluc 326 mg/dL 02/06/2018 GLYCOSYLATED HEMOGLOBIN TEST 59786 Hgb A1c 75245-5 14.3 % 6 THYROID STIMULATING HORMONE 80364 TSH 1.909 uIU/mL 6 MAGNESIUM 55873 MAGNESIUM 1.5 mEq/L 12/03/2015 GFR CALC 8778720 GFR Non Afr Amr 39 mL/min 12/03/2015 GFR CALC 5961429 GFR Afr Amr 48 mL/min 12/03/2015 MEAN GLUC 1553798 Mean G lucose 364 mg/dL 12/03/2015 COMPREHENSIVE METABOLIC 50303 AST 34 U/L 12/03/2015 COMPREHENSIVE METABOLIC 02824 ALT 78 U/L 12/03/2015 COMPREHENSIVE METABOLIC 95077 BUN 29 mg/dL 12/03/2015 COMPREHENSIVE METABOLIC 68071 ALBUMIN 4.3 g/dL 12/03/2015 COMPREHENSIVE METABOLIC 00914 CHLORIDE 93 mmol/L 12/03/2015 COMPREHENSIVE METABOLIC 41984 Bili Total 0.7 mg/dL 12/03/2015 COMPREHENSIVE METABOLIC 30868 ALK PHOS 83 U/L 12/03/2015 COMPREHENSIVE METABOLIC 28629 SODIUM 125 mmol/L 12/03/2015 COMPREHENSIVE METABOLIC 57114 CREATININE 2.01 mg/dL 12/03/2015 COMPREHENSIVE METABOLIC 50453 CALCIUM 9.8 mg/dL 12/03/2015 COMPREHENSIVE METABOLIC 25714 POTASSIUM 4.3 mmol/L 12/03/2015 COMPREHENSIVE METABOLIC 39433 Total Protein 7.3 g/dL 12/03/2015 COMPREHENSIVE METABOLIC 94403 Glucose 542 mg/dL 12/03/2015 COMPREHENSIVE METABOLIC 80465 Bicarbonate 23 mmol/L 12/03/2015 COMPREHENSIVE METABOLIC 69135 AGAP 9 mmol/L 12/03/2015 COMPREHENSIVE METABOLIC 74048 AST 31 U/L 07/30/2013 COMPREHENSIVE METABOLIC 84714 ALT 52 IU/L 07/30/2013 COMPREHENSIVE METABOLIC 15824 BUN 26 MG/DL 07/30/2013 COMPREHENSIVE METABOLIC 38103 ALBUMIN 4.9 GM/DL 07/30/2013 COMPREHENSIVE METABOLIC 88106 CHLORIDE 108 MMOL/L 07/30/2013 COMPREHENSIVE METABOLIC 49707 BILI TOT 0.4 MG/DL 07/30/2013 COMPREHENSIVE METABOLIC 06497 ALK PHOS 68 U/L 07/30/2013 COMPREHENSIVE METABOLIC 70154 SODIUM 138 MMOL/L 07/30/2013 COMPREHENSIVE METABOLIC 65898 CREATININE 2.02 MG/DL 07/30/2013 COMPREHENSIVE METABOLIC 00298 CALCIUM 10.3 MG/DL 07/30/2013 COMPREHENSIVE METABOLIC 01559 POTASSIUM 5.0 MMOL/L 07/30/2013 COMPREHENSIVE METABOLIC 55551 PROT TOT 7.3 GM/DL 07/30/2013 COMPREHENSIVE METABOLIC 01921 Glucose 89 MG/DL 07/30/2013 COMPREHENSIVE METABOLIC 73738 BICARB 24 MMOL/L 07/30/2013 COMPREHENSIVE METABOLIC 96521 ANION GAP 6 MEQ/L 07/30/2013 GFR CALC 1895135 GFR AA 48.0L ML/MIN 07/30/2013 GFR CALC [id number] GFR NON -AA 40.0L ML/MIN 4 COMPLETE BLOOD COUNT [id number] WBC 7.9 10e9/L 07/30/2013 COMPLETE BLOOD COUNT [id number] RBC 4.94 10e12/L 4 COMPLETE BLOOD COUNT [id number] HGB 14.0 g/dL 07/30/2013 COMPLETE BLOOD COUNT [id number] HCT DET 41.5 % 07/30/2013 COMPLETE BLOOD COUNT [id number] MCV 84.0 fL 07/30/2013 COMPLETE BLOOD COUNT [id number] MCH 28.3 pg 07/30/2013 COMPLETE BLOOD COUNT [id number] MCHC 33.7 g/dL 07/30/2013 COMPLETE BLOOD COUNT [id number] PLT 176 10e9/L 07/30/2013 COMPLETE BLOOD COUNT [id number] MPV 11.8 fL 07/30/2013 COMPLETE BLOOD COUNT [id number] CLAYTON % 75.4 % 07/30/2013 COMPLETE BLOOD COUNT [id number] LY % 13.7 % 07/30/2013 COMPLETE BLOOD COUNT [id number] MON % 8.9 % 07/30/2013 COMPLETE BLOOD COUNT [id number] EOS % 1.7 % 07/30/2013 COMPLETE BLOOD COUNT [id number] BASO % 0.3 % 07/30/2013 COMPLETE BLOOD COUNT [id number] RDW 13.4 % 07/30/2013 COMPLETE BLOOD COUNT [id number] ABS CLAYTON 5.96 10e9/L 07/30/2013 COMPLETE BLOOD COUNT [id number] ABS LYMPH 1.08 10e9/L 07/30/2013 COMPLETE BLOOD COUNT 8885548 ABS MONO 0.70 10e9/L 07/30/2013 COMPLETE BLOOD COUNT [id number] ABS EOS 0.13 10e9/L 07/30/2013 COMPLETE BLOOD COUNT [id number] ABS BASO 0.02 10e9/L 07/30/2013 COMPLETE BLOOD COUNT [id number] RDW-SD 40.2 fL 07/30/2013 C-REACTIVE PROTEIN (CRP) QUANT 38331 CRP 0.2 MG/DL 07/30/2013 CANCEL 2316073 CANCEL FOOTNOTE 05/23/2012 PEND CHEM PEND C HEM FOOTNOTE 05/22/2012 COMPREHENSIVE METABOLIC 11315 AST 61 U/L 05/21/2012 COMPREHENSIVE METABOLIC 71000 ALT 106 U/L 05/21/2012 COMPREHENSIVE METABOLIC 61208 BUN 33 MG/DL 05/21/2012 COMPREHENSIVE METABOLIC 01664 ALBUMIN 5.0 GM/DL 05/21/2012 COMPREHENSIVE METABOLIC 10573 CHLORIDE 89 MMOL/L 05/21/2012 COMPREHENSIVE METABOLIC 42440 BILI TOT 0.6 MG/DL 05/21/2012 COMPREHENSIVE METABOLIC 93408 ALK PHOS 129 U/L 05/21/2012 COMPREHENSIVE METABOLIC 03561 SODIUM 120 MMOL/L 05/21/2012 COMPREHENSIVE METABOLIC 04885 CREATININE 2.23 MG/DL 05/21/2012 COMPREHENSIVE METABOLIC 86908 CALCIUM 9.8 MG/DL 05/21/2012 COMPREHENSIVE METABOLIC 31434 POTASSIUM 5.3 MMOL/L 05/21/2012 COMPREHENSIVE METABOLIC 65255 PROT TOT 7.8 GM/DL 05/21/2012 COMPREHENSIVE METABOLIC 59146 Glucose 789 MG/DL 05/21/2012 COMPREHENSIVE METABOLIC 29587 BICARB 20 MMOL/L 05/21/2012 COMPREHENSIVE METABOLIC 79084 ANION GAP 11 MMOL/L 05/21/2012 GFR CALC 6245847 GFR AA 43.0L ML/MIN 05/21/2012 GFR CALC 5744114 GFR NON -AA 36.0L ML/MIN 2 THYROID STIMULATING HORMONE 07690 TSH 1.499 uIU/ML 1 FREE T4 66613 FREE T4 1.15 NG/DL 01/27/2011 Review of [...] Procedures Procedure Codes Date ROUTINE VENIPUNCTURE CPT-4: 10862 02/19/2019 METABOLIC PANEL TOTA L CA CPT-4: 97993 02/19/2019 MICROALBUMIN, QUANTI TATIVE CPT-4: 04148 02/19/2019 LIPID PANEL CPT-4: 62280 02/19/2019 COMPREHEN METABOLIC PANEL CPT-4: 73123 02/19/2019 ASSAY OF MAGNESIUM CPT- 4: 61789 02/19/2019 METABOLIC PANEL TOTA L CA CPT-4: 01348 08/24/2018 COMPREHEN METABOLIC PANEL CPT-4: 72912 08/24/2018 ASSAY OF MAGNESIUM CPT- 4: 05688 08/24/2018 MICROALBUMIN QUANTIT ATIVE CPT-4: 45527 08/24/2018 PROTEIN/CREAT URINE WITH RATIO CPT-4: 84164|76151 08/24/2018 PHOSPHORUS CPT-4: 3403346 08/24/2018 LIPID PANEL CPT-4: 06002 08/24/2018 ROUTINE VENIPUNCTURE CPT-4: 99982 06/29/2018 A1C HPLC CPT-4: 05381 06/29/2018 URINALYSIS NONAUTO W /O SCOPE CPT-4: 98854 02/06/2018 URINE CULTURE/ COLON Y COUNT CPT-4: 38656 02/06/2018 MICROALBUMIN QUANTIT ATIVE CPT-4: 23410 02/06/2018 ROUTINE VENIPUNCTURE CPT-4: 09111 02/06/2018 COMPREHEN METABOLIC PANEL CPT-4: 27509 02/06/2018 A1C HPLC CPT-4: 80867 02/06/2018 ROUTINE VENIPUNCTURE CPT-4: 13049 11/02/2017 COMPREHEN METABOLIC PANEL CPT-4: 20596 11/02/2017 A1C HPLC CPT-4: 86964 11/02/2017 TDAP VACCINE 7 YRS/> IM CPT-4: 32409 07/27/2017 IMMUNIZATION ADMIN CPT- 4: 57719 07/27/2017 URINALYSIS NONAUTO W /O SCOPE CPT-4: 34363 02/16/2016 URINE CULTURE/ COLON Y COUNT CPT-4: 52894 02/16/2016 PRESCRIP TRANSMIT A ERX SY CPT-4: G8553 02/16/2016 ROUTINE VENIPUNCTURE CPT-4: 10483 12/03/2015 ASSAY THYROID STIM H ORMONE CPT-4: 81785 12/03/2015 COMPREHEN METABOLIC PANEL CPT-4: 05164 12/03/2015 A1C HPLC CPT-4: 41023 12/03/2015 ASSAY OF MAGNESIUM CPT- 4: 38650 12/03/2015 URINALYSIS NONAUTO W /O SCOPE CPT-4: 24777 12/03/2015 URINE CULTURE/ COLON Y COUNT CPT-4: 06010 12/03/2015 URINALYSIS NONAUTO W /O SCOPE CPT-4: 29462 07/30/2013 URINE CULTURE/ COLON Y COUNT CPT-4: 67910 07/30/2013 ROUTINE VENIPUNCTURE CPT-4: 20099 07/30/2013 COMPLETE CBC W/AUTO DIFF WBC CPT-4: 19726 07/30/2013 COMPREHEN METABOLIC PANEL CPT-4: 69243 07/30/2013 C-REACTIVE PROTEIN CPT- 4: 85546 07/30/2013 ROUTINE VENIPUNCTURE CPT-4: 63775 08/20/2012 ASSAY OF FREE THYROXINE CPT-4: 23080 08/20/2012 ASSAY THYROID STIM H ORMONE CPT-4: 27016 08/20/2012 COMPREHEN METABOLIC PANEL CPT-4: 53184 08/20/2012 COMPLETE CBC W/AUTO DIFF WBC CPT-4: 33914 08/20/2012 LIPID PANEL CPT-4: 49755 08/20/2012 A1C GLYCOSYLATED HEM OGLOBIN TEST CPT-4: 56980 08/20/2012 ASSAY, GLUCOSE, BLOO D QUANT CPT-4: 74979 06/21/2012 ASSAY, GLUCOSE, BLOO D QUANT CPT-4: 76274 05/21/2012 ROUTINE VENIPUNCTURE CPT-4: 57311 05/21/2012 COMPREHEN METABOLIC PANEL CPT-4: 15717 05/21/2012 A1C GLYCOSYLATED HEM OGLOBIN TEST CPT-4: 82716 05/21/2012 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 CPT-4: G8456 06/14/2011 PT VIS DOC USE EHR C ER ATCB CPT-4: G8447 06/14/2011 PRESCRIP TRANSMIT A ERX SY CPT-4: G8553 06/14/2011 PT VIS DOC USE EHR C ER ATCB CPT-4: G8447 03/03/2011 PRESCRIP TRANSMIT A ERX SY CPT-4: G8553 03/03/2011 ROUTINE VENIPUNCTURE CPT-4: 11237 01/27/2011 ASSAY OF FREE THYROXINE CPT-4: 83863 01/27/2011 ASSAY THYROID STIM H ORMONE CPT-4: 44167 01/27/2011 PT VIS DOC USE EHR C [...] 1: 158/90 Code: 8480-6 BMI: 34.3 Code: 70482-6 Heart Rate 1: 78 bpm Height: 6'1" Respiratory Rate: 20 bpm SpO2: 98% Temperature: 36.6 (C ) / 97.8 (F) Weight: 260 lbs 11/02/2017 Blood Pressure 1: 134/92 Code: 8480-6 BMI: 32.3 Code: 00320-6 Heart Rate 1: 72 bpm Height: 6'1" SpO2: 98% Temperature: 36.4 (C ) / 97.5 (F) Weight: 245 lbs 07/27/2017 Blood Pressure 1: 136/64 Code: 8480-6 BMI: 30.9 Code: 95229-2 Heart Rate 1: 78 bpm Height: 6'1" Respiratory Rate: 22 bpm SpO2: 98% Temperature: 36.4 (C ) / 97.6 (F) Weight: 234 lbs 04/05/2017 Blood Pressure 1: 126/90 Code: 8480-6 BMI: 33.5 Code: 30623-0 Heart Rate 1: 76 bpm Height: 6'1" Respiratory Rate: 20 bpm SpO2: 97% Temperature: 37.0 (C ) / 98.6 (F) Weight: 254 lbs 06/20/2016 Blood Pressure 1: 122/74 Code: 8480-6 BMI: 35.2 Code: 32951-9 Heart Rate 1: 80 bpm Height: 6'1" Respiratory Rate: 20 bpm SpO2: 97% Temperature: 36.9 (C ) / 98.5 (F) Weight: 267 lbs 02/16/2016 Blood Pressure 1: 136/82 Code: 8480-6 BMI: 36.4 Code: 86688-9 Heart Rate 1: 66 bpm Height: 6'1" Respiratory Rate: 18 bpm SpO2: 96% Temperature: 36.4 (C ) / 97.6 (F) Weight: 276 lbs 12/03/2015 Blood Pressure 1: 122/86 Code: 8480-6 BMI: 39.2 Code: 90142-9 Heart Rate 1: 76 bpm Height: 6' Respiratory Rate: 20 bpm Temperature: 37.1 (C ) / 98.7 (F) Weight: 289 lbs 06/24/2015 Blood Pressure 1: 136/84 Code: 8480-6 BMI: 40.7 Code: 24399-7 Heart Rate 1: 84 bpm Height: 6' Respiratory Rate: 20 bpm Temperature: 36.9 (C ) / 98.4 (F) Weight: 300 lbs 06/11/2015 Blood Pressure 1: 160/82 Code: 8480-6 BMI: 40.4 Code: 64258-5 Heart Rate 1: 82 bpm Height: 6' Respiratory Rate: 22 bpm Temperature: 36.5 (C ) / 97.7 (F) Weight: 298 lbs 07/17/2014 Blood Pressure 1: 132/84 Code: 8480-6 BMI: 41.0 Code: 21636-2 Heart Rate 1: 76 bpm Height: 6'1" Respiratory Rate: 20 bpm Temperature: 36.9 (C ) / 98.4 (F) Weight: 311 lbs 10/31/2013 Blood Pressure 1: 132/80 Code: 8480-6 BMI: 41.2 Code: 04439-1 Heart Rate 1: 84 bpm Height: 6'1" Respiratory Rate: 22 bpm Temperature: 36.1 (C ) / 97.0 (F) Weight: 312 lbs 08/01/2013 Blood Pressure 1: 142/86 Code: 8480-6 BMI: 42.4 Code: 02492-5 Heart Rate 1: 84 bpm Height: 6' [...] 1: 156/108 Code: 8480-6 BMI: 41.9 Code: 90780-5 Heart Rate 1: 92 bpm Height: 6' Respiratory Rate: 20 bpm Temperature: 36.9 (C ) / 98.4 (F) Weight: 309 lbs 02/27/2013 Blood Pressure 1: 162/114 Code: 8480-6 BMI: 41.0 Code: 25200-3 Heart Rate 1: 84 bpm Height: 6' Respiratory Rate: 20 bpm Temperature: 36.7 (C ) / 98.0 (F) Weight: 302 lbs 01/01/2013 Blood Pressure 1: 138/86 Code: 8480-6 BMI: 41.0 Code: 36397-5 Heart Rate 1: 76 bpm Height: 6' Respiratory Rate: 20 bpm Temperature: 36.7 (C ) / 98.0 (F) Weight: 302 lbs 11/27/2012 Blood Pressure 1: 136/92 Code: 8480-6 BMI: 41.2 Code: 80410-4 Heart Rate 1: 80 bpm Height: 6' Respiratory Rate: 20 bpm Temperature: 36.6 (C ) / 97.8 (F) Weight: 304 lbs 08/28/2012 Blood Pressure 1: 126/80 Code: 8480-6 BMI: 41.8 Code: 97807-8 Heart Rate 1: 80 bpm Height: 6' Respiratory Rate: 20 bpm Temperature: 36.4 (C ) / 97.6 (F) Weight: 308 lbs 07/03/2012 Blood Pressure 1: 114/80 Code: 8480-6 BMI: 42.3 Code: 31329-1 Heart Rate 1: 72 bpm Height: 6' Respiratory Rate: 20 bpm Temperature: 36.6 (C ) / 97.9 (F) Weight: 312 lbs 06/21/2012 Blood Pressure 1: 152/100 Code: 8480-6 BMI: 43.3 Code: 13300-0 Heart Rate 1: 72 bpm Height: 6' Temperature: 36.8 (C ) / 98.2 (F) Weight: 319 lbs 05/30/2012 Blood Pressure 1: 122/78 Code: 8480-6 BMI: 43.0 Code: 31902-9 Heart Rate 1: 72 bpm Height: 6' Respiratory Rate: 20 bpm Temperature: 36.7 (C ) / 98.0 (F) Weight: 317 lbs 05/21/2012 Blood Pressure 1: 126/94 Code: 8480-6 BMI: 44.2 Code: 58944-7 Heart Rate 1: 92 bpm Height: 6' Respiratory Rate: 20 bpm Temperature: 36.6 (C ) / 97.9 (F) Weight: 326 lbs 01/24/2012 Blood Pressure 1: 122/90 Code: 8480-6 BMI: 44.5 Code: 32808-8 Heart Rate 1: 76 bpm Height: 6' Respiratory Rate: 20 bpm Temperature: 36.8 (C ) / 98.2 (F) Weight: 328 lbs 09/21/2011 Blood Pressure 1: 116/80 Code: 8480-6 BMI: 44.1 Code: 97515-6 Heart Rate 1: 92 bpm Height: 6' Respiratory Rate: 20 bpm Temperature: 36.7 (C ) / 98.1 (F) Weight: 325 lbs 09/12/2011 Blood Pressure 1: 166/110 Code: 8480-6 BMI: 45.0 Code: 43389-4 Heart Rate 1: 80 bpm Height: 6' Respiratory Rate: 20 bpm Temperature: 36.5 (C ) / 97.7 (F) Weight: 332 lbs 06/14/2011 Blood Pressure 1: 142/84 Code: 8480-6 BMI: 45.6 Code: 02974-4 Heart Rate 1: 104 bpm Height: 6' Respiratory Rate: 20 bpm Temperature: 36.4 (C ) / 97.5 (F) Weight: 336 lbs 03/03/2011 Blood Pressure 1: 130/96 Code: 8480-6 Heart Rate 1: 86 bpm Temperature: 36.1 (C) / 97.0 (F) Weight: 327 lbs 01/27/2011 Blood Pressure 1: 142/96 Code: 8480-6 BMI: 42.0 Code: 63038-0 Heart Rate 1: 72 bpm Height: 6'2" [...] 11/27/2012 in elbow--seen in Urgent care in [place] and started on abx cellulitis Onset and [...] and Resolution ongoing 06/21/2012 been out of [facility] didn't have diabetes mellitus Blood glucose [...] Encounters Encounter Performer Loca tion Codes Date ([id number]) NURSE/OUTPAT IENT VISIT EST Diagnosis: 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, 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] Diagnosis: Essential (primary) hypertension[ICD10: I10] Diagnosis: Other specified hypothyroidism[ICD10: E03.8] Diagnosis: Mixed hyperlipidemia[ICD10: E78.2] Galina [facility] CPT-4: 91756 02/19/2019 ([id number]) NURSE/OUTPAT IENT VISIT EST Diagnosis: Kidney transplant status[ICD10: Z94.0] 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] Diagnosis: Other detention (current) drug therapy[ICD10: Z79.899] Diagnosis: Encounter for aftercare following other organ transplant[ICD10: Z48.298] Diagnosis: Mixed hyperlipidemia[ICD10: E78.2] Galina ARTEAGA [employer] CPT-4: 67245 08/24/2018 ([id number]) NURSE/OUTPAT IENT VISIT EST Diagnosis: Type 2 diabetes mellitus with diabetic neuropathy, unspecified[ICD10: E11.40] Diagnosis: Type 2 diabetes mellitus with hyperglycemia[ICD10: E11.65] 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] Diagnosis: Essential (primary) hypertension[ICD10: I10] Galina CASANOVA [facility] CPT-4: 17896 06/29/2018 ([id number]) OFFICE/OUTPA TIENT VISIT EST Diagnosis: Slow transit constipation[ICD10: K59.01] Diagnosis: Epigastric pain[ICD10: R10.13] Diagnosis: Type 2 diabetes mellitus with hyperglycemia[ICD10: E11.65] Coleen SMITH [facility] CPT-4: 37582 06/26/2018 ([id number]) OFFICE/OUTPA TIENT VISIT EST Diagnosis: Right lower quadrant pain[ICD10: R10.31] Diagnosis: Type 2 diabetes mellitus with diabetic neuropathy, unspecified[ICD10: E11.40] Coleen SMITH [facility] CPT-4: 60125 02/06/2018 ([id number]) OFFICE/OUTPA TIENT VISIT EST Diagnosis: Type 2 diabetes mellitus with hyperglycemia[ICD10: E11.65] Diagnosis: Mixed hyperlipidemia[ICD10: E78.2] Diagnosis: Essential (primary) hypertension[ICD10: I10] Coleen CHENEY [facility] CPT-4: 11493 11/02/2017 ([id number]) PREV VISIT E ST AGE 18-39 Diagnosis: Encounter for general adult medical examination with abnormal findings[ICD10: Z00.01] Diagnosis: Abrasion of right hand, initial encounter[ICD10: S60.511A] 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] Coleen DENNISONQUELINE SusuKarol TRELL [employer] [facility] CPT-4: 56596 07/27/2017 OFFICE/OUTPATIENT SIT EST 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] Diagnosis: Tinea pedis[ICD10: B35.3] Coleen DENNISONQUELINE Sus[employer] TRE[employer] [facility] CPT-4: 29696 04/05/2017 ([id number]) OFFICE/OUTPA TIENT VISIT EST Diagnosis: DM W/O COMPLICATION TYPE I, 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] Diagnosis: Mixed hyperlipidemia[ICD10: E78.2] Diagnosis: Essential (primary) hypertension[ICD10: I10] Galina Chance ROD [facility] CPT-4: 31530 06/20/2016 ([id number]) OFFICE/OUTPA TIENT VISIT EST Diagnosis: Urinary tract infection, site not specified[ICD10: N39.0] Missymilka Dc GALINA Chanec RODCHANDLER [employer] [facility] CPT-4: 84128 02/16/2016 ([id number]) OFFICE/OUTPA TIENT VISIT EST Diagnosis: Type 2 diabetes mellitus with hyperglycemia[ICD10: E11.65] Diagnosis: Cramp and spasm[ICD10: R25.2] Diagnosis: Hematuria, unspecified[ICD10: R31.9] Galina Chance ROD CASANOVA [facility] CPT-4: 77083 12/03/2015 OFFICE/OUTPATIENT SIT EST Diagnosis: Type 2 diabetes mellitus with diabetic neuropathy, unspecified[ICD10: E11.40] Alejandra Chance RODCHANDLER [employer] [facility] CPT-4: 15246 06/24/2015 ([id number]) OFFICE/OUTPA TIENT VISIT EST Diagnosis: Acute sinusitis, unspecified[ICD10: J01.90] Diagnosis: Otitis media, unspecified, bilateral[ICD10: H66.93] Galinamaria luisa ROD NDER DO [facility] CPT-4: 79598 06/11/2015 ([id number]) OFFICE/OUTPA TIENT VISIT EST Diagnosis: DM W/O COMPLICATION TYPE I[ICD9: 250.01] Diagnosis: HYPERTENSION[ICD9: 401.9] Diagnosis: HYPERLIPIDEMIA NEC/NOS[ICD9: 272.4] Diagnosis: KIDNEY TRANSPLANT STATUS[ICD9: V42.0] Galina ROD NDER DO [facility] CPT-4: 82375 07/17/2014 ([id number]) OFFICE/OUTPA TIENT VISIT EST Diagnosis: DM W/O COMPLICATION TYPE I[ICD9: 250.01] Diagnosis: HYPERTENSION[ICD9: 401.9] Galina SMITH [facility] CPT-4: 06874 10/31/2013 ([id number]) OFFICE/OUTPA TIENT VISIT EST Diagnosis: DM W/O COMPLICATION TYPE II[ICD9: 250.00] Diagnosis: HYPERTENSION[ICD9: 401.9] Diagnosis: HYPERLIPIDEMIA NEC/NOS[ICD9: 272.4] Galina ROD NDER DO [facility] CPT-4: 51373 08/01/2013 OFFICE/OUTPATIENT SIT EST Diagnosis: HEMATURIA NOS[ICD9: 599.70] Diagnosis: Abdominal pain, acute, right lower quadrant[ICD9: 789.03] Diagnosis: KIDNEY TRANSPLANT STATUS[ICD9: V42.0] Alejandra Billy GALINA Cristobal. O ROB DO [facility] CPT-4: 80983 07/30/2013 ([id number]) OFFICE/OUTPA TIENT VISIT EST Diagnosis: Uncontrolled hypertension[ICD9: 401.9] Diagnosis: BRIEF DEPRESSIVE REACT[ICD9: 309.0] Galina ROD NDER DO [facility] CPT-4: 42282 05/30/2013 ([id number]) OFFICE/OUTPA TIENT VISIT EST Diagnosis: HYPERTENSION[ICD9: 401.9] Diagnosis: Anticipatory grieving[ICD9: 309.0] Galina ROD NDER DO [facility] CPT-4: 72393 04/29/2013 ([id number]) OFFICE/OUTPA TIENT VISIT EST Diagnosis: DM W/O COMPLICATION TYPE II, UNCONTROLLED[ICD9: 250.02] Diagnosis: HYPERTENSION[ICD9: 401.9] Diagnosis: HYPOTHYROIDISM[ICD9: 244.9] Diagnosis: KIDNEY TRANSPLANT STATUS[ICD9: V42.0] Galina Bernaltorri GALINA SusuKarol ROD [employer] [employer] [facility] CPT-4: 14287 02/27/2013 OFFICE/OUTPATIENT SIT EST Diagnosis: Paronychia[ICD9: 681.9] Diagnosis: ONYCHOMYCOSIS[ICD9: 110.1] Viky Dave ASENCIO [employer] TRE[employer] [facility] CPT-4: 98566 01/01/2013 ([id number]) OFFICE/OUTPA TIENT VISIT EST Diagnosis: DM W/O COMPLICATION TYPE II, UNCONTROLLED[ICD9: 250.02] Diagnosis: HYPERLIPIDEMIA NEC/NOS[ICD9: 272.4] Diagnosis: HYPERTENSION[ICD9: 401.9] Diagnosis: KIDNEY TRANSPLANT STATUS[ICD9: V42.0] Diagnosis: HYPOTHYROIDISM[ICD9: 244.9] Galinamaria luisa ASENCIO SusuKarol DOLORES [employer] [facility] CPT-4: 70575 11/27/2012 ([id number]) OFFICE/OUTPA TIENT VISIT EST Diagnosis: DM W/O COMPLICATION TYPE II[ICD9: 250.00] Diagnosis: HYPOTHYROIDISM[ICD9: 244.9] Diagnosis: HYPERLIPIDEMIA NEC/NOS[ICD9: 272.4] Diagnosis: HYPERTENSION[ICD9: 401.9] Galina Rodranjanatorri GALINA SusuKarol TRELL [employer] [facility] CPT-4: 39075 08/28/2012 ([id number]) OFFICE/OUTPA TIENT VISIT EST Diagnosis: HYPOTHYROIDISM[ICD9: 244.9] Diagnosis: DM W/O COMPLICATION TYPE II, UNCONTROLLED[ICD9: 250.02] Diagnosis: HYPERLIPIDEMIA NEC/NOS[ICD9: 272.4] Diagnosis: KIDNEY TRANSPLANT STATUS[ICD9: V42.0] Diagnosis: HYPERTENSION[ICD9: 401.9] Galina ASENCIO SusuKarol TRELL [employer] [facility] CPT-4: 14629 08/20/2012 OFFICE/OUTPATIENT SIT EST Diagnosis: DM W/O COMPLICATION TYPE II, UNCONTROLLED[ICD9: 250.02] Diagnosis: HYPERTENSION[ICD9: 401.9] Galina ASENCIO SusuKarol TRELL [facility] CPT-4: 38466 07/03/2012 OFFICE/OUTPATIENT SIT EST Diagnosis: DM W/O COMPLICATION TYPE II, UNCONTROLLED[ICD9: 250.02] Diagnosis: HYPERTENSION[ICD9: 401.9] Galina SMITH [facility] CPT-4: 59665 06/21/2012 OFFICE/OUTPATIENT SIT EST Diagnosis: DM W/O COMPLICATION TYPE II, UNCONTROLLED[ICD9: 250.02] Diagnosis: HYPERTENSION[ICD9: 401.9] Diagnosis: HYPERLIPIDEMIA NEC/NOS[ICD9: 272.4] Diagnosis: KIDNEY TRANSPLANT STATUS[ICD9: V42.0] Galina ARTEAGA [facility] CPT-4: 25444 05/30/2012 ([id number]) OFFICE/OUTPA TIENT VISIT EST Diagnosis: HYPERTENSION[ICD9: 401.9] Diagnosis: VISUAL DISTURBANCE[ICD9: 368.9] Galina SMITH [facility] CPT-4: 31902 05/21/2012 ([id number]) OFFICE/OUTPA TIENT VISIT EST Diagnosis: HYPERTENSION[ICD9: 401.9] Diagnosis: HYPOTHYROIDISM[ICD9: 244.9] Diagnosis: KIDNEY TRANSPLANT STATUS[ICD9: V42.0] Galina ARTEAGA [facility] CPT-4: 61499 01/24/2012 OFFICE/OUTPATIENT SIT EST Diagnosis: DIZZINESS/VERTIGO[ICD9: 780.4] Diagnosis: HYPERTENSION[ICD9: 401.9] [facility]: 43763 09/21/2011 ([id number]) OFFICE/OUTPA TIENT VISIT EST Diagnosis: HYPERTENSION[ICD9: 401.9] Diagnosis: HYPOTHYROIDISM[ICD9: 244.9] Diagnosis: HYPERLIPIDEMIA NEC/NOS[ICD9: 272.4] Diagnosis: KIDNEY TRANSPLANT STATUS[ICD9: V42.0] Galina ARTEAGA [facility] CPT-4: 11875 09/12/2011 OFFICE/OUTPATIENT SIT EST Diagnosis: HYPOTHYROIDISM[ICD9: 244.9] Diagnosis: HYPERTENSION[ICD9: 401.9] Diagnosis: CEPHALGIA[ICD9: 784.0] Galina SMITH DO [employer] CPT-4: 14308 06/14/2011 OFFICE/OUTPATIENT SIT EST Diagnosis: HYPERTENSION[ICD9: 401.9] Diagnosis: PHARYNGITIS, ACUTE[ICD9: 462] Diagnosis: HYPOTHYROIDISM[ICD9: 244.9] Galina SMITH DO [facility] CPT-4: 99275 03/03/2011 OFFICE/OUTPATIENT SIT EST Diagnosis: HYPOTHYROIDISM[ICD9: 244.9] Diagnosis: KIDNEY TRANSPLANT STATUS[ICD9: V42.0] Diagnosis: HYPERTENSION[ICD9: 401.9] Diagnosis: SINUSITIS, ACUTE[ICD9: 461.9] Galina SMITH DO [facility] CPT-4: 93310 01/27/2011 ([id number]) OFFICE/OUTPA TIENT VISIT EST Galina ARTEAGA DO [employer] CPT-4: 78266 12/02/2010 Plan of Care Planned Activity Notes C odes Status Date Appointment: [facility] [phone] [facility] [facility] 08/24/2018 App[facility]ment: [facility] [phone] [facility] [facility] 06/29/2018 Visit Diagnosis Plan: Epigastric [...] had labs done in dec at [facility]. will obtain lab results and order additional labs as needed. ICD-9 : 250.02 ICD-10 : E11.65 06/26/2018 Appointment: Coleen Frey [address] [facility] ACUTE ILLNESS 06/26/2018 Visit Diagnosis [...] : R10.31 02/06/2018 Appointment: Coleen Frey [address] [facility] ACUTE ILLNESS 02/06/2018 Patient Education: [...] ICD-10 : E11.65 11/02/2017 Appointment: Coleen Frey [address] [place], [place] [id number] FOLLOW UP 11/02/2017 Patient Education: Patient Medication Summary Completed 11/02/2017 Visit Diagnosis Plan: Abrasion of right hand, initial encounter Discussion: keflex prescribed for infect ion. instructed patient to call or rtc next week if no improvement. keep area clean and dry. ICD-9 : 914.0 ICD-10 : S60.511A 07/27/2017 Visit Diagnosis Plan: Encounter for [facility] adult medical examination with abnormal findings [...] : E11.59 07/27/2017 Appointment: Coleen Frey [address] [facility] Annual Well Visit 07/27/2017 Patient Education: [...] ICD-10 : B35.3 04/05/2017 Appointment: Coleen Frey [address] [place], [place] [id number] FOLLOW UP 04/05/2017 Patient Education: Patient Medication Summary Completed 04/05/2017 Patient Education: Patient Medication Summary Completed 04/05/2017 Care Plan: CBC Pending 04/05/2017 Care Plan: LIPID PANEL LOINC : 59358-2 Pending 04/05/2017 Care Plan: COMPREHEN METABOLIC PANEL LOINC : 70531-5 Pending 04/05/2017 Visit Plan: Patient admits that [...] given 06/20/2016 Appointment: Galina Smith WPtel: [phone] [facility] 06/16 lm-sp / lm ~sl FOLLOW UP 06/20/2016 Patient Education: Patient Medication Summary Completed 06/20/2016 Patient Education: Patient Medication Summary Completed 05/04/2016 Care Plan: COMPREHEN METABOLIC PANEL LOINC : 01524-0 Pending 05/04/2016 Care Plan: CBC Pending 05/04/2016 Care Plan: LIPID PANEL LOINC : 48516-7 Pending 05/04/2016 Care Plan: A1C HPLC LO INC : 94985-1 Pending 05/04/2016 Visit Plan: Discussed with Dr Bernal er Treatment as above while awaiting specialist to return his call Push fluids Follow up celine if not improving 02/16/2016 Visit Plan: Discussed with Dr Bernal er Treatment as above while awaiting specialist to return his call Push fluids Follow up [place]eline if not improving 02/16/2016 Appointment: Missy cD [phone] ACUTE ILLNESS 02/16/2016 Patient Education: Patient [...] as well 12/03/2015 Appointment: Galina Smith WPtel: [facility] [address] ACUTE ILLNESS 12/03/2015 Patient Education: Patient Medication Summary Completed 12/03/2015 Visit Plan: Labs completed this am in [place] but do not have results yet. Start Lyrica 75mg PO bid Will Call in a week and let know if pain is improved. 06/24/2015 Visit Plan: Labs completed this am in [place] but do not have results yet. Start Lyrica 75mg PO bid Will Call in a week and let know if pain is improved. 06/24/2015 Appointment: Alejandra Billy WPtel: [address] [place] [address] ACUTE ILLNESS 06/24/2015 Patient Education: Patient Medication Summary Completed 06/24/2015 Patient Education: Lyrica - 18+ - No MA NE Completed 06/24/2015 Visit Plan: Saline nasal flushes pr n. Tylenol/Motrin prn headache. Notify if persists/symptoms worsening. Obtain most recent lab Warned of increased BS with prednisone--has sliding scale to use 06/11/2015 Appointment: Galina Smith WPtel: [address] [place], [place] [phone] 06/10/15 cn....06/10/15 appt confirme d cn Annual Well Visit 05/14 Patient Education: Patient Medication Summary Completed 06/11/2015 Appointment: Galina Smith WPtel: [address] [place] [address] FOLLOW UP 10/15/2014 Patient Education: Patient Medication Summary Completed 09/03/2014 Care Plan: COMPREHEN METABOLIC PANEL LOINC : 40475-0 Ordered 09/03/2014 Visit Plan: Obtain most recent lab results Will likely need HbA1C and Lipids if were not done Accuchecks q AC and HS 07/17/2014 Appointment: Galina Smith WPtel: [address] [place], [place] [phone] FOLLOW UP 07/17/2014 Patient Education: Patient Medication Summary Completed 07/17/2014 Appointment: Galina Smith WPtel: [address] [place], [place] [phone] 01/29 01/30 NO SHOW FOLLOW UP 01/30/2014 Visit Plan: Check CMP, HbA1C, CBC, Lipids Pt sees transplant doctor next month Pt is currently just using insulin prn and monitering BS 10/31/2013 Appointment: Galina Smithl: [address] [place], [place] [phone] FOLLOW UP 10/31/2013 Patient Education: Patient Medication Summary Completed 10/31/2013 Visit Plan: Continue current meds a nd acuchecks 08/01/2013 Appointment: Galina Smith WPtel: [address] [place], [place] [phone] 07/31 FOLLOW UP 08/01/2013 Patient Education: Patient Medication Summary Completed 08/01/2013 Visit Plan: CBC, CMP, CRP To [facility] for CT abdomen/Pelvis w/o contrast 07/30/2013 Appointment: Alejandra Billy WPtel: [address] [place], [place] [id number] ACUTE ILLNESS 07/30/2013 Patient Education: Patient Medication Summary Completed 07/30/2013 Visit Plan: Restart Ken--pt says needs PA Continue fluoxetine at 20mg daily 05/30/2013 Appointment: Galina Smith WPtel: [address] [place], [place] [id number] FOLLOW UP 05/30/2013 Patient Education: Patient Medication Summary Completed 05/30/2013 Appointment: Galina Smith WPtel: [address] [place], [place] [phone] [place] has appt following day FOLLOW UP 05/29/2013 Visit Plan: Restart Ken and Amlo dopine as has been out--new rx sent out Trial of Fluoxetine 20mg q AM Stress Reducers 04/29/2013 Appointment: Galina Smith WPtel: [address] [place], [place] [phone] 04/26 MOM made appt. confirmed monday ACUTE ILLNESS 04/29/2013 Patient Education: Patient Medication Summary Completed 04/29/2013 Visit Plan: Continue current meds a nd accuchecks Pt going for fasting lab next month 02/27/2013 Appointment: Galina Smith WPtel: [address] [place], [place] [phone] FOLLOW UP 02/27/2013 Patient Education: Patient Medication Summary Completed 02/27/2013 Appointment: Viky Acosta WPtel: [address] [place], [place] [id number] ACUTE ILLNESS 01/01/2013 Patient Education: Patient Medication Summary Completed 01/01/2013 Visit Plan: Continue current meds C heck fasting lab next week 11/27/2012 Appointment: Galina Smith WPtel: [address] [place], [place] [phone] FOLLOW UP 11/27/2012 Patient Education: Patient Medication Summary Completed 11/27/2012 Visit Plan: Lab discussed Continue current meds and accuchecks Pt sees transplant doctor in in October Check fasting lab and fwup in 3mos 08/28/2012 Appointment: Galina Smith WPtel: [address] [place] [address] 08/27 FOLLOW UP 08/28/2012 Patient Education: Patient Medication Summary Completed 08/28/2012 Appointment: Galina Smith WPtel: [address] [place], [place] [phone] LAB 08/20/2012 Patient Education: Patient Medication Summary Completed 08/20/2012 Visit Plan: Continue levemir at cur rent dose with accuchecks Use apidra with sliding scale Check Chem 7 and HbA1C in 2mos 07/03/2012 Appointment: Galina Smith WPtel: [address] [place], [place] [phone] 07/02 vm FOLLOW UP 07/03/2012 Patient Education: [...] 320mg daily 06/21/2012 Appointment: Galina Smith WPtel: [address] [place], [place] [phone] ACUTE ILLNESS 06/21/2012 Patient Education: Patient Medication Summary Completed 06/21/2012 Visit Plan: Increase Levemir to 75 u sc q PM Continue sliding scale insulin with accuchecks q AC and HS Call in 1wk with BS readings 05/30/2012 Appointment: Galina Smith WPtel: [address] [place], [place] [id number] Hospital Follow Up 05/30/2012 Patient Education: Patient Medication Summary Completed 05/30/2012 Appointment: Galina Smith WPtel: [address] [place], [place] [id number] 05/21 - cancelled appointment for 05/22 because PT was worked in on 05/21 FOLLOW UP 05/22/2012 Visit Plan: Obtain lab done last mo from [facility] See optometry for dilated eye exam and eye pressures today May need CT head pending results of eye evaluation 05/21/2012 Appointment: Galina Smith WPtel: [address] [place], [place] [phone] WORK IN 05/21/2012 Appointment: Galina Smith WPtel: [address] [place], [place] [phone] LAB 05/21/2012 Patient Education: Patient Medication Summary Completed 05/21/2012 Visit Plan: Continue current meds O btain most recent lab done at [facility] See eye doctor today for dilated exam and eye pressures May need CT head pending dilated eye exam results 01/24/2012 Visit Plan: Continue current meds O btain most recent lab done at [facility] 01/24/2012 Visit Plan: Continue current meds C heck CBC, CMP, TSH, Free T4 01/24/2012 Appointment: Galina Smith WPtel: [address] [place], [place] [phone] [facility] 01/24/2012 Patient Education: Patient Medication Summary Completed 01/24/2012 Visit Plan: Decrease Norvasc to 2.5 mg daily Check CBC, CMP, TSH, Free T4 09/21/2011 Appointment: Galina Smith WPtel: [address] [place] [address] ACUTE ILLNESS 09/21/2011 Patient Education: Patient Medication Summary Completed 09/21/2011 Visit Plan: Continue Diovan at curr ent dose Add amlodopine Check Lipids/LFTs with next lab 09/12/2011 Appointment: Galina Smith WPtel: [address] [place] [address] FOLLOW UP 09/12/2011 Patient Education: Patient Medication Summary Completed 09/12/2011 Visit Plan: Increase Diovan to 320m g po daily Check TSH and Free T4 with kidney lab next week 06/14/2011 Appointment: Galina Smith WPtel: [address] [place] [address] FOLLOW UP 06/14/2011 Patient Education: Patient Medication Summary Completed 06/14/2011 Visit Plan: Z-pack then new tootheb ivory Start Diovan 03/03/2011 Appointment: Galina Smith WPtel: [address] [place] [address] ACUTE ILLNESS 03/03/2011 Patient Education: Patient Medication Summary Completed 03/03/2011 Visit Plan: Check TSH, Free T4 toda y Pt will moniter BP at home See if treatment of sinuses helps headaches 01/27/2011 Appointment: Galina Smith WPtel: [address] [place] [address] FOLLOW UP 01/27/2011 Patient Education: Patient Medication Summary Completed 01/27/2011 Visit Plan: Continue current meds a nd proceed with lab per kidney transplant doctor Start Synthroid at 50mcg po daily 12/02/2010 Appointment: Galina Smith WPtel: [address] [place] [address] FOLLOW UP 12/02/2010 Patient Education: Patient Medication Summary Completed 12/02/2010 Appointment: Galina Smith WPtel: [id number] [place] Suture Removal 10/20/2009 Patient Education: Patient [...] Obtain lab done la [facility] mo from [facility] See optometry for dilated eye exam and [...] eds Obtain most recent lab done at [facility] See eye doctor today for dilated exam and eye pressures May need CT head pending dilated eye exam results . Continue current m eds Obtain most recent lab done at [facility] . Continue current m eds Check CBC, CMP, TSH, Free T4 . Continue current m eds and accuchecks Pt going for fasting lab next month . Check TSH, Free T4 today Pt will moniter BP at home See if treatment of sinuses helps headaches . CBC, CMP, CRP To [facility] for CT abdomen/Pelvis w/o contrast . [...] Labs completed thi s am in [facility] but do not have results yet. Start Lyrica 75mg PO bid Will Call in a week and let know if pain is improved. . Labs completed thi s am in [facility] but do not have results yet. Start Lyrica 75mg PO bid Will Call in a week and let know if pain is improved. . Restart Diovan and Amlodopine as has been out--new rx sent out Trial of Fluoxetine 20mg q AM Stress Reducers
--- OUTSIDE RECORDS SUMMARY | 2019-08-21 00:34 | XMS REPORT | CCD ---
Author Author Cuauhtemoc Smith D.O. Organization [facility] Address [address] [place] [address] Phone Care Team Providers Care Senior Validation Engineer Name Role Phone [facility] D.O., PP Unavailable CCM Unavailable Summary Purpose Interface Exchange Insurance Providers Payer name Policy type / Coverage type Covered alliance party ID Effective Begin Date Effective End Date Blue Cross Blue Shield Blue Cross/Bl ue Shield [id number] 2017 Un known Family History Family History data not found Social History Social History Element Codes Description Effective Dates Tobacco history SNOMED CT: [id number] Currently uses smokeless tobacco 06/14/2011 Allergies, Adverse [...] V42.0 ICD-10: Z94.0 Active 08/24/2018 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 ICD-9: V58.69 ICD-10: [...] ICD-9: V42.0 ICD-10: Z94.0 08/24/2018 Active 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 ICD-9: V58.69 ICD-10: [...] 100 unit/mL (3 mL) subcutaneous pen RxNorm: 475811 90 Unit(s) SQ BID 01/08/2019 04/07/2019 Active Levemir FlexTouch U- 100 Insulin 100 unit/mL (3 mL) subcutaneous pen RxNorm: 489131 90 Unit(s) SQ BID 12/04/2018 12/03/2018 Inactive Levemir FlexTouch U- 100 Insulin 100 unit/mL (3 mL) subcutaneous pen RxNorm: 908581 90 Unit(s) SQ BID 12/04/2018 01/07/2019 Inactive Levemir FlexTouch U- 100 Insulin 100 unit/mL (3 mL) subcutaneous pen RxNorm: 705423 70 Unit(s) SQ BID 10/26/2018 12/04/2018 Inactive Levemir FlexTouch U- 100 Insulin 100 unit/mL (3 mL) subcutaneous pen RxNorm: 695719 GIVE 90 UNITS SUBCUTANEOUSLY TWICE DAILY 10/08/2018 10/26/2018 Inactive Levemir FlexTouch U- 100 Insulin 100 unit/mL (3 mL) subcutaneous pen RxNorm: 888300 90 Unit(s) SQ BID 07/30/2018 10/07/2018 Inactive Levemir FlexTouch U- 100 Insulin 100 unit/mL (3 mL) subcutaneous pen RxNorm: 957572 90 Unit(s) SQ BID 07/06/2018 07/29/2018 Inactive Pen Needle 31 gauge x 5/16" RxNorm: USE DIRECTED 03/21/2018 No Stop Date Active Levemir FlexTouch U- 100 Insulin 100 unit/mL (3 mL) subcutaneous pen RxNorm: 216718 80 Unit(s) SQ BID 02/15/2018 07/06/2018 Inactive Levemir FlexTouch U- 100 Insulin 100 unit/mL (3 mL) subcutaneous pen RxNorm: 085241 INJECT 105 UNITS SUBCUTANEOUSLY IN THE EVENING 01/24/2018 02/15/2018 Inactive Levemir FlexTouch U- 100 Insulin 100 unit/mL (3 mL) subcutaneous pen RxNorm: 775858 INJECT 105 UNITS SUBCUTANEOUSLY IN THE EVENING 12/26/2017 01/23/2018 Inactive Novolog Flexpen U-10 0 Insulin aspart 100 unit/mL subcutaneous RxNorm: 8015006 INJECT SUBCUTANEOUSLY NEEDED PER SLIDING SCALE 12/25/2017 No Stop Date Active Levemir FlexTouch U- 100 Insulin 100 unit/mL (3 mL) subcutaneous pen RxNorm: 727384 70 Unit(s) SQ BID 11/03/2017 11/03/2017 Inactive Levemir FlexTouch U- 100 Insulin 100 unit/mL (3 mL) subcutaneous pen RxNorm: 797684 105 Unit(s) SQ QPM 11/02/2017 11/02/2017 Inactive Levemir FlexTouch U- 100 Insulin 100 unit/mL (3 mL) subcutaneous pen RxNorm: 169798 105 Unit(s) SQ QPM Needs updated labs 11/01/2017 11/01/2017 Inactive Levemir FlexTouch U- 100 Insulin 100 unit/mL (3 mL) subcutaneous pen RxNorm: 572602 Unit(s) 105 Unit(s) SQ QPM 09/18/2017 09/18/2017 Inactive Levemir FlexTouch U- 100 Insulin 100 unit/mL (3 mL) subcutaneous pen RxNorm: 733498 105 Unit(s) SQ QPM 08/07/2017 09/18/2017 Inactive cephalexin 500 mg ca psule RxNorm: 793834 1 Capsule(s) PO BID 07/27/2017 08/02/2017 Inactive Levemir FlexTouch U- 100 Insulin 100 unit/mL (3 mL) subcutaneous pen RxNorm: 214910 105 Unit(s) SQ QPM 06/07/2017 06/07/2017 Inactive Levemir FlexTouch 10 0 unit/mL (3 mL) subcutaneous insulin pen RxNorm: 283430 105 Unit(s) SQ QPM 05/11/2017 06/07/2017 Inactive Lipitor 40 mg tablet RxNorm: 681332 1.5 Tablet(s) PO QD 04/05/2017 10/01/2017 Inactive Diovan 320 mg tablet RxNorm: 900465 1 Tablet(s) PO QD 04/05/2017 03/30/2018 Inactive Lipitor 40 mg tablet RxNorm: 721631 1 Tablet(s) PO QD 04/05/2017 04/04/2017 Inactive nystatin 100,000 uni t/gram topical ointment RxNorm: 547483 1 Gram(s) TOP BID 04/05/2017 05/02/2017 In active Levemir FlexTouch 10 0 unit/mL (3 mL) subcutaneous insulin pen RxNorm: 016918 105 Unit(s) SQ QPM 04/05/2017 04/05/2017 Inactive Levemir FlexTouch 10 0 unit/mL (3 mL) subcutaneous insulin pen RxNorm: 124691 90 Unit(s) SQ QPM LAST REFILL UNTIL LABS AND APPOINTMENT!!!! 04/05/2017 05/11/2017 Inactive Novolog Flexpen 100 unit/mL subcutaneous RxNorm: 7337297 Unit(s) INJECT SUBCU TANEOUSLY NEEDED PER SLIDING SCALE---NEEDS UPDATED LABS 03/07/2017 12/03/2018 Inactive Levemir FlexTouch 10 0 unit/mL (3 mL) subcutaneous insulin pen RxNorm: 896033 90 Unit(s) SQ QPM LAST REFILL UNTIL LABS AND APPOINTMENT!!!! 02/17/2017 03/18/2017 Inactive Levemir FlexTouch 10 0 unit/mL (3 mL) subcutaneous insulin pen RxNorm: 629865 90 Unit(s) SQ QPM NEEDS FASTING LABS AND APPOINTMENT BEFORE FURTHER REFILLS 12/22/2016 02/17/2017 In active Novolog Flexpen U-10 0 Insulin aspart 100 unit/mL subcutaneous RxNorm: 1917897 Unit(s) INJECT SUBCUTANEOUSLY NEEDED PER SLIDING SCALE---NEEDS UPDATED LABS 11/28/2016 03/07/2017 Inactive Levemir FlexTouch 10 0 unit/mL (3 mL) subcutaneous insulin pen RxNorm: 298200 90 Unit(s) VAG QPM 11/08/2016 12/22/2016 Inactive Levemir FlexTouch 10 0 unit/mL (3 mL) subcutaneous insulin pen RxNorm: 567702 90 Unit(s) VAG QPM 11/08/2016 12/21/2016 Inactive Levemir FlexTouch 10 0 unit/mL (3 mL) subcutaneous insulin pen RxNorm: 776266 80 Unit(s) VAG QPM 09/05/2016 11/08/2016 Inactive Levemir FlexTouch 10 0 unit/mL (3 mL) subcutaneous insulin pen RxNorm: 632113 85 Unit(s) SQ QD 07/22/2016 09/05/2016 Inactive Levemir FlexTouch 10 0 unit/mL (3 mL) subcutaneous insulin pen RxNorm: 451698 85 Unit(s) SQ QD 07/04/2016 07/21/2016 Inactive Levemir FlexTouch 10 0 unit/mL (3 mL) subcutaneous insulin pen RxNorm: 496888 85 Unit(s) SQ QD 06/14/2016 06/19/2016 Inactive Levemir FlexTouch 10 0 unit/mL (3 mL) subcutaneous insulin pen RxNorm: 843084 85 Unit(s) SQ QD 05/03/2016 05/22/2016 Inactive Levemir FlexTouch 10 0 unit/mL (3 mL) subcutaneous insulin pen RxNorm: 700956 85 Unit(s) SQ QD 05/03/2016 05/02/2016 Inactive Levemir FlexTouch 10 0 unit/mL (3 mL) subcutaneous insulin pen RxNorm: 461088 85 Unit(s) SQ QD 03/14/2016 04/22/2016 Inactive cefuroxime axetil 25 0 mg tablet RxNorm: 548881 1 Tablet(s) PO BID 02/16/2016 02/25/2016 Inactive Levemir FlexTouch 10 0 unit/mL (3 mL) subcutaneous insulin pen RxNorm: 279208 85 Unit(s) SQ QD 02/03/2016 03/13/2016 Inactive Levemir FlexTouch 10 0 unit/mL (3 mL) subcutaneous insulin pen RxNorm: 555461 85 Unit(s) SQ QD 12/07/2015 02/02/2016 Inactive Pen Needle 31 gauge x 5/16" RxNorm: USE DIRECTED 11/19/2015 05/16/2016 Inactive Levemir FlexTouch 10 0 unit/mL (3 mL) subcutaneous insulin pen RxNorm: 603040 INJECT 75 UNITS SUBCUTANEOUSLY ONCE DAILY; NEED LABS AND APPT 10/06/2015 12/04/2015 Inactive Novolog Flexpen 100 unit/mL subcutaneous RxNorm: 8327413 INJECT SUBCUTANEOUSL Y NEEDED PER SLIDING SCALE 09/15/2015 11/28/2016 Inactive Levemir FlexTouch 10 0 unit/mL (3 mL) subcutaneous insulin pen RxNorm: 267198 75 Unit(s) SQ QD Needs lab and appointment 07/13/2015 10/05/2015 Inactive Lyrica 75 mg capsule RxNorm: 529605 1 Capsule(s) PO BID 06/24/2015 07/23/2015 Inactive Levemir FlexTouch 10 0 unit/mL (3 mL) subcutaneous insulin pen RxNorm: 419932 75 Unit(s) SQ QD Needs lab and appointment 06/23/2015 07/12/2015 Inactive Novolog Flexpen 100 unit/mL subcutaneous RxNorm: 9120680 Unit(s) SQ as needed Sliding scale 06/15/2015 09/14/2015 Inactive Flonase Allergy Reli ef 50 mcg/actuation nasal spray,suspension RxNorm: 2 [place] NASAL QHS 06/11/2015 12/02/2015 Inactive prednisone 20 mg tablet RxNorm: 483625 1 Tablet(s) PO TID for 3 days then 1 po BID for 3 days then one daily for 3 days 06/11/2015 12/02/2015 Inactive cefdinir 300 mg capsule RxNorm: 571159 2 Capsule(s) PO QD 06/11/2015 06/24/2015 Inactive Levemir FlexTouch 10 0 unit/mL (3 mL) subcutaneous insulin pen RxNorm: 677321 75 Unit(s) SQ QD Needs lab and appointment 05/29/2015 06/22/2015 Inactive Novolog 100 unit/mL subcutaneous solution RxNorm: 519508 Unit(s) SQ Inject as directed using sliding scale B 05/29/2015 12/03/2018 Inactive Levemir Flexpen 100 unit/mL (3 mL) solution subcutaneous insulin pen RxNorm: 363078 INJECT 75 UNITS SUBCUTANEOUSLY EVERY DAY 05/11/2015 05/29/2015 Inactive Levemir FlexTouch 10 0 unit/mL (3 mL) subcutaneous insulin pen RxNorm: 705189 75 Unit(s) SQ QHS 03/30/2015 12/03/2018 Inactive Levemir FlexTouch 10 0 unit/mL (3 mL) subcutaneous insulin pen RxNorm: 133821 75 Unit(s) SQ QHS 03/09/2015 03/29/2015 Inactive Contour Test Strips RxNorm: Miscellaneous 01/27/2015 No Stop Date Active Novolog 100 unit/mL subcutaneous solution RxNorm: 161324 Unit(s) SQ Inject as directed using sliding scale B 01/27/2015 05/29/2015 Inactive Levemir Flexpen 100 unit/mL (3 mL) solution subcutaneous insulin pen RxNorm: 920642 INJECT 75 UNITS SUBCUTANEOUSLY EVERY DAY 11/05/2014 03/09/2015 Inactive Levemir Flexpen 100 unit/mL (3 mL) solution subcutaneous insulin pen RxNorm: 550292 INJECT 75 UNITS SUBCUTANEOUSLY EVERY DAY 08/13/2014 10/31/2014 Inactive Novolog 100 unit/mL subcutaneous solution RxNorm: 797751 Unit(s) SQ Inject as directed using sliding scale B 07/15/2014 01/26/2015 Inactive Apidra SoloStar 100 unit/mL subcutaneous insulin pen RxNorm: 177539 Unit(s) SQ INJECT DIRECTED USING SLIDING SCALE B 07/11/2014 07/14/2014 Inactive Diovan 320 mg tablet RxNorm: 930082 1 Tablet(s) PO QD 06/10/2014 06/04/2015 Inactive Apidra SoloStar 100 unit/mL subcutaneous insulin pen RxNorm: 707705 Unit(s) SQ INJECT DIRECTED USING SLIDING SCALE B 04/18/2014 07/10/2014 Inactive Levemir Flexpen 100 unit/mL (3 mL) solution subcutaneous insulin pen RxNorm: 188045 Unit(s) SQ INJECT 75 UNITS SUBCUTANEOUSLY EVERY DAY 02/28/2014 02/27/2014 Inactive [SAVINGS FOR UNINSURED PATIENTS -- BIN:[id number], PCN: [id number], Group: [id number], ID# [id number], Process claim through [employer], for questions: . THIS IS NOT INSURANCE.] Apidra SoloStar 100 unit/mL subcutaneous insulin pen RxNorm: 775886 Unit(s) SQ INJECT DIRECTED USING SLIDING SCALE B 09/05/2013 04/17/2014 Inactive Pen Needle 31 gauge x 5/16" RxNorm: Miscellaneous USE DIRECT ED WITH LEVEMIR AND APIDRA 08/23/2013 11/18/2015 Inactive Prograf 1 mg capsule RxNorm: 525312 2 Capsule(s) PO BID Generic OK to fill 08/21/2013 No Stop Date Active Diovan 320 mg tablet RxNorm: 989051 1 Tablet(s) PO QD 05/30/2013 05/24/2014 Inactive fluoxetine 20 mg tablet RxNorm: 753671 1 Tablet(s) PO QAM 05/30/2013 07/31/2013 Inactive amlodipine 5 mg tablet RxNorm: 032906 1 Tablet(s) PO QD 04/29/2013 04/23/2014 Inactive fluoxetine 20 mg tablet RxNorm: 243265 1 Tablet(s) PO QAM 04/29/2013 05/29/2013 Inactive ketoconazole 2 % top ical cream RxNorm: 898250 Application TOP BID f or 2-4wks 04/29/2013 05/12/2013 In active Diovan 320 mg tablet RxNorm: 033561 1 Tablet(s) PO QD 04/29/2013 06/10/2014 Inactive Apidra SoloStar 100 unit/mL subcutaneous insulin pen RxNorm: 965604 Unit(s) SQ Sliding Scale B 02/19/2013 09/05/2013 Inactive Levemir Flexpen 100 unit/mL (3 mL) solution subcutaneous insulin pen RxNorm: 377744 Insulin Pen SQ INJECT 75 UNITS SUBCUTANEOUSLY EVERY DA Y 01/21/2013 02/28/2014 Inactive Septra DS 800 mg-160 mg tablet RxNorm: 515005 1 Tablet(s) PO BID an tibiotic 01/01/2013 01/07/2013 In active ketoconazole 2 % top ical cream RxNorm: 826071 1 Application TOP BID 01/01/2013 01/14/2013 Inactive Levemir Flexpen 100 unit/mL (3 mL) Sub-Q Insulin Pen RxNorm: 666122 Unit(s) SQ INJECT 75 UNITS SUB-Q ONCE A DAY 12/07/2012 No Stop Date Active Levemir Flexpen 100 unit/mL (3 mL) Sub-Q Insulin Pen RxNorm: 799763 Unit(s) SQ INJECT 75 UNITS SUB-Q ONCE A DAY 10/22/2012 12/07/2012 Inactive Levemir Flexpen 100 unit/mL (3 mL) Sub-Q Insulin Pen RxNorm: 986319 75 Unit(s) SQ QHS 08/20/2012 10/22/2012 Inactive Diovan 320 mg tablet RxNorm: 447956 1 Tablet(s) PO QD 07/30/2012 04/28/2013 Inactive Levemir Flexpen 100 unit/mL (3 mL) Sub-Q Insulin Pen RxNorm: 247749 Insulin Pen SQ INJECT 75 UNITS SUB-Q ONCE A DAY 07/30/2012 10/21/2012 Inactive Levemir Flexpen 100 unit/mL (3 mL) Sub-Q Insulin Pen RxNorm: 448682 75 Unit(s) SQ QHS 07/30/2012 08/19/2012 Inactive Levemir Flexpen 100 unit/mL (3 mL) Sub-Q Insulin Pen RxNorm: 568420 75 Unit(s) SQ QHS 07/30/2012 07/29/2012 Inactive Diovan 320 mg tablet RxNorm: 987018 1 Tablet(s) PO QD 06/21/2012 06/20/2012 Inactive Diovan 320 mg tablet RxNorm: 031776 1 Tablet(s) PO QD 06/21/2012 06/20/2012 Inactive Diovan 320 mg tablet RxNorm: 977660 1 Tablet(s) PO QD 06/21/2012 07/29/2012 Inactive CellCept 250 mg capsule RxNorm: 489246 4 Capsule(s) PO BID 06/14/2012 06/20/2012 Inactive Prograf 1 mg capsule RxNorm: 873730 2 Capsule(s) PO BID Generic OK to fill 06/14/2012 06/20/2012 In active Apidra SoloStar 100 unit/mL Sub-Q Insulin Pen RxNorm: 120417 Unit(s) SQ Sliding Sc supriya B 06/13/2012 12/03/2018 Inactive Levemir Flexpen 100 unit/mL (3 mL) Sub-Q Insulin Pen RxNorm: 401773 75 Unit(s) SQ QD 06/13/2012 No Stop Date Active Apidra SoloStar 100 unit/mL Sub-Q Insulin Pen RxNorm: 141578 Unit(s) SQ Sliding Sc supriya B 06/13/2012 No Stop Date Active One Touch Delkaren Adeel cets RxNorm: Miscellaneous 0 06/13/2012 04/04/2017 Inactive Lipitor 40 mg tablet RxNorm: 325606 1 Tablet(s) PO QD 05/30/2012 08/27/2012 Inactive Diovan 320 mg tablet RxNorm: 023635 1 Tablet(s) PO QD 05/30/2012 06/20/2012 Inactive Tricor 145 mg tablet RxNorm: 584123 1 Tablet(s) PO QD 05/30/2012 08/27/2012 Inactive Lipitor 20 mg Tab RxNorm: 075453 1 Tablet(s) PO QD 09/12/2011 05/29/2012 Inactive Synthroid 50 mcg Tab RxNorm: 370533 1 Tablet(s) PO QD 09/12/2011 12/02/2015 Inactive Diovan 320 mg tablet RxNorm: 198355 1 Tablet(s) PO QD 09/12/2011 03/09/2012 Inactive amlodipine 5 mg tablet RxNorm: 670092 1 Tablet(s) PO QD 09/12/2011 03/09/2012 Inactive Diovan 320 mg Tab RxNorm: 023733 1 Tablet(s) PO QD 06/14/2011 09/11/2011 Inactive Diovan 160 mg Tab RxNorm: 902891 1 Tablet(s) PO QD 03/03/2011 06/13/2011 Inactive cefdinir 300 mg Cap RxNorm: 631505 2 Capsule(s) PO QD 01/27/2011 02/05/2011 Inactive Synthroid 50 mcg Tab RxNorm: 475160 1 Tablet(s) PO QD 12/02/2010 01/30/2011 Inactive Multivitamin & [place] al Formula Tab RxNorm: 1 Tablet(s) PO QD No Start Date Active Miralax 17 gram/dose oral powder RxNorm: 354023 PO BID in 6-8 ounces of water No Start Date Active Tylenol Extra Streng th 500 mg tablet RxNorm: 650621 Tablet(s) PO as neede d No Start Date Active Tricor Oral RxNorm: Oral No Start Date 05/29 Inactive MagOx 400 mg tablet RxNorm: 358778 1 Tablet(s) PO QD No Start Date 06/19/2016 Inactive sodium bicarbonate Oral RxNorm: Oral No Start Date 06/19/2016 Inactive Fish Oil 1,000 mg ca psule RxNorm: 1 Capsule(s) PO QD No Start Date 04/04/2017 Inactive Novofine Misc RxNorm: Miscellaneous No Start Date 06/12/2012 Inactive Percocet 5 mg-325 mg tablet RxNorm: 4103175 Tablet(s) PO as need ed Dr Parson No Start Date 04/04/2017 Inactive Contour Test Strips RxNorm: miscellaneous No Start Date 01/26/2015 Inactive Prograf 1 mg capsule RxNorm: 416197 2 Capsule(s) PO BID No Start Date 06/13/2012 Inactive Zantac 150 mg Tab RxNorm: 636692 Tablet(s) PO PRN No Start Date 12/02/2015 Inactive Levemir FlexTouch 10 0 unit/mL (3 mL) subcutaneous insulin pen RxNorm: 108991 75 Unit(s) SQ QHS No Start Date 03/08/2015 Inactive CellCept 250 mg capsule RxNorm: 122309 4 Capsule(s) PO BID No Start Date 06/13/2012 Inactive Novolog 100 unit/mL subcutaneous solution RxNorm: 865083 Unit(s) SQ Inject as directed using sliding scale B No Start Date 07/14/2014 Inactive Novolog Flexpen 100 unit/mL subcutaneous RxNorm: 2843759 Unit(s) SQ as needed Sliding scale No Start Date 06/14/2015 Inactive Apidra SoloStar 100 unit/mL Sub-Q Insulin Pen RxNorm: 705584 Unit(s) SQ Sliding Sc supriya B No Start Date 06/12/2012 Inactive Levemir FlexTouch U- 100 Insulin 100 unit/mL (3 mL) subcutaneous pen RxNorm: 577315 70 Unit(s) SQ BID No Start Date 02/06/2018 Inactive Pen Needle 31 X 5/16" RxNorm: Miscellaneous No Start Date 08/23/2013 Inactive Synthroid 50 mcg Tab RxNorm: 507918 1 Tablet(s) PO QD No Start Date 09/11/2011 Inactive Levemir Flexpen 100 unit/mL (3 mL) Sub-Q Insulin Pen RxNorm: 448450 70 Unit(s) SQ QHS No Start Date 07/29/2012 Inactive Levemir FlexTouch U- 100 Insulin 100 unit/mL (3 mL) subcutaneous pen RxNorm: 769488 80 Unit(s) SQ BID No Start Date 02/14/2018 Inactive Levemir FlexTouch 10 0 unit/mL (3 mL) subcutaneous insulin pen RxNorm: 920432 80 Unit(s) SQ QPM No Start Date 09/04/2016 Inactive Lipitor 40 mg tablet RxNorm: 612466 1 Tablet(s) PO QD No Start Date 04/04/2017 Inactive Ultram 50 mg tablet RxNorm: 268160 2 Tablet(s) PO TID as needed for pain No Start Date 06/10/2015 Inactive Prograf 1 mg Cap RxNorm: 205921 2 Capsule(s) PO BID No Start Date 05/20/2012 Inactive insulin needles (dis posable) 32 x 5/16" RxNorm: Miscellaneous for use with flex pen No Start Date 04/04/2017 Inactive Levemir FlexTouch U- 100 Insulin 100 unit/mL (3 mL) subcutaneous pen RxNorm: 794890 90 Unit(s) SQ BID No Start Date 07/05/2018 Inactive Levemir Flexpen 100 unit/mL (3 mL) Sub-Q Insulin Pen RxNorm: 502028 65 Unit(s) SQ QD No Start Date 06/12/2012 Inactive Zithromax Z-Mateus 250 mg Tab RxNorm: 952014 Tablet(s) PO No Start Date 06/13/2011 Inactive as directed Lipitor 20 mg Tab RxNorm: 469768 1 Tablet(s) PO QD No Start Date [...] ICD- 10: Z48.298 ICD-9: V58.44 08/24/2018 Other shelter (current) drug therapy ICD-10: Z79.899 ICD-9: V58.69 [...] Item Item Code Result Date [facility] 68990 Choles terol 320 mg/dL 08/27/2018 [facility] 22387 Trigly ceride 444 mg/dL 08/27/2018 [facility] 91189 HDL CH OLESTEROL 39 mg/dL 08/27/2018 [facility] 75475 Chol/H DL Ratio 8.21 ratio 08/27/2018 [facility] 99701 NON-HD L Chol 281 mg/dL 08/27/2018 [facility] 07388 LDL Ch olesterol N/A Trig >400 019 [facility] 29356 Fasting Unknown 08/27/2018 PHOSPHORUS 1679019 PHOSP HORUS 2.1 mg/dL 08/24/2018 PROTEIN/CREAT URINE WITH RATIO 49507|10634 U Protein 515 mg/dL 08/24/2018 PROTEIN/CREAT URINE WITH RATIO 95562|43278 U Creatinine 116 mg/dL 08/24/2018 PROTEIN/CREAT URINE WITH RATIO 81450|50523 Prot:Creat Rat 4440 mg/g 08/24/2018 MAGNESIUM 44256 MAGNESIUM 1.4 mEq/L 08/24/2018 GFR CALC 6661738 GFR Non Afr Amr 44 mL/min 08/24/2018 GFR CALC 3968109 GFR Afr Amr 53 mL/min 08/24/2018 [place] [address] Glucose TNP:Unknown Cancel Reason 08/24/2018 [place] [address] CREATININE TNP:Unknown Cancel Reason 08/24/2018 [place] [address] BUN TNP:Unknown Cancel Reason 08/24/2018 [place] [address] SODIUM TNP:Unknown Cancel Reason 08/24/2018 [place] [address] POTASSIUM TNP:Unknown Cancel Reason 08/24/2018 [place] [address] CHLORIDE TNP:Unknown Cancel Reason 08/24/2018 [place] [address] Bicarbonate TNP:Unknown Cancel Reason 08/24/2018 [place] [address] AGAP TNP:Unknown Cancel Reason 08/24/2018 [place] [address] CALCIUM TNP:Unknown Cancel Reason 08/24/2018 COMPREHENSIVE METABOLIC 14034 AST 21 U/L 08/24/2018 COMPREHENSIVE METABOLIC 57130 ALT 35 U/L 08/24/2018 COMPREHENSIVE METABOLIC 20986 BUN 25 mg/dL 08/24/2018 COMPREHENSIVE METABOLIC 43344 ALBUMIN 4.5 g/dL 08/24/2018 COMPREHENSIVE METABOLIC 88408 CHLORIDE 106 mmol/L 08/24/2018 COMPREHENSIVE METABOLIC 15741 Bili Total 0.4 mg/dL 08/24/2018 COMPREHENSIVE METABOLIC 11431 ALK PHOS 64 U/L 08/24/2018 COMPREHENSIVE METABOLIC 13521 SODIUM 141 mmol/L 08/24/2018 COMPREHENSIVE METABOLIC 76484 CREATININE 1.81 mg/dL 08/24/2018 COMPREHENSIVE METABOLIC 89423 CALCIUM 10.3 mg/dL 08/24/2018 COMPREHENSIVE METABOLIC 18990 POTASSIUM 3.4 mmol/L 08/24/2018 COMPREHENSIVE METABOLIC 28503 Total Protein 7.2 g/dL 08/24/2018 COMPREHENSIVE METABOLIC 98918 Glucose 101 mg/dL 08/24/2018 COMPREHENSIVE METABOLIC 02200 Bicarbonate 23 mmol/L 08/24/2018 COMPREHENSIVE METABOLIC 25269 AGAP 12 mmol/L 08/24/2018 UA W/MICR 38340 UA Urine Appear Normal 08/24/2018 UA W/MICR 63150 UA Prote in 3+ 08/24/2018 UA W/MICR 31605 UA Hemog lobin Trace 08/24/2018 UA W/MICR 06295 UA Gluco se 3+ 08/24/2018 UA W/MICR 81939 UA [place] es Negative 08/24/2018 UA W/MICR 20313 UA pH 6.0 08/24/2018 UA W/MICR 84294 U Spec G ravity 1.025 08/24/2018 UA W/MICR 51497 UA Bilir ubin Negative 08/24/2018 UA W/MICR 82685 UA Leuk Esteras Negative 08/24/2018 UA W/MICR 02647 UA Nitri te NEG 08/24/2018 UA W/MICR 41664 UA WBC/h pf 1 08/24/2018 UA W/MICR 75274 UA RBC a uto 12.9 /uL 08/24/2018 UA W/MICR 81867 UA RBC h pf 2 08/24/2018 UA W/MICR 91526 UA WBC a uto 5.9 /uL 08/24/2018 UA W/MICR 50984 UA SQ EP I auto 5.2 /uL 08/24/2018 UA W/MICR 02036 UA H Jamil t auto 0.10 /uL 08/24/2018 PROGRAF 5833334 Prograf 7.3 ng/mL 08/24/2018 MICROALBUMIN URINE RANDOM 36189 U Microalbumin 3485.2 mg/L 08/24/2018 MICROALBUMIN URINE RANDOM 56784 U Creatinine 116 mg/dL 08/24/2018 MICROALBUMIN URINE RANDOM 79839 ALB/CR Ratio 3004.5 mg/gCR 08/25/19 19 GLYCOSYLATED HEMOGLOBIN TEST 98289 Hgb A1c 96337-7 13.3 % 9 MEAN GLUC 2410145 Calc M sherron Gluc 335 mg/dL 06/29/2018 COMPREHENSIVE METABOLIC 87396 AST 17 U/L 02/06/2018 COMPREHENSIVE METABOLIC 26137 ALT 24 U/L 02/06/2018 COMPREHENSIVE METABOLIC 46479 BUN 24 mg/dL 02/06/2018 COMPREHENSIVE METABOLIC 19411 ALBUMIN 3.9 g/dL 02/06/2018 COMPREHENSIVE METABOLIC 70225 CHLORIDE 108 mmol/L 02/06/2018 COMPREHENSIVE METABOLIC 52550 Bili Total 0.6 mg/dL 02/06/2018 COMPREHENSIVE METABOLIC 44479 ALK PHOS 67 U/L 02/06/2018 COMPREHENSIVE METABOLIC 66888 SODIUM 140 mmol/L 02/06/2018 COMPREHENSIVE METABOLIC 79794 CREATININE 1.75 mg/dL 02/06/2018 COMPREHENSIVE METABOLIC 46646 CALCIUM 9.6 mg/dL 02/06/2018 COMPREHENSIVE METABOLIC 63362 POTASSIUM 3.8 mmol/L 02/06/2018 COMPREHENSIVE METABOLIC 88859 Total Protein 7.1 g/dL 02/06/2018 COMPREHENSIVE METABOLIC 59792 Glucose 62 mg/dL 02/06/2018 COMPREHENSIVE METABOLIC 53666 Bicarbonate 23 mmol/L 02/06/2018 COMPREHENSIVE METABOLIC 25510 AGAP 9 mmol/L 02/06/2018 GLYCOSYLATED HEMOGLOBIN TEST 50342 Hgb A1c 89376-9 13.0 % 8 GFR CALC 9112095 GFR Non Afr Amr 46 mL/min 02/06/2018 GFR CALC 4555740 GFR Afr Amr 55 mL/min 02/06/2018 MICROALBUMIN URINE RANDOM 60571 U Microalbumin 669.0 mg/L 02/06/2018 MICROALBUMIN URINE RANDOM 80045 U Creatinine 92 mg/dL 02/06/2018 MICROALBUMIN URINE RANDOM 14577 ALB/CR Ratio 727.2 mg/gCR 8 MEAN GLUC Calc M sherron Gluc 326 mg/dL 02/06/2018 GLYCOSYLATED HEMOGLOBIN TEST 76037 Hgb A1c 51668-6 14.3 % 6 THYROID STIMULATING HORMONE 17175 TSH 1.909 uIU/mL 6 MAGNESIUM 10753 MAGNESIUM 1.5 mEq/L 12/03/2015 GFR CALC 9282916 GFR Non Afr Amr 39 mL/min 12/03/2015 GFR CALC 8412339 GFR Afr Amr 48 mL/min 12/03/2015 MEAN GLUC 2242993 Mean G lucose 364 mg/dL 12/03/2015 COMPREHENSIVE METABOLIC 17342 AST 34 U/L 12/03/2015 COMPREHENSIVE METABOLIC 67421 ALT 78 U/L 12/03/2015 COMPREHENSIVE METABOLIC 93349 BUN 29 mg/dL 12/03/2015 COMPREHENSIVE METABOLIC 70662 ALBUMIN 4.3 g/dL 12/03/2015 COMPREHENSIVE METABOLIC 88187 CHLORIDE 93 mmol/L 12/03/2015 COMPREHENSIVE METABOLIC 98538 Bili Total 0.7 mg/dL 12/03/2015 COMPREHENSIVE METABOLIC 19278 ALK PHOS 83 U/L 12/03/2015 COMPREHENSIVE METABOLIC 76334 SODIUM 125 mmol/L 12/03/2015 COMPREHENSIVE METABOLIC 01059 CREATININE 2.01 mg/dL 12/03/2015 COMPREHENSIVE METABOLIC 83152 CALCIUM 9.8 mg/dL 12/03/2015 COMPREHENSIVE METABOLIC 87810 POTASSIUM 4.3 mmol/L 12/03/2015 COMPREHENSIVE METABOLIC 37845 Total Protein 7.3 g/dL 12/03/2015 COMPREHENSIVE METABOLIC 10010 Glucose 542 mg/dL 12/03/2015 COMPREHENSIVE METABOLIC 82805 Bicarbonate 23 mmol/L 12/03/2015 COMPREHENSIVE METABOLIC 18957 AGAP 9 mmol/L 12/03/2015 COMPREHENSIVE METABOLIC 86450 AST 31 U/L 07/30/2013 COMPREHENSIVE METABOLIC 58997 ALT 52 IU/L 07/30/2013 COMPREHENSIVE METABOLIC 86344 BUN 26 MG/DL 07/30/2013 COMPREHENSIVE METABOLIC 19491 ALBUMIN 4.9 GM/DL 07/30/2013 COMPREHENSIVE METABOLIC 54311 CHLORIDE 108 MMOL/L 07/30/2013 COMPREHENSIVE METABOLIC 87823 BILI TOT 0.4 MG/DL 07/30/2013 COMPREHENSIVE METABOLIC 74330 ALK PHOS 68 U/L 07/30/2013 COMPREHENSIVE METABOLIC 15045 SODIUM 138 MMOL/L 07/30/2013 COMPREHENSIVE METABOLIC 06649 CREATININE 2.02 MG/DL 07/30/2013 COMPREHENSIVE METABOLIC 19109 CALCIUM 10.3 MG/DL 07/30/2013 COMPREHENSIVE METABOLIC 48399 POTASSIUM 5.0 MMOL/L 07/30/2013 COMPREHENSIVE METABOLIC 15444 PROT TOT 7.3 GM/DL 07/30/2013 COMPREHENSIVE METABOLIC 25065 Glucose 89 MG/DL 07/30/2013 COMPREHENSIVE METABOLIC 60878 BICARB 24 MMOL/L 07/30/2013 COMPREHENSIVE METABOLIC 29588 ANION GAP 6 MEQ/L 07/30/2013 GFR CALC 2601724 GFR AA 48.0L ML/MIN 07/30/2013 GFR CALC 6291433 GFR NON -AA 40.0L ML/MIN 4 COMPLETE BLOOD COUNT 0613085 WBC 7.9 10e9/L 07/30/2013 COMPLETE BLOOD COUNT [id number] RBC 4.94 10e12/L 4 COMPLETE BLOOD COUNT 9108262 HGB 14.0 g/dL 07/30/2013 COMPLETE BLOOD COUNT 5651677 HCT DET 41.5 % 07/30/2013 COMPLETE BLOOD COUNT 2987673 MCV 84.0 fL 07/30/2013 COMPLETE BLOOD COUNT 9637316 MCH 28.3 pg 07/30/2013 COMPLETE BLOOD COUNT 4711789 MCHC 33.7 g/dL 07/30/2013 COMPLETE BLOOD COUNT 8687146 PLT 176 10e9/L 07/30/2013 COMPLETE BLOOD COUNT 5083496 MPV 11.8 fL 07/30/2013 COMPLETE BLOOD COUNT 3892990 CLAYTON % 75.4 % 07/30/2013 COMPLETE BLOOD COUNT 1040495 LY % 13.7 % 07/30/2013 COMPLETE BLOOD COUNT 5405066 MON % 8.9 % 07/30/2013 COMPLETE BLOOD COUNT 1595220 EOS % 1.7 % 07/30/2013 COMPLETE BLOOD COUNT 4173215 BASO % 0.3 % 07/30/2013 COMPLETE BLOOD COUNT 0250280 RDW 13.4 % 07/30/2013 COMPLETE BLOOD COUNT 8429263 ABS CLAYTON 5.96 10e9/L 07/30/2013 COMPLETE BLOOD COUNT 3496880 ABS LYMPH 1.08 10e9/L 07/30/2013 COMPLETE BLOOD COUNT 2342791 ABS MONO 0.70 10e9/L 07/30/2013 COMPLETE BLOOD COUNT 1748226 ABS EOS 0.13 10e9/L 07/30/2013 COMPLETE BLOOD COUNT 8462352 ABS BASO 0.02 10e9/L 07/30/2013 COMPLETE BLOOD COUNT 8697888 RDW-SD 40.2 fL 07/30/2013 C-REACTIVE PROTEIN (CRP) QUANT 87557 CRP 0.2 MG/DL 07/30/2013 CANCEL 2281296 CANCEL FOOTNOTE 05/23/2012 PEND CHEM PEND C HEM FOOTNOTE 05/22/2012 COMPREHENSIVE METABOLIC 41932 AST 61 U/L 05/21/2012 COMPREHENSIVE METABOLIC 71599 ALT 106 U/L 05/21/2012 COMPREHENSIVE METABOLIC 08995 BUN 33 MG/DL 05/21/2012 COMPREHENSIVE METABOLIC 98187 ALBUMIN 5.0 GM/DL 05/21/2012 COMPREHENSIVE METABOLIC 03362 CHLORIDE 89 MMOL/L 05/21/2012 COMPREHENSIVE METABOLIC 49336 BILI TOT 0.6 MG/DL 05/21/2012 COMPREHENSIVE METABOLIC 35787 ALK PHOS 129 U/L 05/21/2012 COMPREHENSIVE METABOLIC 52939 SODIUM 120 MMOL/L 05/21/2012 COMPREHENSIVE METABOLIC 74174 CREATININE 2.23 MG/DL 05/21/2012 COMPREHENSIVE METABOLIC 96131 CALCIUM 9.8 MG/DL 05/21/2012 COMPREHENSIVE METABOLIC 79459 POTASSIUM 5.3 MMOL/L 05/21/2012 COMPREHENSIVE METABOLIC 71754 PROT TOT 7.8 GM/DL 05/21/2012 COMPREHENSIVE METABOLIC 32495 Glucose 789 MG/DL 05/21/2012 COMPREHENSIVE METABOLIC 67170 BICARB 20 MMOL/L 05/21/2012 COMPREHENSIVE METABOLIC 05704 ANION GAP 11 MMOL/L 05/21/2012 GFR CALC 3054405 GFR AA 43.0L ML/MIN 05/21/2012 GFR CALC 4724084 GFR NON -AA 36.0L ML/MIN 2 THYROID STIMULATING HORMONE 53809 TSH 1.499 uIU/ML 1 FREE T4 23607 FREE T4 1.15 NG/DL 01/27/2011 Review of [...] Procedures Procedure Codes Date ROUTINE VENIPUNCTURE CPT-4: 24871 02/19/2019 METABOLIC PANEL TOTA L CA CPT-4: 64117 02/19/2019 MICROALBUMIN, QUANTI TATIVE CPT-4: 36786 02/19/2019 LIPID PANEL CPT-4: 42331 02/19/2019 COMPREHEN METABOLIC PANEL CPT-4: 17984 02/19/2019 ASSAY OF MAGNESIUM CPT- 4: 00099 02/19/2019 METABOLIC PANEL TOTA L CA CPT-4: 74109 08/24/2018 COMPREHEN METABOLIC PANEL CPT-4: 28165 08/24/2018 ASSAY OF MAGNESIUM CPT- 4: 09292 08/24/2018 MICROALBUMIN QUANTIT ATIVE CPT-4: 46596 08/24/2018 PROTEIN/CREAT URINE WITH RATIO CPT-4: 64152|71637 08/24/2018 PHOSPHORUS CPT-4: 0009825 08/24/2018 LIPID PANEL CPT-4: 89641 08/24/2018 ROUTINE VENIPUNCTURE CPT-4: 29203 06/29/2018 A1C HPLC CPT-4: 31649 06/29/2018 URINALYSIS NONAUTO W /O SCOPE CPT-4: 71001 02/06/2018 URINE CULTURE/ COLON Y COUNT CPT-4: 43457 02/06/2018 MICROALBUMIN QUANTIT ATIVE CPT-4: 16974 02/06/2018 ROUTINE VENIPUNCTURE CPT-4: 83190 02/06/2018 COMPREHEN METABOLIC PANEL CPT-4: 26090 02/06/2018 A1C HPLC CPT-4: 28826 02/06/2018 ROUTINE VENIPUNCTURE CPT-4: 24185 11/02/2017 COMPREHEN METABOLIC PANEL CPT-4: 06246 11/02/2017 A1C HPLC CPT-4: 51338 11/02/2017 TDAP VACCINE 7 YRS/> IM CPT-4: 68687 07/27/2017 IMMUNIZATION ADMIN CPT- 4: 88413 07/27/2017 URINALYSIS NONAUTO W /O SCOPE CPT-4: 22719 02/16/2016 URINE CULTURE/ COLON Y COUNT CPT-4: 41423 02/16/2016 PRESCRIP TRANSMIT A ERX SY CPT-4: G8553 02/16/2016 ROUTINE VENIPUNCTURE CPT-4: 25096 12/03/2015 ASSAY THYROID STIM H ORMONE CPT-4: 42433 12/03/2015 COMPREHEN METABOLIC PANEL CPT-4: 38384 12/03/2015 A1C HPLC CPT-4: 81020 12/03/2015 ASSAY OF MAGNESIUM CPT- 4: 77513 12/03/2015 URINALYSIS NONAUTO W /O SCOPE CPT-4: 89764 12/03/2015 URINE CULTURE/ COLON Y COUNT CPT-4: 40753 12/03/2015 URINALYSIS NONAUTO W /O SCOPE CPT-4: 79159 07/30/2013 URINE CULTURE/ COLON Y COUNT CPT-4: 29443 07/30/2013 ROUTINE VENIPUNCTURE CPT-4: 86267 07/30/2013 COMPLETE CBC W/AUTO DIFF WBC CPT-4: 85604 07/30/2013 COMPREHEN METABOLIC PANEL CPT-4: 33716 07/30/2013 C-REACTIVE PROTEIN CPT- 4: 50538 07/30/2013 ROUTINE VENIPUNCTURE CPT-4: 98126 08/20/2012 ASSAY OF FREE THYROXINE CPT-4: 57890 08/20/2012 ASSAY THYROID STIM H ORMONE CPT-4: 27373 08/20/2012 COMPREHEN METABOLIC PANEL CPT-4: 66902 08/20/2012 COMPLETE CBC W/AUTO DIFF WBC CPT-4: 30931 08/20/2012 LIPID PANEL CPT-4: 77559 08/20/2012 A1C GLYCOSYLATED HEM OGLOBIN TEST CPT-4: 00166 08/20/2012 ASSAY, GLUCOSE, BLOO D QUANT CPT-4: 73569 06/21/2012 ASSAY, GLUCOSE, BLOO D QUANT CPT-4: 19677 05/21/2012 ROUTINE VENIPUNCTURE CPT-4: 71600 05/21/2012 COMPREHEN METABOLIC PANEL CPT-4: 10575 05/21/2012 A1C GLYCOSYLATED HEM OGLOBIN TEST CPT-4: 36811 05/21/2012 CURRENT SMKLESS [employer] EMERIT[employer] USER CPT-4: G8456 06/14/2011 PT VIS DOC USE EHR C ER ATCB CPT-4: G8447 06/14/2011 PRESCRIP TRANSMIT A ERX SY CPT-4: G8553 06/14/2011 PT VIS DOC USE EHR C ER ATCB CPT-4: G8447 03/03/2011 PRESCRIP TRANSMIT A ERX SY CPT-4: G8553 03/03/2011 ROUTINE VENIPUNCTURE CPT-4: 56893 01/27/2011 ASSAY OF FREE THYROXINE CPT-4: 78403 01/27/2011 ASSAY THYROID STIM H ORMONE CPT-4: 16325 01/27/2011 PT VIS DOC USE EHR C [...] 1: 158/90 Code: 8480-6 BMI: 34.3 Code: 67303-2 Heart Rate 1: 78 bpm Height: 6'1" Respiratory Rate: 20 bpm SpO2: 98% Temperature: 36.6 (C ) / 97.8 (F) Weight: 260 lbs 11/02/2017 Blood Pressure 1: 134/92 Code: 8480-6 BMI: 32.3 Code: 03927-9 Heart Rate 1: 72 bpm Height: 6'1" SpO2: 98% Temperature: 36.4 (C ) / 97.5 (F) Weight: 245 lbs 07/27/2017 Blood Pressure 1: 136/64 Code: 8480-6 BMI: 30.9 Code: 48123-3 Heart Rate 1: 78 bpm Height: 6'1" Respiratory Rate: 22 bpm SpO2: 98% Temperature: 36.4 (C ) / 97.6 (F) Weight: 234 lbs 04/05/2017 Blood Pressure 1: 126/90 Code: 8480-6 BMI: 33.5 Code: 17189-5 Heart Rate 1: 76 bpm Height: 6'1" Respiratory Rate: 20 bpm SpO2: 97% Temperature: 37.0 (C ) / 98.6 (F) Weight: 254 lbs 06/20/2016 Blood Pressure 1: 122/74 Code: 8480-6 BMI: 35.2 Code: 58767-1 Heart Rate 1: 80 bpm Height: 6'1" Respiratory Rate: 20 bpm SpO2: 97% Temperature: 36.9 (C ) / 98.5 (F) Weight: 267 lbs 02/16/2016 Blood Pressure 1: 136/82 Code: 8480-6 BMI: 36.4 Code: 43823-0 Heart Rate 1: 66 bpm Height: 6'1" Respiratory Rate: 18 bpm SpO2: 96% Temperature: 36.4 (C ) / 97.6 (F) Weight: 276 lbs 12/03/2015 Blood Pressure 1: 122/86 Code: 8480-6 BMI: 39.2 Code: 77319-0 Heart Rate 1: 76 bpm Height: 6' Respiratory Rate: 20 bpm Temperature: 37.1 (C ) / 98.7 (F) Weight: 289 lbs 06/24/2015 Blood Pressure 1: 136/84 Code: 8480-6 BMI: 40.7 Code: 65975-6 Heart Rate 1: 84 bpm Height: 6' Respiratory Rate: 20 bpm Temperature: 36.9 (C ) / 98.4 (F) Weight: 300 lbs 06/11/2015 Blood Pressure 1: 160/82 Code: 8480-6 BMI: 40.4 Code: 52756-8 Heart Rate 1: 82 bpm Height: 6' Respiratory Rate: 22 bpm Temperature: 36.5 (C ) / 97.7 (F) Weight: 298 lbs 07/17/2014 Blood Pressure 1: 132/84 Code: 8480-6 BMI: 41.0 Code: 56815-2 Heart Rate 1: 76 bpm Height: 6'1" Respiratory Rate: 20 bpm Temperature: 36.9 (C ) / 98.4 (F) Weight: 311 lbs 10/31/2013 Blood Pressure 1: 132/80 Code: 8480-6 BMI: 41.2 Code: 36646-7 Heart Rate 1: 84 bpm Height: 6'1" Respiratory Rate: 22 bpm Temperature: 36.1 (C ) / 97.0 (F) Weight: 312 lbs 08/01/2013 Blood Pressure 1: 142/86 Code: 8480-6 BMI: 42.4 Code: 18429-0 Heart Rate 1: 84 bpm Height: 6' [...] 1: 156/108 Code: 8480-6 BMI: 41.9 Code: 39635-9 Heart Rate 1: 92 bpm Height: 6' Respiratory Rate: 20 bpm Temperature: 36.9 (C ) / 98.4 (F) Weight: 309 lbs 02/27/2013 Blood Pressure 1: 162/114 Code: 8480-6 BMI: 41.0 Code: 06563-3 Heart Rate 1: 84 bpm Height: 6' Respiratory Rate: 20 bpm Temperature: 36.7 (C ) / 98.0 (F) Weight: 302 lbs 01/01/2013 Blood Pressure 1: 138/86 Code: 8480-6 BMI: 41.0 Code: 70667-9 Heart Rate 1: 76 bpm Height: 6' Respiratory Rate: 20 bpm Temperature: 36.7 (C ) / 98.0 (F) Weight: 302 lbs 11/27/2012 Blood Pressure 1: 136/92 Code: 8480-6 BMI: 41.2 Code: 09780-3 Heart Rate 1: 80 bpm Height: 6' Respiratory Rate: 20 bpm Temperature: 36.6 (C ) / 97.8 (F) Weight: 304 lbs 08/28/2012 Blood Pressure 1: 126/80 Code: 8480-6 BMI: 41.8 Code: 96744-4 Heart Rate 1: 80 bpm Height: 6' Respiratory Rate: 20 bpm Temperature: 36.4 (C ) / 97.6 (F) Weight: 308 lbs 07/03/2012 Blood Pressure 1: 114/80 Code: 8480-6 BMI: 42.3 Code: 85375-8 Heart Rate 1: 72 bpm Height: 6' Respiratory Rate: 20 bpm Temperature: 36.6 (C ) / 97.9 (F) Weight: 312 lbs 06/21/2012 Blood Pressure 1: 152/100 Code: 8480-6 BMI: 43.3 Code: 79658-9 Heart Rate 1: 72 bpm Height: 6' Temperature: 36.8 (C ) / 98.2 (F) Weight: 319 lbs 05/30/2012 Blood Pressure 1: 122/78 Code: 8480-6 BMI: 43.0 Code: 37699-9 Heart Rate 1: 72 bpm Height: 6' Respiratory Rate: 20 bpm Temperature: 36.7 (C ) / 98.0 (F) Weight: 317 lbs 05/21/2012 Blood Pressure 1: 126/94 Code: 8480-6 BMI: 44.2 Code: 62518-5 Heart Rate 1: 92 bpm Height: 6' Respiratory Rate: 20 bpm Temperature: 36.6 (C ) / 97.9 (F) Weight: 326 lbs 01/24/2012 Blood Pressure 1: 122/90 Code: 8480-6 BMI: 44.5 Code: 95241-9 Heart Rate 1: 76 bpm Height: 6' Respiratory Rate: 20 bpm Temperature: 36.8 (C ) / 98.2 (F) Weight: 328 lbs 09/21/2011 Blood Pressure 1: 116/80 Code: 8480-6 BMI: 44.1 Code: 72738-0 Heart Rate 1: 92 bpm Height: 6' Respiratory Rate: 20 bpm Temperature: 36.7 (C ) / 98.1 (F) Weight: 325 lbs 09/12/2011 Blood Pressure 1: 166/110 Code: 8480-6 BMI: 45.0 Code: 75520-1 Heart Rate 1: 80 bpm Height: 6' Respiratory Rate: 20 bpm Temperature: 36.5 (C ) / 97.7 (F) Weight: 332 lbs 06/14/2011 Blood Pressure 1: 142/84 Code: 8480-6 BMI: 45.6 Code: 26002-9 Heart Rate 1: 104 bpm Height: 6' Respiratory Rate: 20 bpm Temperature: 36.4 (C ) / 97.5 (F) Weight: 336 lbs 03/03/2011 Blood Pressure 1: 130/96 Code: 8480-6 Heart Rate 1: 86 bpm Temperature: 36.1 (C) / 97.0 (F) Weight: 327 lbs 01/27/2011 Blood Pressure 1: 142/96 Code: 8480-6 BMI: 42.0 Code: 57568-4 Heart Rate 1: 72 bpm Height: 6'2" [...] 11/27/2012 in elbow--seen in Urgent care in [place] and started on abx cellulitis Onset and [...] and Resolution ongoing 06/21/2012 been out of [facility] pharmacy didn't have diabetes mellitus Blood glucose [...] Encounters Encounter Performer Loca tion Codes Date ([id number]) NURSE/OUTPAT IENT VISIT EST Diagnosis: 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, 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] Diagnosis: Essential (primary) hypertension[ICD10: I10] Diagnosis: Other specified hypothyroidism[ICD10: E03.8] Diagnosis: Mixed hyperlipidemia[ICD10: E78.2] Galina [facility] CPT-4: 98063 02/19/2019 ([id number]) NURSE/OUTPAT IENT VISIT EST Diagnosis: Kidney transplant status[ICD10: Z94.0] 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] Diagnosis: Other shelter (current) drug therapy[ICD10: Z79.899] Diagnosis: Encounter for aftercare following other organ transplant[ICD10: Z48.298] Diagnosis: Mixed hyperlipidemia[ICD10: E78.2] Galina ARTEAGA [facility] CPT-4: 07264 08/24/2018 ([id number]) NURSE/OUTPAT IENT VISIT EST Diagnosis: Type 2 diabetes mellitus with diabetic neuropathy, unspecified[ICD10: E11.40] Diagnosis: Type 2 diabetes mellitus with hyperglycemia[ICD10: E11.65] 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] Diagnosis: Essential (primary) hypertension[ICD10: I10] Galina CASANOVA [facility] CPT-4: 05536 06/29/2018 ([id number]) OFFICE/OUTPA TIENT VISIT EST Diagnosis: Slow transit constipation[ICD10: K59.01] Diagnosis: Epigastric pain[ICD10: R10.13] Diagnosis: Type 2 diabetes mellitus with hyperglycemia[ICD10: E11.65] Coleen SMITH [facility] CPT-4: 45502 06/26/2018 ([id number]) OFFICE/OUTPA TIENT VISIT EST Diagnosis: Right lower quadrant pain[ICD10: R10.31] Diagnosis: Type 2 diabetes mellitus with diabetic neuropathy, unspecified[ICD10: E11.40] Coleen SMITH [facility] CPT-4: 29157 02/06/2018 ([id number]) OFFICE/OUTPA TIENT VISIT EST Diagnosis: Type 2 diabetes mellitus with hyperglycemia[ICD10: E11.65] Diagnosis: Mixed hyperlipidemia[ICD10: E78.2] Diagnosis: Essential (primary) hypertension[ICD10: I10] Coleen CHENEY [facility] CPT-4: 21180 11/02/2017 ([id number]) PREV VISIT E ST AGE 18-39 Diagnosis: Encounter for general adult medical examination with abnormal findings[ICD10: Z00.01] Diagnosis: Abrasion of right hand, initial encounter[ICD10: S60.511A] 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] Coleen DENNISONQUELINE SusuKarol TRELL [facility] CPT-4: 41679 07/27/2017 OFFICE/OUTPATIENT SIT EST 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] Diagnosis: Tinea pedis[ICD10: B35.3] Coleen DENNISONQUELINE SusuKarol [facility] CPT-4: 18835 04/05/2017 ([id number]) OFFICE/OUTPA TIENT VISIT EST Diagnosis: DM W/O COMPLICATION TYPE I, 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] Diagnosis: Mixed hyperlipidemia[ICD10: E78.2] Diagnosis: Essential (primary) hypertension[ICD10: I10] Galina Chance ROD [facility] CPT-4: 93989 06/20/2016 ([id number]) OFFICE/OUTPA TIENT VISIT EST Diagnosis: Urinary tract infection, site not specified[ICD10: N39.0] Missymilka Dc GALINA Chance RODCHANDLER [facility] CPT-4: 01218 02/16/2016 ([id number]) OFFICE/OUTPA TIENT VISIT EST Diagnosis: Type 2 diabetes mellitus with hyperglycemia[ICD10: E11.65] Diagnosis: Cramp and spasm[ICD10: R25.2] Diagnosis: Hematuria, unspecified[ICD10: R31.9] Galina Chance ROD CASANOVA [facility] CPT-4: 95637 12/03/2015 OFFICE/OUTPATIENT SIT EST Diagnosis: Type 2 diabetes mellitus with diabetic neuropathy, unspecified[ICD10: E11.40] Alejandra Chance [facility]CHANDLER [facility] CPT-4: 37419 06/24/2015 ([id number]) OFFICE/OUTPA TIENT VISIT EST Diagnosis: Acute sinusitis, unspecified[ICD10: J01.90] Diagnosis: Otitis media, unspecified, bilateral[ICD10: H66.93] Galinamaria luisa ROD NDER DO [facility] CPT-4: 36649 06/11/2015 ([id number]) OFFICE/OUTPA TIENT VISIT EST Diagnosis: DM W/O COMPLICATION TYPE I[ICD9: 250.01] Diagnosis: HYPERTENSION[ICD9: 401.9] Diagnosis: HYPERLIPIDEMIA NEC/NOS[ICD9: 272.4] Diagnosis: KIDNEY TRANSPLANT STATUS[ICD9: V42.0] aGlina ROD NDER DO [facility] CPT-4: 07289 07/17/2014 ([id number]) OFFICE/OUTPA TIENT VISIT EST Diagnosis: DM W/O COMPLICATION TYPE I[ICD9: 250.01] Diagnosis: HYPERTENSION[ICD9: 401.9] Galina SMITH [facility] CPT-4: 67495 10/31/2013 ([id number]) OFFICE/OUTPA TIENT VISIT EST Diagnosis: DM W/O COMPLICATION TYPE II[ICD9: 250.00] Diagnosis: HYPERTENSION[ICD9: 401.9] Diagnosis: HYPERLIPIDEMIA NEC/NOS[ICD9: 272.4] Galina ROD NDER DO [facility] CPT-4: 43948 08/01/2013 OFFICE/OUTPATIENT SIT EST Diagnosis: HEMATURIA NOS[ICD9: 599.70] Diagnosis: Abdominal pain, acute, right lower quadrant[ICD9: 789.03] Diagnosis: KIDNEY TRANSPLANT STATUS[ICD9: V42.0] Alejandra Billy GALINA Cristobal. O ROB DO [facility] CPT-4: 86678 07/30/2013 ([id number]) OFFICE/OUTPA TIENT VISIT EST Diagnosis: Uncontrolled hypertension[ICD9: 401.9] Diagnosis: BRIEF DEPRESSIVE REACT[ICD9: 309.0] Galina ROD NDER DO [facility] CPT-4: 97221 05/30/2013 ([id number]) OFFICE/OUTPA TIENT VISIT EST Diagnosis: HYPERTENSION[ICD9: 401.9] Diagnosis: Anticipatory grieving[ICD9: 309.0] Galina ROD NDER DO [facility] CPT-4: 60467 04/29/2013 ([id number]) OFFICE/OUTPA TIENT VISIT EST Diagnosis: DM W/O COMPLICATION TYPE II, UNCONTROLLED[ICD9: 250.02] Diagnosis: HYPERTENSION[ICD9: 401.9] Diagnosis: HYPOTHYROIDISM[ICD9: 244.9] Diagnosis: KIDNEY TRANSPLANT STATUS[ICD9: V42.0] Galina Bernaltorri GALINA SusuKarol ROD [facility] CPT-4: 14376 02/27/2013 OFFICE/OUTPATIENT SIT EST Diagnosis: Paronychia[ICD9: 681.9] Diagnosis: ONYCHOMYCOSIS[ICD9: 110.1] Viky Dave ASENCIO SusuKarol [facility] CPT-4: 77571 01/01/2013 ([id number]) OFFICE/OUTPA TIENT VISIT EST Diagnosis: DM W/O COMPLICATION TYPE II, UNCONTROLLED[ICD9: 250.02] Diagnosis: HYPERLIPIDEMIA NEC/NOS[ICD9: 272.4] Diagnosis: HYPERTENSION[ICD9: 401.9] Diagnosis: KIDNEY TRANSPLANT STATUS[ICD9: V42.0] Diagnosis: HYPOTHYROIDISM[ICD9: 244.9] Galinamaria luisa ASENCIO SusuKarol DOLORES [facility] CPT-4: 71352 11/27/2012 ([id number]) OFFICE/OUTPA TIENT VISIT EST Diagnosis: DM W/O COMPLICATION TYPE II[ICD9: 250.00] Diagnosis: HYPOTHYROIDISM[ICD9: 244.9] Diagnosis: HYPERLIPIDEMIA NEC/NOS[ICD9: 272.4] Diagnosis: HYPERTENSION[ICD9: 401.9] Galina Rodranjanatorri GALINA SusuKarol [facility]RE[facility] CPT-4: 98504 08/28/2012 ([id number]) OFFICE/OUTPA TIENT VISIT EST Diagnosis: HYPOTHYROIDISM[ICD9: 244.9] Diagnosis: DM W/O COMPLICATION TYPE II, UNCONTROLLED[ICD9: 250.02] Diagnosis: HYPERLIPIDEMIA NEC/NOS[ICD9: 272.4] Diagnosis: KIDNEY TRANSPLANT STATUS[ICD9: V42.0] Diagnosis: HYPERTENSION[ICD9: 401.9] Galina ASENCIO SusuKarol [facility] CPT-4: 12512 08/20/2012 OFFICE/OUTPATIENT SIT EST Diagnosis: DM W/O COMPLICATION TYPE II, UNCONTROLLED[ICD9: 250.02] Diagnosis: HYPERTENSION[ICD9: 401.9] Galina ASENCIO SusuKarol TRELL [facility] CPT-4: 94282 07/03/2012 OFFICE/OUTPATIENT SIT EST Diagnosis: DM W/O COMPLICATION TYPE II, UNCONTROLLED[ICD9: 250.02] Diagnosis: HYPERTENSION[ICD9: 401.9] Galina SMITH [facility] CPT-4: 87982 06/21/2012 OFFICE/OUTPATIENT SIT EST Diagnosis: DM W/O COMPLICATION TYPE II, UNCONTROLLED[ICD9: 250.02] Diagnosis: HYPERTENSION[ICD9: 401.9] Diagnosis: HYPERLIPIDEMIA NEC/NOS[ICD9: 272.4] Diagnosis: KIDNEY TRANSPLANT STATUS[ICD9: V42.0] Galina ARTEAGA [facility] CPT-4: 83315 05/30/2012 ([id number]) OFFICE/OUTPA TIENT VISIT EST Diagnosis: HYPERTENSION[ICD9: 401.9] Diagnosis: VISUAL DISTURBANCE[ICD9: 368.9] Galina SMITH [facility] CPT-4: 41801 05/21/2012 ([id number]) OFFICE/OUTPA TIENT VISIT EST Diagnosis: HYPERTENSION[ICD9: 401.9] Diagnosis: HYPOTHYROIDISM[ICD9: 244.9] Diagnosis: KIDNEY TRANSPLANT STATUS[ICD9: V42.0] Galina ARTEAGA [facility] CPT-4: 14969 01/24/2012 OFFICE/OUTPATIENT SIT EST Diagnosis: DIZZINESS/VERTIGO[ICD9: 780.4] Diagnosis: HYPERTENSION[ICD9: 401.9] [facility] 93144 09/21/2011 ([id number]) OFFICE/OUTPA TIENT VISIT EST Diagnosis: HYPERTENSION[ICD9: 401.9] Diagnosis: HYPOTHYROIDISM[ICD9: 244.9] Diagnosis: HYPERLIPIDEMIA NEC/NOS[ICD9: 272.4] Diagnosis: KIDNEY TRANSPLANT STATUS[ICD9: V42.0] Galina ARTEAGA [facility] CPT-4: 08155 09/12/2011 OFFICE/OUTPATIENT SIT EST Diagnosis: HYPOTHYROIDISM[ICD9: 244.9] Diagnosis: HYPERTENSION[ICD9: 401.9] Diagnosis: CEPHALGIA[ICD9: 784.0] Galina SMITH DO [facility] CPT-4: 76965 06/14/2011 OFFICE/OUTPATIENT SIT EST Diagnosis: HYPERTENSION[ICD9: 401.9] Diagnosis: PHARYNGITIS, ACUTE[ICD9: 462] Diagnosis: HYPOTHYROIDISM[ICD9: 244.9] Galina SMITH DO [facility] CPT-4: 49733 03/03/2011 OFFICE/OUTPATIENT SIT EST Diagnosis: HYPOTHYROIDISM[ICD9: 244.9] Diagnosis: KIDNEY TRANSPLANT STATUS[ICD9: V42.0] Diagnosis: HYPERTENSION[ICD9: 401.9] Diagnosis: SINUSITIS, ACUTE[ICD9: 461.9] Galina SMITH DO [facility] CPT-4: 53468 01/27/2011 ([id number]) OFFICE/OUTPA TIENT VISIT EST Galina ARTEAGA DO [facility] CPT-4: 99193 12/02/2010 Plan of Care Planned Activity Notes C odes Status Date Appointment: [facility] [phone] [id number] [facility] 08/24/2018 Appointment: [facility] [phone] [id number] [facility] 06/29/2018 Visit Diagnosis Plan: Epigastric [...] he had labs done in dec at [facility]. will obtain lab results and order additional labs as needed. ICD-9 : 250.02 ICD-10 : E11.65 06/26/2018 Appointment: Coleen Frey [address] [facility] ACUTE ILLNESS 06/26/2018 Visit Diagnosis Plan: Type [...] : R10.31 02/06/2018 Appointment: Coleen Frey [address] [facility] ACUTE ILLNESS 02/06/2018 Patient Education: Patient Medication [...] : E11.65 11/02/2017 Appointment: Coleen Frey [address] [place], [place] [id number] FOLLOW UP 11/02/2017 Patient Education: Patient Medication Summary Completed 11/02/2017 Visit Diagnosis Plan: Abrasion of right hand, initial encounter Discussion: keflex prescribed for infect ion. instructed patient to call or rtc next week if no improvement. keep area clean and dry. ICD-9 : 914.0 ICD-10 : S60.511A 07/27/2017 Visit Diagnosis Plan: Encounter for [facility] adult medical examination with abnormal findings [...] E11.59 07/27/2017 Appointment: Coleen Frey [address] [facility] Annual Well Visit 07/27/2017 Patient Education: Patient [...] ICD-10 : B35.3 04/05/2017 Appointment: Coleen Frey [address] [place], [place] [id number] FOLLOW UP 04/05/2017 Patient Education: Patient Medication Summary Completed 04/05/2017 Patient Education: Patient Medication Summary Completed 04/05/2017 Care Plan: CBC Pending 04/05/2017 Care Plan: LIPID PANEL LOINC : 99166-5 Pending 04/05/2017 Care Plan: COMPREHEN METABOLIC PANEL LOINC : 76831-0 Pending 04/05/2017 Visit Plan: Patient admits that [...] given 06/20/2016 Appointment: Galina Smith WPtel: [phone] [facility] 06/16 lm-sp / lm ~sl FOLLOW UP 06/20/2016 Patient Education: Patient Medication Summary Completed 06/20/2016 Patient Education: Patient Medication Summary Completed 05/04/2016 Care Plan: COMPREHEN METABOLIC PANEL LOINC : 37206-3 Pending 05/04/2016 Care Plan: CBC Pending 05/04/2016 Care Plan: LIPID PANEL LOINC : 19555-5 Pending 05/04/2016 Care Plan: A1C HPLC LO INC : 50708-0 Pending 05/04/2016 Visit Plan: Discussed with Dr Bernal er Treatment as above while awaiting specialist to return his call Push fluids Follow up celine if not improving 02/16/2016 Visit Plan: Discussed with Dr Bernal er Treatment as above while awaiting specialist to return his call Push fluids Follow up celine if not improving 02/16/2016 Appointment: Missy Dc [phone] ACUTE ILLNESS 02/16/2016 Patient Education: Patient [...] as well 12/03/2015 Appointment: Galina Smith WPtel: [facility] [place] ACUTE ILLNESS 12/03/2015 Patient Education: Patient Medication Summary Completed 12/03/2015 Visit Plan: Labs completed this am in [place] but do not have results yet. Start Lyrica 75mg PO bid Will Call in a week and let know if pain is improved. 06/24/2015 Visit Plan: Labs completed this am in [place] but do not have results yet. Start Lyrica 75mg PO bid Will Call in a week and let know if pain is improved. 06/24/2015 Appointment: Alejandra Billy WPtel: [address] [place] [address] ACUTE ILLNESS 06/24/2015 Patient Education: Patient Medication Summary Completed 06/24/2015 Patient Education: Lyrica - 18+ - No MA NE Completed 06/24/2015 Visit Plan: Saline nasal flushes pr n. Tylenol/Motrin prn headache. Notify if persists/symptoms worsening. Obtain most recent lab Warned of increased BS with prednisone--has sliding scale to use 06/11/2015 Appointment: Galina Smith WPtel: [address] [place], [place] [phone] 06/10/15 cn....06/10/15 appt confirme d cn Annual Well Visit 05/14 Patient Education: Patient Medication Summary Completed 06/11/2015 Appointment: Galina Smith WPtel: [address] [place] [address] FOLLOW UP 10/15/2014 Patient Education: Patient Medication Summary Completed 09/03/2014 Care Plan: COMPREHEN METABOLIC PANEL LOINC : 16427-4 Ordered 09/03/2014 Visit Plan: Obtain most recent lab results Will likely need HbA1C and Lipids if were not done Accuchecks q AC and HS 07/17/2014 Appointment: Galina Smith WPtel: [address] [place], [place] [phone] FOLLOW UP 07/17/2014 Patient Education: Patient Medication Summary Completed 07/17/2014 Appointment: Galina Smith WPtel: [address] [place], [place] [phone] 01/29 01/30 NO SHOW FOLLOW UP 01/30/2014 Visit Plan: Check CMP, HbA1C, CBC, Lipids Pt sees transplant doctor next month Pt is currently just using insulin prn and monitering BS 10/31/2013 Appointment: Galina Smithl: [address] [place], [place] [phone] FOLLOW UP 10/31/2013 Patient Education: Patient Medication Summary Completed 10/31/2013 Visit Plan: Continue current meds a nd acuchecks 08/01/2013 Appointment: Galina Smith WPtel: [address] [place], [place] [phone] 07/31 FOLLOW UP 08/01/2013 Patient Education: Patient Medication Summary Completed 08/01/2013 Visit Plan: CBC, CMP, CRP To [facility] for CT abdomen/Pelvis w/o contrast 07/30/2013 Appointment: Alejandra Billy WPtel: [address] [place], [place] [phone] ACUTE ILLNESS 07/30/2013 Patient Education: Patient Medication Summary Completed 07/30/2013 Visit Plan: Restart Ken--pt says needs PA Continue fluoxetine at 20mg daily 05/30/2013 Appointment: Galina Smith WPtel: [address] [place], [place] [phone] FOLLOW UP 05/30/2013 Patient Education: Patient Medication Summary Completed 05/30/2013 Appointment: Galina Smith WPtel: [address] [place], [place] [phone] [place] has appt following day FOLLOW UP 05/29/2013 Visit Plan: Restart Ken and Amlo dopine as has been out--new rx sent out Trial of Fluoxetine 20mg q AM Stress Reducers 04/29/2013 Appointment: Galina Smith WPtel: [address] [place], [place] [phone] 04/26 MOM made appt. confirmed monday ACUTE ILLNESS 04/29/2013 Patient Education: Patient Medication Summary Completed 04/29/2013 Visit Plan: Continue current meds a nd accuchecks Pt going for fasting lab next month 02/27/2013 Appointment: Galina Smith WPtel: [address] [place], [place] [phone] FOLLOW UP 02/27/2013 Patient Education: Patient Medication Summary Completed 02/27/2013 Appointment: Viky Acosta WPtel: [address] [place], [place] [phone] ACUTE ILLNESS 01/01/2013 Patient Education: Patient Medication Summary Completed 01/01/2013 Visit Plan: Continue current meds C heck fasting lab next week 11/27/2012 Appointment: Galina Smith WPtel: [address] [place], [place] [phone] FOLLOW UP 11/27/2012 Patient Education: Patient Medication Summary Completed 11/27/2012 Visit Plan: Lab discussed Continue current meds and accuchecks Pt sees transplant doctor in in October Check fasting lab and fwup in 3mos 08/28/2012 Appointment: Galina Smith WPtel: [address] [place] [address] 08/27 FOLLOW UP 08/28/2012 Patient Education: Patient Medication Summary Completed 08/28/2012 Appointment: Galina Smith WPtel: [address] [place], [place] [phone] LAB 08/20/2012 Patient Education: Patient Medication Summary Completed 08/20/2012 Visit Plan: Continue levemir at cur rent dose with accuchecks Use apidra with sliding scale Check Chem 7 and HbA1C in 2mos 07/03/2012 Appointment: Galina Smith WPtel: [address] [place], [place] [phone] 07/02 vm FOLLOW UP 07/03/2012 Patient Education: [...] 320mg daily 06/21/2012 Appointment: Galina Smith WPtel: [address] [place], [place] [phone] ACUTE ILLNESS 06/21/2012 Patient Education: Patient Medication Summary Completed 06/21/2012 Visit Plan: Increase Levemir to 75 u sc q PM Continue sliding scale insulin with accuchecks q AC and HS Call in 1wk with BS readings 05/30/2012 Appointment: Galina Smith WPtel: [address] [place], [place] [phone] Follow Up 05/30/2012 Patient Education: Patient Medication Summary Completed 05/30/2012 Appointment: Galina Smith WPtel: [address] [place], [place] [phone] 05/21 - cancelled appointment for 05/22 because PT was worked in on 05/21 FOLLOW UP 05/22/2012 Visit Plan: Obtain lab done last mo from [facility] See optometry for dilated eye exam and eye pressures today May need CT head pending results of eye evaluation 05/21/2012 Appointment: Galina Smith WPtel: [address] [place], [place] [phone] WORK IN 05/21/2012 Appointment: Galina Smith WPtel: [address] [place], [place] [phone] LAB 05/21/2012 Patient Education: Patient Medication Summary Completed 05/21/2012 Visit Plan: Continue current meds O btain most recent lab done at [facility] See eye doctor today for dilated exam and eye pressures May need CT head pending dilated eye exam results 01/24/2012 Visit Plan: Continue current meds O btain most recent lab done at [facility] 01/24/2012 Visit Plan: Continue current meds C heck CBC, CMP, TSH, Free T4 01/24/2012 Appointment: Galina Smith WPtel: [address] [place] [phone] [facility] 01/24/2012 Patient Education: Patient Medication Summary Completed 01/24/2012 Visit Plan: Decrease Norvasc to 2.5 mg daily Check CBC, CMP, TSH, Free T4 09/21/2011 Appointment: Galina Smith WPtel: [address] [place] [address] ACUTE ILLNESS 09/21/2011 Patient Education: Patient Medication Summary Completed 09/21/2011 Visit Plan: Continue Diovan at curr ent dose Add amlodopine Check Lipids/LFTs with next lab 09/12/2011 Appointment: Galina Smith WPtel: [address] [place] [address] FOLLOW UP 09/12/2011 Patient Education: Patient Medication Summary Completed 09/12/2011 Visit Plan: Increase Diovan to 320m g po daily Check TSH and Free T4 with kidney lab next week 06/14/2011 Appointment: Galina Smith WPtel: [address] [place] [address] FOLLOW UP 06/14/2011 Patient Education: Patient Medication Summary Completed 06/14/2011 Visit Plan: Z-pack then new tootheb ivory Start Diovan 03/03/2011 Appointment: Galina Smith WPtel: [address] [place] [address] ACUTE ILLNESS 03/03/2011 Patient Education: Patient Medication Summary Completed 03/03/2011 Visit Plan: Check TSH, Free T4 toda y Pt will moniter BP at home See if treatment of sinuses helps headaches 01/27/2011 Appointment: Galina Smith WPtel: [address] [place] [address] FOLLOW UP 01/27/2011 Patient Education: Patient Medication Summary Completed 01/27/2011 Visit Plan: Continue current meds a nd proceed with lab per kidney transplant doctor Start Synthroid at 50mcg po daily 12/02/2010 Appointment: Galina Smith WPtel: [address] [place] [address] FOLLOW UP 12/02/2010 Patient Education: Patient Medication Summary Completed 12/02/2010 Appointment: Galina Smith WPtel: [phone] [id number] US Suture Removal 10/20/2009 Patient Education: Patient [...] lab done la st mo from [facility] See optometry for dilated [...] most recent lab done at [facility] See eye doctor today for dilated exam and eye pressures May need CT head pending dilated eye exam results . Continue current m eds Obtain most recent lab done at [facility] . Continue current m eds Check CBC, CMP, TSH, Free T4 . Continue current m eds and accuchecks Pt going for fasting lab next month . Check TSH, Free T4 today Pt will moniter BP at home See if treatment of sinuses helps headaches . CBC, CMP, CRP To [facility] for CT abdomen/Pelvis w/o contrast . Saline nasal flush es prn. Tylenol/Motrin prn headache. Notify if persists/symptoms worsening. Obtain most recent lab Warned of increased BS with prednisone--has sliding scale to use . Patient admits graec t has not been watching diet--was drinking [...] . Labs completed thi s am in [facility] but do not have results yet. Start Lyrica 75mg PO bid Will Call in a week and let know if pain is improved. . Labs completed thi s am in [facility] but do not have results yet. Start Lyrica 75mg PO bid Will Call in a week and let know if pain is improved. . Restart Diovan and Amlodopine as has been out--new rx sent out Trial of Fluoxetine 20mg q AM Stress Reducers
--- OUTSIDE RECORDS SUMMARY | 2019-08-21 00:36 | XMS REPORT | CCD ---
Author Author Cuauhtemoc Smith D.O. Organization [facility] Address [address] [place] [address] Phone Care Team Providers Care Apparel Designer Name Role Phone Galina Smith D.O., PP Unavailable CCM Unavailable Summary Purpose Interface Exchange Insurance Providers Payer name Policy type / Coverage type Covered libertarian ID Effective Begin Date Effective End Date Blue Cross Blue Shield Blue Cross/Bl ue Shield [id number] 2017 Un known Family History Family History data not found Social History Social History Element Codes Description Effective Dates Tobacco history SNOMED CT: [id number] Currently uses smokeless tobacco 06/14/2011 Allergies, Adverse [...] Codes Condition Status Onset Date Resolved Date Encounter for afterc are following other organ transplant ICD-9: V58.44 ICD-10: Z48.298 Active 08/24/[address] [facility] ICD-9: V42.0 ICD-10: Z94.0 Active 08/24/2018 Unknown Mixed hyperlipidemia ICD-9: 272.4 ICD-10: E78.2 Active 07/17/2014 Unknown Other fpc (cur rent) drug therapy ICD-9: V58.69 ICD-10: Z79.899 Active 08/24/2018 Unknown 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 Active 08/24/2018 Unknown Essential (primary) hypertension ICD-9: 401.9 ICD-10: I10 Active 10/31/2013 Unknown Type 2 diabetes sol itus with [...] ICD-9: 110.4 ICD-10: B35.3 Active 04/05/2017 Unknown 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, 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 ICD-10: E10.9 Active 06/19/2016 Unknown Urinary tract infect ion, site not [...] Condition Codes Effectiv e Dates Condition Status Encounter for afterc are following other organ transplant ICD-9: V58.44 ICD-10: Z48.298 08/24/[address] at[facility] ICD-9: V42.0 ICD-10: Z94.0 08/24/2018 Active Mixed hyperlipidemia ICD-9: 272.4 ICD-10: E78.2 07/17/2014 Active Other assistant terminal manager (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 rent) drug therapy ICD-9: V58.69 ICD-10: Z79.899 08/24/2018 Active 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 08/24/2018 Active Essential (primary) hypertension ICD-9: 401.9 ICD-10: I10 10/31/2013 Active Type 2 diabetes sol itus with [...] pedis ICD-9: 110.4 ICD-10: B35.3 04/05/2017 Active 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, 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 ICD-10: E10.9 06/19/2016 Active Urinary tract infect ion, site not [...] 100 unit/mL (3 mL) subcutaneous pen RxNorm: 198200 90 Unit(s) SQ BID 01/08/2019 04/07/2019 Active Levemir FlexTouch U- 100 Insulin 100 unit/mL (3 mL) subcutaneous pen RxNorm: 136426 90 Unit(s) SQ BID 12/04/2018 12/03/2018 Inactive Levemir FlexTouch U- 100 Insulin 100 unit/mL (3 mL) subcutaneous pen RxNorm: 603265 90 Unit(s) SQ BID 12/04/2018 01/07/2019 Inactive Levemir FlexTouch U- 100 Insulin 100 unit/mL (3 mL) subcutaneous pen RxNorm: 368965 70 Unit(s) SQ BID 10/26/2018 12/04/2018 Inactive Levemir FlexTouch U- 100 Insulin 100 unit/mL (3 mL) subcutaneous pen RxNorm: 414436 GIVE 90 UNITS SUBCUTANEOUSLY TWICE DAILY 10/08/2018 10/26/2018 Inactive Levemir FlexTouch U- 100 Insulin 100 unit/mL (3 mL) subcutaneous pen RxNorm: 868034 90 Unit(s) SQ BID 07/30/2018 10/07/2018 Inactive Levemir FlexTouch U- 100 Insulin 100 unit/mL (3 mL) subcutaneous pen RxNorm: 336452 90 Unit(s) SQ BID 07/06/2018 07/29/2018 Inactive Pen Needle 31 gauge x 5/16" RxNorm: USE DIRECTED 03/21/2018 No Stop Date Active Levemir FlexTouch U- 100 Insulin 100 unit/mL (3 mL) subcutaneous pen RxNorm: 805298 80 Unit(s) SQ BID 02/15/2018 07/06/2018 Inactive Levemir FlexTouch U- 100 Insulin 100 unit/mL (3 mL) subcutaneous pen RxNorm: 012025 INJECT 105 UNITS SUBCUTANEOUSLY IN THE EVENING 01/24/2018 02/15/2018 Inactive Levemir FlexTouch U- 100 Insulin 100 unit/mL (3 mL) subcutaneous pen RxNorm: 782454 INJECT 105 UNITS SUBCUTANEOUSLY IN THE EVENING 12/26/2017 01/23/2018 Inactive Novolog Flexpen U-10 0 Insulin aspart 100 unit/mL subcutaneous RxNorm: 2500761 INJECT SUBCUTANEOUSLY NEEDED PER SLIDING SCALE 12/25/2017 No Stop Date Active Levemir FlexTouch U- 100 Insulin 100 unit/mL (3 mL) subcutaneous pen RxNorm: 404412 70 Unit(s) SQ BID 11/03/2017 11/03/2017 Inactive Levemir FlexTouch U- 100 Insulin 100 unit/mL (3 mL) subcutaneous pen RxNorm: 120746 105 Unit(s) SQ QPM 11/02/2017 11/02/2017 Inactive Levemir FlexTouch U- 100 Insulin 100 unit/mL (3 mL) subcutaneous pen RxNorm: 803057 105 Unit(s) SQ QPM Needs updated labs 11/01/2017 11/01/2017 Inactive Levemir FlexTouch U- 100 Insulin 100 unit/mL (3 mL) subcutaneous pen RxNorm: 617648 Unit(s) 105 Unit(s) SQ QPM 09/18/2017 09/18/2017 Inactive Levemir FlexTouch U- 100 Insulin 100 unit/mL (3 mL) subcutaneous pen RxNorm: 910670 105 Unit(s) SQ QPM 08/07/2017 09/18/2017 Inactive cephalexin 500 mg ca psule RxNorm: 854145 1 Capsule(s) PO BID 07/27/2017 08/02/2017 Inactive Levemir FlexTouch U- 100 Insulin 100 unit/mL (3 mL) subcutaneous pen RxNorm: 369559 105 Unit(s) SQ QPM 06/07/2017 06/07/2017 Inactive Levemir FlexTouch 10 0 unit/mL (3 mL) subcutaneous insulin pen RxNorm: 025375 105 Unit(s) SQ QPM 05/11/2017 06/07/2017 Inactive Lipitor 40 mg tablet RxNorm: 903335 1.5 Tablet(s) PO QD 04/05/2017 10/01/2017 Inactive Diovan 320 mg tablet RxNorm: 043959 1 Tablet(s) PO QD 04/05/2017 03/30/2018 Inactive Lipitor 40 mg tablet RxNorm: 721550 1 Tablet(s) PO QD 04/05/2017 04/04/2017 Inactive nystatin 100,000 uni t/gram topical ointment RxNorm: 784358 1 Gram(s) TOP BID 04/05/2017 05/02/2017 In active Levemir FlexTouch 10 0 unit/mL (3 mL) subcutaneous insulin pen RxNorm: 399374 105 Unit(s) SQ QPM 04/05/2017 04/05/2017 Inactive Levemir FlexTouch 10 0 unit/mL (3 mL) subcutaneous insulin pen RxNorm: 338213 90 Unit(s) SQ QPM LAST REFILL UNTIL LABS AND APPOINTMENT!!!! 04/05/2017 05/11/2017 Inactive Novolog Flexpen 100 unit/mL subcutaneous RxNorm: 9936835 Unit(s) INJECT SUBCU TANEOUSLY NEEDED PER SLIDING SCALE---NEEDS UPDATED LABS 03/07/2017 12/03/2018 Inactive Levemir FlexTouch 10 0 unit/mL (3 mL) subcutaneous insulin pen RxNorm: 086187 90 Unit(s) SQ QPM LAST REFILL UNTIL LABS AND APPOINTMENT!!!! 02/17/2017 03/18/2017 Inactive Levemir FlexTouch 10 0 unit/mL (3 mL) subcutaneous insulin pen RxNorm: 805819 90 Unit(s) SQ QPM NEEDS FASTING LABS AND APPOINTMENT BEFORE FURTHER REFILLS 12/22/2016 02/17/2017 In active Novolog Flexpen U-10 0 Insulin aspart 100 unit/mL subcutaneous RxNorm: 8492254 Unit(s) INJECT SUBCUTANEOUSLY NEEDED PER SLIDING SCALE---NEEDS UPDATED LABS 11/28/2016 03/07/2017 Inactive Levemir FlexTouch 10 0 unit/mL (3 mL) subcutaneous insulin pen RxNorm: 118212 90 Unit(s) VAG QPM 11/08/2016 12/22/2016 Inactive Levemir FlexTouch 10 0 unit/mL (3 mL) subcutaneous insulin pen RxNorm: 626999 90 Unit(s) VAG QPM 11/08/2016 12/21/2016 Inactive Levemir FlexTouch 10 0 unit/mL (3 mL) subcutaneous insulin pen RxNorm: 598653 80 Unit(s) VAG QPM 09/05/2016 11/08/2016 Inactive Levemir FlexTouch 10 0 unit/mL (3 mL) subcutaneous insulin pen RxNorm: 112384 85 Unit(s) SQ QD 07/22/2016 09/05/2016 Inactive Levemir FlexTouch 10 0 unit/mL (3 mL) subcutaneous insulin pen RxNorm: 651396 85 Unit(s) SQ QD 07/04/2016 07/21/2016 Inactive Levemir FlexTouch 10 0 unit/mL (3 mL) subcutaneous insulin pen RxNorm: 695431 85 Unit(s) SQ QD 06/14/2016 06/19/2016 Inactive Levemir FlexTouch 10 0 unit/mL (3 mL) subcutaneous insulin pen RxNorm: 536145 85 Unit(s) SQ QD 05/03/2016 05/22/2016 Inactive Levemir FlexTouch 10 0 unit/mL (3 mL) subcutaneous insulin pen RxNorm: 730950 85 Unit(s) SQ QD 05/03/2016 05/02/2016 Inactive Levemir FlexTouch 10 0 unit/mL (3 mL) subcutaneous insulin pen RxNorm: 178327 85 Unit(s) SQ QD 03/14/2016 04/22/2016 Inactive cefuroxime axetil 25 0 mg tablet RxNorm: 931948 1 Tablet(s) PO BID 02/16/2016 02/25/2016 Inactive Levemir FlexTouch 10 0 unit/mL (3 mL) subcutaneous insulin pen RxNorm: 229776 85 Unit(s) SQ QD 02/03/2016 03/13/2016 Inactive Levemir FlexTouch 10 0 unit/mL (3 mL) subcutaneous insulin pen RxNorm: 034386 85 Unit(s) SQ QD 12/07/2015 02/02/2016 Inactive Pen Needle 31 gauge x 5/16" RxNorm: USE DIRECTED 11/19/2015 05/16/2016 Inactive Levemir FlexTouch 10 0 unit/mL (3 mL) subcutaneous insulin pen RxNorm: 548303 INJECT 75 UNITS SUBCUTANEOUSLY ONCE DAILY; NEED LABS AND APPT 10/06/2015 12/04/2015 Inactive Novolog Flexpen 100 unit/mL subcutaneous RxNorm: 8588340 INJECT SUBCUTANEOUSL Y NEEDED PER SLIDING SCALE 09/15/2015 11/28/2016 Inactive Levemir FlexTouch 10 0 unit/mL (3 mL) subcutaneous insulin pen RxNorm: 751710 75 Unit(s) SQ QD Needs lab and appointment 07/13/2015 10/05/2015 Inactive Lyrica 75 mg capsule RxNorm: 233001 1 Capsule(s) PO BID 06/24/2015 07/23/2015 Inactive Levemir FlexTouch 10 0 unit/mL (3 mL) subcutaneous insulin pen RxNorm: 227645 75 Unit(s) SQ QD Needs lab and appointment 06/23/2015 07/12/2015 Inactive Novolog Flexpen 100 unit/mL subcutaneous RxNorm: 0399993 Unit(s) SQ as needed Sliding scale 06/15/2015 09/14/2015 Inactive Flonase Allergy Reli ef 50 mcg/actuation nasal spray,suspension RxNorm: 2 [place] NASAL QHS 06/11/2015 12/02/2015 Inactive prednisone 20 mg tablet RxNorm: 368046 1 Tablet(s) PO TID for 3 days then 1 po BID for 3 days then one daily for 3 days 06/11/2015 12/02/2015 Inactive cefdinir 300 mg capsule RxNorm: 943036 2 Capsule(s) PO QD 06/11/2015 06/24/2015 Inactive Levemir FlexTouch 10 0 unit/mL (3 mL) subcutaneous insulin pen RxNorm: 047393 75 Unit(s) SQ QD Needs lab and appointment 05/29/2015 06/22/2015 Inactive Novolog 100 unit/mL subcutaneous solution RxNorm: 098311 Unit(s) SQ Inject as directed using sliding scale B 05/29/2015 12/03/2018 Inactive Levemir Flexpen 100 unit/mL (3 mL) solution subcutaneous insulin pen RxNorm: 398994 INJECT 75 UNITS SUBCUTANEOUSLY EVERY DAY 05/11/2015 05/29/2015 Inactive Levemir FlexTouch 10 0 unit/mL (3 mL) subcutaneous insulin pen RxNorm: 940108 75 Unit(s) SQ QHS 03/30/2015 12/03/2018 Inactive Levemir FlexTouch 10 0 unit/mL (3 mL) subcutaneous insulin pen RxNorm: 240725 75 Unit(s) SQ QHS 03/09/2015 03/29/2015 Inactive Contour Test Strips RxNorm: Miscellaneous 01/27/2015 No Stop Date Active Novolog 100 unit/mL subcutaneous solution RxNorm: 568303 Unit(s) SQ Inject as directed using sliding scale B 01/27/2015 05/29/2015 Inactive Levemir Flexpen 100 unit/mL (3 mL) solution subcutaneous insulin pen RxNorm: 310779 INJECT 75 UNITS SUBCUTANEOUSLY EVERY DAY 11/05/2014 03/09/2015 Inactive Levemir Flexpen 100 unit/mL (3 mL) solution subcutaneous insulin pen RxNorm: 187943 INJECT 75 UNITS SUBCUTANEOUSLY EVERY DAY 08/13/2014 10/31/2014 Inactive Novolog 100 unit/mL subcutaneous solution RxNorm: 095840 Unit(s) SQ Inject as directed using sliding scale B 07/15/2014 01/26/2015 Inactive Apidra SoloStar 100 unit/mL subcutaneous insulin pen RxNorm: 593824 Unit(s) SQ INJECT DIRECTED USING SLIDING SCALE B 07/11/2014 07/14/2014 Inactive Diovan 320 mg tablet RxNorm: 317652 1 Tablet(s) PO QD 06/10/2014 06/04/2015 Inactive Apidra SoloStar 100 unit/mL subcutaneous insulin pen RxNorm: 449411 Unit(s) SQ INJECT DIRECTED USING SLIDING SCALE B 04/18/2014 07/10/2014 Inactive Levemir Flexpen 100 unit/mL (3 mL) solution subcutaneous insulin pen RxNorm: 965931 Unit(s) SQ INJECT 75 UNITS SUBCUTANEOUSLY EVERY DAY 02/28/2014 02/27/2014 Inactive [SAVINGS FOR UNINSURED PATIENTS -- BIN:[id number], PCN: [id number], Group: [id number], ID# [id number], Process claim through [employer], for questions: . THIS IS NOT INSURANCE.] Apidra SoloStar 100 unit/mL subcutaneous insulin pen RxNorm: 817293 Unit(s) SQ INJECT DIRECTED USING SLIDING SCALE B 09/05/2013 04/17/2014 Inactive Pen Needle 31 gauge x 5/16" RxNorm: Miscellaneous USE DIRECT ED WITH LEVEMIR AND APIDRA 08/23/2013 11/18/2015 Inactive Prograf 1 mg capsule RxNorm: 575450 2 Capsule(s) PO BID Generic OK to fill 08/21/2013 No Stop Date Active Diovan 320 mg tablet RxNorm: 587236 1 Tablet(s) PO QD 05/30/2013 05/24/2014 Inactive fluoxetine 20 mg tablet RxNorm: 453117 1 Tablet(s) PO QAM 05/30/2013 07/31/2013 Inactive amlodipine 5 mg tablet RxNorm: 005865 1 Tablet(s) PO QD 04/29/2013 04/23/2014 Inactive fluoxetine 20 mg tablet RxNorm: 930281 1 Tablet(s) PO QAM 04/29/2013 05/29/2013 Inactive ketoconazole 2 % top ical cream RxNorm: 017210 Application TOP BID f or 2-4wks 04/29/2013 05/12/2013 In active Diovan 320 mg tablet RxNorm: 816825 1 Tablet(s) PO QD 04/29/2013 06/10/2014 Inactive Apidra SoloStar 100 unit/mL subcutaneous insulin pen RxNorm: 837490 Unit(s) SQ Sliding Scale B 02/19/2013 09/05/2013 Inactive Levemir Flexpen 100 unit/mL (3 mL) solution subcutaneous insulin pen RxNorm: 758787 Insulin Pen SQ INJECT 75 UNITS SUBCUTANEOUSLY EVERY DA Y 01/21/2013 02/28/2014 Inactive Septra DS 800 mg-160 mg tablet RxNorm: 272702 1 Tablet(s) PO BID an tibiotic 01/01/2013 01/07/2013 In active ketoconazole 2 % top ical cream RxNorm: 375002 1 Application TOP BID 01/01/2013 01/14/2013 Inactive Levemir Flexpen 100 unit/mL (3 mL) Sub-Q Insulin Pen RxNorm: 301676 Unit(s) SQ INJECT 75 UNITS SUB-Q ONCE A DAY 12/07/2012 No Stop Date Active Levemir Flexpen 100 unit/mL (3 mL) Sub-Q Insulin Pen RxNorm: 174238 Unit(s) SQ INJECT 75 UNITS SUB-Q ONCE A DAY 10/22/2012 12/07/2012 Inactive Levemir Flexpen 100 unit/mL (3 mL) Sub-Q Insulin Pen RxNorm: 353100 75 Unit(s) SQ QHS 08/20/2012 10/22/2012 Inactive Diovan 320 mg tablet RxNorm: 640385 1 Tablet(s) PO QD 07/30/2012 04/28/2013 Inactive Levemir Flexpen 100 unit/mL (3 mL) Sub-Q Insulin Pen RxNorm: 052975 Insulin Pen SQ INJECT 75 UNITS SUB-Q ONCE A DAY 07/30/2012 10/21/2012 Inactive Levemir Flexpen 100 unit/mL (3 mL) Sub-Q Insulin Pen RxNorm: 276732 75 Unit(s) SQ QHS 07/30/2012 08/19/2012 Inactive Levemir Flexpen 100 unit/mL (3 mL) Sub-Q Insulin Pen RxNorm: 568886 75 Unit(s) SQ QHS 07/30/2012 07/29/2012 Inactive Diovan 320 mg tablet RxNorm: 211245 1 Tablet(s) PO QD 06/21/2012 06/20/2012 Inactive Diovan 320 mg tablet RxNorm: 369694 1 Tablet(s) PO QD 06/21/2012 06/20/2012 Inactive Diovan 320 mg tablet RxNorm: 810104 1 Tablet(s) PO QD 06/21/2012 07/29/2012 Inactive CellCept 250 mg capsule RxNorm: 163967 4 Capsule(s) PO BID 06/14/2012 06/20/2012 Inactive Prograf 1 mg capsule RxNorm: 779137 2 Capsule(s) PO BID Generic OK to fill 06/14/2012 06/20/2012 In active Apidra SoloStar 100 unit/mL Sub-Q Insulin Pen RxNorm: 038224 Unit(s) SQ Sliding Sc supriya B 06/13/2012 12/03/2018 Inactive Levemir Flexpen 100 unit/mL (3 mL) Sub-Q Insulin Pen RxNorm: 931557 75 Unit(s) SQ QD 06/13/2012 No Stop Date Active Apidra SoloStar 100 unit/mL Sub-Q Insulin Pen RxNorm: 879920 Unit(s) SQ Sliding Sc supriya B 06/13/2012 No Stop Date Active One Touch Delkaren Adeel cets RxNorm: Miscellaneous 0 06/13/2012 04/04/2017 Inactive Lipitor 40 mg tablet RxNorm: 009613 1 Tablet(s) PO QD 05/30/2012 08/27/2012 Inactive Diovan 320 mg tablet RxNorm: 210473 1 Tablet(s) PO QD 05/30/2012 06/20/2012 Inactive Tricor 145 mg tablet RxNorm: 516818 1 Tablet(s) PO QD 05/30/2012 08/27/2012 Inactive Lipitor 20 mg Tab RxNorm: 634476 1 Tablet(s) PO QD 09/12/2011 05/29/2012 Inactive Synthroid 50 mcg Tab RxNorm: 103739 1 Tablet(s) PO QD 09/12/2011 12/02/2015 Inactive Diovan 320 mg tablet RxNorm: 027634 1 Tablet(s) PO QD 09/12/2011 03/09/2012 Inactive amlodipine 5 mg tablet RxNorm: 668917 1 Tablet(s) PO QD 09/12/2011 03/09/2012 Inactive Diovan 320 mg Tab RxNorm: 556409 1 Tablet(s) PO QD 06/14/2011 09/11/2011 Inactive Diovan 160 mg Tab RxNorm: 255403 1 Tablet(s) PO QD 03/03/2011 06/13/2011 Inactive cefdinir 300 mg Cap RxNorm: 736253 2 Capsule(s) PO QD 01/27/2011 02/05/2011 Inactive Synthroid 50 mcg Tab RxNorm: 204228 1 Tablet(s) PO QD 12/02/2010 01/30/2011 Inactive Multivitamin & [place] al Formula Tab RxNorm: 1 Tablet(s) PO QD No Start Date Active Miralax 17 gram/dose oral powder RxNorm: 121708 PO BID in 6-8 ounces of water No Start Date Active Tylenol Extra Streng th 500 mg tablet RxNorm: 978831 Tablet(s) PO as neede d No Start Date Active Tricor Oral RxNorm: Oral No Start Date 05/29 Inactive MagOx 400 mg tablet RxNorm: 064782 1 Tablet(s) PO QD No Start Date 06/19/2016 Inactive sodium bicarbonate Oral RxNorm: Oral No Start Date 06/19/2016 Inactive Fish Oil 1,000 mg ca psule RxNorm: 1 Capsule(s) PO QD No Start Date 04/04/2017 Inactive Novofine Misc RxNorm: Miscellaneous No Start Date 06/12/2012 Inactive Percocet 5 mg-325 mg tablet RxNorm: 2958913 Tablet(s) PO as need ed Dr Parson No Start Date 04/04/2017 Inactive Contour Test Strips RxNorm: miscellaneous No Start Date 01/26/2015 Inactive Prograf 1 mg capsule RxNorm: 037513 2 Capsule(s) PO BID No Start Date 06/13/2012 Inactive Zantac 150 mg Tab RxNorm: 508630 Tablet(s) PO PRN No Start Date 12/02/2015 Inactive Levemir FlexTouch 10 0 unit/mL (3 mL) subcutaneous insulin pen RxNorm: 786976 75 Unit(s) SQ QHS No Start Date 03/08/2015 Inactive CellCept 250 mg capsule RxNorm: 968550 4 Capsule(s) PO BID No Start Date 06/13/2012 Inactive Novolog 100 unit/mL subcutaneous solution RxNorm: 389074 Unit(s) SQ Inject as directed using sliding scale B No Start Date 07/14/2014 Inactive Novolog Flexpen 100 unit/mL subcutaneous RxNorm: 5848165 Unit(s) SQ as needed Sliding scale No Start Date 06/14/2015 Inactive Apidra SoloStar 100 unit/mL Sub-Q Insulin Pen RxNorm: 700706 Unit(s) SQ Sliding Sc supriya B No Start Date 06/12/2012 Inactive Levemir FlexTouch U- 100 Insulin 100 unit/mL (3 mL) subcutaneous pen RxNorm: 739581 70 Unit(s) SQ BID No Start Date 02/06/2018 Inactive Pen Needle 31 X 5/16" RxNorm: Miscellaneous No Start Date 08/23/2013 Inactive Synthroid 50 mcg Tab RxNorm: 348311 1 Tablet(s) PO QD No Start Date 09/11/2011 Inactive Levemir Flexpen 100 unit/mL (3 mL) Sub-Q Insulin Pen RxNorm: 078793 70 Unit(s) SQ QHS No Start Date 07/29/2012 Inactive Levemir FlexTouch U- 100 Insulin 100 unit/mL (3 mL) subcutaneous pen RxNorm: 257208 80 Unit(s) SQ BID No Start Date 02/14/2018 Inactive Levemir FlexTouch 10 0 unit/mL (3 mL) subcutaneous insulin pen RxNorm: 754995 80 Unit(s) SQ QPM No Start Date 09/04/2016 Inactive Lipitor 40 mg tablet RxNorm: 808848 1 Tablet(s) PO QD No Start Date 04/04/2017 Inactive Ultram 50 mg tablet RxNorm: 783871 2 Tablet(s) PO TID as needed for pain No Start Date 06/10/2015 Inactive Prograf 1 mg Cap RxNorm: 541391 2 Capsule(s) PO BID No Start Date 05/20/2012 Inactive insulin needles (dis posable) 32 x 5/16" RxNorm: Miscellaneous for use with flex pen No Start Date 04/04/2017 Inactive Levemir FlexTouch U- 100 Insulin 100 unit/mL (3 mL) subcutaneous pen RxNorm: 802417 90 Unit(s) SQ BID No Start Date 07/05/2018 Inactive Levemir Flexpen 100 unit/mL (3 mL) Sub-Q Insulin Pen RxNorm: 270590 65 Unit(s) SQ QD No Start Date 06/12/2012 Inactive Zithromax Z-Mateus 250 mg Tab RxNorm: 394657 Tablet(s) PO No Start Date 06/13/2011 Inactive as directed Lipitor 20 mg Tab RxNorm: 385112 1 Tablet(s) PO QD No Start Date [...] completed Assessments Condition Codes Effectiv e Dates Kidney transplant status ICD-10: Z94 .0 ICD-9: V42.0 08/24/2018 Encounter for aftercare following other organ transpla nt ICD- 10: Z48.298 ICD-9: V58.44 08/24/2018 Mixed hyperlipidemia ICD-10: E78.2 ICD-9: 272.4 08/24/2018 Other fpc (current) drug therapy ICD-10: Z79.899 ICD-9: V58.69 08/24/2018 Pancreas transplant status ICD-10: Z 94.83 ICD-9: V42.83 08/24/2018 Type 2 diabetes mellitus with diabetic n europathy, unspecified ICD-10: E11.40 ICD-9: 250.60 06/29/2018 Essential (primary) hypertension ICD -10: I10 ICD-9: 401.9 06/29/2018 Type 2 diabetes mellitus with hyperglycemia [...] Tinea pedis ICD-10: B35.3 ICD-9: 110.4 04/05/2017 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, UNCONTROLLED ICD-10: E10.9 ICD-9: 250.03 06/20/2016 Urinary tract infection, site not specified ICD-10: [...] For Visit Effective Dates Notes lab draw 08/24/2018 lab draw 06/29/2018 constipation [...] Item Item Code Result Date [facility] 19379 Choles terol 320 mg/dL 08/27/2018 [facility] 50741 Trigly ceride 444 mg/dL 08/27/2018 [facility] 39016 HDL CH OLESTEROL 39 mg/dL 08/27/2018 [facility] 92619 Chol/H DL Ratio 8.21 ratio 08/27/2018 [facility] 05642 NON-HD L Chol 281 mg/dL 08/27/2018 [facility] 37886 LDL Ch olesterol N/A Trig >400 019 [facility] 20766 Fasting Unknown 08/27/2018 PHOSPHORUS 0319924 PHOSP HORUS 2.1 mg/dL 08/24/2018 PROTEIN/CREAT URINE WITH RATIO 39275|66973 U Protein 515 mg/dL 08/24/2018 PROTEIN/CREAT URINE WITH RATIO 93044|56406 U Creatinine 116 mg/dL 08/24/2018 PROTEIN/CREAT URINE WITH RATIO 77364|83542 Prot:Creat Rat 4440 mg/g 08/24/2018 MAGNESIUM 35522 MAGNESIUM 1.4 mEq/L 08/24/2018 GFR CALC 8992328 GFR Non Afr Amr 44 mL/min 08/24/2018 GFR CALC 8556243 GFR Afr Amr 53 mL/min 08/24/2018 [place] [address] Glucose TNP:Unknown Cancel Reason 08/24/2018 [place] [address] CREATININE TNP:Unknown Cancel Reason 08/24/2018 [place] [address] BUN TNP:Unknown Cancel Reason 08/24/2018 [place] [address] SODIUM TNP:Unknown Cancel Reason 08/24/2018 [place] [address] POTASSIUM TNP:Unknown Cancel Reason 08/24/2018 [place] [address] CHLORIDE TNP:Unknown Cancel Reason 08/24/2018 [place] [address] Bicarbonate TNP:Unknown Cancel Reason 08/24/2018 [place] [address] AGAP TNP:Unknown Cancel Reason 08/24/2018 [place] [address] CALCIUM TNP:Unknown Cancel Reason 08/24/2018 COMPREHENSIVE METABOLIC 93412 AST 21 U/L 08/24/2018 COMPREHENSIVE METABOLIC 05768 ALT 35 U/L 08/24/2018 COMPREHENSIVE METABOLIC 89476 BUN 25 mg/dL 08/24/2018 COMPREHENSIVE METABOLIC 48780 ALBUMIN 4.5 g/dL 08/24/2018 COMPREHENSIVE METABOLIC 30133 CHLORIDE 106 mmol/L 08/24/2018 COMPREHENSIVE METABOLIC 11930 Bili Total 0.4 mg/dL 08/24/2018 COMPREHENSIVE METABOLIC 08352 ALK PHOS 64 U/L 08/24/2018 COMPREHENSIVE METABOLIC 62586 SODIUM 141 mmol/L 08/24/2018 COMPREHENSIVE METABOLIC 84659 CREATININE 1.81 mg/dL 08/24/2018 COMPREHENSIVE METABOLIC 51552 CALCIUM 10.3 mg/dL 08/24/2018 COMPREHENSIVE METABOLIC 40518 POTASSIUM 3.4 mmol/L 08/24/2018 COMPREHENSIVE METABOLIC 64100 Total Protein 7.2 g/dL 08/24/2018 COMPREHENSIVE METABOLIC 45913 Glucose 101 mg/dL 08/24/2018 COMPREHENSIVE METABOLIC 32938 Bicarbonate 23 mmol/L 08/24/2018 COMPREHENSIVE METABOLIC 48852 AGAP 12 mmol/L 08/24/2018 UA W/MICR 87089 UA Urine Appear Normal 08/24/2018 UA W/MICR 06440 UA Prote in 3+ 08/24/2018 UA W/MICR 99087 UA Hemog lobin Trace 08/24/2018 UA W/MICR 62861 UA Gluco se 3+ 08/24/2018 UA W/MICR 52969 UA [place] es Negative 08/24/2018 UA W/MICR 37452 UA pH 6.0 08/24/2018 UA W/MICR 16863 U Spec G ravity 1.025 08/24/2018 UA W/MICR 75084 UA Bilir ubin Negative 08/24/2018 UA W/MICR 00796 UA Leuk Esteras Negative 08/24/2018 UA W/MICR 50206 UA Nitri te NEG 08/24/2018 UA W/MICR 02603 UA RBC a uto 12.9 /uL 08/24/2018 UA W/MICR 73529 UA WBC/h pf 1 08/24/2018 UA W/MICR 22190 UA RBC h pf 2 08/24/2018 UA W/MICR 32914 UA WBC a uto 5.9 /uL 08/24/2018 UA W/MICR 08193 UA SQ EP I auto 5.2 /uL 08/24/2018 UA W/MICR 14573 UA H Jamli t auto 0.10 /uL 08/24/2018 PROGRAF 0865997 Prograf 7.3 ng/mL 08/24/2018 MICROALBUMIN URINE RANDOM 71991 U Microalbumin 3485.2 mg/L 08/24/2018 MICROALBUMIN URINE RANDOM 69756 U Creatinine 116 mg/dL 08/24/2018 MICROALBUMIN URINE RANDOM 40799 ALB/CR Ratio 3004.5 mg/gCR 08/25/19 19 GLYCOSYLATED HEMOGLOBIN TEST 60658 Hgb A1c 45548-7 13.3 % 9 MEAN GLUC 0756993 Calc M sherron Gluc 335 mg/dL 06/29/2018 COMPREHENSIVE METABOLIC 77030 AST 17 U/L 02/06/2018 COMPREHENSIVE METABOLIC 33526 ALT 24 U/L 02/06/2018 COMPREHENSIVE METABOLIC 39779 BUN 24 mg/dL 02/06/2018 COMPREHENSIVE METABOLIC 59586 ALBUMIN 3.9 g/dL 02/06/2018 COMPREHENSIVE METABOLIC 56698 CHLORIDE 108 mmol/L 02/06/2018 COMPREHENSIVE METABOLIC 75574 Bili Total 0.6 mg/dL 02/06/2018 COMPREHENSIVE METABOLIC 66794 ALK PHOS 67 U/L 02/06/2018 COMPREHENSIVE METABOLIC 63249 SODIUM 140 mmol/L 02/06/2018 COMPREHENSIVE METABOLIC 15379 CREATININE 1.75 mg/dL 02/06/2018 COMPREHENSIVE METABOLIC 83231 CALCIUM 9.6 mg/dL 02/06/2018 COMPREHENSIVE METABOLIC 07874 POTASSIUM 3.8 mmol/L 02/06/2018 COMPREHENSIVE METABOLIC 58713 Total Protein 7.1 g/dL 02/06/2018 COMPREHENSIVE METABOLIC 42300 Glucose 62 mg/dL 02/06/2018 COMPREHENSIVE METABOLIC 66241 Bicarbonate 23 mmol/L 02/06/2018 COMPREHENSIVE METABOLIC 91942 AGAP 9 mmol/L 02/06/2018 GLYCOSYLATED HEMOGLOBIN TEST 75950 Hgb A1c 73044-2 13.0 % 8 GFR CALC [id number] GFR Non Afr Amr 46 mL/min 02/06/2018 GFR CALC [id number] GFR Afr Amr 55 mL/min 02/06/2018 MICROALBUMIN URINE RANDOM 25440 U Microalbumin 669.0 mg/L 02/06/2018 MICROALBUMIN URINE RANDOM 08322 U Creatinine 92 mg/dL 02/06/2018 MICROALBUMIN URINE RANDOM 25143 ALB/CR Ratio 727.2 mg/gCR 8 MEAN GLUC Calc M sherron Gluc 326 mg/dL 02/06/2018 GLYCOSYLATED HEMOGLOBIN TEST 01686 Hgb A1c 89073-2 14.3 % 6 THYROID STIMULATING HORMONE 27656 TSH 1.909 uIU/mL 6 MAGNESIUM 19785 MAGNESIUM 1.5 mEq/L 12/03/2015 GFR CALC 8190710 GFR Non Afr Amr 39 mL/min 12/03/2015 GFR CALC 0988507 GFR Afr Amr 48 mL/min 12/03/2015 MEAN GLUC 3376969 Mean G lucose 364 mg/dL 12/03/2015 COMPREHENSIVE METABOLIC 87307 AST 34 U/L 12/03/2015 COMPREHENSIVE METABOLIC 90192 ALT 78 U/L 12/03/2015 COMPREHENSIVE METABOLIC 40432 BUN 29 mg/dL 12/03/2015 COMPREHENSIVE METABOLIC 46173 ALBUMIN 4.3 g/dL 12/03/2015 COMPREHENSIVE METABOLIC 50085 CHLORIDE 93 mmol/L 12/03/2015 COMPREHENSIVE METABOLIC 84752 Bili Total 0.7 mg/dL 12/03/2015 COMPREHENSIVE METABOLIC 30624 ALK PHOS 83 U/L 12/03/2015 COMPREHENSIVE METABOLIC 79556 SODIUM 125 mmol/L 12/03/2015 COMPREHENSIVE METABOLIC 48549 CREATININE 2.01 mg/dL 12/03/2015 COMPREHENSIVE METABOLIC 70780 CALCIUM 9.8 mg/dL 12/03/2015 COMPREHENSIVE METABOLIC 31057 POTASSIUM 4.3 mmol/L 12/03/2015 COMPREHENSIVE METABOLIC 88468 Total Protein 7.3 g/dL 12/03/2015 COMPREHENSIVE METABOLIC 95458 Glucose 542 mg/dL 12/03/2015 COMPREHENSIVE METABOLIC 36907 Bicarbonate 23 mmol/L 12/03/2015 COMPREHENSIVE METABOLIC 79887 AGAP 9 mmol/L 12/03/2015 COMPREHENSIVE METABOLIC 59359 AST 31 U/L 07/30/2013 COMPREHENSIVE METABOLIC 85551 ALT 52 IU/L 07/30/2013 COMPREHENSIVE METABOLIC 48496 BUN 26 MG/DL 07/30/2013 COMPREHENSIVE METABOLIC 97935 ALBUMIN 4.9 GM/DL 07/30/2013 COMPREHENSIVE METABOLIC 48924 CHLORIDE 108 MMOL/L 07/30/2013 COMPREHENSIVE METABOLIC 73419 BILI TOT 0.4 MG/DL 07/30/2013 COMPREHENSIVE METABOLIC 72085 ALK PHOS 68 U/L 07/30/2013 COMPREHENSIVE METABOLIC 68115 SODIUM 138 MMOL/L 07/30/2013 COMPREHENSIVE METABOLIC 19645 CREATININE 2.02 MG/DL 07/30/2013 COMPREHENSIVE METABOLIC 55574 CALCIUM 10.3 MG/DL 07/30/2013 COMPREHENSIVE METABOLIC 01128 POTASSIUM 5.0 MMOL/L 07/30/2013 COMPREHENSIVE METABOLIC 69896 PROT TOT 7.3 GM/DL 07/30/2013 COMPREHENSIVE METABOLIC 14644 Glucose 89 MG/DL 07/30/2013 COMPREHENSIVE METABOLIC 13548 BICARB 24 MMOL/L 07/30/2013 COMPREHENSIVE METABOLIC 55086 ANION GAP 6 MEQ/L 07/30/2013 GFR CALC 7906492 GFR AA 48.0L ML/MIN 07/30/2013 GFR CALC 4868306 GFR NON -AA 40.0L ML/MIN 4 COMPLETE BLOOD COUNT 1548899 WBC 7.9 10e9/L 07/30/2013 COMPLETE BLOOD COUNT 2506223 RBC 4.94 10e12/L 4 COMPLETE BLOOD COUNT 5197882 HGB 14.0 g/dL 07/30/2013 COMPLETE BLOOD COUNT 6660118 HCT DET 41.5 % 07/30/2013 COMPLETE BLOOD COUNT 9823383 MCV 84.0 fL 07/30/2013 COMPLETE BLOOD COUNT 0596305 MCH 28.3 pg 07/30/2013 COMPLETE BLOOD COUNT 5099794 MCHC 33.7 g/dL 07/30/2013 COMPLETE BLOOD COUNT 7504761 PLT 176 10e9/L 07/30/2013 COMPLETE BLOOD COUNT 3294463 MPV 11.8 fL 07/30/2013 COMPLETE BLOOD COUNT 0888296 CLAYTON % 75.4 % 07/30/2013 COMPLETE BLOOD COUNT 6199669 LY % 13.7 % 07/30/2013 COMPLETE BLOOD COUNT 7085283 MON % 8.9 % 07/30/2013 COMPLETE BLOOD COUNT 7243369 EOS % 1.7 % 07/30/2013 COMPLETE BLOOD COUNT 3397247 BASO % 0.3 % 07/30/2013 COMPLETE BLOOD COUNT 5542936 RDW 13.4 % 07/30/2013 COMPLETE BLOOD COUNT 5763037 ABS CLAYTON 5.96 10e9/L 07/30/2013 COMPLETE BLOOD COUNT 8368283 ABS LYMPH 1.08 10e9/L 07/30/2013 COMPLETE BLOOD COUNT 4831147 ABS MONO 0.70 10e9/L 07/30/2013 COMPLETE BLOOD COUNT 2985785 ABS EOS 0.13 10e9/L 07/30/2013 COMPLETE BLOOD COUNT 5078583 ABS BASO 0.02 10e9/L 07/30/2013 COMPLETE BLOOD COUNT 0985662 RDW-SD 40.2 fL 07/30/2013 C-REACTIVE PROTEIN (CRP) QUANT 55190 CRP 0.2 MG/DL 07/30/2013 CANCEL 8577473 CANCEL FOOTNOTE 05/23/2012 PEND CHEM PEND C HEM FOOTNOTE 05/22/2012 COMPREHENSIVE METABOLIC 26485 AST 61 U/L 05/21/2012 COMPREHENSIVE METABOLIC 88654 ALT 106 U/L 05/21/2012 COMPREHENSIVE METABOLIC 34996 BUN 33 MG/DL 05/21/2012 COMPREHENSIVE METABOLIC 30927 ALBUMIN 5.0 GM/DL 05/21/2012 COMPREHENSIVE METABOLIC 45548 CHLORIDE 89 MMOL/L 05/21/2012 COMPREHENSIVE METABOLIC 38732 BILI TOT 0.6 MG/DL 05/21/2012 COMPREHENSIVE METABOLIC 43009 ALK PHOS 129 U/L 05/21/2012 COMPREHENSIVE METABOLIC 29385 SODIUM 120 MMOL/L 05/21/2012 COMPREHENSIVE METABOLIC 54087 CREATININE 2.23 MG/DL 05/21/2012 COMPREHENSIVE METABOLIC 33450 CALCIUM 9.8 MG/DL 05/21/2012 COMPREHENSIVE METABOLIC 91300 POTASSIUM 5.3 MMOL/L 05/21/2012 COMPREHENSIVE METABOLIC 08780 PROT TOT 7.8 GM/DL 05/21/2012 COMPREHENSIVE METABOLIC 22936 Glucose 789 MG/DL 05/21/2012 COMPREHENSIVE METABOLIC 98970 BICARB 20 MMOL/L 05/21/2012 COMPREHENSIVE METABOLIC 60984 ANION GAP 11 MMOL/L 05/21/2012 GFR CALC 3065414 GFR AA 43.0L ML/MIN 05/21/2012 GFR CALC 1787454 GFR NON -AA 36.0L ML/MIN 2 THYROID STIMULATING HORMONE 30538 TSH 1.499 uIU/ML 1 FREE T4 49605 FREE T4 1.15 NG/DL 01/27/2011 Review of [...] Lymphatic neck nodes Overall: anterior cervical chain ksasie ign 07/30/2013 None Full Exam - General [...] cyanosis 12/02/2010 None Procedures Procedure Codes Date METABOLIC PANEL TOTA L CA CPT-4: 24575 08/24/2018 COMPREHEN METABOLIC PANEL CPT-4: 24945 08/24/2018 ASSAY OF MAGNESIUM CPT- 4: 60756 08/24/2018 MICROALBUMIN QUANTIT ATIVE CPT-4: 54004 08/24/2018 PROTEIN/CREAT URINE WITH RATIO CPT-4: 62596|66207 08/24/2018 PHOSPHORUS CPT-4: 5932859 08/24/2018 LIPID PANEL CPT-4: 24663 08/24/2018 ROUTINE VENIPUNCTURE CPT-4: 77384 06/29/2018 A1C HPLC CPT-4: 64004 06/29/2018 URINALYSIS NONAUTO W /O SCOPE CPT-4: 28005 02/06/2018 URINE CULTURE/ COLON Y COUNT CPT-4: 64408 02/06/2018 MICROALBUMIN QUANTIT ATIVE CPT-4: 80044 02/06/2018 ROUTINE VENIPUNCTURE CPT-4: 10223 02/06/2018 COMPREHEN METABOLIC PANEL CPT-4: 40624 02/06/2018 A1C HPLC CPT-4: 37389 02/06/2018 ROUTINE VENIPUNCTURE CPT-4: 39880 11/02/2017 COMPREHEN METABOLIC PANEL CPT-4: 71591 11/02/2017 A1C HPLC CPT-4: 49390 11/02/2017 TDAP VACCINE 7 YRS/> IM CPT-4: 21276 07/27/2017 IMMUNIZATION ADMIN CPT- 4: 47447 07/27/2017 URINALYSIS NONAUTO W /O SCOPE CPT-4: 38149 02/16/2016 URINE CULTURE/ COLON Y COUNT CPT-4: 80268 02/16/2016 PRESCRIP TRANSMIT A ERX SY CPT-4: G8553 02/16/2016 ROUTINE VENIPUNCTURE CPT-4: 09800 12/03/2015 ASSAY THYROID STIM H ORMONE CPT-4: 70365 12/03/2015 COMPREHEN METABOLIC PANEL CPT-4: 55292 12/03/2015 A1C HPLC CPT-4: 64732 12/03/2015 ASSAY OF MAGNESIUM CPT- 4: 82477 12/03/2015 URINALYSIS NONAUTO W /O SCOPE CPT-4: 52867 12/03/2015 URINE CULTURE/ COLON Y COUNT CPT-4: 26351 12/03/2015 URINALYSIS NONAUTO W /O SCOPE CPT-4: 54915 07/30/2013 URINE CULTURE/ COLON Y COUNT CPT-4: 57572 07/30/2013 ROUTINE VENIPUNCTURE CPT-4: 36608 07/30/2013 COMPLETE CBC W/AUTO DIFF WBC CPT-4: 35233 07/30/2013 COMPREHEN METABOLIC PANEL CPT-4: 24302 07/30/2013 C-REACTIVE PROTEIN CPT- 4: 45465 07/30/2013 ROUTINE VENIPUNCTURE CPT-4: 19627 08/20/2012 ASSAY OF FREE THYROXINE CPT-4: 24730 08/20/2012 ASSAY THYROID STIM H ORMONE CPT-4: 61741 08/20/2012 COMPREHEN METABOLIC PANEL CPT-4: 61403 08/20/2012 COMPLETE CBC W/AUTO DIFF WBC CPT-4: 95369 08/20/2012 LIPID PANEL CPT-4: 26670 08/20/2012 A1C GLYCOSYLATED HEM OGLOBIN TEST CPT-4: 88423 08/20/2012 ASSAY, GLUCOSE, BLOO D QUANT CPT-4: 66962 06/21/2012 ASSAY, GLUCOSE, BLOO D QUANT CPT-4: 65332 05/21/2012 ROUTINE VENIPUNCTURE CPT-4: 67900 05/21/2012 COMPREHEN METABOLIC PANEL CPT-4: 74619 05/21/2012 A1C GLYCOSYLATED HEM OGLOBIN TEST CPT-4: 86486 05/21/2012 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 CPT-4: G8456 06/14/2011 PT VIS DOC USE EHR C ER ATCB CPT-4: G8447 06/14/2011 PRESCRIP TRANSMIT A ERX SY CPT-4: G8553 06/14/2011 PT VIS DOC USE EHR C ER ATCB CPT-4: G8447 03/03/2011 PRESCRIP TRANSMIT A ERX SY CPT-4: G8553 03/03/2011 ROUTINE VENIPUNCTURE CPT-4: 56549 01/27/2011 ASSAY OF FREE THYROXINE CPT-4: 40372 01/27/2011 ASSAY THYROID STIM H ORMONE CPT-4: 72130 01/27/2011 PT VIS DOC USE EHR C [...] 1: 158/90 Code: 8480-6 BMI: 34.3 Code: 48786-0 Heart Rate 1: 78 bpm Height: 6'1" Respiratory Rate: 20 bpm SpO2: 98% Temperature: 36.6 (C ) / 97.8 (F) Weight: 260 lbs 11/02/2017 Blood Pressure 1: 134/92 Code: 8480-6 BMI: 32.3 Code: 37464-2 Heart Rate 1: 72 bpm Height: 6'1" SpO2: 98% Temperature: 36.4 (C ) / 97.5 (F) Weight: 245 lbs 07/27/2017 Blood Pressure 1: 136/64 Code: 8480-6 BMI: 30.9 Code: 29648-3 Heart Rate 1: 78 bpm Height: 6'1" Respiratory Rate: 22 bpm SpO2: 98% Temperature: 36.4 (C ) / 97.6 (F) Weight: 234 lbs 04/05/2017 Blood Pressure 1: 126/90 Code: 8480-6 BMI: 33.5 Code: 83632-7 Heart Rate 1: 76 bpm Height: 6'1" Respiratory Rate: 20 bpm SpO2: 97% Temperature: 37.0 (C ) / 98.6 (F) Weight: 254 lbs 06/20/2016 Blood Pressure 1: 122/74 Code: 8480-6 BMI: 35.2 Code: 35439-0 Heart Rate 1: 80 bpm Height: 6'1" Respiratory Rate: 20 bpm SpO2: 97% Temperature: 36.9 (C ) / 98.5 (F) Weight: 267 lbs 02/16/2016 Blood Pressure 1: 136/82 Code: 8480-6 BMI: 36.4 Code: 21523-8 Heart Rate 1: 66 bpm Height: 6'1" Respiratory Rate: 18 bpm SpO2: 96% Temperature: 36.4 (C ) / 97.6 (F) Weight: 276 lbs 12/03/2015 Blood Pressure 1: 122/86 Code: 8480-6 BMI: 39.2 Code: 17598-3 Heart Rate 1: 76 bpm Height: 6' Respiratory Rate: 20 bpm Temperature: 37.1 (C ) / 98.7 (F) Weight: 289 lbs 06/24/2015 Blood Pressure 1: 136/84 Code: 8480-6 BMI: 40.7 Code: 92298-4 Heart Rate 1: 84 bpm Height: 6' Respiratory Rate: 20 bpm Temperature: 36.9 (C ) / 98.4 (F) Weight: 300 lbs 06/11/2015 Blood Pressure 1: 160/82 Code: 8480-6 BMI: 40.4 Code: 09981-9 Heart Rate 1: 82 bpm Height: 6' Respiratory Rate: 22 bpm Temperature: 36.5 (C ) / 97.7 (F) Weight: 298 lbs 07/17/2014 Blood Pressure 1: 132/84 Code: 8480-6 BMI: 41.0 Code: 35470-0 Heart Rate 1: 76 bpm Height: 6'1" Respiratory Rate: 20 bpm Temperature: 36.9 (C ) / 98.4 (F) Weight: 311 lbs 10/31/2013 Blood Pressure 1: 132/80 Code: 8480-6 BMI: 41.2 Code: 22460-5 Heart Rate 1: 84 bpm Height: 6'1" Respiratory Rate: 22 bpm Temperature: 36.1 (C ) / 97.0 (F) Weight: 312 lbs 08/01/2013 Blood Pressure 1: 142/86 Code: 8480-6 BMI: 42.4 Code: 07065-6 Heart Rate 1: 84 bpm Height: 6' [...] 1: 156/108 Code: 8480-6 BMI: 41.9 Code: 30707-2 Heart Rate 1: 92 bpm Height: 6' Respiratory Rate: 20 bpm Temperature: 36.9 (C ) / 98.4 (F) Weight: 309 lbs 02/27/2013 Blood Pressure 1: 162/114 Code: 8480-6 BMI: 41.0 Code: 78932-6 Heart Rate 1: 84 bpm Height: 6' Respiratory Rate: 20 bpm Temperature: 36.7 (C ) / 98.0 (F) Weight: 302 lbs 01/01/2013 Blood Pressure 1: 138/86 Code: 8480-6 BMI: 41.0 Code: 99776-8 Heart Rate 1: 76 bpm Height: 6' Respiratory Rate: 20 bpm Temperature: 36.7 (C ) / 98.0 (F) Weight: 302 lbs 11/27/2012 Blood Pressure 1: 136/92 Code: 8480-6 BMI: 41.2 Code: 39934-1 Heart Rate 1: 80 bpm Height: 6' Respiratory Rate: 20 bpm Temperature: 36.6 (C ) / 97.8 (F) Weight: 304 lbs 08/28/2012 Blood Pressure 1: 126/80 Code: 8480-6 BMI: 41.8 Code: 01711-9 Heart Rate 1: 80 bpm Height: 6' Respiratory Rate: 20 bpm Temperature: 36.4 (C ) / 97.6 (F) Weight: 308 lbs 07/03/2012 Blood Pressure 1: 114/80 Code: 8480-6 BMI: 42.3 Code: 20642-1 Heart Rate 1: 72 bpm Height: 6' Respiratory Rate: 20 bpm Temperature: 36.6 (C ) / 97.9 (F) Weight: 312 lbs 06/21/2012 Blood Pressure 1: 152/100 Code: 8480-6 BMI: 43.3 Code: 15791-4 Heart Rate 1: 72 bpm Height: 6' Temperature: 36.8 (C ) / 98.2 (F) Weight: 319 lbs 05/30/2012 Blood Pressure 1: 122/78 Code: 8480-6 BMI: 43.0 Code: 57567-1 Heart Rate 1: 72 bpm Height: 6' Respiratory Rate: 20 bpm Temperature: 36.7 (C ) / 98.0 (F) Weight: 317 lbs 05/21/2012 Blood Pressure 1: 126/94 Code: 8480-6 BMI: 44.2 Code: 61315-8 Heart Rate 1: 92 bpm Height: 6' Respiratory Rate: 20 bpm Temperature: 36.6 (C ) / 97.9 (F) Weight: 326 lbs 01/24/2012 Blood Pressure 1: 122/90 Code: 8480-6 BMI: 44.5 Code: 14739-0 Heart Rate 1: 76 bpm Height: 6' Respiratory Rate: 20 bpm Temperature: 36.8 (C ) / 98.2 (F) Weight: 328 lbs 09/21/2011 Blood Pressure 1: 116/80 Code: 8480-6 BMI: 44.1 Code: 35764-6 Heart Rate 1: 92 bpm Height: 6' Respiratory Rate: 20 bpm Temperature: 36.7 (C ) / 98.1 (F) Weight: 325 lbs 09/12/2011 Blood Pressure 1: 166/110 Code: 8480-6 BMI: 45.0 Code: 62955-1 Heart Rate 1: 80 bpm Height: 6' Respiratory Rate: 20 bpm Temperature: 36.5 (C ) / 97.7 (F) Weight: 332 lbs 06/14/2011 Blood Pressure 1: 142/84 Code: 8480-6 BMI: 45.6 Code: 79838-1 Heart Rate 1: 104 bpm Height: 6' Respiratory Rate: 20 bpm Temperature: 36.4 (C ) / 97.5 (F) Weight: 336 lbs 03/03/2011 Blood Pressure 1: 130/96 Code: 8480-6 Heart Rate 1: 86 bpm Temperature: 36.1 (C) / 97.0 (F) Weight: 327 lbs 01/27/2011 Blood Pressure 1: 142/96 Code: 8480-6 BMI: 42.0 Code: 08710-5 Heart Rate 1: 72 bpm Height: 6'2" [...] 11/27/2012 in elbow--seen in Urgent care [place] and started on abx cellulitis Onset and [...] Resolution ongoing 06/21/2012 been out of [facility] didn't have diabetes mellitus Blood glucose [...] Encounters Encounter Performer Loca tion Codes Date ([id number]) NURSE/OUTPAT IENT VISIT EST Diagnosis: Kidney transplant status[ICD10: Z94.0] 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] 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.899] Diagnosis: Encounter for aftercare following other organ transplant[ICD10: Z48.298] Diagnosis: Mixed hyperlipidemia[ICD10: E78.2] Galina ROD [employer] CPT-4: 58717 08/24/2018 ([id number]) NURSE/OUTPAT IENT VISIT EST Diagnosis: Type 2 diabetes mellitus with diabetic neuropathy, unspecified[ICD10: E11.40] Diagnosis: Type 2 diabetes mellitus with hyperglycemia[ICD10: E11.65] 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] Diagnosis: Essential (primary) hypertension[ICD10: I10] Galina ROD [employer] CPT-4: 11372 06/29/2018 ([id number]) OFFICE/OUTPA TIENT VISIT EST Diagnosis: Slow transit constipation[ICD10: K59.01] Diagnosis: Epigastric pain[ICD10: R10.13] Diagnosis: Type 2 diabetes mellitus with hyperglycemia[ICD10: E11.65] Coleen SMITH DO [employer] CPT-4: 08103 06/26/2018 ([id number]) OFFICE/OUTPA TIENT VISIT EST Diagnosis: Right lower quadrant pain[ICD10: R10.31] Diagnosis: Type 2 diabetes mellitus with diabetic neuropathy, unspecified[ICD10: E11.40] Coleen SMITH DO [employer] CPT-4: 70016 02/06/2018 ([id number]) OFFICE/OUTPA TIENT VISIT EST Diagnosis: Type 2 diabetes mellitus with hyperglycemia[ICD10: E11.65] Diagnosis: Mixed hyperlipidemia[ICD10: E78.2] Diagnosis: Essential (primary) hypertension[ICD10: I10] Coleen CHENEY [employer] CPT-4: 40104 11/02/2017 ([id number]) PREV VISIT E ST AGE 18-39 Diagnosis: Encounter for general adult medical examination with abnormal findings[ICD10: Z00.01] Diagnosis: Abrasion of right hand, initial encounter[ICD10: S60.511A] 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] Coleen SMITH DO [employer] CPT-4: 70590 07/27/2017 OFFICE/OUTPATIENT SIT EST 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] Diagnosis: Tinea pedis[ICD10: B35.3] Coleen SMITH DO [employer] CPT-4: 30654 04/05/2017 ([id number]) OFFICE/OUTPA TIENT VISIT EST Diagnosis: DM W/O COMPLICATION TYPE I, 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] Diagnosis: Mixed hyperlipidemia[ICD10: E78.2] Diagnosis: Essential (primary) hypertension[ICD10: I10] Galina ARTEAGA [employer] CPT-4: 81099 06/20/2016 ([id number]) OFFICE/OUTPA TIENT VISIT EST Diagnosis: Urinary tract infection, site not specified[ICD10: N39.0] Missy SMITH [facility] CPT-4: 13753 02/16/2016 ([id number]) OFFICE/OUTPA TIENT VISIT EST Diagnosis: Type 2 diabetes mellitus with hyperglycemia[ICD10: E11.65] Diagnosis: Cramp and spasm[ICD10: R25.2] Diagnosis: Hematuria, unspecified[ICD10: R31.9] Galina ARTEAGA [facility] CPT-4: 17585 12/03/2015 OFFICE/OUTPATIENT SIT EST Diagnosis: Type 2 diabetes mellitus with diabetic neuropathy, unspecified[ICD10: E11.40] Alejandra SMITH [facility] CPT-4: 27034 06/24/2015 ([id number]) OFFICE/OUTPA TIENT VISIT EST Diagnosis: Acute sinusitis, unspecified[ICD10: J01.90] Diagnosis: Otitis media, unspecified, bilateral[ICD10: H66.93] Galina ROD [facility] CPT-4: 19273 06/11/2015 ([id number]) OFFICE/OUTPA TIENT VISIT EST Diagnosis: DM W/O COMPLICATION TYPE I[ICD9: 250.01] Diagnosis: HYPERTENSION[ICD9: 401.9] Diagnosis: HYPERLIPIDEMIA NEC/NOS[ICD9: 272.4] Diagnosis: KIDNEY TRANSPLANT STATUS[ICD9: V42.0] Galina ARTEAGA [facility] CPT-4: 24422 07/17/2014 ([id number]) OFFICE/OUTPA TIENT VISIT EST Diagnosis: DM W/O COMPLICATION TYPE I[ICD9: 250.01] Diagnosis: HYPERTENSION[ICD9: 401.9] Galina SMITH [facility] CPT-4: 29384 10/31/2013 ([id number]) OFFICE/OUTPA TIENT VISIT EST Diagnosis: DM W/O COMPLICATION TYPE II[ICD9: 250.00] Diagnosis: HYPERTENSION[ICD9: 401.9] Diagnosis: HYPERLIPIDEMIA NEC/NOS[ICD9: 272.4] Galinamaria luisa [facility] CPT-4: 17203 08/01/2013 OFFICE/OUTPATIENT SIT EST Diagnosis: HEMATURIA NOS[ICD9: 599.70] Diagnosis: Abdominal pain, acute, right lower quadrant[ICD9: 789.03] Diagnosis: KIDNEY TRANSPLANT STATUS[ICD9: V42.0] Alejandra GuptaMargaritashannan RIVAS DO [facility] CPT-4: 27497 07/30/2013 ([id number]) OFFICE/OUTPA TIENT VISIT EST Diagnosis: Uncontrolled hypertension[ICD9: 401.9] Diagnosis: BRIEF DEPRESSIVE REACT[ICD9: 309.0] Galina MEJIALINE SusuKarol ROD ARTE[facility]A [facility] CPT-4: 04427 05/30/2013 ([id number]) OFFICE/OUTPA TIENT VISIT EST Diagnosis: HYPERTENSION[ICD9: 401.9] Diagnosis: Anticipatory grieving[ICD9: 309.0] Galina Luis MEJIALINE SusuKarol ROD [facility] CPT-4: 10532 04/29/2013 ([id number]) OFFICE/OUTPA TIENT VISIT EST Diagnosis: DM W/O COMPLICATION TYPE II, UNCONTROLLED[ICD9: 250.02] Diagnosis: HYPERTENSION[ICD9: 401.9] Diagnosis: HYPOTHYROIDISM[ICD9: 244.9] Diagnosis: KIDNEY TRANSPLANT STATUS[ICD9: V42.0] Galina Luis MEJIALINE Meron [facility] CPT-4: 95281 02/27/2013 OFFICE/OUTPATIENT SIT EST Diagnosis: Paronychia[ICD9: 681.9] Diagnosis: ONYCHOMYCOSIS[ICD9: 110.1] [facility]y [facility] CPT-[facility]: 86697 01/01/2013 ([id number]) OFFICE/OUTPA TIENT VISIT EST Diagnosis: DM W/O COMPLICATION TYPE II, UNCONTROLLED[ICD9: 250.02] Diagnosis: HYPERLIPIDEMIA NEC/NOS[ICD9: 272.4] Diagnosis: HYPERTENSION[ICD9: 401.9] Diagnosis: KIDNEY TRANSPLANT STATUS[ICD9: V42.0] Diagnosis: HYPOTHYROIDISM[ICD9: 244.9] Galina Rodranjanatorri GALINA SusuKarol LUIS [facility] CPT-4: 07921 11/27/2012 ([id number]) OFFICE/OUTPA TIENT VISIT EST Diagnosis: DM W/O COMPLICATION TYPE II[ICD9: 250.00] Diagnosis: HYPOTHYROIDISM[ICD9: 244.9] Diagnosis: HYPERLIPIDEMIA NEC/NOS[ICD9: 272.4] Diagnosis: HYPERTENSION[ICD9: 401.9] Galina SMITH Avuxi [facility] CPT-4: 42204 08/28/2012 ([id number]) OFFICE/OUTPA TIENT VISIT EST Diagnosis: HYPOTHYROIDISM[ICD9: 244.9] Diagnosis: DM W/O COMPLICATION TYPE II, UNCONTROLLED[ICD9: 250.02] Diagnosis: HYPERLIPIDEMIA NEC/NOS[ICD9: 272.4] Diagnosis: KIDNEY TRANSPLANT STATUS[ICD9: V42.0] Diagnosis: HYPERTENSION[ICD9: 401.9] Galina SMITH Avuxi [facility] CPT-4: 20977 08/20/2012 OFFICE/OUTPATIENT SIT EST Diagnosis: DM W/O COMPLICATION TYPE II, UNCONTROLLED[ICD9: 250.02] Diagnosis: HYPERTENSION[ICD9: 401.9] Galina SMITH Av[employer]i [facility] CPT-4: 10684 07/03/2012 OFFICE/OUTPATIENT SIT EST Diagnosis: DM W/O COMPLICATION TYPE II, UNCONTROLLED[ICD9: 250.02] Diagnosis: HYPERTENSION[ICD9: 401.9] Galina SMITH Avuxi [facility] CPT-4: 68340 06/21/2012 OFFICE/OUTPATIENT SIT EST Diagnosis: DM W/O COMPLICATION TYPE II, UNCONTROLLED[ICD9: 250.02] Diagnosis: HYPERTENSION[ICD9: 401.9] Diagnosis: HYPERLIPIDEMIA NEC/NOS[ICD9: 272.4] Diagnosis: KIDNEY TRANSPLANT STATUS[ICD9: V42.0] Galina ARTEAGA Avuxi [facility] CPT-4: 13801 05/30/2012 ([id number]) OFFICE/OUTPA TIENT VISIT EST Diagnosis: HYPERTENSION[ICD9: 401.9] Diagnosis: VISUAL DISTURBANCE[ICD9: 368.9] Galina SMITH Avuxi [facility] CPT-4: 41269 05/21/2012 ([id number]) OFFICE/OUTPA TIENT VISIT EST Diagnosis: HYPERTENSION[ICD9: 401.9] Diagnosis: HYPOTHYROIDISM[ICD9: 244.9] Diagnosis: KIDNEY TRANSPLANT STATUS[ICD9: V42.0] Galina ARTEAGA DO [facility] CPT-4: 90116 01/24/2012 OFFICE/OUTPATIENT SIT EST Diagnosis: DIZZINESS/VERTIGO[ICD9: 780.4] Diagnosis: HYPERTENSION[ICD9: 401.9] Galina SMITH DO [facility] CPT-4: 07427 09/21/2011 ([id number]) OFFICE/OUTPA TIENT VISIT EST Diagnosis: HYPERTENSION[ICD9: 401.9] Diagnosis: HYPOTHYROIDISM[ICD9: 244.9] Diagnosis: HYPERLIPIDEMIA NEC/NOS[ICD9: 272.4] Diagnosis: KIDNEY TRANSPLANT STATUS[ICD9: V42.0] Galina ARTEAGA DO [facility] CPT-4: 95295 09/12/2011 OFFICE/OUTPATIENT SIT EST Diagnosis: HYPOTHYROIDISM[ICD9: 244.9] Diagnosis: HYPERTENSION[ICD9: 401.9] Diagnosis: CEPHALGIA[ICD9: 784.0] Galina SMITH DO [facility] CPT-4: 24649 06/14/2011 OFFICE/OUTPATIENT SIT EST Diagnosis: HYPERTENSION[ICD9: 401.9] Diagnosis: PHARYNGITIS, ACUTE[ICD9: 462] Diagnosis: HYPOTHYROIDISM[ICD9: 244.9] aGlina SMITH DO [facility] CPT-4: 64446 03/03/2011 OFFICE/OUTPATIENT SIT EST Diagnosis: HYPOTHYROIDISM[ICD9: 244.9] Diagnosis: KIDNEY TRANSPLANT STATUS[ICD9: V42.0] Diagnosis: HYPERTENSION[ICD9: 401.9] Diagnosis: SINUSITIS, ACUTE[ICD9: 461.9] Galina SMITH DO [facility] CPT-4: 32850 01/27/2011 ([id number]) OFFICE/OUTPA TIENT VISIT EST Galina ARTEAGA DO [facility] CPT-4: 01283 12/02/2010 Plan of Care Planned Activity Notes C odes Status Date Appointment: [phone] [id number] [facility] 08/24/2018 Appointment: Galina Smith WPtel: [id number] [place] 06/29/2018 Visit Diagnosis Plan: Epigastric [...] cmp but he had labs done in [facility]. will obtain lab results and order additional labs as needed. ICD-9 : 250.02 ICD-10 : E11.65 06/26/2018 Appointment: Coleen Frey [address] [place], [place] [id number] ACUTE ILLNESS 06/26/2018 Visit Diagnosis Plan: Type [...] ICD-10 : R10.31 02/06/2018 Appointment: Coleen Frey [address] [place], [place] [phone] ACUTE ILLNESS 02/06/2018 Patient Education: Patient Medication [...] ICD-10 : E11.65 11/02/2017 Appointment: Coleen Frey [address] [place], [place] [phone] FOLLOW UP 11/02/2017 Patient Education: Patient Medication Summary Completed 11/02/2017 Visit Diagnosis Plan: Abrasion of right hand, initial encounter Discussion: keflex prescribed for infect ion. instructed patient to call or rtc next week if no improvement. keep area clean and dry. ICD-9 : 914.0 ICD-10 : S60.511A 07/27/2017 Visit Diagnosis Plan: [facility] with abnormal findings Discussion: [...] : E11.59 07/27/2017 Appointment: Coleen Frey [address] [facility] Annual Well Visit 07/27/2017 Patient Education: Patient [...] : B35.3 04/05/2017 App[facility]ment: [facility] Frey [address] [id number] FOLLOW UP 04/05/2017 Patient Education: Patient Medication Summary Completed 04/05/2017 Patient Education: Patient Medication Summary Completed 04/05/2017 Care Plan: CBC Pending 04/05/2017 Care Plan: LIPID PANEL LOINC : 21873-0 Pending 04/05/2017 Care Plan: COMPREHEN METABOLIC PANEL LOINC : 13894-2 Pending 04/05/2017 Visit Plan: Patient admits that [...] scale given 06/20/2016 Appointment: Galina Smith WPtel: [address] [place], [place] [id number] 06/16 lm-sp 06/20 lm ~sl FOLLOW UP 06/20/2016 Patient Education: Patient Medication Summary Completed 06/20/2016 Patient Education: Patient Medication Summary Completed 05/04/2016 Care Plan: COMPREHEN METABOLIC PANEL LOINC : 58713-1 Pending 05/04/2016 Care Plan: CBC Pending 05/04/2016 Care Plan: LIPID PANEL LOINC : 84965-2 Pending 05/04/2016 Care Plan: A1C HPLC LO INC : 13754-8 Pending 05/04/2016 Visit Plan: Discussed with Dr Norwood er Treatment as above while awaiting specialist to return his call Push fluids Follow up celine if not improving 02/16/2016 Visit Plan: Discussed with Dr Norwood er Treatment as above while awaiting specialist to return his call Push fluids Follow up celine if not improving 02/16/2016 [facility]ment[id number] [id number] [facility] 02/16/2016 Patient Education: Patient Medication [...] as well 12/03/2015 Appointment: Galina Smith WPtel: [address] [place], [place] [phone] ACUTE ILLNESS 12/03/2015 Patient Education: Patient Medication Summary Completed 12/03/2015 Visit Plan: Labs completed this am in . [place] but do not have results yet. Start Lyrica 75mg PO bid Will Call in a week and let know if pain is improved. 06/24/2015 Visit Plan: Labs completed this am in [facility] but do not have results yet. Start Lyrica 75mg PO bid Will Call in a week and let know if pain is improved. 06/24/2015 Appointment: Alejandra Billy WPtel: [address] [place], [place] [phone] ACUTE ILLNESS 06/24/2015 Patient Education: Patient Medication Summary Completed 06/24/2015 Patient Education: Lyrica - 18+ - No MA NE Completed 06/24/2015 Visit Plan: Saline nasal flushes pr n. Tylenol/Motrin prn headache. Notify if persists/symptoms worsening. Obtain most recent lab Warned of increased BS with prednisone--has sliding scale to use 06/11/2015 Appointment: Galina Smith WPtel: [address] [place], [place] [phone] 06/10/15 ophelia....06/10/15 appt ky jacinto Annual Well Visit 05/14 Patient Education: Patient Medication Summary Completed 06/11/2015 Appointment: Galina Smith WPtel: [address] [place], [place] [phone] [place] FOLLOW UP 10/15/2014 Patient Education: Patient Medication Summary Completed 09/03/2014 Care Plan: COMPREHEN METABOLIC PANEL LOINC : 83904-4 Ordered 09/03/2014 Visit Plan: Obtain most recent lab results Will likely need HbA1C and Lipids if were not done Accuchecks q AC and HS 07/17/2014 Appointment: Galina Smith WPtel: [address] [place], [place] [phone] FOLLOW UP 07/17/2014 Patient Education: Patient Medication Summary Completed 07/17/2014 Appointment: Galina Smith WPtel: [address] [place], [place] [phone] 01/29 01/30 NO SHOW FOLLOW UP 01/30/2014 Visit Plan: Check CMP, HbA1C, CBC, Lipids Pt sees transplant doctor next month Pt is currently just using insulin prn and monitering BS 10/31/2013 Appointment: Galina Smith WPtel: [address] [place] [address] FOLLOW UP 10/31/2013 Patient Education: Patient Medication Summary Completed 10/31/2013 Visit Plan: Continue current meds a nd acuchecks 08/01/2013 Appointment: Galina Smith WPtel: [address] [place], [place] [phone] 07/31 FOLLOW UP 08/01/2013 Patient Education: Patient Medication Summary Completed 08/01/2013 Visit Plan: CBC, CMP, CRP To [facility] for CT abdomen/Pelvis w/o contrast 07/30/2013 Appointment: Alejandra Billy WPtel: [address] [place], [place] [phone] ACUTE ILLNESS 07/30/2013 Patient Education: Patient Medication Summary Completed 07/30/2013 Visit Plan: Restart Diovan--pt says needs PA Continue fluoxetine at 20mg daily 05/30/2013 Appointment: Galina Smith WPtel: [address] [place], [place] [phone] [place] FOLLOW UP 05/30/2013 Patient Education: Patient Medication Summary Completed 05/30/2013 Appointment: Galina Smith WPtel: [address] [place] [address] [place] has appt following day FOLLOW UP 05/29/2013 Visit Plan: Restart Diovan and Amlo dopine as has been out--new rx sent out Trial of Fluoxetine 20mg q AM Stress Reducers 04/29/2013 Appointment: Galina Smith WPtel: [address] [place] [address] 04/26 MOM made appt. confirmed monday ACUTE ILLNESS 04/29/2013 Patient Education: Patient Medication Summary Completed 04/29/2013 Visit Plan: Continue current meds a nd accuchecks Pt going for fasting lab next month 02/27/2013 Appointment: Galina Smith WPtel: [address] [place] [address] FOLLOW UP 02/27/2013 Patient Education: Patient Medication Summary Completed 02/27/2013 Appointment: Viky Acosta WPtel: [address] [place] [address] ACUTE ILLNESS 01/01/2013 Patient Education: Patient Medication Summary Completed 01/01/2013 Visit Plan: Continue current meds C heck fasting lab next week 11/27/2012 Appointment: Galina Smith WPtel: [address] [place] [address] FOLLOW UP 11/27/2012 Patient Education: Patient Medication Summary Completed 11/27/2012 Visit Plan: Lab discussed Continue current meds and accuchecks Pt sees transplant doctor in in October Check fasting lab and fwup in os 08/28/2012 Appointment: Galina Smith WPtel: [address] [place] [address] 08/27 FOLLOW UP 08/28/2012 Patient Education: Patient Medication Summary Completed 08/28/2012 Appointment: Galina Smith WPtel: [address] [place], [place] [phone] LAB 08/20/2012 Patient Education: Patient Medication Summary Completed 08/20/2012 Visit Plan: Continue levemir at cur rent dose with accuchecks Use apidra with sliding scale Check Chem 7 and HbA1C in 2mos 07/03/2012 Appointment: Galina Smith WPtel: [address] [place], [place] [phone] 07/02 FOLLOW UP 07/03/2012 Patient Education: Patient [...] 320mg daily 06/21/2012 Appointment: Galina Smith WPtel: [address] [place], [place] [phone] ACUTE ILLNESS 06/21/2012 Patient Education: Patient Medication Summary Completed 06/21/2012 Visit Plan: Increase Levemir to 75 u sc q PM Continue sliding scale insulin with accuchecks q AC and HS Call in 1wk with BS readings 05/30/2012 Appointment: Galina Smith WPtel: [address] [place], [place] [phone] [facility] Follow Up 05/30/2012 Patient Education: Patient Medication Summary Completed 05/30/2012 Appointment: Galina Smith WPtel: [address] [place], [place] [phone] 05/21 - cancelled appointment for 05/22 because PT was worked in on 05/21 FOLLOW UP 05/22/2012 Visit Plan: Obtain lab done last mo from [facility] See optometry for dilated eye exam and eye pressures today May need CT head pending results of eye evaluation 05/21/2012 Appointment: Galina Smith WPtel: [address] [place], [place] [phone] US WORK IN 05/21/2012 Appointment: Galina Smith WPtel: [address] [place], [place] [phone] [place] LAB 05/21/2012 Patient Education: Patient Medication Summary Completed 05/21/2012 Visit Plan: Continue current meds C heck CBC, CMP, TSH, Free T4 01/24/2012 Visit Plan: Continue current meds O btain most recent lab done at [facility] 01/24/2012 Visit Plan: Continue current meds O btain most recent lab done at [facility] See eye doctor today for dilated exam and eye pressures May need CT head pending dilated eye exam results 01/24/2012 Appointment: Galina Smith WPtel: [address] [place] [address] voicemail FOLLOW UP 01/24/2012 Patient Education: Patient Medication Summary Completed 01/24/2012 Visit Plan: Decrease Norvasc to 2.5 mg daily Check CBC, CMP, TSH, Free T4 09/21/2011 Appointment: Galina Smith WPtel: [address] [place], [place] [phone] ACUTE ILLNESS 09/21/2011 Patient Education: Patient Medication Summary Completed 09/21/2011 Visit Plan: Continue Diovan at curr ent dose Add amlodopine Check Lipids/LFTs with next lab 09/12/2011 Appointment: Galina Smith WPtel: [address] [place], [place] [phone] FOLLOW UP 09/12/2011 Patient Education: Patient Medication Summary Completed 09/12/2011 Visit Plan: Increase Diovan to 320m g po daily Check TSH and Free T4 with kidney lab next week 06/14/2011 Appointment: Galina Smith WPtel: [address] [place], [place] [phone] FOLLOW UP 06/14/2011 Patient Education: Patient Medication Summary Completed 06/14/2011 Visit Plan: Z-pack then new tootheb ivory Start Diovan 03/03/2011 Appointment: Galina Smith WPtel: [phone] [facility] ACUTE ILLNESS 03/03/2011 Patient Education: Patient Medication Summary Completed 03/03/2011 Visit Plan: Check TSH, Free T4 toda y Pt will moniter BP at home See if treatment of sinuses helps headaches 01/27/2011 Appointment: Galina Smith WPtel: [phone] [place], [place] [phone] FOLLOW UP 01/27/2011 Patient Education: Patient Medication Summary Completed 01/27/2011 Visit Plan: Continue current meds a nd proceed with lab per kidney transplant doctor Start Synthroid at 50mcg po daily 12/02/2010 Appointment: Galina Smith WPtel: [phone] [phone] FOLLOW UP 12/02/2010 Patient Education: Patient Medication Summary Completed 12/02/2010 Appointment: Galina Smith WPtel: [facility] Suture Removal 10/20/2009 Patient Education: Patient Medication Summary Completed 10/20/2009 Instructions Comment . Decrease Levemir t o 70u q PM Use Apidra sliding scale as ordered with meals Explained to pt that BS is not too low, but due to the fact that his body is used to BS of 500-700, low 100s feels low to him Restart Diovan 320mg daily . Check CMP, HbA1C, CBC, Lipids Pt sees transplant doctor next month Pt is currently just using insulin prn and monitering BS . Continue Diovan at current dose Add amlodopine Check Lipids/LFTs with next lab . Continue current m eds Check fasting lab next week . Obtain most recent lab results Will likely need HbA1C and Lipids if were not done Accuchecks q AC and HS . Obtain lab done [facility] from [facility] See optometry for dilated eye exam and eye pressures today May need CT head pending results of eye evaluation . Continue levemir a t current dose with accuchecks Use apidra with sliding scale Check Chem 7 and HbA1C in 2mos . Decrease Norvasc t o 2.5mg daily Check CBC, CMP, TSH, Free T4 . Increase Levemir t o 75 u sc q PM Continue sliding scale insulin with accuchecks q AC and HS Call in 1wk with BS readings . Restart Diovan--pt says needs PA Continue fluoxetine at 20mg daily . Continue current m eds Check CBC, CMP, TSH, Free T4 . Continue current eds Obtain most recent lab done at [facility] . Labs completed thi s am in [facility] but do not have results yet. Start Lyrica 75mg PO bid Will Call in a week and let know if pain is improved. . Continue current eds Obtain most recent lab done at [facility] See eye doctor today for dilated exam [...] po daily . Continue current m eds and accuchecks Pt going for fasting lab next month . Check TSH, Free T4 today Pt will moniter BP at home See if treatment of sinuses helps headaches . Z-pack then new to [place] Start Diovan . CBC, CMP, CRP To [facility] for CT abdomen/Pelvis w/o contrast . [...] current m eds and acuchecks . Increase Diovan to 320mg po daily Check TSH and Free T4 with kidney lab next week . Labs completed thi s am in [place] but do not have results yet. Start Lyrica 75mg PO bid Will Call in a week and let know if pain is improved. . Restart Diovan and Amlodopine as has been out--new rx sent out Trial of Fluoxetine 20mg q AM Stress Reducers . Lab discussed Continue current meds and accuchecks Pt sees transplant doctor in in October Check fasting lab and fwup in 3mos
--- OUTSIDE RECORDS SUMMARY | 2019-08-21 00:37 | XMS REPORT | Continuity of Care Document ---
Author Organization Unknown Address Unknown Phone Unavailable Allergies Active Description Code Type Severity Reaction Onset Reported/Identified Relationship to Patient Clinical Status Yes No Known Drug Allergies [id number] Drug Allergy Unknown N/A 07/03/2018 Medications There is no data. Problems Date Dx Coded Attending Type Code Diagnosis Diagnosed By 11/02/2017 MICHEAL LOUIS ACCOUNTANT BOOKKEEPER Ot 571.8 CHRONIC LIVER DIS NEC 11/02/2017 MICHEAL LOUIS ACCOUNTANT BOOKKEEPER Ot 599.70 HEMATURIA, UNSPECIFIED 11/02/2017 MICHEAL LOUIS ACCOUNTANT BOOKKEEPER Ot 789.04 ABDOMINAL PAIN, LEFT LOWER QUADRANT 11/02/2017 MICHEAL LOUIS ACCOUNTANT BOOKKEEPER Ot V42.0 KIDNEY TRANSPLANT STATUS 07/03/2018 ALEXANDRIA CORTES, MATTHEW Esposito Ot Z01.818 ENCOUNTER FOR OTHER PREPROCEDURAL EXAMIN 07/04/2018 ALEXANDRIA CORTES, MATTHEW Esposito Ot Z01.818 ENCOUNTER FOR OTHER PREPROCEDURAL EXAMIN 07/05/2018 MICHEAL LOUIS ACCOUNTANT BOOKKEEPER Ot 571.8 CHRONIC LIVER DIS NEC 07/05/2018 MICHEAL LOUIS ACCOUNTANT BOOKKEEPER Ot 599.70 HEMATURIA, UNSPECIFIED 07/05/2018 MICHEAL LOUIS ACCOUNTANT BOOKKEEPER Ot 789.04 ABDOMINAL PAIN, LEFT LOWER QUADRANT 07/05/2018 MICHEAL LOUISP Ot V42.0 KIDNEY TRANSPLANT STATUS 07/09/2018 ALEXANDRIA CORTES, MATTHEW Esposito Ot E11.9 TYPE 2 DIABETES MELLITUS WITHOUT COMPLIC 07/09/2018 ALEXANDRIA CORTES, MATTHEW Esposito Ot E78.00 PURE HYPERCHOLESTEROLEMIA, UNSPECIFIED 07/09/2018 ALEXANDRIA CORTES, MATTHEW Esposito Ot I1 0 ESSENTIAL (PRIMARY) HYPERTENSION 07/09/2018 MATTHEW IBRAHIM MD Ot K21.0 GASTRO-ESOPHAGEAL REFLUX DISEASE WITH ES 07/09/2018 MATTHEW IBRAHIM MD Ot K25.9 GASTRIC ULCER, UNSP ACUTE OR CHRONIC, 07/09/2018 MATTHEW IBRAHIM MD Ot K29.50 UNSPECIFIED CHRONIC GASTRITIS WITHOUT BL 07/09/2018 MATTHEW IBRAHIM MD Ot K29.80 DUODENITIS WITHOUT BLEEDING 07/09/2018 MATTHEW IBRAHIM MD Ot K44.9 DIAPHRAGMATIC HERNIA WITHOUT OBSTRUCTION 07/09/2018 MATTHEW IBRAHIM MD Ot K59.09 OTHER CONSTIPATION 07/09/2018 MATTHEW IBRAHIM MD Ot 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 07/09/2018 MATTHEW IBRAHIM MD Ot Z79.899 OTHER SHELTER (CURRENT) DRUG THERAPY 07/11/2018 MATTHEW IBRAHIM MD Ot E11.9 TYPE 2 DIABETES MELLITUS WITHOUT COMPLIC 07/11/2018 MATTHEW IBRAHIM MD Ot E78.00 PURE HYPERCHOLESTEROLEMIA, UNSPECIFIED 07/11/2018 MATTHEW IBRAHIM MD Ot I1 0 ESSENTIAL (PRIMARY) HYPERTENSION 07/11/2018 MATTHEW IBRAHIM MD Ot K21.0 GASTRO-ESOPHAGEAL REFLUX DISEASE WITH ES 07/11/2018 MATTHEW IBRAHIM MD Ot K25.9 GASTRIC ULCER, UNSP ACUTE OR CHRONIC, 07/11/2018 MATTHEW IBRAHIM MD Ot K29.50 UNSPECIFIED CHRONIC GASTRITIS WITHOUT BL 07/11/2018 MATTHEW IBRAHIM MD Ot K29.80 DUODENITIS WITHOUT BLEEDING 07/11/2018 MATTHEW IBRAHIM MD Ot K44.9 DIAPHRAGMATIC HERNIA WITHOUT OBSTRUCTION 07/11/2018 MATTHEW IBRAHIM MD Ot K59.09 OTHER CONSTIPATION 07/11/2018 MATTHEW IBRAHIM MD Ot Z79.4 SHELTER (CURRENT) USE OF INSULIN 07/11/2018 MATTHEW IBRAHIM MD Ot Z79.899 OTHER SHELTER (CURRENT) DRUG THERAPY 07/25/2018 MATTHEW IBRAHIM MD Ot 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.1 ATROPHY OF KIDNEY (TERMINAL) 07/25/2018 MATTHEW IBRAHIM MD Ot Z94.0 KIDNEY TRANSPLANT STATUS 08/10/2018 MICHEAL LOUIS ACCOUNTANT BOOKKEEPER Ot 571.8 CHRONIC LIVER DIS NEC 08/10/2018 MICHEAL LOUIS ACCOUNTANT BOOKKEEPER Ot 599.70 HEMATURIA, UNSPECIFIED 08/10/2018 MICHEAL LOUIS ACCOUNTANT BOOKKEEPER Ot 789.04 ABDOMINAL PAIN, LEFT LOWER QUADRANT 08/10/2018 MISSY MICHEAL Esposito MIRNA Ot V42.0 KIDNEY TRANSPLANT STATUS 09/26/2018 BUNNY CORTES, JONG Hernandez Ot Z01.812 ENCOUNTER FOR PREPROCEDURAL LABORATORY E 10/11/2018 JONG HOLLIS MD Ot Z01.812 ENCOUNTER FOR PREPROCEDURAL LABORATORY E 04/16/2019 ADIN ALANIS MD Ot Z48.298 ENCOUNTER FOR AFTERCARE FOLLOWING OTHER 04/16/2019 ADIN ALANIS MD Ot Z79.899 OTHER PRINTING SIGN MACHINE OPERATOR (CURRENT) DRUG THERAPY 04/16/2019 ADIN ALANIS MD Ot Z94.0 KIDNEY TRANSPLANT STATUS 04/16/2019 ADIN ALANIS MD Ot 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 04/17/2019 ADIN ALANIS MD Ot Z48.298 ENCOUNTER FOR AFTERCARE FOLLOWING OTHER 04/17/2019 ADIN ALANIS MD Ot Z79.899 OTHER PRINTING SIGN MACHINE OPERATOR (CURRENT) DRUG THERAPY 04/17/2019 ADIN ALANIS MD Ot Z94.0 KIDNEY TRANSPLANT STATUS 04/17/2019 ADIN ALANIS MD Ot 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 04/26/2019 ADIN ALANIS MD Ot Z48.298 ENCOUNTER FOR AFTERCARE FOLLOWING OTHER 04/26/2019 ADIN ALANIS MD Ot Z79.899 OTHER PRINTING SIGN MACHINE OPERATOR (CURRENT) DRUG THERAPY 04/26/2019 ADIN ALANIS MD Ot Z94.0 KIDNEY TRANSPLANT STATUS 04/26/2019 ADIN LAANIS MD Ot 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 05/21/2019 ELIF SMITH DO Ot R10.31 RIGHT LOWER QUADRANT PAIN 05/31/2019 ADIN ALANIS MD Ot Z48.298 ENCOUNTER FOR AFTERCARE FOLLOWING OTHER 05/31/2019 ADIN ALANIS MD Ot Z79.899 OTHER PRINTING SIGN MACHINE OPERATOR (CURRENT) DRUG THERAPY 05/31/2019 ADIN ALANIS MD Ot Z94.0 KIDNEY TRANSPLANT STATUS 05/31/2019 ADIN ALANIS MD Ot 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 08/17/2019 ALEXANDRIA CORTES, MATTHEW Esposito Ot N26.1 ATROPHY OF KIDNEY (TERMINAL) 08/17/2019 MATTHEW IBRAHIM MD Ot Z94.0 KIDNEY TRANSPLANT STATUS 08/17/2019 BUNNY CORTES, JONG Mary Ot Z01.812 ENCOUNTER FOR PREPROCEDURAL LABORATORY E 08/17/2019 ADIN ALANIS MD, Ot Z48.298 ENCOUNTER FOR AFTERCARE FOLLOWING OTHER 08/17/2019 ADIN ALANIS MD, Ot Z79.899 OTHER PRINTING SIGN MACHINE OPERATOR (CURRENT) DRUG THERAPY 08/17/2019 ADIN ALANIS MD, Ot Z94.0 KIDNEY TRANSPLANT STATUS 08/17/2019 ADIN ALANIS MD, Ot 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 Results Test Result Range Whole blood basic metabolic panel - 09/10 10/28 09:10 Serum or plasma sodium measurement (moles/volume) 141 mmol/L 135-145 Serum or plasma potassium measurement (moles/volume) 4.1 mmol/L 3.6-5.0 Serum or plasma chloride measurement (moles/volume) 110 mmol/L 98-107 Carbon dioxide 19 mmol/L 21-32 Serum or plasma anion gap determination (moles/volume) 12 mmol/L 5-14 Serum or plasma urea nitrogen measurement (mass/volume ) 22 mg/dL 7-18 Serum or plasma creatinine measurement (mass/volume) 1.84 mg/dL 0.60-1.30 Serum or plasma urea nitrogen/creatinine mass ratio 12 NRG Serum or plasma creatinine measurement w ith calculation of estimated glomerular filtration rate 43 NRG Serum or plasma glucose measurement (mass/volume) 67 mg/dL 70-105 Serum or plasma calcium measurement (mass/volume) 10.7 mg/dL 8.5-10.1 Automated blood complete blood count (he mogram) panel - 04/12/19 13:01 Blood leukocytes automated count (number/volume) 7.1 10*3/uL 4.3-11.0 Blood erythrocytes automated count (number/volume) 6.14 10*6/uL 4.35-5.85 Venous blood hemoglobin measurement (mass/volume) 16.4 g/dL 13.3-17.7 Blood hematocrit (volume fraction) 49 % 40-54 Automated erythrocyte mean corpuscular volume 80 [ foz_us] 80-99 Automated erythrocyte mean corpuscular h emoglobin (mass per erythrocyte) 27 pg 25-34 Automated erythrocyte mean corpuscular h emoglobin concentration measurement (mass/volume) 34 g/dL 32-36 Automated erythrocyte distribution width ratio 13. 7 % 10.0- 14.5 Automated blood platelet count (count/volume) 203 10*3/uL 130-400 Automated blood platelet mean volume measurement 11.6 [foz_us] 7.4-10.4 Whole blood basic metabolic panel - 06/30 13:01 Serum or plasma sodium measurement (moles/volume) 140 mmol/L 135-145 Serum or plasma potassium measurement (moles/volume) 4.9 mmol/L 3.6-5.0 Serum or plasma chloride measurement (moles/volume) 106 mmol/L 98-107 Carbon dioxide 22 mmol/L 21-32 Serum or plasma anion gap determination (moles/volume) 12 mmol/L 5-14 Serum or plasma urea nitrogen measurement (mass/volume ) 26 mg/dL 7-18 Serum or plasma creatinine measurement (mass/volume) 2.20 mg/dL 0.60-1.30 Serum or plasma urea nitrogen/creatinine mass ratio 12 NRG Serum or plasma creatinine measurement w ith calculation of estimated glomerular filtration rate 35 NRG Serum or plasma glucose measurement (mass/volume) 232 mg/dL 70-105 Serum or plasma calcium measurement (mass/volume) 9.7 mg/dL 8.5-10.1 Serum or plasma phosphate measurement (m ass/volume) - 04/12/19 13:01 Serum or plasma phosphate measurement (mass/volume) 3.4 mg/dL 2.3-4.7 Magnesium - 04/12/19 13:01 Magnesium 1.8 mg/dL 1.6-2.4 Complete blood count (CBC) with automate d white blood cell (WBC) differential - 05/20/19 15:40 Blood leukocytes automated count (number/volume) 11.3 10*3/uL 4.3-11.0 Blood erythrocytes automated count (number/volume) 5.73 10*6/uL 4.35-5.85 Venous blood hemoglobin measurement (mass/volume) 15.5 g/dL 13.3-17.7 Blood hematocrit (volume fraction) 44 % 40-54 Automated erythrocyte mean corpuscular volume 78 [ foz_us] 80-99 Automated erythrocyte mean corpuscular h emoglobin (mass per erythrocyte) 27 pg 25-34 Automated erythrocyte mean corpuscular h emoglobin concentration measurement (mass/volume) 35 g/dL 32-36 Automated erythrocyte distribution width ratio 13. 3 % 10.0- 14.5 Automated blood platelet count (count/volume) 189 10*3/uL 130-400 Automated blood platelet mean volume measurement 11.6 [foz_us] 7.4-10.4 Automated blood neutrophils/100 leukocytes 79 % 42-75 Automated blood lymphocytes/100 leukocytes 13 % 12-44 Blood monocytes/100 leukocytes 7 % 0-12 Automated blood eosinophils/100 leukocytes 1 % 0-10 Automated blood basophils/100 leukocytes 0 % 0-10 Blood neutrophils automated count (number/volume) 9.0 10*3 1.8-7.8 Blood lymphocytes automated count (number/volume) 1.4 10*3 1.0-4.0 Blood monocytes automated count (number/volume) 0. 8 10*3 0.0-1.0 Automated eosinophil count 0.1 10*3/uL 0 .0-0.3 Automated blood basophil count (count/volume) 0.0 10*3/uL 0.0-0.1 Whole blood basic metabolic panel - 02/28 15:40 Serum or plasma sodium measurement (moles/volume) 132 mmol/L 135-145 Serum or plasma potassium measurement (moles/volume) 4.4 mmol/L 3.6-5.0 Serum or plasma chloride measurement (moles/volume) 101 mmol/L 98-107 Carbon dioxide 22 mmol/L 21-32 Serum or plasma anion gap determination (moles/volume) 9 mmol/L 5-14 Serum or plasma urea nitrogen measurement (mass/volume ) 35 mg/dL 7-18 Serum or plasma creatinine measurement (mass/volume) 2.92 mg/dL 0.60-1.30 Serum or plasma urea nitrogen/creatinine mass ratio 12 NRG Serum or plasma creatinine measurement w ith calculation of estimated glomerular filtration rate 25 NRG Serum or plasma glucose measurement (mass/volume) 278 mg/dL 70-105 Serum or plasma calcium measurement (mass/volume) 9.2 mg/dL 8.5-10.1 Erythrocyte sedimentation rate by ever gren method - 12/09/19 15:40 Erythrocyte sedimentation rate by westergren method 3 mm 0- 15 Complete urinalysis with reflex to cultu re - 05/20/19 16:17 Urine color determination YELLOW NRG Urine clarity determination CLEAR NR G Urine pH measurement by test strip 5.0 5-9 Specific gravity of urine by test strip >= 1.016-1.022 Urine protein assay by test strip, semi-quantitative 3+ NEGATIVE Urine glucose detection by automated test strip 1+ NEGATIVE Erythrocytes detection in urine sediment by light micr oscopy 1+ NEGATIVE Urine ketones detection by automated test strip NE GATIVE NEGATIVE Urine nitrite detection by test strip NEGATIVE NEGATIVE Urine total bilirubin detection by test strip NEGA TIVE NEGATIVE Urine urobilinogen measurement by automated test strip (mass/volume) 0.2 mg/dL < = 1.0 Urine leukocyte esterase detection by dipstick NEG ATIVE NEGATIVE Automated urine sediment erythrocyte cou nt by microscopy (number/high power field) [HPF] NRG Automated urine sediment leukocyte count by microscopy (number/high power field) [HPF] NRG Bacteria detection in urine sediment by light microsco py FEW NRG Squamous epithelial cells detection in u rine sediment by light microscopy 2-5 NRG Crystals detection in urine sediment by light microsco py PRESENT NRG Casts detection in urine sediment by light microscopy PRESENT NRG Mucus detection in urine sediment by light microscopy NEGATIVE NRG Complete urinalysis with reflex to culture YES NRG Amorphous sediment detection in urine sediment by ligh t microscopy MOD AMRIK URATES NRG Hyaline casts detection in urine sediment by light mejia roscopy 2-5 NRG Bacterial urine culture - 05/20/19 16:17 Bacterial urine culture NG NRG Encounters ACCT No. Visit Date/Time Discharge Status Pt. Type Provider Facility Loc./Unit Complaint 06/201605/20/2019 17:11:08 05/20/2019 23:59 :59 CLS Outpatient Elif Smith [id number] 08/17/2019 11:31:00 020 13:02:00 DIS Emergency MANOHAR WATERMAN [facility] ER L FOOT PAIN /SWELLING [id number] 05/20/2019 15:29:00 019 23:59:59 CLS Outpatient ELIF SMITH DO [facility] LAB RLQ PAIN [id number] 04/12/2019 12:21:00 23:59:59 CLS Outpatient ANNABELLE CORTES, ADIN Gar [facility] LAB Z94.0 [id number] 09/24/2018 09:06:00 23:59:59 CLS Outpatient BUNNY CORTES, JONG Hernandez [facility] LAB Z01.812 [id number] 07/12/2018 07:56:00 23:59:59 CLS Outpatient MATTHEW IBRAHIM MD [facility] RAD RUQ PAIN [id number] 07/09/2018 09:39:00 12:15:00 DIS Outpatient MATTHEW IBRAHIM MD [facility] ENDO R10.13/K21.0 [id number] 07/03/2018 05:58:00 13:30:00 DIS Outpatient MATTHEW IBRAHIM MD [facility] PREOP EGD [id number] 07/30/2013 11:34:00 23:59:59 CLS Outpatient MICHEAL LOUIS [facility] RAD ABD PAIN
== END 2019-08-17 13:02 | disposition home or self-care (01) ==
LOC: EDUNIT# 11:30 → ER 11:31
DX: M10.9 Gout, unspecified (principal); I10 Essential (primary) hypertension; E11.9 Type 2 diabetes mellitus without complications; E78.00 Pure hypercholesterolemia, unspecified; Z94.0 Kidney transplant status; Z79.4 Long term (current) use of insulin
CPT/HCPCS: 73630

== ENCOUNTER → 2019-11-20 | Outpatient (CLI) | payer BC ==
[~2019-11-20] MED LIST changes: +HYDR-4226 PO; +PRD20T PO
[2019-11-20 08:48] LABS: TRIGLYCERIDES 565 MG/DL (<150); VLDL CHOLESTEROL 113 MG/DL (5-40)
[2019-11-20 08:53] LABS: CHOLESTEROL 178 MG/DL (< 200)
[2019-11-20 08:54] LABS: HDL CHOLESTEROL 24 MG/DL (40-60)
[2019-11-20 09:09] LABS: HEMOGLOBIN 15.8 G/DL (13.3-17.7); MEAN PLATELET VOLUME 11.9 FL (7.4-10.4); RED CELL DISTRIBUTION WIDTH 13.5 % (10.0-14.5); WHITE BLOOD COUNT 9.9 10^3/uL (4.3-11.0)
[2019-11-20 09:13] LABS: POTASSIUM 4.6 MMOL/L (3.6-5.0)
[2019-11-20 09:14] LABS: CALCIUM 9.5 MG/DL (8.5-10.1)
[2019-11-20 09:18] LABS: PHOSPHORUS 3.1 MG/DL (2.3-4.7)
[2019-11-20 09:19] LABS: CREATININE SERUM 2.46 MG/DL (0.60-1.30)
[2019-11-20 09:21] LABS: MAGNESIUM 1.6 MG/DL (1.6-2.4)
== END ==
LOC: LAB 07:56
DX: Z48.298 Encounter for aftercare following other organ transplant (principal); Z79.899 Other long term (current) drug therapy; Z94.0 Kidney transplant status
CPT/HCPCS: 36415; 80048; 80061; 80197; 82570; 83735; 84100; 84156; 85027

== ENCOUNTER → 2020-02-12 | Outpatient (CLI) | payer BC ==
--- NOTE | 2020-02-12 16:31 | Diagnostic Imaging Report ---
INDICATION: Right lower quadrant pain, postop kidney transplant. FINDINGS: Transplanted kidney is visualized in the right iliac fossa. The transplanted kidney measured 13.2 x 6.7 x 5.7 cm. There is no hydronephrosis. There is some lobulation of the transplanted kidney but no discrete lesion. There is no perinephric fluid collection. Urinary bladder was empty and therefore could not be imaged. IMPRESSION: Unremarkable sonographic appearance of the transplanted kidney with no hydronephrosis. Urinary bladder was not imaged. Dictated by: Dictated on workstation # [id number]
== END ==
LOC: RAD 15:24
PROVIDERS: ATTEND Nurse Practitioner Family
DX: R10.31 Right lower quadrant pain (principal); Z94.0 Kidney transplant status
CPT/HCPCS: 76770

== ENCOUNTER 2020-11-16 20:01 | Emergency (ER) | payer BC ==
[~2020-11-16] VITALS: Ht 185.4 cm; Wt 120.2 kg
[~2020-11-16 20:01] MED LIST changes: +AMLO-250 PO; -AMLO5TAB9 PO
[2020-11-16] MEDS ORDERED: hydrALAZINE (APESOLINE) 20 MG/ML VIAL IV ONE ×2 (20:45→21:45)
[2020-11-16] MEDS ORDERED: amLODIPine 10 MG (NORVASC) TAB PO ONE (20:45)
[2020-11-16 20:48] LABS: BASOPHILS # (AUTO) 0.1 10^3/uL (0.0-0.1); BASOPHILS % (AUTO) 0 % (0-10); EOSINOPHILS # (AUTO) 0.1 10^3/uL (0.0-0.3); EOSINOPHILS % (AUTO) 1 % (0-10); HEMATOCRIT 43 % (40-54); HEMOGLOBIN 14.8 g/dL (13.3-17.7); LYMPHOCYTES # (AUTO) 1.8 10^3/uL (1.0-4.0); LYMPHOCYTES % (AUTO) 16 % (12-44); MEAN CORPUSCULAR HEMOGLOBIN 28 pg (25-34); MEAN CORPUSCULAR HGB CONC 34 g/dL (32-36); MEAN CORPUSCULAR VOLUME 81 fL (80-99); MEAN PLATELET VOLUME 11.8 fL (9.0-12.2); MONOCYTES # (AUTO) 0.8 10^3/uL (0.0-1.0); MONOCYTES % (AUTO) 7 % (0-12); NEUTROPHILS # (AUTO) 8.6 10^3/uL (1.8-7.8); NEUTROPHILS % (AUTO) 75 % (42-75); PLATELET COUNT 230 10^3/uL (130-400); WHITE BLOOD COUNT 11.5 10^3/uL (4.3-11.0)
--- NOTE | 2020-11-16 20:52 | ED General ---
General Chief Complaint: Cardiac/General Problems Stated Complaint: HIGH BLOOD PRESSURE 180/120/HAS GONE DOWN SINCE Nursing Triage Note: pT REPORTS THAT HE HAS NOT TAKEN HIS AMLODIPINE IN APPROXIMATLY 9 MONTHS AND CHECKED HIS BLOOD PRESSURE TODAY AND IT WAS APPROX. 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) History of Present Illness Date Seen by Provider: Nov 16, 2020 Time Seen by Provider: 20:15 Initial Comments PT ARRIVES VIA POV FROM HOME C/O ELEVATED BLOOD PRESSURE STATES A BLOOD PRESSURE CUFF "WAS JUST SITTING THERE" SO HE JUST DECIDED TO CHECK HIS BLOOD PRESSURE--HAS NOT CHECKED IT IN "YEARS" AT HOME STATES BP WAS 180/120, SO MADE HIM COME TO ER PT HAS BEEN DX WITH HTN IN 2009, AND HAS BEEN PRESCRIBED AMLODIPINE BUT QUIT TAKING IT ABOUT 9 MONTHS AGO--"RAN OUT" AND NEVER BOTHERED TO REFILL IT PT STATES HE "FEELS FINE" AND DENIES ANY SYMPTOMS OF ANY KIND NO CHEST PAIN NO PALPITATIONS NO SHORTNESS OF BREATH NO HEADACHE NO VISION CHANGES NO SWELLING IN LEGS/FEET NO DIZZINESS OR SYNCOPE PT IS INSULIN DEPENDENT DIABETIC, DOES NOT ROUTINELY CHECK BLOOD SUGAR PT ALSO HAD A KIDNEY TRANSPLANT IN 2009 STATES HE SEES "KIDNEY DR" ONCE A YEAR IN [facility]--NEXT VISIT IS 11/30/20. STATES HIS CREATININE "RUNS HIGH" HAS YEARLY LAB AND BP /VITALS D[facility] [employer], IS ONLY TIME HIS BLOOD SUGAR GETS CHECKED. LAST TIME WAS IN SEPTEMBER. STATES BP WAS 160'S SYSTOLIC AT THAT TIME. PT WAS A PT OF DR. CAI'S, AND PT STATES HE HAS NOT SEEN HER IN OVER A YEAR--STATES THAT HE WAS DROPPED A PATIENT. PT STATES HE HAD TELEVISIT WITH DR. RIVAS'S OFFICE IN MAY FOR COVID, HAD OUTPATIENT SWAB AND TESTED POSITIVE, BUT DID NOT REQUIRE ANY TREATMENT. HE HAS NOT ATTEMPTED TO ACTUALLY ESTABLISH WITH HER A PATIENT--HAS NEVER MADE AN APPOINTMENT TO SEE HER. PT STATES "I'M GONNA SEE HER TOMORROW THOUGH"--HE HAS NOT ATTEMPTED TO MAKE AN APPOINTMENT--STATES HE CAN JUST GO TO HER OFFICE IN THE MORNING AND HE CAN SEE HER [employer] TOMORROW MUCH LATER, PT ALSO STATES THAT HE DRANK A RED BULL JUST PRIOR TO ARRIVAL Allergies and Home Medications Allergies Coded Allergies: No Known Drug Allergies (Unverified , 07/03/18) Home Medications Amlodipine Besylate 5 Mg Tablet, 5 MG PO DAILY, (Reported) Amlodipine Besylate 10 Mg Tablet, 10 MG PO DAILY Prescribed by: DAYTON NAVA on 11/16/202101 Atorvastatin Calcium 40 Mg Tablet, 40 MG PO HS, (Reported) Hydrocodone/Acetaminophen 1 Each Tablet, 1 TAB PO Q6H PRN for pain Prescribed by: MANOHAR AGUILAR on 08/17/19 1248 Insulin Aspart 300 Units/3 Ml Solution, 0-12 UNITS SQ AC, (Reported) Insulin Detemir 100 Unit/1 Ml Insuln.pen, 80 UNIT SQ BID, (Reported) Multivitamin 1 Each Tablet, 1 EACH PO DAILY, (Reported) Mycophenolate Mofetil 250 Mg Capsule, 1,000 MG PO BID, (Reported) [place]-3S/Dha/Epa/Fish Oil 1 Each Capsule, 1 EACH PO DAILY, (Reported) Polyethylene Glycol 3350 17 Gm Powd.pack, 17 GM PO DAILY, (Reported) Prednisone 20 Mg Tab, 20 MG PO BID Prescribed by: MANOHAR AGUILAR on 08/17/19 1248 Tacrolimus 1 Mg Capsule, 2 MG PO BID, (Reported) Patient Home Medication List Home Medication List Reviewed: Yes Review of Systems Review of Systems Constitutional: no symptoms reported EENTM: no symptoms reported Respiratory: no symptoms reported Cardiovascular: see HPI Gastrointestinal: no symptoms reported Genitourinary: no symptoms reported Musculoskeletal: no symptoms reported Skin: no symptoms reported Psychiatric/Neurological: No Symptoms Reported Hematologic/Lymphatic: No Symptoms Reported Past Pobbpud-Kupkim-Gssipd Hx Past Med/Social Hx: Reviewed and Corrections made Patient Social History Alcohol Use: Occasionally Uses Drug of Choice: DENIES Type Used: Smokeless Tobacco 2nd Hand Smoke Exposure: No Recent Infectious Disease Expo: No Recent Hopitalizations: No Immunizations Up To Date Tetanus Booster (TDap): Unknown Date of Pneumonia Vaccine: Jun 12, 2008 Date of Influenza Vaccine: Mar 19, 2018 Seasonal Allergies Seasonal Allergies: No Past Medical History Surgeries: Yes (KIDNEY TRANSPLANT 2009;L KNEE SX X4;R SHOULDER X2;PERITONEAL/HEMODIALYSIS) Dialysis, Kidney Transplant, Orthopedic Respiratory: No (PT HAD COVID-19 IN MAY 2020-NO HOSPITALIZATION OR TREATMENT) Cardiac: Yes High Cholesterol, Hypertension Neurological: Yes Neuropathy Reproductive Disorders: No Sexually Transmitted Disease: No HIV/AIDS: No Genitourinary: Yes (KIDNEY TRANSPLANT 2009-PERITONEAL & HEMODIALYSIS PRIOR TO TRANSPLANT) Renal Failure Gastrointestinal: Yes Gastroesophageal Reflux, Chronic Constipation Musculoskeletal: Yes (LEFT KNEE SCOPE X4-CHRONIC L KNEE PAIN; RIGHT SHOULDER SCOPE X 2) Endocrine: Yes Diabetes, Insulin dep HEENT: No (GLASSES) Loss of Vision: Bilateral Hearing Impairment: Denies Cancer: No Psychosocial: No Integumentary: No Blood Disorders: No Adverse Reaction/Blood Tranf: No (N/A) Family Medical History No Pertinent Family Hx Physical Exam Vital Signs Vital Signs - First Documented 11/16/20 20:10 Temp 36.0 Pulse 89 Resp 18 B/P (MAP) 189/125 (146) O2 Delivery Room Air Capillary Refill : Less Than 3 Seconds Height, Weight, BMI Height: 6'2.00" Weight: 253lbs. 4.0oz. [id number]; 34.00 BMI Method: General Appearance: No Apparent Distress, WD/WN Neck: Normal Inspection Respiratory: Normal Breath Sounds, No Accessory Muscle Use, No Respiratory Distress Cardiovascular: Regular Rate, Rhythm, No Edema, No Murmur Gastrointestinal: Non Tender, Soft Extremity: Non Tender, No Pedal Edema Neurologic/Psychiatric: Alert, Oriented x3, No Motor/Sensory Deficits, Normal Mood/Affect Skin: Normal Color, Warm/Dry Progress/Results/Core Measures Suspected Sepsis Recent Fever Within 48 Hours: No Infection Criteria Present: None New/Unexplained Altered Menta: No Sepsis Screen: No Definite Risk SIRS Temperature: Pulse: 89 Respiratory Rate: 18 Laboratory Tests 11/16/20 20:30: White Blood Count 11.5H Blood Pressure 189 /125 Mean: 146 Laboratory Tests 11/16/20 20:30: Creatinine 3.18H, Platelet Count 230, Total Bilirubin 0.4 Results/Orders Lab Results Laboratory Tests Test 11/16/20 20:30 11/16/20 21:07 Range/Units White Blood Count 11.5 H 4.3-11.0 10^3/uL Red Blood Count 5.33 4.30-5.52 10^6/uL Hemoglobin 14.8 13.3-17.7 g/dL Hematocrit 43 40-54 % Mean Corpuscular Volume 81 80-99 fL Mean Corpuscular Hemoglobin 28 25-34 pg Mean Corpuscular Hemoglobin Concent 34 32-36 g/dL Red Cell Distribution Width 12.5 10.0-14.5 % Platelet Count 230 130-400 10^3/uL Mean Platelet Volume 11.8 9.0-12.2 fL Immature Granulocyte % (Auto) 0 % Neutrophils (%) (Auto) 75 42-75 % Lymphocytes (%) (Auto) 16 12-44 % Monocytes (%) (Auto) 7 0-12 % Eosinophils (%) (Auto) 1 0-10 % Basophils (%) (Auto) 0 0-10 % Neutrophils # (Auto) 8.6 H 1.8-7.8 10^3/uL Lymphocytes # (Auto) 1.8 1.0-4.0 10^3/uL Monocytes # (Auto) 0.8 0.0-1.0 10^3/uL Eosinophils # (Auto) 0.1 0.0-0.3 10^3/uL Basophils # (Auto) 0.1 0.0-0.1 10^3/uL Immature Granulocyte # (Auto) 0.0 0.0-0.1 10^3/uL Sodium Level 136 135-145 MMOL/L Potassium Level 4.4 3.6-5.0 MMOL/L Chloride Level 104 98-107 MMOL/L Carbon Dioxide Level 19 L 21-32 MMOL/L Anion Gap 13 5-14 MMOL/L Blood Urea Nitrogen 41 H 7-18 MG/DL Creatinine 3.18 H 0.60-1.30 MG/DL Estimat Glomerular Filtration Rate 23 BUN/Creatinine Ratio 13 Glucose Level 135 H 70-105 MG/DL Calcium Level 9.7 8.5-10.1 MG/DL Corrected Calcium 9.8 8.5-10.1 MG/DL Magnesium Level 1.7 1.6-2.4 MG/DL Total Bilirubin 0.4 0.1-1.0 MG/DL Aspartate Amino Transf (AST/SGOT) 19 5-34 U/L Alanine Aminotransferase (ALT/SGPT) 30 0-55 U/L Alkaline Phosphatase 85 40-136 U/L B-Type Natriuretic Peptide 36.4 <100.0 PG/ML Total Protein 7.3 6.4-8.2 GM/DL Albumin 3.9 3.2-4.5 GM/DL Urine Color YELLOW Urine Clarity CLEAR Urine pH 6.0 5-9 Urine Specific [place] 1.025 H 1.016-1.022 Urine Protein 3+ H NEGATIVE Urine Glucose (UA) TRACE H NEGATIVE Urine Ketones NEGATIVE NEGATIVE Urine Nitrite NEGATIVE NEGATIVE Urine Bilirubin NEGATIVE NEGATIVE Urine Urobilinogen 0.2 < = 1.0 MG/DL Urine Leukocyte Esterase NEGATIVE NEGATIVE Urine RBC (Auto) TRACE-I NEGATIVE Urine RBC 0-2 /HPF Urine WBC NONE /HPF Urine Crystals PRESENT H /LPF Urine Amorphous Sediment RARE AMRIK URATES H /LPF Urine Bacteria NEGATIVE /HPF Urine Casts NONE /LPF Urine Mucus NEGATIVE /LPF Urine Culture Indicated NO My Orders Orders - DAYTON NAVA DO Ed Iv/Invasive Line Start (11/16/20 20:24) Ekg Tracing (11/16/20 20:24) Monitor-Rhythm Ecg Trace Only (11/16/20 20:24) Chest 1 View, Ap/Pa Only (11/16/20 20:24) BNP (11/16/20 20:24) Cbc With Automated Diff (11/16/20 20:24) Comprehensive Metabolic Panel (11/16/20 20:24) Magnesium (11/16/20 20:24) Ua Culture If Indicated (11/16/20 20:24) Amlodipine Tablet (Norvasc Tablet) (11/16/20 20:45) Hydralazine Injection (Apresoline Inject (11/16/20 20:45) Hydralazine Injection (Apresoline Inject (11/16/20 21:45) Medications Given in ED Current Medications Medications Dose Ordered Sig/Amy Route Start Time Stop Time Status Last Admin Dose Admin Amlodipine Besylate 10 mg ONCE ONCE PO 11/16/20 20:45 11/16/20 20:46 DC 11/16/20 20:50 10 MG Hydralazine HCl 10 mg ONCE ONCE IV 11/16/20 20:45 11/16/20 20:46 DC 11/16/20 20:45 10 MG Hydralazine HCl 10 mg ONCE ONCE IV 11/16/20 21:45 11/16/20 21:46 DC 11/16/20 21:41 10 MG Vital Signs/I&O 11/16/20 20:10 Temp 36.0 Pulse 89 Resp 18 B/P (MAP) 189/125 (146) O2 Delivery Room Air Capillary Refill : Less Than 3 Seconds Blood Pressure Mean: 146 Progress Note : Progress Note GIVEN AMLODIPINE PO AND HYDRALAZINE IV FOR ELEVATED BLOOD PRESSURE BP DOWN TO 145/92 AT DISMISSAL PT HAD NO COMPLAINTS FOR ENTIRE ER STAY ON REVIEWING LAB RESULTS, PT STATES CREATININE OF 3.1 IS NOT UNUSUAL FOR HIM. ECG Initial ECG Impression Date: Nov 16, 2020 Initial ECG Impression Time: 20:32 Initial ECG Rate: 80 Initial ECG Rhythm: Normal Sinus Diagnostic Imaging Comments CXR--NO ACUTE PROCESS, PER RADIOLOGIST REPORT AT 2057 Reviewed: Reviewed by Me Departure Impression Primary Impression: HTN (hypertension) Additional Impressions: IDDM (insulin dependent diabetes mellitus) S/P kidney transplant Non-compliance Chronic renal failure Disposition: HOME, SELF-CARE Condition: Improved Departure-Patient Inst. Decision time for Depature: 21:53 Referrals: QUYEN RIVAS MD, JACQUELINE S DO (PCP/Family) Primary Care Physician Patient Instructions: DASH Diet, High Blood Pressure (DC), Controlling Your Blood Pressure Through Lifestyle Add. Discharge Instructions: TAKE YOUR MEDICATIONS PRESCRIBED NO CAFFEINE, NO DECONGESTANTS, NO "ENERGY DRINKS", NO STIMULANTS FOLLOW UP WITH DR. RIVAS THIS WEEK FOR FURTHER CARE--CALL IN AM TO SCHEDULE AN APPOINTMENT All discharge instructions reviewed with patient and/or family. Voiced understanding. Scripts Amlodipine Besylate (Amlodipine Besylate) 10 Mg Tablet 10 MG PO DAILY, #7 TAB Prov: DAYTON NAVA DO 11/16/20 DAYTON NAVA DO Nov 16, 2020 20:52
--- NOTE | 2020-11-16 20:55 | Diagnostic Imaging Report ---
EXAMINATION: Chest 1 view HISTORY: HTN COMPARISON: None available. FINDINGS: The lungs are clear without edema or pneumonia. No pleural effusion or pneumothorax. Heart size is normal. IMPRESSION: 1. Clear lungs. Dictated by: Dictated on workstation # [id number]
[2020-11-16 20:59] LABS: ALBUMIN 3.9 GM/DL (3.2-4.5); POTASSIUM 4.4 MMOL/L (3.6-5.0)
[2020-11-16 21:00] LABS: CALCIUM 9.7 MG/DL (8.5-10.1)
[2020-11-16 21:01] LABS: TOTAL PROTEIN 7.3 GM/DL (6.4-8.2)
[2020-11-16] MEDS ORDERED: AMLO-251 PO (21:02)
[2020-11-16 21:03] LABS: BILIRUBIN,TOTAL 0.4 MG/DL (0.1-1.0)
[2020-11-16 21:05] LABS: CREATININE SERUM 3.18 MG/DL (0.60-1.30)
[2020-11-16 21:08] LABS: MAGNESIUM 1.7 MG/DL (1.6-2.4)
[2020-11-16 21:15] LABS: BILIRUBIN,URINE NEGATIVE (NEGATIVE); CLARITY,URINE CLEAR; COLOR,URINE YELLOW; GLUCOSE, URINE (UA) TRACE (NEGATIVE); KETONES,URINE NEGATIVE (NEGATIVE); LEUKOCYTE ESTERASE ,URINE NEGATIVE (NEGATIVE); NITRITE,URINE NEGATIVE (NEGATIVE); PROTEIN,URINE 3+ (NEGATIVE)
[2020-11-16 21:28] LABS: AMORPHOUS SEDIMENT,UR RARE AMOR URATES /LPF; BACTERIA,URINE NEGATIVE /HPF; RBC,URINE 0-2 /HPF
[2020-11-16 21:55] VITALS: BP 145/92
== END 2020-11-16 21:56 | disposition home or self-care (01) ==
LOC: EDUNIT# 20:01 → ER 20:02
DX: I12.9 Hypertensive chronic kidney disease with stage 1 through stage 4 chronic kidney disease, or unspecified chronic kidney disease (principal); E11.9 Type 2 diabetes mellitus without complications; N18.9 Chronic kidney disease, unspecified; E78.00 Pure hypercholesterolemia, unspecified; Z94.0 Kidney transplant status; Z91.19 Patient's noncompliance with other medical treatment and regimen; Z79.4 Long term (current) use of insulin; Z79.52 Long term (current) use of systemic steroids; Z79.899 Other long term (current) drug therapy
CPT/HCPCS: 36415; 71045; 80053; 81000; 83735; 83880; 85025; 93005; 93041

== ENCOUNTER 2021-07-19 14:44 | Emergency (ER) | payer BC ==
[~2021-07-19] VITALS: Ht 187.9 cm; Wt 122.5 kg
[~2021-07-19 14:44] MED LIST changes: +AMLO-251 PO
[2021-07-19] MEDS ORDERED: NS IV 1000 ML 1,000 ML IV SCH (15:45)
[2021-07-19] MEDS ORDERED: TETANUS,DIPTH,PERTUSS P/F (BOOSTRIX) 0.5 ML VIAL IM ONE (15:45)
--- NOTE | 2021-07-19 15:45 | ED Integumentary General ---
General Chief Complaint: Skin/Wound Problems Stated Complaint: LEFT FOOT INFECTION Nursing Triage Note: PT AMB TO TRIAGE WITH COMPLAINT OF LEFT FOOT WOUND. STATES HE HAD STEPPED ON SOMETHING LAST WEEK AND WENT TO [facility] WALKIN IN [facility]. STATES WAS PUT ON KEFLEX. STATES TODAY NOTICED INCREASED REDNESS AND SWELLING. WENT BACK TO WALK IN AND WAS TOLD TO COME TO ER. Source: patient, family () Exam Limitations: no limitations History of Present Illness Date Seen by Provider: Jul 19, 2021 Time Seen by Provider: 15:30 Initial Comments Patient is a 36-year-old male, diabetic, status post kidney transplant who presents to the emergency department today with a chief complaint of left foot pain, swelling and redness. Patient started limping on his left foot Monday of last week, July 12. His started looking at his foot on Monday found a small piece of aluminum just proximal to the fourth and fifth toes on the volar aspect of the foot, she removed it. It continued to hurt and it started draining just a little bit they went to [facility] walk-in clinic on Monday, he was prescribed some Keflex, 500 mg 4 times daily. He has been taking it faithfully since that time. Patient woke up this morning had significantly more pain, swelling and a large amount of redness over the dorsum of the lateral aspect of the left foot. Patient states that he felt a little feverish yesterday. No measured temperatures. No chest pain or shortness of breath. No abdominal pain, nausea vomiting or diarrhea. No urinary complaints. His kidney transplant was in 2009. He has had perfect renal function since that time. He follows out of [facility]. He sees his transplant team yearly. He is on CellCept and Prograf. He is COVID vaccinated. Timing/Duration: week, getting worse Severity: moderate Location: feet Associated Symptoms: edema, fever, flushing Allergies and Home Medications Allergies Coded Allergies: No Known Drug Allergies (Unverified , 07/03/18) Patient Home Medication List Home Medication List Reviewed: Yes Amlodipine Besylate (Amlodipine Besylate) 5 Mg Tablet, 5 MG PO DAILY, (Reported) Entered as Reported by: GARRICK FLORES on 07/03/18 7289 Amlodipine Besylate (Amlodipine Besylate) 10 Mg Tablet, 10 MG PO DAILY Prescribed by: DAYTON NAVA on 11/16/202101 Atorvastatin Calcium (Atorvastatin Calcium) 40 Mg Tablet, 40 MG PO HS, (Reported) Entered as Reported by: GARRICK FLORES on 07/03/18 1329 Hydrocodone/Acetaminophen (Hydrocodone/Acetaminophen 5 MG/325 MG TAB) 1 Each Tablet, 1 TAB PO Q6H PRN for pain Prescribed by: MANOHAR AGUILAR on 08/17/19 1248 Insulin Aspart (Novolog Flexpen) 300 Units/3 Ml Solution, 0-12 UNITS SQ AC, (Reported) Entered as Reported by: GARRICK FLORES on 07/03/18 1329 Insulin Detemir (Levemir Flextouch) 100 Unit/1 Ml Insuln.pen, 80 UNIT SQ BID, (Reported) Entered as Reported by: GARRICK FLORES on 07/03/18 1329 Multivitamin (Daily Multiple Vitamin) 1 Each Tablet, 1 EACH PO DAILY, (Reported) Entered as Reported by: GARRICK FLORES on 07/03/18 1329 Mycophenolate Mofetil (Mycophenolate Mofetil) 250 Mg Capsule, 1,000 MG PO BID, (Reported) Entered as Reported by: GARRICK FLORES on 07/03/18 1329 [place]-3S/Dha/Epa/Fish Oil (Fish Oil 1,200 mg Softgel) 1 Each Capsule, 1 EACH PO DAILY, (Reported) Entered as Reported by: GARRICK FLORES on 07/03/18 1329 Polyethylene Glycol 3350 (Miralax) 17 Gm Powd.pack, 17 GM PO DAILY, (Reported) Entered as Reported by: GARRICK FLORES on 07/03/18 1329 Prednisone (Prednisone) 20 Mg Tab, 20 MG PO BID Prescribed by: MANOHAR AGUILAR on 08/17/19 1248 Tacrolimus (Tacrolimus) 1 Mg Capsule, 2 MG PO BID, (Reported) Entered as Reported by: GARRICK FLORES on 07/03/18 1329 Review of Systems Review of Systems Constitutional: see HPI EENTM: no symptoms reported Cardiovascular: no symptoms reported Gastrointestinal: no symptoms reported Genitourinary: no symptoms reported Musculoskeletal: joint pain (left foot and ankle) Skin: change in color, rash Psychiatric/Neurological: No Symptoms Reported All Other Systems Reviewed Negative Unless Noted: Yes Past Lmyqzop-Vqvabj-Tmvhlx Hx Patient Social History Tobacco Use?: Yes Smokeless Tobacco Frequency: Current Everyday User Use of E-Cig and/or Vaping dev: No Substance use?: No Alcohol Use?: No Pt feels they are or have been: No Immunizations Up To Date Tetanus Booster (TDap): Unknown Influenza Vaccine Up-to-Date: Yes; Up-to-Date First/Initial COVID19 Vaccinat: SEPTEMBER 2020 COVID19 Vaccine 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: [employer] Seasonal Allergies Seasonal Allergies: No Past Medical History Surgeries: Yes (KIDNEY TRANSPLANT 2009;L KNEE SX X4;R SHOULDER X2;PERITONEAL/HEMODIALYSIS) Dialysis, Kidney Transplant, Orthopedic Respiratory: No (PT HAD COVID-19 IN MAY 2020-NO HOSPITALIZATION OR TREATMENT) Cardiac: Yes High Cholesterol, Hypertension Neurological: Yes Neuropathy Reproductive Disorders: No Sexually Transmitted Disease: No HIV/AIDS: No Genitourinary: Yes (KIDNEY TRANSPLANT 2009-PERITONEAL & HEMODIALYSIS PRIOR TO TRANSPLANT) Renal Failure Gastrointestinal: Yes Gastroesophageal Reflux, Chronic Constipation Musculoskeletal: Yes (LEFT KNEE SCOPE X4-CHRONIC L KNEE PAIN; RIGHT SHOULDER SCOPE X 2) Endocrine: Yes Diabetes, Insulin dep HEENT: No (GLASSES) Loss of Vision: Bilateral Hearing Impairment: Denies Cancer: No Psychosocial: No Integumentary: No Blood Disorders: No Adverse Reaction/Blood Tranf: No (N/A) Family Medical History No Pertinent Family Hx Physical Exam Vital Signs Vital Signs - First Documented 07/19/21 14:53 Temp 37.3 Pulse 110 Resp 20 B/P (MAP) 185/131 (149) Pulse Ox 98 O2 Delivery Room Air Capillary Refill : Less Than 3 Seconds General Appearance: WD/WN, no apparent distress HEENT: PERRL/EOMI Neck: normal inspection Cardiovascular: regular rate, rhythm (tachy 110) Respiratory: lungs clear, normal breath sounds, no respiratory distress, no acc essory muscle use Gastrointestinal: non tender, soft Extremities: other (Patient has 2+ edema distal left lower extremity involving the ankle and foot. Large area of erythema involving the forefoot left lateral. He has a little bit of honey crusted discharge between the fourth and fifth toes. Evidence of puncture wound on the plantar surface of the left foot just between the fourth and fifth digits. No active drainage from the area of what appears to have been a puncture; entire foot is very tender to palpation; entire left LE is warm to touch - no calf pain/cords) Neurologic/Psychiatric: alert, normal mood/affect, oriented x 3 Skin: normal color, warm/dry Progress/Results/Core Measures Results/Orders Lab Results Laboratory Tests Test 07/19/21 14:22 Range/Units White Blood Count 16.5 H 4.3-11.0 10^3/uL Red Blood Count 4.91 4.30-5.52 10^6/uL Hemoglobin 13.4 13.3-17.7 g/dL Hematocrit 42 40-54 % Mean Corpuscular Volume 85 80-99 fL Mean Corpuscular Hemoglobin 27 25-34 pg Mean Corpuscular Hemoglobin Concent 32 32-36 g/dL Red Cell Distribution Width 12.4 10.0-14.5 % Platelet Count 280 130-400 10^3/uL Mean Platelet Volume 11.6 9.0-12.2 fL Immature Granulocyte % (Auto) 1 % Neutrophils (%) (Auto) 85 H 42-75 % Lymphocytes (%) (Auto) 6 L 12-44 % Monocytes (%) (Auto) 8 0-12 % Eosinophils (%) (Auto) 1 0-10 % Basophils (%) (Auto) 0 0-10 % Neutrophils # (Auto) 14.0 H 1.8-7.8 10^3/uL Lymphocytes # (Auto) 0.9 L 1.0-4.0 10^3/uL Monocytes # (Auto) 1.3 H 0.0-1.0 10^3/uL Eosinophils # (Auto) 0.1 0.0-0.3 10^3/uL Basophils # (Auto) 0.1 0.0-0.1 10^3/uL Immature Granulocyte # (Auto) 0.1 0.0-0.1 10^3/uL Neutrophils % (Manual) 87 % Lymphocytes % (Manual) 2 % Monocytes % (Manual) 10 % Eosinophils % (Manual) 1 % Blood Morphology Comment NORMAL Erythrocyte Sedimentation Rate 31 H 0-15 MM/HR Prothrombin Time 13.7 12.2-14.7 SEC INR Comment 1.0 0.8-1.4 Activated Partial Thromboplast Time 38 H 24-35 SEC Sodium Level 133 L 135-145 MMOL/L Potassium Level 4.7 3.6-5.0 MMOL/L Chloride Level 100 98-107 MMOL/L Carbon Dioxide Level 21 21-32 MMOL/L Anion Gap 12 5-14 MMOL/L Blood Urea Nitrogen 45 H 7-18 MG/DL Creatinine 3.07 H 0.60-1.30 MG/DL Estimat Glomerular Filtration Rate 26 BUN/Creatinine Ratio 15 Glucose Level 159 H 70-105 MG/DL Lactic Acid Level 0.86 0.50-2.00 MMOL/L Calcium Level 9.5 8.5-10.1 MG/DL Corrected Calcium 9.6 8.5-10.1 MG/DL Total Bilirubin 0.4 0.1-1.0 MG/DL Aspartate Amino Transf (AST/SGOT) 17 5-34 U/L Alanine Aminotransferase (ALT/SGPT) 26 0-55 U/L Alkaline Phosphatase 96 40-136 U/L C-Reactive Protein High Sensitivity 11.90 H 0.00-0.50 MG/DL Total Protein 7.6 6.4-8.2 GM/DL Albumin 3.9 3.2-4.5 GM/DL Micro Results Microbiology 07/19/21 Blood Culture - Preliminary, Resulted No growth 07/19/21 Blood Culture - Preliminary, Resulted No growth My Orders Orders - FRANCO GARCIA MD Cbc With Automated Diff (07/19/21 15:38) Comprehensive Metabolic Panel (07/19/21 15:38) Blood Culture (07/19/21 15:38) Protime With Inr (07/19/21 15:38) Partial Thromboplastin Time (07/19/21 15:38) Ed Iv/Invasive Line Start (07/19/21 15:38) Ed Iv/Invasive Line Start (07/19/21 15:38) Vital Signs Adult Sepsis Patie Q15M (07/19/21 15:38) O2 (07/19/21 15:38) Remove Rings In Anticipation O (07/19/21 15:38) Lactic Acid Analyzer (07/19/21 15:38) Erythrocyte Sedimentation Rate (07/19/21 15:38) Hs C Reactive Protein (07/19/21 15:38) Foot, Left, 3 Views (07/19/21 15:38) Dipht,Pertuss(Acell),Tet Adult (Boostrix (07/19/21 15:45) Ns Iv 1000 Ml (Sodium Chloride 0.9%) (07/19/21 15:45) Vancomycin Injection (Vancomycin Injecti (07/19/21 16:00) Hydrocodone/Apap 5/325 Tablet (Lortab 5 (07/19/21 16:30) Vancomycin Injection (Vancomycin Injecti (07/19/21 16:45) Manual Differential (07/19/21 14:22) Medications Given in ED Vital Signs/I&O 07/19/21 07/19/21 14:53 19:40 Temp 37.3 37.2 Pulse 110 85 Resp 20 16 B/P (MAP) 185/131 (149) 157/90 Pulse Ox 98 99 O2 Delivery Room Air Room Air Blood Pressure Mean: 149 Admisison Planning May Need Admission (Planning): 16:20 Progress Progress Note #1: Time: 16:29 Progress Note Case discussed with Dr. Montero, labs being initiated at this time. Vanco ordered. P.o. hydrocodone for pain. X-rays have been done, I do not see any evidence of periosteal elevation or other injury to the bones of his foot. Progress Note #2: Time: 17:49 Progress Note Out of peds at this facility, spoke with Dr. Montero and advised her. We do have adequate beds available at [facility], I have talked to Dr. Montero. She is going to call me back to discuss the case. [address] Scott, she is agreeable to transfer and admission. Would like a dose of Zosyn given. She will take care orders. Patient's blood pressure is down from triage to 157/91 with a heart rate of 96. Diagnostic Imaging Diagonstic Imaging: Xray Comments [facility] [place] NAME: [facility] REC#: [id number] PT STATUS: REG ER : 1985 PHYSICIAN: FRANCO GARCIA MD ADMIT DATE: 07/19/21/ER Draft Date of Exam:07/19/21 FOOT, LEFT, 3 VIEWS INDICATION: Redness and swelling status post puncture injury. COMPARISON: None. FINDINGS: Three views of the left foot demonstrate no acute fracture or dislocation. There are no focal osseous lesions. There is moderate generalized soft tissue swelling and edema. Joint spaces are well maintained. No radiopaque foreign bodies are seen. IMPRESSION: Moderate generalized soft tissue swelling and edema, but no unexpected radiopaque foreign body or acute osseous abnormality of the left foot. 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 Referrals: QUYEN MONTERO MD (PCP/Family) Primary Care Physician FRANCO GARCIA MD Jul 19, 2021 15:45
[2021-07-19] MEDS ORDERED: VANCOMYCIN INJECTION 1,000 MG in NS (IVPB) 250 ML IV ONE (16:00)
--- NOTE | 2021-07-19 16:29 | Diagnostic Imaging Report ---
INDICATION: Redness and swelling status post puncture injury. COMPARISON: None. FINDINGS: Three views of the left foot demonstrate no acute fracture or dislocation. There are no focal osseous lesions. There is moderate generalized soft tissue swelling and edema. Joint spaces are well maintained. No radiopaque foreign bodies are seen. IMPRESSION: Moderate generalized soft tissue swelling and edema, but no unexpected radiopaque foreign body or acute osseous abnormality of the left foot. Dictated by: Dictated on workstation # [id number]
[2021-07-19] MEDS ORDERED: HYDROcodone/APAP 5 MG/325 MG (LORTAB) TAB PO ONE (16:30)
[2021-07-19] MEDS ORDERED: VANCOMYCIN 2000 MG/NS 500 ML IVPB IV NR ×2 (16:45)
[2021-07-19 16:55] LABS: BASOPHILS # (AUTO) 0.1 10^3/uL (0.0-0.1); BASOPHILS % (AUTO) 0 % (0-10); EOSINOPHILS # (AUTO) 0.1 10^3/uL (0.0-0.3); EOSINOPHILS % (AUTO) 1 % (0-10); HEMATOCRIT 42 % (40-54); HEMOGLOBIN 13.4 g/dL (13.3-17.7); LYMPHOCYTES # (AUTO) 0.9 10^3/uL (1.0-4.0); LYMPHOCYTES % (AUTO) 6 % (12-44); MEAN CORPUSCULAR HEMOGLOBIN 27 pg (25-34); MEAN CORPUSCULAR HGB CONC 32 g/dL (32-36); MEAN CORPUSCULAR VOLUME 85 fL (80-99); MEAN PLATELET VOLUME 11.6 fL (9.0-12.2); MONOCYTES # (AUTO) 1.3 10^3/uL (0.0-1.0); MONOCYTES % (AUTO) 8 % (0-12); NEUTROPHILS % (AUTO) 85 % (42-75); PLATELET COUNT 280 10^3/uL (130-400); WHITE BLOOD COUNT 16.5 10^3/uL (4.3-11.0)
[2021-07-19 17:11] LABS: ALBUMIN 3.9 GM/DL (3.2-4.5); POTASSIUM 4.7 MMOL/L (3.6-5.0)
[2021-07-19 17:12] LABS: CALCIUM 9.5 MG/DL (8.5-10.1); EOSINOPHILS % (MANUAL) 1 %; ERYTHROCYTE SEDIMENTATION RATE 31 MM/HR (0-15); LYMPHOCYTES % (MANUAL) 2 %; MONOCYTES % (MANUAL) 10 %; NEUTROPHILS % (MANUAL) 87 %; PROTHROMBIN TIME PATIENT 13.7 SEC (12.2-14.7); RBC MORPH NORMAL
[2021-07-19 17:13] LABS: TOTAL PROTEIN 7.6 GM/DL (6.4-8.2)
[2021-07-19 17:15] LABS: BILIRUBIN,TOTAL 0.4 MG/DL (0.1-1.0)
[2021-07-19 17:17] LABS: CREATININE SERUM 3.07 MG/DL (0.60-1.30)
[2021-07-19] MEDS ORDERED: PIPERACILLIN SODIUM/TAZOBACTAM 4.5 GM in NS (IVPB) 100 ML IV ONE (18:00)
[2021-07-19 19:40] VITALS: BP 157/90
== END 2021-07-19 19:40 | disposition short-term general hospital (02) ==
LOC: EDUNIT# 14:44 → ER 14:48
DX: L03.116 Cellulitis of left lower limb (principal); I10 Essential (primary) hypertension; E11.40 Type 2 diabetes mellitus with diabetic neuropathy, unspecified; D84.9 Immunodeficiency, unspecified; E78.00 Pure hypercholesterolemia, unspecified; K59.09 Other constipation; F17.290 Nicotine dependence, other tobacco product, uncomplicated; Z23 Encounter for immunization; Z94.0 Kidney transplant status; Z79.4 Long term (current) use of insulin; Z79.899 Other long term (current) drug therapy
CPT/HCPCS: 36415; 73630; 80053; 83605; 85007; 85027; 85610; 85652; 85730; 86141; 87040; 90715

== ENCOUNTER → 2022-04-18 | Outpatient (CLI) | payer BC ==
--- NOTE | 2022-04-18 10:37 | Diagnostic Imaging Report ---
INDICATION: Renal transplant FINDINGS: Right pelvic transplant kidney measures 13.4 x 6.3 x 6.7 cm. Renal cortex is well-preserved. Corticomedullary junction appears normal. No hydronephrosis or calculi. The arcuate resistive indices of 0.7. The peak velocity in the proximal renal artery is 83 cm/s with ratio of 0.58. Mid is 65 cm/s and distal 69 cm/s. [place] kidneys are atrophic with no hydronephrosis. No detectable flow in the [place] kidneys. IMPRESSION: Normal-appearing renal transplant right pelvis. Dictated by: Dictated on workstation # [id number]
== END ==
LOC: RAD 07:48
PROVIDERS: ATTEND Internal Medicine Nephrology
DX: Z94.0 Kidney transplant status (principal); Z48.22 Encounter for aftercare following kidney transplant
CPT/HCPCS: 76770; 93975

== ENCOUNTER 2022-11-17 21:41 | Emergency (ER) | payer BC ==
[~2022-11-17] VITALS: Ht 182 cm; Wt 119.0 kg
[~2022-11-17 21:41] MED LIST changes: -INSU100I29 SQ; +INSU100I30 SQ
--- NOTE | 2022-11-17 22:58 | ED Upper Extremity ---
General Chief Complaint: Upper Extremity Stated Complaint: LEFT ELBOW PAIN/SWELLING Nursing Triage Note: Pt stated using an axe x 30 days ago to cut down a tree, and couple days later "hardly could move it", and still has a pain. Source: patient History of Present Illness Date Seen by Provider: Nov 17, 2022 Time Seen by Provider: 22:00 Initial Comments PT ARRIVES VIA POV FROM HOME IN [place] WITH FEMALE S.O. C/O LEFT ELBOW PAIN AND SWELLING X 1 MONTH STATES A MONTH AGO, HE WAS USING AN AXE AND CUTTING DOWN A TREE NO INJURY AT THAT TIME 2 DAYS LATER, HE BEGAN TO HAVE PAIN AND SWELLING TO THIS ELBOW HE WENT TO A CLINIC IN [place] "SOMETIME BEFORE OCTOBER 26" --HE STATES THEY DID NOT DO ANY TESTS, GAVE HIM AND SLING AND DID NOT GIVE HIM ANY PRESCRIPTIONS HE CONTINUES TO HAVE PAIN AND SWELLING TO THE ELBOW HE HAS NOT BEEN WEARING THE SLING HE HAS NOT TAKEN ANYTHING FOR PAIN AT ANY TIME HE HAS NOT ATTEMPTED TO FOLLOW UP WITH ANYONE SINCE THEN SYMPTOMS ARE NO DIFFERENT TONIGHT NO FEVER OR REDNESS OR STREAKS NO PARESTHESIAS OR MOTOR DEFICITS NO HISTORY OF SIMILAR PT IS RIGHT HANDED PT IS INSULIN DEPENDENT DIABETIC, HE HAS A CONTINUOUS GLUCOSE MONITOR--STATES HIS BLOOD SUGARS RUN IN THE 200-300 RANGE HE DOES NOT HAVE AN INSULIN PUMP--HE GIVES HIMSELF INSULIN SHOTS. HE ALSO HAS CHRONIC RENAL FAILURE--HE HAS HAD A RENAL TRANSPLANT. NOT ON DIALY SIS AT THIS TIME. PCP; DR. RIVAS ORTHOPEDIC SURGEON: DR. DENNIS Allergies and Home Medications Allergies Coded Allergies: No Known Drug Allergies (Unverified , 07/03/18) Patient Home Medication List Home Medication List Reviewed: Yes Amlodipine Besylate (Amlodipine Besylate) 5 Mg Tablet, 5 MG PO DAILY, (Reported) Entered as Reported by: GARRICK FLORES on 07/03/18 1329 Amlodipine Besylate (Amlodipine Besylate) 10 Mg Tablet, 10 MG PO DAILY Prescribed by: DAYTON NAVA on 11/16/202101 Atorvastatin Calcium (Atorvastatin Calcium) 40 Mg Tablet, 40 MG PO HS, (Reported) Entered as Reported by: GARRICK FLORES on 07/03/18 1329 Hydrocodone/Acetaminophen (Hydrocodone/Acetaminophen 5 MG/325 MG TAB) 1 Each Tablet, 1 TAB PO Q6H PRN for pain Prescribed by: MANOHAR AGUILAR on 08/17/19 1248 Insulin Aspart (Novolog Flexpen) 300 Units/3 Ml Solution, 0-12 UNITS SQ AC, (Reported) Entered as Reported by: GARRICK FLORES on 07/03/18 1329 Insulin Detemir (Levemir Flextouch) 100 Unit/1 Ml Insuln.pen, 80 UNIT SQ BID, (Reported) Entered as Reported by: GARRICK FLORES on 07/03/18 1329 Multivitamin (Daily Multiple Vitamin) 1 Each Tablet, 1 EACH PO DAILY, (Reported) Entered as Reported by: GARRICK FLORES on 07/03/18 1329 Mycophenolate Mofetil (Mycophenolate Mofetil) 250 Mg Capsule, 1,000 MG PO BID, (Reported) Entered as Reported by: GARRICK FLORES on 07/03/18 1329 [place]-3S/Dha/Epa/Fish Oil (Fish Oil 1,200 mg Softgel) 1 Each Capsule, 1 EACH PO DAILY, (Reported) Entered as Reported by: GARRICK FLORES on 07/03/18 1329 Polyethylene Glycol 3350 (Miralax) 17 Gm Powd.pack, 17 GM PO DAILY, (Reported) Entered as Reported by: GARRICK FLORES on 07/03/18 1329 Prednisone (Prednisone) 20 Mg Tab, 20 MG PO BID Prescribed by: MANOHAR AGUILAR on 08/17/19 1248 Tacrolimus (Tacrolimus) 1 Mg Capsule, 2 MG PO BID, (Reported) Entered as Reported by: GARRICK FLORES on 07/03/18 1329 Tramadol HCl (Tramadol HCl) 50 Mg Tablet, 50 MG PO Q4H Prescribed by: DAYTON NAVA on 11/17/22 2301 Review of Systems Constitutional: no symptoms reported Musculoskeletal: see HPI Skin: no symptoms reported Psychiatric/Neurological: No Symptoms Reported Past Ykqyklq-Subjad-Vwbkxf Hx Patient Social History Tobacco Use?: No Use of E-Cig and/or Vaping dev: No Substance use?: No Alcohol Use?: Yes Alcohol Frequency: Couple times a week Immunizations Up To Date Tetanus Booster (TDap): Unknown First/Initial COVID19 Vaccinat: SEPTEMBER 2020 Seasonal Allergies Seasonal Allergies: No Past Medical History Surgery/Hospitalization HX: htn, DI, kidney trasnplant Surgeries: Yes (KIDNEY TRANSPLANT 2009;L KNEE SX X4;R SHOULDER X2;PERITONEAL/HEMODIALYSIS) Dialysis, Kidney Transplant, Orthopedic Respiratory: No (PT HAD COVID-19 IN MAY 2020-NO HOSPITALIZATION OR TR EATMENT) Cardiac: Yes High Cholesterol, Hypertension Neurological: Yes Neuropathy Reproductive Disorders: No Sexually Transmitted Disease: No HIV/AIDS: No Genitourinary: Yes (KIDNEY TRANSPLANT 2009-PERITONEAL & HEMODIALYSIS PRIOR TO TRANSPLANT) Renal Failure Gastrointestinal: Yes Gastroesophageal Reflux, Chronic Constipation Musculoskeletal: Yes (LEFT KNEE SCOPE X4-CHRONIC L KNEE PAIN; RIGHT SHOULDER SCOPE X 2) Endocrine: Yes (DX 05/2012) Diabetes, Insulin dep HEENT: No (GLASSES) Loss of Vision: Bilateral Hearing Impairment: Denies Cancer: No Psychosocial: No Integumentary: No Blood Disorders: No Adverse Reaction/Blood Tranf: No (N/A) Family Medical History No Pertinent Family Hx Physical Exam Vital Signs Vital Signs - First Documented 11/17/22 11/17/22 21:44 23:32 Temp 36.8 Pulse 82 Resp 20 B/P (MAP) 216/120 (152) Pulse Ox 100 O2 Delivery Room Air Capillary Refill : Height, Weight, BMI Height: 6'2.00" Weight: 253lbs. 4.0oz. 114.826856yl; 35.00 BMI Method: General Appearance: WD/WN, no apparent distress Cardiovascular: normal peripheral pulses Shoulder: normal inspection Elbow/Forearm: Left (LEFT ELBOW WITH MODERATE SWELLING/EFFUSION AND TENDERNESS. HE HAS LIMITED ROM OF ELBOW DUE TO PAIN. THERE ARE NO WOUNDS, NO ERYTHEMA OR WARMTH OR STREAKS. DISTAL MOTOR/SENSORY/VASCULAR INTACT. ) Wrist: Yes normal inspection Hand: normal inspection Neurologic/Psychiatric: no motor/sensory deficits, alert, normal mood/affect, oriented x 3 Skin: normal color, warm/dry, tattoos/piercings (TATTOOS) Progress/Results/Core Measures Results/Orders My Orders Orders - DAYTON NAVA DO Elbow, Left, 3 Views (11/17/22 22:04) Ketorolac Injection (Toradol Injection) (11/17/22 23:00) Rx-Tramadol Hcl (Rx-Ultram) (11/17/22 22:58) Medications Given in ED Current Medications Medications Dose Ordered Sig/Amy Route Start Time Stop Time Status Last Admin Dose Admin Ketorolac Tromethamine 60 mg ONCE ONCE IM 11/17/22 23:00 11/17/22 23:01 DC 11/17/22 23:21 60 MG Vital Signs/I&O 11/17/22 11/17/22 21:44 23:32 Temp 36.8 36.8 Pulse 82 78 Resp 20 16 B/P (MAP) 216/120 (152) 169/92 Pulse Ox 100 O2 Delivery Room Air Blood Pressure Mean: 152 Progress Progress Note : Progress Note GAVE A SINGLE DOSE OF TORADOL IM HERE, BUT WILL NOT PRESCRIBE ADDITIONAL NSAIDS DUE TO CHRONIC RENAL FAILURE WILL NOT PRESCRIBE STEROIDS DUE TO DIABETES THERE IS NO EVIDENCE OF CELLULITIS AT THIS TIME STRESSED THE IMPORTANCE OF FOLLOW UP WITH ORTHOPEDIC SURGEON FOR FURTHER CARE AND EVALUATION OF THIS PROBLEM PT HAS AN ELASTIC WRAP / BRACE AT HOME WELL A SLING. I ADVISED HIM THAT HE MAY USE BOTH OF THESE FOR COMFORT DISCUSSED TEST RESULTS, ANTICIPATED COURSE, SYMPTOMATIC TREATMENT, MEDICATIONS, NEED FOR FOLLOW UP WITH ORTHOPEDIC SURGEON ( PT IS ESTABLISHED WITH DR. DENNIS ) AND RETURN PRECAUTIONS. REVIEWED PRIOR RECORDS INCLUDING ER VISITS, ADMITS/H&P'S/CONSULTS/DISCHARGE SUMMARIES, TESTS/PROCEDURES Diagnostic Imaging Comments XRAYS LEFT ELBOW--PENDING RADIOLOGIST REVIEW -EFFUSION/SOFT TISSUE SWELLING -NO ACUTE BONY PROCESS Reviewed: Reviewed by Me Departure Impression Primary Impression: Bursitis of left elbow Additional Impressions: IDDM (insulin dependent diabetes mellitus) Chronic renal failure Immunosuppressed status S/P kidney transplant Disposition: HOME, SELF-CARE Condition: Stable Departure-Patient Inst. Decision time for Depature: 22:55 Referrals: QUYEN RIVAS MD (PCP/Family) Primary Care Physician MONSERRAT DENNIS MD Patient Instructions: Bursitis ED Add. Discharge Instructions: RAOUL WRAP AND SLING NEEDED FOR COMFORT CONTINUE YOUR REGULAR MEDICATIONS PRESCRIBED FOLLOW UP WITH DR. DENNIS NEXT WEEK FOR FURTHER CARE, RETURN TO ER IF SYMPTOMS WORSEN All discharge instructions reviewed with patient and/or family. Voiced understanding. Scripts Tramadol HCl (Tramadol HCl) 50 Mg Tablet 50 MG PO Q4H for Pain, #20 TAB Prov: DAYTON NAVA DO 11/17/22 DAYTON NAVA DO Nov 17, 2022 22:58
[2022-11-17] MEDS ORDERED: TRM50T PO (23:00)
[2022-11-17] MEDS ORDERED: KETOROLAC 60 MG/2 ML VIAL IM ONE (23:00)
[2022-11-17] MEDS ORDERED: TRAM50TA3 PO (23:01)
[2022-11-17 23:32] VITALS: BP 169/92
--- NOTE | 2022-11-18 07:25 | Diagnostic Imaging Report ---
INDICATION: Left elbow pain post utilization with an ax one month ago. TECHNIQUE: 3 views of the left elbow CORRELATION STUDY: None FINDINGS: There is normal alignment of the osseous structures of the elbow. No acute fracture. No abnormal joint effusion. Rather prominent posterior soft tissue edema. IMPRESSION: 1. Negative for acute bony abnormality of the elbow. Significant posterior edema may reflect bursitis. Dictated by: Dictated on workstation # [id number]
== END 2022-11-17 23:32 | disposition home or self-care (01) ==
LOC: EDUNIT# 21:41 → ER 21:45
DX: M70.32 Other bursitis of elbow, left elbow (principal); I12.9 Hypertensive chronic kidney disease with stage 1 through stage 4 chronic kidney disease, or unspecified chronic kidney disease; E11.22 Type 2 diabetes mellitus with diabetic chronic kidney disease; N18.9 Chronic kidney disease, unspecified; Z94.0 Kidney transplant status; Z86.16 Personal history of COVID-19; Z92.25 Personal history of immunosuppression therapy; Z28.311 Partially vaccinated for COVID-19; Z79.4 Long term (current) use of insulin
CPT/HCPCS: 73080

== ENCOUNTER 2022-12-20 11:27 | Emergency (ER) | payer BC ==
[~2022-12-20] VITALS: Ht 188 cm; Wt 117.0 kg
[~2022-12-20 11:27] MED LIST changes: +TRAM50TA3 PO; +TRM50T PO
[2022-12-20 11:51] LABS: BASOPHILS # (AUTO) 0.1 10^3/uL (0.0-0.1); BASOPHILS % (AUTO) 1 % (0-10); EOSINOPHILS # (AUTO) 0.1 10^3/uL (0.0-0.3); EOSINOPHILS % (AUTO) 2 % (0-10); HEMATOCRIT 28 % (40-54); HEMOGLOBIN 9.5 g/dL (13.3-17.7); LYMPHOCYTES # (AUTO) 1.1 10^3/uL (1.0-4.0); LYMPHOCYTES % (AUTO) 12 % (12-44); MEAN CORPUSCULAR HEMOGLOBIN 28 pg (25-34); MEAN CORPUSCULAR HGB CONC 34 g/dL (32-36); MEAN CORPUSCULAR VOLUME 82 fL (80-99); MEAN PLATELET VOLUME 11.3 fL (9.0-12.2); MONOCYTES # (AUTO) 0.4 10^3/uL (0.0-1.0); MONOCYTES % (AUTO) 4 % (0-12); NEUTROPHILS # (AUTO) 7.5 10^3/uL (1.8-7.8); NEUTROPHILS % (AUTO) 82 % (42-75); PLATELET COUNT 251 10^3/uL (130-400); WHITE BLOOD COUNT 9.1 10^3/uL (4.3-11.0)
--- NOTE | 2022-12-20 11:53 | ED General ---
General Chief Complaint: Glucose Problems Stated Complaint: HIGH BLOOD SUGAR | CREATIN AT LEVEL 8 Nursing Triage Note: PT HERE AFTER LAB WORK FROM WAS ABNORMAL, HX OF KIDNEY TRANSPLANT AND ONLY ONE KIDNEY. TRANSPLANT IN 2009 Source of Information: Patient Exam Limitations: No Limitations History of Present Illness Date Seen by Provider: Dec 20, 2022 Time Seen by Provider: 11:49 Initial Comments Patient is a 37-year-old male who presents ED for abnormal lab work. Patient had lab work drawn routine yesterday. States his blood sugar was over 600 had a creatinine of 8 from yesterday's lab work. He Was recommended come to ED history of solitary kidney and kidney transplant. History of kidney disease, Alport syndrome, hypertension. Had a kidney removed at [facility] in 2009. Patient did receive dialysis at some point. Not currently on dialysis. States his blood sugar has been typically running in the 100s. Reports diet changes. He is currently asymptomatic. 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 Patient denies of any excessive thirst, frequent urination, visual changes, chest pain, cough, shortness of breath, abdominal pain, vomiting, diarrhea, fever, chills. Patient is currently on CellCept, tacrolimus, sodium bicarb, methylprednisolone, Lasix, amlodipine, carvedilol. Allergies and Home Medications Allergies Coded Allergies: No Known Drug Allergies (Unverified , 07/03/18) Patient Home Medication List Home Medication List Reviewed: Yes Amlodipine Besylate (Amlodipine Besylate) 5 Mg Tablet, 5 MG PO DAILY, (Reported) Entered as Reported by: GARRICK FLORES on 07/03/18 1329 Amlodipine Besylate (Amlodipine Besylate) 10 Mg Tablet, 10 MG PO DAILY Prescribed by: DAYTON NAVA on 11/16/20 210 Atorvastatin Calcium (Atorvastatin Calcium) 40 Mg Tablet, 40 MG PO HS, (Reported) Entered as Reported by: GARRICK FLORES on 07/03/18 1329 Hydrocodone/Acetaminophen (Hydrocodone/Acetaminophen 5 MG/325 MG TAB) 1 Each Tablet, 1 TAB PO Q6H PRN for pain Prescribed by: MANOHAR AGUILAR on 08/17/19 1248 Insulin Aspart (Novolog Flexpen) 300 Units/3 Ml Solution, 0-12 UNITS SQ AC, (Reported) Entered as Reported by: GARRICK FLORES on 07/03/18 1329 Insulin Detemir (Levemir Flextouch) 100 Unit/1 Ml Insuln.pen, 80 UNIT SQ BID, (Reported) Entered as Reported by: GARRICK FLORES on 07/03/18 1329 Multivitamin (Daily Multiple Vitamin) 1 Each Tablet, 1 EACH PO DAILY, (Reported) Entered as Reported by: GARRICK FLORES on 07/03/18 1329 Mycophenolate Mofetil (Mycophenolate Mofetil) 250 Mg Capsule, 1,000 MG PO BID, (Reported) Entered as Reported by: GARRICK FLORES on 07/03/18 1329 Bruce-3S/Dha/Epa/Fish Oil (Fish Oil 1,200 mg Softgel) 1 Each Capsule, 1 EACH PO DAILY, (Reported) Entered as Reported by: GARRICK FLORES on 07/03/18 1329 Polyethylene Glycol 3350 (Miralax) 17 Gm Powd.pack, 17 GM PO DAILY, (Reported) Entered as Reported by: GARRICK FLORES on 07/03/18 1329 Prednisone (Prednisone) 20 Mg Tab, 20 MG PO BID Prescribed by: MANOHAR AGUILAR on 08/17/19 1248 Tacrolimus (Tacrolimus) 1 Mg Capsule, 2 MG PO BID, (Reported) Entered as Reported by: GARRICK FLORES on 07/03/18 1329 Tramadol HCl (Tramadol HCl) 50 Mg Tablet, 50 MG PO Q4H Prescribed by: DAYTON NAVA on 11/17/22 2301 Review of Systems Review of Systems Constitutional: No chills, No diaphoresis, No fever, No malaise, No weakness EENTM: No ear pain, No blurred vision Respiratory: No cough, No dyspnea on exertion Cardiovascular: No chest pain, No edema Gastrointestinal: No RUQ, No abdominal pain, No constipation, No diarrhea, No nausea, No vomiting Genitourinary: No decreased output Musculoskeletal: No back pain, No joint pain Skin: No change in color, No change in hair/nails All Other Systems Reviewed Negative Unless Noted: Yes Past Iaoftgc-Mlwzvu-Gtsihr Hx Immunizations Up To Date Tetanus Booster (TDap): Unknown First/Initial COVID19 Vaccinat: SEPTEMBER 2020 Seasonal Allergies Seasonal Allergies: No Past Medical History Surgery/Hospitalization HX: htn, DI, kidney trasnplant Surgeries: Yes (KIDNEY TRANSPLANT 2009;L KNEE SX X4;R SHOULDER X2;PERITON EAL/HEMODIALYSIS) Dialysis, Kidney Transplant, Orthopedic Respiratory: No (PT HAD COVID-19 IN MAY 2020-NO HOSPITALIZATION OR TREATMENT) Cardiac: Yes High Cholesterol, Hypertension Neurological: Yes Neuropathy Reproductive Disorders: No Sexually Transmitted Disease: No HIV/AIDS: No Genitourinary: Yes (KIDNEY TRANSPLANT 2009-PERITONEAL & HEMODIALYSIS PRIOR TO TRANSPLANT) Renal Failure Gastrointestinal: Yes Gastroesophageal Reflux, Chronic Constipation Musculoskeletal: Yes (LEFT KNEE SCOPE X4-CHRONIC L KNEE PAIN; RIGHT SHOULDER SCOPE X 2) Endocrine: Yes (DX 05/2012) Diabetes, Insulin dep HEENT: No (GLASSES) Loss of Vision: Bilateral Hearing Impairment: Denies Cancer: No Psychosocial: No Integumentary: No Blood Disorders: No Adverse Reaction/Blood Tranf: No (N/A) Family Medical History No Pertinent Family Hx Physical Exam Vital Signs Vital Signs - First Documented 12/20/22 11:37 Temp 36.1 Pulse 72 Resp 20 B/P (MAP) 159/92 (114) Pulse Ox 99 O2 Delivery Room Air Capillary Refill : Less Than 3 Seconds Height, Weight, BMI Height: 6'2.00" Weight: 253lbs. 4.0oz. 114.988384nl; 33.00 BMI Method: General Appearance: No Apparent Distress, WD/WN Eyes: Bilateral Eye Normal Inspection, Bilateral Eye PERRL, Bilateral Eye EOMI HEENT: PERRL/EOMI, TMs Normal, Normal ENT Inspection, Pharynx Normal Neck: Full Range of Motion, Normal Inspection, Non Tender, Supple Respiratory: Chest Non Tender, Lungs Clear, Normal Breath Sounds, No Accessory Muscle Use, No Respiratory Distress Cardiovascular: Regular Rate, Rhythm, No Edema, No Gallop, No JVD, No Murmur Gastrointestinal: Normal Bowel Sounds, No Organomegaly, No Pulsatile Mass, Non Tender, Soft Back: Normal Inspection, No CVA Tenderness, No Vertebral Tenderness Extremity: Normal Capillary Refill, Normal Inspection, Normal Range of Motion Neurologic/Psychiatric: Alert, Oriented x3, No Motor/Sensory Deficits, Normal Mood/Affect, record changer II-XII Norm as Tested Skin: Normal Color, Warm/Dry Focused Exam Lactate Level 12/20/22 11:45: Lactic Acid Level 0.77 Lactic Acid Level Laboratory Tests Test 12/20/22 11:45 Lactic Acid Level 0.77 MMOL/L (0.50-2.00) Progress/Results/Core Measures Suspected Sepsis SIRS Temperature: Pulse: 72 Respiratory Rate: 20 Laboratory Tests 12/20/22 11:45: White Blood Count 9.1 Blood Pressure 159 /92 Mean: 114 12/20/22 11:45: Lactic Acid Level 0.77 Laboratory Tests 12/20/22 11:45: Creatinine 8.47H, Platelet Count 251, Total Bilirubin 0.2 Results/Orders Lab Results Laboratory Tests Test 12/20/22 11:45 12/20/22 11:55 12/20/22 13:16 Range/Units White Blood Count 9.1 4.3-11.0 10^3/uL Red Blood Count 3.41 L 4.30-5.52 10^6/uL Hemoglobin 9.5 L 13.3-17.7 g/dL Hematocrit 28 L 40-54 % Mean Corpuscular Volume 82 80-99 fL Mean Corpuscular Hemoglobin 28 25-34 pg Mean Corpuscular Hemoglobin Concent 34 32-36 g/dL Red Cell Distribution Width 12.9 10.0-14.5 % Platelet Count 251 130-400 10^3/uL Mean Platelet Volume 11.3 9.0-12.2 fL Immature Granulocyte % (Auto) 0 % Neutrophils (%) (Auto) 82 H 42-75 % Lymphocytes (%) (Auto) 12 12-44 % Monocytes (%) (Auto) 4 0-12 % Eosinophils (%) (Auto) 2 0-10 % Basophils (%) (Auto) 1 0-10 % Neutrophils # (Auto) 7.5 1.8-7.8 10^3/uL Lymphocytes # (Auto) 1.1 1.0-4.0 10^3/uL Monocytes # (Auto) 0.4 0.0-1.0 10^3/uL Eosinophils # (Auto) 0.1 0.0-0.3 10^3/uL Basophils # (Auto) 0.1 0.0-0.1 10^3/uL Immature Granulocyte # (Auto) 0.0 0.0-0.1 10^3/uL Sodium Level 132 L 135-145 MMOL/L Potassium Level 3.7 3.6-5.0 MMOL/L Chloride Level 101 98-107 MMOL/L Carbon Dioxide Level 18 L 21-32 MMOL/L Anion Gap 13 5-14 MMOL/L Blood Urea Nitrogen 71 H 7-18 MG/DL Creatinine 8.47 H 0.60-1.30 MG/DL Estimat Glomerular Filtration Rate 8 BUN/Creatinine Ratio 8 Glucose Level 320 H 70-105 MG/DL Glucometer 318 H 206 H 70-110 MG/DL Lactic Acid Level 0.77 0.50-2.00 MMOL/L Calcium Level 7.8 L 8.5-10.1 MG/DL Corrected Calcium 8.3 L 8.5-10.1 MG/DL Magnesium Level 1.7 1.6-2.4 MG/DL Total Bilirubin 0.2 0.1-1.0 MG/DL Aspartate Amino Transf (AST/SGOT) 20 5-34 U/L Alanine Aminotransferase (ALT/SGPT) 25 0-55 U/L Alkaline Phosphatase 185 H 40-136 U/L Total Protein 6.5 6.4-8.2 GM/DL Albumin 3.4 3.2-4.5 GM/DL Beta-Hydroxybutyrate (Chem panel) 0.09 0.00-0.27 MMOL/L Urine Color YELLOW Urine Clarity CLEAR Urine pH 6.0 5-9 Urine Specific [place] 1.010 L 1.016-1.022 Urine Protein 3+ H NEGATIVE Urine Glucose (UA) 3+ H NEGATIVE Urine Ketones NEGATIVE NEGATIVE Urine Nitrite NEGATIVE NEGATIVE Urine Bilirubin NEGATIVE NEGATIVE Urine Urobilinogen 0.2 < = 1.0 MG/DL Urine Leukocyte Esterase NEGATIVE NEGATIVE Urine RBC (Auto) 1+ H NEGATIVE Urine RBC NONE /HPF Urine WBC NONE /HPF Urine Squamous Epithelial Cells NONE /HPF Urine Crystals NONE /LPF Urine Bacteria NEGATIVE /HPF Urine Casts NONE /LPF Urine Mucus NEGATIVE /LPF Urine Culture Indicated NO My Orders Orders - LAWRENCE MURRAY Accucheck Stat ONCE (12/20/22 11:31) Cbc With Automated Diff (12/20/22 11:31) Comprehensive Metabolic Panel (12/20/22 11:31) Lactic Acid Analyzer (12/20/22 11:31) Beta Hydroxybutyrate (12/20/22 11:31) Magnesium (12/20/22 11:31) Ekg Tracing (12/20/22 11:31) Iv/Invasive Line Insertion .IV INSERT (12/20/22 11:31) Ua Culture If Indicated (12/20/22 11:31) Ns Iv 1000 Ml (Sodium Chloride 0.9%) (12/20/22 12:14) Accucheck Stat ONCE (12/20/22 13:13) Vital Signs/I&O 12/20/22 12/20/22 11:37 14:00 Temp 36.1 36.1 Pulse 72 68 Resp 20 20 B/P (MAP) 159/92 (114) 135/87 Pulse Ox 99 99 O2 Delivery Room Air Room Air Capillary Refill : Less Than 3 Seconds Blood Pressure Mean: 114 ECG Comment Sinus rhythm, left ventricular hypertrophy, 67 bpm, QRS duration 101 MS, QTc 414 MS Departure Communication (PCP) Reviewed previous ER visits, H&P, lab testing. Differential diagnosis, acute kidney injury, hyperglycemia, DKA. history of kidney disease, CHF and diabetes insulin-dependent. Presents to ED for abnormal lab work drawn yesterday. 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 2009 patient had a kidney transplant. Patient has a solitary kidney. History of alports syndrome. Patient denies of any current symptoms. CBC, CMP, magnesium, EKG and urinalysis was obtained. EKG without any arrhythmias. CBC grossly unremarkable besides hemoglobin 9.5. Chemistry showed sodium 133, potassium 3.6. BUN of 71, GFR of 8, creatinine 8.47. Normal liver enzymes. Normal anion gap. Urinalysis positive for protein and glucose. Not currently on dialysis. Does take immunosuppressants. Patient was started on a liter of fluid. Blood sugar was just around 300. Does not appear in DKA. Alert and orient x4. Due to the significant change in his kidney function contacted [facility]. Recommended transfer to facility where his transplant and nephrology team were. Patient was accepted by Dr. Rodriguez hospitalist on-call. Patient did initially agree to EMS transport. Was currently waiting for bed placement. Patient states he had to leave to get his kids as well as his . Discussed my concerns as this potentially may worsen and may require dialysis and could lead to . Patient needs further evaluation by his transplant team. Patient acknowledges. Patient states he will drive by POV. Patient did fill out AMA form for EMS transport. Patient blood sugar did improve to 200. Did not give any insulin at this time As he states he just took insulin right before arrival Impression Primary Impression: YOAN (acute kidney injury) Additional Impression: IDDM (insulin dependent diabetes mellitus) Disposition: 07 AGAINST MEDICAL ADVICE Condition: Stable Transfer Transfer Reason: Exceeds level of care Time Spoke to Accepting Phy: 12:[address] Rodriguez Transfer Time: 12:55 Transfer Facility: [facility] Method of Transfer: EMS Departure-Patient Inst. Decision time for Depature: 13:53 Referrals: QUYEN RIVAS MD (PCP/Family) Primary Care Physician Patient Instructions: Kidney Failure LAWRENCE MURRAY Dec 20, 2022 11:53
[2022-12-20 12:01] LABS: BILIRUBIN,URINE NEGATIVE (NEGATIVE); CLARITY,URINE CLEAR; COLOR,URINE YELLOW; GLUCOSE, URINE (UA) 3+ (NEGATIVE); KETONES,URINE NEGATIVE (NEGATIVE); LEUKOCYTE ESTERASE ,URINE NEGATIVE (NEGATIVE); NITRITE,URINE NEGATIVE (NEGATIVE); PROTEIN,URINE 3+ (NEGATIVE)
[2022-12-20 12:02] LABS: ALBUMIN 3.4 GM/DL (3.2-4.5); POTASSIUM 3.7 MMOL/L (3.6-5.0)
[2022-12-20 12:04] LABS: CALCIUM 7.8 MG/DL (8.5-10.1)
[2022-12-20 12:05] LABS: TOTAL PROTEIN 6.5 GM/DL (6.4-8.2)
[2022-12-20 12:07] LABS: BILIRUBIN,TOTAL 0.2 MG/DL (0.1-1.0)
[2022-12-20 12:08] LABS: CREATININE SERUM 8.47 MG/DL (0.60-1.30)
[2022-12-20 12:11] LABS: MAGNESIUM 1.7 MG/DL (1.6-2.4)
[2022-12-20 12:14] LABS: BACTERIA,URINE NEGATIVE /HPF
[2022-12-20] MEDS ORDERED: NS IV 1000 ML 1,000 ML IV STA (12:14)
[2022-12-20 14:00] VITALS: BP 135/87
== END 2022-12-20 14:00 | disposition left against medical advice (07) ==
LOC: EDUNIT# 11:27 → ER 11:29
DX: E11.40 Type 2 diabetes mellitus with diabetic neuropathy, unspecified (principal); N17.9 Acute kidney failure, unspecified; I10 Essential (primary) hypertension; Z79.4 Long term (current) use of insulin; Z79.620 Long term (current) use of immunosuppressive biologic; Z79.899 Other long term (current) drug therapy; Z94.0 Kidney transplant status; Z86.16 Personal history of COVID-19
CPT/HCPCS: 36415; 80053; 81000; 82010; 82947; 83605; 83735; 85025; 93005

== ENCOUNTER → 2023-01-31 | Outpatient (CLI) | payer BC ==
--- NOTE | 2023-01-31 15:15 | Diagnostic Imaging Report ---
EXAMINATION: Right hand 3 views HISTORY: Hand pain COMPARISON: None available. FINDINGS: Alignment is normal. No fracture is seen. Joint spaces are normal. IMPRESSION: 1. No fracture. Dictated by: Dictated on workstation # [id number]
== END ==
LOC: RAD 12:18
PROVIDERS: ATTEND Physician Assistant
DX: M79.641 Pain in right hand (principal)
CPT/HCPCS: 73130